=== PATIENT | male | born 1950 | race Caucasian/White ===

== ENCOUNTER → 2019-05-04 11:35 | Outpatient (CLI) | payer MEDICARE, BC, SELFPAY ==
[2019-05-04 08:56] VITALS: BMI 42.7
[2019-05-04 12:11] LABS: Absolute Lymphocyte Count 2.51 X10^3/uL (0.83-4.51); Basophil# 0.07 X10^3/uL; Basophil% 0.9 % (0-1); Eosinophil# 0.33 X10^3/uL; Eosinophils% 4.3 % (0-5); Hematocrit 47.7 % (40-54); Hemoglobin 15.7 g/dL (13.0-16.5); Lymphocyte # 2.51 X10^3/ul (4.0); Lymphocyte % 32.7 % (19-41); Mean Corp Hgb Conc 32.9 g/dL (32-36); Monocyte# 0.69 X10^3/uL; NRBC Flagged by Analyzer 0 % (0-5); Neutrophil # 4.02 X10^3/uL (2.7-7.7); Neutrophil % 52.4 % (47-70); Platelet Count 195 K/mm3 (150-450); RBC Distribution Width CV 13.7 % (11.6-14.6); RBC Distribution Width SD 46.2 fl (35.1-43.9); Red Blood Count 5.24 M/mm3 (4.6-6.2); White Blood Count 7.7 K/mm3 (4.4-11.0)
[2019-05-07 05:06] LABS: Alternaria alternata <0.10 kU/L (Class 0); Bermuda Grass <0.10 kU/L (Class 0); Bluegrass, Kentucky <0.10 kU/L (Class 0); Cat Hair/Dander, Standard <0.10 kU/L (Class 0); D farinae Mite <0.10 kU/L (Class 0); D pteronyssinus <0.10 kU/L (Class 0); Dog Epithelia <0.10 kU/L (Class 0); Elm, American White <0.10 kU/L (Class 0); Oak, White <0.10 kU/L (Class 0); Plantain, English <0.10 kU/L (Class 0); Ragweed, Short/Common <0.10 kU/L (Class 0)
[2019-05-07 13:50] LABS: Mouse Urine <0.10 kU/L (Class 0)
[2019-05-07 20:07] LABS: Aspirgillus flavus Negative (Neg:<1:1); Aspirgillus fumigatus Negative (Neg:<1:1); Aspirgillus niger Negative (Neg:<1:1)
[2019-05-08 09:08] LABS: Immunoglobulin E 13 IU/mL (6-495)
== END ==
PROVIDERS: Family Provider Internal Medicine; PCP Internal Medicine; Referring Provider Nurse Practitioner Acute Care; Visit Provider Nurse Practitioner Acute Care
DX: J45.909 Unspecified asthma, uncomplicated (principal); Z68.41 Body mass index [BMI] 40.0-44.9, adult
CPT/HCPCS: 36415; 82785; 85025; 86003; 86606

== ENCOUNTER → 2019-05-13 10:52 | Outpatient (CLI) | payer MEDICARE, BC, SELFPAY ==
[2019-05-13 10:06] VITALS: BMI 42.7
[2019-05-13 10:54] LABS: Bacteria 0 SEEN /hpf (None Seen); Mucous, Urine 0 SEEN /hpf (<or=2+); Red Blood Cells-Urine 0 SEEN /hpf (0-5); Squamous Epithelial Cells - UA 0 SEEN /hpf (0-5); White Blood Cells 0 SEEN /hpf (0-5)
--- NOTE | 2019-05-13 11:26 | EKG12_ITS ---
Test Reason : ROUTINE Blood Pressure : / mmHG Vent. Rate : 066 BPM Atrial Rate : 066 BPM P-R Int : 164 ms QRS Dur : 112 ms QT Int : 396 ms P-R-T Axes : 057 037 018 degrees QTc Int : 415 ms Normal sinus rhythm Incomplete right bundle branch block Borderline ECG Confirmed by JEFFY DEAN, BARRY ([id number]), school photograph editor TERESA ESTRELLA ([id number]) on 05/17/2019 2:43:43 PM Referred By: Justin Massey Confirmed By:BARRY BARDALES MD
[2019-05-13 12:42] LABS: Absolute Neutrophil Count 5.9 X10^3/uL (2.0-7.7); Basophil# 0.08 X10^3/uL; Basophil% 0.8 % (0-1); Eosinophil# 0.37 X10^3/uL; Eosinophils% 3.8 % (0-5); Hematocrit 49.9 % (40-54); Hemoglobin 15.7 g/dL (13.0-16.5); Lymphocyte % 24.4 % (19-41); Mean Corp Hgb Conc 31.5 g/dL (32-36); Mean Corpuscular Hgb 29.5 pg (27.0-32.0); Mean Corpuscular Volume 93.8 fL (80-94); Mean Platelet Vol. 10.3 fl (6.2-12.0); Monocyte# 0.97 X10^3/uL; Monocyte% 9.8 % (0-10); NRBC Flagged by Analyzer 0 % (0-5); Neutrophil % 59.9 % (47-70); Platelet Count 216 K/mm3 (150-450); RBC Distribution Width CV 14.1 % (11.6-14.6); RBC Distribution Width SD 48.2 fl (35.1-43.9); Red Blood Count 5.32 M/mm3 (4.6-6.2); White Blood Count 9.9 K/mm3 (4.4-11.0)
[2019-05-13 13:16] LABS: Color, Urine Yellow (Yellow); Glucose, Dipstick Normal (Normal); Ketone-Dipstick Negative (Negative); Leukocyte Esterase-Dipstick Negative /ul (Negative); Nitrite-Dipstick Negative (Negative); Occult Blood-Urine Negative /ul (Negative); Protein-Dipstick 15 mg/dl (Negative); Urine Bilirubin Dipstick Negative (Negative); Urine Clarity Clear (Clear); Urine Urobilinogen Normal (Normal)
[2019-05-13 13:42] LABS: ALB/GLOB Ratio 1.1 RATIO (0.9-2.4); AST(SGOT) 26 U/L (15-37); Alanine Aminotransfer ALT/SGPT 48 U/L (16-61); Albumin, Serum 3.9 g/dL (3.2-5.0); Alkaline Phosphatase 88 U/L (45-117); Anion Gap 8 (5-15); BUN 22 mg/dL (7-18); BUN/Creat Ratio 18.3 RATIO (10-20); Calcium,Total 9.6 mg/dL (8.5-10.1); Chloride 102 mmol/L (98-107); Cholesterol 172 mg/dL (200); EST Glomerular Filtration Rate 64 mL/min (>60); Est Glom Filt Rate - Afr Amer 78 mL/min (>60); Globulin 3.6 g/dL (2.2-4.2); Glucose 78 mg/dL (74-106); High Density Lipoprotein 48 mg/dL; Potassium 4.1 mmol/L (3.5-5.1); Protein, Total 7.5 g/dL (6.4-8.2); Sodium Level 139 mmol/L (136-145); Triglycerides 192 mg/dL; Uric Acid 4.7 mg/dL (3.5-7.2); Very Low Density Lipoprotein 38 mg/dL (5-40)
[2019-05-13 15:02] LABS: Hemoglobin A1c 5.9 % (4.2-6.3)
== END ==
PROVIDERS: Family Provider Internal Medicine; PCP Internal Medicine; Referring Provider Internal Medicine; Visit Provider Internal Medicine
DX: I10 Essential (primary) hypertension (principal); K21.9 Gastro-esophageal reflux disease without esophagitis; R73.03 Prediabetes; M10.9 Gout, unspecified
CPT/HCPCS: 36415; 80053; 80061; 81001; 83036; 84550; 85025; 93005

== ENCOUNTER → 2019-05-24 07:08 | Outpatient (CLI) | payer MEDICARE, BC, SELFPAY ==
[2019-05-04 08:56] VITALS: BMI 42.7
[2019-05-13 10:06] VITALS: BMI 42.7
--- NOTE | 2019-05-25 09:51 | PFT ---
INTRODUCTION: The patient is a 68-year-old male that presents for pulmonary function studies secondary to a diagnosis of asthma. Respiratory therapy reports good patient effort. Bronchodilators were used during testing. INTERPRETATION: Forced expiration spirometry demonstrates no evidence of a large airways obstructive ventilatory defect. There was no significant response to aerosolized bronchodilators. Spirograms are of good quality but do not plateau indicating slow emptying of the lungs. Body plethysmography was performed and reveals lung volumes to be within normal limits. Diffusing capacity by single breath CO was also within normal limits at 88% of predicted. IMPRESSION: Normal spirometry, lung volumes and diffusing capacity.
== END ==
PROVIDERS: Family Provider Internal Medicine; PCP Internal Medicine; Referring Provider Nurse Practitioner Acute Care; Visit Provider Nurse Practitioner Acute Care
DX: J45.909 Unspecified asthma, uncomplicated (principal)
CPT/HCPCS: 94060; 94726; 94729

== ENCOUNTER → 2019-05-30 20:04 | Outpatient (CLI) | payer MEDICARE, BC, SELFPAY ==
[2019-05-04 08:56] VITALS: BMI 42.7
== END ==
PROVIDERS: Family Provider Internal Medicine; PCP Internal Medicine; Referring Provider Nurse Practitioner Acute Care; Visit Provider Nurse Practitioner Acute Care
DX: G47.33 Obstructive sleep apnea (adult) (pediatric) (principal)
CPT/HCPCS: 95811

== ENCOUNTER → 2019-06-22 09:18 | Outpatient (CLI) | payer MEDICARE, BC, SELFPAY ==
[2019-06-22 08:45] VITALS: BMI 42.3
[2019-06-22 12:43] LABS: PSA,Total - Annual Screen 0.29 ng/mL (0.00-4.00)
== END ==
PROVIDERS: Family Provider Internal Medicine; PCP Internal Medicine; Visit Provider Internal Medicine
DX: N40.0 Benign prostatic hyperplasia without lower urinary tract symptoms (principal)
CPT/HCPCS: 36415; 84153; G0103

== ENCOUNTER → 2019-07-20 10:19 | Outpatient (CLI) | payer MEDICARE, BC, SELFPAY ==
[2019-07-20 09:29] VITALS: BMI 42.3
[2019-07-20 10:51] LABS: Absolute Lymphocyte Count 2.31 X10^3/uL (0.83-4.51); Absolute Neutrophil Count 4.3 X10^3/uL (2.0-7.7); Basophil# 0.03 X10^3/uL; Basophil% 0.4 % (0-1); Eosinophil# 0.15 X10^3/uL; Hematocrit 48.1 % (40-54); Hemoglobin 15.5 g/dL (13.0-16.5); Lymphocyte # 2.31 X10^3/ul (4.0); Lymphocyte % 30.4 % (19-41); Mean Corp Hgb Conc 32.2 g/dL (32-36); Mean Corpuscular Hgb 29.5 pg (27.0-32.0); Mean Corpuscular Volume 91.4 fL (80-94); Mean Platelet Vol. 10.1 fl (6.2-12.0); Monocyte# 0.81 X10^3/uL; Monocyte% 10.7 % (0-10); NRBC Flagged by Analyzer 0 % (0-5); Neutrophil # 4.26 X10^3/uL (2.7-7.7); Neutrophil % 56.1 % (47-70); Platelet Count 200 K/mm3 (150-450); RBC Distribution Width CV 13.4 % (11.6-14.6); RBC Distribution Width SD 45.1 fl (35.1-43.9); Red Blood Count 5.26 M/mm3 (4.6-6.2); White Blood Count 7.6 K/mm3 (4.4-11.0)
== END ==
PROVIDERS: Family Provider Internal Medicine; PCP Internal Medicine; Referring Provider Nurse Practitioner Acute Care; Visit Provider Nurse Practitioner Acute Care
DX: D72.1 Eosinophilia (principal)
CPT/HCPCS: 36415; 85025

== ENCOUNTER → 2019-08-23 09:45 | Outpatient (CLI) | payer MEDICARE, BC, SELFPAY ==
[2019-07-20 09:29] VITALS: BMI 42.3
[2019-08-23 09:52] VITALS: BP 136/66; PULSE 83; RESP 18; TEMP 36.1; O2SAT 92; BMI 44.1
[2019-08-23] MEDS: Mepolizumab 100 MG VIAL SQ (10:14)
[2019-08-23 12:26] VITALS: BP 126/76; RESP 62
== END ==
PROVIDERS: PCP Internal Medicine; Referring Provider Nurse Practitioner Acute Care; Visit Provider Nurse Practitioner Acute Care
DX: J45.50 Severe persistent asthma, uncomplicated (principal)
CPT/HCPCS: 96372; J2182

== ENCOUNTER → 2019-09-20 | Outpatient (CLI) | payer MEDICARE, BC, SELFPAY ==
[2019-08-23 09:52] VITALS: BMI 44.1
[2019-08-25 07:32] VITALS: BMI 44.6
[2019-09-20 10:04] VITALS: BP 139/63; PULSE 91; RESP 18; TEMP 36.1; O2SAT 93; BMI 43.7
[2019-09-20] MEDS: Mepolizumab 100 MG VIAL SQ (10:09)
[2019-09-20 10:37] VITALS: BP 126/64; PULSE 75; RESP 16; TEMP 36.3; O2SAT 94
== END | disposition home or self-care (01) ==
LOC: MEDOUTP 09:56
PROVIDERS: PCP Internal Medicine; Referring Provider Nurse Practitioner Acute Care; Visit Provider Nurse Practitioner Acute Care
DX: J45.50 Severe persistent asthma, uncomplicated (principal)
CPT/HCPCS: 96372; J2182

== ENCOUNTER → 2019-10-17 15:21 | Outpatient (CLI) | payer MEDICARE, BC, SELFPAY ==
[2019-08-25 07:32] VITALS: BMI 44.6
[2019-10-14 14:37] VITALS: BMI 43.7
[2019-10-17 15:36] VITALS: BP 133/67; PULSE 92; RESP 16; TEMP 36.1; O2SAT 100; BMI 44.4
[2019-10-17] MEDS: Mepolizumab 100 MG VIAL SQ (15:42)
== END ==
PROVIDERS: PCP Internal Medicine; Referring Provider Nurse Practitioner Acute Care; Visit Provider Nurse Practitioner Acute Care
DX: J45.50 Severe persistent asthma, uncomplicated (principal)
CPT/HCPCS: 96372; J2182

== ENCOUNTER → 2019-11-01 09:00 | Outpatient (CLI) | payer MEDICARE, BC, SELFPAY ==
[2019-10-04 13:35] VITALS: BMI 43.7
[2019-10-17 15:36] VITALS: BMI 44.4
--- NOTE | 2019-11-01 09:02 | ECHOCS_ITS ---
Reason For Study: SOB Procedure This was a 2D Doppler, Color Flow transthoracic echocardiogram. The study was technically difficult. Contrast injection was performed. Exam performed in department. Left Ventricle Normal LV size. Left ventricular systolic function is normal. The estimated ejection fraction is 65 %. No evidence for diastolic dysfunction. No regional wall motion abnormalities noted. Right Ventricle Normal RV size. Normal systolic function. Atria Normal left atrium. Normal right atrium. No doppler evidence for ASD. Mitral Valve There is no mitral annular calcification. Mild focal mitral valve calcification of the anterior leaflet. Tricuspid Valve Normal tricuspid valve. Trivial tricuspid valve insufficiency. Unable to estimate RV systolic pressure/pulmonary artery pressure due to technically difficult study. Aortic Valve Trisinus/trileaflet aortic valve. Normal aortic valve. Pulmonic Valve The pulmonic valve is not well visualized. Great Vessels Normal sized aortic root. Pericardium/Pleural No pericardial effusion. Medication 22 gauge I.V. with prn adaptor inserted into right arm. Diluted definity 2ml given slow IV push to enhance endocardial definition. MMode/2D Measurements & Calculations LVIDd: 5.2 cm IVSd: 1.4 cm Ao root diam: 3.8 cm LVIDs: 2.5 cm LVPWd: 0.97 cm FS: 50.7 % LAV(MOD-bp): 46.7 ml LA A4 area: 15.0 cm2 LA dimension(2D): 3.3 cm LAV(MOD-bp) Indexed: 18.6 ml/m2 LAV(MOD-sp2): 55.8 ml LAV(MOD-sp4): 37.3 ml RA A4 area: 14.5 cm2 Doppler Measurements & Calculations MV E max raji: 70.7 cm/sec Lat Peak E' Raji: 8.4 cm/sec Med Peak E' Raji: 8.1 cm/sec MV A max raji: 94.1 cm/sec E/E' lat: 8.4 E/E' med: 8.7 MV E/A: 0.75 Ao V2 max: 143.3 cm/sec LV V1 max: 113.2 cm/sec PA V2 max: 107.7 cm/sec Ao max P.2 mmHg LV V1 max P.1 mmHg Interpretation Summary The study was technically difficult. Contrast injection was performed. Left ventricular systolic function is normal. The estimated ejection fraction is 65 %. Mild focal mitral valve calcification of the anterior leaflet. Trivial tricuspid valve insufficiency. Unable to estimate RV systolic pressure/pulmonary artery pressure due to technically difficult study. No evidence for diastolic dysfunction. Ordering Physician: Justin Massey Referring Physician: Justin Massey Performed By: Rossy Canela RDCS
== END ==
PROVIDERS: PCP Internal Medicine; Referring Provider Internal Medicine; Visit Provider Internal Medicine
DX: R06.02 Shortness of breath (principal); R05 Cough; R60.0 Localized edema
CPT/HCPCS: 93306; Q9957; A4216; C8929

== ENCOUNTER → 2019-11-14 15:23 | Outpatient (CLI) | payer MEDICARE, BC, SELFPAY ==
[2019-10-14 14:37] VITALS: BMI 43.7
[2019-10-17 15:36] VITALS: BMI 44.4
[2019-11-14 15:29] VITALS: BP 161/89; PULSE 86; RESP 16; TEMP 36.7; BMI 43.7
[2019-11-14] MEDS: Mepolizumab 100 MG VIAL SQ (15:49)
[2019-11-14 16:15] VITALS: BP 131/79; PULSE 78
== END ==
PROVIDERS: PCP Internal Medicine; Referring Provider Nurse Practitioner Acute Care; Visit Provider Nurse Practitioner Acute Care
DX: J45.50 Severe persistent asthma, uncomplicated (principal)
CPT/HCPCS: 96372; J2182

== ENCOUNTER → 2019-11-21 | Outpatient (CLI) | payer MEDICARE, BC, SELFPAY ==
[2019-11-14 15:29] VITALS: BMI 43.7
[2019-11-21 15:52] LABS: Anion Gap 5 (5-15); BUN 18 mg/dL (7-18); BUN/Creat Ratio 17.6 RATIO (10-20); Calcium,Total 9.3 mg/dL (8.5-10.1); Chloride 107 mmol/L (98-107); Creatinine, Serum 1.02 mg/dL (0.70-1.30); EST Glomerular Filtration Rate 77 mL/min (>60); Est Glom Filt Rate - Afr Amer 93 mL/min (>60); Glucose 101 mg/dL (74-106); Potassium 3.8 mmol/L (3.5-5.1); Sodium Level 140 mmol/L (136-145)
== END | disposition home or self-care (01) ==
LOC: LABSPEC 14:22
PROVIDERS: PCP Internal Medicine; Referring Provider Internal Medicine; Visit Provider Internal Medicine
DX: I10 Essential (primary) hypertension (principal)
CPT/HCPCS: 80048

== ENCOUNTER → 2019-12-01 15:08 | Outpatient (CLI) | payer MEDICARE, BC, SELFPAY ==
[2019-12-01 09:50] VITALS: BMI 43.7
[2019-12-05 20:07] LABS: ANTINUCLEAR ANTIBODIES DIRECT Positive (Negative); Anti-Centromere B Ab <0.2 AI (0.0-0.9); Anti-Chromatin <0.2 AI (0.0-0.9); Anti-Jo <0.2 AI (0.0-0.9); Anti-Scleroderma-70 AB <0.2 AI (0.0-0.9); Cytoplasmic Ab (C-ANCA) <1:20 titer (Neg:<1:20); RNP Ab <0.2 AI (0.0-0.9); SJOGREN'S Anti-SS-A test < 0.2 AI (0.0-0.9); Smith Ab <0.2 AI (0.0-0.9)
[2019-12-06 01:11] LABS: Anti-dsDNA Ab <1 IU/mL (0-9); Perinuclear Ab (P-ANCA) <1:20 titer (Neg:<1:20)
== END ==
PROVIDERS: PCP Internal Medicine; Referring Provider Nurse Practitioner Acute Care; Visit Provider Nurse Practitioner Acute Care
DX: D72.1 Eosinophilia (principal)
CPT/HCPCS: 36415; 86038; 86225; 86235; 86256

== ENCOUNTER → 2019-12-12 | Outpatient (CLI) | payer MEDICARE, BC, SELFPAY ==
[2019-10-17 15:36] VITALS: BMI 44.4
[2019-12-01 09:50] VITALS: BMI 43.7
[2019-12-12 15:34] VITALS: BP 136/73; PULSE 73; RESP 16; TEMP 36.7; BMI 43.3
[2019-12-12] MEDS: Mepolizumab 100 MG VIAL SQ (15:53)
== END | disposition home or self-care (01) ==
LOC: MEDOUTP 15:26
PROVIDERS: PCP Internal Medicine; Referring Provider Nurse Practitioner Acute Care; Visit Provider Nurse Practitioner Acute Care
DX: J45.50 Severe persistent asthma, uncomplicated (principal)
CPT/HCPCS: 96372; J2182

== ENCOUNTER → 2020-01-05 15:24 | Outpatient (CLI) | payer MEDICARE, BC, SELFPAY ==
[2019-12-01 09:50] VITALS: BMI 43.7
[2019-12-12 15:34] VITALS: BMI 43.3
[2020-01-05 15:39] VITALS: BP 146/73; PULSE 78; RESP 16; TEMP 36.2; BMI 43.0
[2020-01-05] MEDS: Mepolizumab 100 MG VIAL SQ ×3 (16:01→16:02)
== END ==
PROVIDERS: PCP Internal Medicine; Referring Provider Nurse Practitioner Acute Care; Visit Provider Nurse Practitioner Acute Care
DX: J45.50 Severe persistent asthma, uncomplicated (principal)
CPT/HCPCS: 96372; J2182

== ENCOUNTER → 2020-02-03 14:50 | Outpatient (CLI) | payer MEDICARE, BC, SELFPAY ==
[2020-01-05 15:39] VITALS: BMI 43.0
[2020-02-03 15:10] VITALS: BP 134/60; PULSE 80; RESP 16; TEMP 35.9; O2SAT 95; BMI 42.3
[2020-02-03] MEDS: Mepolizumab 100 MG VIAL SQ ×3 (15:39)
== END ==
PROVIDERS: PCP Internal Medicine; Referring Provider Nurse Practitioner Acute Care; Visit Provider Nurse Practitioner Acute Care
DX: J45.50 Severe persistent asthma, uncomplicated (principal); M30.1 Polyarteritis with lung involvement [Churg-Strauss]
CPT/HCPCS: 96372; J2182

== ENCOUNTER → 2020-02-22 16:13 | Outpatient (CLI) | payer MEDICARE, BC, SELFPAY ==
[2020-02-22 15:14] VITALS: BMI 42.2
[2020-02-22 17:14] LABS: Absolute Lymphocyte Count 2.48 X10^3/uL (0.83-4.51); Basophil# 0.04 X10^3/uL; Basophil% 0.4 % (0-1); Eosinophil# 0.06 X10^3/uL; Eosinophils% 0.6 % (0-5); Hematocrit 45.5 % (40-54); Hemoglobin 14.6 g/dL (13.0-16.5); Lymphocyte # 2.48 X10^3/ul (4.0); Lymphocyte % 26.6 % (19-41); Mean Corp Hgb Conc 32.1 g/dL (32-36); Mean Corpuscular Hgb 29.3 pg (27.0-32.0); Mean Corpuscular Volume 91.4 fL (80-94); Mean Platelet Vol. 10.2 fl (6.2-12.0); Monocyte# 0.71 X10^3/uL; Monocyte% 7.6 % (0-10); NRBC Flagged by Analyzer 0 % (0-5); Neutrophil % 64.5 % (47-70); Platelet Count 223 K/mm3 (150-450); RBC Distribution Width CV 14.3 % (11.6-14.6); RBC Distribution Width SD 48.1 fl (35.1-43.9); Red Blood Count 4.98 M/mm3 (4.6-6.2); White Blood Count 9.3 K/mm3 (4.4-11.0)
== END ==
PROVIDERS: PCP Internal Medicine; Referring Provider Internal Medicine; Visit Provider Internal Medicine
DX: I10 Essential (primary) hypertension (principal); K21.9 Gastro-esophageal reflux disease without esophagitis
CPT/HCPCS: 36415; 85025

== ENCOUNTER → 2020-03-07 14:45 | Outpatient (CLI) | payer MEDICARE, BC, SELFPAY ==
[2020-01-05 15:39] VITALS: BMI 43.0
[2020-02-23 12:25] VITALS: BMI 42.0
[2020-03-07 14:52] VITALS: BP 144/66; PULSE 74; RESP 16; TEMP 36.3; O2SAT 94; BMI 41.5
[2020-03-07] MEDS: Mepolizumab 100 MG VIAL SQ ×3 (15:23)
== END ==
PROVIDERS: PCP Internal Medicine; Referring Provider Nurse Practitioner Acute Care; Visit Provider Nurse Practitioner Acute Care
DX: J45.50 Severe persistent asthma, uncomplicated (principal)
CPT/HCPCS: 96372; J2182

== ENCOUNTER → 2020-04-09 14:50 | Outpatient (CLI) | payer MEDICARE, BC, SELFPAY ==
[2020-02-03 15:10] VITALS: BMI 42.3
[2020-03-07 14:52] VITALS: BMI 41.5
[2020-04-09 15:15] VITALS: BP 128/70; PULSE 74; RESP 14; TEMP 36.2; O2SAT 95; BMI 41.5
[2020-04-09] MEDS: Mepolizumab 100 MG VIAL SQ ×3 (15:25)
== END ==
PROVIDERS: PCP Internal Medicine; Referring Provider Nurse Practitioner Acute Care; Visit Provider Nurse Practitioner Acute Care
DX: J45.50 Severe persistent asthma, uncomplicated (principal); M30.1 Polyarteritis with lung involvement [Churg-Strauss]
CPT/HCPCS: 96372; J2182

== ENCOUNTER → 2020-05-07 14:45 | Outpatient (CLI) | payer MEDICARE, BC, SELFPAY ==
[2020-03-07 14:52] VITALS: BMI 41.5
[2020-04-09 15:15] VITALS: BMI 41.5
[2020-05-07 14:57] VITALS: BP 147/75; PULSE 93; RESP 16; TEMP 36.4; O2SAT 93; BMI 41.5
[2020-05-07] MEDS: Mepolizumab 100 MG VIAL SQ ×3 (15:11)
[2020-05-07 15:34] VITALS: BP 143/70; PULSE 87; RESP 16; TEMP 36.8; O2SAT 95
[2020-05-07 15:50] VITALS: BP 143/70; PULSE 87; RESP 16; TEMP 36.8; O2SAT 95
== END ==
PROVIDERS: PCP Internal Medicine; Referring Provider Nurse Practitioner Acute Care; Visit Provider Nurse Practitioner Acute Care
DX: J45.50 Severe persistent asthma, uncomplicated (principal)
CPT/HCPCS: 96372; J2182

== ENCOUNTER → 2020-06-04 14:47 | Outpatient (CLI) | payer MEDICARE, BC, SELFPAY ==
[2020-05-25 13:45] VITALS: BMI 42.2
[2020-06-04 14:59] VITALS: BP 145/77; PULSE 80; RESP 16; TEMP 36.3; O2SAT 92; BMI 39.2
[2020-06-04] MEDS: Mepolizumab 100 MG VIAL SQ ×3 (15:34→15:35)
== END ==
PROVIDERS: PCP Internal Medicine; Referring Provider Nurse Practitioner Acute Care; Visit Provider Nurse Practitioner Acute Care
DX: M30.1 Polyarteritis with lung involvement [Churg-Strauss] (principal)
CPT/HCPCS: 96372; J2182

== ENCOUNTER → 2020-06-28 | Outpatient (CLI) | payer MEDICARE, BC, SELFPAY ==
[2020-06-04 14:59] VITALS: BMI 39.2
== END | disposition home or self-care (01) ==
LOC: LABSPEC 17:03
PROVIDERS: PCP Internal Medicine; Referring Provider Nurse Practitioner Acute Care; Visit Provider Nurse Practitioner Acute Care
DX: R05 Cough (principal)
CPT/HCPCS: 87635; C9803; U0003

== ENCOUNTER → 2020-07-09 14:46 | Outpatient (CLI) | payer MEDICARE, BC, SELFPAY ==
[2020-06-04 14:59] VITALS: BMI 39.2
[2020-07-09 15:02] VITALS: BP 136/67; PULSE 69; RESP 16; TEMP 36.2; O2SAT 97
[2020-07-09] MEDS: Mepolizumab 100 MG VIAL SQ ×3 (15:22)
== END ==
PROVIDERS: PCP Internal Medicine; Referring Provider Nurse Practitioner Acute Care; Visit Provider Nurse Practitioner Acute Care
DX: M30.1 Polyarteritis with lung involvement [Churg-Strauss] (principal)
CPT/HCPCS: 96372; J2182

== ENCOUNTER → 2020-08-06 14:50 | Outpatient (CLI) | payer MEDICARE, BC, SELFPAY ==
[2020-06-04 14:59] VITALS: BMI 39.2
[2020-08-06 15:01] VITALS: BP 145/73; PULSE 77; RESP 16; TEMP 36.6; O2SAT 96; BMI 37.3
[2020-08-06] MEDS: Mepolizumab 100 MG VIAL SQ ×3 (15:14)
== END ==
PROVIDERS: PCP Internal Medicine; Referring Provider Nurse Practitioner Acute Care; Visit Provider Nurse Practitioner Acute Care
DX: J45.50 Severe persistent asthma, uncomplicated (principal); M30.1 Polyarteritis with lung involvement [Churg-Strauss]
CPT/HCPCS: 96372; J2182

== ENCOUNTER 2020-09-03 14:49 | Outpatient (CLI) | payer MEDICARE, BC, SELFPAY ==
[2020-06-04 14:59] VITALS: BMI 39.2
[2020-08-23 13:48] VITALS: BMI 37.3
[2020-09-03 15:00] VITALS: BP 157/90; PULSE 66; TEMP 35.8; O2SAT 98; BMI 37.3
[2020-09-03] MEDS: Mepolizumab 100 MG VIAL SQ ×3 (15:29)
[2020-09-03 15:56] VITALS: BP 132/80; PULSE 94; RESP 16; TEMP 36; O2SAT 94
== END 2020-09-03 16:00 | disposition home or self-care (01) ==
LOC: MEDOUTP 14:49
PROVIDERS: PCP Internal Medicine; Referring Provider Nurse Practitioner Acute Care; Visit Provider Nurse Practitioner Acute Care
DX: M30.1 Polyarteritis with lung involvement [Churg-Strauss] (principal)
CPT/HCPCS: 96372; J2182

== ENCOUNTER → 2020-09-19 14:14 | Outpatient (CLI) | payer MEDICARE, BC, SELFPAY ==
[2020-09-19 13:16] VITALS: BMI 37.7
[2020-09-19 17:01] LABS: Absolute Lymphocyte Count 2.23 X10^3/uL (0.83-4.51); Absolute Neutrophil Count 5.5 X10^3/uL (2.0-7.7); Basophil# 0.02 X10^3/uL; Basophil% 0.2 % (0-1); Eosinophil# 0.04 X10^3/uL; Eosinophils% 0.5 % (0-5); Hematocrit 45.1 % (40-54); Hemoglobin 14.2 g/dL (13.0-16.5); Lymphocyte # 2.23 X10^3/ul (4.0); Mean Corp Hgb Conc 31.5 g/dL (32-36); Mean Corpuscular Hgb 29.4 pg (27.0-32.0); Mean Corpuscular Volume 93.4 fL (80-94); Mean Platelet Vol. 10.6 fl (6.2-12.0); Monocyte# 0.78 X10^3/uL; Monocyte% 9.1 % (0-10); NRBC Flagged by Analyzer 0 % (0-5); Neutrophil # 5.48 X10^3/uL (2.7-7.7); Neutrophil % 63.9 % (47-70); Platelet Count 228 K/mm3 (150-450); RBC Distribution Width CV 14.9 % (11.6-14.6); Red Blood Count 4.83 M/mm3 (4.6-6.2); White Blood Count 8.6 K/mm3 (4.4-11.0)
[2020-09-19 17:09] LABS: ALB/GLOB Ratio 1.1 RATIO (0.9-2.4); AST(SGOT) 19 U/L (15-37); Alanine Aminotransfer ALT/SGPT 34 U/L (16-61); Albumin, Serum 3.8 g/dL (3.2-5.0); Alkaline Phosphatase 87 U/L (45-117); Anion Gap 5 (5-15); BUN 15 mg/dL (7-18); BUN/Creat Ratio 16.4 RATIO (10-20); Calcium,Total 9.6 mg/dL (8.5-10.1); Chloride 105 mmol/L (98-107); Cholesterol 121 mg/dL (200); Creatinine, Serum 0.92 mg/dL (0.70-1.30); EST Glomerular Filtration Rate 87 mL/min (>60); Est Glom Filt Rate - Afr Amer 105 mL/min (>60); Globulin 3.4 g/dL (2.2-4.2); Glucose 91 mg/dL (74-106); High Density Lipoprotein 56 mg/dL; Potassium 3.8 mmol/L (3.5-5.1); Protein, Total 7.2 g/dL (6.4-8.2); Sodium Level 139 mmol/L (136-145); Triglycerides 75 mg/dL; Uric Acid 3.9 mg/dL (3.5-7.2); Very Low Density Lipoprotein 15 mg/dL (5-40)
== END ==
PROVIDERS: PCP Internal Medicine; Referring Provider Internal Medicine; Visit Provider Internal Medicine
DX: R23.8 Other skin changes (principal); I10 Essential (primary) hypertension; E78.2 Mixed hyperlipidemia; M10.9 Gout, unspecified
CPT/HCPCS: 36415; 80053; 80061; 84550; 85025

== ENCOUNTER 2020-10-01 14:59 | Outpatient (CLI) | payer MEDICARE, BC, SELFPAY ==
[2020-08-23 13:48] VITALS: BMI 37.3
[2020-09-19 13:16] VITALS: BMI 37.7
[2020-10-01 15:14] VITALS: BP 130/73; PULSE 71; RESP 16; TEMP 36.6; O2SAT 95; BMI 37.7
[2020-10-01] MEDS: Mepolizumab 100 MG VIAL SQ ×3 (15:39→15:40)
== END 2020-10-01 16:30 | disposition home or self-care (01) ==
LOC: MEDOUTP 14:59
PROVIDERS: PCP Internal Medicine; Referring Provider Nurse Practitioner Acute Care; Visit Provider Nurse Practitioner Acute Care
DX: M30.1 Polyarteritis with lung involvement [Churg-Strauss] (principal)
CPT/HCPCS: 96372; J2182

== ENCOUNTER → 2020-11-05 14:48 | Outpatient (CLI) | payer MEDICARE, BC, SELFPAY ==
[2020-11-05 14:53] VITALS: BP 131/68; PULSE 64; RESP 16; TEMP 36.1; O2SAT 94; BMI 37.3
[2020-11-05] MEDS: Mepolizumab 100 MG VIAL SQ ×3 (15:28)
== END ==
PROVIDERS: PCP Internal Medicine; Referring Provider Nurse Practitioner Acute Care; Visit Provider Nurse Practitioner Acute Care
DX: M30.1 Polyarteritis with lung involvement [Churg-Strauss] (principal)
CPT/HCPCS: 96372; J2182

== ENCOUNTER → 2020-12-04 14:48 | Outpatient (CLI) | payer MEDICARE, BC, SELFPAY ==
[2020-11-05 14:53] VITALS: BMI 37.3
[2020-12-04 14:54] VITALS: BP 132/64; PULSE 86; RESP 16; TEMP 36.4; O2SAT 95; BMI 37.3
[2020-12-04] MEDS: Mepolizumab 100 MG VIAL SQ ×3 (15:14)
== END ==
PROVIDERS: PCP Internal Medicine; Referring Provider Nurse Practitioner Acute Care; Visit Provider Nurse Practitioner Acute Care
DX: M30.1 Polyarteritis with lung involvement [Churg-Strauss] (principal)
CPT/HCPCS: 96372; J2182

== ENCOUNTER 2020-12-24 11:34 | Emergency (ER) | payer MEDICARE, BC, SELFPAY ==
[2020-12-19 13:30] VITALS: BMI 37.3
[2020-12-24 11:35] VITALS: BP 132/81; PULSE 82; RESP 18; TEMP 36.1; O2SAT 95; BMI 37.3
--- NOTE | 2020-12-24 11:59 | EKG12_ITS ---
Test Reason : SOB Blood Pressure : / mmHG Vent. Rate : 067 BPM Atrial Rate : 067 BPM P-R Int : 184 ms QRS Dur : 108 ms QT Int : 408 ms P-R-T Axes : 059 013 022 degrees QTc Int : 431 ms Normal sinus rhythm Normal ECG Confirmed by MIRIAM DEAN, ERMELINDA ([id number]), editor department BERKLEY ROSAS ([id number]) on 12/26/2020 9:21:10 AM Referred By: LA Confirmed By:ERMELINDA PINEDA MD
[2020-12-24 12:11] VITALS: PULSE 88; RESP 18
[2020-12-24] MEDS: Ipratropium/Albuterol Sulfate 3 ML AMPUL.NEB INHALATION (12:11)
[2020-12-24] MEDS: Albuterol 2.5 MG/3 ML VIAL.NEB. INHALATION ×3 (12:20)
[2020-12-24 12:21] VITALS: PULSE 80
[2020-12-24 12:30] LABS: Absolute Lymphocyte Count 2.58 X10^3/uL (0.83-4.51); Basophil# 0.04 X10^3/uL; Basophil% 0.5 % (0-1); Eosinophil# 0.08 X10^3/uL; Eosinophils% 0.9 % (0-5); Hematocrit 41.8 % (40-54); Hemoglobin 13.4 g/dL (13.0-16.5); Lymphocyte # 2.58 X10^3/ul (0.83-4.51); Lymphocyte % 30.2 % (19-41); Mean Corp Hgb Conc 32.1 g/dL (32-36); Mean Corpuscular Hgb 29.4 pg (27.0-32.0); Mean Corpuscular Volume 91.7 fL (80-94); Mean Platelet Vol. 9.5 fl (6.2-12.0); Monocyte# 0.76 X10^3/uL; Monocyte% 8.9 % (0-10); NRBC Flagged by Analyzer 0 % (0-5); Neutrophil # 5.03 X10^3/uL (2.7-7.7); Neutrophil % 58.8 % (47-70); Platelet Count 193 K/mm3 (150-450); RBC Distribution Width CV 14.3 % (11.6-14.6); RBC Distribution Width SD 48.6 fl (35.1-43.9); Red Blood Count 4.56 M/mm3 (4.6-6.2); White Blood Count 8.6 K/mm3 (4.4-11.0)
[2020-12-24 12:44] VITALS: O2SAT 99
[2020-12-24 12:49] LABS: Anion Gap 5 (5-15); BUN 16 mg/dL (7-18); BUN/Creat Ratio 16.1 RATIO (10-20); Calcium,Total 9.1 mg/dL (8.5-10.1); Chloride 105 mmol/L (98-107); Creatinine, Serum 0.99 mg/dL (0.70-1.30); EST Glomerular Filtration Rate 79 mL/min (>60); Est Glom Filt Rate - Afr Amer 96 mL/min (>60); Estimated Creatinine Clearance 72.71 ml/min; Glucose 99 mg/dL (74-106); Potassium 3.7 mmol/L (3.5-5.1); Sodium Level 140 mmol/L (136-145)
[2020-12-24 12:59] LABS: Lactic Acid 1.2 mmol/L (0.4-1.9)
--- NOTE | 2020-12-24 13:05 | RAD_ITS ---
STUDY: X-RAY CHEST REASON FOR EXAM: Male, 70 years old. Number cough, wheezing, history of asthma TECHNIQUE: 1 view COMPARISON: 06/25/2020 FINDINGS: There is possible cavitating lesion behind the heart in the left base for which lateral view is needed for better assessment. Otherwise the lung pedroza and costophrenic angles are clear the visualized bones are intact. There is cervical spine fixation. RAD/Chest 1 View (Portable) IMPRESSION: Possible cavitating lesion left base behind patient was asked to back for lateral view. Electronically Signed: Armando Dumont, at 13:43 EDT Tel , Service support ,
--- NOTE | 2020-12-24 13:11 | EX.ED.DYSGE1 ---
HPI History of Present Illness Chief Complaint: General Illness Detail of Chief Complaint: Shortness of breath, wheezing, pulse ox 84% and generalized weakness Informant: patient and spouse/S.O. Onset/Context/Timing Onset: Days (Onset Thursday) Context: Gradual Onset Timing: Continuous (Weakness and shortness of breath has been continuous) and Intermittent (Intermittent low pulse ox reading) Current Severity: Mild Maximum Severity: Moderate Worsened by: Exertion and cough Relieved by: Nothing Associated Symptoms Associated Symptoms: No fever, URI symptoms or ill contacts Narrative Narrative: Patient is a 70-year-old male with history of lung problems who contacted pulmonary who recommend he come to the emergency department because of his respiratory symptoms with intermittent low pulse ox as low as 84%. He denies history of VTE. He denies leg pain, swelling discoloration. He did not feel well prior to traveling to [place] to see grandchildren on Thursday. He does have a cough which is essentially nonproductive. He feels he cannot get it up and would feel better if he could expel sputum. He denies documented fever. He denies rhinorrhea, congestion or postnasal drainage. He denies sore throat. He denies exposure to Covid. Denies loss of taste or smell. He denies decreased hearing or ringing in his ears. He denies headache. He denies photophobia, neck pain or neck stiffness Patient denies chest pain of any type. Patient denies history of coronary artery disease. He denies GI symptoms. He denies urologic symptoms. Prior similar symptoms: Yes Recent Illness/Hospitalization: No PFSH [facility] Medical History Abnormal bruising Arthritis Asthma Asthma BPH (benign prostatic hyperplasia) Chronic sinusitis DDD (degenerative disc disease) Easy bruising Epithelial inclusion cyst Fatigue GERD (gastroesophageal reflux disease) Gout Hay fever Hemorrhoids Hyperlipidemia Hypertension Hypertension Insomnia Lung disease Mixed hyperlipidemia Morbid obesity Obesity (BMI 30-39.9) CARMELLA (obstructive sleep apnea) Pre-diabetes Recurrent kidney stones Umbilical hernia Home Medications sodium chloride 1 applic TOPICAL DAILY 05/18/16 [History Last Taken Unknown] latanoprost 0.005 % eye drops 1 drp OPHTHALMIC QPM 05/04/19 [History Last Taken Unknown] loratadine 10 mg tablet 10 mg PO DAILY #90 tab 07/22/19 [Rx Last Taken Unknown] fluticasone propionate 50 mcg/actuation nasal spray,suspension 2 spray INTRANASAL DAILY #54.6 ml 12/02/19 [Rx Last Taken Unknown] allopurinol 300 mg tablet 300 mg PO DAILY #90 tab 12/29/19 [Rx Last Taken Unknown] irbesartan 150 mg tablet 150 mg PO DAILY #90 tab 12/29/19 [Rx Last Taken Unknown] azelastine 205.5 mcg (0.15 %) nasal spray 1 spray INTRANASAL BID #30 ml 01/17/20 [Rx Last Taken Unknown] montelukast 10 mg tablet 10 mg PO QPM #90 tab 02/23/20 [Rx Last Taken Unknown] mepolizumab 100 mg/mL subcutaneous auto-injector 300 mg SC Q4W 08/23/20 [History Last Taken Unknown] fluticasone propionate 230 mcg-salmeterol 21 mcg/actuation HFA inhaler 2 puff INHALATION BID #36 g 08/27/20 [Rx Last Taken Unknown] omeprazole 40 mg capsule,delayed release 40 mg PO DAILY #90 cap 09/03/20 [Rx Last Taken Unknown] cholecalciferol (vitamin D3) 25 mcg (1,000 unit) capsule 25 mcg PO DAILY 09/19/20 [History Last Taken Unknown] multivitamin 1 tab PO DAILY 09/19/20 [History Last Taken Unknown] tamsulosin 0.4 mg PO DAILY 11/05/20 [History Last Taken Unknown] rosuvastatin 5 mg tablet 2.5 mg PO QODAY tab 12/19/20 [History Last Taken Unknown] albuterol 90 mcg INHALATION PRN PRN 12/24/20 [History Last Taken Unknown] prednisone 60 mg PO DAILY #15 tablet 12/24/20 [Rx Last Taken Unknown] Allergy/AdvReac Type Severity Reaction Status Date / Time lisinopril AdvReac Intermediate cough Verified 12/24/20 11:35 simvastatin AdvReac Intermediate elevated Verified 12/24/20 11:35 liver enzymes Family History Father Cancer Bone Marrow Surgical History History of orthopedic surgery History of tonsillectomy History of tonsillectomy History of Uvula removal History of uvulectomy Previous back surgery S/P correction of deviated nasal septum Social History (Updated 12/24/20 @ 13:[address] Eduard Diaz MD) household members: spouse housing: house Smoking Status: Never smoker alcohol intake: current alcohol intake frequency: a few times a month Alcohol type: beer and wine substance use type: does not use what type of physical activity do you participate in: none ROS ROS ED Constitutional Constitutional ED: Reports sweats; Denies chills, fever(s) or subjective Eyes Eyes: Denies blurry vision or change in vision ENT ENT ED: Denies ear pain, rhinorrhea or sore throat Cardiovascular Cardiovascular: Reports palpitations; Denies chest pain, orthopnea, paroxysmal nocturnal dyspnea or racing heartbeat Respiratory/Chest Respiratory/Chest: Reports dyspnea and dyspnea on exertion; Denies cough, orthopnea, paroxysmal nocturnal dyspnea or sputum Gastrointestinal Gastrointestinal: Denies abdominal pain, diarrhea, nausea or vomiting Genitourinary Genitourinary ED: Denies dysuria, hematuria or urinary frequency Musculoskeletal Musculoskeletal: Denies arthralgias, back pain, myalgias or neck pain Integumentary Denies abscess or rash Neurologic Neurologic: Reports weakness; Denies headache(s) Endocrine Endocrinology: Denies polydipsia, polyphagia or polyuria Allergic/Immunologic Allergic/Immunologic ED: Denies urticaria EXAM Physical Exam Const Vital Signs: 12/24/20 11:35 12/24/20 12:11 12/24/20 12:21 Temperature 96.9 F L Temperature Source Temporal Pulse Rate 82 88 80 Respiratory Rate 18 18 Respiratory Effort Respiratory Depth Respiratory Pattern Normal Normal Blood Pressure 132/81 H Blood Pressure Mean 98 Pulse Ox 95 Oxygen Delivery Method Room Air 12/24/20 12:44 Temperature Temperature Source Pulse Rate Respiratory Rate Respiratory Effort Short of Breath Accessory Muscle Use Respiratory Depth Shallow Respiratory Pattern Tachypnea Blood Pressure Blood Pressure Mean Pulse Ox Oxygen Delivery Method Room Air Positive well nourished and well developed General Appearance ED: well developed and NAD; Negative for cyanotic or diaphoretic HEENT Reports moist mucous membranes HEENT Narrative: Uvula midline. There is no erythema or exudate. There is no angioedema. Ears are normal. Nares patent with no discharge. There is no asymmetry of the face. Eyes PERRL and EOMs intact bilaterally General Eye ED: Negative for pale conjunctiva or scleral icterus Neck no lymphadenopathy, supple and no JVD Neck Narrative: Trachea is midline. There is no expiratory or inspiratory stridor. General: tenderness Chest Wall inspection of chest normal Resp No normal respiratory effort and No clear to auscultation bilaterally Effort and Inspection: Negative for pain with movement Auscultation: rhonchi throughout and diminished lung sounds GI normal to inspection, nondistended, normoactive bowel sounds and non-tender Palpation: soft Back/Spine no CVA tenderness Cervical Spine: Negative for cervical spine tenderness Thoracic Spine / Upper Back: Negative for thoracic spinal tenderness or paraspinal muscle tenderness Extremity normal to inspection Extremity Narrative: Is there is no asymmetry, swelling, discoloration, leg vein distention, palpable cords or tenderness along the distribution of the deep venous system. Neuro oriented x3, CN's II-XII intact bilaterally and no sensory deficits noted Sensorium / Orientation: alert Motor Exam: strength 5/5 throughout Psych mental status grossly normal Skin no rashes or lesions noted and no wounds MDM MDM MDM Narrative Medical decision making narrative: Chest x-rays obtained to rule out pneumonia. Patient was treated with aerosols. Blood work was obtained assess white count H&H. Electrolyte panel was obtained to assess renal function and electrolytes. Patient was informed of his chest x-ray results and laboratory results. He was informed he should use his spacer with his albuterol inhaler. He was informed that 4 to 6 puffs is equivalent to 1 aerosol treatment and may repeat in 15 minutes if needed. Patient was reassessed. He is no longer wheezing and there are no rhonchi or increased expiratory phase. He states he feels much better. Lab Data Labs: Laboratory Results - last 24 hr 12/24/20 12/24/20 12/24/20 12:24 12:24 12:24 WBC 8.6 RBC 4.56 L Hgb 13.4 Hct 41.8 MCV 91.7 MCH 29.4 MCHC 32.1 RDW Std Deviation 48.6 H RDW Coeff of Yareli 14.3 Plt Count 193 MPV 9.5 Immature Gran % (Auto) 0.700 Neut % (Auto) 58.8 Lymph % (Auto) 30.2 [place] % (Auto) 8.9 Eos % (Auto) 0.9 Baso % (Auto) 0.5 Absolute Neuts (auto) 5.0 Absolute Lymphs (auto) 2.58 Nucleated RBC % 0 Sodium 140 Potassium 3.7 Chloride 105 Carbon Dioxide 30.0 Anion Gap 5 BUN 16 Creatinine 0.99 Estim Creat Clear Calc 72.71 Est GFR (MDRD) Af Amer 96 Est GFR (MDRD) Non-Af 79 BUN/Creatinine Ratio 16.1 Glucose 99 Lactic Acid 1.2 Calcium 9.1 Radiography Chest X-Ray - ED: 1 View, Read by ED Physician, Heart, Chronic Changes and - (Hiatal hernia. There is discoid atelectasis left greater than right. Cardiac silhouette and size are normal.) Diagnostic Testing: Radiology Impression Chest X-Ray 12/24/20 13:05 IMPRESSION: Possible cavitating lesion left base behind patient was asked to back for lateral view. Electronically Signed: Armando Tim, at 13:43 EDT Tel , Service support , Chest X-Ray 12/24/20 13:33 IMPRESSION: Normal x-ray examination of the chest. Electronically Signed: Armando Dumont, at 13:44 EDT Tel , Service support , EKG Initial EKG: Attestation: I personally reviewed and interpreted this EKG as follows: Interpretation: Sinus Rhythm (Normal sinus rhythm with ventricular rate of 67. [place] interval 284 ms. Cures duration 108 ms. QT duration 408 ms. [place] is normal. EKG is normal.) Discharge Plan Triage Chief Complaint: General Illness ED Provider: Eduard Diaz Dx/Rx/DC Orders Clinical Impression: Asthma Instructions: ED Inhaler Use Prescriptions: New prednisone 20 MG tablet 60 mg PO DAILY Qty: 15 RF: 0 No Action latanoprost 0.005 % drops 1 drp OPHTHALMIC QPM RF: 0 montelukast 10 mg tablet 10 mg PO QPM Qty: 90 RF: 3 Nucala 100 mg/mL auto-injector 300 mg SC Q4W RF: 0 multivitamin Tablet 1 tab PO DAILY RF: 0 cholecalciferol (vitamin D3) 25 mcg (1,000 unit) capsule 25 mcg PO DAILY RF: 0 rosuvastatin 5 mg tablet 2.5 mg PO QODAY RF: 0 sodium chloride 1 APPLIC ointment 1 applic TOPICAL DAILY RF: 0 tamsulosin 0.4 mg capsule 0.4 mg PO DAILY RF: 0 albuterol 90 mcg/actuation Aerosol 90 mcg INHALATION PRN PRN (Reason: Wheezing) RF: 0 loratadine 10 mg tablet 10 mg PO DAILY Qty: 90 RF: 3 fluticasone propionate 50 mcg/actuation spray,suspension 2 spray INTRANASAL DAILY Qty: 54.6 RF: 3 allopurinol 300 mg tablet 300 mg PO DAILY Qty: 90 RF: 3 irbesartan 150 mg tablet 150 mg PO DAILY Qty: 90 RF: 3 azelastine 0.15 % (205.5 mcg) spray,non-aerosol 1 spray INTRANASAL BID Qty: 30 RF: 11 Advair HFA 230-21 mcg/actuation HFA aerosol inhaler 2 puff INHALATION BID Qty: 36 RF: 6 omeprazole 40 mg capsule,delayed release(DR/EC) 40 mg PO DAILY Qty: 90 RF: 3 Primary Care Provider: Justin Massey Referrals: Justin Massey MD [Primary Care Provider] - Activity Restrictions/Additional Instructions: 1. You should use your spacer with your albuterol treatment. 2. 4 to 6 puffs of your albuterol metered-dose inhaler with spacer is equivalent to an aerosol treatment. You may repeat in 15 minutes if you are having significant shortness of breath. If you remain short of breath you should seek medical attention. Disposition Disposition: Home, self care
--- NOTE | 2020-12-24 13:33 | RAD_ITS ---
STUDY: X-RAY CHEST REASON FOR EXAM: Male, 70 years old. LATERAL VIEW ONLY PER RADIOLOGIST TECHNIQUE: Lateral view COMPARISON: None. FINDINGS: There is no obvious cavitating lesion in the left base. So what is seen in the frontal view is just summation of shadows. RAD/Chest 1 View IMPRESSION: Normal x-ray examination of the chest. Electronically Signed: Armando Dumont, at 13:44 EDT Tel , Service support ,
[2020-12-24 14:33] VITALS: BP 120/68; PULSE 77; RESP 15; O2SAT 96
== END 2020-12-24 14:33 | disposition home or self-care (01) ==
PROVIDERS: Emergency Provider Emergency Medicine; PCP Internal Medicine
DX: J45.909 Unspecified asthma, uncomplicated (principal); I10 Essential (primary) hypertension; E78.2 Mixed hyperlipidemia; R73.03 Prediabetes; N40.0 Benign prostatic hyperplasia without lower urinary tract symptoms; M19.90 Unspecified osteoarthritis, unspecified site; M10.9 Gout, unspecified; E66.01 Morbid (severe) obesity due to excess calories; G47.33 Obstructive sleep apnea (adult) (pediatric); K21.9 Gastro-esophageal reflux disease without esophagitis; Z79.52 Long term (current) use of systemic steroids; Z79.51 Long term (current) use of inhaled steroids; Z79.899 Other long term (current) drug therapy
CPT/HCPCS: 71045; 80048; 83605; 85025; 93005; 94640; 99284

== ENCOUNTER → 2021-01-03 14:51 | Outpatient (CLI) | payer MEDICARE, BC, SELFPAY ==
[2020-11-05 14:53] VITALS: BMI 37.3
[2020-12-31 15:03] VITALS: BMI 38.6
[2021-01-03 15:32] VITALS: BP 122/58; PULSE 67; RESP 18; TEMP 36.2; O2SAT 94; BMI 37.3
[2021-01-03] MEDS: Mepolizumab 100 MG VIAL SQ ×3 (15:40→15:41)
== END ==
PROVIDERS: PCP Internal Medicine; Referring Provider Nurse Practitioner Acute Care; Visit Provider Nurse Practitioner Acute Care
DX: M30.1 Polyarteritis with lung involvement [Churg-Strauss] (principal)
CPT/HCPCS: 96372; J2182

== ENCOUNTER → 2021-01-18 10:49 | Outpatient (CLI) | payer MEDICARE, BC, SELFPAY ==
[2021-01-17 07:47] VITALS: BMI 38.0
[2021-01-23 14:10] LABS: Almond <0.10 kU/L (Class 0); Brazil Nut <0.10 kU/L (Class 0); Cashew <0.10 kU/L (Class 0); Clam <0.10 kU/L (Class 0); Crab <0.10 kU/L (Class 0); Lobster <0.10 kU/L (Class 0); Milk (Cow) 0.12 kU/L (Class 0/I); Pecan <0.10 kU/L (Class 0); Shrimp <0.10 kU/L (Class 0); Walnut, (Food) <0.10 kU/L (Class 0)
[2021-01-23 15:18] LABS: Peanut <0.10 kU/L (Class 0); Yeast <0.10 kU/L (Class 0)
== END ==
PROVIDERS: PCP Internal Medicine; Referring Provider Otolaryngology Otolaryngology/Facial Plastic Surgery; Visit Provider Otolaryngology Otolaryngology/Facial Plastic Surgery
DX: T78.40XA Allergy, unspecified, initial encounter (principal)
CPT/HCPCS: 36415; 86003

== ENCOUNTER → 2021-01-31 15:16 | Outpatient (CLI) | payer MEDICARE, BC, SELFPAY ==
[2020-12-31 15:03] VITALS: BMI 38.6
[2021-01-29 14:28] VITALS: BMI 39.2
[2021-01-31 15:20] VITALS: BP 120/68; PULSE 87; RESP 16; TEMP 35.8; O2SAT 97; BMI 38.0
[2021-01-31] MEDS: Mepolizumab 100 MG VIAL SQ ×3 (15:51→15:52)
== END ==
PROVIDERS: PCP Internal Medicine; Referring Provider Nurse Practitioner Acute Care; Visit Provider Nurse Practitioner Acute Care
DX: M30.1 Polyarteritis with lung involvement [Churg-Strauss] (principal)
CPT/HCPCS: 96372; J2182

== ENCOUNTER → 2021-02-26 14:50 | Outpatient (CLI) | payer MEDICARE, BC, SELFPAY ==
[2021-01-29 14:28] VITALS: BMI 39.2
[2021-02-26 14:57] VITALS: BP 136/60; PULSE 86; RESP 16; TEMP 36.4; O2SAT 96; BMI 37.3
[2021-02-26] MEDS: Mepolizumab 100 MG VIAL SQ ×3 (15:23)
== END ==
PROVIDERS: PCP Internal Medicine; Referring Provider Nurse Practitioner Acute Care; Visit Provider Nurse Practitioner Acute Care
DX: M30.1 Polyarteritis with lung involvement [Churg-Strauss] (principal)
CPT/HCPCS: 96372; J2182

== ENCOUNTER → 2021-03-29 14:56 | Outpatient (CLI) | payer MEDICARE, BC, SELFPAY ==
[2021-03-29 15:03] VITALS: BP 148/74; PULSE 80; RESP 16; TEMP 36.1; O2SAT 94; BMI 38.7
[2021-03-29] MEDS: Mepolizumab 100 MG VIAL SQ ×3 (15:29)
== END ==
PROVIDERS: PCP Internal Medicine; Referring Provider Nurse Practitioner Acute Care; Visit Provider Nurse Practitioner Acute Care
DX: M30.1 Polyarteritis with lung involvement [Churg-Strauss] (principal)
CPT/HCPCS: 96372; J2182

== ENCOUNTER → 2021-04-29 | Outpatient (CLI) | payer MEDICARE, BC, SELFPAY ==
[2021-04-29 14:28] VITALS: BP 133/63; PULSE 92; RESP 18; TEMP 36; O2SAT 99
[2021-04-29] MEDS: Mepolizumab 100 MG VIAL SQ ×3 (14:56)
== END | disposition home or self-care (01) ==
LOC: MEDOUTP 14:22
PROVIDERS: PCP Internal Medicine; Referring Provider Nurse Practitioner Acute Care; Visit Provider Nurse Practitioner Acute Care
DX: M30.1 Polyarteritis with lung involvement [Churg-Strauss] (principal)
CPT/HCPCS: 96372; J2182

== ENCOUNTER → 2021-05-27 14:52 | Outpatient (CLI) | payer MEDICARE, BC, SELFPAY ==
[2021-05-27 15:04] VITALS: BP 146/77; PULSE 63; RESP 16; TEMP 35.9; O2SAT 96
[2021-05-27] MEDS: Mepolizumab 100 MG VIAL SQ ×3 (15:27→15:28)
== END ==
PROVIDERS: PCP Internal Medicine; Referring Provider Nurse Practitioner Acute Care; Visit Provider Nurse Practitioner Acute Care
DX: M30.1 Polyarteritis with lung involvement [Churg-Strauss] (principal)
CPT/HCPCS: 96372; J2182

== ENCOUNTER → 2021-06-24 14:50 | Outpatient (CLI) | payer MEDICARE, BC, SELFPAY ==
[2021-06-24 14:58] VITALS: BP 154/77; PULSE 71; RESP 16; TEMP 35.7; O2SAT 99
[2021-06-24] MEDS: Mepolizumab 100 MG VIAL SQ ×3 (15:20)
== END ==
PROVIDERS: PCP Internal Medicine; Referring Provider Nurse Practitioner Acute Care; Visit Provider Nurse Practitioner Acute Care
DX: M30.1 Polyarteritis with lung involvement [Churg-Strauss] (principal)
CPT/HCPCS: 96372; J2182

== ENCOUNTER 2021-07-19 12:24 | Outpatient (CLI) | payer MEDICARE, BC, SELFPAY ==
[2021-07-19 12:43] VITALS: BP 131/73; PULSE 79; RESP 18; TEMP 36.6; O2SAT 95; BMI 39.2
[2021-07-19] MEDS: Mepolizumab 100 MG VIAL SQ ×3 (12:59→13:00)
[2021-07-19 13:08] VITALS: BP 131/73; PULSE 79; RESP 18; TEMP 36.6; O2SAT 95
== END 2021-07-19 23:59 | disposition short-term general hospital (02) ==
LOC: MEDOUTP 12:25
PROVIDERS: PCP Internal Medicine; Referring Provider Nurse Practitioner Acute Care; Visit Provider Nurse Practitioner Acute Care
DX: M30.1 Polyarteritis with lung involvement [Churg-Strauss] (principal)
CPT/HCPCS: 96372; J2182

== ENCOUNTER 2021-08-16 13:56 | Outpatient (CLI) | payer MEDICARE, BC, SELFPAY ==
[2021-08-16 14:10] VITALS: BP 124/60; PULSE 79; RESP 16; TEMP 35.5; O2SAT 97
[2021-08-16] MEDS: Mepolizumab 100 MG VIAL SQ ×3 (14:21)
== END 2021-08-16 23:59 | disposition home or self-care (01) ==
LOC: MEDOUTP 13:56
PROVIDERS: PCP Internal Medicine; Referring Provider Nurse Practitioner Acute Care; Visit Provider Nurse Practitioner Acute Care
DX: M30.1 Polyarteritis with lung involvement [Churg-Strauss] (principal)
CPT/HCPCS: 96372; J2182

== ENCOUNTER 2021-09-09 15:29 | Outpatient (CLI) | payer MEDICARE, BC, SELFPAY ==
[2021-09-09 16:39] LABS: Absolute Neutrophil Count 6.3 X10^3/uL (2.0-7.7); Basophil# 0.04 X10^3/uL; Basophil% 0.4 % (0-1); Eosinophil# 0.04 X10^3/uL; Eosinophils% 0.4 % (0-5); Hematocrit 45.2 % (40-54); Hemoglobin 15.3 g/dL (13.0-16.5); Lymphocyte % 22.8 % (19-41); Mean Corp Hgb Conc 33.8 g/dL (32-36); Mean Corpuscular Hgb 31.3 pg (27.0-32.0); Mean Corpuscular Volume 92.4 fL (80-94); Mean Platelet Vol. 10.5 fl (6.2-12.0); Monocyte# 0.72 X10^3/uL; Monocyte% 7.8 % (0-10); NRBC Flagged by Analyzer 0 % (0-5); Neutrophil % 68.3 % (47-70); Platelet Count 224 K/mm3 (150-450); RBC Distribution Width CV 14.4 % (11.6-14.6); RBC Distribution Width SD 49.3 fl (35.1-43.9); Red Blood Count 4.89 M/mm3 (4.6-6.2); White Blood Count 9.2 K/mm3 (4.4-11.0)
[2021-09-09 16:56] LABS: Anion Gap 7 (5-15); BUN 20 mg/dL (7-18); BUN/Creat Ratio 18.9 RATIO (10-20); Calcium,Total 9.5 mg/dL (8.5-10.1); Chloride 106 mmol/L (98-107); Creatinine, Serum 1.06 mg/dL (0.70-1.30); EST Glomerular Filtration Rate 74 mL/min (>60); Est Glom Filt Rate - Afr Amer 89 mL/min (>60); Glucose 99 mg/dL (74-106); PSA,Total - Annual Screen 0.25 ng/mL (0.00-4.00); Potassium 3.9 mmol/L (3.5-5.1); Sodium Level 139 mmol/L (136-145)
== END 2021-09-09 23:59 | disposition home or self-care (01) ==
LOC: BIMLAB 15:30
PROVIDERS: PCP Internal Medicine; Referring Provider Internal Medicine; Visit Provider Internal Medicine
DX: I10 Essential (primary) hypertension (principal); J45.50 Severe persistent asthma, uncomplicated; N40.0 Benign prostatic hyperplasia without lower urinary tract symptoms; Z12.5 Encounter for screening for malignant neoplasm of prostate
CPT/HCPCS: 36415; 80048; 84153; 85025; G0103

== ENCOUNTER 2021-09-13 13:21 | Outpatient (CLI) | payer MEDICARE, BC, SELFPAY ==
[2021-09-13 13:32] VITALS: BP 136/68; PULSE 75; RESP 16; TEMP 36.3; O2SAT 94
[2021-09-13] MEDS: Mepolizumab 100 MG VIAL SQ ×3 (13:50)
== END 2021-09-13 23:59 | disposition home or self-care (01) ==
LOC: MEDOUTP 13:21
PROVIDERS: PCP Internal Medicine; Referring Provider Nurse Practitioner Acute Care; Visit Provider Nurse Practitioner Acute Care
DX: M30.1 Polyarteritis with lung involvement [Churg-Strauss] (principal)
CPT/HCPCS: 96372; J2182

== ENCOUNTER 2021-10-16 14:56 | Outpatient (CLI) | payer MEDICARE, BC, SELFPAY ==
[2021-10-16 15:07] VITALS: BP 160/71; PULSE 84; RESP 16; TEMP 35.8; O2SAT 94; BMI 39.7
[2021-10-16] MEDS: Mepolizumab 100 MG VIAL SQ ×3 (15:25→15:26)
[2021-10-16 16:05] VITALS: BP 132/67; PULSE 75; RESP 16; TEMP 35.9; O2SAT 94
== END 2021-10-16 23:59 | disposition home or self-care (01) ==
LOC: MEDOUTP 14:58
PROVIDERS: PCP Internal Medicine; Referring Provider Nurse Practitioner Acute Care; Visit Provider Nurse Practitioner Acute Care
DX: M30.1 Polyarteritis with lung involvement [Churg-Strauss] (principal)
CPT/HCPCS: 96372; J2182

== ENCOUNTER → 2021-11-15 | Outpatient (CLI) | payer MEDICARE, BC, SELFPAY ==
--- NOTE | 2021-11-15 11:06 | RAD_ITS ---
STUDY: X-RAY CHEST REASON FOR EXAM: Male, 70 years old. Cough, wheezing TECHNIQUE: XR Chest 2 Views COMPARISON: 12/24/2020 FINDINGS: There is no demonstrated pleural abnormality. Cervical spine fusion hardware noted. Normal size heart. Normal mediastinum and richard. Normal visualized pulmonary arteries. There is atherosclerotic calcification of the aortic arch with tortuosity. There are diffuse degenerative changes of the visualized thoracic spine. There is degenerative osteoarthritis of the bilateral shoulders. There is no demonstrated abnormality of the visualized soft tissue structures of the upper abdomen. RAD/Chest PA and Lateral IMPRESSION: There are no acute findings. Electronically Signed: Harjinder Mcneal MD at 17:04 EDT ,
[2021-11-15 13:32] VITALS: BP 144/81; PULSE 79; RESP 16; TEMP 36.8; O2SAT 93; BMI 39.4
[2021-11-15] MEDS: Mepolizumab 100 MG VIAL SQ ×3 (13:51→13:52)
== END | disposition home or self-care (01) ==
LOC: MEDOUTP 13:24
PROVIDERS: PCP Internal Medicine; Referring Provider Nurse Practitioner Acute Care; Visit Provider Nurse Practitioner Acute Care
DX: M30.1 Polyarteritis with lung involvement [Churg-Strauss] (principal)
CPT/HCPCS: 71046; 96372; J2182

== ENCOUNTER → 2021-12-13 | Outpatient (CLI) | payer MEDICARE, BC, SELFPAY ==
[2021-12-13 13:30] VITALS: BP 130/76; PULSE 94; RESP 16; TEMP 36.8; O2SAT 97; BMI 40.1
[2021-12-13] MEDS: Mepolizumab 100 MG VIAL SQ ×3 (13:48)
== END | disposition home or self-care (01) ==
LOC: MEDOUTP 13:13
PROVIDERS: PCP Internal Medicine; Referring Provider Nurse Practitioner Acute Care; Visit Provider Nurse Practitioner Acute Care
DX: M30.1 Polyarteritis with lung involvement [Churg-Strauss] (principal)
CPT/HCPCS: 96372; J2182

== ENCOUNTER → 2022-01-13 | Outpatient (CLI) | payer MEDICARE, BC, SELFPAY ==
[2022-01-13 09:06] VITALS: BP 146/80; PULSE 71; RESP 16; TEMP 36.8; O2SAT 96; BMI 40.1
[2022-01-13] MEDS: Mepolizumab 100 MG VIAL SQ ×3 (09:37→09:38)
== END | disposition home or self-care (01) ==
LOC: MEDOUTP 08:56
PROVIDERS: PCP Internal Medicine; Referring Provider Nurse Practitioner Acute Care; Visit Provider Nurse Practitioner Acute Care
DX: M30.1 Polyarteritis with lung involvement [Churg-Strauss] (principal)
CPT/HCPCS: 96372; J2182

== ENCOUNTER → 2022-01-23 | Outpatient (CLI) | payer MEDICARE, BC, SELFPAY ==
--- NOTE | 2022-01-23 11:20 | US_ITS ---
STUDY: SUPERFICIAL ULTRASOUND - LEFT THIGH. REASON FOR EXAM: Male, 71 years old. Left thigh lump, just above knee lateral aspect TECHNIQUE: A superficial ultrasound was performed with real-time and static parrish-scale imaging. COMPARISON: None. FINDINGS: Targeted sonographic evaluation of the mid and distal portion of left thigh at the palpable site. No sonographic abnormality is seen. US/Ext Non Vasc Limited/Soft Tiss IMPRESSION: No sonographic abnormality is seen. Electronically Signed: Francisco J Szymanski MD at 12:49 EDT ,
== END | disposition home or self-care (01) ==
LOC: US 11:19
PROVIDERS: PCP Internal Medicine; Referring Provider Physician Assistant; Visit Provider Physician Assistant
DX: R22.42 Localized swelling, mass and lump, left lower limb (principal)
CPT/HCPCS: 76882

== ENCOUNTER 2022-01-24 21:57 | Emergency (ER) | payer MEDICARE, BC, SELFPAY ==
[2022-01-24 21:58] VITALS: BP 161/73; PULSE 88; RESP 18; TEMP 36.1; O2SAT 99; BMI 40.1
[2022-01-25 00:24] LABS: Absolute Lymphocyte Count 1.71 X10^3/uL (0.83-4.51); Absolute Neutrophil Count 7.2 X10^3/uL (2.0-7.7); Basophil# 0.03 X10^3/uL; Basophil% 0.3 % (0-1); Eosinophil# 0.05 X10^3/uL; Eosinophils% 0.5 % (0-5); Hematocrit 40.3 % (40-54); Hemoglobin 13.1 g/dL (13.0-16.5); Lymphocyte # 1.71 X10^3/ul (0.83-4.51); Lymphocyte % 17.2 % (19-41); Mean Corp Hgb Conc 32.5 g/dL (32-36); Mean Corpuscular Hgb 29.6 pg (27.0-32.0); Mean Corpuscular Volume 91.2 fL (80-94); Mean Platelet Vol. 9.7 fl (6.2-12.0); Monocyte# 0.92 X10^3/uL; Monocyte% 9.3 % (0-10); NRBC Flagged by Analyzer 0 % (0-5); Neutrophil # 7.15 X10^3/uL (2.7-7.7); Platelet Count 210 K/mm3 (150-450); RBC Distribution Width CV 15.2 % (11.6-14.6); RBC Distribution Width SD 50.6 fl (35.1-43.9); Red Blood Count 4.42 M/mm3 (4.6-6.2); White Blood Count 9.9 K/mm3 (4.4-11.0)
[2022-01-25 00:55] LABS: International Normalized Ratio 1.1; Partial Thromboplast Time 31.8 Seconds (24.1-36.2); Prothrombin Time (Protime)PT. 14.1 SECONDS (11.7-14.9)
[2022-01-25 00:57] LABS: Anion Gap 5 (5-15); BUN 23 mg/dL (7-18); BUN/Creat Ratio 17.6 RATIO (10-20); Calcium,Total 9.3 mg/dL (8.5-10.1); Chloride 108 mmol/L (98-107); Creatinine, Serum 1.31 mg/dL (0.70-1.30); EST Glomerular Filtration Rate 58 mL/min (>60); Est Glom Filt Rate - Afr Amer 70 mL/min (>60); Estimated Creatinine Clearance 54.18 ml/min; Glucose 128 mg/dL (74-106); Magnesium 2.1 mg/dL (1.6-2.6); Sodium Level 141 mmol/L (136-145)
--- NOTE | 2022-01-25 01:17 | CT_ITS ---
EXAM: CT ANGIOGRAPHY CHEST WITHOUT AND WITH INTRAVENOUS CONTRAST CLINICAL INDICATION: Hemoptysis TECHNIQUE: Helically acquired angiography images were obtained of the chest without and with intravenous contrast. This CT exam was performed using one or more of the following dose reduction techniques: automated exposure control, adjustment of the mA and/or kV according to patient size, and/or use of iterative reconstruction technique. This report was created using farmhopping report generation technology. MIP reconstructed images were created and reviewed. RADIATION DOSE: CTDIvol = 12.66 mGy, DLP = 616.63 mGy-cmContrast: IV 100mL [id number] COMPARISON: None. FINDINGS: PULMONARY ARTERIES: Unremarkable. Normal in caliber. No evidence of pulmonary embolism. AORTA: See below. GREAT VESSELS OF AORTIC ARCH: Heavily calcified origin of the left subclavian artery with at least moderate to high-grade stenosis near its origin and prominent calcification and at least moderate stenosis at the origin of the left vertebral artery. No aortic aneurysm or dissection. Atherosclerotic calcification of the aorta. LUNGS AND PLEURAL SPACES: Multifocal patchy opacities in the dependent mid left upper lobe and in the left lower lobe, suspicious for multifocal pneumonia. No central airway obstruction. Minimal dependent atelectasis in the right lung base. Mild multifocal groundglass opacities in the right upper and lower lobe. No mass. No pleural effusion or thickening. HEART: Moderate calcifications left coronary arteries. No intracardiac filling defects. No pericardial effusion. No signs of right heart strain, ratio of right ventricle to left ventricle measures less than 1. MEDIASTINUM: Unremarkable. No mediastinal or hilar adenopathy. Esophagus is unremarkable. No hiatal hernia. THYROID: Unremarkable. No thyroid lesions. BONES/JOINTS: Ligamentous ossification center of the thoracic spine. Partially included postoperative changes lower cervical spine. No suspicious lytic or blastic abnormality. CT/CTA Chest W/WO Contrast IMPRESSION: 1. No evidence of PE or aortic aneurysm or dissection. Some of the distal left lower lobe arteries are not well opacified but there is no convincing filling defect. 2. Moderate coronary artery calcifications. 3. Atherosclerotic changes including at least moderate stenosis of proximal left subclavian artery. 4. Patchy bilateral infiltrates, most pronounced in the left lower lobe. Suspected pneumonia. Electronically Signed: Melissa Mckeon MD at 2:10 EDT ,
--- NOTE | 2022-01-25 02:33 | EDS_ITS ---
HPI History of Present Illness Chief Complaint: Cough Narrative Narrative: Patient is a 71-year-old male with past medical history of asthma. He states he typically uses his nebulizer and inhalers to help control symptoms. He reports he travels for work and was just in an airport as well as airplane and after returning home had congestion and cough with increased shortness of breath and that the cough is intermittent blood in it. He states that this is new for him any concern for possible infection because of this and therefore comes in for evaluation [facility] Medical History (Updated 01/25/22 @ 02:[address] Maged Bermudez, DO) Abnormal bruising Arthritis Asthma Asthma BPH (benign prostatic hyperplasia) Cataract Chronic cough Chronic sinusitis DDD (degenerative disc disease) Easy bruising Epithelial inclusion cyst Fatigue Flu vaccine need GERD (gastroesophageal reflux disease) Gout Hay fever Hemorrhoids Hyperlipidemia Hypertension Hypertension Insomnia Lung disease Mixed hyperlipidemia Morbid obesity Obesity (BMI 30-39.9) CARMELLA (obstructive sleep apnea) Pre-diabetes Recurrent kidney stones Umbilical hernia URI (upper respiratory infection) Home Medications mepolizumab 100 mg/mL subcutaneous auto-injector (Nucala) 300 mg subcut Q4W 08/23/20 [History Last Taken Unknown] cholecalciferol (vitamin D3) 25 mcg (1,000 unit) capsule 25 mcg PO DAILY 09/19/20 [History Last Taken Unknown] multivitamin 1 tab PO DAILY 09/19/20 [History Last Taken Unknown] loratadine 10 mg tablet 10 mg PO DAILY #90 tabs 01/15/21 [Rx Last Taken Unknown] ipratropium bromide 42 mcg (0.06 %) nasal spray 1 spray intranasal BID 01/18/21 [History Last Taken Unknown] tiotropium bromide 1.25 mcg/actuation mist for inhalation (Spiriva Respimat) 2 puff inhalation DAILY #4 grams 01/28/21 [Rx Last Taken Unknown] albuterol sulfate 90 mcg/actuation aerosol inhaler (Ventolin HFA) 2 puff inhalation Q4H PRN shortness of breath or wheezing #18 grams 02/26/21 [Rx Last Taken Unknown] montelukast 10 mg tablet 10 mg PO QPM #90 tabs 02/27/21 [Rx Last Taken Unknown] allopurinol 300 mg tablet 300 mg PO DAILY #90 tabs 10/23/21 [Rx Last Taken Unknown] irbesartan 150 mg tablet 150 mg PO DAILY #90 tabs 10/23/21 [Rx Last Taken Unknown] tamsulosin 0.4 mg capsule 0.4 mg PO DAILY #90 caps 10/23/21 [Rx Last Taken Unknown] trazodone 100 mg tablet 100 mg PO QHS PRN insomnia 90 days #40 tabs 10/24/21 [Rx Last Taken Unknown] lansoprazole 30 mg capsule,delayed release (Prevacid) 30 mg PO DAILY #90 caps 11/05/21 [Rx Last Taken Unknown] benzonatate 100 mg capsule 200 mg PO TID PRN cough #30 caps 11/08/21 [Rx Last Taken Unknown] rosuvastatin 5 mg tablet 2.5 mg PO QODAY #90 tabs 11/22/21 [Rx Last Taken Unknown] latanoprost 0.005 % eye drops 1 drp ophthalmic (eye) QPM 12/09/21 [History Last Taken Unknown] sodium chloride 5 % eye ointment 1 applic topical DAILY 12/09/21 [History Last Taken Unknown] albuterol sulfate 2.5 mg/3 mL (0.083 %) solution for nebulization 2.5 mg (3 mL) inhalation Q4H PRN Sob &/Or Wheezing #180 mL 12/31/21 [Rx Last Taken Unknown] fluticasone propionate 230 mcg-salmeterol 21 mcg/actuation HFA inhaler (Advair HFA) 2 puff inhalation Q12H #36 grams 01/02/22 [Rx Last Taken Unknown] doxycycline hyclate 100 mg capsule 100 mg PO BID 10 days #20 caps 01/25/22 [Rx Last Taken Unknown] promethazine 6.25 mg-codeine 10 mg/5 mL syrup 5 ml PO 4X/DAY PRN PRN cough 7 days #140 mL 01/25/22 [Rx Last Taken Unknown] Allergy/AdvReac Type Severity Reaction Status Date / Time lisinopril AdvReac Intermediate cough Verified 01/24/22 22:01 simvastatin AdvReac Intermediate elevated Verified 01/24/22 22:01 liver enzymes Family History Father Cancer Bone Marrow Surgical History History of cataract extraction History of orthopedic surgery History of tonsillectomy History of tonsillectomy History of Uvula removal History of uvulectomy Previous back surgery S/P correction of deviated nasal septum Social History household members: spouse housing: house Smoking Status: Never smoker alcohol intake: current alcohol intake frequency: a few times a month Alcohol type: beer and wine substance use type: does not use what type of physical activity do you participate in: none ROS ROS ED Constitutional Constitutional ED: Denies chills or fever(s) ENT ENT ED: Denies rhinorrhea or sore throat Cardiovascular Cardiovascular: Denies chest pain Respiratory/Chest Respiratory/Chest: Reports cough, sputum and other Details: Positive hemoptysis ; Denies dyspnea Gastrointestinal Gastrointestinal: Denies abdominal pain, diarrhea, nausea or vomiting Genitourinary Genitourinary ED: Denies dysuria Musculoskeletal Musculoskeletal: Denies myalgias Integumentary Denies rash Neurologic Neurologic: Denies headache(s) Hematologic/Lymphatic Hematologic/Lymphatic: Denies easy bleeding or easy bruising EXAM Physical Exam Const Vital Signs: 01/24/22 21:58 01/25/22 00:13 Temperature 97.0 F L Temperature Source Temporal Pulse Rate 88 Respiratory Rate 18 Respiratory Effort Normal Non-Labored Respiratory Depth Normal Respiratory Pattern Normal Blood Pressure 161/73 H Blood Pressure Mean 102 Pulse Ox 99 Oxygen Delivery Method Room Air Positive well nourished and well developed General Appearance ED: well developed HEENT Reports moist mucous membranes HEENT Narrative: No tongue or lip swelling no oral lesions no airway edema or compromise. There is mild cobblestoning noted in the posterior pharynx consistent with sinus drainage but no dried blood or active bleeding noted. Eyes PERRL and EOMs intact bilaterally Neck supple and no JVD Resp normal respiratory effort Resp Narrative: Breath sounds are diminished throughout with diffuse expiratory wheeze and bilateral rhonchi in the bases but no signs of respiratory distress Cardio regular rate and regular rhythm Rate: other Other Details: Radial pulses are plus 2 out of 4 bilaterally are equal and symmetric GI non-tender and non-distended Auscultation: normoactive bowel sounds Palpation: soft Extremity normal to inspection Neuro oriented x3 and CN's II-XII intact bilaterally Sensorium / Orientation: alert Psych mental status grossly normal Skin no rashes or lesions noted MDM MDM MDM Narrative Medical decision making narrative: Patient presented to the ER in no acute respiratory distress and had no signs of hypoxia. With his recent travel in an airplane as well as being exposed to peo ple in an airport there was concern he developed COVID or secondary infection but also possible PE. Secondary to his blood work and a CTA were ordered. Labs revealed no clinically significant findings but CTA did show changes consistent with multifocal pneumonia. At this time he is afebrile he does not have a white count or neutropenia and he is in no acute distress satting in the mid 90s on ro om air. Therefore do not feel there is need for admission. Patient will be placed on antibiotics secondary to the multifocal pneumonia but is otherwise safe for discharge. Lab Data Attestation: I reviewed the patient's lab results. Labs: Laboratory Results - last 24 hr 01/25/22 01/25/22 01/25/22 00:17 00:17 00:17 WBC 9.9 RBC 4.42 L Hgb 13.1 Hct 40.3 MCV 91.2 MCH 29.6 MCHC 32.5 RDW Std Deviation 50.6 H RDW Coeff of Yareli 15.2 H Plt Count 210 MPV 9.7 Immature Gran % (Auto) 0.700 Neut % (Auto) 72.0 H Lymph % (Auto) 17.2 L Grimes % (Auto) 9.3 Eos % (Auto) 0.5 Baso % (Auto) 0.3 Absolute Neuts (auto) 7.2 Absolute Lymphs (auto) 1.71 Nucleated RBC % 0 PT 14.1 INR 1.1 APTT 31.8 Sodium 141 Potassium 4.0 Chloride 108 H Carbon Dioxide 28.0 Anion Gap 5 BUN 23 H Creatinine 1.31 H Estim Creat Clear Calc 54.18 Est GFR (MDRD) Af Amer 70 Est GFR (MDRD) Non-Af 58 L BUN/Creatinine Ratio 17.6 Glucose 128 H Calcium 9.3 Magnesium 2.1 Radiography Diagnostic Testing: Clinical Impression(s) from Imaging Studies Chest CTA 01/25/22 01:17 IMPRESSION: 1. No evidence of PE or aortic aneurysm or dissection. Some of the distal left lower lobe arteries are not well opacified but there is no convincing filling defect. 2. Moderate coronary artery calcifications. 3. Atherosclerotic changes including at least moderate stenosis of proximal left subclavian artery. 4. Patchy bilateral infiltrates, most pronounced in the left lower lobe. Suspected pneumonia. Electronically Signed: Melissa Mckeon MD at 2:10 EDT , Discharge Plan Triage Chief Complaint: Cough ED Provider: Maged Bermudez Dx/Rx/DC Orders Clinical Impression: Multifocal pneumonia, Asthma Instructions: ED Pneumonia (Adult) Prescriptions: New doxycycline hyclate 100 mg capsule 100 mg PO BID 10 Days Qty: 20 0RF promethazine-codeine 6.25-10 mg/5 mL syrup 5 ml PO 4X/DAY PRN PRN (Reason: cough) 7 Days Qty: 140 0RF No Action latanoprost 0.005 % drops 1 drp OPHTHALMIC QPM Label Comments: only right eye Nucala 100 mg/mL auto-injector 300 mg SC Q4W Rx Instructions: administer as three 100 mg injections at separate sites multivitamin Tablet 1 tab PO DAILY cholecalciferol (vitamin D3) 25 mcg (1,000 unit) capsule 25 mcg PO DAILY ipratropium bromide 42 mcg (0.06 %) spray,non-aerosol 1 spray intranasal BID Rx Instructions: administer into each nostril benzonatate 100 mg capsule 200 mg PO TID PRN (Reason: cough) Qty: 30 0RF sodium chloride 5 % ointment 1 applic TOPICAL DAILY Label Comments: right eye only loratadine 10 mg tablet 10 mg PO DAILY Qty: 90 3RF Spiriva Respimat 1.25 mcg/actuation mist 2 puff inhalation DAILY Qty: 4 6RF albuterol sulfate [Ventolin HFA] 90 mcg/actuation HFA aerosol inhaler 2 puff inhalation Q4H PRN (Reason: shortness of breath or wheezing) Qty: 18 6RF montelukast 10 mg tablet 10 mg PO QPM Qty: 90 3RF allopurinol 300 mg tablet 300 mg PO DAILY Qty: 90 3RF irbesartan 150 mg tablet 150 mg PO DAILY Qty: 90 3RF tamsulosin 0.4 mg capsule 0.4 mg PO DAILY Qty: 90 3RF trazodone 100 mg tablet 100 mg PO QHS PRN (Reason: insomnia) 90 Days Qty: 40 1RF lansoprazole [Prevacid] 30 mg capsule,delayed release(DR/EC) 30 mg PO DAILY Qty: 90 3RF rosuvastatin 5 mg tablet 2.5 mg PO QODAY Qty: 90 1RF albuterol sulfate 2.5 mg /3 mL (0.083 %) solution for nebulization 2.5 mg inhalation Q4H PRN (Reason: Sob &/Or Wheezing) Qty: 180 3RF Rx Instructions: J45.9 Asthma Advair HFA 230-21 mcg/actuation HFA aerosol inhaler 2 puff inhalation Q12H Qty: 36 0RF Primary Care Provider: Justin Massey Referrals: Justin Massey MD [Primary Care Provider] - Activity Restrictions/Additional Instructions: Please take your medication as directed to help resolve your infection and return to the ER should you have any further concerns. It is perfectly fine to continue your albuterol inhaler or nebulizer treatments if necessary as well Disposition Disposition: Home, Self Care Discharge Date/Time: 01/25/22 02:52
[2022-01-25] MEDS: Doxycycline 100 MG CAPSULE PO (02:45)
[2022-01-25 02:46] VITALS: BP 162/71; PULSE 81; RESP 18; O2SAT 96
== END 2022-01-25 02:52 | disposition home or self-care (01) ==
PROVIDERS: Emergency Provider Emergency Medicine; PCP Internal Medicine; Visit Provider Emergency Medicine
DX: J18.9 Pneumonia, unspecified organism (principal); E66.01 Morbid (severe) obesity due to excess calories; J45.909 Unspecified asthma, uncomplicated; Z20.822 Contact with and (suspected) exposure to COVID-19; I10 Essential (primary) hypertension; E78.2 Mixed hyperlipidemia; R06.02 Shortness of breath; N40.0 Benign prostatic hyperplasia without lower urinary tract symptoms; M10.9 Gout, unspecified; K21.9 Gastro-esophageal reflux disease without esophagitis; G47.33 Obstructive sleep apnea (adult) (pediatric); Z79.899 Other long term (current) drug therapy
CPT/HCPCS: 71275; 80048; 83735; 85025; 85610; 85730; 87428; 96360; 96361; 99284; J7040; Q9967; A4216

== ENCOUNTER → 2022-02-10 | Outpatient (CLI) | payer MEDICARE, BC, SELFPAY ==
[2022-02-10 08:45] VITALS: BP 134/70; PULSE 68; TEMP 35.5; O2SAT 96
[2022-02-10] MEDS: Mepolizumab 100 MG VIAL SQ ×3 (09:16→09:17)
== END | disposition home or self-care (01) ==
LOC: MEDOUTP 08:40
PROVIDERS: PCP Internal Medicine; Referring Provider Nurse Practitioner Acute Care; Visit Provider Nurse Practitioner Acute Care
DX: M30.1 Polyarteritis with lung involvement [Churg-Strauss] (principal)
CPT/HCPCS: 96372; J2182

== ENCOUNTER → 2022-02-22 | Outpatient (CLI) | payer MEDICARE, BC, SELFPAY | END | disposition home or self-care (01) | LOC: LAB 09:50 | PROVIDERS: PCP Internal Medicine; Referring Provider Otolaryngology Otolaryngology/Facial Plastic Surgery; Visit Provider Otolaryngology Otolaryngology/Facial Plastic Surgery | DX: J32.8 Other chronic sinusitis (principal) | CPT/HCPCS: 87070; 87205 ==

== ENCOUNTER → 2022-03-12 | Outpatient (CLI) | payer MEDICARE, BC, SELFPAY ==
[2022-03-12 08:58] VITALS: BP 129/71; PULSE 71; RESP 16; TEMP 35.9; O2SAT 94; BMI 40.6
[2022-03-12] MEDS: Mepolizumab 100 MG VIAL SQ ×3 (09:44→09:45)
== END | disposition home or self-care (01) ==
PROVIDERS: PCP Internal Medicine; Referring Provider Nurse Practitioner Acute Care; Visit Provider Nurse Practitioner Acute Care
DX: M30.1 Polyarteritis with lung involvement [Churg-Strauss] (principal); J45.901 Unspecified asthma with (acute) exacerbation
CPT/HCPCS: 87070; 87077; 87205; 96372; J2182

== ENCOUNTER → 2022-04-08 | Outpatient (CLI) | payer MEDICARE, BC, SELFPAY ==
--- NOTE | 2022-04-08 10:58 | MRI_ITS ---
STUDY: MRI LOWER EXTREMITY LEFT THIGH WITH AND WITHOUT CONTRAST REASON FOR EXAM: Male, 71 years old. 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 26ML IV CLARISCAN was administered for the contrast portion of the examination. COMPARISON: None. FINDINGS: Normal subcutis adipose space. In particular, there is no evidence of mass at the site of the skin markers. Normal quadriceps, adductor and hamstring muscles. There is a 2 cm oval circumscribed mass of fat intensity without solid contrast enhancement within the distal left vastus lateralis muscle consistent with an intramuscular lipoma. On the coronal images there is a 6.5 cm oval mass of fat intensity within the adductor musculature consistent with another intramuscular lipoma. Also on the coronal image, there is a 3 cm oval mass of fat intensity within the right vastus laterality muscle consistent with an intramuscular lipoma. Normal femur. 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 Electronically Signed: Odin Romo MD at 17:45 EDT ,
[2022-04-08 11:35] LABS: CREATININE FINGERSTICK < 0.9 mg/dL (0.70-1.30); EGFR FINGERSTICK > 60.0000 mL/min (>60)
== END | disposition home or self-care (01) ==
LOC: MRI 10:58
PROVIDERS: PCP Internal Medicine; Visit Provider Internal Medicine
DX: R22.42 Localized swelling, mass and lump, left lower limb (principal)
CPT/HCPCS: 73720; A9575

== ENCOUNTER → 2022-04-11 | Outpatient (CLI) | payer MEDICARE, BC, SELFPAY ==
[2022-04-11 13:59] VITALS: BP 124/62; PULSE 78; RESP 16; O2SAT 92; BMI 41.5
[2022-04-11] MEDS: Mepolizumab 100 MG VIAL SQ ×3 (14:37)
== END | disposition home or self-care (01) ==
LOC: MEDOUTP 13:52
PROVIDERS: PCP Internal Medicine; Referring Provider Nurse Practitioner Acute Care; Visit Provider Nurse Practitioner Acute Care
DX: M30.1 Polyarteritis with lung involvement [Churg-Strauss] (principal)
CPT/HCPCS: 96372; J2182

== ENCOUNTER → 2022-04-24 | Outpatient (CLI) | payer MEDICARE, BC, SELFPAY | END | disposition home or self-care (01) | LOC: LAB.FUTURE 13:21 → LAB 13:22 | PROVIDERS: PCP Internal Medicine; Referring Provider Internal Medicine Critical Care Medicine; Visit Provider Internal Medicine Critical Care Medicine | DX: J45.901 Unspecified asthma with (acute) exacerbation (principal) | CPT/HCPCS: 87070; 87205 ==

== ENCOUNTER → 2022-05-09 | Outpatient (CLI) | payer MEDICARE, BC, SELFPAY ==
[2022-05-09 13:57] VITALS: BP 151/82; PULSE 83; TEMP 35.7; O2SAT 95
[2022-05-09] MEDS: Mepolizumab 100 MG VIAL SQ ×3 (14:23→14:24)
== END | disposition home or self-care (01) ==
LOC: MEDOUTP 13:52
PROVIDERS: PCP Internal Medicine; Referring Provider Nurse Practitioner Acute Care; Visit Provider Nurse Practitioner Acute Care
DX: M30.1 Polyarteritis with lung involvement [Churg-Strauss] (principal)
CPT/HCPCS: 96372; J2182

== ENCOUNTER 2022-06-02 15:49 | Emergency (ER) | payer MEDICARE, BC, SELFPAY ==
[2022-06-02 15:50] VITALS: BP 174/97; PULSE 86; RESP 18; TEMP 36.3; O2SAT 94; BMI 43.1
[2022-06-02 15:51] VITALS: BP 152/109; PULSE 66; RESP 18; TEMP 36.9; O2SAT 94
--- NOTE | 2022-06-02 16:18 | EDS_ITS ---
HPI <CHANTEL Wilson - Last Filed: 06/02/22 22:12> History of Present Illness Chief Complaint: Shortness of Breath Narrative Narrative: Patient presents today with a cough and chest congestion. He states he has been battling lung infections since October of this year. 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 Theodore and was given levofloxacin and prednisone on 05/27/22 for a lung infection due to coughing up brown sputum with what looked like blood. Patient states his sputum is clear now but he still having chest congestion and is using his rescue inhaler much more often. He denies shortness of breath, chest pain, difficulty breathing, wheezing, and fever. Patient also states although he does get some edema in his feet, he has gained about 10 pounds in the past week and a half and feels much more swollen. Patient states he attributes this to being sedentary, eating very poorly, and consuming a lot of salt over the past week or so. [facility] <CHANTEL Wilson - Last Filed: 06/02/22 22:12> [facility] Medical History (Updated 06/02/22 @ 19:37 by CHANTEL Wilson) Abnormal bruising Arthritis Asthma Asthma Bilateral lower extremity edema BPH (benign prostatic hyperplasia) Cataract Chronic cough Chronic sinusitis DDD (degenerative disc disease) Easy bruising Epithelial inclusion cyst Fatigue Flu vaccine need GERD (gastroesophageal reflux disease) Gout Hay fever Hemorrhoids Hyperlipidemia Hypertension Hypertension Insomnia Lung disease Mixed hyperlipidemia Morbid obesity Obesity (BMI 30-39.9) CARMELLA (obstructive sleep apnea) Pre-diabetes Recurrent kidney stones Shortness of breath Umbilical hernia URI (upper respiratory infection) Home Medications mepolizumab 100 mg/mL subcutaneous auto-injector (Nucala) 300 mg subcut Q4W 08/23/20 [History Last Taken Unknown] cholecalciferol (vitamin D3) 25 mcg (1,000 unit) capsule 25 mcg PO DAILY 09/19/20 [History Last Taken Unknown] multivitamin 1 tab PO DAILY 09/19/20 [History Last Taken Unknown] ipratropium bromide 42 mcg (0.06 %) nasal spray 1 spray intranasal BID 01/18/21 [History Last Taken Unknown] albuterol sulfate 90 mcg/actuation aerosol inhaler (Ventolin HFA) 2 puff inhalation Q4H PRN shortness of breath or wheezing #18 grams 02/26/21 [Rx Last Taken Unknown] allopurinol 300 mg tablet 300 mg PO DAILY #90 tabs 10/23/21 [Rx Last Taken Unknown] irbesartan 150 mg tablet 150 mg PO DAILY #90 tabs 10/23/21 [Rx Last Taken Unknown] tamsulosin 0.4 mg capsule 0.4 mg PO DAILY #90 caps 10/23/21 [Rx Last Taken Unknown] trazodone 100 mg tablet 100 mg PO QHS PRN insomnia 90 days #40 tabs 10/24/21 [Rx Last Taken Unknown] lansoprazole 30 mg capsule,delayed release (Prevacid) 30 mg PO DAILY #90 caps 11/05/21 [Rx Last Taken Unknown] benzonatate 100 mg capsule 200 mg PO TID PRN cough #30 caps 11/08/21 [Rx Last Taken Unknown] rosuvastatin 5 mg tablet 2.5 mg PO QODAY #90 tabs 11/22/21 [Rx Last Taken Unknown] latanoprost 0.005 % eye drops 1 drp ophthalmic (eye) QPM 12/09/21 [History Last Taken Unknown] sodium chloride 5 % eye ointment 1 applic topical DAILY 12/09/21 [History Last Taken Unknown] promethazine 6.25 mg-codeine 10 mg/5 mL syrup 5 ml PO 4X/DAY PRN PRN cough 7 days #140 mL 01/25/22 [Rx Last Taken Unknown] albuterol sulfate 2.5 mg/3 mL (0.083 %) solution for nebulization 2.5 mg (3 mL) inhalation Q4H PRN Sob &/Or Wheezing #180 mL 02/05/22 [Rx Last Taken Unknown] levofloxacin 750 mg tablet 750 mg PO DAILY #7 tabs 03/15/22 [Rx Last Taken Unknown] fluticasone propionate 230 mcg-salmeterol 21 mcg/actuation HFA inhaler (Advair HFA) 2 puff inhalation Q12H #3 ea 03/25/22 [Rx Last Taken Unknown] loratadine 10 mg tablet 10 mg PO DAILY #90 tabs 03/25/22 [Rx Last Taken Unknown] montelukast 10 mg tablet 10 mg PO QPM #90 tabs 03/25/22 [Rx Last Taken Unknown] tiotropium bromide 1.25 mcg/actuation mist for inhalation (Spiriva Respimat) 2 puff inhalation DAILY #3 ea 03/25/22 [Rx Last Taken Unknown] levofloxacin 750 mg tablet 750 mg PO DAILY #7 tabs 05/27/22 [Rx Last Taken Unknown] prednisone 10 mg tablet 10 mg PO DAILY #30 tabs 05/27/22 [Rx Last Taken Unknown] prednisone 10 mg tablet 10 mg PO UD #33 tabs 06/02/22 [Rx Last Taken Unknown] Allergy/AdvReac Type Severity Reaction Status Date / Time lisinopril AdvReac Intermediate cough Verified 06/02/22 17:29 simvastatin AdvReac Intermediate elevated Verified 06/02/22 17:29 liver enzymes Family History Father Cancer Bone Marrow Surgical History History of cataract extraction History of orthopedic surgery History of tonsillectomy History of tonsillectomy History of Uvula removal History of uvulectomy Previous back surgery S/P correction of deviated nasal septum Social History household members: spouse housing: house Smoking Status: Former smoker alcohol intake: current alcohol intake frequency: a few times a month Alcohol type: beer and wine substance use type: does not use what type of physical activity do you participate in: none ROS <CHANTEL Wilson - Last Filed: 06/02/22 22:12> ROS ED Constitutional Constitutional ED: Denies chills, fever(s) or sweats Eyes Eyes: Denies change in vision ENT ENT ED: Denies rhinorrhea or sore throat Cardiovascular Cardiovascular: Denies chest pain Respiratory/Chest Respiratory/Chest: Reports chest congestion, cough, difficulty clearing secretions, shortness of breath with exertion and sputum; Denies dyspnea, shortness of breath at rest or tachypnea Gastrointestinal Gastrointestinal: Denies abdominal pain, nausea or vomiting Musculoskeletal Musculoskeletal: Denies myalgias Integumentary Denies abscess, Abrasions or rash Neurologic Neurologic: Denies headache(s) or weakness EXAM <CHANTEL Wilson - Last Filed: 06/02/22 22:12> Physical Exam Const Vital Signs: 06/02/22 15:50 06/02/22 17:30 06/02/22 15:51 Temperature 97.4 F L 98.4 F Temperature Source Temporal Temporal Pulse Rate 86 66 Respiratory Rate 18 18 Respiratory Effort Normal Non-Labored Respiratory Depth Normal Respiratory Pattern Normal Blood Pressure 174/97 H 152/109 H Blood Pressure Mean 122 123 Pulse Ox 94 94 Oxygen Delivery Method Room Air Room Air Room Air 06/02/22 16:51 06/02/22 17:49 Temperature 98.3 F Temperature Source Temporal Pulse Rate 65 67 Respiratory Rate 16 16 Respiratory Effort Respiratory Depth Respiratory Pattern Blood Pressure 150/102 H 128/112 H Blood Pressure Mean 118 117 Pulse Ox 94 96 Oxygen Delivery Method Room Air Room Air Positive obese Nutritional Appearance: obese HEENT Reports moist mucous membranes atraumatic Eyes PERRL and EOMs intact bilaterally Neck supple Resp normal respiratory effort Auscultation: wheezes Cardio regular rate, regular rhythm and no murmurs GI non-tender, non-distended and no masses Palpation: soft Back/Spine normal to inspection Extremity Extremity Narrative: 1+ pitting edema in lower legs bilaterally. Neuro oriented x3 and no sensory deficits noted Sensorium / Orientation: alert Speech: speech normal Gait (Neuro): normal gait Motor Exam: strength 5/5 throughout Psych mental status grossly normal Thought Process: normal thought process Skin no wounds and skin turgor normal Lesions: no lesions Rashes: no rashes <Dr. Eduard Diaz MD - Last Filed: 06/03/22 00:12> Physical Exam Const Vital Signs: 06/02/22 15:50 06/02/22 17:30 06/02/22 15:51 Temperature 97.4 F L 98.4 F Temperature Source Temporal Temporal Pulse Rate 86 66 Respiratory Rate 18 18 Respiratory Effort Normal Non-Labored Respiratory Depth Normal Respiratory Pattern Normal Blood Pressure 174/97 H 152/109 H Blood Pressure Mean 122 123 Pulse Ox 94 94 Oxygen Delivery Method Room Air Room Air Room Air 06/02/22 16:51 06/02/22 17:49 Temperature 98.3 F Temperature Source Temporal Pulse Rate 65 67 Respiratory Rate 16 16 Respiratory Effort Respiratory Depth Respiratory Pattern Blood Pressure 150/102 H 128/112 H Blood Pressure Mean 118 117 Pulse Ox 94 96 Oxygen Delivery Method Room Air Room Air MDM <CHANTEL Wilson - Last Filed: 06/02/22 22:12> [facility] MDM Narrative Medical decision making narrative: Patient is having no difficulty breathing with some wheezing sounds on exam. He has been given a higher dose of prednisone taper for his respiratory symptoms. Patient states he will be seeing his pump house operator next week. He is going to make an effort to walk around more, eat better, eat less salt, elevate feet when sitting, and wear compression stockings during the day. Patient's vitals signs are in normal limits here in the ED. His O2 sat was between 94-96%. I have given him return instructions. I am comfortable with patient discharging home and patient is comfortable with plan. Lab Data Attestation: I reviewed the patient's lab results. Lab results narrative: Electrolytes within normal limits. Troponin within normal limits. Labs: Laboratory Results - last 24 hr 06/02/22 15:58 Sodium 138 Potassium 4.8 Chloride 106 Carbon Dioxide 25.0 Anion Gap 7 BUN 19 H Creatinine 1.08 Estim Creat Clear Calc 65.72 Est GFR (MDRD) Af Amer 87 Est GFR (MDRD) Non-Af 72 BUN/Creatinine Ratio 17.6 Glucose 108 H Calcium 9.3 Total Bilirubin 0.90 AST 42 H ALT 50 Alkaline Phosphatase 72 Troponin I High Sens 7 Total Protein 6.9 Albumin 3.7 Globulin 3.2 Albumin/Globulin Ratio 1.2 Radiography Diagnostic Testing: Clinical Impression(s) from Imaging Studies Chest X-Ray 06/02/22 16:40 IMPRESSION: Normal x-ray examination of the chest. Electronically Signed: Peter Hall MD at 17:27 EST Reading Location ID and State: [address] [place] [address] , Service support , Normal chest x-ray. I reviewed chest x-ray and agree with radiologist impressions. This has also been reviewed by attending ED physician. EKG Initial EKG: Attestation: I personally reviewed and interpreted this EKG as follows: Interpretation: Sinus Rhythm Comments: Exceed [address] elevation. No signs of cardiac ischemia. This has also been reviewed by attending ED physician. <Dr. Eduard Diaz MD - Last Filed: 06/03/22 00:12> [facility] Narrative Medical decision making narrative: Patient is having no difficulty breathing with some wheezing sounds on exam. He has been given a higher dose of prednisone taper for his respiratory symptoms. Patient states he will be seeing his pump house operator next week. He is going to make an effort to walk around more, eat better, eat less salt, elevate feet when sitting, and wear compression stockings during the day. Patient's vitals signs are in normal limits here in the ED. His O2 sat was between 94-96%. I have given him return instructions. I am comfortable with patient discharging home and patient is comfortable with plan. I have personally performed a face to face assessment of the patient and have reviewed the TOMAS Note. I performed a substantive portion of the visit including all aspects of the following. My mahmood findings include: History is remarkable for chronic bronchitis, asthma who presents to be checked out before he was on vacation. He is complaining of congestion. He was sent from the urgent care because of swelling of his extremities. He reports a 7 to 8 pound weight gain over the past week. He also reports shortness of breath when he supine and swelling in his lower extremities. Patient has pitting edema of his feet. There is mild edema of his legs. There is no asymmetry, discoloration and he denies pain. He does admit that he has not been as active. He denies history of congestive heart failure. Exam is obese gentleman in no apparent distress. HEENT exam is unremarkable. Lungs reveal rhonchi and wheezing throughout. There is no egophony. Heart is regular. There is no murmur, gallop or rub. Abdomen soft nontender. He does have pitting edema the lower extremities. There is no neurovascular mise upper lower extremity exam Medical Decision Making need to evaluate for pneumonia versus CHF. Will obtain EKG to rule out acute ischemic changes. EKG revealed no acute ischemic changes. His work-up was unremarkable. There is no hypoalbuminemia or renal dysfunction. Chest x-ray revealed no evidence of heart failure. There is no evidence of pneumonia. The x-ray was in reviewed interpreted by me as negative. Other additions or changes: None Lab Data Labs: Laboratory Results - last 24 hr 06/02/22 15:58 Sodium 138 Potassium 4.8 Chloride 106 Carbon Dioxide 25.0 Anion Gap 7 BUN 19 H Creatinine 1.08 Estim Creat Clear Calc 65.72 Est GFR (MDRD) Af Amer 87 Est GFR (MDRD) Non-Af 72 BUN/Creatinine Ratio 17.6 Glucose 108 H Calcium 9.3 Total Bilirubin 0.90 AST 42 H ALT 50 Alkaline Phosphatase 72 Troponin I High Sens 7 Total Protein 6.9 Albumin 3.7 Globulin 3.2 Albumin/Globulin Ratio 1.2 Radiography Chest X-Ray - ED: Read by ED Physician (Cardiac silhouette size unremarkable. There are some chronic changes noted. There is an AI CD noted. There is no abnormality osseous structures.) Diagnostic Testing: Clinical Impression(s) from Imaging Studies Chest X-Ray 06/02/22 16:40 IMPRESSION: Normal x-ray examination of the chest. Electronically Signed: Peter Hall MD at 17:27 EST Reading Location ID and State: [address] [place] [address] , Service support , Discharge Plan Triage Chief Complaint: Shortness of Breath ED Midlevel Provider: Paige Moore ED Provider: Eduard Diaz Dx/Rx/DC Orders Clinical Impression: Asthma, Bronchospasm, Dependent lymphedema Instructions: ED Lymphedema Prescriptions: New prednisone 10 mg tablet 10 mg PO UD Qty: 33 0RF Rx Instructions: Take 4 tablets daily for 3 days, then 3 daily for 3 days, then 2 daily for 3 days, then 1 a day for 3 days then 1 QOD for 3 doses. No Action latanoprost 0.005 % drops 1 drp OPHTHALMIC QPM Label Comments: only right eye Nucala 100 mg/mL auto-injector 300 mg SC Q4W Rx Instructions: administer as three 100 mg injections at separate sites multivitamin Tablet 1 tab PO DAILY cholecalciferol (vitamin D3) 25 mcg (1,000 unit) capsule 25 mcg PO DAILY ipratropium bromide 42 mcg (0.06 %) spray,non-aerosol 1 spray intranasal BID Rx Instructions: administer into each nostril benzonatate 100 mg capsule 200 mg PO TID PRN (Reason: cough) Qty: 30 0RF sodium chloride 5 % ointment 1 applic TOPICAL DAILY Label Comments: right eye only promethazine-codeine 6.25-10 mg/5 mL syrup 5 ml PO 4X/DAY PRN PRN (Reason: cough) 7 Days Qty: 140 0RF albuterol sulfate [Ventolin HFA] 90 mcg/actuation HFA aerosol inhaler 2 puff inhalation Q4H PRN (Reason: shortness of breath or wheezing) Qty: 18 6RF allopurinol 300 mg tablet 300 mg PO DAILY Qty: 90 3RF irbesartan 150 mg tablet 150 mg PO DAILY Qty: 90 3RF tamsulosin 0.4 mg capsule 0.4 mg PO DAILY Qty: 90 3RF trazodone 100 mg tablet 100 mg PO QHS PRN (Reason: insomnia) 90 Days Qty: 40 1RF lansoprazole [Prevacid] 30 mg capsule,delayed release(DR/EC) 30 mg PO DAILY Qty: 90 3RF rosuvastatin 5 mg tablet 2.5 mg PO QODAY Qty: 90 1RF albuterol sulfate 2.5 mg /3 mL (0.083 %) solution for nebulization 2.5 mg inhalation Q4H PRN (Reason: Sob &/Or Wheezing) Qty: 180 3RF Rx Instructions: J45.9 Asthma levofloxacin 750 mg tablet 750 mg PO DAILY Qty: 7 0RF loratadine 10 mg tablet 10 mg PO DAILY Qty: 90 3RF montelukast 10 mg tablet 10 mg PO QPM Qty: 90 3RF Spiriva Respimat 1.25 mcg/actuation mist 2 puff inhalation DAILY Qty: 3 3RF Advair HFA 230-21 mcg/actuation HFA aerosol inhaler 2 puff inhalation Q12H Qty: 3 3RF levofloxacin 750 mg tablet 750 mg PO DAILY Qty: 7 0RF prednisone 10 mg tablet 10 mg PO DAILY Qty: 30 0RF Rx Instructions: Take 4 tabs PO daily for 3 days, then 3 tabs daily for 3 days, then 2 tabs daily for 3 days, then 1 tab daily for 3 days Primary Care Provider: Digna Ureña Referrals: Digna Ureña MD [Primary Care Provider] - 1 Week Activity Restrictions/Additional Instructions: Return if symptoms worsen or if you develop shortness of breath or difficulty breathing. Disposition Disposition: Home, Self Care Discharge Date/Time: 06/02/22 20:03
--- NOTE | 2022-06-02 16:40 | RAD_ITS ---
STUDY: X-RAY CHEST REASON FOR EXAM: Male, 71 years old. chest congestion TECHNIQUE: Frontal and lateral views of the chest. COMPARISON: CTA chest January 25, 2022. Chest x-ray November 15, 2021 FINDINGS: Cervical hardware noted. The lungs are clear and expanded. There is no demonstrated pleural abnormality. Normal size heart. Normal mediastinum and richard. Normal visualized pulmonary arteries. Normal visualized aortic arch and descending thoracic aorta. Normal visualized thoracic spine. Normal visualized ribs, clavicles, and shoulders. There is no demonstrated abnormality of the visualized soft tissue structures of the upper abdomen. RAD/Chest PA and Lateral IMPRESSION: Normal x-ray examination of the chest. Electronically Signed: Peter Hall MD at 17:27 RUST ,
[2022-06-02 16:51] VITALS: BP 150/102; PULSE 65; RESP 16; TEMP 36.8; O2SAT 94
[2022-06-02 17:30] VITALS: O2SAT 94
--- NOTE | 2022-06-02 17:46 | EKG12_ITS ---
Test Reason : Blood Pressure : / mmHG Vent. Rate : 063 BPM Atrial Rate : 063 BPM P-R Int : 168 ms QRS Dur : 094 ms QT Int : 400 ms P-R-T Axes : 017 001 008 degrees QTc Int : 409 ms Normal sinus rhythm Normal ECG Confirmed by MIRIAM DEAN, ERMELINDA ([id number]), editor trade journal BERKLEY ROSAS ([id number]) on 06/04/2022 8:05:30 AM Referred By: AL Confirmed By:ERMELINDA PINEDA MD
[2022-06-02 17:49] VITALS: BP 128/112; PULSE 67; RESP 16; O2SAT 96
[2022-06-02 18:20] LABS: ALB/GLOB Ratio 1.2 RATIO (0.9-2.4); AST(SGOT) 42 U/L (15-37); Alanine Aminotransfer ALT/SGPT 50 U/L (16-61); Albumin, Serum 3.7 g/dL (3.2-5.0); Alkaline Phosphatase 72 U/L (45-117); Anion Gap 7 (5-15); BUN 19 mg/dL (7-18); BUN/Creat Ratio 17.6 RATIO (10-20); Calcium,Total 9.3 mg/dL (8.5-10.1); Chloride 106 mmol/L (98-107); Creatinine, Serum 1.08 mg/dL (0.70-1.30); EST Glomerular Filtration Rate 72 mL/min (>60); Est Glom Filt Rate - Afr Amer 87 mL/min (>60); Estimated Creatinine Clearance 65.72 ml/min; Globulin 3.2 g/dL (2.2-4.2); Glucose 108 mg/dL (74-106); Potassium 4.8 mmol/L (3.5-5.1); Protein, Total 6.9 g/dL (6.4-8.2); Sodium Level 138 mmol/L (136-145); Troponin-I HS 7 pg/mL (3.0-78.0)
== END 2022-06-02 20:03 | disposition home or self-care (01) ==
PROVIDERS: Physician Assistant; Emergency Provider Emergency Medicine; PCP Internal Medicine; Visit Provider Emergency Medicine
DX: J45.909 Unspecified asthma, uncomplicated (principal); R60.0 Localized edema; I10 Essential (primary) hypertension; I89.0 Lymphedema, not elsewhere classified; E78.2 Mixed hyperlipidemia; R06.02 Shortness of breath; Z79.52 Long term (current) use of systemic steroids; Z87.891 Personal history of nicotine dependence
CPT/HCPCS: 71046; 80053; 84484; 93005; 99283; A4216

== ENCOUNTER → 2022-06-09 | Outpatient (CLI) | payer MEDICARE, BC, SELFPAY ==
[2022-06-09 13:24] VITALS: BP 133/68; PULSE 88; RESP 18; TEMP 36.3; O2SAT 92; BMI 41.3
[2022-06-09] MEDS: Mepolizumab 100 MG VIAL 300 MG SQ (13:44)
== END | disposition home or self-care (01) ==
LOC: MEDOUTP 13:17
PROVIDERS: PCP Internal Medicine; Referring Provider Nurse Practitioner Acute Care; Visit Provider Nurse Practitioner Acute Care
DX: M30.1 Polyarteritis with lung involvement [Churg-Strauss] (principal)
CPT/HCPCS: 96372; J2182

== ENCOUNTER → 2022-06-12 | Outpatient (CLI) | payer MEDICARE, BC, SELFPAY | END | disposition home or self-care (01) | LOC: PSN 10:47 | PROVIDERS: PCP Internal Medicine; Referring Provider Nurse Practitioner Acute Care; Visit Provider Nurse Practitioner Acute Care | DX: J47.9 Bronchiectasis, uncomplicated (principal); J45.50 Severe persistent asthma, uncomplicated | CPT/HCPCS: 94667; 99251; G0463 ==

== ENCOUNTER → 2022-06-16 | Outpatient (CLI) | payer MEDICARE, BC, SELFPAY ==
--- NOTE | 2022-06-18 13:28 | PFT ---
INTRODUCTION: The patient is a 71-year-old male that presents for pulmonary function studies secondary to a diagnosis of asthma. Respiratory therapy reported good patient effort. Bronchodilators were used during testing. INTERPRETATION: Forced expiration spirometry demonstrates no evidence of a large airways obstructive ventilatory defect. There was no significant response to aerosolized bronchodilators. Spirograms are of good quality and plateau normally. Body plus tomography was performed and reveals lung volumes to be within normal limits. Diffusing capacity by single breath CO is also within normal limits. IMPRESSION: Grossly normal pulmonary function studies.
== END | disposition home or self-care (01) ==
LOC: PSN 12:40
PROVIDERS: PCP Internal Medicine; Visit Provider Nurse Practitioner Acute Care
DX: J45.50 Severe persistent asthma, uncomplicated (principal)
CPT/HCPCS: 94060; 94726; 94729

== ENCOUNTER → 2022-07-11 | Outpatient (CLI) | payer MEDICARE, BC, SELFPAY ==
[2022-07-11 13:56] VITALS: BP 148/73; PULSE 86; RESP 18; TEMP 36.5; O2SAT 95; BMI 41.0
[2022-07-11] MEDS: Mepolizumab 100 MG VIAL SQ ×3 (14:15→14:18)
== END | disposition home or self-care (01) ==
LOC: MEDOUTP 13:50
PROVIDERS: PCP Internal Medicine; Referring Provider Nurse Practitioner Acute Care; Visit Provider Nurse Practitioner Acute Care
DX: M30.1 Polyarteritis with lung involvement [Churg-Strauss] (principal)
CPT/HCPCS: 96372; J2182

== ENCOUNTER → 2022-08-08 | Outpatient (CLI) | payer MEDICARE, BC, SELFPAY ==
[2022-08-08 13:32] LABS: Absolute Lymphocyte Count 1.65 X10^3/uL (0.83-4.51); Absolute Neutrophil Count 5.7 X10^3/uL (2.0-7.7); Basophil# 0.04 X10^3/uL; Basophil% 0.5 % (0-1); Eosinophil# 0.06 X10^3/uL; Eosinophils% 0.7 % (0-5); Hematocrit 43.4 % (40-54); Hemoglobin 14.1 g/dL (13.0-16.5); Lymphocyte # 1.65 X10^3/ul (0.83-4.51); Lymphocyte % 19.8 % (19-41); Mean Corp Hgb Conc 32.5 g/dL (32-36); Mean Corpuscular Volume 92.3 fL (80-94); Mean Platelet Vol. 9.7 fl (6.2-12.0); Monocyte% 9.6 % (0-10); NRBC Flagged by Analyzer 0 % (0-5); Neutrophil # 5.72 X10^3/uL (2.7-7.7); Neutrophil % 68.4 % (47-70); Platelet Count 245 K/mm3 (150-450); RBC Distribution Width CV 15.5 % (11.6-14.6); RBC Distribution Width SD 52.8 fl (35.1-43.9); White Blood Count 8.4 K/mm3 (4.4-11.0)
[2022-08-08 13:54] LABS: Anion Gap 9 (5-15); BUN 16 mg/dL (7-18); BUN/Creat Ratio 17.3 RATIO (10-20); Calcium,Total 9.7 mg/dL (8.5-10.1); Chloride 107 mmol/L (98-107); Creatinine, Serum 0.93 mg/dL (0.70-1.30); EST Glomerular Filtration Rate 86 mL/min (>60); Est Glom Filt Rate - Afr Amer 104 mL/min (>60); Glucose 98 mg/dL (74-106); Potassium 3.9 mmol/L (3.5-5.1); Sodium Level 141 mmol/L (136-145)
[2022-08-08] MEDS: Mepolizumab 100 MG VIAL SQ ×3 (13:56)
[2022-08-08 14:01] VITALS: BP 134/69; PULSE 94; RESP 20; TEMP 36.4; O2SAT 95
== END | disposition home or self-care (01) ==
LOC: MEDOUTP 13:04
PROVIDERS: Internal Medicine Cardiovascular Disease; PCP Internal Medicine; Referring Provider Nurse Practitioner Acute Care; Visit Provider Nurse Practitioner Acute Care
DX: M30.1 Polyarteritis with lung involvement [Churg-Strauss] (principal)
CPT/HCPCS: 36415; 80048; 85025; 96372; J2182

== ENCOUNTER → 2022-08-12 | Outpatient (CLI) | payer MEDICARE, BC, SELFPAY ==
--- NOTE | 2022-08-12 13:48 | CT_ITS ---
EXAM: CT CHEST WITHOUT INTRAVENOUS CONTRAST CLINICAL INDICATION: F/U bilateral LL infiltrates TECHNIQUE: Helically acquired images were obtained of the chest without intravenous contrast. This CT exam was performed using one or more of the following dose reduction techniques: automated exposure control, adjustment of the mA and/or kV according to patient size, and/or use of iterative reconstruction technique. This report was created using Leo report generation technology. RADIATION DOSE: CTDIvol = 19.86 mGy, DLP = 827.91 mGy-cm COMPARISON: CTA chest 01/25/2022. FINDINGS: LUNGS AND PLEURAL SPACES: Minimal curvilinear subsegmental atelectases in left posterior lung base. The lungs are otherwise normal. No mass. No pleural effusion or thickening. No pneumothorax. HEART: Unremarkable. Heart size is normal. Normal cardiac size. Prominent calcified plaques along the LAD branch of the left coronary artery. Normal pericardium. MEDIASTINUM: Unremarkable. No mediastinal or hilar adenopathy. Esophagus is unremarkable. No hiatal hernia. THYROID: Unremarkable. No thyroid lesions. BONES/JOINTS: Unremarkable. No suspicious lytic or blastic abnormality. VASCULATURE: Mild atherosclerotic calcifications along the transverse thoracic aorta and descending thoracic aorta. Thoracic aorta is non-dilated. CT/Chest without Contrast IMPRESSION: 1. No acute findings in the chest. 2. Minimal curvilinear subsegmental atelectases in the left posterior lower lobe. 3. Interval clearing of the interstitial infiltrates in the left lower lobe when compared to 01/25/2022. Electronically Signed: Luis Daniel Treviño MD at 14:24 EST ,
== END | disposition home or self-care (01) ==
LOC: CT 13:42
PROVIDERS: PCP Internal Medicine; Visit Provider Internal Medicine Critical Care Medicine
DX: J45.901 Unspecified asthma with (acute) exacerbation (principal); E66.01 Morbid (severe) obesity due to excess calories; G47.33 Obstructive sleep apnea (adult) (pediatric); D72.10 Eosinophilia, unspecified
CPT/HCPCS: 71250

== ENCOUNTER 2022-08-14 11:27 | Observation (INO) | payer MEDICARE, BC, SELFPAY ==
[2022-08-13 09:29] VITALS: BMI 41.5
[2022-08-14] VITALS (10 sets, daily range): BP systolic 107–128; BP diastolic 64–81; PULSE 58–77; RESP 16–18; TEMP 36.6–36.7; O2SAT 92–97
[2022-08-14 08:31] LABS: Blood Gas Specimen Type VEN; VBG BASE EXCESS 1 mmol/L (-1.0-3.5); VBG Bicarbonate 26 mmol/L (22-26); VBG PO2 39 mmHg (25-40); VBG SO2 74 % (50-70); VBG TCO2 28 mmol/L (23-33); VBG pCO2 42.5 mmHg (41-51)
[2022-08-14 08:31] LABS: Base Excess 1 mmol/L (-2 to +2); Bicarbonate 25.6 mmol/L (22-26); Blood Gas Specimen Type ART; PO2 65 mmHG (75-100); SO2 93 % (95-99); Total Carbon Dioxide 27 mmol/L; pCO2 40.5 mmHg (35-45); pH 7.41 (7.35-7.45)
[2022-08-14 08:36] LABS: Blood Gas Specimen Type VEN; VBG BASE EXCESS 2 mmol/L (-1.0-3.5); VBG Bicarbonate 27 mmol/L (22-26); VBG PO2 38 mmHg (25-40); VBG SO2 73 % (50-70); VBG TCO2 28 mmol/L (23-33); VBG pCO2 42.8 mmHg (41-51); VBG pH 7.41 (7.32-7.42)
--- NOTE | 2022-08-14 11:53 | CL.I_ITS ---
Patient Name: JOAQUIN HENDRICKS Study Date: 08/14/2022 Performing: Edinson Padilla MD Ht: 70 inches 177.8 cm : 1950 Wt: 290.4 lbs 131.54 kg Age: 71 Gender: male BSA: 2.44 PROCEDURE(S) PERFORMED IC12-(51104/C9600)ENEDINA W/WO PTCA, SINGLE CORONARY ARTERY CLINICAL PROFILE AND CO-MORBIDITIES Indications: Suspected CAD Heart Failure: None Stress/Imaging Stress/Image Study Performed: No CAD Presentations: Other: SOB CONCLUSIONS Successful ENEDINA to mLAD RECOMMENDATIONS DESCRIPTION OF PROCEDURE The patient arrived to the procedure lab. The risks and benefits of the procedure as well as a full description of our services here and current unavailability of surgical backup were fully explained to the patient and/or their significant other prior to the catheterization. The Timeout was completed, verifying the correct patient and procedure. The patient's procedural site was prepped and draped in the usual fashion. Local anesthetic was given subcutaneously to right brachial region with Lidocaine 2%. Local anesthetic was given subcutaneously to right radial region with Lidocaine 2% Using a modified Seldinger technique,arterial access was obtained via the right radial artery, a 6Fr sheath was inserted.Venous access was obtained via the right brachiocephalic vein, a 7Fr sheath was inserted. A 7Fr thermal dilution catheter was inserted and right heart pressures were recorded, it was then advanced to PA position for cardiac outputs. O2 saturations were then obtained. The Thermal dilution catheter was then removed. Left Coronary Artery selective angiography was performed in multiple views using a 5 Fr. 4.0 [place] catheter. Right Coronary Artery selective angiography was then performed in multiple views using a 5 Fr. JR 5 catheter. Left Coronary Artery selective angiography was performed in multiple views using a 5 Fr. JL3.5 catheter. Left Ventriculography was performed in VICK projection using a 5 Fr. Pigtail catheter. LV to AO pullback pressures were then recorded.The images were reviewed and options discussed. A decision was then made to proceed with an Intervention, IVUS or other adjunct procedure. XB 3.0 Guide catheter was inserted and engaged into the LCA. BMW Guide wire was advanced to the LAD. SC Euphora 3.0x12 Balloon catheter was inserted. SC Euphora 1.5x12 Balloon catheter was inserted. PTCA balloon inflated at 14 atms for 21 secs. PTCA balloon inflated at 14 atms for 14 secs. PTCA balloon inflated at 14 atms for 9 secs. PTCA balloon inflated at 14 atms for 6 secs. PTCA balloon inflated at 14 atms for 8 secs. Angiogram performed post balloon dilatation. SC Euphora 3.0x12 Balloon catheter was inserted. PTCA balloon inflated at 8 atms for 14 secs. PTCA balloon inflated at 8 atms for 17 secs. PTCA balloon inflated at 8 atms for 7 secs. PTCA balloon inflated at 8 atms for 7 secs. Angiogram performed post balloon dilatation. Resolute Darrell 3.0x18 Drug Eluting stent was inserted. Drug Eluting stent was removed intact, failed to cross lesion BMW Guide wire was advanced to the LAD. 6fr Guideliner Guide catheter was inserted and engaged into the LCA. SC Euphora 3.0x12 Balloon catheter was inserted. SC Euphora 2.5x12 Balloon catheter was inserted. PTCA balloon inflated at 8 atms for 17 secs. Resolute Onynx 3.0x18 Drug Eluting stent was inserted. The arterial sheath was pulled and a TR Band was applied for hemostasis w/ 14ml air. The venous sheath was then pulled and manual compression applied until hemostasis achieved INTERVENTION INFORMATION LESION SITE: LAD (Mid) Lesion Complexity: High/C, chronic total occlusion: No, lesion at bifurcation: No, thrombus present: No, lesion length: 16 mm, culprit lesion: Yes, Previously treated lesion: No Pre Stenosis: 80 % Pre intervention PELON flow: 3 PROCEDURE: Drug Eluting Stent with pre dilatation. Post Stenosis: 0 % Post intervention PELON flow: 3 Lesion Devices: Cordis 6 Fr XB3.0 100cm Guide Catheter Bruner .014 190cm BMW Askov Straight Medtronic SC EUPHORA RX 1.5x12 BALLOON Medtronic SC EUPHORA RX 3.0x12 BALLOON Medtronic Resolute [place] RX ENEDINA 3.0x18 [employer] 6 Yoruba GuideLiner Medtronic SC EUPHORA RX 2.5x12 BALLOON COMPLICATIONS No Complications PROCEDURE MEDICATIONS Versed 1 mg IV Fentanyl 50 mcg IV Oxygen: 2 L/min via nasal cannula Aspirin (325mg) 1 Tabs PO 08/14/2022 08:53:26 Brilinta 180 mg PO @ 08/14/2022 08:53:33 Heparin given IA 08/14/2022 08:34:21 Heparin 8000 unit(s) IV 08/14/2022 10:03:58 Heparin 2000 unit(s) IV 08/14/2022 10:43:44 Verapamil 2.5mg, Ntg 100mcgs, 3000 units of Heparin given IA 08/14/2022 08:34:21 IV Bolus: .9 NaCl 100 ml total 08/14/2022 08:37:22 IV Fluids: .9 NaCl IV started @ 100 ml/hr 08/14/2022 08:50:50 SUMMARY OF HEMODYNAMIC DATA Time AIR REST ECG 07:15:17 RA 15/13 (12) SV 08:27:13 RV 23/4, 7 08:28:14 PA 21/10 (16) PA 08:28:37 PW / (13) PV 08:28:49 PA 21/8 (14) 08:32:27 RV 27/4, 8 08:32:38 RA 14/9 (8) 08:32:57 AO 106/58 (76) SA 08:35:34 AO 66/45 (54) 08:37:44 AO 94/51 (70) 08:43:13 LV 102/7, 16 08:50:25 LV 103/5, 17 08:50:33 LV 100/7, 19 08:51:05 LV 99/8, 19 08:51:14 LVp 97/6, 18 08:51:18 AOp 102/57 (77) 08:51:25 AO 107/62 (82) 08:51:36 AO 117/68 (90) 10:05:56 Type SV CO (l/m) CI (l/m/ HR Time AIR REST Thermal 69.20 6.37 2.61 92 07:15:17 Davion 97.00 8.92 3.65 92 07:15:17 Label % O2 Pres/Loc Time AIR REST AO 93 PV 08:33:53 RA 74 SV 08:33:59 PA 73 PA 08:34:03 Signed By Edinson Padilla MD On 08/14/2022 11:52:23 Edinson Padilla MD
--- NOTE | 2022-08-14 12:38 | CRPHASE1 ---
Patient Communication PHII Cardiac Rehab Discussed with Patient:: Yes Guide to Cardiac Rehab Given to Patient:: Yes Cardiac Rehab Facility Choice List Given to Patient:: Yes Choice Program [facility] CR PHII:: Communication Given to CR Choice Program Other:: Communication Given to CR Shoe Repairman:: Roque Padilla Refer Phase II Cardiac Rehab:: Yes Sessions:: 36 sessions - 3 days/wk, 12 weeks Cardiac Rehabilitation Info Cardiac Rehabilitation Program Information: Cardiac Rehab The cardiac rehab team at [facility] consists of highly skilled exercise physiologists, nurses, respiratory therapists and physicians working together with you. Our purpose is to help you have a full recovery and achieve the goals you set for yourself. Over the years many of our patients have returned to activities they assumed they would never do again! We can help restore your confidence and motivation to make lifestyle changes that can have a significant impact on your health and quality of life! We can help answer questions and concerns you may have about exercise, lifestyle, medications, diet, stress and anxiety which are common following a hospitalization. WE monitor ECG and vital signs during exercise and discuss your progress with you and report to your physician(s). Cardiac Rehab is proven to help reduce readmissions, improve functional capacity and lower recurrence of problems with your heart. Our Cardiac Rehab program is Certified by the [place] [employer] Pulmonary [employer] (AACVPR) and Accredited by the [place] [employer] through our [facility]. You can contact us at . We invite you to call us with your questions or to get started in our program. If you have other questions or concerns be sure to ask your physician/provider during your follow-up visit. WE look forward to seeing you!
--- NOTE | 2022-08-14 12:38 | CRPH1.INSTRU ---
General Education CAD and cardiac anatomy and function:: Patient communicates acknowledgment Explanation of diagnoses and procedures:: Patient communicates acknowledgment Sign/Symptoms of IL:: Patient communicates acknowledgment Antiplatelet therapy: Patient communicates acknowledgment Smoking Patient Nicotine/Smoking Risk Factors Are:: Never smoked Dyslipidemia Patient Dyslipidemia Risk Factors Are:: Total Cholesterol, HDL, LDL Recommendations Include:: Lipid profile provided, Reviewed NCEP/ATP guidelines, Therapeutic Lifestyle Change dietary guidelines Dyslipidemia Response Code:: Patient communicates acknowledgment Overweight/Obesity Patient Overweight/Obesity Risk Factors Are:: Obesity - > or = 30 Recommendations Include:: Weight loss of 5-10%, Reduced calorie diet, Exercise 5-7 times/week Overweight/Obesity:: Patient communicates acknowledgment Hypertension Recommendations Include:: Maintain BP <130/85, DASH dietary guidelines, Decrease/maintain normal body weight, Moderation of ETOH Hypertension:: Patient communicates acknowledgment Diabetes Patient Diabetes Risk Factors Are:: Elevated blood sugars Recommendations Include:: Maintain fasting blood sugars 70-110 md/dL, Maintain HgbA1c of 6% or less, Monitor blood sugar as prescribed, Decrease/maintain body weight Diabetes:: Patient communicates acknowledgment Comments:: pre-diabetic A1c 5.9 Sedentary Patient Sedentary Risk Factors Are:: Lack of regular exercise Recommendations Include:: Aerobic exercise 5-7 times/week for 20-30 minutes continuously, Benefits of regular exercise, Discussed home walking program, Monitored Outpatient Cardiac Rehab Sedentary Response Code:: Patient communicates acknowledgment Stress Recommendations Include:: Identification of stressors, and assessment of coping skills, Stress management techniques Stress Response Code:: Patient communicates acknowledgment
[2022-08-14] MEDS: 0.9% Normal Saline 1,000 ML 60 ML IV (12:44)
[2022-08-14] MEDS: guaiFENesin 1,200 MG Tablet 1200 MG PO ×2 (12:44→21:06)
--- NOTE | 2022-08-14 13:17 | EKG12_ITS ---
Test Reason : post pci Blood Pressure : / mmHG Vent. Rate : 068 BPM Atrial Rate : 068 BPM P-R Int : 186 ms QRS Dur : 090 ms QT Int : 424 ms P-R-T Axes : 015 015 024 degrees QTc Int : 450 ms Normal sinus rhythm Normal ECG When compared with ECG of 02-JUN-2022 17:59, No significant change was found Confirmed by JEFFY DEAN, BARRY ([id number]), news videotape editor BERKLEY ROSAS ([id number]) on 08/18/2022 12:50:13 PM Referred By: Jeffy Confirmed By:BARRY BARDALES MD
[2022-08-14] MEDS: Budesonide Respules 0.5 MG/2 ML AMPUL.NEB. INHALATION (19:11)
[2022-08-14] MEDS: Ipratropium/Albuterol Sulfate 3 ML AMPUL.NEB INHALATION (19:11)
[2022-08-14] MEDS: 0.9% Saline Lock 10 ML Syringe IV (19:52)
--- NOTE | 2022-08-14 20:35 | CPS ---
pt has own bipap honing machine set up operator tool at bedside filled with distilled water
[2022-08-14] MEDS: Loratadine 10 MG Tablet PO (21:05)
[2022-08-14] MEDS: Montelukast 10 MG Tablet PO (21:05)
[2022-08-14] MEDS: Ipratropium Bromide 0.06% NASAL SPRAY 1 SPRAY NASAL (21:05)
[2022-08-14] MEDS: TICAGRELOR 90 MG TABLET PO (21:05)
[2022-08-14] MEDS: Tamsulosin HCl 0.4 MG Capsule PO (21:06)
[2022-08-15 03:00] VITALS: PULSE 61
[2022-08-15 03:43] VITALS: BP 120/76; PULSE 66; RESP 16; TEMP 36.8; O2SAT 95
[2022-08-15 06:46] LABS: Hematocrit 40.7 % (40-54); Hemoglobin 13.3 g/dL (13.0-16.5); Mean Corp Hgb Conc 32.7 g/dL (32-36); Mean Corpuscular Hgb 30.4 pg (27.0-32.0); Mean Corpuscular Volume 92.9 fL (80-94); Platelet Count 217 K/mm3 (150-450); RBC Distribution Width CV 15.7 % (11.6-14.6); RBC Distribution Width SD 53.7 fl (35.1-43.9); Red Blood Count 4.38 M/mm3 (4.6-6.2)
[2022-08-15] MEDS: Budesonide Respules 0.5 MG/2 ML AMPUL.NEB. INHALATION (07:03)
[2022-08-15] MEDS: Ipratropium/Albuterol Sulfate 3 ML AMPUL.NEB INHALATION (07:03)
[2022-08-15 07:05] LABS: ALB/GLOB Ratio 1.1 RATIO (0.9-2.4); AST(SGOT) 18 U/L (15-37); Alanine Aminotransfer ALT/SGPT 31 U/L (16-61); Albumin, Serum 3.3 g/dL (3.2-5.0); Alkaline Phosphatase 70 U/L (45-117); Anion Gap 6 (5-15); BUN 16 mg/dL (7-18); BUN/Creat Ratio 18.5 RATIO (10-20); Calcium,Total 9.1 mg/dL (8.5-10.1); Chloride 106 mmol/L (98-107); Creatinine, Serum 0.87 mg/dL (0.70-1.30); EST Glomerular Filtration Rate 92 mL/min (>60); Est Glom Filt Rate - Afr Amer 112 mL/min (>60); Estimated Creatinine Clearance 81.58 ml/min; Globulin 2.9 g/dL (2.2-4.2); Glucose 100 mg/dL (74-106); Potassium 3.8 mmol/L (3.5-5.1); Protein, Total 6.2 g/dL (6.4-8.2); Sodium Level 138 mmol/L (136-145)
[2022-08-15 07:06] VITALS: PULSE 64; RESP 18; O2SAT 94
--- NOTE | 2022-08-15 07:44 | PCM.PN.CARD ---
Subjective Subjective Patient's seen and evaluated. Appears to be doing much better this morning. No complaints Objective Data Vital Signs: Vital Signs Temp Pulse Resp BP Pulse Ox O2 Del Method 98.3 F 64 18 120/76 94 Room Air 08/15/22 03:43 08/15/22 07:06 08/15/22 07:06 08/15/22 03:43 08/15/22 07:06 08/15/22 07:06 Oxygen Delivery Method Room Air Weight: 290 lb Body Mass Index (BMI) 41.5 Intake & Output: Intake and Output for Last 24 Hours 08/13/22 08/14/22 08/15/22 23:59 23:59 23:59 Intake Total 1216 / 1216 300 / 300 Balance 1216 / 1216 300 / 300 Lab / Micro Data Result Diagrams: 08/15/22 06:29 08/15/22 06:29 Labs: Laboratory Results - last 24 hr 08/15/22 06:29: WBC 10.0, RBC 4.38 L, Hgb 13.3, Hct 40.7, MCV 92.9, MCH 30.4, MCHC 32.7, RDW Std Deviation 53.7 H, RDW Coeff of Yareli 15.7 H, Plt Count 217, MPV 10.0 08/15/22 06:29: Sodium 138, Potassium 3.8, Chloride 106, Carbon Dioxide 26.0, Anion Gap 6, BUN 16, Creatinine 0.87, Estim Creat Clear Calc 81.58, Est GFR (MDRD) Af Amer 112, Est GFR (MDRD) Non-Af 92, BUN/Creatinine Ratio 18.5, Glucose 100, Calcium 9.1, Total Bilirubin 0.90, AST 18, ALT 31, Alkaline Phosphatase 70, Total Protein 6.2 L, Albumin 3.3, Globulin 2.9, Albumin/Globulin Ratio 1.1 ABG Data ABG results: ABG 08/14/22 08/14/22 08/14/22 08:24 08:27 08:30 Specimen Type ART SID SID pH 7.41 Bicarbonate Actual 25.6 Total CO2 27 Base Excess 1 O2 Saturation 93 L ABG pCO2 40.5 ABG pO2 65 L VBG pH 7.40 7.41 VBG pO2 39 38 VBG HCO3 26 27 H VBG Total CO2 28 28 VBG O2 Sat (Calc) 74 H 73 H VBG Base Excess 1 2 POC Mix VBG pCO2 Pt Tmp 42.5 42.8 Cardiology Labs/Tests 08/14/22 08:24: pH 7.41, Bicarbonate Actual 25.6, Base Excess 1, O2 Saturation 93 L, ABG pCO2 40.5, ABG pO2 65 L 08/14/22 08:27: VBG pH 7.40, VBG pO2 39, VBG HCO3 26, VBG O2 Sat (Calc) 74 H, VBG Base Excess 1 08/14/22 08:30: VBG pH 7.41, VBG pO2 38, VBG HCO3 27 H, VBG O2 Sat (Calc) 73 H, VBG Base Excess 2 08/15/22 06:29: WBC 10.0, RBC 4.38 L, Hgb 13.3, Hct 40.7, MCV 92.9, MCH 30.4, MCHC 32.7, Plt Count 217, MPV 10.0 08/15/22 06:29: Sodium 138, Potassium 3.8, Chloride 106, Carbon Dioxide 26.0, Anion Gap 6, BUN 16, Creatinine 0.87, Est GFR (MDRD) Af Amer 112, Est GFR (MDRD) Non-Af 92, BUN/Creatinine Ratio 18.5, Glucose 100, Calcium 9.1, Total Bilirubin 0.90 Rhythm: EKG: ECHO: Stress Test: Cardiac Cath: PCI: CT Surgery: Holter monitor: EPS: PPM: CXR: Chest CT Scan: Physical Exam Const alert, oriented x3 and no apparent distress General Appearance: cooperative HEENT hearing grossly normal bilaterally Head and Scalp: atraumatic Eyes EOMs intact bilaterally Neck General: normal visual inspection Chest inspection of chest normal and palpation of chest normal Resp normal respiratory effort Auscultation: clear to auscultation bilaterally Cardio regular rate, regular rhythm, S1 normal heart sound and S2 normal heart sound Jugular Venous Distention: JVD GI normal to inspection, nondistended, normoactive bowel sounds Extremity normal capillary refill and no pedal edema Peripheral Pulses: Yes pulses 2+ throughout and femoral pulses present Skin no rashes or lesions noted Neuro oriented x3 and CN's II-XII intact bilaterally Psych Appearance: grossly normal and appropriate Assessment & Plan Assessment/Plan (1) History of coronary artery stent placement: PLAN: Patient has a history of coronary artery disease status post recent angioplasty and stenting. He appears to be doing well. He will be enrolled in cardiac rehabilitation and he will restart aspirin, ticagrelor and statin. (2) Essential hypertension: PLAN: His blood pressure is under good control and no major changes will be made. (3) Hyperlipidemia: PLAN: We will continue with aggressive risk factor modification.
--- NOTE | 2022-08-15 07:50 | DCINST_ITS ---
Discharge Instructions Diet Discharge Diet: No restrictions Activity Discharge Activity: Return to Normal Activity Additional Activity Instructions:: You must have someone drive you home. Do not drive until instructed by your doctor. You must have someone stay with you all night after your test. Rest in bed or on the couch until the next morning. Limit the number of times you go up and down stairs the day of your test. Apply pressure to the puncture site if you sneeze or cough. Dressing / Incision Call your doctor if your incision/area has: Increased Pain/ Swelling, Increased Redness, Foul Smelling Discharge and Swelling at the incision site Call your doctor if you observe: Fever of 101 or Higher Additional Dressing/Incision Instructions:: Keep the dressing (bandage) on until the next morning. You may then shower, but do not take a tub bath for 5 days after your test. It is normal to have some tenderness and discomfort at the puncture site. Sometimes bruising also occurs. However, if pain, numbness, or coldness occurs below the puncture site (in your leg, toes, arms or fingers) call your doctor at once. You may have a small, marble sized knot at the puncture site. This is normal. Do not rub it. It will go away in 4-6 weeks. Bleeding can occur from the area where the puncture was done. Blood may spurt or drip from the site. If blood spurts, apply pressure right away to stop bleeding and call 911. Although rare, bleeding into the tissue (hematoma) can also occur. If this happens, a large, firm area goose egg under the skin will appear. If any of these occur, lie down as flat as you can and have someone apply firm pressure to the cath site with a gauze pad or a clean washcloth for 10-15 minutes. Call 911 or go to the Emergency Department. Follow Up Care Please Follow Up With: Zbigniew Arrington MD When: My office will call for appointment. Test Results: Test results from this visit will be discussed in further detail at your follow- up appointment, if applicable. Discharge Plan Admission Admit Date/Time: 08/14/22 11:27 Attending Provider: Zbigniew Arrington Primary Care Provider: Digna Ureña Discharge Orders/Prescriptions Prescriptions: New aspirin 81 mg Tablet,Chewable 81 mg PO BREAKFAST Qty: 90 3RF Brilinta 90 mg Tablet 90 mg PO BID Qty: 180 3RF Continued Nucala 100 mg/mL auto-injector 300 mg SC Q4W Rx Instructions: administer as three 100 mg injections at separate sites multivitamin Tablet 1 tab PO DAILY (DME) PEP device See Rx Instructions .ROUTE .MEDSUPPLY Qty: 1 0RF Rx Instructions: with training allopurinol 300 mg tablet 300 mg PO DAILY Qty: 90 3RF cholecalciferol (vitamin D3) 25 mcg (1,000 unit) capsule 25 mcg PO DAILY Qty: 90 3RF Advair HFA 230-21 mcg/actuation HFA aerosol inhaler 2 puff inhalation Q12H Qty: 3 3RF guaifenesin 1,200 mg tablet extended release 12hr 1,200 mg PO Q12H Qty: 60 6RF irbesartan 150 mg tablet 150 mg PO DAILY Qty: 90 3RF lansoprazole [Prevacid] 30 mg capsule,delayed release(DR/EC) 30 mg PO DAILY Qty: 90 3RF loratadine 10 mg tablet 10 mg PO DAILY Qty: 90 3RF montelukast 10 mg tablet 10 mg PO QPM Qty: 90 3RF rosuvastatin 5 mg tablet 2.5 mg PO QODAY Qty: 90 3RF sodium chloride 5 % ointment 1 applic TOPICAL DAILY Qty: 3.5 6RF tamsulosin 0.4 mg capsule 0.4 mg PO DAILY Qty: 90 3RF Spiriva Respimat 1.25 mcg/actuation mist 2 puff inhalation DAILY Qty: 3 3RF trazodone 100 mg tablet 100 mg PO QHS PRN (Reason: insomnia) 90 Days Qty: 40 1RF ipratropium bromide 42 mcg (0.06 %) spray,non-aerosol 1 spray intranasal BID Qty: 15 6RF Rx Instructions: administer into each nostril albuterol sulfate 2.5 mg /3 mL (0.083 %) solution for nebulization 2.5 mg inhalation Q4H PRN (Reason: Sob &/Or Wheezing) Qty: 180 3RF Rx Instructions: J45.9 Asthma albuterol sulfate [Ventolin HFA] 90 mcg/actuation HFA aerosol inhaler 2 puff inhalation Q4H PRN (Reason: shortness of breath or wheezing) Qty: 18 6RF Referrals / Follow Up: Digna Ureña MD [Primary Care Provider] - Disposition Disposition (needs filled in before D/C Order can be placed): Home, Self Care
[2022-08-15 08:48] VITALS: BP 119/69; PULSE 79; RESP 16; TEMP 36.5; O2SAT 92
[2022-08-15] MEDS: Ipratropium Bromide 0.06% NASAL SPRAY 1 SPRAY NASAL (08:53)
[2022-08-15] MEDS: guaiFENesin 1,200 MG Tablet 1200 MG PO (08:55)
[2022-08-15] MEDS: Allopurinol 300 MG Tablet PO (08:55)
[2022-08-15] MEDS: Pantoprazole Sodium 40 MG Tablet PO (08:56)
[2022-08-15] MEDS: Losartan Potassium 50 MG Tablet 150 MG PO (08:56)
[2022-08-15] MEDS: TICAGRELOR 90 MG TABLET PO (08:56)
[2022-08-15] MEDS: Aspirin 81 MG TAB.CHEW PO (09:02)
--- NOTE | 2022-08-15 10:00 | EKG12_ITS ---
Test Reason : am Blood Pressure : / mmHG Vent. Rate : 060 BPM Atrial Rate : 060 BPM P-R Int : 148 ms QRS Dur : 086 ms QT Int : 414 ms P-R-T Axes : -06 009 012 degrees QTc Int : 414 ms Normal sinus rhythm Normal ECG When compared with ECG of 02-JUN-2022 17:59, No significant change was found Confirmed by JEFFY DEAN, BARRY ([id number]), photograph editor BERKLEY ROSAS ([id number]) on 08/18/2022 12:46:22 PM Referred By: Confirmed By:BARRY BARDALES MD
--- NOTE | 2022-08-15 10:08 | CASEMGMT ---
Patient discharging on Brilinta. NICOLE LEMONS called [facility] to inquire about copay. 90 day supply copay is $709.87 or $236.62 per month. Brilinta savings card provided to patient and updated regarding cost. NICOLE LEMONS informed patient to follow up with Dr. Arrington if he cannot afford medication. Patient voiced understanding. NICOLE LEMONS updated Dr. Arrington. Patient had no further questions or concerns at this time.
--- NOTE | 2022-08-18 17:05 | CL.D_ITS ---
Patient Name: JOAQUIN HENDRICKS Study Date: 08/14/2022 Performing: bZigniew Arrington MD Ht: 70 inches 177.8 cm : 1950 Wt: 290 lbs 131.54 kg Age: 71 Gender: male BSA: 2.44 PROCEDURE(S) PERFORMED DC05-(63858)RHC/LHC/COR/LV IC12-(35340/C9600)ENEDINA W/WO PTCA, SINGLE CORONARY ARTERY CLINICAL PROFILE AND INDICATIONS Indications: Suspected CAD Heart Failure: None Stress/Imaging Stress/Image Study Performed: No CAD Presentations: Other: SOB CONCLUSIONS Moderately severe mid LAD disease with mild calcification RECOMMENDATIONS Staged for FFR And consider PCI if significant DESCRIPTION OF PROCEDURE The patient arrived to the procedure lab. The risks and benefits of the procedure as well as a full description of our services here and current unavailability of surgical backup were fully explained to the patient and/or their significant other prior to the catheterization. The Timeout was completed, verifying the correct patient and procedure. The patient's procedural site was prepped and draped in the usual fashion. Local anesthetic was given subcutaneously to right brachial region with Lidocaine 2%. Local anesthetic was given subcutaneously to right radial region with Lidocaine 2%. Using a modified Seldinger technique, arterial access was obtained via the right radial artery, a 6Fr sheath was inserted. Venous access was obtained via the right brachiocephalic vein, a 7Fr sheath was inserted. A 7Fr thermal dilution catheter was inserted and right heart pressures were recorded, it was then advanced to PA position for cardiac outputs. O2 saturations were then obtained. The Thermal dilution catheter was then removed. Left Coronary Artery selective angiography was performed in multiple views using a 5 Fr. 4.0 [place] catheter. Right Coronary Artery selective angiography was then performed in multiple views using a 5 Fr. JR 5 catheter. Left Coronary Artery selective angiography was performed in multiple views using a 5 Fr. JL3.5 catheter. Left Ventriculography was performed in VICK projection using a 5 Fr. Pigtail catheter. LV to AO pullback pressures were then recorded.The arterial sheath was pulled and a TR Band was applied for hemostasis w/ 14ml air. The venous sheath was then pulled and manual compression applied until hemostasis achieved CORONARY ANGIOGRAPHY DOMINANCE: Right Dominant LEFT HEART ASSESSMENT Normal LV wall motion Normal Left Ventricular systolic function RIGHT HEART ASSESSMENT Thermal CO: 6.37 Thermal CI: 2.61 Davion CO: 8.92 Davion CI: 3.65 PW: 13 PA: /10 16 RV: 23/4 7 RA: 12 PVR: 38 LEFT MAIN: Mild calcification, No significant disease noted LEFT ANTERIOR DESCENDING ARTERY: Moderate calcification and moderately severe disease noted in the midsegment and mild diffuse distal disease CIRCUMFLEX ARTERY: No significant disease noted RIGHT CORONARY ARTERY: Mild luminal irregularities COMPLICATIONS No Complications PROCEDURE MEDICATIONS Versed 1 mg IV Fentanyl 50 mcg IV Oxygen: 2 L/min via nasal cannula Aspirin (325mg) 1 Tabs PO 08/14/2022 08:53:26 Brilinta 180 mg PO @ 08/14/2022 08:53:33 Heparin given IA 08/14/2022 08:34:21 Heparin 8000 unit(s) IV 08/14/2022 10:03:58 Heparin 2000 unit(s) IV 08/14/2022 10:43:44 Verapamil 2.5mg, Ntg 100mcgs, 3000 units of Heparin given IA 08/14/2022 08:34:21 IV Bolus: .9 NaCl 100 ml total 08/14/2022 08:37:22 IV Fluids: .9 NaCl IV started @ 100 ml/hr 08/14/2022 08:50:50 SUMMARY OF HEMODYNAMIC DATA Time AIR REST ECG 07:15:17 RA (12) SV 08:27:13 RV 23/4, 7 08:28:14 PA /10 (16) PA 08:28:37 PW (13) PV 08:28:49 PA 23/02 (14) 08:32:27 RV 27/4, 8 08:32:38 RA 19/03 (8) 08:32:57 AO 106/58 (76) SA 08:35:34 AO 66/45 (54) 08:37:44 AO 94/51 (70) 08:43:13 LV 102/7, 16 08:50:25 LV 103/5, 17 08:50:33 LV 100/7, 19 08:51:05 LV 99/8, 19 08:51:14 LVp 97/6, 18 08:51:18 AOp 102/57 (77) 08:51:25 AO 107/62 (82) 08:51:36 AO 117/68 (90) 10:05:56 Type SV CO (l/m) CI (l/m/ HR Time AIR REST Thermal 69.20 6.37 2.61 92 07:15:17 Dvaion 97.00 8.92 3.65 92 07:15:17 Label % O2 Pres/Loc Time AIR REST AO 93 PV 08:33:53 RA 74 SV 08:33:59 PA 73 PA 08:34:03 Signed By Zbigniew Arrington MD On 08/18/2022 17:05:02 Zbigniew Arrington MD
== END 2022-08-15 13:10 | disposition short-term general hospital (02) ==
LOC: PCU 13:27
PROVIDERS: Specialist; Admitting Provider Internal Medicine Cardiovascular Disease; PCP Internal Medicine; Visit Provider Internal Medicine Cardiovascular Disease
DX: I25.119 Atherosclerotic heart disease of native coronary artery with unspecified angina pectoris (principal); E66.01 Morbid (severe) obesity due to excess calories; R94.39 Abnormal result of other cardiovascular function study; R06.02 Shortness of breath; G47.33 Obstructive sleep apnea (adult) (pediatric); J45.901 Unspecified asthma with (acute) exacerbation; I10 Essential (primary) hypertension; E78.5 Hyperlipidemia, unspecified; Z79.82 Long term (current) use of aspirin; Z79.899 Other long term (current) drug therapy; Z87.891 Personal history of nicotine dependence; D72.10 Eosinophilia, unspecified
CPT/HCPCS: 36415; 80053; 82784; 82803; 85027; 92928; 93005; 93460; 94640; 99152; 99153; 99221; J0153; J7030; A4216; C1725; C1751; C1769; C1874; C1887; C1894; C9600; G0378; Q9967

== ENCOUNTER → 2022-08-15 | Outpatient (CLI) | payer MEDICARE, BC, SELFPAY ==
[2022-08-17 10:07] LABS: Immunoglobulin A 130 mg/dL (61-437); Immunoglobulin G 620 mg/dL (603-1613)
[2022-08-17 15:19] LABS: Immunoglobulin M 56 mg/dL (20-172)
== END | disposition home or self-care (01) ==
PROVIDERS: PCP Internal Medicine; Visit Provider Internal Medicine Critical Care Medicine
DX: Z00.00 Encounter for general adult medical examination without abnormal findings (principal)
CPT/HCPCS: 36415; 82784

== ENCOUNTER → 2022-08-27 | Outpatient (CLI) | payer MEDICARE, BC, SELFPAY ==
--- NOTE | 2022-08-27 13:04 | PCM.CR.HP2 ---
CR - History & Physical - General Arrival date:: 08/27/22 Arrival time:: 13:04 Date of Referral:: 08/14/22 Date of CR Evaluation:: 08/27/22 Referring Physician: Dr. Zbigniew Arrington Primary Diagnosis: PCI with coronary stent - History of Present Cardiac Event Onset Date: Enter Onset Date of cardiac illnesses in Comment field below PTCA or coronary stenting:: Yes - Sleep Disorder Evaluation Hx of Sleep Apnea: Yes History of Hypertension (for STOP score): Yes - on CPAP - Medications Home Medications: Ambulatory Orders Medication Instructions Recorded mepolizumab 100 mg/mL subcutaneous 300 mg subcut Q4W 08/23/20 auto-injector (Nucala) multivitamin 1 tab PO DAILY 09/19/20 PEP device #1 ea 06/12/22 allopurinol 300 mg tablet 300 mg PO DAILY #90 tabs 07/16/22 cholecalciferol (vitamin D3) 25 25 mcg PO DAILY #90 caps 07/16/22 mcg (1,000 unit) capsule fluticasone propionate 230 2 puff inhalation Q12H #3 ea 07/16/22 mcg-salmeterol 21 mcg/actuation HFA inhaler (Advair HFA) guaifenesin 1,200 mg tablet, 1,200 mg PO Q12H #60 tabs 07/16/22 extended release 12 hr irbesartan 150 mg tablet 150 mg PO DAILY #90 tabs 07/16/22 lansoprazole 30 mg capsule,delayed 30 mg PO DAILY #90 caps 07/16/22 release (Prevacid) loratadine 10 mg tablet 10 mg PO DAILY #90 tabs 07/16/22 montelukast 10 mg tablet 10 mg PO QPM #90 tabs 07/16/22 rosuvastatin 5 mg tablet 2.5 mg PO QODAY #90 tabs 07/16/22 sodium chloride 5 % eye ointment 1 applic topical DAILY #3.5 grams 07/16/22 tamsulosin 0.4 mg capsule 0.4 mg PO DAILY #90 caps 07/16/22 tiotropium bromide 1.25 2 puff inhalation DAILY #3 ea 07/16/22 mcg/actuation mist for inhalation (Spiriva Respimat) trazodone 100 mg tablet 100 mg PO QHS PRN insomnia 90 days 07/16/22 #40 tabs albuterol sulfate 2.5 mg/3 mL 2.5 mg (3 mL) inhalation Q4H PRN 07/17/22 (0.083 %) solution for nebulization Sob &/Or Wheezing #180 mL albuterol sulfate 90 mcg/actuation 2 puff inhalation Q4H PRN 07/17/22 aerosol inhaler (Ventolin HFA) shortness of breath or wheezing #18 grams ipratropium bromide 42 mcg (0.06 1 spray intranasal BID #15 mL 07/17/22 %) nasal spray aspirin 81 mg chewable tablet 81 mg PO BREAKFAST #90 tabs 08/15/22 ticagrelor 90 mg tablet (Brilinta) 90 mg PO BID #180 tabs 08/15/22 - Allergies Allergies/Adverse Reactions: Allergies lisinopril Adverse Reaction (Intermediate, Verified 08/25/22 12:17) cough simvastatin Adverse Reaction (Intermediate, Verified 08/25/22 12:17) elevated liver enzymes Advanced Directives - Advanced Directives Power of [employer] Handling [employer] Operator: No Living Will: No Advance Directives Information Provided: No Advance Directives on File: No DNR Order?:: No Past Medical History - Covid-19 Screening 65 years or older:: Yes Has a chronic lung disease or moderate to severe asthma:: Yes Has a serious heart condition:: Yes Severely obese (Body Mass Index of 40 or higher):: Yes - Past Medical Illness Medical History: Past Medical History (Last Reviewed 08/25/22 @ 12:17 by Lila Copeland) Abnormal bruising R23.8 Arthritis M19.90 Asthma J45.909 Asthmatic bronchitis with acute exacerbation J45.901 Atherosclerosis of coronary artery of [place] heart without angina pectoris I25.10 Bilateral lower extremity edema R60.0 BPH (benign prostatic hyperplasia) N40.0 Cataract H26.9 Chronic cough R05 Chronic sinusitis J32.9 Cough R05.9 DDD (degenerative disc disease) Easy bruising R23.8 Epithelial inclusion cyst L72.0 Essential hypertension I10 Fatigue R53.83 Flu vaccine need Z23 GERD (gastroesophageal reflux disease) K21.9 Gout M10.9 Hay fever J30.1 Hemorrhoids K64.9 History of left heart catheterization Z98.890 Hyperlipidemia E78.5 Insomnia G47.00 Lung disease J98.4 Morbid obesity E66.01 Obesity (BMI 30-39.9) E66.9 CARMELLA (obstructive sleep apnea) G47.33 PND (post-nasal drip) R09.82 Pre-diabetes R73.03 Recurrent kidney stones N20.0 Recurrent pneumonia J18.9 Shortness of breath R06.02 Umbilical hernia K42.9 URI (upper respiratory infection) J06.9 - Past Surgical History Surgical History: Past Surgical History (Last Reviewed 08/25/22 @ 12:17 by Lila Copeland) History of cataract extraction Z98.49 History of coronary artery stent placement Onset Date: 08/14/22 Z95.5 PCI-ENEDINA to mLAD w/ 3.0 x 18 mm Resolute Rodeo RX ENEDINA 08/14/22 History of orthopedic surgery Z98.890 L5 disc surgery x2, C4-5 disc replacement History of tonsillectomy Z90.89 History of uvulectomy Z90.89 S/P correction of deviated nasal septum Z98.890 - Family History Summary Family History: Family History (Last Reviewed 08/25/22 @ 12:17 by Lila Copeland) Father Cancer Bone Marrow Social History - Smoking History Hx Tobacco Use: No - Alcohol Use Alcohol Usage: Yes - 1 drink a week - Substance Abuse Hx Substance Use: No - Occupation Occupation (List type of work in comments):: Employed - depends if he has a project. - Hobbies, Recreation, Social Activities Hobbies: None Social Environment - Status Marital Status: - Current Living Arrangements Living Environment:: Spouse - Children How many children do you have?: 2 Do any of your children live nearby?: Yes - Safety Do you feel safe in your surroundings?: Yes - Assistance Do you need any assistance at home?: no Review of Systems - Review of Systems Hints: Right click = Denies (Slash). Left click = Reports ([place]) Review of Present Symptoms: Reports: Shortness of Breath with Exertion, Dizziness/Lightheadedness, Fatigue, Appetite - Normal, Appetite - Special Diet. Denies: Shortness of Breath at Rest, PVD, Operative Discomfort, Angina, Wound Healing, Heart Arrhythmia/Irregularities, Sleep - Normal, Sexual Changes - Pain Pain Location: lower extremity, other - Hip and LLE Pain Level: 5/10 Risk Factor Assessment - Vital Signs Pulse Ox: 91 - Pulse Pulse Rate: 83 Pulse Rhythm: Regular - Hypertension Blood Pressure Sitting - Left Arm: 112/60 - Stress Stress: Work-related - Diabetes Nutrition Referral for Diabetes: No - Obesity Height: 5 ft 10 in Weight:: 130.181 kg Weight in Pounds: 287.0 lbs Body Mass Index (BMI): 41.1 Nutritional Referral for Obesity: Yes - Risk Stratification Risk Guidelines: Lowest Risk: Risk Factor for Smoking, Moderate Risk: Risk Factor for Dyslipidemia, Risk Factor for Diabetes, Risk Factor for Obesity, Risk Factor for Hypertension, Risk Factor for Sedentary Lifestyle, Risk Factor for Depression - Family History Family History: Family History (Last Reviewed 08/25/22 @ 12:17 by Lila Copeland) Father Cancer Motivation - Motivation to Participate On a scale of 1 to 10, how prepared are you to commit to attending program?: 10 What do you see as barriers to successfully being able to complete the program?: none What do you see as the benefits of succesfully completing the program? In other words, what do you hope to get out of participating in the program?: learn what exercises to do Are there issues you are dealing with that will interfere with completing the program?: no Do you have a spouse or signficant other, family or friends who will help support you to complete the program?: yes
[2022-08-27 14:22] VITALS: BP 112/60; PULSE 83; O2SAT 91; BMI 41.1
--- NOTE | 2022-08-27 14:23 | CR.ITP_ITS ---
Diagnosis - General Information Admitting Diagnosis: PCI with stent Personal Learning Style:: Audio/Visual, Demonstration, Group, Individual Preference, Written Gave educational material for:: Treating Heart Disease, Emotions & Heart Disease, Stress Management & Relaxation, Sleep Disorders & Heart Disease, How The Heart Works, What it means to have Heart Disease, How Coronary Artery Disease is Diagnosed, Heart Procedures, What Heart Medications Do, Risk Factors & Modifications, Living an Active Life, Nutrition - Education/Goals Cardiac Rehabilitation Goals: 1. Maintain the individual as the primary focus of care. 2. To improve the patient's quality of life. 3. Identification of cardiac risk factors and provide cardiac risk factor management. 4. Enhance the psychosocial status of the patient. 5. Reconditioning enough to allow the patient to resume customary activities. 6. Control symptoms of cardiac disease Personal Goals: Initial Assessment: Improve energy level, Improve knowledge of cardiac disease, Improve muscle strength and endurance, Improve diet and eating habits (eat healthier), Control risk factors (learn risk factor modification) Scale for measuring improvement of personal goals: Enter appropriate number in Comments. 2 = Unchanged. 3 = Slightly Better. 4 = Moderate Improvement. 5 = Met my Goal - Diagnosis & Disease Process Outcomes/Goals: Pt IDs own risk factors & lifestyle modifications by Session 10, Verbalizes symptoms of angina & response by session 3., Pt independently manages, Other Additional Outcomes/Goals: Plan/Interventions: Assist Pt to ID & engage in lifestyle modification to reduce CVD risk, Instruct on individual risk factors, Review symptoms of angina & josselyn rgency actions, Review secondary diagnosis & identify educational needs., Other see comment 30 day Reassessments:: Not Met 30 day Reassessments:: Not Met 30 day Reassessments:: Not Met 30 day Reassessments:: Not Met Final Reassessments:: Not Met - Safety Referral to Physical Therapy: No Referral to [facility] Case Management: No Fall Risk Assessed:: Yes Assistive Devices:: None Exercise - Initial Assessment - Visit Date of Eval: 08/27/22 - initial eval Mets: Pre-: >3 METS for 30 minutes by discharge, >5 METS for 30 minutes by discharge, >7 METS for 30 minutes by discharge, Unable to meet goal due to: (see comment below) - Physician Prescribed Exercise Modalities: Treadmill, Rower, Airdyne, NuStep, SciFit, Lateral Adjunct Lecturer Frequency: 3x/week for 12 weeks [36 sessions] Intensity: 60-80% of age predicted maximum heart rate reserve Current METSs:: 3 Target Heart Rate:: 98-113 - Outcomes & Goals Goals:: Verbalizes understanding of THR, RPE & goal METS by session 6, Documents in home exercise log/reports 30 min aerobic 5 day/wk by DC, Demonstrates accurate pulse taking by DC, Other additional outcome/goals: see below - Intervention & Plan Exercise Program Goals: Instruct on personal THR & RPE, Instruct on MET level & personal MET goal, Show patient to take own pulse /validate performance until accurate, Instruct on home exercise, Other additional plan/int - Physical Activity Home Exercise Physical Activity - Home Exercise: Safe Exercise, Warm-up, Self-monitoring, Cool-Down, Home Exercise > 30 min Daily, Sitting Time <3 hours/daily - Outcomes & Goals Outcomes/Goals: Demonstrates correct Warm-up/exercise Cool-Down (S3) if = 2.5 METs, Verbalizes symptoms of exercise intolerance by Session 3 (S3), Demonstrate safe equipment use (S3) & follows exercise prescrition (6), Other: See below - Intervention & Plan Plan/Intervention: Instruct warm-up & cool-down if exercising at > 2 METs, Instruct on symptoms of exercise intolerance & actions to take, Instruct & monitor on saf, Assess intial functional capacity & safety risk, Other See below Nutrition - Initial Assessment - Program Goals Nutrition Program Goals: LDL <100 optimal. 100 - 129 Near optimal. 130 - 159 Borderline High. 160 - 189 High. Total Cholesterol <200 desirable. 200 - 239 Borderline High. >/= 240 High. HDL < 40 Low >/=60 High. Triglycerides <150 desirable. <199 optimal. VlDL 5 - 40. HgbA1C <7%. BMI <25 Patient has diagnosis of Hyperlipidemia (ICD E78)?: Yes - Visit Date of Assessment:: 08/27/22 - initial eval - Cholesterol/Lipids (Other Core Measures) Determine presence & major risk factors that modify LDL goal: Hypertension or hypertensive medication, Low HDL cholesterol <40 mg/dL*, Family history of premature CHD in Male < 55 years: female <65 yearsFa, Age men > 45 years; women >/= 55 years Outcomes/Goals: Pt IDs own risk factors & lifestyle modifications by Session 10, Verbalizes symptoms of angina & response by session 3., Pt independently manages, Other Additional Outcomes/Goals: Intervention/Plan: Advocate for lipid panel cholesterol medication if applicable, Instruct on personal lipid levels & lipid goals/NCEP guidelines, Instruct on cholesterol, Other additional plan/int Referral to dietitian:: Yes - medical nutrition therapy - Diabetes (Other Core Measures) Diabetes Type: Not Applicable - Weight Mgt (Other Care) Height: 5 ft 10 in Weight:: 130.181 kg BMI: 41.1 Diagnosis Overweight/Obesity BMI> 30% ICD-10 E66: Yes Diagnosis High BMI/Morbid Obesity BMI> 35% ICD-10 Z68: Yes Outcomes/Goals: Pt sets, maintains & shows weight loss goal & trend during rehab, Other additional outcomes/goals Intervention/Plan: Instruct on ideal BMI & set weight loss goal w/patient, Assist pt to ID & incorporate diet changes for weight loss by S9, Refer to Structured Weight Loss program as appropriate, Encourage goal of using 250- 300dcal per session for weight loss, Other additional plan/interventions - Healthy Eating Habits Will attend diet classes:: Yes Outcomes/Goals:: Consume diet rich in vegs,fruits,whole grain/high fiber,fish,lean meat, Limit sat/trans fats,cholesterol & added salts & sugars, Other additional outcome/goals: - Education Gave educational materials for:: Signs & symptoms of hypoglycemia, Signs & symptoms of hyperglycemia, Relate diabetes to coronary artery disease, Healthy eating Nutrition - 30-Day Assessment Nutrition - 60-Day Assessment Nutrition - 90-Day Assessment Nutrition - Final Assessment Core - Initial Assessment - Visit Date of Eval: 08/27/22 - initial eval - Medication Compliance Preventative Medication(s):: Statin/lipid H/O mental health issues: depression, anxiety, or addiction?: No Doesn?t believe in the benefits of treatment?: No Believes medications are unnecessary or harmful?: No Has a concern about medication side effects?: No Expresses concern over the cost of medications?: No Outcomes/Goals: Verbalizes medications,desired effect & common side effects @ DC, Pt self-reports following medication regimen, Keeps card in wallet w/m edications listed by DC, Other additional outcome/goals: Interventions/plans: Instruct on medication effects & side effects, Review medication list w/patient every two weeks, Instruct importance of taking meds as ordered & assist problem solving, Other additional - Tobacco Use Tobacco Use: Non-smoker Do you use smokeless tobacco?: No Outcomes/Goals: Smoking cessation achieved or maintained by discharge, Identify aids/strategies for achieving smoking cessation by session 6, Other additional outcome/goals Interventions/plan: Instruct on effects of smoking & provide smoking cessation resource, Assist pt to set quit date & provide encouragement, Assist pt to develop strategies to achieve/maintain quit date, Assist pt w/nicotine replacement & medication for cessation success, Other additional plan/interventions - Hypertension Hypertension Diagnosis:: Hypertension ICD-10 I10 [place] [employer] Hypertension Guidelines: [place] [employer] Hypertension Guidelines. Normal BP Less than 120/80. Elevated BP 120/80. Hypertension Stage 1: BP 130-139/80-89. Hypertesnion Stage 2: BP 140 or higher/90 or higher. Hypertension Crisis: BP higher than 180/120 Outcomes/Goals: Able to verbalize/achieve optimal blood pressure <130/80, Incorporates diet changes & exercise for blood pressure control by DC, Other additional outcomes/goals Interventions/plan: Instruct on optimal blood pressure, hypertension & medications, Instruct on effects of sodium, alcohol, stress, exercise &hypertension, Other additional plan/interventions - Tobacco Cessation Referral Smoking Cessation Referral:: No Individual Education/Counseling:: No Education Schedule Given:: Yes Core - 30-Day Assessment Core - 60-Day Assessment Core - 90 Day Assessment Core - Final Assessment Psychosocial - Initial Assess - VIsit Date of Eval: 08/27/22 - initial eval History of previous Mental disease:: No Psychosocial - 30-Day Assess Psychosocial - 60-Day Assess Psychosocial - 90-Day Assess Psychosocial - Final Assessmen Patient Health Questionnaire Initial Assessment 1. Little interest or pleasure in doing things: Not at all 2. Feeling down, depressed, or hopeless: Not at all 3. Trouble falling or staying asleep, or sleeping too much: Nearly every day 4. Feeling tired or having little energy: Several days 5. Poor appetite or overeating: More than half the days 6. Feeling bad about yourself -- or that you are a failure or have let yourself or your family down: Not at all 7. Trouble concentrating on things, such as reading the newspaper or watching television: Not at all 8. Moving or speaking so slowly that other people could have noticed. Or the opposite - being so fidgety or restless that you have been moving around a lot more than usual: Not at all 9. Thoughts that you would be better off , or of hurting yourself in some way: Not at all How difficult have these problems made it for you to do your work, take care of things at home, or get along with other people?: Not difficult at all Total Score: 6 NIRU-Q SV Test - Statements CAD is a disease of the arteries in the heart: False Examples of risk factors for heart disease: True Angina is chest pain or discomfort: True The benefits of resistance training include: True Eating more meat and dairy products: False Anti-platelet medications such as aspirin are important: True The only effective way to manage stress: False An exercise warm-up slowly increases heart rate: True Prepared, processed foods usually have high sodium: True Depression is common after a heart attack: True The statin medications lower cholesterol: True To control blood pressure, lower the amount of sodium: True If someone gets chest discomfort during walking: False Transfats are partially hydrogenated vegetable oils: True Sleep apnea that is not treated increases the risk: True To control cholesterol, one should become a vegetarian: I Don't Know Someone knows if he/she is exercising at the right level: True Diabetes cannot be prevented with exercise & health eating: False Stress is a large risk for heart attack: True A diet that can help lower blood pressure is rich in: True - Total Score Total Correct Responses: 18 Self-Efficacy Initial Assessment We would like to know how confident you are in doing certain activities. Please select your confidence level for:: Select your confidence level for the following using the scale 1-10 where 1 is not at all confident and 10 is totally confident. Your score is the average of all 6 responses. Fatigue: How confident are you that you can keep the fatigue caused by your disease from interfering with the things you want to do? Select Number: 10 Physical Discomfort or Pain: How confident are you that you can keep the physical discomfort or pain of your disease from interfering with the things you want to do? Select Number: 10 Emotional Distress: How confident are you that you can keep the emotional distress caused by your disease from interfering with the things you want to do? Select Number: 10 Other Symptoms or Health Problems: How confident are you that you can keep other symptoms or health problems from interfering with the things you want to do? Select Number: 3 Different Tasks and Activities: How confident are you that you can do the different tasks and activities needed to manage your health condition so as to reduce your need to see a doctor? Select Number: 5 Medication: How confident are you that you can do things other than just taking medication to reduce how much your illness affects your everyday life? Select Number: 10 Total Score:: 8 Nutrition Survey - Nutrition Survey Discharge Have you lost >10 lbs over the past 2 months without trying?: No Are you following a special diet at home for diabetes, low fat, or low salt?: No Are you interested in meeting with a dietitian for help understanding your diet?: No Do you eat less than 3 meals a day?: Yes Do you eat fatty meats (mcmahon, sausage, ribs, etc), fried foods, desserts, large amounts of salad dressings, margarine, butter, or cheese most days?: Yes Do you have food allergies? [Enter types in comment field]: No Do you eat in restaurants more than 3 times a week?: Yes Do you season food with salt, seasoning salt, or garlic salt?: No
[2022-08-27 14:41] VITALS: BMI 41.1
== END | disposition home or self-care (01) ==
LOC: CR 12:56
PROVIDERS: PCP Internal Medicine; Visit Provider Internal Medicine Cardiovascular Disease
DX: Z95.5 Presence of coronary angioplasty implant and graft (principal)

== ENCOUNTER 2022-09-01 15:26 | Outpatient (RCR) | payer MEDICARE, BC, SELFPAY ==
[2022-08-27 14:41] VITALS: BMI 41.1
== END 2022-09-02 23:59 ==
LOC: CR 15:26
PROVIDERS: PCP Internal Medicine; Referring Provider Internal Medicine Cardiovascular Disease; Visit Provider Internal Medicine Cardiovascular Disease
DX: I25.10 Atherosclerotic heart disease of native coronary artery without angina pectoris (principal); Z95.5 Presence of coronary angioplasty implant and graft; I10 Essential (primary) hypertension; E78.5 Hyperlipidemia, unspecified
CPT/HCPCS: 93798

== ENCOUNTER 2022-09-02 09:29 | Outpatient (RCR) | payer MEDICARE, BC, SELFPAY ==
[2022-08-27 14:41] VITALS: BMI 41.1
[2022-09-02 10:16] VITALS: BP 141/74; PULSE 76; TEMP 36.2; BMI 41.1
--- NOTE | 2022-09-02 14:51 | PCM.WC.HP ---
History of Present Illness Date of Service: 09/02/22 Chief Complaint: Skin tear of the right elbow History of Wound: This is a 71-year-old male with multiple pre-existing medical conditions, as listed below. In the last several years, he has noted the development of spontaneous ecchymoses, bruises, and purpura on his upper extremities. For the most part, these occur spontaneously without explanation. These lesions do not occur elsewhere on his body. They frequently unroofed, resulting in superficial ulcerations, which subsequently healed. The patient underwent a coronary angioplasty with stent placement on August 14, 2022, performed at [facility], at which time he sustained a small skin tear on the right elbow. He presents at this time for evaluation and management. Subsequent to his recent coronary artery stent placement, he has been on Brilinta. The patient indicates that the lesions often bleed profusely once they have unroofed. He has been using a commercial product called Wound Seal which is an [id number] product to help control the bleeding. It is a hemostatic agent. He has been evaluated by Dr. Johnson, his primary care physician, and Dr. Arteaga, with no resolution to his problem. He is extremely careful in the use of adhesive tape, and has found a silicone tape which appears to be well-tolerated. [facility] Medical History Abnormal bruising Arthritis Asthma Asthmatic bronchitis with acute exacerbation Atherosclerosis of coronary artery of [place] heart without angina pectoris Bilateral lower extremity edema BPH (benign prostatic hyperplasia) Cataract Cataracts, bilateral Chronic cough Chronic sinusitis Cough DDD (degenerative disc disease) Easy bruising Epithelial inclusion cyst Essential hypertension Fatigue Flu vaccine need GERD (gastroesophageal reflux disease) Gout Hay fever Hemorrhoids Hemorrhoids History of left heart catheterization Hyperlipidemia Insomnia Lung disease Morbid obesity Multiple ecchymoses of both upper arms Obesity (BMI 30-39.9) CARMELLA (obstructive sleep apnea) PND (post-nasal drip) Pre-diabetes Recurrent kidney stones Recurrent pneumonia Shortness of breath Skin tear of right elbow without complication Umbilical hernia URI (upper respiratory infection) Home Medications mepolizumab 100 mg/mL subcutaneous auto-injector (Nucala) 300 mg subcut Q4W 08/23/20 [History Last Taken Unknown] multivitamin 1 tab PO DAILY 09/19/20 [History Last Taken Unknown] PEP device #1 ea 06/12/22 [Rx Last Taken Unknown] allopurinol 300 mg tablet 300 mg PO DAILY #90 tabs 07/16/22 [Rx Last Taken Unknown] cholecalciferol (vitamin D3) 25 mcg (1,000 unit) capsule 25 mcg PO DAILY #90 caps 07/16/22 [Rx Last Taken Unknown] fluticasone propionate 230 mcg-salmeterol 21 mcg/actuation HFA inhaler (Advair HFA) 2 puff inhalation Q12H #3 ea 07/16/22 [Rx Last Taken Unknown] guaifenesin 1,200 mg tablet, extended release 12 hr 1,200 mg PO Q12H #60 tabs 07/16/22 [Rx Last Taken Unknown] irbesartan 150 mg tablet 150 mg PO DAILY #90 tabs 07/16/22 [Rx Last Taken Unknown] lansoprazole 30 mg capsule,delayed release (Prevacid) 30 mg PO DAILY #90 caps 07/16/22 [Rx Last Taken Unknown] loratadine 10 mg tablet 10 mg PO DAILY #90 tabs 07/16/22 [Rx Last Taken Unknown] montelukast 10 mg tablet 10 mg PO QPM #90 tabs 07/16/22 [Rx Last Taken Unknown] rosuvastatin 5 mg tablet 2.5 mg PO QODAY #90 tabs 07/16/22 [Rx Last Taken Unknown] tamsulosin 0.4 mg capsule 0.4 mg PO DAILY #90 caps 07/16/22 [Rx Last Taken Unknown] tiotropium bromide 1.25 mcg/actuation mist for inhalation (Spiriva Respimat) 2 puff inhalation DAILY #3 ea 07/16/22 [Rx Last Taken Unknown] trazodone 100 mg tablet 100 mg PO QHS PRN insomnia 90 days #40 tabs 07/16/22 [Rx Last Taken Unknown] albuterol sulfate 90 mcg/actuation aerosol inhaler (Ventolin HFA) 2 puff inhalation Q4H PRN shortness of breath or wheezing #18 grams 07/17/22 [Rx Last Taken Unknown] ipratropium bromide 42 mcg (0.06 %) nasal spray 1 spray intranasal BID #15 mL 07/17/22 [Rx Last Taken Unknown] aspirin 81 mg chewable tablet 81 mg PO BREAKFAST #90 tabs 08/15/22 [Rx Last Taken Unknown] ticagrelor 90 mg tablet (Brilinta) 90 mg PO BID #180 tabs 08/15/22 [Rx Last Taken Unknown] albuterol sulfate 2.5 mg/3 mL (0.083 %) solution for nebulization 2.5 mg inhalation .COMPLEX Sob &/Or Wheezing 09/01/22 [History Last Taken Unknown] sodium chloride 5 % eye ointment 1 applic topical DAILY PRN Dry Eye(S) 09/01/22 [History Last Taken Unknown] Allergy/AdvReac Type Severity Reaction Status Date / Time lisinopril AdvReac Intermediate cough Verified 09/01/22 10:26 simvastatin AdvReac Intermediate elevated Verified 09/01/22 10:26 liver enzymes Family History Father Cancer Bone Marrow Surgical History History of cataract extraction History of cataract extraction History of coronary artery stent placement (08/14/22) History of coronary artery stent placement History of lumbar discectomy History of orthopedic surgery History of tonsillectomy History of tonsillectomy History of uvulectomy History of uvulectomy S/P correction of deviated nasal septum Social History household members: spouse housing: house Smoking Status: Never smoker alcohol intake: current alcohol intake frequency: a few times a month Alcohol type: beer and wine substance use type: does not use what type of physical activity do you participate in: none Vital Signs Vital Signs Vital Signs: 09/02/22 10:16 Temperature 97.2 F L Temperature Source Temporal Pulse Rate 76 Blood Pressure 141/74 H Blood Pressure Mean 96 Blood Pressure Source Monitor Weight Weight: 287 lb Body Mass Index (BMI) 41.1 Physical Exam Const alert, oriented x3, no apparent distress and well nourished Constitutional Narrative: The patient is obese. General Appearance: cooperative, comfortable, well kempt and well developed Orientation / Consciousness: awake, oriented to person, oriented to place and oriented to time Exam Limitations: no limitations HEENT normocephalic, head/scalp atraumatic and hearing grossly normal bilaterally Head and Scalp: normal to inspection, normocephalic and atraumatic Face and Sinus: normal facial exam Nose: external nose normal External Ear: external ears normal Eyes PERRL and EOMs intact bilaterally General Eye: normal appearance of both eyes Neck full ROM Resp normal respiratory effort, normal air movement, no retractions and no use of accessory muscles Effort and Inspection: able to speak in complete sentences Extremity no calf tenderness General Extremity: Negative for clubbing or cyanosis Skin Wound Narrative: Multiple purpuric and ecchymotic lesions are noted in the patient's upper extremities, of various sizes. A small skin tear/superficial abrasion is noted on the right lateral elbow. Dimensions are documented elsewhere. There is no sign of infection or cellulitis. It appears as though the remainder of the patient's skin surface throughout his body is spared of these lesions. Neuro oriented x3, CN's II-XII intact bilaterally and moves all extremities Sensorium / Orientation: awake, alert, oriented to person, oriented to place and oriented to time Psych Appearance: grossly normal and appropriate Attitude: calm Activity / Motor Behavior: appropriate eye contact Speech: normal speech Mood & Affect: euthymic mood Thought Process: normal thought process Thought Content: normal thought content Attention / Concentration: attention grossly intact Debridement Note Debridement Note No debridement was completed: No debridement was completed today Post-Debridement Measurements and Additional Note: Post-Debridement Measurements/Treatment - Nurse 1 - General Ulcer Assessment Start: 09/02/22 10:05 Freq: Status: Active Protocol: [id number].[email or web address] Activity Type Activity Date Activity User E-sign Co-sign Detail Recorded Client Recorded Date Recorded By Document 09/02/22 10:16 PR [id number] 09/02/22 10:26 PR 09/02/22 10:16 - Today's Visit Information Type of service Initial Visit Arrival Mode Ambulatory Patient Identification Verified (Name & Yes ) Patient Requires Transmission-Based No Precautions Safety Precautions NA Height and Weight Height 5 ft 10 in Weight 287 lb Weight in Pounds 287.0 lbs Body Mass Index (BMI) 41.1 BMI Classification Obese BSA - Ama[place] 2.43 Vital Signs Temperature (97.8 F-99.1 F) 97.2 F L Temperature Source Temporal Pulse Rate (60-100) 76 Pulse Location Monitor Blood Pressure (90/60-120/80) 141/74 H Blood Pressure Mean 96 Source Monitor History Since Last Visit- (Skip if this is Patient's initial visit) Left Footwear Regular Shoe Right Footwear Regular Shoe Pain Scale: 0-10 Numeric Is Patient Pain Free? Yes WC - Nurse 1 - General Ulcer Measurement Start: 09/02/22 10:05 Freq: Status: Active Protocol: Activity Type Activity Date Activity User E-sign Co-sign Detail Recorded Client Recorded Date Recorded By Document 09/02/22 10:16 AK [id number] 09/02/22 10:26 AK 09/02/22 10:16 Wound Center Nurse 1 #1 R lateral elbow -Combined with other wound No -Current Size (cm) - Length 0.1 -Current Size (cm) - Width 1.2 -Current Size (cm) - Depth 0.1 -Total Square Cm 0.12 -Date of Last Picture (Recall this 09/02/22 field) -Photo Taken Yes -Tunneling No -Undermining/Tunneling No -Circular Undermining No -Change in Wound Grade/Stage No -Exudate Amt Small -Exudate Type Serosanguineous -Wound Margin Distinct, Outline Attached -Granulation Amt None Present (0 %) -Granulation Quality N/A -Slough/Fibrin No -Necrosis Amt None Present (0 %) -Structure Exposed N/A -Texture (Kiki-wound Skin Appearance) Assessed, Friable -Moisture (Kiki-wound Skin Appearance) No Abnormality, Assessed -Color (Kiki-wound Skin Appearance) Assessed, Hemosiderin Staining -Temperature (Kiki-wound Skin No Abnormality Appearance) (Pt Warm) -Tenderness on Palpation (Kiki-wound No Skin Appearance) -Ulcer Cleansing Rinsed/ Irrigated with Saline -Foul Odor after Cleansing No WC - Nurse 2 - General Ulcer CM Notes Start: 09/02/22 10:05 Freq: Status: Active Protocol: Activity Type Activity Date Activity User E-sign Co-sign Detail Recorded Client Recorded Date Recorded By Document 09/02/22 10:37 MW [id number] 09/02/22 10:55 MW 09/02/22 10:37 Wound Center Nurse 2 -Time 10:40 -Correct Patient Yes -Correct Side, Site, Position Yes -Correct Procedure Yes -Procedure Performed No -Post Debridement (cm) - Length 0.1 -Post Debridement (cm) - Width 1.2 -Post Debridement (cm) - Depth 0.1 -Total Square (Post) (cm) 0.12 -Tunneling No -Undermining/Tunneling No -Circular Undermining No -Wound/Ulcer Outcome Not Healed Pain Scale: 0-10 Numeric Is Patient Pain Free? Yes - Nurse 3 - General Ulcer D/C NN Start: 09/02/22 10:05 Freq: Status: Active Protocol: Activity Type Activity Date Activity User E-sign Co-sign Detail Recorded Client Recorded Date Recorded By Document 09/02/22 11:06 DL [id number] 09/02/22 11:07 DL 09/02/22 11:06 Wound Care Center Nurse 3 #1 R lateral elbow -Ulcer Cleansing Rinsed/ Irrigated with Saline -Foul Odor after Cleansing No -Primary Dressing Applied C Hydrogel ($), NonAdherent Contact Layer -Primary Dressing Covered/Secured with Dry Gauze & Roll Gauze, Secured with Tape Treatment Response Procedure Tolerated Well Pain Scale: 0-10 Numeric Is Patient Pain Free? Yes WC - Visit Discharge Discharge Condition Stable Ambulatory Status Ambulatory Transportation Private Auto Assessment/Plan Assessment/Plan (1) Abrasion of right forearm, initial encounter: CODE(S): S50.811A - Abrasion of right forearm, initial encounter (2) Skin tear of right elbow without complication: CODE(S): S51.011A - Laceration without foreign body of right elbow, initial encounter QUALIFIERS: Encounter type: initial encounter Qualified Code(s): S51.011A - Laceration without foreign body of right elbow, initial encounter (3) Purpura: CODE(S): D69.2 - Other nonthrombocytopenic purpura (4) Multiple ecchymoses of both upper arms: CODE(S): R58 - Hemorrhage, not elsewhere classified (5) Atherosclerosis of coronary artery of [place] heart without angina pectoris: CODE(S): I25.10 - Atherosclerotic heart disease of [place] coronary artery without angina pectoris (6) History of coronary artery stent placement: CODE(S): Z95.5 - Presence of coronary angioplasty implant and graft (7) CAD (coronary artery disease): CODE(S): I25.10 - Atherosclerotic heart disease of [place] coronary artery without angina pectoris (8) Essential hypertension: CODE(S): I10 - Essential (primary) hypertension (9) Hyperlipidemia: CODE(S): E78.5 - Hyperlipidemia, unspecified (10) Chronic cough: CODE(S): R05 - Cough (11) CARMELLA (obstructive sleep apnea): CODE(S): G47.33 - Obstructive sleep apnea (adult) (pediatric) (12) BMI 40.0-44.9, adult: CODE(S): Z68.41 - Body mass index [BMI] 40.0-44.9, adult (13) Asthma: CODE(S): J45.909 - Unspecified asthma, uncomplicated QUALIFIERS: Asthma severity: severe Asthma persistence: persistent Asthma complication type: uncomplicated Qualified Code(s): J45.50 - Severe persistent asthma, uncomplicated (14) Easy bruising: CODE(S): R23.8 - Other skin changes (15) Pre-diabetes: CODE(S): R73.03 - Prediabetes (16) Umbilical hernia: CODE(S): K42.9 - Umbilical hernia without obstruction or gangrene (17) Morbid obesity: CODE(S): E66.01 - Morbid (severe) obesity due to excess calories (18) GERD (gastroesophageal reflux disease): CODE(S): K21.9 - Gastro-esophageal reflux disease without esophagitis (19) BPH (benign prostatic hyperplasia): CODE(S): N40.0 - Benign prostatic hyperplasia without lower urinary tract symptoms (20) DDD (degenerative disc disease): (21) Recurrent kidney stones: CODE(S): N20.0 - Calculus of kidney (22) Gout: CODE(S): M10.9 - Gout, unspecified (23) Cataracts, bilateral: CODE(S): H26.9 - Unspecified cataract (24) Hemorrhoids: CODE(S): K64.9 - Unspecified hemorrhoids (25) History of cataract extraction: CODE(S): Z98.49 - Cataract extraction status, unspecified eye (26) History of tonsillectomy: CODE(S): Z90.89 - Acquired absence of other organs (27) History of uvulectomy: CODE(S): Z90.89 - Acquired absence of other organs (28) History of lumbar discectomy: CODE(S): Z98.890 - Other specified postprocedural states (29) History of coronary artery stent placement: CODE(S): Z95.5 - Presence of coronary angioplasty implant and graft PLAN: Plan This is a 71-year-old male with multiple pre-existing medical problems, as listed herein. He presents with a small superficial abrasion/skin tear on the right lateral elbow. We are to implement the use of collagen hydrogel topically, which will be applied on a daily basis. Because of the sensitivity and fragility of the patient's skin, Adaptic is to be applied over the hydrogel, and will be held in place with Coban gently wrapped around the patient's right upper extremity. Additionally, the patient suffers from the development of spontaneous purpuric and ecchymotic lesions on his upper extremities. These often rupture, and bleed profusely. His primary care physician and a local hiv/aids care nurse/oncologist have been unable to discern the cause of these upper extremity lesions. It has been suggested that the patient be evaluated by a railroad signal and switch operator. Attempts will be made to facilitate such an appointment in the near future. The patient is to return in 1 week for reevaluation. Total time: 60 minutes
== END 2022-09-02 23:59 | disposition home or self-care (01) ==
LOC: WC 09:29
PROVIDERS: PCP Internal Medicine; Visit Provider Surgery
DX: S51.011A Laceration without foreign body of right elbow, initial encounter (principal); S50.811A Abrasion of right forearm, initial encounter; X58.XXXA Exposure to other specified factors, initial encounter; R23.8 Other skin changes; E66.01 Morbid (severe) obesity due to excess calories; Z68.41 Body mass index [BMI] 40.0-44.9, adult; D69.2 Other nonthrombocytopenic purpura; K42.9 Umbilical hernia without obstruction or gangrene; M10.9 Gout, unspecified; K64.9 Unspecified hemorrhoids; I10 Essential (primary) hypertension; N40.0 Benign prostatic hyperplasia without lower urinary tract symptoms; E78.5 Hyperlipidemia, unspecified; R73.03 Prediabetes; K21.9 Gastro-esophageal reflux disease without esophagitis; J45.50 Severe persistent asthma, uncomplicated; G47.33 Obstructive sleep apnea (adult) (pediatric); H26.9 Unspecified cataract; I25.10 Atherosclerotic heart disease of native coronary artery without angina pectoris; Z79.82 Long term (current) use of aspirin; Z79.01 Long term (current) use of anticoagulants; Z79.02 Long term (current) use of antithrombotics/antiplatelets; Z79.899 Other long term (current) drug therapy; Z95.5 Presence of coronary angioplasty implant and graft
CPT/HCPCS: 99213; G0463

== ENCOUNTER → 2022-09-05 | Outpatient (CLI) | payer MEDICARE, BC, SELFPAY ==
[2022-08-27 14:41] VITALS: BMI 41.1
[2022-09-05 13:32] VITALS: BP 128/69; PULSE 95; RESP 16; O2SAT 94; BMI 40.8
[2022-09-05] MEDS: Mepolizumab 100 MG VIAL SQ ×3 (13:43)
== END | disposition home or self-care (01) ==
LOC: MEDOUTP 13:19
PROVIDERS: PCP Internal Medicine; Referring Provider Nurse Practitioner Acute Care; Visit Provider Nurse Practitioner Acute Care
DX: M30.1 Polyarteritis with lung involvement [Churg-Strauss] (principal)
CPT/HCPCS: 96372; J2182

== ENCOUNTER 2022-09-09 10:25 | Outpatient (RCR) | payer MEDICARE, BC, SELFPAY ==
[2022-08-27 14:41] VITALS: BMI 41.1
[2022-09-03 00:37] VITALS: BP 141/74; PULSE 76; TEMP 36.2; BMI 41.1
[2022-09-09 10:58] VITALS: BP 118/79; PULSE 75; TEMP 35.8; BMI 41.1
--- NOTE | 2022-09-09 13:49 | PCM.WC.HP ---
History of Present Illness Date of Service: 09/09/22 Chief Complaint: Skin tear of the right elbow History of Wound: This is a 71-year-old male with multiple pre-existing medical conditions, as listed below. In the last several years, he has noted the development of spontaneous ecchymoses, bruises, and purpura on his upper extremities. For the most part, these occur spontaneously without explanation. These lesions do not occur elsewhere on his body. They frequently unroof, resulting in superficial ulcerations, which subsequently heal. The patient underwent a coronary angioplasty with stent placement on August 14, 2022, performed at [facility], at which time he sustained a small skin tear on the right elbow. He presented here for evaluation and management. Subsequent to his recent coronary artery stent placement, he has been on Brilinta. However, his purpuric lesions have predated the initiation of this medication by several years. The patient indicates that the lesions often bleed profusely once they have unroofed. He has been using a commercial product called Wound Seal which is an [id number] product to help control the bleeding. It is a hemostatic agent. He has been evaluated by Dr. Johnson, his primary care physician, and Dr. Arteaga, with no resolution to his problem. He is extremely careful in the use of adhesive tape, and has found a silicone tape which appears to be well-tolerated. [facility] Medical History Abnormal bruising Arthritis Asthma Asthmatic bronchitis with acute exacerbation Atherosclerosis of coronary artery of [place] heart without angina pectoris Bilateral lower extremity edema BPH (benign prostatic hyperplasia) Cataract Cataracts, bilateral Chronic cough Chronic sinusitis Cough DDD (degenerative disc disease) Easy bruising Epithelial inclusion cyst Essential hypertension Fatigue Flu vaccine need GERD (gastroesophageal reflux disease) Gout Hay fever Hemorrhoids Hemorrhoids History of left heart catheterization Hyperlipidemia Insomnia Lung disease Morbid obesity Multiple ecchymoses of both upper arms Obesity (BMI 30-39.9) CARMELLA (obstructive sleep apnea) PND (post-nasal drip) Pre-diabetes Recurrent kidney stones Recurrent pneumonia Shortness of breath Skin tear of right elbow without complication Umbilical hernia URI (upper respiratory infection) Home Medications mepolizumab 100 mg/mL subcutaneous auto-injector (Nucala) 300 mg subcut Q4W 02/18/21 [History Last Taken Unknown] multivitamin 1 tab PO DAILY 09/19/20 [History Last Taken Unknown] PEP device #1 ea 06/12/22 [Rx Last Taken Unknown] allopurinol 300 mg tablet 300 mg PO DAILY #90 tabs 07/16/22 [Rx Last Taken Unknown] cholecalciferol (vitamin D3) 25 mcg (1,000 unit) capsule 25 mcg PO DAILY #90 caps 07/16/22 [Rx Last Taken Unknown] fluticasone propionate 230 mcg-salmeterol 21 mcg/actuation HFA inhaler (Advair HFA) 2 puff inhalation Q12H #3 ea 07/16/22 [Rx Last Taken Unknown] guaifenesin 1,200 mg tablet, extended release 12 hr 1,200 mg PO Q12H #60 tabs 07/16/22 [Rx Last Taken Unknown] irbesartan 150 mg tablet 150 mg PO DAILY #90 tabs 07/16/22 [Rx Last Taken Unknown] lansoprazole 30 mg capsule,delayed release (Prevacid) 30 mg PO DAILY #90 caps 07/16/22 [Rx Last Taken Unknown] loratadine 10 mg tablet 10 mg PO DAILY #90 tabs 07/16/22 [Rx Last Taken Unknown] montelukast 10 mg tablet 10 mg PO QPM #90 tabs 07/16/22 [Rx Last Taken Unknown] rosuvastatin 5 mg tablet 2.5 mg PO QODAY #90 tabs 07/16/22 [Rx Last Taken Unknown] tamsulosin 0.4 mg capsule 0.4 mg PO DAILY #90 caps 07/16/22 [Rx Last Taken Unknown] tiotropium bromide 1.25 mcg/actuation mist for inhalation (Spiriva Respimat) 2 puff inhalation DAILY #3 ea 07/16/22 [Rx Last Taken Unknown] trazodone 100 mg tablet 100 mg PO QHS PRN insomnia 90 days #40 tabs 07/16/22 [Rx Last Taken Unknown] albuterol sulfate 90 mcg/actuation aerosol inhaler (Ventolin HFA) 2 puff inhalation Q4H PRN shortness of breath or wheezing #18 grams 07/17/22 [Rx Last Taken Unknown] ipratropium bromide 42 mcg (0.06 %) nasal spray 1 spray intranasal BID #15 mL 07/17/22 [Rx Last Taken Unknown] aspirin 81 mg chewable tablet 81 mg PO BREAKFAST #90 tabs 08/15/22 [Rx Last Taken Unknown] ticagrelor 90 mg tablet (Brilinta) 90 mg PO BID #180 tabs 08/15/22 [Rx Last Taken Unknown] albuterol sulfate 2.5 mg/3 mL (0.083 %) solution for nebulization 2.5 mg inhalation .COMPLEX Sob &/Or Wheezing 09/01/22 [History Last Taken Unknown] sodium chloride 5 % eye ointment 1 applic topical DAILY PRN Dry Eye(S) 09/01/22 [History Last Taken Unknown] clopidogrel 75 mg tablet 75 mg PO .COMPLEX #90 tabs 09/03/22 [Rx Last Taken Unknown] Allergy/AdvReac Type Severity Reaction Status Date / Time lisinopril AdvReac Intermediate cough Verified 09/05/22 13:31 simvastatin AdvReac Intermediate elevated Verified 09/05/22 13:31 liver enzymes Family History Father Cancer Bone Marrow Surgical History History of cataract extraction History of cataract extraction History of coronary artery stent placement (08/14/22) History of coronary artery stent placement History of lumbar discectomy History of orthopedic surgery History of tonsillectomy History of tonsillectomy History of uvulectomy History of uvulectomy S/P correction of deviated nasal septum Social History household members: spouse housing: house Smoking Status: Never smoker alcohol intake: current alcohol intake frequency: a few times a month Alcohol type: beer and wine substance use type: does not use what type of physical activity do you participate in: none Vital Signs Vital Signs Vital Signs: 09/09/22 10:58 Temperature 96.4 F L Temperature Source Temporal Pulse Rate 75 Blood Pressure 118/79 Blood Pressure Mean 92 Blood Pressure Source Monitor Weight Weight: 287 lb Body Mass Index (BMI) 41.1 Physical Exam Const alert, oriented x3, no apparent distress and well nourished Constitutional Narrative: The patient is obese. General Appearance: cooperative, comfortable, well kempt and well developed Orientation / Consciousness: awake, oriented to person, oriented to place and oriented to time Exam Limitations: no limitations HEENT normocephalic, head/scalp atraumatic and hearing grossly normal bilaterally Head and Scalp: normal to inspection, normocephalic and atraumatic Face and Sinus: normal facial exam Nose: external nose normal External Ear: external ears normal Eyes PERRL and EOMs intact bilaterally General Eye: normal appearance of both eyes Neck full ROM Resp normal respiratory effort, normal air movement, no retractions and no use of accessory muscles Effort and Inspection: able to speak in complete sentences Extremity no calf tenderness General Extremity: Negative for clubbing or cyanosis Skin Wound Narrative: Multiple purpuric and ecchymotic lesions are noted in the patient's upper extremities, of various sizes. The small superficial abrasion on the patient's right elbow, for which he was evaluated 1 week ago, is now completely healed and epithelialized. There are currently no open wounds or ulcerations on his upper extremities, although numerous purpuric lesions persist bilaterally on his arms. Neuro oriented x3, CN's II-XII intact bilaterally and moves all extremities Sensorium / Orientation: awake, alert, oriented to person, oriented to place and oriented to time Psych Appearance: grossly normal and appropriate Attitude: calm Activity / Motor Behavior: appropriate eye contact Speech: normal speech Mood & Affect: euthymic mood Thought Process: normal thought process Thought Content: normal thought content Attention / Concentration: attention grossly intact Debridement Note Debridement Note No debridement was completed: No debridement was completed today (There are no open wounds or ulcerations.) Post-Debridement Measurements and Additional Note: Post-Debridement Measurements/Treatment KHARI - Nurse 1 - General Ulcer Assessment Start: 09/09/22 10:58 Freq: Status: Active Protocol: RUBY Activity Type Activity Date Activity User E-sign Co-sign Detail Recorded Client Recorded Date Recorded By Document 09/09/22 10:58 LUIS ALFREDO [id number] 09/09/22 11:00 LUIS ALFREDO 09/09/22 10:58 - Today's Visit Information Type of service Follow-up Visit (Physician/GRINDER HARDBOARD ) Arrival Mode Ambulatory Patient Identification Verified (Name & Yes ) Patient Requires Transmission-Based No Precautions Safety Precautions NA Height and Weight Body Mass Index (BMI) 41.1 BMI Classification Obese Vital Signs Temperature (97.8 F-99.1 F) 96.4 F L Temperature Source Temporal Pulse Rate (60-100) 75 Pulse Location Monitor Blood Pressure (90/60-120/80) 118/79 Blood Pressure Mean 92 Source Monitor History Since Last Visit- (Skip if this is Patient's initial visit) Have you changed medications since your No last visit? Any new allergies or adverse reactions No Had a fall/change in ADL's that may No increase risk of falls Signs or symptoms of abuse and/or No neglect since last visit Have you been in the hospital since your No last visit? Has dressing in place as prescribed No Has compression in place as prescribed N/A Has offloadiing in place as prescribed N/A Experienced any changes in pain level or No management Left Footwear Regular Shoe Right Footwear Regular Shoe Pain Scale: 0-10 Numeric Is Patient Pain Free? Yes KHARI - Nurse 1 - General Ulcer Measurement Start: 09/09/22 10:58 Freq: Status: Active Protocol: Activity Type Activity Date Activity User E-sign Co-sign Detail Recorded Client Recorded Date Recorded By Document 09/09/22 10:58 LUIS ALFREDO [id number] 09/09/22 11:00 LUIS ALFREDO 09/09/22 10:58 Wound Center Nurse 1 #1 R lateral elbow -Combined with other wound No -Current Size (cm) - Length 0.1 -Current Size (cm) - Width 0.1 -Current Size (cm) - Depth 0.1 -Total Square Cm 0.01 -Photo Taken Yes -Tunneling No -Undermining/Tunneling No -Circular Undermining No -Change in Wound Grade/Stage No -Exudate Amt None Present -Wound Margin Distinct, Outline Attached -Granulation Amt None Present (0 %) -Granulation Quality N/A -Slough/Fibrin No -Necrosis Amt None Present (0 %) -Structure Exposed N/A -Texture (Kiki-wound Skin Appearance) No Abnormality, Assessed -Moisture (Kiki-wound Skin Appearance) No Abnormality, Assessed -Color (Kiki-wound Skin Appearance) Assessed, Hemosiderin Staining -Temperature (Kiki-wound Skin No Abnormality Appearance) (Pt Warm) -Tenderness on Palpation (Kiki-wound No Skin Appearance) -Ulcer Cleansing Rinsed/ Irrigated with Saline -Foul Odor after Cleansing No -Wound Comment(s) healed but still alot of bruising on jordana arms KHARI - Nurse 2 - General Ulcer CM Notes Start: 09/09/22 10:58 Freq: Status: Active Protocol: Activity Type Activity Date Activity User E-sign Co-sign Detail Recorded Client Recorded Date Recorded By Document 09/09/22 11:37 PL [id number] 09/09/22 11:38 PL 09/09/22 11:37 Wound Center Nurse 2 -Procedure Performed No -Wound/Ulcer Outcome Healed- Epithelialized Pain Scale: 0-10 Numeric Is Patient Pain Free? Yes WC - Nurse 3 - General Ulcer D/C NN Start: 09/09/22 10:58 Freq: Status: Active Protocol: Activity Type Activity Date Activity User E-sign Co-sign Detail Recorded Client Recorded Date Recorded By Document 09/09/22 11:37 PL [id number] 09/09/22 11:38 PL 09/09/22 11:37 Is Patient Pain Free? Yes WC - Visit Discharge Discharge Condition Stable Ambulatory Status Ambulatory Transportation Private Auto Assessment/Plan Assessment/Plan (1) Abrasion of right forearm, initial encounter: CODE(S): S50.811A - Abrasion of right forearm, initial encounter (2) Skin tear of right elbow without complication: CODE(S): S51.011A - Laceration without foreign body of right elbow, initial encounter QUALIFIERS: Encounter type: initial encounter Qualified Code(s): S51.011A - Laceration without foreign body of right elbow, initial encounter (3) Purpura: CODE(S): D69.2 - Other nonthrombocytopenic purpura (4) Multiple ecchymoses of both upper arms: CODE(S): R58 - Hemorrhage, not elsewhere classified (5) Atherosclerosis of coronary artery of [place] heart without angina pectoris: CODE(S): I25.10 - Atherosclerotic heart disease of [place] coronary artery without angina pectoris (6) History of coronary artery stent placement: CODE(S): Z95.5 - Presence of coronary angioplasty implant and graft (7) CAD (coronary artery disease): CODE(S): I25.10 - Atherosclerotic heart disease of [place] coronary artery without angina pectoris (8) Essential hypertension: CODE(S): I10 - Essential (primary) hypertension (9) Hyperlipidemia: CODE(S): E78.5 - Hyperlipidemia, unspecified (10) Chronic cough: CODE(S): R05 - Cough (11) CARMELLA (obstructive sleep apnea): CODE(S): G47.33 - Obstructive sleep apnea (adult) (pediatric) (12) BMI 40.0-44.9, adult: CODE(S): Z68.41 - Body mass index [BMI] 40.0-44.9, adult (13) Asthma: CODE(S): J45.909 - Unspecified asthma, uncomplicated QUALIFIERS: Asthma severity: severe Asthma persistence: persistent Asthma complication type: uncomplicated Qualified Code(s): J45.50 - Severe persistent asthma, uncomplicated (14) Easy bruising: CODE(S): R23.8 - Other skin changes (15) Pre-diabetes: CODE(S): R73.03 - Prediabetes (16) Umbilical hernia: CODE(S): K42.9 - Umbilical hernia without obstruction or gangrene (17) Morbid obesity: CODE(S): E66.01 - Morbid (severe) obesity due to excess calories (18) GERD (gastroesophageal reflux disease): CODE(S): K21.9 - Gastro-esophageal reflux disease without esophagitis (19) BPH (benign prostatic hyperplasia): CODE(S): N40.0 - Benign prostatic hyperplasia without lower urinary tract symptoms (20) DDD (degenerative disc disease): (21) Recurrent kidney stones: CODE(S): N20.0 - Calculus of kidney (22) Gout: CODE(S): M10.9 - Gout, unspecified (23) Cataracts, bilateral: CODE(S): H26.9 - Unspecified cataract (24) Hemorrhoids: CODE(S): K64.9 - Unspecified hemorrhoids (25) History of cataract extraction: CODE(S): Z98.49 - Cataract extraction status, unspecified eye (26) History of tonsillectomy: CODE(S): Z90.89 - Acquired absence of other organs (27) History of uvulectomy: CODE(S): Z90.89 - Acquired absence of other organs (28) History of lumbar discectomy: CODE(S): Z98.890 - Other specified postprocedural states (29) History of coronary artery stent placement: CODE(S): Z95.5 - Presence of coronary angioplasty implant and graft PLAN: Plan This is a 71-year-old male with multiple pre-existing medical problems, as listed herein. He presented with a small superficial abrasion/skin tear on the right lateral elbow. The abrasion is now completely healed, and there are no other open wounds or ulcerations. Therefore, the patient is to be discharged, and will follow-up henceforth on an as-needed basis. The patient suffers from the development of spontaneous purpuric and ecchymotic lesions on his upper extremities. These often rupture, and bleed profusely. He is currently taking Brilinta, as prescribed by his meat cooler, but his lesions predate the initiation of this medication by several years. The patient's recent platelet count was 217,000. His primary care physician and a local manufacturing industrial engineer/oncologist have been unable to discern the cause of these upper extremity lesions. It has been suggested that the patient be evaluated by a evs tech. The patient is to seek evaluation by a local evs tech in the near future, and it is hoped that a definitive diagnosis and management plan can be implemented in response to these numerous purpuric lesions. Total time: 25 minutes
== END 2022-09-09 10:54 | disposition home or self-care (01) ==
LOC: WC 10:25
PROVIDERS: PCP Internal Medicine; Referring Provider Surgery; Visit Provider Surgery
DX: Z09 Encounter for follow-up examination after completed treatment for conditions other than malignant neoplasm (principal); E66.01 Morbid (severe) obesity due to excess calories; D69.2 Other nonthrombocytopenic purpura; N20.0 Calculus of kidney; Z95.5 Presence of coronary angioplasty implant and graft; R73.03 Prediabetes; H26.9 Unspecified cataract; I25.10 Atherosclerotic heart disease of native coronary artery without angina pectoris; M10.9 Gout, unspecified; J45.50 Severe persistent asthma, uncomplicated; G47.33 Obstructive sleep apnea (adult) (pediatric); K64.9 Unspecified hemorrhoids; E78.5 Hyperlipidemia, unspecified; N40.0 Benign prostatic hyperplasia without lower urinary tract symptoms; I10 Essential (primary) hypertension; K42.9 Umbilical hernia without obstruction or gangrene; K21.9 Gastro-esophageal reflux disease without esophagitis; Z79.82 Long term (current) use of aspirin; Z79.899 Other long term (current) drug therapy
CPT/HCPCS: 99213; G0463

== ENCOUNTER 2022-09-24 15:45 | Outpatient (RCR) | payer MEDICARE, BC, SELFPAY ==
[2022-08-27 14:41] VITALS: BMI 41.1
--- NOTE | 2022-09-24 11:43 | PCM.CR.ITP ---
Diagnosis Exercise - 30-day Assessment - Visit Date of Eval: 09/24/22 Session #:: 8 - Physician Prescribed Exercise Modalities: Treadmill, NuStep, SciFit Frequency: 3x/week for 12 weeks [36 sessions] Intensity: 60-80% of age predicted maximum heart rate reserve Duration: 30 - 45 minutes Current METSs:: 3.5 Target Heart Rate:: 98-113 Current RPE:: 11-13 Maximum Excercise HR:: 128 Resting Blood Pressure: 112/58 Maximum Exercise Blood Pressure: 140/72 EKG Type: NSR to sinus tach with rare multi-focal PVCs. Current Physical Activity or Exercising minutes: 41 - Outcomes & Goals Goals:: Verbalizes understanding of THR, RPE & goal METS by session 6, Documents in home exercise log/reports 30 min aerobic 5 day/wk by DC, Demonstrates accurate pulse taking by DC - Intervention & Plan Exercise Program Goals: Instruct on personal THR & RPE, Instruct on MET level & personal MET goal, Show patient to take own pulse /validate performance until accurate, Instruct on home exercise - 30-day Reassessments 30 day Reassessments:: Progressing - Physical Activity Home Exercise Physical Activity - Home Exercise: Safe Exercise, Warm-up, Self-monitoring, Cool-Down, Home Exercise > 30 min Daily, Sitting Time <3 hours/daily - Outcomes & Goals Outcomes/Goals: Demonstrates correct Warm-up/exercise Cool-Down (S3) if = 2.5 METs, Verbalizes symptoms of exercise intolerance by Session 3 (S3), Demonstrate safe equipment use (S3) & follows exercise prescrition (6) - Intervention & Plan Plan/Intervention: Instruct warm-up & cool-down if exercising at > 2 METs, Instruct on symptoms of exercise intolerance & actions to take, Instruct & monitor on saf, Assess intial functional capacity & safety risk - 30-day Reassessments 30 day Reassessments:: Progressing Nutrition - Initial Assessment Nutrition - 30-Day Assessment - Program Goals Nutrition Program Goals: LDL <100 optimal. 100 - 129 Near optimal. 130 - 159 Borderline High. 160 - 189 High. Total Cholesterol <200 desirable. 200 - 239 Borderline High. >/= 240 High. HDL < 40 Low >/=60 High. Triglycerides <150 desirable. <199 optimal. VlDL 5 - 40. HgbA1C <7%. BMI <25 Patient has diagnosis of Hyperlipidemia (ICD E78)?: Yes - Visit Date of Assessment:: 09/24/22 Session #:: 9 - Cholesterol/Lipids (Other Core Measures) Determine presence & major risk factors that modify LDL goal: Hypertension or hypertensive medication, Age men > 45 years; women >/= 55 years Outcomes/Goals: Pt IDs own risk factors & lifestyle modifications by Session 10, Verbalizes symptoms of angina & response by session 3., Pt independently manages Intervention/Plan: Instruct on personal lipid levels & lipid goals/NCEP guidelines, Instruct on cholesterol Referral to dietitian:: Yes - Medical Nutrition Therapy 30-day Reassessments:: Progressing - Diabetes (Other Core Measures) Diabetes Type: Not Applicable - Weight Mgt (Other Care) Not Applicable: No Height: 5 ft 10 in Weight:: 285 lb - Morbid Obesity BMI: 40.8 Diagnosis Overweight/Obesity BMI> 30% ICD-10 E66: Yes Diagnosis High BMI/Morbid Obesity BMI> 35% ICD-10 Z68: Yes Outcomes/Goals: Pt sets, maintains & shows weight loss goal & trend during rehab Intervention/Plan: Instruct on ideal BMI & set weight loss goal w/patient, Assist pt to ID & incorporate diet changes for weight loss by S9, Refer to Structured Weight Loss program as appropriate, Encourage goal of using 250-300dcal per session for weight loss 30 day Reassessments:: Not Met - No weight loss since starting the CR program - Healthy Eating Habits Will attend diet classes:: Yes Outcomes/Goals:: Consume diet rich in vegs,fruits,whole grain/high fiber,fish,lean meat, Limit sat/trans fats,cholesterol & added salts & sugars Intervention/Plan:: Assess current eating habits 30-day Reassessments:: Not Met - Education Gave educational materials for:: Healthy eating Nutrition - 60-Day Assessment Nutrition - 90-Day Assessment Nutrition - Final Assessment Core - Initial Assessment Core - 30-Day Assessment - Visit Date of Eval: 09/24/22 Session #:: 9 - Medication Compliance Preventative Medication(s):: Aspirin, Clopidogrel/P2Y12 inhibit, Statin/lipid, Beta jay H/O mental health issues: depression, anxiety, or addiction?: No Doesn?t believe in the benefits of treatment?: No Believes medications are unnecessary or harmful?: No Has a concern about medication side effects?: No Expresses concern over the cost of medications?: No Outcomes/Goals: Verbalizes medications,desired effect & common side effects @ DC, Pt self-reports following medication regimen, Keeps card in wallet w/medications listed by DC Interventions/plans: Instruct on medication effects & side effects, Review medication list w/patient every two weeks, Instruct importance of taking meds as ordered & assist problem solving 30-day Reassessments:: Met - Tobacco Use Tobacco Use: Non-smoker - Hypertension Hypertension Diagnosis:: Hypertension ICD-10 I10 Resting Blood Pressure:: 112/58 [employer] Hypertension Guidelines: [place] [employer] Hypertension Guidelines. Normal BP Less than 120/80. Elevated BP 120/80. Hypertension Stage 1: BP 130-139/80-89. Hypertesnion Stage 2: BP 140 or higher/90 or higher. Hypertension Crisis: BP higher than 180/120 Peak Exercise Blood Pressure:: 140/72 Outcomes/Goals: Able to verbalize/achieve optimal blood pressure <130/80 Interventions/plan: Instruct on optimal blood pressure, hypertension & medications, Instruct on effects of sodium, alcohol, stress, exercise &hypertension 30 day Reassessments:: Met - Tobacco Cessation Referral Smoking Cessation Referral:: No Individual Education/Counseling:: No Education Schedule Given:: Yes Core - 60-Day Assessment Core - 90 Day Assessment Core - Final Assessment Psychosocial - Initial Assess Psychosocial - 30-Day Assess - VIsit Date of Eval: 09/24/22 Session #:: 9 Not Applicable: Yes History of previous Mental disease:: No - Psychosocial Test Tool Used:: PHQ-9 Questionnaire phq-9 Severity: Severity. 1-4 Minimal Depression. 5-9 Mild Depression. 10-14 Moderate Depression. 15-19 Moderately Sever Depression. 20-27 Severe Depression. Rule: - Referral to Behavioral Health PS - Interventions: Yes Attend Stress Management Classes, No Referral to Behavioral Health if PHQ-9 score >9:, No Referral to [facility], No Referral to Physician if PHQ-9 if score is 5-9: - Outcomes/Goals: See list Psychosocial Outcomes/Goals:: ID's personal stressors & 2 strategies to manage stress by discharge - Intervention/Plan: See List Interventions/Plan:: Assess stressors,coping strategies & signs of derpression on admission, Instruct/assist pt to develop coping & personal stress Mgt strategies, Instruct patient to recognize signs & symptoms of depression, Instruct patient to recog - 30-day Reassessments: 30 day Reassessments:: Progressing Psychosocial - 60-Day Assess Psychosocial - 90-Day Assess Psychosocial - Final Assessmen Patient Health Questionnaire 30-Day Re-eval Assessment 1. Little interest or pleasure in doing things: Not at all 2. Feeling down, depressed, or hopeless: Not at all 3. Trouble falling or staying asleep, or sleeping too much: Nearly every day 4. Feeling tired or having little energy: Several days 5. Poor appetite or overeating: More than half the days 6. Feeling bad about yourself -- or that you are a failure or have let yourself or your family down: Not at all 7. Trouble concentrating on things, such as reading the newspaper or watching television: Not at all 8. Moving or speaking so slowly that other people could have noticed. Or the opposite - being so fidgety or restless that you have been moving around a lot more than usual: Not at all 9. Thoughts that you would be better off , or of hurting yourself in some way: Not at all How difficult have these problems made it for you to do your work, take care of things at home, or get along with other people?: Somewhat difficult Total Score: 6 Self-Efficacy 30-Day Re-eval Assessment We would like to know how confident you are in doing certain activities. Please select your confidence level for:: Select your confidence level for the following using the scale 1-10 where 1 is not at all confident and 10 is totally confident. Your score is the average of all 6 responses. Fatigue: How confident are you that you can keep the fatigue caused by your disease from interfering with the things you want to do? Select Number: 10 Physical Discomfort or Pain: How confident are you that you can keep the physical discomfort or pain of your disease from interfering with the things you want to do? Select Number: 10 Emotional Distress: How confident are you that you can keep the emotional distress caused by your disease from interfering with the things you want to do? Select Number: 10 Other Symptoms or Health Problems: How confident are you that you can keep other symptoms or health problems from interfering with the things you want to do? Select Number: 5 Different Tasks and Activities: How confident are you that you can do the different tasks and activities needed to manage your health condition so as to reduce your need to see a doctor? Select Number: 7 Medication: How confident are you that you can do things other than just taking medication to reduce how much your illness affects your everyday life? Select Number: 10 Total Score:: 8 Nutrition Survey
[2022-09-24 11:51] VITALS: BP 112/58; BP 140/72; BMI 40.8
== END 2022-10-03 23:59 ==
LOC: CR 15:45
PROVIDERS: PCP Internal Medicine; Referring Provider Internal Medicine Cardiovascular Disease; Visit Provider Internal Medicine Cardiovascular Disease
DX: I25.10 Atherosclerotic heart disease of native coronary artery without angina pectoris (principal); Z95.5 Presence of coronary angioplasty implant and graft; I10 Essential (primary) hypertension; E78.5 Hyperlipidemia, unspecified
CPT/HCPCS: 93798

== ENCOUNTER → 2022-10-06 | Outpatient (CLI) | payer MEDICARE, BC, SELFPAY ==
[2022-08-27 14:41] VITALS: BMI 41.1
[2022-09-24 11:51] VITALS: BMI 40.8
[2022-10-06 14:14] VITALS: BP 138/68; PULSE 94; RESP 20; TEMP 36.3; O2SAT 93
[2022-10-06] MEDS: Mepolizumab 100 MG VIAL SQ ×3 (14:35)
== END | disposition home or self-care (01) ==
LOC: MEDOUTP 13:56
PROVIDERS: PCP Internal Medicine; Referring Provider Nurse Practitioner Acute Care; Visit Provider Nurse Practitioner Acute Care
DX: M30.1 Polyarteritis with lung involvement [Churg-Strauss] (principal)
CPT/HCPCS: 96372; J2182

== ENCOUNTER 2022-10-29 15:45 | Outpatient (RCR) | payer MEDICARE, BC, SELFPAY ==
[2022-10-04 02:08] VITALS: BP 112/58; BP 140/72
== END 2022-11-02 23:59 ==
LOC: CR 15:45
PROVIDERS: PCP Internal Medicine; Referring Provider Internal Medicine Cardiovascular Disease; Visit Provider Internal Medicine Cardiovascular Disease
DX: I25.10 Atherosclerotic heart disease of native coronary artery without angina pectoris (principal); Z95.5 Presence of coronary angioplasty implant and graft; I10 Essential (primary) hypertension; E78.5 Hyperlipidemia, unspecified
CPT/HCPCS: 93798

== ENCOUNTER 2022-10-31 12:18 | Outpatient (CLI) | payer MEDICARE, BC, SELFPAY ==
[2022-10-31 12:27] VITALS: BP 130/59; PULSE 74; RESP 18; O2SAT 93; BMI 40.1
[2022-10-31] MEDS: Mepolizumab 100 MG VIAL SQ ×3 (12:55)
== END 2022-10-31 12:19 | disposition home or self-care (01) ==
LOC: MEDOUTP 12:18
PROVIDERS: PCP Internal Medicine; Referring Provider Nurse Practitioner Acute Care; Visit Provider Nurse Practitioner Acute Care
DX: M30.1 Polyarteritis with lung involvement [Churg-Strauss] (principal)
CPT/HCPCS: 96372; J2182

== ENCOUNTER → 2022-11-12 | Outpatient (CLI) | payer MEDICARE, BC, SELFPAY ==
[2022-11-11 13:19] VITALS: BMI 40.8
--- NOTE | 2022-11-12 10:08 | RAD_ITS ---
STUDY: X-RAY - BILATERAL RIBS REASON FOR EXAM: Male, 71 years old. Right rib pain, thoracic back pain TECHNIQUE: 9 view(s) of the ribs. COMPARISON: None. FINDINGS: Normal visualized ribs without a demonstrated fracture. The visualized lungs are clear and expanded. Normal heart, mediastinum and pulmonary richard. RAD/Ribs Bilat 3V No CXR IMPRESSION: Normal x-ray examination of the bilateral ribs. Electronically Signed: Paolo Ricks MD at 19:18 EDT ,
--- NOTE | 2022-11-12 10:10 | RAD_ITS ---
STUDY: X-RAY - THORACIC SPINE REASON FOR EXAM: Male, 71 years old. thoracic back pain TECHNIQUE: 3 view(s) of the thoracic spine were obtained. COMPARISON: CT scan 08/12/2022. FINDINGS: Normal kyphosis of the thoracic spine. There is no substantial scoliosis. There is multilevel endplate spondylosis of the thoracic vertebrae. There is multilevel disc space narrowing of the thoracic spine. The soft tissue structures are unremarkable. RAD/Thoracic Spine 3 Views IMPRESSION: Degenerative changes. No acute abnormalities. Electronically Signed: Paolo Ricks MD at 17:49 EDT ,
== END | disposition home or self-care (01) ==
LOC: RAD 10:05
PROVIDERS: PCP Internal Medicine; Referring Provider Internal Medicine; Visit Provider Internal Medicine
DX: M54.6 Pain in thoracic spine (principal); R07.81 Pleurodynia
CPT/HCPCS: 71110; 72072

== ENCOUNTER 2022-11-28 10:05 | Outpatient (CLI) | payer MEDICARE, BC, SELFPAY ==
[2022-11-11 13:19] VITALS: BMI 40.8
[2022-11-28 10:47] VITALS: BP 129/68; PULSE 66; RESP 18; TEMP 36.3
[2022-11-28] MEDS: Mepolizumab 100 MG VIAL SQ ×3 (11:05)
== END 2022-11-28 10:06 | disposition home or self-care (01) ==
LOC: MEDOUTP 10:06
PROVIDERS: PCP Internal Medicine; Referring Provider Nurse Practitioner Acute Care; Visit Provider Nurse Practitioner Acute Care
DX: M30.1 Polyarteritis with lung involvement [Churg-Strauss] (principal)
CPT/HCPCS: 96372; J2182

== ENCOUNTER 2022-12-03 15:45 | Outpatient (RCR) | payer MEDICARE, BC, SELFPAY ==
[2022-11-03 00:41] VITALS: BP 112/58; BP 140/72
== END 2022-12-03 23:59 ==
LOC: CR 15:45
PROVIDERS: PCP Internal Medicine; Referring Provider Internal Medicine Cardiovascular Disease; Visit Provider Internal Medicine Cardiovascular Disease
DX: I25.10 Atherosclerotic heart disease of native coronary artery without angina pectoris (principal); Z95.5 Presence of coronary angioplasty implant and graft; I10 Essential (primary) hypertension; E78.5 Hyperlipidemia, unspecified
CPT/HCPCS: 93798

== ENCOUNTER 2022-12-17 15:45 | Outpatient (RCR) | payer MEDICARE, BC, SELFPAY ==
[2022-11-11 13:19] VITALS: BMI 40.8
[2022-12-04 00:34] VITALS: BP 112/58; BP 140/72
--- NOTE | 2022-12-12 12:48 | PCM.CR.ITP ---
Diagnosis Exercise - 90-day Assessment - Visit Date of Eval: 12/12/22 Session #:: 33 - Physician Prescribed Exercise Modalities: Treadmill, NuStep, SciFit Frequency: 3x/week for 12 weeks [36 sessions] Intensity: 60-80% of age predicted maximum heart rate reserve Current METSs:: 4.5 Target Heart Rate:: 113-127 Current RPE:: 12-13 Maximum Excercise HR:: 133 Resting Blood Pressure: 138/62 Maximum Exercise Blood Pressure: 140/64 EKG Type: NSR to ST with occas PVC, rare PAC - Outcomes & Goals Goals:: Verbalizes understanding of THR, RPE & goal METS by session 6, Documents in home exercise log/reports 30 min aerobic 5 day/wk by DC, Demonstrates accurate pulse taking by DC, Other additional outcome/goals: see below - Intervention & Plan Exercise Program Goals: Instruct on personal THR & RPE, Instruct on MET level & personal MET goal, Show patient to take own pulse /validate performance until accurate, Instruct on home exercise, Other additional plan/int - 30-day Reassessments 30 day Reassessments:: Met - Physical Activity Home Exercise Physical Activity - Home Exercise: Safe Exercise, Warm-up, Self-monitoring, Cool-Down, Home Exercise > 30 min Daily, Sitting Time <3 hours/daily - Outcomes & Goals Outcomes/Goals: Demonstrates correct Warm-up/exercise Cool-Down (S3) if = 2.5 METs, Verbalizes symptoms of exercise intolerance by Session 3 (S3), Demonstrate safe equipment use (S3) & follows exercise prescrition (6), Other: See below - Intervention & Plan Plan/Intervention: Instruct warm-up & cool-down if exercising at > 2 METs, Instruct on symptoms of exercise intolerance & actions to take, Instruct & monitor on saf, Assess intial functional capacity & safety risk, Other See below - 30-day Reassessments 30 day Reassessments:: Met Nutrition - Initial Assessment Nutrition - 30-Day Assessment Nutrition - 60-Day Assessment Nutrition - 90-Day Assessment - Program Goals Nutrition Program Goals: LDL <100 optimal. 100 - 129 Near optimal. 130 - 159 Borderline High. 160 - 189 High. Total Cholesterol <200 desirable. 200 - 239 Borderline High. >/= 240 High. HDL < 40 Low >/=60 High. Triglycerides <150 desirable. <199 optimal. VlDL 5 - 40. HgbA1C <7%. BMI <25 Patient has diagnosis of Hyperlipidemia (ICD E78)?: Yes - Visit Date of Assessment:: 12/12/22 Session #:: 33 - Cholesterol/Lipids (Other Core Measures) Determine presence & major risk factors that modify LDL goal: Hypertension or hypertensive medication, Low HDL cholesterol <40 mg/dL*, Family history of premature CHD in Male < 55 years: female <65 yearsFa, Age men > 45 years; women >/= 55 years Outcomes/Goals: Pt IDs own risk factors & lifestyle modifications by Session 10, Verbalizes symptoms of angina & response by session 3., Pt independently manages, Other Additional Outcomes/Goals: Intervention/Plan: Advocate for lipid panel cholesterol medication if applicable, Instruct on personal lipid levels & lipid goals/NCEP guidelines, Instruct on cholesterol, Other additional plan/int Referral to dietitian:: No - pt declined 30-day Reassessments:: Met - Diabetes (Other Core Measures) Diabetes Type: Not Applicable - Weight Mgt (Other Care) Height: 5 ft 10 in Weight:: 129.274 kg BMI: 40.8 Diagnosis Overweight/Obesity BMI> 30% ICD-10 E66: Yes Diagnosis High BMI/Morbid Obesity BMI> 35% ICD-10 Z68: Yes Outcomes/Goals: Pt sets, maintains & shows weight loss goal & trend during rehab, Other additional outcomes/goals Intervention/Plan: Instruct on ideal BMI & set weight loss goal w/patient, Assist pt to ID & incorporate diet changes for weight loss by S9, Refer to Structured Weight Loss program as appropriate, Encourage goal of using 250-300dcal per session for weight loss, Other additional plan/interventions 30 day Reassessments:: Progressing - will attend nutrition class - Healthy Eating Habits Will attend diet classes:: Yes Outcomes/Goals:: Consume diet rich in vegs,fruits,whole grain/high fiber,fish,lean meat, Limit sat/trans fats,cholesterol & added salts & sugars, Other additional outcome/goals: Intervention/Plan:: Assess current eating habits, Other Additional plan/interventions 30-day Reassessments:: Progressing - will attend nutrition class - Education Gave educational materials for:: Signs & symptoms of hypoglycemia, Signs & symptoms of hyperglycemia, Relate diabetes to coronary artery disease, Healthy eating Nutrition - Final Assessment Core - Initial Assessment Core - 30-Day Assessment Core - 60-Day Assessment Core - 90 Day Assessment - Visit Date of Eval: 12/12/22 Session #:: 33 - Medication Compliance Preventative Medication(s):: Aspirin, Clopidogrel/P2Y12 inhibit, Statin/lipid, Beta jay H/O mental health issues: depression, anxiety, or addiction?: No Doesn?t believe in the benefits of treatment?: No Believes medications are unnecessary or harmful?: No Has a concern about medication side effects?: No Expresses concern over the cost of medications?: No Outcomes/Goals: Verbalizes medications,desired effect & common side effects @ DC, Pt self-reports following medication regimen, Keeps card in wallet w/medications listed by DC, Other additional outcome/goals: Interventions/plans: Instruct on medication effects & side effects, Review medication list w/patient every two weeks, Instruct importance of taking meds as ordered & assist problem solving, Other additional 30-day Reassessments:: Met - Tobacco Use Tobacco Use: Non-smoker - Hypertension Hypertension Diagnosis:: Hypertension ICD-10 I10 Resting Blood Pressure:: 138/62 [employer] Hypertension Guidelines: [employer] Hypertension Guidelines. Normal BP Less than 120/80. Elevated BP 120/80. Hypertension Stage 1: BP 130-139/80-89. Hypertesnion Stage 2: BP 140 or higher/90 or higher. Hypertension Crisis: BP higher than 180/120 Peak Exercise Blood Pressure:: 140/64 Outcomes/Goals: Able to verbalize/achieve optimal blood pressure <130/80, Incorporates diet changes & exercise for blood pressure control by DC, Other additional outcomes/goals Interventions/plan: Instruct on optimal blood pressure, hypertension & medications, Instruct on effects of sodium, alcohol, stress, exercise &hypertension, Other additional plan/interventions 30 day Reassessments:: Not Met - Tobacco Cessation Referral Smoking Cessation Referral:: No Individual Education/Counseling:: No Education Schedule Given:: Yes Core - Final Assessment Psychosocial - Initial Assess Psychosocial - 30-Day Assess Psychosocial - 60-Day Assess - VIsit Date of Eval: 12/12/22 Session #:: 33 History of previous Mental disease:: No Psychosocial - 90-Day Assess Psychosocial - Final Assessmen Patient Health Questionnaire 90-Day Re-eval Assessment 1. Little interest or pleasure in doing things: Not at all 2. Feeling down, depressed, or hopeless: Not at all 3. Trouble falling or staying asleep, or sleeping too much: Nearly every day 4. Feeling tired or having little energy: Several days 5. Poor appetite or overeating: More than half the days 6. Feeling bad about yourself -- or that you are a failure or have let yourself or your family down: Not at all 7. Trouble concentrating on things, such as reading the newspaper or watching television: Not at all 8. Moving or speaking so slowly that other people could have noticed. Or the opposite - being so fidgety or restless that you have been moving around a lot more than usual: Not at all 9. Thoughts that you would be better off , or of hurting yourself in some way: Not at all How difficult have these problems made it for you to do your work, take care of things at home, or get along with other people?: Somewhat difficult Total Score: 6 Self-Efficacy 90-Day Re-eval Assessment We would like to know how confident you are in doing certain activities. Please select your confidence level for:: Select your confidence level for the following using the scale 1-10 where 1 is not at all confident and 10 is totally confident. Your score is the average of all 6 responses. Fatigue: How confident are you that you can keep the fatigue caused by your disease from interfering with the things you want to do? Select Number: 10 Physical Discomfort or Pain: How confident are you that you can keep the physical discomfort or pain of your disease from interfering with the things you want to do? Select Number: 10 Emotional Distress: How confident are you that you can keep the emotional distress caused by your disease from interfering with the things you want to do? Select Number: 10 Other Symptoms or Health Problems: How confident are you that you can keep other symptoms or health problems from interfering with the things you want to do? Select Number: 5 Different Tasks and Activities: How confident are you that you can do the different tasks and activities needed to manage your health condition so as to reduce your need to see a doctor? Select Number: 7 Medication: How confident are you that you can do things other than just taking medication to reduce how much your illness affects your everyday life? Select Number: 10 Total Score:: 8 Nutrition Survey
[2022-12-12 12:57] VITALS: BP 138/62; BP 140/64; BMI 40.8
== END 2023-01-02 23:59 ==
LOC: CR 15:45
PROVIDERS: PCP Internal Medicine; Referring Provider Internal Medicine Cardiovascular Disease; Visit Provider Internal Medicine Cardiovascular Disease
DX: I25.10 Atherosclerotic heart disease of native coronary artery without angina pectoris (principal); Z95.5 Presence of coronary angioplasty implant and graft; I10 Essential (primary) hypertension; E78.5 Hyperlipidemia, unspecified
CPT/HCPCS: 93798

== ENCOUNTER 2022-12-26 13:42 | Outpatient (CLI) | payer MEDICARE, BC, SELFPAY ==
[2022-11-11 13:19] VITALS: BMI 40.8
[2022-12-12 12:57] VITALS: BMI 40.8
[2022-12-26 13:53] VITALS: BP 143/67; PULSE 97; RESP 18; TEMP 36.2; O2SAT 94
[2022-12-26] MEDS: tezepelumab-ekko 210 MG/1.91 ML SYRINGE SC (13:57)
[2022-12-26 16:40] LABS: AST(SGOT) 43 U/L (15-37); Alanine Aminotransfer ALT/SGPT 36 U/L (16-61); Albumin, Serum 3.6 g/dL (3.2-5.0); Alkaline Phosphatase 97 U/L (45-117); Bilirubin, Direct 0.21 mg/dL (0.00-0.30); Cholesterol 154 mg/dL (200); Globulin 3.4 g/dL (2.2-4.2); High Density Lipoprotein 64 mg/dL; Triglycerides 67 mg/dL; Very Low Density Lipoprotein 13 mg/dL (5-40)
== END 2022-12-26 13:43 | disposition home or self-care (01) ==
PROVIDERS: Internal Medicine Cardiovascular Disease; PCP Internal Medicine; Referring Provider Nurse Practitioner Acute Care; Visit Provider Nurse Practitioner Acute Care
DX: J45.50 Severe persistent asthma, uncomplicated (principal); E78.5 Hyperlipidemia, unspecified
CPT/HCPCS: 36415; 80061; 80076; 96372; J2356

== ENCOUNTER 2023-01-10 23:32 | Inpatient (IN) | payer MEDICARE, BC, SELFPAY ==
[2022-12-12 12:57] VITALS: BMI 40.8
[2023-01-10 23:32] VITALS: BP 152/73; PULSE 77; RESP 18; TEMP 36.3; O2SAT 91; BMI 41.6
[2023-01-11] VITALS (15 sets, daily range): BP systolic 131–159; BP diastolic 68–78; PULSE 68–102; RESP 16–22; TEMP 36.3–37.2; O2SAT 87–96; BMI 40.8
--- NOTE | 2023-01-11 01:23 | EKG12_ITS ---
Test Reason : COUGH Blood Pressure : / mmHG Vent. Rate : 072 BPM Atrial Rate : 072 BPM P-R Int : 166 ms QRS Dur : 104 ms QT Int : 388 ms P-R-T Axes : 041 001 013 degrees QTc Int : 424 ms Normal sinus rhythm Normal ECG Confirmed by KAYLA DEAN, DREA ([id number]), medical transcription editor BERKLEY ROSAS ([id number]) on 01/12/2023 12:26:35 P M Referred By: Jerman Vigil Confirmed By:DEVORAH GARZA MD
[2023-01-11] MEDS: Albuterol 2.5 MG/3 ML VIAL.NEB. INHALATION ×3 (01:31→01:32)
[2023-01-11] MEDS: Ipratropium/Albuterol Sulfate 3 ML AMPUL.NEB INHALATION ×3 (01:31→22:57)
--- NOTE | 2023-01-11 01:41 | ED.VIS.DYS ---
HPI History of Present Illness Chief Complaint: Cough Narrative Narrative: Patient has a history of chronic bronchitis, he is presenting with 2-day history of increased sputum production cough and some slight dyspnea. No fevers or chills no abdominal pain. He is denying any chest pain or back pain. No pleuritic component. No lower extremity edema. [facility] Medical History Abnormal bruising Arthritis Asthma Asthmatic bronchitis with acute exacerbation Atherosclerosis of coronary artery of hoh heart without angina pectoris Bilateral lower extremity edema BPH (benign prostatic hyperplasia) Cataract Cataracts, bilateral Chronic cough Chronic sinusitis Cough COVID-19 DDD (degenerative disc disease) Easy bruising Epithelial inclusion cyst Essential hypertension Fatigue Flu vaccine need GERD (gastroesophageal reflux disease) Gout Hay fever Hemorrhoids Hemorrhoids History of left heart catheterization Hyperlipidemia Insomnia Lung disease Morbid obesity Multiple ecchymoses of both upper arms Obesity (BMI 30-39.9) CARMELLA (obstructive sleep apnea) PND (post-nasal drip) Pre-diabetes Recurrent kidney stones Recurrent pneumonia Shortness of breath Skin tear of right elbow without complication Umbilical hernia URI (upper respiratory infection) Home Medications multivitamin 1 tab PO DAILY 09/19/20 [History Last Taken Unknown] PEP device #1 ea 06/12/22 [Rx Last Taken Unknown] allopurinol 300 mg tablet 300 mg PO DAILY #90 tabs 07/16/22 [Rx Last Taken Unknown] cholecalciferol (vitamin D3) 25 mcg (1,000 unit) capsule 25 mcg PO DAILY #90 caps 07/16/22 [Rx Last Taken Unknown] fluticasone propionate 230 mcg-salmeterol 21 mcg/actuation HFA inhaler (Advair HFA) 2 puff inhalation Q12H #3 ea 07/16/22 [Rx Last Taken Unknown] guaifenesin 1,200 mg tablet, extended release 12 hr 1,200 mg PO Q12H #60 tabs 07/16/22 [Rx Last Taken Unknown] irbesartan 150 mg tablet 150 mg PO DAILY #90 tabs 07/16/22 [Rx Last Taken Unknown] lansoprazole 30 mg capsule,delayed release (Prevacid) 30 mg PO DAILY #90 caps 07/16/22 [Rx Last Taken Unknown] loratadine 10 mg tablet 10 mg PO DAILY #90 tabs 01/11/23 [Rx Last Taken Unknown] montelukast 10 mg tablet 10 mg PO QPM #90 tabs 07/16/22 [Rx Last Taken Unknown] rosuvastatin 5 mg tablet 2.5 mg (1/2 x 5 mg) PO QODAY #90 tabs 07/16/22 [Rx Last Taken Unknown] tamsulosin 0.4 mg capsule 0.4 mg PO DAILY #90 caps 07/16/22 [Rx Last Taken Unknown] tiotropium bromide 1.25 mcg/actuation mist for inhalation (Spiriva Respimat) 2 puff inhalation DAILY #3 ea 07/16/22 [Rx Last Taken Unknown] trazodone 100 mg tablet 100 mg PO QHS PRN insomnia 90 days #40 tabs 07/16/22 [Rx Last Taken Unknown] albuterol sulfate 90 mcg/actuation aerosol inhaler (Ventolin HFA) 2 puff inhalation Q4H PRN shortness of breath or wheezing #18 grams 07/17/22 [Rx Last Taken Unknown] aspirin 81 mg chewable tablet 81 mg PO BREAKFAST #90 tabs 08/15/22 [Rx Last Taken Unknown] albuterol sulfate 2.5 mg/3 mL (0.083 %) solution for nebulization 2.5 mg (3 mL) inhalation .COMPLEX Sob &/Or Wheezing #180 mL 09/24/22 [Rx Last Taken Unknown] azelastine-fluticasone 137 mcg-50 mcg/spray nasal spray 1 spray intranasal BID #23 grams 10/06/22 [Rx Last Taken Unknown] clopidogrel 75 mg tablet 75 mg PO DAILY #90 tabs 10/10/22 [Rx Last Taken Unknown] ipratropium bromide 42 mcg (0.06 %) nasal spray 1 spray intranasal BID PRN allergies 11/12/22 [History Last Taken Unknown] tezepelumab-ekko 210 mg/1.91 mL (110 mg/mL) subcutaneous pen injector (Tezspire) 210 mg (1.91 mL) subcut Q4W #1.91 mL 11/28/22 [Rx Last Taken Unknown] prednisone 10 mg tablet 10 mg PO QODAY 01/10/23 [History Last Taken Unknown] Allergy/AdvReac Type Severity Reaction Status Date / Time lisinopril AdvReac Intermediate cough Verified 01/10/23 23:34 simvastatin AdvReac Intermediate elevated Verified 01/10/23 23:34 liver enzymes Family History Father Cancer Bone Marrow Surgical History History of cataract extraction History of cataract extraction History of coronary artery stent placement (08/14/22) History of coronary artery stent placement History of lumbar discectomy History of orthopedic surgery History of tonsillectomy History of tonsillectomy History of uvulectomy History of uvulectomy S/P correction of deviated nasal septum Social History household members: spouse housing: house Smoking Status: Never smoker alcohol intake: current alcohol intake frequency: a few times a month Alcohol type: beer and wine substance use type: does not use what type of physical activity do you participate in: none ROS ROS ED ROS Narrative Past medical history: Reviewed Medications: Reviewed Social history: Noncontributory Review of systems: General: No fever Eyes: No visual changes ENT: No upper airway congestion, normal voice Neck: No neck pain Cardiovascular: No chest pain Respiratory: As in HPI Gastrointestinal: No abdominal pain, nausea vomiting or diarrhea Genitourinary: No dysuria Musculoskeletal: Denies myalgias no difficulty with ambulation Skin: No rash EXAM Physical Exam Narrative Exam Narrative: Physical exam General: Patient appears somewhat uncomfortable Head: Normocephalic, Atraumatic Eyes: Conjunctiva not pale ENT: Moist mucous membranes Neck: Supple, Nontender, No lymphadenopathy Cardiovascular: Regular rate, Regular rhythm Respiratory: Speaks in full sentences, he has mostly bronchial breath sounds I do not appreciate significant wheezing. He coughs every time he takes a deep breath. Abdomen: Soft, Nontender, Nondistended Back: Nontender, Normal Inspection. Negative for: CVA tenderness Extremities: Nontender, No edema Skin: Normal color, No rash Const Vital Signs: 01/10/23 23:32 01/10/23 23:56 01/11/23 01:43 Temperature 97.3 F L Temperature Source Temporal Pulse Rate 77 80 Respiratory Rate 18 20 H Respiratory Effort Normal Non-Labored Respiratory Depth Normal Respiratory Pattern Normal Blood Pressure 152/73 H 136/68 H Blood Pressure Mean 99 90 Pulse Ox 91 96 Oxygen Delivery Method Room Air Room Air Room Air Oxygen Flow Rate (L/min) 01/11/23 01:33 01/11/23 02:22 01/11/23 02:23 Temperature 98.9 F Temperature Source Oral Pulse Rate 93 102 H Respiratory Rate 18 16 Respiratory Effort Respiratory Depth Respiratory Pattern Blood Pressure 159/72 H Blood Pressure Mean 101 Pulse Ox 87 89 Oxygen Delivery Method Room Air Nasal Cannula Oxygen Flow Rate (L/min) 3 01/11/23 02:54 Temperature Temperature Source Pulse Rate 101 H Respiratory Rate Respiratory Effort Respiratory Depth Respiratory Pattern Blood Pressure Blood Pressure Mean Pulse Ox 92 Oxygen Delivery Method Nasal Cannula Oxygen Flow Rate (L/min) 3 MDM MDM MDM Narrative Medical decision making narrative: EKG interpretation Normal sinus rhythm with a rate of 72. Normal [place] and QTc intervals. No ischemic changes Interpreted by emergency doctor Chest x-ray interpreted by me does not show any pneumonia. MDM: Per radiologist patient has atelectasis which could be a pneumonia, however I do not see 1 on x-ray regardless the patient's sputum that I saw myself is green and thick therefore antibiotics are ordered. Patient is given nebulizers Solu-Medrol and antibiotics, I reevaluated him he is still hypoxic on room air he is 85%. Nasal cannula was placed and now he is 89 to 90% and feels more comfortable. Because of the oxygen demand patient will be admitted. Sputum cultures were sent. Lab Data Labs: Laboratory Results - last 24 hr 01/11/23 01:36 WBC 13.6 H RBC 4.38 L Hgb 12.7 L Hct 40.2 MCV 91.8 MCH 29.0 MCHC 31.6 L RDW Std Deviation 55.1 H RDW Coeff of Yareli 16.3 H Plt Count 200 MPV 9.5 Immature Gran % (Auto) 0.600 Neut % (Auto) 80.8 H Lymph % (Auto) 9.8 L [place] % (Auto) 8.3 Eos % (Auto) 0.1 Baso % (Auto) 0.4 Absolute Neuts (auto) 11.0 H Absolute Lymphs (auto) 1.33 Nucleated RBC % 0 Sodium 141 Potassium 3.8 Chloride 108 H Carbon Dioxide 28.0 Anion Gap 5 BUN 18 Creatinine 1.05 Estim Creat Clear Calc 66.63 Est GFR (MDRD) Af Amer 90 Est GFR (MDRD) Non-Af 74 BUN/Creatinine Ratio 17.1 Glucose 116 H Calcium 9.2 Total Bilirubin 1.10 H AST 38 H ALT 34 Alkaline Phosphatase 86 Troponin I High Sens 5 B-Natriuretic Peptide 15.8 Total Protein 6.6 Albumin 3.3 Globulin 3.3 Albumin/Globulin Ratio 1.0 Radiography Diagnostic Testing: Clinical Impression(s) from Imaging Studies Chest X-Ray 01/11/23 01:50 IMPRESSION: Mild right basilar airspace disease. Findings may indicate atelectasis or infection. Electronically Signed: Harjinder Garcia MD at 2:25 EDT , Discharge Plan Triage Chief Complaint: Cough ED Provider: Josiah Rushing Dx/Rx/DC Orders Clinical Impression: Eosinophilia, Chronic cough, Acute bronchitis, Hypoxia, Asthma Prescriptions: No Action multivitamin Tablet 1 tab PO DAILY (DME) PEP device See Rx Instructions .ROUTE .MEDSUPPLY Qty: 1 0RF Rx Instructions: with training Tezspire 210 mg/1.91 mL (110 mg/mL) pen injector 210 mg subcut Q4W Qty: 1.91 12RF clopidogrel 75 mg tablet 75 mg PO DAILY Qty: 90 3RF ipratropium bromide 42 mcg (0.06 %) spray,non-aerosol 1 spray intranasal BID PRN (Reason: allergies) Rx Instructions: administer into each nostril aspirin 81 mg Tablet,Chewable 81 mg PO BREAKFAST Qty: 90 3RF prednisone 10 mg tablet 10 mg PO QODAY allopurinol 300 mg tablet 300 mg PO DAILY Qty: 90 3RF cholecalciferol (vitamin D3) 25 mcg (1,000 unit) capsule 25 mcg PO DAILY Qty: 90 3RF Advair HFA 230-21 mcg/actuation HFA aerosol inhaler 2 puff inhalation Q12H Qty: 3 3RF guaifenesin 1,200 mg tablet extended release 12hr 1,200 mg PO Q12H Qty: 60 6RF irbesartan 150 mg tablet 150 mg PO DAILY Qty: 90 3RF lansoprazole [Prevacid] 30 mg capsule,delayed release(DR/EC) 30 mg PO DAILY Qty: 90 3RF loratadine 10 mg tablet 10 mg PO DAILY Qty: 90 3RF montelukast 10 mg tablet 10 mg PO QPM Qty: 90 3RF rosuvastatin 5 mg tablet 2.5 mg PO QODAY Qty: 90 3RF tamsulosin 0.4 mg capsule 0.4 mg PO DAILY Qty: 90 3RF Spiriva Respimat 1.25 mcg/actuation mist 2 puff inhalation DAILY Qty: 3 3RF trazodone 100 mg tablet 100 mg PO QHS PRN (Reason: insomnia) 90 Days Qty: 40 1RF albuterol sulfate [Ventolin HFA] 90 mcg/actuation HFA aerosol inhaler 2 puff inhalation Q4H PRN (Reason: shortness of breath or wheezing) Qty: 18 6RF albuterol sulfate 2.5 mg /3 mL (0.083 %) solution for nebulization 2.5 mg inhalation .COMPLEX Qty: 180 11RF Rx Instructions: 2.5 mg inhaled BID; J45.9 Asthma azelastine-fluticasone 137-50 mcg/spray spray,non-aerosol 1 spray intranasal BID Qty: 23 6RF Rx Instructions: administer into each nostril Primary Care Provider: Digna Ureña Referrals: Digna Ureña MD [Primary Care Provider] - Disposition Disposition: Acute Care Hospital [facility]
[2023-01-11 01:44] LABS: Absolute Lymphocyte Count 1.33 X10^3/uL (0.83-4.51); Basophil# 0.05 X10^3/uL; Basophil% 0.4 % (0-1); Eosinophil# 0.02 X10^3/uL; Eosinophils% 0.1 % (0-5); Hematocrit 40.2 % (40-54); Hemoglobin 12.7 g/dL (13.0-16.5); Lymphocyte # 1.33 X10^3/ul (0.83-4.51); Lymphocyte % 9.8 % (19-41); Mean Corp Hgb Conc 31.6 g/dL (32-36); Mean Corpuscular Volume 91.8 fL (80-94); Mean Platelet Vol. 9.5 fl (6.2-12.0); Monocyte# 1.13 X10^3/uL; Monocyte% 8.3 % (0-10); NRBC Flagged by Analyzer 0 % (0-5); Neutrophil # 10.99 X10^3/uL (2.7-7.7); Neutrophil % 80.8 % (47-70); Platelet Count 200 K/mm3 (150-450); RBC Distribution Width CV 16.3 % (11.6-14.6); RBC Distribution Width SD 55.1 fl (35.1-43.9); Red Blood Count 4.38 M/mm3 (4.6-6.2); White Blood Count 13.6 K/mm3 (4.4-11.0)
[2023-01-11] MEDS: MethylPREDNISolone 125 MG/2 ML Vial IV (01:44)
[2023-01-11] MEDS: Ceftriaxone 1 GM/50 ML BAG IV ×2 (01:46→21:12)
--- NOTE | 2023-01-11 01:50 | RAD_ITS ---
EXAM: XR CHEST, 1 VIEW CLINICAL INDICATION: sob TECHNIQUE: Frontal view of the chest. COMPARISON: PA lateral chest 06/02/2022 FINDINGS: LUNGS AND PLEURAL SPACES: Mild right basilar airspace disease. No pneumothorax. No effusion. HEART: Unremarkable. Cardiac silhouette not enlarged. MEDIASTINUM: Central airways and mediastinal contour are unremarkable. BONES/JOINTS: Unremarkable. SOFT TISSUES: Unremarkable. RAD/Chest 1 View (Portable) IMPRESSION: Mild right basilar airspace disease. Findings may indicate atelectasis or infection. Electronically Signed: Harjinder Garcia MD at 2:25 EDT ,
[2023-01-11 02:37] LABS: BNP,B-Type NATRIURETIC PEPTIDE 15.8 pg/mL (0-100)
[2023-01-11 02:41] LABS: AST(SGOT) 38 U/L (15-37); Alanine Aminotransfer ALT/SGPT 34 U/L (16-61); Albumin, Serum 3.3 g/dL (3.2-5.0); Alkaline Phosphatase 86 U/L (45-117); Anion Gap 5 (5-15); BUN 18 mg/dL (7-18); BUN/Creat Ratio 17.1 RATIO (10-20); Calcium,Total 9.2 mg/dL (8.5-10.1); Chloride 108 mmol/L (98-107); Creatinine, Serum 1.05 mg/dL (0.70-1.30); EST Glomerular Filtration Rate 74 mL/min (>60); Est Glom Filt Rate - Afr Amer 90 mL/min (>60); Estimated Creatinine Clearance 66.63 ml/min; Globulin 3.3 g/dL (2.2-4.2); Glucose 116 mg/dL (74-106); Potassium 3.8 mmol/L (3.5-5.1); Protein, Total 6.6 g/dL (6.4-8.2); Sodium Level 141 mmol/L (136-145); Troponin-I HS 5 pg/mL (3.0-78.0)
--- NOTE | 2023-01-11 08:03 | PCM.HOSP.N ---
Hospitalist Note Mr. Ashley is a 72-year-old white male who presented to the emergency department at [facility] early this morning with cough. He reported he has a history of chronic bronchitis and indicated he was having a 2-day history of increased sputum production and cough with slight dyspnea. He denied fever or chills. No chest pain or back pain and he denied any lower extremity swelling. He has a history of asthma and obstructive sleep apnea as well as morbid obesity. He does have history of asthma exacerbations and it appears his last 1 was treated as an outpatient at the end of November. He follows with Dr. Theodore. He also wears CPAP with 16 cm of water while sleeping. He has no history of tobacco abuse. Vital signs on presentation showed a temperature of 98.9, heart rate 102, blood pressure was 159/72, respiratory rate was 16 and oxygen saturations were 97% on room air. He was uptitrated to 3 L and then required further up titration as he desatted on 3 L to 87 on 3 L and subsequently has not been increased to 6 L. He is currently satting 95% on 6 L nasal cannula and appears stable. His CBC showed a leukocytosis with a left shift having a white count of 13.6 and a neutrophilia at 80.8%. His chemistry panel was unremarkable. Flu and COVID were negative the emergency department. Sputum culture has been sent. He has been placed on ceftriaxone and was given 1 dose of azithromycin the emergency department. I will check strep pneumo and Legionella antigens and reinitiate azithromycin to cover atypical pneumonia until we have further results. Check a viral PCR. We will continue pulmonary toilet, incentive spirometry, add Pep therapy with Acapella, IV steroids and antibiotics as above. Wean oxygen as able. Patient is not oxygen dependent at baseline. Diagnoses: Acute exacerbation of asthma Possible community-acquired pneumonia Obstructive sleep apnea Asthma Morbid obesity History of gout CAD with history of PCI Hypertension Hyperlipidemia GERD Seasonal allergies next BPH Insomnia Insulin resistance
--- NOTE | 2023-01-11 10:24 | PCM.HP.STD ---
HPI - General General Date of Admission: 01/11/23 HPI German HENDRICKS, is a 72 M with a significant history of COPD who is on as needed oxygen that he hardly uses presenting to the emergency department with increased dyspnea. Associated with his symptoms is productive cough. At the emergency department patient was requiring 6 L of nasal cannula oxygen even at that time his oxygen saturation was about 86%. [facility] Medical History Abnormal bruising Arthritis Asthma Asthmatic bronchitis with acute exacerbation Atherosclerosis of coronary artery of [place] heart without angina pectoris Bilateral lower extremity edema BPH (benign prostatic hyperplasia) Cataract Cataracts, bilateral Chronic cough Chronic sinusitis Cough COVID-19 DDD (degenerative disc disease) Easy bruising Epithelial inclusion cyst Essential hypertension Fatigue Flu vaccine need GERD (gastroesophageal reflux disease) Gout Hay fever Hemorrhoids Hemorrhoids History of left heart catheterization Hyperlipidemia Insomnia Lung disease Morbid obesity Multiple ecchymoses of both upper arms Obesity (BMI 30-39.9) CARMELLA (obstructive sleep apnea) PND (post-nasal drip) Pre-diabetes Recurrent kidney stones Recurrent pneumonia Shortness of breath Skin tear of right elbow without complication Umbilical hernia URI (upper respiratory infection) Home Medications multivitamin 1 tab PO DAILY 09/19/20 [History Last Taken Unknown] PEP device #1 ea 06/12/22 [Rx Last Taken Unknown] allopurinol 300 mg tablet 300 mg PO DAILY #90 tabs 07/16/22 [Rx Last Taken Unknown] cholecalciferol (vitamin D3) 25 mcg (1,000 unit) capsule 25 mcg PO DAILY #90 caps 07/16/22 [Rx Last Taken Unknown] fluticasone propionate 230 mcg-salmeterol 21 mcg/actuation HFA inhaler (Advair HFA) 2 puff inhalation Q12H #3 ea 07/16/22 [Rx Last Taken Unknown] guaifenesin 1,200 mg tablet, extended release 12 hr 1,200 mg PO Q12H #60 tabs 07/16/22 [Rx Last Taken Unknown] irbesartan 150 mg tablet 150 mg PO DAILY #90 tabs 07/16/22 [Rx Last Taken Unknown] lansoprazole 30 mg capsule,delayed release (Prevacid) 30 mg PO DAILY #90 caps 07/16/22 [Rx Last Taken Unknown] loratadine 10 mg tablet 10 mg PO DAILY #90 tabs 07/16/22 [Rx Last Taken Unknown] montelukast 10 mg tablet 10 mg PO QPM #90 tabs 07/16/22 [Rx Last Taken Unknown] rosuvastatin 5 mg tablet 2.5 mg (1/2 x 5 mg) PO QODAY #90 tabs 07/16/22 [Rx Last Taken Unknown] tamsulosin 0.4 mg capsule 0.4 mg PO DAILY #90 caps 07/16/22 [Rx Last Taken Unknown] tiotropium bromide 1.25 mcg/actuation mist for inhalation (Spiriva Respimat) 2 puff inhalation DAILY #3 ea 07/16/22 [Rx Last Taken Unknown] trazodone 100 mg tablet 100 mg PO QHS PRN insomnia 90 days #40 tabs 07/16/22 [Rx Last Taken Unknown] albuterol sulfate 90 mcg/actuation aerosol inhaler (Ventolin HFA) 2 puff inhalation Q4H PRN shortness of breath or wheezing #18 grams 07/17/22 [Rx Last Taken Unknown] aspirin 81 mg chewable tablet 81 mg PO BREAKFAST #90 tabs 08/15/22 [Rx Last Taken Unknown] albuterol sulfate 2.5 mg/3 mL (0.083 %) solution for nebulization 2.5 mg (3 mL) inhalation .COMPLEX Sob &/Or Wheezing #180 mL 09/24/22 [Rx Last Taken Unknown] azelastine-fluticasone 137 mcg-50 mcg/spray nasal spray 1 spray intranasal BID #23 grams 10/06/22 [Rx Last Taken Unknown] clopidogrel 75 mg tablet 75 mg PO DAILY #90 tabs 10/10/22 [Rx Last Taken Unknown] ipratropium bromide 42 mcg (0.06 %) nasal spray 1 spray intranasal BID PRN allergies 11/12/22 [History Last Taken Unknown] tezepelumab-ekko 210 mg/1.91 mL (110 mg/mL) subcutaneous pen injector (Tezspire) 210 mg (1.91 mL) subcut Q4W #1.91 mL 11/28/22 [Rx Last Taken Unknown] prednisone 10 mg tablet 10 mg PO QODAY 01/10/23 [History Last Taken Unknown] Allergy/AdvReac Type Severity Reaction Status Date / Time lisinopril AdvReac Intermediate cough Verified 01/10/23 23:34 simvastatin AdvReac Intermediate elevated Verified 01/10/23 23:34 liver enzymes Family History Father Cancer Bone Marrow Surgical History History of cataract extraction History of cataract extraction History of coronary artery stent placement (08/14/22) History of coronary artery stent placement History of lumbar discectomy History of orthopedic surgery History of tonsillectomy History of tonsillectomy History of uvulectomy History of uvulectomy S/P correction of deviated nasal septum Social History household members: spouse housing: house Smoking Status: Never smoker alcohol intake: current alcohol intake frequency: a few times a month Alcohol type: beer and wine substance use type: does not use what type of physical activity do you participate in: none ROS ROS Narrative Pertinent positives and pertinent negatives as noted in HPI. All other systems were reviewed and are negative Vital Signs Vital Signs Vital Signs: 01/10/23 23:32 01/10/23 23:56 01/11/23 01:43 Temperature 97.3 F L Temperature Source Temporal Pulse Rate 77 80 Respiratory Rate 18 20 H Respiratory Effort Normal Non-Labored Respiratory Depth Normal Respiratory Pattern Normal Blood Pressure 152/73 H 136/68 H Blood Pressure Mean 99 90 Blood Pressure Source Blood Pressure Position Blood Pressure Location Pulse Ox 91 96 Oxygen Delivery Method Room Air Room Air Room Air Oxygen Flow Rate (L/min) 01/11/23 01:33 01/11/23 02:22 01/11/23 02:23 Temperature 98.9 F Temperature Source Oral Pulse Rate 93 102 H Respiratory Rate 18 16 Respiratory Effort Respiratory Depth Respiratory Pattern Blood Pressure 159/72 H Blood Pressure Mean 101 Blood Pressure Source Blood Pressure Position Blood Pressure Location Pulse Ox 87 89 Oxygen Delivery Method Room Air Nasal Cannula Oxygen Flow Rate (L/min) 3 01/11/23 02:54 01/11/23 03:10 01/11/23 03:17 Temperature Temperature Source Pulse Rate 101 H Respiratory Rate Respiratory Effort Respiratory Depth Respiratory Pattern Blood Pressure Blood Pressure Mean Blood Pressure Source Blood Pressure Position Blood Pressure Location Pulse Ox 92 87 91 Oxygen Delivery Method Nasal Cannula Nasal Cannula Nasal Cannula Oxygen Flow Rate (L/min) 3 3 4 01/11/23 03:00 01/11/23 05:18 01/11/23 07:29 Temperature 98.9 F 97.9 F 97.8 F Temperature Source Oral Temporal Temporal Pulse Rate 98 87 75 Respiratory Rate 18 22 H 22 H Respiratory Effort Respiratory Depth Respiratory Pattern Blood Pressure 131/70 H 131/69 H 142/78 H Blood Pressure Mean 90 89 99 Blood Pressure Source Monitor Blood Pressure Position Semi-Fowlers Blood Pressure Location Right Arm Pulse Ox 90 91 95 Oxygen Delivery Method Nasal Cannula Nasal Cannula Nasal Cannula Oxygen Flow Rate (L/min) 6 6 6 01/11/23 07:58 Temperature Temperature Source Pulse Rate Respiratory Rate Respiratory Effort Normal Non-Labored Respiratory Depth Normal Respiratory Pattern Normal Blood Pressure Blood Pressure Mean Blood Pressure Source Blood Pressure Position Blood Pressure Location Pulse Ox Oxygen Delivery Method Nasal Cannula Oxygen Flow Rate (L/min) 6 Weight Weight: 129 kg Body Mass Index (BMI) 40.8 Physical Exam Narrative Physical exam: General: Well-nourished, well-developed. Head: Normocephalic, atraumatic, no tenderness Eyes: Vision is grossly intact. EOMI ENT, no trauma, moist mucous membranes, no rhinorrhea Neck: Nontender, No thyromegaly. CVS: Regular rate and rhythm. S1-S2 present. No murmur, gallop or rub. Respiratory : Diminished, chest wall nontender Abdomen: Soft, nontender, nondistended, normal bowel sounds, no masses : Deferred Back: Nontender, no CVA tenderness, no midline spinal tenderness, deformities, step-offs Extremities: Nontender full range of motion, no trauma Skin: Normal color, no trauma, abrasions Neuro: Alert, oriented, cranial nerves II through XII grossly intact. Psychiatry: Normal mood. Normal affect. Not depressed. Not anxious. Results Lab / Micro Data 01/11/23 01:36 01/11/23 01:36 Labs: Laboratory Results - last 24 hr 01/11/23 01:36: WBC 13.6 H, RBC 4.38 L, Hgb 12.7 L, Hct 40.2, MCV 91.8, MCH 29.0, MCHC 31.6 L, RDW Std Deviation 55.1 H, RDW Coeff of Yareli 16.3 H, Plt Count 200, MPV 9.5, Immature Gran % (Auto) 0.600, Neut % (Auto) 80.8 H, Lymph % (Auto) 9.8 L, [place] % (Auto) 8.3, Eos % (Auto) 0.1, Baso % (Auto) 0.4, Absolute Neuts (auto) 11.0 H, Absolute Lymphs (auto) 1.33, Nucleated RBC % 0, Sodium 141, Potassium 3.8, Chloride 108 H, Carbon Dioxide 28.0, Anion Gap 5, BUN 18, Creatinine 1.05, Estim Creat Clear Calc 66.63, Est GFR (MDRD) Af Amer 90, Est GFR (MDRD) Non-Af 74, BUN/Creatinine Ratio 17.1, Glucose 116 H, Calcium 9.2, Total Bilirubin 1.10 H, AST 38 H, ALT 34, Alkaline Phosphatase 86, Troponin I High Sens 5, B-Natriuretic Peptide 15.8, Total Protein 6.6, Albumin 3.3, Globulin 3.3, Albumin/Globulin Ratio 1.0 Micro: Microbiology 01/11/23 01:33 Sputum, Expectorated/Coughed Gram Stain - Preliminary 01/11/23 01:36 Nasal Secretion SARS-CoV-2 & FLU Antigen (Rapid) - Final Radiology Impression Chest X-Ray 01/11/23 01:50 IMPRESSION: Mild right basilar airspace disease. Findings may indicate atelectasis or infection. Electronically Signed: Harjinder Garcia MD at 2:25 EDT Reading Location ID and State: [address] [place] [address] Tel , Service support , Assessment & Plan Assessment/Plan (1) COPD exacerbation: (2) Hypoxia: PLAN: Plan Acute COPD with hypoxia/pneumonia Impression ochest x-ray by radiologist:Mild right basilar airspace disease. Findings may indicate atelectasis or infection. CXR independently was interpreted and I agree with radiology interpretation. Patient with mild leukocytosis and, rule out pneumonia although consent area looks triangular and could be atelectasis. Incentive spirometer ordered. Scheduled DuoNeb Albuterol as needed Solu-Medrol [id number] ordered. Azithromycin and ceftriaxone ordered. Continue oxygen administration; titrate as needed history. Monitor BMP and CBC DVT prophylaxis Subcutaneous Lovenox ordered. Time spent in the patient's overall evaluation,decision-making process, review of diagnostic data, adjustment of management, discussion with other providers, nursing nursing and ancillary staff involved in patient's care documentation, 44 minutes Charges/Coding Visit Charges Inpatient E&M: 50237 Init Hosp L2
[2023-01-11] MEDS: Methylprednisolone Sod Succ 40 MG/ML VIAL IV ×3 (11:25→21:02)
[2023-01-11] MEDS: Multivitamins,Therapeutic Tablet 1 TABLET PO (11:26)
[2023-01-11] MEDS: 0.9% Saline Lock 10 ML Syringe IV ×3 (11:26→21:05)
[2023-01-11] MEDS: Aspirin 81 MG TAB.CHEW PO (11:26)
[2023-01-11] MEDS: Cholecalciferol (VIT D3) 25 MCG TABLET (1,000 UNITS) PO (11:27)
[2023-01-11] MEDS: Azelastine HCl NASAL.SRY 1 SPRAY NASAL ×2 (11:27→20:45)
[2023-01-11] MEDS: Loratadine 10 MG Tablet PO (11:28)
[2023-01-11] MEDS: Losartan Potassium 50 MG Tablet PO (11:28)
[2023-01-11] MEDS: guaiFENesin 1,200 MG Tablet 1200 MG PO ×2 (11:29→20:48)
[2023-01-11] MEDS: Clopidogrel Bisulfate 75 MG Tablet PO (11:29)
[2023-01-11] MEDS: Pantoprazole Sodium 40 MG Tablet PO (11:29)
[2023-01-11] MEDS: Enoxaparin 40 MG/0.4 ML Syringe SC (11:29)
[2023-01-11] MEDS: Allopurinol 300 MG Tablet PO (11:30)
[2023-01-11] MEDS: Tamsulosin HCl 0.4 MG Capsule PO (18:25)
[2023-01-11] MEDS: Montelukast 10 MG Tablet PO (20:56)
--- NOTE | 2023-01-11 23:14 | CPS ---
Pt brought in machine from home/CPAP. Bled in 5L oxygen with his machine. It is ready for pt use at his bedside.
[2023-01-12] VITALS (13 sets, daily range): BP systolic 121–148; BP diastolic 60–84; PULSE 66–95; RESP 16–18; TEMP 35.9–36.6; O2SAT 91–96
[2023-01-12] MEDS: Methylprednisolone Sod Succ 40 MG/ML VIAL IV ×3 (06:06→22:53)
[2023-01-12] MEDS: 0.9% Saline Lock 10 ML Syringe IV ×3 (06:07→23:08)
[2023-01-12 06:31] LABS: Absolute Lymphocyte Count 0.86 X10^3/uL (0.83-4.51); Absolute Neutrophil Count 13.4 X10^3/uL (2.0-7.7); Basophil# 0.01 X10^3/uL; Basophil% 0.1 % (0-1); Hematocrit 39.9 % (40-54); Hemoglobin 12.7 g/dL (13.0-16.5); Lymphocyte # 0.86 X10^3/ul (0.83-4.51); Lymphocyte % 5.7 % (19-41); Mean Corp Hgb Conc 31.8 g/dL (32-36); Mean Corpuscular Hgb 28.7 pg (27.0-32.0); Mean Corpuscular Volume 90.3 fL (80-94); Mean Platelet Vol. 10.4 fl (6.2-12.0); Monocyte# 0.68 X10^3/uL; Monocyte% 4.5 % (0-10); NRBC Flagged by Analyzer 0 % (0-5); Neutrophil # 13.35 X10^3/uL (2.7-7.7); Neutrophil % 88.8 % (47-70); Platelet Count 231 K/mm3 (150-450); RBC Distribution Width CV 15.8 % (11.6-14.6); RBC Distribution Width SD 52.5 fl (35.1-43.9); Red Blood Count 4.42 M/mm3 (4.6-6.2)
[2023-01-12 06:55] LABS: Anion Gap 5 (5-15); BUN 23 mg/dL (7-18); BUN/Creat Ratio 23.7 RATIO (10-20); Calcium,Total 9.5 mg/dL (8.5-10.1); Chloride 106 mmol/L (98-107); Creatinine, Serum 0.97 mg/dL (0.70-1.30); EST Glomerular Filtration Rate 81 mL/min (>60); Est Glom Filt Rate - Afr Amer 98 mL/min (>60); Estimated Creatinine Clearance 72.12 ml/min; Glucose 153 mg/dL (74-106); Potassium 4.2 mmol/L (3.5-5.1); Sodium Level 137 mmol/L (136-145)
[2023-01-12] MEDS: Ipratropium/Albuterol Sulfate 3 ML AMPUL.NEB INHALATION ×5 (07:22→22:50)
--- NOTE | 2023-01-12 08:35 | PN.HOSP_ITS ---
Reason for Visit Reason for Visit: Diagnoses Chronic obstructive pulmonary disease with (acute) exacerbation (01/11/23) Hypoxemia (01/11/23) Subjective Subjective Began getting short of breath right before returning to [place] from [place]. States that his son, who also went on the trip, has recently gotten a sore throat. Objective Data Objective Data Vital Signs: Vital Signs Temp Pulse Resp BP Pulse Ox O2 Del Method O2 Flow Rate 36.6 C 66 18 130/84 H 94 CPAP 5 01/12/23 04:14 01/12/23 07:23 01/12/23 07:23 01/12/23 04:14 01/12/23 07:23 01/12/23 07:23 01/12/23 07:23 Oxygen Flow Rate (L/min) 5 Oxygen Delivery Method CPAP Weight: 129 kg Body Mass Index (BMI) 40.8 Intake & Output: Intake and Output for Last 24 Hours 01/10/23 01/11/23 01/12/23 23:59 23:59 23:59 Intake Total 1115 / 1115 Balance 1115 / 1115 Lab / Micro Data 01/12/23 05:15 01/12/23 05:15 Labs: Laboratory Results - last 24 hr 01/12/23 05:15: WBC 15.0 H, RBC 4.42 L, Hgb 12.7 L, Hct 39.9 L, MCV 90.3, MCH 28.7, MCHC 31.8 L, RDW Std Deviation 52.5 H, RDW Coeff of Yareli 15.8 H, Plt Count 231, MPV 10.4, Immature Gran % (Auto) 0.900, Neut % (Auto) 88.8 H, Lymph % (Auto) 5.7 L, [place] % (Auto) 4.5, Eos % (Auto) 0.0, Baso % (Auto) 0.1, Absolute Neuts (auto) 13.4 H, Absolute Lymphs (auto) 0.86, Nucleated RBC % 0, Sodium 137, Potassium 4.2, Chloride 106, Carbon Dioxide 26.0, Anion Gap 5, BUN 23 H, Creatinine 0.97, Estim Creat Clear Calc 72.12, Est GFR (MDRD) Af Amer 98, Est GFR (MDRD) Non-Af 81, BUN/Creatinine Ratio 23.7 H, Glucose 153 H, Calcium 9.5 Micro: Microbiology 01/11/23 14:14 Mucosa - Nose Respiratory Panel (PCR) - Final 01/11/23 12:32 Urine, Random Legionella Antigen - Final 01/11/23 12:32 Urine, Random Streptococcus pneumoniae Antigen (M - Final 01/11/23 01:33 Sputum, Expectorated/Coughed Gram Stain - Final 01/11/23 01:36 Nasal Secretion SARS-CoV-2 & FLU Antigen (Rapid) - Final Physical Exam Const alert and no apparent distress HEENT head/scalp atraumatic and moist oral mucous membranes Resp normal respiratory effort, no retractions, no use of accessory muscles and clear to auscultation bilaterally Cardio regular rate, regular rhythm, S1 normal heart sound and S2 normal heart sound GI normal to inspection, nondistended, normoactive bowel sounds, soft to palpation, non-tender and non-distended Extremity normal to inspection and full ROM Assessment & Plan Assessment/Plan (1) Asthma exacerbation: PLAN: Incentive spirometer ordered. Scheduled DuoNeb Albuterol as needed Solu-Medrol [id number] ordered. Azithromycin and ceftriaxone ordered. Pt takes prednisone 10mg QODay at home. Anticipate slow taper upon discharge. Continue oxygen administration; titrate as needed history. I reviewed records from the pulmonary office from 11/25: Pt w severe, persistent asthma. Has previously failed Nucala. Now on texepelumab-ekko Respiratory panel negative. COVID 19, influenza negative. Strep and legionella negative. SCx pending. CXR reviewed, no definitive infiltrate. (2) Hypoxia: PLAN: 2/2 to above. oxygen has been able to be weaned. Normally, does not use oxygen. PLAN: Plan Chronic conditions: * CARMELLA * CAD: s/p PCI. continue ASA and clopidogrel * gout: continue allopurinol DVT prophylaxis Subcutaneous Lovenox ordered. Greater than 50 minutes of which greater than 50% of time was counseling patient about his breathing issues, work-up, pending work-up. Charges/Coding Visit Charges Inpatient E&M: 92465 Subs Hosp L3
[2023-01-12] MEDS: Aspirin 81 MG TAB.CHEW PO (08:37)
[2023-01-12] MEDS: Multivitamins,Therapeutic Tablet 1 TABLET PO (08:37)
[2023-01-12] MEDS: Cholecalciferol (VIT D3) 25 MCG TABLET (1,000 UNITS) PO (08:37)
[2023-01-12] MEDS: Azelastine HCl NASAL.SRY 1 SPRAY NASAL ×2 (10:32→22:50)
[2023-01-12] MEDS: Ipratropium Bromide 0.06% NASAL SPRAY 1 SPRAY NASAL (10:33)
[2023-01-12] MEDS: Clopidogrel Bisulfate 75 MG Tablet PO (10:34)
[2023-01-12] MEDS: Loratadine 10 MG Tablet PO (10:35)
[2023-01-12] MEDS: Losartan Potassium 50 MG Tablet PO (10:35)
[2023-01-12] MEDS: Allopurinol 300 MG Tablet PO (10:35)
[2023-01-12] MEDS: Pantoprazole Sodium 40 MG Tablet PO (10:35)
[2023-01-12] MEDS: Enoxaparin 40 MG/0.4 ML Syringe SC (10:35)
[2023-01-12] MEDS: guaiFENesin 1,200 MG Tablet 1200 MG PO ×2 (10:35→22:52)
--- NOTE | 2023-01-12 11:25 | CASEMGMT ---
RN CM Face to Face with patient for initial transition planning/care coordination assessment. RN CM introduced self and role at [facility]. Patient lying in bed, alert and oriented. Patient willing to participate in assessment and is able to answer all questions appropriately. Care providers, pharmacy, and demographics verified. Patient wishes to discharge home, denies need for home health at this time. Patient states he has no further needs or concerns at this time. CM to follow for discharge planning needs that may arise. PCP: Niranjan Specialists: Arben, book shelver; Nury, stamp classifier Preferred [facility]acy: [facility] Insurance: [employer] Prescription Benefit: yes Living Will/HPOA: none LNOK: Luci Living Arrangements: Patient lives with in a single story home with 1 step to enter. Patient is independent at home. Transportation: self, DME/HHC: Patient has grab bars, cpap, nebulizer, pulse ox, and home oxygen PRN through [facility] with portability. Patient aware to have bring portable tank at discharge. No previous HHC or SNF. Disposition Plan: Patient to discharge home with family support and follow-up plans in place. Vero MENESES, RN, CM
--- NOTE | 2023-01-12 14:17 | CHAPLAIN ---
Type of Pastoral Visit _x__ Initial Visit ___ Follow-up Visit ___ On-call Visit ___ General Patient Visit ___ Spiritual Assessment ___ Family Conference ___ Bereavement ___ Rapid Response ___ Code Blue ___ Other (describe below) Pastoral Care Referral From _x__ Patient ___ Family ___ Nurse ___ Physician ___ Publication Specialist ___ Soil Checker ___ Other (describe below) Sacrament/Intervention _x__ Active listening ___ Anointing ___ Orthodoxy ___ Bereavement ___ Communion _x__ Ana exploration ___ _x__ Life review _x__ Prayer ___ Reconciliation ___ Sacrament of Sick _x__ Supportive presence ___ Wedding ___ Other (describe below) Pastoral Comments patient has been in poor health for about a year and still looking for more definitive answers; pt gives some life review and hindu understanding; pt has family and ana for support; spouse is also having health issues; pt goal is to get answers and to see improved for both of them; pt is member of a small [employer] community and welcomes prayer;
[2023-01-12] MEDS: Tamsulosin HCl 0.4 MG Capsule PO (16:34)
[2023-01-12] MEDS: Rosuvastatin Calcium 5 MG Tablet 2.5 MG PO (22:53)
[2023-01-12] MEDS: Montelukast 10 MG Tablet PO (22:54)
[2023-01-12] MEDS: Fluticasone 0.05% 1 SPRAY NASAL.SRY NASAL (22:55)
[2023-01-12] MEDS: Ceftriaxone 1 GM/50 ML BAG IV (23:07)
[2023-01-13] VITALS (10 sets, daily range): BP systolic 103–138; BP diastolic 48–67; PULSE 64–89; RESP 16–20; TEMP 36.1–36.6; O2SAT 89–94
[2023-01-13] MEDS: Methylprednisolone Sod Succ 40 MG/ML VIAL IV ×2 (06:25→21:16)
[2023-01-13] MEDS: 0.9% Saline Lock 10 ML Syringe IV ×3 (06:25→21:16)
[2023-01-13 06:30] LABS: Absolute Lymphocyte Count 0.64 X10^3/uL (0.83-4.51); Absolute Neutrophil Count 10.7 X10^3/uL (2.0-7.7); Basophil# 0.02 X10^3/uL; Basophil% 0.2 % (0-1); Hematocrit 38.5 % (40-54); Hemoglobin 12.7 g/dL (13.0-16.5); Lymphocyte # 0.64 X10^3/ul (0.83-4.51); Lymphocyte % 5.4 % (19-41); Mean Corpuscular Volume 90.8 fL (80-94); Mean Platelet Vol. 10.4 fl (6.2-12.0); Monocyte# 0.48 X10^3/uL; NRBC Flagged by Analyzer 0 % (0-5); Neutrophil # 10.69 X10^3/uL (2.7-7.7); Neutrophil % 89.4 % (47-70); Platelet Count 249 K/mm3 (150-450); RBC Distribution Width SD 52.8 fl (35.1-43.9); Red Blood Count 4.24 M/mm3 (4.6-6.2)
[2023-01-13] MEDS: Ipratropium/Albuterol Sulfate 3 ML AMPUL.NEB INHALATION ×5 (07:19→23:00)
--- NOTE | 2023-01-13 07:28 | PCM.PN.HOSP ---
Reason for Visit Reason for Visit: Diagnoses Chronic obstructive pulmonary disease with (acute) exacerbation (01/11/23) Unspecified asthma with (acute) exacerbation (01/11/23) Hypoxemia (01/11/23) Subjective Subjective Breathing better. Coughing up some phlegm. Objective Data Objective Data Vital Signs: Vital Signs Temp Pulse Resp BP Pulse Ox O2 Del Method O2 Flow Rate 36.4 C L 64 18 103/48 L 94 CPAP 2 01/13/23 03:46 01/13/23 03:46 01/13/23 03:46 01/13/23 03:46 01/13/23 03:46 01/13/23 04:23 01/12/23 22:45 Oxygen Flow Rate (L/min) 2 Oxygen Delivery Method CPAP Weight: 129 kg Body Mass Index (BMI) 40.8 Intake & Output: Intake and Output for Last 24 Hours 01/11/23 01/12/23 01/13/23 23:59 23:59 23:59 Intake Total 1115 / 1115 1984 / 1984 0 / 0 Output Total 925 / 925 650 / 650 Balance 1115 / 1115 1060 / 1060 -650 / -650 Lab / Micro Data 01/13/23 04:53 01/12/23 05:15 Labs: Laboratory Results - last 24 hr 01/13/23 04:53: WBC 12.0 H, RBC 4.24 L, Hgb 12.7 L, Hct 38.5 L, MCV 90.8, MCH 30.0, MCHC 33.0, RDW Std Deviation 52.8 H, RDW Coeff of Yareli 16.0 H, Plt Count 249, MPV 10.4, Immature Gran % (Auto) 1.000 H, Neut % (Auto) 89.4 H, Lymph % (Auto) 5.4 L, [place] % (Auto) 4.0, Eos % (Auto) 0.0, Baso % (Auto) 0.2, Absolute Neuts (auto) 10.7 H, Absolute Lymphs (auto) 0.64 L, Nucleated RBC % 0 Micro: Microbiology 01/11/23 01:33 Sputum, Expectorated/Coughed Gram Stain - Final 01/11/23 01:33 Sputum, Expectorated/Coughed Respiratory Culture - Preliminary 01/11/23 14:14 Mucosa - Nose Respiratory Panel (PCR) - Final 01/11/23 12:32 Urine, Random Legionella Antigen - Final 01/11/23 12:32 Urine, Random Streptococcus pneumoniae Antigen (M - Final 01/11/23 01:36 Nasal Secretion SARS-CoV-2 & FLU Antigen (Rapid) - Final Physical Exam Const alert and no apparent distress HEENT head/scalp atraumatic and moist oral mucous membranes Resp Resp Narrative: coarse breath sounds bilaterally. Cardio regular rate, regular rhythm, S1 normal heart sound and S2 normal heart sound Extremity normal to inspection Assessment & Plan Assessment/Plan (1) Asthma exacerbation: QUALIFIERS: Asthma persistence: persistent Asthma severity: severe Qualified Code(s): J45.51 - Severe persistent asthma with (acute) exacerbation PLAN: Incentive spirometer ordered. Scheduled DuoNeb Albuterol as needed Azithromycin and ceftriaxone ordered. Pt takes prednisone 10mg QODay at home. Anticipate slow taper upon discharge. Continue oxygen administration; titrate as needed history. Cut methypred to BID. If tolerates, hopefully we can discharge on 01/14 with prednisone taper. Would taper to 5mg daily (had been on 10 QOD) I reviewed records from the pulmonary office from 11/25: Pt w severe, persistent asthma. Has previously failed Nucala. Now on texepelumab-ekko Respiratory panel negative. COVID 19, influenza negative. Strep and legionella negative. SCx pending. CXR reviewed, no definitive infiltrate. (2) Hypoxia: PLAN: 2/2 to above. oxygen has been able to be weaned. Normally, does not use oxygen. PLAN: Plan Chronic conditions: CARMELLA: CPAP QHS CAD: s/p PCI. continue ASA and clopidogrel gout: continue allopurinol DVT prophylaxis Subcutaneous Lovenox ordered. Charges/Coding Visit Charges Inpatient E&M: 88964 Subs Hosp L2
[2023-01-13] MEDS: Aspirin 81 MG TAB.CHEW PO (08:43)
[2023-01-13] MEDS: Multivitamins,Therapeutic Tablet 1 TABLET PO (08:43)
[2023-01-13] MEDS: Cholecalciferol (VIT D3) 25 MCG TABLET (1,000 UNITS) PO (08:43)
[2023-01-13] MEDS: Azelastine HCl NASAL.SRY 1 SPRAY NASAL ×2 (09:42→21:16)
[2023-01-13] MEDS: Fluticasone 0.05% 1 SPRAY NASAL.SRY NASAL ×2 (09:44→21:22)
[2023-01-13] MEDS: Clopidogrel Bisulfate 75 MG Tablet PO (09:45)
[2023-01-13] MEDS: Pantoprazole Sodium 40 MG Tablet PO (09:45)
[2023-01-13] MEDS: Allopurinol 300 MG Tablet PO (09:45)
[2023-01-13] MEDS: guaiFENesin 1,200 MG Tablet 1200 MG PO ×2 (09:45→21:17)
[2023-01-13] MEDS: Losartan Potassium 50 MG Tablet PO (09:45)
[2023-01-13] MEDS: Loratadine 10 MG Tablet PO (09:45)
[2023-01-13] MEDS: Enoxaparin 40 MG/0.4 ML Syringe SC (09:46)
[2023-01-13] MEDS: Senna/Docusate Sodium 1 Tablet 2 TABLET PO (17:08)
[2023-01-13] MEDS: Tamsulosin HCl 0.4 MG Capsule PO (17:08)
[2023-01-13] MEDS: Montelukast 10 MG Tablet PO (21:17)
[2023-01-13] MEDS: Ceftriaxone 1 GM/50 ML BAG IV (21:22)
[2023-01-14 03:19] VITALS: BP 138/85; PULSE 68; RESP 16; TEMP 36.6; O2SAT 96
[2023-01-14] MEDS: Senna/Docusate Sodium 1 Tablet 2 TABLET PO (03:29)
[2023-01-14] MEDS: Ipratropium/Albuterol Sulfate 3 ML AMPUL.NEB INHALATION ×2 (07:10→11:01)
[2023-01-14 07:15] VITALS: PULSE 79; RESP 17; O2SAT 92
[2023-01-14 08:12] VITALS: O2SAT 93; O2SAT 94
--- NOTE | 2023-01-14 08:12 | PN.HOSP_ITS ---
Reason for Visit Reason for Visit: Diagnoses Chronic obstructive pulmonary disease with (acute) exacerbation (01/11/23) Severe persistent asthma with (acute) exacerbation (01/11/23) Unspecified asthma with (acute) exacerbation (01/11/23) Hypoxemia (01/11/23) Subjective Subjective Breathing well, but issues overnight. Objective Data Objective Data Vital Signs: Vital Signs Temp Pulse Resp BP Pulse Ox O2 Del Method O2 Flow Rate 36.6 C 68 16 138/85 H 96 CPAP 2 01/14/23 03:19 01/14/23 03:19 01/14/23 03:19 01/14/23 03:19 01/14/23 03:19 01/14/23 03:22 01/14/23 03:22 Oxygen Flow Rate (L/min) 2 Oxygen Delivery Method CPAP Weight: 129 kg Body Mass Index (BMI) 40.8 Intake & Output: Intake and Output for Last 24 Hours 01/12/23 01/13/23 01/14/23 23:59 23:59 23:59 Intake Total 1984 / 1984 1505 / 1505 Output Total 925 / 925 650 / 650 Balance 1060 / 1060 855 / 855 Lab / Micro Data 01/13/23 04:53 01/12/23 05:15 Micro: Microbiology 01/11/23 01:33 Sputum, Expectorated/Coughed Gram Stain - Final 01/11/23 01:33 Sputum, Expectorated/Coughed Respiratory Culture - Final Haemophilus influenzae 01/11/23 14:14 Mucosa - Nose Respiratory Panel (PCR) - Final 01/11/23 12:32 Urine, Random Legionella Antigen - Final 01/11/23 12:32 Urine, Random Streptococcus pneumoniae Antigen (M - Final 01/11/23 01:36 Nasal Secretion SARS-CoV-2 & FLU Antigen (Rapid) - Final Physical Exam Const alert and no apparent distress HEENT head/scalp atraumatic and moist oral mucous membranes Neck no lymphadenopathy Resp normal respiratory effort, no retractions, no use of accessory muscles and clear to auscultation bilaterally Cardio regular rate, regular rhythm, S1 normal heart sound and S2 normal heart sound GI normal to inspection, nondistended, normoactive bowel sounds, soft to palpation, non-tender and non-distended Assessment & Plan Assessment/Plan (1) Asthma exacerbation: QUALIFIERS: Asthma persistence: persistent Asthma severity: severe Qualified Code(s): J45.51 - Severe persistent asthma with (acute) exacerbation PLAN: Incentive spirometer ordered. Scheduled DuoNeb Albuterol as needed Azithromycin and ceftriaxone ordered. Pt takes prednisone 10mg QODay at home. Anticipate slow taper upon discharge. Continue oxygen administration; titrate as needed history. I reviewed records from the pulmonary office from 11/25: Pt w severe, persistent asthma. Has previously failed Nucala. Now on texepelumab-ekko Respiratory panel negative. COVID 19, influenza negative. Strep and legionella negative. SCx pending. CXR reviewed, no definitive infiltrate. Discharge on 01/14 with prednisone taper. Would taper to 5mg daily (had been on 10 QOD) Follow up with pulmonary in next few weeks. (2) Haemophilus influenzae pneumonia: QUALIFIERS: Laterality: unspecified laterality Lung location: unspecified part of lung Qualified Code(s): J14 - Pneumonia due to Hemophilus influenzae PLAN: beta lactamase negative has been on CTX will discharge with levofloxacin for 4 more days to complete 7 days of abx. (3) Hypoxia: PLAN: 2/2 to above. oxygen has been able to be weaned. Normally, does not use oxygen. PLAN: Plan Chronic conditions: * CARMELLA: CPAP QHS * CAD: s/p PCI. continue ASA and clopidogrel * gout: continue allopurinol DVT prophylaxis Subcutaneous Lovenox ordered.
[2023-01-14] MEDS: Azelastine HCl NASAL.SRY 1 SPRAY NASAL (08:42)
[2023-01-14] MEDS: Clopidogrel Bisulfate 75 MG Tablet PO (08:43)
[2023-01-14] MEDS: Enoxaparin 40 MG/0.4 ML Syringe SC (08:43)
[2023-01-14] MEDS: Loratadine 10 MG Tablet PO (08:43)
[2023-01-14] MEDS: Losartan Potassium 50 MG Tablet PO (08:44)
[2023-01-14] MEDS: Cholecalciferol (VIT D3) 25 MCG TABLET (1,000 UNITS) PO (08:44)
[2023-01-14] MEDS: Multivitamins,Therapeutic Tablet 1 TABLET PO (08:45)
[2023-01-14] MEDS: Pantoprazole Sodium 40 MG Tablet PO (08:45)
[2023-01-14] MEDS: Aspirin 81 MG TAB.CHEW PO (08:45)
[2023-01-14] MEDS: guaiFENesin 1,200 MG Tablet 1200 MG PO (08:45)
[2023-01-14] MEDS: Allopurinol 300 MG Tablet PO (08:45)
[2023-01-14] MEDS: Fluticasone 0.05% 1 SPRAY NASAL.SRY NASAL (08:45)
[2023-01-14] MEDS: Methylprednisolone Sod Succ 40 MG/ML VIAL IV (08:46)
[2023-01-14 09:20] VITALS: BP 133/74; PULSE 91; RESP 20; TEMP 36.4; O2SAT 94
--- NOTE | 2023-01-14 11:06 | DCINST_ITS ---
Discharge Instructions Diet Discharge Diet: Low fat / Low cholesterol Dressing / Incision Call your doctor if you observe: Shortness of breath Follow Up Care Test Results: Test results from this visit will be discussed in further detail at your follow- up appointment, if applicable. Discharge Plan Admission Admit Date/Time: 01/11/23 04:56 Primary Reason for Your Visit: Asthma exacerbation. Haemophilous influenza pneumonia. Attending Provider: Pa Wlison Primary Care Provider: Digna Ureña Consulting Providers: Jerman Vigil; Tere Mariee Discharge Orders/Prescriptions Prescriptions: New levofloxacin 750 mg tablet 750 mg PO Q24H Qty: 4 0RF prednisone 10 mg tablet 10 mg PO DAILY Qty: 60 0RF Rx Instructions: 4 tabs daily x 3d, then 3 tabs daily x 3d, then 2 tabs daily x 3, then 1 tab daily x 3d, then 1/2 tab daily Continued multivitamin Tablet 1 tab PO DAILY (DME) PEP device See Rx Instructions .ROUTE .MEDSUPPLY Qty: 1 0RF Rx Instructions: with training Tezspire 210 mg/1.91 mL (110 mg/mL) pen injector 210 mg subcut Q4W Qty: 1.91 12RF clopidogrel 75 mg tablet 75 mg PO DAILY Qty: 90 3RF ipratropium bromide 42 mcg (0.06 %) spray,non-aerosol 1 spray intranasal BID PRN (Reason: allergies) Rx Instructions: administer into each nostril aspirin 81 mg Tablet,Chewable 81 mg PO BREAKFAST Qty: 90 3RF allopurinol 300 mg tablet 300 mg PO DAILY Qty: 90 3RF cholecalciferol (vitamin D3) 25 mcg (1,000 unit) capsule 25 mcg PO DAILY Qty: 90 3RF Advair HFA 230-21 mcg/actuation HFA aerosol inhaler 2 puff inhalation Q12H Qty: 3 3RF guaifenesin 1,200 mg tablet extended release 12hr 1,200 mg PO Q12H Qty: 60 6RF irbesartan 150 mg tablet 150 mg PO DAILY Qty: 90 3RF lansoprazole [Prevacid] 30 mg capsule,delayed release(DR/EC) 30 mg PO DAILY Qty: 90 3RF loratadine 10 mg tablet 10 mg PO DAILY Qty: 90 3RF montelukast 10 mg tablet 10 mg PO QPM Qty: 90 3RF rosuvastatin 5 mg tablet 2.5 mg PO QODAY Qty: 90 3RF tamsulosin 0.4 mg capsule 0.4 mg PO DAILY Qty: 90 3RF Spiriva Respimat 1.25 mcg/actuation mist 2 puff inhalation DAILY Qty: 3 3RF trazodone 100 mg tablet 100 mg PO QHS PRN (Reason: insomnia) 90 Days Qty: 40 1RF albuterol sulfate [Ventolin HFA] 90 mcg/actuation HFA aerosol inhaler 2 puff inhalation Q4H PRN (Reason: shortness of breath or wheezing) Qty: 18 6RF albuterol sulfate 2.5 mg /3 mL (0.083 %) solution for nebulization 2.5 mg inhalation .COMPLEX Qty: 180 11RF Rx Instructions: 2.5 mg inhaled BID; J45.9 Asthma azelastine-fluticasone 137-50 mcg/spray spray,non-aerosol 1 spray intranasal BID Qty: 23 6RF Rx Instructions: administer into each nostril Discontinued prednisone 10 mg tablet 10 mg PO QODAY Referrals / Follow Up: Pulmonary Medicine [facility] [Provider Group] - Within 2 Weeks Digna Ureña MD [Primary Care Provider] - Within 2 Weeks Disposition Disposition (needs filled in before D/C Order can be placed): Home, Self Care
--- NOTE | 2023-01-14 11:13 | DS.PCM_ITS ---
Providers Date of Admission: 01/11/23 Primary Care Physician: Dr. Digna Ureña MD Reason For Visit: COPD EXACERBATION Diagnosis Discharge Diagnosis (1) Asthma exacerbation: Status: Acute Code(s): J45.901 - Unspecified asthma with (acute) exacerbation Qualifiers: Asthma severity: severe Asthma persistence: persistent Qualified Code(s): J45.51 - Severe persistent asthma with (acute) exacerbation Plan: Exacerbated by H. influenza I reviewed records from the pulmonary office from 11/25: Pt w severe, persistent asthma. Has previously failed Nucala. Now on texepelumab-ekko Respiratory panel negative. COVID 19, influenza negative. Strep and legionella negative. SCx pending. CXR reviewed, no definitive infiltrate. Discharge on 01/14 with prednisone taper. Would taper to 5mg daily (had been on 10 QOD) Follow up with pulmonary in next few weeks. (2) Haemophilus influenzae pneumonia: Status: Acute Code(s): J14 - Pneumonia due to Hemophilus influenzae Qualifiers: Laterality: unspecified laterality Lung location: unspecified part of lung Qualified Code(s): J14 - Pneumonia due to Hemophilus influenzae Plan: beta lactamase negative has been on CTX will discharge with levofloxacin for 4 more days to complete 7 days of abx. (3) Hypoxia: Status: Acute Code(s): R09.02 - Hypoxemia Plan: 08/07 to above. oxygen has been able to be weaned. Normally, does not use oxygen. Check home oxygen evaluation. Pt already has oxygen at home, but uses PRN. Pt is very adept at check his pulse ox. Plan Chronic conditions: * CARMELLA: CPAP QHS * CAD: s/p PCI. continue ASA and clopidogrel * gout: continue allopurinol DVT prophylaxis Subcutaneous Lovenox ordered. Medications at Discharge Home Medications multivitamin 1 tab PO DAILY 09/19/20 PEP device #1 ea 06/12/22 allopurinol 300 mg tablet 300 mg PO DAILY #90 tabs 07/16/22 cholecalciferol (vitamin D3) 25 mcg (1,000 unit) capsule 25 mcg PO DAILY #90 caps 07/16/22 fluticasone propionate 230 mcg-salmeterol 21 mcg/actuation HFA inhaler (Advair HFA) 2 puff inhalation Q12H #3 ea 07/16/22 guaifenesin 1,200 mg tablet, extended release 12 hr 1,200 mg PO Q12H #60 tabs 07/16/22 irbesartan 150 mg tablet 150 mg PO DAILY #90 tabs 07/16/22 lansoprazole 30 mg capsule,delayed release (Prevacid) 30 mg PO DAILY #90 caps 07/16/22 loratadine 10 mg tablet 10 mg PO DAILY #90 tabs 07/16/22 montelukast 10 mg tablet 10 mg PO QPM #90 tabs 07/16/22 rosuvastatin 5 mg tablet 2.5 mg (1/2 x 5 mg) PO QODAY #90 tabs 07/16/22 tamsulosin 0.4 mg capsule 0.4 mg PO DAILY #90 caps 07/16/22 tiotropium bromide 1.25 mcg/actuation mist for inhalation (Spiriva Respimat) 2 puff inhalation DAILY #3 ea 07/16/22 trazodone 100 mg tablet 100 mg PO QHS PRN insomnia 90 days #40 tabs 07/16/22 albuterol sulfate 90 mcg/actuation aerosol inhaler (Ventolin HFA) 2 puff inhalation Q4H PRN shortness of breath or wheezing #18 grams 07/17/22 aspirin 81 mg chewable tablet 81 mg PO BREAKFAST #90 tabs 08/15/22 albuterol sulfate 2.5 mg/3 mL (0.083 %) solution for nebulization 2.5 mg (3 mL) inhalation .COMPLEX Sob &/Or Wheezing #180 mL 09/24/22 azelastine-fluticasone 137 mcg-50 mcg/spray nasal spray 1 spray intranasal BID #23 grams 10/06/22 clopidogrel 75 mg tablet 75 mg PO DAILY #90 tabs 10/10/22 ipratropium bromide 42 mcg (0.06 %) nasal spray 1 spray intranasal BID PRN allergies 11/12/22 tezepelumab-ekko 210 mg/1.91 mL (110 mg/mL) subcutaneous pen injector (Tezspire) 210 mg (1.91 mL) subcut Q4W #1.91 mL 11/28/22 levofloxacin 750 mg tablet 750 mg PO Q24H #4 tabs 01/14/23 prednisone 10 mg tablet 10 mg PO DAILY #60 tabs 01/14/23 Hospital Course Operations None Procedures None Summary of Care Provided Minutes Spent on Discharge: 35 Weight / BMI Weight Weight: 129 kg Body Mass Index (BMI) 40.8 ABG / Lab / Microbiology Data 01/13/23 04:53 01/12/23 05:15 Microbiology: Microbiology 01/11/23 01:33 Sputum, Expectorated/Coughed Gram Stain - Final 01/11/23 01:33 Sputum, Expectorated/Coughed Respiratory Culture - Final Haemophilus influenzae 01/11/23 14:14 Mucosa - Nose Respiratory Panel (PCR) - Final 01/11/23 12:32 Urine, Random Legionella Antigen - Final 01/11/23 12:32 Urine, Random Streptococcus pneumoniae Antigen (M - Final 01/11/23 01:36 Nasal Secretion SARS-CoV-2 & FLU Antigen (Rapid) - Final D/C Instructions Discharge Diet: Low fat / Low cholesterol Call your doctor if you observe: Shortness of breath Meaningful Use Info Meaningful Use Diagnoses (Choose all that apply): None applicable Discharge Plan Admission Admit Date/Time: 01/11/23 04:56 Primary Reason for Your Visit: Asthma exacerbation. Haemophilous influenza pneumonia. Attending Provider: Pa Wilson Primary Care Provider: Digna Ureña Consulting Providers: Jerman Vigil; Tere Mariee Discharge Orders/Prescriptions Prescriptions: New levofloxacin 750 mg tablet 750 mg PO Q24H Qty: 4 0RF prednisone 10 mg tablet 10 mg PO DAILY Qty: 60 0RF Rx Instructions: 4 tabs daily x 3d, then 3 tabs daily x 3d, then 2 tabs daily x 3, then 1 tab daily x 3d, then 1/2 tab daily Continued multivitamin Tablet 1 tab PO DAILY (DME) PEP device See Rx Instructions .ROUTE .MEDSUPPLY Qty: 1 0RF Rx Instructions: with training Tezspire 210 mg/1.91 mL (110 mg/mL) pen injector 210 mg subcut Q4W Qty: 1.91 12RF clopidogrel 75 mg tablet 75 mg PO DAILY Qty: 90 3RF ipratropium bromide 42 mcg (0.06 %) spray,non-aerosol 1 spray intranasal BID PRN (Reason: allergies) Rx Instructions: administer into each nostril aspirin 81 mg Tablet,Chewable 81 mg PO BREAKFAST Qty: 90 3RF allopurinol 300 mg tablet 300 mg PO DAILY Qty: 90 3RF cholecalciferol (vitamin D3) 25 mcg (1,000 unit) capsule 25 mcg PO DAILY Qty: 90 3RF Advair HFA 230-21 mcg/actuation HFA aerosol inhaler 2 puff inhalation Q12H Qty: 3 3RF guaifenesin 1,200 mg tablet extended release 12hr 1,200 mg PO Q12H Qty: 60 6RF irbesartan 150 mg tablet 150 mg PO DAILY Qty: 90 3RF lansoprazole [Prevacid] 30 mg capsule,delayed release(DR/EC) 30 mg PO DAILY Qty: 90 3RF loratadine 10 mg tablet 10 mg PO DAILY Qty: 90 3RF montelukast 10 mg tablet 10 mg PO QPM Qty: 90 3RF rosuvastatin 5 mg tablet 2.5 mg PO QODAY Qty: 90 3RF tamsulosin 0.4 mg capsule 0.4 mg PO DAILY Qty: 90 3RF Spiriva Respimat 1.25 mcg/actuation mist 2 puff inhalation DAILY Qty: 3 3RF trazodone 100 mg tablet 100 mg PO QHS PRN (Reason: insomnia) 90 Days Qty: 40 1RF albuterol sulfate [Ventolin HFA] 90 mcg/actuation HFA aerosol inhaler 2 puff inhalation Q4H PRN (Reason: shortness of breath or wheezing) Qty: 18 6RF albuterol sulfate 2.5 mg /3 mL (0.083 %) solution for nebulization 2.5 mg inhalation .COMPLEX Qty: 180 11RF Rx Instructions: 2.5 mg inhaled BID; J45.9 Asthma azelastine-fluticasone 137-50 mcg/spray spray,non-aerosol 1 spray intranasal BID Qty: 23 6RF Rx Instructions: administer into each nostril Discontinued prednisone 10 mg tablet 10 mg PO QODAY Referrals / Follow Up: Pulmonary Medicine [facility] [Provider Group] - Within 2 Weeks Digna Ureña MD [Primary Care Provider] - Within 2 Weeks Disposition Disposition (needs filled in before D/C Order can be placed): Home, Self Care Charges/Coding Visit Charges Inpatient E&M: 55417 Disch Hosp >30min
[2023-01-14 11:28] VITALS: PULSE 79; RESP 18; O2SAT 92
--- NOTE | 2023-01-14 12:22 | PHA.DC_ITS ---
Pharmacy [facility] has performed discharge medication reconciliation and counseling for this patient. 1. LEVOFLOXACIN 750MG PO DAILY X 4 DAYS The patient's discharge medication list was reviewed for discrepancies and discrepancies were resolved. The patient was counseled on the following discharge medications and changes in medications for homegoing were reviewed. The Reason for Use, instructions for use, and potential side effects were reviewed for all new medications. The patient's questions regarding all of their medications were answered. The patient was able to verbally demonstrate an understanding of their discharge medications. Patient counseled by pharmacy technology instructorArsen. Medications at Discharge Home Medications multivitamin 1 tab PO DAILY 09/19/20 PEP device #1 ea 06/12/22 allopurinol 300 mg tablet 300 mg PO DAILY #90 tabs 07/16/22 cholecalciferol (vitamin D3) 25 mcg (1,000 unit) capsule 25 mcg PO DAILY #90 caps 07/16/22 fluticasone propionate 230 mcg-salmeterol 21 mcg/actuation HFA inhaler (Advair HFA) 2 puff inhalation Q12H #3 ea 07/16/22 guaifenesin 1,200 mg tablet, extended release 12 hr 1,200 mg PO Q12H #60 tabs 07/16/22 irbesartan 150 mg tablet 150 mg PO DAILY #90 tabs 07/16/22 lansoprazole 30 mg capsule,delayed release (Prevacid) 30 mg PO DAILY #90 caps 07/16/22 loratadine 10 mg tablet 10 mg PO DAILY #90 tabs 07/16/22 montelukast 10 mg tablet 10 mg PO QPM #90 tabs 07/16/22 rosuvastatin 5 mg tablet 2.5 mg (1/2 x 5 mg) PO QODAY #90 tabs 07/16/22 tamsulosin 0.4 mg capsule 0.4 mg PO DAILY #90 caps 07/16/22 tiotropium bromide 1.25 mcg/actuation mist for inhalation (Spiriva Respimat) 2 puff inhalation DAILY #3 ea 07/16/22 trazodone 100 mg tablet 100 mg PO QHS PRN insomnia 90 days #40 tabs 07/16/22 albuterol sulfate 90 mcg/actuation aerosol inhaler (Ventolin HFA) 2 puff inhalation Q4H PRN shortness of breath or wheezing #18 grams 07/17/22 aspirin 81 mg chewable tablet 81 mg PO BREAKFAST #90 tabs 08/15/22 albuterol sulfate 2.5 mg/3 mL (0.083 %) solution for nebulization 2.5 mg (3 mL) inhalation .COMPLEX Sob &/Or Wheezing #180 mL 09/24/22 azelastine-fluticasone 137 mcg-50 mcg/spray nasal spray 1 spray intranasal BID #23 grams 10/06/22 clopidogrel 75 mg tablet 75 mg PO DAILY #90 tabs 10/10/22 ipratropium bromide 42 mcg (0.06 %) nasal spray 1 spray intranasal BID PRN allergies 11/12/22 tezepelumab-ekko 210 mg/1.91 mL (110 mg/mL) subcutaneous pen injector (Tezspire) 210 mg (1.91 mL) subcut Q4W #1.91 mL 11/28/22 levofloxacin 750 mg tablet 750 mg PO Q24H #4 tabs 01/14/23 prednisone 10 mg tablet 10 mg PO DAILY #60 tabs 01/14/23
--- NOTE | 2023-01-14 12:35 | CASEMGMT ---
NICOLE LEMONS Follow-up: Face to face at bedside. Pt alert, sitting up in the chair with his at bedside. Pt and voiced multiple concerns regarding discharge including: frequency of pulmonary toileting and nebulizer medication amount available at home, O2 need, vest tx order from Dr. Theodore's office, and follow-up appointment with Dr. Theodore. Pt states he has an appointment on this Tuesday 01/16 at 0815 with [facility] mix technician for a second opinion. Pt currently using his own PO monitor and relayed plans to check his PO intermittently throughout the day at home. Discussed concerns with Dr. Wilson. Pulmonary toileting w/nebulizer tx as ordered BID but pt can increase if needed. Pt to follow-up with mix technician for any additional albuterol prescriptions. Call placed to [facility] who states script for vest was sent to [facility] yesterday or the day before. Scheduled appointment with VERÓNICA Liang for 01/28 at 1445, was informed they could not make an earlier appointment based on discharge instructions. Dr. Wilson felt f/u in 2 weeks is appropriate. Call placed to [facility], naseem was received and they are awaiting insurance approval which should be received in 1-2 days. They will contact pt upon receipt to set up delivery. Discussed home O2 need with RN who completed qualification testing. Pt was tachycardic but not hypoxic with ambulation. Discussed with Dr. Wilson and pt to wear home O2 prn as prior to admission. All information relayed to pt and pt's who expressed understanding. Pt's continued to express concern with pt's discharge. Pt without additional concerns. Re-educated pt and pt's on appeal rights if they disagree with their discharge. No additional concerns expressed. Plan: Discharge home with support of and follow-up as noted above. Shahid Hamm RN CM
[2023-01-14 12:47] VITALS: BP 133/74; PULSE 91; RESP 20; TEMP 36.4; O2SAT 94
--- NOTE | 2023-01-14 13:43 | NURSING ---
Patient discharged home per orders. Orders reviewed with patient and his and they both verbalized understanding. They stated they had no questions. IV removed from LAC. Patient tolerated well. DD and sensitive tape applied. Patient left floor ambulating without any assist. accompanied. Stated they didn't want to wait for transport.
== END 2023-01-14 13:30 | disposition home or self-care (01) | DRG 202 ==
LOC: ED 01-11 03:06 → PCU 01-11 06:32
PROVIDERS: Admitting Provider Hospitalist; Emergency Provider Emergency Medicine; PCP Internal Medicine; Referring Provider Hospitalist
DX: J45.51 Severe persistent asthma with (acute) exacerbation (principal); J14 Pneumonia due to Hemophilus influenzae; Z68.41 Body mass index [BMI] 40.0-44.9, adult; E66.01 Morbid (severe) obesity due to excess calories; K21.9 Gastro-esophageal reflux disease without esophagitis; I25.10 Atherosclerotic heart disease of native coronary artery without angina pectoris; I10 Essential (primary) hypertension; G47.33 Obstructive sleep apnea (adult) (pediatric); E78.5 Hyperlipidemia, unspecified; M10.9 Gout, unspecified; G47.00 Insomnia, unspecified; Z79.02 Long term (current) use of antithrombotics/antiplatelets; Z79.82 Long term (current) use of aspirin; R09.02 Hypoxemia; Z86.16 Personal history of COVID-19; Z95.5 Presence of coronary angioplasty implant and graft
CPT/HCPCS: 36415; 71045; 80048; 80053; 83880; 84484; 85025; 87070; 87077; 87205; 87428; 87449; 87633; 93005; 94640; 94667; 94668; 99285; J7030; A4216

== ENCOUNTER 2023-01-23 12:44 | Outpatient (CLI) | payer MEDICARE, BC, SELFPAY ==
[2022-12-12 12:57] VITALS: BMI 40.8
[2023-01-23 12:55] VITALS: BP 138/83; PULSE 89; RESP 18; TEMP 36.4; O2SAT 94; BMI 40.0
[2023-01-23] MEDS: tezepelumab-ekko 210 MG/1.91 ML SYRINGE SC (12:57)
== END 2023-01-23 12:45 | disposition home or self-care (01) ==
LOC: MEDOUTP 12:44
PROVIDERS: Referring Provider Nurse Practitioner Acute Care; Visit Provider Nurse Practitioner Acute Care
DX: J45.50 Severe persistent asthma, uncomplicated (principal)
CPT/HCPCS: 96372; J2356

== ENCOUNTER 2023-02-23 14:14 | Outpatient (CLI) | payer MEDICARE, BC, SELFPAY ==
[2022-12-12 12:57] VITALS: BMI 40.8
[2023-02-23 14:35] VITALS: BP 124/69; PULSE 85; RESP 16; TEMP 36.6; O2SAT 93; BMI 39.6
[2023-02-23] MEDS: tezepelumab-ekko 210 MG/1.91 ML SYRINGE SC (14:54)
== END 2023-02-23 14:15 | disposition home or self-care (01) ==
LOC: MEDOUTP 14:14
PROVIDERS: Referring Provider Nurse Practitioner Acute Care; Visit Provider Nurse Practitioner Acute Care
DX: J45.50 Severe persistent asthma, uncomplicated (principal)
CPT/HCPCS: 96372; J2356

== ENCOUNTER 2023-03-20 13:52 | Outpatient (CLI) | payer MEDICARE, BC, SELFPAY ==
[2022-12-12 12:57] VITALS: BMI 40.8
[2023-03-20 14:01] VITALS: BP 124/79; PULSE 95; RESP 18; TEMP 36.2; O2SAT 95; BMI 40.1
[2023-03-20] MEDS: tezepelumab-ekko 210 MG/1.91 ML SYRINGE SC (14:05)
== END 2023-03-20 13:53 | disposition home or self-care (01) ==
LOC: MEDOUTP 13:52
PROVIDERS: Referring Provider Nurse Practitioner Acute Care; Visit Provider Nurse Practitioner Acute Care
DX: J45.50 Severe persistent asthma, uncomplicated (principal)
CPT/HCPCS: 96372; J2356

== ENCOUNTER 2023-04-17 13:47 | Outpatient (CLI) | payer MEDICARE, BC, SELFPAY ==
[2022-12-12 12:57] VITALS: BMI 40.8
[2023-04-17 13:55] VITALS: BP 154/68; PULSE 85; RESP 16; TEMP 36.4; O2SAT 93; BMI 41.3
[2023-04-17] MEDS: tezepelumab-ekko 210 MG/1.91 ML SYRINGE SC (13:57)
== END 2023-04-17 13:48 | disposition home or self-care (01) ==
LOC: MEDOUTP 13:47
PROVIDERS: PCP Internal Medicine; Referring Provider Nurse Practitioner Acute Care; Visit Provider Nurse Practitioner Acute Care
DX: J45.50 Severe persistent asthma, uncomplicated (principal)
CPT/HCPCS: 96372; J2356

== ENCOUNTER 2023-05-15 13:47 | Outpatient (CLI) | payer MEDICARE, BC, SELFPAY ==
[2022-12-12 12:57] VITALS: BMI 40.8
[2023-05-15 13:58] VITALS: BP 149/82; PULSE 77; RESP 16; TEMP 36.2
[2023-05-15] MEDS: tezepelumab-ekko 210 MG/1.91 ML SYRINGE SC (13:59)
== END 2023-05-15 13:48 | disposition home or self-care (01) ==
LOC: MEDOUTP 13:47
PROVIDERS: PCP Internal Medicine; Referring Provider Nurse Practitioner Acute Care; Visit Provider Nurse Practitioner Acute Care
DX: J45.50 Severe persistent asthma, uncomplicated (principal)
CPT/HCPCS: 96372; J2356

== ENCOUNTER 2023-06-15 14:52 | Outpatient (CLI) | payer MEDICARE, BC, SELFPAY ==
[2022-12-12 12:57] VITALS: BMI 40.8
[2023-06-15 14:58] VITALS: BP 147/73; PULSE 80; RESP 16; TEMP 36.1; O2SAT 99
[2023-06-15] MEDS: tezepelumab-ekko 210 MG/1.91 ML SYRINGE SC (15:17)
== END 2023-06-15 14:53 | disposition home or self-care (01) ==
LOC: MEDOUTP 14:52
PROVIDERS: PCP Internal Medicine; Referring Provider Nurse Practitioner Acute Care; Visit Provider Nurse Practitioner Acute Care
DX: J45.50 Severe persistent asthma, uncomplicated (principal)
CPT/HCPCS: 96372; J2356

== ENCOUNTER 2023-07-13 14:22 | Outpatient (CLI) | payer MEDICARE, BC, SELFPAY ==
[2022-12-12 12:57] VITALS: BMI 40.8
[2023-07-13 14:33] VITALS: BP 122/60; PULSE 82; RESP 16; TEMP 36.3; O2SAT 96
[2023-07-13] MEDS: tezepelumab-ekko 210 MG/1.91 ML SYRINGE SC (14:37)
--- OUTSIDE RECORDS SUMMARY | 2023-07-13 15:49 | XMS RPT_ITS | CCD ---
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 Name Role Phone DESIRAE BRAVO Unavailable Unavailable DESIRAE BRAVO Unavailable Unavailable Art Ureña MD Primary Care Provider SHABANA LAURENT Referring Unavailable ZACH, ART Matias Primary Care Unavailable SHABANA LAURENT Attending Unavailable ZACH, ART Matias Primary Care Unavailable SHABANA LAURENT Referring Unavailable ZACH, ART Matias Primary Care Unavailable OVI, ELENA A Referring Unavailable ZACH, ART Matias Primary Care Unavailable SHABANA LAURENT Referring Unavailable ZACH, ART Polly Primary Care Unavailable ZACH, ART M Primary Care Unavailable SHABANA LAURENT Referring Unavailable ZACH, ART Polly Primary Care Unavailable PENA, ELENA A Attending Unavailable OVI, ELENA A Referring Unavailable ZACH, ART M Primary Care Unavailable ZACH, ART M Primary Care Unavailable ZACH, ART M Primary Care Unavailable BARBARA MARTINS Attending Unavailable ZACH, ART Matias Primary Care Unavailable BARBARA MARTINS Referring Unavailable ZACH, ART Polly Primary Care Unavailable PENA, ELENA A Referring Unavailable SHABANA LAURENT Attending Unavailable SHABANA LAURENT Referring Unavailable Allergies Allergy Classification Reported Allergen(s) Allergy Type Date of Onset Reaction(s) Facility (20 sources) lisinopril; Translations: [LISINOPRIL] Drug Allergy 3 Cough [facility] Repository (20 sources) simvastatin; Translations: [SIMVASTATIN] Drug Allergy 2 Other: See Comments [facility] Repository Medications Completed/Discontinued Medications Medication Drug Class(es) Dates Sig (Normalized) Sig (Original) [id number] 200 actuat albuterol 0.09 mg/actuat metered dose inhaler (20 sources) beta2-Adrenergic Agonist Start: 05-27-2023 End: 05-27-2023 take 2 puff(s) by inhalation every six hours as needed for wheezing albuterol HFA (PROAIR HFA) 90 mcg/actuation inhaler Indications: Severe persistent asthma without complication Inhale 2 Puffs as instructed every 6 hours as needed for wheezing/shortness of breath. 1 Each 5 05/27/2023 Active Problems Active Problems Problem Classification Problem Date Documented Date Episodic/Chronic Abdominal hernia (20 sources) Umbilical hernia; Translations: [Umbilical hernia without obstruction or gangrene] 06-23-2016 Episodic Asthma (20 sources) Asthma; Translations: [Unspecified asthma, uncomplicated] Onset: 11-21-2014 01-16-2023 Chronic Chronic obstructive pulmonary disease and bronchiectasis (4 sources) Bronchiectasis; Translations: [Bronchiectasis, uncomplicated] Onset: 02-23-2023 02-12-2023 Chronic Disorders of lipid metabolism (20 sources) Mixed hyperlipidemia; Translations: [Mixed hyperlipidemia] 06-23-2016 Chronic Esophageal disorders (20 sources) Gastroesophageal reflux disease; Translations: [Gastro-esophageal reflux disease without esophagitis] 06-23-2016 Chronic Essential hypertension (20 sources) Hypertensive disorder; Translations: [Essential (primary) hypertension] Onset: 05-27-2010 05-27-2010 Chronic Gout and other crystal arthropathies (20 sources) Gout; Translations: [Gout, unspecified] Onset: 02-13-2013 02-13-2013 Chronic Hyperplasia of prostate (20 sources) Benign prostatic hypertrophy with outflow obstruction; Translations: [Benign prostatic hyperplasia with lower urinary tract symptoms] Onset: 02-18-2015 02-18-2015 Chronic Immunity disorders (5 sources) Hypogammaglobulinemia; Translations: [Nonfamilial hypogammaglobulinemia] Onset: 04-22-2023 02-13-2023 Chronic Immunizations and screening for infectious disease (1 source) Vaccination needed; Translations: [Encounter for immunization] 05-06-2023 Episodic Other lower respiratory disease (1 source) Fibrosis of lung; Translations: [Pulmonary fibrosis, unspecified] 02-13-2023 Chronic Other lower respiratory disease (2 sources) History of recurrent pneumonia; Translations: [Personal history of pneumonia (recurrent)] 02-12-2023 Episodic Other nutritional; endocrine; and metabolic disorders (20 sources) Morbid obesity; Translations: [Morbid (severe) obesity due to excess calories] 06-23-2016 Chronic Other upper respiratory disease (1 source) Chronic rhinitis; Translations: [Chronic rhinitis] 03-31-2023 Chronic Other upper respiratory infections (20 sources) Chronic sinusitis; Translations: [Chronic sinusitis, unspecified] Onset: 11-21-2014 07-01-2021 Chronic Residual codes; unclassified (20 sources) Obstructive sleep apnea syndrome; Translations: [Obstructive sleep apnea (adult) (pediatric)] 06-23-2016 Chronic Spondylosis; intervertebral disc disorders; other back problems (20 sources) Degeneration of cervical intervertebral disc; Translations: [Other cervical disc degeneration, unspecified cervical region] Onset: 07-08-2013 07-08-2013 Chronic Thyroid disorders (20 sources) Non-toxic uninodular goiter; Translations: [Nontoxic single thyroid nodule] Onset: 05-25-2018 05-25-2018 Chronic Past or Other Problems Problem Classification Problem Date Documented Da te Episodic/Chronic Acquired foot deformities (20 sources) Talipes planus; Translations: [Flat foot [pes planus] (acquired), unspecified foot] Onset: 10-11-2010 10-11-2010 Episodic Calculus of urinary tract (20 sources) Recurrent kidney stone; Translations: [Calculus of kidney] Onset: 02-13-2013 02-13-2013 Episodic Diabetes mellitus without complication (20 sources) Prediabetes; Translations: [Prediabetes] Onset: 09-12-2016 09-12-2016 Episodic Other lower respiratory disease (1 source) Personal history of pneumonia (recurrent); Translations: [H/O recurrent pneumonia] Onset: 02-12-2023 Episodic Other skin disorders (20 sources) Epidermoid cyst; Translations: [Epidermal cyst] Onset: 06-10-2018 06-10-2018 Episodic Pneumonia (except that caused by tuberculosis or sexually transmitted disease) (2 sources) Recurrent pneumonia; Translations: [Pneumonia, unspecified organism] Onset: 02-02-2023 01-16-2023 Episodic Residual codes; unclassified (20 sources) Insomnia; Translations: [Insomnia, unspecified] Onset: 05-31-2012 05-31-2012 Episodic Unclassified (20 sources) Encounter for screening for malignant neoplasm of colon; Translations: [Patient encounter status] Onset: 05-15-2017 05-15-2017 Episodic Results Test Name Value Interpretation Reference Range Facil ity Vital Signs Date Time Vital Sign Value Performing Clinician Sweta alves 05-18-2023 11:01-0500 Body weight 127.01 kg Barbara Rebecca PA-C Work Phone: [facility] 05-18-2023 11:01-0500 Diastolic blood pressure 80 mm[Hg] Barbara Rebecca PA-C Work Phone: [facility] 05-18-2023 11:01-0500 Heart rate 63 /min Barbara Rebecca PA-C Work Phone: [facility] 05-18-2023 11:01-0500 Respiratory rate 16 /min Barbara Rebecca PA-C Work Phone: [facility] 05-18-2023 11:01-0500 SaO2% (BldA) [Mass fraction] 95 % Barbara Rebecca PA-C Work Phone: [facility] 05-18-2023 11:01-0500 Systolic blood pressure 142 mm[Hg] Barbara Rebecca PA-C Work Phone: [facility] 03-31-2023 14:06-0400 Body weight 131.09 kg Elena Pena MD Work Phone: [facility] 03-31-2023 14:06-0400 Diastolic blood pressure 78 mm[Hg] Elena Pena MD Work Phone: [facility] 03-31-2023 14:06-0400 Heart rate 78 /min Elena Pena MD Work Phone: [facility] 03-31-2023 14:06-0400 SaO2% (BldA) [Mass fraction] 96 % Elena Pena MD Work Phone: [facility] 03-31-2023 14:06-0400 Systolic blood pressure 143 mm[Hg] Elena Pena MD Work Phone: [facility] 02-12-2023 09:29-0400 Body weight 128.37 kg Shabana Laurent MD Work Phone: [facility] 02-12-2023 09:29-0400 Diastolic blood pressure 76 mm[Hg] Shabana Laurent MD Work Phone: [facility] 02-12-2023 09:29-0400 Systolic blood pressure 142 mm[Hg] Shabana Laurent MD Work Phone: [facility] 01-16-2023 08:46-0400 Body height 175.9 cm Shabana Laurent MD Work Phone: [facility] 01-16-2023 08:46-0400 Body weight 127.46 kg Shabana Laurent MD Work Phone: [facility] 01-16-2023 08:46-0400 Heart rate 76 /min Shabana Laurent MD Work Phone: [facility] 01-16-2023 08:46-0400 Respiratory rate 14 /min Shabana Laurent MD Work Phone: [facility] 01-16-2023 08:46-0400 SaO2% (BldA) [Mass fraction] 94 % Shabana Laurent MD Work Phone: [facility] 01-16-2023 08:24-0400 Body height 175.9 cm Pulm Wstr Work Phone: [facility] 01-16-2023 08:24-0400 Body weight 127.46 kg Pulm Wstr Work Phone: [facility] 01-16-2023 08:24-0400 Heart rate 76 /min Pulm Wstr Work Phone: [facility] 01-16-2023 08:24-0400 SaO2% (BldA) [Mass fraction] 94 % Pulm Wstr Work Phone: [facility] Encounters Encounter Date Encounter Type Care Provider Facility Start: 06-18-2023 Telephone encounter Elena hay MD Work Phone: Allergy Procedures Date Procedure Procedure Detail Performing Clinician Start: 05-18-2023 Noninvasive ear/puls e oximetry multiple deter Barbara Martins PA-C Work Phone: Start: 01-16-2023 Nitric oxide gas determination Shabana Laurent MD Work Phone: Start: 01-16-2023 Brncdilat rspse spmt ry pre&post-brncdilat admn Shabana Laurent MD Work Phone: Start: 02-13-2018 Lipid 1996 panel - S lesly or Plasma Shabana Laurent MD Work Phone: Start: 06-24-2017 Colonoscopy Pulm Wstr Work Phone: Plan of Treatment Date Care Activity Detail Author Start: 06-24-2027 Colonoscopy COLONOSCOPY [facility] Start: 06-24-2027 COLORECTAL CANCER SCREENING COLORECTAL CANCER SCREENING [facility] Start: 06-24-2027 Screening for malignant neoplasm of colon [facility] Start: 06-04-2023 End: 09-03-2023 PNEUMOCOCCAL IGG ABS, 23 SEROTYPES PNEUMOCOCCAL IGG ABS, 23 SEROTYPES Lab Routine Hypogammaglobulinemia (HCC) Expected: 06/04/2023 (Approximate), Expires: 09/03/2023 [facility] Work Phone: Immunizations Immunization Date Immunization Notes Care Provider Irena gomez 05-06-2023 pneumococcal (PCV20) vaccine, 20 valent (PREVNAR 20) Nurse Work Phone: [facility] 05-06-2023 pneumococcal Conjuga te, unspecified formulation Nurse Work Phone: [facility] Work Phone: 04-22-2022 influenza virus vacc ine, unspecified formulation Shabana Laurent MD Work Phone: [facility] 07-04-2021 pneumococcal polysaccharide vaccine, 23 valent Elena Pena MD Work Phone: [facility] Work Phone: 05-07-2018 influenza, high dose seasonal, preservative-free Pulm Wstr Work Phone: [facility] 04-13-2017 influenza, high dose seasonal, preservative-free Pulm [facility]str Work Phone: [facility] 04-13-2017 pneumococcal conjuga te vaccine, 13 valent Pulm [facility]str Work Phone: [facility] 03-22-2016 influenza, injectabl e, quadrivalent, contains preservative Pulm [facility]str Work Phone: [facility] 05-29-2015 pneumococcal polysaccharide vaccine, 23 valent Pulm [facility]str Work Phone: [facility] 04-14-2015 influenza, injectabl e, quadrivalent, contains preservative Pulm Wstr Work Phone: [facility] Work Phone: 04-14-2015 influenza, seasonal, injectable Pulm [facility]str Work Phone: [facility] 10-20-2014 zoster vaccine, live Pulm Ws tr Work Phone: [facility] 05-13-2014 influenza, seasonal, injectable Pulm Wstr Work Phone: [facility] 04-01-2013 influenza virus vacc ine, unspecified formulation Pulm Wstr Work Phone: [facility] Work Phone: 06-23-2012 influenza virus vacc ine, unspecified formulation Pulm [facility]str Work Phone: [facility] 06-07-2011 influenza virus vacc ine, unspecified formulation Pulm [facility]str Work Phone: [facility] 05-27-2010 influenza virus vacc ine, unspecified formulation Pulm Wstr Work Phone: [facility] 07-27-2009 tetanus toxoid, redu day diphtheria toxoid, and acellular pertussis vaccine, adsorbed Pulm [facility]str Work Phone: [facility] Work Phone: 04-16-2009 influenza virus vacc ine, unspecified formulation Pulm Wstr Work Phone: [facility] Work Phone: Payers Date Payer Category Payer Medicare [id number] 2018 Unknown [employer]CELLO [employer] DICARE SUPPLEMENT [id number] 2018-Present [phone] [address] [place] [address] Indemnity [id number] 2017 Medicare MEDICARE MEDICAR E A AND B [id number] 2017-Present [phone] [address] [address] [place] [address] Medicare [id number] 2017 Medicare [id number] Social History Date Type Detail Facility Start: 01-16-2023 Tobacco smoking stat [facility] Never smoked tobacco [facility] Start: 01-16-2023 Tobacco use and exposure Smoke less tobacco non-user [facility] Start: 01-16-2023 End: 05-18-2023 Alcohol intake Current drinker of alcohol (finding) [facility] Start: 06-10-2018 End: 01-16-2023 Alcohol intake [facility] Start: 06-10-2018 End: 01-16-2023 Tobacco use panel [facility] Adult Depression Screening Assessment 0 [facility] Start: 01-16-2023 Tobacco Comment Parents smoked in childhood home. [facility] Start: 1950 Sex Assigned At Male [facility] Start: 06-21-2021 Gender identity Identifies as male gender (finding) [facility] Start: 06-21-2021 Sexual orientation Heterosexual (fin josephine) [facility] Clinical Notes 02-13-2013 to 06-18-2023 Telephone Encounter - Lila Crespo - 06/18/2023 1:33 PM ESTTelephone Encounter - Elena Pena MD - 06/18/2023 12:06 PM ESTTelephone Encounter - Cadence Bryan LPN - 05/27/2023 4:42 PM EST Note Date & Type Note Facility 06-18-2023 Miscellaneous Notes Spoke with patient scheduled patient with for a virtual visit 07-22-2023 at 8am Please contact patient and let him know that I would like to see him for a follow-up visit (in-office or virtual) to discuss his lab results and review how he has been doing clinically since his last visit. Assist with scheduling. Elena Pena MD documented in this encounter [facility] 05-27-2023 Miscellaneous Notes Faxed signed order by Barbara Martins PA-C to discontinue home oxygen to [facility] [place]. Cadence Bryan LPN documented in this encounter [facility] 05-27-2023 Miscellaneous Notes Addended by: BARBARA MARTINS on: 05/27/2023 03:28 PM Modules accepted: Orders documented in this encounter [facility] 05-18-2023 Note HNO ID: [id number] Author: Shey Bolanos RPFT Service: ? Author Type: Respiratory Therapist Type: Procedures Filed: 05/18/2023 11:24 AM Note Text: RESPIRATORY THERAPY OXIMETRY WITH AMBULATION Oximetry with Ambulation Test for This Encounter O2 Device O2 Adapter NC O2 Flow SpO2% HR Activity Ft Walked (ft) Time (min) Avg Speed (MPH) R/A 95 89 Resting R/A 94 104 Walking, usual pace 570 3 2.16 R/A 94 134 Walking, fastest pace 785 3 2.97 General Information Pulse Oximetry Site Total Time Spent O2 Supply Carrier Walking Assistance/Device R Index Finger 30 -- None NAME: BIPIN Whitley PATIENT NAME: Puneet Ashley DATE: May 18, 2023 TIME: 11:24 AM Comment: [facility] 05-18-2023 Note HNO ID: [id number] Author: Shey Bolanos RPFT Service: ? Author Type: Respiratory Therapist Type: Progress Notes Filed: 05/18/2023 11:23 AM Note Text: PULM FUNCTION SMARTBLOCK: Provider: Barbara Martins PA-C Assisting Tech: Shey Bolanos RPFT Oximetry - Ambulation: 1 [facility] 05-18-2023 Note HNO ID: [id number] Author: Barbara Martins PA-C Service: ? Author Type: Physician Ventilating Expert Type: Progress Notes Filed: 05/18/2023 2:26 PM Note Text: Patient: Puneet Ashley PCP: Art Ureña MD CC: routine follow up HPI: Puneet Ashley 72 year old morbidly obese male, never smoker with PMH significant for severe persistent asthma diagnosed by positive DARIEL, GERD, gout, glaucoma, CARMELLA on CPAP, HTN, HLD, coronary artery disease s/p stent. Was last seen by Dr. Laurent 02/12 following a recent hospital admission for Haemophilus influenza pneumonia. Patient with a history of recurrent pneumonia and patient with a low IgG level. He was referred to Dr. Pena for an immunology evaluation. After further testing, which was normal, patient was instructed to have Prevnar 20 and repeat pneumococcal IgG titers 1 month post vaccination. Current therapy consists of Advair, Spiriva, and Tezspire every 4 weeks. He remains on daily Azithromycin as well as Singulair and Claritin. Today, patient states he is doing well. Tolerating Azithromycin without GI distress or change in hearing. No significant cough or sputum production. Patient does not note wheezing currently. Denies SOB. Is more limited by leg weakness/pain. Follows with [facility] and placed on Atrovent nasal spray. He also has deviated septum. Consistently wears CPAP with all sleep. Is currently not wearing supplemental oxygen. DME: [facility]. PAST MEDICAL HISTORY Diagnosis Date Asthma 11/21/201411/2014: DARIEL +, 20% drop in FEV1 at 25 mg/mL. Bronchiectasis (HCC) Mild Chronic sinusitis 11/21/201411/2014 CT sinus. DDD (degenerative disc disease), cervical DDD (degenerative disc disease), lumbar GERD (gastroesophageal reflux disease) Glaucoma (increased eye pressure) Bilateral Dr. Hdz Gout Hard of hearing hearing aids, Dr. Carlson Hemorrhage of gastrointestinal tract, unspecified Hypertension Mixed hyperlipidemia Hyperlipidemia Nephrolithiasis seen Dr Lanier Obstructive sleep apnea using CPAP Prediabetes Umbilical hernia Allergies: Lisinopril Cough Simvastatin Other: See Comments Comment:elevated liver enzyme,elevated muscle enzyme tezepelumab-ekko (TEZSPIRE) 210 mg/1.91 mL (110 mg/mL) syringe Inject 1.91 mL subcutaneously every 4 weeks. azithromycin (ZITHROMAX) 250 mg tablet Take one daily. Do not take with Levaquin fluticasone-salmeterol HFA (ADVAIR HFA) 230-21 mcg/actuation inhaler Inhale 2 Puffs as instructed twice daily. Cholecalciferol, Vitamin D3, 25 mcg (1,000 unit) cap Take 1,000 Units by mouth once daily. guaiFENesin (MUCINEX) 1,200 mg Ta12 Take by mouth. lansoprazole (PREVACID) 30 mg capsule Take 30 mg by mouth once daily. montelukast (SINGULAIR) 10 mg tablet Take 10 mg by mouth daily at bedtime. tamsulosin (FLOMAX) 0.4 mg Take 0.4 mg by mouth once daily. tiotropium bromide (SPIRIVA RESPIMAT) 1.25 mcg/actuation mist Inhale 2 Puffs as instructed once daily. traZODone (DESYREL) 100 mg tablet Take 100 mg by mouth as needed. At bedtime as needed azelastine-fluticasone 137-50 mcg/spray spry Use in each nostril. ipratropium bromide (ATROVENT) 42 mcg (0.06 %) nasal spray Use 2 Sprays in the nose four times daily. clopidogrel (PLAVIX) 75 mg tablet Take 75 mg by mouth once daily. rosuvastatin (CRESTOR) 5 mg tablet Take 0.5 tablets by mouth every 48 hours. irbesartan (AVAPRO) 150 mg tablet Take 1 tablet by mouth once daily. allopurinol (ZYLOPRIM) 300 mg tablet Take 1 tablet by mouth once daily. For gout. albuterol HFA (PROAIR HFA) 90 mcg/actuation inhaler Inhale 2 Puffs as instructed. loratadine (CLARITIN) 10 mg tablet Take 1 tablet by mouth once daily. aspirin, enteric coated (ECOTRIN LOW STRENGTH) 81 mg EC tablet Take 1 tablet by mouth once daily. CPAP Initiate AutoPAP @ 10/20 cm of water with humidification. Mask (per patient preference) optional chin strap (if indicated) , filters, tubing, humidifier and lifetime supplies. Dx. CARMELLA 327.23 THERAPEUTIC MULTIVITAMIN TAB Take one(1) tablet daily. Social History Tobacco Use Smoking status: Never Smokeless tobacco: Never Tobacco comments: Parents smoked in childhood home. Substance Use Topics Alcohol use: Yes Alcohol/week: 30.0 standard drinks of alcohol Drug use: No Family History Problem Relation Age of Onset Cancer Father bone marrow PAST SURGICAL HISTORY Procedure Laterality Date COLONOSCOPY FLX DX W/COLLJ SPEC WHEN PFRMD 08/14/2006 Colonoscopy COLONOSCOPY FLX DX W/COLLJ SPEC WHEN PFRMD 06/24/2017 Colonoscopy ESOPHAGOGASTRODUODENOSCOPY TRANSORAL DIAGNOSTIC 06/24/2017 EGD EXC/DSTRJ LINGUAL TONSIL ANY METHOD SPX IR URETERAL STENT 05/2015 followed by removal PAST SURGICAL HISTORY OF neck surgery disc PAST SURGICAL HISTORY OF microdiscectomy x 2 lumber L5 and L6 PAST SURGICAL HISTORY OF [address] BARDALES PAST SURGICAL HISTORY OF eye stents for (more content not included)... [facility] 05-18-2023 Procedure note Associated Ord er(s): OXIMETRY WITH AMBULATION RESPIRATORY THERAPY OXIMETRY WITH AMBULATION Oximetry with Ambulation Test for This Encounter O2 Device O2 Adapter NC O2 Flow SpO2% HR Activity Ft Walked (ft) Time (min) Avg Speed (MPH) R/A 95 89 Resting R/A 94 104 Walking, usual pace 570 3 2.16 R/A 94 134 Walking, fastest pace 785 3 2.97 General Information Pulse Oximetry Site Total Time Spent O2 Supply Carrier Walking Assistance/Device R Index Finger 30 -- None NAME: BIPIN Whitley PATIENT NAME: Puneet Ashley DATE: May 18, 2023 TIME: 11:24 AM Comment: documented in this encounter [facility] 05-18-2023 History of Present illness Narrative PULM FUNCTION SMARTBLOCK: Provider: Barbara Martins PA-C Assisting Tech: Shey Bolanos RPFT Oximetry - Ambulation: 1 documented in this encounter [facility] 05-18-2023 History of Present illness Narrative Patient: Puneet Ashley PCP: Art Ureña MD CC: routine follow up HPI: Puneet Ashley 72 year old morbidly obese male, never smoker with PMH significant for severe persistent asthma diagnosed by positive DARILE, GERD, gout, glaucoma, CARMELLA on CPAP, HTN, HLD, coronary artery disease s/p stent. Was last seen by Dr. Laurent 02/12 following a recent hospital admission for Haemophilus influenza pneumonia. Patient with a history of recurrent pneumonia and patient with a low IgG level. He was referred to Dr. Pena for an immunology evaluation. After further testing, which was normal, patient was instructed to have Prevnar 20 and repeat pneumococcal IgG titers 1 month post vaccination. Current therapy consists of Advair, Spiriva, and Tezspire every 4 weeks. He remains on daily Azithromycin as well as Singulair and Claritin. Today, patient states he is doing well. Tolerating Azithromycin without GI distress or change in hearing. No significant cough or sputum production. Patient does not note wheezing currently. Denies SOB. Is more limited by leg weakness/pain. Follows with [facility] and placed on Atrovent nasal spray. He also has deviated septum. Consistently wears CPAP with all sleep. Is currently not wearing supplemental oxygen. DME: [facility]. PAST MEDICAL HISTORY Diagnosis Date Asthma 11/21/201411/2014: DARIEL +, 20% drop in FEV1 at 25 mg/mL. Bronchiectasis (HCC) Mild Chronic sinusitis 11/21/201411/2014 CT sinus. DDD (degenerative disc disease), cervical DDD (degenerative disc disease), lumbar GERD (gastroesophageal reflux disease) Glaucoma (increased eye pressure) Bilateral Dr. Hdz Gout Hard of hearing hearing aids, Dr. Carlson Hemorrhage of gastrointestinal tract, unspecified Hypertension Mixed hyperlipidemia Hyperlipidemia Nephrolithiasis seen Dr Lanier Obstructive sleep apnea using CPAP Prediabetes Umbilical hernia Allergies: Lisinopril Cough Simvastatin Other: See Comments Comment:elevated liver enzyme,elevated muscle enzyme tezepelumab-ekko (TEZSPIRE) 210 mg/1.91 mL (110 mg/mL) syringe Inject 1.91 mL subcutaneously every 4 weeks. azithromycin (ZITHROMAX) 250 mg tablet Take one daily. Do not take with Levaquin fluticasone-salmeterol HFA (ADVAIR HFA) 230-21 mcg/actuation inhaler Inhale 2 Puffs as instructed twice daily. Cholecalciferol, Vitamin D3, 25 mcg (1,000 unit) cap Take 1,000 Units by mouth once daily. guaiFENesin (MUCINEX) 1,200 mg Ta12 Take by mouth. lansoprazole (PREVACID) 30 mg capsule Take 30 mg by mouth once daily. montelukast (SINGULAIR) 10 mg tablet Take 10 mg by mouth daily at bedtime. tamsulosin (FLOMAX) 0.4 mg Take 0.4 mg by mouth once daily. tiotropium bromide (SPIRIVA RESPIMAT) 1.25 mcg/actuation mist Inhale 2 Puffs as instructed once daily. traZODone (DESYREL) 100 mg tablet Take 100 mg by mouth as needed. At bedtime as needed azelastine-fluticasone 137-50 mcg/spray spry Use in each nostril. ipratropium bromide (ATROVENT) 42 mcg (0.06 %) nasal spray Use 2 Sprays in the nose four times daily. clopidogrel (PLAVIX) 75 mg tablet Take 75 mg by mouth once daily. rosuvastatin (CRESTOR) 5 mg tablet Take 0.5 tablets by mouth every 48 hours. irbesartan (AVAPRO) 150 mg tablet Take 1 tablet by mouth once daily. allopurinol (ZYLOPRIM) 300 mg tablet Take 1 tablet by mouth once daily. For gout. albuterol HFA (PROAIR HFA) 90 mcg/actuation inhaler Inhale 2 Puffs as instructed. loratadine (CLARITIN) 10 mg tablet Take 1 tablet by mouth once daily. aspirin, enteric coated (ECOTRIN LOW STRENGTH) 81 mg EC tablet Take 1 tablet by mouth once daily. CPAP Initiate AutoPAP @ 10/20 cm of water with humidification. Mask (per patient preference) optional chin strap (if indicated) , filters, tubing, humidifier and lifetime supplies. Dx. CARMELLA 327.23 THERAPEUTIC MULTIVITAMIN TAB Take one(1) tablet daily. Social History Tobacco Use Smoking status: Never Smokeless tobacco: Never Tobacco comments: Parents smoked in childhood home. Substance Use Topics Alcohol use: Yes Alcohol/week: 30.0 standard drinks of alcohol Drug use: No Family History Problem Relation Age of Onset Cancer Father bone marrow PAST SURGICAL HISTORY Procedure Laterality Date COLONOSCOPY FLX DX W/COLLJ SPEC WHEN PFRMD 08/14/2006 Colonoscopy COLONOSCOPY FLX DX W/COLLJ SPEC WHEN PFRMD 06/24/2017 Colonoscopy ESOPHAGOGASTRODUODENOSCOPY TRANSORAL DIAGNOSTIC 06/24/2017 EGD EXC/DSTRJ LINGUAL TONSIL ANY METHOD SPX IR URETERAL STENT 05/2015 followed by removal PAST SURGICAL HISTORY OF neck surgery disc PAST SURGICAL HISTORY OF microdiscectomy x 2 lumber L5 and L6 PAST SURGICAL HISTORY OF [address] BARDALES PAST SURGICAL HISTORY OF eye stents for glaucoma PAST SURGICAL HISTORY OF UPPP PAST SURGICAL HISTORY OF Deviated septum REMV CATARACT EXTRACAP,INSERT LENS I reviewed the past medical history, family history, social history and surgical history with changes noted above and updated in EMR. IMMUNIZATIONS Prevnar 20 - 05/06/2023 Prevnar - 2016 Pneumovax - 2020 Influenza - planning today at [facility]- - most recent 05/2022 ROS: CONSTITUTIONAL: No fevers, chills, nightsweats, unintended weight loss HEENT: Some post nasal drip on Atrovent per ENT. No blurry vision or change in vision. CARDIOVASCULAR: No chest pain, dyspnea, palpitations PULM: See HPI GI: No dysphagia/odynophagia, problematic reflux INTEGUMENTARY: No new skin changes or rashes PHYSICAL EXAMINATION: BP 142/80 Pulse 63 Resp 16 Wt 127 kg (280 lb) SpO2 95% BMI 41.05 kg/m Gen: No acute distress. Cooperative with examination. HEENT: Normocephalic. Sclera, conjunctiva clear. Oral hygeine and dentition good. No thrush. Resp: No stridor, accessory respiratory muscle use, supra-sternal or intercostal retractions. No wheezes, crackles. CV: Regular rythm. Heart tones normal. Radial pulses normal. MSK: No kyphoscoliosis. Ext: Warm and well perfused. No clubbing, cyanosis, edema. Skin: No rash, ecchymoses. Neuro: Mental status normal. Affect normal. No tremor. DATA: Oximetry, 05/18/2023 Oximetry with Ambulation Test for This Encounter O2 Device O2 Adapter NC O2 Flow SpO2% HR Activity Ft Walked (ft) Time (min) Avg Speed (MPH) R/A 95 89 Resting R/A 94 104 Walking, usual pace 570 3 2.16 R/A 94 134 Walking, fastest pace 785 3 2.97 PFT, 01/2023 Spirometry is normal. Exhaled nitric oxide (Demond), 01/16/2023: 19 (normal < 20). CT chest, 02/02/2023 IMPRESSION: There is mild peribronchial cuffing in the right lower lobe and to a lesser degree right upper lobe which may be on the basis of infectious or inflammatory bronchiolitis. Reactive airway disease would also be a differential consideration. No evidence of bronchiectasis. Nonspecific groundglass/reticulonodular opacities in the lingula and inferior right upper lobe which may be infectious or inflammatory etiology. Comparison: CT chest 10/16/2014 RESULT: Limitations: None. Lines, tubes, and devices: None. Lung parenchyma and airways: Central airways are patent. There is mild peribronchial cuffing in the right lower lobe segmental/subsegmental bronchi and to a lesser degree in the lingula and right upper lobe. Nonspecific groundglass/reticulonodular opacity in the lingula (14:26) and additionally in the inferior right upper lobe (14:161).. Minimal bibasilar subsegmental atelectasis. Pleural space: No pleural effusion. No pleural thickening. Lower neck, lymph nodes, and mediastinum: The imaged thyroid gland is normal. No lymphadenopathy in the supraclavicular, axillary, mediastinal, or hilar regions. Heart, pericardium, and thoracic vessels: The heart is enlarged. Coronary artery and aortic calcifications. No pericardial effusion. The great vessels are normal in caliber. Bones and soft tissues: Partially imaged cervical fusion hardware. Flowing anterior osteophytosis throughout the thoracic spine suggesting diffuse hepatic skeletal hyperostosis. No suspicious osseous lesions. Multiple chronic right rib fractures Upper abdomen: No abnormality in the imaged upper abdomen. Laxity of anterior abdominal wall is redemonstrated. ASSESSMENT/PLAN: 1. Severe persistent asthma without complication - ICD9: 493.90, ICD10: J45.50 (primary diagnosis) Continue current therapy with Advair and Spiriva. Rinse mouth after each use to help prevent oral thrush. Continue Singulair nightly. Albuterol HFA inhaler, 2 inhalations 10-15 minutes prior to activities associated with shortness of breath, and as needed for rescue relief of shortness of breath or wheezing, up to 4 times daily. Based on oximetry today, patient does not require supplemental oxygen. - OXIMETRY WITH AMBULATION - OXIMETRY - NOCTURNAL 2. Bronchiectasis without complication (HCC) - ICD9: 494.0, ICD10: J47.9 Azithromycin daily. Tolerating well. Patient had one positive sputum for MAC, but additional sputum negative. - OXIMETRY - NOCTURNAL 3. Morbid obesity (HCC) - ICD9: 278.01, ICD10: E66.01 Weight loss advised. 4. H/O recurrent pneumonia - ICD9: V12.61, ICD10: Z87.01 Low IgG level. Referred to Dr. Pena for further evaluation. 5. CARMELLA (obstructive sleep apnea) - ICD9: 327.23, ICD10: G47.33 Continue CPAP with all sleep. Will check nocturnal oximetry on CPAP. - OXIMETRY - NOCTURNAL Portions of this documentation were copied and pasted from previous office visit notes in order to provide a cohesive continuity of the history. The note has been reviewed and edited and updated as necessary. Barbara Martins PA-C documented in this encounter [facility] 05-06-2023 Nurse Note [facility] Prevnar [address] Pena's order. Patient aware to complete lab work in 1 month. Message sent to Dr. Pena to place order. documented in this encounter [facility] 04-30-2023 Miscellaneous Notes a Please advise patient. documented in this encounter [facility] 04-22-2023 Miscellaneous Notes Order placed Elena Pena MD documented in this encounter [facility] 03-31-2023 Note HNO ID: [id number] Author: Elena Pena MD Service: ? Author Type: Physician Type: Progress Notes Filed: 04/02/2023 2:13 PM Note Text: This is a consultation requested by Shabana Laurent MD for an allergy and immunology evaluation. My final recommendations will be communicated back to the requesting healthcare provider(s) by way of shared medical record or via [place] mail. Puneet Ashley is a 72 year old male with a history of severe persistent asthma, recurrent pneumonia and mild bronchiectasis who presents for further evaluation of hypogammaglobulinemia On February 12, 2023, IgG was below normal at 565. IgA, IgM and IgE were within normal limits. On August 15, 2022, IgG was 620. In 2020, IgG was 703. Patient received the Pneumovax in 2020. Last documented tetanus diphtheria vaccine was in 2009. He has taken multiple courses of systemic steroids and antibiotics for respiratory illnesses including pneumonia since Nov, 2021. Beginning in Nov, 2021, he was treated with more than 1 course of prednisone and azithromycin for respiratory symptoms. In January,, he presented to the emergency room, was diagnosed with pneumonia and treated with azithromycin and prednisone. In March,, sputum culture was positive for H. Influenzae and he was treated with Levaquin and prednisone. In May,, patient was treated with an additional course of Levaquin and prednisone. In June,, [place] out of state, he was hospitalized for pneumonia and treated with 2 antibiotics and prednisone. In January,, he was hospitalized for pneumonia and treated with Solu-Medrol, azithromycin and ceftriaxone. He took azithromycin daily for about 1 month. 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 Final results of most recent sputum culture are pending but are negative thus far. Per patient, he has taken 8-9 courses of systemic steroids for respiratory symptoms in the past year. Other than systemic steroids, patient denies treatment with other immunosuppressive medications such as Rituxan or methotrexate previously. He has a prior history of sinusitis but denies sinus infections within the past several years. 1 prior dental abscess. Denies cutaneous infections including cellulitis, shingles and abscesses. Denies gastrointestinal infections. There is no family history of immunodeficiency. Asthma symptoms include cough and shortness of breath. Nocturnal awakenings due to respiratory symptoms 1-2 nights per week. Medications include Advair 230-21, Singulair and Spiriva 1.25. He was on Nucala for 2 years without relief. He began treatment with monthly injections of Teszpire in December, with possibly some improvement. He has nasal congestion and postnasal drip. Skin test completed by [facility] in 2020, he had 1+ results to multiple aeroallergens. He takes Mucinex, loratadine, Dymista 1 spray to each nostril twice daily and Atrovent nasal spray 0.06% 1 spray to each nostril at bedtime with improvement in his symptoms. Nasal septoplasty has been completed. Patient reports he was recently diagnosed with a mild cows milk allergy based on laboratory results. The testing was completed to evaluate skin rash. Patient has never experienced a severe immediate reaction to a food such as urticaria, angioedema, respiratory distress, lightheadedness or loss of consciousness. REVIEW OF SYSTEMS: SINUSITIS: The patient does not suffer from frequent sinopulmonary infections. ASTHMA: See [place] ECZEMA: The patient has no history of eczema. URTICARIA:The patient does not have a history of urticaria and/or angioedema. GERD: See [place] INSECT STING: The patient does not have a history of systemic reaction to insect sting. FOOD ALLERGY:See [place]. LATEX: The patient does not have a history of adverse reaction to latex. All other review of systems negative except for those listed above. PAST MEDICAL HISTORY Diagnosis Date Asthma 11/21/201411/2014: DARIEL +, 20% drop in FEV1 at 25 mg/mL. Bronchiectasis (HCC) Mild Chronic sinusitis 11/21/201411/2014 CT sinus. DDD (degenerative disc disease), cervical DDD (degenerative disc disease), lumbar GERD (gastroesophageal reflux disease) Glaucoma (increased eye pressure) Bilateral Dr. Hdz Gout Hard of hearing hearing aids, Dr. Carlson Hemorrhage of gastrointestinal tract, unspecified Hypertension Mixed hyperlipidemia Hyperlipidemia Nephrolithiasis seen Dr Lanier Obstructive sleep apnea using CPAP Prediabetes Umbilical hernia MEDICATIONS: azithromycin (ZITHROMAX) 250 mg tablet Take one daily. Do not take with Levaquin predniSONE (DELTASONE) 10 mg tablet Take 4 daily for three days, then 3 daily for three days, then 2 daily for three days, then one daily for three days. azithromycin (ZITHROMAX) 250 mg tablet Take one tablet daily fluticasone-salmeterol HFA (ADVAIR (more content not included)... [facility] 03-31-2023 Nurse Note Patient is here to establish care. He has low IgG levels and asthma. Multiple episodes of pneumonia, very susceptible to infections. Also complains of asthma. Mariya Perez March 31, 2023 2:06 PM documented in this encounter [facility] 03-31-2023 History of Present illness Narrative This is a consultation requested by Shabana Laurent MD for an allergy and immunology evaluation. My final recommendations will be communicated back to the requesting healthcare provider(s) by way of shared medical record or via [place]. mail. Puneet Ashley is a 72 year old male with a history of severe persistent asthma, recurrent pneumonia and mild bronchiectasis who presents for further evaluation of hypogammaglobulinemia On February 12, 2023, IgG was below normal at 565. IgA, IgM and IgE were within normal limits. On August 15, 2022, IgG was 620. In 2020, IgG was 703. Patient received the Pneumovax in 2020. Last documented tetanus diphtheria vaccine was in 2009. He has taken multiple courses of systemic steroids and antibiotics for respiratory illnesses including pneumonia since Nov, 2021. Beginning in Nov, 2021, he was treated with more than 1 course of prednisone and azithromycin for respiratory symptoms. In January,, he presented to the emergency room, was diagnosed with pneumonia and treated with azithromycin and prednisone. In March,, sputum culture was positive for H. Influenzae and he was treated with Levaquin and prednisone. In May,, patient was treated with an additional course of Levaquin and prednisone. In June,, while out of state, he was hospitalized for pneumonia and treated with 2 antibiotics and prednisone. In January,, he was hospitalized for pneumonia and treated with Solu-Medrol, azithromycin and ceftriaxone. He took azithromycin daily for about 1 month. 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 Final results of most recent sputum culture are pending but are negative thus far. Per patient, he has taken 8-9 courses of systemic steroids for respiratory symptoms in the past year. Other than systemic steroids, patient denies treatment with other immunosuppressive medications such as Rituxan or methotrexate previously. He has a prior history of sinusitis but denies sinus infections within the past several years. 1 prior dental abscess. Denies cutaneous infections including cellulitis, shingles and abscesses. Denies gastrointestinal infections. There is no family history of immunodeficiency. Asthma symptoms include cough and shortness of breath. Nocturnal awakenings due to respiratory symptoms 1-2 nights per week. Medications include Advair 230-21, Singulair and Spiriva 1.25. He was on Nucala for 2 years without relief. He began treatment with monthly injections of Teszpire in December, with possibly some improvement. He has nasal congestion and postnasal drip. Skin test completed by [facility] in 2020, he had 1+ results to multiple aeroallergens. He takes Mucinex, loratadine, Dymista 1 spray to each nostril twice daily and Atrovent nasal spray 0.06% 1 spray to each nostril at bedtime with improvement in his symptoms. Nasal septoplasty has been completed. Patient reports he was recently diagnosed with a mild cows milk allergy based on laboratory results. The testing was completed to evaluate skin rash. Patient has never experienced a severe immediate reaction to a food such as urticaria, angioedema, respiratory distress, lightheadedness or loss of consciousness. REVIEW OF SYSTEMS: SINUSITIS: The patient does not suffer from frequent sinopulmonary infections. ASTHMA: See [place] EC[place]EMA: The patient has no history of eczema. URTICARIA:The patient does not have a history of urticaria and/or angioedema. GERD: See [place] INSECT STING: The patient does not have a history of systemic reaction to insect sting. FOOD ALLERGY:See [place]. LATEX: The patient does not have a history of adverse reaction to latex. All other review of systems negative except for those listed above. PAST MEDICAL HISTORY Diagnosis Date Asthma 11/21/201411/2014: DARIEL +, 20% drop in FEV1 at 25 mg/mL. Bronchiectasis (HCC) Mild Chronic sinusitis 11/21/201411/2014 CT sinus. DDD (degenerative disc disease), cervical DDD (degenerative disc disease), lumbar GERD (gastroesophageal reflux disease) Glaucoma (increased eye pressure) Bilateral Dr. Hdz Gout Hard of hearing hearing aids, Dr. Carlson Hemorrhage of gastrointestinal tract, unspecified Hypertension Mixed hyperlipidemia Hyperlipidemia Nephrolithiasis seen Dr Lanier Obstructive sleep apnea using CPAP Prediabetes Umbilical hernia MEDICATIONS: azithromycin (ZITHROMAX) 250 mg tablet Take one daily. Do not take with Levaquin predniSONE (DELTASONE) 10 mg tablet Take 4 daily for three days, then 3 daily for three days, then 2 daily for three days, then one daily for three days. azithromycin (ZITHROMAX) 250 mg tablet Take one tablet daily fluticasone-salmeterol HFA (ADVAIR HFA) 230-21 mcg/actuation inhaler Inhale 2 Puffs as instructed twice daily. Cholecalciferol, Vitamin D3, 25 mcg (1,000 unit) cap Take 1,000 Units by mouth once daily. guaiFENesin (MUCINEX) 1,200 mg Ta12 Take by mouth. lansoprazole (PREVACID) 30 mg capsule Take 30 mg by mouth once daily. montelukast (SINGULAIR) 10 mg tablet Take 10 mg by mouth daily at bedtime. tamsulosin (FLOMAX) 0.4 mg Take 0.4 mg by mouth once daily. tiotropium bromide (SPIRIVA RESPIMAT) 1.25 mcg/actuation mist Inhale 2 Puffs as instructed once daily. traZODone (DESYREL) 100 mg tablet Take 100 mg by mouth as needed. At bedtime as needed azelastine-fluticasone 137-50 mcg/spray spry Use in each nostril. ipratropium bromide (ATROVENT) 42 mcg (0.06 %) nasal spray Use 2 Sprays in the nose four times daily. clopidogrel (PLAVIX) 75 mg tablet Take 75 mg by mouth once daily. rosuvastatin (CRESTOR) 5 mg tablet Take 0.5 tablets by mouth every 48 hours. omeprazole (PRILOSEC) 20 mg capsule Take 2 capsules by mouth once daily. 1/2 hr before meal. (Patient not taking: Reported on 01/16/2023) irbesartan (AVAPRO) 150 mg tablet Take 1 tablet by mouth once daily. allopurinol (ZYLOPRIM) 300 mg tablet Take 1 tablet by mouth once daily. For gout. latanoprost (XALATAN) 0.005 % ophthalmic solution Use 1 Drop in both eyes daily at bedtime. albuterol HFA (PROAIR HFA) 90 mcg/actuation inhaler Inhale 2 Puffs as instructed. loratadine (CLARITIN) 10 mg tablet Take 1 tablet by mouth once daily. Vardenafil HCl (LEVITRA) 20 mg tablet 1 tab prn as needed (Patient not taking: Reported on 01/16/2023) aspirin, enteric coated (ECOTRIN LOW STRENGTH) 81 mg EC tablet Take 1 tablet by mouth once daily. CPAP Initiate AutoPAP @ 10/20 cm of water with humidification. Mask (per patient preference) optional chin strap (if indicated) , filters, tubing, humidifier and lifetime supplies. Dx. CAREMLLA 327.23 sodium chloride (MICHAEL 128) 5 % ophthalmic ointment Use 1 application in both eyes once daily. (Patient not taking: Reported on 01/16/2023) THERAPEUTIC MULTIVITAMIN TAB Take one(1) tablet daily. ALLERGIES: Allergies As of Date: 03/31/2023 Allergen Noted Reaction LISINOPRIL 03/08/2013 Cough SIMVASTATIN 05/25/2012 Other: See Comments Fully Assessed 02/12/2023 PAST SURGICAL HISTORY Procedure Laterality Date COLONOSCOPY FLX DX W/COLLJ SPEC WHEN PFRMD 08/14/2006 Colonoscopy COLONOSCOPY FLX DX W/COLLJ SPEC WHEN PFRMD 06/24/2017 Colonoscopy ESOPHAGOGASTRODUODENOSCOPY TRANSORAL DIAGNOSTIC 06/24/2017 EGD EXC/DSTRJ LINGUAL TONSIL ANY METHOD SPX IR URETERAL STENT 05/2015 followed by removal PAST SURGICAL HISTORY OF neck surgery disc PAST SURGICAL HISTORY OF microdiscectomy x 2 lumber L5 and L6 PAST SURGICAL HISTORY OF [address] BARDALES PAST SURGICAL HISTORY OF eye stents for glaucoma PAST SURGICAL HISTORY OF UPPP PAST SURGICAL HISTORY OF Deviated septum REMV CATARACT EXTRACAP,INSERT LENS FAMILY HISTORY: Allergic rhinitis:no. Asthma: no. Eczema: no. Cystic fibrosis: no. Immunodeficiency: no. 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 ENVIRONMENTAL HISTORY: Lives in a house Age of home: 6 years Heating: gas Woodburning fireplace in the home: no Air conditioning: Central air Basement: Damp basement, Carpeted, Furnished [place]: [id number] carpeting, Hardwood floor Dust mite controls: Dust mite controls are already in place. Pets in the home: There are no pets in the home Outdoor animals: There are no outdoor animals Tobacco smoke: No exposure in the home. Physical Exam: GENERAL APPEARANCE:Well appearing, alert, in no acute distress, well-hydrated, well nourished. Obese HEENT: NCAT. EYES: conjunctiva and sclera normal. EARS: External ears normal. Canals clear. TM's normal. NOSE/SINUS: Nares normal. Septum midline. Mucosa normal. No drainage or sinus tenderness. THROAT: no erythema NECK:neck supple, no adenopathy HEART:RRR with normal S1 and S2 ,no murmurs, no gallops, no rubs LUNGS: clear to auscultation bilaterally, no wheezes, rales or rhonchi ABDOMEN:soft, nontender, nondistended, without organomegaly or palpable masses EXTREMITIES:Extremities normal, No deformities, No skin discoloration, and No edema SKIN: Skin color, texture, turgor normal. No rashes or lesions. 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 Depending on clinical course and additional test results, prophylactic antibiotics or IgG replacement therapy are treatment options that may be considered. Discussed IVIG and subcutaneous IgG replacement with the patient. Potential risks including anaphylaxis, headache, malaise, kidney failure, infection and thrombosis were discussed with the patient. 2.) Severe persistent asthma: Continue Advair 230-21, Singulair 10 mg and Spiriva 1.25 mg. Continue Tezspire every 4 weeks. Continue albuterol 2 puffs every 4 hours as needed. Continue to follow-up with pulmonary medicine. 3.) Chronic rhinitis: Allergen inhalants panel and allergen Dp will be obtained to evaluate further for possible inhalant allergies. Continue Dymista, Atrovent nasal spray, loratadine and Mucinex. 4.) Rash and nonspecific skin eruption: Reassured patient that his symptoms are not consistent with IgE-mediated food allergies. 5.) Discussed medication dosage, usage, side effects, and goals of treatment in detail. 6.) Patient will be contacted regarding laboratory results and further recommendations regarding follow-up will be obtained at that time.- patient will return sooner should new symptoms or problems arise. Elena Pena MD documented in this encounter [facility] 03-23-2023 Miscellaneous Notes Spoke with patient and gave antihistamine avoidance instructions. Will defer to allergy for specifics. Emma Traylor LPN Pt calling with questions concerning medications for an upcoming appt with [employer]. He needs clarification on which ones he is able to stop prior to appointment. Pt is asking for a return call.Eneida Metz RN documented in this encounter [facility] 02-12-2023 Note HNO ID: [id number] Author: Shabana Laurent MD Service: ? Author Type: Physician Type: Progress Notes Filed: 02/12/2023 11:22 AM Note Text: . Respiratory [place] Note Patient name: Puneet Ashley PCP: Art Ureña MD CC: follow-up asthma and recent PNA HPI: Puneet Ashley 72 year old male morbidly male, never smoker with PMH significant for asthma diagnosed by positive DARIEL, GERD, gout, glaucoma, CARMELLA on CPAP, HTN, HLD, coronary artery disease s/p stent recently seen for follow-up. He had initially seen Dr. Westbrook in 2014 but opted to follow-up with the [facility], returning to our clinic last month for management of his asthma and history of recurrent pneumonia. Recently admitted to [facility] with Haemophilus influenza pneumonia. Current therapy for asthma is maximal with high-dose Advair discus, Spiriva Respimat, albuterol, Tezspire. At office visit recommended starting daily azithromycin, aggressive pulmonary hygiene, consider changing inhaled therapy to high-dose Trelegy Ellipta, quantitative immunoglobulins with subsets after he completed his steroid course, repeat chest CT, sputum for AFB. Chest CT shows bronchiolitis, mild bronchiectasis without mucus plugging, linear atelectasis. He has been using his mucus clearance techniques and currently not producing much sputum. No wheezing or chest pain. Still coughs with activity. AFB sputum culture negative to date. Since starting the daily azithromycin, he has felt the best he has in a year. Already requires hearing aids so must be cautious about potential worsening of his hearing. DATA: EKG WCH: Corrected QT 424 msec Labs: Culture No Acid Fast Bacilli isolated after 7 days Smear Result No acid fast bacilli seen by flurochrome stain Imaging / Diagnostic Studies: DATE OF EXAM: Feb 02 2023 8:47AM [facility] 0541 - CT CHEST IVCON / PROCEDURE REASON: Pneumonia of right lower lobe due to Haemophilus influenzae (HCC) Comparison: CT chest 10/16/2014 RESULT: Limitations: None. Lines, tubes, and devices: None. Lung parenchyma and airways: Central airways are patent. There is mild peribronchial cuffing in the right lower lobe segmental/subsegmental bronchi and to a lesser degree in the lingula and right upper lobe. Nonspecific groundglass/reticulonodular opacity in the lingula (14:26) and additionally in the inferior right upper lobe (14:161).. Minimal bibasilar subsegmental atelectasis. Pleural space: No pleural effusion. No pleural thickening. Lower neck, lymph nodes, and mediastinum: The imaged thyroid gland is normal. No lymphadenopathy in the supraclavicular, axillary, mediastinal, or hilar regions. Heart, pericardium, and thoracic vessels: The heart is enlarged. Coronary artery and aortic calcifications. No pericardial effusion. The great vessels are normal in caliber. Bones and soft tissues: Partially imaged cervical fusion hardware. Flowing anterior osteophytosis throughout the thoracic spine suggesting diffuse hepatic skeletal hyperostosis. No suspicious osseous lesions. Multiple chronic right rib fractures Upper abdomen: No abnormality in the imaged upper abdomen. Laxity of anterior abdominal wall is redemonstrated. IMPRESSION: There is mild peribronchial cuffing in the right lower lobe and to a lesser degree right upper lobe which may be on the basis of infectious or inflammatory bronchiolitis. Reactive airway disease would also be a differential consideration. No evidence of bronchiectasis. Nonspecific groundglass/reticulonodular opacities in the lingula and inferior right upper lobe which may be infectious or inflammatory etiology. I personally reviewed the images and disagree with the above. Patchy areas of bronchiolitis and very mild bronchiectasis in lower lobes PAST MEDICAL HISTORY Diagnosis Date Asthma 11/21/201411/2014: DARIEL +, 20% drop in FEV1 at 25 mg/mL. Bronchiectasis (HCC) Mild Chronic sinusitis 11/21/201411/2014 CT sinus. DDD (degenerative disc disease), cervical DDD (degenerative disc disease), lumbar GERD (gastroesophageal reflux disease) Glaucoma (increased eye pressure) Bilateral Dr. Hdz Gout Hard of hearing hearing aids, Dr. Carlson Hemorrhage of gastrointestinal tract, unspecified Hypertension Mixed hyperlipidemia Hyperlipidemia Nephrolithiasis seen Dr Lanier Obstructive sleep apnea using CPAP Prediabetes Umbilical hernia ALLERGIES Allergen Reactions Lisinopril Cough Simvastatin Other: See Comments elevated liver enzyme,elevated muscle enzyme azithromycin (ZITHROMAX) 250 mg tablet Take one daily. Do not take with Levaquin predniSONE (DELTASONE) 10 mg tablet Take 4 daily for three days, then 3 daily for three days, then 2 daily for three days, then one daily for three days. azithromycin (ZITHROMAX) 250 mg tablet Take one tablet daily fluticas (more content not included)... [facility] 02-12-2023 History of Present illness Narrative Images from the original note were not included. . [facility] [place] Note Patient name: Puneet sAhley PCP: Art Ureña MD CC: follow-up asthma and recent PNA HPI: Puneet Ashley 72 year old male morbidly male, never smoker with PMH significant for asthma diagnosed by positive DARIEL, GERD, gout, glaucoma, CARMELLA on CPAP, HTN, HLD, coronary artery disease s/p stent recently seen for follow-up. He had initially seen Dr. Westbrook in 2015 but opted to follow-up with the [facility], returning to our clinic last month for management of his asthma and history of recurrent pneumonia. Recently admitted to [facility] with Haemophilus influenza pneumonia. Current therapy for asthma is maximal with high-dose Advair discus, Spiriva Respimat, albuterol, Tezspire. At office visit recommended starting daily azithromycin, aggressive pulmonary hygiene, consider changing inhaled therapy to high-dose Trelegy Ellipta, quantitative immunoglobulins with subsets after he completed his steroid course, repeat chest CT, sputum for AFB. Chest CT shows bronchiolitis, mild bronchiectasis without mucus plugging, linear atelectasis. He has been using his mucus clearance techniques and currently not producing much sputum. No wheezing or chest pain. Still coughs with activity. AFB sputum culture negative to date. Since starting the daily azithromycin, he has felt the best he has in a year. Already requires hearing aids so must be cautious about potential worsening of his hearing. DATA: EKG WCH: Corrected QT 424 msec Labs: Culture No Acid Fast Bacilli isolated after 7 days Smear Result No acid fast bacilli seen by flurochrome stain Imaging / Diagnostic Studies: DATE OF EXAM: Feb 02 2023 8:47AM [facility] 0541 - CT CHEST IVCON / PROCEDURE REASON: Pneumonia of right lower lobe due to Haemophilus influenzae (HCC) Comparison: CT chest 10/16/2014 RESULT: Limitations: None. Lines, tubes, and devices: None. Lung parenchyma and airways: Central airways are patent. There is mild peribronchial cuffing in the right lower lobe segmental/subsegmental bronchi and to a lesser degree in the lingula and right upper lobe. Nonspecific groundglass/reticulonodular opacity in the lingula (14:26) and additionally in the inferior right upper lobe (14:161).. Minimal bibasilar subsegmental atelectasis. Pleural space: No pleural effusion. No pleural thickening. Lower neck, lymph nodes, and mediastinum: The imaged thyroid gland is normal. No lymphadenopathy in the supraclavicular, axillary, mediastinal, or hilar regions. Heart, pericardium, and thoracic vessels: The heart is enlarged. Coronary artery and aortic calcifications. No pericardial effusion. The great vessels are normal in caliber. Bones and soft tissues: Partially imaged cervical fusion hardware. Flowing anterior osteophytosis throughout the thoracic spine suggesting diffuse hepatic skeletal hyperostosis. No suspicious osseous lesions. Multiple chronic right rib fractures Upper abdomen: No abnormality in the imaged upper abdomen. Laxity of anterior abdominal wall is redemonstrated. IMPRESSION: There is mild peribronchial cuffing in the right lower lobe and to a lesser degree right upper lobe which may be on the basis of infectious or inflammatory bronchiolitis. Reactive airway disease would also be a differential consideration. No evidence of bronchiectasis. Nonspecific groundglass/reticulonodular opacities in the lingula and inferior right upper lobe which may be infectious or inflammatory etiology. I personally reviewed the images and disagree with the above. Patchy areas of bronchiolitis and very mild bronchiectasis in lower lobes PAST MEDICAL HISTORY Diagnosis Date Asthma 11/21/201411/2014: DARIEL +, 20% drop in FEV1 at 25 mg/mL. Bronchiectasis (HCC) Mild Chronic sinusitis 11/21/201411/2014 CT sinus. DDD (degenerative disc disease), cervical DDD (degenerative disc disease), lumbar GERD (gastroesophageal reflux disease) Glaucoma (increased eye pressure) Bilateral Dr. Hdz Gout Hard of hearing hearing aids, Dr. Carlson Hemorrhage of gastrointestinal tract, unspecified Hypertension Mixed hyperlipidemia Hyperlipidemia Nephrolithiasis seen Dr Lanier Obstructive sleep apnea using CPAP Prediabetes Umbilical hernia ALLERGIES Allergen Reactions Lisinopril Cough Simvastatin Other: See Comments elevated liver enzyme,elevated muscle enzyme azithromycin (ZITHROMAX) 250 mg tablet Take one daily. Do not take with Levaquin predniSONE (DELTASONE) 10 mg tablet Take 4 daily for three days, then 3 daily for three days, then 2 daily for three days, then one daily for three days. azithromycin (ZITHROMAX) 250 mg tablet Take one tablet daily fluticasone-salmeterol HFA (ADVAIR HFA) 230-21 mcg/actuation inhaler Inhale 2 Puffs as instructed twice daily. Cholecalciferol, Vitamin D3, 25 mcg (1,000 unit) cap Take 1,000 Units by mouth once daily. guaiFENesin (MUCINEX) 1,200 mg Ta12 Take by mouth. lansoprazole (PREVACID) 30 mg capsule Take 30 mg by mouth once daily. montelukast (SINGULAIR) 10 mg tablet Take 10 mg by mouth daily at bedtime. tamsulosin (FLOMAX) 0.4 mg Take 0.4 mg by mouth once daily. tiotropium bromide (SPIRIVA RESPIMAT) 1.25 mcg/actuation mist Inhale 2 Puffs as instructed once daily. traZODone (DESYREL) 100 mg tablet Take 100 mg by mouth as needed. At bedtime as needed azelastine-fluticasone 137-50 mcg/spray spry Use in each nostril. ipratropium bromide (ATROVENT) 42 mcg (0.06 %) nasal spray Use 2 Sprays in the nose four times daily. clopidogrel (PLAVIX) 75 mg tablet Take 75 mg by mouth once daily. rosuvastatin (CRESTOR) 5 mg tablet Take 0.5 tablets by mouth every 48 hours. omeprazole (PRILOSEC) 20 mg capsule Take 2 capsules by mouth once daily. 1/2 hr before meal. (Patient not taking: Reported on 01/16/2023) irbesartan (AVAPRO) 150 mg tablet Take 1 tablet by mouth once daily. allopurinol (ZYLOPRIM) 300 mg tablet Take 1 tablet by mouth once daily. For gout. latanoprost (XALATAN) 0.005 % ophthalmic solution Use 1 Drop in both eyes daily at bedtime. albuterol HFA (PROAIR HFA) 90 mcg/actuation inhaler Inhale 2 Puffs as instructed. loratadine (CLARITIN) 10 mg tablet Take 1 tablet by mouth once daily. Vardenafil HCl (LEVITRA) 20 mg tablet 1 tab prn as needed (Patient not taking: Reported on 01/16/2023) aspirin, enteric coated (ECOTRIN LOW STRENGTH) 81 mg EC tablet Take 1 tablet by mouth once daily. CPAP Initiate AutoPAP @ 10/20 cm of water with humidification. Mask (per patient preference) optional chin strap (if indicated) , filters, tubing, humidifier and lifetime supplies. Dx. CARMELLA 327.23 sodium chloride (MICHAEL 128) 5 % ophthalmic ointment Use 1 application in both eyes once daily. (Patient not taking: Reported on 01/16/2023) THERAPEUTIC MULTIVITAMIN TAB Take one(1) tablet daily. Social History Tobacco Use Smoking status: Never Smokeless tobacco: Never Tobacco comments: Parents smoked in childhood home. Substance Use Topics Alcohol use: Yes Alcohol/week: 30.0 standard drinks of alcohol Drug use: No PMH, Social history, family history and surgical history reviewed and updated in EMR REVIEW OF SYSTEMS: CONSTITUTIONAL: No fevers, chills, nightsweats, unintended weight loss HEENT: Some nasal congestion with post nasal drip CARDIOVASCULAR: No chest pain, dyspnea, palpitations PULM: See HPI GI: No dysphagia/odynophagia, problematic reflux INTEGUMENTARY: No new skin changes or rashes PHYSICAL EXAMINATION: BP 142/76 Wt 283 lb (128.4kg), pulse 89, RR 17, SpO2 97% on room air General Appearance: Morbidly obese, NAD. Skin: Skin color, texture, turgor normal, no suspicious rashes or lesions. Head: Normocephalic, no masses, lesions, tenderness or abnormalities. Nasal congestion Eyes: Sclera, conjunctiva normal. Oropharynx: No oral lesions or thrush. Neck: No JVD, no masses, no adenopathy. Lungs: Not labored, normal to percussion, no wheezes or crackles. Heart: Regular rate and rhythm, no murmurs gallops. Extremities: Edema Assessment/Plan: 1. Severe persistent asthma, uncomplicated -He will continue on current therapy -Going on vacation so sent in a script for prednisone to use if needed 2. Mild bronchiectasis -To my review, he has mild bronchiectasis -May hold on mucus clearance -Continue azithromycin daily. Caution for worsening hearing loss -AFB final culture pending 3. Morbid obesity -Class 3 obesity, BMI 41 -Weight loss advised as obesity portends poor control of asthma 4. History of recurrent pneumonia -Quantitative immumoglobulins Shabana Laurent MD [facility] [place] documented in this encounter [facility] 02-02-2023 Note HNO ID: [id number] Author: Cadence Damian RT(R) Service: ? Author Type: Can Piler Type: Progress Notes Filed: 02/02/2023 9:46 AM Note Text: Radiology Service Progress Note PATIENT NAME: Puneet Ashley DATE OF SERVICE: February 02, 2023 TIME: 9:46 AM PATIENT IDENTITY VERIFICATION COMPLETED USING TWO (2) IDENTIFIERS: Name and Date of confirmed by patient verbally. FALL SCREENING: Has the patient had 2 falls in the last year or 1 fall with injury or currently using an Ambulatory Assistive Device (Walker, Cane, Wheelchair, Crutches, etc.)? No PATIENT GENDER DATA: Male PATIENT RELEVANT IMPLANT DATA REVIEWED: Yes RADIOLOGY DEPARTMENT: CT; Exam(s) Completed: Chest PERIPHERAL IV DATA: Not applicable SIGNED BY: Cadence Johnson RT(R) February 02, 2023 9:46 AM [facility] 01-16-2023 Note HNO ID: [id number] Author: Shabana Laurent MD Service: ? Author Type: Physician Type: Progress Notes Filed: 01/16/2023 4:26 PM Note Text: . [facility] [place] Note Patient name: Puneet Ashley PCP: Art Ureña MD Referring Physician: Self CC: asthma/recurrent PNA HPI: Puneet Ashley 72 year old morbidly obese male never smoker with PMH significant for asthma diagnosed by positive DARIEL, GERD, gout, glaucoma, CARMELLA on CPAP, HLD, HTN, CAD s/p stent (Aug 2022) last seen by Dr. Westbrook in 2014. Started on ICS with as needed albuterol. He did not follow up with Dr. Westbrook, opting to follow with [facility]. No prior history of asthma as a child although he did have significant hayfever. 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 noted wheezing. Denied significant OBRIEN/SOB. He was started on Advair and Spiriva in 2019. He had extensive allergy assessment due to chronic sinus disease with postnasal drip and peripheral eosinophilia (3 to 4%). RAST and skin testing negative. Aggressive treatment for rhinitis with antihistamine, nasal spray and saline lavage. He has had previous deviated septum surgery. No history of nasal polyposis. Anticholinergic nasal spray seems to help the most with his postnasal drip. He had been on Nucala injections for approximately 2 years with resolution of his eosinophilia but due to recurrent bronchitis and pneumonia requiring antibiotics and steroids, biologic therapy recently changed from Nucala to Tezspire. Current regimen consists of Tezspire, oral steroid, Advair HFA 231 mg, Spiriva Respimat, Singulair, Dymista nasal, albuterol nebs. Has history of recurrent bronchitis usually 1 bout per year but current problem dates back to October of last year. He had 3 courses of azithromycin and oral steroids between October and January and was eventually admitted to [facility] in January [address] of the chest showed significant left lower lobe infiltrate. He continued to have wheezing, chest congestion, severe coughing and sputum production. Sputum culture obtained in Mar pertinent for Haemophilus influenzae beta-lactam positive. Antibiotic therapy changed to Levaquin which improved his symptoms. He was ill again around gi time and took another course of Levaquin. Hospitalized in [place] over [place] with bilateral pneumonia. Modified barium swallow testing negative for aspiration or reflux. Just recently hospitalized at [facility] last month. Symptoms at that time consisted of severe coughing, unable to lie flat due to coughing, shortness of breath, hypoxemia, sputum described as oyster colored, chest x-ray right lower lobe pneumonia and sputum positive for Haemophilus influenzae now beta-lactamase negative. IgG levels low normal. Currently on Levaquin, 40 mg of prednisone and discharged with oxygen. Past history also notable for COVID infection 09/2022 but did not require hospitalization. DME: [facility] [place] DATA: SERVICE DATE: 01/16/2023 SERVICE TIME: 8:42 AM Oral Exhaled Nitric Oxide measurement: 19.0 (ppb) PFT: Review of pulmonary function tests are normal Labs: No recent eosinophilia IgG 620 mg/dL, 703 mg/dL Imaging / Diagnostic Studies: ECG QTc 424 msec I personally reviewed the images of his chest x-ray from [facility] last admission which shows right lower lobe infiltrate CTA of the chest 01/25/2022: Extensive left lower lobe infiltrate consistent with pneumonia. No bronchiectasis PAST MEDICAL HISTORY Diagnosis Date Asthma 11/21/201411/2014: DARIEL +, 20% drop in FEV1 at 25 mg/mL. Chronic sinusitis 11/21/201411/2014 CT sinus. DDD (degenerative disc disease), cervical DDD (degenerative disc disease), lumbar GERD (gastroesophageal reflux disease) Glaucoma (increased eye pressure) Bilateral Dr. Hdz Gout Hard of hearing hearing aids, Dr. Carlson Hemorrhage of gastrointestinal tract, unspecified Hypertension Mixed hyperlipidemia Hyperlipidemia Nephrolithiasis seen Dr Lanier Obstructive sleep apnea using CPAP Prediabetes Umbilical hernia ALLERGIES Allergen Reactions Lisinopril Cough Simvastatin Other: See Comments elevated liver enzyme,elevated muscle enzyme fluticasone-salmeterol HFA (ADVAIR HFA) 230-21 mcg/actuation inhaler Inhale 2 Puffs as instructed twice daily. Cholecalciferol, Vitamin D3, 25 mcg (1,000 unit) cap Take 1,000 Units by mouth once daily. guaiFENesin (MUCINEX) 1,200 mg Ta12 Take by mouth. lansoprazole (PREVACID) 30 mg capsule Take 30 mg by mouth once daily. montelukast (SINGULAIR) 10 mg tablet Take 10 mg by mouth daily at bedtime. tamsulosin (FLOMAX) 0.4 mg Take 0.4 mg by mouth once daily. tiotropium bromide (SPIRIVA RESPIMAT) 1.25 mcg/actuation mist Inhale 2 Puffs as instructed once daily. (more content not included)... [facility] 01-16-2023 Note HNO ID: [id number] Author: BIPIN Whitley Service: ? Author Type: Respiratory Therapist Type: Procedures Filed: 01/16/2023 8:42 AM Note Text: RESPIRATORY THERAPY ORAL EXHALED NITRIC OXIDE SERVICE DATE: 01/16/2023 SERVICE TIME: 8:42 AM Oral Exhaled Nitric Oxide measurement: 19.0 (ppb) Normal: Adult 5-20 ppb, pediatric (<12 years) 5-15 ppb High Normal / Increased: Adult 20-35 ppb, pediatric (<12 years) 15-25 ppb Moderately raised exhaled Nitric Oxide may indicate underlying inflammation, but note that: Cold and influenza can raise exhaled Nitric Oxide and some patients have higher baseline exhaled Nitric Oxide levels than others. High: Adult >35 ppb, pediatric (<12 years) >25 ppb Indicative of ongoing eosinophilic inflammation. Symptomatic patient likely to respond to steroids. Possible causes (if already on steroids): Poor compliance, recent allergen exposure, steroid dose inadequate, and steroid resistance. Note that not all patients with high exhaled nitric oxide levels display symptoms. Oral Exhaled Nitric Oxide measurement (Previous Encounters) Test Date Oral Exhaled Nitric Oxide (ppb) 01/16/2023 19.0 NAME: BIPIN Whitley PATIENT NAME: Puneet Ashley DATE: January 16, 2023 TIME: 8:42 AM [facility] 01-16-2023 Note HNO ID: [id number] Author: BIPIN Whitley Service: ? Author Type: Respiratory Therapist Type: Progress Notes Filed: 01/16/2023 8:42 AM Note Text: PULM FUNCTION SMARTBLOCK: Provider: Shabana Laurent MD Assisting Tech: Shey Bolanos RPFT Spirometry: 1 Exhaled Nitric Oxide: 1 [facility] 01-16-2023 Nurse Note Intake information documented in the prior visit with BIPIN Whitley today. documented in this encounter [facility] 01-16-2023 History of Present illness Narrative Images from the original note were not included. . [facility] [place] Note Patient name: Puneet Ashley PCP: Art Ureña MD Referring Physician: Self CC: asthma/recurrent PNA HPI: Puneet Ashley 72 year old morbidly obese male never smoker with PMH significant for asthma diagnosed by positive DARIEL, GERD, gout, glaucoma, CARMELLA on CPAP, HLD, HTN, CAD s/p stent (Aug 2022) last seen by Dr. Westbrook in 2014. Started on ICS with as needed albuterol. He did not follow up with Dr. Westbrook, opting to follow with [facility]. No prior history of asthma as a child although he did have significant hayfever. 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 noted wheezing. Denied significant OBRIEN/SOB. He was started on Advair and Spiriva in 2019. He had extensive allergy assessment due to chronic sinus disease with postnasal drip and peripheral eosinophilia (3 to 4%). RAST and skin testing negative. Aggressive treatment for rhinitis with antihistamine, nasal spray and saline lavage. He has had previous deviated septum surgery. No history of nasal polyposis. Anticholinergic nasal spray seems to help the most with his postnasal drip. He had been on Nucala injections for approximately 2 years with resolution of his eosinophilia but due to recurrent bronchitis and pneumonia requiring antibiotics and steroids, biologic therapy recently changed from Nucala to Tezspire. Current regimen consists of Tezspire, oral steroid, Advair HFA 231 mg, Spiriva Respimat, Singulair, Dymista nasal, albuterol nebs. Has history of recurrent bronchitis usually 1 bout per year but current problem dates back to October of last year. He had 3 courses of azithromycin and oral steroids between October and January and was eventually admitted to [facility] in January [address] of the chest showed significant left lower lobe infiltrate. He continued to have wheezing, chest congestion, severe coughing and sputum production. Sputum culture obtained in Mar pertinent for Haemophilus influenzae beta-lactam positive. Antibiotic therapy changed to Levaquin which improved his symptoms. He was ill again around time and took another course of Levaquin. Hospitalized in [facility] with bilateral pneumonia. Modified barium swallow testing negative for aspiration or reflux. Just recently hospitalized at [facility] last month. Symptoms at that time consisted of severe coughing, unable to lie flat due to coughing, shortness of breath, hypoxemia, sputum described as oyster colored, chest x-ray right lower lobe pneumonia and sputum positive for Haemophilus influenzae now beta-lactamase negative. IgG levels low normal. Currently on Levaquin, 40 mg of prednisone and discharged with oxygen. Past history also notable for COVID infection 09/2022 but did not require hospitalization. DME: [facility] [place] DATA: SERVICE DATE: 01/16/2023 SERVICE TIME: 8:42 AM Oral Exhaled Nitric Oxide measurement: 19.0 (ppb) PFT: Review of pulmonary function tests are normal Labs: No recent eosinophilia IgG 620 mg/dL, 703 mg/dL Imaging / Diagnostic Studies: ECG QTc 424 msec I personally reviewed the images of his chest x-ray from [facility] last admission which shows right lower lobe infiltrate CTA of the chest 01/25/2022: Extensive left lower lobe infiltrate consistent with pneumonia. No bronchiectasis PAST MEDICAL HISTORY Diagnosis Date Asthma 11/21/201411/2014: DARIEL +, 20% drop in FEV1 at 25 mg/mL. Chronic sinusitis 11/21/201411/2014 CT sinus. DDD (degenerative disc disease), cervical DDD (degenerative disc disease), lumbar GERD (gastroesophageal reflux disease) Glaucoma (increased eye pressure) Bilateral Dr. Hdz Gout Hard of hearing hearing aids, Dr. Carlson Hemorrhage of gastrointestinal tract, unspecified Hypertension Mixed hyperlipidemia Hyperlipidemia Nephrolithiasis seen Dr Lanier Obstructive sleep apnea using CPAP Prediabetes Umbilical hernia ALLERGIES Allergen Reactions Lisinopril Cough Simvastatin Other: See Comments elevated liver enzyme,elevated muscle enzyme fluticasone-salmeterol HFA (ADVAIR HFA) 230-21 mcg/actuation inhaler Inhale 2 Puffs as instructed twice daily. Cholecalciferol, Vitamin D3, 25 mcg (1,000 unit) cap Take 1,000 Units by mouth once daily. guaiFENesin (MUCINEX) 1,200 mg Ta12 Take by mouth. lansoprazole (PREVACID) 30 mg capsule Take 30 mg by mouth once daily. montelukast (SINGULAIR) 10 mg tablet Take 10 mg by mouth daily at bedtime. tamsulosin (FLOMAX) 0.4 mg Take 0.4 mg by mouth once daily. tiotropium bromide (SPIRIVA RESPIMAT) 1.25 mcg/actuation mist Inhale 2 Puffs as instructed once daily. traZODone (DESYREL) 100 mg tablet Take 100 mg by mouth as needed. At bedtime as needed azelastine-fluticasone 137-50 mcg/spray spry Use in each nostril. ipratropium bromide (ATROVENT) 42 mcg (0.06 %) nasal spray Use 2 Sprays in the nose four times daily. clopidogrel (PLAVIX) 75 mg tablet Take 75 mg by mouth once daily. rosuvastatin (CRESTOR) 5 mg tablet Take 0.5 tablets by mouth every 48 hours. irbesartan (AVAPRO) 150 mg tablet Take 1 tablet by mouth once daily. allopurinol (ZYLOPRIM) 300 mg tablet Take 1 tablet by mouth once daily. For gout. albuterol HFA (PROAIR HFA) 90 mcg/actuation inhaler Inhale 2 Puffs as instructed. loratadine (CLARITIN) 10 mg tablet Take 1 tablet by mouth once daily. aspirin, enteric coated (ECOTRIN LOW STRENGTH) 81 mg EC tablet Take 1 tablet by mouth once daily. THERAPEUTIC MULTIVITAMIN TAB Take one(1) tablet daily. azithromycin (ZITHROMAX) 250 mg tablet Take one daily. Do not take with Levaquin omeprazole (PRILOSEC) 20 mg capsule Take 2 capsules by mouth once daily. 1/2 hr before meal. (Patient not taking: Reported on 01/16/2023) latanoprost (XALATAN) 0.005 % ophthalmic solution Use 1 Drop in both eyes daily at bedtime. zolpidem (AMBIEN) 10 mg tab Take 1 tablet by mouth at bedtime as needed for up to 15 days. (Patient not taking: Reported on 01/16/2023) fluticasone (FLOVENT HFA) 110 mcg/actuation inhaler USE 2 INHALATIONS BY MOUTH DIRECTED 2 TIMES DAILY VIA SPACER THEN RINSE & GARGLE MOUTH WITH WATER (Patient not taking: Reported on 01/16/2023) fluticasone (FLONASE) 50 mcg/actuation nasal spray Use 2 Sprays in each nostril once daily. (Patient not taking: Reported on 01/16/2023) lidocaine viscous (LIDOCAINE VISCOUS) 2 % solution Gargle and spit 10-15mLs every 3-4 hours as need for throat discomfort. ASCORBIC ACID (VITAMIN C ORAL) Take by mouth once daily. (Patient not taking: Reported on 01/16/2023) Vardenafil HCl (LEVITRA) 20 mg tablet 1 tab prn as needed (Patient not taking: Reported on 01/16/2023) CPAP Initiate AutoPAP @ 10/20 cm of water with humidification. Mask (per patient preference) optional chin strap (if indicated) , filters, tubing, humidifier and lifetime supplies. Dx. CARMELAL 327.23 sodium chloride (MICHAEL 128) 5 % ophthalmic ointment Use 1 application in both eyes once daily. (Patient not taking: Reported on 01/16/2023) Social History Tobacco Use Smoking status: Never Smokeless tobacco: Never Tobacco comments: Parents smoked in childhood home. Substance Use Topics Alcohol use: Yes Alcohol/week: 30.0 standard drinks of alcohol Drug use: No [employer] Pets: none FAMILY HISTORY Problem Relation Age of Onset Cancer Father bone marrow PAST SURGICAL HISTORY Procedure Laterality Date COLONOSCOPY FLX DX W/COLLJ SPEC WHEN PFRMD 08/14/2006 Colonoscopy COLONOSCOPY FLX DX W/COLLJ SPEC WHEN PFRMD 06/24/2017 Colonoscopy ESOPHAGOGASTRODUODENOSCOPY TRANSORAL DIAGNOSTIC 06/24/2017 EGD EXC/DSTRJ LINGUAL TONSIL ANY METHOD SPX IR URETERAL STENT 05/2015 followed by removal PAST SURGICAL HISTORY OF neck surgery disc PAST SURGICAL HISTORY OF microdiscectomy x 2 lumber L5 and L6 PAST SURGICAL HISTORY OF [address] BARDALES PAST SURGICAL HISTORY OF eye stents for glaucoma PAST SURGICAL HISTORY OF UPPP PAST SURGICAL HISTORY OF Deviated septum REMV CATARACT EXTRACAP,INSERT LENS PMH, Social history, family history and surgical history reviewed and updated in EMR REVIEW OF SYSTEMS: CONSTITUTIONAL: No fevers, chills, nightsweats, unintended weight loss HEENT: Denies headaches.persistent nasal congestion/sinus symptoms EYES: No diplopia or blurry vision. CARDIOVASCULAR: No chest pain, dyspnea, palpitations, orthopnea, PND. Lower extremity edema PULM: See HPI GI: No dysphagia/odynophagia, problematic reflux. NEURO: No new balance problems, peripheral weakness/paresthesias or numbness of concern. MUSC-SKEL: No joint pain, swelling, or erythema. PSY: No concerns regarding depression, anxiety INTEGUMENTARY: No rashes. Easy bruising PHYSICAL EXAMINATION: Pulse 76 Resp 14 Ht 5' 9.25 (1.76m) Wt 281 lb (127.5kg) SpO2 94% BMI 41.20 kg/(m^2). General Appearance: .Morbidly obese male, NAD Skin: Skin color, texture, turgor normal, no suspicious rashes or lesions.Ecchymoses Head: Normocephalic, no masses, lesions, tenderness or abnormalities. Nasal congestion Eyes: Sclera, conjunctiva normal. Ears: TM normal. Oropharynx: UPPP, no oral lesions/. Neck: No JVD, no masses, no thyromegaly. Lungs: Not labored, normal to percussion diffuse wheezes. Heart: Regular rate and rhythm, no murmurs gallops. Extremities: Edema, no clubbing. Musculoskeletal: No joint deformities or effusions. Neurologic: Alert and oriented, no focal findings. Lymph Nodes: No cervical lymphadenopathy and No supraclavicular lymphadenopathy. Assessment/Plan: 1. Severe persistent asthma, with exacerbation -Currently on maximal therapy -Continue Tezspire, high-dose Advair, Spiriva Respimat, albuterol and complete steroid taper -Consider changing to high-dose Trelegy Ellipta -Started azithromycin 250 mg daily -Continue pulmonary hygiene 2. Recurrent pneumonia -Once patient completes steroid taper will need laboratory testing including IgE quantitative immunoglobulins with subsets -Chest CT to assess for bronchiectasis. If bronchiectasis present would benefit from chest vest/belt -Sputum for AFB -Consider bronchoscopy 3. Morbid obesity -Class III obesity with BMI 41 -Weight loss advised as obesity portends poor control of asthma I spent a total of 70 minutes on the date of the service which included preparing to see the patient, completing clinical documentation, obtaining and/or reviewing separately obtained history, performing a medically appropriate examination, counseling and educating the patient/family/caregiver, ordering medications, tests, or procedures, and independently interpreting results (not separately reported). Activity Duration Pre-charting 1 minute Chart accessed 18 minutes Exam room 1 hour 1 minute Chart accessed 4 minutes Chart accessed 4 minutes Chart accessed 14 minutes Chart accessed 12 minutes Current session 13 minutes Total time: 2 hours 9 minutes Shabana Laurent MD [facility] [place] documented in this encounter [facility] 01-16-2023 Procedure note Associated Ord er(s): NITRIC OXIDE, EXHALED RESPIRATORY THERAPY ORAL EXHALED NITRIC OXIDE SERVICE DATE: 01/16/2023 SERVICE TIME: 8:42 AM Oral Exhaled Nitric Oxide measurement: 19.0 (ppb) Normal: Adult 5-20 ppb, pediatric (<12 years) 5-15 ppb High Normal / Increased: Adult 20-35 ppb, pediatric (<12 years) 15-25 ppb Moderately raised exhaled Nitric Oxide may indicate underlying inflammation, but note that: Cold and influenza can raise exhaled Nitric Oxide and some patients have higher baseline exhaled Nitric Oxide levels than others. High: Adult >35 ppb, pediatric (<12 years) >25 ppb Indicative of ongoing eosinophilic inflammation. Symptomatic patient likely to respond to steroids. Possible causes (if already on steroids): Poor compliance, recent allergen exposure, steroid dose inadequate, and steroid resistance. Note that not all patients with high exhaled nitric oxide levels display symptoms. Oral Exhaled Nitric Oxide measurement (Previous Encounters) Test Date Oral Exhaled Nitric Oxide (ppb) 01/16/2023 19.0 NAME: BIPIN Whitley PATIENT NAME: Puneet Ashley DATE: January 16, 2023 TIME: 8:42 AM documented in this encounter [facility] 01-16-2023 History of Present illness Narrative PULM FUNCTION SMARTBLOCK: Provider: Shabana Laurent MD Assisting Tech: Shey Bolanos RPFT Spirometry: 1 Exhaled Nitric Oxide: 1 documented in this encounter [facility] documented as of this encounter (statuses as of 01/16/2023) [facility] History of Past illness Narrative* Problem Noted Date Diagnosed Date Resolved Date Gout attack 02/13/2013 09/12/2016 Obesity 11/27/2012 06/22/2017 Sleep apnea 10/30/2011 09/12/2016 Overview: Uses CPAP Hyperglycemia 06/16/2011 09/12/2016 Hyperlipemia 05/27/2010 04/13/2017 Blood in stool 09/11/2006 10/30/2011 Anal fissure 08/03/2006 10/30/2011 Nephrolithiasis 06/22/2017 Overview: seen Dr Lanier documented as of this encounter (statuses as of 01/17/2023) [facility] History of Past illness Narrative* Problem Noted Date Diagnosed Date Resolved Date Gout attack 02/13/2013 09/12/2016 Obesity 11/27/2012 06/22/2017 Sleep apnea 10/30/2011 09/12/2016 Overview: Uses CPAP Hyperglycemia 06/16/2011 09/12/2016 Hyperlipemia 05/27/2010 04/13/2017 Blood in stool 09/11/2006 10/30/2011 Anal fissure 08/03/2006 10/30/2011 Nephrolithiasis 06/22/2017 Overview: seen Dr Lanier documented as of this encounter (statuses as of 02/12/2023) [facility] History of Past illness Narrative* Problem Noted Date Diagnosed Date Resolved Date Gout attack 02/13/2013 09/12/2016 Obesity 11/27/2012 06/22/2017 Sleep apnea 10/30/2011 09/12/2016 Overview: Uses CPAP Hyperglycemia 06/16/2011 09/12/2016 Hyperlipemia 05/27/2010 04/13/2017 Blood in stool 09/11/2006 10/30/2011 Anal fissure 08/03/2006 10/30/2011 Nephrolithiasis 06/22/2017 Overview: seen Dr Lanier documented as of this encounter (statuses as of 02/14/2023) [facility] History of Past illness Narrative* Problem Noted Date Diagnosed Date Resolved Date Gout attack 02/13/2013 09/12/2016 Obesity 11/27/2012 06/22/2017 Sleep apnea 10/30/2011 09/12/2016 Overview: Uses CPAP Hyperglycemia 06/16/2011 09/12/2016 Hyperlipemia 05/27/2010 04/13/2017 Blood in stool 09/11/2006 10/30/2011 Anal fissure 08/03/2006 10/30/2011 Nephrolithiasis 06/22/2017 Overview: seen Dr Lanier documented as of this encounter (statuses as of 02/14/2023) [facility] History of Past illness Narrative* Problem Noted Date Diagnosed Date Resolved Date Gout attack 02/13/2013 09/12/2016 Obesity 11/27/2012 06/22/2017 Sleep apnea 10/30/2011 09/12/2016 Overview: Uses CPAP Hyperglycemia 06/16/2011 09/12/2016 Hyperlipemia 05/27/2010 04/13/2017 Blood in stool 09/11/2006 10/30/2011 Anal fissure 08/03/2006 10/30/2011 Nephrolithiasis 06/22/2017 Overview: seen Dr Lanier documented as of this encounter (statuses as of 02/14/2023) [facility] History of Past illness Narrative* Problem Noted Date Diagnosed Date Resolved Date Gout attack 02/13/2013 09/12/2016 Obesity 11/27/2012 06/22/2017 Sleep apnea 10/30/2011 09/12/2016 Overview: Uses CPAP Hyperglycemia 06/16/2011 09/12/2016 Hyperlipemia 05/27/2010 04/13/2017 Blood in stool 09/11/2006 10/30/2011 Anal fissure 08/03/2006 10/30/2011 Nephrolithiasis 06/22/2017 Overview: seen Dr Lanier documented as of this encounter (statuses as of 02/19/2023) [facility] History of Past illness Narrative* Problem Noted Date Diagnosed Date Resolved Date Gout attack 02/13/2013 09/12/2016 Obesity 11/27/2012 06/22/2017 Sleep apnea 10/30/2011 09/12/2016 Overview: Uses CPAP Hyperglycemia 06/16/2011 09/12/2016 Hyperlipemia 05/27/2010 04/13/2017 Blood in stool 09/11/2006 10/30/2011 Anal fissure 08/03/2006 10/30/2011 Nephrolithiasis 06/22/2017 Overview: seen Dr Lanier documented as of this encounter (statuses as of 02/26/2023) [facility] History of Past illness Narrative* Problem Noted Date Diagnosed Date Resolved Date Gout attack 02/13/2013 09/12/2016 Obesity 11/27/2012 06/22/2017 Sleep apnea 10/30/2011 09/12/2016 Overview: Uses CPAP Hyperglycemia 06/16/2011 09/12/2016 Hyperlipemia 05/27/2010 04/13/2017 Blood in stool 09/11/2006 10/30/2011 Anal fissure 08/03/2006 10/30/2011 Nephrolithiasis 06/22/2017 Overview: seen Dr Lanier documented as of this encounter (statuses as of 03/23/2023) [facility] History of Past illness Narrative* Problem Noted Date Diagnosed Date Resolved Date Gout attack 02/13/2013 09/12/2016 Obesity 11/27/2012 06/22/2017 Sleep apnea 10/30/2011 09/12/2016 Overview: Uses CPAP Hyperglycemia 06/16/2011 09/12/2016 Hyperlipemia 05/27/2010 04/13/2017 Blood in stool 09/11/2006 10/30/2011 Anal fissure 08/03/2006 10/30/2011 Nephrolithiasis 06/22/2017 Overview: seen Dr Lanier documented as of this encounter (statuses as of 04/03/2023) [facility] History of Past illness Narrative* Problem Noted Date Diagnosed Date Resolved Date Gout attack 02/13/2013 09/12/2016 Obesity 11/27/2012 06/22/2017 Sleep apnea 10/30/2011 09/12/2016 Overview: Uses CPAP Hyperglycemia 06/16/2011 09/12/2016 Hyperlipemia 05/27/2010 04/13/2017 Blood in stool 09/11/2006 10/30/2011 Anal fissure 08/03/2006 10/30/2011 Nephrolithiasis 06/22/2017 Overview: seen Dr Lanier documented as of this encounter (statuses as of 04/22/2023) [facility] History of Past illness Narrative* Problem Noted Date Diagnosed Date Resolved Date Gout attack 02/13/2013 09/12/2016 Obesity 11/27/2012 06/22/2017 Sleep apnea 10/30/2011 09/12/2016 Overview: Uses CPAP Hyperglycemia 06/16/2011 09/12/2016 Hyperlipemia 05/27/2010 04/13/2017 Blood in stool 09/11/2006 10/30/2011 Anal fissure 08/03/2006 10/30/2011 Nephrolithiasis 06/22/2017 Overview: seen Dr Lanier documented as of this encounter (statuses as of 04/22/2023) [facility] History of Past illness Narrative* Problem Noted Date Diagnosed Date Resolved Date Gout attack 02/13/2013 09/12/2016 Obesity 11/27/2012 06/22/2017 Sleep apnea 10/30/2011 09/12/2016 Overview: Uses CPAP Hyperglycemia 06/16/2011 09/12/2016 Hyperlipemia 05/27/2010 04/13/2017 Blood in stool 09/11/2006 10/30/2011 Anal fissure 08/03/2006 10/30/2011 Nephrolithiasis 06/22/2017 Overview: seen Dr Lanier documented as of this encounter (statuses as of 04/30/2023) [facility] History of Past illness Narrative* Problem Noted Date Diagnosed Date Resolved Date Gout attack 02/13/2013 09/12/2016 Obesity 11/27/2012 06/22/2017 Sleep apnea 10/30/2011 09/12/2016 Overview: Uses CPAP Hyperglycemia 06/16/2011 09/12/2016 Hyperlipemia 05/27/2010 04/13/2017 Blood in stool 09/11/2006 10/30/2011 Anal fissure 08/03/2006 10/30/2011 Nephrolithiasis 06/22/2017 Overview: seen Dr Lanier documented as of this encounter (statuses as of 04/30/2023) [facility] History of Past illness Narrative* Problem Noted Date Diagnosed Date Resolved Date Gout attack 02/13/2013 09/12/2016 Obesity 11/27/2012 06/22/2017 Sleep apnea 10/30/2011 09/12/2016 Overview: Uses CPAP Hyperglycemia 06/16/2011 09/12/2016 Hyperlipemia 05/27/2010 04/13/2017 Blood in stool 09/11/2006 10/30/2011 Anal fissure 08/03/2006 10/30/2011 Nephrolithiasis 06/22/2017 Overview: seen Dr Lanier documented as of this encounter (statuses as of 05/06/2023) [facility] History of Past illness Narrative* Problem Noted Date Diagnosed Date Resolved Date Gout attack 02/13/2013 09/12/2016 Obesity 11/27/2012 06/22/2017 Sleep apnea 10/30/2011 09/12/2016 Overview: Uses CPAP Hyperglycemia 06/16/2011 09/12/2016 Hyperlipemia 05/27/2010 04/13/2017 Blood in stool 09/11/2006 10/30/2011 Anal fissure 08/03/2006 10/30/2011 Nephrolithiasis 06/22/2017 Overview: seen Dr Lanier documented as of this encounter (statuses as of 05/18/2023) [facility] History of Past illness Narrative* Problem Noted Date Diagnosed Date Resolved Date Gout attack 02/13/2013 09/12/2016 Obesity 11/27/2012 06/22/2017 Sleep apnea 10/30/2011 09/12/2016 Overview: Uses CPAP Hyperglycemia 06/16/2011 09/12/2016 Hyperlipemia 05/27/2010 04/13/2017 Blood in stool 09/11/2006 10/30/2011 Anal fissure 08/03/2006 10/30/2011 Nephrolithiasis 06/22/2017 Overview: seen Dr Lanier documented as of this encounter (statuses as of 05/19/2023) [facility] History of Past [facility] Narrative* Problem Noted Date Diagnosed Date Resolved Date Gout attack 02/13/2013 09/12/2016 Obesity 11/27/2012 06/22/2017 Sleep apnea 10/30/2011 09/12/2016 Overview: Uses CPAP Hyperglycemia 06/16/2011 09/12/2016 Hyperlipemia 05/27/2010 04/13/2017 Blood in stool 09/11/2006 10/30/2011 Anal fissure 08/03/2006 10/30/2011 Nephrolithiasis 06/22/2017 Overview: seen Dr Lanier documented as of this encounter (statuses as of 05/19/2023) [facility] History of Past illness Narrative* Problem Noted Date Diagnosed Date Resolved Date Gout attack 02/13/2013 09/12/2016 Obesity 11/27/2012 06/22/2017 Sleep apnea 10/30/2011 09/12/2016 Overview: Uses CPAP Hyperglycemia 06/16/2011 09/12/2016 Hyperlipemia 05/27/2010 04/13/2017 Blood in stool 09/11/2006 10/30/2011 Anal fissure 08/03/2006 10/30/2011 Nephrolithiasis 06/22/2017 Overview: seen Dr Lanier documented as of this encounter (statuses as of 05/27/2023) [facility] History of Past illness Narrative* Problem Noted Date Diagnosed Date Resolved Date Gout attack 02/13/2013 09/12/2016 Obesity 11/27/2012 06/22/2017 Sleep apnea 10/30/2011 09/12/2016 Overview: Uses CPAP Hyperglycemia 06/16/2011 09/12/2016 Hyperlipemia 05/27/2010 04/13/2017 Blood in stool 09/11/2006 10/30/2011 Anal fissure 08/03/2006 10/30/2011 Nephrolithiasis 06/22/2017 Overview: seen Dr Lanier documented as of this encounter (statuses as of 05/27/2023) [facility] History of Past illness Narrative* Problem Noted Date Diagnosed Date Resolved Date Gout attack 02/13/2013 09/12/2016 Obesity 11/27/2012 06/22/2017 Sleep apnea 10/30/2011 09/12/2016 Overview: Uses CPAP Hyperglycemia 06/16/2011 09/12/2016 Hyperlipemia 05/27/2010 04/13/2017 Blood in stool 09/11/2006 10/30/2011 Anal fissure 08/03/2006 10/30/2011 Nephrolithiasis 06/22/2017 Overview: seen Dr Lanier documented as of this encounter (statuses as of 05/27/2023) [facility] History of Past illness Narrative* Problem Noted Date Diagnosed Date Resolved Date Gout attack 02/13/2013 09/12/2016 Obesity 11/27/2012 06/22/2017 Sleep apnea 10/30/2011 09/12/2016 Overview: Uses CPAP Hyperglycemia 06/16/2011 09/12/2016 Hyperlipemia 05/27/2010 04/13/2017 Blood in stool 09/11/2006 10/30/2011 Anal fissure 08/03/2006 10/30/2011 Nephrolithiasis 06/22/2017 Overview: seen Dr Lanier documented as of this encounter (statuses as of 06/19/2023) [facility] note* Diagnosis Asthma, unspecified asthma severity, unspecified whether complicated, unspecified whether persistent documented in this encounter [facility] note* Diagnosis Asthma, unspecified asthma severity, unspecified whether complicated, unspecified whether persistent documented in this encounter [facility] note* Diagnosis Severe persistent asthma with acute exacerbation- Primary Unspecified asthma, with exacerbation Recurrent pneumonia Pneumonia, organism unspecified Morbid obesity (HCC) Morbid obesity documented in this encounter [facility] note* Diagnosis Severe persistent asthma without complication- Primary Bronchiectasis without complication (HCC) Bronchiectasis without acute exacerbation Morbid obesity (HCC) Morbid obesity H/O recurrent pneumonia Personal history of pneumonia (recurrent) [facility] [place] [facility] Diagnosis 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 [facility] [place] [facility]* Diagnosis Hypogammaglobulinemia (HCC)- Primary Hypogammaglobulinaemia, unspecified [facility] [place] [facility] Diagnosis Bronchiectasis without complication (HCC)- Primary Bronchiectasis without acute exacerbation documented in this encounter [facility] note* Diagnosis Hypogammaglobulinemia (HCC)- Primary Hypogammaglobulinaemia, unspecified Severe persistent asthma without complication Chronic rhinitis documented in this encounter [facility] note* Diagnosis Hypogammaglobulinemia (HCC)- Primary Hypogammaglobulinaemia, unspecified [facility] Diagnosis Hypogammaglobulinemia (HCC)- Primary Hypogammaglobulinaemia, unspecified [facility] Diagnosis Need for vaccination- Primary Need for prophylactic vaccination and inoculation against unspecified single disease documented in this encounter [facility] note* Diagnosis Severe persistent asthma without complication documented in this encounter [facility] note* Diagnosis Severe persistent asthma without complication- Primary Bronchiectasis without complication (HCC) Bronchiectasis without acute exacerbation Morbid obesity (HCC) Morbid obesity H/O recurrent pneumonia Personal history of pneumonia (recurrent) CARMELLA (obstructive sleep apnea) Obstructive sleep apnea (adult) (pediatric) documented in this encounter [facility] note* Diagnosis Severe persistent asthma without complication- Primary documented in this encounter [facility] note* Diagnosis Severe persistent asthma without complication- Primary documented in this encounter [facility] for referral (narrative)* Outpatient Procedure (Routine) - Closed Specialty Diagnoses / Procedures Referred By Matthew melendez Referred To [facility] Diagnoses Severe persistent asthma without complication Procedures OXIMETRY WITH AMBULATION NONINVASIVE EAR/PULSE OXIMETRY MULTIPLE DETER Barbara Martins PA-C [address] [place] [address] [facility] [place] [address] [place] [address] Referral ID Status Reason Start Date Expiration Date V isits Requested Visits Authorized [id number] Closed Auto-Generate d Referral 05/18/2023 06/16/2024 1 1 [facility] Summary Purpose Family History No Family History Records FoundNo Family History Records Found Advance Directives No Advanced Directives Records FoundNo Advanced Directives Records Found Reason for Referral Specialty Diagnoses / Procedures Referred By Contreuben t Referred To Contact CT IMAGING Diagnoses Recurrent pneumonia Procedures CT CHEST WO IVCON DIAGNOSTIC COMPUTED TOMOGRAPHY THORAX W/O Shabana Barahona MD [address] [place] [address] Ct Imaging Referral ID Status Reason Start Date Expiration Date Visits Requested Visits Authorized [id number] Authorized Auto-Generat ed Referral 01/16/2023 02/15/2024 1 1 Specialty Diagnoses / Procedures Referred By Contac t Referred To Contact [facility] Diagnoses Asthma, unspecified asthma severity, unspecified whether complicated, unspecified whether persistent Procedures NITRIC OXIDE, EXHALED NITRIC OXIDE GAS DETERMINATION Shabana Laurent MD [address] [place] [address] [address] Referral ID Status Reason Start Date Expiration Date Visits Requested Visits Authorized [id number] Pending Review Auto-Generat ed Referral 01/16/2023 02/15/2024 1 1 Specialty Diagnoses / Procedures Referred By Contac t Referred To Contact [facility] Diagnoses Asthma, unspecified asthma severity, unspecified whether complicated, unspecified whether persistent Procedures SPIROMETRY WITH DILATOR IF OBSTRUCTED BRNCDILAT RSPSE SPMTRY PRE&POST-BRNCDILAT ADMN Shabana Laurent MD [address] [place] [address] [address] Referral ID Status Reason Start Date Expiration Date V isits Requested Visits Authorized [id number] Closed Auto-Generated Referral Patient Cleared - INN Insurance Found 01/16/2023 02/15/2024 1 1 Specialty Diagnoses / Procedures Referred By Qianaac t Referred To Contact Allergy Diagnoses Hypogammaglobulinemia (HCC) Procedures CONSULT TO ALLERGY/IMMUNOLOGY OFFICE/OUTPATIENT [facility] MDM 60-74 MINUTES Sahbana Laurent MD [address] [place] [address] Referral ID Status Reason Start Date Expiration Date Visits Requested Visits Authorized [id number] Authorized PCP Requested Referral 02/13/2023 02/13/2024 1 1 Additional Source Comments (unrecognized sect ion and content) No Status Records FoundNo Status Records Found INFORMATION SOURCE (unrecogn ized section and content) DATE CREATED AUTHOR AUTHOR'S ORGANIZ ATION 06/21/2023 [facility] Source Comments (unrecognize d section and content) In the event this informatio n is protected by the Federal Confidentiality of Alcohol and Drug Abuse Patient Records regulations: The Federal rules restrict any use of the information to criminally investigate or prosecute any alcohol or drug abuse patient.[facility] the event this information is protected by the Federal Confidentiality of Alcohol and Drug Abuse Patient Records regulations: The Federal rules restrict any use of the information to criminally investigate or prosecute any alcohol or drug abuse patient.[facility] HospitalIn the event this information is protected by the Federal Confidentiality of Alcohol and Drug Abuse Patient Records regulations: The Federal rules restrict any use of the information to criminally investigate or prosecute any alcohol or drug abuse patient.[facility] the event this information is protected by the Federal Confidentiality of Alcohol and Drug Abuse Patient Records regulations: The Federal rules restrict any use of the information to criminally investigate or prosecute any alcohol or drug abuse patient.[facility] HospitalIn the event this information is protected by the Federal Confidentiality of Alcohol and Drug Abuse Patient Records regulations: The Federal rules restrict any use of the information to criminally investigate or prosecute any alcohol or drug abuse patient.[facility] HospitalIn the event this information is protected by the Federal Confidentiality of Alcohol and Drug Abuse Patient Records regulations: The Federal rules restrict any use of the information to criminally investigate or prosecute any alcohol or drug abuse patient.[facility] HospitalIn the event this information is protected by the Federal Confidentiality of Alcohol and Drug Abuse Patient Records regulations: The Federal rules restrict any use of the information to criminally investigate or prosecute any alcohol or drug abuse patient.[facility] HospitalIn the event this information is protected by the Federal Confidentiality of Alcohol and Drug Abuse Patient Records regulations: The Federal rules restrict any use of the information to criminally investigate or prosecute any alcohol or drug abuse patient.[facility] HospitalIn the event this information is protected by the Federal Confidentiality of Alcohol and Drug Abuse Patient Records regulations: The Federal rules restrict any use of the information to criminally investigate or prosecute any alcohol or drug abuse patient.[facility] HospitalIn the event this information is protected by the Federal Confidentiality of Alcohol and Drug Abuse Patient Records regulations: The Federal rules restrict any use of the information to criminally investigate or prosecute any alcohol or drug abuse patient.[facility] HospitalIn the event this information is protected by the Federal Confidentiality of Alcohol and Drug Abuse Patient Records regulations: The Federal rules restrict any use of the information to criminally investigate or prosecute any alcohol or drug abuse patient.[facility] HospitalIn the event this information is protected by the Federal Confidentiality of Alcohol and Drug Abuse Patient Records regulations: The Federal rules restrict any use of the information to criminally investigate or prosecute any alcohol or drug abuse patient.[facility] HospitalIn the event this information is protected by the Federal Confidentiality of Alcohol and Drug Abuse Patient Records regulations: The Federal rules restrict any use of the information to criminally investigate or prosecute any alcohol or drug abuse patient.[facility] HospitalIn the event this information is protected by the Federal Confidentiality of Alcohol and Drug Abuse Patient Records regulations: The Federal rules restrict any use of the information to criminally investigate or prosecute any alcohol or drug abuse patient.[facility] HospitalIn the event this information is protected by the Federal Confidentiality of Alcohol and Drug Abuse Patient Records regulations: The Federal rules restrict any use of the information to criminally investigate or prosecute any alcohol or drug abuse patient.[facility] HospitalIn the event this information is protected by the Federal Confidentiality of Alcohol and Drug Abuse Patient Records regulations: The Federal rules restrict any use of the information to criminally investigate or prosecute any alcohol or drug abuse patient.[facility] HospitalIn the event this information is protected by the Federal Confidentiality of Alcohol and Drug Abuse Patient Records regulations: The Federal rules restrict any use of the information to criminally investigate or prosecute any alcohol or drug abuse patient.[facility] HospitalIn the event this information is protected by the Federal Confidentiality of Alcohol and Drug Abuse Patient Records regulations: The Federal rules restrict any use of the information to criminally investigate or prosecute any alcohol or drug abuse patient.[facility] HospitalIn the event this information is protected by the Federal Confidentiality of Alcohol and Drug Abuse Patient Records regulations: The Federal rules restrict any use of the information to criminally investigate or prosecute any alcohol or drug abuse patient.[facility] HospitalIn the event this information is protected by the Federal Confidentiality of Alcohol and Drug Abuse Patient Records regulations: The Federal rules restrict any use of the information to criminally investigate or prosecute any alcohol or drug abuse patient.[facility] HospitalIn the event this information is protected by the Federal Confidentiality of Alcohol and Drug Abuse Patient Records regulations: The Federal rules restrict any use of the information to criminally investigate or prosecute any alcohol or drug abuse patient.[facility] HospitalIn the event this information is protected by the Federal Confidentiality of Alcohol and Drug Abuse Patient Records regulations: The Federal rules restrict any use of the information to criminally investigate or prosecute any alcohol or drug abuse patient.[facility] HospitalIn the event this information is protected by the Federal Confidentiality of Alcohol and Drug Abuse Patient Records regulations: The Federal rules restrict any use of the information to criminally investigate or prosecute any alcohol or drug abuse patient.[facility] HospitalIn the event this information is protected by the Federal Confidentiality of Alcohol and Drug Abuse Patient Records regulations: The Federal rules restrict any use of the information to criminally investigate or prosecute any alcohol or drug abuse patient.[facility] Reason for Visit (unrecogniz ed section and content) Specialty Diagnoses / Procedures Referred By Matthew t Referred To Contact [facility] Diagnoses Asthma, unspecified asthma severity, unspecified whether complicated, unspecified whether persistent Procedures SPIROMETRY WITH DILATOR IF OBSTRUCTED BRNCDILAT RSPSE SPMTRY PRE&POST-BRNCDILAT ADMN Shabana Laurent MD [address] [place] [address] [facility] [place] [address] [place] [id number] Referral ID Status Reason Start Date Expiration Date V isits Requested Visits Authorized [id number] Closed Auto-Generated Referral Patient Cleared - INN Insurance Found 01/16/2023 02/15/2024 1 1 Specialty Diagnoses / Procedures Referred By Matthew melendez Referred To Contact [facility] Diagnoses Asthma, unspecified asthma severity, unspecified whether complicated, unspecified whether persistent Procedures NITRIC OXIDE, EXHALED NITRIC OXIDE GAS DETERMINATION Shabana Laurent MD [address] [place] [address] [place] [address] Referral ID Status Reason Start Date Expiration Date Visits Requested Visits Authorized [id number] Pending Review Auto-Generat ed Referral 01/16/2023 02/15/2024 1 1 Reason Comments New Patient Asthma Reason Comments Established Patient 4 week follow up Reason Comments Medication Problem Reason Comments Consult IgG levels low, asth ma Specialty Diagnoses / Procedures Referred By Contreuben t Referred To Contact Allergy Diagnoses Hypogammaglobulinemia (HCC) Procedures CONSULT TO ALLERGY/IMMUNOLOGY OFFICE/OUTPATIENT NEW HIGH MDM 60-74 MINUTES Shabana Laurent MD [address] [place] [address] Referral ID Status Reason Start Date Expiration Date V isits Requested Visits Authorized [id number] Closed PCP Requested Referral 02/13/2023 02/13/2024 1 1 Reason Comments Injections Specialty Diagnoses / Procedures Referred By Contac t Referred To Contact [facility] Diagnoses Severe persistent asthma without complication Procedures OXIMETRY WITH AMBULATION NONINVASIVE EAR/PULSE OXIMETRY MULTIPLE DETER Barbara Martins, [facility] [address] [place] [address] Respiratory [place] [address] [place] [address] Referral ID Status Reason Start Date Expiration Date V isits Requested Visits Authorized [id number] Closed Auto-Generate d Referral 05/18/2023 06/16/2024 1 1 Reason Comments Established Patient 3 month follow up Reason Comments Results Follow Up Care Teams (unrecognized sec tion and content) 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 Start Date End Date Art Ureña MD [address] [address] PCP - General Internal Medicine 01/16/23 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 Start Date End Date Art Ureña MD [address] [address] PCP - General Internal Medicine 01/16/23 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 Start Date End Date Art Ureña MD [address] [address] PCP - General Internal Medicine 01/16/23 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 Start Date End Date Art Ureña MD [address] [address] PCP - General Internal Medicine 01/16/23 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 Start Date End Date Art Ureña MD [address] [facility] [address] [place] [address] PCP - General Internal Medicine 01/16/23 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 Start Date End Date Art Ureña MD [address] [facility] [address] [place] [address] PCP - General Internal Medicine 01/16/23 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 Start Date End Date Art Ureña MD [address] [address] [place] [address] PCP - General Internal Medicine 01/16/23 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 Start Date End Date Art Ureña MD [address] [address] [place] [address] PCP - General Internal Medicine 01/16/23 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 This clinical summary was aggregated from multiple sources. Caution should be exercised in using it in the provision of clinical care. This summary normalizes information from multiple sources, and as a consequence, information in this document may materially change the coding, format and clinical context of patient data. In addition, data may be omitted in some cases. CLINICAL DECISIONS SHOULD BE BASED ON THE PRIMARY CLINICAL RECORDS. [employer] [facility]. provides no warranty or guarantee of the accuracy or completeness of information in this document.
== END 2023-07-13 14:23 | disposition home or self-care (01) ==
LOC: MEDOUTP 14:24
PROVIDERS: PCP Internal Medicine; Referring Provider Nurse Practitioner Acute Care; Visit Provider Nurse Practitioner Acute Care
DX: J45.50 Severe persistent asthma, uncomplicated (principal)
CPT/HCPCS: 96372; J2356

== ENCOUNTER 2023-08-10 14:26 | Outpatient (CLI) | payer MEDICARE, BC, SELFPAY ==
[2022-12-12 12:57] VITALS: BMI 40.8
[2023-08-10] MEDS: tezepelumab-ekko 210 MG/1.91 ML SYRINGE SC (14:58)
[2023-08-10 15:00] VITALS: BP 140/68; PULSE 80; RESP 18; TEMP 36.3; O2SAT 97; BMI 41.5
== END 2023-08-10 14:27 | disposition home or self-care (01) ==
LOC: MEDOUTP 14:26
PROVIDERS: PCP Internal Medicine; Referring Provider Nurse Practitioner Acute Care; Visit Provider Nurse Practitioner Acute Care
DX: J45.50 Severe persistent asthma, uncomplicated (principal)
CPT/HCPCS: 96372; J2356

== ENCOUNTER 2023-09-09 13:52 | Outpatient (CLI) | payer MEDICARE, BC, SELFPAY ==
[2022-12-12 12:57] VITALS: BMI 40.8
[2023-09-09 13:55] VITALS: BP 125/75; PULSE 73; RESP 16; TEMP 36.1; O2SAT 97
[2023-09-09] MEDS: tezepelumab-ekko 210 MG/1.91 ML SYRINGE SC (13:59)
== END 2023-09-09 13:53 | disposition home or self-care (01) ==
LOC: MEDOUTP 13:52
PROVIDERS: PCP Internal Medicine; Referring Provider Nurse Practitioner Acute Care; Visit Provider Nurse Practitioner Acute Care
DX: J45.50 Severe persistent asthma, uncomplicated (principal)
CPT/HCPCS: 96372; J2356

== ENCOUNTER 2023-10-07 13:38 | Outpatient (CLI) | payer MEDICARE, BC, SELFPAY ==
[2022-12-12 12:57] VITALS: BMI 40.8
[2023-10-07 13:45] VITALS: BP 138/75; PULSE 80; RESP 16; TEMP 36.1; O2SAT 94; BMI 41.5
[2023-10-07] MEDS: tezepelumab-ekko 210 MG/1.91 ML SYRINGE SC (14:09)
== END 2023-10-07 13:39 | disposition home or self-care (01) ==
LOC: MEDOUTP 13:38
PROVIDERS: PCP Internal Medicine; Referring Provider Nurse Practitioner Acute Care; Visit Provider Nurse Practitioner Acute Care
DX: J45.50 Severe persistent asthma, uncomplicated (principal)
CPT/HCPCS: 96372; J2356

== ENCOUNTER → 2023-10-23 | Outpatient (CLI) | payer MEDICARE, BC, SELFPAY ==
[2023-10-21 16:26] VITALS: BMI 40.8
--- NOTE | 2023-10-23 12:37 | VDLE_ITS ---
Reason For Study: LLE SWELLING RIGHT LEFT CFV is compressible, spontaneous, phasic, GSV is normal. competent and demonstrates normal CFV is compressible, spontaneous, phasic, augmentation. competent, and demonstrates normal Procedure augmentation. This is a venous duplex using B-mode, color FV is compressible, spontaneous, phasic, flow and spectral Doppler. competent and demonstrates normal Exam performed in department. augmentation. A preliminary report was called and/or faxed POP V is compressible, spontaneous, phasic, to Dr. Ureña @ 13:10 @ [phone]. competent and demonstrates normal augmentation. T/P Trunk is compressible. PTV is compressible. LT PerV is compressible. NON VASCULAR AREA OF PAIN MEASURING 1.8CM X 0.24CM NOTED ON LEFT LATERAL LEG JUST ABOVE THE KNEE. VL/Venous Duplex US, Unilateral Interpretation Summary Deep veins of the left lower extremity are patent and compressible segmentally. There is no evidence of left lower extremity deep vein thrombosis. Valvular competence appears intac t within the proximal deep venous system on the left . The left great saphenous vein appears patent a nd compressible segmentally. A non-vascular, hypoechoic structure measuring 1.8 cm x 0.24 cm is noted on the distal, left lateral thigh. This may represent a seroma or hematoma. Clinical correlati on is advised. The right common femoral vein is patent and compressible . Ordering Physician: Digna Ureña Referring Physician: Digan Ureña Performed By: Lianne Dale, ELIZABETH, RVT
== END | disposition home or self-care (01) ==
LOC: CVS 12:36
PROVIDERS: PCP Internal Medicine; Referring Provider Internal Medicine; Visit Provider Internal Medicine
DX: R22.42 Localized swelling, mass and lump, left lower limb (principal); M79.89 Other specified soft tissue disorders
CPT/HCPCS: 93971

== ENCOUNTER 2023-11-04 13:51 | Outpatient (CLI) | payer MEDICARE, BC, SELFPAY ==
[2022-12-12 12:57] VITALS: BMI 40.8
[2023-10-21 16:26] VITALS: BMI 40.8
[2023-11-04 14:04] VITALS: BP 132/69; PULSE 71; RESP 16; TEMP 36.4; O2SAT 95; BMI 41.5
[2023-11-04] MEDS: tezepelumab-ekko 210 MG/1.91 ML SYRINGE SC (14:07)
== END 2023-11-04 13:52 | disposition home or self-care (01) ==
LOC: MEDOUTP 13:51
PROVIDERS: PCP Internal Medicine; Referring Provider Nurse Practitioner Acute Care; Visit Provider Nurse Practitioner Acute Care
DX: J45.50 Severe persistent asthma, uncomplicated (principal)
CPT/HCPCS: 96372; J2356

== ENCOUNTER 2023-12-02 13:53 | Outpatient (CLI) | payer MEDICARE, BC, SELFPAY ==
[2023-10-21 16:26] VITALS: BMI 40.8
[2023-12-02 14:01] VITALS: BP 129/68; PULSE 86; RESP 16; TEMP 36.3; O2SAT 95; BMI 41.5
[2023-12-02] MEDS: tezepelumab-ekko 210 MG/1.91 ML SYRINGE SC (14:17)
== END 2023-12-02 23:59 | disposition home or self-care (01) ==
LOC: MEDOUTP 13:53
PROVIDERS: PCP Internal Medicine; Referring Provider Nurse Practitioner Acute Care; Visit Provider Nurse Practitioner Acute Care
DX: J45.50 Severe persistent asthma, uncomplicated (principal)
CPT/HCPCS: 96372; J2356

== ENCOUNTER 2023-12-30 08:41 | Outpatient (CLI) | payer MEDICARE, BC, SELFPAY ==
[2023-10-21 16:26] VITALS: BMI 40.8
[2023-12-30 09:04] VITALS: BP 159/81; PULSE 69; RESP 16; TEMP 36.2; O2SAT 95
[2023-12-30] MEDS: tezepelumab-ekko 210 MG/1.91 ML SYRINGE SC (09:07)
[2023-12-30 10:20] LABS: AST(SGOT) 21 U/L (15-37); Alanine Aminotransfer ALT/SGPT 37 U/L (16-61); Albumin, Serum 3.9 g/dL (3.2-5.0); Alkaline Phosphatase 87 U/L (45-117); Bilirubin, Direct 0.26 mg/dL (0.00-0.30); Cholesterol 119 mg/dL (200); High Density Lipoprotein 52 mg/dL; Protein, Total 6.9 g/dL (6.4-8.2); Triglycerides 76 mg/dL; Very Low Density Lipoprotein 15 mg/dL (5-40)
== END 2023-12-30 23:59 | disposition home or self-care (01) ==
LOC: MEDOUTP 08:41
PROVIDERS: Nurse Practitioner Family; PCP Internal Medicine; Referring Provider Allergy & Immunology; Visit Provider Allergy & Immunology
DX: J45.50 Severe persistent asthma, uncomplicated (principal); E78.2 Mixed hyperlipidemia
CPT/HCPCS: 36415; 80061; 80076; 96372; J2356

== ENCOUNTER 2024-01-27 13:50 | Outpatient (CLI) | payer MEDICARE, BC, SELFPAY ==
[2023-10-21 16:26] VITALS: BMI 40.8
[2024-01-27 14:02] VITALS: BP 157/79; PULSE 85; RESP 16; TEMP 36.6; O2SAT 94; BMI 41.8
[2024-01-27] MEDS: tezepelumab-ekko 210 MG/1.91 ML SYRINGE SC (14:17)
== END 2024-01-27 23:59 | disposition home or self-care (01) ==
LOC: MEDOUTP 13:50
PROVIDERS: PCP Internal Medicine; Referring Provider Allergy & Immunology; Visit Provider Allergy & Immunology
DX: J45.50 Severe persistent asthma, uncomplicated (principal)
CPT/HCPCS: 96372; J2356

== ENCOUNTER 2024-02-08 10:10 | Observation (INO) | payer MEDICARE, BC, SELFPAY ==
[2023-10-21 16:26] VITALS: BMI 40.8
[2024-02-08] VITALS (11 sets, daily range): BP systolic 127–154; BP diastolic 62–87; PULSE 53–81; RESP 16–20; TEMP 36.1–36.8; O2SAT 95–99; BMI 43.0
--- NOTE | 2024-02-08 10:30 | EKG12_ITS ---
Test Reason : BACK/ABD PAIN Blood Pressure : / mmHG Vent. Rate : 054 BPM Atrial Rate : 054 BPM P-R Int : 202 ms QRS Dur : 114 ms QT Int : 440 ms P-R-T Axes : 064 -02 -11 degrees QTc Int : 417 ms Sinus bradycardia Incomplete right bundle branch block Borderline ECG Confirmed by Charlie Hernandez ([id number]), editor book BERKLEY ROSAS ([id number]) on 02/09/2024 2:07:09 PM Referred By: Confirmed By:Charlie Hernandez
--- NOTE | 2024-02-08 10:30 | CT_ITS ---
STUDY: CT ABDOMEN AND PELVIS WITH CONTRAST REASON FOR EXAM: Male, 73 years old. r flank pain, hx of kidney stone. Hypertension. RADIATION DOSAGE (If Supplied By Facility): CTDIvol = ( 19.09 ) mGy, DLP = ( 2565.11 ) mGycm TECHNIQUE: Transaxial images were obtained from the dome of the diaphragm to the symphysis pubis without oral contrast. IV 100mL Isovue-300 was administered. Sagittal and coronal images were reconstructed. Individualized dose optimization techniques were used for this CT. COMPARISON: Comparison is made with prior study May 18, 2016. FINDINGS: Minimal increased linear markings at the lung bases suggestive of scarring. Coronary artery calcification. There is decreased attenuation of the liver consistent with steatosis. Findings suggestive of small gallstones along the dependent portion of the gallbladder lumen. Normal spleen. Normal pancreas. Normal bilateral adrenal glands. Tiny calculi are seen in the mid and lower pole calyces of the right kidney. There is evidence of a 7.4 mm calculus in the proximal portion of the right ureter just distal to the renal pelvis. Nonobstructive calculus in the lower pole calyx of the left kidney measuring 8 mm. Normal visualized stomach. Normal small intestine. Normal colon. The appendix is visualized and appears normal. There is scattered atherosclerotic calcification of the abdominal aorta and its major visceral branches, without a demonstrated aneurysm. Normal inferior vena cava. Normal retroperitoneum. The urinary bladder is empty at the time of the examination. Prosthetic enlargement with indentation of the bladder base. Central prostatic calcification. There is a small umbilical hernia containing fat. 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 There are degenerative changes of the visualized lumbar spine. CT/Abdomen/Pelvis W IV Cont ONLY IMPRESSION: 7.4 mm calculus in the proximal portion of the right ureter causing right hydronephrosis. Bilateral nonobstructive intrarenal calculi. Electronically Signed: Francisco J Szymanski MD at 11:40 EDT ,
[2024-02-08] MEDS: 0.9% Normal Saline (1000mL) 1,000 ML 999 ML IV (10:36)
[2024-02-08 10:41] LABS: Absolute Lymphocyte Count 1.61 X10^3/uL (0.83-4.51); Absolute Neutrophil Count 4.1 X10^3/uL (2.0-7.7); Basophil# 0.03 X10^3/uL; Basophil% 0.5 % (0-1); Eosinophils% 1.5 % (0-5); Hematocrit 43.7 % (40-54); Hemoglobin 13.9 g/dL (13.0-16.5); Lymphocyte # 1.61 X10^3/ul (0.83-4.51); Lymphocyte % 24.6 % (19-41); Mean Corp Hgb Conc 31.8 g/dL (32-36); Mean Corpuscular Hgb 29.7 pg (27.0-32.0); Mean Corpuscular Volume 93.4 fL (80-94); Mean Platelet Vol. 9.9 fl (6.2-12.0); Monocyte# 0.65 X10^3/uL; Monocyte% 9.9 % (0-10); NRBC Flagged by Analyzer 0 % (0-5); Neutrophil # 4.13 X10^3/uL (2.7-7.7); Platelet Count 184 K/mm3 (150-450); RBC Distribution Width CV 14.6 % (11.6-14.6); RBC Distribution Width SD 50.6 fl (35.1-43.9); Red Blood Count 4.68 M/mm3 (4.6-6.2); White Blood Count 6.6 K/mm3 (4.4-11.0)
[2024-02-08 11:02] LABS: ALB/GLOB Ratio 1.2 RATIO (0.9-2.4); AST(SGOT) 20 U/L (15-37); Alanine Aminotransfer ALT/SGPT 33 U/L (16-61); Albumin, Serum 3.6 g/dL (3.2-5.0); Alkaline Phosphatase 87 U/L (45-117); Anion Gap 5 (5-15); BUN 20 mg/dL (7-18); BUN/Creat Ratio 18.9 RATIO (10-20); Calcium,Total 9.2 mg/dL (8.5-10.1); Chloride 108 mmol/L (98-107); Creatinine, Serum 1.06 mg/dL (0.70-1.30); EST Glomerular Filtration Rate 73 mL/min (>60); Est Glom Filt Rate - Afr Amer 88 mL/min (>60); Estimated Creatinine Clearance 87.55 ml/min; Globulin 3.1 g/dL (2.2-4.2); Glucose 120 mg/dL (74-106); Lipase 33 U/L (13-75); Potassium 3.9 mmol/L (3.5-5.1); Protein, Total 6.7 g/dL (6.4-8.2); Sodium Level 144 mmol/L (136-145)
[2024-02-08 11:10] LABS: Bacteria 0 SEEN /hpf (None Seen); Squamous Epithelial Cells - UA 0 SEEN /hpf (0-5)
[2024-02-08 11:15] LABS: Color, Urine Yellow (Yellow); Glucose, Dipstick Normal (Normal); Ketone-Dipstick Negative (Negative); Leukocyte Esterase-Dipstick 25 /ul (Negative); Nitrite-Dipstick Negative (Negative); Occult Blood-Urine 250 /ul (Negative); Protein-Dipstick 30 mg/dl (Negative); Urine Bilirubin Dipstick Negative (Negative); Urine Clarity Clear (Clear); Urine Urobilinogen 1 mg/dl (Normal)
--- NOTE | 2024-02-08 11:16 | EDS_ITS ---
HPI History of Present Illness Chief Complaint: Flank Pain Narrative Narrative: Patient is a 73-year-old male past medical history of asthma, hyperlipidemia, prediabetic, CARMELLA, kidney stones who presented to the emergency department chief complaint of right-sided flank pain. Patient states this morning after he woke up he noted he started to develop a right-sided flank pain. He said that it progressively worsened and he states that he tried to take [id number]-yralagt pain medication however this did not seem to help. He states that the pain doubled him over and notes that he had a history of kidney stones in the past and notes that this feels very similar. He states that his last 1 he did pass on his own did not have any intervention to assist this. Patient denies any falls or trauma to his back [facility] Medical History COVID-19 Multiple ecchymoses of both upper arms Skin tear of right elbow without complication Hemorrhoids Cataracts, bilateral Atherosclerosis of coronary artery of [place] heart without angina pectoris Recurrent pneumonia History of left heart catheterization Essential hypertension Shortness of breath Bilateral lower extremity edema Cataract Asthmatic bronchitis with acute exacerbation URI (upper respiratory infection) Cough Flu vaccine need Chronic cough Hyperlipidemia Asthma Obesity (BMI 30-39.9) Easy bruising Abnormal bruising Hay fever Fatigue Hemorrhoids Lung disease Arthritis Eosinophilia PND (post-nasal drip) Asthma Epithelial inclusion cyst Pre-diabetes Umbilical hernia Morbid obesity GERD (gastroesophageal reflux disease) BPH (benign prostatic hyperplasia) Chronic sinusitis DDD (degenerative disc disease) Recurrent kidney stones Gout Insomnia CARMELLA (obstructive sleep apnea) Home Medications ?Medication ?Instructions ?Recorded ?Last Taken ?Type multivitamin 1 tab PO DAILY 09/19/20 Unknown History PEP device #1 ea 06/12/22 Unknown Rx trazodone 100 mg tablet 100 mg PO QHS PRN insomnia 90 days 07/16/22 Unknown Rx #40 tabs albuterol sulfate 90 mcg/actuation 2 puff inhalation Q4H PRN 07/17/22 Unknown Rx aerosol inhaler (Ventolin HFA) shortness of breath or wheezing #18 grams aspirin 81 mg chewable tablet 81 mg PO BREAKFAST #90 tabs 08/15/22 Unknown Rx albuterol sulfate 2.5 mg/3 mL 2.5 mg (3 mL) inhalation .COMPLEX 03/22/23 Unknown Rx (0.083 %) solution for nebulization Sob &/Or Wheezing #180 mL ipratropium bromide 42 mcg (0.06 1 spray intranasal BID PRN 11/12/22 Unknown History %) nasal spray allergies tezepelumab-ekko 210 mg/1.91 mL 210 mg (1.91 mL) subcut Q4W #1.91 11/28/22 Unknown Rx (110 mg/mL) subcutaneous pen mL injector (Tezspire) loratadine 10 mg tablet 10 mg PO DAILY #90 tabs 02/02/23 Unknown Rx azelastine 205.5 mcg (0.15 %) 1 spray intranasal BID #3 ea 03/16/23 Unknown Rx nasal spray azithromycin 250 mg tablet 250 mg PO DAILY 04/17/23 Unknown History tamsulosin 0.4 mg capsule 0.4 mg PO DAILY #90 caps 07/23/23 Unknown Rx rosuvastatin 5 mg tablet 2.5 mg (1/2 x 5 mg) PO QODAY #90 07/27/23 Unknown Rx tabs fluticasone propionate 230 2 puff inhalation Q12H #3 ea 08/24/23 Unknown Rx mcg-salmeterol 21 mcg/actuation HFA inhaler (Advair HFA) fluticasone propionate 50 2 spray intranasal DAILY #3 ea 09/10/23 Unknown Rx mcg/actuation nasal spray,suspension irbesartan 150 mg tablet 150 mg PO DAILY #90 tabs 09/10/23 Unknown Rx allopurinol 300 mg tablet 300 mg PO DAILY #90 tabs 10/15/23 Unknown Rx lansoprazole 30 mg capsule,delayed 30 mg PO DAILY #90 caps 10/15/23 Unknown Rx release (Prevacid) montelukast 10 mg tablet 10 mg PO QPM #90 tabs 10/15/23 Unknown Rx tiotropium bromide 1.25 2 puff inhalation DAILY #3 ea 10/15/23 Unknown Rx mcg/actuation mist for inhalation (Spiriva Respimat) ibuprofen 600 mg tablet 600 mg PO Q6H PRN fever or pain 02/08/24 Unknown Rx #20 tabs Allergy/AdvReac Type Severity Reaction Status Date / Time lisinopril AdvReac Intermediate cough Verified 01/27/24 14:00 simvastatin AdvReac Intermediate elevated Verified 01/27/24 14:00 liver enzymes Family History Father Cancer Bone Marrow Surgical History History of coronary artery stent placement History of lumbar discectomy History of uvulectomy History of tonsillectomy History of cataract extraction History of coronary artery stent placement (08/14/22) History of cataract extraction History of tonsillectomy History of uvulectomy History of orthopedic surgery S/P correction of deviated nasal septum Social History household members: spouse housing: house Smoking Status: Never smoker alcohol intake: current alcohol intake frequency: a few times a month Alcohol type: beer and wine substance use type: does not use what type of physical activity do you participate in: none ROS ROS ED ROS Narrative Constitutional: Denies fevers, chills, headaches, Suresh, dizziness Eyes: Denies change in vision double vision blurry vision Cardiovascular: Denies chest pain or palpitations Respiratory: Denies coughing wheezing shortness of breath Abdomen: Denies abdominal pain nausea vomit diarrhea : Denies any urinary symptoms Neurological: Denies numbness, weakness, tingling Musculoskeletal: Complains of right-sided back pain as noted above currently ranks this a 3 out of 10 Skin: Denies rashes or lesions EXAM Physical Exam Narrative Exam Narrative: General: Patient lying in bed resting comfortably did not appear to be in acute distress Head: Atraumatic, normocephalic Eyes: PERRL bilaterally, EOMI bilaterally, no conjunctival injection noted Neck: Soft, supple, trachea midline Cardiovascular: Regular rate and rhythm no murmurs gallops rubs noted Respiratory: Clear to auscultation bilaterally no rales rhonchi wheeze noted Abdomen: Soft, nondistended, no tenderness palpation, bowel sounds present x 4 Musculoskeletal: No CVA tenderness noted on exam, no midline tenderness palpation of the thoracolumbar spine Extremities: +5/5 strength noted in the bilateral upper and lower extremities Neurological: Patient follow commands that he is at [facility] year is 2023 Skin: Warm, dry, intact Const Vital Signs: 02/08/24 10:10 02/08/24 12:11 02/08/24 13:25 Temperature 96.9 F L 97.5 F L 97.8 F Temperature Source Temporal Temporal Pulse Rate 53 L 81 65 Respiratory Rate 16 18 18 Blood Pressure 154/84 H 128/62 H 145/73 H Blood Pressure Mean 107 84 97 Pulse Ox 97 99 98 Oxygen Delivery Method Room Air Room Air MDM MDM MDM Narrative Medical decision making narrative: Patient is a 73-year-old male who presents to the emergency department with a chief complaint of concern for kidney stone. Patient will have workup performed here on the differential diagnosis includes but not limited to ACS, urolithiasis, nephrolithiasis, UTI, pyelonephritis. Once workup is obtained reviewed he will be reevaluated. Patient states that he does not need anything for pain medication at this point time Patient's CBC reviewed and was largely unremarkable no leukocytosis noted white blood count normal at 6.6, hemoglobin was normal at 13.9, platelet count normal 184. Patient's sodium normal 144, potassium normal at 3.9, creatinine normal at 1.06. Patient's total bilirubin normal at 0.80 AST and ALT were normal at 20 and 33 respectively. Patient lipase normal at 33. Patient urinalysis showed occult blood with 250, 25 leukocyte Estrace however only 0-5 white blood cells seen with no bacteria noted no indication for antibiotics at this point time. Patient CT abdomen pelvis with IV contrast reviewed and showed 7.4 mm calculus in the proximal portion of the right ureter causing right hydronephrosis. Bilateral nonobstructive intermittent calculi noted. Did discuss case with urologist Dr. Paris who will accept the patient for admission. Patient is agreeable with this plan all question concerns answered. Lab Data Labs: Laboratory Results - last 24 hr 02/08/24 02/08/24 10:34 11:07 WBC 6.6 RBC 4.68 Hgb 13.9 Hct 43.7 MCV 93.4 MCH 29.7 MCHC 31.8 L RDW Std Deviation 50.6 H RDW Coeff of [place]are[place] 14.6 Plt Count 184 MPV 9.9 Immature Gran % (Auto) 0.500 Neut % (Auto) 63.0 Lymph % (Auto) 24.6 [place] % (Auto) 9.9 Eos % (Auto) 1.5 Baso % (Auto) 0.5 Absolute Neuts (auto) 4.1 Absolute Lymphs (auto) 1.61 Nucleated RBC % 0 Sodium 144 Potassium 3.9 Chloride 108 H Carbon Dioxide 31.0 Anion Gap 5 BUN 20 H Creatinine 1.06 Estim Creat Clear Calc 87.55 Est GFR (MDRD) Af Amer 88 Est GFR (MDRD) Non-Af 73 BUN/Creatinine Ratio 18.9 Glucose 120 H Calcium 9.2 Total Bilirubin 0.80 AST 20 ALT 33 Alkaline Phosphatase 87 Total Protein 6.7 Albumin 3.6 Globulin 3.1 Albumin/Globulin Ratio 1.2 Lipase 33 Urine Color Yellow Urine Clarity Clear Urine pH 5.0 Ur Specific [place] 1.020 Urine Protein 30 H Urine Glucose (UA) Normal Urine Ketones Negative Urine Occult Blood 250 H Urine Nitrite Negative Urine Bilirubin Negative Urine Urobilinogen 1 H Ur Leukocyte Esterase 25 H Urine RBC 25-50 SEEN Urine WBC 0-5 SEEN Ur Squamous Epith Cells 0 SEEN Urine Bacteria 0 SEEN Urine Mucus 1+ Radiography Diagnostic Testing: Clinical Impression(s) from Imaging Studies Abdomen/Pelvis CT 02/08/24 10:30 IMPRESSION: 7.4 mm calculus in the proximal portion of the right ureter causing right hydronephrosis. Bilateral nonobstructive intrarenal calculi. Electronically Signed: Francisco J Szymanski MD at 11:40 EDT , Discharge Plan Triage Chief Complaint: Flank Pain ED Provider: Norbert Kowalski Dx/Rx/DC Orders Instructions: Kidney Stone Ureteroscopy Prescriptions: New ibuprofen 600 mg tablet 600 mg PO Q6H PRN (Reason: fever or pain) Qty: 20 0RF Continued multivitamin Tablet 1 tab PO DAILY (DME) PEP device See Rx Instructions .ROUTE .MEDSUPPLY Qty: 1 0RF Rx Instructions: with training Tezspire 210 mg/1.91 mL (110 mg/mL) pen injector 210 mg subcut Q4W Qty: 1.91 12RF ipratropium bromide 42 mcg (0.06 %) spray,non-aerosol 1 spray intranasal BID PRN (Reason: allergies) Rx Instructions: administer into each nostril aspirin 81 mg Tablet,Chewable 81 mg PO BREAKFAST Qty: 90 3RF azithromycin 250 mg tablet 250 mg PO DAILY trazodone 100 mg tablet 100 mg PO QHS PRN (Reason: insomnia) 90 Days Qty: 40 1RF albuterol sulfate [Ventolin HFA] 90 mcg/actuation HFA aerosol inhaler 2 puff inhalation Q4H PRN (Reason: shortness of breath or wheezing) Qty: 18 6RF albuterol sulfate 2.5 mg /3 mL (0.083 %) solution for nebulization 2.5 mg inhalation .COMPLEX Qty: 180 11RF Rx Instructions: 2.5 mg inhaled BID; J45.9 Asthma loratadine 10 mg tablet 10 mg PO DAILY Qty: 90 3RF azelastine 205.5 mcg (0.15 %) spray,non-aerosol 1 spray intranasal BID Qty: 3 3RF Rx Instructions: administer into each nostril tamsulosin 0.4 mg capsule 0.4 mg PO DAILY Qty: 90 3RF rosuvastatin 5 mg tablet 2.5 mg PO QODAY Qty: 90 3RF Advair HFA 230-21 mcg/actuation HFA aerosol inhaler 2 puff inhalation Q12H Qty: 3 3RF fluticasone propionate 50 mcg/actuation spray,suspension 2 spray intranasal DAILY Qty: 3 3RF irbesartan 150 mg tablet 150 mg PO DAILY Qty: 90 3RF allopurinol 300 mg tablet 300 mg PO DAILY Qty: 90 3RF lansoprazole [Prevacid] 30 mg capsule,delayed release(DR/EC) 30 mg PO DAILY Qty: 90 3RF montelukast 10 mg tablet 10 mg PO QPM Qty: 90 3RF Spiriva Respimat 1.25 mcg/actuation mist 2 puff inhalation DAILY Qty: 3 3RF Primary Care Provider: Digna Ureña Referrals: Chris Paris MD [Med Staff - Active Staff] - Digna Ureña MD [Primary Care Provider] - Print Language: Sami
[2024-02-08 11:26] LABS: Mucous, Urine 1+ /hpf (<or=2+); Red Blood Cells-Urine 25-50 SEEN /hpf (0-5); White Blood Cells 0-5 SEEN /hpf (0-5)
--- NOTE | 2024-02-08 13:25 | PCM.HP.STD ---
HPI - General General Date of Admission: 02/08/24 Chief Complaint: Obstructing right ureteral calculi HPI Narrative JOAQUIN HENDRICKS, is a 73 M who presents to the emergency room with severe pain in the right side is an obese male with multiple medical problems including heart disease and prior stents in the past we will admit the patient at this point and put him on the schedule tomorrow for ureteroscopy and laser lithotripsy and stent placement on the right side. [facility] Medical History COVID-19 Multiple ecchymoses of both upper arms Skin tear of right elbow without complication Hemorrhoids Cataracts, bilateral Atherosclerosis of coronary artery of [place] heart without angina pectoris Recurrent pneumonia History of left heart catheterization Essential hypertension Shortness of breath Bilateral lower extremity edema Cataract Asthmatic bronchitis with acute exacerbation URI (upper respiratory infection) Cough Flu vaccine need Chronic cough Hyperlipidemia Asthma Obesity (BMI 30-39.9) Easy bruising Abnormal bruising Hay fever Fatigue Hemorrhoids Lung disease Arthritis Eosinophilia PND (post-nasal drip) Asthma Epithelial inclusion cyst Pre-diabetes Umbilical hernia Morbid obesity GERD (gastroesophageal reflux disease) BPH (benign prostatic hyperplasia) Chronic sinusitis DDD (degenerative disc disease) Recurrent kidney stones Gout Insomnia CARMELLA (obstructive sleep apnea) Home Medications ?Medication ?Instructions ?Recorded ?Last Taken ?Type multivitamin 1 tab PO DAILY 09/19/20 Unknown History PEP device #1 ea 06/12/22 Unknown Rx trazodone 100 mg tablet 100 mg PO QHS PRN insomnia 90 days 07/16/22 Unknown Rx #40 tabs albuterol sulfate 90 mcg/actuation 2 puff inhalation Q4H PRN 07/17/22 Unknown Rx aerosol inhaler (Ventolin HFA) shortness of breath or wheezing #18 grams aspirin 81 mg chewable tablet 81 mg PO BREAKFAST #90 tabs 08/15/22 Unknown Rx albuterol sulfate 2.5 mg/3 mL 2.5 mg (3 mL) inhalation .COMPLEX 09/24/22 Unknown Rx (0.083 %) solution for nebulization Sob &/Or Wheezing #180 mL ipratropium bromide 42 mcg (0.06 1 spray intranasal BID PRN 11/12/22 Unknown History %) nasal spray allergies tezepelumab-ekko 210 mg/1.91 mL 210 mg (1.91 mL) subcut Q4W #1.91 11/28/22 Unknown Rx (110 mg/mL) subcutaneous pen mL injector (Tezspire) loratadine 10 mg tablet 10 mg PO DAILY #90 tabs 02/02/23 Unknown Rx azelastine 205.5 mcg (0.15 %) 1 spray intranasal BID #3 ea 03/16/23 Unknown Rx nasal spray azithromycin 250 mg tablet 250 mg PO DAILY 04/17/23 Unknown History tamsulosin 0.4 mg capsule 0.4 mg PO DAILY #90 caps 07/23/23 Unknown Rx rosuvastatin 5 mg tablet 2.5 mg (1/2 x 5 mg) PO QODAY #90 07/27/23 Unknown Rx tabs fluticasone propionate 230 2 puff inhalation Q12H #3 ea 08/24/23 Unknown Rx mcg-salmeterol 21 mcg/actuation HFA inhaler (Advair HFA) fluticasone propionate 50 2 spray intranasal DAILY #3 ea 09/10/23 Unknown Rx mcg/actuation nasal spray,suspension irbesartan 150 mg tablet 150 mg PO DAILY #90 tabs 09/10/23 Unknown Rx allopurinol 300 mg tablet 300 mg PO DAILY #90 tabs 10/15/23 Unknown Rx lansoprazole 30 mg capsule,delayed 30 mg PO DAILY #90 caps 10/15/23 Unknown Rx release (Prevacid) montelukast 10 mg tablet 10 mg PO QPM #90 tabs 10/15/23 Unknown Rx tiotropium bromide 1.25 2 puff inhalation DAILY #3 ea 10/15/23 Unknown Rx mcg/actuation mist for inhalation (Spiriva Respimat) Allergy/AdvReac Type Severity Reaction Status Date / Time lisinopril AdvReac Intermediate cough Verified 01/27/24 14:00 simvastatin AdvReac Intermediate elevated Verified 01/27/24 14:00 liver enzymes Family History Father Cancer Bone Marrow Surgical History History of coronary artery stent placement History of lumbar discectomy History of uvulectomy History of tonsillectomy History of cataract extraction History of coronary artery stent placement (08/14/22) History of cataract extraction History of tonsillectomy History of uvulectomy History of orthopedic surgery S/P correction of deviated nasal septum Social History household members: spouse housing: house Smoking Status: Never smoker alcohol intake: current alcohol intake frequency: a few times a month Alcohol type: beer and wine substance use type: does not use what type of physical activity do you participate in: none Vital Signs Vital Signs Vital Signs: 02/08/24 10:10 02/08/24 12:11 Temperature 96.9 F L 97.5 F L Temperature Source Temporal Pulse Rate 53 L 81 Respiratory Rate 16 18 Blood Pressure 154/84 H 128/62 H Blood Pressure Mean 107 84 Pulse Ox 97 99 Oxygen Delivery Method Room Air Weight Weight: 136.168 kg Body Mass Index (BMI) 43.0 Physical Exam Const alert and oriented x3 General Appearance: cooperative HEENT normocephalic, head/scalp atraumatic, EAC's normal and TM's normal bilaterally Eyes PERRL and EOMs intact bilaterally Pupil: sluggish Neck no lymphadenopathy, supple and no JVD General: trachea midline Lymph Lymphatic: no lymphadenopathy noted, lymphedema and lymphadenopathy Resp normal respiratory effort, normal air movement and clear to auscultation bilaterally Cardio regular rate, regular rhythm and peripheral pulses 2+ throughout GI soft to palpation, non-tender and non-distended Extremity normal capillary refill and no clubbing, cyanosis or edema General Extremity: no tenderness to palpation of joints or extremities Skin no rashes or lesions noted General Skin Exam: turgor normal Lesions: no lesions Rashes: no rashes Neuro CN's II-XII intact bilaterally Speech: speech normal Motor Exam: strength 5/5 throughout; Negative for general weakness Psych thought process normal, cooperative and affect normal Appearance: appropriate Results Medical Records Data Attestation: I reviewed the patient's medical records Lab / Micro Data 02/08/24 10:34 02/08/24 10:34 Labs: Laboratory Results - last 24 hr 02/08/24 10:34: WBC 6.6, RBC 4.68, Hgb 13.9, Hct 43.7, MCV 93.4, MCH 29.7, MCHC 31.8 L, RDW Std Deviation 50.6 H, RDW Coeff of Yareli 14.6, Plt Count 184, MPV 9.9, Immature Gran % (Auto) 0.500, Neut % (Auto) 63.0, Lymph % (Auto) 24.6, [place] % (Auto) 9.9, Eos % (Auto) 1.5, Baso % (Auto) 0.5, Absolute Neuts (auto) 4.1, Absolute Lymphs (auto) 1.61, Nucleated RBC % 0, Sodium 144, Potassium 3.9, Chloride 108 H, Carbon Dioxide 31.0, Anion Gap 5, BUN 20 H, Creatinine 1.06, Estim Creat Clear Calc 87.55, Est GFR (MDRD) Af Amer 88, Est GFR (MDRD) Non-Af 73, BUN/Creatinine Ratio 18.9, Glucose 120 H, Calcium 9.2, Total Bilirubin 0.80, AST 20, ALT 33, Alkaline Phosphatase 87, Total Protein 6.7, Albumin 3.6, Globulin 3.1, Albumin/Globulin Ratio 1.2, Lipase 33 02/08/24 11:07: Urine Color Yellow, Urine Clarity Clear, Urine pH 5.0, Ur Specific [place] 1.020, Urine Protein 30 H, Urine Glucose (UA) Normal, Urine Ketones Negative, Urine Occult Blood 250 H, Urine Nitrite Negative, Urine Bilirubin Negative, Urine Urobilinogen 1 H, Ur Leukocyte Esterase 25 H, Urine RBC 25-50 SEEN, Urine WBC 0-5 SEEN, Ur Squamous Epith Cells 0 SEEN, Urine Bacteria 0 SEEN, Urine Mucus 1+ Imaging Radiology Impression Abdomen/Pelvis CT 02/08/24 10:30 IMPRESSION: 7.4 mm calculus in the proximal portion of the right ureter causing right hydronephrosis. Bilateral nonobstructive intrarenal calculi. Electronically Signed: Francisco J Szymanski MD at 11:40 EDT , Assessment & Plan Assessment/Plan (1) Ureter, calculus: PLAN: Admit patient for kidney stone n.p.o. at midnight plan for right ureteroscopy laser lithotripsy and stent
[2024-02-08] MEDS: Cefazolin 1 GM/50 ML BAG IV ×2 (14:07→22:57)
[2024-02-08] MEDS: 0.9% Saline Lock 10 ML Syringe IV (19:56)
[2024-02-08] MEDS: Docusate Sodium 100 MG Capsule 200 MG PO (19:56)
[2024-02-08] MEDS: Montelukast 10 MG Tablet PO (19:57)
[2024-02-09] VITALS (12 sets, daily range): BP systolic 129–145; BP diastolic 68–83; PULSE 52–77; RESP 16–18; TEMP 36.2–37.1; O2SAT 94–99; BMI 43.0
[2024-02-09] MEDS: Cefazolin 1 GM/50 ML BAG IV ×2 (05:29→13:56)
--- NOTE | 2024-02-09 05:55 | EKG12_ITS ---
Test Reason : MORNING EKG Blood Pressure : / mmHG Vent. Rate : 050 BPM Atrial Rate : 050 BPM P-R Int : 192 ms QRS Dur : 102 ms QT Int : 448 ms P-R-T Axes : 059 037 024 degrees QTc Int : 408 ms Sinus bradycardia Otherwise normal ECG When compared with ECG of 08-FEB-2024 10:34, MANUAL COMPARISON REQUIRED, DATA IS UNCONFIRMED Confirmed by Charlie Hernandez ([id number]), food editor BERKLEY ROSAS ([id number]) on 02/10/2024 10:27:19 AM Referred By: Confirmed By:Charlie Hernandez
[2024-02-09 06:14] LABS: Hematocrit 41.9 % (40-54); Hemoglobin 13.4 g/dL (13.0-16.5); Mean Corpuscular Hgb 29.8 pg (27.0-32.0); Mean Corpuscular Volume 93.1 fL (80-94); Mean Platelet Vol. 10.1 fl (6.2-12.0); Platelet Count 198 K/mm3 (150-450); RBC Distribution Width CV 14.6 % (11.6-14.6); RBC Distribution Width SD 50.3 fl (35.1-43.9); White Blood Count 7.5 K/mm3 (4.4-11.0)
[2024-02-09 06:49] LABS: Anion Gap 5 (5-15); BUN 17 mg/dL (7-18); BUN/Creat Ratio 18.6 RATIO (10-20); Calcium,Total 8.9 mg/dL (8.5-10.1); Chloride 112 mmol/L (98-107); Creatinine, Serum 0.92 mg/dL (0.70-1.30); EST Glomerular Filtration Rate 86 mL/min (>60); Est Glom Filt Rate - Afr Amer 105 mL/min (>60); Estimated Creatinine Clearance 100.89 ml/min; Glucose 96 mg/dL (74-106); Sodium Level 141 mmol/L (136-145)
[2024-02-09] MEDS: Budesonide Respules 0.5 MG/2 ML AMPUL.NEB. INHALATION (07:10)
[2024-02-09] MEDS: Ipratropium/Albuterol Sulfate 3 ML AMPUL.NEB INHALATION (07:11)
[2024-02-09] MEDS: Azithromycin 250 MG Tablet PO (09:22)
--- NOTE | 2024-02-09 11:34 | PCM.PRE.AN2 ---
ASA Classification* ASA Classification ASA Classification: 3 Assessment & Plan Anesthesia* Anesthesia Assessment Anesthesia Assessment: Discussed sedation and/or anesthesia options, risks, benefits, and alternatives with patient/parents/legal guardian/POA. Questions invited. The patient/parents/legal guardian/POA seems to understand and agrees to proceed with anesthesia plan. Reviewed the physical assessment, medical history, allergy history and patient home medications list prior to surgery/procedure/anesthetic and documented any changes. Performed airway and anesthesia risk assessments. Anesthesia Type Anesthesia Type: MAC (*see written preanesthesia record for full assessment) Anesthesia Focused Assessment* Temperature: 97.7 F Pulse Rate: 59 Blood Pressure: 145/83 Respiratory Rate: 16 Pulse Ox: 94 Airway Assessment Mouth opens: >3 cm Mallampati Score: III Focused Labs Anesthesia Preop lab: CBC WBC 7.5 K/mm3 (4.4-11.0) 02/09/24 05:09 RBC 4.50 M/mm3 (4.6-6.2) L 02/09/24 05:09 Hgb 13.4 g/dL (13.0-16.5) 02/09/24 05:09 Hct 41.9 % (40-54) 02/09/24 05:09 Plt Count 198 K/mm3 (150-450) 02/09/24 05:09 CHEMISTRY Potassium 4.0 mmol/L (3.5-5.1) 02/09/24 05:09 Sodium 141 mmol/L (136-145) 02/09/24 05:09 Magnesium 2.1 mg/dL (1.6-2.6) 01/25/22 00:17 BUN 17 mg/dL (7-18) 02/09/24 05:09 Creatinine 0.92 mg/dL (0.70-1.30) 02/09/24 05:09 Glucose 96 mg/dL (74-106) 02/09/24 05:09 COAG PT 14.1 SECONDS (11.7-14.9) 01/25/22 00:17 Pre-Assessment Diagnosis/Proposed Procedure Planned Operative Procedure(s): cysto stent Anesthesia History Anesthesia History - joiner helper: Anesthesia History - joiner helper Hx Hospitalization No 10/21/23 16:26 Any Problems With Anesthesia Yes: PROLONGED SURGERY W/ 02/09/24 09:15 TROUBLE WAKING AFTER AND VOMITING Cholinesterase deficiency No 02/09/24 09:15 You/Your Family Experience No 02/09/24 09:15 fever (hyperthermia) with Relationship Recent Exposure to Contagious No 02/09/24 09:15 Disease Does patient have nerve No 02/09/24 09:15 stimulator Patient instructed to have device shut off --Does patient have Pacemaker No 02/09/24 11:16 or ICD? When Was Last Pacemaker Check QUESTION #4 FULL TEXT: You/Your Family Experience fever (hyperthermia) with Anesthesia Last Oral Intake Last Oral intake: Last Oral Intake NPO since 00:00 02/09/24 11:16 Meds taken in AM with sips of Yes 02/09/24 11:16 water? Meds patient instructed to zithromax 02/09/24 11:16 take am of surgery PONV PONV - joiner helper: PONV - joiner helper Female HX of Motion Sickness HX of N/V After Surgery Non-Smoker Duration of Surgery greater than 60 minutes Number of Risk Factors PONV Score Height & Weight Height & Weight: Anesthesia: Height & Weight Height 5 ft 10 in 02/09/24 11:16 Weight: 136.2 kg 02/09/24 11:16 Body Mass Index (BMI) 43.0 02/09/24 11:16 Respiratory Assessment Respiratory Assessment - joiner helper: Respiratory Tract Infection Hx - joiner helper Hx Respiratory Tract Infection No 02/09/24 09:15 STOP Sleep Apnea STOP Sleep Apnea - joiner helper: STOP Sleep Apnea - joiner helper Hx Hypertension No 02/08/24 19:31 Hx Sleep Apnea Yes 02/08/24 19:31 CPAP Yes 02/08/24 19:31 BIPAP No 02/08/24 19:31 Do you snore loudly (louder than talking or can be heard Do you often feel tired/ fatigued/ sleepy during daytime? Has anyone observed you stop breathing during sleep? STOP Results Positive 02/08/24 19:31 QUESTION #5 FULL TEXT : Do you snore loudly (louder than talking or can be heard through closed doors)? 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 Specify any problems Hx of Preganancy in last 3 N/A 02/08/24 19:31 Months Nurse Filling Out Transfusion FSTEINER 02/08/24 19:31 & Questions: Date: 02/08/24 02/08/24 19:31 Time: 19:32 02/08/24 19:31 Patient unable to answer at this time (ie. confused, unrespo /Reproduction History /Reproductive History - joiner helper: /Reproductive Hx- joiner helper Hx Now No 02/09/24 09:15 Gestational Age (in weeks): EDC: Hx Hx Para Hx Section SAB Active Medications Active Medications: Current Medications Generic Name Dose Route Start Last Admin Trade Name Freq PRN Reason Stop Dose Admin Al Hydrox/Mg Hydrox/Simethicone 30 ml 02/08/24 13:37 Mag /Aluminum/Simeth Wch Udc 30 Ml Oral.Susp PO Q4H PRN PRN HEARTBURN Albuterol Sulfate 2.5 mg 02/08/24 18:47 Albuterol 2.5 Mg/3 Ml Vial.Neb. INHALATION Q4H PRN shortness of breath or wheezing Albuterol/Ipratropium 3 ml 02/08/24 23:00 02/09/24 07:11 Ipratropium/Albuterol Sulfate 3 Ml Ampul.Neb INHALATION 3 ml Q6HWA.RT DAKSHA Administration Allopurinol 300 mg 02/09/24 10:00 Allopurinol 300 Mg Tablet PO DAILY DAKSHA Aspirin 81 mg 02/09/24 08:00 Aspirin 81 Mg Tab.Chew PO BREAKFAST DAKSHA Atorvastatin Calcium 5 mg 02/10/24 10:00 Atorvastatin Calcium 10 Mg Tablet PO QODAY DAKSHA Azelastine HCl 1 spray 02/09/24 10:00 Azelastine Hcl Nasal.Sry NASAL BID DAKSHA Azithromycin 250 mg 02/09/24 10:00 02/09/24 09:22 Azithromycin 250 Mg Tablet PO 250 mg DAILY DAKSHA Administration Budesonide 0.5 mg 02/08/24 22:00 02/09/24 07:10 Budesonide Respules 0.5 Mg/2 Ml Ampul.Neb. INHALATION 0.5 mg Q12H.RT DAKSHA Administration Docusate Sodium 200 mg 02/08/24 22:00 02/08/24 19:56 Docusate Sodium 100 Mg Capsule PO 200 mg BID DASKHA Administration Fluticasone Propionate 2 spray 02/09/24 10:00 Fluticasone 0.05% 1 [place] Nasal.Sry NASAL DAILY DAKSHA Cefazolin Sodium 1 gm in 50 mls @ 150 mls/hr 02/08/24 14:00 02/09/24 06:00 IV Infused Q8 DAKSHA Infusion Sodium Chloride 250 mls @ 15 mls/hr 02/08/24 19:31 IV .[id number] PRN Additional IVPB Infusion Sodium Chloride 250 mls @ 15 mls/hr 02/08/24 19:31 IV .[id number] PRN Saline Flush Lactated Ringer's 1,000 mls @ 15 mls/hr 02/09/24 11:30 IV .Q48H DAKSHA Ipratropium [place] 1 spray 02/09/24 10:00 Ipratropium [place] 0.06% Nasal [place] NASAL BID PRN allergies Ketorolac Tromethamine 15 mg 02/08/24 13:37 Ketorolac 15 Mg/Ml Vial IV 02/10/24 13:39 Q6H PRN PRN Pain Score 1-10 Loratadine 10 mg 02/09/24 10:00 Loratadine 10 Mg Tablet PO DAILY [facility] Losartan Potassium 50 mg 02/09/24 10:00 Losartan Potassium 50 Mg Tablet PO DAILY [facility] Montelukast Sodium 10 mg 02/08/24 21:00 02/08/24 19:57 Montelukast 10 Mg Tablet PO 10 mg QPM DAKSHA Administration Morphine Sulfate 2 mg 02/08/24 13:37 Morphine 2 Mg/Ml Syringe IV Q2H PRN Pain Score 6-10 Multivitamins 1 tablet 02/09/24 10:00 Multivitamins,Therapeutic Tablet PO DAILY [facility] Ondansetron HCl 4 mg 02/08/24 13:37 Ondansetron 4 Mg/2 Ml Vial IV Q8H PRN NAUSEA/VOMITING Oxycodone HCl 5 - 10 mg 02/08/24 13:37 Oxycodone 5 Mg Tablet PO Q6H PRN PRN Pain Score 4-10 Pantoprazole Sodium 40 mg 02/09/24 10:00 Pantoprazole Sodium 40 Mg Tablet PO DAILY DAKSHA Sodium Chloride 10 - 40 ml 02/08/24 19:31 02/08/24 19:56 0.9% Saline Lock 10 Ml Syringe IV 10 ml UD PRN Administration SALINE FLUSH Tamsulosin HCl 0.4 mg 02/09/24 10:00 Tamsulosin Hcl 0.4 Mg Capsule PO DAILY DAKSHA Trazodone HCl 100 mg 02/08/24 13:34 Trazodone 100 Mg Tablet PO QHS PRN insomnia PFSH Medical History Kidney stones Non-smoker CPAP (continuous positive airway pressure) dependence COVID-19 Multiple ecchymoses of both upper arms Skin tear of right elbow without complication Hemorrhoids Cataracts, bilateral Atherosclerosis of coronary artery of [place] heart without angina pectoris Recurrent pneumonia History of left heart catheterization Essential hypertension Shortness of breath Bilateral lower extremity edema Cataract Asthmatic bronchitis with acute exacerbation URI (upper respiratory infection) Cough Flu vaccine need Chronic cough Hyperlipidemia Asthma Obesity (BMI 30-39.9) Easy bruising Abnormal bruising Hay fever Fatigue Hemorrhoids Lung disease Arthritis Eosinophilia PND (post-nasal drip) Asthma Epithelial inclusion cyst Pre-diabetes Umbilical hernia Morbid obesity GERD (gastroesophageal reflux disease) BPH (benign prostatic hyperplasia) Chronic sinusitis DDD (degenerative disc disease) Recurrent kidney stones Gout Insomnia CARMELLA (obstructive sleep apnea) Home Medications ?Medication ?Instructions ?Recorded ?Last Taken ?Type multivitamin 1 tab PO DAILY 09/19/20 Unknown History PEP device #1 ea 06/12/22 Unknown Rx trazodone 100 mg tablet 100 mg PO QHS PRN insomnia 90 days 07/16/22 Unknown Rx #40 tabs albuterol sulfate 90 mcg/actuation 2 puff inhalation Q4H PRN 07/17/22 Unknown Rx aerosol inhaler (Ventolin HFA) shortness of breath or wheezing #18 grams albuterol sulfate 2.5 mg/3 mL 2.5 mg (3 mL) inhalation .COMPLEX 09/24/22 Unknown Rx (0.083 %) solution for nebulization Sob &/Or Wheezing #180 mL ipratropium bromide 42 mcg (0.06 1 spray intranasal BID PRN 11/12/22 Unknown History %) nasal spray allergies tezepelumab-ekko 210 mg/1.91 mL 210 mg (1.91 mL) subcut Q4W #1.91 11/28/22 Unknown Rx (110 mg/mL) subcutaneous pen mL injector (Tezspire) loratadine 10 mg tablet 10 mg PO DAILY #90 tabs 02/02/23 Unknown Rx azelastine 205.5 mcg (0.15 %) 1 spray intranasal BID #3 ea 03/16/23 Unknown Rx nasal spray azithromycin 250 mg tablet 250 mg PO DAILY 04/17/23 Unknown History tamsulosin 0.4 mg capsule 0.4 mg PO DAILY #90 caps 07/23/23 Unknown Rx rosuvastatin 5 mg tablet 2.5 mg (1/2 x 5 mg) PO QODAY #90 07/27/23 Unknown Rx tabs fluticasone propionate 230 2 puff inhalation Q12H #3 ea 08/24/23 Unknown Rx mcg-salmeterol 21 mcg/actuation HFA inhaler (Advair HFA) fluticasone propionate 50 2 spray intranasal DAILY #3 ea 09/10/23 Unknown Rx mcg/actuation nasal spray,suspension irbesartan 150 mg tablet 150 mg PO DAILY #90 tabs 09/10/23 Unknown Rx allopurinol 300 mg tablet 300 mg PO DAILY #90 tabs 10/15/23 Unknown Rx lansoprazole 30 mg capsule,delayed 30 mg PO DAILY #90 caps 10/15/23 Unknown Rx release (Prevacid) montelukast 10 mg tablet 10 mg PO QPM #90 tabs 10/15/23 Unknown Rx tiotropium bromide 1.25 2 puff inhalation DAILY #3 ea 10/15/23 Unknown Rx mcg/actuation mist for inhalation (Spiriva Respimat) aspirin 81 mg chewable tablet 81 mg PO .every other day 02/08/24 Unknown History ibuprofen 600 mg tablet 600 mg PO Q6H PRN fever or pain 02/08/24 Unknown Rx #20 tabs Allergy/AdvReac Type Severity Reaction Status Date / Time lisinopril AdvReac Intermediate cough Verified 01/27/24 14:00 simvastatin AdvReac Intermediate elevated Verified 01/27/24 14:00 liver enzymes Family History Father Cancer Bone Marrow Surgical History History of coronary artery stent placement History of lumbar discectomy History of uvulectomy History of tonsillectomy History of cataract extraction History of coronary artery stent placement (08/14/22) History of cataract extraction History of tonsillectomy History of uvulectomy History of orthopedic surgery S/P correction of deviated nasal septum Social History household members: spouse housing: house Smoking Status: Never smoker alcohol intake: current alcohol intake frequency: a few times a month Alcohol type: beer and wine substance use type: does not use what type of physical activity do you participate in: none Review of Systems (Anesthesia) ROS Narrative System reviewed and no additional complaints, except as documented.
[2024-02-09] MEDS: Lactated Ringers 1,000 ML 15 ML IV (11:39)
--- NOTE | 2024-02-09 13:00 | PCM.OPRPT ---
Report of Operation Date of Procedure: 02/09/24 Pre-Operative Diagnosis: Obstructing right ureteral calculi Post-Operative Diagnosis: The same Surgery/Procedure Performed:: Cystoscopy right stent placement and retrograde pyelogram Description of Surgical Findings:: Patient was taken back to the operating room after induction of general anesthesia, the patient was placed in dorsolithotomy position. The urethra and genitals were prepped and draped in usual sterile fashion. Using a 21 [place] rigid cystourethroscope the entire length of the urethra was normal then went into the bladder. Identified the trigone the left and right ureteral orifice. I then cannulated the right ureteral orifice and advanced a wire up into the kidney. I then backloaded a 5 [place] open ended catheter over the wire and injected contrast to delineate the anatomy. After the retrograde was performed I then used fluoroscopic images and guidance to advanced a wire up into the kidney and over the 0.038 glidewire I advanced a 6 [place] by 26 cm double pigtail stent. I then pulled the 0.038 Glidewire off and the stent coiled in the kidney bladder good position. The bladder was then drained. We confirmed the position of the stent by fluoroscopy. Patient anesthetic was reversed and was taken back to the PACU in good condition. Surgeon: Chris Paris Type of Anesthesia: General Drains: stent right Admit VTE Documentation VTE Present on Admission: No VTE Mechan Device Prophylaxis: SCD's VTE Pharm Prophylaxis ordered?: No
--- NOTE | 2024-02-09 13:02 | DCINST_ITS ---
Discharge Instructions Diet Discharge Diet: No restrictions Activity Discharge Activity: Return to Normal Activity and May Not Drive (while taking narcotic pain medications.) Follow Up Care Please Follow Up With: Chris Paris MD When: Call [phone] for an appointment Test Results: Test results from this visit will be discussed in further detail at your follow- up appointment, if applicable. Discharge Plan Admission Admit Date/Time: 02/09/24 07:27 Primary Reason for Your Visit: kidney stone Attending Provider: Chris Paris Primary Care Provider: Digna Ureña Instructions Patient Instructions: Having a Ureteral Stent Discharge Orders/Prescriptions Prescriptions: New ibuprofen 600 mg tablet 600 mg PO Q6H PRN (Reason: fever or pain) Qty: 20 0RF Continued multivitamin Tablet 1 tab PO DAILY (DME) PEP device See Rx Instructions .ROUTE .MEDSUPPLY Qty: 1 0RF Rx Instructions: with training Tezspire 210 mg/1.91 mL (110 mg/mL) pen injector 210 mg subcut Q4W Qty: 1.91 12RF Patient Comments: last taken January 26. ipratropium bromide 42 mcg (0.06 %) spray,non-aerosol 1 spray intranasal BID PRN (Reason: allergies) Rx Instructions: administer into each nostril azithromycin 250 mg tablet 250 mg PO DAILY trazodone 100 mg tablet 100 mg PO QHS PRN (Reason: insomnia) 90 Days Qty: 40 1RF albuterol sulfate [Ventolin HFA] 90 mcg/actuation HFA aerosol inhaler 2 puff inhalation Q4H PRN (Reason: shortness of breath or wheezing) Qty: 18 6RF albuterol sulfate 2.5 mg /3 mL (0.083 %) solution for nebulization 2.5 mg inhalation .COMPLEX Qty: 180 11RF Rx Instructions: 2.5 mg inhaled BID; J45.9 Asthma loratadine 10 mg tablet 10 mg PO DAILY Qty: 90 3RF azelastine 205.5 mcg (0.15 %) spray,non-aerosol 1 spray intranasal BID Qty: 3 3RF Rx Instructions: administer into each nostril tamsulosin 0.4 mg capsule 0.4 mg PO DAILY Qty: 90 3RF rosuvastatin 5 mg tablet 2.5 mg PO QODAY Qty: 90 3RF Advair HFA 230-21 mcg/actuation HFA aerosol inhaler 2 puff inhalation Q12H Qty: 3 3RF fluticasone propionate 50 mcg/actuation spray,suspension 2 spray intranasal DAILY Qty: 3 3RF irbesartan 150 mg tablet 150 mg PO DAILY Qty: 90 3RF allopurinol 300 mg tablet 300 mg PO DAILY Qty: 90 3RF lansoprazole [Prevacid] 30 mg capsule,delayed release(DR/EC) 30 mg PO DAILY Qty: 90 3RF montelukast 10 mg tablet 10 mg PO QPM Qty: 90 3RF Spiriva Respimat 1.25 mcg/actuation mist 2 puff inhalation DAILY Qty: 3 3RF No Action aspirin 81 mg Tablet,Chewable 81 mg PO .every other day Patient Comments: every other day Referrals / Follow Up: Chris Paris MD [Med Staff - Active Staff] - Digna Ureña MD [Primary Care Provider] - Disposition Disposition (needs filled in before D/C Order can be placed): Home, Self Care
--- NOTE | 2024-02-09 13:09 | PCM.POST.ANE ---
Anesthesia: Postop Eval I Current Vital Signs Temperature: 98.8 F Pulse Rate: 59 Blood Pressure: 136/82 Respiratory Rate: 18 Pulse Ox: 95 Assessment Airway patent: Yes Spontaneous unlabored respirations: Yes nausea: No Vomiting: No Anesthesia Complication: No Fluid Hydration Crystalloid volume administer (ml): 500 Total IV fluid infused: 500 Progress Note Anesthesia document: Postop Eval 1 completed: Yes
--- NOTE | 2024-02-09 13:55 | POSTOPAN2_ITS ---
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.CSIR Spontaneous unlabored Yes 02/09/24 13:09 UPS DRIVER.CSIR respirations Mental status nausea No 02/09/24 13:09 UPS DRIVER.CSIR Vomiting No 02/09/24 13:09 UPS DRIVER.CSIR Anesthesia Postop Eval I: Fluid Summary Crystalloid volume administer 500 02/09/24 13:09 UPS DRIVER.CSIR (ml) Colloids volume administered ( ml) Blood Product volume administered (ml) Total IV fluid infused 500 02/09/24 13:09 UPS DRIVER.CSIR Anesthesia Postop Eval I: Summary Notes Anesthesia Complication No 02/09/24 13:09 UPS DRIVER.CSIR Anesthesia Complication Comment: Post-operative progress note Anesthesia: Postop Eval II Evaluation Mental status: Awake Pain Level: 0 nausea: No Vomiting: No
--- NOTE | 2024-02-09 13:55 | PCM.POSTANE2 ---
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.CSIR Spontaneous unlabored Yes 02/09/24 13:09 WAVE SOLDER OFFBEARER.CSIR respirations Mental status nausea No 02/09/24 13:09 WAVE SOLDER OFFBEARER.CSIR Vomiting No 02/09/24 13:09 WAVE SOLDER OFFBEARER.CSIR Anesthesia Postop Eval I: Fluid Summary Crystalloid volume administer 500 02/09/24 13:09 WAVE SOLDER OFFBEARER.CSIR (ml) Colloids volume administered ( ml) Blood Product volume administered (ml) Total IV fluid infused 500 02/09/24 13:09 WAVE SOLDER OFFBEARER.CSIR Anesthesia Postop Eval I: Summary Notes Anesthesia Complication No 02/09/24 13:09 WAVE SOLDER OFFBEARER.CSIR Anesthesia Complication Comment: Post-operative progress note Anesthesia: Postop Eval II Evaluation Mental status: Awake Pain Level: 0 nausea: No Vomiting: No
--- NOTE | 2024-02-09 14:18 | CASEMGMT ---
Patient has order for discharge. RN CM in to discuss needs at discharge. Patient denies needs or help at discharge. Patient had no further questions or concerns.
== END 2024-02-09 12:59 | disposition home or self-care (01) ==
LOC: ED 13:44 → PCU 02-09 07:04
PROVIDERS: Admitting Provider Urology; Emergency Provider Emergency Medicine; PCP Internal Medicine; Visit Provider Urology
PROC: (CPT 52332; principal; 2024-02-09 12:20)
DX: N13.2 Hydronephrosis with renal and ureteral calculous obstruction (principal); Z68.41 Body mass index [BMI] 40.0-44.9, adult; I25.10 Atherosclerotic heart disease of native coronary artery without angina pectoris; Z86.16 Personal history of COVID-19; I10 Essential (primary) hypertension; E78.5 Hyperlipidemia, unspecified; E66.9 Obesity, unspecified; J45.909 Unspecified asthma, uncomplicated; G47.33 Obstructive sleep apnea (adult) (pediatric); N40.0 Benign prostatic hyperplasia without lower urinary tract symptoms; Z79.899 Other long term (current) drug therapy; Z79.82 Long term (current) use of aspirin; Z79.51 Long term (current) use of inhaled steroids; R73.03 Prediabetes
CPT/HCPCS: 52332; 00910; 74177; 76000; 80048; 80053; 81001; 83690; 85025; 85027; 93005; 94640; 94668; 96361; 96365; 96366; 99221; 99284; J7030; J7120; Q9967; A4216; C1769; C2617; G0378; J2405

== ENCOUNTER 2024-02-17 08:17 | Day surgery (SDC) | payer MEDICARE, BC, SELFPAY ==
[2023-10-21 16:26] VITALS: BMI 40.8
[2024-02-17] VITALS (9 sets, daily range): BP systolic 135–161; BP diastolic 73–88; PULSE 54–74; RESP 16–18; TEMP 36.2–36.6; O2SAT 93–98; BMI 42.3
[2024-02-17] MEDS: Lactated Ringers 1,000 ML 15 ML IV (08:40)
--- NOTE | 2024-02-17 09:02 | PRE.ANES_ITS ---
ASA Classification* ASA Classification ASA Classification: 3 Assessment & Plan Anesthesia* Anesthesia Assessment Anesthesia Assessment: Discussed sedation and/or anesthesia options, risks, benefits, and alternatives with patient/parents/legal guardian/POA. Questions invited. The patient/parents/legal guardian/POA seems to understand and agrees to proceed with anesthesia plan. Reviewed the physical assessment, medical history, allergy history and patient home medications list prior to surgery/procedure/anesthetic and documented any changes. Performed airway and anesthesia risk assessments. Anesthesia Type Anesthesia Type: General Anesthesia Focused Assessment* Temperature: 97.8 F Pulse Rate: 74 Blood Pressure: 135/75 Respiratory Rate: 18 Pulse Ox: 98 Airway Assessment Mouth opens: >3 cm Mallampati Score: II Focused Labs Anesthesia Preop lab: CBC WBC 7.5 K/mm3 (4.4-11.0) 02/09/24 05:09 RBC 4.50 M/mm3 (4.6-6.2) L 02/09/24 05:09 Hgb 13.4 g/dL (13.0-16.5) 02/09/24 05:09 Hct 41.9 % (40-54) 02/09/24 05:09 Plt Count 198 K/mm3 (150-450) 02/09/24 05:09 CHEMISTRY Potassium 4.0 mmol/L (3.5-5.1) 02/09/24 05:09 Sodium 141 mmol/L (136-145) 02/09/24 05:09 Magnesium 2.1 mg/dL (1.6-2.6) 01/25/22 00:17 BUN 17 mg/dL (7-18) 02/09/24 05:09 Creatinine 0.92 mg/dL (0.70-1.30) 02/09/24 05:09 Glucose 96 mg/dL (74-106) 02/09/24 05:09 COAG PT 14.1 SECONDS (11.7-14.9) 01/25/22 00:17 Pre-Assessment Diagnosis/Proposed Procedure Planned Operative Procedure(s): RIGHT URETEROSCOPY LASER STONE RIGHT URETERAL STENT PLACEMENT Anesthesia History 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 When Was Last Pacemaker Check QUESTION #4 FULL TEXT: You/Your Family Experience fever (hyperthermia) with Anesthesia Last Oral Intake Last Oral intake: Last Oral Intake NPO since 07:30 02/17/24 08:40 Meds taken in AM with sips of Yes 02/17/24 08:40 water? 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 Female No 02/15/24 08:17 HX of Motion Sickness No 02/15/24 08:17 HX of N/V After Surgery No 02/15/24 08:17 Non-Smoker Yes 02/15/24 08:17 Duration of Surgery greater Yes 02/15/24 08:17 than 60 minutes Number of Risk Factors 2 02/15/24 08:17 PONV Score Moderate Risk 02/15/24 08:17 Height & Weight Height & Weight: Anesthesia: Height & Weight Height 5 ft 10 in 02/17/24 08:40 Weight: 134 kg 02/17/24 08:40 Body Mass Index (BMI) 42.3 02/17/24 08:40 Respiratory Assessment Respiratory Assessment - commercial driver's license driver: Respiratory Tract Infection Hx - commercial driver's license driver Hx Respiratory Tract Infection No 02/15/24 08:17 STOP Sleep Apnea STOP Sleep Apnea - commercial driver's license driver: STOP Sleep Apnea - commercial driver's license driver Hx Hypertension Yes: CONTROLLED WITH MED 02/15/24 08:17 Hx Sleep Apnea Yes 02/15/24 08:17 CPAP Yes 02/15/24 08:17 BIPAP No 02/15/24 08:17 Do you snore loudly (louder than talking or can be heard Do you often feel tired/ fatigued/ sleepy during daytime? Has anyone observed you stop breathing during sleep? STOP Results Positive 02/15/24 08:17 QUESTION #5 FULL TEXT : Do you snore loudly (louder than talking or can be heard through closed doors)? 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 Specify any problems Hx of Preganancy in last 3 N/A 02/15/24 08:17 Months Nurse Filling Out Transfusion DSCHRIBER 02/15/24 08:17 & Questions: Date: 02/15/24 02/15/24 08:17 Time: 08:18 02/15/24 08:17 Patient unable to answer at this time (ie. 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: /Reproductive Hx- commercial driver's license driver Hx Now No 02/15/24 08:17 Gestational Age (in weeks): EDC: Hx Hx Para Hx Section SAB No 02/15/24 08:17 Active Medications Active Medications: Current Medications Generic Name Dose Route Start Last Admin Trade Name Freq PRN Reason Stop Dose Admin Cefazolin Sodium 3 gm/ Sodium 115 mls @ 150 mls/hr 02/17/24 12:50 Chloride IV 02/17/24 13:35 PREOP ONE Lactated Ringer's 1,000 mls @ 15 mls/hr 02/17/24 08:30 02/17/24 08:40 IV 15 mls/hr .Q48H DAKSHA Administration PFSH Medical History Wears hearing aid Wears glasses Alcohol use High cholesterol Injury of head and neck Gastric reflux Leg cramps History of edema Cardiology follow-up encounter History of echocardiogram History of stress test Hypertension Non-smoker CPAP (continuous positive airway pressure) dependence COVID-19 Multiple ecchymoses of both upper arms Skin tear of right elbow without complication Hemorrhoids Cataracts, bilateral Atherosclerosis of coronary artery of [place] heart without angina pectoris History of left heart catheterization Essential hypertension Shortness of breath Bilateral lower extremity edema Cataract Asthmatic bronchitis with acute exacerbation URI (upper respiratory infection) Cough Flu vaccine need Chronic cough Hyperlipidemia Asthma Obesity (BMI 30-39.9) Easy bruising Fatigue Hemorrhoids Arthritis Eosinophilia PND (post-nasal drip) Asthma Epithelial inclusion cyst Pre-diabetes Umbilical hernia Morbid obesity GERD (gastroesophageal reflux disease) BPH (benign prostatic hyperplasia) Chronic sinusitis DDD (degenerative disc disease) Recurrent kidney stones Gout Insomnia CARMELLA (obstructive sleep apnea) Home Medications ?Medication ?Instructions ?Recorded ?Last Taken ?Type multivitamin 1 tab PO DAILY 09/19/20 Unknown History PEP device #1 ea 06/12/22 Unknown Rx trazodone 100 mg tablet 100 mg PO QHS PRN insomnia 90 days 07/16/22 Unknown Rx #40 tabs albuterol sulfate 90 mcg/actuation 2 puff inhalation Q4H PRN 07/17/22 02/17/24 07:30 Rx aerosol inhaler (Ventolin HFA) shortness of breath or wheezing #18 grams albuterol sulfate 2.5 mg/3 mL 2.5 mg (3 mL) inhalation .COMPLEX 09/24/22 02/17/24 07:30 Rx (0.083 %) solution for nebulization Sob &/Or Wheezing #180 mL ipratropium bromide 42 mcg (0.06 1 spray intranasal BID PRN 11/12/22 Unknown History %) nasal spray allergies tezepelumab-ekko 210 mg/1.91 mL 210 mg (1.91 mL) subcut Q4W #1.91 11/28/22 Unknown Rx (110 mg/mL) subcutaneous pen mL injector (Tezspire) loratadine 10 mg tablet 10 mg PO DAILY #90 tabs 02/02/23 Unknown Rx azithromycin 250 mg tablet 250 mg PO DAILY 04/17/23 Unknown History rosuvastatin 5 mg tablet 2.5 mg (1/2 x 5 mg) PO QODAY #90 07/27/23 Unknown Rx tabs fluticasone propionate 230 2 puff inhalation Q12H #3 ea 08/24/23 Unknown Rx mcg-salmeterol 21 mcg/actuation HFA inhaler (Advair HFA) fluticasone propionate 50 2 spray intranasal DAILY #3 ea 09/10/23 Unknown Rx mcg/actuation nasal spray,suspension irbesartan 150 mg tablet 150 mg PO DAILY #90 tabs 09/10/23 Unknown Rx allopurinol 300 mg tablet 300 mg PO DAILY #90 tabs 10/15/23 Unknown Rx lansoprazole 30 mg capsule,delayed 30 mg PO DAILY #90 caps 10/15/23 02/17/24 07:30 Rx release (Prevacid) montelukast 10 mg tablet 10 mg PO QPM #90 tabs 10/15/23 Unknown Rx tiotropium bromide 1.25 2 puff inhalation DAILY #3 ea 10/15/23 Unknown Rx mcg/actuation mist for inhalation (Spiriva Respimat) aspirin 81 mg chewable tablet 81 mg PO .every other day 02/08/24 02/11/24 History ibuprofen 600 mg tablet 600 mg PO Q6H PRN fever or pain 02/08/24 Unknown Rx #20 tabs tamsulosin 0.4 mg capsule 0.4 mg PO QHS 02/15/24 Unknown History Allergy/AdvReac Type Severity Reaction Status Date / Time lisinopril AdvReac Intermediate cough Verified 02/17/24 08:43 simvastatin AdvReac Intermediate elevated Verified 02/17/24 08:43 liver enzymes Family History Father Cancer Bone Marrow Surgical History Hx of cervical discectomy Hx of cystoscopy History of coronary artery stent placement History of lumbar discectomy History of uvulectomy History of tonsillectomy History of cataract extraction History of coronary artery stent placement (08/14/22) History of cataract extraction History of tonsillectomy History of uvulectomy History of orthopedic surgery S/P correction of deviated nasal septum Social History household members: spouse housing: house Smoking Status: Never smoker alcohol intake: current alcohol intake frequency: a few times a month Alcohol type: beer and wine substance use type: does not use what type of physical activity do you participate in: none Review of Systems (Anesthesia) ROS Narrative System reviewed and no additional complaints, except as documented.
--- NOTE | 2024-02-17 09:20 | HP.PCM_ITS ---
HPI - General General Date of Service: 02/17/24 Chief Complaint: Right ureteral calculi HPI Narrative JOAQUIN HENDRICKS, is a 73 M who presents to laser the stone in the proximal right ureter he underwent a cystoscopy and stent placement for obstruction severe pain prior to this were negative proceed with laser lithotripsy of the stone and stent removal. FOR[facility]LY [facility], [facility] Medical History Wears hearing aid Wears glasses Alcohol use High cholesterol Injury of head and neck Gastric reflux Leg cramps History of edema Cardiology follow-up encounter History of echocardiogram History of stress test Hypertension Non-smoker CPAP (continuous positive airway pressure) dependence COVID-19 Multiple ecchymoses of both upper arms Skin tear of right elbow without complication Hemorrhoids Cataracts, bilateral Atherosclerosis of coronary artery of [place] heart without angina pectoris History of left heart catheterization Essential hypertension Shortness of breath Bilateral lower extremity edema Cataract Asthmatic bronchitis with acute exacerbation URI (upper respiratory infection) Cough Flu vaccine need Chronic cough Hyperlipidemia Asthma Obesity (BMI 30-39.9) Easy bruising Fatigue Hemorrhoids Arthritis Eosinophilia PND (post-nasal drip) Asthma Epithelial inclusion cyst Pre-diabetes Umbilical hernia Morbid obesity GERD (gastroesophageal reflux disease) BPH (benign prostatic hyperplasia) Chronic sinusitis DDD (degenerative disc disease) Recurrent kidney stones Gout Insomnia CARMELLA (obstructive sleep apnea) Home Medications ?Medication ?Instructions ?Recorded ?Last Taken ?Type multivitamin 1 tab PO DAILY 09/19/20 Unknown History PEP device #1 ea 06/12/22 Unknown Rx trazodone 100 mg tablet 100 mg PO QHS PRN insomnia 90 days 07/16/22 Unknown Rx #40 tabs albuterol sulfate 90 mcg/actuation 2 puff inhalation Q4H PRN 07/17/22 02/17/24 07:30 Rx aerosol inhaler (Ventolin HFA) shortness of breath or wheezing #18 grams albuterol sulfate 2.5 mg/3 mL 2.5 mg (3 mL) inhalation .COMPLEX 09/24/22 02/17/24 07:30 Rx (0.083 %) solution for nebulization Sob &/Or Wheezing #180 mL ipratropium bromide 42 mcg (0.06 1 spray intranasal BID PRN 11/12/22 Unknown History %) nasal spray allergies tezepelumab-ekko 210 mg/1.91 mL 210 mg (1.91 mL) subcut Q4W #1.91 11/28/22 Unknown Rx (110 mg/mL) subcutaneous pen mL injector (Tezspire) loratadine 10 mg tablet 10 mg PO DAILY #90 tabs 02/02/23 Unknown Rx azithromycin 250 mg tablet 250 mg PO DAILY 04/17/23 Unknown History rosuvastatin 5 mg tablet 2.5 mg (1/2 x 5 mg) PO QODAY #90 07/27/23 Unknown Rx tabs fluticasone propionate 230 2 puff inhalation Q12H #3 ea 08/24/23 Unknown Rx mcg-salmeterol 21 mcg/actuation HFA inhaler (Advair HFA) fluticasone propionate 50 2 spray intranasal DAILY #3 ea 09/10/23 Unknown Rx mcg/actuation nasal spray,suspension irbesartan 150 mg tablet 150 mg PO DAILY #90 tabs 09/10/23 Unknown Rx allopurinol 300 mg tablet 300 mg PO DAILY #90 tabs 10/15/23 Unknown Rx lansoprazole 30 mg capsule,delayed 30 mg PO DAILY #90 caps 10/15/23 02/17/24 07:30 Rx release (Prevacid) montelukast 10 mg tablet 10 mg PO QPM #90 tabs 10/15/23 Unknown Rx tiotropium bromide 1.25 2 puff inhalation DAILY #3 ea 10/15/23 Unknown Rx mcg/actuation mist for inhalation (Spiriva Respimat) aspirin 81 mg chewable tablet 81 mg PO .every other day 02/08/24 02/11/24 History ibuprofen 600 mg tablet 600 mg PO Q6H PRN fever or pain 02/08/24 Unknown Rx #20 tabs tamsulosin 0.4 mg capsule 0.4 mg PO QHS 02/15/24 Unknown History Allergy/AdvReac Type Severity Reaction Status Date / Time lisinopril AdvReac Intermediate cough Verified 02/17/24 08:43 simvastatin AdvReac Intermediate elevated Verified 02/17/24 08:43 liver enzymes Family History Father Cancer Bone Marrow Surgical History Hx of cervical discectomy Hx of cystoscopy History of coronary artery stent placement History of lumbar discectomy History of uvulectomy History of tonsillectomy History of cataract extraction History of coronary artery stent placement (08/14/22) History of cataract extraction History of tonsillectomy History of uvulectomy History of orthopedic surgery S/P correction of deviated nasal septum Social History household members: spouse housing: house Smoking Status: Never smoker alcohol intake: current alcohol intake frequency: a few times a month Alcohol type: beer and wine substance use type: does not use what type of physical activity do you participate in: none Vital Signs Vital Signs Vital Signs: 02/17/24 08:40 02/17/24 08:40 02/17/24 09:02 Temperature 97.8 F 97.8 F Temperature Source Temporal Pulse Rate 74 74 Respiratory Rate 18 18 Respiratory Pattern Normal Blood Pressure 135/75 H 135/75 H Blood Pressure Mean 95 Blood Pressure Source Monitor Blood Pressure Position Sitting Blood Pressure Location Left Arm Pulse Ox 98 98 Oxygen Delivery Method Room Air Weight Weight: 134 kg Body Mass Index (BMI) 42.3
--- NOTE | 2024-02-17 09:23 | DCINST_ITS ---
Discharge Instructions Diet Discharge Diet: No restrictions Activity Discharge Activity: Return to Normal Activity and May Not Drive (while taking narcotic pain medications.) Dressing / Incision Call your doctor if you observe: Fever of 101 or Higher Follow Up Care Please Follow Up With: Chris Paris MD When: Call [phone] for an appointment Test Results: Test results from this visit will be discussed in further detail at your follow- up appointment, if applicable. Discharge Plan Admission Primary Reason for Your Visit: Laser of right kidney stone Attending Provider: Chris Paris Primary Care Provider: Digna Ureña Instructions Patient Instructions: Kidney Stone Ureteroscopy Print Language: Qatari Discharge Orders/Prescriptions Prescriptions: Continued multivitamin Tablet 1 tab PO DAILY (DME) PEP device See Rx Instructions .ROUTE .MEDSUPPLY Qty: 1 0RF Rx Instructions: with training Tezspire 210 mg/1.91 mL (110 mg/mL) pen injector 210 mg subcut Q4W Qty: 1.91 12RF Patient Comments: last taken January 26. ipratropium bromide 42 mcg (0.06 %) spray,non-aerosol 1 spray intranasal BID PRN (Reason: allergies) Rx Instructions: administer into each nostril azithromycin 250 mg tablet 250 mg PO DAILY ibuprofen 600 mg tablet 600 mg PO Q6H PRN (Reason: fever or pain) Qty: 20 0RF aspirin 81 mg Tablet,Chewable 81 mg PO .every other day Patient Comments: every other day tamsulosin 0.4 mg capsule 0.4 mg PO QHS trazodone 100 mg tablet 100 mg PO QHS PRN (Reason: insomnia) 90 Days Qty: 40 1RF albuterol sulfate [Ventolin HFA] 90 mcg/actuation HFA aerosol inhaler 2 puff inhalation Q4H PRN (Reason: shortness of breath or wheezing) Qty: 18 6RF albuterol sulfate 2.5 mg /3 mL (0.083 %) solution for nebulization 2.5 mg inhalation .COMPLEX Qty: 180 11RF Rx Instructions: 2.5 mg inhaled BID; J45.9 Asthma loratadine 10 mg tablet 10 mg PO DAILY Qty: 90 3RF rosuvastatin 5 mg tablet 2.5 mg PO QODAY Qty: 90 3RF Advair HFA 230-21 mcg/actuation HFA aerosol inhaler 2 puff inhalation Q12H Qty: 3 3RF fluticasone propionate 50 mcg/actuation spray,suspension 2 spray intranasal DAILY Qty: 3 3RF irbesartan 150 mg tablet 150 mg PO DAILY Qty: 90 3RF allopurinol 300 mg tablet 300 mg PO DAILY Qty: 90 3RF lansoprazole [Prevacid] 30 mg capsule,delayed release(DR/EC) 30 mg PO DAILY Qty: 90 3RF montelukast 10 mg tablet 10 mg PO QPM Qty: 90 3RF Spiriva Respimat 1.25 mcg/actuation mist 2 puff inhalation DAILY Qty: 3 3RF Referrals / Follow Up: Chris Paris MD [Med Staff - Active Staff] - Digna Ureña MD [Primary Care Provider] - Disposition Disposition (needs filled in before D/C Order can be placed): Home, Self Care
--- NOTE | 2024-02-17 09:24 | PCM.OPRPT ---
Report of Operation Date of Procedure: 02/17/24 Pre-Operative Diagnosis: Right ureteral calculi Post-Operative Diagnosis: The same Surgery/Procedure Performed:: Cystoscopy right ureteroscopy laser lithotripsy of stone and stent removal Description of Surgical Findings:: This is a patient who presents to the hospital for treatment for an obstructing ureter calculi. I discussed with the patient how the surgery would be performed and we reviewed the risks and benefits of the surgery. The risk and benefits include the risk of failure to remove the stone completely and that the patient may need multiple procedures. We discussed the risk of an infection, the risk of bleeding. We discussed the very rare risk of serious complicated injury to the ureter. The patient understands that if the stone is not able to be removed safely that we may abort the procedure and place a stent. After full discussion and all questions address with the patient the consent form was signed the side was marked appropriately and the patient was taken back to the operating room for the procedure. The patient was taken back to the operating room. After induction of anesthesia by the anesthesiology team the patient was placed in dorsolithotomy position. The genitals were prepped and draped in usual sterile fashion. I went into the bladder with a 21 Wolof rigid cystourethroscope through the urethra. Upon entering the bladder I inspected the trigone the left and right ureteral orifice and the bladder itself. I removed the current stent on the right side. I then cannulated the Right ureteral orifice and advanced a 0.038 Glidewire up into the kidney. Then over the Glidewire I advanced a 5 Fr Ureteral catheter and performed a retrograde pyelogram with about 10cc of contrast, to delineate the anatomy and identify the stone location. I went in with the flexible 7.5fr ureteroscope over the wire and up the ureter without any difficulty and located the stone. Then with the 7.5Fr utereroscope in place and I pulled out the guidewire and then through the ureteroscope I engage the stone with laser lithotripsy using a 270miron laser fiber with Thulium laser until the stone was lasered into tiny little pieces that should pass on their own. he had 2 stones one was in the lower pole pelvis very difficult to reach but I did laser the stone completely and then he had another large fragment upper pole of the right kidney and this was lasered completely into dust. I then backed out of the ureter, no stent was placed, I then drained the patient's bladder and the cystoscope was removed and the patient was taken back to the recovery room in good position. The patient was given discharge instructions to call the office for follow up appointment. Surgeon: Chris Paris Type of Anesthesia: General Drains: none Estimated Blood Loss (mL): 0 Complications none Admit VTE Documentation VTE Present on Admission: No VTE Mechan Device Prophylaxis: SCD's VTE Pharm Prophylaxis ordered?: No
[2024-02-17] MEDS: Cefazolin 3 GM in 0.9% Normal Saline (100mL Bag) 100 ML IV (09:55)
[2024-02-17] MEDS: Ketorolac 15 MG/ML Vial IV (11:03)
--- NOTE | 2024-02-17 11:09 | PCM.POST.ANE ---
Anesthesia: Postop Eval I Current Vital Signs Temperature: 97.1 F Pulse Rate: 66 Blood Pressure: 161/88 Respiratory Rate: 16 Pulse Ox: 97 Oxygen Delivery Method: Room Air Assessment Airway patent: Yes Spontaneous unlabored respirations: Yes Mental status: Awake, Calm and Confused nausea: No Vomiting: No Anesthesia Complication: No Fluid Hydration Crystalloid volume administer (ml): 200 Total IV fluid infused: 200 Progress Note Anesthesia document: Postop Eval 1 completed: Yes
--- NOTE | 2024-02-17 16:38 | POSTOPAN2_ITS ---
Anesthesia Postop Eval I Sum Postop Eval Completion status Anesthesia document: Postop Eval 1 completed: Yes Anesthesia Postop Eval I Summary Anesthesia Postop Eval I Summary: Anesthesia Postop Eval I: Assessment Summary Airway patent Yes 02/17/24 11:10 [email or web address] Spontaneous unlabored Yes 02/17/24 11:10 [email or web address] respirations Mental status Awake,Calm, 02/17/24 11:10 [email or web address] Confused nausea No 02/17/24 11:10 [email or web address] Vomiting No 02/17/24 11:10 [email or web address] Anesthesia Postop Eval I: Fluid Summary Crystalloid volume administer 200 02/17/24 11:10 [email or web address] [email or web address] (ml) Colloids volume administered ( ml) Blood Product volume administered (ml) Total IV fluid infused 200 02/17/24 11:10 [email or web address] Anesthesia Postop Eval I: Summary Notes Anesthesia Complication No 02/17/24 11:10 [email or web address] Anesthesia Complication Comment: Post-operative progress note Anesthesia: Postop Eval II Evaluation Mental status: Awake and Calm Pain Level: 1 nausea: No Vomiting: No Complications Anesthesia Complication: No
--- NOTE | 2024-02-17 16:38 | PCM.POSTANE2 ---
Anesthesia Postop Eval I Sum Postop Eval Completion status Anesthesia document: Postop Eval 1 completed: Yes Anesthesia Postop Eval I Summary Anesthesia Postop Eval I Summary: Anesthesia Postop Eval I: Assessment Summary Airway patent Yes 02/17/24 11:10 [email or web address] Spontaneous unlabored Yes 02/17/24 11:10 [email or web address] respirations Mental status Awake,Calm, 02/17/24 11:10 [email or web address] Confused nausea No 02/17/24 11:10 [email or web address] [email or web address] Vomiting No 02/17/24 11:10 [email or web address] Anesthesia Postop Eval I: Fluid Summary Crystalloid volume administer 200 02/17/24 11:10 [email or web address] (ml) Colloids volume administered ( ml) Blood Product volume administered (ml) Total IV fluid infused 200 02/17/24 11:10 [email or web address] [email or web address] Anesthesia Postop Eval I: Summary Notes Anesthesia Complication No 02/17/24 11:10 [email or web address] Anesthesia Complication Comment: Post-operative progress note Anesthesia: Postop Eval II Evaluation Mental status: Awake and Calm Pain Level: 1 nausea: No Vomiting: No Complications Anesthesia Complication: No
== END 2024-02-17 11:53 | disposition home or self-care (01) ==
LOC: SDC 08:18 → AC 08:19
PROVIDERS: PCP Internal Medicine; Referring Provider Urology; Visit Provider Urology
PROC: 0TJ98ZZ Inspection of Ureter, Via Natural or Artificial Opening Endoscopic (ICD-10-PCS; CPT 52352; principal; 2024-02-17 10:15)
DX: N20.1 Calculus of ureter (principal); I10 Essential (primary) hypertension; I25.10 Atherosclerotic heart disease of native coronary artery without angina pectoris; K21.9 Gastro-esophageal reflux disease without esophagitis; M10.9 Gout, unspecified; G47.00 Insomnia, unspecified; E78.00 Pure hypercholesterolemia, unspecified; R73.03 Prediabetes; H26.9 Unspecified cataract; K42.9 Umbilical hernia without obstruction or gangrene; K64.9 Unspecified hemorrhoids; J45.909 Unspecified asthma, uncomplicated; G47.33 Obstructive sleep apnea (adult) (pediatric); Z79.82 Long term (current) use of aspirin; Z79.51 Long term (current) use of inhaled steroids; Z95.5 Presence of coronary angioplasty implant and graft
CPT/HCPCS: 52353; 00918; J7120; C1769; J2405

== ENCOUNTER 2024-02-26 12:53 | Outpatient (CLI) | payer MEDICARE, BC, SELFPAY ==
[2023-10-21 16:26] VITALS: BMI 40.8
[2024-02-26 13:03] VITALS: BP 137/69; PULSE 79; RESP 16; TEMP 35.9; O2SAT 94
[2024-02-26] MEDS: tezepelumab-ekko 210 MG/1.91 ML SYRINGE SC (13:15)
== END 2024-02-26 23:59 | disposition home or self-care (01) ==
LOC: MEDOUTP 12:53
PROVIDERS: PCP Internal Medicine
DX: J45.50 Severe persistent asthma, uncomplicated (principal)
CPT/HCPCS: 96372; J2356

== ENCOUNTER → 2024-03-17 | Outpatient (CLI) | payer MEDICARE, BC, SELFPAY ==
[2023-10-21 16:26] VITALS: BMI 40.8
[2024-03-17 12:49] LABS: PSA,Total - Annual Screen 0.27 ng/mL (0.00-4.00)
== END | disposition home or self-care (01) ==
LOC: LAB 10:52
PROVIDERS: PCP Internal Medicine; Referring Provider Urology; Visit Provider Urology
DX: Z12.5 Encounter for screening for malignant neoplasm of prostate (principal)
CPT/HCPCS: 36415; 84153; G0103

== ENCOUNTER 2024-03-25 12:14 | Outpatient (CLI) | payer MEDICARE, BC, SELFPAY ==
[2023-10-21 16:26] VITALS: BMI 40.8
[2024-03-25 12:26] VITALS: BP 136/70; PULSE 87; RESP 16; TEMP 36.2; O2SAT 93; BMI 42.5
[2024-03-25] MEDS: tezepelumab-ekko 210 MG/1.91 ML SYRINGE SC (12:44)
== END 2024-03-25 23:59 | disposition home or self-care (01) ==
LOC: MEDOUTP 12:14
PROVIDERS: PCP Internal Medicine; Referring Provider Allergy & Immunology; Visit Provider Allergy & Immunology
DX: J45.50 Severe persistent asthma, uncomplicated (principal)
CPT/HCPCS: 96372; J2356

== ENCOUNTER 2024-04-09 16:21 | Emergency (ER) | payer MEDICARE, BC, SELFPAY ==
[2023-10-21 16:26] VITALS: BMI 40.8
[2024-04-09 16:22] VITALS: BP 130/74; PULSE 99; RESP 20; TEMP 36.4; O2SAT 94
--- NOTE | 2024-04-09 16:36 | RAD_ITS ---
STUDY: X-RAY CHEST REASON FOR EXAM: Male, 73 years old. PRODUCTIVE COUGH TECHNIQUE: PA and lateral views of the chest. COMPARISON: January 11, 2023 FINDINGS: Stable cervical spine hardware. No visualized consolidation or pulmonary edema. Mild hyperinflation and cystic emphysematous changes of the lungs. The lungs are clear and expanded. There is no demonstrated pleural abnormality. Normal size heart. Normal mediastinum and richard. Normal visualized pulmonary arteries. There is atherosclerotic tortuosity of the aortic arch and descending thoracic aorta. There are diffuse degenerative changes of the visualized thoracic spine. Normal visualized ribs, clavicles, and shoulders. There is no demonstrated abnormality of the visualized soft tissue structures of the upper abdomen. RAD/Chest PA and Lateral IMPRESSION: COPD Electronically Signed: Rob Bruner MD at 17:22 EDT ,
[2024-04-09 16:37] VITALS: BMI 43.6
[2024-04-09 16:38] VITALS: TEMP 36.6
[2024-04-09] MEDS: predniSONE 20 MG Tablet 60 MG PO (16:52)
--- NOTE | 2024-04-09 16:57 | ED.VIS.DYS ---
HPI History of Present Illness Chief Complaint: Cough Detail of Chief Complaint: Upper respiratory symptoms started a week ago. Productive cough that start Informant: patient Onset/Context/Timing Onset: Today (Productive cough) and Weeks (Respiratory symptoms) Context: sudden Timing: Continuous and Waxes and wanes Quality: Positive for Dyspnea on exertion and Wheezing; Negative for Orthopnea or PND Current Severity: Mild Maximum Severity: Moderate Worsened by: Nothing Relieved by: Nothing Associated Symptoms cough, post nasal drip, sore throat and clear sputum; Negative for rhinorrhea, ear pain, fever, subjective, chills, sweats, white sputum or yellow sputum Chest Pain: Positive for None Narrative Narrative: Patient is a 73-year-old male. He has had multiple episodes of pneumonia. Since 2021 he has been on a low-dose of azithromycin daily. Has not had pneumonia since. Patient denies fever or chills. He denies headache, visual, ocular auditory symptoms. He does endorse postnasal drainage. He does have a cough that is productive and started today. He does endorse wheezing, dyspnea with activity. Denies chest comfort any type. He denies leg pain, swelling discoloration. He denies history of PE or DVT. He denies abdominal pain, nausea, vomiting or diarrhea. PE Risk Factors: Negative for Cancer, OCP + Smoking + > 35, Prior DVT or PE, Recent immobilization, Recent surgery or Recent travel Prior similar symptoms: Yes (Asthma pneumonia) Recent Illness/Hospitalization: No PFSH PFS Medical History Kidney stone on left side Wears hearing aid Wears glasses Alcohol use High cholesterol Injury of head and neck Gastric reflux Leg cramps History of edema Cardiology follow-up encounter History of echocardiogram History of stress test Hypertension Non-smoker CPAP (continuous positive airway pressure) dependence COVID-19 Multiple ecchymoses of both upper arms Skin tear of right elbow without complication Hemorrhoids Cataracts, bilateral Atherosclerosis of coronary artery of [place] heart without angina pectoris History of left heart catheterization Essential hypertension Shortness of breath Bilateral lower extremity edema Cataract Asthmatic bronchitis with acute exacerbation URI (upper respiratory infection) Cough Flu vaccine need Chronic cough Hyperlipidemia Asthma Obesity (BMI 30-39.9) Easy bruising Fatigue Hemorrhoids Arthritis Eosinophilia PND (post-nasal drip) Asthma Epithelial inclusion cyst Pre-diabetes Umbilical hernia Morbid obesity GERD (gastroesophageal reflux disease) BPH (benign prostatic hyperplasia) Chronic sinusitis DDD (degenerative disc disease) Recurrent kidney stones Gout Insomnia CARMELLA (obstructive sleep apnea) Home Medications ?Medication ?Instructions ?Recorded ?Last Taken ?Type multivitamin 1 tab PO DAILY 09/19/20 Unknown History PEP device #1 ea 06/12/22 Unknown Rx trazodone 100 mg tablet 100 mg PO QHS PRN insomnia 90 days 07/16/22 Unknown Rx #40 tabs albuterol sulfate 90 mcg/actuation 2 puff inhalation Q4H PRN 07/17/22 02/17/24 07:30 Rx aerosol inhaler (Ventolin HFA) shortness of breath or wheezing #18 grams albuterol sulfate 2.5 mg/3 mL 2.5 mg (3 mL) inhalation .COMPLEX 09/24/22 02/17/24 07:30 Rx (0.083 %) solution for nebulization Sob &/Or Wheezing #180 mL ipratropium bromide 42 mcg (0.06 1 spray intranasal BID PRN 11/12/22 Unknown History %) nasal spray allergies tezepelumab-ekko 210 mg/1.91 mL 210 mg (1.91 mL) subcut Q4W #1.91 11/28/22 Unknown Rx (110 mg/mL) subcutaneous pen mL injector (Tezspire) loratadine 10 mg tablet 10 mg PO DAILY #90 tabs 02/02/23 Unknown Rx rosuvastatin 5 mg tablet 2.5 mg (1/2 x 5 mg) PO QODAY #90 07/27/23 Unknown Rx tabs fluticasone propionate 230 2 puff inhalation Q12H #3 ea 08/24/23 Unknown Rx mcg-salmeterol 21 mcg/actuation HFA inhaler (Advair HFA) fluticasone propionate 50 2 spray intranasal DAILY #3 ea 09/10/23 Unknown Rx mcg/actuation nasal spray,suspension irbesartan 150 mg tablet 150 mg PO DAILY #90 tabs 09/10/23 Unknown Rx allopurinol 300 mg tablet 300 mg PO DAILY #90 tabs 10/15/23 Unknown Rx lansoprazole 30 mg capsule,delayed 30 mg PO DAILY #90 caps 10/15/23 02/17/24 07:30 Rx release (Prevacid) montelukast 10 mg tablet 10 mg PO QPM #90 tabs 10/15/23 Unknown Rx aspirin 81 mg chewable tablet 81 mg PO .every other day 02/08/24 02/11/24 History ibuprofen 600 mg tablet 600 mg PO Q6H PRN fever or pain 02/08/24 Unknown Rx #20 tabs tamsulosin 0.4 mg capsule 0.4 mg PO QHS 02/15/24 Unknown History azithromycin 250 mg tablet 250 mg PO DAILY 02/25/24 Unknown History albuterol sulfate 90 mcg/actuation 2 puff inhalation Q4H PRN PRN 04/09/24 Unknown Rx aerosol inhaler (Ventolin HFA) Wheezing ##1 prednisone 20 mg tablet 60 mg (3 x 20 mg) PO DAILY #15 04/09/24 Unknown Rx TABLETS Allergy/AdvReac Type Severity Reaction Status Date / Time lisinopril AdvReac Intermediate cough Verified 04/09/24 16:22 simvastatin AdvReac Intermediate elevated Verified 04/09/24 16:22 liver enzymes Family History Father Cancer Bone Marrow Surgical History Status post laser lithotripsy of ureteral calculus Hx of cervical discectomy Hx of cystoscopy History of coronary artery stent placement History of lumbar discectomy History of uvulectomy History of tonsillectomy History of cataract extraction History of coronary artery stent placement (08/14/22) History of cataract extraction History of tonsillectomy History of uvulectomy History of orthopedic surgery S/P correction of deviated nasal septum Social History household members: spouse housing: house Smoking Status: Former smoker alcohol intake: current alcohol intake frequency: a few times a month Alcohol type: beer and wine substance use type: does not use what type of physical activity do you participate in: none EXAM Physical Exam Const Vital Signs: 04/09/24 16:22 04/09/24 16:25 04/09/24 16:38 Temperature 97.6 F L 97.8 F Temperature Source Temporal Oral Pulse Rate 99 Respiratory Rate 20 H Respiratory Effort Short of Breath Respiratory Depth Normal Respiratory Pattern Tachypnea Blood Pressure 130/74 H Blood Pressure Mean 92 Pulse Ox 94 Oxygen Delivery Method Room Air Room Air 04/09/24 17:08 Temperature Temperature Source Pulse Rate 91 Respiratory Rate 20 H Respiratory Effort Respiratory Depth Respiratory Pattern Normal Blood Pressure Blood Pressure Mean Pulse Ox Oxygen Delivery Method Positive well nourished and well developed Constitutional Narrative: Patient is in no respiratory distress. General Appearance ED: well developed and NAD; Negative for pallor HEENT Reports moist mucous membranes HEENT Narrative: Head is atraumatic and normocephalic. Ears normal. Nares patent. Posterior pharynx is normal. Eyes PERRL and EOMs intact bilaterally General Eye ED: Negative for pale conjunctiva or scleral icterus Neck Neck Narrative: Trachea is midline. There is no dysphonia or stridor. Resp normal respiratory effort and No clear to auscultation bilaterally Resp Narrative: Expiratory phase is increased. There is decreased air movement. Auscultation: wheezes expiratory wheezes, scattered wheezes and throughout Cardio regular rate, regular rhythm, S1 normal heart sound, S2 normal heart sound and no murmurs GI non-tender, non-distended and no masses Palpation: soft Extremity normal to inspection General Extremety ED: Negative for edema or tenderness General Extremity: Negative for edema Neuro oriented x3 and CN's II-XII intact bilaterally Sensorium / Orientation: alert Psych mental status grossly normal Skin no wounds and skin turgor normal General Skin Exam: Negative for jaundice or pallor Lesions: no lesions Rashes: no rashes MDM MDM MDM Narrative Medical decision making narrative: Differential diagnosis would include pneumonia, exacerbation of asthma, upper respiratory infection exacerbating asthma. Patient has failed albuterol and prednisone and chest x-ray was obtained. History & Record Review Additional record(s) reviewed:: Prior ED visit (Seen February 08, 2024 for renal/ureteral calculus. He was seen in May 2022 for exacerbation of asthma. He was seen December 2020 for asthma.) and Prior labs Radiography Chest X-Ray - ED: 2 View, Read by ED Physician, Unchanged, Normal, Heart, Lungs, Mediastinum, Bony Structures and No Acute Disease Treatment and Re-Evaluation :: Patient was reassessed at 1717. Patient is breathing much easily. He has increased air movement. Plan is discharge with prescription for albuterol metered-dose inhaler with spacer and prednisone. Discharge Plan Triage Chief Complaint: Cough ED Provider: Eduard Diaz Dx/Rx/DC Orders Clinical Impression: Acute exacerbation of asthma with allergic rhinitis, GERD (gastroesophageal reflux disease), BMI 40.0-44.9, adult, Bilateral lower extremity edema, Essential hypertension, CAD (coronary artery disease), Upper respiratory infection with cough and congestion Instructions: ED Asthma, Acute (Adult) Prescriptions: New prednisone 20 mg tablet 60 mg PO DAILY Qty: 15 0RF albuterol sulfate [Ventolin HFA] 90 mcg/actuation HFA aerosol inhaler 2 puff inhalation Q4H PRN PRN (Reason: Wheezing) Qty: 1 0RF No Action multivitamin Tablet 1 tab PO DAILY (DME) PEP device See Rx Instructions .ROUTE .MEDSUPPLY Qty: 1 0RF Rx Instructions: with training Tezspire 210 mg/1.91 mL (110 mg/mL) pen injector 210 mg subcut Q4W Qty: 1.91 12RF Patient Comments: last taken January 26. ipratropium bromide 42 mcg (0.06 %) spray,non-aerosol 1 spray intranasal BID PRN (Reason: allergies) Rx Instructions: administer into each nostril azithromycin 250 mg tablet 250 mg PO DAILY Rx Instructions: will change to 3xWeek on April 05 ibuprofen 600 mg tablet 600 mg PO Q6H PRN (Reason: fever or pain) Qty: 20 0RF aspirin 81 mg Tablet,Chewable 81 mg PO .every other day Patient Comments: every other day tamsulosin 0.4 mg capsule 0.4 mg PO QHS trazodone 100 mg tablet 100 mg PO QHS PRN (Reason: insomnia) 90 Days Qty: 40 1RF albuterol sulfate [Ventolin HFA] 90 mcg/actuation HFA aerosol inhaler 2 puff inhalation Q4H PRN (Reason: shortness of breath or wheezing) Qty: 18 6RF albuterol sulfate 2.5 mg /3 mL (0.083 %) solution for nebulization 2.5 mg inhalation .COMPLEX Qty: 180 11RF Rx Instructions: 2.5 mg inhaled BID; J45.9 Asthma loratadine 10 mg tablet 10 mg PO DAILY Qty: 90 3RF rosuvastatin 5 mg tablet 2.5 mg PO QODAY Qty: 90 3RF Advair HFA 230-21 mcg/actuation HFA aerosol inhaler 2 puff inhalation Q12H Qty: 3 3RF fluticasone propionate 50 mcg/actuation spray,suspension 2 spray intranasal DAILY Qty: 3 3RF irbesartan 150 mg tablet 150 mg PO DAILY Qty: 90 3RF allopurinol 300 mg tablet 300 mg PO DAILY Qty: 90 3RF lansoprazole [Prevacid] 30 mg capsule,delayed release(DR/EC) 30 mg PO DAILY Qty: 90 3RF montelukast 10 mg tablet 10 mg PO QPM Qty: 90 3RF Primary Care Provider: Digna Ureña Referrals: Digna Ureña MD [Primary Care Provider] - 3-5 Days if not improving Activity Restrictions/Additional Instructions: 1. 2 puffs of inhaler every 2-4 hours while awake for the next 3 days then every 4-6 hours as needed for wheezing. 2. Take prednisone as directed until gone Print Language: Latvian Disposition Disposition: Home, Self Care
[2024-04-09] MEDS: Albuterol 2.5 MG/3 ML VIAL.NEB. INHALATION ×3 (17:01→17:02)
[2024-04-09 17:08] VITALS: PULSE 91; RESP 20
[2024-04-09 17:29] VITALS: BP 153/71; PULSE 92; RESP 14; TEMP 37.1; O2SAT 97
== END 2024-04-09 17:33 | disposition home or self-care (01) ==
PROVIDERS: Emergency Provider Emergency Medicine; PCP Internal Medicine; Visit Provider Emergency Medicine
DX: J45.901 Unspecified asthma with (acute) exacerbation (principal); J06.9 Acute upper respiratory infection, unspecified; I25.10 Atherosclerotic heart disease of native coronary artery without angina pectoris; I10 Essential (primary) hypertension; E78.00 Pure hypercholesterolemia, unspecified; J30.9 Allergic rhinitis, unspecified; R60.0 Localized edema; K21.9 Gastro-esophageal reflux disease without esophagitis; Z79.2 Long term (current) use of antibiotics; Z79.51 Long term (current) use of inhaled steroids; Z87.01 Personal history of pneumonia (recurrent); Z79.82 Long term (current) use of aspirin; Z87.891 Personal history of nicotine dependence
CPT/HCPCS: 71046; 94640; 99283

== ENCOUNTER 2024-04-22 09:51 | Outpatient (CLI) | payer MEDICARE, BC, SELFPAY ==
[2023-10-21 16:26] VITALS: BMI 40.8
[2024-04-22 10:00] VITALS: BP 126/73; PULSE 89; RESP 18; TEMP 36
[2024-04-22] MEDS: tezepelumab-ekko 210 MG/1.91 ML SYRINGE SC (10:06)
== END 2024-04-22 23:59 | disposition home or self-care (01) ==
PROVIDERS: PCP Internal Medicine; Referring Provider Allergy & Immunology; Visit Provider Allergy & Immunology
DX: J45.50 Severe persistent asthma, uncomplicated (principal)
CPT/HCPCS: 96372; J2356

== ENCOUNTER 2024-05-20 09:55 | Outpatient (CLI) | payer MEDICARE, BC, SELFPAY ==
[2023-10-21 16:26] VITALS: BMI 40.8
[2024-05-20 10:18] VITALS: BP 155/67; PULSE 88; RESP 16; TEMP 36.3; O2SAT 94
[2024-05-20] MEDS: tezepelumab-ekko 210 MG/1.91 ML SYRINGE SC (10:29)
== END 2024-05-20 23:59 | disposition home or self-care (01) ==
LOC: MEDOUTP 09:55
PROVIDERS: PCP Internal Medicine; Referring Provider Allergy & Immunology; Visit Provider Allergy & Immunology
DX: J45.50 Severe persistent asthma, uncomplicated (principal)
CPT/HCPCS: 96372; J2356

== ENCOUNTER → 2024-05-31 | Outpatient (CLI) | payer MEDICARE, BC, SELFPAY ==
[2023-10-21 16:26] VITALS: BMI 40.8
[2024-05-31] MEDS: SODIUM CHLORIDE INHALATION (09:31)
== END | disposition home or self-care (01) ==
LOC: PSN 09:22
PROVIDERS: PCP Internal Medicine
DX: J47.9 Bronchiectasis, uncomplicated (principal)
CPT/HCPCS: 94640

== ENCOUNTER 2024-06-17 09:37 | Outpatient (CLI) | payer MEDICARE, BC, SELFPAY ==
[2023-10-21 16:26] VITALS: BMI 40.8
[2024-06-17 09:40] VITALS: BP 130/60; PULSE 77; RESP 16; TEMP 36.6; O2SAT 97
[2024-06-17] MEDS: tezepelumab-ekko 210 MG/1.91 ML SYRINGE SC (09:53)
== END 2024-06-17 23:59 | disposition home or self-care (01) ==
LOC: MEDOUTP 09:37
PROVIDERS: PCP Internal Medicine; Referring Provider Allergy & Immunology; Visit Provider Allergy & Immunology
DX: J45.50 Severe persistent asthma, uncomplicated (principal)
CPT/HCPCS: 96372; J2356

== ENCOUNTER 2024-07-15 09:23 | Outpatient (CLI) | payer MEDICARE, BC, SELFPAY ==
[2023-10-21 16:26] VITALS: BMI 40.8
[2024-07-15] MEDS: tezepelumab-ekko 210 MG/1.91 ML SYRINGE SC (09:53)
[2024-07-15 09:57] VITALS: BP 117/64; PULSE 67; RESP 14; TEMP 36.1; O2SAT 94; BMI 43.0
== END 2024-07-15 23:59 | disposition home or self-care (01) ==
LOC: MEDOUTP 09:26
PROVIDERS: PCP Internal Medicine; Referring Provider Allergy & Immunology; Visit Provider Allergy & Immunology
DX: J45.50 Severe persistent asthma, uncomplicated (principal)
CPT/HCPCS: 96372; J2356

== ENCOUNTER 2024-08-12 10:04 | Outpatient (CLI) | payer MEDICARE, BC, SELFPAY ==
[2023-10-21 16:26] VITALS: BMI 40.8
[2024-08-12 10:26] VITALS: BP 148/78; PULSE 85; RESP 16; TEMP 36.2; O2SAT 95; BMI 43.0
[2024-08-12] MEDS: tezepelumab-ekko 210 MG/1.91 ML SYRINGE SC (10:30)
== END 2024-08-12 23:59 | disposition home or self-care (01) ==
LOC: MEDOUTP 10:05
PROVIDERS: PCP Internal Medicine; Referring Provider Allergy & Immunology; Visit Provider Allergy & Immunology
DX: J45.50 Severe persistent asthma, uncomplicated (principal)
CPT/HCPCS: 96372; J2356

== ENCOUNTER 2024-09-09 10:08 | Outpatient (CLI) | payer MEDICARE, BC, SELFPAY ==
[2023-10-21 16:26] VITALS: BMI 40.8
[2024-09-09 10:48] VITALS: BP 142/61; PULSE 78; RESP 16; TEMP 36.1; O2SAT 97; BMI 42.3
[2024-09-09] MEDS: tezepelumab-ekko 210 MG/1.91 ML SYRINGE SC (11:03)
== END 2024-09-09 23:59 | disposition home or self-care (01) ==
LOC: MEDOUTP 10:08
PROVIDERS: PCP Internal Medicine; Referring Provider Allergy & Immunology; Visit Provider Allergy & Immunology
DX: J45.50 Severe persistent asthma, uncomplicated (principal)
CPT/HCPCS: 96372; J2356

== ENCOUNTER 2024-10-07 10:04 | Outpatient (CLI) | payer MEDICARE, BC, SELFPAY ==
[2023-10-21 16:26] VITALS: BMI 40.8
[2024-10-07 10:09] VITALS: BP 148/69; PULSE 95; RESP 18; TEMP 35.8; O2SAT 95; BMI 42.6
[2024-10-07] MEDS: tezepelumab-ekko 210 MG/1.91 ML SYRINGE SC (10:11)
== END 2024-10-07 23:59 | disposition home or self-care (01) ==
LOC: MEDOUTP 10:04
PROVIDERS: PCP Internal Medicine; Referring Provider Allergy & Immunology; Visit Provider Allergy & Immunology
DX: J45.50 Severe persistent asthma, uncomplicated (principal)
CPT/HCPCS: 96372; J2356

== ENCOUNTER 2024-11-04 10:00 | Outpatient (CLI) | payer MEDICARE, BC, SELFPAY ==
[2023-10-21 16:26] VITALS: BMI 40.8
[2024-11-04 10:09] VITALS: BP 157/73; PULSE 84; RESP 16; TEMP 35.7; O2SAT 93; BMI 43.0
[2024-11-04] MEDS: tezepelumab-ekko 210 MG/1.91 ML SYRINGE SC (10:10)
== END 2024-11-04 23:59 | disposition home or self-care (01) ==
LOC: MEDOUTP 10:00
PROVIDERS: PCP Internal Medicine; Referring Provider Allergy & Immunology; Visit Provider Allergy & Immunology
DX: J45.50 Severe persistent asthma, uncomplicated (principal)
CPT/HCPCS: 96372; J2356

== ENCOUNTER 2024-12-02 10:34 | Outpatient (CLI) | payer MEDICARE, BC, SELFPAY ==
[2023-10-21 16:26] VITALS: BMI 40.8
[2024-12-02 11:14] VITALS: BP 134/66; PULSE 88; RESP 16; TEMP 36.3; O2SAT 93
[2024-12-02] MEDS: tezepelumab-ekko 210 MG/1.91 ML SYRINGE SC (11:18)
== END 2024-12-02 23:59 | disposition home or self-care (01) ==
LOC: MEDOUTP 10:34
PROVIDERS: PCP Student in an Organized Health Care Education/Training Program; Referring Provider Allergy & Immunology; Visit Provider Allergy & Immunology
DX: J45.50 Severe persistent asthma, uncomplicated (principal)
CPT/HCPCS: 96372; J2356

== ENCOUNTER → 2024-12-16 | Outpatient (CLI) | payer MEDICARE, BC, SELFPAY ==
[2023-10-21 16:26] VITALS: BMI 40.8
--- NOTE | 2024-12-16 07:39 | ECHOD_ITS ---
Reason For Study Reason For Study: SOB Procedure This was a 2D Doppler, Color Flow transthoracic echocardiogram. The study was technically difficult. Contrast injection was performed. Exam performed in department. Left Ventricle Normal LV size. The left ventricular ejection fraction is 60 %. Stage 1 diastolic dysfunction. No regional wall motion abnormalities noted. Right Ventricle Normal RV size. Normal systolic function. Atria The left and right atria are normal. Mitral Valve Normal mitral valve. Tricuspid Valve The tricuspid valve is not well visualized. Aortic Valve Trisinus/trileaflet aortic valve. Pulmonic Valve Normal pulmonic valve. Great Vessels Normal aortic root. The pulmonary artery is normal size. Inferior vena cava collapse with respiration. Pericardium/Pleural No pericardial effusion. Medication 22 gauge I.V. with prn adaptor inserted into right arm. Diluted definity 1ml given slow IV push to enhance endocardial definition. MMode/2D Measurements & Calculations LVIDd: 5.0 cm IVSd: 1.1 cm LVOT diam: 2.0 cm LVIDs: 3.8 cm LVPWd: 1.3 cm FS: 23.1 % LVOT area: 3.2 cm2 Ao root diam: 4.1 cm LAV(MOD-bp): 35.6 ml LVAd ap4: 39.7 cm2 LAV(MOD-bp) Indexed: 14.4 ml/m2 LVLd ap4: 9.3 cm LAV(MOD-sp2): 42.2 ml EDV(MOD-sp4): 138.8 ml LAV(MOD-sp4): 33.3 ml EDV(sp4-el): 143.8 ml LVAs ap4: 22.6 cm2 LVLs ap4: 7.8 cm ESV(MOD-sp4): 52.9 ml ESV(sp4-el): 55.3 ml EF(MOD-sp4): 61.9 % EF(sp4-el): 61.5 % SV(MOD-sp4): 85.9 ml SV(sp4-el): 88.5 ml LA A4 area: 14.0 cm2 SI(MOD-sp4): 34.8 ml/m2 LA dimension(2D): 2.8 cm RA A4 area: 11.2 cm2 Time Measurements MV dec time: 0.25 sec Doppler Measurements & Calculations MV E max raji: 68.9 cm/sec Lat Peak E' Raji: 11.6 cm/sec Med Peak E' Raji: 12.0 cm/sec MV A max raji: 92.5 cm/sec E/E' lat: 5.9 E/E' med: 5.7 MV E/A: 0.74 MV V2 max: 98.2 cm/sec MV dec slope: 280.4 cm/sec2 Ao V2 max: 117.7 cm/sec MV max P.9 mmHg Ao max P.6 mmHg MV V2 mean: 57.8 cm/sec Ao V2 mean: 87.2 cm/sec MV mean P.5 mmHg Ao mean P.4 mmHg MV V2 VTI: 37.5 cm Ao V2 VTI: 31.1 cm MVA(VTI): 2.1 cm2 AV (velocity ratio): 0.79 BARB(I,D): 2.5 cm2 BARB(V,D): 2.4 cm2 LV V1 max: 89.1 cm/sec SV(LVOT): 78.6 ml PA V2 max: 76.7 cm/sec LV V1 max P.2 mmHg LV V1 mean P.9 mmHg LV V1 mean: 63.6 cm/sec LV V1 VTI: 24.7 cm ECHO/Echo Complete Interpretation Summary The left ventricular ejection fraction is 60 %. Normal LV size. No regional wall motion abnormalities noted. Stage 1 diastolic dysfunction. Contrast injection was performed. Ordering Physician: Zbigniew Arrington Referring Physician: Zbigniew Arrington Performed By: Felicia Jones RCS
== END | disposition home or self-care (01) ==
LOC: CVS 07:39
PROVIDERS: PCP Student in an Organized Health Care Education/Training Program; Referring Provider Internal Medicine Cardiovascular Disease; Visit Provider Internal Medicine Cardiovascular Disease
DX: R06.02 Shortness of breath (principal)
CPT/HCPCS: 93306; Q9957; A4216

== ENCOUNTER 2024-12-30 10:22 | Outpatient (CLI) | payer MEDICARE, BC, SELFPAY ==
[2023-10-21 16:26] VITALS: BMI 40.8
[2024-12-30 10:38] VITALS: BP 141/64; PULSE 77; RESP 16; TEMP 36.3; O2SAT 95; BMI 43.0
[2024-12-30] MEDS: tezepelumab-ekko 210 MG/1.91 ML SYRINGE SC (10:46)
== END 2024-12-30 23:59 | disposition home or self-care (01) ==
LOC: MEDOUTP 10:22
PROVIDERS: PCP Student in an Organized Health Care Education/Training Program; Referring Provider Allergy & Immunology; Visit Provider Allergy & Immunology
DX: J45.50 Severe persistent asthma, uncomplicated (principal)
CPT/HCPCS: 96372; J2356

== ENCOUNTER 2025-01-27 09:53 | Outpatient (CLI) | payer MEDICARE, BC, SELFPAY ==
[2023-10-21 16:26] VITALS: BMI 40.8
[2025-01-27 10:42] VITALS: BP 121/72; PULSE 70; RESP 16; TEMP 36.1; O2SAT 94; BMI 43.4
== END 2025-01-27 23:59 | disposition home or self-care (01) ==
LOC: MEDOUTP 09:53
PROVIDERS: PCP Student in an Organized Health Care Education/Training Program; Referring Provider Allergy & Immunology; Visit Provider Allergy & Immunology
DX: J45.50 Severe persistent asthma, uncomplicated (principal)
CPT/HCPCS: 96372; J2356

== ENCOUNTER → 2025-02-08 | Outpatient (CLI) | payer MEDICARE, BC, SELFPAY ==
[2023-10-21 16:26] VITALS: BMI 40.8
[2025-02-08 10:39] LABS: AST(SGOT) 24 U/L (<=37); Alanine Aminotransfer ALT/SGPT 30 U/L (<=46); Albumin, Serum 4.2 g/dL (3.4-4.8); Alkaline Phosphatase 92 U/L (40-129); Bilirubin, Direct 0.28 mg/dL (0.00-0.30); Cholesterol 130 mg/dL (<=200); Globulin 2.4 g/dL (2.2-4.2); Low Density Lipoprotein Calc. 64 mg/dL; Triglycerides 71 mg/dL; Very Low Density Lipoprotein 14 mg/dL (5-40); cholesterol:hdl ratio screen 2.50
== END | disposition home or self-care (01) ==
LOC: LAB 09:37
PROVIDERS: PCP Student in an Organized Health Care Education/Training Program; Referring Provider Nurse Practitioner Family; Visit Provider Nurse Practitioner Family
DX: E78.00 Pure hypercholesterolemia, unspecified (principal)
CPT/HCPCS: 36415; 80061; 80076

== ENCOUNTER 2025-02-24 09:55 | Outpatient (CLI) | payer MEDICARE, BC, SELFPAY ==
[2023-10-21 16:26] VITALS: BMI 40.8
[2025-02-24 10:13] VITALS: BP 144/74; PULSE 77; RESP 16; TEMP 35.9; O2SAT 95; BMI 43.0
== END 2025-02-24 23:59 | disposition home or self-care (01) ==
LOC: MEDOUTP 09:55
PROVIDERS: PCP Student in an Organized Health Care Education/Training Program; Referring Provider Allergy & Immunology; Visit Provider Allergy & Immunology
DX: J45.50 Severe persistent asthma, uncomplicated (principal)
CPT/HCPCS: 96372; J2356

== ENCOUNTER 2025-03-24 10:12 | Outpatient (CLI) | payer MEDICARE, BC, SELFPAY ==
[2023-10-21 16:26] VITALS: BMI 40.8
[2025-03-24 10:35] VITALS: BP 149/75; PULSE 71; RESP 16; TEMP 35.8; O2SAT 94; BMI 43.0
== END 2025-03-24 23:59 | disposition home or self-care (01) ==
LOC: MEDOUTP 10:12
PROVIDERS: PCP Student in an Organized Health Care Education/Training Program; Referring Provider Allergy & Immunology; Visit Provider Allergy & Immunology
DX: J45.50 Severe persistent asthma, uncomplicated (principal)
CPT/HCPCS: 96372; J2356

== ENCOUNTER → 2025-04-03 | Outpatient (CLI) | payer MEDICARE, BC, SELFPAY ==
[2023-10-21 16:26] VITALS: BMI 40.8
--- OUTSIDE RECORDS SUMMARY | 2025-04-02 09:24 | XMS RPT_ITS ---
Author Name Auto Generated Organization OHIP Care Team Providers Care Fire Engine Operator Name Role Phone ART UREÑA Primary Care Unavailable FLOYD, WALE Sharon Primary Care Unavailable DIOR ELENA A Attending Unavailable SPENCER VILLATORO Attending Unavailable FLOYD, WALE L Primary Care Unavailable ART UREÑA Primary Care Unavailable ART UREÑA Primary Care Unavailable DIOR, ELENA A Referring Unavailable ART URÑEA Primary Care Unavailable SHABANA RAMOS Attending Unavailable FLOYD, WALE Herrera Primary Care Unavailable BRENDA CHAPARRO Attending Unavailable FLOYD, WALE L Primary Care Unavailable DIOR, ELENA A Referring Unavailable DB FOWLER Attending Unavailable FLOYD, WALE L Primary Care Unavailable FLOYD, WALE L Primary Care Unavailable HARI ADEN Referring Unavailable AURELIA HODGE Attending Unavailable FLOYD, WALE L Primary Care Unavailable CHRISTINA, AURELIA L Referring Unavailable FLOYD, WALE L Primary Care Unavailable MARGUY, AURELIA L Referring Unavailable ART UREÑA Primary Care Unavailable TAYLOR PIERCE Attending Unavailable ART UREÑA Primary Care Unavailable ART UREÑA Primary Care Unavailable DIOR, ELENA A Attending Unavailable ART UREÑA Primary Care Unavailable TIARRA, FANG Attending Unavailable FLOYD, WALE L Primary Care Unavailable TIARRA, FANG Referring Unavailable FLOYD, WALE L Primary Care Unavailable TIARRA, FANG Referring Unavailable HARI ADEN P Attending Unavailable ART UERÑA Primary Care Unavailable [facility] Referring Unav ailable BRENDA CHAPARRO Attending Unavailable ART UREÑA Primary Care Unavailable SHABANA RAMOS Referring Unavailable ART UREÑA Primary Care Unavailable BRENDA CHAPARRO Referring Unavailable ART UREÑA Primary Care Unavailable BRENDA CHAPARRO Referring Unavailable WALE FLOYD Primary Care Unavailable CELENA POLANCO Attending Unavailable WALE FLOYD Primary Care Unavailable CELENA POLANCO Referring Unavailable WALE FLOYD Primary Care Unavailable CELENA POLANCO Referring Unavailable TRICIA NUÑEZ Attending Unavailable WALE FLOYD Primary Care Unavailable ART UREÑA Primary Care Unavailable ELENA DIOR Referring Unavailable PROBLEMS DATE TYPE CONDITION / CODE ATTENDING STATUS [facility] 04/02/2025 Active Hordeolum art preparator um of right upper eyelid / H00.011(ICD-10) SHAUNA SPENCER Active [facility] 03/20/2025 Active Established Rita ent / UNK(Unknown) ELENA DIOR Active [facility] 02/12/2025 Active Superficial inci sional surgical site infection / T81.41XA(ICD-10) DB FOWLER Active [facility] 02/12/2025 Active Cutaneous absces s of face / L02.01(ICD-10) DB FOWLER Active [facility] 02/03/2025 Active Hypogammaglobuli nemia (HCC) / D80.1(ICD-10) NA Active [facility] 06/23/2016 Active Gastroesophageal reflux disease, unspecified whether esophagitis present / K21.9(ICD-10) BRENDA CHAPARRO Active [facility] 01/27/2025 Active Asthma, moderate persistent, well-controlled (HCC) / J45.40(ICD-10) BRENDA CHAPARRO Active [facility] 01/27/2025 Active History of envir onmental allergies / Z91.09(ICD-10) BRENDA CHAPARRO Active [facility] 12/23/2024 Active Blood blister / T14.8XXA(ICD-10) CELENA POLANCO Active [facility] 12/23/2024 Active Blister of scrot um without infection, initial encounter / S30.823A(ICD-10) CELENA POLANCO Active [facility] 12/23/2024 Active Scrotal swelling / N50.89(ICD-10) CELENA POLANCO Active [facility] 10/03/2024 Active Degeneration of intervertebral disc of lumbar region, unspecified whether pain present / M51.369(ICD-10) NA Active [facility] 09/30/2024 Active Mass of left thi gh / R22.42(ICD-10) ALEYDA HODGERobin Herrera [facility] 09/30/2024 Active Lipoma of left t high / D17.24(ICD-10) CHRISTINAPAXTONAURELIA L [facility] 09/30/2024 Active Intramuscular li lori / D17.9(ICD-10) GEOVANNIPAXTON TOVARTRUNG Herrera [facility] 08/26/2024 Active Encounter to est ablish care / Z76.89(ICD-10) NA [facility] 08/26/2024 Active Body mass index (BMI) 40.0-44.9, adult (HCC) / Z68.41(ICD-10) NA [facility] 08/26/2024 Active Screening for di abetes mellitus / Z13.1(ICD-10) NA [facility] 08/26/2024 Active Screening for th yroid disorder / Z13.29(ICD-10) NA [facility] [place] 08/26/2024 Active Essential (prima ry) hypertension / I10(ICD-10) [facility] [place] 08/26/2024 Active Encounter for vi tamin deficiency screening / Z13.21(ICD-10) NA [facility] 08/26/2024 Active Vitamin D defici ency, unspecified / E55.9(ICD-10) [facility] [place] 06/23/2016 Active Mixed hyperlipid emia / E78.2(ICD-10) NA [facility] 08/10/2024 Active Pure hypercholes terolemia / E78.00(ICD-10) NA [facility] 08/05/2024 Active CARMELLA on CPAP / G47.33(ICD-10) AMADA PIERCE [facility] 07/01/2021 Active Severe persisten t asthma without complication / J45.50(ICD-10) NA [facility] 05/17/2024 Active Bronchiectasis w ithout complication (HCC) / J47.9(ICD-10) NA Active [facility] 04/22/2024 Active Bronchitis / J40(ICD-10) NA Acti ve [facility] 04/13/2024 Active Cough, unspecifi ed type / R05.9(ICD-10) NA Active [facility] 07/01/2021 Active Severe persisten t asthma with acute exacerbation / J45.51(ICD-10) BRENDA CHAPARRO Active [facility] PROCEDURES No Procedure Records Found RESULTS CNPN Observed: 04/03/2025 12:00 AM Status: COMPLETED Source: [facility] Telephone ([employer]) JOAQUIN HENDRICKS ([id number]) 1950 Date Time Provider Department 04/03/25 SPENCER VILLATORO [facility] During your visit today, we recorded the following information about you: Roberto Christine RN 04/03/2025 9:54 AM Signed Patient calls to report that he was seen in Urgent Care yesterday and was to have erythromycin eye ointment sent to [facility]'s pharmacy but wasn't. Reviewed OV notes: { 1. Hordeolum externum of right upper eyelid (H00.011) - Acute hordeolum of the right upper eyelid; likely exacerbated by seasonal allergies and eye rubbing. - Start erythromycin ophthalmic ointment. Pended. Please notify patient once order has been sent. NICOLE Andino Dominique, JASMEET.COLLAR STAY FUSER TENDER 04/03/2025 10:08 AM Signed Please call and let patient know ointment was sent in. Roberto Christine RN 04/03/2025 10:10 AM Signed Call placed to patient and notified. Roberto Christine RN Allergies As of Date: 04/03/2025 Noted Allergy Reaction LISINOPRIL 03/08/2013 3 - Cough SIMVASTATIN 05/25/2012 14 - Other: See Comments Comments: elevated liver enzyme,elevated muscle enzyme Date Reviewed: 04/02/2025 Reviewed by: Janis Feliciano LPN - Fully Assessed Reason for Visit: Medication Problem [65] Primary Visit Diagnosis:Hordeolum externum, unspecified laterality [H00.019] Order(s):erythromycin (ROMYCIN) 5 mg/gram (0.5 %) ophthalmic ointmentUse 1 application in the right eye four times daily.Disp: 3.5 gRfl: 0 Prescriptions as of 04/03/2025 - erythromycin (ROMYCIN) 5 mg/gram (0.5 %) ophthalmic ointment Use 1 application in the right eye four times daily. - fluticasone (FLONASE ALLERGY RELIEF) 50 mcg/actuation nasal spray Use 1 spray in each nostril once daily. - tezepelumab-ekko (TEZSPIRE) 210 mg/1.91 mL (110 mg/mL) syringe Inject 1.91 mL subcutaneously every 4 weeks. - montelukast (SINGULAIR) 10 mg tablet Take 1 tablet by mouth daily at bedtime. - lansoprazole (PREVACID) 30 mg capsule Take 1 capsule by mouth once daily. - rosuvastatin (CRESTOR) 5 mg tablet TAKE 0.5 TAB BY MOUTH EVERY 48 HOURS - allopurinol (ZYLOPRIM) 300 mg tablet Take 1 tablet by mouth once daily. For gout. - aspirin, enteric coated (ECOTRIN LOW STRENGTH) 81 mg EC tablet Take 1 tablet by mouth once daily. Takes every other day noted on 08/26/24 Gabby Copeland MA - CPAP/BIPAP/OTHER CPAP 16 [facility] - azelastine HCl (ASTEPRO ALLERGY NASAL) Use 1 [place] in the nose as needed. - guaiFENesin (MUCINEX) 600 mg 12 hr tablet Take 1,200 mg by mouth two times a day as needed for cold/allergy symptoms. Per pt - albuterol HFA (PROAIR HFA) 90 mcg/actuation inhaler Inhale 2 Puffs as instructed every 6 hours as needed for wheezing/shortness of breath. - calcium carbonate (CALCIUM 500 ORAL) Take by mouth. - vit A/vit C/vit E/zinc/copper (PRESERVISION AREDS ORAL) Take by mouth. - B.coagul,subtilis/inulin/vit C (CULTURELLE PROBIOTIC-PREBIOTIC ORAL) Take by mouth. - mv-mn/C/glutamin/lysin/wgau991 (AIRBORNE, ASCORBATE SODIUM, ORAL) Take by mouth. - fluticasone-salmeterol HFA (ADVAIR HFA) 230-21 mcg/actuation inhaler Inhale 2 Puffs as instructed twice daily. - tamsulosin (FLOMAX) 0.4 mg Take 0.8 mg by mouth once daily. - tiotropium bromide (SPIRIVA RESPIMAT) 1.25 mcg/actuation mist Inhale 2 Puffs as instructed once daily. - ipratropium bromide (ATROVENT) 42 mcg (0.06 %) nasal spray Use 2 Sprays in the nose as needed. - irbesartan (AVAPRO) 150 mg tablet Take 1 tablet by mouth once daily. - loratadine (CLARITIN) 10 mg tablet Take 1 tablet by mouth once daily. - THERAPEUTIC MULTIVITAMIN TAB Take one(1) tablet daily. Problem List As Of Date 04/03/2025 Noted Resolved Anal fissure [K60.2] 08/03/2006 10/30/2011 Blood in stool [K92.1] 09/11/2006 10/30/2011 Hyperlipemia [E78.5] 05/27/2010 04/13/2017 Hypertension [I10] 05/27/2010 Pes planus [M21.40] 10/11/2010 Hyperglycemia [R73.9] 06/16/2011 09/12/2016 Sleep apnea [G47.30] 10/30/2011 09/12/2016 Insomnia [G47.00] 05/31/2012 Obesity [E66.9] 11/27/2012 06/22/2017 Gout attack [M10.9] 02/13/2013 09/12/2016 Gout [M10.9] 02/13/2013 Recurrent kidney stones [N20.0] 02/13/2013 DDD (degenerative disc disease), cervical [M50.*07/08/2013 Asthma [J45.909] 11/21/2014 Chronic sinusitis [J32.9] 11/21/2014 Chronic ethmoidal sinusitis [J32.2] 02/18/2015 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 Encounter Status:Closed by ROBERTO CHRISTINE on 04/03/25 PROGRESS Observed: 04/02/2025 10:02 AM Status: COMPLETED Source: [facility] ID: [id number] Author: SPENCER VILLATORO APRN.[facility] Service: ? Author Type: Nurse Practitioner Type: Progress Notes Filed: 04/02/2025 10:15 Note Text: [facility] Hendricks is a 74 year old male. Patient presents with: Eye Problem: R eye top lid redness, swelling, tender to touch, x 3 days Eye Problem The patient is a 74-year-old male with a history of asthma, presenting with bilateral eye pain and swelling. Bilateral Eye Pain and Swelling: - Onset last night. - Describes a "bump" on both eyes, with soreness upon palpation. - Denies foreign body sensation. - No visual changes; describes vision as "crappy" bilaterally. - Suspects a stye due to the presence of a bump and soreness. - Frequent eye rubbing noted recently. Asthma: - History of asthma. - Reports seasonal allergies, particularly in March, April, September, and October. - Experiences pruritus in the eyes during these months. Review of Systems Eyes: (+) right eyelid bump, (+) right eyelid tenderness, (+) ocular pruritus, (-) visual changes, (-) foreign body sensation PAST MEDICAL HISTORY Diagnosis Date Asthma (HCC) 11/21/201411/2014: DARIEL +, 20% drop in FEV1 at 25 mg/mL. CAD (coronary artery disease) Chronic sinusitis 11/21/201411/2014 CT sinus. DDD (degenerative disc disease), lumbar GERD (gastroesophageal reflux disease) Glaucoma (increased eye pressure) Bilateral Dr. Hdz Gout Hard of hearing hearing aids, Dr. Carlson Hemorrhage of gastrointestinal tract, unspecified Hypertension Mixed hyperlipidemia Hyperlipidemia Nephrolithiasis seen Dr Lanier Obstructive sleep apnea using CPAP Prediabetes Umbilical hernia PAST SURGICAL HISTORY Procedure Laterality Date COLONOSCOPY [...] OF Deviated septum REMV CATARACT EXTRACAP,INSERT LENS ALLERGIES Lisinopril and Simvastatin MEDICATIONS fluticasone (FLONASE ALLERGY RELIEF) 50 mcg/actuation nasal spray Use 1 spray in each nostril once daily. tezepelumab-ekko (TEZSPIRE) 210 mg/1.91 mL (110 mg/mL) syringe Inject 1.91 mL subcutaneously every 4 weeks. montelukast (SINGULAIR) 10 mg tablet Take 1 tablet by mouth daily at bedtime. lansoprazole (PREVACID) 30 mg capsule Take 1 capsule by mouth once daily. rosuvastatin (CRESTOR) 5 mg tablet TAKE 0.5 TAB BY MOUTH EVERY 48 HOURS allopurinol (ZYLOPRIM) 300 mg tablet Take 1 tablet by mouth once daily. For gout. aspirin, enteric coated (ECOTRIN LOW STRENGTH) 81 mg EC tablet Take 1 tablet by mouth once daily. Takes every other day noted on 08/26/24 Gabby Copeland MA CPAP/BIPAP/OTHER CPAP 16 [facility] azelastine HCl (ASTEPRO ALLERGY NASAL) Use 1 [place] in the nose as needed. guaiFENesin (MUCINEX) 600 mg 12 hr tablet Take 1,200 mg by mouth two times a day as needed for cold/allergy symptoms. Per pt albuterol HFA (PROAIR HFA) 90 mcg/actuation inhaler Inhale 2 Puffs as instructed every 6 hours as needed for wheezing/shortness of breath. calcium carbonate (CALCIUM 500 ORAL) Take by mouth. vit A/vit C/vit E/zinc/copper (PRESERVISION AREDS ORAL) Take by mouth. B.coagul,subtilis/inulin/vit C (CULTURELLE PROBIOTIC-PREBIOTIC ORAL) Take by mouth. mv-mn/C/glutamin/lysin/emmr451 (AIR[place]ORNE, ASCORBATE SODIUM, ORAL) Take by mouth. fluticasone-salmeterol HFA (ADVAIR HFA) 230-21 mcg/actuation inhaler Inhale 2 Puffs as instructed twice daily. tamsulosin (FLOMAX) 0.4 mg Take 0.8 mg by mouth once daily. tiotropium bromide (SPIRIVA RESPIMAT) 1.25 mcg/actuation mist Inhale 2 Puffs as instructed once daily. ipratropium bromide (ATROVENT) 42 mcg (0.06 %) nasal spray Use 2 Sprays in the nose as needed. irbesartan (AVAPRO) 150 mg tablet Take 1 tablet by mouth once daily. loratadine (CLARITIN) 10 mg tablet Take 1 tablet by mouth once daily. THERAPEUTIC MULTIVITAMIN TAB Take one(1) tablet daily. FAMILY HISTORY Problem Relation Age of Onset Cancer Father bone marrow SOCIAL HISTORY[1] Objective BP 157/79 Pulse 67 Temp 36.8 ?C (98.2 ?F) Resp 20 Wt (!) 137 kg (302 lb 0.5 oz) SpO2 95% BMI 43.34 kg/m? Physical Exam Constitutional: Appearance: Normal appearance. He is normal weight. Eyes: General: Vision grossly intact. Right eye: Hordeolum present. No foreign body or discharge. Left eye: No foreign body, discharge or hordeolum. Extraocular Movements: Right eye: Normal extraocular motion and no nystagmus. Left eye: Normal extraocular motion and no nystagmus. Conjunctiva/sclera: Right eye: Right conjunctiva is not injected. No chemosis, exudate or hemorrhage. Left eye: Left conjunctiva is not injected. No chemosis, exudate or hemorrhage. Cardiovascular: Pulses: Normal pulses. Heart sounds: Normal heart sounds. Pulmonary: Effort: Pulmonary effort is normal. Breath sounds: Normal breath sounds. Neurological: Mental Status: He is alert. { 1. Hordeolum externum of right upper eyelid (H00.011) - Acute hordeolum of the right upper eyelid; likely exacerbated by seasonal allergies and eye rubbing. - Start erythromycin ophthalmic ointment. - Apply warm compresses to the affected area. - Educated on typical course (often resolves within a week, may appear worse before improving), non-contagious nature, and signs warranting ophthalmology referral (persistent or enlarging lesion). -ER if changes in vision, swelling of the eye, or sudden increase in pain. and Recording using [employer] software for draft documentation of the visit was discussed with the patient/authorized compliance representative dealer; all questions welcomed and answered. Patient/authorized compliance representative dealer agreed to proceed Differential Diagnoses - Stye is more likely for the following reason(s): suggested by HANDP - perorbital celluliits/corneal abrasion/conjunctivitis/iritis is less likely for the following reason(s): HANDP not suggestive Disposition The patient was discharged. [1] Social History Tobacco Use Smoking status: Never Smokeless tobacco: Never Tobacco comments: Parents smoked in childhood home. Vaping Use Vaping status: Never Used Substance Use Topics Alcohol use: Yes Drug use: No CNOV Observed: 04/02/2025 9:30 AM Status: COMPLETED Source: [facility] Office Visit ([facility]) JOAQUIN HENDRICKS ([id number]) 1950 M Date Time Provider Department 04/02/25 9:30 AM SPENCER VILLATORO During your visit today, we recorded the following information about you: Temperature Pulse Respiration Blood pressure 98.2 degrees 67/minute 20/minute 157/79 Weight 137 kg Spencer Villatoro APRN.COLL[employer] STAY FUSER TENDER 04/02/2025 10:15 AM Signed [facility] Subjective Joaquin Hendricks is a 74 year old male. Patient presents with: Eye Problem: R eye top lid redness, swelling, tender to touch, x 3 days Eye Problem The patient is a 74-year-old male with a history of asthma, presenting with bilateral eye pain and swelling. Bilateral Eye Pain and Swelling: - Onset last night. - Describes a "bump" on both eyes, with soreness upon palpation. - Denies foreign body sensation. - No visual changes; describes vision as "crappy" bilaterally. - Suspects a stye due to the presence of a bump and soreness. - Frequent eye rubbing noted recently. Asthma: - History of asthma. - Reports seasonal allergies, particularly in March, April, September, and October. - Experiences pruritus in the eyes during these months. Review of Systems Eyes: (+) right eyelid bump, (+) right eyelid tenderness, (+) ocular pruritus, (-) visual changes, (-) foreign body sensation PAST MEDICAL HISTORY Diagnosis Date Asthma (HCC) 11/21/201411/2014: DARIEL +, 20% drop in FEV1 at 25 mg/mL. CAD (coronary artery disease) Chronic sinusitis 11/21/201411/2014 CT sinus. DDD (degenerative disc disease), lumbar GERD (gastroesophageal reflux disease) Glaucoma (increased eye pressure) Bilateral Dr. Hdz Gout Hard of hearing hearing aids, Dr. Carlson Hemorrhage of gastrointestinal tract, unspecified Hypertension Mixed hyperlipidemia Hyperlipidemia Nephrolithiasis seen Dr Lanier Obstructive sleep apnea using CPAP Prediabetes Umbilical hernia PAST SURGICAL HISTORY Procedure Laterality Date COLONOSCOPY [...] OF Deviated septum REMV CATARACT EXTRACAP,INSERT LENS ALLERGIES Lisinopril and Simvastatin MEDICATIONS fluticasone (FLONASE ALLERGY RELIEF) 50 mcg/actuation nasal spray Use 1 spray in each nostril once daily. tezepelumab-ekko (TEZSPIRE) 210 mg/1.91 mL (110 mg/mL) syringe Inject 1.91 mL subcutaneously every 4 weeks. montelukast (SINGULAIR) 10 mg tablet Take 1 tablet by mouth daily at bedtime. lansoprazole (PREVACID) 30 mg capsule Take 1 capsule by mouth once daily. rosuvastatin (CRESTOR) 5 mg tablet TAKE 0.5 TAB BY MOUTH EVERY 48 HOURS allopurinol (ZYLOPRIM) 300 mg tablet Take 1 tablet by mouth once daily. For gout. aspirin, enteric coated (ECOTRIN LOW STRENGTH) 81 mg EC tablet Take 1 tablet by mouth once daily. Takes every other day noted on 08/26/24 Gabby Copeland MA CPAP/BIPAP/OTHER CPAP 16 D[facility] azelastine HCl (ASTEPRO ALLERGY NASAL) Use 1 [place] in the nose as needed. guaiFENesin (MUCINEX) 600 mg 12 hr tablet Take 1,200 mg by mouth two times a day as needed for cold/allergy symptoms. Per pt albuterol HFA (PROAIR HFA) 90 mcg/actuation inhaler Inhale 2 Puffs as instructed every 6 hours as needed for wheezing/shortness of breath. calcium carbonate (CALCIUM 500 ORAL) Take by mouth. vit A/vit C/vit E/zinc/copper (PRESERVISION AREDS ORAL) Take by mouth. B.coagul,subtilis/inulin/vit C (CULTURELLE PROBIOTIC-PREBIOTIC ORAL) Take by mouth. mv-mn/C/glutamin/lysin/isjd190 (A[place]OR[place], ASCORBATE SODIUM, ORAL) Take by mouth. fluticasone-salmeterol HFA (ADVAIR HFA) 230-21 mcg/actuation inhaler Inhale 2 Puffs as instructed twice daily. tamsulosin (FLOMAX) 0.4 mg Take 0.8 mg by mouth once daily. tiotropium bromide (SPIRIVA RESPIMAT) 1.25 mcg/actuation mist Inhale 2 Puffs as instructed once daily. ipratropium bromide (ATROVENT) 42 mcg (0.06 %) nasal spray Use 2 Sprays in the nose as needed. irbesartan (AVAPRO) 150 mg tablet Take 1 tablet by mouth once daily. loratadine (CLARITIN) 10 mg tablet Take 1 tablet by mouth once daily. THERAPEUTIC MULTIVITAMIN TAB Take one(1) tablet daily. FAMILY HISTORY Problem Relation Age of Onset Cancer Father bone marrow SOCIAL HISTORY[1] Objective BP 157/79 Pulse 67 Temp 36.8 ?C (98.2 ?F) Resp 20 Wt (!) 137 kg (302 lb 0.5 oz) SpO2 95% BMI 43.34 kg/m? Physical Exam Constitutional: Appearance: Normal appearance. He is normal weight. Eyes: General: Vision grossly intact. Right eye: Hordeolum present. No foreign body or discharge. Left eye: No foreign body, discharge or hordeolum. Extraocular Movements: Right eye: Normal extraocular motion and no nystagmus. Left eye: Normal extraocular motion and no nystagmus. Conjunctiva/sclera: Right eye: Right conjunctiva is not injected. No chemosis, exudate or hemorrhage. Left eye: Left conjunctiva is not injected. No chemosis, exudate or hemorrhage. Cardiovascular: Pulses: Normal pulses. Heart sounds: Normal heart sounds. Pulmonary: Effort: Pulmonary effort is normal. Breath sounds: Normal breath sounds. Neurological: Mental Status: He is alert. { 1. Hordeolum externum of right upper eyelid (H00.011) - Acute hordeolum of the right upper eyelid; likely exacerbated by seasonal allergies and eye rubbing. - Start erythromycin ophthalmic ointment. - Apply warm compresses to the affected area. - Educated on typical course (often resolves within a week, may appear worse before improving), non-contagious nature, and signs warranting ophthalmology referral (persistent or enlarging lesion). -ER if changes in vision, swelling of the eye, or sudden increase in pain. and Recording using [employer] software for draft documentation of the visit was discussed with the patient/authorized compliance representative dealer; all questions welcomed and answered. Patient/authorized compliance representative dealer agreed to proceed Differential Diagnoses - Stye is more likely for the following reason(s): suggested by HANDP - perorbital celluliits/corneal abrasion/conjunctivitis/iritis is less likely for the following reason(s): HANDP not suggestive Disposition The patient was discharged. [1] Social History Tobacco Use Smoking status: Never Smokeless tobacco: Never Tobacco comments: Parents smoked in childhood home. Vaping Use Vaping status: Never Used Substance Use Topics Alcohol use: Yes Drug use: No Allergies As of Date: 04/02/2025 Noted Allergy Reaction LISINOPRIL 03/08/2013 3 - Cough SIMVASTATIN 05/25/2012 14 - Other: See Comments Comments: elevated liver enzyme,elevated muscle enzyme Date Reviewed: 04/02/2025 Reviewed by: Janis Feliciano LPN - Fully Assessed Reason for Visit: Eye Problem [43] Cmt: R eye top lid redness, swelling, tender to touch, x 3 days Visit Diagnosis:Hordeolum externum of right upper eyelid [H00.011] Prescriptions as of 04/02/2025 - fluticasone (FLONASE ALLERGY RELIEF) 50 mcg/actuation nasal spray Use 1 spray in each nostril once daily. - tezepelumab-ekko (TEZSPIRE) 210 mg/1.91 mL (110 mg/mL) syringe Inject 1.91 mL subcutaneously every 4 weeks. - montelukast (SINGULAIR) 10 mg tablet Take 1 tablet by mouth daily at bedtime. - lansoprazole (PREVACID) 30 mg capsule Take 1 capsule by mouth once daily. - rosuvastatin (CRESTOR) 5 mg tablet TAKE 0.5 TAB BY MOUTH EVERY 48 HOURS - allopurinol (ZYLOPRIM) 300 mg tablet Take 1 tablet by mouth once daily. For gout. - aspirin, enteric coated (ECOTRIN LOW STRENGTH) 81 mg EC tablet Take 1 tablet by mouth once daily. Takes every other day noted on 08/26/24 Gabby Holiday, MA - CPAP/BIPAP/OTHER CPAP 16 DME [facility] - azelastine HCl (ASTEPRO ALLERGY NASAL) Use 1 [place] in the nose as needed. - guaiFENesin (MUCINEX) 600 mg 12 hr tablet Take 1,200 mg by mouth two times a day as needed for cold/allergy symptoms. Per pt - albuterol HFA (PROAIR HFA) 90 mcg/actuation inhaler Inhale 2 Puffs as instructed every 6 hours as needed for wheezing/shortness of breath. - calcium carbonate (CALCIUM 500 ORAL) Take by mouth. - vit A/vit C/vit E/zinc/copper (PRESERVISION AREDS ORAL) Take by mouth. - B.coagul,subtilis/inulin/vit C (CULTURELLE PROBIOTIC-PREBIOTIC ORAL) Take by mouth. - mv-mn/C/glutamin/lysin/olgr332 (AIRBORNE, ASCORBATE SODIUM, ORAL) Take by mouth. - fluticasone-salmeterol HFA (ADVAIR HFA) 230-21 mcg/actuation inhaler Inhale 2 Puffs as instructed twice daily. - tamsulosin (FLOMAX) 0.4 mg Take 0.8 mg by mouth once daily. - tiotropium bromide (SPIRIVA RESPIMAT) 1.25 mcg/actuation mist Inhale 2 Puffs as instructed once daily. - ipratropium bromide (ATROVENT) 42 mcg (0.06 %) nasal spray Use 2 Sprays in the nose as needed. - irbesartan (AVAPRO) 150 mg tablet Take 1 tablet by mouth once daily. - loratadine (CLARITIN) 10 mg tablet Take 1 tablet by mouth once daily. - THERAPEUTIC MULTIVITAMIN TAB Take one(1) tablet daily. Problem List As Of Date 04/02/2025 Noted Resolved Anal fissure [K60.2] 08/03/2006 10/30/2011 Blood in stool [K92.1] 09/11/2006 10/30/2011 Hyperlipemia [E78.5] 05/27/2010 04/13/2017 Hypertension [I10] 05/27/2010 Pes planus [M21.40] 10/11/2010 Hyperglycemia [R73.9] 06/16/2011 09/12/2016 Sleep apnea [G47.30] 10/30/2011 09/12/2016 Insomnia [G47.00] 05/31/2012 Obesity [E66.9] 11/27/2012 06/22/2017 Gout attack [M10.9] 02/13/2013 09/12/2016 Gout [M10.9] 02/13/2013 Recurrent kidney stones [N20.0] 02/13/2013 DDD (degenerative disc disease), cervical [M50.*07/08/2013 Asthma [J45.909] 11/21/2014 Chronic sinusitis [J32.9] 11/21/2014 Chronic ethmoidal sinusitis [J32.2] 02/18/2015 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 GERD (gastroesophageal reflux disease) [K21.9] Nephrolithiasis [N20.0] 06/22/2017 Mixed hyperlipidemia [E78.2] Obstructive sleep apnea [G47.33] Morbid obesity (HCC) [E66.01] Umbilical hernia [K42.9] Prediabetes [R73.03] 09/12/2016 Colon cancer screening [Z12.11] 05/15/2017 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] 05/25/2018 Epithelial inclusion cyst [L72.0] 06/10/2018 Encounter Status:Closed by SPENCER VILLATORO on 04/02/25 PROGRESS Observed: 03/20/2025 8:00 AM Status: COMPLETED Source: [facility] HNO ID: [id number] Author: ELENA DIOR MD Service: ? 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 IgA and IgM remain within normal limits. Recommend repeat IgG, IgA and IgM in 6 months with a follow-up visit shortly afterwards. (From 03/31/23: Patient received Prevnar 20 on May 06, 2023 and had a fair immune response to this vaccine. 1 month post vaccination, he had antibody titers greater than 1 mcg/mL to 10 pneumococcal serotypes compared to 5 pneumococcal serotypes prevaccination. Four-fold increase in titers to 4 of the serotypes and >2x increase to 1 serotype.) -Severe persistent asthma with significant clinical improvement since beginning treatment with Tezspire Co-managed with pulmonary medicine Continue Tezspire, Advair 230-21, Spiriva 1.25 and Singulair 10 mg Continue Albuterol 2 puffs every 4 hours as needed. Spirometry and FeNO completed on July 29, 2024 were normal. -Bronchiectasis: Continue management as recommended by pulmonary -Nonallergic rhinitis: Continue regular use of fluticasone nasal spray 1 to 2 sprays to each nostril once daily. Continue as needed use of azelastine nasal spray and ipratropium nasal spray 0.06%. Continue OTC antihistamine such as loratadine as needed -Discussed medication dosage, usage, side effects, and goals of treatment in detail. -Follow-up in 6 months with repeat IgG, IgA and IgM.- patient will return sooner should new symptoms or problems arise. (At that time, may decrease frequency of laboratory evaluation and follow-up visits to once per year.) Elena Dior MD Allergy and Clinical Immunology VIRTUAL VISIT PROGRESS NOTE This is a virtual visit. It required patient-provider interaction for the medical decision making as documented below. I have communicated my name and active licensure. The patient's identity and physical location were verified at the time of this visit. Either the patient or their legal compliance representative dealer has been informed of the risks and benefits of -- and alternatives to -- treatment through a remote evaluation and consents to proceed with the evaluation remotely. Joaquin Hendricks (Jim) is a 74 year old male with a history of nonallergic rhinitis, severe persistent asthma, hypogammaglobulinemia and bronchiectasis who presents for a follow-up visit. His last visit was 08/17/24. Since his last visit, he was treated with a 5-day course of cephalexin for a superficial incisional site infection on the face following skin cancer removal. No other infections since his last visit. Asthma symptoms have been well controlled since last visit. Denies cough, wheezing, chest tightness and shortness of breath. Denies nocturnal awakenings due to respiratory symptoms. Denies use of CELENA Denies treatment with systemic corticosteroids for respiratory symptoms since his last visit Continues Tezspire with significant improvement in his symptoms. Last significant asthma exacerbation occurred in April, shortly after patient discontinued use of Spiriva. He subsequently resumed use of Spiriva with improvement in his symptoms. (From August 17, 2024 In April, he experienced a 1 week history of productive cough. 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 Patient was treated with doxycycline with significant improvement in his symptoms. Dr. Ramos recommended a repeat sputum culture, however, patient has been unable to provide this as cough has resolved. No other infections requiring treatment with antibiotics since his last visit. Otherwise, asthma symptoms have been well controlled since last visit. Denies cough, wheezing, chest tightness and shortness of breath. Denies nocturnal awakenings due to respiratory symptoms. Denies use of CELENA Denies treatment with systemic corticosteroids, ER visits or hospitalizations for respiratory symptoms since his last visit He has noted significant improvement in his symptoms since beginning treatment with Tezspire. He is tolerating this medication without adverse reaction. He continues to follow-up with Dr. Ramos in pulmonary medicine. Per patient, daily use of azithromycin was discontinued at his last visit with Dr. Ramos on July 30. Overall nasal symptoms have been well-controlled (From 08/06/23: He has been taking azithromycin 250 mg once daily as prescribed by pulmonary medicine with significant improvement in his symptoms. He feels that he is back to his baseline before experiencing recurrent illnesses over the past 1.5 to 2 years. Denies treatment with additional antibiotics since his last visit. Denies treatment with corticosteroids since his last visit. He continues Advair 230, Singulair, Spiriva 1.25, Tezspire, Dymista, Atrovent nasal spray, loratadine and Mucinex with overall good control of his asthma symptoms and nasal symptoms. (From initial visit on 03/31/23 This is a consultation requested by Shabana Ramos MD for an allergy and immunology evaluation. My final recommendations will be communicated back to the requesting healthcare provider(s) by way of shared medical record or via [place] mail. Joaquin Hendricks (Jim) is a 72 year old male with [...] and postnasal drip. Skin test completed by [facility] in 2020, he had 1+ results [...] or loss of consciousness. REVIEW OF SYSTEMS: Negative for fevers, chills, night sweats and unintentional weight loss. All other review of systems negative except for those listed above. PAST MEDICAL HISTORY Diagnosis Date Asthma (HCC) 11/21/201411/2014: DARIEL +, 20% drop in FEV1 at 25 mg/mL. CAD (coronary artery disease) Chronic sinusitis 11/21/201411/2014 CT sinus. DDD (degenerative disc disease), lumbar GERD (gastroesophageal reflux disease) Glaucoma (increased eye pressure) Bilateral Dr. Hdz Gout Hard of hearing hearing aids, Dr. Carlson Hemorrhage of gastrointestinal tract, unspecified Hypertension Mixed hyperlipidemia Hyperlipidemia Nephrolithiasis seen Dr Lanier Obstructive sleep apnea using CPAP Prediabetes Umbilical hernia MEDICATIONS: fluticasone (FLONASE ALLERGY RELIEF) 50 mcg/actuation nasal spray Use 1 spray in each nostril once daily. tezepelumab-ekko (TEZSPIRE) 210 mg/1.91 mL (110 mg/mL) syringe Inject 1.91 mL subcutaneously every 4 weeks. montelukast (SINGULAIR) 10 mg tablet Take 1 tablet by mouth daily at bedtime. lansoprazole (PREVACID) 30 mg capsule Take 1 capsule by mouth once daily. rosuvastatin (CRESTOR) 5 mg tablet TAKE 0.5 TAB BY MOUTH EVERY 48 HOURS allopurinol (ZYLOPRIM) 300 mg tablet Take 1 tablet by mouth once daily. For gout. aspirin, enteric coated (ECOTRIN LOW STRENGTH) 81 mg EC tablet Take 1 tablet by mouth once daily. Takes every other day noted on 08/26/24 Gabby Copeland MA CPAP/BIPAP/OTHER CPAP 16 [facility] azelastine HCl (ASTEPRO ALLERGY NASAL) Use 1 [place] in the nose as needed. guaiFENesin (MUCINEX) 600 mg 12 hr tablet Take 1,200 mg by mouth two times a day as needed for cold/allergy symptoms. Per pt albuterol HFA (PROAIR HFA) 90 mcg/actuation inhaler Inhale 2 Puffs as instructed every 6 hours as needed for wheezing/shortness of breath. calcium carbonate (CALCIUM 500 ORAL) Take by mouth. vit A/vit C/vit E/zinc/copper (PRESERVISION AREDS ORAL) Take by mouth. B.coagul,subtilis/inulin/vit C (CULTURELLE PROBIOTIC-PREBIOTIC ORAL) Take by mouth. mv-mn/C/glutamin/lysin/lotv027 (AIRBORNE, ASCORBATE SODIUM, ORAL) Take by mouth. fluticasone-salmeterol HFA (ADVAIR HFA) 230-21 mcg/actuation inhaler Inhale 2 Puffs as instructed twice daily. tamsulosin (FLOMAX) 0.4 mg Take 0.8 mg by mouth once daily. tiotropium bromide (SPIRIVA RESPIMAT) 1.25 mcg/actuation mist Inhale 2 Puffs as instructed once daily. ipratropium bromide (ATROVENT) 42 mcg (0.06 %) nasal spray Use 2 Sprays in the nose as needed. irbesartan (AVAPRO) 150 mg tablet Take 1 tablet by mouth once daily. loratadine (CLARITIN) 10 mg tablet Take 1 tablet by mouth once daily. THERAPEUTIC MULTIVITAMIN TAB Take one(1) tablet daily. ALLERGIES: Allergies As of Date: 03/20/2025 Allergen Noted Reaction LISINOPRIL 03/08/2013 Cough SIMVASTATIN 05/25/2012 Other: See Comments Fully Assessed 02/12/2025 PAST SURGICAL HISTORY Procedure Laterality Date COLONOSCOPY [...] no. 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 ENVIRONMENTAL HISTORY: Lives in a house Age of home: 6 years Heating: gas Woodburning fireplace in the home: no Air conditioning: Central air Basement: Damp basement, Carpeted, Furnished [place]: [id number] carpeting, Hardwood floor Dust mite controls: Dust mite controls are already in place. Pets in the home: There are no pets in the home Outdoor animals: There are no outdoor animals Tobacco smoke: No exposure in the home. VIDEO EXAM: (if completed, performed via video enabled technology) GENERAL: alert and appropriate, in no distress, well-hydrated, well nourished, and happy, smiling, interactive SKIN: no rash noted HEAD: normocephalic, no abnormality or lesion noted EYES: no injection and visual acuity is grossly normal EARS: external ears normal NOSE: external nose normal without rhinorrhea NECK: full ROM, no cervical LNs noted RESPIRATORY: breathing non-labored NEUROLOGIC: no obvious deficit PROGRESS Observed: 02/12/2025 12:26 PM Status: COMPLETED Source: [facility] HNO ID: [id number] Author: DB FOWLER PA-C Service: ? 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 Hilton underwent a skin cancer excision on the left cheek on 01/19, with sutures removed on 01/26. Since the procedure, he has noticed progressive swelling, erythema, and lumpiness at the surgical site. Initially, the area was slightly swollen, but the swelling has increased daily. Erythema, which was not present on Thursday, has developed and intensified. Hilton also observes what appears to be blood accumulation in the area. He contacted the dermatology office on Thursday and has a follow-up appointment scheduled for tomorrow. However, due to the rapid progression of symptoms, he sought evaluation today. He denies pain at the site. Hilton uses a CPAP machine with a chin strap, which he believes may be contributing to the irritation and swelling. He has not been placing any padding between the chin strap and the surgical site. CURRENT MEDICATIONS[1] PAST MEDICAL HISTORY[2] PAST SURGICAL HISTORY Procedure Laterality Date COLONOSCOPY [...] HISTORY OF [address] JEFFY PAST SURGICAL HISTORY OF eye stents for glaucoma PAST SURGICAL HISTORY OF UPPP PAST SURGICAL HISTORY OF Deviated septum REMV CATARACT EXTRACAP,INSERT LENS SOCIAL HISTORY[3] Physical Exam: BP 140/84 Pulse 88 Temp 36.9 ?C (98.5 ?F) Resp 20 Wt (!) 138.3 kg (304 lb 14.3 oz) SpO2 95% BMI 43.75 kg/m? General appearance: Well appearing, alert, in no acute distress, well-hydrated, well nourished. Skin: 2 inch surgical scar on left cheek with erythema and induration. Bottom portion discolored with black. Eyes: Anicteric sclera. Pupils are equally round and reactive to light. Extraocular movements are intact. Assessment/Plan: 1. Superficial incisional surgical site infection (T81.41XA) Cutaneous abscess of face (L02.01) Post-surgical site on the left cheek following skin cancer excision on January 19, with sutures removed on January 26. Increasing erythema and induration noted, with no associated tenderness. Possible irritation from CPAP chin strap contributing to swelling. - Initiated Keflex 500 mg orally four times daily for 5 days. - Advised to apply a gauze pad between the CPAP chin strap and the surgical site to minimize irritation. - Continue cleansing the area with warm soap and water, followed by gentle drying. - Follow-up with dermatology appointment scheduled for tomorrow. Recording using [employer] software for draft documentation of the visit was discussed with the patient/authorized compliance representative dealer; all questions welcomed and answered. Patient/authorized compliance representative dealer agreed to proceed. Db Fowler, MPAS, PA-C MDM [1] Current Outpatient Medications Medication Sig fluticasone (FLONASE ALLERGY RELIEF) 50 mcg/actuation nasal spray Use 1 spray in each nostril once daily. tezepelumab-ekko (TEZSPIRE) 210 mg/1.91 mL (110 mg/mL) syringe Inject 1.91 mL subcutaneously every 4 weeks. montelukast (SINGULAIR) 10 mg tablet Take 1 tablet by mouth daily at bedtime. lansoprazole (PREVACID) 30 mg capsule Take 1 capsule by mouth once daily. rosuvastatin (CRESTOR) 5 mg tablet TAKE 0.5 TAB BY MOUTH EVERY 48 HOURS allopurinol (ZYLOPRIM) 300 mg tablet Take 1 tablet by mouth once daily. For gout. aspirin, enteric coated (ECOTRIN LOW STRENGTH) 81 mg EC tablet Take 1 tablet by mouth once daily. Takes every other day noted on 08/26/24 Gabby Copeland MA CPAP/BIPAP/OTHER CPAP 16 [facility] azelastine HCl (ASTEPRO ALLERGY NASAL) Use 1 [place] in the nose as needed. guaiFENesin (MUCINEX) 600 mg 12 hr tablet Take 1,200 mg by mouth two times a day as needed for cold/allergy symptoms. Per pt albuterol HFA (PROAIR HFA) 90 mcg/actuation inhaler Inhale 2 Puffs as instructed every 6 hours as needed for wheezing/shortness of breath. calcium carbonate (CALCIUM 500 ORAL) Take by mouth. vit A/vit C/vit E/zinc/copper (PRESERVISION AREDS ORAL) Take by mouth. B.coagul,subtilis/inulin/vit C (CULTURELLE PROBIOTIC-PREBIOTIC ORAL) Take by mouth. mv-mn/C/glutamin/lysin/qpbc010 (AIRBORNE, ASCORBATE SODIUM, ORAL) Take by mouth. fluticasone-salmeterol HFA (ADVAIR HFA) 230-21 mcg/actuation inhaler Inhale 2 Puffs as instructed twice daily. tamsulosin (FLOMAX) 0.4 mg Take 0.8 mg by mouth once daily. tiotropium bromide (SPIRIVA RESPIMAT) 1.25 mcg/actuation mist Inhale 2 Puffs as instructed once daily. ipratropium bromide (ATROVENT) 42 mcg (0.06 %) nasal spray Use 2 Sprays in the nose as needed. irbesartan (AVAPRO) 150 mg tablet Take 1 tablet by mouth once daily. loratadine (CLARITIN) 10 mg tablet Take 1 tablet by mouth once daily. THERAPEUTIC MULTIVITAMIN TAB Take one(1) tablet daily. No current facility-administered medications for this visit. [2] Past Medical History: 11/21/2014: Asthma (HCC) Comment: 11/2014: DARIEL +, 20% drop in FEV1 at 25 mg/mL. No date: CAD (coronary artery disease) 11/21/2014: Chronic sinusitis Comment: 11/2014 CT sinus. No date: DDD (degenerative disc disease), lumbar No date: GERD (gastroesophageal reflux disease) No date: Glaucoma (increased eye pressure) Comment: Bilateral Dr. Hdz No date: Gout No date: Hard of hearing Comment: hearing aids, Dr. Carlson No date: Hemorrhage of gastrointestinal tract, unspecified No date: Hypertension No date: Mixed hyperlipidemia Comment: Hyperlipidemia No date: Nephrolithiasis Comment: seen Dr Lanier No date: Obstructive sleep apnea Comment: using CPAP No date: Prediabetes No date: Umbilical hernia [3] Social History Tobacco Use Smoking status: Never Smokeless tobacco: Never Tobacco comments: Parents smoked in childhood home. Vaping Use Vaping status: Never Used Substance Use Topics Alcohol use: Yes Drug use: No CNOV Observed: 02/12/2025 12:15 PM Status: COMPLETED Source: [facility] Office Visit ([facility]) JOAQUIN HENDRICKS ([id number]) 1950 M Date Time Provider Department 02/12/25 12:15 PM DB FOWLER During your visit today, we recorded the following information about you: Temperature Pulse Respiration Blood pressure 98.5 degrees 88/minute 20/minute 140/84 Weight 138.3 kg Db Fowler PA-C 02/12/2025 12:32 PM Signed [facility] NOTE Wale Floyd, DO [address] [facility] [id number] Hilton Hendricks is a 74-year-old male presenting with swelling and erythema on the left cheek following a skin cancer excision. Hilton underwent a skin cancer excision on the left cheek on 01/19, with sutures removed on 01/26. Since the procedure, he has noticed progressive swelling, erythema, and lumpiness at the surgical site. Initially, the area was slightly swollen, but the swelling has increased daily. Erythema, which was not present on Thursday, has developed and intensified. Hilton also observes what appears to be blood accumulation in the area. He contacted the dermatology office on Thursday and has a follow-up appointment scheduled for tomorrow. However, due to the rapid progression of symptoms, he sought evaluation today. He denies pain at the site. Hilton uses a CPAP machine with a chin strap, which he believes may be contributing to the irritation and swelling. He has not been placing any padding between the chin strap and the surgical site. CURRENT MEDICATIONS[1] PAST MEDICAL HISTORY[2] PAST SURGICAL HISTORY Procedure Laterality Date COLONOSCOPY [...] OF Deviated septum REMV CATARACT EXTRACAP,INSERT LENS SOCIAL HISTORY[3] Physical Exam: BP 140/84 Pulse 88 Temp 36.9 ?C (98.5 ?F) Resp 20 Wt (!) 138.3 kg (304 lb 14.3 oz) SpO2 95% BMI 43.75 kg/m? General appearance: Well appearing, alert, in no acute distress, well-hydrated, well nourished. Skin: 2 inch surgical scar on left cheek with erythema and induration. Bottom portion discolored with black. Eyes: Anicteric sclera. Pupils are equally round and reactive to light. Extraocular movements are intact. Assessment/Plan: 1. Superficial incisional surgical site infection (T81.41XA) Cutaneous abscess of face (L02.01) Post-surgical site on the left cheek following skin cancer excision on January 19, with sutures removed on January 26. Increasing erythema and induration noted, with no associated tenderness. Possible irritation from CPAP chin strap contributing to swelling. - Initiated Keflex 500 mg orally four times daily for 5 days. - Advised to apply a gauze pad between the CPAP chin strap and the surgical site to minimize irritation. - Continue cleansing the area with warm soap and water, followed by gentle drying. - Follow-up with dermatology appointment scheduled for tomorrow. Recording using [employer] software for draft documentation of the visit was discussed with the patient/authorized compliance representative dealer; all questions welcomed and answered. Patient/authorized compliance representative dealer agreed to proceed. DERECK Chu, PALeslieC MDM [1] Current Outpatient Medications Medication Sig fluticasone (FLONASE ALLERGY RELIEF) 50 mcg/actuation nasal spray Use 1 spray in each nostril once daily. tezepelumab-ekko (TEZSPIRE) 210 mg/1.91 mL (110 mg/mL) syringe Inject 1.91 mL subcutaneously every 4 weeks. montelukast (SINGULAIR) 10 mg tablet Take 1 tablet by mouth daily at bedtime. lansoprazole (PREVACID) 30 mg capsule Take 1 capsule by mouth once daily. rosuvastatin (CRESTOR) 5 mg tablet TAKE 0.5 TAB BY MOUTH EVERY 48 HOURS allopurinol (ZYLOPRIM) 300 mg tablet Take 1 tablet by mouth once daily. For gout. aspirin, enteric coated (ECOTRIN LOW STRENGTH) 81 mg EC tablet Take 1 tablet by mouth once daily. Takes every other day noted on 08/26/24 Gabby Copeland MA CPAP/BIPAP/OTHER CPAP 16 D[facility] azelastine HCl (ASTEPRO ALLERGY NASAL) Use 1 [place] in the nose as needed. guaiFENesin (MUCINEX) 600 mg 12 hr tablet Take 1,200 mg by mouth two times a day as needed for cold/allergy symptoms. Per pt albuterol HFA (PROAIR HFA) 90 mcg/actuation inhaler Inhale 2 Puffs as instructed every 6 hours as needed for wheezing/shortness of breath. calcium carbonate (CALCIUM 500 ORAL) Take by mouth. vit A/vit C/vit E/zinc/copper (PRESERVISION AREDS ORAL) Take by mouth. B.coagul,subtilis/inulin/vit C (CULTURELLE PROBIOTIC-PREBIOTIC ORAL) Take by mouth. mv-mn/C/glutamin/lysin/whut472 (AIRBORNE, ASCORBATE SODIUM, ORAL) Take by mouth. fluticasone-salmeterol HFA (ADVAIR HFA) 230-21 mcg/actuation inhaler Inhale 2 Puffs as instructed twice daily. tamsulosin (FLOMAX) 0.4 mg Take 0.8 mg by mouth once daily. tiotropium bromide (SPIRIVA RESPIMAT) 1.25 mcg/actuation mist Inhale 2 Puffs as instructed once daily. ipratropium bromide (ATROVENT) 42 mcg (0.06 %) nasal spray Use 2 Sprays in the nose as needed. irbesartan (AVAPRO) 150 mg tablet Take 1 tablet by mouth once daily. loratadine (CLARITIN) 10 mg tablet Take 1 tablet by mouth once daily. THERAPEUTIC MULTIVITAMIN TAB Take one(1) tablet daily. No current facility-administered medications for this visit. [2] Past Medical History: 11/21/2014: Asthma (HCC) Comment: 11/2014: DARIEL +, 20% drop in FEV1 at 25 mg/mL. No date: CAD (coronary artery disease) 11/21/2014: Chronic sinusitis Comment: 11/2014 CT sinus. No date: DDD (degenerative disc disease), lumbar No date: GERD (gastroesophageal reflux disease) No date: Glaucoma (increased eye pressure) Comment: Bilateral Dr. Hdz No date: Gout No date: Hard of hearing Comment: hearing aids, Dr. Carlson No date: Hemorrhage of gastrointestinal tract, unspecified No date: Hypertension No date: Mixed hyperlipidemia Comment: Hyperlipidemia No date: Nephrolithiasis Comment: seen Dr Lanier No date: Obstructive sleep apnea Comment: using CPAP No date: Prediabetes No date: Umbilical hernia [3] Social History Tobacco Use Smoking status: Never Smokeless tobacco: Never Tobacco comments: Parents smoked in childhood home. Vaping Use Vaping status: Never Used Substance Use Topics Alcohol use: Yes Drug use: No Db Fowler PA-C 02/12/2025 12:30 PM Signed We discussed the swelling and redness on your left cheek following your recent skin cancer removal: - I prescribed Keflex (antibiotic) 500 mg to take four times a day for 5 days. This has been sent to your pharmacy. Please pick it up and start taking it as soon as possible. - Continue to wash the area with warm soap and water, pat it dry, and keep it clean. - Place a gauze pad between the area and your CPAP chin strap to reduce irritation and prevent rubbing. - Follow up with your dermatology provider as planned tomorrow for further evaluation. Please monitor the area closely. If the swelling, redness, or any other symptoms worsen, contact our office or seek medical attention. Allergies As of Date: 02/12/2025 Noted Allergy Reaction LISINOPRIL 03/08/2013 3 - Cough SIMVASTATIN 05/25/2012 14 - Other: See Comments Comments: elevated liver enzyme,elevated muscle enzyme Date Reviewed: 02/12/2025 Reviewed by: Angie Evans MA - Fully Assessed Reason for Visit: Infection [853291] Cmt: Swelling on left side of face, possible infection from surgical site. Primary Visit Diagnosis:Superficial incisional surgical site infection [T81.41XA] Other Visit Diagnosis:Cutaneous abscess of face [L02.01] Order(s):cephALEXin (KEFLEX) 500 mg capsuleTake 1 capsule by mouth four times daily for 5 days.Disp: 20 capsuleRfl: 0 Prescriptions as of 02/12/2025 - cephALEXin (KEFLEX) 500 mg capsule Take 1 capsule by mouth four times daily for 5 days. - fluticasone (FLONASE ALLERGY RELIEF) 50 mcg/actuation nasal spray Use 1 spray in each nostril once daily. - tezepelumab-ekko (TEZSPIRE) 210 mg/1.91 mL (110 mg/mL) syringe Inject 1.91 mL subcutaneously every 4 weeks. - montelukast (SINGULAIR) 10 mg tablet Take 1 tablet by mouth daily at bedtime. - lansoprazole (PREVACID) 30 mg capsule Take 1 capsule by mouth once daily. - rosuvastatin (CRESTOR) 5 mg tablet TAKE 0.5 TAB BY MOUTH EVERY 48 HOURS - allopurinol (ZYLOPRIM) 300 mg tablet Take 1 tablet by mouth once daily. For gout. - aspirin, enteric coated (ECOTRIN LOW STRENGTH) 81 mg EC tablet Take 1 tablet by mouth once daily. Takes every other day noted on 08/26/24 Gabby Copeland MA - CPAP/BIPAP/OTHER CPAP 16 DME [facility] - azelastine HCl (ASTEPRO ALLERGY NASAL) Use 1 [place] in the nose as needed. - guaiFENesin (MUCINEX) 600 mg 12 hr tablet Take 1,200 mg by mouth two times a day as needed for cold/allergy symptoms. Per pt - albuterol HFA (PROAIR HFA) 90 mcg/actuation inhaler Inhale 2 Puffs as instructed every 6 hours as needed for wheezing/shortness of breath. - calcium carbonate (CALCIUM 500 ORAL) Take by mouth. - vit A/vit C/vit E/zinc/copper (PRESERVISION AREDS ORAL) Take by mouth. - B.coagul,subtilis/inulin/vit C (CULTURELLE PROBIOTIC-PREBIOTIC ORAL) Take by mouth. - mv-mn/C/glutamin/lysin/nkeh125 (AIRBORNE, ASCORBATE SODIUM, ORAL) Take by mouth. - fluticasone-salmeterol HFA (ADVAIR HFA) 230-21 mcg/actuation inhaler Inhale 2 Puffs as instructed twice daily. - tamsulosin (FLOMAX) 0.4 mg Take 0.8 mg by mouth once daily. - tiotropium bromide (SPIRIVA RESPIMAT) 1.25 mcg/actuation mist Inhale 2 Puffs as instructed once daily. - ipratropium bromide (ATROVENT) 42 mcg (0.06 %) nasal spray Use 2 Sprays in the nose as needed. - irbesartan (AVAPRO) 150 mg tablet Take 1 tablet by mouth once daily. - loratadine (CLARITIN) 10 mg tablet Take 1 tablet by mouth once daily. - THERAPEUTIC MULTIVITAMIN TAB Take one(1) tablet daily. Problem List As Of Date 02/12/2025 Noted Resolved Anal fissure [K60.2] 08/03/2006 10/30/2011 Blood in stool [K92.1] 09/11/2006 10/30/2011 Hyperlipemia [E78.5] 05/27/2010 04/13/2017 Hypertension [I10] 05/27/2010 Pes planus [M21.40] 10/11/2010 Hyperglycemia [R73.9] 06/16/2011 09/12/2016 Sleep apnea [G47.30] 10/30/2011 09/12/2016 Insomnia [G47.00] 05/31/2012 Obesity [E66.9] 11/27/2012 06/22/2017 Gout attack [M10.9] 02/13/2013 09/12/2016 Gout [M10.9] 02/13/2013 Recurrent kidney stones [N20.0] 02/13/2013 DDD (degenerative disc disease), cervical [M50.*07/08/2013 Asthma [J45.909] 11/21/2014 Chronic sinusitis [J32.9] 11/21/2014 Chronic ethmoidal sinusitis [J32.2] 02/18/2015 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 This has been sent to your pharmacy. Please pick it up and start taking it as soon as possible. - Continue to wash the area with warm soap and water, pat it dry, and keep it clean. - Place a gauze pad between the area and your CPAP chin strap to reduce irritation and prevent rubbing. - Follow up with your dermatology provider as planned tomorrow for further evaluation. Please monitor the area closely. If the swelling, redness, or any other symptoms worsen, contact our office or seek medical attention. Prescriptions ordered this encounter Disp Refills Start End CEPHALEXIN 500 MG CAPSULE 20 c* 0 02/12/2025 02/17/2025 Route: PO Sig: Take 1 capsule by mouth four times daily for 5 days. Encounter Status:Closed by DB FOWLER on 02/12/25 IGA SERPL-MCNC Collected: 10:24 AM Status: F Source: [facility] Order Comment: Specimen Type : BLOOD SPECIMEN Ordering Facility: [facility] Address: [address] [place] [address] TYPE CODE TESTS RESULT OUT OF RANGE REFERENCE UNITS LAB 2458-8(LOINC) IgA SerPl-mCnc 122 70-400 mg/dL Performed By: #### 2458-8, 2 472-9, 2465-3 #### [facility] CLIA [id number] IGG SERPL-MCNC Collected: 10:24 AM Status: F Source: [facility] Order Comment: Specimen Type : BLOOD SPECIMEN Ordering Facility: [facility] Address: [address] [place] [address] TYPE CODE TESTS RESULT OUT OF RANGE REFERENCE UNITS LAB 2465-3(LOINC) IgG SerPl-mCnc 603 Low 700-1600 mg/dL Performed By: #### 2458-8, 2 472-9, 2465-3 #### [facility] CLIA [id number] [address] [place] [address] IGM SERPL-MCNC Collected: 10:24 AM Status: F Source: [facility] Order Comment: Specimen Type : BLOOD SPECIMEN Ordering Facility: [facility] Address: [address] [place] [address] TYPE CODE TESTS RESULT OUT OF RANGE REFERENCE UNITS LAB 2472-9(LOINC) IgM SerPl-mCnc 53 40-230 mg/dL Performed By: #### 2458-8, 2 472-9, 2465-3 #### [facility] CLIA [id number] [address] [place] [address] PROGRESS Observed: 01/27/2025 9:00 AM Status: COMPLETED Source: [facility] HNO ID: [id number] Author: BRENDA CHAPARRO APRN.COLLAR STAY FUSER TENDER Service: ? Author Type: Nurse Practitioner Type: Progress Notes Filed: 01/27/2025 11:41 Note Text: Pulmonary Medicine Patients name: Joaquin Hendricks "Hilton" PCP: Wale Floyd DO Recording using [employer] software for draft documentation of the visit was discussed with the patient/authorized compliance representative dealer; all questions welcomed and answered. Patient/authorized compliance representative dealer agreed to proceed CC: Asthma follow-up HPI: Joaquin Hendricks is a 74 year old male never smoker with PMH significant for morbid obesity, asthma diagnosed by positive methacholine challenge testing, CARMELLA on CPAP, HTN, HLD, CAD s/p stent, low IgG without immunodeficiency, bronchial wall thickening without evidence of bronchiectasis on CT. MOIRA 07/2024 with recent asthma exacerbation. Stopped daily azithromycin d/t abnormal sputum cultures with Aspergillus and NTM. Current therapy consists of Advair, Spiriva, Tezspire, albuterol PRN. He presents today for follow-up. He reports overalls stable symptoms since his last visit. Has not had any additional exacerbations in asthma, nor has he required use of Albuterol or his nebulizer. He has started to note a slight increase in dry cough which he attributes to either the approaching end of his Tespire injection cycle or increased outdoor activities. He also has known GERD and states he has burping more in the past few days which could be contributing. Otherwise denies wheezing, chest tightness or significant shortness of breath. He does have chronic sinus congestion and drainage, previously seen by ENT. Uses a combination of nasal sprays. He does report b/l LE edema but has been seen previously by cardiology without concern. PAST MEDICAL HISTORY Diagnosis Date Asthma ([facility]) 11/21/201411/2014: DARIEL +, 20% drop in FEV1 at 25 mg/mL. CAD (coronary artery disease) Chronic sinusitis 11/21/201411/2014 CT sinus. DDD (degenerative disc disease), lumbar GERD (gastroesophageal reflux disease) Glaucoma (increased eye pressure) Bilateral Dr. Hdz Gout Hard of hearing hearing aids, Dr. Carlson Hemorrhage of gastrointestinal tract, unspecified Hypertension Mixed hyperlipidemia Hyperlipidemia Nephrolithiasis seen Dr Lanier Obstructive sleep apnea using CPAP Prediabetes Umbilical hernia Allergies: Lisinopril Cough Simvastatin Other: See Comments Comment:elevated liver enzyme,elevated muscle enzyme Medication List Accurate as of January 25, 2025 8:49 PM. If you have any questions, ask your nurse or doctor. CONTINUE taking these medications ADVAIR HFA 230-21 mcg/actuation inhaler Generic drug: fluticasone-salmeterol HFA AIRBORNE (ASCORBATE SODIUM) PO albuterol HFA 90 mcg/actuation inhaler Commonly known as: PROAIR HFA Inhale 2 Puffs as instructed every 6 hours as needed for wheezing/shortness of breath. allopurinol 300 mg tablet Commonly known as: ZYLOPRIM Take 1 tablet by mouth once daily. For gout. aspirin, enteric coated 81 mg EC tablet Commonly known as: ECOTRIN LOW STRENGTH Take 1 tablet by mouth once daily. Takes every other day noted on 08/26/24 Gabby Copeland JOANN ASTEPRO ALLERGY NASAL CALCIUM 500 PO CPAP/BIPAP/OTHER CPAP 16 DME [facility] CULTURELLE PROBIOTIC-PREBIOTIC PO FLONASE ALLERGY RELIEF 50 mcg/actuation nasal spray Generic drug: fluticasone ipratropium bromide 42 mcg (0.06 %) nasal spray Commonly known as: ATROVENT irbesartan 150 mg tablet Commonly known as: AVAPRO Take 1 tablet by mouth once daily. lansoprazole 30 mg capsule Commonly known as: PREVACID Take 1 capsule by mouth once daily. loratadine 10 mg tablet Commonly known as: CLARITIN Take 1 tablet by mouth once daily. montelukast 10 mg tablet Commonly known as: SINGULAIR Take 1 tablet by mouth daily at bedtime. MUCINEX 600 mg 12 hr tablet Generic drug: guaiFENesin PRESERVISION AREDS PO rosuvastatin 5 mg tablet Commonly known as: CRESTOR TAKE 0.5 TAB BY MOUTH EVERY 48 HOURS SPIRIVA RESPIMAT 1.25 mcg/actuation inhaler Generic drug: tiotropium bromide tamsulosin 0.4 mg Commonly known as: FLOMAX TEZSPIRE 210 mg/1.91 mL (110 mg/mL) syringe Generic drug: tezepelumab-ekko Inject 1.91 mL subcutaneously every 4 weeks. therapeutic multivitamin tablet Commonly known as: THERA VITAMIN Take one(1) tablet daily. DATA: I personally reviewed and analyzed all labs, radiographs and available pulmonary function testing PFT: 07/2024 PRE-BRONCH POST-BRONCH Pre LLN Pred ULN %Pred Post %Pred %Chg SPIROMETRY FVC (L) 4.48 2.87 3.87 4.88 115 4.51 116 0 FEV1 (L) 3.49 2.12 2.91 3.65 120 3.52 121 1 FEV1/FVC 0.78 0.63 0.77 0.87 101 0.78 102 0 PEF L/s (L/sec) 11.35 5.65 7.91 10.18 143 10.62 134 -6 FEF50 (L/sec) 5.02 1.71 3.83 5.95 131 4.25 111 -15 FIF50 (L/sec) 4.49 4.77 6 FEF50/FIF50 1.12 90-100 0.89 -20 FIVC (L) 4.40 4.50 2 NKZ03-25 (L/sec) 3.25 0.96 2.28 4.17 142 3.28 143 0 Time (sec) 13.18 10.64 -19 FET PEF (sec) 0.11 0.09 -14 JUANJOSE (L) 0.18 0.22 22 Vol Extrap % (%) 4 5 22 Spirometry is normal. Negative bronchodilator response. CXR: Last XR Chest - Impression Only XR CHEST 2V FRONTAL/LAT Exam End: 04/13/2024 4:43 PM (Final result) Impression: IMPRESSION: No acute radiographic abnormality. ... Review of Systems Constitutional: Negative for activity change, appetite change, fever and unexpected weight change. HENT: Positive for postnasal drip. Negative for congestion, mouth sores and sinus pain. Respiratory: Positive for cough. Negative for chest tightness, shortness of breath and wheezing. Cardiovascular: Negative for chest pain, palpitations and leg swelling. Allergic/Immunologic: Positive for environmental allergies. Neurological: Negative for weakness and light-headedness. BP (P) 138/78 Pulse (P) 80 Resp (P) 16 Wt (!) 137 kg (302 lb) SpO2 (P) 96% BMI 43.33 kg/m? Physical Exam Vitals reviewed. Constitutional: General: He is not in acute distress. Appearance: Normal appearance. He is not ill-appearing. HENT: Head: Normocephalic. Mouth/Throat: Mouth: Mucous membranes are moist. Pharynx: No posterior oropharyngeal erythema. Cardiovascular: Rate and Rhythm: Normal rate and regular rhythm. Heart sounds: Normal heart sounds. Pulmonary: Effort: Pulmonary effort is normal. No respiratory distress. Breath sounds: No wheezing or rhonchi. Musculoskeletal: Right lower leg: Edema present. Left lower leg: Edema present. Comments: 1-2+ LE edema, chronic Skin: General: Skin is warm and dry. Capillary Refill: Capillary refill takes less than 2 seconds. Neurological: General: No focal deficit present. Mental Status: He is alert. 1. Asthma, moderate persistent, well-controlled (HCC) (J45.40) - currently with well controlled symptoms. Will monitor current symptoms of dry cough and notify us if symptoms worsen or persist. - Continue current therapy with Advair, Spiriva and Albuterol as needed. Previously attempted stepping back therapy with stopping Spiriva but had asthma exacerbation. - Continue Tespire with allergy, due for injection today. 2. History of environmental allergies (Z91.09) - alternating OTC antihistamines. - continue nasal sprays. 3. Gastroesophageal reflux disease, unspecified whether esophagitis present (K21.9) - Continue Lansoprazole as prescribed. - Monitor for any recurrent symptoms and report if they persist. F/u 6 months Portions of this documentation were copied and pasted from previous office visit notes in order to provide a cohesive continuity of the history. The note has been reviewed and edited and updated as necessary. Brenda Chaparro APRN.CNP I spent a total of 29 minutes on the date of the service which included preparing to see the patient, [id number] patient care, completing clinical documentation, performing a medically appropriate examination, and counseling and educating the patient/family/caregiver. CNOV Observed: 01/27/2025 9:00 AM Status: COMPLETED Source: [facility] Office Visit (PULMWS) JOAQUIN HENDRICKS ([id number]) 1950 M Date Time Provider Department 01/27/25 9:00 AM BRENDA CHAPARRO PULMWS During your visit today, we recorded the following information about you: Weight 137 kg Brenda Chaparro APRN.COLLAR STAY FUSER TENDER 01/27/2025 11:41 AM Signed Pulmonary Medicine Patients name: Joaquin Hendricks "Hilton" PCP: Wale Floyd DO Recording using ambient [employer] software for draft documentation of the visit was discussed with the patient/authorized compliance representative dealer; all questions welcomed and answered. Patient/authorized compliance representative dealer agreed to proceed CC: Asthma follow-up HPI: Joaquin Hendricks is a 74 year old male never smoker with PMH significant for morbid obesity, asthma diagnosed by positive methacholine challenge testing, CARMELLA on CPAP, HTN, HLD, CAD s/p stent, low IgG without immunodeficiency, bronchial wall thickening without evidence of bronchiectasis on CT. MOIRA 07/2024 with recent asthma exacerbation. Stopped daily azithromycin d/t abnormal sputum cultures with Aspergillus and NTM. Current therapy consists of Advair, Spiriva, Tezspire, albuterol PRN. He presents today for follow-up. He reports overalls stable symptoms since his last visit. Has not had any additional exacerbations in asthma, nor has he required use of Albuterol or his nebulizer. He has started to note a slight increase in dry cough which he attributes to either the approaching end of his Tespire injection cycle or increased outdoor activities. He also has known GERD and states he has burping more in the past few days which could be contributing. Otherwise denies wheezing, chest tightness or significant shortness of breath. He does have chronic sinus congestion and drainage, previously seen by ENT. Uses a combination of nasal sprays. He does report b/l LE edema but has been seen previously by cardiology without concern. PAST MEDICAL HISTORY Diagnosis Date Asthma ([facility]) 11/21/201411/2014: DARIEL +, 20% drop in FEV1 at 25 mg/mL. CAD (coronary artery disease) Chronic sinusitis 11/21/201411/2014 CT sinus. DDD (degenerative disc disease), lumbar GERD (gastroesophageal reflux disease) Glaucoma (increased eye pressure) Bilateral Dr. Hdz Gout Hard of hearing hearing aids, Dr. Carlson Hemorrhage of gastrointestinal tract, unspecified Hypertension Mixed hyperlipidemia Hyperlipidemia Nephrolithiasis seen Dr Lanier Obstructive sleep apnea using CPAP Prediabetes Umbilical hernia Allergies: Lisinopril Cough Simvastatin Other: See Comments Comment:elevated liver enzyme,elevated muscle enzyme Medication List Accurate as of January 25, 2025 8:49 PM. If you have any questions, ask your nurse or doctor. CONTINUE taking these medications ADVAIR HFA 230-21 mcg/actuation inhaler Generic drug: fluticasone-salmeterol HFA AIRBORNE (ASCORBATE SODIUM) PO albuterol HFA 90 mcg/actuation inhaler Commonly known as: PROAIR HFA Inhale 2 Puffs as instructed every 6 hours as needed for wheezing/shortness of breath. allopurinol 300 mg tablet Commonly known as: ZYLOPRIM Take 1 tablet by mouth once daily. For gout. aspirin, enteric coated 81 mg EC tablet Commonly known as: ECOTRIN LOW STRENGTH Take 1 tablet by mouth once daily. Takes every other day noted on 08/26/24 Gabby Copeland MA ASTEPRO ALLERGY NASAL CALCIUM 500 PO CPAP/BIPAP/OTHER CPAP 16 DME [facility] CULTURELLE PROBIOTIC-PREBIOTIC PO FLONASE ALLERGY RELIEF 50 mcg/actuation nasal spray Generic drug: fluticasone ipratropium bromide 42 mcg (0.06 %) nasal spray Commonly known as: ATROVENT irbesartan 150 mg tablet Commonly known as: AVAPRO Take 1 tablet by mouth once daily. lansoprazole 30 mg capsule Commonly known as: PREVACID Take 1 capsule by mouth once daily. loratadine 10 mg tablet Commonly known as: CLARITIN Take 1 tablet by mouth once daily. montelukast 10 mg tablet Commonly known as: SINGULAIR Take 1 tablet by mouth daily at bedtime. MUCINEX 600 mg 12 hr tablet Generic drug: guaiFENesin PRESERVISION AREDS PO rosuvastatin 5 mg tablet Commonly known as: CRESTOR TAKE 0.5 TAB BY MOUTH EVERY 48 HOURS SPIRIVA RESPIMAT 1.25 mcg/actuation inhaler Generic drug: tiotropium bromide tamsulosin 0.4 mg Commonly known as: FLOMAX TEZSPIRE 210 mg/1.91 mL (110 mg/mL) syringe Generic drug: tezepelumab-ekko Inject 1.91 mL subcutaneously every 4 weeks. therapeutic multivitamin tablet Commonly known as: THERA VITAMIN Take one(1) tablet daily. DATA: I personally reviewed and analyzed all labs, radiographs and available pulmonary function testing PFT: 07/2024 PRE-BRONCH POST-BRONCH Pre LLN Pred ULN %Pred Post %Pred %Chg SPIROMETRY FVC (L) 4.48 2.87 3.87 4.88 115 4.51 116 0 FEV1 (L) 3.49 2.12 2.91 3.65 120 3.52 121 1 FEV1/FVC 0.78 0.63 0.77 0.87 101 0.78 102 0 PEF L/s (L/sec) 11.35 5.65 7.91 10.18 143 10.62 134 -6 FEF50 (L/sec) 5.02 1.71 3.83 5.95 131 4.25 111 -15 FIF50 (L/sec) 4.49 4.77 6 FEF50/FIF50 1.12 90-100 0.89 -20 FIVC (L) 4.40 4.50 2 LDJ37-42 (L/sec) 3.25 0.96 2.28 4.17 142 3.28 143 0 Time (sec) 13.18 10.64 -19 FET PEF (sec) 0.11 0.09 -14 JUANJOSE (L) 0.18 0.22 22 Vol Extrap % (%) 4 5 22 Spirometry is normal. Negative bronchodilator response. CXR: Last XR Chest - Impression Only XR CHEST 2V FRONTAL/LAT Exam End: 04/13/2024 4:43 PM (Final result) Impression: IMPRESSION: No acute radiographic abnormality. ... Review of Systems Constitutional: Negative for activity change, appetite change, fever and unexpected weight change. HENT: Positive for postnasal drip. Negative for congestion, mouth sores and sinus pain. Respiratory: Positive for cough. Negative for chest tightness, shortness of breath and wheezing. Cardiovascular: Negative for chest pain, palpitations and leg swelling. Allergic/Immunologic: Positive for environmental allergies. Neurological: Negative for weakness and light-headedness. BP (P) 138/78 Pulse (P) 80 Resp (P) 16 Wt (!) 137 kg (302 lb) SpO2 (P) 96% BMI 43.33 kg/m? Physical Exam Vitals reviewed. Constitutional: General: He is not in acute distress. Appearance: Normal appearance. He is not ill-appearing. HENT: Head: Normocephalic. Mouth/Throat: Mouth: Mucous membranes are moist. Pharynx: No posterior oropharyngeal erythema. Cardiovascular: Rate and Rhythm: Normal rate and regular rhythm. Heart sounds: Normal heart sounds. Pulmonary: Effort: Pulmonary effort is normal. No respiratory distress. Breath sounds: No wheezing or rhonchi. Musculoskeletal: Right lower leg: Edema present. Left lower leg: Edema present. Comments: 1-2+ LE edema, chronic Skin: General: Skin is warm and dry. Capillary Refill: Capillary refill takes less than 2 seconds. Neurological: General: No focal deficit present. Mental Status: He is alert. 1. Asthma, moderate persistent, well-controlled ([facility]) (J45.40) - currently with well controlled symptoms. Will monitor current symptoms of dry cough and notify us if symptoms worsen or persist. - Continue current therapy with Advair, Spiriva and Albuterol as needed. Previously attempted stepping back therapy with stopping Spiriva but had asthma exacerbation. - Continue Tespire with allergy, due for injection today. 2. History of environmental allergies (Z91.09) - alternating OTC antihistamines. - continue nasal sprays. 3. Gastroesophageal reflux disease, unspecified whether esophagitis present (K21.9) - Continue Lansoprazole as prescribed. - Monitor for any recurrent symptoms and report if they persist. F/u 6 months Portions of this documentation were copied and pasted from previous office visit notes in order to provide a cohesive continuity of the history. The note has been reviewed and edited and updated as necessary. Brenda Chaparro APRN.WAYNE I spent a total of 29 minutes on the date of the service which included preparing to see the patient, [id number] patient care, completing clinical documentation, performing a medically appropriate examination, and counseling and educating the patient/family/caregiver. Brenda Chaparro APRN.CNP 01/27/2025 9:37 AM Signed We discussed your asthma and current symptoms: - You received your Tespire injection today as scheduled. - If you experience coughing or other asthma symptoms with Advair and Spiriva. - Continue your daily inhalations and nasal sprays as prescribed. - We will not make any changes to your current asthma medications. We discussed your recent symptoms of coughing and burping: - These symptoms may have been related to acid reflux. Continue taking lansoprazole as prescribed. - If these symptoms return or worsen, please let us know. Please continue your current care plan and reach out if you have any concerns or changes in your symptoms. Allergies As of Date: 01/27/2025 Noted Allergy Reaction LISINOPRIL 03/08/2013 3 - Cough SIMVASTATIN 05/25/2012 14 - Other: See Comments Comments: elevated liver enzyme,elevated muscle enzyme Date Reviewed: 01/27/2025 Reviewed by: Brenda Chaparro APRN.COLLAR STAY FUSER TENDER - Fully Assessed Reason for Visit: Established Patient [175] Cmt: 6 month follow up asthma Primary Visit Diagnosis:Asthma, moderate persistent, well-controlled (HCC) [J45.40] Other Visit Diagnoses:History of environmental allergies [Z91.09] Gastroesophageal reflux disease, unspecified whether esophagitis present [K21.9] Prescriptions as of 01/27/2025 - tezepelumab-ekko (TEZSPIRE) 210 mg/1.91 mL (110 mg/mL) syringe Inject 1.91 mL subcutaneously every 4 weeks. - montelukast (SINGULAIR) 10 mg tablet Take 1 tablet by mouth daily at bedtime. - lansoprazole (PREVACID) 30 mg capsule Take 1 capsule by mouth once daily. - rosuvastatin (CRESTOR) 5 mg tablet TAKE 0.5 TAB BY MOUTH EVERY 48 HOURS - allopurinol (ZYLOPRIM) 300 mg tablet Take 1 tablet by mouth once daily. For gout. - aspirin, enteric coated (ECOTRIN LOW STRENGTH) 81 mg EC tablet Take 1 tablet by mouth once daily. Takes every other day noted on 08/26/24 Gbaby Copeland MA - fluticasone (FLONASE ALLERGY RELIEF) 50 mcg/actuation nasal spray Use 1 [place] in each nostril once daily. - CPAP/BIPAP/OTHER CPAP 16 DME [facility] - azelastine HCl (ASTEPRO ALLERGY NASAL) Use 1 [place] in the nose as needed. - guaiFENesin (MUCINEX) 600 mg 12 hr tablet Take 1,200 mg by mouth two times a day as needed for cold/allergy symptoms. Per pt - albuterol HFA (PROAIR HFA) 90 mcg/actuation inhaler Inhale 2 Puffs as instructed every 6 hours as needed for wheezing/shortness of breath. - calcium carbonate (CALCIUM 500 ORAL) Take by mouth. - vit A/vit C/vit E/zinc/copper (PRESERVISION AREDS ORAL) Take by mouth. - B.coagul,subtilis/inulin/vit C (CULTURELLE PROBIOTIC-PREBIOTIC ORAL) Take by mouth. - mv-mn/C/glutamin/lysin/ibuf111 (AIR[place]ORNE, ASCORBATE SODIUM, ORAL) Take by mouth. - fluticasone-salmeterol HFA (ADVAIR HFA) 230-21 mcg/actuation inhaler Inhale 2 Puffs as instructed twice daily. - tamsulosin (FLOMAX) 0.4 mg Take 0.8 mg by mouth once daily. - tiotropium bromide (SPIRIVA RESPIMAT) 1.25 mcg/actuation mist Inhale 2 Puffs as instructed once daily. - ipratropium bromide (ATROVENT) 42 mcg (0.06 %) nasal spray Use 2 Sprays in the nose as needed. - irbesartan (AVAPRO) 150 mg tablet Take 1 tablet by mouth once daily. - loratadine (CLARITIN) 10 mg tablet Take 1 tablet by mouth once daily. - THERAPEUTIC MULTIVITAMIN TAB Take one(1) tablet daily. Problem List As Of Date 01/27/2025 Noted Resolved Anal fissure [K60.2] 08/03/2006 10/30/2011 Blood in stool [K92.1] 09/11/2006 10/30/2011 Hyperlipemia [E78.5] 05/27/2010 04/13/2017 Hypertension [I10] 05/27/2010 Pes planus [M21.40] 10/11/2010 Hyperglycemia [R73.9] 06/16/2011 09/12/2016 Sleep apnea [G47.30] 10/30/2011 09/12/2016 Insomnia [G47.00] 05/31/2012 Obesity [E66.9] 11/27/2012 06/22/2017 Gout attack [M10.9] 02/13/2013 09/12/2016 Gout [M10.9] 02/13/2013 Recurrent kidney stones [N20.0] 02/13/2013 DDD (degenerative disc disease), cervical [M50.*07/08/2013 Asthma [J45.909] 11/21/2014 Chronic sinusitis [J32.9] 11/21/2014 Chronic ethmoidal sinusitis [J32.2] 02/18/2015 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 - If you experience coughing or other asthma symptoms with Advair and Spiriva. - Continue your daily inhalations and nasal sprays as prescribed. - We will not make any changes to your current asthma medications. We discussed your recent symptoms of coughing and burping: - These symptoms may have been related to acid reflux. Continue taking lansoprazole as prescribed. - If these symptoms return or worsen, please let us know. Please continue your current care plan and reach out if you have any concerns or changes in your symptoms. Level of Service: OFFICE/OUTPATIENT ESTABLISHED LOW [facility] 20 MIN [98311] Additional E/M codes: VISIT CPLX INHERENT EANDM ASSOC WITH MED * Disposition: Return in about 6 months (around 07/30/2025). Follow-up and Disposition History for Encounter Date Provider Department Center 01/27/2025 [id number]-WGRHEBRENDA CHAPARRO [facility] Encounter Status:Closed by BRENDA CHAPARRO on 01/27/25 US SCROTUM AND CONTENTS Observed: 2024 9:08 AM Status: F Source: [facility] * * *Final Report* * * DATE OF EXAM: Dec 28 2024 9:08AM [facility] 1063 - US SCROTUM AND CONTENTS / PROCEDURE REASON: multiple diagnoses * * * * Physician Interpretation * * * * EXAMINATION: SCROTAL ULTRASOUND WITH DOPPLER IMAGING CLINICAL HISTORY: Scrotal swelling TECHNIQUE: Sonography of the scrotal contents with color flow and spectral Doppler imaging of the testicular vasculature was performed. Images were obtained and stored in a permanent archive. M: US_2 COMPARISON: None RESULT: RIGHT SCROTUM: Right testis: 4.0 x 2.5 x 3.8 cm. Homogeneous with no calcifications or mass. Normal intratesticular arterial and venous flow with normal spectral waveforms. Epididymis: Unremarkable Vascular flow on Color Doppler is symmetric to the contralateral side. Hydrocele: physiologic fluid present Varicocele: absent LEFT SCROTUM: Left testis: 4.7 x 2.9 x 3.6 cm. Homogeneous with no calcifications or mass. Normal intratesticular arterial and venous flow with normal spectral waveforms. Epididymis: Unremarkable Vascular flow on Color Doppler is symmetric to the contralateral side. Hydrocele: physiologic fluid present Varicocele: absent IMPRESSION: Unremarkable sonographic appearance of the scrotal contents. Normal arterial and venous flow within both testes. Track Repair Worker: PENNY Transcribe Date/Time: Dec 30 2024 4:56P Dictated by : SHAILESH PAT MD This examination was interpreted and the report reviewed and electronically signed by: SHAILESH PAT MD on Dec 30 2024 4:57PM EST [id number] US DOPPLER COMPLETE Observed: 12/28/2024 9:08 AM Status: F Source: [facility] * * *Final Report* * * DATE OF EXAM: Dec 28 2024 9:08AM [facility] 1033 - US DOPPLER COMPLETE / PROCEDURE REASON: multiple diagnoses * * * * Physician Interpretation * * * * EXAMINATION: SCROTAL ULTRASOUND WITH DOPPLER IMAGING CLINICAL HISTORY: Scrotal swelling TECHNIQUE: Sonography of the scrotal contents with color flow and spectral Doppler imaging of the testicular vasculature was performed. Images were obtained and stored in a permanent archive. M: USC_2 COMPARISON: None RESULT: RIGHT SCROTUM: Right testis: 4.0 x 2.5 x 3.8 cm. Homogeneous with no calcifications or mass. Normal intratesticular arterial and venous flow with normal spectral waveforms. Epididymis: Unremarkable Vascular flow on Color Doppler is symmetric to the contralateral side. Hydrocele: physiologic fluid present Varicocele: absent LEFT SCROTUM: Left testis: 4.7 x 2.9 x 3.6 cm. Homogeneous with no calcifications or mass. Normal intratesticular arterial and venous flow with normal spectral waveforms. Epididymis: Unremarkable Vascular flow on Color Doppler is symmetric to the contralateral side. Hydrocele: physiologic fluid present Varicocele: absent IMPRESSION: Unremarkable sonographic appearance of the scrotal contents. Normal arterial and venous flow within both testes. Track Repair Worker: [facility] Transcribe Date/Time: Dec 30 2024 4:56P Dictated by : SHAILESH PAT MD This examination was interpreted and the report reviewed and electronically signed by: SHAILESH PAT MD on Dec 30 2024 4:57PM EST [id number] PROGRESS Observed: 12/28/2024 8:30 AM Status: COMPLETED Source: [facility] HNO ID: [id number] Author: LILA SUAZO RDMS Service: ? Author Type: Environmental Solutions Engineer Type: Progress Notes Filed: 12/29/2024 11:54 Note Text: Radiology Service Progress Note PATIENT NAME: Joaquin Hendricks DATE OF SERVICE: December 29, 2024 TIME: 11:53 AM PATIENT IDENTITY VERIFICATION COMPLETED USING TWO (2) IDENTIFIERS: Name and Date of confirmed by patient verbally. FALL SCREENING: Has the patient had 2 falls in the last year or 1 fall with injury or currently using an Ambulatory Assistive Device (Walker, Cane, Wheelchair, Crutches, etc.)? No PATIENT GENDER DATA: Assigned male at PATIENT RELEVANT IMPLANT DATA REVIEWED: Not Applicable PATIENT PRESENTS WITH AN IMPLANTABLE OR ATTACHED VENDOR MANAGER: No RADIOLOGY DEPARTMENT: Ultrasound PERIPHERAL IV DATA: Not applicable SIGNED BY: Lila Suazo RDMS RVEdgar December 29, 2024 11:53 AM CRP SERPL-MCNC Collected: 12/23/2024 3:43 PM Status: F Source: [facility] Order Comment: Specimen Type : BLOOD SPECIMEN Ordering Facility: [facility] Address: [address] [place] [address] TYPE CODE TESTS RESULT OUT OF RANGE REFERENCE UNITS LAB 1987-(LOINC) CRP SerPl-mCnc <0.3 <0.9 mg/dL Performed By: #### 1987-11 ## ## [facility] CLIA [id number] [address] [place] [address] [place] CBC W AUTO DIFF BLD Collected: 12/23/2024 3:[address] atus: F Source: [facility] Order Comment: Specimen Type : BLOOD SPECIMEN Ordering Facility: [facility] Address: [address] [place] [address] TYPE CODE TESTS RESULT OUT OF RANGE REFERENCE UNITS LAB 6690-2(LOINC) WBC # Bld Auto 8.72 3.70-11.00 k/uL LAB 789-8(LOINC) RBC # Bld Auto 4.75 4.20-6.00 m/ uL LAB 718-7(LOINC) Hgb Bld-mCnc 14.4 13.0-17.0 g/dL LAB 4544-3(LOINC) Hct VFr Bld Auto 43.8 39.0-51.0 % LAB 787-2(LOINC) MCV RBC Auto 92.2 80.0-100.0 fL LAB 785-6([facility]) MCH RBC Qn Auto 30.3 26.0-34.0 p g LAB 786-4([facility]) MCHC RBC Auto-mCnc 32.9 30.5-36.0 g/dL LAB 76674-2([facility]) RDW RBC-Rto 14.7 11.5-15.0 % LAB 777-3([facility]) Platelet # Bld Auto 205 150-400 k/uL LAB 90428-9([facility]) PMV Bld Auto 10.4 9.0-12.7 fL LAB 770-8([facility]) Neutrophils/leuk NFr Bld Auto 69.5 % LAB 751-8([facility]) Neutrophils # Bld Auto 6.06 1.45-7.50 k/uL LAB 736-9([facility]) Lymphocytes/leuk NFr Bld Auto 19.3 % LAB 731-0([facility]) Lymphocytes # Bld Auto 1.68 1.00-4.00 k/uL LAB 5905-5([facility]) Monocytes/leuk NFr Bld Auto 9.3 % LAB 742-7([facility]) Monocytes # Bld Auto 0.81 <0.87 k/uL LAB 713-8([facility]) Eosinophil/leuk NFr Bld Auto 1.0 % LAB 711-2([facility]) Eosinophil # Bld Auto 0.09 <0.46 k/uL LAB 706-2([facility]) Basophils/leuk NFr Bld Auto 0.6 % LAB 704-7([facility]) Basophils # Bld Auto 0.05 <0.11 k/uL LAB 19253-1([facility]) Imm Granulocytes/drew k NFr Bld Auto 0.3 % LAB 80183-9([facility]) Imm Granulocytes # Bld Auto 0.03 <0.10 k/uL LAB 78676-3([facility]) nRBC/100 WBC Bld-Rto 0.0 /100 WBC LAB 771-6([facility]) nRBC # Bld Auto <0.01 <0.01 k/u L LAB 47383-4([facility]) Differential method Bld Auto Performed By: #### 30287-5 # ### [facility] CLIA [id number] [address] [place] [address] [place] SER QL [place] Collected: 3:43 PM Status: F Source: [facility] Order Comment: Specimen Type : BLOOD SPECIMEN Ordering Facility: [facility] Address: [address] [place] [address] TYPE CODE TESTS RESULT OUT OF RANGE REFERENCE UNITS LAB ANAQL [place] SCR QUAL Negative Negative Result Comment: The [employer] antinuclear antibody screen test performed using the following antigens: dsDNA, Chromatin, Ribosomal P, SS-A 60, SS-A 52, SS-B, Sm, SmRNP, CONVEYOR MECHANIC A, CONVEYOR MECHANIC 68, Scl-70, Kellie-1, and Centromere B. Methodology: Multiplex flow immunoassay. Performed By: #### 43228-1 # ### [facility] CLIA [id number] [address] [place] [address] [place] PROGRESS Observed: 12/23/2024 3:06 PM Status: COMPLETED Source: [facility] HNO ID: [id number] Author: CELENA POLANCO APRN.COLLAR STAY FUSER TENDER Service: ? Author Type: Nurse Practitioner Type: Progress Notes Filed: 12/23/2024 15:50 Note Text: This is a 74 year old male who presents today with: Follow up from urgent care, blood blister Notes from express care visit: HPI Groin Bleeding: - Noticed bleeding in the groin area during the last two showers. - First episode involved significant bleeding, with blood running down the leg. - Second episode had less blood but still noticeable. - No associated pain, fever, or chills. - Suspected initial cause to be a ruptured hemorrhoid, but later identified the source as a spot in the groin area. - Noted thin skin, which may contribute to tearing and bleeding. Physical Exam : Blood blisters on scrotum, no open areas or sores, no active bleeding observed. {1. Blood blister (T14.8XXA) - Exam reveals multiple blood blisters on the scrotum; no open areas, active bleeding, or drainage observed. - Advised that the blisters may be rupturing, causing the bleeding episodes. - Referred to primary care physician, Dr. Floyd, for further evaluation and management. and Recording using The Medical Memory software for draft documentation of the visit was discussed with the patient/authorized compliance representative dealer; all questions welcomed and answered. Patient/authorized compliance representative dealer agreed to proceed HISTORY OF PRESENT ILLNESS: - see above, no change - has been careful and using only hand to wash instead of loufa he usually uses -He denies any urinary symptoms beyond some likely prostate related ones that he is seeing someone about -no fevers, chills -no pain, but some burning when washing in shower to the scrotum -denies any type of injury occurring Only on ASA 81mg, no other blood thinners New to patient medical record per patient is melanoma which was found on left side of his face and he has to have a MOHs procedure. PAST MEDICAL HISTORY: PAST MEDICAL HISTORY Diagnosis Date Asthma (HCC) 11/21/201411/2014: DARIEL +, 20% drop in FEV1 at 25 mg/mL. CAD (coronary artery disease) Chronic sinusitis 11/21/201411/2014 CT sinus. DDD (degenerative disc disease), lumbar GERD (gastroesophageal reflux disease) Glaucoma (increased eye pressure) Bilateral Dr. Hdz Gout Hard of hearing hearing aids, Dr. Carlson Hemorrhage of gastrointestinal tract, unspecified Hypertension Mixed hyperlipidemia Hyperlipidemia Nephrolithiasis seen Dr Lanier Obstructive sleep apnea using CPAP Prediabetes Umbilical hernia PAST SURGICAL HISTORY Procedure Laterality Date COLONOSCOPY [...] OF Deviated septum REMV CATARACT EXTRACAP,INSERT LENS ALLERGIES Lisinopril and Simvastatin MEDICATIONS Current Outpatient Medications Medication Sig tezepelumab-ekko (TEZSPIRE) 210 mg/1.91 mL (110 mg/mL) syringe Inject 1.91 mL subcutaneously every 4 weeks. montelukast (SINGULAIR) 10 mg tablet Take 1 tablet by mouth daily at bedtime. lansoprazole (PREVACID) 30 mg capsule Take 1 capsule by mouth once daily. rosuvastatin (CRESTOR) 5 mg tablet TAKE 0.5 TAB BY MOUTH EVERY 48 HOURS allopurinol (ZYLOPRIM) 300 mg tablet Take 1 tablet by mouth once daily. For gout. aspirin, enteric coated (ECOTRIN LOW STRENGTH) 81 mg EC tablet Take 1 tablet by mouth once daily. Takes every other day noted on 08/26/24 Gabby Copeland MA fluticasone (FLONASE ALLERGY RELIEF) 50 mcg/actuation nasal spray Use 1 [place] in each nostril once daily. CPAP/BIPAP/OTHER CPAP 16 DME [facility] azelastine HCl (ASTEPRO ALLERGY NASAL) Use 1 [place] in the nose as needed. guaiFENesin (MUCINEX) 600 mg 12 hr tablet Take 1,200 mg by mouth two times a day as needed for cold/allergy symptoms. Per pt albuterol HFA (PROAIR HFA) 90 mcg/actuation inhaler Inhale 2 Puffs as instructed every 6 hours as needed for wheezing/shortness of breath. calcium carbonate (CALCIUM 500 ORAL) Take by mouth. vit A/vit C/vit E/zinc/copper (PRESERVISION AREDS ORAL) Take by mouth. B.coagul,subtilis/inulin/vit C (CULTURELLE PROBIOTIC-PREBIOTIC ORAL) Take by mouth. mv-mn/C/glutamin/lysin/egom456 (AIRBORNE, ASCORBATE SODIUM, ORAL) Take by mouth. fluticasone-salmeterol HFA (ADVAIR HFA) 230-21 mcg/actuation inhaler Inhale 2 Puffs as instructed twice daily. tamsulosin (FLOMAX) 0.4 mg Take 0.8 mg by mouth once daily. tiotropium bromide (SPIRIVA RESPIMAT) 1.25 mcg/actuation mist Inhale 2 Puffs as instructed once daily. ipratropium bromide (ATROVENT) 42 mcg (0.06 %) nasal spray Use 2 Sprays in the nose as needed. irbesartan (AVAPRO) 150 mg tablet Take 1 tablet by mouth once daily. loratadine (CLARITIN) 10 mg tablet Take 1 tablet by mouth once daily. THERAPEUTIC MULTIVITAMIN TAB Take one(1) tablet daily. No current facility-administered medications for this visit. FAMILY HISTORY Problem Relation Age of Onset Cancer Father bone marrow Social History Tobacco Use Smoking status: Never Smokeless tobacco: Never Tobacco comments: Parents smoked in childhood home. Vaping Use Vaping status: Never Used Substance Use Topics Alcohol use: Yes Drug use: No REVIEW OF SYSTEMS See HPI EXAM: BP 124/70 (BP Site: Left Arm, BP Position: Sitting, BP Cuff Size: Large Adult) Pulse 72 Resp 14 Wt (!) 137.3 kg (302 lb 12.8 oz) SpO2 97% BMI 43.45 kg/m? PHYSICAL EXAM: General Appearance: Well appearing, alert, in no acute distress, well-hydrated, well nourished..morbidly obese. Pleasant, cooperative Skin: Skin color, texture, turgor normal, bilateral arms covered with tubigrips for protection of sensitive skin. He said his skin is very thin and fragile Genitalia:Normal except for 3-4 very small dark spots that appear like blood blisters. Flush with the skin. Unsure patient's normal anatomy, but possibly swollen in scrotum. ASSESSMENT/PLAN: 1. Blood blister - ICD9: 919.2, ICD10: T14.8XXA (primary diagnosis) - US SCROTUM AND CONTENTS - COMPLETE BLOOD COUNT AND DIFFERENTIAL - [place] BLOOD - C-REACTIVE PROTEIN -can use AANDD ointment otc to create barrier for the skin and protect it 2. Blister of scrotum without infection, initial encounter - ICD9: 911.2, ICD10: S30.823A - US SCROTUM AND CONTENTS - COMPLETE BLOOD COUNT AND DIFFERENTIAL - [place] BLOOD - C-REACTIVE PROTEIN 3. Scrotal swelling - ICD9: 608.86, ICD10: N50.89 - US SCROTUM AND CONTENTS - COMPLETE BLOOD COUNT AND DIFFERENTIAL - [place] BLOOD - C-REACTIVE PROTEIN Discussed treatment plan and patient voices understanding. Patient's questions answered appropriately. Medications and potential side effects were discussed and patient voices understanding. Return to the office as scheduled or as needed for worsening/no improvement. Should get scheduled with Dr Floyd for visit if he needs one in near future Celena Polanco APRN.COLLAR STAY FUSER TENDER Medical Decision Making: Problems: Low: Acute, uncomplicated illness or injury Data: Unique test(s) ordered: 3+ Medical Decision Making Level: 3 - Low Recording using The Medical Memory software for draft documentation of the visit was discussed with the patient/authorized compliance representative dealer; all questions welcomed and answered. Patient/authorized compliance representative dealer agreed to proceed CNOV Observed: 12/23/2024 3:00 PM Status: COMPLETED Source: [facility] JOAQUIN HENDRICKS ([id number]) 1950 M Date Time Provider Department 12/23/24 3:00 PM CELENA POLANCOWS During your visit today, we recorded the following information about you: Pulse Respiration Blood pressure Weight 72/minute 14/minute 124/70 137.3 kg Celena Polanco APRN.COLLAR STAY FUSER TENDER 12/23/2024 3:50 PM Signed This is a 74 year old male who presents today with: Follow up from urgent care, blood blister Notes from express care visit: HPI Groin Bleeding: - Noticed bleeding in the groin area during the last two showers. - First episode involved significant bleeding, with blood running down the leg. - Second episode had less blood but still noticeable. - No associated pain, fever, or chills. - Suspected initial cause to be a ruptured hemorrhoid, but later identified the source as a spot in the groin area. - Noted thin skin, which may contribute to tearing and bleeding. Physical Exam : Blood blisters on scrotum, no open areas or sores, no active bleeding observed. {1. Blood blister (T14.8XXA) - Exam reveals multiple blood blisters on the scrotum; no open areas, active bleeding, or drainage observed. - Advised that the blisters may be rupturing, causing the bleeding episodes. - Referred to primary care physician, Dr. Floyd, for further evaluation and management. and Recording using ambient [employer]ump software for draft documentation of the visit was discussed with the patient/authorized compliance representative dealer; all questions welcomed and answered. Patient/authorized compliance representative dealer agreed to proceed HISTORY OF PRESENT ILLNESS: - see above, no change - has been careful and using only hand to wash instead of loufa he usually uses -He denies any urinary symptoms beyond some likely prostate related ones that he is seeing someone about -no fevers, chills -no pain, but some burning when washing in shower to the scrotum -denies any type of injury occurring Only on ASA 81mg, no other blood thinners New to patient medical record per patient is melanoma which was found on left side of his face and he has to have a MOHs procedure. PAST MEDICAL HISTORY: PAST MEDICAL HISTORY Diagnosis Date Asthma (HCC) 11/21/201411/2014: DARIEL +, 20% drop in FEV1 at 25 mg/mL. CAD (coronary artery disease) Chronic sinusitis 11/21/201411/2014 CT sinus. DDD (degenerative disc disease), lumbar GERD (gastroesophageal reflux disease) Glaucoma (increased eye pressure) Bilateral Dr. Hdz Gout Hard of hearing hearing aids, Dr. Carlson Hemorrhage of gastrointestinal tract, unspecified Hypertension Mixed hyperlipidemia Hyperlipidemia Nephrolithiasis seen Dr Lanier Obstructive sleep apnea using CPAP Prediabetes Umbilical hernia PAST SURGICAL HISTORY Procedure Laterality Date COLONOSCOPY [...] OF Deviated septum REMV CATARACT EXTRACAP,INSERT LENS ALLERGIES Lisinopril and Simvastatin MEDICATIONS Current Outpatient Medications Medication Sig tezepelumab-ekko (TEZSPIRE) 210 mg/1.91 mL (110 mg/mL) syringe Inject 1.91 mL subcutaneously every 4 weeks. montelukast (SINGULAIR) 10 mg tablet Take 1 tablet by mouth daily at bedtime. lansoprazole (PREVACID) 30 mg capsule Take 1 capsule by mouth once daily. rosuvastatin (CRESTOR) 5 mg tablet TAKE 0.5 TAB BY MOUTH EVERY 48 HOURS allopurinol (ZYLOPRIM) 300 mg tablet Take 1 tablet by mouth once daily. For gout. aspirin, enteric coated (ECOTRIN LOW STRENGTH) 81 mg EC tablet Take 1 tablet by mouth once daily. Takes every other day noted on 08/26/24 Gabby Copeland MA fluticasone (FLONASE ALLERGY RELIEF) 50 mcg/actuation nasal spray Use 1 [place] in each nostril once daily. CPAP/BIPAP/OTHER CPAP 16 DME [facility] azelastine HCl (ASTEPRO ALLERGY NASAL) Use 1 [place] in the nose as needed. guaiFENesin (MUCINEX) 600 mg 12 hr tablet Take 1,200 mg by mouth two times a day as needed for cold/allergy symptoms. Per pt albuterol HFA (PROAIR HFA) 90 mcg/actuation inhaler Inhale 2 Puffs as instructed every 6 hours as needed for wheezing/shortness of breath. calcium carbonate (CALCIUM 500 ORAL) Take by mouth. vit A/vit C/vit E/zinc/copper (PRESERVISION AREDS ORAL) Take by mouth. B.coagul,subtilis/inulin/vit C (CULTURELLE PROBIOTIC-PREBIOTIC ORAL) Take by mouth. mv-mn/C/glutamin/lysin/sguc269 (AIRBORNE, ASCORBATE SODIUM, ORAL) Take by mouth. fluticasone-salmeterol HFA (ADVAIR HFA) 230-21 mcg/actuation inhaler Inhale 2 Puffs as instructed twice daily. tamsulosin (FLOMAX) 0.4 mg Take 0.8 mg by mouth once daily. tiotropium bromide (SPIRIVA RESPIMAT) 1.25 mcg/actuation mist Inhale 2 Puffs as instructed once daily. ipratropium bromide (ATROVENT) 42 mcg (0.06 %) nasal spray Use 2 Sprays in the nose as needed. irbesartan (AVAPRO) 150 mg tablet Take 1 tablet by mouth once daily. loratadine (CLARITIN) 10 mg tablet Take 1 tablet by mouth once daily. THERAPEUTIC MULTIVITAMIN TAB Take one(1) tablet daily. No current facility-administered medications for this visit. FAMILY HISTORY Problem Relation Age of Onset Cancer Father bone marrow Social History Tobacco Use Smoking status: Never Smokeless tobacco: Never Tobacco comments: Parents smoked in childhood home. Vaping Use Vaping status: Never Used Substance Use Topics Alcohol use: Yes Drug use: No REVIEW OF SYSTEMS See HPI EXAM: BP 124/70 (BP Site: Left Arm, BP Position: Sitting, BP Cuff Size: Large Adult) Pulse 72 Resp 14 Wt (!) 137.3 kg (302 lb 12.8 oz) SpO2 97% BMI 43.45 kg/m? PHYSICAL EXAM: General Appearance: Well appearing, alert, in no acute distress, well-hydrated, well nourished..morbidly obese. Pleasant, cooperative Skin: Skin color, texture, turgor normal, bilateral arms covered with tubigrips for protection of sensitive skin. He said his skin is very thin and fragile Genitalia:Normal except for 3-4 very small dark spots that appear like blood blisters. Flush with the skin. Unsure patient's normal anatomy, but possibly swollen in scrotum. ASSESSMENT/PLAN: 1. Blood blister - ICD9: 919.2, ICD10: T14.8XXA (primary diagnosis) - US SCROTUM AND CONTENTS - COMPLETE BLOOD COUNT AND DIFFERENTIAL - INDIA BLOOD - C-REACTIVE PROTEIN -can use AANDD ointment otc to create barrier for the skin and protect it 2. Blister of scrotum without infection, initial encounter - ICD9: 911.2, ICD10: S30.823A - US SCROTUM AND CONTENTS - COMPLETE BLOOD COUNT AND DIFFERENTIAL - INDIA BLOOD - C-REACTIVE PROTEIN 3. Scrotal swelling - ICD9: 608.86, ICD10: N50.89 - US SCROTUM AND CONTENTS - COMPLETE BLOOD COUNT AND DIFFERENTIAL - INDIA BLOOD - C-REACTIVE PROTEIN Discussed treatment plan and patient voices understanding. Patient's questions answered appropriately. Medications and potential side effects were discussed and patient voices understanding. Return to the office as scheduled or as needed for worsening/no improvement. Should get scheduled with Dr Floyd for visit if he needs one in near future Celena Polanco APRN.[employer] FUSER TENDER Medical Decision Making: Problems: Low: Acute, uncomplicated illness or injury Data: Unique test(s) ordered: 3+ Medical Decision Making Level: 3 - Low Recording using The Medical Memory software for draft documentation of the visit was discussed with the patient/authorized compliance representative dealer; all questions welcomed and answered. Patient/authorized compliance representative dealer agreed to proceed Allergies As of Date: 12/23/2024 Noted Allergy Reaction LISINOPRIL 03/08/2013 3 - Cough SIMVASTATIN 05/25/2012 14 - Other: See Comments Comments: elevated liver enzyme,elevated muscle enzyme Date Reviewed: 12/23/2024 Reviewed by: Deborah Montgomery LPN - Fully Assessed Primary Visit Diagnosis:Blood blister [T14.8XXA] Other Visit Diagnoses:Blister of scrotum without infection, initial encounter [S30.223A] Scrotal swelling [N50.89] Order(s): SCROTUM AND CONTENTS [8707332] Order #: [id number] FUTURE COMPLETE BLOOD COUNT AND DIFFERENTIAL [SQCBCDIF] Order #: [id number] FUTURE INDIA BLOOD [SQANAS] Order #: [id number] FUTURE C-REACTIVE PROTEIN [SQCRP] Order #: [id number] FUTURE Prescriptions as of 12/23/2024 - tezepelumab-ekko (TEZSPIRE) 210 mg/1.91 mL (110 mg/mL) syringe Inject 1.91 mL subcutaneously every 4 weeks. - montelukast (SINGULAIR) 10 mg tablet Take 1 tablet by mouth daily at bedtime. - lansoprazole (PREVACID) 30 mg capsule Take 1 capsule by mouth once daily. - rosuvastatin (CRESTOR) 5 mg tablet TAKE 0.5 TAB BY MOUTH EVERY 48 HOURS - allopurinol (ZYLOPRIM) 300 mg tablet Take 1 tablet by mouth once daily. For gout. - aspirin, enteric coated (ECOTRIN LOW STRENGTH) 81 mg EC tablet Take 1 tablet by mouth once daily. Takes every other day noted on 08/26/24 Gabby Copeland MA - fluticasone (FLONASE ALLERGY RELIEF) 50 mcg/actuation nasal spray Use 1 [place] in each nostril once daily. - CPAP/BIPAP/OTHER CPAP 16 DME [facility] - azelastine HCl (ASTEPRO ALLERGY NASAL) Use 1 [place] in the nose as needed. - guaiFENesin (MUCINEX) 600 mg 12 hr tablet Take 1,200 mg by mouth two times a day as needed for cold/allergy symptoms. Per pt - albuterol HFA (PROAIR HFA) 90 mcg/actuation inhaler Inhale 2 Puffs as instructed every 6 hours as needed for wheezing/shortness of breath. - calcium carbonate (CALCIUM 500 ORAL) Take by mouth. - vit A/vit C/vit E/zinc/copper (PRESERVISION AREDS ORAL) Take by mouth. - B.coagul,subtilis/inulin/vit C (CULTURELLE PROBIOTIC-PREBIOTIC ORAL) Take by mouth. - mv-mn/C/glutamin/lysin/ilfr625 (AIR[place]ORNE, ASCORBATE SODIUM, ORAL) Take by mouth. - fluticasone-salmeterol HFA (ADVAIR HFA) 230-21 mcg/actuation inhaler Inhale 2 Puffs as instructed twice daily. - tamsulosin (FLOMAX) 0.4 mg Take 0.8 mg by mouth once daily. - tiotropium bromide (SPIRIVA RESPIMAT) 1.25 mcg/actuation mist Inhale 2 Puffs as instructed once daily. - ipratropium bromide (ATROVENT) 42 mcg (0.06 %) nasal spray Use 2 Sprays in the nose as needed. - irbesartan (AVAPRO) 150 mg tablet Take 1 tablet by mouth once daily. - loratadine (CLARITIN) 10 mg tablet Take 1 tablet by mouth once daily. - THERAPEUTIC MULTIVITAMIN TAB Take one(1) tablet daily. Problem List As Of Date 12/23/2024 Noted Resolved Anal fissure [K60.2] 08/03/2006 10/30/2011 Blood in stool [K92.1] 09/11/2006 10/30/2011 Hyperlipemia [E78.5] 05/27/2010 04/13/2017 Hypertension [I10] 05/27/2010 Pes planus [M21.40] 10/11/2010 Hyperglycemia [R73.9] 06/16/2011 09/12/2016 Sleep apnea [G47.30] 10/30/2011 09/12/2016 Insomnia [G47.00] 05/31/2012 Obesity [E66.9] 11/27/2012 06/22/2017 Gout attack [M10.9] 02/13/2013 09/12/2016 Gout [M10.9] 02/13/2013 Recurrent kidney stones [N20.0] 02/13/2013 DDD (degenerative disc disease), cervical [M50.*07/08/2013 Asthma [J45.909] 11/21/2014 Chronic sinusitis [J32.9] 11/21/2014 Chronic ethmoidal sinusitis [J32.2] 02/18/2015 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 GERD (gastroesophageal reflux disease) [K21.9] Nephrolithiasis [N20.0] 06/22/2017 Mixed hyperlipidemia [E78.2] Obstructive sleep apnea [G47.33] Morbid obesity (HCC) [E66.01] Umbilical hernia [K42.9] Prediabetes [R73.03] 09/12/2016 Colon cancer screening [Z12.11] 05/15/2017 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] 05/25/2018 Epithelial inclusion cyst [L72.0] 06/10/2018 Level of Service: OFFICE/OUTPATIENT ESTABLISHED LOW [facility] 20 MIN [56912] Additional E/M codes: VISIT CPLX INHERENT EANDM ASSOC WITH MED * Encounter Status:Closed by CELENA POLANCO on 12/23/24 CNPJoanna Observed: 12/20/2024 12:00 AM Status: COMPLETED Source: [facility] Telephone (ALLMED) JOAQUIN HENDRICKS ([id number]) 1950 M Date Time Provider Department 12/20/24 ELENA DIOR ALLMED During your visit today, we recorded the following information about you: Constanza Upton RN 12/20/2024 8:15 AM Signed PA COMPLETED VIA [employer] MAYES: [id number] [facility]: [id number] DATES: 09-21-24 TO 12-20-25 Patient receives injections at [facility] due to medicare insurance- New script on desk for signature- will fax back once completed. Constanza Upton RN 12/20/2024 9:37 AM Signed Script faxed. Allergies As of Date: 12/20/2024 Noted Allergy Reaction LISINOPRIL 03/08/2013 3 - Cough SIMVASTATIN 05/25/2012 14 - Other: See Comments Comments: elevated liver enzyme,elevated muscle enzyme Date Reviewed: 12/18/2024 Reviewed by: Janis Feliciano LPN - Fully Assessed Reason for Visit: PA FOR TEZSPIRE [id number] [Other] Prescriptions as of 12/20/2024 - tezepelumab-ekko (TEZSPIRE) 210 mg/1.91 mL (110 mg/mL) syringe Inject 1.91 mL subcutaneously every 4 weeks. - montelukast (SINGULAIR) 10 mg tablet Take 1 tablet by mouth daily at bedtime. - lansoprazole (PREVACID) 30 mg capsule Take 1 capsule by mouth once daily. - rosuvastatin (CRESTOR) 5 mg tablet TAKE 0.5 TAB BY MOUTH EVERY 48 HOURS - allopurinol (ZYLOPRIM) 300 mg tablet Take 1 tablet by mouth once daily. For gout. - aspirin, enteric coated (ECOTRIN LOW STRENGTH) 81 mg EC tablet Take 1 tablet by mouth once daily. Takes every other day noted on 08/26/24 Gabby Copeland MA - fluticasone (FLONASE ALLERGY RELIEF) 50 mcg/actuation nasal spray Use 1 [place] in each nostril once daily. - CPAP/BIPAP/OTHER CPAP 16 DME [facility] - azelastine HCl (ASTEPRO ALLERGY NASAL) Use 1 [place] in the nose as needed. - guaiFENesin (MUCINEX) 600 mg 12 hr tablet Take 1,200 mg by mouth two times a day as needed for cold/allergy symptoms. Per pt - albuterol HFA (PROAIR HFA) 90 mcg/actuation inhaler Inhale 2 Puffs as instructed every 6 hours as needed for wheezing/shortness of breath. - calcium carbonate (CALCIUM 500 ORAL) Take by mouth. - vit A/vit C/vit E/zinc/copper (PRESERVISION AREDS ORAL) Take by mouth. - B.coagul,subtilis/inulin/vit C (CULTURELLE PROBIOTIC-PREBIOTIC ORAL) Take by mouth. - mv-mn/C/glutamin/lysin/sawu919 (AIR[place]ORNE, ASCORBATE SODIUM, ORAL) Take by mouth. - fluticasone-salmeterol HFA (ADVAIR HFA) 230-21 mcg/actuation inhaler Inhale 2 Puffs as instructed twice daily. - tamsulosin (FLOMAX) 0.4 mg Take 0.8 mg by mouth once daily. - tiotropium bromide (SPIRIVA RESPIMAT) 1.25 mcg/actuation mist Inhale 2 Puffs as instructed once daily. - ipratropium bromide (ATROVENT) 42 mcg (0.06 %) nasal spray Use 2 Sprays in the nose as needed. - irbesartan (AVAPRO) 150 mg tablet Take 1 tablet by mouth once daily. - loratadine (CLARITIN) 10 mg tablet Take 1 tablet by mouth once daily. - THERAPEUTIC MULTIVITAMIN TAB Take one(1) tablet daily. Problem List As Of Date 12/20/2024 Noted Resolved Anal fissure [K60.2] 08/03/2006 10/30/2011 Blood in stool [K92.1] 09/11/2006 10/30/2011 Hyperlipemia [E78.5] 05/27/2010 04/13/2017 Hypertension [I10] 05/27/2010 Pes planus [M21.40] 10/11/2010 Hyperglycemia [R73.9] 06/16/2011 09/12/2016 Sleep apnea [G47.30] 10/30/2011 09/12/2016 Insomnia [G47.00] 05/31/2012 Obesity [E66.9] 11/27/2012 06/22/2017 Gout attack [M10.9] 02/13/2013 09/12/2016 Gout [M10.9] 02/13/2013 Recurrent kidney stones [N20.0] 02/13/2013 DDD (degenerative disc disease), cervical [M50.*07/08/2013 Asthma [J45.909] 11/21/2014 Chronic sinusitis [J32.9] 11/21/2014 Chronic ethmoidal sinusitis [J32.2] 02/18/2015 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 GERD (gastroesophageal reflux disease) [K21.9] Nephrolithiasis [N20.0] 06/22/2017 Mixed hyperlipidemia [E78.2] Obstructive sleep apnea [G47.33] Morbid obesity (HCC) [E66.01] Umbilical hernia [K42.9] Prediabetes [R73.03] 09/12/2016 Colon cancer screening [Z12.11] 05/15/2017 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] 05/25/2018 Epithelial inclusion cyst [L72.0] 06/10/2018 Encounter Status:Closed by CONSTANZA UPTON on 12/20/24 PROGRESS Observed: 12/18/2024 12:47 PM Status: COMPLETED Source: [facility] HNO ID: [id number] Author: TRICIA NUÑEZ APRN.[employer] FUSER TENDER Service: ? Author Type: Nurse Practitioner Type: Progress Notes Filed: 12/18/2024 13:33 Note Text: [facility] Subjective Joaquin Hendricks is a 74 year old male. Patient presents with: Derm Problem: Has happened 2 x previous unsure of where its bleeding from, states from under testicles HPI Groin Bleeding: - Noticed bleeding in the groin area during the last two showers. - First episode involved significant bleeding, with blood running down the leg. - Second episode had less blood but still noticeable. - No associated pain, fever, or chills. - Suspected initial cause to be a ruptured hemorrhoid, but later identified the source as a spot in the groin area. - Noted thin skin, which may contribute to tearing and bleeding. Review of Systems Constitutional: (-) fever, (-) chills Genitourinary: (+) scrotal bleeding, (-) groin pain Objective BP 162/82 Pulse 81 Temp 36.8 ?C (98.3 ?F) Resp 22 Wt (!) 138 kg (304 lb 3.8 oz) SpO2 96% BMI 43.65 kg/m? Physical Exam : Blood blisters on scrotum, no open areas or sores, no active bleeding observed. {1. Blood blister (T14.8XXA) - Exam reveals multiple blood blisters on the scrotum; no open areas, active bleeding, or drainage observed. - Advised that the blisters may be rupturing, causing the bleeding episodes. - Referred to primary care physician, Dr. Floyd, for further evaluation and management. and Recording using The Medical Memory software for draft documentation of the visit was discussed with the patient/authorized compliance representative dealer; all questions welcomed and answered. Patient/authorized compliance representative dealer agreed to proceed MDM Procedures CNOV Observed: 12/18/2024 12:30 PM Status: COMPLETED Source: [facility] Office Visit (WSTR) JOAQUIN HENDRICKS ([id number]) 1950 M Date Time Provider Department 12/18/24 12:30 PM TRICIA NUÑEZ [facility] During your visit today, we recorded the following information about you: Temperature Pulse Respiration Blood pressure 98.3 degrees 81/minute 22/minute 162/82 Weight 138 kg Tricia Nuñez APRN.[facility] 12/18/2024 1:33 PM Signed [facility] Subjective Joaquin Hendricks is a 74 year old male. Patient presents with: Derm Problem: Has happened 2 x previous unsure of where its bleeding from, states from under testicles HPI Groin Bleeding: - Noticed bleeding in the groin area during the last two showers. - First episode involved significant bleeding, with blood running down the leg. - Second episode had less blood but still noticeable. - No associated pain, fever, or chills. - Suspected initial cause to be a ruptured hemorrhoid, but later identified the source as a spot in the groin area. - Noted thin skin, which may contribute to tearing and bleeding. Review of Systems Constitutional: (-) fever, (-) chills Genitourinary: (+) scrotal bleeding, (-) groin pain Objective BP 162/82 Pulse 81 Temp 36.8 ?C (98.3 ?F) Resp 22 Wt (!) 138 kg (304 lb 3.8 oz) SpO2 96% BMI 43.65 kg/m? Physical Exam : Blood blisters on scrotum, no open areas or sores, no active bleeding observed. {1. Blood blister (T14.8XXA) - Exam reveals multiple blood blisters on the scrotum; no open areas, active bleeding, or drainage observed. - Advised that the blisters may be rupturing, causing the bleeding episodes. - Referred to primary care physician, Dr. Floyd, for further evaluation and management. and Recording using The Medical Memory software for draft documentation of the visit was discussed with the patient/authorized compliance representative dealer; all questions welcomed and answered. Patient/authorized compliance representative dealer agreed to proceed MDM Procedures Allergies As of Date: 12/18/2024 Noted Allergy Reaction LISINOPRIL 03/08/2013 3 - Cough SIMVASTATIN 05/25/2012 14 - Other: See Comments Comments: elevated liver enzyme,elevated muscle enzyme Date Reviewed: 12/18/2024 Reviewed by: Janis Feliciano LPN - Fully Assessed Reason for Visit: Derm Problem [33] Cmt: Has happened 2 x previous unsure of where its bleeding from, states from under testicles Primary Visit Diagnosis:Blood blister [T14.8XXA] Prescriptions as of 12/18/2024 - montelukast (SINGULAIR) 10 mg tablet Take 1 tablet by mouth daily at bedtime. - lansoprazole (PREVACID) 30 mg capsule Take 1 capsule by mouth once daily. - rosuvastatin (CRESTOR) 5 mg tablet TAKE 0.5 TAB BY MOUTH EVERY 48 HOURS - allopurinol (ZYLOPRIM) 300 mg tablet Take 1 tablet by mouth once daily. For gout. - aspirin, enteric coated (ECOTRIN LOW STRENGTH) 81 mg EC tablet Take 1 tablet by mouth once daily. Takes every other day noted on 08/26/24 Gabby Copeland MA - fluticasone (FLONASE ALLERGY RELIEF) 50 mcg/actuation nasal spray Use 1 [place] in each nostril once daily. - CPAP/BIPAP/OTHER CPAP 16 DME [facility] - azelastine HCl (ASTEPRO ALLERGY NASAL) Use 1 [place] in the nose as needed. - guaiFENesin (MUCINEX) 600 mg 12 hr tablet Take 1,200 mg by mouth two times a day as needed for cold/allergy symptoms. Per pt - albuterol HFA (PROAIR HFA) 90 mcg/actuation inhaler Inhale 2 Puffs as instructed every 6 hours as needed for wheezing/shortness of breath. - calcium carbonate (CALCIUM 500 ORAL) Take by mouth. - vit A/vit C/vit E/zinc/copper (PRESERVISION AREDS ORAL) Take by mouth. - B.coagul,subtilis/inulin/vit C (CULTURELLE PROBIOTIC-PREBIOTIC ORAL) Take by mouth. - mv-mn/C/glutamin/lysin/rhig719 ([place], ASCORBATE SODIUM, ORAL) Take by mouth. - tezepelumab-ekko (TEZSPIRE) 210 mg/1.91 mL (110 mg/mL) syringe Inject 1.91 mL subcutaneously every 4 weeks. - fluticasone-salmeterol HFA (ADVAIR HFA) 230-21 mcg/actuation inhaler Inhale 2 Puffs as instructed twice daily. - tamsulosin (FLOMAX) 0.4 mg Take 0.8 mg by mouth once daily. - tiotropium bromide (SPIRIVA RESPIMAT) 1.25 mcg/actuation mist Inhale 2 Puffs as instructed once daily. - ipratropium bromide (ATROVENT) 42 mcg (0.06 %) nasal spray Use 2 Sprays in the nose as needed. - irbesartan (AVAPRO) 150 mg tablet Take 1 tablet by mouth once daily. - loratadine (CLARITIN) 10 mg tablet Take 1 tablet by mouth once daily. - THERAPEUTIC MULTIVITAMIN TAB Take one(1) tablet daily. Problem List As Of Date 12/18/2024 Noted Resolved Anal fissure [K60.2] 08/03/2006 10/30/2011 Blood in stool [K92.1] 09/11/2006 10/30/2011 Hyperlipemia [E78.5] 05/27/2010 04/13/2017 Hypertension [I10] 05/27/2010 Pes planus [M21.40] 10/11/2010 Hyperglycemia [R73.9] 06/16/2011 09/12/2016 Sleep apnea [G47.30] 10/30/2011 09/12/2016 Insomnia [G47.00] 05/31/2012 Obesity [E66.9] 11/27/2012 06/22/2017 Gout attack [M10.9] 02/13/2013 09/12/2016 Gout [M10.9] 02/13/2013 Recurrent kidney stones [N20.0] 02/13/2013 DDD (degenerative disc disease), cervical [M50.*07/08/2013 Asthma [J45.909] 11/21/2014 Chronic sinusitis [J32.9] 11/21/2014 Chronic ethmoidal sinusitis [J32.2] 02/18/2015 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 GERD (gastroesophageal reflux disease) [K21.9] Nephrolithiasis [N20.0] 06/22/2017 Mixed hyperlipidemia [E78.2] Obstructive sleep apnea [G47.33] Morbid obesity (HCC) [E66.01] Umbilical hernia [K42.9] Prediabetes [R73.03] 09/12/2016 Colon cancer screening [Z12.11] 05/15/2017 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] 05/25/2018 Epithelial inclusion cyst [L72.0] 06/10/2018 Encounter Status:Closed by TRICIA NUÑEZ on 12/18/24 KADEN Observed: 10/10/2024 12:00 AM Status: COMPLETED Source: [facility] Telephone ([facility]) JOAQUIN HENDRICKS ([id number]) 1950 M Date Time Provider Department 10/10/24 AURELIA HODGE During your visit today, we recorded the following information about you: Laurence Miles 10/10/2024 1:41 PM Signed pt returned your call. [phone] Aurelia Hodge PA-C 10/12/2024 2:20 PM Signed I placed call to [facility] to discuss the MRI regarding soft tissue masses in the left thigh- showing one intramuscular lipoma in the left lateral thigh, medial prox thigh and also one in the right lateral thigh The area that he is having pain and a palpable mass in the left lateral distal thigh, is not clearly seen on MRI, but there is an excess of sub cu tissue in the left lateral thigh, appears to be a subcutaneous un-encapsulated lipoma We discussed the option of surgery, and cannot guarantee that his pain will improve with surgery, but it can be done, and is a low risk surgery. We also discussed that the left prox medial intramuscular lipoma will need monitored, to assess for any changes in size, and another MRI in 6 months would be recommended ( left prox thigh) He will discuss with spouse and will let us know how he would like to proceed. He would need a follow up with Dr. Gonzalez Allergies As of Date: 10/10/2024 Noted Allergy Reaction LISINOPRIL 03/08/2013 3 - Cough SIMVASTATIN 05/25/2012 14 - Other: See Comments Comments: elevated liver enzyme,elevated muscle enzyme Date Reviewed: 09/30/2024 Reviewed by: Aurelia Hodge PA-C - Fully Assessed Reason for Visit: Results [95] Prescriptions as of 10/12/2024 - ALPRAZolam (XANAX) 0.25 mg tablet Take 1 tablet by mouth 30 minutes prior to MRI, may repeat in 15-20 minutes if necessary. - rosuvastatin (CRESTOR) 5 mg tablet TAKE 0.5 TAB BY MOUTH EVERY 48 HOURS - allopurinol (ZYLOPRIM) 300 mg tablet Take 1 tablet by mouth once daily. For gout. - aspirin, enteric coated (ECOTRIN LOW STRENGTH) 81 mg EC tablet Take 1 tablet by mouth once daily. Takes every other day noted on 08/26/24 Gabby Copeland MA - fluticasone (FLONASE ALLERGY RELIEF) 50 mcg/actuation nasal spray Use 1 [place] in each nostril once daily. - CPAP/BIPAP/OTHER CPAP 16 DME [facility] - azelastine HCl (ASTEPRO ALLERGY NASAL) Use 1 [place] in the nose as needed. - guaiFENesin (MUCINEX) 600 mg 12 hr tablet Take 1,200 mg by mouth two times a day as needed for cold/allergy symptoms. Per pt - albuterol HFA (PROAIR HFA) 90 mcg/actuation inhaler Inhale 2 Puffs as instructed every 6 hours as needed for wheezing/shortness of breath. - calcium carbonate (CALCIUM 500 ORAL) Take by mouth. - vit A/vit C/vit E/zinc/copper (PRESERVISION AREDS ORAL) Take by mouth. - B.coagul,subtilis/inulin/vit C (CULTURELLE PROBIOTIC-PREBIOTIC ORAL) Take by mouth. - mv-mn/C/glutamin/lysin/hgvs412 (A[place], ASCORBATE SODIUM, ORAL) Take by mouth. - tezepelumab-ekko (TEZSPIRE) 210 mg/1.91 mL (110 mg/mL) syringe Inject 1.91 mL subcutaneously every 4 weeks. - fluticasone-salmeterol HFA (ADVAIR HFA) 230-21 mcg/actuation inhaler Inhale 2 Puffs as instructed twice daily. - lansoprazole (PREVACID) 30 mg capsule Take 30 mg by mouth once daily. - montelukast (SINGULAIR) 10 mg tablet Take 10 mg by mouth daily at bedtime. - tamsulosin (FLOMAX) 0.4 mg Take 0.8 mg by mouth once daily. - tiotropium bromide (SPIRIVA RESPIMAT) 1.25 mcg/actuation mist Inhale 2 Puffs as instructed once daily. - ipratropium bromide (ATROVENT) 42 mcg (0.06 %) nasal spray Use 2 Sprays in the nose as needed. - irbesartan (AVAPRO) 150 mg tablet Take 1 tablet by mouth once daily. - loratadine (CLARITIN) 10 mg tablet Take 1 tablet by mouth once daily. - THERAPEUTIC MULTIVITAMIN TAB Take one(1) tablet daily. Problem List As Of Date 10/10/2024 Noted Resolved Anal fissure [K60.2] 08/03/2006 10/30/2011 Blood in stool [K92.1] 09/11/2006 10/30/2011 Hyperlipemia [E78.5] 05/27/2010 04/13/2017 Hypertension [I10] 05/27/2010 Pes planus [M21.40] 10/11/2010 Hyperglycemia [R73.9] 06/16/2011 09/12/2016 Sleep apnea [G47.30] 10/30/2011 09/12/2016 Insomnia [G47.00] 05/31/2012 Obesity [E66.9] 11/27/2012 06/22/2017 Gout attack [M10.9] 02/13/2013 09/12/2016 Gout [M10.9] 02/13/2013 Recurrent kidney stones [N20.0] 02/13/2013 DDD (degenerative disc disease), cervical [M50.*07/08/2013 Asthma [J45.909] 11/21/2014 Chronic sinusitis [J32.9] 11/21/2014 Chronic ethmoidal sinusitis [J32.2] 02/18/2015 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 Author Type: Physician Type: Progress Notes Filed: 10/05/2024 12:40 Note Text: HISTORY AND PHYSICAL Joaquin Hendricks 1950 REFERRING PHYSICIAN: Fang Mayen APRN* CHIEF COMPLAINT: Consult HPI: The patient is a 73 year old male with a complaint of Umbilical hernia as well as a lipoma on his left thigh. Patient has had this hernia for some time was seen by a surgeon in [place] was told that he needed to lose weight prior to any surgeries.. The patient is being seen by me today at the request of Dr. 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 PAST MEDICAL HISTORY Diagnosis Date Asthma 11/21/201411/2014: DARIEL +, 20% drop in FEV1 at 25 mg/mL. CAD (coronary artery disease) Chronic sinusitis 11/21/201411/2014 CT sinus. DDD (degenerative disc disease), lumbar GERD (gastroesophageal reflux disease) Glaucoma (increased eye pressure) Bilateral Dr. Hdz Gout Hard of hearing hearing aids, Dr. Carlson Hemorrhage of gastrointestinal tract, unspecified Hypertension Mixed hyperlipidemia Hyperlipidemia Nephrolithiasis seen Dr Lanier Obstructive sleep apnea using CPAP Prediabetes Umbilical hernia PAST SURGICAL HISTORY Procedure Laterality Date COLONOSCOPY [...] OF Deviated septum REMV CATARACT EXTRACAP,INSERT LENS Current Outpatient Medications Medication Sig ALPRAZolam (XANAX) 0.25 mg tablet Take 1 tablet by mouth 30 minutes prior to MRI, may repeat in 15-20 minutes if necessary. rosuvastatin (CRESTOR) 5 mg tablet TAKE 0.5 TAB BY MOUTH EVERY 48 HOURS allopurinol (ZYLOPRIM) 300 mg tablet Take 1 tablet by mouth once daily. For gout. aspirin, enteric coated (ECOTRIN LOW STRENGTH) 81 mg EC tablet Take 1 tablet by mouth once daily. Takes every other day noted on 08/26/24 Gabby Copeland MA fluticasone (FLONASE ALLERGY RELIEF) 50 mcg/actuation nasal spray Use 1 [place] in each nostril once daily. CPAP/BIPAP/OTHER CPAP 16 DME [facility] azelastine HCl (ASTEPRO ALLERGY NASAL) Use 1 [place] in the nose as needed. guaiFENesin (MUCINEX) 600 mg 12 hr tablet Take 1,200 mg by mouth two times a day as needed for cold/allergy symptoms. Per pt albuterol HFA (PROAIR HFA) 90 mcg/actuation inhaler Inhale 2 Puffs as instructed every 6 hours as needed for wheezing/shortness of breath. calcium carbonate (CALCIUM 500 ORAL) Take by mouth. vit A/vit C/vit E/zinc/copper (PRESERVISION AREDS ORAL) Take by mouth. B.coagul,subtilis/inulin/vit C (CULTURELLE PROBIOTIC-PREBIOTIC ORAL) Take by mouth. mv-mn/C/glutamin/lysin/kmwl620 (A[place]NE, ASCORBATE SODIUM, ORAL) Take by mouth. tezepelumab-ekko (TEZSPIRE) 210 mg/1.91 mL (110 mg/mL) syringe Inject 1.91 mL subcutaneously every 4 weeks. fluticasone-salmeterol HFA (ADVAIR HFA) 230-21 mcg/actuation inhaler Inhale 2 Puffs as instructed twice daily. lansoprazole (PREVACID) 30 mg capsule Take 30 mg by mouth once daily. montelukast (SINGULAIR) 10 mg tablet Take 10 mg by mouth daily at bedtime. tamsulosin (FLOMAX) 0.4 mg Take 0.8 mg by mouth once daily. tiotropium bromide (SPIRIVA RESPIMAT) 1.25 mcg/actuation mist Inhale 2 Puffs as instructed once daily. ipratropium bromide (ATROVENT) 42 mcg (0.06 %) nasal spray Use 2 Sprays in the nose as needed. irbesartan (AVAPRO) 150 mg tablet Take 1 tablet by mouth once daily. loratadine (CLARITIN) 10 mg tablet Take 1 tablet by mouth once daily. THERAPEUTIC MULTIVITAMIN TAB Take one(1) tablet daily. No current facility-administered medications for this visit. ALLERGIES: Lisinopril and Simvastatin PERSONAL HISTORY: Social History Tobacco Use Smoking status: Never Smokeless tobacco: Never Tobacco comments: Parents smoked in childhood home. Vaping Use Vaping status: Never Used Substance Use Topics Alcohol use: Yes Drug use: No FAMILY HISTORY: FAMILY HISTORY Problem Relation Age of Onset Cancer Father bone marrow REVIEW OF SYMPTOMS: The review of systems data was entered by the nurse and reviewed by me There are no exam notes on file for this visit. PHYSICAL EXAMINATION: General: The patient is 73 year old male, well nourished, well hydrated in no acute distress. The patient is oriented to time, place, and person. VITALS: Blood pressure 156/76, pulse 80, temperature 36.5 ?C (97.7 ?F), temperature source Temporal, weight 135.8 kg (299 lb 6.4 oz). HEENT: Normal cephalic, ataumatic, pupils are equally round, sclera are anicteric, mucous membranes are moist, oropharynx is clear. Neck has no masses, asymmetry or lymphadenopathy. Thyroid is unremarkable. Respiratory: Clear to auscultation and percussion. Normal respiratory excursion and pattern. Cardiac: Examination is regular rate and rhythm. Abdominal exam: Soft, nontender, with no palpable masses. No hepatosplenomegaly. No palpable hernias. Rectal exam: exam deferred Extremities: no clubbing, cyanosis or edema. No adenopathy. Other: Patient is morbidly obese with a moderately reducible umbilical hernia. LABORATORY VALUES: As Noted RADIOLOGIC STUDIES: As Noted Assessment IMPRESSION: Lipoma of left thigh Intramuscular lipoma (primary encounter diagnosis) Umbilical hernia without obstruction and without gangrene PLAN: I am going to refer him [facility] a robotic umbilical hernia repair. Orthopedics will be consulted for intramuscular lipoma Diagnoses: (D17.9) Intramuscular lipoma (primary encounter diagnosis) (D17.24) Lipoma of left thigh (K42.9) Umbilical hernia without obstruction and without gangrene My findings have been communicated to Dr. Mayen via shared medical record. This note will be forwarded to Dr. Wale Floyd DO. Return to Clinic: The patient is instructed to follow-up with me as needed. Hari Aden III, MD MRI UPPER LEG WO/W IVCON LT Observed: 10:20 AM Status: F Source: [facility] * * *Final Report* * * DATE OF EXAM: Oct 05 2024 10:20AM [facility] [id number] - MRI UPPER LEG WO/W IVCON LT / PROCEDURE REASON: multiple diagnoses * * * * Physician Interpretation * * * * EXAMINATION: MRI UPPER LEG WO/W IVCON LT HISTORY: Lipoma of left thigh Intramuscular lipoma LIPOMAS IN THE LEFT THIGH TECHNIQUE: Routine MRI of the left femur without contrast 10 Elucirem IV COMPARISON: MRI 04/08/2022 and radiographs 10/03/2024 RESULT: Encapsulated 7 x 5 x 4 cm fat signal lesion within the left pectineus muscle without thick septations or nodular enhancement not significantly changed in size since 2021. Additional small fat signal lesion measuring 2 cm in the left vastus lateralis without suspicious enhancement is also unchanged. Partially imaged at signal lesions within the contralateral right vastus intermedius and vastus lateralis muscles. The largest lesion is within the vastus intermedius and measures 4.7 x 2.7 x 1.7 cm. Severe fatty atrophy of the medial left gastrocnemius muscle. Muscle bulk is otherwise maintained. Partially imaged pelvic structures are unremarkable. Bilateral anterosuperior labral tears with right acetabular paralabral cysts. Large [id number]-[id number] images of the tendons and joints are otherwise within normal limits. Localizer images: No significant additional findings. IMPRESSION: Stable lipomatous masses of the left pectineus and vastus lateralis muscles measuring up to 7 cm. No suspicious features. Incidental intramuscular lipomatous masses of the right thigh measuring up to 4.7 cm also without suspicious features. Other incidental findings as above. Track Repair Worker: PENNY Transcribe Date/Time: Oct 05 2024 12:01P Dictated by : HAILEY BENNETT MD This examination was interpreted and the report reviewed and electronically signed by: ANJU RAY MD on Oct 05 2024 4:06PM EST [id number] PROGRESS Observed: 10/05/2024 9:00 AM Status: COMPLETED Source: [facility] HNO ID: [id number] Author: LAWRENCE MA RT(Nedra) Service: ? Author Type: Technologist Type: Progress Notes Filed: 10/05/2024 10:25 Note Text: Radiology Service Progress Note DATE OF SERVICE: October 05, 2024 TIME: 9:07 AM PATIENT IDENTITY VERIFICATION COMPLETED USING TWO (2) STANDARD IDENTIFIERS: Name and Date of confirmed by patient verbally. FALL SCREENING: Has the patient had 2 falls in the last year or 1 fall with injury or currently using an Ambulatory Assistive Device (Walker, Cane, Wheelchair, Crutches, etc.)? No PATIENT GENDER DATA: Assigned male at PATIENT RELEVANT IMPLANT DATA REVIEWED: Yes PATIENT PRESENTS WITH AN IMPLANTABLE OR ATTACHED VENDOR MANAGER: No ALLERGIES: Reviewed and unchanged CONTRAST ALLERGY: NO. EXAM: MRI - CONTRAST TYPE: GROUP II PERIPHERAL IV DATA: Ambulatory: A peripheral IV was started in the Left antecubital site with a Angio cath: 22 gauge. RADIOLOGY DEPARTMENT: MR; Exam(s) Completed: Lower MSK: Femur, left SIGNATURE: RT Amber(R) PATIENT NAME: Joaquin Hendricks DATE: October 05, 2024 TIME: 9:07 AM XR LUMBAR 3V AP/LAT/L5-S1 Observed: 09/05 10:26 AM Status: F Source: [facility] * * *Final Report* * * DATE OF EXAM: Oct 03 2024 10:26AM [facility] [id number] - XR LUMBAR 3V AP/LAT/L5-S1 / PROCEDURE REASON: Degeneration of intervertebral disc of lumbar region, unspecified whether pain p * * * * Physician Interpretation * * * * EXAM: LUMBAR SPINE, 3 VIEWS CLINICAL: 73-year-old male with degeneration of intervertebral disc of the lumbar spine TECHNIQUE: AP, lateral coned down lateral COMPARISON: None RESULTS: Counting reference: Anatomic Variant: None. L4-5 is considered the level of the iliac crest and assume there are 5 lumbar-type vertebrae. Mild levoscoliosis centered at L2. Vertebral bodies and pedicles are intact. Moderate disc space narrowing at L2/L3. Mild narrowing of L4/L5 and marked narrowing at L5/S1 with osteophytes throughout the lumbar spine. Prominent lumbar lordosis. Facet narrowing at L3/L4 through L5/S1. Abdominal aortic calcifications are present. Degenerative changes in visualized thoracic spine. IMPRESSION: DEGENERATIVE DISC AND FACET DISEASE WITH PROMINENT LORDOSIS. Track Repair Worker: PENNY Transcribe Date/Time: Oct 07 2024 7:21P Dictated by : ASHVIN SQUIRES MD This examination was interpreted and the report reviewed and electronically signed by: ASHVIN SQUIRES MD on Oct 07 2024 7:22PM EST [id number] XR FEMUR 2V AP/LAT LT Observed: 10/04/19 10:25 AM Status: F Source: [facility] * * *Final Report* * * DATE OF EXAM: Oct 03 2024 10:25AM [facility] [id number] - XR FEMUR 2V AP/LAT LT / PROCEDURE REASON: * * * * Physician Interpretation * * * * HISTORY: 73-YEAR-OLD MALE WITH . PT STATES HISTORY OF LEFT LEG PAIN FROM LIPOMA NEAR KNEE TECHNIQUE: XR FEMUR 2V AP/LAT LT Laterality: LEFT Number of different views (projections): 2 COMPARISON: None RESULT: Left femur: Superior joint space narrowing with collar osteophytes. Enthesophytes at the greater trochanter. No periosteal reaction. No focal lesion in the degenerative changes of knee joint. Femur. No fracture. Arterial calcifications are present. IMPRESSION: DEGENERATIVE CHANGES OF THE LEFT HIP AND KNEE JOINT. NO ACUTE BONY ABNORMALITY. Track Repair Worker: [employer] Transcribe Date/Time: Oct 07 2024 7:18P Dictated by : ASHVIN SQUIRES MD This examination was interpreted and the report reviewed and electronically signed by: ASHVIN SQUIRES MD on Oct 07 2024 7:19PM EST [id number] Observed: 10/03/2024 10:00 AM Status: COMPLETED Source: [facility] HNO ID: [id number] Author: SVEN SUN RT(R) Service: ? Author Type: Technologist Type: Progress Notes Filed: 10/03/2024 15:37 Note Text: Radiology Service Progress Note PATIENT NAME: Joaquin Hendricks DATE OF SERVICE: October 03, 2024 TIME: 3:37 PM PATIENT IDENTITY VERIFICATION COMPLETED USING TWO (2) IDENTIFIERS: Name and Date of confirmed by patient verbally. FALL SCREENING: Has the patient had 2 falls in the last year or 1 fall with injury or currently using an Ambulatory Assistive Device (Walker, Cane, Wheelchair, Crutches, etc.)? No PATIENT GENDER DATA: Assigned male at PATIENT RELEVANT IMPLANT DATA REVIEWED: Not Applicable PATIENT PRESENTS WITH AN IMPLANTABLE OR ATTACHED VENDOR MANAGER: No RADIOLOGY DEPARTMENT: General X-ray: Exam(s) Completed: Spine X-Ray(s): Lumbar AP / LAT / L5-S1 Lower Extremity X-Ray(s): Femur, Left PERIPHERAL IV DATA: Not applicable SIGNED BY: RT Eddie(R) October 03, 2024 3:37 PM CNPN Observed: 10/03/2024 12:00 AM Status: COMPLETED Source: [facility] Telephone ([email or web address]) JOAQUIN HENDRICKS ([id number]) 1950 M Date Time Provider Department 10/03/24 WALE FLOYD navigayaWS During your visit today, we recorded the following information about you: Polly Bourne, RN 10/03/2024 11:10 AM Signed Pt reports he is scheduled for an MRI this week on Thu. Asking if provider could send an Rx to help take the edge off for him to complete the MRI. Philly Gee. Please advise pt. [phone] Fang Mayen APRN.CNP 10/04/2024 7:26 AM Signed The following approved medication requests have been transmitted electronically. Requested Prescriptions Signed Prescriptions Disp Refills ALPRAZolam (XANAX) 0.25 mg tablet 2 tablet 0 Sig: Take 1 tablet by mouth 30 minutes prior to MRI, may repeat in 15-20 minutes if necessary. Authorizing Provider: FANG MAYEN APRN.[employer] FUSER TENDER PDMP website checked and validated. All prescriptions have been APPROPRIATELY filled. No suspicious activity was identified. 10/04/2024 by Fang Mayen CNP. Monserrat Ferreira LPN 10/04/2024 10:58 AM Signed Phoned patient aware rx sent to pharmacy per Nedra Mayen NP and for him not to be driving himself after taking the medication. Patient said his will be driving him. Allergies As of Date: 10/03/2024 Noted Allergy Reaction LISINOPRIL 03/08/2013 3 - Cough SIMVASTATIN 05/25/2012 14 - Other: See Comments Comments: elevated liver enzyme,elevated muscle enzyme Date Reviewed: 09/30/2024 Reviewed by: Aurelia Hodge PA-C - Fully Assessed Reason for Visit: Medication request for MRI appt [Other] Primary Visit Diagnosis:Situational anxiety [F41.8] Order(s):ALPRAZolam (XANAX) 0.25 mg tabletTake 1 tablet by mouth 30 minutes prior to MRI, may repeat in 15-20 minutes if necessary.Disp: 2 tabletRfl: 0 Prescriptions as of 10/04/2024 - ALPRAZolam (XANAX) 0.25 mg tablet Take 1 tablet by mouth 30 minutes prior to MRI, may repeat in 15-20 minutes if necessary. - rosuvastatin (CRESTOR) 5 mg tablet TAKE 0.5 TAB BY MOUTH EVERY 48 HOURS - allopurinol (ZYLOPRIM) 300 mg tablet Take 1 tablet by mouth once daily. For gout. - aspirin, enteric coated (ECOTRIN LOW STRENGTH) 81 mg EC tablet Take 1 tablet by mouth once daily. Takes every other day noted on 08/26/24 Gabby Copeland MA - fluticasone (FLONASE ALLERGY RELIEF) 50 mcg/actuation nasal spray Use 1 [place] in each nostril once daily. - CPAP/BIPAP/OTHER CPAP 16 DME [facility] - azelastine HCl (ASTEPRO ALLERGY NASAL) Use 1 [place] in the nose as needed. - guaiFENesin (MUCINEX) 600 mg 12 hr tablet Take 1,200 mg by mouth two times a day as needed for cold/allergy symptoms. Per pt - albuterol HFA (PROAIR HFA) 90 mcg/actuation inhaler Inhale 2 Puffs as instructed every 6 hours as needed for wheezing/shortness of breath. - calcium carbonate (CALCIUM 500 ORAL) Take by mouth. - vit A/vit C/vit E/zinc/copper (PRESERVISION AREDS ORAL) Take by mouth. - B.coagul,subtilis/inulin/vit C (CULTURELLE PROBIOTIC-PREBIOTIC ORAL) Take by mouth. - mv-mn/C/glutamin/lysin/expn613 (AIR[place]ORNE, ASCORBATE SODIUM, ORAL) Take by mouth. - tezepelumab-ekko (TEZSPIRE) 210 mg/1.91 mL (110 mg/mL) syringe Inject 1.91 mL subcutaneously every 4 weeks. - fluticasone-salmeterol HFA (ADVAIR HFA) 230-21 mcg/actuation inhaler Inhale 2 Puffs as instructed twice daily. - lansoprazole (PREVACID) 30 mg capsule Take 30 mg by mouth once daily. - montelukast (SINGULAIR) 10 mg tablet Take 10 mg by mouth daily at bedtime. - tamsulosin (FLOMAX) 0.4 mg Take 0.8 mg by mouth once daily. - tiotropium bromide (SPIRIVA RESPIMAT) 1.25 mcg/actuation mist Inhale 2 Puffs as instructed once daily. - ipratropium bromide (ATROVENT) 42 mcg (0.06 %) nasal spray Use 2 Sprays in the nose as needed. - irbesartan (AVAPRO) 150 mg tablet Take 1 tablet by mouth once daily. - loratadine (CLARITIN) 10 mg tablet Take 1 tablet by mouth once daily. - THERAPEUTIC MULTIVITAMIN TAB Take one(1) tablet daily. Problem List As Of Date 10/03/2024 Noted Resolved Anal fissure [K60.2] 08/03/2006 10/30/2011 Blood in stool [K92.1] 09/11/2006 10/30/2011 Hyperlipemia [E78.5] 05/27/2010 04/13/2017 Hypertension [I10] 05/27/2010 Pes planus [M21.40] 10/11/2010 Hyperglycemia [R73.9] 06/16/2011 09/12/2016 Sleep apnea [G47.30] 10/30/2011 09/12/2016 Insomnia [G47.00] 05/31/2012 Obesity [E66.9] 11/27/2012 06/22/2017 Gout attack [M10.9] 02/13/2013 09/12/2016 Gout [M10.9] 02/13/2013 Recurrent kidney stones [N20.0] 02/13/2013 DDD (degenerative disc disease), cervical [M50.*07/08/2013 Asthma [J45.909] 11/21/2014 Chronic sinusitis [J32.9] 11/21/2014 Chronic ethmoidal sinusitis [J32.2] 02/18/2015 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 Encounter Status:Closed by MONSERRAT FERREIRA on 10/04/24 PROGRESS Observed: 09/30/2024 5:23 PM Status: COMPLETED [id number] Author: AURELIA HODGE PA-C Service: ? Author Type: Physician Field Hockey And Lacrosse Coach Type: Progress Notes Filed: 09/30/2024 17:27 Note Text: Orthopaedic Oncology New Patient Evaluation Chief Complaint: Patient presents with: Left Thigh - New Referring Physician: Hari Aden History of Present Illness: Hilton is a 73-year-old male with a history of HTN, HLD, sleep apnea, GERD, and pre-diabetes, presenting with concerns about intramuscular lipomas in the left thigh. 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 He was advised by his previous physician to monitor the lipomas without intervention. However, he has experienced increasing discomfort, including a constant tingling sensation and burning pain after prolonged standing or walking. Hilton notes that the symptoms are most bothersome at night, affecting his sleep. He has attempted to alleviate the discomfort with Voltaren cream and Tylenol PM, with limited success. He denies any significant changes in the size of the lipomas but is concerned about potential nerve compression. Hilton has a history of lower back surgeries, including two L5 procedures, and experiences morning back soreness. He denies any radicular pain similar to previous episodes. He also has a history of multiple pneumonia episodes and a stent placement for a blocked artery. He is currently taking an 81 mg Anton aspirin every other day. He doesn't note significant change in size of the left lateral thigh mass Review of Systems: Constitutional: (+) sleep disturbance Musculoskeletal: (+) left thigh mass, (+) left thigh pain/burning with prolonged standing Neurological: (+) left thigh tingling/burning, (-) foot numbness Skin: (+) left thigh itching sensation PAST MEDICAL HISTORY Diagnosis Date Asthma 11/21/201411/2014: DARIEL +, 20% drop in FEV1 at 25 mg/mL. CAD (coronary artery disease) Chronic sinusitis 11/21/201411/2014 CT sinus. DDD (degenerative disc disease), lumbar GERD (gastroesophageal reflux disease) Glaucoma (increased eye pressure) Bilateral Dr. Hdz Gout Hard of hearing hearing aids, Dr. Carlson Hemorrhage of gastrointestinal tract, unspecified Hypertension Mixed hyperlipidemia Hyperlipidemia Nephrolithiasis seen Dr Lanier Obstructive sleep apnea using CPAP Prediabetes Umbilical hernia PAST SURGICAL HISTORY Procedure Laterality Date COLONOSCOPY [...] OF Deviated septum REMV CATARACT EXTRACAP,INSERT LENS ALLERGIES Allergen Reactions Lisinopril Cough Simvastatin Other: See Comments elevated liver enzyme,elevated muscle enzyme Current Outpatient Medications on File Prior to Visit Medication Sig rosuvastatin (CRESTOR) 5 mg tablet TAKE 0.5 TAB BY MOUTH EVERY 48 HOURS allopurinol (ZYLOPRIM) 300 mg tablet Take 1 tablet by mouth once daily. For gout. aspirin, enteric coated (ECOTRIN LOW STRENGTH) 81 mg EC tablet Take 1 tablet by mouth once daily. Takes every other day noted on 08/26/24 Gabby Copeland MA fluticasone (FLONASE ALLERGY RELIEF) 50 mcg/actuation nasal spray Use 1 [place] in each nostril once daily. CPAP/BIPAP/OTHER CPAP 16 DME [facility] azelastine HCl (ASTEPRO ALLERGY NASAL) Use 1 [place] in the nose as needed. guaiFENesin (MUCINEX) 600 mg 12 hr tablet Take 1,200 mg by mouth two times a day as needed for cold/allergy symptoms. Per pt albuterol HFA (PROAIR HFA) 90 mcg/actuation inhaler Inhale 2 Puffs as instructed every 6 hours as needed for wheezing/shortness of breath. calcium carbonate (CALCIUM 500 ORAL) Take by mouth. vit A/vit C/vit E/zinc/copper (PRESERVISION AREDS ORAL) Take by mouth. B.coagul,subtilis/inulin/vit C (CULTURELLE PROBIOTIC-PREBIOTIC ORAL) Take by mouth. mv-mn/C/glutamin/lysin/ohjr598 (AIRBORNE, ASCORBATE SODIUM, ORAL) Take by mouth. tezepelumab-ekko (TEZSPIRE) 210 mg/1.91 mL (110 mg/mL) syringe Inject 1.91 mL subcutaneously every 4 weeks. fluticasone-salmeterol HFA (ADVAIR HFA) 230-21 mcg/actuation inhaler Inhale 2 Puffs as instructed twice daily. lansoprazole (PREVACID) 30 mg capsule Take 30 mg by mouth once daily. montelukast (SINGULAIR) 10 mg tablet Take 10 mg by mouth daily at bedtime. tamsulosin (FLOMAX) 0.4 mg Take 0.8 mg by mouth once daily. tiotropium bromide (SPIRIVA RESPIMAT) 1.25 mcg/actuation mist Inhale 2 Puffs as instructed once daily. ipratropium bromide (ATROVENT) 42 mcg (0.06 %) nasal spray Use 2 Sprays in the nose as needed. irbesartan (AVAPRO) 150 mg tablet Take 1 tablet by mouth once daily. loratadine (CLARITIN) 10 mg tablet Take 1 tablet by mouth once daily. THERAPEUTIC MULTIVITAMIN TAB Take one(1) tablet daily. No current facility-administered medications on file prior to visit. FAMILY HISTORY Problem Relation Age of Onset Cancer Father bone marrow Social History Tobacco Use Smoking status: Never Smokeless tobacco: Never Tobacco comments: Parents smoked in childhood home. Vaping Use Vaping status: Never Used Substance Use Topics Alcohol use: Yes Drug use: No Physical Examination: Ht 5' 10" (1.78m) Wt 299 lb 13.2 oz (136.0kg) BMI 43.02 kg/(m2). General: alert, oriented, no acute distress HEENT: normocephalic, extraocular movements intact, mucous membranes moist/intact Pulmonary: normal respiratory effort and chest wall excursion - Musculoskeletal: - Left Thigh: - Visible mass on the lateral aspect. - ROM: Full range of motion in all directions. - Right Thigh: - No visible masses. 5x5 cm mass lateral distal thigh. Soft , non TTP. 1.5 pink discoloration of the skin in the area of mass Normal gait No pain with ROM hip and knee Results Reviewed: Labs: - A1C: 5.7 Imaging: - (04/08/2022) MRI of lower extremities: - 2 cm mass without solid enhancement in the distal left vastus lateralis - 6 .5 cm oval mass in the left adductor muscle - 3 cm mass in the right leg Image from OSH- will request images Impression/Plan: 1. 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 The lipomas have been present for approximately 2 years, with increasing discomfort and tingling sensations, particularly at night. No significant change in size reported by the patient, but physical examination suggests possible enlargement. - Ordered updated MRI to assess current size and characteristics of the lipomas. - Discussed potential for surgical removal if lipomas are causing significant discomfort. - Advised patient that topical treatments like Voltaren cream provide temporary relief but are not a definitive solution. - Patient to continue current management with Tylenol PM for nighttime discomfort until further evaluation. 2. Degeneration of intervertebral disc of lumbar region, unspecified whether pain present (M51.369) History of multiple lumbar surgeries, including two procedures on L5. No recent imaging studies available. - Ordered X-ray of the lumbar spine to assess for any degenerative changes that may be contributing to symptoms. These recommendations are being sent back to Hari Aden via Smart C[employer] Senior Client Advisor or "Chart CC" for [facility] Providers. Aurelia Hodge PA-C CNOV Observed: 09/30/2024 1:30 PM Status: COMPLETED Source: [facility] Office Visit (ORTHCF) JOAQUIN HENDRICKS ([id number]) 1950 M Date Time Provider Department 09/30/24 1:30 PM AURELIA HODGE ORTHCF During your visit today, we recorded the following information about you: Weight Height 136 kg 1.778 m Aurelia Hodge PA-C 09/30/2024 2:19 PM Signed We discussed the masses in your legs: - You have two intramuscular lipomas (benign fatty masses) in your left leg and one in your right leg, as noted in your previous MRI report. These masses may be contributing to the tingling, burning, and discomfort you are experiencing, particularly in your left leg. - To better understand the current size and characteristics of these masses, I will order an updated MRI of your legs. This will help us determine if the masses have grown or changed and guide further treatment options. - I will also order an X-ray of your left leg to rule out other potential causes of your symptoms, such as arthritis. - If needed, we can discuss surgical removal of the masses. This would involve removing the masses from the muscle, which may help alleviate your symptoms. However, surgery does require some healing time, and we cannot guarantee complete resolution of your symptoms. - Unfortunately, there is no effective way to "numb" the area or the nerves causing your discomfort. Topical treatments like Voltaren cream may provide temporary relief, but they are not a long-term solution. We discussed your back pain and history of surgeries: - You mentioned a history of two surgeries on your L5 vertebra and ongoing soreness in your lower back. I recommend an updated X-ray of your back to assess for any changes or issues that may be contributing to your symptoms. Next steps: - Please schedule the MRI and X-rays as soon as possible. Once we have the imaging results, we will review them together and discuss the best course of action. - In the meantime, you may continue using jkxu-ton-zkyanfa treatments like Voltaren cream or Tylenol PM for temporary relief, as you have been doing. If your symptoms worsen or you have any new concerns, please contact our office. Aurelia Hodge PA-C 09/30/2024 5:27 PM Signed Orthopaedic Oncology New Patient Evaluation Chief Complaint: Patient presents with: Left Thigh - New Referring Physician: Hari Aden History of Present Illness: Hilton is a 73-year-old male with a history of HTN, HLD, sleep apnea, GERD, and pre-diabetes, presenting with concerns about intramuscular lipomas in the left thigh. 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 He was advised by his previous physician to monitor the lipomas without intervention. However, he has experienced increasing discomfort, including a constant tingling sensation and burning pain after prolonged standing or walking. Hilton notes that the symptoms are most bothersome at night, affecting his sleep. He has attempted to alleviate the discomfort with Voltaren cream and Tylenol PM, with limited success. He denies any significant changes in the size of the lipomas but is concerned about potential nerve compression. Hilton has a history of lower back surgeries, including two L5 procedures, and experiences morning back soreness. He denies any radicular pain similar to previous episodes. He also has a history of multiple pneumonia episodes and a stent placement for a blocked artery. He is currently taking an 81 mg Anton aspirin every other day. He doesn't note significant change in size of the left lateral thigh mass Review of Systems: Constitutional: (+) sleep disturbance Musculoskeletal: (+) left thigh mass, (+) left thigh pain/burning with prolonged standing Neurological: (+) left thigh tingling/burning, (-) foot numbness Skin: (+) left thigh itching sensation PAST MEDICAL HISTORY Diagnosis Date Asthma 11/21/201411/2014: DARIEL +, 20% drop in FEV1 at 25 mg/mL. CAD (coronary artery disease) Chronic sinusitis 11/21/201411/2014 CT sinus. DDD (degenerative disc disease), lumbar GERD (gastroesophageal reflux disease) Glaucoma (increased eye pressure) Bilateral Dr. Hdz Gout Hard of hearing hearing aids, Dr. Carlson Hemorrhage of gastrointestinal tract, unspecified Hypertension Mixed hyperlipidemia Hyperlipidemia Nephrolithiasis seen Dr Lanier Obstructive sleep apnea using CPAP Prediabetes Umbilical hernia PAST SURGICAL HISTORY Procedure Laterality Date COLONOSCOPY [...] L5 and L6 PAST SURGICAL HISTORY OF [address] BARDALES PAST SURGICAL HISTORY OF eye stents for glaucoma PAST SURGICAL HISTORY OF UPPP PAST SURGICAL HISTORY OF Deviated septum REMV CATARACT EXTRACAP,INSERT LENS ALLERGIES Allergen Reactions Lisinopril Cough Simvastatin Other: See Comments elevated liver enzyme,elevated muscle enzyme Current Outpatient Medications on File Prior to Visit Medication Sig rosuvastatin (CRESTOR) 5 mg tablet TAKE 0.5 TAB BY MOUTH EVERY 48 HOURS allopurinol (ZYLOPRIM) 300 mg tablet Take 1 tablet by mouth once daily. For gout. aspirin, enteric coated (ECOTRIN LOW STRENGTH) 81 mg EC tablet Take 1 tablet by mouth once daily. Takes every other day noted on 08/26/24 Gabby Copeland MA fluticasone (FLONASE ALLERGY RELIEF) 50 mcg/actuation nasal spray Use 1 [place] in each nostril once daily. CPAP/BIPAP/OTHER CPAP 16 DME [facility] azelastine HCl (ASTEPRO ALLERGY NASAL) Use 1 [place] in the nose as needed. guaiFENesin (MUCINEX) 600 mg 12 hr tablet Take 1,200 mg by mouth two times a day as needed for cold/allergy symptoms. Per pt albuterol HFA (PROAIR HFA) 90 mcg/actuation inhaler Inhale 2 Puffs as instructed every 6 hours as needed for wheezing/shortness of breath. calcium carbonate (CALCIUM 500 ORAL) Take by mouth. vit A/vit C/vit E/zinc/copper (PRESERVISION AREDS ORAL) Take by mouth. B.coagul,subtilis/inulin/vit C (CULTURELLE PROBIOTIC-PREBIOTIC ORAL) Take by mouth. mv-mn/C/glutamin/lysin/rwow055 (A[place]NE, ASCORBATE SODIUM, ORAL) Take by mouth. tezepelumab-ekko (TEZSPIRE) 210 mg/1.91 mL (110 mg/mL) syringe Inject 1.91 mL subcutaneously every 4 weeks. fluticasone-salmeterol HFA (ADVAIR HFA) 230-21 mcg/actuation inhaler Inhale 2 Puffs as instructed twice daily. lansoprazole (PREVACID) 30 mg capsule Take 30 mg by mouth once daily. montelukast (SINGULAIR) 10 mg tablet Take 10 mg by mouth daily at bedtime. tamsulosin (FLOMAX) 0.4 mg Take 0.8 mg by mouth once daily. tiotropium bromide (SPIRIVA RESPIMAT) 1.25 mcg/actuation mist Inhale 2 Puffs as instructed once daily. ipratropium bromide (ATROVENT) 42 mcg (0.06 %) nasal spray Use 2 Sprays in the nose as needed. irbesartan (AVAPRO) 150 mg tablet Take 1 tablet by mouth once daily. loratadine (CLARITIN) 10 mg tablet Take 1 tablet by mouth once daily. THERAPEUTIC MULTIVITAMIN TAB Take one(1) tablet daily. No current facility-administered medications on file prior to visit. FAMILY HISTORY Problem Relation Age of Onset Cancer Father bone marrow Social History Tobacco Use Smoking status: Never Smokeless tobacco: Never Tobacco comments: Parents smoked in childhood home. Vaping Use Vaping status: Never Used Substance Use Topics Alcohol use: Yes Drug use: No Physical Examination: Ht 5' 10" (1.78m) Wt 299 lb 13.2 oz (136.0kg) BMI 43.02 kg/(m2). General: alert, oriented, no acute distress HEENT: normocephalic, extraocular movements intact, mucous membranes moist/intact Pulmonary: normal respiratory effort and chest wall excursion - Musculoskeletal: - Left Thigh: - Visible mass on the lateral aspect. - ROM: Full range of motion in all directions. - Right Thigh: - No visible masses. 5x5 cm mass lateral distal thigh. Soft , non TTP. 1.5 pink discoloration of the skin in the area of mass Normal gait No pain with ROM hip and knee Results Reviewed: Labs: - A1C: 5.7 Imaging: - (04/08/2022) MRI of lower extremities: - 2 cm mass without solid enhancement in the distal left vastus lateralis - 6 .5 cm oval mass in the left adductor muscle - 3 cm mass in the right leg Image from OSH- will request images Impression/Plan: 1. 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 The lipomas have been present for approximately 2 years, with increasing discomfort and tingling sensations, particularly at night. No significant change in size reported by the patient, but physical examination suggests possible enlargement. - Ordered updated MRI to assess current size and characteristics of the lipomas. - Discussed potential for surgical removal if lipomas are causing significant discomfort. - Advised patient that topical treatments like Voltaren cream provide temporary relief but are not a definitive solution. - Patient to continue current management with Tylenol PM for nighttime discomfort until further evaluation. 2. Degeneration of intervertebral disc of lumbar region, unspecified whether pain present (M51.369) History of multiple lumbar surgeries, including two procedures on L5. No recent imaging studies available. - Ordered X-ray of the lumbar spine to assess for any degenerative changes that may be contributing to symptoms. These recommendations are being sent back to Hari Aden via [employer] Senior Client Advisor or "Chart CC" for [facility] Providers. Aurelia Hodge PA-C Referring Provider: HARI ADEN [[id number]] Allergies As of Date: 09/30/2024 Noted Allergy Reaction LISINOPRIL 03/08/2013 3 - Cough SIMVASTATIN 05/25/2012 14 - Other: See Comments Comments: elevated liver enzyme,elevated muscle enzyme Date Reviewed: 09/30/2024 Reviewed by: Aurelia Hodge PA-C - Fully Assessed Reason for Visit: New [[id number]] Primary Visit Diagnosis:Lipoma of left thigh [D17.24] Other Visit Diagnoses:Intramuscular lipoma [D17.9] Degeneration of intervertebral disc of lumbar region, unspecified whether pain present [M51.369] Order(s):XR FEMUR GENERAL 2V AP/LAT LEFT [1343763] Order #: [id number] FUTURE CONSULT TO ORTHOPAEDICS [9026] Order #: [id number]: 1 MRI UPPER LEG WO/W IVCON LEFT [[id number]] Order #: [id number] FUTURE iv contrast (will be provided with radiology test)MRI Upper Leg LT Inject, intravenously, once for 1dose. No IV access, insert saline lock prior to the beginning of sedation, infusion, injection of imaging exam. Discontinue saline lock post exam. If Pt. has a central line or IVAD, may access for administration according to line specific nursing protocol. Once exam is complete flush line and de-access according to line specific nursing protocol in the MR contrast administration guidelines link.Disp: 1 EachRfl: 0 XR LUMBAR GENERAL 3V AP/LAT/L5-S1 [[id number]] Order #: [id number] FUTURE Prescriptions as of 09/30/2024 - iv contrast (will be provided with radiology test) MRI Upper Leg LT Inject, intravenously, once for 1dose. No IV access, insert saline lock prior to the beginning of sedation, infusion, injection of imaging exam. Discontinue saline lock post exam. If Pt. has a central line or IVAD, may access for administration according to line specific nursing protocol. Once exam is complete flush line and de-access according to line specific nursing protocol in the MR contrast administration guidelines link. - rosuvastatin (CRESTOR) 5 mg tablet TAKE 0.5 TAB BY MOUTH EVERY 48 HOURS - allopurinol (ZYLOPRIM) 300 mg tablet Take 1 tablet by mouth once daily. For gout. - aspirin, enteric coated (ECOTRIN LOW STRENGTH) 81 mg EC tablet Take 1 tablet by mouth once daily. Takes every other day noted on 08/26/24 Gabby Copeland MA - fluticasone (FLONASE ALLERGY RELIEF) 50 mcg/actuation nasal spray Use 1 [place] in each nostril once daily. - CPAP/BIPAP/OTHER CPAP 16 DME [facility] - azelastine HCl (ASTEPRO ALLERGY NASAL) Use 1 [place] in the nose as needed. - guaiFENesin (MUCINEX) 600 mg 12 hr tablet Take 1,200 mg by mouth two times a day as needed for cold/allergy symptoms. Per pt - albuterol HFA (PROAIR HFA) 90 mcg/actuation inhaler Inhale 2 Puffs as instructed every 6 hours as needed for wheezing/shortness of breath. - calcium carbonate (CALCIUM 500 ORAL) Take by mouth. - vit A/vit C/vit E/zinc/copper (PRESERVISION AREDS ORAL) Take by mouth. - B.coagul,subtilis/inulin/vit C (CULTURELLE PROBIOTIC-PREBIOTIC ORAL) Take by mouth. - mv-mn/C/glutamin/lysin/mqfd488 (A[place]ORNE, ASCORBATE SODIUM, ORAL) Take by mouth. - tezepelumab-ekko (TEZSPIRE) 210 mg/1.91 mL (110 mg/mL) syringe Inject 1.91 mL subcutaneously every 4 weeks. - fluticasone-salmeterol HFA (ADVAIR HFA) 230-21 mcg/actuation inhaler Inhale 2 Puffs as instructed twice daily. - lansoprazole (PREVACID) 30 mg capsule Take 30 mg by mouth once daily. - montelukast (SINGULAIR) 10 mg tablet Take 10 mg by mouth daily at bedtime. - tamsulosin (FLOMAX) 0.4 mg Take 0.8 mg by mouth once daily. - tiotropium bromide (SPIRIVA RESPIMAT) 1.25 mcg/actuation mist Inhale 2 Puffs as instructed once daily. - ipratropium bromide (ATROVENT) 42 mcg (0.06 %) nasal spray Use 2 Sprays in the nose as needed. - irbesartan (AVAPRO) 150 mg tablet Take 1 tablet by mouth once daily. - loratadine (CLARITIN) 10 mg tablet Take 1 tablet by mouth once daily. - THERAPEUTIC MULTIVITAMIN TAB Take one(1) tablet daily. Problem List As Of Date 09/30/2024 Noted Resolved Anal fissure [K60.2] 08/03/2006 10/30/2011 Blood in stool [K92.1] 09/11/2006 10/30/2011 Hyperlipemia [E78.5] 05/27/2010 04/13/2017 Hypertension [I10] 05/27/2010 Pes planus [M21.40] 10/11/2010 Hyperglycemia [R73.9] 06/16/2011 09/12/2016 Sleep apnea [G47.30] 10/30/2011 09/12/2016 Insomnia [G47.00] 05/31/2012 Obesity [E66.9] 11/27/2012 06/22/2017 Gout attack [M10.9] 02/13/2013 09/12/2016 Gout [M10.9] 02/13/2013 Recurrent kidney stones [N20.0] 02/13/2013 DDD (degenerative disc disease), cervical [M50.*07/08/2013 Asthma [J45.909] 11/21/2014 Chronic sinusitis [J32.9] 11/21/2014 Chronic ethmoidal sinusitis [J32.2] 02/18/2015 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 These masses may be contributing to the tingling, burning, and discomfort you are experiencing, particularly in your left leg. - To better understand the current size and characteristics of these masses, I will order an updated MRI of your legs. This will help us determine if the masses have grown or changed and guide further treatment options. - I will also order an X-ray of your left leg to rule out other potential causes of your symptoms, such as arthritis. - If needed, we can discuss surgical removal of the masses. This would involve removing the masses from the muscle, which may help alleviate your symptoms. However, surgery does require some healing time, and we cannot guarantee complete resolution of your symptoms. - Unfortunately, there is no effective way to "numb" the area or the nerves causing your discomfort. Topical treatments like Voltaren cream may provide temporary relief, but they are not a long-term solution. We discussed your back pain and history of surgeries: - You mentioned a history of two surgeries on your L5 vertebra and ongoing soreness in your lower back. I recommend an updated X-ray of your back to assess for any changes or issues that may be contributing to your symptoms. Next steps: - Please schedule the MRI and X-rays as soon as possible. Once we have the imaging results, we will review them together and discuss the best course of action. - In the meantime, you may continue using aaom-ial-bvlpdsm treatments like Voltaren cream or Tylenol PM for temporary relief, as you have been doing. If your symptoms worsen or you have any new concerns, please contact our office. Prescriptions ordered this encounter Disp Refills Start End IV CONTRAST (RADIOLOGY PROCEDURE) - * 1 Ea* 0 09/30/2024 10/01/2024 Class: In Office Sig: MRI Upper Leg LT Inject, intravenously, once for 1dose. No IV access, insert saline lock prior to the beginning of sedation, infusion, injection of imaging exam. Discontinue saline lock post exam. If Pt. has a central line or IVAD, may access for administration according to line specific nursing protocol. Once exam is complete flush line and de-access according to line specific nursing protocol in the MR contrast administration guidelines link. Letter Text Encounter Status:Closed by AURELIA HODGE on 09/30/24 ANUSHAOV Observed: 09/19/2024 4:00 PM Status: COMPLETED Source: [facility] Office Visit (GENSWS) JOAQUIN HENDRICKS ([id number]) 1950 M Date Time Provider Department 09/19/24 4:00 PM HARI ADEN During your visit today, we recorded the following information about you: Temperature Pulse Blood pressure Weight 97.7 degrees 80/minute 156/76 135.8 kg Hari Aedn MD 10/05/2024 12:40 PM Signed HISTORY AND PHYSICAL Joaquin Hendricks 1950 REFERRING PHYSICIAN: Fang Mayen APRN* CHIEF COMPLAINT: Consult HPI: The patient is a 73 year old male with a complaint of Umbilical hernia as well as a lipoma on his left thigh. Patient has had this hernia for some time was seen by a surgeon in [place] was told that he needed to lose weight prior to any surgeries.. The patient is being seen by me today at the request of Dr. 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 PAST MEDICAL HISTORY Diagnosis Date Asthma 11/21/201411/2014: DARIEL +, 20% drop in FEV1 at 25 mg/mL. CAD (coronary artery disease) Chronic sinusitis 11/21/201411/2014 CT sinus. DDD (degenerative disc disease), lumbar GERD (gastroesophageal reflux disease) Glaucoma (increased eye pressure) Bilateral Dr. Andreina Elder Hard of hearing hearing aids, Dr. Carlson Hemorrhage of gastrointestinal tract, unspecified Hypertension Mixed hyperlipidemia Hyperlipidemia Nephrolithiasis seen Dr Lanier Obstructive sleep apnea using CPAP Prediabetes Umbilical hernia PAST SURGICAL HISTORY Procedure Laterality Date COLONOSCOPY [...] OF Deviated septum REMV CATARACT EXTRACAP,INSERT LENS Current Outpatient Medications Medication Sig ALPRAZolam (XANAX) 0.25 mg tablet Take 1 tablet by mouth 30 minutes prior to MRI, may repeat in 15-20 minutes if necessary. rosuvastatin (CRESTOR) 5 mg tablet TAKE 0.5 TAB BY MOUTH EVERY 48 HOURS allopurinol (ZYLOPRIM) 300 mg tablet Take 1 tablet by mouth once daily. For gout. aspirin, enteric coated (ECOTRIN LOW STRENGTH) 81 mg EC tablet Take 1 tablet by mouth once daily. Takes every other day noted on 08/26/24 Gabby Copeland MA fluticasone (FLONASE ALLERGY RELIEF) 50 mcg/actuation nasal spray Use 1 [place] in each nostril once daily. CPAP/BIPAP/OTHER CPAP 16 DME [facility] azelastine HCl (ASTEPRO ALLERGY NASAL) Use 1 [place] in the nose as needed. guaiFENesin (MUCINEX) 600 mg 12 hr tablet Take 1,200 mg by mouth two times a day as needed for cold/allergy symptoms. Per pt albuterol HFA (PROAIR HFA) 90 mcg/actuation inhaler Inhale 2 Puffs as instructed every 6 hours as needed for wheezing/shortness of breath. calcium carbonate (CALCIUM 500 ORAL) Take by mouth. vit A/vit C/vit E/zinc/copper (PRESERVISION AREDS ORAL) Take by mouth. B.coagul,subtilis/inulin/vit C (CULTURELLE PROBIOTIC-PREBIOTIC ORAL) Take by mouth. mv-mn/C/glutamin/lysin/zsof980 ([place], ASCORBATE SODIUM, ORAL) Take by mouth. tezepelumab-ekko (TEZSPIRE) 210 mg/1.91 mL (110 mg/mL) syringe Inject 1.91 mL subcutaneously every 4 weeks. fluticasone-salmeterol HFA (ADVAIR HFA) 230-21 mcg/actuation inhaler Inhale 2 Puffs as instructed twice daily. lansoprazole (PREVACID) 30 mg capsule Take 30 mg by mouth once daily. montelukast (SINGULAIR) 10 mg tablet Take 10 mg by mouth daily at bedtime. tamsulosin (FLOMAX) 0.4 mg Take 0.8 mg by mouth once daily. tiotropium bromide (SPIRIVA RESPIMAT) 1.25 mcg/actuation mist Inhale 2 Puffs as instructed once daily. ipratropium bromide (ATROVENT) 42 mcg (0.06 %) nasal spray Use 2 Sprays in the nose as needed. irbesartan (AVAPRO) 150 mg tablet Take 1 tablet by mouth once daily. loratadine (CLARITIN) 10 mg tablet Take 1 tablet by mouth once daily. THERAPEUTIC MULTIVITAMIN TAB Take one(1) tablet daily. No current facility-administered medications for this visit. ALLERGIES: Lisinopril and Simvastatin PERSONAL HISTORY: Social History Tobacco Use Smoking status: Never Smokeless tobacco: Never Tobacco comments: Parents smoked in childhood home. Vaping Use Vaping status: Never Used Substance Use Topics Alcohol use: Yes Drug use: No FAMILY HISTORY: FAMILY HISTORY Problem Relation Age of Onset Cancer Father bone marrow REVIEW OF SYMPTOMS: The review of systems data was entered by the nurse and reviewed by me There are no exam notes on file for this visit. PHYSICAL EXAMINATION: General: The patient is 73 year old male, well nourished, well hydrated in no acute distress. The patient is oriented to time, place, and person. VITALS: Blood pressure 156/76, pulse 80, temperature 36.5 ?C (97.7 ?F), temperature source Temporal, weight 135.8 kg (299 lb 6.4 oz). HEENT: Normal cephalic, ataumatic, pupils are equally round, sclera are anicteric, mucous membranes are moist, oropharynx is clear. Neck has no masses, asymmetry or lymphadenopathy. Thyroid is unremarkable. Respiratory: Clear to auscultation and percussion. Normal respiratory excursion and pattern. Cardiac: Examination is regular rate and rhythm. Abdominal exam: Soft, nontender, with no palpable masses. No hepatosplenomegaly. No palpable hernias. Rectal exam: exam deferred Extremities: no clubbing, cyanosis or edema. No adenopathy. Other: Patient is morbidly obese with a moderately reducible umbilical hernia. LABORATORY VALUES: As Noted RADIOLOGIC STUDIES: As Noted Assessment IMPRESSION: Lipoma of left thigh Intramuscular lipoma (primary encounter diagnosis) Umbilical hernia without obstruction and without gangrene PLAN: I am going to refer him [place] [facility] for a robotic umbilical hernia repair. Orthopedics will be consulted for intramuscular lipoma Diagnoses: (D17.9) Intramuscular lipoma (primary encounter diagnosis) (D17.24) Lipoma of left thigh (K42.9) Umbilical hernia without obstruction and without gangrene My findings have been communicated to Dr. Mayen via shared medical record. This note will be forwarded to Dr. Wale Floyd DO. Return to Clinic: The patient is instructed to follow-up with me as needed. Hari Aden III, MD Referring Provider: FANG MAYEN [[id number]] Allergies As of Date: 09/19/2024 Noted Allergy Reaction LISINOPRIL 03/08/2013 3 - Cough SIMVASTATIN 05/25/2012 14 - Other: See Comments Comments: elevated liver enzyme,elevated muscle enzyme Date Reviewed: 09/19/2024 Reviewed by: Felicia Jorgensen RN - Fully Assessed Reason for Visit: Consult [[id number]] Primary Visit Diagnosis:Intramuscular lipoma [D17.9] Other Visit Diagnoses:Lipoma of left thigh [D17.24] Umbilical hernia without obstruction and without gangrene [K42.9] Order(s):CONSULT TO GENERAL SURGERY [9011] Order #: [id number]: 1 CONSULT TO ORTHOPAEDICS [9026] Order #: [id number]: 1 FUTURE CONSULT TO GENERAL SURGERY [9011] Order #: [id number]: 1 FUTURE Prescriptions as of 10/05/2024 - ALPRAZolam (XANAX) 0.25 mg tablet Take 1 tablet by mouth 30 minutes prior to MRI, may repeat in 15-20 minutes if necessary. - rosuvastatin (CRESTOR) 5 mg tablet TAKE 0.5 TAB BY MOUTH EVERY 48 HOURS - allopurinol (ZYLOPRIM) 300 mg tablet Take 1 tablet by mouth once daily. For gout. - aspirin, enteric coated (ECOTRIN LOW STRENGTH) 81 mg EC tablet Take 1 tablet by mouth once daily. Takes every other day noted on 08/26/24 Gabby Copeland MA - fluticasone (FLONASE ALLERGY RELIEF) 50 mcg/actuation nasal spray Use 1 [place] in each nostril once daily. - CPAP/BIPAP/OTHER CPAP 16 DME [facility] - azelastine HCl (ASTEPRO ALLERGY NASAL) Use 1 [place] in the nose as needed. - guaiFENesin (MUCINEX) 600 mg 12 hr tablet Take 1,200 mg by mouth two times a day as needed for cold/allergy symptoms. Per pt - albuterol HFA (PROAIR HFA) 90 mcg/actuation inhaler Inhale 2 Puffs as instructed every 6 hours as needed for wheezing/shortness of breath. - calcium carbonate (CALCIUM 500 ORAL) Take by mouth. - vit A/vit C/vit E/zinc/copper (PRESERVISION AREDS ORAL) Take by mouth. - B.coagul,subtilis/inulin/vit C (CULTURELLE PROBIOTIC-PREBIOTIC ORAL) Take by mouth. - mv-mn/C/glutamin/lysin/avlx836 ([place], ASCORBATE SODIUM, ORAL) Take by mouth. - tezepelumab-ekko (TEZSPIRE) 210 mg/1.91 mL (110 mg/mL) syringe Inject 1.91 mL subcutaneously every 4 weeks. - fluticasone-salmeterol HFA (ADVAIR HFA) 230-21 mcg/actuation inhaler Inhale 2 Puffs as instructed twice daily. - lansoprazole (PREVACID) 30 mg capsule Take 30 mg by mouth once daily. - montelukast (SINGULAIR) 10 mg tablet Take 10 mg by mouth daily at bedtime. - tamsulosin (FLOMAX) 0.4 mg Take 0.8 mg by mouth once daily. - tiotropium bromide (SPIRIVA RESPIMAT) 1.25 mcg/actuation mist Inhale 2 Puffs as instructed once daily. - ipratropium bromide (ATROVENT) 42 mcg (0.06 %) nasal spray Use 2 Sprays in the nose as needed. - irbesartan (AVAPRO) 150 mg tablet Take 1 tablet by mouth once daily. - loratadine (CLARITIN) 10 mg tablet Take 1 tablet by mouth once daily. - THERAPEUTIC MULTIVITAMIN TAB Take one(1) tablet daily. Problem List As Of Date 09/19/2024 Noted Resolved Anal fissure [K60.2] 08/03/2006 10/30/2011 Blood in stool [K92.1] 09/11/2006 10/30/2011 Hyperlipemia [E78.5] 05/27/2010 04/13/2017 Hypertension [I10] 05/27/2010 Pes planus [M21.40] 10/11/2010 Hyperglycemia [R73.9] 06/16/2011 09/12/2016 Sleep apnea [G47.30] 10/30/2011 09/12/2016 Insomnia [G47.00] 05/31/2012 Obesity [E66.9] 11/27/2012 06/22/2017 Gout attack [M10.9] 02/13/2013 09/12/2016 Gout [M10.9] 02/13/2013 Recurrent kidney stones [N20.0] 02/13/2013 DDD (degenerative disc disease), cervical [M50.*07/08/2013 Asthma [J45.909] 11/21/2014 Chronic sinusitis [J32.9] 11/21/2014 Chronic ethmoidal sinusitis [J32.2] 02/18/2015 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 GERD (gastroesophageal reflux disease) [K21.9] Nephrolithiasis [N20.0] 06/22/2017 Mixed hyperlipidemia [E78.2] Obstructive sleep apnea [G47.33] Morbid obesity (HCC) [E66.01] Umbilical hernia [K42.9] Prediabetes [R73.03] 09/12/2016 Colon cancer screening [Z12.11] 05/15/2017 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] 05/25/2018 Epithelial inclusion cyst [L72.0] 06/10/2018 Encounter Status:Closed by HARI ADEN on 10/05/24 CBC PNL BLD AUTO Collected: 5 12:24 PM Status: F Source: [facility] Order Comment: Specimen Type : BLOOD SPECIMEN Ordering Facility: [facility] Address: [address] [place] [address] TYPE CODE TESTS RESULT OUT OF RANGE REFERENCE UNITS LAB 6690-2([facility]) WBC # Bld Auto 7.61 3.70-11.00 k/uL LAB 789-8(LOINC) RBC # Bld Auto 5.11 4.20-6.00 m/uL LAB 718-7(LOINC) Hgb Bld-mCnc 15.1 13.0-17.0 g/dL LAB 4544-3([facility]) Hct VFr Bld Auto 47.4 39.0-51.0 % LAB 787-2(LOINC) MCV RBC Auto 92.8 80.0-100.0 fL LAB 785-6([facility]) MCH RBC Qn Auto 29.5 26.0-34.0 pg LAB 786-4([facility]) MCHC RBC Auto-mCnc 31.9 30.5-36.0 g/dL LAB 63833-4([facility]) RDW RBC-Rto 14.1 11.5-15.0 % LAB 777-3(INC) Platelet # Bld Auto 213 150-400 k/uL LAB 05001-1([facility]) PMV Bld Auto 10.6 9.0-12.7 fL LAB 771-6([facility]) nRBC # Bld Auto <0.01 <0.01 k/uL Performed By: #### 46121-2 # ### [facility] CLIA [id number] [address] [place] [address] [place] DEPRECATED HGB A1C BLD Collected: 08/26 12:24 PM Status: F Source: [facility] Order Comment: Specimen Type : BLOOD SPECIMEN Ordering Facility: [facility] Address: [address] [place] [address] TYPE CODE TESTS RESULT OUT OF RANGE REFERENCE UNITS LAB 4548-4([facility]) HbA1c MFr Bld 5.4 4.3-5.6 % Result Comment: [place] [employer] guidelines indicate that patients with HgbA1c in the range 5.7-6.4% are at increased risk for development of diabetes, and intervention by lifestyle modification may be beneficial. HgbA1c greater or equal to 6.5% is considered diagnostic of diabetes. LAB 29329-1([facility]) Est. average glucose Bld gHb Est-mCnc 108 mg/dL Result Comment: eAG: (Estima antonio average glucose) is a calculated value from HgbA1c and is compliance representative dealer of the average blood glucose level in the last 2-3 month period. Performed By: #### 43290-4 # ### [facility] CLIA [id number] [address] [place] [id number] [place] [address] [place] COMP METAB 2000 PNL SERPL Collected: 12:24 PM Status: F Source: [facility] Order Comment: Specimen Type : BLOOD SPECIMEN Ordering Facility: [facility] Address: [address] [place] [address] TYPE CODE TESTS RESULT OUT OF RANGE REFERENCE UNITS LAB 2885-2(INC) Prot SerPl-mCnc 7.2 6.3-8.0 g/dL LAB 1751-7(LOINC) Albumin SerPl-mCnc 4.7 3.9-4.9 g/dL LAB 37009-9(INC) Calcium SerPl-mCnc 10.3 High 8.5-10.2 mg/dL LAB 1975-2(LOINC) Bilirub SerPl-mCnc 0.7 0.2-1.3 mg/dL LAB 6768-6(INC) ALP SerPl-cCnc 93 38-113 U/L LAB 1920-8(LOINC) AST SerPl-cCnc 30 14-40 U/L LAB 1742-6(LOINC) ALT SerPl-cCnc 30 10-54 U/L LAB 2345-7(INC) Glucose SerPl-mCnc 103 High 74-99 mg/dL Result Comment: The [place] [employer] Association (ADA) provides guidance for cutoff values for fasting glucose and random glucose. The ADA defines fasting as no caloric intake for at least 8 hours. Fasting plasma glucose results between 100 to 125 mg/dL indicate increased risk for diabetes (prediabetes). Fasting plasma glucose results greater than or equal to 126 mg/dL meet the criteria for diagnosis of diabetes. In the absence of unequivocal hyperglycemia, results should be confirmed by repeat testing. In a patient with classic symptoms of hyperglycemia or hyperglycemic crisis, random plasma glucose results greater than or equal to 200 mg/dL meet the criteria for diagnosis of diabetes. Reference: Standards of Medical Care in Diabetes 2016, [place] [employer] Association. Diabetes Care. 2016.39(Suppl 1). LAB 3094-0(LOINC) BUN SerPl-mCnc 17 9-24 mg/ dL LAB 2160-0(LOINC) Creat SerPl-mCnc 0.99 0.73-1.22 mg/dL LAB 2951-2(LOINC) Sodium SerPl-sCnc 140 136-144 mmol/L LAB 2823-3(LOINC) Potassium SerPl-sCnc 4.4 3.7-5.1 mmol/L LAB 2075-0(LOINC) Chloride SerPl-sCnc 103 98-107 mmol/L LAB 2027-9(LOINC) CO2 SerPl-sCnc 24 22-30 mmo l/L LAB 52589-3(LOINC) Anion Gap SerPl-sCnc 13 8-15 mmol/L LAB 01796-1(LOINC) Creatinine + eGFR Pnl SerPlBld 81 >=60 mL/min/1 .73m??? Result Comment: Estimated Gl omerular Filtration Rate (eGFR) is calculated using the 2020 CKD-EPI creatinine equation. This equation utilizes serum creatinine, sex, and age as parameters. The creatinine assay has traceable calibration to isotope dilution-mass spectrometry. Refer to KDIGO guidelines for clinical interpretation. In patients with unstable renal function, e.g. those with acute kidney injury, the eGFR may not accurately reflect actual GFR. Performed By: #### 2132-9, 3 016-3, 68935-4 #### [facility] CLIA [id number] [address] [place] [address] [place] VIT B12 SERPL-MCNC Collected: 5 12:24 PM Status: F Source: [facility] Order Comment: Specimen Type : BLOOD SPECIMEN Ordering Facility: [facility] Address: [address] [place] [address] TYPE CODE TESTS RESULT OUT OF RANGE REFERENCE UNITS LAB 2132-9(LOINC) Vit B12 SerPl-mCnc 013 292-9089 pg/mL Performed By: #### 2132-9, 3 016-3, 13796-9 #### [facility] CLIA [id number] [address] [place] [address] OF [facility] TSH SERPL-ACNC Collected: 12:24 PM Status: F Source: [facility] Order Comment: Specimen Type : BLOOD SPECIMEN Ordering Facility: [facility] Address: [address] [place] [address] TYPE CODE TESTS RESULT OUT OF RANGE REFERENCE UNITS LAB 3016-3(LOINC) TSH SerPl-aCnc 2.870 0.270-4.200 mIU/L Performed By: #### 2132-9, 3 016-3, 79380-1 #### [facility] CLIA [id number] [address] [place] [address] 25(OH)D3 SERPL-MCNC Collected: 08/26/19 12:24 PM Status: F Source: [facility] Order Comment: Specimen Type : BLOOD SPECIMEN Ordering Facility: [facility] Address: [address] [place] [address] TYPE CODE TESTS RESULT OUT OF RANGE REFERENCE UNITS LAB 1988-3(LOINC) 25(OH)D3 SerPl-mCnc 37.3 31.0-80.0 ng/mL Result Comment: Classificati on of 25 OH Vitamin D status: Deficiency/Insufficiency: < or = 30 ng/ml. Sufficiency/Optimal Levels: 31-80 ng/mL Toxicity: > 100 ng/mL. Test performed by chemiluminescent immunoassay. Performed By: #### 1989-3 ## ## [facility] CLIA [id number] [address] [place] [address] [place] PROGRESS Observed: 08/26/2024 11:05 AM Status: COMPLETED Source: [facility] HNO ID: [id number] Author: FANG MAYEN APRN.COLLAR STAY FUSER TENDER Service: ? Author Type: Nurse Practitioner Type: Progress Notes Filed: 08/26/2024 14:35 Note Text: Chief Complaint Patient presents with: Establish Care HPI Joaquin Hendricks is a 73 year old male who presents here today for Above Complaints.. Dr. Ramos and Dr. Dior manages asthma. States this is well-managed GERD - managed well with prevacid Glaucoma - Sees eye doctor regularly at [facility] with Dr. Salazar. Gout- well under control, does not have flare-ups often, less than once a year. States he watches what he eats and this helps. Takes allopurinol 300mg daily History of kidney stones - sees Dr. Paris, last kidney stone was last fall. Hypertension - well managed. Does not monitor BP readings at home. Denies headaches, reports swelling in his legs occasionally. Sleep apnea - wears CPAP and is benefiting from this Chronic sinusitis - was getting sinus infections possibly d/t CPAP. Is cleaning regularly and hasn't had a sinus infection in a while. Sees Dr. Carlson regularly for hearing and hearing-aid tests Hyperlipidemia - diet is "not great". States he consumes a lot of calories. Exercise - not currently exercising Umbilical hernia - states has had for one year. Was seen by general surgeon Dr. Mac asn was told nothing can be fixed surgically until he is able to loose 20 or more lb. Hx of back surgery 20 years ago for degenerative disc disease. Lipoma - reports he has 3 lipomas in his left thigh was identified by MRI. States it hurts to stand, walk, and keeps him up at night. Was told by previous PCP that it couldn't be removed surgically because it is in the muscle. Past medical history, appointments, medications, allergies reviewed. Previous Medical History PAST MEDICAL HISTORY Diagnosis Date Asthma 11/21/201411/2014: DARIEL +, 20% drop in FEV1 at 25 mg/mL. CAD (coronary artery disease) Chronic sinusitis 11/21/201411/2014 CT sinus. DDD (degenerative disc disease), lumbar GERD (gastroesophageal reflux disease) Glaucoma (increased eye pressure) Bilateral Dr. Hdz Gout Hard of hearing hearing aids, Dr. Carlson Hemorrhage of gastrointestinal tract, unspecified Hypertension Mixed hyperlipidemia Hyperlipidemia Nephrolithiasis seen Dr Lanier Obstructive sleep apnea using CPAP Prediabetes Umbilical hernia Previous Surgical History PAST SURGICAL HISTORY Procedure Laterality Date COLONOSCOPY [...] OF Deviated septum REMV CATARACT EXTRACAP,INSERT LENS Family History FAMILY HISTORY Problem Relation Age of Onset Cancer Father bone marrow Patient Allergies ALLERGIES Allergen Reactions Lisinopril Cough Simvastatin Other: See Comments elevated liver enzyme,elevated muscle enzyme Current Medications Current Outpatient Medications on File Prior to Visit Medication Sig fluticasone (FLONASE ALLERGY RELIEF) 50 mcg/actuation nasal spray Use 1 [place] in each nostril once daily. CPAP/BIPAP/OTHER CPAP 16 DME [employer] azelastine HCl (ASTEPRO ALLERGY NASAL) Use 1 [place] in the nose as needed. guaiFENesin (MUCINEX) 600 mg 12 hr tablet Take 1,200 mg by mouth two times a day as needed for cold/allergy symptoms. Per pt albuterol HFA (PROAIR HFA) 90 mcg/actuation inhaler Inhale 2 Puffs as instructed every 6 hours as needed for wheezing/shortness of breath. calcium carbonate (CALCIUM 500 ORAL) Take by mouth. vit A/vit C/vit E/zinc/copper (PRESERVISION AREDS ORAL) Take by mouth. B.coagul,subtilis/inulin/vit C (CULTURELLE PROBIOTIC-PREBIOTIC ORAL) Take by mouth. mv-mn/C/glutamin/lysin/coaf344 (AIRBORNE, ASCORBATE SODIUM, ORAL) Take by mouth. tezepelumab-ekko (TEZSPIRE) 210 mg/1.91 mL (110 mg/mL) syringe Inject 1.91 mL subcutaneously every 4 weeks. fluticasone-salmeterol HFA (ADVAIR HFA) 230-21 mcg/actuation inhaler Inhale 2 Puffs as instructed twice daily. lansoprazole (PREVACID) 30 mg capsule Take 30 mg by mouth once daily. montelukast (SINGULAIR) 10 mg tablet Take 10 mg by mouth daily at bedtime. tamsulosin (FLOMAX) 0.4 mg Take 0.8 mg by mouth once daily. tiotropium bromide (SPIRIVA RESPIMAT) 1.25 mcg/actuation mist Inhale 2 Puffs as instructed once daily. ipratropium bromide (ATROVENT) 42 mcg (0.06 %) nasal spray Use 2 Sprays in the nose as needed. rosuvastatin (CRESTOR) 5 mg tablet Take 0.5 tablets by mouth every 48 hours. irbesartan (AVAPRO) 150 mg tablet Take 1 tablet by mouth once daily. allopurinol (ZYLOPRIM) 300 mg tablet Take 1 tablet by mouth once daily. For gout. loratadine (CLARITIN) 10 mg tablet Take 1 tablet by mouth once daily. aspirin, enteric coated (ECOTRIN LOW STRENGTH) 81 mg EC tablet Take 1 tablet by mouth once daily. (Patient taking differently: Take 81 mg by mouth once daily. Takes every other day noted on 08/26/24 Gabby Copeland MA) THERAPEUTIC MULTIVITAMIN TAB Take one(1) tablet daily. No current facility-administered medications on file prior to visit. Social History Social History Tobacco Use Smoking status: Never Smokeless tobacco: Never Tobacco comments: Parents smoked in childhood home. Vaping Use Vaping status: Never Used Substance Use Topics Alcohol use: Yes Drug use: No Review of Symptoms REVIEW OF SYSTEMS See HPI, otherwise negative EXAM: BP 126/78 (BP Site: Left Arm, BP Position: Sitting, BP Cuff Size: Large Adult) Pulse 63 Resp 16 Wt 136 kg (299 lb 12.8 oz) SpO2 99% BMI 43.95 kg/m? General Appearance: Well appearing, alert, in no acute distress, well-hydrated, well nourished.. Ears: External ears normal, canals clear. Neck: Supple, no adenopathy; thyroid symmetric, normal size, no bruits. Lungs: Lungs clear to auscultation. No wheezing, rhonchi, rales.. Heart: RRR without murmur, gallop, or rubs. No ectopy. Abdomen: Normal abdominal exam, Abdomen soft, non-tender. Bowel sounds normal. No masses, organomegaly, Positive findings: umbilical hernia, obese. Extremities: Edema: Bilateral pitting edema +1. Peripheral Pulses: Normal. Psychiatric: pleasant, cooperative Health Maintenance List Depression Screening Never done Anxiety Screening Never done BP Controlled (<130/80) Never done Diabetes Screening due on 10/16/2021 Advance Directive Discussion Never done Covid-19 Vaccine() due on 10/28/2024 Annual PCP Team Chronic Disease Visit due on 08/26/2025 Colorectal Cancer Screening due on 06/24/2027 Lipid Screening due on 08/10/2029 DTaP,Tdap,Td Vaccine(3 - Td or Tdap) due on 08/18/2033 Spirometry Completed Influenza Vaccine Completed RSV Vaccine Completed Hepatitis C Screening Completed Shingrix Vaccine Completed Pneumococcal Vaccine: 50+ Completed Data reviewed Previous notes, office notes ASSESSMENT/PLAN: 1. Encounter to establish care - ICD9: V65.8, ICD10: Z76.89 (primary diagnosis) - COMPLETE BLOOD COUNT - COMPREHENSIVE METABOLIC PANEL - THYROID STIMULATING HORMONE - HEMOGLOBIN A1C - VITAMIN D 25 HYDROXY - VITAMIN B12 2. Screening for depression - ICD9: V79.0, ICD10: Z13.31 - DEPRESSION SCREENING 3. Encounter for screening examination for other mental health and behavioral disorders - ICD9: V79.8, ICD10: Z13.39 - ANXIETY SCREENING 4. Lipoma of left thigh - ICD9: 214.8, ICD10: D17.24 - CONSULT TO GENERAL SURGERY 5. Mixed hyperlipidemia - ICD9: 272.2, ICD10: E78.2 - Counseled on healthy diet and regular exercise 6. Screening for diabetes mellitus - ICD9: V77.1, ICD10: Z13.1 - COMPREHENSIVE METABOLIC PANEL - HEMOGLOBIN A1C 7. Screening for thyroid disorder - ICD9: V77.0, ICD10: Z13.29 - THYROID STIMULATING HORMONE 8. Encounter for vitamin deficiency screening - ICD9: V77.99, ICD10: Z13.21 - VITAMIN D 25 HYDROXY - VITAMIN B12 9. Body mass index (BMI) 40.0-44.9, adult (HCC) - ICD9: V85.41, ICD10: Z68.41 - COMPLETE BLOOD COUNT 10. Essential (primary) hypertension - ICD9: 401.9, ICD10: I10 - Recommend regular aerobic exercise - THYROID STIMULATING HORMONE 11. Vitamin D deficiency, unspecified - ICD9: 268.9, ICD10: E55.9 - VITAMIN D 25 HYDROXY Charla Wayne Attending Note I have personally performed a face to face assessment of the patient and have reviewed the TOMAS note and I agree. Other additions or changes: As edited Signature: Fang Mayen Date: 08/26/2024 Time: 2:34 PM CNOV Observed: 08/26/2024 10:40 AM Status: COMPLETED Source: [facility] Office Visit ([facility]AMPWS) JOAQUIN HENDRICKS ([id number]) 1950 M Date Time Provider Department 08/26/24 10:40 AM [facility] During your visit today, we recorded the following information about you: Pulse Respiration Blood pressure Weight 63/minute 16/minute 126/78 136 kg Fang Mayen APRN.COLLAR STAY FUSER TENDER 08/26/2024 2:35 PM Signed Chief Complaint Patient presents with: Establish Care HPI Joaquin Hendricks is a 73 year old male who presents here today for Above Complaints.. Dr. Ramos and Dr. Dior manages asthma. States this is well-managed GERD - managed well with prevacid Glaucoma - Sees eye doctor regularly at [facility] with Dr. Salazar. Gout- well under control, does not have flare-ups often, less than once a year. States he watches what he eats and this helps. Takes allopurinol 300mg daily History of kidney stones - sees Dr. Paris, last kidney stone was last fall. Hypertension - well managed. Does not monitor BP readings at home. Denies headaches, reports swelling in his legs occasionally. Sleep apnea - wears CPAP and is benefiting from this Chronic sinusitis - was getting sinus infections possibly d/t CPAP. Is cleaning regularly and hasn't had a sinus infection in a while. Sees Dr. Carlson regularly for hearing and hearing-aid tests Hyperlipidemia - diet is "not great". States he consumes a lot of calories. Exercise - not currently exercising Umbilical hernia - states has had for one year. Was seen by general surgeon Dr. Mac asn was told nothing can be fixed surgically until he is able to loose 20 or more lb. Hx of back surgery 20 years ago for degenerative disc disease. Lipoma - reports he has 3 lipomas in his left thigh was identified by MRI. States it hurts to stand, walk, and keeps him up at night. Was told by previous PCP that it couldn't be removed surgically because it is in the muscle. Past medical history, appointments, medications, allergies reviewed. Previous Medical History PAST MEDICAL HISTORY Diagnosis Date Asthma 11/21/201411/2014: DARIEL +, 20% drop in FEV1 at 25 mg/mL. CAD (coronary artery disease) Chronic sinusitis 11/21/201411/2014 CT sinus. DDD (degenerative disc disease), lumbar GERD (gastroesophageal reflux disease) Glaucoma (increased eye pressure) Bilateral Dr. Hdz Gout Hard of hearing hearing aids, Dr. Carlson Hemorrhage of gastrointestinal tract, unspecified Hypertension Mixed hyperlipidemia Hyperlipidemia Nephrolithiasis seen Dr Lanier Obstructive sleep apnea using CPAP Prediabetes Umbilical hernia Previous Surgical History PAST SURGICAL HISTORY Procedure Laterality Date COLONOSCOPY [...] OF Deviated septum REMV CATARACT EXTRACAP,INSERT LENS Family History FAMILY HISTORY Problem Relation Age of Onset Cancer Father bone marrow Patient Allergies ALLERGIES Allergen Reactions Lisinopril Cough Simvastatin Other: See Comments elevated liver enzyme,elevated muscle enzyme Current Medications Current Outpatient Medications on File Prior to Visit Medication Sig fluticasone (FLONASE ALLERGY RELIEF) 50 mcg/actuation nasal spray Use 1 [place] in each nostril once daily. CPAP/BIPAP/OTHER CPAP 16 DME [employer] azelastine HCl (ASTEPRO ALLERGY NASAL) Use 1 [place] in the nose as needed. guaiFENesin (MUCINEX) 600 mg 12 hr tablet Take 1,200 mg by mouth two times a day as needed for cold/allergy symptoms. Per pt albuterol HFA (PROAIR HFA) 90 mcg/actuation inhaler Inhale 2 Puffs as instructed every 6 hours as needed for wheezing/shortness of breath. calcium carbonate (CALCIUM 500 ORAL) Take by mouth. vit A/vit C/vit E/zinc/copper (PRESERVISION AREDS ORAL) Take by mouth. B.coagul,subtilis/inulin/vit C (CULTURELLE PROBIOTIC-PREBIOTIC ORAL) Take by mouth. mv-mn/C/glutamin/lysin/xduc031 ([place], ASCORBATE SODIUM, ORAL) Take by mouth. tezepelumab-ekko (TEZSPIRE) 210 mg/1.91 mL (110 mg/mL) syringe Inject 1.91 mL subcutaneously every 4 weeks. fluticasone-salmeterol HFA (ADVAIR HFA) 230-21 mcg/actuation inhaler Inhale 2 Puffs as instructed twice daily. lansoprazole (PREVACID) 30 mg capsule Take 30 mg by mouth once daily. montelukast (SINGULAIR) 10 mg tablet Take 10 mg by mouth daily at bedtime. tamsulosin (FLOMAX) 0.4 mg Take 0.8 mg by mouth once daily. tiotropium bromide (SPIRIVA RESPIMAT) 1.25 mcg/actuation mist Inhale 2 Puffs as instructed once daily. ipratropium bromide (ATROVENT) 42 mcg (0.06 %) nasal spray Use 2 Sprays in the nose as needed. rosuvastatin (CRESTOR) 5 mg tablet Take 0.5 tablets by mouth every 48 hours. irbesartan (AVAPRO) 150 mg tablet Take 1 tablet by mouth once daily. allopurinol (ZYLOPRIM) 300 mg tablet Take 1 tablet by mouth once daily. For gout. loratadine (CLARITIN) 10 mg tablet Take 1 tablet by mouth once daily. aspirin, enteric coated (ECOTRIN LOW STRENGTH) 81 mg EC tablet Take 1 tablet by mouth once daily. (Patient taking differently: Take 81 mg by mouth once daily. Takes every other day noted on 08/26/24 Gabby Copeland MA) THERAPEUTIC MULTIVITAMIN TAB Take one(1) tablet daily. No current facility-administered medications on file prior to visit. Social History Social History Tobacco Use Smoking status: Never Smokeless tobacco: Never Tobacco comments: Parents smoked in childhood home. Vaping Use Vaping status: Never Used Substance Use Topics Alcohol use: Yes Drug use: No Review of Symptoms REVIEW OF SYSTEMS See HPI, otherwise negative EXAM: BP 126/78 (BP Site: Left Arm, BP Position: Sitting, BP Cuff Size: Large Adult) Pulse 63 Resp 16 Wt 136 kg (299 lb 12.8 oz) SpO2 99% BMI 43.95 kg/m? General Appearance: Well appearing, alert, in no acute distress, well-hydrated, well nourished.. Ears: External ears normal, canals clear. Neck: Supple, no adenopathy; thyroid symmetric, normal size, no bruits. Lungs: Lungs clear to auscultation. No wheezing, rhonchi, rales.. Heart: RRR without murmur, gallop, or rubs. No ectopy. Abdomen: Normal abdominal exam, Abdomen soft, non-tender. Bowel sounds normal. No masses, organomegaly, Positive findings: umbilical hernia, obese. Extremities: Edema: Bilateral pitting edema +1. Peripheral Pulses: Normal. Psychiatric: pleasant, cooperative Health Maintenance List Depression Screening Never done Anxiety Screening Never done BP Controlled (<130/80) Never done Diabetes Screening due on 10/16/2021 Advance Directive Discussion Never done Covid-19 Vaccine() due on 10/28/2024 Annual PCP Team Chronic Disease Visit due on 08/26/2025 Colorectal Cancer Screening due on 06/24/2027 Lipid Screening due on 08/10/2029 DTaP,Tdap,Td Vaccine(3 - Td or Tdap) due on 08/18/2033 Spirometry Completed Influenza Vaccine Completed RSV Vaccine Completed Hepatitis C Screening Completed Shingrix Vaccine Completed Pneumococcal Vaccine: 50+ Completed Data reviewed Previous notes, office notes ASSESSMENT/PLAN: 1. Encounter to establish care - ICD9: V65.8, ICD10: Z76.89 (primary diagnosis) - COMPLETE BLOOD COUNT - COMPREHENSIVE METABOLIC PANEL - THYROID STIMULATING HORMONE - HEMOGLOBIN A1C - VITAMIN D 25 HYDROXY - VITAMIN B12 2. Screening for depression - ICD9: V79.0, ICD10: Z13.31 - DEPRESSION SCREENING 3. Encounter for screening examination for other mental health and behavioral disorders - ICD9: V79.8, ICD10: Z13.39 - ANXIETY SCREENING 4. Lipoma of left thigh - ICD9: 214.8, ICD10: D17.24 - CONSULT TO GENERAL SURGERY 5. Mixed hyperlipidemia - ICD9: 272.2, ICD10: E78.2 - Counseled on healthy diet and regular exercise 6. Screening for diabetes mellitus - ICD9: V77.1, ICD10: Z13.1 - COMPREHENSIVE METABOLIC PANEL - HEMOGLOBIN A1C 7. Screening for thyroid disorder - ICD9: V77.0, ICD10: Z13.29 - THYROID STIMULATING HORMONE 8. Encounter for vitamin deficiency screening - ICD9: V77.99, ICD10: Z13.21 - VITAMIN D 25 HYDROXY - VITAMIN B12 9. Body mass index (BMI) 40.0-44.9, adult (HCC) - ICD9: V85.41, ICD10: Z68.41 - COMPLETE BLOOD COUNT 10. Essential (primary) hypertension - ICD9: 401.9, ICD10: I10 - Recommend regular aerobic exercise - THYROID STIMULATING HORMONE 11. Vitamin D deficiency, unspecified - ICD9: 268.9, ICD10: E55.9 - VITAMIN D 25 HYDROXY Charla Wayne Attending Note I have personally performed a face to face assessment of the patient and have reviewed the TOMAS note and I agree. Other additions or changes: As edited Signature: Fang Mayen Date: 08/26/2024 Time: 2:34 PM Allergies As of Date: 08/26/2024 Noted Allergy Reaction LISINOPRIL 03/08/2013 3 - Cough SIMVASTATIN 05/25/2012 14 - Other: See Comments Comments: elevated liver enzyme,elevated muscle enzyme Date Reviewed: 08/26/2024 Reviewed by: Fang Mayen APRN.COLLAR STAY FUSER TENDER - Fully Assessed Reason for Visit: Establish Care [42] Primary Visit Diagnosis:Encounter to establish care [Z76.89] Other Visit Diagnoses:Screening for depression [Z13.31] Encounter for screening examination for other mental health and behavioral disorders [Z13.39] Lipoma of left thigh [D17.24] Mixed hyperlipidemia [E78.2] Screening for diabetes mellitus [Z13.1] Screening for thyroid disorder [Z13.29] Encounter for vitamin deficiency screening [Z13.21] Body mass index (BMI) 40.0-44.9, adult (HCC) [Z68.41] Essential (primary) hypertension [I10] Vitamin D deficiency, unspecified [E55.9] Order(s):DEPRESSION SCREENING [] Order #: [id number]: 1 ANXIETY SCREENING [] Order #: [id number]: 1 aspirin, enteric coated (ECOTRIN LOW STRENGTH) 81 mg EC tabletTake 1 tablet by mouth once daily. Takes every other day noted on 08/26/24 Kathleen Dolan: Rfl: CONSULT TO GENERAL SURGERY [9010] Order #: [id number]: 1 FUTURE COMPLETE BLOOD COUNT [SQCBC] Order #: [id number] FUTURE COMPREHENSIVE METABOLIC PANEL [SQCMP] Order #: [id number] FUTURE THYROID STIMULATING HORMONE [SQTSH] Order #: [id number] FUTURE HEMOGLOBIN A1C [IKCNC9E] Order #: [id number] FUTURE VITAMIN D 25 HYDROXY [SQVITD] Order #: [id number] FUTURE VITAMIN B12 [SQB12] Order #: [id number] FUTURE Prescriptions as of 08/26/2024 - aspirin, enteric coated (ECOTRIN LOW STRENGTH) 81 mg EC tablet Take 1 tablet by mouth once daily. Takes every other day noted on 08/26/24 Gabby Copeland MA - fluticasone (FLONASE ALLERGY RELIEF) 50 mcg/actuation nasal spray Use 1 [place] in each nostril once daily. - CPAP/BIPAP/OTHER CPAP 16 DME [facility] - azelastine HCl (ASTEPRO ALLERGY NASAL) Use 1 [place] in the nose as needed. - guaiFENesin (MUCINEX) 600 mg 12 hr tablet Take 1,200 mg by mouth two times a day as needed for cold/allergy symptoms. Per pt - albuterol HFA (PROAIR HFA) 90 mcg/actuation inhaler Inhale 2 Puffs as instructed every 6 hours as needed for wheezing/shortness of breath. - calcium carbonate (CALCIUM 500 ORAL) Take by mouth. - vit A/vit C/vit E/zinc/copper (PRESERVISION AREDS ORAL) Take by mouth. - B.coagul,subtilis/inulin/vit C (CULTURELLE PROBIOTIC-PREBIOTIC ORAL) Take by mouth. - mv-mn/C/glutamin/lysin/lsdx790 (AIRBORNE, ASCORBATE SODIUM, ORAL) Take by mouth. - tezepelumab-ekko (TEZSPIRE) 210 mg/1.91 mL (110 mg/mL) syringe Inject 1.91 mL subcutaneously every 4 weeks. - fluticasone-salmeterol HFA (ADVAIR HFA) 230-21 mcg/actuation inhaler Inhale 2 Puffs as instructed twice daily. - lansoprazole (PREVACID) 30 mg capsule Take 30 mg by mouth once daily. - montelukast (SINGULAIR) 10 mg tablet Take 10 mg by mouth daily at bedtime. - tamsulosin (FLOMAX) 0.4 mg Take 0.8 mg by mouth once daily. - tiotropium bromide (SPIRIVA RESPIMAT) 1.25 mcg/actuation mist Inhale 2 Puffs as instructed once daily. - ipratropium bromide (ATROVENT) 42 mcg (0.06 %) nasal spray Use 2 Sprays in the nose as needed. - rosuvastatin (CRESTOR) 5 mg tablet Take 0.5 tablets by mouth every 48 hours. - irbesartan (AVAPRO) 150 mg tablet Take 1 tablet by mouth once daily. - allopurinol (ZYLOPRIM) 300 mg tablet Take 1 tablet by mouth once daily. For gout. - loratadine (CLARITIN) 10 mg tablet Take 1 tablet by mouth once daily. - THERAPEUTIC MULTIVITAMIN TAB Take one(1) tablet daily. Problem List As Of Date 08/26/2024 Noted Resolved Anal fissure [K60.2] 08/03/2006 10/30/2011 Blood in stool [K92.1] 09/11/2006 10/30/2011 Hyperlipemia [E78.5] 05/27/2010 04/13/2017 Hypertension [I10] 05/27/2010 Pes planus [M21.40] 10/11/2010 Hyperglycemia [R73.9] 06/16/2011 09/12/2016 Sleep apnea [G47.30] 10/30/2011 09/12/2016 Insomnia [G47.00] 05/31/2012 Obesity [E66.9] 11/27/2012 06/22/2017 Gout attack [M10.9] 02/13/2013 09/12/2016 Gout [M10.9] 02/13/2013 Recurrent kidney stones [N20.0] 02/13/2013 DDD (degenerative disc disease), cervical [M50.*07/08/2013 Asthma [J45.909] 11/21/2014 Chronic sinusitis [J32.9] 11/21/2014 Chronic ethmoidal sinusitis [J32.2] 02/18/2015 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 GERD (gastroesophageal reflux disease) [K21.9] Nephrolithiasis [N20.0] 06/22/2017 Mixed hyperlipidemia [E78.2] Obstructive sleep apnea [G47.33] Morbid obesity (HCC) [E66.01] Umbilical hernia [K42.9] Prediabetes [R73.03] 09/12/2016 Colon cancer screening [Z12.11] 05/15/2017 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] 05/25/2018 Epithelial inclusion cyst [L72.0] 06/10/2018 Prescriptions ordered this encounter Disp Refills Start End ASPIRIN 81 MG TABLET,DELAYED RELEASE 08/26/2024 Class: Med Update Route: ORAL Sig: Take 1 tablet by mouth once daily. Takes every other day noted on 08/26/24 Gabby SarahTrenton, MA Medications Discontinued During This Encounter Prescriptions - aspirin, enteric coated (ECOTRIN LOW STRENGTH) 81 mg EC tablet (Discontinued) Take 81 mg by mouth once daily. Takes every other day noted on 08/26/24 [facility] SarahT[place], [place] Encounter Status:Closed by FANG MAYEN on 08/26/24 [facility]CO Observed: 08/26/2024 12:00 AM Status: COMPLETED Source: [facility] Letter Text PROGRESS Observed: 08/17/2024 8:00 AM Status: COMPLETED Source: [facility] HNO ID: [id number] Author: ELENA DIOR MD Service: ? 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 IgA and IgM remain within normal limits. Recommend repeat IgG, IgA and IgM in 6 months with a follow-up visit shortly afterwards. (From 03/31/23: Patient received Prevnar 20 on May 06, 2023 and had a fair immune response to this vaccine. 1 month post vaccination, he had antibody titers greater than 1 mcg/mL to 10 pneumococcal serotypes compared to 5 pneumococcal serotypes prevaccination. Four-fold increase in titers to 4 of the serotypes and >2x increase to 1 serotype.) -Severe persistent asthma with significant clinical improvement since beginning treatment with Tezspire Co-managed with pulmonary medicine Continue Tezspire, Advair 230-21, Spiriva 1.25 and Singulair 10 mg Continue Albuterol 2 puffs every 4 hours as needed. Spirometry and FeNO completed on July 29, 2024 were normal. -Bronchiectasis: Continue management as recommended by pulmonary -Nonallergic rhinitis: Continue regular use of fluticasone nasal spray 1 to 2 sprays to each nostril once daily. Continue as needed use of azelastine nasal spray and ipratropium nasal spray 0.06%. Continue OTC antihistamine such as loratadine as needed -Discussed medication dosage, usage, side effects, and goals of treatment in detail. -Follow-up in 6 months with repeat IgG, IgA and IgM.- patient will return sooner should new symptoms or problems arise. Elena Dior MD Allergy and Clinical Immunology VIRTUAL VISIT PROGRESS NOTE This is a virtual visit. It required patient-provider interaction for the medical decision making as documented below. I have communicated my name and active licensure. The patient's identity and physical location were verified at the time of this visit. Either the patient or their legal compliance representative dealer has been informed of the risks and benefits of -- and alternatives to -- treatment through a remote evaluation and consents to proceed with the evaluation remotely. Joaquin Hendricks (Jim) is a 73 year old male with a history of nonallergic rhinitis, severe persistent asthma, hypogammaglobulinemia and bronchiectasis who presents for a follow-up visit. His last visit was 03/16/2024. In April, he experienced a 1 week history of productive cough. 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 Patient was treated with doxycycline with significant improvement in his symptoms. Dr. Ramos recommended a repeat sputum culture, however, patient has been unable to provide this as cough has resolved. No other infections requiring treatment with antibiotics since his last visit. Otherwise, asthma symptoms have been well controlled since last visit. Denies cough, wheezing, chest tightness and shortness of breath. Denies nocturnal awakenings due to respiratory symptoms. Denies use of CELENA Denies treatment with systemic corticosteroids, ER visits or hospitalizations for respiratory symptoms since his last visit He has noted significant improvement in his symptoms since beginning treatment with Tezspire. He is tolerating this medication without adverse reaction. He continues to follow-up with Dr. Ramos in pulmonary medicine. Per patient, daily use of azithromycin was discontinued at his last visit with Dr. Ramos on July 30. Overall nasal symptoms have been well-controlled (From 08/06/23: He has been taking azithromycin 250 mg once daily as prescribed by pulmonary medicine with significant improvement in his symptoms. He feels that he is back to his baseline before experiencing recurrent illnesses over the past 1.5 to 2 years. Denies treatment with additional antibiotics since his last visit. Denies treatment with corticosteroids since his last visit. He continues Advair 230, Singulair, Spiriva 1.25, Tezspire, Dymista, Atrovent nasal spray, loratadine and Mucinex with overall good control of his asthma symptoms and nasal symptoms. (From initial visit on 03/31/23 This is a consultation requested by Shabana Ramos MD for an allergy and immunology evaluation. My final recommendations will be communicated back to the requesting healthcare provider(s) by way of shared medical record or via [place] mail. Joaquin Hendricks (Jim) is a 72 year old male with [...] and postnasal drip. Skin test completed by [facility] in 2020, he had 1+ results [...] or loss of consciousness. REVIEW OF SYSTEMS: Negative for fevers, chills, night sweats and unintentional weight loss. All other review of systems negative except for those listed above. PAST MEDICAL HISTORY Diagnosis Date Asthma 11/21/201411/2014: DARIEL +, 20% drop in FEV1 at 25 mg/mL. CAD (coronary artery disease) Chronic sinusitis 11/21/201411/2014 CT sinus. DDD (degenerative disc disease), lumbar GERD (gastroesophageal reflux disease) Glaucoma (increased eye pressure) Bilateral Dr. Hdz Gout Hard of hearing hearing aids, Dr. Carlson Hemorrhage of gastrointestinal tract, unspecified Hypertension Mixed hyperlipidemia Hyperlipidemia Nephrolithiasis seen Dr Lanier Obstructive sleep apnea using CPAP Prediabetes Umbilical hernia MEDICATIONS: CPAP/BIPAP/OTHER CPAP 16 DME [facility] azelastine HCl (ASTEPRO ALLERGY NASAL) Use in the nose. guaiFENesin (MUCINEX) 600 mg 12 hr tablet Take 1,200 mg by mouth two times a day as needed for cold/allergy symptoms. Per pt albuterol HFA (PROAIR HFA) 90 mcg/actuation inhaler Inhale 2 Puffs as instructed every 6 hours as needed for wheezing/shortness of breath. calcium carbonate (CALCIUM 500 ORAL) Take by mouth. vit A/vit C/vit E/zinc/copper (PRESERVISION AREDS ORAL) Take by mouth. B.coagul,subtilis/inulin/vit C (CULTURELLE PROBIOTIC-PREBIOTIC ORAL) Take by mouth. mv-mn/C/glutamin/lysin/xdzh358 (A[place]ORNE, ASCORBATE SODIUM, ORAL) Take by mouth. tezepelumab-ekko (TEZSPIRE) 210 mg/1.91 mL (110 mg/mL) syringe Inject 1.91 mL subcutaneously every 4 weeks. fluticasone-salmeterol HFA (ADVAIR HFA) 230-21 mcg/actuation inhaler Inhale 2 Puffs as instructed twice daily. lansoprazole (PREVACID) 30 mg capsule Take 30 mg by mouth once daily. montelukast (SINGULAIR) 10 mg tablet Take 10 mg by mouth daily at bedtime. tamsulosin (FLOMAX) 0.4 mg Take 0.8 mg by mouth once daily. tiotropium bromide (SPIRIVA RESPIMAT) 1.25 mcg/actuation mist Inhale 2 Puffs as instructed once daily. ipratropium bromide (ATROVENT) 42 mcg (0.06 %) nasal spray Use 2 Sprays in the nose as needed. rosuvastatin (CRESTOR) 5 mg tablet Take 0.5 tablets by mouth every 48 hours. irbesartan (AVAPRO) 150 mg tablet Take 1 tablet by mouth once daily. allopurinol (ZYLOPRIM) 300 mg tablet Take 1 tablet by mouth once daily. For gout. loratadine (CLARITIN) 10 mg tablet Take 1 tablet by mouth once daily. aspirin, enteric coated (ECOTRIN LOW STRENGTH) 81 mg EC tablet Take 1 tablet by mouth once daily. (Patient taking differently: Take 81 mg by mouth every other day in the morning.) THERAPEUTIC MULTIVITAMIN TAB Take one(1) tablet daily. ALLERGIES: Allergies As of Date: 08/17/2024 Allergen Noted Reaction LISINOPRIL 03/08/2013 Cough SIMVASTATIN 05/25/2012 Other: See Comments Fully Assessed 08/05/2024 PAST SURGICAL HISTORY Procedure Laterality Date COLONOSCOPY [...] no. 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 ENVIRONMENTAL HISTORY: Lives in a house Age of home: 6 years Heating: gas Woodburning fireplace in the home: no Air conditioning: Central air Basement: Damp basement, Carpeted, Furnished [place]: [id number] carpeting, Hardwood floor Dust mite controls: Dust mite controls are already in place. Pets in the home: There are no pets in the home Outdoor animals: There are no outdoor animals Tobacco smoke: No exposure in the home. VIDEO EXAM: (if completed, performed via video enabled technology) GENERAL: alert and appropriate, in no distress, well-hydrated, well nourished, and happy, smiling, interactive SKIN: no rash noted HEAD: normocephalic, no abnormality or lesion noted EYES: no injection and visual acuity is grossly normal EARS: external ears normal NOSE: external nose normal without rhinorrhea NECK: full ROM, no cervical LNs noted RESPIRATORY: breathing non-labored NEUROLOGIC: no obvious deficit PROGRESS Observed: 08/17/2024 7:59 AM Status: COMPLETED Source: [facility] HNO ID: [id number] Author: CONSTANZA UPTON, RN Service: ? Author Type: Registered Nurse Type: Progress Notes Filed: 08/17/2024 21:30 Note Text: Patient having virtual visit for follow up. Reports "coughing spell" back in April needing antibiotic but no steroids needed. Asthma well controlled. Tezspire well controlled. Last needing Albuterol in April. Only using Claritin as needed, same with nasal sprays but does use Flonase daily. HEP FUNC 1999 PNL SERPL Collected: 11/2024 10:17 AM Status: F Source: [facility] Order Comment: Specimen Type : BLOOD SPECIMEN Ordering Facility: [facility] Address: [address] [place] [address] TYPE CODE TESTS RESULT OUT OF RANGE REFERENCE UNITS LAB 1751-7(LOINC) Albumin SerPl-mCnc 4.2 3.9-4.9 g/dL LAB 1975-2(LOINC) Bilirub SerPl-mCnc 0.8 0.2-1.3 mg/dL LAB 20899-6(LOINC) Bilirub Conj SerPl-mCnc 0.3 High <0.3 mg/dL LAB 6768-6(LOINC) ALP SerPl-cCnc 93 38-113 U/L LAB 1920-8(LOINC) AST SerPl-cCnc 19 14-40 U/L LAB 1742-6(LOINC) ALT SerPl-cCnc 25 10-54 U/L LAB 2885-2(LOINC) Prot SerPl-mCnc 6.5 6.3-8.0 g/dL Performed By: #### 01024-6, 95578-5 #### [facility] CLIA [id number] [address] [place] [id number] [place] LIPID 1995 PNL SERPL Collected: 02/05/2 025 10:17 AM Status: F Source: [facility] Order Comment: Specimen Type : BLOOD SPECIMEN Ordering Facility: [facility] Address: [facility] [address], [place] [address] TYPE CODE TESTS RESULT OUT OF RANGE REFERENCE UNITS LAB 2093-3(LOINC) Cholest SerPl-mCnc 123 <200 mg/dL Result Comment: <200 mg/dL, Desirable 200-239 mg/dL, Borderline high >239 mg/dL, High LAB 2571-8(LOINC) Trigl SerPl-mCnc 83 <150 mg/dL Result Comment: <150 mg/dL, Normal 150-199 mg/dL, Borderline high 200-499 mg/dL, High >499 mg/dL, Very high LAB 2085-9(LOINC) HDLc SerPl-mCnc 46 >39 mg/dL Result Comment: 40-59 mg/dL, Acceptable >59 mg/dL, High: Negative risk factor for coronary heart disease <40 mg/dL, Low: Positive risk factor for coronary heart disease LAB 70615-0(LOINC) NonHDLc SerPl-mCnc 77 <130 mg/dL Result Comment: <130 mg/dL, Optimal 130-159 mg/dL, Near optimal/above optimal 160-189 mg/dL, Borderline high 190-219 mg/dL, High >219 mg/dL, Very high Secondary prevention optimal non HDL Cholesterol levels are recommended to be <100 mg/dL LAB FT FASTING TIME 12 hrs LAB 62029-9(LOINC) VLDLc SerPl Calc-mCnc 17 <30 mg/dL LAB 9830-1(LOINC) Cholest/HDLc SerPl 2.67 <5.10 LAB 2089-1(LOINC) LDLc SerPl-mCnc 60 <100 mg/dL Result Comment: <100 mg/dL, Optimal 100-129 mg/dL, Near optimal/above optimal 130-159 mg/dL, Borderline high 160-189 mg/dL, High >189 mg/dL, Very high Secondary prevention optimal LDL Cholesterol levels are recommended to be < 70 mg/dL LAB 06837-9(LOINC) LDLc/HDLc SerPl 1.30 <2.54 Result Comment: Reference: 1. National Cholesterol Education Program ATP III Guideline At-A-Glance Quick Desk Reference: National Heart, Lung, and Blood [place]. National Institutes of Health. 2001: NIH Publication No. 01-3305. 2. An International Atherosclerosis Society position paper: global recommendations for the management of dyslipidemia: executive summary, Atherosclerosis. 2014: 232(2):410-413. Performed By: #### 32754-9, 64617-9 #### [facility] CLIA [id number] [address] [place] [address] [place] IGA SERPL-MCNC Collected: 08/10/2024 9:59 AM Status: F Source: [facility] Order Comment: Specimen Type : BLOOD SPECIMEN Ordering Facility: [facility] Address: [address] [place] [address] TYPE CODE TESTS RESULT OUT OF RANGE REFERENCE UNITS LAB 2458-8(LOINC) IgA SerPl-mCnc 104 70-400 mg/dL Performed By: #### 2465-3, 2 458-8, 2472-9 #### [facility] CLIA [id number] [address] [place] [address] [place] IGG SERPL-MCNC Collected: 08/10/2024 9:59 AM Status: F Source: [facility] Order Comment: Specimen Type : BLOOD SPECIMEN Ordering Facility: [facility] Address: [address] [place] [address] TYPE CODE TESTS RESULT OUT OF RANGE REFERENCE UNITS LAB 2465-3(LOINC) IgG SerPl-mCnc 558 Low 700-1600 mg/dL Performed By: #### 2465-3, 2 458-8, 2472-9 #### [facility] CLIA [id number] [address] [place] [address] [place] IGM SERPL-MCNC Collected: 08/10/2024 9:59 AM Status: F Source: [facility] Order Comment: Specimen Type : BLOOD SPECIMEN Ordering Facility: [facility] Address: [address] [place] [address] TYPE CODE TESTS RESULT OUT OF RANGE REFERENCE UNITS LAB 2472-9(LOINC) IgM SerPl-mCnc 54 40-230 mg/dL Performed By: #### 2465-3, 2 458-8, 2472-9 #### [facility] CLIA [id number] [address] [place] [address] [place] CNOV Observed: 08/05/2024 3:00 PM Status: COMPLETED Source: [facility] Office Visit (SLEWST) JOAQUIN HENDRICKS ([id number]) 1950 M Date Time Provider Department 08/05/24 3:00 PM TAYLOR PIERCE During your visit today, we recorded the following information about you: Pulse Blood pressure Weight 90/minute 134/80 135.8 kg Taylor Pierce APRN.COLLAR STAY FUSER TENDER 08/05/2024 3:55 PM Signed [facility] New Patient Evaluation PATIENT NAME: Joaquin Hendricks DATE OF SERVICE: August 04, 2024 CONSULTING PROVIDER: No referring provider defined for this encounter. REASON FOR VISIT: CARMELLA HPI: Joaquin Hendricks is a 73 year old male. Sleep-related history: CARMELLA, needs to establish with a new sleep provider. Used to be followed at [facility] for asthma and CARMELLA but now sees Pulm Dr Ramos here at . CAROLINA Dupont On CPAP for years, no issues with his machine Has chronic post nasal drainage, not sure if CPAP makes it worse, has multiple meds for this Uses SoClean since he used to get frequent sinus infections before it SLEEP-WAKE SCHEDULE Bedtime: 1130 PM. He does not have a hard time falling asleep. Wake time: 7 AM, with an alarm. Can sleep until he gets 8 hrs After falling asleep: he wakes up 2 time(s) per night, because of physical discomfort. On weekends, he maintains the same sleep schedule. Average total sleep time (in a 24 hour period): 8 hours. SLEEP-RELATED DETAILS Preferred sleep position: side and back Breathing disturbances and other behaviors during sleep: snoring. Bruxism: Yes has bite guard from dentist GERD or aspiration: No Waking up with heart pounding or racing: No Anxiety or rumination: some rumination about work He does not report having an urge to move the legs in the evening (when resting) that is accompanied or caused by uncomfortable and/or unpleasant sensations in the legs. He has not been told that he has leg kicking during sleep. He denies any history of parasomnias. Daytime sleepiness is not a problem. He does not report sleep paralysis or sleep-related hallucinations or cataplexy WAKE-RELATED DETAILS He works but is not a shift worker. 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 He denies falling asleep or dozing off when driving. He does not take naps intentionally but might nap in his chair He does not drink caffeinated beverages. There has not been a recent change in weight. Patient Questionnaires Sleep Scores 07/29/2024 Sleep Questions Reason for visit: Sleep apnea Difficulty falling or staying asleep or poor sleep quality On average, hours of sleep in 24 hours: 8 Average hours of CPAP per night: 8 Percent of nights CPAP used at least 4 hours: 100 Accidents or near accidents due to drowsy drivin Multiple values from one day are sorted in reverse-chronological order 07/29/2024 [place] Sleepiness Scale Score 10 (No clinically significant daytime sleepiness) 07/29/2024 PROMIS CAT Sleep Disturbance PROMIS Sleep Disturbance T-Score 54 (within normal limits) PROMIS Sleep Disturbance Percentile 34 07/29/2024 PHQ-9 Score 4 07/22/2024 PROMIS Global Health - (T-Scores - the mean of general population = 50. Five points is a clinically meaningful difference.) Physical T-Score 47.7 Mental T-Score 48.3 PAST TREATMENTS: CPAP 16 cmH2O Nasal pillows (better than nasal mask--fewer leaks, not drying eyes) Benefits: no daytime sleepiness PRIOR SLEEP STUDIES: A split night polysomnogram performed on 06/16/14 revealed an AHI of 90, supine index of -- REM index of --, PLM arousal index of 3.5, and the oxygen saturation was below 90% for 7.6 % of the study. During the PAP titration portion of the study, none of the PAP settings normalizes the AHI PAST MEDICAL HISTORY Diagnosis Date Asthma 11/21/201411/2014: DARIEL +, 20% drop in FEV1 at 25 mg/mL. CAD (coronary artery disease) Chronic sinusitis 11/21/201411/2014 CT sinus. DDD (degenerative disc disease), lumbar GERD (gastroesophageal reflux disease) Glaucoma (increased eye pressure) Bilateral Dr. Hdz Gout Hard of hearing hearing aids, Dr. Carlson Hemorrhage of gastrointestinal tract, unspecified Hypertension Mixed hyperlipidemia Hyperlipidemia Nephrolithiasis seen Dr Lanier Obstructive sleep apnea using CPAP Prediabetes Umbilical hernia PAST SURGICAL HISTORY Procedure Laterality Date COLONOSCOPY [...] L5 and L6 PAST SURGICAL HISTORY OF [address] BARDALES PAST SURGICAL HISTORY OF eye stents for glaucoma PAST SURGICAL HISTORY OF UPPP PAST SURGICAL HISTORY OF Deviated septum REMV CATARACT EXTRACAP,INSERT LENS ACTIVE PROBLEM LIST Hypertension Pes Planus Insomnia Gout Recurrent Kidney Stones Ddd (Degenerative Disc Disease), Cervical Asthma Chronic Sinusitis Chronic Ethmoidal Sinusitis Bph With Obstruction/Lower Urinary Tract Symptoms Gerd (Gastroesophageal Reflux Disease) Mixed Hyperlipidemia Obstructive Sleep Apnea Morbid Obesity (Hcc) Umbilical Hernia Prediabetes Colon Cancer Screening Nontoxic Single Thyroid Nodule Epithelial Inclusion Cyst Allergies As of Date: 08/05/2024 Allergen Noted Reaction LISINOPRIL 03/08/2013 Cough SIMVASTATIN 05/25/2012 Other: See Comments Fully Assessed 08/05/2024 CURRENT MEDICATIONS: azelastine HCl (ASTEPRO ALLERGY NASAL) Use in the nose. guaiFENesin (MUCINEX) 600 mg 12 hr tablet Take 1,200 mg by mouth two times a day as needed for cold/allergy symptoms. Per pt albuterol HFA (PROAIR HFA) 90 mcg/actuation inhaler Inhale 2 Puffs as instructed every 6 hours as needed for wheezing/shortness of breath. calcium carbonate (CALCIUM 500 ORAL) Take by mouth. vit A/vit C/vit E/zinc/copper (PRESERVISION AREDS ORAL) Take by mouth. B.coagul,subtilis/inulin/vit C (CULTURELLE PROBIOTIC-PREBIOTIC ORAL) Take by mouth. mv-mn/C/glutamin/lysin/hdgf170 (AIRBORNE, ASCORBATE SODIUM, ORAL) Take by mouth. tezepelumab-ekko (TEZSPIRE) 210 mg/1.91 mL (110 mg/mL) syringe Inject 1.91 mL subcutaneously every 4 weeks. fluticasone-salmeterol HFA (ADVAIR HFA) 230-21 mcg/actuation inhaler Inhale 2 Puffs as instructed twice daily. lansoprazole (PREVACID) 30 mg capsule Take 30 mg by mouth once daily. montelukast (SINGULAIR) 10 mg tablet Take 10 mg by mouth daily at bedtime. tamsulosin (FLOMAX) 0.4 mg Take 0.8 mg by mouth once daily. tiotropium bromide (SPIRIVA RESPIMAT) 1.25 mcg/actuation mist Inhale 2 Puffs as instructed once daily. ipratropium bromide (ATROVENT) 42 mcg (0.06 %) nasal spray Use 2 Sprays in the nose as needed. rosuvastatin (CRESTOR) 5 mg tablet Take 0.5 tablets by mouth every 48 hours. irbesartan (AVAPRO) 150 mg tablet Take 1 tablet by mouth once daily. allopurinol (ZYLOPRIM) 300 mg tablet Take 1 tablet by mouth once daily. For gout. loratadine (CLARITIN) 10 mg tablet Take 1 tablet by mouth once daily. aspirin, enteric coated (ECOTRIN LOW STRENGTH) 81 mg EC tablet Take 1 tablet by mouth once daily. (Patient taking differently: Take 81 mg by mouth every other day in the morning.) THERAPEUTIC MULTIVITAMIN TAB Take one(1) tablet daily. CPAP/BIPAP/OTHER CPAP 16 [facility] Review of Systems Constitutional: Negative for fatigue and recent unintentional weight change. HENT: Positive for congestion (chronic PND, stopped astelin for the winter, on fluticasone nasal spray, on singulair). Cardiovascular: Negative for palpitations. Gastrointestinal: Negative for heartburn. Genitourinary: Negative for nocturia. Neurological: Negative for headaches and memory loss. Also uses saline spray bid and oral non-sedating antihistamine SOCIAL HISTORY: Social History Tobacco Use Smoking status: Never Smokeless tobacco: Never Tobacco comments: Parents smoked in childhood home. Vaping Use Vaping status: Never Used Substance Use Topics Alcohol use: Yes Drug use: No FAMILY HISTORY: FAMILY HISTORY Problem Relation Age of Onset Cancer Father bone marrow There is no family history of sleep disorders. PHYSICAL EXAMINATION: Vital Signs: BP 134/80 (BP Site: Right Arm, BP Position: Sitting) Pulse 90 Wt 135.8 kg (299 lb 6.4 oz) SpO2 94% BMI 43.89 kg/m? PHYSICAL EXAM: General appearance: pleasant, NAD Mental status: alert and oriented, able to provide own history Constitutional: obese Skin: No visible rashes on exposed skin Neuro: No focal deficits observed, no tremors IMPRESSION/PLAN: G47.33 CARMELLA on CPAP (primary encounter diagnosis) Joaquin Hendricks is a 73 year old male with severe CARMELLA (AHI 90), CPAP use, insomnia when he travels, HTN, HLD, asthma, chronic sinusitis, GERD, BPH, gout, obesity, prediabetes, CAD with stent --Patient is compliant with PAP therapy and reports subjective benefits from treatment --We reviewed PAP compliance report; AHI is normalized - He knows SoClean isn't recommended - Continue CPAP at 16 cmH2O. [facility] - Remember to clean your mask and equipment regularly, as directed. - You should be eligible for new supplies approximately every 3-6 months, depending on your insurance coverage. Contact your Durable Medical Equipment (DME) company for new supplies as needed. - Follow up in 12 months with me or Dr Carvalho (his Luci has seen Dr Carvalho) Taylor Pierce APRN.[employer] ST[employer] FUSER TENDER Allergies As of Date: 08/05/2024 Noted Allergy Reaction LISINOPRIL 03/08/2013 3 - Cough SIMVASTATIN 05/25/2012 14 - Other: See Comments Comments: elevated liver enzyme,elevated muscle enzyme Date Reviewed: 08/05/2024 Reviewed by: Taylor Pierce APRN.[employer] ST[employer] FUSER TENDER - Fully Assessed Reason for Visit: New Patient [[id number]] Cmt: CARMELLA on Pap Primary Visit Diagnosis:CARMELLA on CPAP [G47.33] Order(s):PAP THERAPY ORDER [[id number]] Order #: [id number]: 1 CPAP/BIPAP/OTHERCPAP 16 [facility]p: 1 EachRfl: 0 Prescriptions as of 08/05/2024 - CPAP/BIPAP/OTHER CPAP 16 [facility] - azelastine HCl (ASTEPRO ALLERGY NASAL) Use in the nose. - guaiFENesin (MUCINEX) 600 mg 12 hr tablet Take 1,200 mg by mouth two times a day as needed for cold/allergy symptoms. Per pt - albuterol HFA (PROAIR HFA) 90 mcg/actuation inhaler Inhale 2 Puffs as instructed every 6 hours as needed for wheezing/shortness of breath. - calcium carbonate (CALCIUM 500 ORAL) Take by mouth. - vit A/vit C/vit E/zinc/copper (PRESERVISION AREDS ORAL) Take by mouth. - B.coagul,subtilis/inulin/vit C (CULTURELLE PROBIOTIC-PREBIOTIC ORAL) Take by mouth. - mv-mn/C/glutamin/lysin/lqxf331 (AIRBORNE, ASCORBATE SODIUM, ORAL) Take by mouth. - tezepelumab-ekko (TEZSPIRE) 210 mg/1.91 mL (110 mg/mL) syringe Inject 1.91 mL subcutaneously every 4 weeks. - fluticasone-salmeterol HFA (ADVAIR HFA) 230-21 mcg/actuation inhaler Inhale 2 Puffs as instructed twice daily. - lansoprazole (PREVACID) 30 mg capsule Take 30 mg by mouth once daily. - montelukast (SINGULAIR) 10 mg tablet Take 10 mg by mouth daily at bedtime. - tamsulosin (FLOMAX) 0.4 mg Take 0.8 mg by mouth once daily. - tiotropium bromide (SPIRIVA RESPIMAT) 1.25 mcg/actuation mist Inhale 2 Puffs as instructed once daily. - ipratropium bromide (ATROVENT) 42 mcg (0.06 %) nasal spray Use 2 Sprays in the nose as needed. - rosuvastatin (CRESTOR) 5 mg tablet Take 0.5 tablets by mouth every 48 hours. - irbesartan (AVAPRO) 150 mg tablet Take 1 tablet by mouth once daily. - allopurinol (ZYLOPRIM) 300 mg tablet Take 1 tablet by mouth once daily. For gout. - loratadine (CLARITIN) 10 mg tablet Take 1 tablet by mouth once daily. - aspirin, enteric coated (ECOTRIN LOW STRENGTH) 81 mg EC tablet Take 1 tablet by mouth once daily. - THERAPEUTIC MULTIVITAMIN TAB Take one(1) tablet daily. Problem List As Of Date 08/05/2024 Noted Resolved Anal fissure [K60.2] 08/03/2006 10/30/2011 Blood in stool [K92.1] 09/11/2006 10/30/2011 Hyperlipemia [E78.5] 05/27/2010 04/13/2017 Hypertension [I10] 05/27/2010 Pes planus [M21.40] 10/11/2010 Hyperglycemia [R73.9] 06/16/2011 09/12/2016 Sleep apnea [G47.30] 10/30/2011 09/12/2016 Insomnia [G47.00] 05/31/2012 Obesity [E66.9] 11/27/2012 06/22/2017 Gout attack [M10.9] 02/13/2013 09/12/2016 Gout [M10.9] 02/13/2013 Recurrent kidney stones [N20.0] 02/13/2013 DDD (degenerative disc disease), cervical [M50.*07/08/2013 Asthma [J45.909] 11/21/2014 Chronic sinusitis [J32.9] 11/21/2014 Chronic ethmoidal sinusitis [J32.2] 02/18/2015 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 GERD (gastroesophageal reflux disease) [K21.9] Nephrolithiasis [N20.0] 06/22/2017 Mixed hyperlipidemia [E78.2] Obstructive sleep apnea [G47.33] Morbid obesity (HCC) [E66.01] Umbilical hernia [K42.9] Prediabetes [R73.03] 09/12/2016 Colon cancer screening [Z12.11] 05/15/2017 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] 05/25/2018 Epithelial inclusion cyst [L72.0] 06/10/2018 Prescriptions ordered this encounter Disp Refills Start End CPAP/BIPAP/OTHER 1 Ea* 0 08/05/2024 12/21/2051 Class: In Office Sig: CPAP 16 [facility] Medications Discontinued During This Encounter Prescriptions - azithromycin (ZITHROMAX) 250 mg tablet (Discontinued) Reported on 08/05/2024 - CPAP (Discontinued) Initiate AutoPAP @ 10/20 cm of water with humidification. Mask (per patient preference) optional chin strap (if indicated) , filters, tubing, humidifier and lifetime supplies. Dx. CARMELLA 327.23 Encounter Status:Closed by TAYLOR PIERCE on 08/05/24 PROGRESS Observed: 08/05/2024 3:00 PM Status: COMPLETED Source: [facility] HNO ID: [id number] Author: TAYLOR PIERCE APRN.COLL[employer] STAY FUSER TENDER Service: ? Author Type: Nurse Practitioner Type: Progress Notes Filed: 08/05/2024 15:55 Note Text: [facility] New Patient Evaluation PATIENT NAME: Joaquin Hendricks DATE OF SERVICE: August 04, 2024 CONSULTING PROVIDER: No referring provider defined for this encounter. REASON FOR VISIT: CARMELLA HPI: Joaquin Hendricks is a 73 year old male. Sleep-related history: CARMELLA, needs to establish with a new sleep provider. Used to be followed at [facility] for asthma and CARMELLA but now sees Pulm Dr Ramos here at . D[facility] On CPAP for years, no issues with his machine Has chronic post nasal drainage, not sure if CPAP makes it worse, has multiple meds for this Uses SoClean since he used to get frequent sinus infections before it SLEEP-WAKE SCHEDULE Bedtime: 1130 PM. He does not have a hard time falling asleep. Wake time: 7 AM, with an alarm. Can sleep until he gets 8 hrs After falling asleep: he wakes up 2 time(s) per night, because of physical discomfort. On weekends, he maintains the same sleep schedule. Average total sleep time (in a 24 hour period): 8 hours. SLEEP-RELATED DETAILS Preferred sleep position: side and back Breathing disturbances and other behaviors during sleep: snoring. Bruxism: Yes has bite guard from dentist GERD or aspiration: No Waking up with heart pounding or racing: No Anxiety or rumination: some rumination about work He does not report having an urge to move the legs in the evening (when resting) that is accompanied or caused by uncomfortable and/or unpleasant sensations in the legs. He has not been told that he has leg kicking during sleep. He denies any history of parasomnias. Daytime sleepiness is not a problem. He does not report sleep paralysis or sleep-related hallucinations or cataplexy WAKE-RELATED DETAILS He works but is not a shift worker. 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 He denies falling asleep or dozing off when driving. He does not take naps intentionally but might nap in his chair He does not drink caffeinated beverages. There has not been a recent change in weight. Patient Questionnaires Sleep Scores 07/29/2024 Sleep Questions Reason for visit: Sleep apnea Difficulty falling or staying asleep or poor sleep quality On average, hours of sleep in 24 hours: 8 Average hours of CPAP per night: 8 Percent of nights CPAP used at least 4 hours: 100 Accidents or near accidents due to drowsy drivin Multiple values from one day are sorted in reverse-chronological order 07/29/2024 [place] Sleepiness Scale Score 10 (No clinically significant daytime sleepiness) 07/29/2024 PROMIS CAT Sleep Disturbance PROMIS Sleep Disturbance T-Score 54 (within normal limits) PROMIS Sleep Disturbance Percentile 34 07/29/2024 PHQ-9 Score 4 07/22/2024 PROMIS Global Health - (T-Scores - the mean of general population = 50. Five points is a clinically meaningful difference.) Physical T-Score 47.7 Mental T-Score 48.3 PAST TREATMENTS: CPAP 16 cmH2O Nasal pillows (better than nasal mask--fewer leaks, not drying eyes) Benefits: no daytime sleepiness PRIOR SLEEP STUDIES: A split night polysomnogram performed on 06/16/14 revealed an AHI of 90, supine index of -- REM index of --, PLM arousal index of 3.5, and the oxygen saturation was below 90% for 7.6 % of the study. During the PAP titration portion of the study, none of the PAP settings normalizes the AHI PAST MEDICAL HISTORY Diagnosis Date Asthma 11/21/201411/2014: DARIEL +, 20% drop in FEV1 at 25 mg/mL. CAD (coronary artery disease) Chronic sinusitis 11/21/201411/2014 CT sinus. DDD (degenerative disc disease), lumbar GERD (gastroesophageal reflux disease) Glaucoma (increased eye pressure) Bilateral Dr. Hdz Gout Hard of hearing hearing aids, Dr. Carlson Hemorrhage of gastrointestinal tract, unspecified Hypertension Mixed hyperlipidemia Hyperlipidemia Nephrolithiasis seen Dr Lanier Obstructive sleep apnea using CPAP Prediabetes Umbilical hernia PAST SURGICAL HISTORY Procedure Laterality Date COLONOSCOPY [...] OF Deviated septum REMV CATARACT EXTRACAP,INSERT LENS ACTIVE PROBLEM LIST Hypertension Pes Planus Insomnia Gout Recurrent Kidney Stones Ddd (Degenerative Disc Disease), Cervical Asthma Chronic Sinusitis Chronic Ethmoidal Sinusitis Bph With Obstruction/Lower Urinary Tract Symptoms Gerd (Gastroesophageal Reflux Disease) Mixed Hyperlipidemia Obstructive Sleep Apnea Morbid Obesity (Hcc) Umbilical Hernia Prediabetes Colon Cancer Screening Nontoxic Single Thyroid Nodule Epithelial Inclusion Cyst Allergies As of Date: 08/05/2024 Allergen Noted Reaction LISINOPRIL 03/08/2013 Cough SIMVASTATIN 05/25/2012 Other: See Comments Fully Assessed 08/05/2024 CURRENT MEDICATIONS: azelastine HCl (ASTEPRO ALLERGY NASAL) Use in the nose. guaiFENesin (MUCINEX) 600 mg 12 hr tablet Take 1,200 mg by mouth two times a day as needed for cold/allergy symptoms. Per pt albuterol HFA (PROAIR HFA) 90 mcg/actuation inhaler Inhale 2 Puffs as instructed every 6 hours as needed for wheezing/shortness of breath. calcium carbonate (CALCIUM 500 ORAL) Take by mouth. vit A/vit C/vit E/zinc/copper (PRESERVISION AREDS ORAL) Take by mouth. B.coagul,subtilis/inulin/vit C (CULTURELLE PROBIOTIC-PREBIOTIC ORAL) Take by mouth. mv-mn/C/glutamin/lysin/oyja317 (AIRBORNE, ASCORBATE SODIUM, ORAL) Take by mouth. tezepelumab-ekko (TEZSPIRE) 210 mg/1.91 mL (110 mg/mL) syringe Inject 1.91 mL subcutaneously every 4 weeks. fluticasone-salmeterol HFA (ADVAIR HFA) 230-21 mcg/actuation inhaler Inhale 2 Puffs as instructed twice daily. lansoprazole (PREVACID) 30 mg capsule Take 30 mg by mouth once daily. montelukast (SINGULAIR) 10 mg tablet Take 10 mg by mouth daily at bedtime. tamsulosin (FLOMAX) 0.4 mg Take 0.8 mg by mouth once daily. tiotropium bromide (SPIRIVA RESPIMAT) 1.25 mcg/actuation mist Inhale 2 Puffs as instructed once daily. ipratropium bromide (ATROVENT) 42 mcg (0.06 %) nasal spray Use 2 Sprays in the nose as needed. rosuvastatin (CRESTOR) 5 mg tablet Take 0.5 tablets by mouth every 48 hours. irbesartan (AVAPRO) 150 mg tablet Take 1 tablet by mouth once daily. allopurinol (ZYLOPRIM) 300 mg tablet Take 1 tablet by mouth once daily. For gout. loratadine (CLARITIN) 10 mg tablet Take 1 tablet by mouth once daily. aspirin, enteric coated (ECOTRIN LOW STRENGTH) 81 mg EC tablet Take 1 tablet by mouth once daily. (Patient taking differently: Take 81 mg by mouth every other day in the morning.) THERAPEUTIC MULTIVITAMIN TAB Take one(1) tablet daily. CPAP/BIPAP/OTHER CPAP 16 [facility] Review of Systems Constitutional: Negative for fatigue and recent unintentional weight change. HENT: Positive for congestion (chronic PND, stopped astelin for the winter, on fluticasone nasal spray, on singulair). Cardiovascular: Negative for palpitations. Gastrointestinal: Negative for heartburn. Genitourinary: Negative for nocturia. Neurological: Negative for headaches and memory loss. Also uses saline spray bid and oral non-sedating antihistamine SOCIAL HISTORY: Social History Tobacco Use Smoking status: Never Smokeless tobacco: Never Tobacco comments: Parents smoked in childhood home. Vaping Use Vaping status: Never Used Substance Use Topics Alcohol use: Yes Drug use: No FAMILY HISTORY: FAMILY HISTORY Problem Relation Age of Onset Cancer Father bone marrow There is no family history of sleep disorders. PHYSICAL EXAMINATION: Vital Signs: BP 134/80 (BP Site: Right Arm, BP Position: Sitting) Pulse 90 Wt 135.8 kg (299 lb 6.4 oz) SpO2 94% BMI 43.89 kg/m? PHYSICAL EXAM: General appearance: pleasant, NAD Mental status: alert and oriented, able to provide own history Constitutional: obese Skin: No visible rashes on exposed skin Neuro: No focal deficits observed, no tremors IMPRESSION/PLAN: G47.33 CARMELLA on CPAP (primary encounter diagnosis) Joaquin Hendricks is a 73 year old male with severe CARMELLA (AHI 90), CPAP use, insomnia when he travels, HTN, HLD, asthma, chronic sinusitis, GERD, BPH, gout, obesity, prediabetes, CAD with stent --Patient is compliant with PAP therapy and reports subjective benefits from treatment --We reviewed PAP compliance report; AHI is normalized - He knows SoClean isn't recommended - Continue CPAP at 16 cmH2O. [facility] - Remember to clean your mask and equipment regularly, as directed. - You should be eligible for new supplies approximately every 3-6 months, depending on your insurance coverage. Contact your Durable Medical Equipment (DME) company for new supplies as needed. - Follow up in 12 months with me or Dr Carvalho (his Luci has seen Dr Carvalho) Taylor Pierce APRN.WAYNE TAVARESOV Observed: 07/29/2024 10:30 AM Status: COMPLETED Source: [facility] Office Visit (PULMWS) JOAQUIN HENDRICKS ([id number]) 1950 M Date Time Provider Department 07/29/24 10:30 AM SHABANA RAMOS PULMWS During your visit today, we recorded the following information about you: Pulse Respiration Blood pressure Weight 87/minute 13/minute 132/82 137.4 kg Height 1.759 m Shabana Ramos MD 07/29/2024 1:09 PM Signed . 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 Current therapy consists of Advair, Tezspire, albuterol and daily azithromycin. Previously on Spiriva which was restarted after recent exacerbation of his asthma. Sputum pertinent for NTM and rare aspergillus. Unable to expectorate another sputum sample even with sputum induction at [facility]. Presents today for follow up. Recent asthma exacerbation responded to antibiotics and steroids. Today he states he feels well. He denies any current cough, sputum production, shortness of breath or wheezing. Pulmonary function tests are normal and exhaled nitric oxide level is normal as well. ASTHMA CONTROL TEST Date: 07/29/2024 In the last 4 weeks, how much of the time did your asthma keep you from getting as much done at work or home that you wanted to do? None of the time (5) In the last 4 weeks, how often have you had shortness of breath? Not at all (5) In the last 4 weeks, how often did your asthma symptoms (wheezing, coughing, shortness of breath, chest tightness or pain) wake you up at night or earlier than usual? Not at all (5) In the last 4 weeks, how often have you used your rescue inhaler or nebulizer medication (such as Albuterol, Proventil, Ventolin, Maxair, Xoponex, or Primatene Mist)? Not at all (5) In the last 4 weeks, how would you rate your asthma control? Completely controlled (5) Total: more than 20 DATA: SERVICE DATE: 07/29/2024 SERVICE TIME: 9:56 AM Oral Exhaled Nitric Oxide measurement: 23.0 (ppb) PFT: Sputum 04/2024: Culture Mycobacterium intracellulare / Mycobacterium chimaera group Abnormal By MALDI TOF Mass Spectrometry. Culture Rare Aspergillus fumigatus Abnormal By MALDI TOF Mass Spectrometry. Moderate normal respiratory fortino Abnormal Imaging / Diagnostic Studies: CXR 04/2024: Chest x-ray pertinent for atelectasis PAST MEDICAL HISTORY Diagnosis Date Asthma 11/21/201411/2014: DARIEL +, 20% drop in FEV1 at 25 mg/mL. CAD (coronary artery disease) Chronic sinusitis 11/21/201411/2014 CT sinus. DDD (degenerative disc disease), lumbar GERD (gastroesophageal reflux disease) Glaucoma (increased eye pressure) Bilateral Dr. Hdz Gout Hard of hearing hearing aids, Dr. Carlson Hemorrhage of gastrointestinal tract, unspecified Hypertension Mixed hyperlipidemia Hyperlipidemia Nephrolithiasis seen Dr Lanier Obstructive sleep apnea using CPAP Prediabetes Umbilical hernia ALLERGIES Allergen Reactions Lisinopril Cough Simvastatin Other: See Comments elevated liver enzyme,elevated muscle enzyme azelastine HCl (ASTEPRO ALLERGY NASAL) Use in the nose. azithromycin (ZITHROMAX) 250 mg tablet Take one daily. tezepelumab-ekko (TEZSPIRE) 210 mg/1.91 mL (110 mg/mL) syringe Inject 1.91 mL subcutaneously every 4 weeks. fluticasone-salmeterol HFA (ADVAIR HFA) 230-21 mcg/actuation inhaler Inhale 2 Puffs as instructed twice daily. lansoprazole (PREVACID) 30 mg capsule Take 30 mg by mouth once daily. montelukast (SINGULAIR) 10 mg tablet Take 10 mg by mouth daily at bedtime. tiotropium bromide (SPIRIVA RESPIMAT) 1.25 mcg/actuation mist Inhale 2 Puffs as instructed once daily. loratadine (CLARITIN) 10 mg tablet Take 1 tablet by mouth once daily. guaiFENesin (MUCINEX) 600 mg 12 hr tablet Take 1,200 mg by mouth two times a day as needed for cold/allergy symptoms. Per pt (Patient not taking: Reported on 07/29/2024) albuterol HFA (PROAIR HFA) 90 mcg/actuation inhaler Inhale 2 Puffs as instructed every 6 hours as needed for wheezing/shortness of breath. calcium carbonate (CALCIUM 500 ORAL) Take by mouth. vit A/vit C/vit E/zinc/copper (PRESERVISION AREDS ORAL) Take by mouth. B.coagul,subtilis/inulin/vit C (CULTURELLE PROBIOTIC-PREBIOTIC ORAL) Take by mouth. mv-mn/C/glutamin/lysin/ykuw233 (AIRBORNE, ASCORBATE SODIUM, ORAL) Take by mouth. tamsulosin (FLOMAX) 0.4 mg Take 0.8 mg by mouth once daily. ipratropium bromide (ATROVENT) 42 mcg (0.06 %) nasal spray Use 2 Sprays in the nose as needed. (Patient not taking: Reported on 07/29/2024) rosuvastatin (CRESTOR) 5 mg tablet Take 0.5 tablets by mouth every 48 hours. irbesartan (AVAPRO) 150 mg tablet Take 1 tablet by mouth once daily. allopurinol (ZYLOPRIM) 300 mg tablet Take 1 tablet by mouth once daily. For gout. aspirin, enteric coated (ECOTRIN LOW STRENGTH) 81 mg EC tablet Take 1 tablet by mouth once daily. (Patient taking differently: Take 81 mg by mouth every other day in the morning.) CPAP Initiate AutoPAP @ 10/20 cm of water with humidification. Mask (per patient preference) optional chin strap (if indicated) , filters, tubing, humidifier and lifetime supplies. Dx. CARMELLA 327.23 THERAPEUTIC MULTIVITAMIN TAB Take one(1) tablet daily. Social History Tobacco Use Smoking status: Never Smokeless tobacco: Never Tobacco comments: Parents smoked in childhood home. Vaping Use Vaping status: Never Used Substance Use Topics Alcohol use: Yes Drug use: No FAMILY HISTORY Problem Relation Age of Onset [...] history and surgical history reviewed and updated REVIEW OF SYSTEMS: CONSTITUTIONAL: No fevers, chills, nightsweats, unintended weight loss HEENT: Denies current nasal congestion/sinus symptoms, allergy problems. EYES: No itchy eyes CARDIOVASCULAR: No chest pain, dyspnea, palpitations. Edema. PULM: See HPI GI: No dysphagia/odynophagia, problematic reflux. INTEGUMENTARY: No new skin changes PHYSICAL EXAMINATION: BP 132/82 Pulse 87 Resp 13 Ht 5' 9.25" (1.76m) Wt 303 lb (137.4kg) SpO2 98% BMI 44.42 kg/(m2). General Appearance: Obese male, NAD. Skin: Skin color, texture, turgor normal, no suspicious rashes or lesions. Head: Normocephalic, no masses, lesions, tenderness or abnormalities. Hearing aids Oropharynx: No oral lesions or thrush. Neck: No masses or adenopathy. Lungs: Not labored, normal to percussion, no wheezes or crackles. Heart: Regular rate and rhythm, no murmurs or gallops. Extremities: Pitting edema, no clubbing. Assessment/Plan: 1. Severe persistent asthma, uncomplicated -Asthma currently controlled. He will continue with high-dose Advair, Tezspire, albuterol as needed and Spiriva -Discontinue azithromycin 2. Abnormal sputum -Aspergillus and NTM may be contaminant -Stopped azithromycin -If productive cough returns, patient does have a sputum cup at home to submit sample. If he has symptoms and unable to produce sputum would repeat CTA chest and possibly perform bronchoscopy 3. Morbid obesity -BMI 44 -Weight loss advised as obesity portends poor control of asthma Shabana Ramos MD Respiratory [facility] Shabana Ramos MD 07/29/2024 10:53 AM Signed Stop azithromycin Allergies As of Date: 07/29/2024 Noted Allergy Reaction LISINOPRIL 03/08/2013 3 - Cough SIMVASTATIN 05/25/2012 14 - Other: See Comments Comments: elevated liver enzyme,elevated muscle enzyme Date Reviewed: 07/29/2024 Reviewed by: Shabana Ramos MD - Fully Assessed Reason for Visit: Established Patient [175] Cmt: 5 month follow up Asthma [11] Primary Visit Diagnosis:Severe asthma without complication, unspecified whether persistent [J45.909] Other Visit Diagnoses:Abnormal sputum [R09.3] Morbid obesity (HCC) [E66.01] Prescriptions as of 07/29/2024 - azelastine HCl (ASTEPRO ALLERGY NASAL) Use in the nose. - guaiFENesin (MUCINEX) 600 mg 12 hr tablet Take 1,200 mg by mouth two times a day as needed for cold/allergy symptoms. Per pt - albuterol HFA (PROAIR HFA) 90 mcg/actuation inhaler Inhale 2 Puffs as instructed every 6 hours as needed for wheezing/shortness of breath. - calcium carbonate (CALCIUM 500 ORAL) Take by mouth. - vit A/vit C/vit E/zinc/copper (PRESERVISION AREDS ORAL) Take by mouth. - B.coagul,subtilis/inulin/vit C (CULTURELLE PROBIOTIC-PREBIOTIC ORAL) Take by mouth. - mv-mn/C/glutamin/lysin/fefe859 (AIRBORNE, ASCORBATE SODIUM, ORAL) Take by mouth. - azithromycin (ZITHROMAX) 250 mg tablet Take one daily. - tezepelumab-ekko (TEZSPIRE) 210 mg/1.91 mL (110 mg/mL) syringe Inject 1.91 mL subcutaneously every 4 weeks. - fluticasone-salmeterol HFA (ADVAIR HFA) 230-21 mcg/actuation inhaler Inhale 2 Puffs as instructed twice daily. - lansoprazole (PREVACID) 30 mg capsule Take 30 mg by mouth once daily. - montelukast (SINGULAIR) 10 mg tablet Take 10 mg by mouth daily at bedtime. - tamsulosin (FLOMAX) 0.4 mg Take 0.8 mg by mouth once daily. - tiotropium bromide (SPIRIVA RESPIMAT) 1.25 mcg/actuation mist Inhale 2 Puffs as instructed once daily. - ipratropium bromide (ATROVENT) 42 mcg (0.06 %) nasal spray Use 2 Sprays in the nose as needed. - rosuvastatin (CRESTOR) 5 mg tablet Take 0.5 tablets by mouth every 48 hours. - irbesartan (AVAPRO) 150 mg tablet Take 1 tablet by mouth once daily. - allopurinol (ZYLOPRIM) 300 mg tablet Take 1 tablet by mouth once daily. For gout. - loratadine (CLARITIN) 10 mg tablet Take 1 tablet by mouth once daily. - aspirin, enteric coated (ECOTRIN LOW STRENGTH) 81 mg EC tablet Take 1 tablet by mouth once daily. - CPAP Initiate AutoPAP @ 10/20 cm of water with humidification. Mask (per patient preference) optional chin strap (if indicated) , filters, tubing, humidifier and lifetime supplies. Dx. CARMELLA 327.23 - THERAPEUTIC MULTIVITAMIN TAB Take one(1) tablet daily. Problem List As Of Date 07/29/2024 Noted Resolved Anal fissure [K60.2] 08/03/2006 10/30/2011 Blood in stool [K92.1] 09/11/2006 10/30/2011 Hyperlipemia [E78.5] 05/27/2010 04/13/2017 Hypertension [I10] 05/27/2010 Pes planus [M21.40] 10/11/2010 Hyperglycemia [R73.9] 06/16/2011 09/12/2016 Sleep apnea [G47.30] 10/30/2011 09/12/2016 Insomnia [G47.00] 05/31/2012 Obesity [E66.9] 11/27/2012 06/22/2017 Gout attack [M10.9] 02/13/2013 09/12/2016 Gout [M10.9] 02/13/2013 Recurrent kidney stones [N20.0] 02/13/2013 DDD (degenerative disc disease), cervical [M50.*07/08/2013 Asthma [J45.909] 11/21/2014 Chronic sinusitis [J32.9] 11/21/2014 Chronic ethmoidal sinusitis [J32.2] 02/18/2015 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 Uses astepro spray - doxycycline (VIBRA-TABS) 100 mg tablet (Discontinued) Take 1 tablet by mouth two times a day. Disposition: Return in about 6 months (around 01/26/2025). Follow-up and Disposition History for Encounter Date Provider Department Center 07/29/2024 [id number]-CLURBSHABANA RAMOS Gerard Gonzalez Encounter Status:Closed by SHABANA RAMOS on 07/29/24 PROGRESS Observed: 07/29/2024 10:30 AM Status: COMPLETED Source: [facility] HNO ID: [id number] Author: SHABANA RAMOS MD Service: ? Author Type: Physician Type: Progress Notes Filed: 07/29/2024 13:09 Note Text: . 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 Current therapy consists of Advair, Tezspire, albuterol and daily azithromycin. Previously on Spiriva which was restarted after recent exacerbation of his asthma. Sputum pertinent for NTM and rare aspergillus. Unable to expectorate another sputum sample even with sputum induction at [facility]. Presents today for follow up. Recent asthma exacerbation responded to antibiotics and steroids. Today he states he feels well. He denies any current cough, sputum production, shortness of breath or wheezing. Pulmonary function tests are normal and exhaled nitric oxide level is normal as well. ASTHMA CONTROL TEST Date: 07/29/2024 In the last 4 weeks, how much of the time did your asthma keep you from getting as much done at work or home that you wanted to do? None of the time (5) In the last 4 weeks, how often have you had shortness of breath? Not at all (5) In the last 4 weeks, how often did your asthma symptoms (wheezing, coughing, shortness of breath, chest tightness or pain) wake you up at night or earlier than usual? Not at all (5) In the last 4 weeks, how often have you used your rescue inhaler or nebulizer medication (such as Albuterol, Proventil, Ventolin, Maxair, Xoponex, or Primatene Mist)? Not at all (5) In the last 4 weeks, how would you rate your asthma control? Completely controlled (5) Total: more than 20 DATA: SERVICE DATE: 07/29/2024 SERVICE TIME: 9:56 AM Oral Exhaled Nitric Oxide measurement: 23.0 (ppb) PFT: Sputum 04/2024: Culture Mycobacterium intracellulare / Mycobacterium chimaera group Abnormal By MALDI TOF Mass Spectrometry. Culture Rare Aspergillus fumigatus Abnormal By MALDI TOF Mass Spectrometry. Moderate normal respiratory fortino Abnormal Imaging / Diagnostic Studies: CXR 04/2024: Chest x-ray pertinent for atelectasis PAST MEDICAL HISTORY Diagnosis Date Asthma 11/21/201411/2014: DARIEL +, 20% drop in FEV1 at 25 mg/mL. CAD (coronary artery disease) Chronic sinusitis 11/21/201411/2014 CT sinus. DDD (degenerative disc disease), lumbar GERD (gastroesophageal reflux disease) Glaucoma (increased eye pressure) Bilateral Dr. Hdz Gout Hard of hearing hearing aids, Dr. Carlson Hemorrhage of gastrointestinal tract, unspecified Hypertension Mixed hyperlipidemia Hyperlipidemia Nephrolithiasis seen Dr Lnaier Obstructive sleep apnea using CPAP Prediabetes Umbilical hernia ALLERGIES Allergen Reactions Lisinopril Cough Simvastatin Other: See Comments elevated liver enzyme,elevated muscle enzyme azelastine HCl (ASTEPRO ALLERGY NASAL) Use in the nose. azithromycin (ZITHROMAX) 250 mg tablet Take one daily. tezepelumab-ekko (TEZSPIRE) 210 mg/1.91 mL (110 mg/mL) syringe Inject 1.91 mL subcutaneously every 4 weeks. fluticasone-salmeterol HFA (ADVAIR HFA) 230-21 mcg/actuation inhaler Inhale 2 Puffs as instructed twice daily. lansoprazole (PREVACID) 30 mg capsule Take 30 mg by mouth once daily. montelukast (SINGULAIR) 10 mg tablet Take 10 mg by mouth daily at bedtime. tiotropium bromide (SPIRIVA RESPIMAT) 1.25 mcg/actuation mist Inhale 2 Puffs as instructed once daily. loratadine (CLARITIN) 10 mg tablet Take 1 tablet by mouth once daily. guaiFENesin (MUCINEX) 600 mg 12 hr tablet Take 1,200 mg by mouth two times a day as needed for cold/allergy symptoms. Per pt (Patient not taking: Reported on 07/29/2024) albuterol HFA (PROAIR HFA) 90 mcg/actuation inhaler Inhale 2 Puffs as instructed every 6 hours as needed for wheezing/shortness of breath. calcium carbonate (CALCIUM 500 ORAL) Take by mouth. vit A/vit C/vit E/zinc/copper (PRESERVISION AREDS ORAL) Take by mouth. B.coagul,subtilis/inulin/vit C (CULTURELLE PROBIOTIC-PREBIOTIC ORAL) Take by mouth. mv-mn/C/glutamin/lysin/[id number] (AIRBORNE, ASCORBATE SODIUM, ORAL) Take by mouth. tamsulosin (FLOMAX) 0.4 mg Take 0.8 mg by mouth once daily. ipratropium bromide (ATROVENT) 42 mcg (0.06 %) nasal spray Use 2 Sprays in the nose as needed. (Patient not taking: Reported on 07/29/2024) rosuvastatin (CRESTOR) 5 mg tablet Take 0.5 tablets by mouth every 48 hours. irbesartan (AVAPRO) 150 mg tablet Take 1 tablet by mouth once daily. allopurinol (ZYLOPRIM) 300 mg tablet Take 1 tablet by mouth once daily. For gout. aspirin, enteric coated (ECOTRIN LOW STRENGTH) 81 mg EC tablet Take 1 tablet by mouth once daily. (Patient taking differently: Take 81 mg by mouth every other day in the morning.) CPAP Initiate AutoPAP @ 10/20 cm of water with humidification. Mask (per patient preference) optional chin strap (if indicated) , filters, tubing, humidifier and lifetime supplies. Dx. CARMELLA 327.23 THERAPEUTIC MULTIVITAMIN TAB Take one(1) tablet daily. Social History Tobacco Use Smoking status: Never Smokeless tobacco: Never Tobacco comments: Parents smoked in childhood home. Vaping Use Vaping status: Never Used Substance Use Topics Alcohol use: Yes Drug use: No FAMILY HISTORY Problem Relation Age of Onset [...] history and surgical history reviewed and updated REVIEW OF SYSTEMS: CONSTITUTIONAL: No fevers, chills, nightsweats, unintended weight loss HEENT: Denies current nasal congestion/sinus symptoms, allergy problems. EYES: No itchy eyes CARDIOVASCULAR: No chest pain, dyspnea, palpitations. Edema. PULM: See HPI GI: No dysphagia/odynophagia, problematic reflux. INTEGUMENTARY: No new skin changes PHYSICAL EXAMINATION: BP 132/82 Pulse 87 Resp 13 Ht 5' 9.25" (1.76m) Wt 303 lb (137.4kg) SpO2 98% BMI 44.42 kg/(m2). General Appearance: Obese male, NAD. Skin: Skin color, texture, turgor normal, no suspicious rashes or lesions. Head: Normocephalic, no masses, lesions, tenderness or abnormalities. Hearing aids Oropharynx: No oral lesions or thrush. Neck: No masses or adenopathy. Lungs: Not labored, normal to percussion, no wheezes or crackles. Heart: Regular rate and rhythm, no murmurs or gallops. Extremities: Pitting edema, no clubbing. Assessment/Plan: 1. Severe persistent asthma, uncomplicated -Asthma currently controlled. He will continue with high-dose Advair, Tezspire, albuterol as needed and Spiriva -Discontinue azithromycin 2. Abnormal sputum -Aspergillus and NTM may be contaminant -Stopped azithromycin -If productive cough returns, patient does have a sputum cup at home to submit sample. If he has symptoms and unable to produce sputum would repeat CTA chest and possibly perform bronchoscopy 3. Morbid obesity -BMI 44 -Weight loss advised as obesity portends poor control of asthma Shabana Ramos MD Respiratory [facility] PROCEDURE Observed: 07/29/2024 9:56 AM Status: COMPLETED Source: [facility] HNO ID: [id number] Author: REECE BOLANOS RPFT Service: ? Author Type: Respiratory Therapist Type: Procedures Filed: 07/29/2024 09:57 Note Text: RESPIRATORY THERAPY ORAL EXHALED NITRIC OXIDE SERVICE DATE: 07/29/2024 SERVICE TIME: 9:56 AM Oral Exhaled Nitric Oxide measurement: 23.0 (ppb) Normal: Adult <25 ppb, pediatric (<12 years) <20 ppb High Normal / Increased: Adult 25-50 ppb, pediatric (<12 years) 20-35 ppb Moderately raised exhaled Nitric Oxide may indicate underlying inflammation, but note that: Cold and influenza can raise exhaled Nitric Oxide and some patients have higher baseline exhaled Nitric Oxide levels than others. High: Adult >50 ppb, pediatric (<12 years) >35 ppb Indicative of ongoing eosinophilic inflammation. Symptomatic patient likely to respond to steroids. Possible causes (if already on steroids): Poor compliance, recent allergen exposure, steroid dose inadequate, and steroid resistance. Note that not all patients with high exhaled nitric oxide levels display symptoms. Oral Exhaled Nitric Oxide measurement (Previous Encounters) Test Date Oral Exhaled Nitric Oxide (ppb) 07/29/2024 23.0 01/16/2023 19.0 NAME: BIPIN Whitley PATIENT NAME: Joaquin Hendricks DATE: July 29, 2024 TIME: 9:56 AM PROGRESS Observed: 07/29/2024 9:40 AM Status: COMPLETED Source: [facility] HNO ID: [id number] Author: REECE BOLANOS RPFT Service: ? Author Type: Respiratory Therapist Type: Progress Notes Filed: 07/29/2024 09:57 Note Text: PULM FUNCTION: Provider: Elena Dior MD Assisting Tech: Reece Bolanos RPFT Spirometry w/BD: 1 Exhaled Nitric Oxide: 1 PROGRESS Observed: 05/23/2024 9:06 AM Status: COMPLETED Source: [facility] HNO ID: [id number] Author: SHABANA RAMOS MD Service: ? Author Type: Physician Type: Progress Notes Filed: 05/23/2024 09:13 Note Text: [facility] Induction of sputum for AFB culture 6% saline 4 mL nebulized x 1 With PEP device teaching Albuterol 2.5 mg/3 mL nebulized if needed for bronchospasm Shabana Ramos MD [id number] BACTERIA SPEC RESP CULT Observed: 2023 1:00 AM Status: F Source: [facility] ORGANISM ID: 1 Rare Aspergillus fumigatus By MALDI TOF Mass Spectrometry. ORGANISM ID: 2 Moderate normal respiratory fortino GRAM STAIN: Rare Mixed oral fortino No Polymorphonuclear Leukocytes Performed By: #### [id number], [id number] #### [facility] CLIA [id number] [address] [place] [address] [facility] MICROORGANISM SPEC CULT Observed: 2023 1:00 AM Status: F Source: [facility] ORGANISM ID: 1 Mycobacterium intracellulare / Mycobacterium chimaera group By MALDI TOF Mass Spectrometry. Susceptibility is not routinely performed, please contact Microbiology within 4 weeks if susceptibility testing is clinically indicated. AFB STAIN: No acid fast bacilli seen by flurochrome stain Performed By: #### [id number], [id number] #### [facility] CLIA [id number] [address] [place] [address] PROGRESS Observed: 04/15/2024 3:06 PM Status: COMPLETED Source: [facility] HNO ID: [id number] Author: BRENDA CHAPARRO APRN.WAYNE Service: ? Author Type: Nurse Practitioner Type: Progress Notes Filed: 04/15/2024 15:12 Note Text: Called and discussed chest xray and lab results. Patient continues to have cough symptoms that are keeping him up at night. Will treat with course of Doxycycline. Instructed to hold Azithromycin, calcium, preservision and Airborne while taking Doxycycline. Can resume once complete. Brenda Chaparro APRN.COLLAR STAY FUSER TENDER PROGRESS Observed: 04/13/2024 4:50 PM Status: COMPLETED Source: [facility] HNO ID: [id number] Author: SVEN SUN RT(Nedra) Service: ? Author Type: Technologist Type: Progress Notes Filed: 04/13/2024 16:52 Note Text: Radiology Service Progress Note PATIENT NAME: Joaquin Hendricks DATE OF SERVICE: April 13, 2024 TIME: 4:52 PM PATIENT IDENTITY VERIFICATION COMPLETED USING TWO (2) IDENTIFIERS: Name and Date of confirmed by patient verbally. FALL SCREENING: Has the patient had 2 falls in the last year or 1 fall with injury or currently using an Ambulatory Assistive Device (Walker, Cane, Wheelchair, Crutches, etc.)? No PATIENT GENDER DATA: Male PATIENT RELEVANT IMPLANT DATA REVIEWED: Not Applicable PATIENT PRESENTS WITH AN IMPLANTABLE OR ATTACHED VENDOR MANAGER: No RADIOLOGY DEPARTMENT: General X-ray: Exam(s) Completed: Chest X-Ray PERIPHERAL IV DATA: Not applicable SIGNED BY: RT Eddie(R) April 13, 2024 4:52 PM XR CHEST 2V FRONTAL/LAT Observed: 2023 4:43 PM Status: F Source: [facility] * * *Final Report* * * DATE OF EXAM: Apr 13 2024 4:43PM [id number] [id number] - XR CHEST 2V FRONTAL/LAT / PROCEDURE REASON: Cough, unspecified type * * * * Physician Interpretation * * * * EXAMINATION: CHEST RADIOGRAPH (2 VIEW FRONTAL and LATERAL) CLINICAL HISTORY: Cough, unspecified type MQ: [id number] EXAM DATE/TIME: 04/13/2024 4:43 PM COMPARISON: Chest x-ray on 07/18/2016 RESULT: Lines, tubes, and devices: None. Lungs and pleura: No consolidation. No lung mass. No pleural effusion. No pneumothorax. Cardiomediastinal silhouette: Stable cardiac silhouette, with tortuosity of the thoracic aorta. Bones and soft tissues: The spine shows degenerative changes. Status post cervical spinal fusion. IMPRESSION: No acute radiographic abnormality. Track Repair Worker: PSCTina Transcribe Date/Time: Apr 13 2024 4:59P Dictated by : DONALD HARTLEY MD This examination was interpreted and the report reviewed and electronically signed by: DONALD HARTLEY MD on Apr 13 2024 5:00PM EST [id number] CBC W AUTO DIFF BLD Collected: 04/13/2024 4:[address] atus: F Source: [facility] Order Comment: Specimen Type : BLOOD SPECIMEN Ordering Facility: [facility] Address: [address] [place] [address] TYPE CODE TESTS RESULT OUT OF RANGE REFERENCE UNITS LAB 6690-2(LOINC) WBC # Bld Auto 9.13 3.70-11.00 k/uL LAB 789-8(LOINC) RBC # Bld Auto 4.94 4.20-6.00 m/ uL LAB 718-7(LOINC) Hgb Bld-mCnc 14.9 13.0-17.0 g/dL LAB 4544-3(LOINC) Hct VFr Bld Auto 45.0 39.0-51.0 % LAB 787-2(LOINC) MCV RBC Auto 91.1 80.0-100.0 fL LAB 785-6(LOINC) MCH RBC Qn Auto 30.2 26.0-34.0 p g LAB 786-4([facility]) MCHC RBC Auto-mCnc 33.1 30.5-36.0 g/dL LAB 44298-6([facility]) RDW RBC-Rto 14.4 11.5-15.0 % LAB 777-3([facility]) Platelet # Bld Auto 227 150-400 k/uL LAB 89361-4([facility]) PMV Bld Auto 10.2 9.0-12.7 fL LAB 770-8([facility]) Neutrophils/leuk NFr Bld Auto 87.7 % LAB 751-8([facility]) Neutrophils # Bld Auto 8.01 High 1.45-7.50 k/uL LAB 736-9([facility]) Lymphocytes/leuk NFr Bld Auto 9.2 % LAB 731-0([facility]) Lymphocytes # Bld Auto 0.84 Low 1.00-4.00 k/uL LAB 5905-5([facility]) Monocytes/leuk NFr Bld Auto 2.2 % LAB 742-7([facility]) Monocytes # Bld Auto 0.20 <0.87 k/uL LAB 713-8([facility]) Eosinophil/leuk NFr Bld Auto 0.0 % LAB 711-2([facility]) Eosinophil # Bld Auto <0.03 <0.46 k/uL LAB 706-2([facility]) Basophils/leuk NFr Bld Auto 0.1 % LAB 704-7([facility]) Basophils # Bld Auto <0.03 <0.11 k/uL LAB 50150-3([facility]) Imm Granulocytes/drew k NFr Bld Auto 0.8 % LAB 01823-7([facility]) Imm Granulocytes # Bld Auto 0.07 <0.10 k/uL LAB 30187-2([facility]) nRBC/100 WBC Bld-Rto 0.0 /100 WBC LAB 771-6([facility]) nRBC # Bld Auto <0.01 <0.01 k/u L LAB 43689-4([facility]) Differential method Bld Auto Performed By: #### [id number] # ### [facility] CLIA [id number] [facility] [address] [address] [place] PROGRESS Observed: 04/13/2024 3:30 PM Status: COMPLETED Source: [facility] HNO ID: [id number] Author: BRENDA CHAPARRO APRN.WAYNE Service: ? Author Type: Nurse Practitioner Type: Progress Notes Filed: 04/13/2024 16:44 Note Text: Pulmonary Medicine Patients name: Joaquin Hendricks PCP: Art Ureña MD CC: asthma/ED follow-up HPI: Joaquin Hendricks is a 73 year old male never smoker with PMH significant for morbid obesity, asthma (positive DARIEL), CARMELLA on CPAP, HTN, HLD, CAD s/p stent, 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 Current therapy consists of Advair, Tezspire (receiving at [facility] infusion center due to insurance reasons), daily azithromycin and albuterol as needed. He was seen by Dr. Ramos on 02/25/24 and was stepped down on therapy d/t stability in symptoms. Spiriva was stopped at that time with a plan to taper down on Azithromycin if he was doing well. He developed a sore throat 04/03 and was seen at [facility] a few days later with negative for flu/strep testing. The sore throat eventually stopped. 04/09, he started wheezing and went into a coughing attack that was so severe he couldn't complete a breathing treatment and presented to the ED. He was treated with multiple albuterol treatments and given Prednisone burst which he will be done with tomorrow. Spiriva was also restarted. Reportedly, chest xray was negative. Since being home, he has continued to have a cough and PND which he reports he normally has. Reports sinus congestion. He has restarted bronchopulmonary hygiene. Initally not producing any sputum but today, for the first time, he was able to produce sputum that was thick and clear/yellowish. No hemoptysis. No wheezing. Dyspnea not overly bothersome with exertion. No fevers, chills, or night sweats. Albuterol is currently twice a day along with Mucinex. PAST MEDICAL HISTORY Diagnosis Date Asthma 11/21/201411/2014: [...] See Comments Comment:elevated liver enzyme,elevated muscle enzyme Medication List Accurate as of April 13, 2024 11:24 AM. If you have any questions, ask your nurse or doctor. CHANGE how you take these medications aspirin, enteric coated 81 mg EC tablet Commonly known as: ECOTRIN LOW STRENGTH Take 1 tablet by mouth once daily. What changed: when to take this CONTINUE taking these medications ADVAIR HFA 230-21 mcg/actuation inhaler Generic drug: fluticasone-salmeterol HFA AIRBORNE (ASCORBATE SODIUM) ORAL albuterol HFA 90 mcg/actuation inhaler Commonly known as: PROAIR HFA Inhale 2 Puffs as instructed every 6 hours as needed for wheezing/shortness of breath. allopurinol 300 mg tablet Commonly known as: ZYLOPRIM Take 1 tablet by mouth once daily. For gout. azelastine-fluticasone 137-50 mcg/spray nasal spray Commonly known as: DYMISTA azithromycin 250 mg tablet Commonly known as: ZITHROMAX Take one daily. CALCIUM 500 ORAL CPAP Initiate AutoPAP @ 10/20 cm of water with humidification. Mask (per patient preference) optional chin strap (if indicated) , filters, tubing, humidifier and lifetime supplies. Dx. CARMELLA 327.23 CULTURELLE PROBIOTIC-PREBIOTIC ORAL ipratropium bromide 42 mcg (0.06 %) nasal spray Commonly known as: ATROVENT irbesartan 150 mg tablet Commonly known as: AVAPRO Take 1 tablet by mouth once daily. lansoprazole 30 mg capsule Commonly known as: PREVACID loratadine 10 mg tablet Commonly known as: CLARITIN Take 1 tablet by mouth once daily. PRESERVISION AREDS ORAL rosuvastatin 5 mg tablet Commonly known as: CRESTOR Take 0.5 tablets by mouth every 48 hours. SINGULAIR 10 mg tablet Generic drug: montelukast SPIRIVA RESPIMAT 1.25 mcg/actuation inhaler Generic drug: tiotropium bromide tamsulosin 0.4 mg Commonly known as: FLOMAX TEZSPIRE 210 mg/1.91 mL (110 mg/mL) syringe Generic drug: tezepelumab-ekko Inject 1.91 mL subcutaneously every 4 weeks. therapeutic multivitamin tablet Commonly known as: THERA VITAMIN Take one(1) tablet daily. DATA: I personally reviewed and analyzed all labs, radiographs and available pulmonary function testing PFT: 01/16/2023 IMPRESSION: Spirometry is normal. IMMUNIZATIONS Prevnar - 05/2023 Pneumovax 23 - xx Influenza - xx COVID-19 - xx RSV- xx Review of Systems Constitutional: Negative for activity change, appetite change, fatigue and unexpected weight change. HENT: Positive for congestion and postnasal drip. Negative for mouth sores. Respiratory: Positive for cough and shortness of breath. Negative for chest tightness and wheezing. Cardiovascular: Negative for chest pain and palpitations. Allergic/Immunologic: Positive for environmental allergies. Neurological: Negative for weakness, light-headedness and headaches. BP 132/82 (BP Site: Right Arm) Pulse 80 Resp 18 Wt 135.6 kg (299 lb) SpO2 95% BMI 43.84 kg/m? Physical Exam Vitals reviewed. Constitutional: General: He is not in acute distress. Appearance: Normal appearance. He is obese. HENT: Head: Normocephalic. Nose: No rhinorrhea. Mouth/Throat: Mouth: Mucous membranes are moist. Pharynx: No oropharyngeal exudate. Cardiovascular: Rate and Rhythm: Normal rate and regular rhythm. Heart sounds: Normal heart sounds. Pulmonary: Effort: Pulmonary effort is normal. No respiratory distress. Breath sounds: Rhonchi (LLL) present. No wheezing. Musculoskeletal: Right lower leg: Edema present. Left lower leg: Edema present. Comments: Mild edema. Baseline Lymphadenopathy: Cervical: No cervical adenopathy. Skin: General: Skin is warm and dry. Capillary Refill: Capillary refill takes less than 2 seconds. Neurological: General: No focal deficit present. Mental Status: He is alert. ASSESSMENT/PLAN: 1. Severe persistent asthma with acute exacerbation - ICD9: 493.92, ICD10: J45.51 (primary diagnosis) - Severe persistent asthma acute exacerbation seen in the ED 04/10 - Continue Advair, Spiriva (restarted in ED), Tezspire and Azithromycin - Continue Albuterol PRN - Continue Prednisone burst - Prednisone taper to have on hand, will notify the office if he feels like he needs to use. 2. Cough, unspecified type - ICD9: 786.2, ICD10: R05.9 - chest xray and labs to assess for infection - XR CHEST 2V FRONTAL/LAT - COMPLETE BLOOD COUNT AND DIFFERENTIAL - currently on chronic Azithromycin. Will consider holding and treating with antibiotic course depending on results of testing. - continue pulmonary hygiene and Mucinex. F/u scheduled in July with Dr. Ramos Portions of this documentation were copied and pasted from previous office visit notes in order to provide a cohesive continuity of the history. The note has been reviewed and edited and updated as necessary. Brenda Chaparro APRN.CNP I spent a total of 49 minutes on the date of the service which included preparing to see the patient, [id number] patient care, completing clinical documentation, performing a medically appropriate examination, counseling and educating the patient/family/caregiver, and ordering medications, tests, or procedures. CNOV Observed: 04/13/2024 3:30 PM Status: COMPLETED Source: [facility] Office Visit (PULMWS) JOAQUIN HENDRICKS ([id number]) 1950 M Date Time Provider Department 04/13/24 3:30 PM BRENDA CHAPARRO PULMWS During your visit today, we recorded the following information about you: Pulse Respiration Blood pressure Weight 80/minute 18/minute 132/82 135.6 kg Brenda Chaparro APRN.CNP 04/13/2024 4:44 PM Signed Pulmonary Medicine Patients name: Joaquin Hendricks PCP: Art Ureña MD CC: asthma/ED follow-up HPI: Joaquin Hendricks is a 73 year old male never smoker with PMH significant for morbid obesity, asthma (positive DARIEL), CARMELLA on CPAP, HTN, HLD, CAD s/p stent, 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 Current therapy consists of Advair, Tezspire (receiving at [facility] infusion center due to insurance reasons), daily azithromycin and albuterol as needed. He was seen by Dr. Ramos on 02/25/24 and was stepped down on therapy d/t stability in symptoms. Spiriva was stopped at that time with a plan to taper down on Azithromycin if he was doing well. He developed a sore throat 04/03 and was seen at [facility] a few days later with negative for flu/strep testing. The sore throat eventually stopped. 04/09, he started wheezing and went into a coughing attack that was so severe he couldn't complete a breathing treatment and presented to the ED. He was treated with multiple albuterol treatments and given Prednisone burst which he will be done with tomorrow. Spiriva was also restarted. Reportedly, chest xray was negative. Since being home, he has continued to have a cough and PND which he reports he normally has. Reports sinus congestion. He has restarted bronchopulmonary hygiene. Initally not producing any sputum but today, for the first time, he was able to produce sputum that was thick and clear/yellowish. No hemoptysis. No wheezing. Dyspnea not overly bothersome with exertion. No fevers, chills, or night sweats. Albuterol is currently twice a day along with Mucinex. PAST MEDICAL HISTORY Diagnosis Date Asthma 11/21/201411/2014: [...] See Comments Comment:elevated liver enzyme,elevated muscle enzyme Medication List Accurate as of April 13, 2024 11:24 AM. If you have any questions, ask your nurse or doctor. CHANGE how you take these medications aspirin, enteric coated 81 mg EC tablet Commonly known as: ECOTRIN LOW STRENGTH Take 1 tablet by mouth once daily. What changed: when to take this CONTINUE taking these medications ADVAIR HFA 230-21 mcg/actuation inhaler Generic drug: fluticasone-salmeterol HFA AIRBORNE (ASCORBATE SODIUM) ORAL albuterol HFA 90 mcg/actuation inhaler Commonly known as: PROAIR HFA Inhale 2 Puffs as instructed every 6 hours as needed for wheezing/shortness of breath. allopurinol 300 mg tablet Commonly known as: ZYLOPRIM Take 1 tablet by mouth once daily. For gout. azelastine-fluticasone 137-50 mcg/spray nasal spray Commonly known as: DYMISTA azithromycin 250 mg tablet Commonly known as: ZITHROMAX Take one daily. CALCIUM 500 ORAL CPAP Initiate AutoPAP @ 10/20 cm of water with humidification. Mask (per patient preference) optional chin strap (if indicated) , filters, tubing, humidifier and lifetime supplies. Dx. CARMELLA 327.23 CULTURELLE PROBIOTIC-PREBIOTIC ORAL ipratropium bromide 42 mcg (0.06 %) nasal spray Commonly known as: ATROVENT irbesartan 150 mg tablet Commonly known as: AVAPRO Take 1 tablet by mouth once daily. lansoprazole 30 mg capsule Commonly known as: PREVACID loratadine 10 mg tablet Commonly known as: CLARITIN Take 1 tablet by mouth once daily. PRESERVISION AREDS ORAL rosuvastatin 5 mg tablet Commonly known as: CRESTOR Take 0.5 tablets by mouth every 48 hours. SINGULAIR 10 mg tablet Generic drug: montelukast SPIRIVA RESPIMAT 1.25 mcg/actuation inhaler Generic drug: tiotropium bromide tamsulosin 0.4 mg Commonly known as: FLOMAX TEZSPIRE 210 mg/1.91 mL (110 mg/mL) syringe Generic drug: tezepelumab-ekko Inject 1.91 mL subcutaneously every 4 weeks. therapeutic multivitamin tablet Commonly known as: THERA VITAMIN Take one(1) tablet daily. DATA: I personally reviewed and analyzed all labs, radiographs and available pulmonary function testing PFT: 01/16/2023 IMPRESSION: Spirometry is normal. IMMUNIZATIONS Prevnar - 05/2023 Pneumovax 23 - xx Influenza - xx COVID-19 - xx RSV- xx Review of Systems Constitutional: Negative for activity change, appetite change, fatigue and unexpected weight change. HENT: Positive for congestion and postnasal drip. Negative for mouth sores. Respiratory: Positive for cough and shortness of breath. Negative for chest tightness and wheezing. Cardiovascular: Negative for chest pain and palpitations. Allergic/Immunologic: Positive for environmental allergies. Neurological: Negative for weakness, light-headedness and headaches. BP 132/82 (BP Site: Right Arm) Pulse 80 Resp 18 Wt 135.6 kg (299 lb) SpO2 95% BMI 43.84 kg/m? Physical Exam Vitals reviewed. Constitutional: General: He is not in acute distress. Appearance: Normal appearance. He is obese. HENT: Head: Normocephalic. Nose: No rhinorrhea. Mouth/Throat: Mouth: Mucous membranes are moist. Pharynx: No oropharyngeal exudate. Cardiovascular: Rate and Rhythm: Normal rate and regular rhythm. Heart sounds: Normal heart sounds. Pulmonary: Effort: Pulmonary effort is normal. No respiratory distress. Breath sounds: Rhonchi (LLL) present. No wheezing. Musculoskeletal: Right lower leg: Edema present. Left lower leg: Edema present. Comments: Mild edema. Baseline Lymphadenopathy: Cervical: No cervical adenopathy. Skin: General: Skin is warm and dry. Capillary Refill: Capillary refill takes less than 2 seconds. Neurological: General: No focal deficit present. Mental Status: He is alert. ASSESSMENT/PLAN: 1. Severe persistent asthma with acute exacerbation - ICD9: 493.92, ICD10: J45.51 (primary diagnosis) - Severe persistent asthma acute exacerbation seen in the ED 04/10 - Continue Advair, Spiriva (restarted in ED), Tezspire and Azithromycin - Continue Albuterol PRN - Continue Prednisone burst - Prednisone taper to have on hand, will notify the office if he feels like he needs to use. 2. Cough, unspecified type - ICD9: 786.2, ICD10: R05.9 - chest xray and labs to assess for infection - XR CHEST 2V FRONTAL/LAT - COMPLETE BLOOD COUNT AND DIFFERENTIAL - currently on chronic Azithromycin. Will consider holding and treating with antibiotic course depending on results of testing. - continue pulmonary hygiene and Mucinex. F/u scheduled in July with Dr. Ramos Portions of this documentation were copied and pasted from previous office visit notes in order to provide a cohesive continuity of the history. The note has been reviewed and edited and updated as necessary. Brenda Chaparro APRN.CNP I spent a total of 49 minutes on the date of the service which included preparing to see the patient, [id number] patient care, completing clinical documentation, performing a medically appropriate examination, counseling and educating the patient/family/caregiver, and ordering medications, tests, or procedures. Brenda Chaparro APRN.CNP 04/13/2024 4:14 PM Signed Chest xray and labs today. Continue Prednisone given to you in the ED. Pending results of xray and labs, will consider additional antibiotics. Continue pulmonary hygiene as you've been doing along with Mucinex. Prednisone taper if you develop symptoms again. Referring Provider: [facility] [[id number]] Allergies As of Date: 04/13/2024 Noted Allergy Reaction LISINOPRIL 03/08/2013 3 - Cough SIMVASTATIN 05/25/2012 14 - Other: See Comments Comments: elevated liver enzyme,elevated muscle enzyme Date Reviewed: 04/13/2024 Reviewed by: Brenda Chaparro APRN.[employer]ER - Fully Assessed Reason for Visit: Hospital F/U [57] Primary Visit Diagnosis:Severe persistent asthma with acute exacerbation [J45.51] Other Visit Diagnosis:Cough, unspecified type [R05.9] Order(s):albuterol HFA (PROAIR HFA) 90 mcg/actuation inhalerInhale 2 Puffs as instructed every 6 hours as needed for wheezing/shortness of breath.Disp: 3 EachRfl: 3 XR CHEST 2V FRONTAL/LAT [[id number]] Order #: [id number] FUTURE COMPLETE BLOOD COUNT AND DIFFERENTIAL [SQCBCDIF] Order #: [id number] FUTURE predniSONE (DELTASONE) 20 mg tabletTake 2 tablets by mouth once daily for 3 days, THEN 1.5 tablets once daily for 3 days, THEN 1 tablet once daily for 3 days, THEN 0.5 tablets once daily for 3 days.Disp: 15 tabletRfl: 0 Prescriptions as of 04/13/2024 - guaiFENesin (MUCINEX) 600 mg 12 hr tablet Take 1,200 mg by mouth two times a day as needed for cold/allergy symptoms. Per pt - albuterol HFA (PROAIR HFA) 90 mcg/actuation inhaler Inhale 2 Puffs as instructed every 6 hours as needed for wheezing/shortness of breath. - predniSONE (DELTASONE) 20 mg tablet Take 2 tablets by mouth once daily for 3 days, THEN 1.5 tablets once daily for 3 days, THEN 1 tablet once daily for 3 days, THEN 0.5 tablets once daily for 3 days. - calcium carbonate (CALCIUM 500 ORAL) Take by mouth. - vit A/vit C/vit E/zinc/copper (PRESERVISION AREDS ORAL) Take by mouth. - B.coagul,subtilis/inulin/vit C (CULTURELLE PROBIOTIC-PREBIOTIC ORAL) Take by mouth. - mv-mn/C/glutamin/lysin/plnf463 (AIRBORNE, ASCORBATE SODIUM, ORAL) Take by mouth. - azithromycin (ZITHROMAX) 250 mg tablet Take one daily. - tezepelumab-ekko (TEZSPIRE) 210 mg/1.91 mL (110 mg/mL) syringe Inject 1.91 mL subcutaneously every 4 weeks. - fluticasone-salmeterol HFA (ADVAIR HFA) 230-21 mcg/actuation inhaler Inhale 2 Puffs as instructed twice daily. - lansoprazole (PREVACID) 30 mg capsule Take 30 mg by mouth once daily. - montelukast (SINGULAIR) 10 mg tablet Take 10 mg by mouth daily at bedtime. - tamsulosin (FLOMAX) 0.4 mg Take 0.8 mg by mouth once daily. - tiotropium bromide (SPIRIVA RESPIMAT) 1.25 mcg/actuation mist Inhale 2 Puffs as instructed once daily. - azelastine-fluticasone 137-50 mcg/spray spry Use in each nostril once daily. Uses astepro spray - ipratropium bromide (ATROVENT) 42 mcg (0.06 %) nasal spray Use 2 Sprays in the nose as needed. - rosuvastatin (CRESTOR) 5 mg tablet Take 0.5 tablets by mouth every 48 hours. - irbesartan (AVAPRO) 150 mg tablet Take 1 tablet by mouth once daily. - allopurinol (ZYLOPRIM) 300 mg tablet Take 1 tablet by mouth once daily. For gout. - loratadine (CLARITIN) 10 mg tablet Take 1 tablet by mouth once daily. - aspirin, enteric coated (ECOTRIN LOW STRENGTH) 81 mg EC tablet Take 1 tablet by mouth once daily. - CPAP Initiate AutoPAP @ 10/20 cm of water with humidification. Mask (per patient preference) optional chin strap (if indicated) , filters, tubing, humidifier and lifetime supplies. Dx. CARMELLA 327.23 - THERAPEUTIC MULTIVITAMIN TAB Take one(1) tablet daily. Problem List As Of Date 04/13/2024 Noted Resolved Anal fissure [K60.2] 08/03/2006 10/30/2011 Blood in stool [K92.1] 09/11/2006 10/30/2011 Hyperlipemia [E78.5] 05/27/2010 04/13/2017 Hypertension [I10] 05/27/2010 Pes planus [M21.40] 10/11/2010 Hyperglycemia [R73.9] 06/16/2011 09/12/2016 Sleep apnea [G47.30] 10/30/2011 09/12/2016 Insomnia [G47.00] 05/31/2012 Obesity [E66.9] 11/27/2012 06/22/2017 Gout attack [M10.9] 02/13/2013 09/12/2016 Gout [M10.9] 02/13/2013 Recurrent kidney stones [N20.0] 02/13/2013 DDD (degenerative disc disease), cervical [M50.*07/08/2013 Asthma [J45.909] 11/21/2014 Chronic sinusitis [J32.9] 11/21/2014 Chronic ethmoidal sinusitis [J32.2] 02/18/2015 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 Continue Prednisone given to you in the ED. Pending results of xray and labs, will consider additional antibiotics. Continue pulmonary hygiene as you've been doing along with Mucinex. Prednisone taper if you develop symptoms again. Prescriptions ordered this encounter Disp Refills Start End ALBUTEROL SULFATE HFA 90 MCG/ACTUATI* 3 Ea* 3 04/13/2024 Cmt: Generic or brand: dispense inhaler preferred by patient/insurance unless CHRISTINA flag is selected. Route: INHALATION Sig: Inhale 2 Puffs as instructed every 6 hours as needed for wheezing/shortness of breath. PREDNISONE 20 MG TABLET 15 t* 0 04/13/2024 04/25/2024 Route: ORAL Sig: Take 2 tablets by mouth once daily for 3 days, THEN 1.5 tablets once daily for 3 days, THEN 1 tablet once daily for 3 days, THEN 0.5 tablets once daily for 3 days. Medications Discontinued During This Encounter Prescriptions - albuterol HFA (PROAIR HFA) 90 mcg/actuation inhaler (Discontinued) Reported on 03/16/2024 Level of Service: OFFICE/OUTPATIENT ESTABLISHED [facility] 40 MIN [78414] Additional E/M codes: VISIT CPLX INHERENT EANDM ASSOC WITH MED * Encounter Status:Closed by KRYSTA, BRENDA Matias on 04/13/24 KADEN Observed: 04/11/2024 12:00 AM Status: COMPLETED Source: [facility] Telephone ([employer]) JOAQUIN HENDRICKS ([id number]) 1950 M Date Time Provider Department 04/11/24 ELENA DIOR FightersERNESTO During your visit today, we recorded the following information about you: Barbara Mtz 04/11/2024 12:07 PM Signed Pt scheduled lab visit before 08/17/24 visit. Labs have 09/13/24 date on them and unable to link to appointment. Lab orders need due date adjusted or new orders placed. Please let pt know if appointments are too soon and it is the appointment needing adjusted. Constanza Upton RN 04/11/2024 12:18 PM Signed Please advise. MOIRA 03/16/24 next FU 08/17/24 Elena Dior MD 04/11/2024 1:05 PM Signed New orders placed for approx date of 08/10/24, MD Won Cunha Candice, RN 04/12/2024 9:58 AM Signed LVM for patient Allergies As of Date: 04/11/2024 Noted Allergy Reaction LISINOPRIL 03/08/2013 3 - Cough SIMVASTATIN 05/25/2012 14 - Other: See Comments Comments: elevated liver enzyme,elevated muscle enzyme Date Reviewed: 04/03/2024 Reviewed by: Angie Evans MA - Fully Assessed Reason for Visit: Orders [681] Primary Visit Diagnosis:Hypogammaglobulinemia (HCC) [D80.1] Order(s):IMMUNOGLOBULIN G [SQIGG] Order #: [id number] FUTURE IMMUNOGLOBULIN A [SQIGA] Order #: [id number] FUTURE IMMUNOGLOBULIN M [SQIGM] Order #: [id number] FUTURE Prescriptions as of 04/12/2024 - calcium carbonate (CALCIUM 500 ORAL) Take by mouth. - vit A/vit C/vit E/zinc/copper (PRESERVISION AREDS ORAL) Take by mouth. - B.coagul,subtilis/inulin/vit C (CULTURELLE PROBIOTIC-PREBIOTIC ORAL) Take by mouth. - mv-mn/C/glutamin/lysin/zayi354 (AIRBORNE, ASCORBATE SODIUM, ORAL) Take by mouth. - azithromycin (ZITHROMAX) 250 mg tablet Take one daily. - albuterol HFA (PROAIR HFA) 90 mcg/actuation inhaler Inhale 2 Puffs as instructed every 6 hours as needed for wheezing/shortness of breath. - tezepelumab-ekko (TEZSPIRE) 210 mg/1.91 mL (110 mg/mL) syringe Inject 1.91 mL subcutaneously every 4 weeks. - fluticasone-salmeterol HFA (ADVAIR HFA) 230-21 mcg/actuation inhaler Inhale 2 Puffs as instructed twice daily. - lansoprazole (PREVACID) 30 mg capsule Take 30 mg by mouth once daily. - montelukast (SINGULAIR) 10 mg tablet Take 10 mg by mouth daily at bedtime. - tamsulosin (FLOMAX) 0.4 mg Take 0.4 mg by mouth once daily. - tiotropium bromide (SPIRIVA RESPIMAT) 1.25 mcg/actuation mist Inhale 2 Puffs as instructed once daily. - azelastine-fluticasone 137-50 mcg/spray spry Use in each nostril once daily. Uses astepro spray - ipratropium bromide (ATROVENT) 42 mcg (0.06 %) nasal spray Use 2 Sprays in the nose as needed. - rosuvastatin (CRESTOR) 5 mg tablet Take 0.5 tablets by mouth every 48 hours. - irbesartan (AVAPRO) 150 mg tablet Take 1 tablet by mouth once daily. - allopurinol (ZYLOPRIM) 300 mg tablet Take 1 tablet by mouth once daily. For gout. - loratadine (CLARITIN) 10 mg tablet Take 1 tablet by mouth once daily. - aspirin, enteric coated (ECOTRIN LOW STRENGTH) 81 mg EC tablet Take 1 tablet by mouth once daily. - CPAP Initiate AutoPAP @ 10/20 cm of water with humidification. Mask (per patient preference) optional chin strap (if indicated) , filters, tubing, humidifier and lifetime supplies. Dx. CARMELLA 327.23 - THERAPEUTIC MULTIVITAMIN TAB Take one(1) tablet daily. Problem List As Of Date 04/11/2024 Noted Resolved Anal fissure [K60.2] 08/03/2006 10/30/2011 Blood in stool [K92.1] 09/11/2006 10/30/2011 Hyperlipemia [E78.5] 05/27/2010 04/13/2017 Hypertension [I10] 05/27/2010 Pes planus [M21.40] 10/11/2010 Hyperglycemia [R73.9] 06/16/2011 09/12/2016 Sleep apnea [G47.30] 10/30/2011 09/12/2016 Insomnia [G47.00] 05/31/2012 Obesity [E66.9] 11/27/2012 06/22/2017 Gout attack [M10.9] 02/13/2013 09/12/2016 Gout [M10.9] 02/13/2013 Recurrent kidney stones [N20.0] 02/13/2013 DDD (degenerative disc disease), cervical [M50.*07/08/2013 Asthma [J45.909] 11/21/2014 Chronic sinusitis [J32.9] 11/21/2014 Chronic ethmoidal sinusitis [J32.2] 02/18/2015 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 GERD (gastroesophageal reflux disease) [K21.9] Nephrolithiasis [N20.0] 06/22/2017 Mixed hyperlipidemia [E78.2] Obstructive sleep apnea [G47.33] Morbid obesity (HCC) [E66.01] Umbilical hernia [K42.9] Prediabetes [R73.03] 09/12/2016 Colon cancer screening [Z12.11] 05/15/2017 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] 05/25/2018 Epithelial inclusion cyst [L72.0] 06/10/2018 Encounter Status:Closed by CONSTANZA UPTON on 04/12/24 ALLERGIES DATE TYPE / CODE NAME / CODE REACTION SEVERITY SOURCE 03/08/2013 DRUG INGREDI/[id number]( SNOMED CT) LISINOPRIL COUGH [facility] 05/25/2012 DRUG INGREDI/[id number]( SNOMED CT) SIMVASTATIN OTHER: SEE C [facility] ENCOUNTERS ADMIT/DISCHARGE ACCOUNT NUMBER ADMITTING ENCOUNTER CLASS LOC ATION SOURCE 04/02/2025/ 5 [id number] [facility] 03/20/2025/ 5 [id number] [facility]MDAL [facility] 02/12/2025/ 5 [id number] [facility]HIRAM [facility] 02/03/2025/ 5 [id number] Amb[facility]DEVIN [facility] 01/27/2025/ 5 [id number] [facility]:WOPU [facility] 12/28/2024 [id number] [facility]ALVINA [facility] 12/23/2024/ 5 [id number] Amb[facility]:WOLB [facility] 12/23/2024/ 5 [id number] Amb[facility]:WOFM [facility] 12/18/2024/ 5 [id number] Amb[facility]:WOUC [facility] 10/05/2024/ 5 [id number] Amb[facility]:WOMR [facility] 10/03/2024/ 5 [id number] Amb[facility]:WOR2 [facility] 09/30/2024/ 5 [id number] [facility]:CFOR [facility] 09/19/2024/ 5 [id number] Amb[facility]:WOGS [facility] 08/26/2024/ 5 [id number] [facility]:WOLB [facility] 08/26/2024/ 5 [id number] [facility]:WOFM [facility] 08/17/2024/ 5 [id number] [facility]:MDAL [facility] 08/10/2024/ 5 [id number] [facility]WOLB [facility] 08/05/2024/ 5 [id number] [facility]:SLWS [facility] 07/29/2024/ 5 [id number] [facility]:WOPU [facility] 07/29/2024/ 5 [id number] Ambulatory [facility]:PLFHCW [facility] 07/29/2024/ 5 [id number] Amb[facility]:PLFHCW [facility] 05/17/2024/ 4 [id number] Amb[facility]:WOLB [facility] 04/22/2024 [id number] [facility]:WOLB [facility] 04/22/2024/ 4 [id number] [facility]:WOLB [facility] 04/13/2024/ 4 [id number] [facility]:WOR2 [facility] 04/13/2024/ 4 [id number] [facility]:WOL2 [facility] 04/13/2024/ 4 [id number] [facility]:WOPU [facility] PAYERS ENCOUNTER GUARANTOR PAYER SUBSCRIBER SOURCE 04/02/2025 Primary Insuranc e:MEDICARE A AND BPolicy Number: [id number] Date:5285-77-73Tdly Name:West JOAQUIN Macias ELADIODOB: [id number] [place] [address] [facility] 04/02/2025 Secondary Insura nce:ANTHEM MEDICARE SUPPLEMENTPolicy Number: [id number] Date:3672-06-81Pess Name:Adonay JOAQUIN Gilberto ELADIODOB: [id number] [place] [address] [facility] 03/20/2025 Primary Insuranc e:MEDICARE A AND BPolicy Number: [id number] Date:6365-33-95Objd Name:West JOAQUIN Macias SMARTDOB: [id number] [place] [address] [facility] 03/20/2025 Secondary Insura nce:ANTHEM MEDICARE SUPPLEMENTPolicy Number: [id number] Date:2502-70-24Ftgp Name:Adonay MENDEZB: [id number] [place] [address] [facility] 02/12/2025 Primary Insuranc e:MEDICARE A AND BPolicy Number: [id number] Date:1311-30-60Kkie Name:West Macias SMARTDOB: [id number] [facility] [address] [facility] 02/12/2025 Secondary Insura nce:ANTHEM MEDICARE SUPPLEMENTPolicy Number: [id number] Date:0327-02-24Wyhq Name:Adonay Macias SMARTDOB: [id number] [place] [address] [facility] 02/03/2025 Primary Insuranc e:MEDICARE A AND BPolicy Number: [id number] Date:6888-84-99Zugu Name:West Macias SMARTDOB: 5063-30-65GSS778 [place] [address] [facility] 02/03/2025 Secondary Insura nce:ANTHEM MEDICARE SUPPLEMENTPolicy Number: [id number] Date:4312-19-32Iokf Name:Adonay Macias SMARTDOB: 5621-14-63FYO135 [place] [address] [facility] 01/27/2025 Primary Insuranc e:MEDICARE A AND BPolicy Number: [id number] Date:7858-88-88Uezj Name:West Macias SMARTDOB: [id number] [place] [address] [facility] 01/27/2025 Secondary Insura nce:ANTHEM MEDICARE SUPPLEMENTPolicy Number: [id number] Date:7865-43-91Jeyr Name:Adonay Macias SMARTDOB: 8246-78-67UIP515 [place] [address] [facility] 12/28/2024 Primary Insuranc e:MEDICARE A AND BPolicy Number: [id number] Date:6082-51-32Aatq Name:West Macias SMARTDOB: [id number] [place] [address] [facility] 12/28/2024 Secondary Insura nce:ANTHEM MEDICARE SUPPLEMENTPolicy Number: [id number] Date:4376-34-22Qikg Name:Adonay Macias SMARTDOB: 4419-00-28IQP071 [place] [address] [facility] 12/23/2024 Primary Insuranc e:MEDICARE A AND BPolicy Number: [id number] Date:1551-43-76Pekn Name:West Macias SMARTDOB: [id number] [facility] [place] [address] [facility] 12/23/2024 Secondary Insura nce:ANTHEM MEDICARE SUPPLEMENTPolicy Number: [id number] Date:8795-95-36Akgk Name:Adonay Macias SMARTDOB: 8497-91-48HFY239 [place] [address] [facility] 12/23/2024 Primary Insuranc e:MEDICARE A AND BPolicy Number: [id number] Date:9761-49-83Rrnz Name:West Macias SMARTDOB: [id number] [place] [address] [facility] 12/23/2024 Secondary Insura nce:ANTHEM MEDICARE SUPPLEMENTPolicy Number: [id number] Date:8948-42-78Aemf Name:Adonay Macias SMARTDOB: [id number] [place] [address] [facility] 12/18/2024 Primary Insuranc e:MEDICARE A AND BPolicy Number: [id number] Date:8940-43-34Abpv Name:West Macias SMARTDOB: [id number] [facility] [place] [address] [facility] 12/18/2024 Secondary Insura nce:ANTHEM MEDICARE SUPPLEMENTPolicy Number: [id number] Date:1357-21-48Dqye Name:Adonay Macias SMARTDOB: 9646-18-01CZZ473 [place] [address] [facility] 10/05/2024 Primary Insuranc e:MEDICARE A AND BPolicy Number: [id number] Date:2187-52-53Lvql Name:West Macias SMARTDOB: 5725-91-00AIK834 [place] [address] [facility] 10/05/2024 Secondary Insura nce:ANTHEM MEDICARE SUPPLEMENTPolicy Number: [id number] Date:6253-55-68Bahi Name:Adonay Macias SMARTDOB: 9663-36-92QTP729 [place] [address] [facility] 10/03/2024 Primary Insuranc e:MEDICARE A AND BPolicy Number: [id number] Date:2237-97-50Xyhp Name:West Macias SMARTDOB: [id number] [place] [address] [facility] 10/03/2024 Secondary Insura nce:ANTHEM MEDICARE SUPPLEMENTPolicy Number: [id number] Date:7664-08-83Qzgw Name:Adonay Macias SMARTDOB: 9311-69-34VUE383 [place] [address] [facility] 09/30/2024 Primary Insuranc e:MEDICARE A AND BPolicy Number: [id number] Date:0687-34-18Pksj Name:West Macias SMARTDOB: 5354-64-83XAL976 [place] [address] [facility] 09/30/2024 Secondary Insura nce:ANTHEM MEDICARE SUPPLEMENTPolicy Number: [id number] Date:9758-33-19Hmbb Name:Adonay Macias SMARTDOB: [id number] [place] [address] [facility] 09/19/2024 Primary Insuranc e:MEDICARE A AND BPolicy Number: [id number] Date:9812-95-33Nvqy Name:West Macias SMARTDOB: 5269-31-57DBR655 [place] [address] [facility] 09/19/2024 Secondary Insura nce:ANTHEM MEDICARE SUPPLEMENTPolicy Number: [id number] Date:1513-49-29Qqbh Name:Adonay Macias SMARTDOB: [id number] [facility] [place] [address] [facility] 08/26/2024 Primary Insuranc e:MEDICARE A AND BPolicy Number: [id number] Date:1300-95-23Hnuw Name:West Macias SMARTDOB: 0854-75-22OAR770 [place] [address] [facility] 08/26/2024 Secondary Insura nce:ANTHEM MEDICARE SUPPLEMENTPolicy Number: [id number] Date:5429-02-16Gxpc Name:Adonay Macias SMARTDOB: 8174-17-47UGG419 [place] [address] [facility] 08/26/2024 Primary Insuranc e:MEDICARE A AND BPolicy Number: [id number] Date:5231-43-89Hijs Name:West Macias SMARTDOB: 4580-99-59JLU686 [place] [address] [facility] 08/26/2024 Secondary Insura nce:ANTHEM MEDICARE SUPPLEMENTPolicy Number: [id number] Date:3076-72-15Goba Name:Adonay Macias SMARTDOB: 0455-77-04BWY035 [place] [address] [facility] 08/17/2024 Primary Insuranc e:MEDICARE A AND BPolicy Number: [id number] Date:8298-33-73Pclt Name:West Macias SMARTDOB: 3125-92-24EZH805 [place] [address] [facility] 08/17/2024 Secondary Insura nce:ANTHEM MEDICARE SUPPLEMENTPolicy Number: [id number] Date:0019-05-85Jskk Name:Adonay Macias SMARTDOB: 6314-94-78MHV336 [place] [address] [facility] 08/10/2024 Primary Insuranc e:MEDICARE A AND BPolicy Number: [id number] Date:0773-13-14Zapk Name:West Macias SMARTDOB: 3325-04-55WKX174 [place] [address] [facility] 08/10/2024 Secondary Insura nce:ANTHEM MEDICARE SUPPLEMENTPolicy Number: [id number] Date:7194-12-70Cucb Name:Adonay Macias SMARTDOB: [id number] [facility] [place] [address] [facility] 08/05/2024 Primary Insuranc e:MEDICARE A AND BPolicy Number: [id number] Date:0846-84-55Glrs Name:West Macias SMARTDOB: 6485-78-30PMR475 [place] [address] [facility] 08/05/2024 Secondary Insura nce:ANTHEM MEDICARE SUPPLEMENTPolicy Number: [id number] Date:6366-41-88Wnnu Name:Adonay Macias SMARTDOB: 9151-05-01GHC125 [place] [address] [facility] 07/29/2024 Primary Insuranc e:MEDICARE A AND BPolicy Number: [id number] Date:6361-98-29Hgwj Name:West Macias SMARTDOB: 7770-33-50ZPB095 [place] [address] [facility] 07/29/2024 Secondary Insura nce:ANTHEM MEDICARE SUPPLEMENTPolicy Number: [id number] Date:8961-29-48Qsqy Name:Adonay Macias SMARTDOB: 8439-83-83ARW100 [place] [address] [facility] 07/29/2024 Primary Insuranc e:MEDICARE A AND BPolicy Number: [id number] Date:1950-78-76Bekq Name:West Macias SMARTDOB: 5815-82-78PIF424 [place] [address] [facility] 07/29/2024 Secondary Insura nce:ANTHEM MEDICARE SUPPLEMENTPolicy Number: [id number] Date:0099-07-00Ajvf Name:Adonay Macias SMARTDOB: 1172-69-84PXN013 [facility] [place] [address] [facility] 07/29/2024 Primary Insuranc e:MEDICARE A AND BPolicy Number: [id number] Date:3516-17-51Isaw Name:West Macias SMARTDOB: [id number] [facility] [place] [address] [facility] 07/29/2024 Secondary Insura nce:ANTHEM MEDICARE SUPPLEMENTPolicy Number: [id number] Date:6884-05-47Xfeh Name:Adonay Macias SMARTDOB: [id number] [facility] [address] [facility] 05/17/2024 Primary Insuranc e:MEDICARE A AND BPolicy Number: [id number] Date:8556-62-49Epdy Name:West Macias SMARTDOB: 0670-67-97ING168 [facility] [place] [address] [facility] 05/17/2024 Secondary Insura nce:ANTHEM MEDICARE SUPPLEMENTPolicy Number: [id number] Date:9303-18-84Snei Name:Adonay Macias SMARTDOB: 9030-63-83USW229 [facility] [place] [address] [facility] 04/22/2024 Primary Insuranc e:MEDICARE A AND BPolicy Number: [id number] Date:3792-85-17Jfoa Name:West Macias SMARTDOB: [id number] [facility] [place] [address] [facility] 04/22/2024 Secondary Insura nce:ANTHEM MEDICARE SUPPLEMENTPolicy Number: [id number] Date:4673-57-24Uozc Name:Adonay Macias SMARTDOB: 3640-68-77KHF132 [facility] [place] [address] [facility] 04/22/2024 Primary Insuranc e:MEDICARE A AND BPolicy Number: [id number] Date:1308-92-01Lbhw Name:West Macias SMARTDOB: 1696-35-66JDI649 [place] [address] [facility] 04/22/2024 Secondary Insura nce:ANTHEM MEDICARE SUPPLEMENTPolicy Number: [id number] Date:7855-28-48Xhlt Name:Adonay Macias SMARTDOB: [id number] [facility] [place] [address] [facility] 04/13/2024 Primary Insuranc e:MEDICARE A AND BPolicy Number: [id number] Date:1957-44-81Sqdy Name:West Macias SMARTDOB: 8922-75-05VYC144 [place] [address] [facility] 04/13/2024 Secondary Insura nce:ANTHEM MEDICARE SUPPLEMENTPolicy Number: [id number] Date:4680-58-46Tpyw Name:Adonay Macias SMARTDOB: 2637-89-09KVN652 [place] [address] [facility] 04/13/2024 Primary Insuranc e:MEDICARE A AND BPolicy Number: [id number] Date:5869-78-87Lznw Name:West Macias SMARTDOB: 7074-99-75OJD184 [place] [address] [facility] 04/13/2024 Secondary Insura nce:ANTHEM MEDICARE SUPPLEMENTPolicy Number: [id number] Date:9652-56-22Igjq Name:Adonay Macias SMARTDOB: 3969-08-80VCK249 [place] [address] [facility] 04/13/2024 Primary Insuranc e:MEDICARE A AND BPolicy Number: [id number] Date:7404-96-43Fhyv Name:West Macias SMARTDOB: 9903-86-27ANW537 [place] [address] [facility] 04/13/2024 Secondary Insura nce:MARCELLO MEDICARE SUPPLEMENTPolicy Number: [id number] Date:7499-63-88Rqel Name:Adonay CHINO: 1966-29-76SFC526 [place] [address] [facility]
[2025-04-03 12:28] LABS: PSA,Total - Annual Screen 0.26 ng/mL (0.02-4.00)
== END | disposition home or self-care (01) ==
LOC: LAB 09:54
PROVIDERS: PCP Student in an Organized Health Care Education/Training Program; Referring Provider Urology; Visit Provider Urology
DX: Z12.5 Encounter for screening for malignant neoplasm of prostate (principal)
CPT/HCPCS: 36415; 84153; G0103

== ENCOUNTER 2025-04-21 10:00 | Outpatient (CLI) | payer MEDICARE, BC, SELFPAY ==
[2023-10-21 16:26] VITALS: BMI 40.8
[2025-04-21 10:19] VITALS: BP 148/69; PULSE 77; RESP 16; TEMP 35.7; O2SAT 97; BMI 43.0
== END 2025-04-21 23:59 | disposition home or self-care (01) ==
LOC: MEDOUTP 10:00
PROVIDERS: PCP Student in an Organized Health Care Education/Training Program; Referring Provider Allergy & Immunology; Visit Provider Allergy & Immunology
DX: J45.50 Severe persistent asthma, uncomplicated (principal)
CPT/HCPCS: 96372; J2356

== ENCOUNTER 2025-05-19 09:48 | Outpatient (CLI) | payer MEDICARE, BC, SELFPAY ==
[2023-10-21 16:26] VITALS: BMI 40.8
[2025-05-19 10:15] VITALS: BP 148/59; PULSE 88; RESP 16; TEMP 36.1; O2SAT 97
== END 2025-05-19 23:59 | disposition home or self-care (01) ==
LOC: MEDOUTP 09:48
PROVIDERS: PCP Student in an Organized Health Care Education/Training Program; Referring Provider Allergy & Immunology; Visit Provider Allergy & Immunology
DX: J45.50 Severe persistent asthma, uncomplicated (principal)
CPT/HCPCS: 96372; J2356

== ENCOUNTER 2025-06-16 10:18 | Outpatient (CLI) | payer MEDICARE, BC, SELFPAY ==
[2023-10-21 16:26] VITALS: BMI 40.8
[2025-06-16 10:25] VITALS: BP 156/79; PULSE 67; RESP 16; TEMP 35.5; O2SAT 100; BMI 43.6
== END 2025-06-16 23:59 | disposition home or self-care (01) ==
LOC: MEDOUTP 10:18
PROVIDERS: PCP Student in an Organized Health Care Education/Training Program; Referring Provider Allergy & Immunology; Visit Provider Allergy & Immunology
DX: J45.50 Severe persistent asthma, uncomplicated (principal)
CPT/HCPCS: 96372; J2356

== ENCOUNTER 2025-06-29 19:05 | Emergency (ER) | payer MEDICARE, BC, SELFPAY ==
[2023-10-21 16:26] VITALS: BMI 40.8
[2025-06-29 19:07] VITALS: BP 136/64; PULSE 82; RESP 18; TEMP 36.8; O2SAT 97; BMI 43.9
[2025-06-29 19:25] VITALS: BP 136/64; PULSE 82; RESP 18; TEMP 36.8; O2SAT 97
--- OUTSIDE RECORDS SUMMARY | 2025-06-29 19:56 | XMS RPT_ITS | CCD ---
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 Justin Massey Primary Care Provider [phone] Dr. Justin Massey Referring Provider [phone] CHANTEL Fong Attending Provider CHANTEL Murcia Attending Provider Lissy Jackson SENIOR TEST ENGINEER, SENIOR TEST ENGINEERDave Liang Attending Provider Dr. Justin Massey Attending Provider [phone] CHANTEL Gerardo Attending Provider Dr. Justin Massey Primary Care Provider [phone] Dr. Justin Massey Referring Provider [phone] CHANTEL Fong Attending Provider Dr. Justin Massey Primary Care Provider [phone] Dr. Justin Massey Referring Provider [phone] Dr. Justin Massey Attending Provider [phone] CHANTEL Murcia Attending Provider Unavailab Dr. Justin Bustillos Primary Care Provider [phone] Dr. Justin Massey Referring Provider [phone] Dr. Fabio Theodore Attending Provider Dr. Art Ureña Primary Care Provider Dr. Justin Massey Primary Care Provider [phone] Dr. Justin Massey Attending Provider [phone] Dr. Justin Massey Referring Provider [phone] Dr. Fabio Theodore Referring Provider Dr. Justin Massey Primary Care Provider [phone] Dr. Justin Massey Referring Provider [phone] Dr. Art Ureña Attending Provider [phone] Dr. Art Ureña Referring Provider [phone] Dr. Fabio Theodore Attending Provider Dr. Fabio Theodore Referring Provider Dr. Art Ureña Primary Care Provider Dr. Art Ureña Attending Provider [phone] Dr. Art Ureña Referring Provider [phone] Sara GOLDEN, PA Ed Matias Attending Provider Dr. Kulwant Scott Attending Provider Art SENIOR TEST ENGINEER, SENIOR TEST ENGINEER-C Azul Attending Provider [phone] Art SENIOR TEST ENGINEER, SENIOR TEST ENGINEER-C Azul Other Provider Dr. Carlo Ramos Attending Provider Dr. Art Ureña Primary Care Provider Dr. Fabio Theodore Attending Provider Dr. Art Ureña Attending Provider Art SENIOR TEST ENGINEER, SENIOR TEST ENGINEER-C Azul Referring Provider Dr. Art Ureña Primary Care Provider Dr. Art Ureña Referring Provider [phone] Dr. Fabio Theodore Attending Provider Ladan Galarza Attending Provider Unavailable Dr. Zbigniew Arrington Attending Provider Dr. Zbigniew Arrington Admit Provider Dr. Zbginiew Arrington Other Provider Dr. Art Ureña Primary Care Provider Dr. Art Ureña Referring Provider [phone] Dr. Art Ureña Attending Provider [phone] Dr. Zbigniew Arrington Referring Provider CHANTEL Fong Attending Provider Dr. Art Ureña Primary Care Provider Dr. Kulwant Scott Attending Provider Dr. Art Ureña Referring Provider [phone] Art SENIOR TEST ENGINEER, SENIOR TEST ENGINEER-C Azul Attending Provider [phone] Art SENIOR TEST ENGINEER, SENIOR TEST ENGINEER-C Azul Referring Provider [phone] Art SENIOR TEST ENGINEER, SENIOR TEST ENGINEER-C Azul Other Provider Dr. Carlo Ramos Attending Provider Dr. Art Ureña Attending Provider [phone] Dr. Fabio Theodore Attending Provider Ladan Galarza Attending Provider Unavailable Dr. Zbigniew Arrington Attending Provider [phone] Zbigniew Arrington Referring Provider [phone] Zbigniew Arrington Admit Provider Dr. Zbigniew Arrington Other Provider CHANTEL Fong Attending Provider CHANTEL Davies Attending Provider Dr. Art Ureña Primary Care Provider Dr. Art Ureña Referring Provider [phone] Kyung SENIOR TEST ENGINEER, SENIOR TEST ENGINEER-C James Washington Attending Provider Dr. Art Ureña Primary Care Provider Dr. Art Ureña Primary Care Provider Dr. Art Ureña Referring Provider [phone] Dr. Fabio Theodore Attending Provider Dr. Art Ureña Attending Provider Dr. Art Ureña Primary Care Provider Ladan Galarza Attending Provider Unavailable Art SENIOR TEST ENGINEER, SENIOR TEST ENGINEER-C Azul Attending Provider Dr. Art Ureña Primary Care Provider Dr. Art Ureña Attending Provider Dr. Art Ureña Referring Provider Dr. Zbigniew Arrington Attending Provider Dr. Art Ureña Primary Care Provider Dr. Art Ureña Attending Provider Dr. Josiah Rushing Emergency Provider Dr. Jerman Vigil Admit Provider Dr. Jerman Vigil Referring Provider Dr. Jerman Vigil Other Provider Dr. Tere Mariee Attending Provider Dr. Tere Mariee Other Provider Dr. Pa Wilson Attending Provider Dr. Pa Wilson Other Provider Art Ureña MD Primary Care Provider Dr. Art Ureña Primary Care Provider Dr. Art Ureña Referring Provider Dr. Fabio Theodore Attending Provider Dr. Art Ureña Attending Provider Dr. Art Ureña Referring Provider Dr. Fabio Theodore Attending Provider Dr. Art Ureña Attending Provider Dr. Art Ureña Primary Care Provider Dr. Pierce Huff Attending Provider Dr. Art Ureña Attending Provider Dr. Art Ureña Referring Provider Roof SENIOR TEST ENGINEER, SENIOR TEST ENGINEER-C James Washington Attending Provider Dr. Art Ureña Primary Care Provider Dr. Art Ureña Referring Provider Dr. Art Ureña Primary Care Provider Dr. Art Ureña Referring Provider Roof SENIOR TEST ENGINEER, SENIOR TEST ENGINEER-C James Washington Attending Provider Dr. Art Ureña Primary Care Provider Dr. Art Ureña Attending Provider Art Ureña MD Primary Care Provider Wale Floyd DO Primary Care Provider Maldonado LABEL TACKER.CAKE ICER, [place] Taylor Unavailable Tiarra LABEL TACKER.CAKE ICER, Fang Unavailable Dr. Art Ureña MD Primary Care Provider Elena Dior MD Attending Provider Elena Dior MD Referring Provider Dr. Shabana Ramos MD Attending Provider Dr. Shabana Ramos MD Referring Provider Joel LABEL TACKER.CAKE ICER, [place] Taylor Unavailable Dr. Art Ureña MD Primary Care Provider Elena Dior MD Attending Provider Elena Dior MD Referring Provider Dr. Art Ureña MD Referring Provider Dr. Zbigniew Arrington MD Attending Provider Dr. Wale Floyd DO Primary Care Provider Sherri LABEL TACKER.CAKE ICER, Celena Shakeel Unavailable Niranjan DEAN, Dr. Sawyer Primary Care Provider [phone] Jean DEAN, Elena Attending Provider Jean DEAN, Elena Referring Provider Dr. Zbigniew Arrington MD Referring Provider [phone] Alex SENIOR TEST ENGINEER-CAna Attending Provider [phone] Niranjan DEAN, Dr. Sawyer Primary Care Provider [phone] Jean DEAN, Elena Attending Provider Elena Dior MD Referring Provider Roof SENIOR TEST ENGINEER-C, James Washington Attending Provider Roof SENIOR TEST ENGINEER-C, James Washington Referring Provider ART UREÑA Primary Care Unavailable DIOR, ELENA A Attending Unavailable FLOYD, WALE L Primary Care Unavailable SPENCER VILLATORO Attending Unavailable FLOYD, WALE L Primary Care Unavailable ART UREÑA Primary Care Unavailable DIOR, ELENA A Referring Unavailable ART UREÑA Primary Care Unavailable SHABANA RAMOS Attending Unavailable ART UREÑA Primary Care Unavailable FLOYD, WALE L Primary Care Unavailable BRENDA CHAPARRO Attending Unavailable DIOR, ELENA A Referring Unavailable FLOYD, WALE L Primary Care Unavailable DB FOWLER Attending Unavailable FLOYD, WALE L Primary Care Unavailable MARETH, AURELIA L Attending Unavailable FLOYD, WALE L Primary Care Unavailable HARI ADEN Referring Unavailable MARETH, AURELIA L Referring Unavailable FLOYD, WALE L Primary Care Unavailable MARETH, AURELIA L Referring Unavailable FLOYD, WALE L Primary Care Unavailable TAYLOR PIERCE Attending Unavailable ART UREÑA Primary Care Unavailable ART UREÑA Primary Care Unavailable DIOR, ELENA A Attending Unavailable ART UREÑA M Primary Care Unavailable TIARRA, FANG Attending Unavailable ART UREÑA M Primary Care Unavailable TIARRA, FANG Referring Unavailable FLOYD, WALE L Primary Care Unavailable TIARRA, FANG Referring Unavailable FLOYD, WALE L Primary Care Unavailable KEIKO HARI P Attending Unavailable [facility] Referring Unav ailable NIRANJAN, ART M Primary Care Unavailable BRENDA CHAPARRO Attending Unavailable VERONICA RAMOSZAMONSERRAT PETERS Referring Unavailable NIRANJAN, ART M Primary Care Unavailable CLICK, BRENDA M Referring Unavailable NIRANJAN, ART M Primary Care Unavailable NIRANJAN, ART M Primary Care Unavailable CLICK, BRENDA M Referring Unavailable FLOYDWALE L Primary Care Unavailable SHERRI, CELENA SHAKEEL Attending Unavailable FLOYD WALE L Primary Care Unavailable SHERRI, CELENA SHAKEEL Referring Unavailable FLOYD, WALE L Primary Care Unavailable SHERRI, CELENA SHAKEEL Referring Unavailable TRICIA NUÑEZ Attending Unavailable FLOYD, WALE L Primary Care Unavailable DIOR, ELENA A Referring Unavailable ART UREÑA Primary Care Unavailable Dr. Wale Floyd DO Primary Care Physician Dr. Zbigniew Arrington MD Attending Physician [phone]([facility])[phone] Alex SANCHES-CAna Attending Physician 1([facility])[phone] Elena Dior MD Attending Physician 1([facility])[phone] Elena Dior MD Referring Provider 1([facility])[phone] Roof SENIOR TEST ENGINEER-C, James Washington Attending Physician Wellington DEAN, Dr. Chris Gonzalez Attending Physician Dr. Chris Paris MD Referring Provider Dr. Wale Floyd DO Primary Care Physician Elena Dior MD Attending Physician 1([facility])[phone] Elena Dior MD Referring Provider 1([facility])[phone] Roof SENIOR TEST ENGINEER-C, James Washington Attending Physician [phone] Roof SENIOR TEST ENGINEER-C, James Washington Referring Provider 1([facility])[phone] Wellington DEAN, Dr. Chris Gonzalez Attending Physician Dr. Chris Paris MD Referring Provider Wale Floyd Primary Care Unavailable Elena Dior Referring Unavailable Elena Dior Attending Unavailable Elena Dior Referring Unavailable Floyd, Wale Primary Care Unavailable DiorElena Attending Unavailable Floyd, Wale Primary Care Unavailable Zbigniew Arrington Attending Unavailable Diro, Elena Attending Unavailable Dior, Elena Referring Unavailable Floyd, Wale Primary Care Unavailable Floyd, Wale Primary Care Unavailable Nury, Floris Referring Unavailable Nury, Zbigniew Attending Unavailable Wellington, Lul Referring Unavailable Wellington, Lul Attending Unavailable Floyd, Wale Primary Care Unavailable Niranjan, Art Primary Care Unavailable Shabana Ramos Referring Unavailable BrownVeronicaShabana Attending Unavailable Niranjan, Art Primary Care Unavailable Dior, Elena Attending Unavailable Dior, Elena Referring Unavailable Floyd, Wale Primary Care Unavailable Ana Johnson NP Attending Unavailable Niranjan, Art Referring Unavailable Floyd, Wale Primary Care Unavailable Nury, Zbigniew Attending Unavailable Niranjan, Art Primary Care Unavailable Dior, Elena Attending Unavailable Dior, Elena Referring Unavailable Niranjan, Art Primary Care Unavailable Dior, Elena Attending Unavailable Dior, Elena Referring Unavailable Niranjan, Art Primary Care Unavailable Dior, Elena Attending Unavailable Dior, Elena Referring Unavailable Dior, Elena Attending Unavailable Dior, Elena Referring Unavailable Floyd, Wale Primary Care Unavailable Floyd, Wale Primary Care Unavailable Dior, Elena Attending Unavailable Dior, Elena Referring Unavailable Dior, Elena Attending Unavailable Dior, Elena Referring Unavailable Niranjan, Art Primary Care Unavailable Floyd, Wale Primary Care Unavailable Dior, Elena Attending Unavailable Dior, Elena Referring Unavailable Floyd, Wale Primary Care Unavailable Roof SENIOR TEST ENGINEER, James H Referring Unavailable Roof SENIOR TEST ENGINEER, James H Attending Unavailable Niranjan, Art Primary Care Unavailable Dior, Elena Attending Unavailable Dior, Elena Referring Unavailable Dior, Elena Attending Unavailable Dior, Elean Referring Unavailable Niranjan, Art Primary Care Unavailable Floyd, Wale Primary Care Unavailable Dior, Elena Attending Unavailable Dior, Elena Referring Unavailable Allergies Allergy Classification Reported Allergen(s) Allergy Type Date of Onset Reaction(s) Facility (20 sources) lisinopril; Translations: [LISINOPRIL] Drug Allergy 3 Cough [facility] Repository (20 sources) simvastatin; Translations: [SIMVASTATIN] Drug Allergy 2 Other: See Comments [facility] Repository Medications Current Medications Medication Drug Class(es) Dates Sig (Normalized) Sig (Original) [id number] actuat albuterol 0.09 mg/actuat metered dose inhaler (20 sources) beta2-Adrenergic Agonist Start: 05-27-2023 End: 04-13-2024 take 2 puff(s) by inhalation every six hours as needed for wheezing albuterol HFA (PROAIR HFA) 90 mcg/actuation inhaler Inhale 2 Puffs as instructed every 6 hours as needed for wheezing/shortnes s of breath. 3 Each 3 04/13/2024 Active Start: 09-24-2022 take 2.5 mg by inhal ation twice daily Albuterol Sulfate Active 2.5 MG INHALATION .COMPLEX 180 September 24, 2022 12:40pm 2.5 mg inhaled BID; J45.9 Asthma Start: 09-24-2022 take 2.5 mg by inhal ation twice daily Albuterol Sulfate Active 2.5 MG INHALATION .COMPLEX 180 September 24, 2022 1:40pm 2.5 mg inhaled BID; J45.9 Asthma Start: 09-01-2022 End: 09-24-2022 take 2.5 mg by inhalation twice daily Albuterol Sulfate 2.5 mg /3 mL (0.083 %) solution for nebulization Active 2.5 mg INHALATION .COMPLEX 180 September 24, 2022 12:40pm Asthma Unspecified asthma, uncomplicated Sob &/Or Wheezing 2.5 mg inhaled BID; J45.9 Asthma Complies with drug therapy Start: 02-26-2021 End: 07-17-2022 Albuterol Sulfate (Ventolin Hfa) 90 mcg/actuation HFA aerosol inhaler Discontinued 2 NMA INHALATION Q4H as needed for shortness of breath or wheezing 18 July 16, 2022 4:57pm July 17, 2022 5:11pm Start: 02-26-2021 End: 07-17-2022 take 1 puff(s) by inhalation every four hours Albuterol Sulfate (Ventolin Hfa) 90 mcg/actuation HFA aerosol inhaler Discontinued 2 PUFF INHALATION Q4H July 16, 2022 5:57pm July 17, 2022 6:11pm Start: 01-17-2021 End: 01-17-2021 albuterol sulfate Discontinu ed 2.5 MG continuous nebulization ONCE January 171 8:19am January 17, 2021 9:28am Start: 01-17-2021 End: 09-01-2022 take 2.5 mg by inhalation every four hours as needed for wheezing Albuterol Sulfate 2.5 mg /3 mL (0.083 %) solution for nebulization Discontinued 2.5 mg INHALATION Q4H as needed for Sob &/Or Wheezing 180 3 July 17, 2022 5:11pm September 01, 2022 10:29am Asthma Unspecified asthma, uncomplicated J45.9 Asthma Start: 12-24-2020 End: 02-26-2021 Albuterol Discontinued 90 MC G INHALATION NEEDED December 24, 2020 12:51pm February 26, 2021 11:56am Start: 12-24-2020 End: 02-26-2021 Albuterol Discontinued 90 MC G INHALATION NEEDED December 23, 2020 11:00pm February 26, 2021 10:56am Start: 12-24-2020 End: 02-26-2021 Albuterol Discontinued 90 MC G INHALATION NEEDED December 24, 2020 12:00am February 26, 2021 11:56am Start: 02-23-2020 End: 06-25-2020 Albuterol Sulfate 90 mcg/act uation HFA aerosol inhaler Discontinued 2 NMA INHALATION Q4H as needed for shortness of breath or wheezing 3 1 February 23, 2020 1:02pm June 25, 2020 1:01pm Start: 02-23-2020 End: 06-25-2020 take 1 puff(s) by inhalation every four hours Albuterol Sulfate Discontinued 2 PUFF INHALATION Q4H 3 February 23, 2020 2:02pm June 25, 2020 2:01pm Start: 05-18-2016 End: 02-23-2020 Albuterol Sulfate 1 INHALER inhaler Discontinued 2 NMA INHALATION EVERY 6 HOURS NEEDED as needed for Asthma May 18, 2016 12:00am February 23, 2020 1:03pm Start: 05-18-2016 End: 02-23-2020 take 1 puff(s) by inhalation every six hours as needed Albuterol Sulfate Discontinued 2 PUFF INHALATION EVERY 6 HOURS NEEDED May 18, 2016 1:00am February 23, 2020 2:03pm End: 2023 albuterol HFA (PROAIR HFA) 9 0 mcg/actuation inhaler Inhale 2 Puffs as instructed. 0 05/27/2023 Discontinued Comment on above: Inhale 2 Puffs as in structed. Inhale 2 Puffs as in structed every 6 hours as needed for wheezing/shortness of breath. Albuterol Sulfate 2.5 mg /3 mL (0.083 %) solution for nebulization (5 sources) Start: 09-25-19 take 2.5 mg by inhalation twice daily Albuterol Sulfate 2.5 mg /3 mL (0.083 %) solution for nebulization Active 2.5 mg INHALATION .COMPLEX 180 September 24, 2022 1:40pm Asthma Unspecified asthma, uncomplicated Sob &/Or Wheezing 2.5 mg inhaled BID; J45.9 Asthma Start: 09-24-2022 take 2.5 mg by inhal ation twice daily Albuterol Sulfate 2.5 mg /3 mL (0.083 %) solution for nebulization Active 2.5 mg INHALATION .COMPLEX 180 September 24, 2022 1:40pm 2.5 mg inhaled BID; J45.9 Asthma Start: 09-24-2022 take 2.5 mg by inhal ation twice daily Albuterol Sulfate 2.5 mg /3 mL (0.083 %) solution for nebulization Active 2.5 mg INHALATION .COMPLEX 180 September 24, 2022 12:40pm 2.5 mg inhaled BID; J45.9 Asthma ALPRAZolam 0.25 mg oral tablet (4 sources) Benzodiazepine Start: 10-04-2024 End: 11-01-2024 ALPRAZolam (XANAX) 0.25 mg tablet Indications: Situational anxiety Take 1 tablet by mouth 30 minutes prior to MRI, may repeat in 15-20 minutes if necessary. 2 tablet 10/04/2024 11/01/2024 Active aspirin 81 mg chewable tablet (20 sources) Platelet Aggregation Inhibitor, Nonsteroidal Anti-inflammatory Drug Start: 08-15-2022 End: 02-08-2024 take 1 tablet by mouth every other day Aspirin 81 mg Tablet,Chewable Active 81 mg PO .every other day February 07, 2024 11:00pm Complies with drug therapy Start: 02-22-2020 End: 06-25-2020 take 1 tablet by mouth every other day Aspirin 81 mg tablet,chewable Discontinued 81 mg PO .QOD February 22, 2020 2:15pm June 25, 2020 1:02pm Start: 06-23-2016 End: 08-26-2024 Aspirin (Adult Low Dose Aspi rin) 81 mg tablet,delayed release (DR/EC) Discontinued 81 mg PO DAILY August 08, 2022 12:00am August 08, 2022 3:58pm Start: 05-18-2016 End: 02-22-2020 take 1 tablet by mouth once daily Aspirin 81 MG tablet,chewable Discontinued 81 mg PO DAILY May 18, 2016 12:00am February 22, 2020 2:19pm Comment on above: Take 1 tablet by giles once daily. B.coagul,subtilis/in ulin/vit C (CULTURELLE PROBIOTIC-PREBIOTIC ORAL) (20 sources) B.coagul,subtili s/i nulin/vit C (CULTURELLE PROBIOTIC-PREBIOTIC ORAL) Take by mouth. Active Calcium Carbonate (20 sources) calcium carbonat e (CALCIUM 500 ORAL) Take by mouth. Active cephalexin 500 mg oral capsule (1 source) Cephalosporin Antibacterial Start: End: take 1 capsule by mouth four times daily cephALEXin (KEFLEX) 500 mg capsule Indications: Superficial incisional surgical site infection Take 1 capsule by mouth four times daily for 5 days. 20 capsule 02/12/2025 02/17/2025 Active CPAP/BIPAP/OTHER (20 sources) Start: End: CPAP/BIPAP/OTHER Indications: CARMELLA on CPAP CPAP 16 DME [facility] 1 Each 08/05/2024 12/21/2051 Active doxycycline hyclate 100 mg oral tablet (20 sources) Tetracycline-class Drug Start: take 1 tablet by mouth twice daily Doxycycline Hyclate 100 mg tablet Active 100 mg PO TWICE A DAY February 23, 2025 11:00pm Complies with drug therapy Start: 04-15-2024 End: 07-29-2024 take 1 tablet by mouth twice daily doxycycline (VIBRA-TABS) 100 mg tablet Take 1 tablet by mouth two times a day. 14 tablet 04/15/2024 07/29/2024 Discontinued Start: 01-25-2022 End: 03-19-2022 take 1 capsule by mouth twice daily Doxycycline Hyclate 100 mg capsule Discontinued 100 mg PO TWICE A DAY 20 10 0 January 24, 2022 11:00pm March 19, 2022 12:08pm Start: 05-23-2020 End: 06-06-2020 take 1 tablet by mouth twice daily Doxycycline Hyclate 100 mg tablet Discontinued 100 mg PO TWICE A DAY 28 14 0 May 23, 2020 12:00am June 05, 2020 12:00am June 06, 2020 12:02am fluticasone propionate 0.05 mg/actuat metered dose nasal spray (20 sources) Corticosteroid Start: 02-03-2025 End: 02-03-2025 take 1 spray(s) nasal route once daily fluticasone (FLONASE ALLERGY RELIEF) 50 mcg/actuation nasal spray Use 1 spray in each nostril once daily. 3 each 2 02/03/2025 Active Start: 03-16-2023 End: 09-10-2023 Fluticasone Propionate 50 mcg/actuation spray,suspension Active 2 NMA INTRANASAL DAILY 3 September 10, 2023 1:07pm Complies with drug therapy Start: 03-16-2023 End: 09-10-2023 Fluticasone Propionate Activ e 2 SPRAY INTRANASAL DAILY September 10, 2023 2:07pm Start: 07-19-2019 End: 01-18-2021 Fluticasone Propionate 50 mcg/actuation spray,suspension Discontinued 2 NMA INTRANASAL DAILY 54.6 3 January 17, 2021 2:59pm January 18, 2021 10:17am Start: 07-19-2019 End: 01-18-2021 Fluticasone Propionate Disco ntinued 2 SPRAY INTRANASAL DAILY 54.6 January 17, 2021 3:59pm January 18, 2021 11:17am Start: 11-14-2018 End: 01-16-2023 fluticasone (FLOVENT HFA) 11 0 mcg/actuation inhaler USE 2 INHALATIONS BY MOUTH DIRECTED 2 TIMES DAILY VIA SPACER THEN RINSE & GARGLE MOUTH WITH WATER 3 Inhaler 1 11/14/2018 01/16/2023 Discontinued Start: 08-16-2018 End: 01-16-2023 take 2 spray(s) nasal route once daily fluticasone (FLONASE) 50 mcg/actuation nasal spray Use 2 Sprays in each nostril once daily. 3 Bottle 1 08/16/2018 01/16/2023 Discontinued Start: 05-18-2016 End: 05-30-2019 Fluticasone Propionate 1 INH ALER inhaler Discontinued 2 NMA INHALATION TWICE A DAY May 18, 2016 12:00am May 30, 2019 1:21pm Start: 05-18-2016 End: 05-30-2019 Fluticasone Propionate 1 SPR AY spray,suspension Discontinued 2 NMA NASAL DAILY May 18, 2016 12:00am May 30, 2019 12:43pm Start: 05-18-2016 End: 05-30-2019 take 1 puff(s) by inhalation twice daily Fluticasone Propionate Discontinued 2 PUFF INHALATION TWICE A DAY May 18, 2016 1:00am May 30, 2019 2:21pm Start: 05-18-2016 End: 05-30-2019 Fluticasone Propionate Disco ntinued 2 SPRAY NASAL DAILY May 18, 2016 1:00am May 30, 2019 1:43pm Comment on above: Use 2 Sprays in each nostril once daily. USE 2 INHALATIONS BY MOUTH DIRECTED 2 TIMES DAILY VIA SPACER THEN RINSE & GARGLE MOUTH WITH WATER Fluticasone Propion-Salmeterol (20 sources) Corticosteroid, beta2-Adrenergic Agonist Start: 08-23-2024 Fluticasone Propion-Salmeterol (Advair Hfa) 230-21 mcg/actuation HFA aerosol inhaler Active 2 NMA INHALATION Q12H 3 August 23, 2024 1:05pm Complies with drug therapy Start: 08-23-2024 Start: 08-23-2024 Fluticasone Pr opion-Salmeterol (Advair Hfa) 230-21 mcg/actuation HFA aerosol inhaler Active 2 NMA INHALATION Q12H 3 August 23, 2024 2:05pm Start: 08-23-2024 Fluticasone Pr opion-Salmeterol (Advair Hfa) 230-21 mcg/actuation HFA aerosol inhaler Active 2 NMA INHALATION Q12H 3 August 23, 2024 2:05pm Start: 08-23-2024 Fluticasone Pr opion-Salmeterol (Advair Hfa) 230-21 mcg/actuation HFA aerosol inhaler Active 2 NMA INHALATION Q12H 3 August 23, 2024 1:05pm Start: 08-24-2023 End: 08-23-2024 Fluticasone Propion-Salmeter ol (Advair Hfa) 230-21 mcg/actuation HFA aerosol inhaler Discontinued 2 NMA INHALATION Q12H 3 3 August 24, 2023 10:34am August 23, 2024 1:05pm Start: 08-24-2023 End: 08-23-2024 Fluticasone Propion-Salmeter ol (Advair Hfa) 230-21 mcg/actuation HFA aerosol inhaler Discontinued 2 NMA INHALATION Q12H 3 August 24, 2023 11:34am August 23, 2024 2:05pm Start: 08-24-2023 End: 08-23-2024 Fluticasone Propion-Salmeter ol (Advair Hfa) 230-21 mcg/actuation HFA aerosol inhaler Discontinued 2 NMA INHALATION Q12H 3 August 24, 2023 11:34am August 23, 2024 2:05pm Start: 08-24-2023 End: 08-23-2024 Fluticasone Propion-Salmeter ol (Advair Hfa) 230-21 mcg/actuation HFA aerosol inhaler Discontinued 2 NMA INHALATION Q12H 3 August 24, 2023 10:34am August 23, 2024 1:05pm Start: 08-24-2023 take 1 puff(s) by in halation every twelve hours Fluticasone Propion-Salmeterol (Advair Hfa) 230-21 mcg/actuation HFA aerosol inhaler Active 2 PUFF INHALATION Q12H 3 August 24, 2023 11:34am Start: 08-24-2023 take 1 puff(s) by in halation every twelve hours Fluticasone Propion-Salmeterol (Advair Hfa) 230-21 mcg/actuation HFA aerosol inhaler Active 2 PUFF INHALATION Q12H 3 August 24, 2023 10:34am Start: 07-16-2022 End: 08-24-2023 Fluticasone Propion-Salmeter ol (Advair Hfa) 230-21 mcg/actuation HFA aerosol inhaler Discontinued 2 NMA INHALATION Q12H 3 3 July 16, 2022 4:57pm August 24, 2023 10:34am Start: 07-16-2022 End: 08-24-2023 Fluticasone Propion-Salmeter ol (Advair Hfa) 230-21 mcg/actuation HFA aerosol inhaler Discontinued 2 NMA INHALATION Q12H 3 July 16, 2022 5:57pm August 24, 2023 11:34am Start: 07-16-2022 End: 08-24-2023 Fluticasone Propion-Salmeter ol (Advair Hfa) 230-21 mcg/actuation HFA aerosol inhaler Discontinued 2 NMA INHALATION Q12H 3 July 16, 2022 5:57pm August 24, 2023 11:34am Start: 07-16-2022 End: 08-24-2023 Fluticasone Propion-Salmeter ol (Advair Hfa) 230-21 mcg/actuation HFA aerosol inhaler Discontinued 2 NMA INHALATION Q12H 3 July 16, 2022 4:57pm August 24, 2023 10:34am Start: 07-16-2022 End: 08-24-2023 take 1 puff(s) by inhalation every twelve hours Fluticasone Propion-Salmeterol (Advair Hfa) 230-21 mcg/actuation HFA aerosol inhaler Discontinued 2 PUFF INHALATION Q12H 3 July 16, 2022 5:57pm August 24, 2023 11:34am Start: 07-16-2022 End: 08-24-2023 take 1 puff(s) by inhalation every twelve hours Fluticasone Propion-Salmeterol (Advair Hfa) 230-21 mcg/actuation HFA aerosol inhaler Discontinued 2 PUFF INHALATION Q12H 3 July 16, 2022 4:57pm August 24, 2023 10:34am Start: 07-16-2022 take 1 puff(s) by in halation every twelve hours Fluticasone Propion-Salmeterol (Advair Hfa) 230-21 mcg/actuation HFA aerosol inhaler Active 2 PUFF INHALATION Q12H 3 July 16, 2022 5:57pm Start: 07-16-2022 take 1 puff(s) by in halation every twelve hours Fluticasone Propion-Salmeterol (Advair Hfa) 230-21 mcg/actuation HFA aerosol inhaler Active 2 PUFF INHALATION Q12H 3 July 16, 2022 4:57pm Start: 03-25-2022 End: 07-16-2022 Fluticasone Propion-Salmeter ol (Advair Hfa) 230-21 mcg/actuation HFA aerosol inhaler Discontinued 2 NMA INHALATION Q12H 3 3 March 25, 2022 2:30pm July 16, 2022 4:58pm Start: 03-25-2022 End: 07-16-2022 Fluticasone Propion-Salmeter ol (Advair Hfa) 230-21 mcg/actuation HFA aerosol inhaler Discontinued 2 NMA INHALATION Q12H 3 3 March 25, 2022 3:30pm July 16, 2022 5:58pm Start: 03-25-2022 End: 07-16-2022 Fluticasone Propion-Salmeter ol (Advair Hfa) 230-21 mcg/actuation HFA aerosol inhaler Discontinued 2 NMA INHALATION Q12H 3 March 25, 2022 3:30pm July 16, 2022 5:58pm Start: 03-25-2022 End: 07-16-2022 Fluticasone Propion-Salmeter ol (Advair Hfa) 230-21 mcg/actuation HFA aerosol inhaler Discontinued 2 NMA INHALATION Q12H 3 March 25, 2022 2:30pm July 16, 2022 4:58pm Start: 03-25-2022 End: 07-16-2022 take 1 puff(s) by inhalation every twelve hours Fluticasone Propion-Salmeterol (Advair Hfa) 230-21 mcg/actuation HFA aerosol inhaler Discontinued 2 PUFF INHALATION Q12H 3 March 25, 2022 3:30pm July 16, 2022 5:58pm Start: 03-25-2022 End: 07-16-2022 take 1 puff(s) by inhalation every twelve hours Fluticasone Propion-Salmeterol (Advair Hfa) 230-21 mcg/actuation HFA aerosol inhaler Discontinued 2 PUFF INHALATION Q12H 3 March 25, 2022 2:30pm July 16, 2022 4:58pm Start: 03-25-2022 take 1 puff(s) by in halation every twelve hours Fluticasone Propion-Salmeterol (Advair Hfa) 230-21 mcg/actuation HFA aerosol inhaler Active 2 PUFF INHALATION Q12H 3 March 25, 2022 2:30pm Start: 03-25-2022 take 1 puff(s) by in halation every twelve hours Fluticasone Propion-Salmeterol (Advair Hfa) 230-21 mcg/actuation HFA aerosol inhaler Active 2 PUFF INHALATION Q12H 3 March 25, 2022 3:30pm Start: 01-02-2022 End: 03-25-2022 Fluticasone Propion-Salmeter ol (Advair Hfa) 230-21 mcg/actuation HFA aerosol inhaler Discontinued 2 NMA INHALATION Q12H 36 0 January 02, 2022 12:23pm March 25, 2022 2:31pm Start: 01-02-2022 End: 03-25-2022 Fluticasone Propion-Salmeter ol (Advair Hfa) 230-21 mcg/actuation HFA aerosol inhaler Discontinued 2 NMA INHALATION Q12H 36 0 January 02, 2022 1:23pm March 25, 2022 3:31pm Start: 01-02-2022 End: 03-25-2022 Fluticasone Propion-Salmeter ol (Advair Hfa) 230-21 mcg/actuation HFA aerosol inhaler Discontinued 2 NMA INHALATION Q12H 36 January 02, 2022 1:23pm March 25, 2022 3:31pm Start: 01-02-2022 End: 03-25-2022 Fluticasone Propion-Salmeter ol (Advair Hfa) 230-21 mcg/actuation HFA aerosol inhaler Discontinued 2 NMA INHALATION Q12H 36 January 02, 2022 12:23pm March 25, 2022 2:31pm Start: 01-02-2022 End: 03-25-2022 take 1 puff(s) by inhalation every twelve hours Fluticasone Propion-Salmeterol (Advair Hfa) 230-21 mcg/actuation HFA aerosol inhaler Discontinued 2 PUFF INHALATION Q12H 36 January 02, 2022 12:23pm March 25, 2022 2:31pm Start: 01-02-2022 End: 03-25-2022 take 1 puff(s) by inhalation every twelve hours Fluticasone Propion-Salmeterol (Advair Hfa) 230-21 mcg/actuation HFA aerosol inhaler Discontinued 2 PUFF INHALATION Q12H 36 January 02, 2022 1:23pm March 25, 2022 3:31pm Start: 01-02-2022 take 1 puff(s) by in halation every twelve hours Fluticasone Propion-Salmeterol (Advair Hfa) 230-21 mcg/actuation HFA aerosol inhaler Active 2 PUFF INHALATION Q12H 36 January 02, 2022 1:23pm Start: 12-31-2021 End: 01-02-2022 Fluticasone Propion-Salmeter ol (Advair Hfa) 230-21 mcg/actuation HFA aerosol inhaler Discontinued 2 NMA INHALATION Q12H 12 0 December 31, 2021 4:18pm January 02, 2022 12:24pm Start: 12-31-2021 End: 01-02-2022 Fluticasone Propion-Salmeter ol (Advair Hfa) 230-21 mcg/actuation HFA aerosol inhaler Discontinued 2 NMA INHALATION Q12H 12 0 December 31, 2021 5:18pm January 02, 2022 1:24pm Start: 12-31-2021 End: 01-02-2022 Fluticasone Propion-Salmeter ol (Advair Hfa) 230-21 mcg/actuation HFA aerosol inhaler Discontinued 2 NMA INHALATION Q12H December 31, 2021 5:18pm January 02, 2022 1:24pm Start: 12-31-2021 End: 01-02-2022 Fluticasone Propion-Salmeter ol (Advair Hfa) 230-21 mcg/actuation HFA aerosol inhaler Discontinued 2 NMA INHALATION Q12H December 31, 2021 4:18pm January 02, 2022 12:24pm Start: 12-31-2021 End: 01-02-2022 take 1 puff(s) by inhalation every twelve hours Fluticasone Propion-Salmeterol (Advair Hfa) 230-21 mcg/actuation HFA aerosol inhaler Discontinued 2 PUFF INHALATION Q12H December 31, 2021 4:18pm January 02, 2022 12:24pm Start: 12-31-2021 End: 01-02-2022 take 1 puff(s) by inhalation every twelve hours Fluticasone Propion-Salmeterol (Advair Hfa) 230-21 mcg/actuation HFA aerosol inhaler Discontinued 2 PUFF INHALATION Q12H December 31, 2021 5:18pm January 02, 2022 1:24pm Start: 09-09-2021 take 1 puff(s) by in halation every twelve hours Fluticasone Propion-Salmeterol (Advair Hfa) 230-21 mcg/actuation HFA aerosol inhaler Active 2 PUFF INHALATION Q12H September 09, 2021 4:11pm Start: 09-09-2021 End: 12-31-2021 Fluticasone Propion-Salmeter ol (Advair Hfa) 230-21 mcg/actuation HFA aerosol inhaler Discontinued 2 NMA INHALATION Q12H 12 September 09, 2021 12:00am December 31, 2021 4:18pm Start: 09-09-2021 End: 12-31-2021 Fluticasone Propion-Salmeter ol (Advair Hfa) 230-21 mcg/actuation HFA aerosol inhaler Discontinued 2 NMA INHALATION Q12H 12 September 09, 2021 1:00am December 31, 2021 5:18pm Start: 09-09-2021 End: 12-31-2021 Fluticasone Propion-Salmeter ol (Advair Hfa) 230-21 mcg/actuation HFA aerosol inhaler Discontinued 2 NMA INHALATION Q12H September 09, 2021 1:00am December 31, 2021 5:18pm Start: 09-09-2021 End: 12-31-2021 Fluticasone Propion-Salmeter ol (Advair Hfa) 230-21 mcg/actuation HFA aerosol inhaler Discontinued 2 NMA INHALATION Q12H September 09, 2021 12:00am December 31, 2021 4:18pm Start: 09-09-2021 End: 12-31-2021 take 1 puff(s) by inhalation every twelve hours Fluticasone Propion-Salmeterol (Advair Hfa) 230-21 mcg/actuation HFA aerosol inhaler Discontinued 2 PUFF INHALATION Q12H September 09, 2021 12:00am December 31, 2021 4:18pm Start: 09-09-2021 End: 12-31-2021 take 1 puff(s) by inhalation every twelve hours Fluticasone Propion-Salmeterol (Advair Hfa) 230-21 mcg/actuation HFA aerosol inhaler Discontinued 2 PUFF INHALATION Q12H September 09, 2021 1:00am December 31, 2021 5:18pm Start: 08-26-2020 End: 08-27-2020 Fluticasone Propion-Salmeter ol (Advair Hfa) 230-21 mcg/actuation HFA aerosol inhaler Discontinued 2 NMA INHALATION TWICE A DAY 12 August 26, 2020 10:01am August 27, 2020 5:20pm Start: 08-26-2020 End: 08-27-2020 Fluticasone Propion-Salmeter ol (Advair Hfa) 230-21 mcg/actuation HFA aerosol inhaler Discontinued 2 NMA INHALATION TWICE A DAY 12 August 26, 2020 11:01am August 27, 2020 6:20pm Start: 08-26-2020 End: 08-27-2020 Fluticasone Propion-Salmeter ol (Advair Hfa) 230-21 mcg/actuation HFA aerosol inhaler Discontinued 2 NMA INHALATION TWICE A DAY August 26, 2020 11:01am August 27, 2020 6:20pm Start: 08-26-2020 End: 08-27-2020 Fluticasone Propion-Salmeter ol (Advair Hfa) 230-21 mcg/actuation HFA aerosol inhaler Discontinued 2 NMA INHALATION TWICE A DAY August 26, 2020 10:01am August 27, 2020 5:20pm Start: 08-26-2020 End: 08-27-2020 take 1 puff(s) by inhalation twice daily Fluticasone Propion-Salmeterol (Advair Hfa) 230-21 mcg/actuation HFA aerosol inhaler Discontinued 2 PUFF INHALATION TWICE A DAY August 26, 2020 10:01am August 27, 2020 5:20pm Start: 08-26-2020 End: 08-27-2020 take 1 puff(s) by inhalation twice daily Fluticasone Propion-Salmeterol (Advair Hfa) 230-21 mcg/actuation HFA aerosol inhaler Discontinued 2 PUFF INHALATION TWICE A DAY August 26, 2020 11:01am August 27, 2020 6:20pm Start: 08-24-2020 End: 08-26-2020 Fluticasone Propion-Salmeter ol (Advair Hfa) 230-21 mcg/actuation HFA aerosol inhaler Discontinued 2 NMA INHALATION TWICE A DAY 12 August 24, 2020 4:23pm August 26, 2020 10:02am Start: 08-24-2020 End: 08-26-2020 Fluticasone Propion-Salmeter ol (Advair Hfa) 230-21 mcg/actuation HFA aerosol inhaler Discontinued 2 NMA INHALATION TWICE A DAY 12 August 24, 2020 5:23pm August 26, 2020 11:02am Start: 08-24-2020 End: 08-26-2020 Fluticasone Propion-Salmeter ol (Advair Hfa) 230-21 mcg/actuation HFA aerosol inhaler Discontinued 2 NMA INHALATION TWICE A DAY 12 August 24, 2020 5:23pm August 26, 2020 11:02am Start: 08-24-2020 End: 08-26-2020 Fluticasone Propion-Salmeter ol (Advair Hfa) 230-21 mcg/actuation HFA aerosol inhaler Discontinued 2 NMA INHALATION TWICE A DAY August 24, 2020 4:23pm August 26, 2020 10:02am Start: 08-24-2020 End: 08-26-2020 take 1 puff(s) by inhalation twice daily Fluticasone Propion-Salmeterol (Advair Hfa) 230-21 mcg/actuation HFA aerosol inhaler Discontinued 2 PUFF INHALATION TWICE A DAY 12 August 24, 2020 4:23pm August 26, 2020 10:02am Start: 08-24-2020 End: 08-26-2020 take 1 puff(s) by inhalation twice daily Fluticasone Propion-Salmeterol (Advair Hfa) 230-21 mcg/actuation HFA aerosol inhaler Discontinued 2 PUFF INHALATION TWICE A DAY 12 August 24, 2020 5:23pm August 26, 2020 11:02am Start: 08-24-2020 End: 08-24-2020 Fluticasone Propion-Salmeter ol (Advair Hfa) 230-21 mcg/actuation HFA aerosol inhaler Discontinued 2 NMA INHALATION TWICE A DAY 12 August 24, 2020 4:22pm August 24, 2020 4:23pm Start: 08-24-2020 End: 08-24-2020 Fluticasone Propion-Salmeter ol (Advair Hfa) 230-21 mcg/actuation HFA aerosol inhaler Discontinued 2 NMA INHALATION TWICE A DAY 12 6 August 24, 2020 5:22pm August 24, 2020 5:23pm Start: 08-24-2020 End: 08-24-2020 Fluticasone Propion-Salmeter ol (Advair Hfa) 230-21 mcg/actuation HFA aerosol inhaler Discontinued 2 NMA INHALATION TWICE A DAY 12 August 24, 2020 5:22pm August 24, 2020 5:23pm Start: 08-24-2020 End: 08-24-2020 Fluticasone Propion-Salmeter ol (Advair Hfa) 230-21 mcg/actuation HFA aerosol inhaler Discontinued 2 NMA INHALATION TWICE A DAY August 24, 2020 4:22pm August 24, 2020 4:23pm Start: 08-24-2020 End: 08-24-2020 take 1 puff(s) by inhalation twice daily Fluticasone Propion-Salmeterol (Advair Hfa) 230-21 mcg/actuation HFA aerosol inhaler Discontinued 2 PUFF INHALATION TWICE A DAY 12 August 24, 2020 4:22pm August 24, 2020 4:23pm Start: 08-24-2020 End: 08-24-2020 take 1 puff(s) by inhalation twice daily Fluticasone Propion-Salmeterol (Advair Hfa) 230-21 mcg/actuation HFA aerosol inhaler Discontinued 2 PUFF INHALATION TWICE A DAY 12 August 24, 2020 5:22pm August 24, 2020 5:23pm Start: 07-15-2019 End: 08-24-2020 Fluticasone Propion-Salmeter ol (Advair Hfa) 230-21 mcg/actuation HFA aerosol inhaler Discontinued 2 NMA INHALATION TWICE A DAY 12 July 15, 2019 4:08pm August 24, 2020 4:22pm Start: 07-15-2019 End: 08-24-2020 Fluticasone Propion-Salmeter ol (Advair Hfa) 230-21 mcg/actuation HFA aerosol inhaler Discontinued 2 NMA INHALATION TWICE A DAY 12 July 15, 2019 5:08pm August 24, 2020 5:22pm Start: 07-15-2019 End: 08-24-2020 Fluticasone Propion-Salmeter ol (Advair Hfa) 230-21 mcg/actuation HFA aerosol inhaler Discontinued 2 NMA INHALATION TWICE A DAY July 15, 2019 5:08pm August 24, 2020 5:22pm Start: 07-15-2019 End: 08-24-2020 Fluticasone Propion-Salmeter ol (Advair Hfa) 230-21 mcg/actuation HFA aerosol inhaler Discontinued 2 NMA INHALATION TWICE A DAY July 15, 2019 4:08pm August 24, 2020 4:22pm Start: 07-15-2019 End: 08-24-2020 take 1 puff(s) by inhalation twice daily Fluticasone Propion-Salmeterol (Advair Hfa) 230-21 mcg/actuation HFA aerosol inhaler Discontinued 2 PUFF INHALATION TWICE A DAY July 15, 2019 4:08pm August 24, 2020 4:22pm Start: 07-15-2019 End: 08-24-2020 take 1 puff(s) by inhalation twice daily Fluticasone Propion-Salmeterol (Advair Hfa) 230-21 mcg/actuation HFA aerosol inhaler Discontinued 2 PUFF INHALATION TWICE A DAY July 15, 2019 5:08pm August 24, 2020 5:22pm Start: 07-15-2019 End: 07-15-2019 Fluticasone Propion-Salmeter ol (Advair Hfa) 230-21 mcg/actuation HFA aerosol inhaler Discontinued 2 NMA INHALATION TWICE A DAY 12 July 15, 2019 3:34pm July 15, 2019 4:08pm Start: 07-15-2019 End: 07-15-2019 Fluticasone Propion-Salmeter ol (Advair Hfa) 230-21 mcg/actuation HFA aerosol inhaler Discontinued 2 NMA INHALATION TWICE A DAY 12 July 15, 2019 4:34pm July 15, 2019 5:08pm Start: 07-15-2019 End: 07-15-2019 Fluticasone Propion-Salmeter ol (Advair Hfa) 230-21 mcg/actuation HFA aerosol inhaler Discontinued 2 NMA INHALATION TWICE A DAY July 15, 2019 4:34pm July 15, 2019 5:08pm Start: 07-15-2019 End: 07-15-2019 Fluticasone Propion-Salmeter ol (Advair Hfa) 230-21 mcg/actuation HFA aerosol inhaler Discontinued 2 NMA INHALATION TWICE A DAY July 15, 2019 3:34pm July 15, 2019 4:08pm Start: 07-15-2019 End: 07-15-2019 take 1 puff(s) by inhalation twice daily Fluticasone Propion-Salmeterol (Advair Hfa) 230-21 mcg/actuation HFA aerosol inhaler Discontinued 2 PUFF INHALATION TWICE A DAY July 15, 2019 3:34pm July 15, 2019 4:08pm Start: 07-15-2019 End: 07-15-2019 take 1 puff(s) by inhalation twice daily Fluticasone Propion-Salmeterol (Advair Hfa) 230-21 mcg/actuation HFA aerosol inhaler Discontinued 2 PUFF INHALATION TWICE A DAY July 15, 2019 4:34pm July 15, 2019 5:08pm Start: 06-08-2019 End: 07-15-2019 Fluticasone Propion-Salmeter ol (Advair Hfa) 230-21 mcg/actuation HFA aerosol inhaler Discontinued 2 NMA INHALATION TWICE A DAY 06 10June 08, 2019 1:21pm July 15, 2019 3:34pm Start: 06-08-2019 End: 07-15-2019 Fluticasone Propion-Salmeter ol (Advair Hfa) 230-21 mcg/actuation HFA aerosol inhaler Discontinued 2 NMA INHALATION TWICE A DAY 06 10June 08, 2019 2:21pm July 15, 2019 4:34pm Start: 06-08-2019 End: 07-15-2019 Fluticasone Propion-Salmeter ol (Advair Hfa) 230-21 mcg/actuation HFA aerosol inhaler Discontinued 2 NMA INHALATION TWICE A DAY June 08, 2019 2:21pm July 15, 2019 4:34pm Start: 06-08-2019 End: 07-15-2019 Fluticasone Propion-Salmeter ol (Advair Hfa) 230-21 mcg/actuation HFA aerosol inhaler Discontinued 2 NMA INHALATION TWICE A DAY June 08, 2019 1:21pm July 15, 2019 3:34pm Start: 06-08-2019 End: 07-15-2019 take 1 puff(s) by inhalation twice daily Fluticasone Propion-Salmeterol (Advair Hfa) 230-21 mcg/actuation HFA aerosol inhaler Discontinued 2 PUFF INHALATION TWICE A DAY June 08, 2019 1:21pm July 15, 2019 3:34pm Start: 06-08-2019 End: 07-15-2019 take 1 puff(s) by inhalation twice daily Fluticasone Propion-Salmeterol (Advair Hfa) 230-21 mcg/actuation HFA aerosol inhaler Discontinued 2 PUFF INHALATION TWICE A DAY June 08, 2019 2:21pm July 15, 2019 4:34pm Start: 06-08-2019 End: 06-08-2019 Fluticasone Propion-Salmeter ol (Advair Hfa) 230-21 mcg/actuation HFA aerosol inhaler Discontinued 2 NMA INHALATION TWICE A DAY 06 10June 08, 2019 1:02pm June 08, 2019 1:21pm Start: 06-08-2019 End: 06-08-2019 Fluticasone Propion-Salmeter ol (Advair Hfa) 230-21 mcg/actuation HFA aerosol inhaler Discontinued 2 NMA INHALATION TWICE A DAY 06 10June 08, 2019 2:02pm June 08, 2019 2:21pm Start: 06-08-2019 End: 06-08-2019 Fluticasone Propion-Salmeter ol (Advair Hfa) 230-21 mcg/actuation HFA aerosol inhaler Discontinued 2 NMA INHALATION TWICE A DAY June 08, 2019 2:02pm June 08, 2019 2:21pm Start: 06-08-2019 End: 06-08-2019 Fluticasone Propion-Salmeter ol (Advair Hfa) 230-21 mcg/actuation HFA aerosol inhaler Discontinued 2 NMA INHALATION TWICE A DAY June 08, 2019 1:02pm June 08, 2019 1:21pm Start: 06-08-2019 End: 06-08-2019 take 1 puff(s) by inhalation twice daily Fluticasone Propion-Salmeterol (Advair Hfa) 230-21 mcg/actuation HFA aerosol inhaler Discontinued 2 PUFF INHALATION TWICE A DAY June 08, 2019 1:02pm June 08, 2019 1:21pm Start: 06-08-2019 End: 06-08-2019 take 1 puff(s) by inhalation twice daily Fluticasone Propion-Salmeterol (Advair Hfa) 230-21 mcg/actuation HFA aerosol inhaler Discontinued 2 PUFF INHALATION TWICE A DAY June 08, 2019 2:02pm June 08, 2019 2:21pm Start: 05-30-2019 End: 06-08-2019 take 1 puff(s) by inhalation twice daily Fluticasone Propion-Salmeterol (Advair Hfa) 230-21 mcg/actuation HFA aerosol inhaler Discontinued 2 PUFF INHALATION TWICE A DAY May 30, 2019 2:21pm June 08, 2019 2:02pm Start: 05-30-2019 End: 06-08-2019 Fluticasone Propion-Salmeter ol (Advair Hfa) 230-21 mcg/actuation HFA aerosol inhaler Discontinued 2 NMA INHALATION TWICE A DAY 06 10May 30, 2019 12:00am June 08, 2019 1:02pm Start: 05-30-2019 End: 06-08-2019 Fluticasone Propion-Salmeter ol (Advair Hfa) 230-21 mcg/actuation HFA aerosol inhaler Discontinued 2 NMA INHALATION TWICE A DAY 06 10May 30, 2019 1:00am June 08, 2019 2:02pm Start: 05-30-2019 End: 06-08-2019 Fluticasone Propion-Salmeter ol (Advair Hfa) 230-21 mcg/actuation HFA aerosol inhaler Discontinued 2 NMA INHALATION TWICE A DAY May 30, 2019 1:00am June 08, 2019 2:02pm Start: 05-30-2019 End: 06-08-2019 Fluticasone Propion-Salmeter ol (Advair Hfa) 230-21 mcg/actuation HFA aerosol inhaler Discontinued 2 NMA INHALATION TWICE A DAY May 30, 2019 12:00am June 08, 2019 1:02pm Start: 05-30-2019 End: 06-08-2019 take 1 puff(s) by inhalation twice daily Fluticasone Propion-Salmeterol (Advair Hfa) 230-21 mcg/actuation HFA aerosol inhaler Discontinued 2 PUFF INHALATION TWICE A DAY May 30, 2019 12:00am June 08, 2019 1:02pm Start: 05-30-2019 End: 06-08-2019 take 1 puff(s) by inhalation twice daily Fluticasone Propion-Salmeterol (Advair Hfa) 230-21 mcg/actuation HFA aerosol inhaler Discontinued 2 PUFF INHALATION TWICE A DAY May 30, 2019 1:00am June 08, 2019 2:02pm take 2 puff(s) by in halation twice daily fluticasone-salmeterol HFA (ADVAIR HFA) 230-21 mcg/actuation inhaler Inhale 2 Puffs as instructed twice daily. Active Comment on above: Inhale 2 Puffs as in structed twice daily. ibuprofen 600 mg oral tablet (8 sources) Nonsteroidal Anti-inflammatory Drug Start: 02-08-20 take 1 tablet by mouth every six hours as needed for pain Ibuprofen 600 mg tablet Active 600 mg PO EVERY 6 HOURS as needed for fever or pain February 07, 2024 11:00pm Complies with drug therapy iv contrast (will be provided with radiology test) (1 source) Start: 10-01-19 End: 10-02-19 iv contrast (will be provided with radiology [...] in the MR contrast administration guidelines link. 1 Each 09/30/2024 10/01/2024 Active Multivitamin preparation (20 sources) Start: 09-20-19 take 1 tablet by mouth once daily Multivitamin Active 1 TABLET PO DAILY September 19, 2020 1:20pm Start: 09-19-2020 take 1 tablet by giles th once daily Multivitamin Active 1 TABLET PO DAILY September 18, 2020 11:00pm Start: 09-19-2020 take 1 tablet by giles th once daily Multivitamin Active 1 TABLET PO DAILY September 19, 2020 12:00am Multivitamin tablet (8 sources) Start: 09-19-2020 Multivitamin t ablet Active 1 {tbl} PO DAILY September 18, 2020 11:00pm Complies with drug therapy Start: 09-19-2020 Start: 09-19-2020 Multivitamin t ablet Active 1 {tbl} PO DAILY September 19, 2020 12:00am Start: 09-19-2020 Multivitamin t ablet Active 1 {tbl} PO DAILY September 18, 2020 11:00pm mv-mn/C/glutamin/lysin/herb1 24 (AIR[place]ORNE, ASCORBATE SODIUM, ORAL) (20 sources) mv-mn/C/glutamin /lysin/dbos459 (AIR[place]ORNE, ASCORBATE SODIUM, ORAL) Take by mouth. Active PEP device (20 sources) Start: 022 PEP device Active 0 .ROUTE . MEDSUPPLY 1 0 June 12, 2022 12:00am Chronic cough Cough Bronchiectasis, uncomplicated with training Start: 06-12-2022 PEP device Act george 0 .ROUTE .MEDSUPPLY 1 0 June 12, 2022 1:00am Chronic cough Cough Bronchiectasis, uncomplicated with training Start: 06-12-2022 PEP device Act george 0 .ROUTE .MEDSUPPLY June 12, 2022 1:00am with training Start: 06-12-2022 PEP device Act george 0 .ROUTE .MEDSUPPLY June 12, 2022 12:00am with training predniSONE 20 mg oral tablet (20 sources) Start: 04-13-2024 End: 04-25-2024 take 2 tablets by mouth once daily, then take 1.5 tablets by mouth once daily, then take 1 tablet by mouth once daily, then take 0.5 tablet by mouth once daily predniSONE (DELTASONE) 20 mg tablet Take 2 tablets by mouth once daily for 3 days, THEN 1.5 tablets once daily for 3 days, THEN 1 tablet once daily for 3 days, THEN 0.5 tablets once daily for 3 days. 15 tablet 04/13/2024 04/25/2024 Active Start: 04-09-2024 End: 08-12-2024 take 3 tablets by mouth once daily Prednisone 20 mg tablet Discontinued 60 mg PO DAILY 15 0 April 08, 2024 11:00pm August 12, 2024 10:23am Start: 01-14-2023 End: 03-31-2023 take 4 tablets by mouth once daily, then take 3 tablets by mouth once daily, then take 2 tablets by mouth once daily, then take 1 tablet by mouth once daily, then take 0.5 tablet by mouth once daily Prednisone 10 mg tablet Discontinued 10 mg PO DAILY 60 0 January 13, 2023 11:00pm March 20, 2023 1:00pm 4 tabs daily x 3d, then 3 tabs daily x 3d, then 2 tabs daily x 3, then 1 tab daily x 3d, then 1/2 tab daily Start: 01-10-2023 End: 01-14-2023 take 1 tablet by mouth every other day Prednisone 10 mg tablet Discontinued 10 mg PO EVERY OTHER DAY January 09, 2023 11:00pm January 14, 2023 10:07am Start: 12-05-2022 End: 01-10-2023 take 1 tablet by mouth once daily Prednisone 10 mg tablet Discontinued 10 mg PO daily 30 0 January 05, 2023 7:43am January 10, 2023 10:56pm Shortness of breath Shortness of breath Start: 11-28-2022 End: 12-05-2022 Prednisone 10 mg tablet Discontinued 10 mg PO daily 30 0 November 27, 2022 11:00pm December 05, 2022 8:27am Shortness of breath Shortness of breath take 4 tabs for three days, then 3 tabs for three days, then 2 tabs for three days, then 1 tab for 3 days Start: 05-27-2022 End: 07-10-2022 take 4 tablets by mouth once daily, then take 3 tablets by mouth once daily, then take 2 tablets by mouth once daily, then take 1 tablet by mouth once daily, then take 1 tablet by mouth every other day Prednisone 10 mg tablet Discontinued 10 mg PO DIRECTED 33 June 02, 2022 12:00am July 10, 2022 10:56am Take 4 tablets daily for 3 days, then 3 daily for 3 days, then 2 daily for 3 days, then 1 a day for 3 days then 1 QOD for 3 doses. Start: 11-15-2021 End: 12-09-2021 Prednisone Discontinued 0 PO per package directions November 15, 2021 9:05am December 09, 2021 1:46pm PO PER PKG DIR Start: 11-15-2021 Prednisone Act george 0 PO per package directions November 15, 2021 9:05am PO PER PKG DIR Start: 11-15-2021 End: 12-09-2021 Prednisone 10 mg tablets,dos e pack Discontinued 0 PO per package directions 48 November 14, 2021 11:00pm December 09, 2021 12:46pm PO PER PKG DIR Start: 11-15-2021 End: 12-09-2021 Prednisone Discontinued 0 PO per package directions November 14, 2021 11:00pm December 09, 2021 12:46pm PO PER PKG DIR Start: 11-15-2021 End: 12-09-2021 Prednisone Discontinued 0 PO per package directions November 15, 2021 12:00am December 09, 2021 1:46pm PO PER PKG DIR Start: 12-24-2020 End: 01-29-2021 take 3 tablets by mouth once daily at mealtime Prednisone 20 mg tablet Discontinued 60 mg PO daily 15 0 January 14, 2021 11:00pm January 29, 2021 1:25pm administer with food or milk Start: 12-24-2020 End: 01-29-2021 take 60 mg by mouth once daily at mealtime Prednisone Discontinued 60 MG PO daily January 15, 2021 12:00am January 29, 2021 2:25pm administer with food or milk Start: 11-05-2020 End: 12-19-2020 Prednisone 10 mg tablet Discontinued 10 mg PO daily 30 0 November 04, 2020 11:00pm December 19, 2020 12:28pm take 4 tabs for three days, then 3 tabs for three days, then 2 tabs for three days, then 1 tab for 3 days Start: 06-28-2020 End: 08-23-2020 Prednisone 10 mg tablet Discontinued 10 mg PO daily 30 June 28, 2020 12:00am August 23, 2020 1:39pm take 4 tabs for three days, then 3 tabs for three days, then 2 tabs for three days, then 1 tab for 3 days Start: 07-20-2019 End: 08-25-2019 take 3 tablets by mouth once daily at mealtime Prednisone 20 mg tablet Discontinued 60 mg PO daily 15 July 20, 2019 12:00am August 25, 2019 10:47am administer with food or milk Start: 07-20-2019 End: 08-25-2019 take 60 mg by mouth once daily at mealtime Prednisone Discontinued 60 MG PO daily July 20, 2019 1:00am August 25, 2019 11:47am administer with food or milk Start: 05-04-2019 End: 05-06-2019 take 3 tablets by mouth once daily at mealtime Prednisone 20 mg tablet Discontinued 60 mg PO daily 15 May 03, 2019 11:00pm May 06, 2019 2:40pm administer with food or milk Start: 05-04-2019 End: 05-06-2019 take 60 mg by mouth once daily at mealtime Prednisone Discontinued 60 MG PO daily May 04, 2019 12:00am May 06, 2019 3:40pm administer with food or milk Comment on above: Take 4 daily for thr ee days, then 3 daily for three days, then 2 daily for three days, then one daily for three days. rosuvastatin calcium 5 mg oral tablet (20 sources) HMG-CoA Reductase Inhibitor Start: 09-20-2024 End: 03-21-2025 rosuvastatin (CRESTOR) 5 mg tablet TAKE 0.5 TAB BY MOUTH EVERY 48 HOURS 90 tablet 09/22/2024 Active Start: 12-19-2020 End: 07-27-2023 take 2.5 mg by mouth every other day Rosuvastatin 5 mg tablet Discontinued 2.5 mg PO EVERY OTHER DAY 90 January 28, 2023 3:44pm July 27, 2023 4:37pm Start: 12-19-2020 End: 07-27-2023 take 2.5 mg by mouth every other day Rosuvastatin Discontinued 2.5 MG PO EVERY OTHER DAY 90 January 28, 2023 4:44pm July 27, 2023 5:37pm Start: 09-15-2019 End: 12-19-2020 take 1 tablet by mouth every other day Rosuvastatin 5 mg tablet Discontinued 5 mg PO EVERY OTHER DAY 90 September 15, 2019 1:00pm May 23, 2020 3:49pm Start: 03-01-2019 End: 09-17-2024 rosuvastatin (CRESTOR) 5 mg tablet Take 0.5 tablets by mouth every 48 hours. 25 tablet 1 03/01/2019 09/17/2024 Discontinued Start: 05-18-2016 End: 09-15-2019 Rosuvastatin 5 MG tablet Discontinued 0.5 {tbl} PO EVERY OTHER DAY May 18, 2016 12:00am September 15, 2019 12:45pm Start: 05-18-2016 End: 09-15-2019 take 0.5 tablet by mouth every other day Rosuvastatin Discontinued 0.5 TABLET PO EVERY OTHER DAY May 18, 2016 1:00am September 15, 2019 1:45pm Comment on above: Take 0.5 tablets by mouth every 48 hours. tamsulosin hydrochloride 0.4 mg oral capsule (20 sources) alpha-Adrenergic Zach Start: take 2 capsules by mouth at bedtime Tamsulosin 0.4 mg capsule Active 0.8 mg PO AT BEDTIME 180 August 23, 2024 12:57pm Complies with drug therapy Start: 11-05-2020 End: 08-23-2024 take 1 capsule by mouth once daily Tamsulosin 0.4 mg capsule Discontinued 0.4 mg PO DAILY 90 July 23, 2023 10:49am February 15, 2024 7:15am Start: 06-22-2019 End: 06-25-2020 take 1 capsule by mouth once daily Tamsulosin 0.4 mg capsule Discontinued 0.4 mg PO DAILY 30 September 15, 2019 1:01pm February 22, 2020 2:59pm Start: 05-18-2016 End: 05-13-2019 take 1 capsule by mouth once daily Tamsulosin 0.4 MG capsule Discontinued 0.4 mg PO DAILY May 18, 2016 12:00am May 13, 2019 10:01am take 0.8 mg by mouth once daily tamsulosin (FLOMAX) 0.4 mg Take 0.8 mg by mouth once daily. Active Comment on above: Take 0.4 mg by mouth once daily. Tezepelumab-Ekko (20 sources) Start: 11-28-2022 Tezepelumab-Ek ko (Tezspire) 210 mg/1.91 mL (110 mg/mL) pen injector Active 210 mg SC every 4 weeks 1.November 27, 2022 11:00pm Complies with drug therapy Start: 11-28-2022 Start: 11-28-2022 Tezepelumab-Ek ko (Tezspire) 210 mg/1.91 mL (110 mg/mL) pen injector Active 210 mg SC every 4 weeks 1.November 28, 2022 12:00am Start: 11-28-2022 Tezepelumab-Ek ko (Tezspire) 210 mg/1.91 mL (110 mg/mL) pen injector Active 210 mg SC every 4 weeks 1.November 28, 2022 12:00am Start: 11-28-2022 Tezepelumab-Ek ko (Tezspire) 210 mg/1.91 mL (110 mg/mL) pen injector Active 210 mg SC every 4 weeks November 27, 2022 11:00pm Start: 11-28-2022 Tezepelumab-Ek ko (Tezspire) 210 mg/1.91 mL (110 mg/mL) pen injector Active 210 MG SC every 4 weeks November 27, 2022 11:00pm Start: 11-28-2022 Tezepelumab-Ek ko (Tezspire) 210 mg/1.91 mL (110 mg/mL) pen injector Active 210 MG SC every 4 weeks 1.91 November 28, 2022 12:00am tezepelumab-ekko (TEZSPIRE) 210 mg/1.91 mL (110 mg/mL) syringe (20 sources) Start: 12-19-2024 tezepelumab-ek ko (TEZSPIRE) 210 mg/1.91 mL (110 mg/mL) syringe Inject 1.91 mL subcutaneously every 4 weeks. 1.91 mL 11 12/19/2024 Active Start: 04-02-2023 End: 12-19-2024 tezepelumab-ekko (TEZSPIRE) 210 mg/1.91 mL (110 mg/mL) syringe Inject 1.91 mL subcutaneously every 4 weeks. 04/02/2023 12/19/2024 Discontinued Start: 04-02-2023 tezepelumab-ek ko (TEZSPIRE) 210 mg/1.91 mL (110 mg/mL) syringe Inject 1.91 mL subcutaneously every 4 weeks. 04/02/2023 Active Start: 04-02-2023 tezepelumab-ek ko (TEZSPIRE) 210 mg/1.91 mL (110 mg/mL) syringe Inject 1.91 mL subcutaneously every 4 weeks. 0 04/02/2023 Active Comment on above: Inject 1.91 mL subcu taneously every 4 weeks. THERAPEUTIC MULTIVITAMIN TAB (20 sources) Start: 010 THERAPEUTIC MULTIVITAMIN TAB Take one(1) tablet daily. 1 0 07/27/2009 Active Comment on above: Take one(1) tablet d aily. 60 actuat tiotropium 0.30830 mg/actuat inhalation spray (20 sources) Anticholinergic Start: 024 End: 025 take 1.25 ug by inhalation once daily Tiotropium Rush (Spiriva Respimat) 1.25 mcg/actuation mist Active 2 NMA INHALATION DAILY 12 August 23, 2024 1:00pm Complies with drug therapy Start: 01-17-2021 End: 02-25-2024 take 1.25 ug by inhalation once daily Tiotropium Rush (Spiriva Respimat) 1.25 mcg/actuation mist Discontinued 2 NMA INHALATION DAILY 3 3 October 15, 2023 1:04pm February 25, 2024 12:21pm Start: 01-17-2021 End: 10-15-2023 take 1 puff(s) by inhalation once daily Tiotropium Rush (Spiriva Respimat) 1.25 mcg/actuation mist Discontinued 2 PUFF INHALATION DAILY 3 October 15, 2023 1:18pm October 15, 2023 2:04pm Start: 06-21-2019 End: 08-25-2019 take 1.25 ug by inhalation once daily Tiotropium Rush (Spiriva Respimat) 1.25 mcg/actuation mist Discontinued 2 NMA INHALATION DAILY 4 June 21, 2019 12:00am August 25, 2019 10:47am Start: 06-21-2019 End: 08-25-2019 take 1 puff(s) by inhalation once daily Tiotropium Rush (Spiriva Respimat) 1.25 mcg/actuation mist Discontinued 2 PUFF INHALATION DAILY 4 June 21, 2019 1:00am August 25, 2019 11:47am Comment on above: Inhale 2 Puffs as in structed once daily. traZODone hydrochloride 100 mg oral tablet (20 sources) Serotonin Reuptake Inhibitor Start: 2 End: 4 take 1 tablet by mouth at bedtime as needed Trazodone 100 mg tablet Active 100 mg PO AT BEDTIME as needed for insomnia 40 90 1 July 16, 2022 4:58pm Complies with drug therapy Start: 06-21-2021 End: 10-24-2021 take 1 tablet by mouth at bedtime as needed Trazodone 50 mg tablet Discontinued 50 mg PO AT BEDTIME as needed for insomnia 30 1 October 23, 2021 8:16am October 24, 2021 2:37pm Comment on above: Take 100 mg by mouth as needed. At bedtime as needed vit A/vit C/vit E/zinc/copper (PRESERVISION AREDS ORAL) (20 sources) vit A/vit C/vit E/zinc/copper (PRESERVISION AREDS ORAL) Take by mouth. Active Completed/Discontinued Medications Medication Drug Class(es) Dates Sig (Normalized) Sig (Original) acetaminophen 325 mg / oxyCODONE hydrochloride 5 mg oral tablet (20 sources) Opioid Agonist Start: 05-18-2016 End: 05-04-2019 Oxycodone-Acetamino phen 1 TABLET tablet Discontinued 1 - 2 {tbl} PO EVERY 4 HOURS NEEDED as needed for Pain May 18, 2016 12:00am May 04, 2019 9:51am Start: 05-18-2016 End: 05-04-2019 take 1 tablet by mouth every four hours as needed Oxycodone-Acetaminophen Discontinued 1 - 2 TABLET PO EVERY 4 HOURS NEEDED May 18, 2016 1:00am May 04, 2019 10:51am Albuterol 90 mcg/actuation Aerosol (8 sources) Start: 12-24-2020 End: 02-26-2021 Albuterol 90 mcg/actuation Aerosol Discontinued 90 ug INHALATION NEEDED as needed for Wheezing December 24, 2020 12:00am February 26, 2021 11:56am Start: 12-24-2020 End: 02-26-2021 Albuterol 90 mcg/actuation A erosol Discontinued 90 ug INHALATION NEEDED as needed for Wheezing December 23, 2020 11:00pm February 26, 2021 10:56am allopurinol 300 mg oral tablet (20 sources) Xanthine Oxidase Inhibitor Start: 05-18-2016 End: 09-17-2024 take 1 tablet by mouth once daily Allopurinol 300 mg tablet Discontinued 300 mg PO DAILY 90 July 16, 2022 4:57pm October 15, 2023 12:17pm Comment on above: Take 1 tablet by giles th once daily. For gout. Ascorbic Acid (3 sources) Vitamin C End: 01-16-2023 ASCORBIC ACID (VITAMIN C ORAL) Take by mouth once daily. 0 01/16/2023 Discontinued ASCORBIC ACID (V ITAMIN C ORAL) Take by mouth once daily. 0 Active Comment on above: Take by mouth once d aily. azelastine hydrochloride 0.206 mg/actuat metered dose nasal spray (20 sources) Histamine-1 Receptor Antagonist Start: 03-16-2023 End: 02-15-2024 Azelastine 205.5 mcg (0.15 %) spray,non-aerosol Discontinued 1 NMA INTRANASAL TWICE A DAY 3 March 15, 2023 11:00pm February 15, 2024 7:15am Chronic obstructive pulmonary disease, unspecified administer into each nostril Start: 03-16-2023 take 1 spray(s) nasa l route twice daily Azelastine Active 1 SPRAY INTRANASAL TWICE A DAY March 16, 2023 12:00am administer into each nostril Start: 12-06-2019 End: 01-18-2021 Azelastine 0.15 % (205.5 mcg ) spray,non-aerosol Discontinued 1 NMA INTRANASAL TWICE A DAY 04 06January 17, 2020 6:40am January 18, 2021 10:16am administer into each nostril Start: 06-07-2019 End: 12-06-2019 Azelastine 0.15 % (205.5 mcg ) spray,non-aerosol Discontinued 1 NMA INTRANASAL TWICE A DAY 02 10June 07, 2019 12:00am December 06, 2019 7:33am administer into each nostril Start: 06-07-2019 End: 01-18-2021 take 1 spray(s) nasal route twice daily Azelastine Discontinued 1 SPRAY INTRANASAL TWICE A DAY January 17, 2020 7:40am January 18, 2021 11:16am administer into each nostril Start: 05-30-2019 End: 06-07-2019 Azelastine 137 mcg (0.1 %) aerosol,spray Discontinued 1 NMA INTRANASAL TWICE A DAY 02 01May 30, 2019 1:24pm June 07, 2019 3:47pm Start: 05-30-2019 End: 06-07-2019 Azelastine Discontinued 1 SP RAY INTRANASAL TWICE A DAY May 30, 2019 2:24pm June 07, 2019 4:47pm Start: 05-04-2019 End: 05-06-2019 Azelastine 0.15 % (205.5 mcg ) spray,non-aerosol Discontinued 1 NMA INTRANASAL TWICE A DAY 04 06May 03, 2019 11:00pm May 06, 2019 2:40pm Chronic obstructive pulmonary disease, unspecified administer into each nostril Start: 05-04-2019 End: 05-06-2019 take 1 spray(s) nasal route twice daily Azelastine Discontinued 1 SPRAY INTRANASAL TWICE A DAY May 04, 2019 12:00am May 06, 2019 3:40pm administer into each nostril azelastine HCl ( ASTEPRO ALLERGY NASAL) Use 1 Dixon in the nose as needed. Active azelastine HCl ( ASTEPRO ALLERGY NASAL) Use in the nose. Active azelastine hydrochloride 0.137 mg/actuat / fluticasone propionate 0.05 mg/actuat metered dose nasal spray (20 sources) Corticosteroid, Histamine-1 Receptor Antagonist Start: 10-06-2022 End: 03-16-2023 Azelastine-Fluticasone 137-50 mcg/spray spray,non-aerosol Discontinued 1 NMA INTRANASAL TWICE A DAY 26 12February 26, 2023 10:44am March 16, 2023 4:36pm administer into each nostril Start: 10-06-2022 End: 03-16-2023 take 1 spray(s) nasal route twice daily Azelastine-Fluticasone Discontinued 1 SPRAY INTRANASAL TWICE A DAY February 26, 2023 11:44am March 16, 2023 5:36pm administer into each nostril End: 07-29-2024 take 1 spray(s) nasal route once daily azelastine-fluticasone 137-50 mcg/spray spry Use in each nostril once daily. Uses astepro spray 07/29/2024 Discontinued azelastine-fluti casone 137-50 mcg/spray spry Use in each nostril. Active Comment on above: Use in each nostril. azithromycin 250 mg oral tablet (20 sources) Macrolide Antimicrobial Start: 04-17-20 End: 11-11-19 take 1 tablet by mouth once daily Azithromycin 250 mg tablet Discontinued 250 mg PO DAILY February 25, 2024 12:21pm November 10, 2024 1:55pm will change to 3xWeek on April 05 Start: 01-16-2023 End: 03-31-2023 azithromycin (ZITHROMAX) 250 mg tablet Take one daily. Do not take with Levaquin 30 tablet 0 02/12/2023 Active Start: 11-08-2021 End: 11-15-2021 take 2-5 tablets by mouth once daily Azithromycin 250 mg tablet Discontinued 0 PO .COMPLEX 6 0 November 07, 2021 11:00pm November 15, 2021 7:31am take 500 mg today (day 1), then 250 mg for 4 days (days 2-5) PO Start: 07-02-2021 End: 07-16-2021 take 2-5 tablets by mouth once daily Azithromycin 250 mg tablet Discontinued 0 PO .COMPLEX 6 0 July 02, 2021 12:00am July 16, 2021 8:25am take 500 mg today (day 1), then 250 mg for 4 days (days 2-5) PO Start: 05-17-2021 End: 06-21-2021 Azithromycin (Zithromax Z-Pa k) 250 mg tablet Discontinued 0 PO .COMPLEX 6 0 May 18, 2021 12:00am June 21, 2021 2:17pm For 250 mg dose pack: take 500 mg today (day 1), then 250 mg for 4 days (days 2-5) PO Start: 01-15-2021 End: 01-29-2021 take 2-5 tablets by mouth once daily Azithromycin 250 mg tablet Discontinued 0 PO .COMPLEX 6 0 January 14, 2021 11:00pm January 29, 2021 1:26pm take 500 mg today (day 1), then 250 mg for 4 days (days 2-5) PO Start: 06-25-2020 End: 08-23-2020 take 2-5 tablets by mouth once daily Azithromycin 250 mg tablet Discontinued 0 PO .COMPLEX 6 0 June 25, 2020 12:00am August 23, 2020 1:38pm take 500 mg today (day 1), then 250 mg for 4 days (days 2-5) PO Comment on above: Take one daily. Do n ot take with Levaquin Take one tablet brando y Take one daily. benzonatate 100 mg oral capsule (20 sources) Non-narcotic Antitussive Start: End: 3 take 2 capsules by mouth three times daily as needed for cough Benzonatate 100 mg capsule Discontinued 200 mg PO THREE TIMES A DAY as needed for cough 30 0 November 07, 2021 11:00pm August 08, 2022 11:32am Start: 11-08-2021 End: 08-08-2022 take 200 mg by mouth three times daily Benzonatate Discontinued 200 MG PO THREE TIMES A DAY November 08, 2021 12:00am August 08, 2022 12:32pm bimatoprost 0.3 mg/ml topical solution (20 sources) Prostaglandin Analog Start: 05-18-2016 End: 05-04-2019 take 1 drop(s) into the eye(s) at bedtime Bimatoprost 1 DROP bottle Discontinued 1 NMA EACH EYE AT BEDTIME May 18, 2016 12:00am May 04, 2019 9:49am Start: 05-18-2016 End: 05-04-2019 Bimatoprost Discontinued 1 D RP EACH EYE AT BEDTIME May 18, 2016 1:00am May 04, 2019 10:49am calcium ascorbate 500 mg oral tablet (20 sources) Start: 05-06-2019 End: 06-25-2020 take 1 tablet by mouth once daily Ascorbate Calcium (Vitamin C) 500 mg tablet Discontinued 500 mg PO DAILY May 05, 2019 11:00pm June 25, 2020 1:02pm cefdinir 300 mg oral capsule (20 sources) Cephalosporin Antibacterial Start: 02-26-2022 End: 03-19-2022 take 1 capsule by mouth twice daily Cefdinir 300 mg capsule Discontinued 300 mg PO TWICE A DAY February 25, 2022 11:00pm March 19, 2022 12:08pm cholecalciferol 0.025 mg oral capsule (20 sources) Vitamin D Start: 09-19-2020 End: 04-06-2023 take 1 capsule by mouth once daily Cholecalciferol (Vitamin D3) 25 mcg (1,000 unit) capsule Discontinued 25 ug PO DAILY July 16, 2022 4:57pm April 06, 2023 9:47am End: 03-18-2024 take 1 capsule by mouth once daily Cholecalciferol, Vitamin D3, 25 mcg (1,000 unit) cap Take 1,000 Units by mouth once daily. 03/18/2024 Discontinued Comment on above: Take 1,000 Units by mouth once daily. ciprofloxacin 250 mg oral tablet (20 sources) Quinolone Antimicrobial Start: 05-23-20 16 End: 05-04-20 19 take 1 tablet by mouth twice daily Ciprofloxacin Hcl 250 MG tablet Discontinued 250 mg PO TWICE A DAY 14 0 May 23, 2016 12:00am May 04, 2019 9:51am clopidogrel 75 mg oral tablet (20 sources) [id number] Platelet Inhibitor Start: 09-04-19 End: 02-25-20 take 1 tablet by mouth once daily Clopidogrel 75 mg tablet Discontinued 75 mg PO DAILY 30 0 July 02, 2023 10:22am October 22, 2023 8:26am Comment on above: Take 75 mg by mouth once daily. codeine phosphate 2 mg/ml / promethazine hydrochloride 1.25 mg/ml oral solution (20 sources) Opioid Agonist, Phenothiazine Start: 01-26-20 End: 07-10-19 take 1 mL by mouth four times daily as needed for cough Promethazine-Codeine 6.25-10 mg/5 mL syrup Discontinued 5 mL PO 4 TIMES DAILY NEEDED as needed for cough 140 7 0 January 25, 2022 1:35am July 10, 2022 10:57am Multifocal pneumonia Pneumonia, unspecified organism Start: 01-25-2022 End: 07-10-2022 take 1 mL by mouth four times daily as needed Promethazine-Codeine Discontinued 5 ML PO 4 TIMES DAILY NEEDED 140 7 January 25, 2022 2:35am July 10, 2022 11:57am Start: 11-15-2021 End: 01-17-2022 take 1 mL by mouth every six hours as needed for cough Promethazine-Codeine 6.25-10 mg/5 mL syrup Discontinued 5 mL PO EVERY 6 HOURS as needed for cough 473 0 November 15, 2021 11:52am January 17, 2022 9:25am Asthma Cough Unspecified asthma, uncomplicated Cough, unspecified Start: 11-15-2021 End: 01-17-2022 take 1 mL by mouth every six hours Promethazine-Codeine Discontinued 5 ML PO EVERY 6 HOURS 473 November 15, 2021 12:52pm January 17, 2022 10:25am CPAP (20 sources) Start: 07-19-2014 End: 08-05-2024 CPAP Initiate AutoPAP @ 10/2 0 cm of water with humidification. Mask (per patient preference) optional chin strap (if indicated) , filters, tubing, humidifier and lifetime supplies. Dx. CARMELLA 327.23 1 Units 0 07/19/2014 08/05/2024 Discontinued Start: 07-19-2014 CPAP Initiate AutoPAP @ 10/20 cm of water with humidification. Mask (per patient preference) optional chin strap (if indicated) , filters, tubing, humidifier and lifetime supplies. Dx. CARMELLA 327.23 1 Units 0 07/19/2014 Active Comment on above: Initiate AutoPAP @ 1 0/20 cm of water with humidification. Mask (per patient preference) optional chin strap (if indicated) , filters, tubing, humidifier and lifetime supplies. Dx. CARMELLA 327.23 dexamethasone 6 mg oral tablet (20 sources) Corticosteroid Start: 09-26-19 End: 10-11-19 take 1 tablet by mouth once daily Dexamethasone 6 mg tablet Discontinued 6 mg PO DAILY 5 0 September 24, 2022 11:00pm October 10, 2022 12:32pm Fluad Quad (65yr up)(PF) 60 mcg (15 mcg x 4)/0.5mL IM syringe (flu vac (3 sources) Start: 03-21-20 End: 03-21-20 Fluad Quad (65yr up)(PF) 60 mcg (15 mcg x 4)/0.5mL IM syringe (flu vac Discontinued 60 MCG IM ONCE 0.5 March 21, 2021 2:01pm March 21, 2021 3:29pm 12 hr guaiFENesin 1200 mg extended release oral tablet (20 sources) Start: 06-12-20 End: 10-22-19 take 1 tablet by mouth every twelve hours Guaifenesin 1,200 mg tablet extended release 12hr Discontinued 1200 mg PO Q12H 60 July 16, 2022 4:57pm October 22, 2023 8:26am Chronic cough Cough guaiFENesin (MUC INEX) 600 mg 12 hr tablet Take 1,200 mg by mouth two times a day as needed for cold/allergy symptoms. Per pt Active Comment on above: Take by mouth. ipratropium bromide 0.042 mg/actuat metered dose nasal spray (20 sources) Anticholinergic Start: 07-17-2022 End: 11-12-2022 take 1 spray(s) nasal route twice daily Ipratropium Rush Active 1 SPRAY INTRANASAL TWICE A DAY November 12, 2022 9:29am administer into each nostril Start: 07-16-2022 End: 07-17-2022 take 1 spray(s) nasal route twice daily Ipratropium Rush Discontinued 1 SPRAY INTRANASAL TWICE A DAY July 16, 2022 5:57pm July 17, 2022 6:11pm administer into each nostril Start: 07-16-2022 End: 07-17-2022 take 1 spray(s) nasal route twice daily Ipratropium Rush Discontinued 1 SPRAY INTRANASAL TWICE A DAY July 16, 2022 4:57pm July 17, 2022 5:11pm administer into each nostril Start: 01-18-2021 End: 11-12-2022 Ipratropium Rush 42 mcg ( 0.06 %) spray,non-aerosol Discontinued 1 NMA INTRANASAL TWICE A DAY 18 12July 17, 2022 5:11pm November 12, 2022 8:30am administer into each nostril Start: 01-18-2021 End: 07-16-2022 take 1 spray(s) nasal route twice daily Ipratropium Rush Discontinued 1 SPRAY INTRANASAL TWICE A DAY January 18, 2021 12:00am July 16, 2022 5:58pm administer into each nostril ipratropium brom sylvester (ATROVENT) 42 mcg (0.06 %) nasal spray Use 2 Sprays in the nose as needed. Active ipratropium brom sylvester (ATROVENT) 42 mcg (0.06 %) nasal spray Use 2 Sprays in the nose four times daily. Active Comment on above: Use 2 Sprays in the nose four times daily. Ipratropium Rush 42 mcg (0.06 %) spray,non-aerosol (5 sources) Start: 07-16-2022 End: 07-17-2022 Ipratropium Rush 42 mcg (0.06 %) spray,non-aerosol Discontinued 1 NMA INTRANASAL TWICE A DAY 18 12July 16, 2022 5:57pm July 17, 2022 6:11pm administer into each nostril Start: 07-16-2022 End: 07-17-2022 Ipratropium Rush 42 mcg ( 0.06 %) spray,non-aerosol Discontinued 1 NMA INTRANASAL TWICE A DAY July 16, 2022 5:57pm July 17, 2022 6:11pm administer into each nostril Start: 07-16-2022 End: 07-17-2022 Ipratropium Rush 42 mcg ( 0.06 %) spray,non-aerosol Discontinued 1 NMA INTRANASAL TWICE A DAY July 16, 2022 4:57pm July 17, 2022 5:11pm administer into each nostril irbesartan 150 mg oral tablet (20 sources) Angiotensin 2 Receptor Zach Start: 05-18-2016 End: 08-23-2024 take 1 tablet by mouth once daily Irbesartan 150 mg tablet Discontinued 150 mg PO DAILY 90 3 September 10, 2023 2:58pm August 23, 2024 1:04pm Comment on above: Take 1 tablet by giles th once daily. Lactobacillus Combination No.9 (Adult 50 Plus Probiotic) 4 billion cell capsule (20 sources) Start: 07-20-2019 End: 06-25-2020 take 4 capsules by mouth once daily Lactobacillus Combination No.9 (Adult 50 Plus Probiotic) 4 billion cell capsule Discontinued 4000 MMU CELLS PO DAILY July 20, 2019 10:38am June 25, 2020 2:02pm administer with a meal Start: 07-20-2019 End: 06-25-2020 take 4 capsules by mouth once daily Lactobacillus Combination No.9 (Adult 50 Plus Probiotic) 4 billion cell capsule Discontinued 4000 NMA PO DAILY July 20, 2019 1:00am June 25, 2020 2:02pm administer with a meal Start: 07-20-2019 End: 06-25-2020 take 4 capsules by mouth once daily Lactobacillus Combination No.9 (Adult 50 Plus Probiotic) 4 billion cell capsule Discontinued 4000 NMA PO DAILY July 20, 2019 12:00am June 25, 2020 1:02pm administer with a meal Start: 07-20-2019 End: 06-25-2020 take 4 capsules by mouth once daily Lactobacillus Combination No.9 (Adult 50 Plus Probiotic) 4 billion cell capsule Discontinued 4000 MMU CELLS PO DAILY July 20, 2019 12:00am June 25, 2020 1:02pm administer with a meal Start: 07-20-2019 End: 06-25-2020 take 4 capsules by mouth once daily Lactobacillus Combination No.9 (Adult 50 Plus Probiotic) 4 billion cell capsule Discontinued 4000 MMU CELLS PO DAILY July 20, 2019 1:00am June 25, 2020 2:02pm administer with a meal lansoprazole 30 mg delayed release oral capsule (20 sources) Proton Pump Inhibitor Start: 01-23-2021 End: 10-31-2024 take 1 capsule by mouth once daily Lansoprazole (Prevacid) 30 mg capsule,delayed release(DR/EC) Discontinued 30 mg PO DAILY 90 3 October 15, 2023 12:17pm October 15, 2023 1:04pm Comment on above: Take 30 mg by mouth once daily. latanoprost 0.05 mg/ml ophthalmic solution (20 sources) Prostaglandin Analog Start: 12-09-2021 End: 07-10-2022 Latanoprost 0.005 % drops Discontinued 1 NMA OPHTHALMIC EVERY EVENING December 09, 2021 12:46pm July 10, 2022 10:55am Start: 05-04-2019 End: 12-09-2021 Latanoprost 0.005 % drops Discontinued 1 NMA OPHTHALMIC EVERY EVENING May 03, 2019 11:00pm December 09, 2021 12:48pm Start: 03-01-2019 End: 03-31-2023 Latanoprost Discontinued 1 D RP OPHTHALMIC EVERY EVENING December 09, 2021 1:46pm July 10, 2022 11:55am Start: 03-01-2019 take 1 drop(s) into the eye(s) once daily at bedtime latanoprost (XALATAN) 0.005 % ophthalmic solution Use 1 Drop in both eyes daily at bedtime. 3 Bottle 1 03/01/2019 Active Comment on above: Use 1 Drop in both e yes daily at bedtime. levoFLOXacin 750 mg oral tablet (20 sources) Quinolone Antimicrobial Start: 01-15-20 End: 01-22-20 take 1 tablet by mouth every twenty-four hours Levofloxacin 750 mg tablet Discontinued 750 mg PO Q24H 4 0 January 13, 2023 11:00pm January 21, 2023 9:08am Start: 03-15-2022 take 750 mg by mouth once brando y Levofloxacin Active 750 MG PO DAILY March 15, 2022 12:00am Start: 11-05-2020 End: 11-10-2020 take 1 tablet by mouth every twenty-four hours Levofloxacin 500 mg tablet Discontinued 500 mg PO Q24H 5 5 0 November 04, 2020 11:00pm November 08, 2020 11:00pm November 09, 2020 11:01pm lidocaine hydrochloride 20 mg/ml mucous membrane topical solution (3 sources) Antiarrhythmic, Amide Local Anesthetic Start: 05-07-2018 End: 01-16-2023 lidocaine viscous (LIDOCAINE VISCOUS) 2 % solution Indications: Sore throat Gargle and spit 10-15mLs every 3-4 hours as need for throat discomfort. 120 mL 0 05/07/2018 01/16/2023 Discontinued Comment on above: Gargle and spit 10-1 5mLs every 3-4 hours as need for throat discomfort. loratadine 10 mg oral tablet (20 sources) Start: 06-23-2016 End: 02-02-2023 take 1 tablet by mouth once daily Loratadine 10 mg tablet Discontinued 10 mg PO DAILY 90 3 July 16, 2022 4:57pm February 02, 2023 12:16pm Start: 05-18-2016 End: 07-22-2019 take 1 tablet by mouth once daily Loratadine 10 mg tablet,disintegrating Discontinued 10 mg PO DAILY 90 3 July 20, 2019 9:47am July 22, 2019 9:41am Comment on above: Take 1 tablet by giles th once daily. 1 ml mepolizumab 100 mg/ml auto-injector (20 sources) Interleukin-5 Antagonist Start: 08-23-2020 End: 12-26-2022 Mepolizumab (Nucala) 100 mg/mL auto-injector Discontinued 300 mg SC every 4 weeks August 23, 2020 12:00am December 26, 2022 12:10pm administer as three 100 mg injections at separate sites Start: 12-07-2019 End: 06-25-2020 Mepolizumab (Nucala) 100 mg recon soln Discontinued 300 mg SC every 4 weeks 1 December 07, 2019 10:35am June 25, 2020 1:02pm Start: 07-22-2019 End: 02-22-2020 Mepolizumab (Nucala) 100 mg/ mL auto-injector Discontinued 100 mg SC every 4 weeks 1 July 22, 2019 12:00am February 22, 2020 2:17pm Start: 07-20-2019 End: 07-22-2019 Mepolizumab (Nucala) 100 mg/ mL auto-injector Discontinued 300 mg SC every 4 weeks 1 July 20, 2019 12:00am July 22, 2019 2:32pm administer as three 100 mg injections at separate sites methylPREDNISolone 4 mg oral tablet (20 sources) Corticosteroid Start: 11-08-2021 End: 11-13-2021 take 1 tablet by mouth once Methylprednisolone (Medrol (Nitin)) 4 mg tablets,dose pack Discontinued 4 mg PO per package directions 21 5 0 November 07, 2021 11:00pm November 11, 2021 11:00pm November 12, 2021 11:04pm Start: 07-02-2021 End: 07-07-2021 take 1 tablet by mouth once Methylprednisolone (Medrol (Nitin)) 4 mg tablets,dose pack Discontinued 4 mg PO per package directions 21 5 0 July 02, 2021 12:00am July 06, 2021 12:00am July 07, 2021 12:01am montelukast 10 mg oral tablet (20 sources) Leukotriene Receptor Antagonist Start: 05-30-2019 End: 10-31-2024 take 1 tablet by mouth once daily in the evening Montelukast 10 mg tablet Discontinued 10 mg PO EVERY EVENING 90 3 October 15, 2023 12:17pm October 15, 2023 1:04pm Comment on above: Take 10 mg by mouth daily at bedtime. multivitamin capsule (20 sources) Start: 05-06-2019 End: 06-25-2020 take 1 capsule by mouth once daily multivitamin capsule Discontinued 1 CAP PO DAILY May 06, 2019 3:41pm June 25, 2020 2:02pm Start: 05-06-2019 End: 06-25-2020 take 1 capsule by mouth once daily multivitamin capsule Discontinued 1 CAP PO DAILY May 05, 2019 11:00pm June 25, 2020 1:02pm Start: 05-06-2019 End: 06-25-2020 take 1 capsule by mouth once daily multivitamin capsule Discontinued 1 CAP PO DAILY May 06, 2019 12:00am June 25, 2020 2:02pm Multivitamin capsule (8 sources) Start: 05-06-2019 End: 06-25-2020 Multivitamin capsule Discont inued 1 NMA PO DAILY May 06, 2019 12:00am June 25, 2020 2:02pm Start: 05-06-2019 End: 06-25-2020 Multivitamin capsule Discont inued 1 NMA PO DAILY May 05, 2019 11:00pm June 25, 2020 1:02pm omeprazole 40 mg delayed release oral capsule (20 sources) Proton Pump Inhibitor Start: 09-03-2020 End: 01-23-2021 take 1 capsule by mouth once daily Omeprazole 40 mg capsule,delayed release(DR/EC) Discontinued 40 mg PO DAILY 90 3 September 03, 2020 3:10pm January 23, 2021 6:22pm Start: 08-24-2020 End: 09-03-2020 take 1 capsule by mouth once daily Omeprazole 20 mg capsule,delayed release(DR/EC) Discontinued 20 mg PO DAILY 90 1 August 24, 2020 4:23pm September 03, 2020 3:10pm Start: 06-22-2019 End: 06-25-2020 take 1 capsule by mouth once daily Omeprazole 40 mg capsule,delayed release(DR/EC) Discontinued 40 mg PO DAILY 90 3 June 22, 2019 12:00am June 25, 2020 1:02pm Start: 03-01-2019 End: 03-31-2023 take 2 capsules by mouth once daily before mealtime omeprazole (PRILOSEC) 20 mg capsule Take 2 capsules by mouth once daily. 1/2 hr before meal. 180 capsule 1 03/01/2019 03/31/2023 Discontinued Start: 05-18-2016 End: 05-13-2019 take 1 capsule by mouth twice daily Omeprazole 20 MG capsule Discontinued 20 mg PO TWICE A DAY May 18, 2016 12:00am May 13, 2019 10:45am Comment on above: Take 2 capsules by m outh once daily. 1/2 hr before meal. pantoprazole 40 mg delayed release oral tablet (20 sources) Proton Pump Inhibitor Start: 9 End: 9 take 1 tablet by mouth twice daily Pantoprazole 40 mg tablet,delayed release (DR/EC) Discontinued 40 mg PO TWICE A DAY 60 1 May 13, 2019 12:00am June 22, 2019 9:04am sodium chloride 0.404197 meq/mg ophthalmic ointment (20 sources) Start: 3 End: 3 Sodium Chloride 5 % ointment Discontinued 1 NMA TOPICAL DAILY 3.5 6 July 16, 2022 4:58pm September 01, 2022 10:29am Start: 05-18-2016 End: 12-09-2021 Sodium Chloride 1 APPLIC oin tment Discontinued 1 NMA TOPICAL DAILY May 18, 2016 12:00am December 09, 2021 12:48pm Start: 09-17-2012 End: 09-01-2022 Sodium Chloride 5 % ointment Discontinued 1 NMA TOPICAL DAILY December 09, 2021 12:47pm July 16, 2022 4:58pm Start: 09-17-2012 End: 03-31-2023 sodium chloride (MICHAEL 128) 5 % ophthalmic ointment Use 1 application in both eyes once daily. 0 09/17/2012 03/31/2023 Discontinued Comment on above: Use 1 application in both eyes once daily. ticagrelor 90 mg oral tablet (20 sources) Start: 08-15-19 End: 10-11-19 take 1 tablet by mouth twice daily Ticagrelor (Brilinta) 90 mg Tablet Discontinued 90 mg PO TWICE A DAY 180 3 August 15, 2022 12:00am October 10, 2022 12:33pm vardenafil 20 mg oral tablet (20 sources) Phosphodiesterase 5 Inhibitor Start: 06-23-20 End: 03-31-20 take 1 tablet by mouth once daily as needed for sleep Vardenafil (Levitra) 20 mg tablet Discontinued 20 mg PO DAILY as needed for Sleep May 05, 2019 11:00pm June 25, 2020 1:02pm Comment on above: 1 tab prn as needed zolpidem tartrate 10 mg oral tablet (20 sources) gamma-Aminobutyric Acid-ergic Agonist Start: 05-18-20 End: 01-17-20 take 1 tablet by mouth at bedtime Zolpidem 10 MG tablet Discontinued 10 mg PO AT BEDTIME May 18, 2016 12:00am June 25, 2020 1:02pm Comment on above: Take 1 tablet by giles th at bedtime as needed for up to 15 days. Problems Active Problems Problem Classification Problem Date Documented Date Episodic/Chronic Abdominal hernia (20 sources) Umbilical hernia; Translations: [Umbilical hernia without obstruction or gangrene] 05-13-2019 Episodic Acute bronchitis (20 sources) Acute bronchitis; Translations: [Acute bronchitis, unspecified] Episodic Allergic reactions (2 sources) H/O: non-drug allergy; Translations: [Other allergy status, other than to drugs and biological substances] Onset: 5 01-27-2025 Episodic Anxiety disorders (1 source) Anxiety; Translations: [Other specified anxiety disorders] 10-04-2024 Chronic Asthma (20 sources) Asthma; Translations: [Unspecified asthma, uncomplicated] Onset: 5 Chronic Calculus of urinary tract (20 sources) Recurrent kidney stone; Translations: [Calculus of kidney] Onset: 3 Resolved: 7 05-13-2019 Episodic Cataract (20 sources) Cataract; Translations: [Unspecified cataract] Chronic Chronic obstructive pulmonary disease and bronchiectasis (13 sources) Acute exacerbation of chronic obstructive airways disease; Translations: [Chronic obstructive pulmonary disease with (acute) exacerbation] Onset: 4 01-11-2023 Chronic Coagulation and hemorrhagic disorders (20 sources) Purpuric rash; Translations: [Other nonthrombocytopenic purpura] Episodic Complications of surgical procedures or medical care (2 sources) Superficial incisional surgical site infection; Translations: [Infection following a procedure, superficial incisional surgical site, initial encounter] Onset: 5 02-12-2025 Episodic Coronary atherosclerosis and other heart disease (20 sources) Coronary arteriosclerosis; Translations: [Atherosclerotic heart disease of [place] coronary artery without angina pectoris] 08-14-2022 Chronic Diabetes mellitus without complication (20 sources) Prediabetes; Translations: [Prediabetes] Onset: 1 Resolved: 7 05-13-2019 Episodic Diseases of white blood cells (20 sources) Eosinophil count raised; 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 Comment on above: Total eosinophil cou nt 376 Disorders of lipid metabolism (20 sources) Mixed hyperlipidemia; Translations: [Mixed hyperlipidemia] Onset: 0 Resolved: 7 Chronic Esophageal disorders (20 sources) Gastroesophageal reflux disease; Translations: [Gastro-esophageal reflux disease without esophagitis] Onset: 6 05-13-2019 Chronic Essential hypertension (20 sources) Hypertensive disorder; Translations: [Essential (primary) hypertension] Onset: 0 Chronic Gout and other crystal arthropathies (20 sources) Gout; Translations: [Gout, unspecified] Onset: 3 Resolved: 7 05-13-2019 Chronic Hemorrhoids (20 sources) Hemorrhoids; Translations: [Unspecified hemorrhoids] 09-02-2022 Episodic Hyperplasia of prostate (20 sources) Benign prostatic hyperplasia; Translations: [Benign prostatic hyperplasia without lower urinary tract symptoms] Onset: 5 Chronic Immunity disorders (10 sources) Hypogammaglobulinemia; Translations: [Nonfamilial hypogammaglobulinemia] Onset: 5 02-13-2023 Chronic Immunizations and screening for infectious disease (20 sources) Needs influenza immunization; Translations: [Encounter for immunization] Episodic Inflammation; infection of eye (except that caused by tuberculosis or sexually transmitteddisease) (1 source) Hordeolum externum right upper eyelid; Translations: [Hordeolum externum of right upper eyelid] Onset: Episodic Noninfectious gastroenteritis (20 sources) Gastroenteritis; Translations: [Noninfective gastroenteritis and colitis, unspecified] Episodic Nutritional deficiencies (2 sources) Vitamin D deficiency; Translations: [Vitamin D deficiency, unspecified] Onset: 5 08-26-2024 Chronic Open wounds of extremities (20 sources) Tear of skin; Translations: [Laceration without foreign body of right elbow, initial encounter] 09-02-2022 Episodic Other and unspecified benign neoplasm (8 sources) Lipoma of thigh; Translations: [Benign lipomatous neoplasm of skin and subcutaneous tissue of left leg] 08-26-2024 Episodic Other circulatory disease (20 sources) Ecchymosis; Translations: [Hemorrhage, not elsewhere classified] 09-02-2022 Episodic Other circulatory disease (16 sources) Hemorrhage, not elsewhere classified; Translations: [Other specified disorders of circulatory system] 09-02-2022 Episodic Other connective tissue disease (10 sources) Swelling of left lower limb; Translations: [Other specified soft tissue disorders] 10-22-2023 Episodic Other connective tissue disease (2 sources) Other specified soft tissue disorders; Translations: [Swelling of limb] 10-22-2023 Episodic Other diseases of veins and lymphatics (20 sources) Dependent lymphedema; Translations: [Lymphedema, not elsewhere classified] 06-10-2022 Chronic Other eye disorders (16 sources) Cataract extraction status, unspecified eye; Translations: [Cataract extraction status] 09-02-2022 Episodic Other inflammatory condition of skin (10 sources) Pruritus of skin; Translations: [Other pruritus] 10-22-2023 Episodic Other inflammatory condition of skin (2 sources) Other pruritus; Translations: [Other specified pruritic conditions] 10-22-2023 Episodic Other injuries and conditions due to external causes (4 sources) Blood blister; Translations: [Other injury of unspecified body region, initial encounter] 12-18-2024 Episodic Other lower respiratory disease (1 source) Fibrosis of lung; Translations: [Pulmonary fibrosis, unspecified] 02-13-2023 Chronic Other lower respiratory disease (20 sources) Cough; Translations: [Cough] Episodic Other lower respiratory disease (20 sources) Chronic cough; Translations: [Chronic cough] 01-29-2021 Episodic Other lower respiratory disease (20 sources) Dyspnea; Translations: [Shortness of breath] 06-02-2022 Episodic Other lower respiratory disease (20 sources) Rib pain; Translations: [Pleurodynia] 11-12-2022 Episodic Other lower respiratory disease (6 sources) Pleurodynia; Translations: [Chest pain, unspecified] 11-12-2022 Episodic Other lower respiratory disease (20 sources) Hypoxia; Translations: [Hypoxemia] 11-28-2022 Episodic Other lower respiratory disease (8 sources) Hypoxemia; Translations: [Hypoxemia] 11-28-2022 Episodic Other lower respiratory disease (3 sources) History of recurrent pneumonia; Translations: [Personal history of pneumonia (recurrent)] 02-12-2023 Episodic Other lower respiratory disease (1 source) Abnormal sputum; Translations: [Abnormal sputum] 07-29-2024 Episodic Other male genital disorders (3 sources) Swelling of scrotum ; Translations: [Other specified disorders of the male genital organs] 12-23-2024 Episodic Other nutritional; endocrine; and metabolic disorders (20 sources) Morbid obesity; Translations: [Morbid (severe) obesity due to excess calories] 05-13-2019 Chronic Other nutritional; endocrine; and metabolic disorders (20 sources) Body mass index 40+ - severely obese; Translations: [Body mass index (BMI) 40.0-44.9, adult] 05-05-2019 Chronic Other nutritional; endocrine; and metabolic disorders (20 sources) Body mass index 30+ - obesity; Translations: [Obesity, unspecified] 12-19-2020 Chronic Other nutritional; endocrine; and metabolic disorders (20 sources) Body mass index (BMI) 40.0-44.9, adult; Translations: [Body Mass Index 40.0-44.9, adult] Onset: Chronic Other nutritional; endocrine; and metabolic disorders (20 sources) Morbid (severe) obesity due to excess calories; Translations: [Morbid obesity] Chronic Other skin disorders (20 sources) Epidermoid cyst; Translations: [Epidermal cyst] Onset: 8 05-13-2019 Episodic Other skin disorders (3 sources) Easy bruising; Translations: [Other skin changes] Episodic Other skin disorders (20 sources) Mass of lower limb; Translations: [Localized swelling, mass and lump, left lower limb] 03-19-2022 Episodic Other upper respiratory disease (1 source) Chronic rhinitis; Translations: [Chronic rhinitis] 03-31-2023 Chronic Other upper respiratory disease (3 sources) Non-allergic rhinitis; Translations: [Chronic rhinitis] 08-06-2023 Chronic Other upper respiratory disease (20 sources) Bronchospasm; Translations: [Acute bronchospasm] 06-10-2022 Episodic Other upper respiratory infections (20 sources) Chronic sinusitis; Translations: [Chronic sinusitis, unspecified] Onset: 5 05-13-2019 Chronic Other upper respiratory infections (20 sources) Posterior rhinorrhea; Translations: [Postnasal drip] 05-31-2019 Episodic Pneumonia (except that caused by tuberculosis or sexually transmitted disease) (20 sources) Pneumonia; Translations: [Pneumonia, unspecified organism] 02-02-2022 Episodic Residual codes; unclassified (20 sources) Obstructive sleep apnea syndrome; Translations: [Obstructive sleep apnea (adult) (pediatric)] 05-13-2019 Chronic Comment on above: CPAP 16 cm of water with residual AHI of 0.8 Residual codes; unclassified (20 sources) Obstructive sleep apnea (adult) (pediatric); Translations: [Obstructive sleep apnea (adult)(pediatric)] Onset: Chronic Residual codes; unclassified (20 sources) Insomnia; Translations: [Insomnia, unspecified] Onset: 2 06-21-2021 Episodic Residual codes; unclassified (20 sources) History of orthopedic surgery; Translations: [Other specified postprocedural states] 08-25-2019 Episodic Comment on above: L5 disc surgery x2, C4-5 disc replacement Residual codes; unclassified (13 sources) Insomnia, unspecified; Translations: [Insomnia, unspecified] Episodic Residual codes; unclassified (20 sources) Bilateral lower limb edema; Translations: [Localized edema] 06-02-2022 Episodic Residual codes; unclassified (20 sources) Localized edema; Translations: [Edema] Episodic Residual codes; unclassified (20 sources) History of surgical procedure on mouth; Translations: [Acquired absence of other organs] 09-02-2022 Episodic Residual codes; unclassified (20 sources) History of lumbar discectomy; Translations: [Other specified postprocedural states] 09-02-2022 Episodic Comment on above: X2 Residual codes; unclassified (16 sources) Other specified postprocedural states; Translations: [Personal history of surgery to other organs] 09-02-2022 Episodic Residual codes; unclassified (20 sources) Acquired absence of other organs; Translations: [Other postprocedural status] 09-02-2022 Episodic Residual codes; unclassified (1 source) Other specified personal risk factors, not elsewhere classified; Translations: [Other specified personal history presenting hazards to health] 04-03-2024 Episodic Screening and history of mental health and substance abuse codes (2 sources) Patient encounter status; Translations: [Encounter for screening for depression] 08-26-2024 Episodic Skin and subcutaneous tissue infections (2 sources) Abscess of face; Translations: [Cutaneous abscess of face] Onset: 5 02-12-2025 Episodic Spondylosis; intervertebral disc disorders; other back problems (20 sources) Degeneration of intervertebral disc; Translations: [Degeneration of intervertebral disc] Onset: 4 05-13-2019 Chronic Spondylosis; intervertebral disc disorders; other back problems (20 sources) Thoracic back pain; Translations: [Pain in thoracic spine] 11-12-2022 Episodic Superficial injury; contusion (7 sources) Blister of scrotum without infection; Translations: [Blister (nonthermal) of scrotum and testes, initial encounter] Onset: 5 12-23-2024 Episodic Thyroid disorders (20 sources) Non-toxic uninodular goiter; Translations: [Nontoxic single thyroid nodule] Onset: 8 05-25-2018 Chronic Unclassified (20 sources) Encounter for screening for malignant neoplasm of colon; Translations: [Patient encounter status] Onset: 7 05-15-2017 Episodic Unclassified (20 sources) Abrasion of right forearm, initial encounter 08-25-2022 Unclassified (1 source) Established Patient Onset: 5 Unclassified (1 source) Degeneration of intervertebral disc of lumbar region, unspecified whether pain present; Translations: [Degeneration of intervertebral disc of lumbar region, unspecified whether pain present] Onset: 5 Unclassified (1 source) Cough, unspecified type; Translations: [Cough, unspecified type] Onset: 4 Viral infection (20 sources) Disease caused by 2019-nCoV; Translations: [COVID-19] 09-25-2022 Episodic Past or Other Problems Problem Classification Problem Date Documented Da te Episodic/Chronic Acquired foot deformities (20 sources) Talipes planus; Translations: [Flat foot [pes planus] (acquired), unspecified foot] Onset: 10-11-2010 10-11-2010 Episodic Administrative/social admission (6 sources) Persons encountering health services in other specified circumstances; Translations: [Other reasons for seeking consultation] Onset: 08-26-2024 Episodic Anal and rectal conditions (20 sources) Anal fissure; Translations: [Anal fissure, unspecified] Onset: 08-03-2006 Resolved: 10-30-2011 10-30-2011 Episodic Chronic obstructive pulmonary disease and bronchiectasis (2 sources) Bronchitis; Translations: [Bronchitis, not specified as acute or chronic] Onset: 04-22-2024 04-22-2024 Episodic Coronary atherosclerosis and other heart disease (20 sources) Presence of coronary angioplasty implant and graft; Translations: [Percutaneous transluminal coronary angioplasty status] Onset: 08-14-2022 08-15-2022 Episodic Gastrointestinal hemorrhage (20 sources) Hematochezia; Translations: [Melena] Onset: 09-11-2006 Resolved: 10-30-2011 10-30-2011 Episodic Other and unspecified benign neoplasm (4 sources) Benign lipomatous neoplasm, unspecified; Translations: [Lipoma of other specified sites] Onset: 09-30-2024 09-30-2024 Episodic Other and unspecified benign neoplasm (1 source) Benign lipomatous neoplasm of skin and subcutaneous tissue of left leg; Translations: [Lipoma of left thigh] Onset: 09-30-2024 Episodic Other injuries and conditions due to external causes (1 source) Other injury of unspecified body region, initial encounter; Translations: [Blood blister] Onset: 12-23-2024 Episodic Other lower respiratory disease (20 sources) Shortness of breath; Translations: [Shortness of breath] Onset: 12-22-2024 Episodic Other male genital disorders (1 source) Other specified disorders of the male genital organs; Translations: [Scrotal swelling] Onset: 12-23-2024 Episodic Other nutritional; endocrine; and metabolic disorders (20 sources) Obesity; Translations: [Obesity, unspecified] Onset: 11-27-2012 Resolved: 06-22-2017 06-22-2017 Chronic Other skin disorders (10 sources) Localized swelling, mass and lump, left lower limb; Translations: [Localized superficial swelling, mass, or lump] Onset: 09-30-2024 Episodic Residual codes; unclassified (20 sources) Sleep apnea; Translations: [Sleep apnea, unspecified] Onset: 10-30-2011 Resolved: 09-12-2016 07-01-2021 Chronic Unclassified (20 sources) History of Uvula removal 05-30-2019 Unclassified (3 sources) Intramuscular lipoma 09-30-2024 Results Test Name Value Interpretation Reference Range Facility [facility] 04-03-2025 [facility] Telephone ([facility]) JOAQUIN HENDRICKS ([id number]) 1950 M Date Time Provider Department 04/03/25 SPENCER VILLATORO [facility] During your visit today, we recorded the following information about you: Caridad Roland RN 04/03/2025 9:54 AM Signed Patient calls to report that he was seen in Urgent Care yesterday and was to have erythromycin eye ointment sent to [facility]'s pharmacy but wasn't. Reviewed OV notes: { 1. Hordeolum externum of right upper eyelid (H00.011) - Acute hordeolum of the right upper eyelid; likely exacerbated by seasonal allergies and eye rubbing. - Start erythromycin ophthalmic ointment. Pended. Please notify patient once order has been sent. NICOLE Andino Dominique, LABEL TACKER.CAKE ICER 04/03/2025 10:08 AM Signed Please call and let patient know ointment was sent in. Caridad Roland RN 04/03/2025 10:10 AM Signed Call placed to patient and notified. Caridad Roland RN Allergies As of Date: 04/03/2025 Noted [...] azelastine HCl (ASTEPRO ALLERGY NASAL) Use 1 Dixon in the nose as needed. - guaiFENesin [...] (PRESERVISION AREDS ORAL) Take by mouth. - B.coagul,subtilis/inulin/vi t C (CULTURELLE PROBIOTIC-PREBIOTIC ORAL) Take by mouth. - mv-mn/C/glutamin/lysin/herb 124 (AIRBORNE, ASCORBATE SODIUM, ORAL) Take by mouth. [...] ordered this encounter Disp Refills Start End ERYTHROMYC (more content not included)... Normal [facility] PSA,Total - Annual Screenon 04-03-2025 PSA,TOT SCREEN 0.26 ng/mL Normal 0.02-4.00 [facility] Comment on above: Result Comment: This test was performed using the [employer] tPSA method. Measured values of a patient??sample can vary depending on the testing procedure used. PSA values determined on patient samples by different testing procedures cannot be used interchangeably. If there is a change in PSA assays while monitoring therapy, sequential testing should be performed to confirm baseline values. Performed By: #### L [id number] #### [facility] [address] [place], [address] CNOVon 04-02-2025 CNOV Office Visit ([facility]) JOAQUIN HENDRICKS ([id number]) 1950 M Date Time Provider Department 04/02/25 9:30 AM SPENCER VILLATORO During your visit today, we recorded the following information about you: Temperature Pulse Respiration Blood pressure 98.2 degrees 67/minute 20/minute 157/79 Weight 137 kg Spencer Villatoro APRN.[facility] 04/02/2025 10:15 AM Signed [facility] [...] - Onset last night. - Describes a bump on both eyes, with soreness upon palpation. - Denies foreign body sensation. - No visual changes; describes vision as crappy bilaterally. - Suspects a stye due to [...] HISTORY OF [address] ARRINGTON PAST SURGICAL HISTORY OF eye stents for [...] azelastine HCl (ASTEPRO ALLERGY NASAL) Use 1 Dixon in the nose as needed. guaiFENesin (MUCINEX) [...] E/zinc/copper (PRESERVISION AREDS ORAL) Take by mouth. B.coagul,subtilis/inulin/vi t C (CULTURELLE PROBIOTIC-PREBIOTIC ORAL) Take by mouth. mv-mn/C/glutamin/lysin/herb 124 (AIRBORNE, ASCORBATE SODIUM, ORAL) Take by mouth. [...] 95% BMI 43.34 kg/m? Physical Exam Constitutional: Maria L (more content not included)... Normal [facility] CNOVon 02-12-2025 CNOV Office Visit (WOUCA) JOAQUIN HENDRICKS ([id number]) 1950 M Date Time Provider Department 02/12/25 12:15 PM DB FOWLER During your visit today, we recorded the following information about you: Temperature Pulse Respiration Blood pressure 98.5 degrees 88/minute 20/minute 140/84 Weight 138.3 kg Db Fowler PA-C 02/12/2025 12:32 PM Signed [facility] NOTE Wale Floyd, DO [address] [facility] [id number] Hilton Hendricks is a 74-year-old male presenting [...] HISTORY OF [address] ARRINGTON PAST SURGICAL HISTORY OF eye stents for [...] dermatology appointment scheduled for tomorrow. 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 Patient/authorized utility sales representative agreed to proceed. DERECK Chu, PADave MDM [1] Current Outpatient Medications Medication Sig [...] azelastine HCl (ASTEPRO ALLERGY NASAL) Use 1 Dixon in the nose as needed. guaiFENesin (MUCINEX) [...] E/zinc/copper (PRESERVISION AREDS ORAL) Take by mouth. B.coa (more content not included)... Normal [facility] Bilirubin directOrdered By: James Tracey on 02-08-2025 Bilirubin.direct [Mass/Vol] 0.28 mg/dL 0.00-0.30 [facility] Bilirubin, totalOrdered By: James Tracey on 02-08-2025 Bilirubin [Mass/Vol] 0.63 mg/dL 0.00-1.30 [facility] Calculated very low density lipoprotein (VLDL) cholesterol measurementOrdered By: James Tracey on 02-08-2025 Calculated very low density lipoprotein (VLDL) cholesterol measurement 14 mg/dL 5-40 [facility] LDL calc ser/plasOrdered By: James Tracey on 02-08-2025 Cholesterol in LDL [Mass/Vol] 64 mg/dL [facility] Comment on above: Zidohhiivk=335-842 m g/dL & Higher Tgtv=809 mg/dL or greaterFriedwald Equation for LDL-C Laboratory - Chemistry and C hemistry - challengeOrdered By: James Tracey on 02-08-2025 AST [Catalytic activity/Vol] 24 U/L <38 [facility] Lipid Profileon 02-08-2025 CHOL:HDL 2.50 Normal [facility] Comment on above: Performed By: #### L 500.3400, L500.4100 #### [facility] [address] [place], [place], [phone]) Cholesterol [Mass/Vol] 130 mg/dL Normal <=200 [facility] Comment on above: Result Comment: Chol esterol level, Desirable <200 mg/dL Borderline high cholesterol 200-239 mg/dL High cholesterol >=240 mg/dL Recommendations of the NCEP Adult Treatment Panel for the following risk-cutoff thresholds for the [place] population. Performed By: #### L 500.3400, L500.4100 #### [facility] [address] [place], [address] Cholesterol in HDL [Mass/Vol] 52 mg/dL Normal [facility] Comment on above: Result Comment: Ary onal Cholesterol Education Program (NCEP) guidelines: <40 mg/dL: Low HDL-cholesterol (major risk factor for CHD) >= 60 mg/dL: High HDL-cholesterol (negative risk factor for CHD) HDL-cholesterol is affected by a number of factors, e.g. smoking, exercise, hormones, sex and age. Performed By: #### L 500.3400, L500.4100 #### [facility] [address] [place], [address] Cholesterol in LDL [Mass/Vol] 64 mg/dL Normal [facility] Comment on above: Result Comment: Bord ccgvoa=084-851 mg/dL Higher Htbk=334 mg/dL or greater Friedwald Equation for LDL-C Performed By: #### L 500.3400, L500.4100 #### [facility] [address] [place], [address] Cholesterol in VLDL [Mass/Vol] 14 mg/dL Normal 5-40 [facility] Comment on above: Performed By: #### L 500.3400, L500.4100 #### [facility] [address] [place], [address] Triglyceride [Mass/Vol] 71 mg/dL Normal [facility] Comment on above: Result Comment: The drugs N-Acetylcysteine and Metamizole may falsely depress this assay. Normal range: <150 mg/dL Borderline High: 150-199 mg/dL High: 200-499 mg/dL Very High: >500 mg/dL Performed By: #### L 500.3400, L500.4100 #### [facility] [address] [place], [address] Liver Profileon 02-08-2025 Albumin [Mass/Vol] 4.2 g/dL Normal 3.4-4.8 [facility] Comment on above: Performed By: #### L 500.3400, L500.4100 #### [facility] [address] [place], [address] ALK PHOS 92 U/L Normal 40-129 [facility] Comment on above: Performed By: #### L 500.3400, L500.4100 #### [facility] [address] [place], [address] ALT [Catalytic activity/Vol] 30 U/L Normal <=46 [facility] Comment on above: Performed By: #### L 500.3400, L500.4100 #### [facility] [address] [place], [address] AST [Catalytic activity/Vol] 24 U/L Normal <=37 [facility] Comment on above: Performed By: #### L 500.3400, L500.4100 #### [facility] [address] [place], [address] Bilirubin [Mass/Vol] 0.63 mg/dL Normal 0.00-1.30 [facility] Comment on above: Performed By: #### L 500.3400, L500.4100 #### [facility] [address] [place], [address] Bilirubin.direct [Mass/Vol] 0.28 mg/dL Normal 0.00-0.30 [facility] Comment on above: Performed By: #### L 500.3400, L500.4100 #### [facility] [address] [place], [address] Globulin (S) [Mass/Vol] 2.4 g/dL Normal 2.2-4.2 [facility] Comment on above: Performed By: #### L 500.3400, L500.4100 #### [facility] [address] [place], [address] T PROT 6.6 g/dL Normal 5.9-8.4 [facility] Comment on above: Performed By: #### L 500.3400, L500.4100 #### [facility] [address] [place], [address] Screening total cholesterol/ high density lipoprotein (HDL) cholesterol ratioOrdered By: James Tracey on 02-08-2025 Cholesterol.total/Cho lesterol in HDL [Mass ratio] 2.50 {ratio} [facility] Serum globulin measurementOr dered By: James Tracey on 02-08-2025 Globulin (S) [Mass/Vol] 2.4 g/dL 2.2-4.2 [facility] Serum or plasma alanine thomas otransferase (ALT) measurementOrdered By: James Tracey on 02-08-2025 ALT [Catalytic activity/Vol] 30 U/L <47 [facility] Serum or plasma albumin anu urement (mass/volume)Ordered By: James Tracey on 02-08-2025 Albumin [Mass/Vol] 4.2 g/dL 3.4-4.8 [facility] Serum or plasma alkaline aby sphatase measurementOrdered By: James Tracey on 02-08-2025 ALP [Catalytic activity/Vol] 92 U/L 40-129 [facility] Serum or plasma cholesterol in HDL measurement (mass/volume)Ordered By: James Tracey on 02-08-2025 Cholesterol in HDL [Mass/Vol] 52 mg/dL >40 [facility] Comment on above: National Cholesterol Education Program (NCEP) guidelines:<40 mg/dL: Low HDL-cholesterol (major risk factor for CHD)>= 60 mg/dL: High HDL-cholesterol (negative risk factor for CHD)HDL-cholesterol is affected by a number of factors, e.g. smoking, exercise, hormones, sex and age. Serum or plasma cholesterol measurement (mass/volume)Ordered By: James Tracey on 02-08-2025 Cholesterol [Mass/Vol] 130 mg/dL <201 [facility] Comment on above: Cholesterol level, D esirable <200 mg/dLBorderline high cholesterol 200-239 mg/dLHigh cholesterol >=240 mg/dLRecommendations of the NCEP Adult Treatment Panel for the following risk-cutoff thresholds for the [place] population. Total proteinOrdered By: Sixto Tracey on 02-08-2025 Protein [Mass/Vol] 6.6 g/dL 5.9-8.4 [facility] Triglycerides measurementOrd ered By: James Tracey on 02-08-2025 Triglyceride [Mass/Vol] 71 mg/dL <199 [facility] Comment on above: The drugs N-Acetylcy steine and Metamizole may falsely depress this assay. Normal range: <150 mg/dLBorderline High: 150-199 mg/dLHigh: 200-499 mg/dLVery High: >500 mg/dL IgA SerPl-mCncon 02-03-2025 IgA [Mass/Vol] 122 mg/dL Normal 70-400 [facility] Comment on above: Order Comment: Speci men Type: BLOOD SPECIMENOrdering Facility: [facility] Address: [address] [place] [address] Performed By: #### 2 458-8, 2472-9, 2465-3 ####[facility] LABCLIA [id number] [place] [address] [place] IgG SerPl-mCncon 02-03-2025 IgG [Mass/Vol] 603 mg/dL Low 700-1600 [facility] Comment on above: Order Comment: Speci men Type: BLOOD SPECIMENOrdering Facility: [facility] Address: [address] [place] [address] Performed By: #### 2 458-8, 2472-9, 2465-3 ####[facility] LABIA [id number] [place] [address] [place] IgM SerPl-mCncon 02-03-2025 IgM [Mass/Vol] 53 mg/dL Normal 40-230 [facility] Comment on above: Order Comment: Speci men Type: BLOOD SPECIMENOrdering Facility: [facility] Address: [address] [place] [address] Performed By: #### 2 458-8, 2472-9, 2465-3 ####[facility] LABIA [id number] [address] [place] CNOVon 01-27-2025 CNOV Office Visit (PULMWS ) JOAQUIN HENDRICKS ([id number]) 1950 Polly Date Time Provider Department 01/27/25 9:00 AM CLICK, BRENDA M PULMWS During your visit today, we recorded the following information about you: Weight 137 kg Brenda Chaparro APRN.CAKE ICER 01/27/2025 11:41 AM Signed Pulmonary Medicine Patients name: Joaquin Canela PCP: Wale Floyd DO Recording using ambient Tenrox software for draft documentation of the visit was discussed with the patient/authorized utility sales representative; all questions welcomed and answered. Patient/authorized utility sales representative agreed to proceed CC: Asthma follow-up HPI: [...] concern. PAST MEDICAL HISTORY Diagnosis Date Asthma ([facility]) 11/21/201411/2014: DARIEL +, 20% drop in FEV1 [...] 101 0.78 102 0 PEF L/s (L/sec) 11.3 (more content not included)... Normal [facility] US DOPPLER COMPLETEon 2024 US DOPPLER COMPLETE * * *Final Report* * * DATE OF EXAM: Dec 28 2024 9:08AM [facility] 1033 - US DOPPLER COMPLETE / PROCEDURE [...] arterial and venous flow within both testes. Whipped Topping Finisher: PSCB Transcribe Date/Time: Dec 30 2024 4:56P Dictated by : SHAILESH PAT MD This examination was interpreted and the report reviewed and electronically signed by: SHAILESH PAT MD on Dec 30 2024 4:57PM EST [id number] Normal [facility] US SCROTUM AND CONTENTSon US SCROTUM AND CONTENTS * * *Final Report* * * DATE OF EXAM: Dec 28 2024 9:08AM U 1063 - US SCROTUM AND CONTENTS / [...] arterial and venous flow within both testes. Whipped Topping Finisher: [facility] Transcribe Date/Time: Dec 30 2024 4:56P Dictated by : SHAILESH PAT MD This examination was interpreted and the report reviewed and electronically signed by: SHAILESH PAT MD on Dec 30 2024 4:57PM EST [id number] Normal [facility] CBC W Auto Differential pane l (Bld)on 12-23-2024 Basophils (Bld) [#/Vol] 0.05 10*3/uL Normal <0.11 [facility] Comment on above: Order Comment: Speci men Type: BLOOD SPECIMENOrdering Facility: [facility] Address: [address] [place] [address] Performed By: #### 5 7021-8 ####[facility] LABCLIA [id number] [place] [address] [place] Basophils/100 WBC (Bld) 0.6 % Normal [facility] Comment on above: Order Comment: Speci men Type: BLOOD SPECIMENOrdering Facility: [facility] Address: [address] [place] [address] Performed By: #### 5 7021-8 ####[facility] LABCLIA [id number] [place] [address] [place] Differential cell count method Nom (Bld) Auto Normal [facility] Comment on above: Order Comment: Speci men Type: BLOOD SPECIMENOrdering Facility: [facility] Address: [address] [place] [address] Performed By: #### 5 7021-8 ####[facility] LABCLIA [id number] [place] [address] [place] Eosinophils (Bld) [#/Vol] 0.09 10*3/uL Normal <0.46 [facility] Comment on above: Order Comment: Speci men Type: BLOOD SPECIMENOrdering Facility: [facility] Address: [address] [place] [address] Performed By: #### 5 7021-8 ####[facility] LABCLIA [id number] [place] [address] [place] Eosinophils/100 WBC (Bld) 1.0 % Normal [facility] Comment on above: Order Comment: Speci men Type: BLOOD SPECIMENOrdering Facility: [facility] Address: [address] [place] [address] Performed By: #### 5 7021-8 ####[facility] LABCLIA [id number] [place] [address] [place] Erythrocyte distribution width (RBC) [Ratio] 14.7 % Normal 11.5-15.0 [facility] Comment on above: Order Comment: Speci men Type: BLOOD SPECIMENOrdering Facility: [facility] Address: [address] [place] [address] Performed By: #### 5 7021-8 ####[facility] LABCLIA [id number] [place] [id number] [place] Hematocrit (Bld) [Volume fraction] 43.8 % Normal 39.0-51.0 [facility] Comment on above: Order Comment: Speci men Type: BLOOD SPECIMENOrdering Facility: [facility] Address: [address] [place] [address] Performed By: #### 5 7021-8 ####[facility] LABCLIA [id number] [place] [address] [place] Hemoglobin (Bld) [Mass/Vol] 14.4 g/dL Normal 13.0-17.0 [facility] Comment on above: Order Comment: Speci men Type: BLOOD SPECIMENOrdering Facility: [facility] Address: [address] [place] [address] Performed By: #### 5 7021-8 ####[facility] LABCLIA [id number] [place] [address] [place] Immature granulocytes (Bld) [#/Vol] 0.03 10*3/uL Normal <0.10 [facility] Comment on above: Order Comment: Speci men Type: BLOOD SPECIMENOrdering Facility: [facility] Address: [address] [place] [address] Performed By: #### 5 7021-8 ####[facility] LABIA [id number] [place] [address] [place] Immature granulocytes/100 WBC (Bld) 0.3 % Normal [facility] Comment on above: Order Comment: Speci men Type: BLOOD SPECIMENOrdering Facility: [facility] Address: [address] [place] [address] Performed By: #### 5 7021-8 ####[facility] LABCLIA [id number] [place] [address] [place] Lymphocytes (Bld) [#/Vol] 1.68 10*3/uL Normal 1.00-4.00 [facility] Comment on above: Order Comment: Speci men Type: BLOOD SPECIMENOrdering Facility: [facility] Address: [address] [place] [address] Performed By: #### 5 7021-8 ####[facility] LABCLIA [id number] [place] [address] [place] Lymphocytes/100 WBC (Bld) 19.3 % Normal [facility] Comment on above: Order Comment: Speci men Type: BLOOD SPECIMENOrdering Facility: [facility] Address: [address] [place] [address] Performed By: #### 5 7021-8 ####[facility] LABIA [id number] [place] [address] [place] MCH (RBC) [Entitic mass] 30.3 pg Normal 26.0-34.0 [facility] Comment on above: Order Comment: Speci men Type: BLOOD SPECIMENOrdering Facility: [facility] Address: [address] [place] [address] Performed By: #### 5 7021-8 ####[facility] LABIA [id number] [place] [address] [place] MCHC (RBC) [Mass/Vol] 32.9 g/dL Normal 30.5-36.0 [facility] Comment on above: Order Comment: Speci men Type: BLOOD SPECIMENOrdering Facility: [facility] Address: [address] [place] [address] Performed By: #### 5 7021-8 ####[facility] LABIA [id number] [place] [address] [place] MCV (RBC) [Entitic vol] 92.2 fL Normal 80.0-100.0 [facility] Comment on above: Order Comment: Speci men Type: BLOOD SPECIMENOrdering Facility: [facility] Address: [address] [place] [address] Performed By: #### 5 7021-8 ####[facility] LABIA [id number] [place] [address] [place] Monocytes (Bld) [#/Vol] 0.81 10*3/uL Normal <0.87 [facility] Comment on above: Order Comment: Speci men Type: BLOOD SPECIMENOrdering Facility: [facility] Address: [address] [place] [address] Performed By: #### 5 7021-8 ####[facility] LABCLIA [id number] [facility] [place] [address] [place] Monocytes/100 WBC (Bld) 9.3 % Normal [facility] Comment on above: Order Comment: Speci men Type: BLOOD SPECIMENOrdering Facility: [facility] Address: [address] [place] [address] Performed By: #### 5 7021-8 ####[facility] LABCLIA [id number] [facility] [address], [place] [address] [place] Neutrophils (Bld) [#/Vol] 6.06 10*3/uL Normal 1.45-7.50 [facility] Comment on above: Order Comment: Speci men Type: BLOOD SPECIMENOrdering Facility: [facility] Address: [address] [place] [address] Performed By: #### 5 7021-8 ####[facility] LABCLIA [id number] [place] [address] [place] Neutrophils/100 WBC (Bld) 69.5 % Normal [facility] Comment on above: Order Comment: Speci men Type: BLOOD SPECIMENOrdering Facility: [facility] Address: [address] [place] [address] Performed By: #### 5 7021-8 ####[facility] LABCLIA [id number] [place] [address] [place] Nucleated RBC (Bld) [#/Vol] 10*3/uL Normal <0.01 [facility] Comment on above: Order Comment: Speci men Type: BLOOD SPECIMENOrdering Facility: [facility] Address: [address] [place] [address] Performed By: #### 5 7021-8 ####[facility] LABCLIA [id number] [address] [place] [address] [place] Nucleated RBC/100 WBC (Bld) [Ratio] 0.0 /100 WBC Normal [facility] Comment on above: Order Comment: Speci men Type: BLOOD SPECIMENOrdering Facility: [facility] Address: [address] [place] [address] Performed By: #### 5 7021-8 ####[facility] LABCLIA [id number] [address] [place] [address] [place] Platelet mean volume (Bld) [Entitic vol] 10.4 fL Normal 9.0-12.7 [facility] Comment on above: Order Comment: Speci men Type: BLOOD SPECIMENOrdering Facility: [facility] Address: [address] [place] [address] Performed By: #### 5 7021-8 ####[facility] LABIA [id number] [address], [place] [address] [place] Platelets (Bld) [#/Vol] 205 10*3/uL Normal 150-400 [facility] Comment on above: Order Comment: Speci men Type: BLOOD SPECIMENOrdering Facility: [facility] Address: [address] [place] [address] Performed By: #### 5 7021-8 ####[facility] LABCLIA [id number] [address] [place] [address] [place] RBC (Bld) [#/Vol] 4.75 10*6/uL Normal 4.20-6.00 [facility] Comment on above: Order Comment: Speci men Type: BLOOD SPECIMENOrdering Facility: [facility] Address: [address] [place] [address] Performed By: #### 5 7021-8 ####[facility] LABCLIA [id number] [address] [place] [address] [place] WBC (Bld) [#/Vol] 8.72 10*3/uL Normal 3.70-11.00 [facility] Comment on above: Order Comment: Speci men Type: BLOOD SPECIMENOrdering Facility: [facility] Address: [address] [place] [address] Performed By: #### 5 7021-8 ####[facility] LABCLIA [id number] [place] [address] [place] CNOVon 12-23-2024 CNOV Office Visit (FAMPWS ) JOAQUIN HENDRICKS ([id number]) 1950 M Date Time Provider Department 12/23/24 3:00 PM [facility] During your visit today, we recorded the following information about you: Pulse Respiration Blood pressure Weight 72/minute 14/minute 124/70 137.3 kg Celena Polanco APRN.CAKE ICER 12/23/2024 3:50 PM Signed This is a [...] further evaluation and management. and Recording using Katango software for draft documentation of the visit was discussed with the patient/authorized utility sales representative; all questions welcomed and answered. Patient/authorized utility sales representative agreed to proceed HISTORY OF PRESENT ILLNESS: [...] HISTORY OF [address] ARRINGTON PAST SURGICAL HISTORY OF eye stents for [...] RELIEF) 50 mcg/actuation nasal spray Use 1 Dixon in each nostril once daily. CPAP/BIPAP/OTHER CPAP [employer] azelastine HCl (ASTEPRO ALLERGY NASAL) Use 1 Dixon in the nose as needed. guaiFENesin (MUCINEX) [...] E/zinc/copper (PRESERVISION AREDS ORAL) Take by mouth. B.coagul,subtilis/inulin/vi t C (CULTURELLE PROBIOTIC-PREBIOTIC ORAL) Take by mouth. mv-mn/C/glutamin/lysin/herb 124 (AIRBOR (more content not included)... Normal [facility] CRP SerPl-mCncon 12-23-2024 CRP [Mass/Vol] mg/L Normal <0.9 [facility] Comment on above: Order Comment: Speci men Type: BLOOD SPECIMENOrdering Facility: [facility] Address: [address] [place] [address] Performed By: #### 1 988-5 ####[facility] LABCLIA [id number] [place] [address] [place] Nuclear Ab IA Ql (S)on 12-23 [place] SCR QUAL Negative Normal Negative [facility] Comment on above: Order Comment: Speci men Type: BLOOD SPECIMENOrdering Facility: [facility] Address: [address] [place] [address] Result Comment: The qualitative antinuclear antibody screen test performed using the following antigens: dsDNA, Chromatin, Ribosomal P, SS-A 60, SS-A 52, SS-B, Sm, SmRNP, CHIEF YEOMAN A, CHIEF YEOMAN 68, Scl-70, Kellie-1, and Centromere B. Methodology: Multiplex flow immunoassay. Performed By: #### 4 7383-5 ####[facility] LABCLIA [id number] [address] CNPNon 12-20-2024 CNPN Telephone (ALLMED) JOAQUIN HENDRICKS ([id number]) 1950 M Date Time Provider Department 12/20/24 ELENA DIOR During your visit today, we recorded the following information about you: Constanza Upton RN 12/20/2024 8:15 AM Signed PA COMPLETED VIA [employer] MAYES: [id number] SPECIALTY PH[facility]: [facility] RX CASE: [id number] DATES: 09-21-24 TO 12-20-25 Patient receives injections at [facility] due to medicare insurance- New script on [...] Assessed Reason for Visit: PA FOR [employer] [phone] [Other] Prescriptions as of 12/20/2024 - tezepelumab-ekko [...] RELIEF) 50 mcg/actuation nasal spray Use 1 Dixon in each nostril once daily. - CPAP/BIPAP/OTHER CPAP [employer] - azelastine HCl (ASTEPRO ALLERGY NASAL) Use 1 Dixon in the nose as needed. - guaiFENesin [...] (PRESERVISION AREDS ORAL) Take by mouth. - B.coagul,subtilis/inulin/vi t C (CULTURELLE PROBIOTIC-PREBIOTIC ORAL) Take by mouth. - mv-mn/C/glutamin/lysin/herb 124 (A[place], ASCORBATE SODIUM, ORAL) Take by mouth. [...] Encounter Status:Closed by CONSTANZA UPTON on 12/20/24 [facility] CNOVnghia 12-18-2024 CNOV Office Visit (UCWSTR ) JOAQUIN HENDRICKS ([id number]) 1950 M Date Time Provider Department 12/18/24 12:30 PM TRICIA NUÑEZ [facility] During your visit today, we recorded the following information about you: Temperature Pulse Respiration Blood pressure 98.3 degrees 81/minute 22/minute 162/82 Weight 138 kg Tricia Nuñez APRN.CAKE ICER 12/18/2024 1:33 PM Signed [facility] [...] evaluation and management. and Recording using ambient AI software for draft documentation of the visit was discussed with the patient/authorized utility sales representative; all questions welcomed and answered. Patient/authorized utility sales representative agreed to proceed MDM Procedures Allergies As [...] RELIEF) 50 mcg/actuation nasal spray Use 1 Dixon in each nostril once daily. - CPAP/BIPAP/OTHER CPAP 16 DME [facility] - azelastine HCl (ASTEPRO ALLERGY NASAL) Use 1 Dixon in the nose as needed. - guaiFENesin [...] (PRESERVISION AREDS ORAL) Take by mouth. - B.coagul,subtilis/inulin/vi t C (CULTURELLE PROBIOTIC-PREBIOTIC ORAL) Take by mouth. - mv-mn/C/glutamin/lysin/herb 124 (AIRBORNE, ASCORBATE SODIUM, ORAL) Take by mouth. [...] Insomnia [G47.00] 05/31/2012 Obesity [E66.9] 11/27/2012 06/22/2017 (more content not included)... Normal [facility] Echocardiogram study reportO rdered By: Zbigniew Arrington on 12-18-2024 Study report [facility] Cardiovascular Services [address] [place] [address] Echo Complete 12/16/24 0811 MR#: [id number] Acct: [id number] Name: JOAQUIN HENDRICKS Rep #:[id number] : 1950 74 From: Zbigniew Sanchez Attending Dr: Dr. Zbigniew Arrington MD S tatus: REG CLI Ordering Dr: Zbigniew Arrington MD Date: Location: [facility] Sex: M C Admitted: Reason For Study Reason For Study: SOB Procedure This was a 2D Doppler, Color Flow transthoracic echocardiogram. The study was technically difficult. Contrast injection was performed. Exam performed in department. Left Ventricle Normal LV size. The left ventricular ejection fraction is 60 %. Stage 1 diastolic dysfunction. No regional wall motion abnormalities noted. Right Ventricle Normal RV size. Normal systolic function. Atria The left and right atria are normal. Mitral Valve Normal mitral valve. Tricuspid Valve The tricuspid valve is not well visualized. Aortic Valve Trisinus/trileaflet aortic valve. Pulmonic Valve Normal pulmonic valve. Great Vessels Normal aortic root. The pulmonary artery is normal size. Inferior vena cava collapse with respiration. Pericardium/Pleural No pericardial effusion. Medication 22 gauge I.V. with prn adaptor inserted into right arm. Diluted definity 1ml given slow IV push to enhance endocardial definition. MMode/2D Measurements & Calculations LVIDd: 5.0 cm IVSd: 1.1 cm LVOT diam: 2.0 cm LVIDs: 3.8 cm LVPWd: 1.3 cm FS: 23.1 % LVOT area: 3.2 cm2 Ao root diam: 4.1 cm LAV(MOD-bp): 35.6 ml LVAd ap4: 39.7 cm2 LAV(MOD-bp) Indexed: 14.4 ml/m2 LVLd ap4: 9.3 cm LAV(MOD-sp2): 42.2 ml EDV(MOD-sp4): 138.8 ml LAV(MOD-sp4): 33.3 ml EDV(sp4-el): 143.8 ml LVAs ap4: 22.6 cm2 LVLs ap4: 7.8 cm ESV(MOD-sp4): 52.9 ml ESV(sp4-el): 55.3 ml EF(MOD-sp4): 61.9 % EF(sp4-el): 61.5 % SV(MOD-sp4): 85.9 ml SV(sp4-el): 88.5 ml LA A4 area: 14.0 cm2 SI(MOD-sp4): 34.8 ml/m2 LA dimension(2D): 2.8 cm RA A4 area: 11.2 cm2 Time Measurements MV dec time: 0.25 sec Doppler Measurements & Calculations MV E max karen: 68.9 cm/sec Lat Peak E' Karen: 11.6 cm/sec Med Peak E' Karen: 12.0 cm/sec MV A max karen: 92.5 cm/sec E/E' lat: 5.9 E/E' med: 5.7 MV E/A: 0.74 MV V2 max: 98.2 cm/sec MV dec slope: 280.4 cm/sec2 Ao V2 max: 117.7 cm/sec MV max P.9 mmHg Ao max P.6 mmHg MV V2 mean: 57.8 cm/sec Ao V2 mean: 87.2 cm/sec MV mean P.5 mmHg Ao mean P.4 mmHg MV V2 VTI: 37.5 cm Ao V2 VTI: 31.1 cm MVA(VTI): 2.1 cm2 AV (velocity ratio): 0.79 BARB(I,D): 2.5 cm2 BARB(V,D): 2.4 cm2 LV V1 max: 89.1 cm/sec SV(LVOT): 78.6 ml PA V2 max: 76.7 cm/sec LV V1 max P.2 mmHg LV V1 mean P.9 mmHg LV V1 mean: 63.6 cm/sec LV V1 VTI: 24.7 cm ECHO/Echo Complete Interpretation Summary The left ventricular ejection fraction is 60 %. Normal LV size. No regional wall motion abnormalities noted. Stage 1 diastolic dysfunction. Contrast injection was performed. Ordering Physician: Zbigniew Arrington Referring Physician: Zbigniew Arrington Performed By: Felicia Jones RCS 12/18/241924 Date _ Zbigniew Arrington MD CC: Dr. Zbigniew Arrington MD; DO Yamel Rendon Date Dictated: 12/16/24810 Date Transcribed: 12/18/241924 Whipped Topping Finisher: Signed [facility] Work Phone: Echo Completeon 12-16-2024 Echo Complete [facility] Cardiovascular Services [address] [place] [address] Echo Complete 12/16/24810 MR#: [id number] Acct: [id number] Name: JOAQUIN HENDRICKS Rep #: [id number] : 1950 74 From: Zbigniew Arrington MD Attending Dr: Dr. Zbigniew Arrington MD Status: REG C Ordering Dr: Zbigniew Arrington MD Date: 12/16/24 Location: [facility] Sex: M C Admitted: Reason For Study Reason For Study: SOB Procedure This was a 2D Doppler, Color Flow transthoracic echocardiogram. The study was technically difficult. Contrast injection was performed. Exam performed in department. Left Ventricle Normal LV size. The left ventricular ejection fraction is 60 %. Stage 1 diastolic dysfunction. No regional wall motion abnormalities noted. Right Ventricle Normal RV size. Normal systolic function. Atria The left and right atria are normal. Mitral Valve Normal mitral valve. Tricuspid Valve The tricuspid valve is not well visualized. Aortic Valve Trisinus/trileaflet aortic valve. Pulmonic Valve Normal pulmonic valve. Great Vessels Normal aortic root. The pulmonary artery is normal size. Inferior vena cava collapse with respiration. Pericardium/Pleural No pericardial effusion. Medication 22 gauge I.V. with prn adaptor inserted into right arm. Diluted definity 1ml given slow IV push to enhance endocardial definition. MMode/2D Measurements Calculations LVIDd: 5.0 cm IVSd: 1.1 cm LVOT diam: 2.0 cm LVIDs: 3.8 cm LVPWd: 1.3 cm FS: 23.1 % LVOT area: 3.2 cm2 Ao root diam: 4.1 cm LAV(MOD-bp): 35.6 ml LVAd ap4: 39.7 cm2 LAV(MOD-bp) Indexed: 14.4 ml/m2 LVLd ap4: 9.3 cm LAV(MOD-sp2): 42.2 ml EDV(MOD-sp4): 138.8 ml LAV(MOD-sp4): 33.3 ml EDV(sp4-el): 143.8 ml LVAs ap4: 22.6 cm2 LVLs ap4: 7.8 cm ESV(MOD-sp4): 52.9 ml ESV(sp4-el): 55.3 ml EF(MOD-sp4): 61.9 % EF(sp4-el): 61.5 % SV(MOD-sp4): 85.9 ml SV(sp4-el): 88.5 ml LA A4 area: 14.0 cm2 SI(MOD-sp4): 34.8 ml/m2 LA dimension(2D): 2.8 cm RA A4 area: 11.2 cm2 Time Measurements MV dec time: 0.25 sec Doppler Measurements Calculations MV E max karen: 68.9 cm/sec Lat Peak E' Karen: 11.6 cm/sec Med Peak E' Karen: 12.0 cm/sec MV A max karen: 92.5 cm/sec E/E' lat: 5.9 E/E' med: 5.7 MV E/A: 0.74 MV V2 max: 98.2 cm/sec MV dec slope: 280.4 cm/sec2 Ao V2 max: 117.7 cm/sec MV max P.9 mmHg Ao max P.6 mmHg MV V2 mean: 57.8 cm/sec Ao V2 mean: 87.2 cm/sec MV mean P.5 mmHg Ao mean P.4 mmHg MV V2 VTI: 37.5 cm Ao V2 VTI: 31.1 cm MVA(VTI): 2.1 cm2 AV (velocity ratio): 0.79 BARB(I,D): 2.5 cm2 BARB(V,D): 2.4 cm2 LV V1 max: 89.1 cm/sec SV(LVOT): 78.6 ml PA V2 max: 76.7 cm/sec LV V1 max P.2 mmHg LV V1 mean P.9 mmHg LV V1 mean: 63.6 cm/sec LV V1 VTI: 24.7 cm ECHO/Echo Complete Interpretation Summary The left ventricular ejection fraction is 60 %. Normal LV size. No regional wall motion abnormalities noted. Stage 1 diastolic dysfunction. Contrast injection was performed. Ordering Physician: Zbigniew Arrington Referring Physician: Zbigniew Arrington Performed By: Felicia Jones RCS 12/18/241924 Date Zbigniew Arrington MD CC: Dr. Zbigniew Arrington MD; Dr. Wale Floyd DO Date Dictated: 12/16/24810 Date Transcribed: 12/18/241924 Whipped Topping Finisher: Signed Normal [facility] Cardiology Visit Reporton Cardiology Visit Report [facility] [address] [place] [address]. [address] [place] [address] OFFICE VISIT Date of Service: 11/10/24 MR#: [id number] Acct: [id number] Name: JOAQUIN HENDRICKS Rep #: [id number] : 1950 Provider: Dr. Zbigniew Arrington MD Age/Sex: 73/M Location: [facility] Status: Signed HPI HPI History of Present Illness Details: Pleasant 73-year-old man with a history of coronary artery disease who returns for follow-up visit. He had previously been evaluated for recurrent shortness of breath. He is here for a follow-up office visit. He says that he was diagnosed with adult onset asthma and has had numerous episodes of shortness of breath as well as pneumonia. He has been seen the materials specialist and has been diagnosed with COPD, obstructive sleep apnea and asthmatic bronchitis. He has also had multiple recurrent pneumonias. He had presented in May 2022 with pneumonia and again and then also in June. He was evaluated in the emergency room and a natruretic peptide level was done which was noted to be 21. His other blood work was noted to be normal. A CT scan of his chest demonstrated no evidence of pulmonary emboli but there was possible pneumonia as well as calcification of his coronary anatomy. He had had a previous echo performed in 2019 which demonstrated an ejection fraction of 65% with inability to measure the right ventricular systolic pressures. More recent echocardiogram performed in [place] demonstrated an ejection fraction of 50 to 60% right ventricular systolic pressure of 18 mild left atrial enlargement and no evidence of pulmonary hypertension. He continues to have shortness of breath with activity as well as difficulty breathing. He has been sent here for further evaluation and management and to exclude cardiac disease. His blood flow screening performed in June 2022 demonstrated mild to moderate disease noted in the carotid artery, ankle-brachial indices were noted to be normal. 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 His lipid profile was decent with a total cholesterol of 121, HDL of 56 and LDL of 50. He underwent a right and left heart catheterization on 08/14/2022 that showed moderately severe mid LAD disease with mild calcification. He underwent drug- eluting stent to mid LAD. He has since been taken off the clopidogrel. He denies chest, arm, jaw, or neck discomfort. He denies palpitations. He states intermittent, bilateral lower extremity edema that he attributes to diet. He denies claudication. He continues with shortness of breath with activity. He denies shortness of breath at rest, orthopnea, or PND. He continues with productive cough. He denies significant, sudden weight gain. He denies lightheadedness, dizziness, near-syncope, or syncope. He denies blood in urine, blood in stool, or epistaxis. He denies fever with chills. He denies myalgia. He denies fatigue. His exercise level has remained stable. 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 Accompanied by: Self Is patient in pain?: No Allergies lisinopril Adverse Reaction (Intermediate, Verified 11/10/24 14:55) cough simvastatin Adverse Reaction (Intermediate, Verified 11/10/24 14:55) elevated liver enzymes Medications ???Medication ???Instructions ???Recorded ???Confirmed ???Type multivitamin 1 tab PO DAILY 09/19/20 11/10/24 H istory PEP device #1 ea 06/12/22 11/10/24 Rx trazodone 100 mg tablet 100 mg PO QHS PRN insomnia 90 days 07/16/22 11/10/24 Rx #40 tabs albuterol sulfate 90 mcg/actuation 2 puff inhalation Q4H PRN 11/10/24 Rx aerosol inhaler (Ventolin HFA) shortness of breath or wheezing #18 grams albuterol sulfate 2.5 mg/3 mL 2.5 mg (3 mL) inhalation .COMPLEX 09/24/22 11/10/24 Rx (0.083 %) solution for nebulization Sob /Or Wheezing #180 mL ipratropium bromide 42 mcg (0.06 1 spray intranasal BID PRN 3 11/10/24 History %) nasal spray allergies tezepelumab-ekko 210 mg/1.91 mL 210 mg (1.91 mL) subcut Q4W #1.91 11/28/22 11/10/24 Rx (110 mg/mL) subcutaneous pen mL injector (Tezspire) loratadine 10 mg tablet 10 mg PO DAILY #90 tabs 02/02/23 0 11/10/24 Rx rosuvastatin 5 mg tablet 2.5 mg (1/2 x 5 mg) PO QODAY #90 0 07/27/23 11/10/24 Rx tabs fluticasone propionate 50 2 spray intranasal DAILY #3 ea 01/2611/10/24 Rx mcg/actuation nasal spray,suspension allopurinol 300 mg tablet 300 mg PO DAILY #90 tabs 10/15/23 11/10/24 Rx lansoprazole 30 mg capsule,delayed 30 (more content not included)... [facility] 10-10-2024 [facility] JOAQUIN HENDRICKS ([id number]) 1950 M Date Time Provider Department 10/10/24 AURELIA HODGE During your visit today, we recorded the following information about you: Laurence Miles 10/10/2024 1:41 PM Signed pt returned your call. [phone] Aurelia Hodge PA-C 10/12/2024 2:20 PM Signed [...] RELIEF) 50 mcg/actuation nasal spray Use 1 Dixon in each nostril once daily. - CPAP/BIPAP/OTHER CPAP 16 DME [facility] - azelastine HCl (ASTEPRO ALLERGY NASAL) Use 1 Dixon in the nose as needed. - guaiFENesin [...] (PRESERVISION AREDS ORAL) Take by mouth. - B.coagul,subtilis/inulin/vi t C (CULTURELLE PROBIOTIC-PREBIOTIC ORAL) Take by mouth. - mv-mn/C/glutamin/lysin/herb 124 (AIRBORNE, ASCORBATE SODIUM, ORAL) Take by mouth. [...] nodule [E04.1] 05/25/2018 Epithelial inclusion cyst [L72.0] 1 (more content not included)... Normal [facility] MR Thigh - left WO and W con trast Ines 10-05-2024 IMPRESSION: Stable lipomatous masses of the left pectineus and vastus lateralis muscles measuring up to 7 cm. No suspicious features. Incidental intramuscular lipomatous masses of the right thigh measuring up to 4.7 cm also without suspicious features. Other incidental findings as above. Whipped Topping Finisher: PENNY Transcribe Date/Time: Oct 05 2024 12:01P Dictated by : HAILEY BENNETT MD This examination was interpreted and the report reviewed and electronically signed by: ANJU RAY MD on Oct 05 2024 4:06PM [facility] DIVISION OF RADIOLOGY * * *Final Report* * * DATE OF EXAM: Oct 05 2024 10:20AM [facility] 0261 - MRI UPPER LEG WO/W IVCON [...] tears with right acetabular paralabral cysts. Large sozhv-db-weax images of the tendons and joints are otherwise within normal limits. Localizer images: No significant additional findings. DIVISION OF RADIOLOGY Provider, [facility] - 10/05/2024 * * *Final Report* * * DATE OF EXAM: Oct 05 2024 10:20AM [facility] 0261 - MRI UPPER LEG WO/W IVCON [...] tears with right acetabular paralabral cysts. Large eclzf-ar-sfnl images of the tendons and joints are otherwise within normal limits. Localizer images: No significant additional findings. IMPRESSION IMPRESSION: Stable lipomatous masses of the left pectineus and vastus lateralis muscles measuring up to 7 cm. No suspicious features. Incidental intramuscular lipomatous masses of the right thigh measuring up to 4.7 cm also without suspicious features. Other incidental findings as above. Whipped Topping Finisher: PSCB Transcribe Date/Time: Oct 05 2024 12:01P Dictated by : HAILEY BENNETT MD This examination was interpreted and the report reviewed and electronically signed by: ANJU RAY MD on Oct 05 2024 4:06PM EST [facility] Radiology Study observation (narrative) [facility] MR Thigh - left WO and W con trast IVOrdered By: Ccf Provider on 10-05-2024 [facility] MRI UPPER LEG WO/W IVCON LTo n 10-05-2024 MRI UPPER LEG WO/W IVCON LT * * *Final Report* * * DATE OF EXAM: Oct 05 2024 10:20AM [facility] 0261 - MRI UPPER LEG WO/W IVCON [...] tears with right acetabular paralabral cysts. Large bkgyh-rb-puyb images of the tendons and joints are otherwise within normal limits. Localizer images: No significant additional findings. IMPRESSION: Stable lipomatous masses of the left pectineus and vastus lateralis muscles measuring up to 7 cm. No suspicious features. Incidental intramuscular lipomatous masses of the right thigh measuring up to 4.7 cm also without suspicious features. Other incidental findings as above. Whipped Topping Finisher: PENNY Transcribe Date/Time: Oct 05 2024 12:01P Dictated by : HAILEY BENNETT MD This examination was interpreted and the report reviewed and electronically signed by: ANJU RAY MD on Oct 05 2024 4:06PM EST [id number] Normal [facility] [place] [facility] Telephone ([facility]) JOAQUIN HENDRICKS ([id number]) 1950 M Date Time Provider Department 10/03/24 [facility] During your visit today, we recorded the following information about you: Polly Bourne RN 10/03/2024 11:10 AM Signed Pt reports he is scheduled for an MRI this week on Thu. Asking if provider could send an Rx to help take the edge off for him to complete the MRI. Philly Gee. Please advise pt. [phone] Fang Mayen APRN.CNP 10/04/2024 7:26 AM Signed The following approved medication requests have been transmitted electronically. Requested Prescriptions Signed Prescriptions Disp Refills ALPRAZolam (XANAX) 0.25 mg tablet 2 tablet 0 Sig: Take 1 tablet by mouth 30 minutes prior to MRI, may repeat in 15-20 minutes if necessary. Authorizing Provider: FANG MAYEN APRN.CAKE ICER PDMP website checked and validated. All prescriptions have been APPROPRIATELY filled. No suspicious activity was identified. 10/04/2024 by Fang Mayen CNP. Monserrat Ferreira LPN 10/04/2024 10:58 AM Signed Phoned patient aware rx sent to pharmacy per Nedra Mayen SENIOR TEST ENGINEER and for him not to be driving [...] noted on 08/26/24 Gabby Holiday, MA - fluticasone (FLONASE ALLERGY RELIEF) 50 mcg/actuation nasal spray Use 1 Dixon in each nostril once daily. - CPAP/BIPAP/OTHER CPAP 16 DME [facility] - azelastine HCl (ASTEPRO ALLERGY NASAL) Use 1 Dixon in the nose as needed. - guaiFENesin [...] (PRESERVISION AREDS ORAL) Take by mouth. - B.coagul,subtilis/inulin/vi t C (CULTURELLE PROBIOTIC-PREBIOTIC ORAL) Take by mouth. - mv-mn/C/glutamin/lysin/herb 124 (AIRBORNE, ASCORBATE SODIUM, ORAL) Take by mouth. [...] [K21.9] Nephrolithiasis [N20.0] 06/22/2017 Mixed hyperlipidemia [E78.2] Obstructi (more content not included)... Normal [facility] XR FEMUR 2V AP/LAT LTon 03-3 XR FEMUR 2V AP/LAT LT * * *Final Report* * * DATE [...] AND KNEE JOINT. NO ACUTE BONY ABNORMALITY. 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 Whipped Topping Finisher: [facility] Transcribe Date/Time: Oct 07 2024 7:21P Dictated by : ASHVIN SQUIRES MD This examination was interpreted and the report reviewed and electronically signed by: ASHVIN SQUIRES MD on Oct 07 2024 7:22PM EST [id number] Normal [facility] CNOVon 09-30-2024 CNOV Office Visit (ORTHCF ) JOAQUIN HENDRICKS ([id number]) 1950 M Date Time Provider Department 09/30/24 1:30 PM AURELIA HODGE [facility] During your visit today, we recorded the [...] Unfortunately, there is no effective way to numb the area or the nerves causing your [...] In the meantime, you may continue using zuoj-yyn-uwwfcgu treatments like Voltaren cream or Tylenol PM [...] neck surgery disc PAST SURGICAL HISTORY OF (more content not included)... Normal [facility] CNOVon 09-19-2024 CNOV Office Visit (GENSWS ) JOAQUIN HENDRICKS ([id number]) 1950 M Date Time Provider Department 09/19/24 4:00 PM HARI ADEN During your visit today, we recorded the following information about you: Temperature Pulse Blood pressure Weight 97.7 degrees 80/minute 156/76 135.8 kg Hari Aden MD 10/05/2024 12:40 PM Signed HISTORY AND PHYSICAL Joaquin Hendricks 1950 REFERRING PHYSICIAN: Fang Mayen APRN* CHIEF COMPLAINT: Consult HPI: The patient is a 73 year old male with a complaint of Umbilical hernia as well as a lipoma on his left thigh. Patient has had this hernia for some time was seen by a surgeon in [place] was told that he needed to lose [...] HISTORY OF [address] ARRINGTON PAST SURGICAL HISTORY OF eye stents for [...] RELIEF) 50 mcg/actuation nasal spray Use 1 Dixon in each nostril once daily. CPAP/BIPAP/OTHER CPAP 16 DME [employer] azelastine HCl (ASTEPRO ALLERGY NASAL) Use 1 Dixon in the nose as needed. guaiFENesin (MUCINEX) [...] E/zinc/copper (PRESERVISION AREDS ORAL) Take by mouth. B.coagul,subtilis/inulin/vi t C (CULTURELLE PROBIOTIC-PREBIOTIC ORAL) Take by mouth. mv-mn/C/glutamin/lysin/herb 124 (AIRBORNE, ASCORBATE SODIUM, ORAL) Take by mouth. [...] REVIEW OF SYMPTOMS: The review of systems (more content not included)... Normal [facility] 25([facility]D3 [facility] 25-hydroxyvitamin D3 [Mass/Vol] 37.3 ng/mL Normal 31.0-80.0 [facility] Comment on above: Order Comment: Speci men Type: BLOOD SPECIMENOrdering Facility: [facility] Address: [address] [place] [address] Result Comment: Clas sification of 25 [place] Vitamin D status: Deficiency/Insufficiency: < or = 30 ng/ml. Sufficiency/Optimal Levels: 31-80 ng/mL Toxicity: > 100 ng/mL. Test performed by chemiluminescent immunoassay. Performed By: #### 1 989-3 ####[facility] LABCLIA [id number] [place] [address] [place] CBC panel Auto (Bld)on 08-26 Erythrocyte distribution width (RBC) [Ratio] 14.1 % Normal 11.5-15.0 [facility] Comment on above: Order Comment: Speci men Type: BLOOD SPECIMENOrdering Facility: [facility] Address: [address] [place] [address] Performed By: #### 5 8410-2 ####[facility] LABIA [id number] [place] [address] [place] Hematocrit (Bld) [Volume fraction] 47.4 % Normal 39.0-51.0 [facility] Comment on above: Order Comment: Speci men Type: BLOOD SPECIMENOrdering Facility: [facility] Address: [address] [place] [address] Performed By: #### 5 8410-2 ####[facility] LABIA [id number] [place] [address] [place] Hemoglobin (Bld) [Mass/Vol] 15.1 g/dL Normal 13.0-17.0 [facility] Comment on above: Order Comment: Speci men Type: BLOOD SPECIMENOrdering Facility: [facility] Address: [address] [place] [address] Performed By: #### 5 8410-2 ####[facility] LABIA [id number] [place] [address] [place] MCH (RBC) [Entitic mass] 29.5 pg Normal 26.0-34.0 [facility] Comment on above: Order Comment: Speci men Type: BLOOD SPECIMENOrdering Facility: [facility] Address: [address] [place] [address] Performed By: #### 5 8410-2 ####[facility] LABIA [id number] [place] [address] [place] MCHC (RBC) [Mass/Vol] 31.9 g/dL Normal 30.5-36.0 [facility] Comment on above: Order Comment: Speci men Type: BLOOD SPECIMENOrdering Facility: [facility] Address: [address] [place] [address] Performed By: #### 5 8410-2 ####[facility] LABIA [id number] [place] [address] [place] MCV (RBC) [Entitic vol] 92.8 fL Normal 80.0-100.0 [facility] Comment on above: Order Comment: Speci men Type: BLOOD SPECIMENOrdering Facility: [facility] Address: [address] [place], [place] [address] Performed By: #### 5 8410-2 ####[facility] LABIA [id number] [place] [address] [place] Nucleated RBC (Bld) [#/Vol] 10*3/uL Normal <0.01 [facility] Comment on above: Order Comment: Speci men Type: BLOOD SPECIMENOrdering Facility: [facility] Address: [address] [place] [address] Performed By: #### 5 8410-2 ####[facility] LABIA [id number] [place] [address] [place] Platelet mean volume (Bld) [Entitic vol] 10.6 fL Normal 9.0-12.7 [facility] Comment on above: Order Comment: Speci men Type: BLOOD SPECIMENOrdering Facility: [facility] Address: [address] [place] [address] Performed By: #### 5 8410-2 ####[facility] LABCLIA [id number] [place] [address] [place] Platelets (Bld) [#/Vol] 213 10*3/uL Normal 150-400 [facility] Comment on above: Order Comment: Speci men Type: BLOOD SPECIMENOrdering Facility: [facility] Address: [address] [place] [address] Performed By: #### 5 8410-2 ####[facility] LABCLIA [id number] [place] [address] [place] RBC (Bld) [#/Vol] 5.11 10*6/uL Normal 4.20-6.00 [facility] Comment on above: Order Comment: Speci men Type: BLOOD SPECIMENOrdering Facility: [facility] Address: [address] [place] [address] Performed By: #### 5 8410-2 ####[facility] LABCLIA [id number] [place] [address] [place] WBC (Bld) [#/Vol] 7.61 10*3/uL Normal 3.70-11.00 [facility] Comment on above: Order Comment: Speci men Type: BLOOD SPECIMENOrdering Facility: [facility] Address: [address] [place] [address] Performed By: #### 5 8410-2 ####[facility] LABCLIA [id number] [place] [address] [place] CNCOon 08-26-2024 CNCO Letter Text Normal [facility] CNOVon 08-26-2024 CNOV Office Visit (FAMPWS ) JOAQUIN HENDRICKS ([id number]) 1950 M Date Time Provider Department 08/26/24 10:40 AM FANG MAYEN FAMPWS During your visit today, we recorded the following information about you: Pulse Respiration Blood pressure Weight 63/minute 16/minute 126/78 136 kg Fang Mayen APRN.CAKE ICER 08/26/2024 2:35 PM Signed Chief Complaint Patient presents with: Establish Care HPI Joaquin Gilberto Hendricks is a 73 year old male who presents here today for Above Complaints.. Dr. Ramos and Dr. Dior manages asthma. States this is well-managed GERD - managed well with prevacid Glaucoma - Sees eye doctor regularly at [facility] with Dr. Salazar. Gout- well under control, [...] and hearing-aid tests Hyperlipidemia - diet is not great. States he consumes a lot of calories. [...] HISTORY OF [address] [place] PAST SURGICAL HISTORY OF eye stents for [...] RELIEF) 50 mcg/actuation nasal spray Use 1 Dixon in each nostril once daily. CPAP/BIPAP/OTHER CPAP 16 DME [employer] azelastine HCl (ASTEPRO ALLERGY NASAL) Use 1 Dixon in the nose as needed. guaiFENesin (MUCINEX) [...] E/zinc/copper (PRESERVISION AREDS ORAL) Take by mouth. B.coagul,subtilis/inulin/vi t C (CULTURELLE PROBIOTIC-PREBIOTIC ORAL) Take by mouth. mv-mn/C/glutamin/lysin/herb 124 (AIRBORNE, ASCORBATE SODIUM, ORAL) Take by mouth. [...] Take 0.8 mg by mouth once daily. kaykay (more content not included)... Normal [facility] metabolic 2000 panelon 08-26-2024 Albumin [Mass/Vol] 4.7 g/dL Normal 3.9-4.9 [facility] Comment on above: Order Comment: Speci men Type: BLOOD SPECIMENOrdering Facility: [facility] Address: [address] [place] [address] Performed By: #### 2 132-9, 3016-3, 68417-2 ####[facility] LABCLIA [id number] [place] [address] [place] ALP [Catalytic activity/Vol] 93 U/L Normal 38-113 [facility] Comment on above: Order Comment: Speci men Type: BLOOD SPECIMENOrdering Facility: [facility] Address: [address] [place] [address] Performed By: #### 2 132-9, 3016-3, 91083-4 ####[facility] LABCLIA [id number] [place] [address] [place] ALT [Catalytic activity/Vol] 30 U/L Normal 10-54 [facility] Comment on above: Order Comment: Speci men Type: BLOOD SPECIMENOrdering Facility: [facility] Address: [address] [place] [address] Performed By: #### 2 132-9, 3016-3, 37087-7 ####[facility] LABCLIA [id number] [place] [address] [place] Anion gap [Moles/Vol] 13 mmol/L Normal 8-15 [facility] Comment on above: Order Comment: Speci men Type: BLOOD SPECIMENOrdering Facility: [facility] Address: [address] [place] [address] Performed By: #### 2 132-9, 3016-3, 99305-3 ####[facility] LABCLIA [id number] [place] [address] [place] AST [Catalytic activity/Vol] 30 U/L Normal 14-40 [facility] Comment on above: Order Comment: Speci men Type: BLOOD SPECIMENOrdering Facility: [facility] Address: [address] [place] [address] Performed By: #### 2 132-9, 3015-3, ####[facility] LABCLIA [id number] [address] [address] [place] Bilirubin [Mass/Vol] 0.7 mg/dL Normal 0.2-1.3 [facility] Comment on above: Order Comment: Speci men Type: BLOOD SPECIMENOrdering Facility: [facility] Address: [address] [place], [place] [address] Performed By: #### 2 132-9, 3, ####[facility] LABCLIA [id number] [place] [address] [place] Calcium [Mass/Vol] 10.3 mg/dL High 8.5-10.2 [facility] Comment on above: Order Comment: Speci men Type: BLOOD SPECIMENOrdering Facility: [facility] Address: [address] [place] [address] Performed By: #### 2 132-9, 3, ####[facility] LABCLIA [id number] [address] [address] [place] Chloride [Moles/Vol] 103 mmol/L Normal 98-107 [facility] Comment on above: Order Comment: Speci men Type: BLOOD SPECIMENOrdering Facility: [facility] Address: [address] [place] [address] Performed By: #### 2 132-9, 3, ####[facility] LABCLIA [id number] [address] [address] [place] CO2 [Moles/Vol] 24 mmol/L Normal 22-30 [facility] Comment on above: Order Comment: Speci men Type: BLOOD SPECIMENOrdering Facility: [facility] Address: [address] [place] [id number] Performed By: #### 2 132-9, 3016-3, 08345-0 ####[facility] LABIA [id number] [place] [address] [place] Creatinine [Mass/Vol] 0.99 mg/dL Normal 0.73-1.22 [facility] Comment on above: Order Comment: Speci men Type: BLOOD SPECIMENOrdering Facility: [facility] Address: [address] [place] [address] Performed By: #### 2 132-9, 3016-3, 44629-0 ####[facility] [id number] [place] [address] [place] Creatinine and Glomerular filtration rate.predicted panel (S/P/Bld) 81 mL/min/1.73m??? Normal >=60 [facility] Comment on above: Order Comment: Ifeanyii men Type: BLOOD SPECIMENOrdering Facility: [facility] Address: [address] [place] [address] Result Comment: Shira mated Glomerular Filtration Rate (eGFR) is calculated using the 2020 CKD-EPI creatinine equation. This equation utilizes serum creatinine, sex, and age as parameters. The creatinine assay has traceable calibration to isotope dilution-mass spectrometry. Refer to KDIGO guidelines for clinical interpretation. In patients with unstable renal function, e.g. those with acute kidney injury, the eGFR may not accurately reflect actual GFR. Performed By: #### 2 132-9, 6-3, 79347-2 ####[facility] LABIA [id number] [place] [address] [place] Glucose [Mass/Vol] 103 mg/dL High 74-99 [facility] Comment on above: Order Comment: Mart men Type: BLOOD SPECIMENOrdering Facility: [facility] Address: [address] [place] [address] Result Comment: The [place] Diabetes Association (ADA) provides guidance for cutoff [...] Standards of Medical Care in Diabetes 2016, [place] Diabetes Association. Diabetes Care. 2016.39(Suppl 1). Performed By: #### 2 132-9, 3016-3, 72740-4 ####[facility] LABIA [id number] [place] [address] [place] Potassium [Moles/Vol] 4.4 mmol/L Normal 3.7-5.1 [facility] Comment on above: Order Comment: Speci men Type: BLOOD SPECIMENOrdering Facility: [facility] Address: [address] [place] [address] Performed By: #### 2 132-9, 6-3, ####[facility] LABIA [id number] [place] [address] [place] Protein [Mass/Vol] 7.2 g/dL Normal 6.3-8.0 [facility] Comment on above: Order Comment: Speci men Type: BLOOD SPECIMENOrdering Facility: [facility] Address: [address] [place] [address] Performed By: #### 2 132-9, 3016-3, 06324-9 ####[facility] LABIA [id number] [place] [address] [place] Sodium [Moles/Vol] 140 mmol/L Normal 136-144 [facility] Comment on above: Order Comment: Speci men Type: BLOOD SPECIMENOrdering Facility: [facility] Address: [address] [place] [address] Performed By: #### 2 132-9, 3016-3, 98884-5 ####[facility] LABCLIA [id number] [place] [address] [place] Urea nitrogen [Mass/Vol] 17 mg/dL Normal 9-24 [facility] Comment on above: Order Comment: Speci men Type: BLOOD SPECIMENOrdering Facility: [facility] Address: [address] [place] [address] Performed By: #### 2 132-9, 3016-3, 35512-8 ####[facility] LABCLIA [id number] [place] [address] [place] HbA1c (Bld)on 08-26-2024 Average glucose Estimated from glycated hemoglobin (Bld) [Mass/Vol] 108 mg/dL Normal [facility] Comment on above: Order Comment: Speci men Type: BLOOD SPECIMENOrdering Facility: [facility] Address: [address] [place] [address] Result Comment: eAG: (Estimated average glucose) is a calculated value from HgbA1c and is utility sales representative of the average blood glucose level in the last 2-3 month period. Performed By: #### 5 5454-3 ####[facility] LABCLIA [id number] [place] [address] [place] HbA1c (Bld) [Mass fraction] 5.4 % Normal 4.3-5.6 [facility] Comment on above: Order Comment: Speci men Type: BLOOD SPECIMENOrdering Facility: [facility] Address: [address] [place] [address] Result Comment: [place] Diabetes Association guidelines indicate that patients with HgbA1c in the range 5.7-6.4% are at increased risk for development of diabetes, and intervention by lifestyle modification may be beneficial. HgbA1c greater or equal to 6.5% is considered diagnostic of diabetes. Performed By: #### 5 5454-3 ####[facility] LABCLIA [id number] [place] [address] [place] TSH SerPl-aCncon 08-26-2024 TSH Qn 2.870 m[IU]/L Normal 0.270-4.200 [facility] Comment on above: Order Comment: Speci men Type: BLOOD SPECIMENOrdering Facility: [facility] Address: [address] [place] [address] Performed By: #### 2 132-9, 3016-3, 72948-0 ####[facility] LABCLIA [id number] [place] [address] [place] Vit B12 SerPl-mCncon 025 Cobalamin (Vitamin B12) [Mass/Vol] 409 pg/mL Normal 232-1245 [facility] Comment on above: Order Comment: Speci men Type: BLOOD SPECIMENOrdering Facility: [facility] Address: [address] [place] [address] Performed By: #### 2 132-9, 3016-3, 71503-6 ####[facility] LABCLIA [id number] [place] [address] [place] Hepatic function 2000 panelo n 08-10-2024 Albumin [Mass/Vol] 4.2 g/dL Normal 3.9-4.9 [facility] Comment on above: Order Comment: Speci men Type: BLOOD SPECIMENOrdering Facility: [facility] Address: [address] [place] [address] [place] [place] [address] Performed By: #### 2 4325-3, 64474-6 ####[facility] LABCLIA [id number] [place] [address] [place] ALP [Catalytic activity/Vol] 93 U/L Normal 38-113 [facility] Comment on above: Order Comment: Speci men Type: BLOOD SPECIMENOrdering Facility: [facility] Address: [address] [place] [address] Performed By: #### 2 4325-3, 05373-9 ####[facility] LABCLIA [id number] [place] [address] [place] ALT [Catalytic activity/Vol] 25 U/L Normal 10-54 [facility] Comment on above: Order Comment: Speci men Type: BLOOD SPECIMENOrdering Facility: [facility] Address: [facility] [place] [address] Performed By: #### 2 4325-3, 91768-5 ####[facility] LABCLIA [id number] [place] [address] [place] AST [Catalytic activity/Vol] 19 U/L Normal 14-40 [facility] Comment on above: Order Comment: Speci men Type: BLOOD SPECIMENOrdering Facility: [facility] Address: [address] [place], [place] [address] [place] [id number] Performed By: #### 2 4325-3, 10349-1 ####[facility] LABCLIA [id number] [place] [address] [place] Bilirubin [Mass/Vol] 0.8 mg/dL Normal 0.2-1.3 [facility] Comment on above: Order Comment: Speci men Type: BLOOD SPECIMENOrdering Facility: [facility] Address: [address] [place], [place] [address], [place] [phone] Performed By: #### 2 4325-3, 24822-7 ####[facility] LABCLIA [id number] [place] [address] [place] Bilirubin.conjugated [Mass/Vol] 0.3 mg/dL High <0.3 [facility] Comment on above: Order Comment: Speci men Type: BLOOD SPECIMENOrdering Facility: [facility] Address: [address] [place], [place] [address], [place] [address] Performed By: #### 2 4325-3, 00474-4 ####[facility] LABCLIA [id number] [place] [address] [place] Protein [Mass/Vol] 6.5 g/dL Normal 6.3-8.0 [facility] Comment on above: Order Comment: Speci men Type: BLOOD SPECIMENOrdering Facility: [facility] Address: [address] [place] [address] Performed By: #### 2 4325-3, 71972-0 ####[facility] LABCLIA [id number] [address] [address] [place] IgA SerPl-mCncon 08-10-2024 IgA [Mass/Vol] 104 mg/dL Normal 70-400 [facility] Comment on above: Order Comment: Speci men Type: BLOOD SPECIMENOrdering Facility: [facility] Address: [address] [place] [address] Performed By: #### 2 465-3, 2388-8, 9489 ####[facility] LABCLIA [id number] [place] [address] [place] IgG SerPl-mCncon 08-10-2024 IgG [Mass/Vol] 558 mg/dL Low 700-1600 [facility] Comment on above: Order Comment: Speci men Type: BLOOD SPECIMENOrdering Facility: [facility] Address: [address] [place] [address] Performed By: #### 2 465-3, 7434-8, 9019 ####[facility] LABIA [id number] [place] [address] [place] IgM SerPl-mCncon 08-10-2024 IgM [Mass/Vol] 54 mg/dL Normal 40-230 [facility] Comment on above: Order Comment: Speci men Type: BLOOD SPECIMENOrdering Facility: [facility] Address: [address] [place] [address] Performed By: #### 2 465-3, 7510-8, 1089 ####[facility] LABCLIA [id number] [address] [address] [place] Lipid 1996 panelon Cholesterol [Mass/Vol] 123 mg/dL Normal <200 [facility] Comment on above: Order Comment: Speci men Type: BLOOD SPECIMENOrdering Facility: [facility] Address: [address] [place] [place] [place] [address] Result Comment: <200 mg/dL, Desirable 200-239 mg/dL, Borderline high >239 mg/dL, High Performed By: #### 2 4325-3, 49244-0 ####[facility] LABCLIA [id number] [address] [address] [place] Cholesterol in HDL [Mass/Vol] 46 mg/dL Normal >39 [facility] Comment on above: Order Comment: Speci men Type: BLOOD SPECIMENOrdering Facility: [facility] Address: [address] [place] [address] Result Comment: 40-5 9 mg/dL, Acceptable >59 mg/dL, High: Negative risk factor for coronary heart disease <40 mg/dL, Low: Positive risk factor for coronary heart disease Performed By: #### 2 4325-3, 04345-6 ####[facility] LABCLIA [id number] [address] [address] [place] Cholesterol in LDL [Mass/Vol] 60 mg/dL Normal <100 [facility] Comment on above: Order Comment: Ifeanyii men Type: BLOOD SPECIMENOrdering Facility: [facility] Address: [address] [place] [address] Result Comment: <100 mg/dL, Optimal 100-129 mg/dL, Near optimal/above optimal 130-159 mg/dL, Borderline high 160-189 mg/dL, High >189 mg/dL, Very high Secondary prevention optimal LDL Cholesterol levels are recommended to be < 70 mg/dL Performed By: #### 2 4325-3, 36046-8 ####[facility] LABCLIA [id number] [address] [address] [place] Cholesterol in LDL/Cholesterol in HDL [Mass ratio] 1.30 {ratio} Normal <2.54 [facility] Comment on above: Order Comment: Speci men Type: BLOOD SPECIMENOrdering Facility: [facility] Address: [address] [place] [address] Result Comment: Bea ellison: 1. National Cholesterol Education Program ATP III Guideline At-A-Glance Quick Desk Reference: National Heart, Lung, and Blood [place]. National Institutes of Health. 2001: NIH Publication No. 01-3305. 2. An International Atherosclerosis Society position paper: global recommendations for the management of dyslipidemia: executive summary, Atherosclerosis. 2014: 232(2):410-413. Performed By: #### 2 4325-3, 19527-3 ####[facility] LABCLIA [id number] [place] [address] [place] Cholesterol in VLDL [Mass/Vol] 17 mg/dL Normal <30 [facility] Comment on above: Order Comment: Speci men Type: BLOOD SPECIMENOrdering Facility: [facility] Address: [address] [place], [place] [address] [place] [address] Performed By: #### 2 4325-3, 48248-0 ####[facility] LABIA [id number] [place] [address] [place] Cholesterol non HDL [Mass/Vol] 77 mg/dL Normal <130 [facility] Comment on above: Order Comment: Speci men Type: BLOOD SPECIMENOrdering Facility: [facility] Address: [address] [place] [address] [address] [place] [address] Result Comment: <130 mg/dL, Optimal 130-159 mg/dL, Near optimal/above optimal 160-189 mg/dL, Borderline high 190-219 mg/dL, High >219 mg/dL, Very high Secondary prevention optimal non HDL Cholesterol levels are recommended to be <100 mg/dL Performed By: #### 2 4325-3, 72506-7 ####[facility] LABIA [id number] [place] [address] [place] Cholesterol.total/Cho lesterol in HDL [Mass ratio] 2.67 {ratio} Normal <5.10 [facility] Comment on above: Order Comment: Speci men Type: BLOOD SPECIMENOrdering Facility: [facility] Address: [address], [place] [address] Performed By: #### 2 4325-3, 00679-4 ####[facility] LABCLIA [id number] [place] [address] [place] FASTING TIME 12 hrs Normal [facility] Comment on above: Order Comment: Speci men Type: BLOOD SPECIMENOrdering Facility: [facility] Address: [address], [place] [address] Performed By: #### 2 4325-3, 71758-3 ####[facility] LABCLIA [id number] [place] [address] [place] Triglyceride [Mass/Vol] 83 mg/dL Normal <150 [facility] Comment on above: Order Comment: Speci men Type: BLOOD SPECIMENOrdering Facility: [facility] Address: [address], [place] [address] Result Comment: <150 mg/dL, Normal 150-199 mg/dL, Borderline high 200-499 mg/dL, High >499 mg/dL, Very high Performed By: #### 2 4325-3, 73480-9 ####[facility] LABCLIA [id number] [place] [address] [place] CNOVon 08-05-2024 CNOV Office Visit (MAURI ) JOAQUIN HENDRICKS ([id number]) 1950 M Date Time Provider Department 08/05/24 3:00 PM TAYLOR PIERCE During your visit today, we recorded the following information about you: Pulse Blood pressure Weight 90/minute 134/80 135.8 kg Taylor Pierce APRN.CAKE ICER 08/05/2024 3:55 PM Signed [facility] New Patient Evaluation PATIENT NAME: Joaquin Hendricks DATE OF SERVICE: August 04, 2024 CONSULTING PROVIDER: No referring provider defined for this encounter. REASON FOR VISIT: CARMELLA HPI: Joaquin Hendricks is a 73 year old male. Sleep-related history: CARMELLA, needs to establish with a new sleep provider. Used to be followed at [facility] for asthma and CARMELLA but now sees Pulm Dr Ramos here at . DME [facility] On CPAP for years, no issues with [...] 11 am to 4 pm. 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 [...] day are sorted in reverse-chronological order 07/29/2024 [place] Sleepiness Scale Score 10 (No clinically significant [...] HISTORY OF [address] [place] PAST SURGICAL HISTORY OF eye sten (more content not included)... Normal [facility] CNOVon 07-29-2024 CNOV Office Visit (PULMWS ) JOAQUIN HEDNRICKS ([id number]) 1950 M Date Time Provider Department 07/29/24 10:30 AM SHABANA RAMOS PULMWS During your visit today, we recorded the following information about you: Pulse Respiration Blood pressure Weight 87/minute 13/minute 132/82 137.4 kg Height 1.759 m Shabana Ramos MD 07/29/2024 1:09 PM Signed . Respiratory [place] Note Patient name: Joaquin Hendricks PCP: Art [...] sputum sample even with sputum induction at [facility]. Presents today for follow up. Recent [...] E/zinc/copper (PRESERVISION AREDS ORAL) Take by mouth. B.coagul,subtilis/inulin/vi t C (CULTURELLE PROBIOTIC-PREBIOTIC ORAL) Take by mouth. mv-mn/C/glutamin/lysin/herb 124 (AIRBORNE, ASCORBATE SODIUM, ORAL) Take by mouth. tamsulosin (FLOMAX) 0.4 mg Take 0.8 mg by mouth once daily. ipratropium bromide (ATROVENT) 42 mcg (0.06 %) nasal spray Use 2 Sprays in the nose as needed. (Patient not taking: Reported on 07/29/2024) rosuvastatin (CRESTOR) 5 mg tablet Take 0.5 table (more content not included)... Normal [facility] NITRIC OXIDE, EXHALEDon 07-07 Reece Bolanos RPF T 07/29/2024 9:57 AM RESPIRATORY THERAPY ORAL EXHALED NITRIC OXIDE SERVICE [...] DATE: July 29, 2024 TIME: 9:56 AM [facility] SPIROMETRY - BASELINE AND PO ST DILATORon 07-29-2024 FEF25% POST (L/S) 8.44 L[facility] FEF25% PRE (L/S) 7.37 L[facility] OCI96-69% LLN (L/S) 0.96 L/S [place] [facility] [id number]% POST (L/S) 3.28 L/S [facility] BIU11-73% PRE (L/S) 3.25 L/S [facility] land [facility] JRZ75-89% PREDICTED (L/S) 2.28 L/S [facility] FEF75% LLN (L/S) 0.22 [facility] FEF75% POST (L/S) 0.94 L[facility] FEF75% PRE (L/S0 0.86 L[facility] FEF75% PREDICTED (L/S) 0.60 L/S [facility] FEF75% ULN (L/S) 1.59 [facility] FET POST (S) 10.64 S [facility] FET PRE (S) 13.18 S [facility] FEV1 LLN (L) 2.12 L [facility] FEV1 PRE (L) 3.49 L [facility] FEV1 PREDICTED (L) 2.91 L [facility] FEV1 ULN (L) 3.65 L [facility] FEV1/FVC LLN (%) 63 % [facility] FEV1/FVC POST (%) 78 % [facility] FEV1/FVC PRE (%) 78 % [facility] FEV1/FVC PREDICTED (%) 77 % [facility] FEV1_POST (L) 3.52 L [facility] FVC LLN (L) 2.87 L [facility] FVC POST (L) 4.51 L [facility] FVC PRE (L) 4.48 L [facility] FVC PREDICTED (L) 3.87 L [facility] FVC ULN (L) 4.88 L [facility] PEF LLN (L/S) 5.65 L/S [facility] PEF POST (L/S) 10.62 L/S [facility] PEF PRE (L/S) 11.35 L/S [facility] PEF ULN (L/S) 10.18 L/S [facility] [address] [facility], [place] [address] Test Date: 2024-07-29 Pat Name: JOAQUIN HENDRICKS Department: Room: 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 No contraindications or sensitivities were noted. Meds taken: Advair, Spiriva 1.5 /hours before testing. Current ATS/ERS acceptability and repeatability standards for spirometry met. Start of test and EOFE criteria met. 2 puffs Albuterol (180 mcg) delivered by MDI via holding chamber. HR pre = 87/min, HR post = 87/min. IMPRESSION: Spirometry is normal. Negative bronchodilator response. Electronically Signed On 07-29-2024 13:24:43 EST by Shabana Ramos MD ID: [id number] Name: JOAQUIN HENDRICKS Race: White Ht: 69.25 in Wt: 303.00 lbs Age: 73 Gender: Male : 1950 Dx: Severe persistent asthma, uncomplicated Smoking Hx: Non-smoker Doctor: ELENA DIOR Test Date: 07/29/2024 Site: [facility] Tech: Reece Bolanos PRE-BRONCH POST-BRONCH Pre LLN Pred ULN %Pred [...] 0.89 -20 FIVC (L) 4.40 4.50 2 ZHJ55-26 (L/sec) 3.25 0.96 2.28 4.17 142 3.28 143 0 Time (sec) 13.18 10.64 -19 FET PEF (sec) 0.11 0.09 -14 JUANJOSE (L) 0.18 0.22 22 Vol Extrap % (%) 4 5 22 Comments: Medications and Allergies were reviewed for possible drug interactions per policy. No contraindications or sensitivities were noted. Meds taken: Advair, Spiriva 1.5 /hours before testing. Current ATS/ERS acceptability and repeatability standards for spirometry met. Start of test and EOFE criteria met. 2 puffs Albuterol (180 mcg) delivered by MDI via holding chamber. HR pre = 87/min, HR post = 87/min. PULMONARY FUNCTION LAB [facility] Bacteria Spec Resp Culton Bacteria identified Respiratory culture Nom (Unsp spec) ORGANISM ID: 1 Rare Aspergillus fumigatus By MALDI TOF Mass Spectrometry. ORGANISM ID: 2 Moderate normal respiratory fortino GRAM STAIN: Rare Mixed oral fortino No Polymorphonuclear Leukocytes Abnormal [facility] Comment on above: Performed By: #### 3 2355-0, 39547-3 ####[facility] LABCLIA [id number] [address] [facility] Microorganism Spec Culton Microorganism identified Cx Nom (Unsp spec) ORGANISM ID: 1 Mycobacterium intracellulare / Mycobacterium chimaera group By MALDI TOF Mass Spectrometry. Susceptibility is not routinely performed, please contact Microbiology within 4 weeks if susceptibility testing is clinically indicated. AFB STAIN: No acid fast bacilli seen by flurochrome stain Abnormal [facility] Comment on above: Performed By: #### 3 2355-0, 49552-7 ####[facility] LABCLIA [id number] [place] [id number] [place] CBC W Auto Differential pane l (Bld)on 04-13-2024 Basophils (Bld) [#/Vol] [facility] Basophils/100 WBC (Bld) 0.1 % [facility] Differential cell count method Nom (Bld) Auto [facility] Eosinophils (Bld) [#/Vol] [facility] Eosinophils/100 WBC (Bld) 0.0 % [facility] Erythrocyte distribution width (RBC) [Ratio] 14.4 % 11.5 - 15.0 % [facility] Hematocrit (Bld) [Volume fraction] 45.0 % 39.0 - 51.0 % [facility] Hemoglobin (Bld) [Mass/Vol] 14.9 g/dL 13.0 - 17.0 g/dL [facility] Immature granulocytes (Bld) [#/Vol] 0.07 10*3/uL [facility] Immature granulocytes/100 WBC (Bld) 0.8 % [facility] Interpretation and review of laboratory results Abnormal [facility] Lymphocytes (Bld) [#/Vol] 0.84 10*3/uL Low [facility] Lymphocytes/100 WBC (Bld) 9.2 % [facility] MCH (RBC) [Entitic mass] 30.2 pg 26.0 - 34.0 pg [facility] MCHC (RBC) [Mass/Vol] 33.1 g/dL 30.5 - 36.0 g/dL [facility] MCV (RBC) [Entitic vol] 91.1 fL 80.0 - 100.0 fL [facility] Monocytes (Bld) [#/Vol] 0.20 10*3/uL [facility] Monocytes/100 WBC (Bld) 2.2 % [facility] Neutrophils (Bld) [#/Vol] 8.01 10*3/uL High [facility] Neutrophils/100 WBC (Bld) 87.7 % [facility] Nucleated RBC (Bld) [#/Vol] [facility] Nucleated RBC/100 WBC (Bld) [Ratio] 0.0 % /100 WBC [facility] Platelet mean volume (Bld) [Entitic vol] 10.2 fL 9.0 - 12.7 fL [facility] Platelets (Bld) [#/Vol] 227 10*3/uL [facility] RBC (Bld) [#/Vol] 4.94 10*6/uL 4.20 - 6.0 0 m/uL [facility] WBC (Bld) [#/Vol] 9.13 10*3/uL [facility] Basophils (Bld) [#/Vol] 10*3/uL Normal <0.11 [facility] Comment on above: Order Comment: Speci men Type: BLOOD SPECIMENOrdering Facility: [facility] Address: [address] [place] [address] Performed By: #### 5 7021-8 ####[facility] LABCLIA [id number] [place] [address] [place] Basophils/100 WBC (Bld) 0.1 % Normal [facility] Comment on above: Order Comment: Speci men Type: BLOOD SPECIMENOrdering Facility: [facility] Address: [address] [place] [address] Performed By: #### 5 7021-8 ####[facility] LABCLIA [id number] [place] [address] [place] Differential cell count method Nom (Bld) Auto Normal [facility] Comment on above: Order Comment: Speci men Type: BLOOD SPECIMENOrdering Facility: [facility] Address: [address] [place] [address] Performed By: #### 5 7021-8 ####[facility] LABCLIA [id number] [place] [address] [place] Eosinophils (Bld) [#/Vol] 10*3/uL Normal <0.46 [facility] Comment on above: Order Comment: Speci men Type: BLOOD SPECIMENOrdering Facility: [facility] Address: [address] [place] [address] Performed By: #### 5 7021-8 ####[facility] LABCLIA [id number] [place] [address] [place] Eosinophils/100 WBC (Bld) 0.0 % Normal [facility] Comment on above: Order Comment: Speci men Type: BLOOD SPECIMENOrdering Facility: [facility] Address: [address] [place] [address] Performed By: #### 5 7021-8 ####[facility] LABIA [id number] [place] [address] [place] Erythrocyte distribution width (RBC) [Ratio] 14.4 % Normal 11.5-15.0 [facility] Comment on above: Order Comment: Speci men Type: BLOOD SPECIMENOrdering Facility: [facility] Address: [address] [place] [address] Performed By: #### 5 7021-8 ####[facility] LABIA [id number] [place] [address] [place] Hematocrit (Bld) [Volume fraction] 45.0 % Normal 39.0-51.0 [facility] Comment on above: Order Comment: Speci men Type: BLOOD SPECIMENOrdering Facility: [facility] Address: [address] [place] [address] Performed By: #### 5 7021-8 ####[facility] LABIA [id number] [place] [address] [place] Hemoglobin (Bld) [Mass/Vol] 14.9 g/dL Normal 13.0-17.0 [facility] Comment on above: Order Comment: Speci men Type: BLOOD SPECIMENOrdering Facility: [facility] Address: [address] [place] [address] Performed By: #### 5 7021-8 ####[facility] LABIA [id number] [place] [address] [place] Immature granulocytes (Bld) [#/Vol] 0.07 10*3/uL Normal <0.10 [facility] Comment on above: Order Comment: Speci men Type: BLOOD SPECIMENOrdering Facility: [facility] Address: [address] [place] [address] Performed By: #### 5 7021-8 ####[facility] LABCLIA [id number] [place] [address] [place] Immature granulocytes/100 WBC (Bld) 0.8 % Normal [facility] Comment on above: Order Comment: Speci men Type: BLOOD SPECIMENOrdering Facility: [facility] Address: [address] [place] [address] Performed By: #### 5 7021-8 ####[facility] LABCLIA [id number] [place] [address] [place] Lymphocytes (Bld) [#/Vol] 0.84 10*3/uL Low 1.00-4.00 [facility] Comment on above: Order Comment: Speci men Type: BLOOD SPECIMENOrdering Facility: [facility] Address: [address] [place] [address] Performed By: #### 5 7021-8 ####[facility] LABIA [id number] [place] [address] [place] Lymphocytes/100 WBC (Bld) 9.2 % Normal [facility] Comment on above: Order Comment: Speci men Type: BLOOD SPECIMENOrdering Facility: [facility] Address: [address] [place] [address] Performed By: #### 5 7021-8 ####[facility] LABIA [id number] [place] [address] [place] MCH (RBC) [Entitic mass] 30.2 pg Normal 26.0-34.0 [facility] Comment on above: Order Comment: Speci men Type: BLOOD SPECIMENOrdering Facility: [facility] Address: [address] [place] [address] Performed By: #### 5 7021-8 ####[facility] LABCLIA [id number] [place] [address] [place] MCHC (RBC) [Mass/Vol] 33.1 g/dL Normal 30.5-36.0 [facility] Comment on above: Order Comment: Speci men Type: BLOOD SPECIMENOrdering Facility: [facility] Address: [address] [place] [address] Performed By: #### 5 7021-8 ####[facility] LABCLIA [id number] [place] [address] [place] MCV (RBC) [Entitic vol] 91.1 fL Normal 80.0-100.0 [facility] Comment on above: Order Comment: Speci men Type: BLOOD SPECIMENOrdering Facility: [facility] Address: [address] [place] [address] Performed By: #### 5 7021-8 ####[facility] LABIA [id number] [place] [address] [place] Monocytes (Bld) [#/Vol] 0.20 10*3/uL Normal <0.87 [facility] Comment on above: Order Comment: Speci men Type: BLOOD SPECIMENOrdering Facility: [facility] Address: [address] [place] [address] Performed By: #### 5 7021-8 ####[facility] LABIA [id number] [place] [address] [place] Monocytes/100 WBC (Bld) 2.2 % Normal [facility] Comment on above: Order Comment: Speci men Type: BLOOD SPECIMENOrdering Facility: [facility] Address: [address] [place] [address] Performed By: #### 5 7021-8 ####[facility] LABIA [id number] [place] [address] [place] Neutrophils (Bld) [#/Vol] 8.01 10*3/uL High 1.45-7.50 [facility] Comment on above: Order Comment: Speci men Type: BLOOD SPECIMENOrdering Facility: [facility] Address: [address] [place] [address] Performed By: #### 5 7021-8 ####[facility] LABCLIA [id number] [place] [address] [place] Neutrophils/100 WBC (Bld) 87.7 % Normal [facility] Comment on above: Order Comment: Speci men Type: BLOOD SPECIMENOrdering Facility: [facility] Address: [address] [place] [address] Performed By: #### 5 7021-8 ####[facility] LABCLIA [id number] [place] [address] [place] Nucleated RBC (Bld) [#/Vol] 10*3/uL Normal <0.01 [facility] Comment on above: Order Comment: Speci men Type: BLOOD SPECIMENOrdering Facility: [facility] Address: [address] [place] [address] Performed By: #### 5 7021-8 ####[facility] LABIA [id number] [place] [address] [place] Nucleated RBC/100 WBC (Bld) [Ratio] 0.0 /100 WBC Normal [facility] Comment on above: Order Comment: Speci men Type: BLOOD SPECIMENOrdering Facility: [facility] Address: [address] [place] [address] Performed By: #### 5 7021-8 ####[facility] LABIA [id number] [place] [address] [place] Platelet mean volume (Bld) [Entitic vol] 10.2 fL Normal 9.0-12.7 [facility] Comment on above: Order Comment: Speci men Type: BLOOD SPECIMENOrdering Facility: [facility] Address: [address] [place] [address] Performed By: #### 5 7021-8 ####[facility] LABCLIA [id number] [place] [address] [place] Platelets (Bld) [#/Vol] 227 10*3/uL Normal 150-400 [facility] Comment on above: Order Comment: Speci men Type: BLOOD SPECIMENOrdering Facility: [facility] Address: [address] [place] [address] Performed By: #### 5 7021-8 ####[facility] LABIA [id number] [place] [address] [place] RBC (Bld) [#/Vol] 4.94 10*6/uL Normal 4.20-6.00 [facility] Comment on above: Order Comment: Speci men Type: BLOOD SPECIMENOrdering Facility: [facility] Address: [address] [place] [address] Performed By: #### 5 7021-8 ####[facility] LABIA [id number] [place] [address] [place] WBC (Bld) [#/Vol] 9.13 10*3/uL Normal 3.70-11.00 [facility] Comment on above: Order Comment: Speci men Type: BLOOD SPECIMENOrdering Facility: [facility] Address: [address] [place] [address] Performed By: #### 5 7021-8 ####[facility] LABIA [id number] [place] [address] [place] CNOVon 04-13-2024 CNOV Office Visit (PULMWS ) JOAQUIN HENDRICKS ([id number]) 1950 Polly Date Time Provider Department 04/13/24 3:30 PM BRENDA CHAPARRO PULMWS During your visit today, we recorded the following information about you: Pulse Respiration Blood pressure Weight 80/minute 18/minute 132/82 135.6 kg Brenda Chaparro APRN.WAYNE 04/13/2024 4:44 PM Signed Pulmonary Medicine Patients [...] therapy consists of Advair, Tezspire (receiving at [facility] infusion center due to insurance reasons), daily azithromycin and albuterol as needed. He was seen by Dr. Ramos on 02/25/24 and was stepped down on therapy d/t stability in symptoms. Spiriva was stopped at that time with a plan to taper down on Azithromycin if he was doing well. He developed a sore throat 04/03 and was seen at [facility] a few days later with negative for [...] labs, radiographs and available pulmonary function testing PF (more content not included)... Normal [facility] XR CHEST 2V FRONTAL/LATon XR CHEST 2V FRONTAL/LAT * * *Final Report* * * DATE [...] spinal fusion. IMPRESSION: No acute radiographic abnormality. Whipped Topping Finisher: PENNY Transcribe Date/Time: Apr 13 2024 4:59P Dictated by : DONALD HARTLEY MD This examination was interpreted and the report reviewed and electronically signed by: DONALD HARTLEY MD on Apr 13 2024 5:00PM EST [id number] Normal [facility] XR Chest PA and Lateralon IMPRESSION: No acute radiographic abnormality. Whipped Topping Finisher: [employer] Transcribe Date/Time: Apr 13 2024 4:59P Dictated by : DONALD HARTLEY MD This examination was interpreted and the report reviewed and electronically signed by: DONALD HARTLEY MD on Apr 13 2024 5:00PM EST DIVISION OF RADIOLOGY * * *Final Report* * * DATE OF EXAM: Apr 13 2024 4:43PM [id number] - XR CHEST 2V FRONTAL/LAT / PROCEDURE REASON: Cough, unspecified type * * * * Physician Interpretation * * * * EXAMINATION: CHEST RADIOGRAPH (2 VIEW FRONTAL & LATERAL) CLINICAL HISTORY: Cough, unspecified type MQ: XC2_6 EXAM DATE/TIME: 04/13/2024 4:43 PM COMPARISON: Chest x-ray on 07/18/2016 RESULT: Lines, tubes, and devices: None. Lungs and pleura: No consolidation. No lung mass. No pleural effusion. No pneumothorax. Cardiomediastinal silhouette: Stable cardiac silhouette, with tortuosity of the thoracic aorta. Bones and soft tissues: The spine shows degenerative changes. Status post cervical spinal fusion. DIVISION OF RADIOLOGY Provider, [facility] - 04/13/2024 * * *Final Report* * * DATE OF EXAM: Apr 13 2024 4:43PM [id number] - XR CHEST 2V FRONTAL/LAT / PROCEDURE REASON: Cough, unspecified type * * * * Physician Interpretation * * * * EXAMINATION: CHEST RADIOGRAPH (2 VIEW FRONTAL & LATERAL) CLINICAL HISTORY: Cough, unspecified type MQ: XC2_6 EXAM DATE/TIME: 04/13/2024 4:43 PM COMPARISON: Chest x-ray on 07/18/2016 RESULT: Lines, tubes, and devices: None. Lungs and pleura: No consolidation. No lung mass. No pleural effusion. No pneumothorax. Cardiomediastinal silhouette: Stable cardiac silhouette, with tortuosity of the thoracic aorta. Bones and soft tissues: The spine shows degenerative changes. Status post cervical spinal fusion. IMPRESSION IMPRESSION: No acute radiographic abnormality. Whipped Topping Finisher: [employer] Transcribe Date/Time: Apr 13 2024 4:59P Dictated by : DONALD HARTLEY MD This examination was interpreted and the report reviewed and electronically signed by: DONALD HARTLEY MD on Apr 13 2024 5:00PM EST [facility] Radiology Study observation (narrative) [facility] XR Chest PA and LateralOrder ed By: [facility] Provider on 04-13-2024 [facility] Damon 04-11-2024 CNPN Telephone (itravel) JOAQUIN HENDRICKS ([id number]) 1950 M Date Time Provider Department 04/11/24 ELENA DIOR During your visit today, we recorded the following information about you: Barbara Mzt 04/11/2024 12:07 PM Signed Pt scheduled lab [...] Reason for Visit: Orders [681] Primary Visit Diagnosis:Hypogammaglobulin emia (HCC) [D80.1] Order(s):IMMUNOGLOBULIN G [SQIGG] Order #: [id number] FUTURE IMMUNOGLOBULIN A [SQIGA] Order #: [id number] FUTURE IMMUNOGLOBULIN M [SQIGM] Order #: [id number] FUTURE Prescriptions as of 04/12/2024 - calcium carbonate (CALCIUM 500 ORAL) Take by mouth. - vit A/vit C/vit E/zinc/copper (PRESERVISION AREDS ORAL) Take by mouth. - B.coagul,subtilis/inulin/vi t C (CULTURELLE PROBIOTIC-PREBIOTIC ORAL) Take by mouth. - mv-mn/C/glutamin/lysin/herb 124 ([place], ASCORBATE SODIUM, ORAL) Take by mouth. [...] Encounter Status:Closed by CONSTANZA UPTON on 04/12/24 Normal [facility] STREP A MOLECULAR (POC)on Procedural Control Valid [facility] Strep A (POCT) Negative Negative [facility] No Panel Informationon 05-18 [facility] Laboratory - Hematology and Cell countson 05-07-2023 HbA1c (Bld) [Mass fraction] 5.4 % 4.2-6.3 [facility] Immunodeficiency panel FC (B ld)on 04-02-2023 CD3 cells (Bld) [#/Vol] 1201 cells/uL 958 - 2,388 cells/uL [facility] CD3 cells/100 cells (Bld) 71 % 60 - 89 % [facility] CD3+CD4+ (T4 helper) cells (Bld) [#/Vol] 1011 cells/uL 533 - 1,674 cells/uL [facility] CD3+CD4+ (T4 helper) cells/100 cells (Bld) 60 % 34 - 61 % [facility] CD3+CD4+ (T4 helper) cells/CD3+CD8+ (T8 suppressor cells) cells (Bld) [# ratio] 5.36 % High 1.10 - 3.25 [facility] CD3+CD8+ (T8 suppressor cells) cells (Bld) [#/Vol] 189 cells/uL 175 - 958 cells/uL [facility] CD3+CD8+ (T8 suppressor cells) cells/100 cells (Bld) 11 % 10 - 41 % [facility] CD3-CD16+CD56+ (Natural killer) cells (Bld) [#/Vol] 400 cells/uL 102 - 565 cells/uL [facility] CD3-CD16+CD56+ (Natural killer) cells/100 cells (Bld) 24 % 5 - 25 % [facility] CD3-CD19+ cells (Bld) [#/Vol] 81 cells/uL 75 - 660 cells/uL [facility] CD3-CD19+ cells/100 cells (Bld) 5 % 5 - 22 % [facility] CBC W Auto Differential pane l (Bld)on 04-01-2023 Basophils (Bld) [#/Vol] 0.03 10*3/uL <0.11 k/uL [facility] Basophils/100 WBC (Bld) 0.5 % [facility] Differential cell count method Nom (Bld) Auto [facility] Eosinophils (Bld) [#/Vol] 0.06 10*3/uL <0.46 k/uL [facility] Eosinophils/100 WBC (Bld) 1.0 % [facility] Erythrocyte distribution width (RBC) [Ratio] 14.7 % 11.5 - 15.0 % [facility] Hematocrit (Bld) [Volume fraction] 44.4 % 39.0 - 51.0 % [facility] Hemoglobin (Bld) [Mass/Vol] 14.2 g/dL 13.0 - 17.0 g/dL [facility] Immature granulocytes (Bld) [#/Vol] 0.03 10*3/uL <0.10 k/uL [facility] [facility] [place] Immature granulocytes/100 WBC (Bld) 0.5 % [facility] Lymphocytes (Bld) [#/Vol] 1.60 10*3/uL 1.00 - 4.00 k/uL [facility] Lymphocytes/100 WBC (Bld) 27.7 % [facility] MCH (RBC) [Entitic mass] 30.1 pg 26.0 - 34.0 pg [facility] MCHC (RBC) [Mass/Vol] 32.0 g/dL 30.5 - 36.0 g/dL [facility] MCV (RBC) [Entitic vol] 94.3 fL 80.0 - 100.0 fL [facility] Monocytes (Bld) [#/Vol] 0.55 10*3/uL <0.87 k/uL [facility] Monocytes/100 WBC (Bld) 9.5 % [facility] Neutrophils (Bld) [#/Vol] 3.51 10*3/uL 1.45 - 7.50 k/uL [facility] Neutrophils/100 WBC (Bld) 60.8 % [facility] Nucleated RBC (Bld) [#/Vol] <0.01 k/uL [facility] Nucleated RBC/100 WBC (Bld) [Ratio] 0.0 /100 WBC [facility] Platelet mean volume (Bld) [Entitic vol] 10.1 fL 9.0 - 12.7 fL [facility] Platelets (Bld) [#/Vol] 211 10*3/uL 150 - 400 k/uL [facility] RBC (Bld) [#/Vol] 4.71 10*6/uL 4.20 - 6.0 0 m/uL [facility] WBC (Bld) [#/Vol] 5.78 10*3/uL 3.70 - 11.00 k/uL [facility] IGA BLDon 02-12-2023 IgA [Mass/Vol] 125 mg/dL 70 - 400 mg/dL [facility] IGGon 02-12-2023 IgG [Mass/Vol] 565 mg/dL Low 700 - 1,600 mg/dL [facility] IGMon 02-12-2023 IgM [Mass/Vol] 58 mg/dL 40 - 230 mg/dL [facility] No Panel Informationon 01-16 [facility] SPIROMETRY WITH DILATOR IF O BSTRUCTEDon 01-16-2023 HEH24-70% PRE (L/S) 2.23 L/S [facility] FEV1 PRE (L) 3.08 L [facility] FEV1/FVC PRE (%) 73 % [facility] FVC PRE (L) 4.21 L [facility] PEF PRE (L/S) 8.88 L/S [facility] Absolute lymphocyte countOrd ered By: Pa Wilson on 01-13-2023 Lymphocytes Auto (Unsp spec) [#/Vol] 0.64 10*3/uL 0.83-4.51 [facility] Basophil percentageOrdered B y: Pa Wilson on 01-13-2023 Basophils/100 WBC (Bld) 0.2 % 0-1 [facility] Eosinophils/100 WBC (Bld) 0.0 % 0-5 [facility] Neutrophils (Bld) [#/Vol] 10.7 10*3/uL 2.0-7.7 [facility] Neutrophils/100 WBC (Bld) 89.4 % 47-70 [facility] WBC (Bld) [#/Vol] 12.0 10*3/uL 4.4-11.0 [facility] Blood erythrocytes count (nu mber/volume)Ordered By: Pa Wilson on 01-13-2023 RBC (Bld) [#/Vol] 4.24 10*6/uL 4.6-6.2 [facility] Blood hemoglobin measurement (mass/volume)Ordered By: Pa Wilson on 01-13-2023 Hemoglobin (Bld) [Mass/Vol] 12.7 g/dL 13.0-16.5 [facility] Blood lymphocytes/100 leukoc ytesOrdered By: Pa Wilson on 01-13-2023 Lymphocytes/100 WBC (Bld) 5.4 % 19-41 [facility] Blood monocytes/100 leukocyt esOrdered By: Pa Wilson on 01-13-2023 Monocytes/100 WBC (Bld) 4.0 % 0-10 [facility] Blood platelet mean volumeOr dered By: Pa Wilson on 01-13-2023 Platelet mean volume (Bld) [Entitic vol] 10.4 fL 6.2-12.0 [facility] Determination of erythrocyte mean corpuscular volume (MCV)Ordered By: Pa Wilson on 01-13-2023 MCV (RBC) [Entitic vol] 90.8 fL 80-94 [facility] Hematocrit Auto (Bld) [Volum e fraction]Ordered By: Pa Wilson on 01-13-2023 Hematocrit (Bld) [Volume fraction] 38.5 % 40-54 [facility] Laboratory - Hematology and Cell countsOrdered By: Pa Wilson on 01-13-2023 Erythrocyte distribution width (RBC) [Entitic vol] 52.8 fL 35.1-43.9 [facility] Erythrocyte distribution width (RBC) [Ratio] 16.0 % 11.6-14.6 [facility] Immature granulocytes/100 WBC (Bld) 1.000 % 0.0-0.9 [facility] Comment on above: IG% - Immature Granu locytes (promyelocytes, myelocytes and metamyelocytes) > 1% indicates that a LEFT SHIFT is Present. MCH (RBC) [Entitic mass] 30.0 pg 27.0-32.0 [facility] Nucleated RBC/100 WBC (Bld) [Ratio] 0 % 0-5 [facility] MCHC Auto (RBC) [Mass/Vol]Or dered By: Pa Wilson on 01-13-2023 MCHC (RBC) [Mass/Vol] 33.0 g/dL 32-36 [facility] Platelets bldOrdered By: Debbie Wilson on 01-13-2023 Platelets (Bld) [#/Vol] 249 10*3/uL 150-450 [facility] Basophil percentageOrdered B y: Jerman Vigil on 01-12-2023 Chloride [Moles/Vol] 106 mmol/L 98-107 [facility] Glucose [Mass/Vol] 153 mg/dL 74-106 [facility] Comment on above: Fasting Glucose resu lt greater than or equal to 126 mg/dL suggests DIABETES MELLITUS per A.D.A. criteria. Potassium [Moles/Vol] 4.2 mmol/L 3.5-5.1 [facility] Sodium [Moles/Vol] 137 mmol/L 136-145 [facility] - Chemistry and C hemistry - challengeOrdered By: Jerman Vigil on 01-12-2023 CO2 [Moles/Vol] 26.0 mmol/L 21.0-32.0 [facility] Urea nitrogen/Creatinine [Mass ratio] 23.7 mg/mg 10-20 [facility] No Panel InformationOrdered By: Jerman Vigil on 01-12-2023 Estimated Creatinine Clearance Calc 72.12 ml/min [facility] Estimated GFR (MDRD) Amer 98 mL/min >60 [facility] Comment on above: GFR Calc Estimated GFR (MDRD) Non-Af Amer 81 mL/min >60 [facility] Comment on above: Non- GFR Calc Serum or plasma calcium anu urement (mass/volume)Ordered By: Jerman Vigil on 01-12-2023 Calcium [Mass/Vol] 9.5 mg/dL 8.5-10.1 [facility] Serum or plasma creatinine m easurement (mass/volume)Ordered By: Jerman Vigil on 01-12-2023 Creatinine [Mass/Vol] 0.97 mg/dL 0.70-1.30 [facility] Comment on above: The validity of the calculated GFR & GFRAA in patients over 70 years has not been determined. Clinical correlation is essential. Serum or plasma urea nitroge n measurement (mass/volume)Ordered By: Jerman Vigil on 01-12-2023 Urea nitrogen [Mass/Vol] 23 mg/dL 7-18 [facility] Thin prep Papanicolaou smear with manual screeningOrdered By: Jerman Vigil on 01-12-2023 Thin prep Papanicolaou smear with manual screening 5 5-15 [facility] Absolute lymphocyte countOrd ered By: Josiah Rushing on 01-11-2023 Lymphocytes Auto (Unsp spec) [#/Vol] 1.33 10*3/uL 0.83-4.51 [facility] Bacteria identified Respirat ory culture Nom (Unsp spec)Ordered By: Josiah Rushing on 01-11-2023 Respiratory Culture Haemophilus influenzae [facility] Basophil percentageOrdered B y: Josiah Rushing on 01-11-2023 Basophils/100 WBC (Bld) 0.4 % 0-1 [facility] Bilirubin [Mass/Vol] 1.10 mg/dL 0.20-1.00 [facility] Comment on above: For patients on eltr ombopag therapy, use of Dimension [place] TBIL is not recommended. Chloride [Moles/Vol] 108 mmol/L 98-107 [facility] Eosinophils/100 WBC (Bld) 0.1 % 0-5 [facility] Glucose [Mass/Vol] 116 mg/dL 74-106 [facility] Comment on above: Fasting Glucose resu lt from 100 to 125 mg/dL suggests IMPAIRED HOMEOSTASIS per A.D.A. criteria. Neutrophils (Bld) [#/Vol] 11.0 10*3/uL 2.0-7.7 [facility] Neutrophils/100 WBC (Bld) 80.8 % 47-70 [facility] Potassium [Moles/Vol] 3.8 mmol/L 3.5-5.1 [facility] Protein [Mass/Vol] 6.6 g/dL 6.4-8.2 [facility] Sodium [Moles/Vol] 141 mmol/L 136-145 [facility] WBC (Bld) [#/Vol] 13.6 10*3/uL 4.4-11.0 [facility] Blood erythrocytes count (nu mber/volume)Ordered By: Josiah Rushing on 01-11-2023 RBC (Bld) [#/Vol] 4.38 10*6/uL 4.6-6.2 [facility] Blood hemoglobin measurement (mass/volume)Ordered By: Josiah Rushing on 01-11-2023 Hemoglobin (Bld) [Mass/Vol] 12.7 g/dL 13.0-16.5 [facility] Blood lymphocytes/100 leukoc ytesOrdered By: Josiah Rushing on 01-11-2023 Lymphocytes/100 WBC (Bld) 9.8 % 19-41 [facility] Blood monocytes/100 leukocyt esOrdered By: Josiah Rushing on 01-11-2023 Monocytes/100 WBC (Bld) 8.3 % 0-10 [facility] Blood platelet mean volumeOr dered By: Josiah Rushing on 01-11-2023 Platelet mean volume (Bld) [Entitic vol] 9.5 fL 6.2-12.0 [facility] Determination of erythrocyte mean corpuscular volume (MCV)Ordered By: Josiah Rushing on 01-11-2023 MCV (RBC) [Entitic vol] 91.8 fL 80-94 [facility] Gram stain for investigation of transfusion reactionOrdered By: Josiah Rushing on 01-11-2023 Microscopic observation Gram stain Nom (Unsp spec) [facility] Hematocrit Auto (Bld) [Volum e fraction]Ordered By: Josiah Rushing on 01-11-2023 Hematocrit (Bld) [Volume fraction] 40.2 % 40-54 [facility] Influenza virus A and B and SARS-CoV-2 (COVID-19) Ag panel - Upper respiratory specimOrdered By: Josiah Rushing on 01-11-2023 SARS-CoV-2 (COVID-19) RNA RITO+probe Ql (Resp) [facility] - Chemistry and C hemistry - challengeOrdered By: Josiah Rushing on 01-11-2023 ALP [Catalytic activity/Vol] 86 U/L 45-117 [facility] ALT [Catalytic activity/Vol] 34 U/L 16-61 [facility] CO2 [Moles/Vol] 28.0 mmol/L 21.0-32.0 [facility] Globulin (S) [Mass/Vol] 3.3 g/dL 2.2-4.2 [facility] Natriuretic peptide B (Bld) [Mass/Vol] 15.8 pg/mL 0-100 [facility] Urea nitrogen/Creatinine [Mass ratio] 17.1 mg/mg 10-20 [facility] - Hematology and Cell countsOrdered By: Josiah Rushing on 01-11-2023 Erythrocyte distribution width (RBC) [Entitic vol] 55.1 fL 35.1-43.9 [facility] Erythrocyte distribution width (RBC) [Ratio] 16.3 % 11.6-14.6 [facility] Immature granulocytes/100 WBC (Bld) 0.600 % 0.0-0.9 [facility] Comment on above: IG% - Immature Granu locytes (promyelocytes, myelocytes and metamyelocytes) > 1% indicates that a LEFT SHIFT is Present. MCH (RBC) [Entitic mass] 29.0 pg 27.0-32.0 [facility] Nucleated RBC/100 WBC (Bld) [Ratio] 0 % 0-5 [facility] MCHC Auto (RBC) [Mass/Vol]Or dered By: Josiah Rushing on 01-11-2023 MCHC (RBC) [Mass/Vol] 31.6 g/dL 32-36 [facility] No Panel InformationOrdered By: Jerman Vigil on 01-11-2023 Streptococcus pneumoniae Antigen (M [facility] No Panel InformationOrdered By: Josiah Rushing on 01-11-2023 Estimated Creatinine Clearance Calc 66.63 ml/min [facility] Estimated GFR (MDRD) Amer 90 mL/min >60 [facility] Comment on above: GFR Calc Estimated GFR (MDRD) Non-Af Amer 74 mL/min >60 [facility] Comment on above: Non- GFR Calc Troponin I High Sensitivity 5 pg/mL 3.0-78.0 [facility] Comment on above: Please Note: New Ginny t Units and Gender Specific Reference Ranges. For more information see Policy Stat Procedure [place] High Sensitivity Troponin (TNIH) and attachments. Platelets bldOrdered By: Judi Rushing on 01-11-2023 Platelets (Bld) [#/Vol] 200 10*3/uL 150-450 [facility] Respiratory pathogens detect ion panel by molecular detection methodOrdered By: Tere Mariee on 01-11-2023 Respiratory pathogens DNA and RNA panel RITO+probe (Resp) [facility] Serum or plasma albumin anu urement (mass/volume)Ordered By: Josiah Rushing on 01-11-2023 Albumin [Mass/Vol] 3.3 g/dL 3.2-5.0 [facility] Serum or plasma albumin/glob ulin mass ratioOrdered By: Josiah Rushing on 01-11-2023 Albumin/Globulin [Mass ratio] 1.0 {ratio} 0.9-2.4 [facility] Serum or plasma calcium anu urement (mass/volume)Ordered By: Josiah Rushing on 01-11-2023 Calcium [Mass/Vol] 9.2 mg/dL 8.5-10.1 [facility] Serum or plasma creatinine m easurement (mass/volume)Ordered By: Josiah Rushing on 01-11-2023 Creatinine [Mass/Vol] 1.05 mg/dL 0.70-1.30 [facility] Comment on above: The validity of the calculated GFR & GFRAA in patients over 70 years has not been determined. Clinical correlation is essential. Serum or plasma urea nitroge n measurement (mass/volume)Ordered By: Josiah Rushing on 01-11-2023 Urea nitrogen [Mass/Vol] 18 mg/dL 7-18 [facility] Thin prep Papanicolaou smear with manual screeningOrdered By: Josiah Rushing on 01-11-2023 Thin prep Papanicolaou smear with manual screening 38 U/L 15-37 [facility] Thin prep Papanicolaou smear with manual screening 5 5-15 [facility] Urine Legionella pneumophila antigen detectionOrdered By: Jerman Vigil on 01-11-2023 L. pneumophila Ag Ql (U) [facility] Basophil percentageOrdered B y: Dr. Arrington on 12-26-2022 Bilirubin [Mass/Vol] 0.80 mg/dL 0.20-1.00 [facility] Comment on above: For patients on eltr ombopag therapy, use of Dimension [place] TBIL is not recommended. Cholesterol [Mass/Vol] 154 mg/dL <200 [facility] Comment on above: <200 mg/dL Desirable 200-240 mg/dL Borderline >240 mg/dL High Risk Protein [Mass/Vol] 7.0 g/dL 6.4-8.2 [facility] Triglyceride [Mass/Vol] 67 mg/dL <199 [facility] Comment on above: The drugs N-Acetylcy steine and Metamizole may falsely depress this assay.Serum Triglycerides Reference Interval Normal <150 mg/dL Borderline high 150 - 199 mg/dL High 200 - 499 mg/dL Very High > or = 500 mg/dL Direct bilirubinOrdered By: Dr. Arrnigton on 12-26-2022 Bilirubin.direct [Mass/Vol] 0.21 mg/dL 0.00-0.30 [facility] - Chemistry and C hemistry - challengeOrdered By: Dr. Arrington on 12-26-2022 ALP [Catalytic activity/Vol] 97 U/L 45-117 [facility] ALT [Catalytic activity/Vol] 36 U/L 16-61 [facility] Globulin (S) [Mass/Vol] 3.4 g/dL 2.2-4.2 [facility] Serum or plasma albumin anu urement (mass/volume)Ordered By: Dr. Arrington on 12-26-2022 Albumin [Mass/Vol] 3.6 g/dL 3.2-5.0 [facility] Serum or plasma cholesterol in HDL measurement (mass/volume)Ordered By: Dr. Arrington on 12-26-2022 Cholesterol in HDL [Mass/Vol] 64 mg/dL >40 [facility] Comment on above: The drugs N-Acetylcy steine and Metamizole may falsely depress this assay. Reference Range HDL <40 mg/dL Low HDL Cholesterol HDL >or= 60 mg/dL High HDL Cholesterol Serum or plasma cholesterol in VLDL measurement (mass/volume)Ordered By: Dr. Arrington on 12-26-2022 Cholesterol in VLDL [Mass/Vol] 13 mg/dL 5-40 [facility] Serum or plasma low density lipoprotein (LDL) cholesterol measurement (mass/volume)Ordered By: Dr. Arrington on 12-26-2022 Cholesterol in LDL [Mass/Vol] 77 mg/dL 0-130 [facility] Thin prep Papanicolaou smear with manual screeningOrdered By: Dr. Arrington on 12-26-2022 Thin prep Papanicolaou smear with manual screening 43 U/L 15-37 [facility] No Panel Informationon 09-25 Influenza Types A,B Rapid (Clinic) Negative [facility] POC SARS CoV-2 Antigen Positive [facility] Basophil percentageOrdered B y: Dr. Padilla on 08-15-2022 Bilirubin [Mass/Vol] 0.90 mg/dL 0.20-1.00 [facility] Comment on above: For patients on eltr ombopag therapy, use of Dimension [place] TBIL is not recommended. Chloride [Moles/Vol] 106 mmol/L 98-107 [facility] Glucose [Mass/Vol] 100 mg/dL 74-106 [facility] Comment on above: Fasting Glucose resu lt from 100 to 125 mg/dL suggests IMPAIRED HOMEOSTASIS per A.D.A. criteria. Potassium [Moles/Vol] 3.8 mmol/L 3.5-5.1 [facility] Protein [Mass/Vol] 6.2 g/dL 6.4-8.2 [facility] Sodium [Moles/Vol] 138 mmol/L 136-145 [facility] WBC (Bld) [#/Vol] 10.0 10*3/uL 4.4-11.0 [facility] Blood erythrocytes count (nu mber/volume)Ordered By: Dr. Padilla on 08-15-2022 RBC (Bld) [#/Vol] 4.38 10*6/uL 4.6-6.2 [facility] Blood hemoglobin measurement (mass/volume)Ordered By: Dr. Padilla on 08-15-2022 Hemoglobin (Bld) [Mass/Vol] 13.3 g/dL 13.0-16.5 [facility] Blood platelet mean volumeOr dered By: Dr. Padilla on 08-15-2022 Platelet mean volume (Bld) [Entitic vol] 10.0 fL 6.2-12.0 [facility] Determination of erythrocyte mean corpuscular volume (MCV)Ordered By: Dr. Padilla on 08-15-2022 MCV (RBC) [Entitic vol] 92.9 fL 80-94 [facility] Hematocrit Auto (Bld) [Volum e fraction]Ordered By: Dr. Padilla on 08-15-2022 Hematocrit (Bld) [Volume fraction] 40.7 % 40-54 [facility] - Chemistry and C hemistry - challengeOrdered By: Dr. Padilla on 08-15-2022 ALP [Catalytic activity/Vol] 70 U/L 45-117 [facility] ALT [Catalytic activity/Vol] 31 U/L 16-61 [facility] CO2 [Moles/Vol] 26.0 mmol/L 21.0-32.0 [facility] Globulin (S) [Mass/Vol] 2.9 g/dL 2.2-4.2 [facility] Urea nitrogen/Creatinine [Mass ratio] 18.5 mg/mg 10-20 [facility] - Hematology and Cell countsOrdered By: Dr. Padilla on 08-15-2022 Erythrocyte distribution width (RBC) [Entitic vol] 53.7 fL 35.1-43.9 [facility] Erythrocyte distribution width (RBC) [Ratio] 15.7 % 11.6-14.6 [facility] MCH (RBC) [Entitic mass] 30.4 pg 27.0-32.0 [facility] MCHC Auto (RBC) [Mass/Vol]Or dered By: Dr. Padilla on 08-15-2022 MCHC (RBC) [Mass/Vol] 32.7 g/dL 32-36 [facility] No Panel InformationOrdered By: Dr. Padilla on 08-15-2022 Estimated Creatinine Clearance Calc 81.58 ml/min [facility] Estimated GFR (MDRD) Amer 112 mL/min >60 [facility] Comment on above: GFR Calc Estimated GFR (MDRD) Non-Af Amer 92 mL/min >60 [facility] Comment on above: Non- GFR Calc Platelets bldOrdered By: Dr. Padilla on 08-15-2022 Platelets (Bld) [#/Vol] 217 10*3/uL 150-450 [facility] Serum or plasma IgA measurem ent (mass/volume)Ordered By: Dr. Theodore on 08-15-2022 IgA [Mass/Vol] 130 mg/dL 61-437 [facility] Serum or plasma IgG measurem ent (mass/volume)Ordered By: Dr. Theodore on 08-15-2022 IgG [Mass/Vol] 620 mg/dL 603-1613 [facility] Serum or plasma IgM measurem ent (mass/volume)Ordered By: Dr. Theodore on 08-15-2022 IgM [Mass/Vol] 56 mg/dL 20-172 [facility] Comment on above: Performed at: [place] [id number] Director: Ovidio Castillo PhD, Phone: [phone] Serum or plasma albumin anu urement (mass/volume)Ordered By: Dr. Padilla on 08-15-2022 Albumin [Mass/Vol] 3.3 g/dL 3.2-5.0 [facility] Serum or plasma albumin/glob ulin mass ratioOrdered By: Dr. Padilla on 08-15-2022 Albumin/Globulin [Mass ratio] 1.1 {ratio} 0.9-2.4 [facility] Serum or plasma calcium anu urement (mass/volume)Ordered By: Dr. Padilla on 08-15-2022 Calcium [Mass/Vol] 9.1 mg/dL 8.5-10.1 [facility] Serum or plasma creatinine m easurement (mass/volume)Ordered By: Dr. Padilla on 08-15-2022 Creatinine [Mass/Vol] 0.87 mg/dL 0.70-1.30 [facility] Comment on above: The validity of the calculated GFR & GFRAA in patients over 70 years has not been determined. Clinical correlation is essential. Serum or plasma urea nitroge n measurement (mass/volume)Ordered By: Dr. Padilla on 08-15-2022 Urea nitrogen [Mass/Vol] 16 mg/dL 7-18 [facility] Thin prep Papanicolaou smear with manual screeningOrdered By: Dr. Padilla on 08-15-2022 Thin prep Papanicolaou smear with manual screening 18 U/L 15-37 [facility] Thin prep Papanicolaou smear with manual screening 6 5-15 [facility] Base excessOrdered By: Dr. Hollie murphy on 08-14-2022 Base excess Calc (BldV) [Moles/Vol] 1 mmol/L -2-2 [facility] Basophil percentageOrdered B y: Dr. Arrington on 08-14-2022 Basophil percentage 25.6 mmol/L 22- [facility] Basophils/100 WBC (Bld) 93 % 95-99 [facility] CO2 (BldA) [Partial pressure ]Ordered By: Dr. Arrington on 08-14-2022 CO2 (Bld) [Partial pressure] 40.5 mm[Hg] 35-45 [facility] HCO3 (BldA) [Moles/Vol]Order ed By: Dr. Arrington on 08-14-2022 HCO3 (Bld) [Moles/Vol] 27 mmol/L 22- [facility] - Chemistry and C hemistry - challengeOrdered By: Dr. Arrington on 08-14-2022 CO2 [Moles/Vol] 28 mmol/L 23-33 [facility] No Panel InformationOrdered By: Dr. Arrington on 08-14-2022 Bed Mix Venous Bld PCO2 at Pat Temp 42.8 mmHg 41-51 [facility] Blood Gas Specimen Type SID [facility] Venous Blood Base Excess 2 mmol/L -1.0-3.5 [facility] Blood Gas Total CO2 27 mmol/L [facility] Oxygen (BldA) [Partial press ure]Ordered By: Dr. Arrington on 08-14-2022 Oxygen (Bld) [Partial pressure] 65 mmHG 75-100 [facility] PO2 venousOrdered By: on 08-14-2022 Oxygen (BldV) [Partial pressure] 38 mm[Hg] 25-40 [facility] Vital signsOrdered By: Dr. Hollie murphy on 08-14-2022 Oxygen saturation in Blood 73 % 50-70 [facility] pH measurementOrdered By: Dr Ata Arrington on 08-14-2022 pH (Unsp spec) 7.41 [pH] 7.32-7.42 [facility] pH (Unsp spec) 7.41 [pH] 7.35-7.45 [facility] Absolute lymphocyte countOrd ered By: Dr. Arrington on 08-08-2022 Lymphocytes Auto (Unsp spec) [#/Vol] 1.65 10*3/uL 0.83-4.51 [facility] Basophil percentageOrdered B y: Dr. Arrington on 08-08-2022 Basophils/100 WBC (Bld) 0.5 % 0-1 [facility] Chloride [Moles/Vol] 107 mmol/L 98-107 [facility] Eosinophils/100 WBC (Bld) 0.7 % 0-5 [facility] Glucose [Mass/Vol] 98 mg/dL 74-106 [facility] Neutrophils (Bld) [#/Vol] 5.7 10*3/uL 2.0-7.7 [facility] Neutrophils/100 WBC (Bld) 68.4 % 47-70 [facility] Potassium [Moles/Vol] 3.9 mmol/L 3.5-5.1 [facility] Sodium [Moles/Vol] 141 mmol/L 136-145 [facility] WBC (Bld) [#/Vol] 8.4 10*3/uL 4.4-11.0 [facility] Blood erythrocytes count (nu mber/volume)Ordered By: Dr. Arrington on 08-08-2022 RBC (Bld) [#/Vol] 4.70 10*6/uL 4.6-6.2 [facility] Blood hemoglobin measurement (mass/volume)Ordered By: Dr. Arrington on 08-08-2022 Hemoglobin (Bld) [Mass/Vol] 14.1 g/dL 13.0-16.5 [facility] Blood lymphocytes/100 leukoc ytesOrdered By: Dr. Arrington on 08-08-2022 Lymphocytes/100 WBC (Bld) 19.8 % 19-41 [facility] Blood monocytes/100 leukocyt esOrdered By: Dr. Arrington on 08-08-2022 Monocytes/100 WBC (Bld) 9.6 % 0-10 [facility] Blood platelet mean volumeOr dered By: Dr. Arrington on 08-08-2022 Platelet mean volume (Bld) [Entitic vol] 9.7 fL 6.2-12.0 [facility] Determination of erythrocyte mean corpuscular volume (MCV)Ordered By: Dr. Arrington on 08-08-2022 MCV (RBC) [Entitic vol] 92.3 fL 80-94 [facility] Hematocrit Auto (Bld) [Volum e fraction]Ordered By: Dr. Arrington on 08-08-2022 Hematocrit (Bld) [Volume fraction] 43.4 % 40-54 [facility] - Chemistry and C hemistry - challengeOrdered By: Dr. Arrington on 08-08-2022 CO2 [Moles/Vol] 25.0 mmol/L 21.0-32.0 [facility] Urea nitrogen/Creatinine [Mass ratio] 17.3 mg/mg 10-20 [facility] - Hematology and Cell countsOrdered By: Dr. Arrington on 08-08-2022 Erythrocyte distribution width (RBC) [Entitic vol] 52.8 fL 35.1-43.9 [facility] Erythrocyte distribution width (RBC) [Ratio] 15.5 % 11.6-14.6 [facility] Immature granulocytes/100 WBC (Bld) 1.000 % 0.0-0.9 [facility] Comment on above: IG% - Immature Granu locytes (promyelocytes, myelocytes and metamyelocytes) > 1% indicates that a LEFT SHIFT is Present. MCH (RBC) [Entitic mass] 30.0 pg 27.0-32.0 [facility] Nucleated RBC/100 WBC (Bld) [Ratio] 0 % 0-5 [facility] MCHC Auto (RBC) [Mass/Vol]Or dered By: Dr. Arrington on 08-08-2022 MCHC (RBC) [Mass/Vol] 32.5 g/dL 32-36 [facility] No Panel InformationOrdered By: Dr. Arrington on 08-08-2022 Estimated GFR (MDRD) Amer 104 mL/min >60 [facility] Comment on above: GFR Calc Estimated GFR (MDRD) Non-Af Amer 86 mL/min >60 [facility] Comment on above: Non- GFR Calc Platelets bldOrdered By: Dr. Arrington on 08-08-2022 Platelets (Bld) [#/Vol] 245 10*3/uL 150-450 [facility] Serum or plasma calcium anu urement (mass/volume)Ordered By: Dr. Arrington on 08-08-2022 Calcium [Mass/Vol] 9.7 mg/dL 8.5-10.1 [facility] Serum or plasma creatinine m easurement (mass/volume)Ordered By: Dr. Arrington on 08-08-2022 Creatinine [Mass/Vol] 0.93 mg/dL 0.70-1.30 [facility] Comment on above: The validity of the calculated GFR & GFRAA in patients over 70 years has not been determined. Clinical correlation is essential. Serum or plasma urea nitroge n measurement (mass/volume)Ordered By: Dr. Arrington on 08-08-2022 Urea nitrogen [Mass/Vol] 16 mg/dL 7-18 [facility] Thin prep Papanicolaou smear with manual screeningOrdered By: Dr. Arrington on 08-08-2022 Thin prep Papanicolaou smear with manual screening 9 5-15 [facility] Basophil percentageOrdered B y: Paige Moore on 06-02-2022 Bilirubin [Mass/Vol] 0.90 mg/dL 0.20-1.00 [facility] Comment on above: For patients on eltr ombopag therapy, use of Dimension [place] TBIL is not recommended. Chloride [Moles/Vol] 106 mmol/L 98-107 [facility] Glucose [Mass/Vol] 108 mg/dL 74-106 [facility] Comment on above: Fasting Glucose resu lt from 100 to 125 mg/dL suggests IMPAIRED HOMEOSTASIS per A.D.A. criteria. Potassium [Moles/Vol] 4.8 mmol/L 3.5-5.1 [facility] Comment on above: Moderate Hemolysis, Result may be falsely increased. Protein [Mass/Vol] 6.9 g/dL 6.4-8.2 [facility] Sodium [Moles/Vol] 138 mmol/L 136-145 [facility] Laboratory - Chemistry and C hemistry - challengeOrdered By: Paige Moore on 06-02-2022 ALP [Catalytic activity/Vol] 72 U/L 45-117 [facility] ALT [Catalytic activity/Vol] 50 U/L 16-61 [facility] CO2 [Moles/Vol] 25.0 mmol/L 21.0-32.0 [facility] Globulin (S) [Mass/Vol] 3.2 g/dL 2.2-4.2 [facility] Urea nitrogen/Creatinine [Mass ratio] 17.6 mg/mg 10-20 [facility] No Panel InformationOrdered By: Paige Moore on 06-02-2022 Estimated Creatinine Clearance Calc 65.72 ml/min [facility] Estimated GFR (MDRD) Amer 87 mL/min >60 [facility] Comment on above: GFR Calc Estimated GFR (MDRD) Non-Af Amer 72 mL/min >60 [facility] Comment on above: Non- GFR Calc Troponin I High Sensitivity 7 pg/mL 3.0-78.0 [facility] Comment on above: Please Note: New Ginny t Units and Gender Specific Reference Ranges. For more information see Policy Stat Procedure [place] High Sensitivity Troponin (TNIH) and attachments. Serum or plasma albumin anu urement (mass/volume)Ordered By: Paige Moore on 06-02-2022 Albumin [Mass/Vol] 3.7 g/dL 3.2-5.0 [facility] Serum or plasma albumin/glob ulin mass ratioOrdered By: Paige Moore on 06-02-2022 Albumin/Globulin [Mass ratio] 1.2 {ratio} 0.9-2.4 [facility] Serum or plasma calcium anu urement (mass/volume)Ordered By: Paige Moore on 06-02-2022 Calcium [Mass/Vol] 9.3 mg/dL 8.5-10.1 [facility] Serum or plasma creatinine m easurement (mass/volume)Ordered By: Paige Moore on 06-02-2022 Creatinine [Mass/Vol] 1.08 mg/dL 0.70-1.30 [facility] Comment on above: The validity of the calculated GFR & GFRAA in patients over 70 years has not been determined. Clinical correlation is essential. Serum or plasma urea nitroge n measurement (mass/volume)Ordered By: Paige Moore on 06-02-2022 Urea nitrogen [Mass/Vol] 19 mg/dL 7-18 [facility] Thin prep Papanicolaou smear with manual screeningOrdered By: Paigearmond Moore on 06-02-2022 Thin prep Papanicolaou smear with manual screening 42 U/L 15-37 [facility] Comment on above: Moderate Hemolysis, Result may be falsely increased. Thin prep Papanicolaou smear with manual screening 7 5-15 [facility] Microbial respiratory cultur eOrdered By: Dr. Theodore on 04-27-2022 Bacteria identified Respiratory culture Nom (Unsp spec) [facility] Gram stain for investigation of transfusion reactionOrdered By: Dr. Theodore on 04-24-2022 Microscopic observation Gram stain Nom (Unsp spec) [facility] Basophil percentageOrdered B y: Dr. Ureña on 04-08-2022 Basophil percentage < 0.9 mg/dL 0.70-1.30 [facility] No Panel InformationOrdered By: Dr. Ureña on 04-08-2022 Bedside Estimated GFR (eGFR) > 60.0000 mL/min >60 [facility] Absolute lymphocyte counton 01-25-2022 Lymphocytes Auto (Unsp spec) [#/Vol] 1.71 10*3/uL 0.83-4.51 [facility] Work Phone: Basophil percentageon 2021 Basophils/100 WBC (Bld) 0.3 % 0-1 [facility] Work Phone: Chloride [Moles/Vol] 108 mmol/L 98-107 [facility] Work Phone: Eosinophils/100 WBC (Bld) 0.5 % 0-5 [facility] Work Phone: Glucose [Mass/Vol] 128 mg/dL 74-106 [facility] Work Phone: Comment on above: Fasting Glucose resu lt greater than or equal to 126 mg/dL suggests DIABETES MELLITUS per A.D.A. criteria. Neutrophils (Bld) [#/Vol] 7.2 10*3/uL 2.0-7.7 [facility] Work Phone: [phone] Neutrophils/100 WBC (Bld) 72.0 % 47-70 [facility] Work Phone: Potassium [Moles/Vol] 4.0 mmol/L 3.5-5.1 [facility] Work Phone: Sodium [Moles/Vol] 141 mmol/L 136-145 [facility] Work Phone: [phone] WBC (Bld) [#/Vol] 9.9 10*3/uL 4.4-11.0 [facility] Work Phone: Blood erythrocytes count (nu mber/volume)on 01-25-2022 RBC (Bld) [#/Vol] 4.42 10*6/uL 4.6-6.2 [facility] Work Phone: Blood hemoglobin measurement (mass/volume)on 01-25-2022 Hemoglobin (Bld) [Mass/Vol] 13.1 g/dL 13.0-16.5 [facility] Work Phone: Blood lymphocytes/100 leukoc yteson 01-25-2022 Lymphocytes/100 WBC (Bld) 17.2 % 19-41 [facility] Work Phone: Blood monocytes/100 leukocyt eson 01-25-2022 Monocytes/100 WBC (Bld) 9.3 % 0-10 [facility] Work Phone: Blood platelet mean volumeon 01-25-2022 Platelet mean volume (Bld) [Entitic vol] 9.7 fL 6.2-12.0 [facility] Work Phone: Determination of erythrocyte mean corpuscular volume (MCV)on 01-25-2022 MCV (RBC) [Entitic vol] 91.2 fL 80-94 [facility] Work Phone: Hematocrit Auto (Bld) [Volum e fraction]on 01-25-2022 Hematocrit (Bld) [Volume fraction] 40.3 % 40-54 [facility] Work Phone: INR in Blood by Coagulation assayon 01-25-2022 INR Coag (Bld) [Relative time] 1.1 {INR} [facility] Work Phone: Laboratory - Chemistry and C hemistry - challengeon 01-25-2022 CO2 [Moles/Vol] 28.0 mmol/L 21.0-32.0 [facility] Work Phone: Magnesium [Mass/Vol] 2.1 mg/dL 1.6-2.6 [facility] Work Phone: Urea nitrogen/Creatinine [Mass ratio] 17.6 mg/mg 10-20 [facility] Work Phone: Laboratory - Coagulationon 0 01-25-2022 aPTT Coag (Bld) [Time] 31.8 s 24.1-36.2 [facility] Work Phone: PT Coag (PPP) [Time] 14.1 s 11.7-14.9 [facility] Work Phone: Laboratory - Hematology and Cell countson 01-25-2022 Erythrocyte distribution width (RBC) [Entitic vol] 50.6 fL 35.1-43.9 [facility] Work Phone: Erythrocyte distribution width (RBC) [Ratio] 15.2 % 11.6-14.6 [facility] Work Phone: Immature granulocytes/100 WBC (Bld) 0.700 % 0.0-0.9 [facility] Work Phone: Comment on above: IG% - Immature Granu locytes (promyelocytes, myelocytes and metamyelocytes) > 1% indicates that a LEFT SHIFT is Present. MCH (RBC) [Entitic mass] 29.6 pg 27.0-32.0 [facility] Work Phone: Nucleated RBC/100 WBC (Bld) [Ratio] 0 % 0-5 [facility] Work Phone: MCHC Auto (RBC) [Mass/Vol]on 01-25-2022 MCHC (RBC) [Mass/Vol] 32.5 g/dL 32-36 [facility] Work Phone: No Panel Informationon 01-25 Estimated Creatinine Clearance Calc 54.18 ml/min [facility] Work Phone: Estimated GFR (MDRD) Amer 70 mL/min >60 [facility] Work Phone: Comment on above: GFR Calc Estimated GFR (MDRD) Non-Af Amer 58 mL/min >60 [facility] Work Phone: Comment on above: Non- GFR Calc Platelets bldon 01-25-2022 Platelets (Bld) [#/Vol] 210 10*3/uL 150-450 [facility] Work Phone: Serum or plasma calcium anu urement (mass/volume)on 01-25-2022 Calcium [Mass/Vol] 9.3 mg/dL 8.5-10.1 [facility] Work Phone: Serum or plasma creatinine m easurement (mass/volume)on 01-25-2022 Creatinine [Mass/Vol] 1.31 mg/dL 0.70-1.30 [facility] Work Phone: Comment on above: The validity of the calculated GFR & GFRAA in patients over 70 years has not been determined. Clinical correlation is essential. Serum or plasma urea nitroge n measurement (mass/volume)on 01-25-2022 Urea nitrogen [Mass/Vol] 23 mg/dL 7-18 [facility] Work Phone: Thin prep Papanicolaou smear with manual screeningon 01-25-2022 Thin prep Papanicolaou smear with manual screening 5 5-15 [facility] Work Phone: Laboratory - Microbiology an d Antimicrobial susceptibilityon 11-08-2021 SARS-CoV-2 (COVID-19) RNA RITO+probe Ql (Unsp spec) Not detected [facility] Work Phone: No Panel Informationon 11-08 Influenza Types A,B Rapid (Clinic) Not detected [facility] Work Phone: Absolute lymphocyte counton 09-09-2021 Lymphocytes Auto (Unsp spec) [#/Vol] 2.10 10*3/uL 0.83-4.51 [facility] Work Phone: Basophil percentageon 2021 Basophils/100 WBC (Bld) 0.4 % 0-1 [facility] Work Phone: Chloride [Moles/Vol] 106 mmol/L 98-107 [facility] Work Phone: Eosinophils/100 WBC (Bld) 0.4 % 0-5 [facility] Work Phone: Glucose [Mass/Vol] 99 mg/dL 74-106 [facility] Work Phone: Neutrophils (Bld) [#/Vol] 6.3 10*3/uL 2.0-7.7 [facility] Work Phone: Neutrophils/100 WBC (Bld) 68.3 % 47-70 [facility] Work Phone: Potassium [Moles/Vol] 3.9 mmol/L 3.5-5.1 [facility] Work Phone: Sodium [Moles/Vol] 139 mmol/L 136-145 [facility] Work Phone: WBC (Bld) [#/Vol] 9.2 10*3/uL 4.4-11.0 [facility] Work Phone: Blood erythrocytes count (nu mber/volume)on 09-09-2021 RBC (Bld) [#/Vol] 4.89 10*6/uL 4.6-6.2 [facility] Work Phone: Blood hemoglobin measurement (mass/volume)on 09-09-2021 Hemoglobin (Bld) [Mass/Vol] 15.3 g/dL 13.0-16.5 [facility] Work Phone: Blood lymphocytes/100 leukoc yteson 09-09-2021 Lymphocytes/100 WBC (Bld) 22.8 % 19-41 [facility] Work Phone: [phone] Blood monocytes/100 leukocyt eson 09-09-2021 Monocytes/100 WBC (Bld) 7.8 % 0-10 [facility] Work Phone: Blood platelet mean volumeon 09-09-2021 Platelet mean volume (Bld) [Entitic vol] 10.5 fL 6.2-12.0 [facility] Work Phone: Determination of erythrocyte mean corpuscular volume (MCV)on 09-09-2021 MCV (RBC) [Entitic vol] 92.4 fL 80-94 [facility] Work Phone: Hematocrit Auto (Bld) [Volum e fraction]on 09-09-2021 Hematocrit (Bld) [Volume fraction] 45.2 % 40-54 [facility] Work Phone: Laboratory - Chemistry and C hemistry - challengeon 09-09-2021 CO2 [Moles/Vol] 26.0 mmol/L 21.0-32.0 [facility] Work Phone: Urea nitrogen/Creatinine [Mass ratio] 18.9 mg/mg 10-20 [facility] Work Phone: Laboratory - Hematology and Cell countson 09-09-2021 Erythrocyte distribution width (RBC) [Entitic vol] 49.3 fL 35.1-43.9 [facility] Work Phone: Erythrocyte distribution width (RBC) [Ratio] 14.4 % 11.6-14.6 [facility] Work Phone: Immature granulocytes/100 WBC (Bld) 0.300 % 0.0-0.9 [facility] Work Phone: Comment on above: IG% - Immature Granu locytes (promyelocytes, myelocytes and metamyelocytes) > 1% indicates that a LEFT SHIFT is Present. MCH (RBC) [Entitic mass] 31.3 pg 27.0-32.0 [facility] Work Phone: Nucleated RBC/100 WBC (Bld) [Ratio] 0 % 0-5 [facility] Work Phone: MCHC Auto (RBC) [Mass/Vol]on 09-09-2021 MCHC (RBC) [Mass/Vol] 33.8 g/dL 32-36 [facility] Work Phone: No Panel Informationon 09-09 Estimated GFR (MDRD) Amer 89 mL/min >60 [facility] Work Phone: Comment on above: GFR Calc Estimated GFR (MDRD) Non-Af Amer 74 mL/min >60 [facility] Work Phone: Comment on above: Non- GFR Calc Prostate Specific Antigen Screen 0.25 ng/mL 0.00-4.00 [facility] Work Phone: Comment on above: This test was perfor med using the TPSA assay method for the[facility] chemistry system. Values obtained with differentassay methods cannot be used interchangably.When changing PSA assays in the course of monitoring apatient, additional sequential testing should be carriedout to confirm baseline values. Platelets bldon 09-09-2021 Platelets (Bld) [#/Vol] 224 10*3/uL 150-450 [facility] Work Phone: Serum or plasma calcium anu urement (mass/volume)on 09-09-2021 Calcium [Mass/Vol] 9.5 mg/dL 8.5-10.1 [facility] Work Phone: Serum or plasma creatinine m easurement (mass/volume)on 09-09-2021 Creatinine [Mass/Vol] 1.06 mg/dL 0.70-1.30 [facility] Work Phone: Comment on above: The validity of the calculated GFR & GFRAA in patients over 70 years has not been determined. Clinical correlation is essential. Serum or plasma urea nitroge n measurement (mass/volume)on 09-09-2021 Urea nitrogen [Mass/Vol] 20 mg/dL 7-18 [facility] Work Phone: Thin prep Papanicolaou smear with manual screeningon 09-09-2021 Thin prep Papanicolaou smear with manual screening 7 5-15 [facility] Work Phone: No Panel Informationon 07-02 POC SARS CoV-2 Antigen Negative [facility] Work Phone: ANES Titus 06-24-2017 ANES POST HNO ID: [id number] thor: Rena Alegriaervice: AnesthesiologyAuthor Type: AnesthesiologistType: Anesthesia PostOpFiled: 06/24/2017 2:28 PMNote Text:POST ANESTHESIA EVALUATION NOTESERVICE DATE: 06/24/2017SERVICE TIME: 2:27 PMDOB: 1950Vitals: 06/24/1711Temp: 36.6 ?C (97.9 ?F) 36.3 ?C (97.3 ?F) 06/24/1712BP: 91/55 100/59 120/56 118/60 06/24/1712Pulse: (!) 54 (!) 55 (!) 58 61 06/24/171220/[id number]: 16 16 18 20 156 06/24/1712SpO2: 95% 95% 97% 96%Validated Vital Signs: YesPOST ANES STATUS: No apparent anesthetic complications. The patient isappropriately hydrated with stable respiratory and cardiovascular status.Patient has safe and adequate airway control. The patient has appropriatepain relief and no significant post operative nausea or vomiting. Thepatient has achieved baseline mental status.Further assessment by Anesthesia Service: NoneOther Remarks:SIGNATURE: Rena Newton MD PATIENT NAME: Joaquin Olson SmartDATE: June 24, 2017 : 2:27 PM PAGER/CONTACT #: [phone] [facility] ANES PREOPon 06-24-2017 ANES PREOP HNO ID: [id number] thor: Rena Alegriaervice: AnesthesiologyAuthor Type: AnesthesiologistType: Anesthesia PreOpFiled: 06/24/2017 10:23 AMNote Text: ANESTHESIOLOGY DAY OF SURGERY NOTESERVICE DATE: 06/24/2017SERVICE TIME: 10:22 AMDOB: 2Procedure(s) (LRB):COLONOSCOPY (N/A)EGD (N/A)Surgeon(s):Desirae RosarioanEstimated body mass index is 44.19 kg/(m2) as calculated from thefollowing: Height as of this encounter: 177.8 cm (5' 10). Weight as of this encounter: 139.7 kg (308 lb).Most recent hematocrit and potassium results:Hematocrit 48.3 04/25/2017Potassium 4.3 04/25/2017ANES DOS/PREOP NOTE:Vitals: 6BP: 144/77Pulse: 64Resp: 20Temp: 36.6 ?C (97.9 ?F)TempSrc: Temporal ArterySpO2: 97%Weight: (!) 139.7 kg (308 lb)Height: 177.8 cm (5' 10)ACTIVE PROBLEM LISTHypertensionPes PlanusInsomniaGoutRecurrent Kidney StonesDdd (Degenerative Disc Disease), CervicalAsthmaChronic SinusitisChronic Ethmoidal SinusitisBph With Obstruction/Lower Urinary Tract SymptomsGerd (Gastroesophageal Reflux Disease)Mixed HyperlipidemiaObstructive Sleep ApneaMorbid Obesity (Hcc)Umbilical HerniaPrediabetesColon Cancer ScreeningPAST MEDICAL HISTORYDiagnosis Date- Asthma 11/21/201411/2014: DARIEL +, 20% drop in FEV1 at 25 mg/mL.- Chronic sinusitis 11/21/201411/2014 CT sinus.- DDD (degenerative disc disease), cervical- DDD (degenerative disc disease), lumbar- GERD (gastroesophageal reflux disease)- Gout- Hemorrhage of gastrointestinal tract, unspecified- Hypertension- Mixed hyperlipidemia Hyperlipidemia- Nephrolithiasis seen Dr Lanier- Obstructive sleep apnea using CPAP- Prediabetes- Umbilical herniaPAST SURGICAL HISTORYProcedure Laterality Date- COLONOSCOP W/ OR W/O BRSH SPEC 08/14/2006 Colonoscopy- EXCISION OF LINGUAL TONSIL- IR URETERAL STENT 05/2015 followed by removal- PAST SURGICAL HISTORY OF neck surgery disc- PAST SURGICAL HISTORY OF microdiscectomy x 2 lumber L5 and L6- PAST SURGICAL HISTORY OF [address] SEGAL HISTORYProblem Relation Age of Onset- Cancer Father bone marrowSocial History:Social HistorySubstance Use Topics- Smoking status: Never Smoker- Smokeless tobacco: Never Used Comment: Parents smoked in childhood home.- Alcohol use 18.0 oz/weekNo current facility-administered medications on file prior to encounter.Current Outpatient Prescriptions on File Prior to Encounter:irbesartan (AVAPRO) 150 mg tablet Take 1 tablet by mouth once daily.allopurinol (ZYLOPRIM) 300 mg tablet Take 1 tablet by mouth once daily.For gout.rosuvastatin (CRESTOR) 5 mg tablet Take 0.5 tablets by mouth every 48hours.omeprazole (PRILOSEC) 20 mg capsule Take 2 capsules by mouth once daily.1/2 hr before meal.latanoprost (XALATAN) 0.005 % ophthalmic solutionloratadine (CLARITIN) 10 mg tablet Take 1 tablet by mouth once daily.fluticasone (FLONASE) 50 mcg/actuation nasal spray Use 2 Sprays in eachnostril once daily.CPAP Initiate AutoPAP @ 10/20 cm of water with humidification. Mask (perpatient preference) optional chin strap (if indicated) , filters, tubing,humidifier and lifetime supplies. Dx. CARMELLA 327.23sodium chloride (MICHAEL 128) 5 % ophthalmic ointment Use 1 application inboth eyes once daily.Vardenafil HCl (LEVITRA) 20 mg tablet 1 tab prn as neededaspirin, enteric coated (ECOTRIN LOW STRENGTH) 81 mg EC tablet Take 1tablet by mouth once daily.fluticasone (FLOVENT HFA) 110 mcg/actuation inhaler USE 2 INHALATIONS BYMOUTH DIRECTED 2 TIMES DAILY VIA SPACER THEN RINSE AND GARGLE MOUTH WITHWATERzolpidem (AMBIEN) 10 mg tab Take 1 tablet by mouth at bedtime as needed.THERAPEUTIC MULTIVITAMIN TAB Take one(1) tablet daily.Current Facility-Administered Medications:NaCl 0.9% iv infusion 30 mL/hr INTRAVENOUS CONTINUOUS Desirae RosarioanAllergies:ALLERGIESA llergen Reactions- Lisinopril Cough- Simvastatin Other: See Comments elevated liver enzyme,elevated muscle enzymeDOS EXAM: Adequate NPO Status: YesAnesthetic Risks, Benefits, Alternatives, Personnel and Consent Discussed:YesPatient agrees to proceed: YesPrevious Anesthesia: No history of adverse eventAirway Assessment: MP 2; Neck ROM: Full ROM without neurologic symptoms;Airway Evaluation: No significant abnormalitiesSymptoms of Sleep Apnea: CARMELLA on CPAPDentition: Teeth intactAdditional Physical Exam:Lungs: Patient health status unchanged since recent history and physical.See history and physical for exam findings.Cardiac: Patient health status unchanged since recent history andphysical. See history and physical for exam findings.Additional Pertinent Findings: N/ABlood Products: Not anticipated for this procedureAnesthetic Plan: MAC with general as back upAnesthetic Monitoring: Standard ASA MonitorsPain Management Plan: Parenteral or OralASA Class: 3Other Medical Problems: NoneChronic Beta Zach medication administered within 24 hours: N/AI have interviewed and examined the patient. I have reviewed the medicalrecord and/or the pre-anesthesia evaluation, pertinent labs, and testresults.Significant changes in the patient's condition since the History andPhysical, not otherwise documented in primary service progress notes: NoThis contains updated information obtained within 48 hours ofSurgery/Procedure.SIGNATU RE: Rena Newton MD PATIENT NAME: Joaquin Olson SmartDATE: June 24, 2017 : 10:22 AM CSN: [id number] Normal [facility] HISTORY PHYSICALon 7 HISTORY PHYSICAL HNO ID: [id number] thor: Desirae Mckenzieervice: General SurgeryAuthor Type: PhysicianType: HANDPFiled: 06/24/2017 9:53 AMNote Text:HISTORY AND PHYSICAL?Joaquin Olson Gabi1950?REFERRING PHYSICIAN: Xiang Martins *?CHIEF COMPLAINT: Consult (colonoscopy)?HPI: The patient is a 66 year old male referred for endoscopy. Patient'slast colonoscopy was in 2006 and he is due for 10-year follow-upcolonoscopy. At time of his last colonoscopy with Dr. Kumar he wasnoted to have a very tortuous colon and required a barium enema ascolonoscopy could not be completed under moderate sedation. He denies anychange in bowel habits, weight changes, blood in stools, black tarrystools or abdominal pain. He denies a family history of colon issues.The patient does note that he has been taking a PPI daily for intermittentcough that to be secondary to acid reflux. He continues to note thesesymptoms, worse in colder months. He denies having an EGD in the past.He does not use tobacco.?The patient is being seen by me today at the request of Dr. Martins for myopinion and advice regarding endoscopy. Past medical history issignificant for morbid obesity, sleep apnea for which he uses a CPAP,hypertension, hyperlipidemia, and gout. He does use an inhaler regularfor wheezing and occasional shortness of breath. He denies chest pain orrecent hospitalizations. He follows with Dr. Martins regularly for hischronic medical conditions.?? PAST?MEDICAL?HISTORYPAST MEDICAL HISTORYDiagnosis Date- Asthma 11/21/2014? 11/2014: DARIEL +, 20% drop in FEV1 at 25 mg/mL.- Chronic sinusitis 11/21/2014? 11/2014 CT sinus.- DDD (degenerative disc disease), cervical ?- DDD (degenerative disc disease), lumbar ?- GERD (gastroesophageal reflux disease) ?- Gout ?- Hemorrhage of gastrointestinal tract, unspecified ?- Hypertension ?- Mixed hyperlipidemia ?? Hyperlipidemia- Nephrolithiasis ?? seen Dr Lanier- Obstructive sleep apnea ?? using CPAP- Prediabetes ?- Umbilical hernia ??? PAST?SURGICAL?HISTORYPAST SURGICAL HISTORYProcedure Laterality Date- COLONOSCOP W/ OR W/O [facility] SPEC ? 08/14/2006? Colonoscopy- EXCISION OF LINGUAL TONSIL ? ?- IR URETERAL STENT ? 05/2015? followed by removal- PAST SURGICAL HISTORY OF ? ?? neck surgery disc- PAST SURGICAL HISTORY OF ? ?? microdiscectomy x 2 lumber L5 and L6- PAST SURGICAL HISTORY OF ? 2001? HEART CATH PER DR ARRINGTON? CURRENT?MEDICATIONS ?Current Outpatient Prescriptions:irbesartan (AVAPRO) 150 mg tablet Take 1 tablet by mouth once daily.allopurinol (ZYLOPRIM) 300 mg tablet Take 1 tablet by mouth once daily.For gout.rosuvastatin (CRESTOR) 5 mg tablet Take 0.5 tablets by mouth every 48hours.omeprazole (PRILOSEC) 20 mg capsule Take 2 capsules by mouth once daily.1/2 hr before meal.latanoprost (XALATAN) 0.005 % ophthalmic solution ?loratadine (CLARITIN) 10 mg tablet Take 1 tablet by mouth once daily.fluticasone (FLONASE) 50 mcg/actuation nasal spray Use 2 Sprays in eachnostril once daily.Vardenafil HCl (LEVITRA) 20 mg tablet 1 tab prn as neededaspirin, enteric coated (ECOTRIN LOW STRENGTH) 81 mg EC tablet Take 1tablet by mouth once daily.fluticasone (FLOVENT HFA) 110 mcg/actuation inhaler USE 2 INHALATIONS BYMOUTH DIRECTED 2 TIMES DAILY VIA SPACER THEN RINSE AND GARGLE MOUTH WITHWATERalbuterol HFA (PROVENTIL HFA, VENTOLIN HFA) 90 mcg/actuation inhalerInhale 2 Puffs as instructed four times daily as needed. FOR WHEEZING ANDSHORTNESS OF BREATH.CPAP Initiate AutoPAP @ 10/20 cm of water with humidification. Mask (perpatient preference) optional chin strap (if indicated) , filters, tubing,humidifier and lifetime supplies. Dx. 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 Prior in [employer].?Social History Main Topics Smoking status: Never Smoker? Smokeless status: Never Used Comment: Parents smoked in childhood home. Alcohol use: Yes 18.0 oz/week Drug use: No Sexual activity: Yes Partners with: Female Comment: vasectomy?FAMILY HISTORY: FAMILY?HISTORYFAMILY HISTORYProblem Relation Age of Onset- Cancer Father ?? ? bone marrow?REVIEW OF SYSTEMSGENERAL: No weight loss, malaise or feversHEENT: No changes in hearing or vision, no nose bleeds or other nasalproblems, +history of glaucomaNECK: Negative for lumps, goiter, pain and significant neck swellingRESPIRATORY: See HPICARDIOVASCULAR: Negative for chest pain, leg swelling, hypertension, CHFor palpitationsGI: See HPIGU: Positive for history of kidney stonesMUSCULOSKELETAL: goutSKIN: Negative for lesions, rash, and itchingPSYCH: Negative for sleep disturbance, mood disorder and recentpsychosocial stressorsHEMATOLOGY/LYMPHOL OGY: Negative for prolonged bleeding, bruising easily orswollen nodesENDOCRINE: Negative for cold or heat intolerance, polyuria, polydipsia andgoiter?PHYSICAL EXAMINATION:?General: The patient is 66 year old male, well nourished, well hydratedin no acute distress. The patient is oriented to time, place, and person.?VITALS: Blood pressure 130/76, pulse 66, height 177.8 cm (5' 10), weight(!) 138.1 kg (304 lb 6.4 oz). Body mass index is 43.68 kg/(m2).?HEENT: Normal cephalic, ataumatic, pupils are equally round, sclera areanicteric, mucous membranes are moist, oropharynx is clear. Neck has nomasses, asymmetry or lymphadenopathy.Respiratory : Clear to auscultation and percussion. Normal respiratoryexcursion and pattern.?Cardiac: Examination is regular rate and rhythm.?Abdominal exam: +Overweight abdomen. Soft, nontender, with no palpablemasses. No hepatosplenomegaly. No palpable hernias.?Rectal exam: exam deferred?Extremities: no clubbing, cyanosis or edema. No adenopathy.?Other:?LABORATO RY VALUES: As Noted?RADIOLOGIC STUDIES: As Noted?AssessmentIMPRESSION: encounter for screening colonoscopy, GERD and cough-would planEGD in addition to colonoscopy?PLAN: We will plan for upper and lower endoscopy, would plan for this juliette performed with MAC due to history of tortuous colon. We discussed therisks and benefits of the planned endoscopy. I have informed the patientthat complications can occur including failure to complete the endoscopyand perforation. The patient had the opportunity to ask questionsconcerning the planned endoscopy. My staff has also explained theprocedure to the patient in understandable terms and has given the patientprinted material concerning the procedure. The patient freely consents tosurgery.?I plan to use golytely bowel preparation for endoscopy?I plan for monitored anesthetic care. Patient noted he is frequentlytraveling and flying out of state for work and because of his workschedule it is difficult to get time away for appointments back in town.He wishes to avoid coming for additional appointment for PAT if possible.Will forward chart to [facility] for review to see if phone appt or same-day PATpossible.?Diagnoses: (Z12.11) Encounter for screening colonoscopy (primaryencounter diagnosis)(K21.9) Gastroesophageal reflux disease, esophagitis presence notspecified?My findings have been communicated to Dr. Martins via shared medicalrecord. This note will be forwarded to Dr. Xiang Martins MD.???Return to Clinic: The patient is instructed to follow-up with me 1 weekpost operatively.?I spent 20 minutes in the visit, with more than 50% of the wokhgqold-zl-fkcw time of the visit in counseling / coordination of care.?? Normal [facility] NURSING PROGon 06-24-2017 NURSING PROG HNO ID: [id number] thor: Laurie (Rn) [place] Gamingervice: NursingAuthor Type: Registered NurseType: Nursing Progress NoteFiled: 06/24/2017 1:46 PMNote Text:[id number] Received from pacu No c/o pain light diet to [id number] Iv removed Pt up Dressing No c/o pain Discharge instructionsreviewed with [id number] Discharge by wheelchair [facility] NURSING PROG HNO ID: [id number] thor: Lila BondsRn) [place] Macdonaldervice: NursingAuthor Type: Registered NurseType: Nursing Progress NoteFiled: 06/24/2017 12:00 PMNote Text: Nursing Progress NotePatient Name: Joaquin Olson SmartMRN: [id number] Location: [place] Endo/[facility] Endo pt arrived paty PACU 3, sleeping, VS as charted.This note was completed by: Lila Macdonald RN [facility] PT EDon 06-24-2017 PT ED HNO ID: [id number] thor: [place] Michael Rnervice: NursingAuthor Type: Registered NurseType: Patient EducationFiled: 06/24/2017 10:33 AMNote Text:PRE OP LEARNING ASSESSMENTPROCEDURE/SURGERY : preopREADINESS TO LEARNCOGNITIVE ABILITY: Alert and orientedMOTIVATION TO LEARN: InterestedFAMILY SUPPORT: High - Very involved in pt carePATIENT LEARNS BEST BY: Verbal InstructionFACTORS AFFECTING LEARNING: NonePHYSICAL LIMITATIONS AFFECTING LEARNING: NoneElectronically Signed By: Laurie Gaming RN In Department: [facility] ENDOSCOPY [facility] SURGICAL PATHOLOGYon 017 SURGICAL PATHOLOGY [facility]: [id number] Physician: DESIRAE KUMAR MD FINAL DIAGNOSIS1. Esophagus, distal, biopsy (A) - Esophageal squamous and inflamed gastriccardia-type mucosa, consistent with reflux esophagitis. - Negative for intestinal metaplasia.2. Stomach, prepyloric polyp, biopsy (B) - Gastric hyperplastic polyp.- Negative for dysplasia.3. Stomach, antrum, biopsy (C) - Gastric antral mucosa with no diagnosticalteration. - No evidence of H. pylori organisms on routine stain. KL/srjulio 06/25/2017 Braden Escamilla M.D.(Electronic Signature) SPEC IMEN SUBMITTEDA: DISTAL ESOPHAGUS, BIOPSY B: PRE-PYLORIC POLYP C: ANTRAL, BIOPSY CLINICAL DATAGERD, SCREENINGGROSS DESCRIPTIONA. Received in formalin is one piece of flores, soft tissue measuring 0.3 x0.2 x 0.2 cm. Totally submitted in one cassette.B. Received in formalin are four pieces of flores, soft tissue aggregating to1.4 x 0.3 x 0.3 cm. Totally submitted in one cassette.C. Received in formalin is one piece of flores, soft tissue measuring 0.3 x0.2 x 0.2 cm. Totally submitted in one cassette.Gross examination performed at [facility], [address] [place] [address] 06/24/2017 9:22:42 PMPatient ID #: [id number] of Report: 06/25/2017Date of Procedure: 06/24/2017Date of Receipt: 06/24/2017Submitted by: DESIRAE KUMAR MDLocation: MEENDDiagnostic interpretation performed at [place] [address]. [facility] Comment on above: Performed By: #### P ATHS ####[facility] [address] [id number] NURSING PROGon 06-23-2017 NURSING PROG HNO ID: [id number] thor: Kelly (Rn) [place] Nelsonervice: (none)Author Type: Registered NurseType: Nursing Progress NoteFiled: 06/23/2017 11:59 AMNote Text:PACC Nurse Progress NoteHistory AND Physical:[facility] Visit Date: 06/22/17Labs Within Last 6 Months:CBC: Date 04/25/17BMP/CMP: Date 04/25/17HBA1C: Date 04/25/17-(5.9)Imaging Within Last 12 Months:Chest X-rayDate of test: 07/18/16Cardiac Testing:EKG in last 12 Months: Yes: Date: 06/22/17, Comment: (SB- 58 BPM)Risk Assessment:N/AAnesthesia Review:N/ANarrative:Per HPI: Pre-DM; CARMELLA-uses CPAP/BMI-44.19Pre-op Considerations:DOS- possible glucose POCChart Check:Sona Fiore 2016 11:56 AM [facility] HOSPon 05-15-2017 HOSP Patient:Joaquin Hendricks SMRN: Height:5' 10(1.778 m)Weight:308 lb (139.708 kg)Outpatient Medications as of 06/24/17:ASCORBIC ACID (VITAMIN C ORAL)albuterol HFA (PROAIR HFA) 90 mcg/actuation inhalerirbesartan (AVAPRO) 150 mg tabletallopurinol (ZYLOPRIM) 300 mg tabletrosuvastatin (CRESTOR) 5 mg tabletomeprazole (PRILOSEC) 20 mg capsulelatanoprost (XALATAN) 0.005 % ophthalmic solutionloratadine (CLARITIN) 10 mg tabletfluticasone (FLONASE) 50 mcg/actuation nasal sprayVardenafil HCl (LEVITRA) 20 mg tabletaspirin, enteric coated (ECOTRIN LOW STRENGTH) 81 mg EC tabletfluticasone (FLOVENT HFA) 110 mcg/actuation inhalerCPAPzolpidem (AMBIEN) 10 mg tabsodium chloride (MICHAEL 128) 5 % ophthalmic ointmentTHERAPEUTIC MULTIVITAMIN TABAdmission/Clinic Administered Medications as of 06/24/17:NaCl 0.9% iv infusionProblem List:Hypertension [I10]Pes planus [M21.40]Insomnia [G47.00]Gout [M10.9]Recurrent kidney stones [N20.0]DDD (degenerative disc disease), cervical [M50.30]Asthma [J45.909]Chronic sinusitis [J32.9]Chronic ethmoidal sinusitis [J32.2]BPH with obstruction/lower urinary tract symptoms [N40.1, N13.8]GERD (gastroesophageal reflux disease) [K21.9]Mixed hyperlipidemia [E78.2]Obstructive sleep apnea [G47.33]Morbid obesity (HCC) [E66.01]Umbilical hernia [K42.9]Prediabetes [R73.03]Colon cancer screening [Z12.11]Allergies:Lisinopri lSimvastatinDate Verified: 06/24/17Lab ValuesNo results within the last 30 days for the following basenames: K,HCTProgress Notes ([facility]):Mara Rubin Ma 06/22/2017 10:07 AM SignedPatient phones requesting refills as follows:Pending Prescriptions Disp Refills PEG 3350 240 GRAM-ELECTROLYTES 22.72 GRAM-6.72 G-5.84 G POWDR FOR SOLN 1 Bottle0 Sig: Take 4,000 mL by mouth one time only for 1 dose. Patient has been identified by name and date of : YesRX INSTRUCTIONS:Patient aware RX will be sent to pharmacy.([facility]) No need to notify patient.Mara Rubin Ma [facility] Bronchoalveolar lavage cultu re with Gram stain Respiratory Culture Haemophilus influenzae [facility] Work Phone: Gram stain for investigation of transfusion reaction Microscopic observation Gram stain Nom (Unsp spec) [facility] Work Phone: Microbial respiratory cultur e Bacteria identified Respiratory culture Nom (Unsp spec) [facility] Work Phone: No Panel Information Nasopharyngeal Culture Positive [facility] Work Phone: SARS-CoV-2 & FLU Antigen (Rapid) [facility] Work Phone: Vital Signs Date Time Vital Sign Value Performing Clinician Facility 04-21-2025 10:190400 Body height 177.[address] Wale Floyd DO Work Phone: [facility] 04-21-2025 10:19-0400 Body mass index (BMI) [Ratio] 43 kg/m2 Dr. Wale Floyd DO Work Phone: 5(806)718-134391 [place] [address] 04-21-2025 10:19-0400 Body temperature 96.3 [degF] Dr. Wale Floyd DO Work Phone: 2(304)829-916140 [place] [address] 04-21-2025 10:19-0400 Body weight 136.[address] Wale Floyd DO Work Phone: 6(200)042-918991 [place] [address] 04-21-2025 10:19-0400 Diastolic blood pressure 69 mm[Hg] Dr. Wale Floyd DO Work Phone: 6(090)464-796640 [place] [address] 04-21-2025 10:19-0400 Heart rate 77 /min Dr. Wale Floyd DO Work Phone: 7(860)050-562040 [place] [address] 04-21-2025 10:19-0400 Respiratory rate 16 /min Dr. Wale Floyd DO Work Phone: 2(125)660-823240 [place] [address] 04-21-2025 10:19-0400 SaO2% (BldA) [Mass fraction] 97 % Dr. Wale Floyd DO Work Phone: 6(553)195-733991 [place] [address] 04-21-2025 10:19-0400 Systolic blood pressure 148 mm[Hg] Dr. Wale Floyd DO Work Phone: 4(427)928-586291 [place] [address] 03-24-2025 10:35-0400 Body height 177.[address] Wale Floyd DO Work Phone: 0(794)228-620140 [place] [address] 03-24-2025 10:35-0400 Body mass index (BMI) [Ratio] 43 kg/m2 Dr. Wale Floyd DO Work Phone: 8(820)293-311891 [place] [address] 03-24-2025 10:35-0400 Body temperature 96.5 [degF] Dr. Wale Floyd DO Work Phone: 8(249)891-632440 [place] [address] 03-24-2025 10:35-0400 Body weight 136.[address] Wale Floyd DO Work Phone: 7(819)780-517840 [place] [address] 03-24-2025 10:35-0400 Diastolic blood pressure 75 mm[Hg] Dr. Wale Floyd DO Work Phone: [facility] 03-24-2025 10:35-0400 Heart rate 71 /min Dr. Wale Floyd DO Work Phone: [facility] 03-24-2025 10:35-0400 Respiratory rate 16 /min Dr. Wale Floyd DO Work Phone: [facility] 03-24-2025 10:35-0400 SaO2% (BldA) [Mass fraction] 94 % Dr. aWle Floyd DO Work Phone: [facility] 03-24-2025 10:35-0400 Systolic blood pressure 149 mm[Hg] Dr. Wale Floyd DO Work Phone: [facility] 02-24-2025 10:13-0400 Body height 177.[address] Art Ureña MD Work Phone: [facility] 02-24-2025 10:13-0400 Body mass index (BMI) [Ratio] 43 kg/m2 Dr. Art Ureña MD Work Phone: [facility] 02-24-2025 10:13-0400 Body temperature 96.6 [degF] Dr. Art Ureña MD Work Phone: [facility] 02-24-2025 10:13-0400 Body weight 136.[address] Art Ureña MD Work Phone: [facility] 02-24-2025 10:13-0400 Diastolic blood pressure 74 mm[Hg] Dr. Art Ureña MD Work Phone: [facility] 02-24-2025 10:13-0400 Heart rate 77 /min Dr. Art Ureña MD Work Phone: [facility] 02-24-2025 10:13-0400 Respiratory rate 16 /min Dr. Art Ureña MD Work Phone: [facility] 02-24-2025 10:13-0400 SaO2% (BldA) [Mass fraction] 95 % Dr. Art Ureña MD Work Phone: [facility] 02-24-2025 10:13-0400 Systolic blood pressure 144 mm[Hg] Dr. Art Urñea MD Work Phone: [facility] 02-12-2025 12:21-0400 Body mass index (BMI) [Ratio] 43.75 kg/m2 Db Fowler PA-C Work Phone: [facility] 02-12-2025 12:21-0400 Body temperature 98.49 [degF] Db Fowler PA-C Work Phone: [facility] 02-12-2025 12:21-0400 Body weight 138.3 kg Db Fowler PA-C Work Phone: [facility] 02-12-2025 12:21-0400 Diastolic blood pressure 84 mm[Hg] Db Fowler PA-C Work Phone: [facility] 02-12-2025 12:21-0400 Heart rate 88 /min Db Fowler PA-C Work Phone: [facility] 02-12-2025 12:21-0400 Respiratory rate 20 /min Db Fowler PA-C Work Phone: [facility] 02-12-2025 12:21-0400 SaO2% (BldA) [Mass fraction] 95 % Db Fowler PA-C Work Phone: [facility] 02-12-2025 12:21-0400 Systolic blood pressure 140 mm[Hg] Db Fowler PA-C Work Phone: [facility] 01-27-2025 10:42-0400 Body height 177.[address] Art Ureña MD Work Phone: [facility] 01-27-2025 10:42-0400 Body mass index (BMI) [Ratio] 43.4 kg/m2 Dr. Art Ureña MD Work Phone: [facility] 01-27-2025 10:42-0400 Body temperature 96.9 [degF] Dr. Art Ureña MD Work Phone: [facility] 01-27-2025 10:42-0400 Body weight 137.[address] Art Ureña MD Work Phone: [facility] 01-27-2025 10:42-0400 Diastolic blood pressure 72 mm[Hg] Dr. Art Ureña MD Work Phone: [facility] 01-27-2025 10:42-0400 Heart rate 70 /min Dr. Art Ureña MD Work Phone: [facility] 01-27-2025 10:42-0400 Respiratory rate 16 /min Dr. Art Ureña MD Work Phone: [facility] 01-27-2025 10:42-0400 SaO2% (BldA) [Mass fraction] 94 % Dr. Art Ureña MD Work Phone: [facility] 01-27-2025 10:42-0400 Systolic blood pressure 121 mm[Hg] Dr. Art Ureña MD Work Phone: [facility] 01-27-2025 08:56-0400 Body mass index (BMI) [Ratio] 43.33 kg/m2 Brenda Click LABEL TACKER.[employer]KE IC[employer] Work Phone: [facility] 01-27-2025 08:56-0400 Body weight 136.99 kg Brenda Click LABEL TACKER.[employer] Work Phone: [facility] 12-30-2024 10:38-0400 Body mass index (BMI) [Ratio] 43 kg/m2 Dr. Art Ureña MD Work Phone: [facility] 12-30-2024 10:38-0400 Body temperature 97.3 [degF] Dr. Art Ureña MD Work Phone: [facility] 12-30-2024 10:38-0400 Body weight 136.[address] Art Ureña MD Work Phone: [facility] 12-30-2024 10:38-0400 Diastolic blood pressure 64 mm[Hg] Dr. Art Ureña MD Work Phone: [facility] 12-30-2024 10:38-0400 Heart rate 77 /min Dr. Art Ureña MD Work Phone: [facility] 12-30-2024 10:38-0400 Respiratory rate 16 /min Dr. Art Ureña MD Work Phone: [facility] 12-30-2024 10:38-0400 SaO2% (BldA) [Mass fraction] 95 % Dr. Art Ureña MD Work Phone: [facility] 12-30-2024 10:38-0400 Systolic blood pressure 141 mm[Hg] Dr. Art Ureña MD Work Phone: [facility] 12-23-2024 15:04-0400 Body mass index (BMI) [Ratio] 43.45 kg/m2 Celena Sherri LABEL TACKER.[employer] Work Phone: [facility] 12-23-2024 15:04-0400 Body weight 137.35 kg Celena Sherri LABEL TACKER.[employer] Work Phone: [facility] 12-23-2024 15:04-0400 Diastolic blood pressure 70 mm[Hg] Celena Sherri LABEL TACKER.[employer] Work Phone: [facility] 12-23-2024 15:04-0400 Heart rate 72 /min Celena Sherri LABEL TACKER.[employer] Work Phone: [facility] 12-23-2024 15:04-0400 Respiratory rate 14 /min Celena Sherri LABEL TACKER.[employer] Work Phone: [facility] 12-23-2024 15:04-0400 SaO2% (BldA) [Mass fraction] 97 % Celena Sherri LABEL TACKER.[employer] Work Phone: [facility] 12-23-2024 15:04-0400 Systolic blood pressure 124 mm[Hg] Celenaerica Dailyhollie ALAMO.[employer]KE ICER Work Phone: [facility] 12-18-2024 12:47-0400 Body mass index (BMI) [Ratio] 43.65 kg/m2 Tricia Nuñez APRN.[employer] Work Phone: [facility] 12-18-2024 12:47-0400 Body temperature 98.29 [degF] Tricia Nuñez APRN.[employer] IC[employer] Work Phone: [facility] 12-18-2024 12:47-0400 Body weight 138 kg Tricia Nuñez APRN.[employer] IC[employer] Work Phone: [facility] 12-18-2024 12:47-0400 Diastolic blood pressure 82 mm[Hg] Tricia Nuñez APRN.[employer]KE IC[employer] Work Phone: [facility] 12-18-2024 12:47-0400 Heart rate 81 /min Tricia Nuñez APRN.[employer] IC[employer] Work Phone: [facility] 12-18-2024 12:47-0400 Respiratory rate 22 /min Tricia Nuñez APRN.[employer] Work Phone: [facility] 12-18-2024 12:47-0400 SaO2% (BldA) [Mass fraction] 96 % Tricia Nuñez APRN.[employer] IC[employer] Work Phone: [facility] 12-18-2024 12:47-0400 Systolic blood pressure 162 mm[Hg] Tricia Nuñez APRN.[employer]KE ICER Work Phone: [facility] 12-02-2024 11:14-0400 Body height 177.[address] Art Ureña MD Work Phone: [facility] 12-02-2024 11:14-0400 Body temperature 97.4 [degF] Dr. Art Ureña MD Work Phone: [facility] 12-02-2024 11:14-0400 Diastolic blood pressure 66 mm[Hg] Dr. Art Ureña MD Work Phone: [facility] 12-02-2024 11:14-0400 Heart rate 88 /min Dr. Art Ureña MD Work Phone: [facility] 12-02-2024 11:14-0400 Respiratory rate 16 /min Dr. Art Ureña MD Work Phone: [facility] 12-02-2024 11:14-0400 SaO2% (BldA) [Mass fraction] 93 % Dr. Art Ureña MD Work Phone: [facility] 12-02-2024 11:14-0400 Systolic blood pressure 134 mm[Hg] Dr. Art Ureña MD Work Phone: [facility] 11-10-2024 14:52-0400 Body mass index (BMI) [Ratio] 43.2 kg/m2 Dr. Art Ureña MD Work Phone: [facility] 11-10-2024 14:52-0400 Body weight 136.[address] Art Ureña MD Work Phone: [facility] 11-10-2024 14:52-0400 Diastolic blood pressure 73 mm[Hg] Dr. Art Ureña MD Work Phone: [facility] 11-10-2024 14:52-0400 Heart rate 75 /min Dr. Art Ureña MD Work Phone: [facility] 11-10-2024 14:52-0400 Respiratory rate 16 /min Dr. Art Ureña MD Work Phone: [facility] 11-10-2024 14:52-0400 Systolic blood pressure 123 mm[Hg] Dr. Art Ureña MD Work Phone: [facility] 11-04-2024 10:09-0400 Body mass index (BMI) [Ratio] 43 kg/m2 Dr. Art Ureña MD Work Phone: [facility] 11-04-2024 10:09-0400 Body temperature 96.3 [degF] Dr. Art Ureña MD Work Phone: [facility] 11-04-2024 10:09-0400 Body weight 136.[address] Art Ureña MD Work Phone: [facility] 11-04-2024 10:09-0400 Diastolic blood pressure 73 mm[Hg] Dr. Art Ureña MD Work Phone: [facility] 11-04-2024 10:09-0400 Heart rate 84 /min Dr. Art Ureña MD Work Phone: [facility] 11-04-2024 10:09-0400 Respiratory rate 16 /min Dr. Art Ureña MD Work Phone: [facility] 11-04-2024 10:09-0400 SaO2% (BldA) [Mass fraction] 93 % Dr. Art Ureña MD Work Phone: [facility] 11-04-2024 10:09-0400 Systolic blood pressure 157 mm[Hg] Dr. Art Ureña MD Work Phone: [facility] 10-07-2024 10:09-0400 Body mass index (BMI) [Ratio] 42.6 kg/m2 Dr. Art Ureña MD Work Phone: [facility] 10-07-2024 10:09-0400 Body temperature 96.5 [degF] Dr. Art Ureña MD Work Phone: [facility] 10-07-2024 10:09-0400 Body weight 134.[address] Art Ureña MD Work Phone: [facility] 10-07-2024 10:09-0400 Diastolic blood pressure 69 mm[Hg] Dr. Art Ureña MD Work Phone: [facility] 10-07-2024 10:09-0400 Heart rate 95 /min Dr. Art Ureña MD Work Phone: [facility] 10-07-2024 10:09-0400 Respiratory rate 18 /min Dr. Art Ureña MD Work Phone: [facility] 10-07-2024 10:09-0400 SaO2% (BldA) [Mass fraction] 95 % Dr. Art Ureña MD Work Phone: [facility] 10-07-2024 10:09-0400 Systolic blood pressure 148 mm[Hg] Dr. Art Ureña MD Work Phone: [facility] 09-30-2024 13:41-0400 Body height 177.8 cm Aurelia Mareth PA-C Work Phone: [facility] 09-30-2024 13:41-0400 Body mass index (BMI) [Ratio] 43.02 kg/m2 Aurelia Mareth PA-C Work Phone: [facility] 09-30-2024 13:41-0400 Body weight 136 kg Aurelia Mareth PA-C Work Phone: [facility] 09-19-2024 16:04-0400 Body mass index (BMI) [Ratio] 43.89 kg/m2 Hari Aden MD Work Phone: [facility] 09-19-2024 16:04-0400 Body temperature 97.7 [degF] Hari Aden MD Work Phone: [facility] 09-19-2024 16:04-0400 Body weight 135.81 kg Hari Aden MD Work Phone: [facility] 09-19-2024 16:04-0400 Diastolic blood pressure 76 mm[Hg] Hari Aden MD Work Phone: [facility] 09-19-2024 16:04-0400 Heart rate 80 /min Hari Aden MD Work Phone: [facility] 09-19-2024 16:04-0400 Systolic blood pressure 156 mm[Hg] Hari Aden MD Work Phone: [facility] 09-09-2024 10:48-0500 Body height 177.[address] Art Ureña MD Work Phone: [facility] 09-09-2024 10:48-0500 Body mass index (BMI) [Ratio] 42.3 kg/m2 Dr. Art Ureña MD Work Phone: [facility] 09-09-2024 10:48-0500 Body temperature 96.9 [degF] Dr. Art Ureña MD Work Phone: [facility] 09-09-2024 10:48-0500 Body weight 133.[address] Art Ureña MD Work Phone: [facility] 09-09-2024 10:48-0500 Diastolic blood pressure 61 mm[Hg] Dr. Art Ureña MD Work Phone: [facility] 09-09-2024 10:48-0500 Heart rate 78 /min Dr. Art Ureña MD Work Phone: [facility] 09-09-2024 10:48-0500 Respiratory rate 16 /min Dr. Art Ureña MD Work Phone: [facility] 09-09-2024 10:48-0500 SaO2% (BldA) [Mass fraction] 97 % Dr. Art Ureña MD Work Phone: [facility] 09-09-2024 10:48-0500 Systolic blood pressure 142 mm[Hg] Dr. Art Ureña MD Work Phone: [facility] 08-26-2024 10:54-0500 Body mass index (BMI) [Ratio] 43.95 kg/m2 Fang Mayen APRN.[employer]KE IC[employer] Work Phone: [facility] 08-26-2024 10:54-0500 Body weight 135.99 kg Fang Mayen APRN.[employer] Work Phone: [facility] 08-26-2024 10:54-0500 Diastolic blood pressure 78 mm[Hg] Fang Tiarra LABEL TACKER.[employer] Work Phone: [facility] 08-26-2024 10:54-0500 Heart rate 63 /min Fang Tiarra LABEL TACKER.[employer] Work Phone: [facility] 08-26-2024 10:54-0500 Respiratory rate 16 /min Fang Tiarra LABEL TACKER.[employer] Work Phone: [facility] 08-26-2024 10:54-0500 SaO2% (BldA) [Mass fraction] 99 % Fang Tiarra LABEL TACKER.[employer] Work Phone: [facility] 08-26-2024 10:54-0500 Systolic blood pressure 126 mm[Hg] Fang Tiarra LABEL TACKER.[employer] Work Phone: [facility] 08-12-2024 10:26-0500 Body mass index (BMI) [Ratio] 43 kg/m2 Dr. Art Ureña MD Work Phone: [facility] 08-12-2024 10:26-0500 Body temperature 97.2 [degF] Dr. Art Ureña MD Work Phone: [facility] 08-12-2024 10:26-0500 Body weight 136.[address] Art Ureña MD Work Phone: [facility] 08-12-2024 10:26-0500 Diastolic blood pressure 78 mm[Hg] Dr. Art Ureña MD Work Phone: [facility] 08-12-2024 10:26-0500 Heart rate 85 /min Dr. Art Ureña MD Work Phone: [facility] 08-12-2024 10:26-0500 Respiratory rate 16 /min Dr. Art Ureña MD Work Phone: [facility] 08-12-2024 10:26-0500 SaO2% (BldA) [Mass fraction] 95 % Dr. Art Ureña MD Work Phone: [facility] 08-12-2024 10:26-0500 Systolic blood pressure 148 mm[Hg] Dr. Art Ureña MD Work Phone: [facility] 08-05-2024 14:53-0500 Body mass index (BMI) [Ratio] 43.89 kg/m2 Taylor Stan LABEL TACKER.[employer] Work Phone: [facility] 08-05-2024 14:53-0500 Body weight 135.81 kg Taylor Stan LABEL TACKER.[employer] Work Phone: [facility] 08-05-2024 14:53-0500 Diastolic blood pressure 80 mm[Hg] Taylor Stan LABEL TACKER.[employer] Work Phone: [facility] 08-05-2024 14:53-0500 Heart rate 90 /min Taylor Stan LABEL TACKER.[employer] Work Phone: [facility] 08-05-2024 14:53-0500 SaO2% (BldA) [Mass fraction] 94 % Taylor Stan LABEL TACKER.[employer] Work Phone: [facility] 08-05-2024 14:53-0500 Systolic blood pressure 134 mm[Hg] Taylor Stan LABEL TACKER.[employer] Work Phone: [facility] 07-29-2024 10:00-0500 Diastolic blood pressure 82 mm[Hg] Shabana Ramos MD Work Phone: [facility] 07-29-2024 10:00-0500 Systolic blood pressure 132 mm[Hg] Shabana Ramos MD Work Phone: [facility] 07-29-2024 09:42-0500 Body height 175.9 cm Pulm Wstr Work Phone: [facility] 07-29-2024 09:42-0500 Body mass index (BMI) [Ratio] 44.42 kg/m2 Pulm Wstr Work Phone: [facility] 07-29-2024 09:42-0500 Body weight 137.44 kg Pulm Wstr Work Phone: [facility] 07-29-2024 09:42-0500 Heart rate 87 /min Pulm Wstr Work Phone: [facility] 07-29-2024 09:42-0500 Respiratory rate 13 /min Pulm Wstr Work Phone: [facility] 07-29-2024 09:42-0500 SaO2% (BldA) [Mass fraction] 98 % Pulm Wstr Work Phone: [facility] 07-15-2024 09:57-0500 Body mass index (BMI) [Ratio] 43 kg/m2 Dr. Art Ureña MD Work Phone: [facility] 07-15-2024 09:57-0500 Body temperature 96.9 [degF] Dr. Art Ureña MD Work Phone: [facility] 07-15-2024 09:57-0500 Body weight 136.[address] Art Ureña MD Work Phone: [facility] 07-15-2024 09:57-0500 Diastolic blood pressure 64 mm[Hg] Dr. Art Ureña MD Work Phone: [facility] 07-15-2024 09:57-0500 Heart rate 67 /min Dr. Art Ureña MD Work Phone: [facility] 07-15-2024 09:57-0500 Respiratory rate 14 /min Dr. Art Ureña MD Work Phone: [facility] 07-15-2024 09:57-0500 SaO2% (BldA) [Mass fraction] 94 % Dr. Art Ureña MD Work Phone: [facility] 07-15-2024 09:57-0500 Systolic blood pressure 117 mm[Hg] Dr. Art Ureña MD Work Phone: [facility] 06-17-2024 09:40-0500 Body temperature 97.8 [degF] Dr. Art Ureña MD Work Phone: [facility] 06-17-2024 09:40-0500 Diastolic blood pressure 60 mm[Hg] Dr. Art Ureña MD Work Phone: [facility] 06-17-2024 09:40-0500 Heart rate 77 /min Dr. Art Ureña MD Work Phone: [facility] 06-17-2024 09:40-0500 Respiratory rate 16 /min Dr. Art Ureña MD Work Phone: [facility] 06-17-2024 09:40-0500 SaO2% (BldA) [Mass fraction] 97 % Dr. Art Ureña MD Work Phone: [facility] 06-17-2024 09:40-0500 Systolic blood pressure 130 mm[Hg] Dr. Art Ureña MD Work Phone: [facility] 05-20-2024 10:18-0500 Body temperature 97.4 [degF] Dr. Art Ureña MD Work Phone: [facility] 05-20-2024 10:18-0500 Diastolic blood pressure 67 mm[Hg] Dr. Art Ureña MD Work Phone: [facility] 05-20-2024 10:18-0500 Heart rate 88 /min Dr. Art Ureña MD Work Phone: [facility] 05-20-2024 10:18-0500 Respiratory rate 16 /min Dr. Art Ureña MD Work Phone: [facility] 05-20-2024 10:18-0500 SaO2% (BldA) [Mass fraction] 94 % Dr. Art Ureña MD Work Phone: [facility] 05-20-2024 10:18-0500 Systolic blood pressure 155 mm[Hg] Dr. Art Ureña MD Work Phone: [facility] 04-13-2024 15:33-0400 Body mass index (BMI) [Ratio] 43.84 kg/m2 Brenda Click LABEL TACKER.[employer] Work Phone: [facility] 04-13-2024 15:33-0400 Body weight 135.63 kg Brenda Click LABEL TACKER.[employer] Work Phone: [facility] 04-13-2024 15:33-0400 Diastolic blood pressure 82 mm[Hg] Brenda Click LABEL TACKER.[employer] Work Phone: [facility] 04-13-2024 15:33-0400 Heart rate 80 /min Brenda Click LABEL TACKER.[employer] Work Phone: [facility] 04-13-2024 15:33-0400 Respiratory rate 18 /min Brenda Click LABEL TACKER.[employer] Work Phone: [facility] 04-13-2024 15:33-0400 SaO2% (BldA) [Mass fraction] 95 % Brenda Click LABEL TACKER.[employer] Work Phone: [facility] Comment on above: RA 04-13-2024 15:33-0400 Systolic blood pressure 132 mm[Hg] Brenda Click LABEL TACKER.[employer] Work Phone: [facility] 04-03-2024 13:36-0400 Body mass index (BMI) [Ratio] 44.6 kg/m2 Tricia Nuñez APRN.[employer] Work Phone: [facility] 04-03-2024 13:36-0400 Body temperature 98.8 [degF] Tricia Nuñez LABEL TACKER.[employer] Work Phone: [facility] 04-03-2024 13:36-0400 Body weight 138 kg Tricia Nuñez LABEL TACKER.[employer] Work Phone: [facility] 04-03-2024 13:36-0400 Diastolic blood pressure 60 mm[Hg] Tricia Nuñez LABEL TACKER.[employer] Work Phone: [facility] 04-03-2024 13:36-0400 Heart rate 120 /min Tricia Nuñez LABEL TACKER.[employer] Work Phone: [facility] 04-03-2024 13:36-0400 Respiratory rate 18 /min Tricia Nuñez APRN.[employer] Work Phone: [facility] 04-03-2024 13:36-0400 SaO2% (BldA) [Mass fraction] 96 % Tricia Nuñez APRN.[employer] Work Phone: [facility] 04-03-2024 13:36-0400 Systolic blood pressure 120 mm[Hg] Tricia Nuñez APRN.[employer] Work Phone: [facility] 02-25-2024 10:08-0400 Body mass index (BMI) [Ratio] 44.13 kg/m2 Shabana Ramos MD Work Phone: [facility] 02-25-2024 10:08-0400 Body weight 136.53 kg Shabana Ramos MD Work Phone: [facility] 02-25-2024 10:08-0400 Diastolic blood pressure 78 mm[Hg] Shabana Ramos MD Work Phone: [facility] 02-25-2024 10:08-0400 Heart rate 96 /min Shabana Ramos MD Work Phone: [facility] 02-25-2024 10:08-0400 Respiratory rate 18 /min Shabana Ramos MD Work Phone: [facility] 02-25-2024 10:08-0400 SaO2% (BldA) [Mass fraction] 95 % Shabana Ramos MD Work Phone: [facility] 02-25-2024 10:08-0400 Systolic blood pressure 136 mm[Hg] Shabana Ramos MD Work Phone: [facility] 11-04-2023 14:04-0400 Body height 177.[address] Art Ureña Work Phone: [facility] 11-04-2023 14:04-0400 Body mass index (BMI) [Ratio] 41.5 kg/m2 Dr. Art Ureña Work Phone: [facility] 11-04-2023 14:04-0400 Body temperature 97.5 [degF] Dr. Art Ureña Work Phone: [facility] 11-04-2023 14:04-0400 Body weight 131.[address] Art rUeña Work Phone: [facility] 11-04-2023 14:04-0400 Diastolic blood pressure 69 mm[Hg] Dr. Art Ureña Work Phone: [facility] 11-04-2023 14:04-0400 Heart rate 71 /min Dr. Art Ureña Work Phone: [facility] 11-04-2023 14:04-0400 Respiratory rate 16 /min Dr. Art Ureña Work Phone: [facility] 11-04-2023 14:04-0400 SaO2% (BldA) [Mass fraction] 95 % Dr. Art Ureña Work Phone: [facility] 11-04-2023 14:04-0400 Systolic blood pressure 132 mm[Hg] Dr. Art Ureña Work Phone: [facility] 10-21-2023 16:26-0400 Body height 177.[address] Art Ureña Work Phone: [facility] 10-21-2023 16:26-0400 Body mass index (BMI) [Ratio] 42 kg/m2 Dr. Art Ureña Work Phone: [facility] 10-21-2023 16:26-0400 Body temperature 98.6 [degF] Dr. Art Ureña Work Phone: [facility] 10-21-2023 16:26-0400 Body weight 132.[address] Art Ureña Work Phone: [facility] 10-21-2023 16:26-0400 Diastolic blood pressure 73 mm[Hg] Dr. Art Ureña Work Phone: [facility] 10-21-2023 16:26-0400 Heart rate 65 /min Dr. Art Ureña Work Phone: [facility] 10-21-2023 16:26-0400 Respiratory rate 16 /min Dr. Art Ureña Work Phone: [facility] 10-21-2023 16:26-0400 SaO2% (BldA) [Mass fraction] 92 % Dr. Art Ureña Work Phone: [facility] 10-21-2023 16:26-0400 Systolic blood pressure 148 mm[Hg] Dr. Art Ureña Work Phone: [facility] 10-07-2023 13:45-0400 Body height 177.[address] Art Ureña Work Phone: [facility] 10-07-2023 13:45-0400 Body mass index (BMI) [Ratio] 41.5 kg/m2 Dr. Art Ureña Work Phone: [facility] 10-07-2023 13:45-0400 Body temperature 96.9 [degF] Dr. Art Ureña Work Phone: [facility] 10-07-2023 13:45-0400 Body weight 131.[address] Art Ureña Work Phone: [facility] 10-07-2023 13:45-0400 Diastolic blood pressure 75 mm[Hg] Dr. Art Ureña Work Phone: [facility] 10-07-2023 13:45-0400 Heart rate 80 /min Dr. Art Ureña Work Phone: [facility] 10-07-2023 13:45-0400 Respiratory rate 16 /min Dr. Art Ureña Work Phone: [facility] 10-07-2023 13:45-0400 SaO2% (BldA) [Mass fraction] 94 % Dr. Art Ureña Work Phone: [facility] 10-07-2023 13:45-0400 Systolic blood pressure 138 mm[Hg] Dr. Art Ureña Work Phone: [facility] 09-09-2023 13:55-0500 Body height 177.[address] Art Ureña Work Phone: [facility] 09-09-2023 13:55-0500 Body temperature 97 [degF] Dr. Art Ureña Work Phone: [facility] 09-09-2023 13:55-0500 Diastolic blood pressure 75 mm[Hg] Dr. Art Ureañ Work Phone: [facility] 09-09-2023 13:55-0500 Heart rate 73 /min Dr. Art Ureña Work Phone: [facility] 09-09-2023 13:55-0500 Respiratory rate 16 /min Dr. Art Ureña Work Phone: [facility] 09-09-2023 13:55-0500 SaO2% (BldA) [Mass fraction] 97 % Dr. Art Ureña Work Phone: [facility] 09-09-2023 13:55-0500 Systolic blood pressure 125 mm[Hg] Dr. Art Ureña Work Phone: [facility] 08-19-2023 11:16-0500 Body weight 129.73 kg Barbara Martins PA-C Work Phone: [facility] 08-19-2023 11:16-0500 Diastolic blood pressure 74 mm[Hg] Barbara Martins PA-C Work Phone: [facility] 08-19-2023 11:16-0500 Systolic blood pressure 128 mm[Hg] Barbara Martins PA-C Work Phone: [facility] 08-10-2023 15:00-0500 Body height 177.[address] Art Ureña Work Phone: [facility] 08-10-2023 15:00-0500 Body mass index (BMI) [Ratio] 41.5 kg/m2 Dr. Art Ureña Work Phone: [facility] 08-10-2023 15:00-0500 Body temperature 97.3 [degF] Dr. Art Ureña Work Phone: [facility] 08-10-2023 15:00-0500 Body weight 131.[address] Art Ureña Work Phone: [facility] 08-10-2023 15:00-0500 Diastolic blood pressure 68 mm[Hg] Dr. Art Ureña Work Phone: [facility] 08-10-2023 15:00-0500 Heart rate 80 /min Dr. Art Ureña Work Phone: [facility] 08-10-2023 15:00-0500 Respiratory rate 18 /min Dr. Art Ureña Work Phone: [facility] 08-10-2023 15:00-0500 SaO2% (BldA) [Mass fraction] 97 % Dr. Art Ureña Work Phone: [facility] 08-10-2023 15:00-0500 Systolic blood pressure 140 mm[Hg] Dr. Art Ureña Work Phone: [facility] 08-06-2023 14:20-0500 Body weight 129.5 kg Elena Dior MD Work Phone: [facility] 08-06-2023 14:20-0500 Diastolic blood pressure 80 mm[Hg] Elena Dior MD Work Phone: [facility] 08-06-2023 14:20-0500 Heart rate 79 /min Elena Dior MD Work Phone: [facility] 08-06-2023 14:20-0500 SaO2% (BldA) [Mass fraction] 94 % Elena Dior MD Work Phone: [facility] 08-06-2023 14:20-0500 Systolic blood pressure 137 mm[Hg] Elena Dior MD Work Phone: [facility] 07-13-2023 14:33-0500 Body height 177.[address] Art Ureña Work Phone: [facility] 07-13-2023 14:33-0500 Body temperature 97.4 [degF] Dr. Art Ureña Work Phone: [facility] 07-13-2023 14:33-0500 Diastolic blood pressure 60 mm[Hg] Dr. Art Ureña Work Phone: [facility] 07-13-2023 14:33-0500 Heart rate 82 /min Dr. Art Ureña Work Phone: [facility] 07-13-2023 14:33-0500 Respiratory rate 16 /min Dr. Art Ureña Work Phone: [facility] 07-13-2023 14:33-0500 SaO2% (BldA) [Mass fraction] 96 % Dr. Art Ureña Work Phone: [facility] 07-13-2023 14:33-0500 Systolic blood pressure 122 mm[Hg] Dr. Art Ureña Work Phone: [facility] 07-02-2023 10:10-0500 Body mass index (BMI) [Ratio] 41.1 kg/m2 Dr. Art Ureña Work Phone: [facility] 07-02-2023 10:10-0500 Body weight 130.[address] Art Ureña Work Phone: [facility] 07-02-2023 10:10-0500 Diastolic blood pressure 66 mm[Hg] Dr. Art Ureña Work Phone: [facility] 07-02-2023 10:10-0500 Heart rate 62 /min Dr. Art Ureña Work Phone: [facility] 07-02-2023 10:10-0500 Respiratory rate 16 /min Dr. Art Ureña Work Phone: [facility] 07-02-2023 10:10-0500 Systolic blood pressure 126 mm[Hg] Dr. Art Ureña Work Phone: [facility] 06-15-2023 14:58-0500 Body height 177.[address] Art Ureña Work Phone: [facility] 06-15-2023 14:58-0500 Body temperature 96.9 [degF] Dr. Art Ureña Work Phone: [facility] 06-15-2023 14:58-0500 Diastolic blood pressure 73 mm[Hg] Dr. Art Ureña Work Phone: [facility] 06-15-2023 14:58-0500 Heart rate 80 /min Dr. Art Ureña Work Phone: [facility] 06-15-2023 14:58-0500 Respiratory rate 16 /min Dr. Art Ureña Work Phone: [facility] 06-15-2023 14:58-0500 SaO2% (BldA) [Mass fraction] 99 % Dr. Art Ureña Work Phone: [facility] 06-15-2023 14:58-0500 Systolic blood pressure 147 mm[Hg] Dr. Art Ureña Work Phone: [facility] 05-18-2023 11:01-0500 Body weight 127.01 kg Barbara GOLDEN-C Work Phone: [facility] 05-18-2023 11:01-0500 Diastolic blood pressure 80 mm[Hg] Barbara Martins PA-C Work Phone: [facility] 05-18-2023 11:01-0500 Heart rate 63 /min Barbara Martins PA-C Work Phone: [facility] 05-18-2023 11:01-0500 Respiratory rate 16 /min Barbara Martins PA-C Work Phone: [facility] 05-18-2023 11:01-0500 SaO2% (BldA) [Mass fraction] 95 % Barbara Martins PA-C Work Phone: [facility] 05-18-2023 11:01-0500 Systolic blood pressure 142 mm[Hg] Barbara Martins PA-C Work Phone: [facility] 05-15-2023 13:58-0500 Body height 177.[address] Art Ureña Work Phone: [facility] 05-15-2023 13:58-0500 Body temperature 97.1 [degF] Dr. Art Ureña Work Phone: [facility] 05-15-2023 13:58-0500 Diastolic blood pressure 82 mm[Hg] Dr. Art Ureña Work Phone: [facility] 05-15-2023 13:58-0500 Heart rate 77 /min Dr. Art Ureña Work Phone: [facility] 05-15-2023 13:58-0500 Respiratory rate 16 /min Dr. Art Ureña Work Phone: [facility] 05-15-2023 13:58-0500 Systolic blood pressure 149 mm[Hg] Dr. Art Ureña Work Phone: [facility] 05-07-2023 13:56-0400 Body mass index (BMI) [Ratio] 40.1 kg/m2 Dr. Art Ureña Work Phone: [facility] 05-07-2023 13:56-0400 Body temperature 98 [degF] Dr. Art Ureña Work Phone: [facility] 05-07-2023 13:56-0400 Body weight [address] Art Ureña Work Phone: [facility] 05-07-2023 13:56-0400 Diastolic blood pressure 78 mm[Hg] Dr. Art Ureña Work Phone: [facility] 05-07-2023 13:56-0400 Heart rate 110 /min Dr. Art Ureña Work Phone: [facility] 05-07-2023 13:56-0400 Respiratory rate 18 /min Dr. Art Ureña Work Phone: [facility] 05-07-2023 13:56-0400 SaO2% (BldA) [Mass fraction] 96 % Dr. Art Ureña Work Phone: [facility] 05-07-2023 13:56-0400 Systolic blood pressure 118 mm[Hg] Dr. Art Ureña Work Phone: [facility] 04-17-2023 13:55-0400 Body height 177.[address] Art Ureña Work Phone: [facility] 04-17-2023 13:55-0400 Body mass index (BMI) [Ratio] 41.3 kg/m2 Dr. Art Ureña Work Phone: [facility] 04-17-2023 13:55-0400 Body temperature 97.5 [degF] Dr. Art Ureña Work Phone: [facility] 04-17-2023 13:55-0400 Body weight 130.[address] Art Ureña Work Phone: [facility] 04-17-2023 13:55-0400 Diastolic blood pressure 68 mm[Hg] Dr. Art Ureña Work Phone: [facility] 04-17-2023 13:55-0400 Heart rate 85 /min Dr. Art Ureña Work Phone: [facility] 04-17-2023 13:55-0400 Respiratory rate 16 /min Dr. Art Ureña Work Phone: [facility] 04-17-2023 13:55-0400 SaO2% (BldA) [Mass fraction] 93 % Dr. Art Ureña Work Phone: [facility] 04-17-2023 13:55-0400 Systolic blood pressure 154 mm[Hg] Dr. Art Ureña Work Phone: [facility] 04-06-2023 10:45-0400 Body mass index (BMI) [Ratio] 41.5 kg/m2 Dr. Art Ureña Work Phone: [facility] 04-06-2023 10:45-0400 Body temperature 98.1 [degF] Dr. Art Ureña Work Phone: [facility] 04-06-2023 10:45-0400 Body weight 131.[address] Art Ureña Work Phone: [facility] 04-06-2023 10:45-0400 Diastolic blood pressure 76 mm[Hg] Dr. Art Ureña Work Phone: [facility] 04-06-2023 10:45-0400 Heart rate 63 /min Dr. Art Ureña Work Phone: [facility] 04-06-2023 10:45-0400 Respiratory rate 16 /min Dr. Art Ureña Work Phone: [facility] 04-06-2023 10:45-0400 SaO2% (BldA) [Mass fraction] 95 % Dr. Art Ureña Work Phone: [facility] 04-06-2023 10:45-0400 Systolic blood pressure 131 mm[Hg] Dr. Art Ureña Work Phone: [facility] 03-31-2023 14:06-0400 Body weight 131.09 kg Elena Dior MD Work Phone: [facility] 03-31-2023 14:06-0400 Diastolic blood pressure 78 mm[Hg] Elena Dior MD Work Phone: [facility] 03-31-2023 14:06-0400 Heart rate 78 /min Elena Dior MD Work Phone: [facility] 03-31-2023 14:06-0400 SaO2% (BldA) [Mass fraction] 96 % Elena Dior MD Work Phone: [facility] 03-31-2023 14:06-0400 Systolic blood pressure 143 mm[Hg] Elena Dior MD Work Phone: [facility] 03-20-2023 14:01-0400 Body mass index (BMI) [Ratio] 40.1 kg/m2 Dr. Art Ureña Work Phone: [facility] 03-20-2023 14:01-0400 Body temperature 97.2 [degF] Dr. Art Ureña Work Phone: [facility] 03-20-2023 14:01-0400 Body weight [address] Art Ureña Work Phone: [facility] 03-20-2023 14:01-0400 Diastolic blood pressure 79 mm[Hg] Dr. Art Ureña Work Phone: [facility] 03-20-2023 14:01-0400 Heart rate 95 /min Dr. Art Ureña Work Phone: [facility] 03-20-2023 14:01-0400 Respiratory rate 18 /min Dr. Art Ureña Work Phone: [facility] 03-20-2023 14:01-0400 SaO2% (BldA) [Mass fraction] 95 % Dr. Art Ureña Work Phone: [facility] 03-20-2023 14:01-0400 Systolic blood pressure 124 mm[Hg] Dr. Art Ureña Work Phone: [facility] 02-23-2023 14:35-0400 Body mass index (BMI) [Ratio] 39.6 kg/m2 Dr. Art Ureña Work Phone: [facility] 02-23-2023 14:35-0400 Body temperature 98 [degF] Dr. Art Ureña Work Phone: [facility] 02-23-2023 14:35-0400 Body weight 125.[address] Art Ureña Work Phone: [facility] 02-23-2023 14:35-0400 Diastolic blood pressure 69 mm[Hg] Dr. Art Ureña Work Phone: [facility] 02-23-2023 14:35-0400 Heart rate 85 /min Dr. Art Ureña Work Phone: [facility] 02-23-2023 14:35-0400 Respiratory rate 16 /min Dr. Art Ureña Work Phone: [facility] 02-23-2023 14:35-0400 SaO2% (BldA) [Mass fraction] 93 % Dr. Art Ureña Work Phone: [facility] 02-23-2023 14:35-0400 Systolic blood pressure 124 mm[Hg] Dr. Art Ureña Work Phone: [facility] 02-12-2023 09:29-0400 Body weight 128.37 kg Shabana Ramos MD Work Phone: [facility] 02-12-2023 09:29-0400 Diastolic blood pressure 76 mm[Hg] Shabana Ramos MD Work Phone: [facility] 02-12-2023 09:29-0400 Systolic blood pressure 142 mm[Hg] Shabana Ramos MD Work Phone: [facility] 01-23-2023 12:55-0400 Body mass index (BMI) [Ratio] 40 kg/m2 Dr. Art Ureña Work Phone: [facility] 01-23-2023 12:55-0400 Body temperature 97.5 [degF] Dr. Art Ureña Work Phone: [facility] 01-23-2023 12:55-0400 Body weight 126.[address] Art Ureña Work Phone: [facility] 01-23-2023 12:55-0400 Diastolic blood pressure 83 mm[Hg] Dr. Art Ureña Work Phone: [facility] 01-23-2023 12:55-0400 Heart rate 89 /min Dr. Art Ureña Work Phone: [facility] 01-23-2023 12:55-0400 Respiratory rate 18 /min Dr. Art Ureña Work Phone: [facility] 01-23-2023 12:55-0400 SaO2% (BldA) [Mass fraction] 94 % Dr. Art Ureña Work Phone: [facility] 01-23-2023 12:55-0400 Systolic blood pressure 138 mm[Hg] Dr. rAt Ureña Work Phone: [facility] 01-22-2023 08:22-0400 Body mass index (BMI) [Ratio] 39.9 kg/m2 Dr. Art Ureña Work Phone: [facility] 01-22-2023 08:22-0400 Body temperature 98.1 [degF] Dr. Art Ureña Work Phone: [facility] 01-22-2023 08:22-0400 Body weight 126.[address] Art Ureña Work Phone: [facility] 01-22-2023 08:22-0400 Diastolic blood pressure 79 mm[Hg] Dr. Art Ureña Work Phone: [facility] 01-22-2023 08:22-0400 Heart rate 71 /min Dr. Art Ureña Work Phone: [facility] 01-22-2023 08:22-0400 Respiratory rate 18 /min Dr. Art Urñea Work Phone: [facility] 01-22-2023 08:22-0400 SaO2% (BldA) [Mass fraction] 92 % Dr. Art Ureña Work Phone: [facility] 01-22-2023 08:22-0400 Systolic blood pressure 118 mm[Hg] Dr. Art Ureña Work Phone: [facility] 01-21-2023 10:05-0400 Body mass index (BMI) [Ratio] 40.1 kg/m2 Dr. Art Ureña Work Phone: [facility] 01-21-2023 10:05-0400 Body temperature 97.6 [degF] Dr. Art Ureña Work Phone: [facility] 01-21-2023 10:05-0400 Body weight [address] Art Ureña Work Phone: [facility] 01-21-2023 10:05-0400 Diastolic blood pressure 70 mm[Hg] Dr. Art Ureña Work Phone: [facility] 01-21-2023 10:05-0400 Heart rate 88 /min Dr. Art Ureña Work Phone: [facility] 01-21-2023 10:05-0400 Respiratory rate 18 /min Dr. Art Ureña Work Phone: [facility] 01-21-2023 10:05-0400 SaO2% (BldA) [Mass fraction] 97 % Dr. Art Ureña Work Phone: [facility] 01-21-2023 10:05-0400 Systolic blood pressure 117 mm[Hg] Dr. Art Ureña Work Phone: [facility] 01-16-2023 08:46-0400 Body height 175.9 cm Shabana Ramos MD Work Phone: [place] [id number] 08:46-0400 Body weight 127.46 kg Shabana Ramos MD Work Phone: [facility] 01-16-2023 08:46-0400 Heart rate 76 /min Shabana Ramos MD Work Phone: [facility] 01-16-2023 08:46-0400 Respiratory rate 14 /min Shabana Ramos MD Work Phone: [facility] 01-16-2023 08:46-0400 SaO2% (BldA) [Mass fraction] 94 % Shabana Ramos MD Work Phone: [facility] 01-16-2023 08:24-0400 Body height 175.9 cm Pulm Wstr Work Phone: [facility] 01-16-2023 08:24-0400 Body weight 127.46 kg Pulm Wstr Work Phone: [facility] 01-16-2023 08:24-0400 Heart rate 76 /min Pulm Wstr Work Phone: [facility] 01-16-2023 08:24-0400 SaO2% (BldA) [Mass fraction] 94 % Pulm Wstr Work Phone: [facility] 01-14-2023 12:47-0400 Body temperature 97.5 [degF] Dr. Art Ureña Work Phone: [facility] 01-14-2023 12:47-0400 Diastolic blood pressure 74 mm[Hg] Dr. Art Ureña Work Phone: [facility] 01-14-2023 12:47-0400 Heart rate 91 /min Dr. Art Ureña Work Phone: [facility] 01-14-2023 12:47-0400 Respiratory rate 20 /min Dr. Art Ureña Work Phone: [facility] 01-14-2023 12:47-0400 SaO2% (BldA) [Mass fraction] 94 % Dr. Art Ureña Work Phone: [facility] 01-14-2023 12:47-0400 Systolic blood pressure 133 mm[Hg] Dr. Art Ureña Work Phone: [facility] 01-14-2023 11:28-0400 Inhaled oxygen flow rate 2 L/min Dr. Art Ureña Work Phone: [facility] 01-12-2023 17:00-0400 Body height 177.[address] Art Ureña Work Phone: [facility] 01-12-2023 17:00-0400 Body weight [address] Art Ureña Work Phone: [facility] 01-11-2023 07:21-0400 Body mass index (BMI) [Ratio] 40.8 kg/m2 Dr. Art Ureña Work Phone: [facility] 01-11-2023 05:18-0400 Body temperature 97.9 [degF] Dr. Art Ureña Work Phone: [facility] 01-11-2023 05:18-0400 Diastolic blood pressure 69 mm[Hg] Dr. Art Ureña Work Phone: [facility] 01-11-2023 05:18-0400 Heart rate 87 /min Dr. Art Ureña Work Phone: [facility] 01-11-2023 05:18-0400 Inhaled oxygen flow rate 6 L/min Dr. Art Ureña Work Phone: [facility] 01-11-2023 05:18-0400 Respiratory rate 22 /min Dr. Art Ureña Work Phone: [facility] 01-11-2023 05:18-0400 SaO2% (BldA) [Mass fraction] 91 % Dr. Art Ureña Work Phone: [facility] 01-11-2023 05:18-0400 Systolic blood pressure 131 mm[Hg] Dr. Art Ureña Work Phone: [facility] 01-10-2023 23:32-0400 Body height 177.[address] Art Ureña Work Phone: [facility] 01-10-2023 23:32-0400 Body mass index (BMI) [Ratio] 41.6 kg/m2 Dr. Art Ureña Work Phone: [facility] 01-10-2023 23:32-0400 Body weight 131.[address] Art Ureña Work Phone: [facility] 12-26-2022 13:53-0400 Body height 177.[address] Art Ureña Work Phone: [facility] 12-26-2022 13:53-0400 Body temperature 97.1 [degF] Dr. Art Ureña Work Phone: [facility] 12-26-2022 13:53-0400 Diastolic blood pressure 67 mm[Hg] Dr. Art Ureña Work Phone: [facility] 12-26-2022 13:53-0400 Heart rate 97 /min Dr. Art Ureña Work Phone: [facility] 12-26-2022 13:53-0400 Respiratory rate 18 /min Dr. Art Ureña Work Phone: [facility] 12-26-2022 13:53-0400 SaO2% (BldA) [Mass fraction] 94 % Dr. Art Ureña Work Phone: [facility] 12-26-2022 13:53-0400 Systolic blood pressure 143 mm[Hg] Dr. Art Ureña Work Phone: [facility] 12-26-2022 13:05-0400 Body mass index (BMI) [Ratio] 40.1 kg/m2 Dr. Art Ureña Work Phone: [facility] 12-26-2022 13:05-0400 Body weight [address] Art Ureña Work Phone: [facility] 12-26-2022 13:05-0400 Diastolic blood pressure 59 mm[Hg] Dr. Art Ureña Work Phone: [facility] 12-26-2022 13:05-0400 Heart rate 88 /min Dr. Art Ureña Work Phone: [facility] 12-26-2022 13:05-0400 Respiratory rate 18 /min Dr. Art Ureña Work Phone: [facility] 12-26-2022 13:05-0400 Systolic blood pressure 120 mm[Hg] Dr. Art Ureña Work Phone: [facility] 12-12-2022 12:57-0400 Body weight 129.[address] Art Ureña Work Phone: [facility] 11-28-2022 10:47-0400 Body height 177.[address] Art Ureña Work Phone: [facility] 11-28-2022 10:47-0400 Body temperature 97.4 [degF] Dr. Art Ureña Work Phone: [facility] 11-28-2022 10:47-0400 Diastolic blood pressure 68 mm[Hg] Dr. Art Ureña Work Phone: [facility] 11-28-2022 10:47-0400 Heart rate 66 /min Dr. Art Ureña Work Phone: [facility] 11-28-2022 10:47-0400 Respiratory rate 18 /min Dr. Art Ureña Work Phone: [facility] 11-28-2022 10:47-0400 Systolic blood pressure 129 mm[Hg] Dr. Art Ureña Work Phone: [facility] 11-28-2022 10:06-0400 Inhaled oxygen flow rate 2 L/min Dr. Art Ureña Work Phone: [facility] 11-28-2022 10:06-0400 SaO2% (BldA) [Mass fraction] 93 % Dr. Art Ureña Work Phone: [facility] 11-28-2022 08:40-0400 Body mass index (BMI) [Ratio] 39.7 kg/m2 Dr. Art Ureña Work Phone: [facility] 11-28-2022 08:40-0400 Body temperature 97.6 [degF] Dr. Art Ureña Work Phone: [facility] 11-28-2022 08:40-0400 Body weight 125.[address] Art Ureña Work Phone: [facility] 11-28-2022 08:40-0400 Diastolic blood pressure 71 mm[Hg] Dr. Art Ureña Work Phone: [facility] 11-28-2022 08:40-0400 Heart rate 67 /min Dr. Art Ureña Work Phone: [facility] 11-28-2022 08:40-0400 Respiratory rate 16 /min Dr. Art Ureña Work Phone: [facility] 11-28-2022 08:40-0400 Systolic blood pressure 124 mm[Hg] Dr. Art Ureña Work Phone: [facility] 11-12-2022 09:25-0400 Body height 177.[address] Art Ureña Work Phone: [facility] 11-12-2022 09:25-0400 Body mass index (BMI) [Ratio] 40.3 kg/m2 Dr. Art Ureña Work Phone: [facility] 11-12-2022 09:25-0400 Body temperature 97.8 [degF] Dr. Art Ureña Work Phone: [facility] 11-12-2022 09:25-0400 Body weight 127.[address] Art Ureña Work Phone: [facility] 11-12-2022 09:25-0400 Diastolic blood pressure 73 mm[Hg] Dr. Art Ureña Work Phone: [facility] 11-12-2022 09:25-0400 Heart rate 66 /min Dr. Art Ureña Work Phone: [facility] 11-12-2022 09:25-0400 Respiratory rate 18 /min Dr. Art Ureña Work Phone: [facility] 11-12-2022 09:25-0400 SaO2% (BldA) [Mass fraction] 91 % Dr. Art Ureña Work Phone: [facility] 11-12-2022 09:25-0400 Systolic blood pressure 129 mm[Hg] Dr. Art Ureña Work Phone: [facility] 11-03-2022 00:41-0400 Body weight 129.[address] Art Ureña Work Phone: [facility] 10-31-2022 12:27-0400 Body height 177.[address] Art Ureña Work Phone: [facility] 10-31-2022 12:27-0400 Body mass index (BMI) [Ratio] 40.1 kg/m2 Dr. Art Ureña Work Phone: [facility] 10-31-2022 12:27-0400 Body weight [address] Art Ureña Work Phone: [facility] 10-31-2022 12:27-0400 Diastolic blood pressure 59 mm[Hg] Dr. Art Ureña Work Phone: [facility] 10-31-2022 12:27-0400 Heart rate 74 /min Dr. Art Ureña Work Phone: [facility] 10-31-2022 12:27-0400 Respiratory rate 18 /min Dr. Art Ureña Work Phone: [facility] 10-31-2022 12:27-0400 SaO2% (BldA) [Mass fraction] 93 % Dr. Art Ureña Work Phone: [facility] 10-31-2022 12:27-0400 Systolic blood pressure 130 mm[Hg] Dr. Art Ureña Work Phone: [facility] 10-10-2022 13:30-0400 Body height 177.[address] Art Ureña Work Phone: [facility] 10-10-2022 13:30-0400 Body mass index (BMI) [Ratio] 40.8 kg/m2 Dr. Art Ureña Work Phone: [facility] 10-10-2022 13:30-0400 Body weight 129.[address] Art Ureña Work Phone: [facility] 10-10-2022 13:30-0400 Diastolic blood pressure 70 mm[Hg] Dr. Art Ureña Work Phone: [facility] 10-10-2022 13:30-0400 Heart rate 83 /min Dr. Art Ureña Work Phone: [facility] 10-10-2022 13:30-0400 Respiratory rate 18 /min Dr. Art Ureña Work Phone: [facility] 10-10-2022 13:30-0400 SaO2% (BldA) [Mass fraction] 94 % Dr. Art Ureña Work Phone: [facility] 10-10-2022 13:30-0400 Systolic blood pressure 115 mm[Hg] Dr. Art Ureña Work Phone: [facility] 10-06-2022 14:14-0400 Body temperature 97.4 [degF] Dr. Art Ureña Work Phone: [facility] 10-06-2022 14:14-0400 Diastolic blood pressure 68 mm[Hg] Dr. Art Ureña Work Phone: [facility] 10-06-2022 14:14-0400 Heart rate 94 /min Dr. Art Ureña Work Phone: [facility] 10-06-2022 14:14-0400 Respiratory rate 20 /min Dr. Art Ureña Work Phone: [facility] 10-06-2022 14:14-0400 SaO2% (BldA) [Mass fraction] 93 % Dr. Art Ureña Work Phone: [facility] 10-06-2022 14:14-0400 Systolic blood pressure 138 mm[Hg] Dr. Art Ureña Work Phone: [facility] 10-04-2022 02:08-0400 Body weight 129.[address] Art Ureña Work Phone: [facility] 09-25-2022 13:21-0400 Body temperature 100.4 [degF] Dr. Art Ureña Work Phone: [facility] 09-25-2022 13:21-0400 Diastolic blood pressure 56 mm[Hg] Dr. Art Ureña Work Phone: [facility] 09-25-2022 13:21-0400 Heart rate 94 /min Dr. Art Ureña Work Phone: [facility] 09-25-2022 13:21-0400 Respiratory rate 20 /min Dr. Art Ureña Work Phone: [facility] 09-25-2022 13:21-0400 SaO2% (BldA) [Mass fraction] 91 % Dr. Art Ureña Work Phone: [facility] 09-25-2022 13:21-0400 Systolic blood pressure 140 mm[Hg] Dr. Art Ureña Work Phone: [facility] 09-24-2022 11:51-0400 Body height 177.[address] Art Ureña Work Phone: [facility] 09-24-2022 11:51-0400 Body weight 129.[address] Art Ureña Work Phone: [facility] 09-09-2022 10:58-0500 Body mass index (BMI) [Ratio] 41.1 kg/m2 Dr. Art Ureña Work Phone: [facility] 09-09-2022 10:58-0500 Body temperature 96.4 [degF] Dr. Art Ureña Work Phone: [facility] 09-09-2022 10:58-0500 Diastolic blood pressure 79 mm[Hg] Dr. Art Ureña Work Phone: [facility] 09-09-2022 10:58-0500 Heart rate 75 /min Dr. Art Ureña Work Phone: [facility] 09-09-2022 10:58-0500 Systolic blood pressure 118 mm[Hg] Dr. Art Ureña Work Phone: [facility] 09-05-2022 13:32-0500 Body height 177.[address] Art Ureña Work Phone: [facility] 09-05-2022 13:32-0500 Body mass index (BMI) [Ratio] 40.8 kg/m2 Dr. Art Ureña Work Phone: [facility] 09-05-2022 13:32-0500 Body weight 129.[address] Art Ureña Work Phone: [facility] 09-05-2022 13:32-0500 Diastolic blood pressure 69 mm[Hg] Dr. Art Ureña Work Phone: [facility] 09-05-2022 13:32-0500 Heart rate 95 /min Dr. Art Ureña Work Phone: [facility] 09-05-2022 13:32-0500 Respiratory rate 16 /min Dr. Art Ureña Work Phone: [facility] 09-05-2022 13:32-0500 SaO2% (BldA) [Mass fraction] 94 % Dr. Art Ureña Work Phone: [facility] 09-05-2022 13:32-0500 Systolic blood pressure 128 mm[Hg] Dr. Art Ureña Work Phone: [facility] 09-03-2022 00:37-0500 Body mass index (BMI) [Ratio] 41.1 kg/m2 Dr. Art Ureña Work Phone: [facility] 09-03-2022 00:37-0500 Body temperature 97.2 [degF] Dr. Art Ureña Work Phone: [facility] 09-03-2022 00:37-0500 Body weight 130.[address] Art Ureña Work Phone: [facility] 09-03-2022 00:37-0500 Diastolic blood pressure 74 mm[Hg] Dr. Art Ureña Work Phone: [facility] 09-03-2022 00:37-0500 Heart rate 76 /min Dr. Art Ureña Work Phone: [facility] 09-03-2022 00:37-0500 Systolic blood pressure 141 mm[Hg] Dr. Art Ureña Work Phone: [facility] 09-02-2022 10:16-0500 Body height 177.[address] Art Ureña Work Phone: [facility] 09-02-2022 10:16-0500 Body mass index (BMI) [Ratio] 41.1 kg/m2 Dr. Art Ureña Work Phone: [facility] 09-02-2022 10:16-0500 Body temperature 97.2 [degF] Dr. Art Ureña Work Phone: [facility] 09-02-2022 10:16-0500 Body weight 130.[address] Art Ureña Work Phone: [facility] 09-02-2022 10:16-0500 Diastolic blood pressure 74 mm[Hg] Dr. Art Ureña Work Phone: [facility] 09-02-2022 10:16-0500 Heart rate 76 /min Dr. Art Ureña Work Phone: [facility] 09-02-2022 10:16-0500 Systolic blood pressure 141 mm[Hg] Dr. Art Ureña Work Phone: [facility] 09-01-2022 10:24-0500 Body temperature 97.1 [degF] Dr. Art Ureañ Work Phone: [facility] 09-01-2022 10:24-0500 Body weight 130.[address] Art Ureña Work Phone: [facility] 09-01-2022 10:24-0500 Diastolic blood pressure 71 mm[Hg] Dr. Art Ureña Work Phone: [facility] 09-01-2022 10:24-0500 Heart rate 101 /min Dr. Art Ureña Work Phone: [facility] 09-01-2022 10:24-0500 Respiratory rate 18 /min Dr. Art Ureña Work Phone: [facility] 09-01-2022 10:24-0500 SaO2% (BldA) [Mass fraction] 96 % Dr. Art Ureña Work Phone: [facility] 09-01-2022 10:24-0500 Systolic blood pressure 135 mm[Hg] Dr. Art Ureña Work Phone: [facility] 08-27-2022 14:41-0500 Body height 177.[address] Art Ureña Work Phone: [facility] 08-27-2022 14:41-0500 Body weight 130.[address] Art Ureña Work Phone: [facility] 08-27-2022 14:22-0500 Body mass index (BMI) [Ratio] 41.1 kg/m2 Dr. Art Ureña Work Phone: [facility] 08-27-2022 14:22-0500 Heart rate 83 /min Dr. Art Ureña Work Phone: [facility] 08-27-2022 14:22-0500 SaO2% (BldA) [Mass fraction] 91 % Dr. Art Ureña Work Phone: [facility] 08-25-2022 12:23-0500 Body temperature 98.2 [degF] Dr. Art Ureña Work Phone: [facility] 08-25-2022 12:23-0500 Diastolic blood pressure 86 mm[Hg] Dr. Art Ureña Work Phone: [facility] 08-25-2022 12:23-0500 Heart rate 80 /min Dr. Art Ureña Work Phone: [facility] 08-25-2022 12:23-0500 Respiratory rate 20 /min Dr. Art Ureña Work Phone: [facility] 08-25-2022 12:23-0500 SaO2% (BldA) [Mass fraction] 94 % Dr. Art Ureña Work Phone: [facility] 08-25-2022 12:23-0500 Systolic blood pressure 138 mm[Hg] Dr. Art Ureña Work Phone: [facility] 08-21-2022 10:46-0500 Body height 177.[address] Art Ureña Work Phone: [facility] 08-21-2022 10:43-0500 Body mass index (BMI) [Ratio] 40.1 kg/m2 Dr. Art Ureña Work Phone: [facility] 08-21-2022 10:43-0500 Body temperature 97.5 [degF] Dr. Art Ureña Work Phone: [facility] 08-21-2022 10:43-0500 Body weight [address] Art Ureña Work Phone: [facility] 08-21-2022 10:43-0500 Diastolic blood pressure 72 mm[Hg] Dr. Art Ureña Work Phone: [facility] 08-21-2022 10:43-0500 Heart rate 73 /min Dr. Art Ureña Work Phone: [facility] 08-21-2022 10:43-0500 Respiratory rate 18 /min Dr. Art Ureña Work Phone: [facility] 08-21-2022 10:43-0500 SaO2% (BldA) [Mass fraction] 95 % Dr. Art Ureña Work Phone: [facility] 08-21-2022 10:43-0500 Systolic blood pressure 120 mm[Hg] Dr. Art Ureña Work Phone: [facility] 08-15-2022 08:48-0500 Body temperature 97.7 [degF] Dr. Art Ureña Work Phone: [facility] 08-15-2022 08:48-0500 Diastolic blood pressure 69 mm[Hg] Dr. Art Ureña Work Phone: [facility] 08-15-2022 08:48-0500 Heart rate 79 /min Dr. Art Ureña Work Phone: [facility] 08-15-2022 08:48-0500 Respiratory rate 16 /min Dr. Art Ureña Work Phone: [facility] 08-15-2022 08:48-0500 SaO2% (BldA) [Mass fraction] 92 % Dr. Art Ureña Work Phone: [facility] 08-15-2022 08:48-0500 Systolic blood pressure 119 mm[Hg] Dr. Art Ureña Work Phone: [facility] 08-14-2022 13:10-0500 Diastolic blood pressure 74 mm[Hg] Dr. Art Ureña Work Phone: [facility] 08-14-2022 13:10-0500 Heart rate 67 /min Dr. Art Ureña Work Phone: [facility] 08-14-2022 13:10-0500 Respiratory rate 17 /min Dr. Art Ureña Work Phone: [facility] 08-14-2022 13:10-0500 SaO2% (BldA) [Mass fraction] 95 % Dr. Art Ureña Work Phone: [facility] 08-14-2022 13:10-0500 Systolic blood pressure 118 mm[Hg] Dr. Art Ureña Work Phone: [facility] 08-14-2022 11:40-0500 Body temperature 97.8 [degF] Dr. Art Ureña Work Phone: [facility] 08-14-2022 07:12-0500 Body height 177.[address] Art Ureña Work Phone: [facility] 08-14-2022 07:12-0500 Body weight 131.[address] Art Ureña Work Phone: [facility] 08-13-2022 09:29-0500 Body mass index (BMI) [Ratio] 41.5 kg/m2 Dr. Art Ureña Work Phone: [facility] 08-08-2022 14:01-0500 Body temperature 97.6 [degF] Dr. Art Ureña Work Phone: [facility] 08-08-2022 14:01-0500 Diastolic blood pressure 69 mm[Hg] Dr. Art Ureña Work Phone: [facility] 08-08-2022 14:01-0500 Heart rate 94 /min Dr. Art Ureña Work Phone: [facility] 08-08-2022 14:01-0500 Respiratory rate 20 /min Dr. Art Ureña Work Phone: [facility] 08-08-2022 14:01-0500 SaO2% (BldA) [Mass fraction] 95 % Dr. Art Ureña Work Phone: [facility] 08-08-2022 14:01-0500 Systolic blood pressure 134 mm[Hg] Dr. Art Ureña Work Phone: [facility] 08-08-2022 09:20-0500 Body mass index (BMI) [Ratio] 41.5 kg/m2 Dr. Art Ureña Work Phone: [facility] 08-08-2022 09:20-0500 Body weight 131.[address] Art Ureña Work Phone: [facility] 08-08-2022 09:20-0500 Diastolic blood pressure 67 mm[Hg] Dr. Art Ureña Work Phone: [facility] 08-08-2022 09:20-0500 Heart rate 81 /min Dr. Art Ureña Work Phone: [facility] 08-08-2022 09:20-0500 Respiratory rate 18 /min Dr. Art Ureña Work Phone: [facility] 08-08-2022 09:20-0500 Systolic blood pressure 120 mm[Hg] Dr. Art Ureña Work Phone: [facility] 07-11-2022 13:56-0500 Body height 177.[address] rAt Ureña Work Phone: [facility] 07-11-2022 13:56-0500 Body mass index (BMI) [Ratio] 41 kg/m2 Dr. Art Ureña Work Phone: [facility] 07-11-2022 13:56-0500 Body temperature 97.7 [degF] Dr. Art Ureña Work Phone: [facility] 07-11-2022 13:56-0500 Body weight 129.[address] Art Ureña Work Phone: [facility] 07-11-2022 13:56-0500 Diastolic blood pressure 73 mm[Hg] Dr. Art Ureña Work Phone: [facility] 07-11-2022 13:56-0500 Heart rate 86 /min Dr. Art Ureña Work Phone: [facility] 07-11-2022 13:56-0500 Respiratory rate 18 /min Dr. Art Ureña Work Phone: [facility] 07-11-2022 13:56-0500 SaO2% (BldA) [Mass fraction] 95 % Dr. Art Ureña Work Phone: [facility] 07-11-2022 13:56-0500 Systolic blood pressure 148 mm[Hg] Dr. Art Ureña Work Phone: [facility] 07-11-2022 11:02-0500 Body mass index (BMI) [Ratio] 41 kg/m2 Dr. Art Ureña Work Phone: [facility] 07-11-2022 11:02-0500 Body temperature 98.2 [degF] Dr. Art Ureña Work Phone: [facility] 07-11-2022 11:02-0500 Body weight 129.[address] Art Ureña Work Phone: [facility] 07-11-2022 11:02-0500 Diastolic blood pressure 72 mm[Hg] Dr. Art Ureña Work Phone: [facility] 07-11-2022 11:02-0500 Heart rate 74 /min Dr. Art Ureña Work Phone: [facility] 07-11-2022 11:02-0500 Respiratory rate 18 /min Dr. Art Ureña Work Phone: [facility] 07-11-2022 11:02-0500 SaO2% (BldA) [Mass fraction] 96 % Dr. Art Ureña Work Phone: [facility] 07-11-2022 11:02-0500 Systolic blood pressure 125 mm[Hg] Dr. Art Ureña Work Phone: [facility] 07-10-2022 10:52-0500 Body temperature 98.1 [degF] Dr. Art Ureña Work Phone: [facility] 07-10-2022 10:52-0500 Body weight 129.[address] Art Ureña Work Phone: [facility] 07-10-2022 10:52-0500 Diastolic blood pressure 80 mm[Hg] Dr. Art Ureña Work Phone: [facility] 07-10-2022 10:52-0500 Heart rate 96 /min Dr. Art Ureña Work Phone: [facility] 07-10-2022 10:52-0500 Respiratory rate 18 /min Dr. Art Ureña Work Phone: [facility] 07-10-2022 10:52-0500 SaO2% (BldA) [Mass fraction] 93 % Dr. Art Ureña Work Phone: [facility] 07-10-2022 10:52-0500 Systolic blood pressure 133 mm[Hg] Dr. Art Ureña Work Phone: [facility] 06-12-2022 09:44-0500 Body height 177.[address] Fabio Theodore Work Phone: [facility] Work Phone: 06-12-2022 09:44-0500 Body mass index (BMI) [Ratio] 41.1 kg/m2 Dr. Fabio Theodore Work Phone: [facility] 06-12-2022 09:44-0500 Body temperature 97.3 [degF] Dr. Fabio Theodore Work Phone: [facility] 06-12-2022 09:44-0500 Body weight 129.[address] Fabio Theodore Work Phone: [facility] 06-12-2022 09:44-0500 Diastolic blood pressure 73 mm[Hg] Dr. Fabio Theodore Work Phone: [facility] 06-12-2022 09:44-0500 Heart rate 84 /min Dr. Fabio Theodore Work Phone: [facility] 06-12-2022 09:44-0500 Respiratory rate 18 /min Dr. Fabio Theodore Work Phone: [facility] 06-12-2022 09:44-0500 SaO2% (BldA) [Mass fraction] 92 % Dr. Fabio Theodore Work Phone: [facility] 06-12-2022 09:44-0500 Systolic blood pressure 120 mm[Hg] Dr. Fabio Theodore Work Phone: [facility] 06-09-2022 13:24-0500 Body mass index (BMI) [Ratio] 41.3 kg/m2 Dr. Fabio Theodore Work Phone: [facility] 06-09-2022 13:24-0500 Body temperature 97.3 [degF] Dr. Fabio Theodore Work Phone: [facility] 06-09-2022 13:24-0500 Body weight 130.[address] Fabio Theodore Work Phone: [facility] 06-09-2022 13:24-0500 Diastolic blood pressure 68 mm[Hg] Dr. Fabio Theodore Work Phone: [facility] 06-09-2022 13:24-0500 Heart rate 88 /min Dr. Fabio Theodore Work Phone: [facility] 06-09-2022 13:24-0500 Respiratory rate 18 /min Dr. Fabio Theodore Work Phone: [facility] 06-09-2022 13:24-0500 SaO2% (BldA) [Mass fraction] 92 % Dr. Fabio Theodore Work Phone: [facility] 06-09-2022 13:24-0500 Systolic blood pressure 133 mm[Hg] Dr. Fabio Theodore Work Phone: [facility] 06-02-2022 17:49-0500 Diastolic blood pressure 112 mm[Hg] Dr. Fabio Theodore Work Phone: [facility] 06-02-2022 17:49-0500 Heart rate 67 /min Dr. Fabio Theodore Work Phone: [facility] 06-02-2022 17:49-0500 Respiratory rate 16 /min Dr. Fabio Theodore Work Phone: [facility] 06-02-2022 17:49-0500 SaO2% (BldA) [Mass fraction] 96 % Dr. Fabio Theodore Work Phone: [facility] 06-02-2022 17:49-0500 Systolic blood pressure 128 mm[Hg] Dr. Fabio Theodore Work Phone: [facility] 06-02-2022 16:51-0500 Body temperature 98.3 [degF] Dr. Fabio Theodore Work Phone: [facility] 06-02-2022 15:50-0500 Body mass index (BMI) [Ratio] 43.1 kg/m2 Dr. Fabio Theodore Work Phone: [facility] 06-02-2022 15:50-0500 Body weight 136.[address] Fabio Theodore Work Phone: [facility] 06-02-2022 15:22-0500 Body temperature 98.7 [degF] Dr. Fabio Theodore Work Phone: [facility] 06-02-2022 15:22-0500 Diastolic blood pressure 84 mm[Hg] Dr. Fabio Theodore Work Phone: [facility] 06-02-2022 15:22-0500 Heart rate 83 /min Dr. Fabio Theodore Work Phone: [facility] 06-02-2022 15:22-0500 Respiratory rate 14 /min Dr. Fabio Theodore Work Phone: [facility] 06-02-2022 15:22-0500 SaO2% (BldA) [Mass fraction] 96 % Dr. Fabio Theodore Work Phone: [facility] 06-02-2022 15:22-0500 Systolic blood pressure 168 mm[Hg] Dr. Fabio Theodore Work Phone: [facility] 05-09-2022 13:57-0400 Body temperature 96.2 [degF] Dr. Fabio Theodore Work Phone: [facility] 05-09-2022 13:57-0400 Diastolic blood pressure 82 mm[Hg] Dr. Fabio Theodore Work Phone: [facility] 05-09-2022 13:57-0400 Heart rate 83 /min Dr. Fabio Theodore Work Phone: [facility] 05-09-2022 13:57-0400 SaO2% (BldA) [Mass fraction] 95 % Dr. Fabio Theodore Work Phone: [facility] 05-09-2022 13:57-0400 Systolic blood pressure 151 mm[Hg] Dr. Fabio Theodore Work Phone: [facility] 04-11-2022 13:59-0400 Body height 177.[address] Justin Massey Work Phone: [facility] Work Phone: 04-11-2022 13:59-0400 Body mass index (BMI) [Ratio] 41.5 kg/m2 Dr. Justin Massey Work Phone: [facility] 04-11-2022 13:59-0400 Body weight 131.[address] Justin Massey Work Phone: [facility] 04-11-2022 13:59-0400 Diastolic blood pressure 62 mm[Hg] Dr. Justin Massey Work Phone: [facility] 04-11-2022 13:59-0400 Heart rate 78 /min Dr. Justin Massey Work Phone: [facility] 04-11-2022 13:59-0400 Respiratory rate 16 /min Dr. Justin Massey Work Phone: [facility] 04-11-2022 13:59-0400 SaO2% (BldA) [Mass fraction] 92 % Dr. Justin Massey Work Phone: [facility] 04-11-2022 13:59-0400 Systolic blood pressure 124 mm[Hg] Dr. Justin Massey Work Phone: [facility] 03-31-2022 10:51-0400 Body mass index (BMI) [Ratio] 53.2 kg/m2 Dr. Justin Massey Work Phone: [facility] 03-31-2022 10:51-0400 Body temperature 98.6 [degF] Dr. Justin Massey Work Phone: [facility] 03-31-2022 10:51-0400 Body weight 132.[address] Justin Massey Work Phone: [facility] 03-31-2022 10:51-0400 Diastolic blood pressure 78 mm[Hg] Dr. Justin Massey Work Phone: [facility] 03-31-2022 10:51-0400 Heart rate 68 /min Dr. Justin Massey Work Phone: [facility] 03-31-2022 10:51-0400 Respiratory rate 18 /min Dr. Justin Massey Work Phone: [facility] 03-31-2022 10:51-0400 SaO2% (BldA) [Mass fraction] 96 % Dr. Justin Massey Work Phone: [facility] 03-31-2022 10:51-0400 Systolic blood pressure 137 mm[Hg] Dr. uJstin Massey Work Phone: [facility] 03-19-2022 13:03-0400 Body temperature 98 [degF] Dr. Justin Massey Work Phone: [facility] Work Phone: 03-19-2022 13:03-0400 Body weight 130.[address] Justin Massey Work Phone: [facility] Work Phone: 03-19-2022 13:03-0400 Diastolic blood pressure 79 mm[Hg] Dr. Justin Massey Work Phone: [facility] Work Phone: 03-19-2022 13:03-0400 Heart rate 83 /min Dr. Justin Massey Work Phone: [facility] Work Phone: 03-19-2022 13:03-0400 Respiratory rate 16 /min Dr. Justin Massey Work Phone: [facility] Work Phone: 03-19-2022 13:03-0400 SaO2% (BldA) [Mass fraction] 94 % Dr. Justin Massey Work Phone: [facility] Work Phone: 03-19-2022 13:03-0400 Systolic blood pressure 127 mm[Hg] Dr. Justin Massey Work Phone: [facility] Work Phone: 03-12-2022 08:58-0400 Body height 177.[address] Justin Massey Work Phone: [facility] Work Phone: 03-12-2022 08:58-0400 Body mass index (BMI) [Ratio] 40.6 kg/m2 Dr. Justin Massey Work Phone: [facility] Work Phone: 03-12-2022 08:58-0400 Body temperature 96.7 [degF] Dr. Justin Massey Work Phone: [facility] Work Phone: 03-12-2022 08:58-0400 Body weight 128.[address] Justin Massey Work Phone: [facility] Work Phone: 03-12-2022 08:58-0400 Diastolic blood pressure 71 mm[Hg] Dr. Justin Massey Work Phone: [facility] Work Phone: 03-12-2022 08:58-0400 Heart rate 71 /min Dr. Justin Massey Work Phone: [facility] Work Phone: 03-12-2022 08:58-0400 Respiratory rate 16 /min Dr. Justin Massey Work Phone: [facility] Work Phone: 03-12-2022 08:58-0400 SaO2% (BldA) [Mass fraction] 94 % Dr. Justin Massey Work Phone: [facility] Work Phone: 03-12-2022 08:58-0400 Systolic blood pressure 129 mm[Hg] Dr. Justin Massey Work Phone: [facility] Work Phone: 02-26-2022 08:21-0400 Body height 177.[address] Justin Massey Work Phone: [facility] Work Phone: 02-26-2022 08:21-0400 Body mass index (BMI) [Ratio] 41.5 kg/m2 Dr. Justin Massey Work Phone: [facility] Work Phone: 02-26-2022 08:21-0400 Body temperature 97.4 [degF] Dr. Justin Massey Work Phone: [facility] Work Phone: 02-26-2022 08:21-0400 Body weight 131.[address] Justin Massey Work Phone: [facility] Work Phone: 02-26-2022 08:21-0400 Diastolic blood pressure 78 mm[Hg] Dr. Justin Massey Work Phone: [facility] Work Phone: 02-26-2022 08:21-0400 Heart rate 64 /min Dr. Justin Massey Work Phone: [facility] Work Phone: 02-26-2022 08:21-0400 Respiratory rate 16 /min Dr. Justin Massey Work Phone: [facility] Work Phone: 02-26-2022 08:21-0400 SaO2% (BldA) [Mass fraction] 94 % Dr. Justin Massey Work Phone: [facility] Work Phone: 02-26-2022 08:21-0400 Systolic blood pressure 129 mm[Hg] Dr. Justin Massey Work Phone: [facility] Work Phone: 02-10-2022 08:45-0400 Body temperature 96 [degF] Dr. Justin Massey Work Phone: [facility] Work Phone: 02-10-2022 08:45-0400 Diastolic blood pressure 70 mm[Hg] Dr. Justin Massey Work Phone: [facility] Work Phone: 02-10-2022 08:45-0400 Heart rate 68 /min Dr. Justin Massey Work Phone: [facility] Work Phone: 02-10-2022 08:45-0400 SaO2% (BldA) [Mass fraction] 96 % Dr. Justin Massey Work Phone: [facility] Work Phone: 02-10-2022 08:45-0400 Systolic blood pressure 134 mm[Hg] Dr. Justin Massey Work Phone: [facility] Work Phone: 01-25-2022 02:46-0400 Diastolic blood pressure 71 mm[Hg] Dr. Justin Massey Work Phone: [facility] Work Phone: 01-25-2022 02:46-0400 Heart rate 81 /min Dr. Justin Massey Work Phone: [facility] Work Phone: 01-25-2022 02:46-0400 Respiratory rate 18 /min Dr. Justin Massey Work Phone: [facility] Work Phone: 01-25-2022 02:46-0400 SaO2% (BldA) [Mass fraction] 96 % Dr. Justin Massey Work Phone: [facility] Work Phone: 01-25-2022 02:46-0400 Systolic blood pressure 162 mm[Hg] Dr. Justin Massey Work Phone: [facility] Work Phone: 01-24-2022 21:58-0400 Body height 177.[address] Justin Massey Work Phone: [facility] Work Phone: 01-24-2022 21:58-0400 Body mass index (BMI) [Ratio] 40.1 kg/m2 Dr. Justin Massey Work Phone: [facility] Work Phone: 01-24-2022 21:58-0400 Body temperature 97 [degF] Dr. Justin Massey Work Phone: [facility] Work Phone: 01-24-2022 21:58-0400 Body weight [address] Justin Massey Work Phone: [facility] Work Phone: 01-17-2022 10:15-0400 Body height 177.[address] Justin Massey Work Phone: [facility] Work Phone: 01-17-2022 10:15-0400 Body mass index (BMI) [Ratio] 41.8 kg/m2 Dr. Justin Massey Work Phone: [facility] Work Phone: 01-17-2022 10:15-0400 Body temperature 97.2 [degF] Dr. Justin Massey Work Phone: [facility] Work Phone: 01-17-2022 10:15-0400 Body weight 132.[address] Justin Massey Work Phone: [facility] Work Phone: 01-17-2022 10:15-0400 Diastolic blood pressure 76 mm[Hg] Dr. Justin Massey Work Phone: [facility] Work Phone: 01-17-2022 10:15-0400 Heart rate 64 /min Dr. Justin Massey Work Phone: [facility] Work Phone: 01-17-2022 10:15-0400 Respiratory rate 18 /min Dr. Justin Massey Work Phone: [facility] Work Phone: 01-17-2022 10:15-0400 SaO2% (BldA) [Mass fraction] 96 % Dr. Justin Massey Work Phone: [facility] Work Phone: 01-17-2022 10:15-0400 Systolic blood pressure 142 mm[Hg] Dr. Justin Massey Work Phone: [facility] Work Phone: 01-13-2022 09:06-0400 Body mass index (BMI) [Ratio] 40.1 kg/m2 Dr. Justin Massey Work Phone: [facility] Work Phone: 01-13-2022 09:06-0400 Body temperature 98.2 [degF] Dr. Justin Massey Work Phone: [facility] Work Phone: 01-13-2022 09:06-0400 Body weight [address] Justin Massey Work Phone: [facility] Work Phone: 01-13-2022 09:06-0400 Diastolic blood pressure 80 mm[Hg] Dr. Justin Massey Work Phone: [facility] Work Phone: 01-13-2022 09:06-0400 Heart rate 71 /min Dr. Justin Massey Work Phone: [facility] Work Phone: 01-13-2022 09:06-0400 Respiratory rate 16 /min Dr. Justin Massey Work Phone: [facility] Work Phone: 01-13-2022 09:06-0400 SaO2% (BldA) [Mass fraction] 96 % Dr. Justin Massey Work Phone: [facility] Work Phone: 01-13-2022 09:06-0400 Systolic blood pressure 146 mm[Hg] Dr. Justin Massey Work Phone: [facility] Work Phone: 12-13-2021 13:30-0400 Body height 177.[address] Justin Massey Work Phone: [facility] Work Phone: 12-13-2021 13:30-0400 Body mass index (BMI) [Ratio] 40.1 kg/m2 Dr. Justin Massey Work Phone: [facility] Work Phone: 12-13-2021 13:30-0400 Body temperature 98.2 [degF] Dr. Justin Massey Work Phone: [facility] Work Phone: 12-13-2021 13:30-0400 Body weight [address] Justin Massey Work Phone: [facility] Work Phone: 12-13-2021 13:30-0400 Diastolic blood pressure 76 mm[Hg] Dr. Justin Massey Work Phone: [facility] Work Phone: 12-13-2021 13:30-0400 Heart rate 94 /min Dr. Justin Massey Work Phone: [facility] Work Phone: 12-13-2021 13:30-0400 Respiratory rate 16 /min Dr. Justin Massey Work Phone: [facility] Work Phone: 12-13-2021 13:30-0400 SaO2% (BldA) [Mass fraction] 97 % Dr. Justin Massey Work Phone: [facility] Work Phone: 12-13-2021 13:30-0400 Systolic blood pressure 130 mm[Hg] Dr. Justin Massey Work Phone: [facility] Work Phone: 12-09-2021 13:53-0400 Body mass index (BMI) [Ratio] 40.5 kg/m2 Dr. Justin Massey Work Phone: [facility] Work Phone: 12-09-2021 13:53-0400 Body temperature 97.8 [degF] Dr. Justin Massey Work Phone: [facility] Work Phone: 12-09-2021 13:53-0400 Body weight 128.[address] Justin Massey Work Phone: [facility] Work Phone: 12-09-2021 13:53-0400 Diastolic blood pressure 68 mm[Hg] Dr. Justin Massey Work Phone: [facility] Work Phone: 12-09-2021 13:53-0400 Heart rate 73 /min Dr. Justin Massey Work Phone: [facility] Work Phone: 12-09-2021 13:53-0400 Respiratory rate 18 /min Dr. Justin Massey Work Phone: [facility] Work Phone: 12-09-2021 13:53-0400 SaO2% (BldA) [Mass fraction] 96 % Dr. Justin Massey Work Phone: [facility] Work Phone: 12-09-2021 13:53-0400 Systolic blood pressure 124 mm[Hg] Dr. Justin Massey Work Phone: [facility] Work Phone: 12-09-2021 13:53-0400 Body mass index (BMI) [Ratio] 40.5 kg/m2 Dr. Justin Massey Work Phone: [facility] Work Phone: 12-09-2021 13:53-0400 Body temperature 97.8 [degF] Dr. Justin Massey Work Phone: [facility] Work Phone: 12-09-2021 13:53-0400 Body weight 128.[address] Justin Massey Work Phone: [facility] Work Phone: 12-09-2021 13:53-0400 Diastolic blood pressure 68 mm[Hg] Dr. Justin Massey Work Phone: [facility] Work Phone: 12-09-2021 13:53-0400 Heart rate 73 /min Dr. Justin Massey Work Phone: [facility] Work Phone: 12-09-2021 13:53-0400 Respiratory rate 18 /min Dr. Justin Massey Work Phone: [facility] Work Phone: 12-09-2021 13:53-0400 SaO2% (BldA) [Mass fraction] 96 % Dr. Justin Massey Work Phone: [facility] Work Phone: 12-09-2021 13:53-0400 Systolic blood pressure 124 mm[Hg] Dr. Justin Massey Work Phone: [facility] Work Phone: 11-15-2021 13:32-0400 Body height 177.[address] Justin Massey Work Phone: [facility] Work Phone: 11-15-2021 13:32-0400 Body mass index (BMI) [Ratio] 39.4 kg/m2 Dr. Justin Massey Work Phone: [facility] Work Phone: 11-15-2021 13:32-0400 Body temperature 98.3 [degF] Dr. Jutsin Massey Work Phone: [facility] Work Phone: 11-15-2021 13:32-0400 Body weight 124.[address] Justin Massey Work Phone: [facility] Work Phone: 11-15-2021 13:32-0400 Diastolic blood pressure 81 mm[Hg] Dr. Justin Massey Work Phone: [facility] Work Phone: 11-15-2021 13:32-0400 Heart rate 79 /min Dr. Justin Massey Work Phone: [facility] Work Phone: 11-15-2021 13:32-0400 Respiratory rate 16 /min Dr. Justin Massey Work Phone: [facility] Work Phone: 11-15-2021 13:32-0400 SaO2% (BldA) [Mass fraction] 93 % Dr. Justin Massey Work Phone: [facility] Work Phone: 11-15-2021 13:32-0400 Systolic blood pressure 144 mm[Hg] Dr. Justin Massey Work Phone: [facility] Work Phone: 11-15-2021 08:24-0400 Body mass index (BMI) [Ratio] 39.4 kg/m2 Dr. Justin Massey Work Phone: [facility] Work Phone: 11-15-2021 08:24-0400 Body temperature 97.7 [degF] Dr. Justin Massey Work Phone: [facility] Work Phone: 11-15-2021 08:24-0400 Body weight 124.[address] Justin Massey Work Phone: [facility] Work Phone: 11-15-2021 08:24-0400 Diastolic blood pressure 74 mm[Hg] Dr. Justin Massey Work Phone: [facility] Work Phone: 11-15-2021 08:24-0400 Heart rate 83 /min Dr. Justin Massey Work Phone: [facility] Work Phone: 11-15-2021 08:24-0400 Respiratory rate 18 /min Dr. Justin Massey Work Phone: [facility] Work Phone: 11-15-2021 08:24-0400 SaO2% (BldA) [Mass fraction] 95 % Dr. Justin Massey Work Phone: [facility] Work Phone: 11-15-2021 08:24-0400 Systolic blood pressure 130 mm[Hg] Dr. Justin Massey Work Phone: [facility] Work Phone: 11-15-2021 08:24-0400 Body mass index (BMI) [Ratio] 39.4 kg/m2 Dr. Justin Massey Work Phone: [facility] Work Phone: 11-15-2021 08:24-0400 Body temperature 97.7 [degF] Dr. Justin Massey Work Phone: [facility] Work Phone: 11-15-2021 08:24-0400 Body weight 124.[address] Justin Massey Work Phone: [facility] Work Phone: 11-15-2021 08:24-0400 Diastolic blood pressure 74 mm[Hg] Dr. Justin Massey Work Phone: [facility] Work Phone: 11-15-2021 08:24-0400 Heart rate 83 /min Dr. Justin Massey Work Phone: [facility] Work Phone: 11-15-2021 08:24-0400 Respiratory rate 18 /min Dr. Justin Massey Work Phone: [facility] Work Phone: 11-15-2021 08:24-0400 SaO2% (BldA) [Mass fraction] 95 % Dr. Justin Massey Work Phone: [facility] Work Phone: 11-15-2021 08:24-0400 Systolic blood pressure 130 mm[Hg] Dr. Justin Massey Work Phone: [facility] Work Phone: 11-08-2021 10:50-0400 Body temperature 98.8 [degF] Dr. Justin Massey Work Phone: [facility] Work Phone: 11-08-2021 10:50-0400 Diastolic blood pressure 76 mm[Hg] Dr. Justin Massey Work Phone: [facility] Work Phone: 11-08-2021 10:50-0400 Heart rate 99 /min Dr. Justin Massey Work Phone: [facility] Work Phone: 11-08-2021 10:50-0400 Respiratory rate 15 /min Dr. Justin Massey Work Phone: [facility] Work Phone: 11-08-2021 10:50-0400 SaO2% (BldA) [Mass fraction] 94 % Dr. Justin Massey Work Phone: [facility] Work Phone: 11-08-2021 10:50-0400 Systolic blood pressure 150 mm[Hg] Dr. Justin Massey Work Phone: [facility] Work Phone: 10-20-2021 10:38-0400 Body temperature 97.8 [degF] Dr. Justin Massey Work Phone: [facility] Work Phone: 10-20-2021 10:38-0400 Diastolic blood pressure 78 mm[Hg] Dr. Justin Massey Work Phone: [facility] Work Phone: 10-20-2021 10:38-0400 Heart rate 91 /min Dr. Justin Massey Work Phone: [facility] Work Phone: 10-20-2021 10:38-0400 Respiratory rate 16 /min Dr. Justin Massey Work Phone: [facility] Work Phone: 10-20-2021 10:38-0400 SaO2% (BldA) [Mass fraction] 95 % Dr. Justin Massey Work Phone: [facility] Work Phone: 10-20-2021 10:38-0400 Systolic blood pressure 138 mm[Hg] Dr. Justin Massey Work Phone: [facility] Work Phone: 10-20-2021 10:38-0400 Body temperature 97.8 [degF] Dr. Justin Massey Work Phone: [facility] Work Phone: 10-20-2021 10:38-0400 Diastolic blood pressure 78 mm[Hg] Dr. Justin Massey Work Phone: [facility] Work Phone: 10-20-2021 10:38-0400 Heart rate 91 /min Dr. Justin Massey Work Phone: [facility] Work Phone: 10-20-2021 10:38-0400 Respiratory rate 16 /min Dr. Justin Massey Work Phone: [facility] Work Phone: 10-20-2021 10:38-0400 SaO2% (BldA) [Mass fraction] 95 % Dr. Justin Massey Work Phone: [facility] Work Phone: 10-20-2021 10:38-0400 Systolic blood pressure 138 mm[Hg] Dr. Justin Massey Work Phone: [facility] Work Phone: 10-16-2021 16:05-0400 Body temperature 96.7 [degF] Dr. Justin Massey Work Phone: [facility] Work Phone: 10-16-2021 16:05-0400 Diastolic blood pressure 67 mm[Hg] Dr. Justin Massey Work Phone: [facility] Work Phone: 10-16-2021 16:05-0400 Heart rate 75 /min Dr. Justin Massey Work Phone: [facility] Work Phone: 10-16-2021 16:05-0400 Respiratory rate 16 /min Dr. Justin Massey Work Phone: [facility] Work Phone: 10-16-2021 16:05-0400 SaO2% (BldA) [Mass fraction] 94 % Dr. Justin Massey Work Phone: [facility] Work Phone: 10-16-2021 16:05-0400 Systolic blood pressure 132 mm[Hg] Dr. Justin Massey Work Phone: [facility] Work Phone: 10-16-2021 15:07-0400 Body height 177.[address] Justin Massey Work Phone: [facility] Work Phone: 10-16-2021 15:07-0400 Body mass index (BMI) [Ratio] 39.7 kg/m2 Dr. Justin Massey Work Phone: [facility] Work Phone: 10-16-2021 15:07-0400 Body weight 125.[address] Justin Massey Work Phone: [facility] Work Phone: 09-13-2021 12:32-0500 Body temperature 97.3 [degF] Dr. Justin Massey Work Phone: [facility] Work Phone: 09-13-2021 12:32-0500 Diastolic blood pressure 68 mm[Hg] Dr. Justin Massey Work Phone: [facility] Work Phone: 09-13-2021 12:32-0500 Heart rate 75 /min Dr. Justin Massey Work Phone: [facility] Work Phone: 09-13-2021 12:32-0500 Respiratory rate 16 /min Dr. Justin Massey Work Phone: [facility] Work Phone: 09-13-2021 12:32-0500 SaO2% (BldA) [Mass fraction] 94 % Dr. Justin Massey Work Phone: [facility] Work Phone: 09-13-2021 12:32-0500 Systolic blood pressure 136 mm[Hg] Dr. Justin Massey Work Phone: [facility] Work Phone: 09-09-2021 13:37-0500 Body mass index (BMI) [Ratio] 40.1 kg/m2 Dr. Justin Massey Work Phone: [facility] Work Phone: 09-09-2021 13:37-0500 Body temperature 97.6 [degF] Dr. Justin Massey Work Phone: [facility] Work Phone: 09-09-2021 13:37-0500 Body weight [address] Justin Massey Work Phone: [facility] Work Phone: 09-09-2021 13:37-0500 Diastolic blood pressure 72 mm[Hg] Dr. Justin Massey Work Phone: [facility] Work Phone: 09-09-2021 13:37-0500 Heart rate 74 /min Dr. Justin Massey Work Phone: [facility] Work Phone: 09-09-2021 13:37-0500 Respiratory rate 16 /min Dr. Justin Massey Work Phone: [facility] Work Phone: 09-09-2021 13:37-0500 SaO2% (BldA) [Mass fraction] 98 % Dr. Justin Massey Work Phone: [facility] Work Phone: 09-09-2021 13:37-0500 Systolic blood pressure 138 mm[Hg] Dr. Justin Massey Work Phone: [facility] Work Phone: 08-16-2021 13:10-0500 Body temperature 95.9 [degF] Dr. Justin Massey Work Phone: [facility] Work Phone: 08-16-2021 13:10-0500 Diastolic blood pressure 60 mm[Hg] Dr. Justin Massey Work Phone: [facility] Work Phone: 08-16-2021 13:10-0500 Heart rate 79 /min Dr. Justin Massey Work Phone: [facility] Work Phone: 08-16-2021 13:10-0500 Respiratory rate 16 /min Dr. Justin Massey Work Phone: [facility] Work Phone: 08-16-2021 13:10-0500 SaO2% (BldA) [Mass fraction] 97 % Dr. Justin Massey Work Phone: [facility] Work Phone: 08-16-2021 13:10-0500 Systolic blood pressure 124 mm[Hg] Dr. Justin Massey Work Phone: [facility] Work Phone: 07-19-2021 12:08-0500 Body temperature 97.8 [degF] Dr. Justin Massey Work Phone: [facility] Work Phone: 07-19-2021 12:08-0500 Diastolic blood pressure 73 mm[Hg] Dr. Justin Massey Work Phone: [facility] Work Phone: 07-19-2021 12:08-0500 Heart rate 79 /min Dr. Justin Massey Work Phone: [facility] Work Phone: 07-19-2021 12:08-0500 Respiratory rate 18 /min Dr. Justin Massey Work Phone: [facility] Work Phone: 07-19-2021 12:08-0500 SaO2% (BldA) [Mass fraction] 95 % Dr. Justin Massey Work Phone: [facility] Work Phone: 07-19-2021 12:08-0500 Systolic blood pressure 131 mm[Hg] Dr. Justin Massey Work Phone: [facility] Work Phone: 07-19-2021 11:43-0500 Body mass index (BMI) [Ratio] 39.2 kg/m2 Dr. Justin Massey Work Phone: [facility] Work Phone: 07-19-2021 11:43-0500 Body weight 123.[address] Justin Massey Work Phone: [facility] Work Phone: 07-16-2021 07:00-0500 Body temperature 97.5 [degF] Dr. Justin Massey Work Phone: [facility] Work Phone: 07-16-2021 07:00-0500 Body weight 125.[address] Justin Massey Work Phone: [facility] Work Phone: 07-16-2021 07:00-0500 Diastolic blood pressure 77 mm[Hg] Dr. Justin Massey Work Phone: [facility] Work Phone: 07-16-2021 07:00-0500 Heart rate 79 /min Dr. Justin Massey Work Phone: [facility] Work Phone: 07-16-2021 07:00-0500 Respiratory rate 18 /min Dr. Justin Massey Work Phone: [facility] Work Phone: 07-16-2021 07:00-0500 SaO2% (BldA) [Mass fraction] 96 % Dr. Justin Massey Work Phone: [facility] Work Phone: 07-16-2021 07:00-0500 Systolic blood pressure 130 mm[Hg] Dr. Justin Massey Work Phone: [facility] Work Phone: 07-02-2021 15:44-0500 Body temperature 98 [degF] Dr. Justin Massey Work Phone: [facility] Work Phone: 07-02-2021 15:44-0500 Diastolic blood pressure 66 mm[Hg] Dr. Justin Massey Work Phone: [facility] Work Phone: 07-02-2021 15:44-0500 Heart rate 76 /min Dr. Justin Massey Work Phone: [facility] Work Phone: 07-02-2021 15:44-0500 Respiratory rate 20 /min Dr. Justin Massey Work Phone: [facility] Work Phone: 07-02-2021 15:44-0500 SaO2% (BldA) [Mass fraction] 98 % Dr. Justin Massey Work Phone: [facility] Work Phone: 07-02-2021 15:44-0500 Systolic blood pressure 140 mm[Hg] Dr. Justin Massey Work Phone: [facility] Work Phone: 02-15-2021 09:44-0400 Body mass index (BMI) [Ratio] 38 kg/m2 Dr. Justin Massey Work Phone: [facility] Work Phone: Encounters Encounter Date Encounter Type Care Provider Facility Start: 05-19-2025 ambulatory Elena Dior Facility:[facility] Start: 04-21-2025 End: 04-21-[address] Elena Dior MD -Medical Out Work Phone: Start: 04-21-2025 End: 04-21-[address] Wale Floyd DO Work Phone: -[facility] Out Start: 04-03-2025 End: 04-03-[address] Wale Floyd DO Work Phone: -Laboratory Start: 04-03-2025 End: 04-03-[address] Chris Paris MD -Laboratory Work Phone: Start: 04-02-2025 End: 04-03-2025 ambulatory SPENCER VILLATORO Facility:[facility] Start: 03-24-2025 End: 03-24-[address] Elena Dior MD -Medical Out Work Phone: Start: 03-24-2025 End: 03-24-[address] Wale Floyd DO Work Phone: -Medical Out Start: 03-20-2025 End: 03-20-2025 Telemedicine consultation with patient Elena Dior MD Work Phone: Allergy Start: 03-20-2025 End: 03-20-2025 ambulatory Elena Dior MD Work Phone: Allergy Comment on above: Hypogammaglobulinemi a (HCC) (Primary Dx); Nonallergic rhinitis; Severe persistent asthma without complication (HCC); Bronchiectasis without complication (HCC) Start: 02-24-2025 End: 02-24-[address] Elena Dior MD -Medical Out Work Phone: Start: 02-24-2025 End: 02-24-[address] Art Ureña MD Work Phone: -Medical Out Start: 02-12-2025 End: 02-12-2025 Patient encounter procedure Db Fowler PA-C Work Phone: [facility] Comment on above: Superficial incision al surgical site infection (Primary Dx); Cutaneous abscess of face Start: 02-12-2025 End: 02-12-2025 ambulatory DB FOWLER Facility:[facility] Start: 02-08-2025 End: 02-08-[address] Art Ureña MD Work Phone: -Laboratory Start: 02-08-2025 End: 02-08-2025 Patient encounter procedure James H Roof SENIOR TEST ENGINEER-C -Laboratory Work Phone: Start: 02-08-2025 End: 02-08-2025 ambulatory Wale Floyd Facility:[facility] Start: 02-03-2025 End: 02-03-2025 Get Medical Advice Shabana Ramos MD Work Phone: Pulmonary Medicine Comment on above: Prescription refill Start: 01-27-2025 End: 01-27-[address] Elena Dior MD -Medical Out Work Phone: Start: 01-27-2025 End: 01-27-2025 ambulatory Wale Floyd Facility:[facility] Start: 01-27-2025 End: 01-27-2025 Office outpatient visit 15 minutes Brenda Chaparro APRN.CAKE ICER Work Phone: Pulmonary Medicine Comment on above: Asthma, moderate per sistent, well-controlled (HCC) (Primary Dx); History of environmental allergies; Gastroesophageal reflux disease, unspecified whether esophagitis present Start: 01-27-2025 End: 01-27-2025 ambulatory WALE L FLOYD Facility:[facility] Start: 12-30-2024 End: 12-30-[address] Elena Dior MD -Medical Out Work Phone: Start: 12-30-2024 End: 12-30-2024 ambulatory Wale Floyd Facility:[facility] Start: 12-28-2024 ambulatory WALE L FLOYD Facil ity:[facility] Start: 12-28-2024 End: 12-28-2024 Subsequent hospital visit by physician [facility] Work Phone: Radiology Comment on above: Blood blister [T14.8 XXA] Start: 12-26-2024 End: 02-25-2025 Follow-up encounter Celena Polanco APRN.CAKE ICER Work Phone: [facility] Start: 12-23-2024 End: 12-23-2024 Office outpatient visit 15 minutes Celena Polanco APRN.CAKE ICER Work Phone: [facility] Comment on above: Blood blister (Prima ry Dx); Blister of scrotum without infection, initial encounter; Scrotal swelling Start: 12-23-2024 End: 12-23-2024 ambulatory WALE Herrera SCARLETT Facility:[facility] Start: 12-20-2024 End: 12-20-2024 Telephone encounter Elena Dior MD Work Phone: Allergy Comment on above: PA FOR TEZSPIRE 2024 Start: 12-19-2024 Non-patient / Non-visit Ana olson NP-C -[facility] Work Phone: Start: 12-19-2024 End: 12-19-2024 Refill Elena Dior MD Work Phone: Allergy Comment on above: Refill Request Start: 12-18-2024 End: 12-18-2024 ambulatory TRICIA NUÑEZ Facility:[facility] Start: 12-18-2024 End: 12-18-2024 Patient encounter procedure Tricia Nuñez LABEL TACKER.CAKE ICER Work Phone: [facility] Comment on above: Blood blister (Prima ry Dx) Start: 12-16-2024 Non-patient / Non-visit Dr. Onael DEAN -[facility] Start: 12-16-2024 End: 12-16-[address] Art Ureña MD Work Phone: [facility] Work Phone: Start: 12-16-2024 End: 12-16-[address] Zbigniew Arrington MD -Cardiovascu lar Services Work Phone: Start: 12-16-2024 End: 12-16-2024 ambulatory Wale Floyd Facility:[facility] Start: 12-02-2024 End: 12-02-[address] Elena Dior MD -Medical Out Work Phone: Start: 12-02-2024 End: 12-02-[address] Art Ureña MD Work Phone: [facility] Work Phone: Start: 11-10-2024 End: 11-10-[address] Zbigniew Arrington MD -[facility] Work Phone: Start: 11-10-2024 End: 11-10-2024 ambulatory Art Ureña [facility] Start: 11-04-2024 End: 11-04-[address] Elena Dior MD -Medical Out Work Phone: Start: 11-04-2024 End: 11-04-2024 ambulatory Elena Dior Facility:[facility] Start: 10-31-2024 End: 10-31-2024 Refill Wale Floyd DO Work Phone: [facility] Comment on above: Refill Request Start: 10-10-2024 End: 10-12-2024 Telephone encounter Aurelia Hodge PA-C Work Phone: Orthopedics Comment on above: Results Start: 10-07-2024 End: 10-07-[address] Elena Dior MD -Medical Out Work Phone: Start: 10-07-2024 End: 10-07-2024 ambulatory Elena Dior Facility:[facility] Start: 10-05-2024 End: 10-05-2024 ambulatory AURELIA Sharon HODGE Facility:[facility] Start: 10-05-2024 End: 10-05-2024 Subsequent hospital visit by physician [facility] (I-Stat/1.5t) Work Phone: Radiology Comment on above: Lipoma of left thigh [D17.24] Start: 10-03-2024 End: 10-04-2024 Telephone encounter Wale Floyd DO Work Phone: [facility] Comment on above: Medication request f or MRI appt Start: 10-03-2024 End: 10-03-2024 ambulatory AURELIA Sharon HODGE Facility:[facility] Start: 10-03-2024 End: 10-03-2024 Subsequent hospital visit by physician [facility] Work Phone: Radiology Comment on above: Degeneration of inte rvertebral disc of lumbar region, unspecified whether pain present [M51.369] Start: 09-30-2024 End: 09-30-2024 ambulatory AURELIA HODGE Facility:[facility] Start: 09-30-2024 End: 09-30-2024 Patient encounter procedure Aurelia Hodge PA-C Work Phone: Orthopaedics Comment on above: Lipoma of left thigh (Primary Dx); Intramuscular lipoma; Degeneration of intervertebral disc of lumbar region, unspecified whether pain present Start: 09-22-2024 End: 09-22-2024 Refill Xiang Martins MD Work Phone: [facility] Comment on above: Med Change Request Start: 09-19-2024 End: 09-19-2024 ambulatory [facility] Facility:[facility] Start: 09-19-2024 End: 09-19-2024 Patient encounter procedure Hari Aden MD Work Phone: General Surgery Comment on above: Intramuscular lipoma (Primary Dx); Lipoma of left thigh; Umbilical hernia without obstruction and without gangrene Start: 09-17-2024 End: 09-20-2024 Refill Xiang Martins MD Work Phone: [facility] Comment on above: Refill Request Start: 09-09-2024 End: 09-09-[address] Elena Dior MD -Medical Out Work Phone: Start: 09-09-2024 End: 09-09-[address] Art Ureña MD Work Phone: [facility] Work Phone: Start: 09-08-2024 End: 11-08-2024 Follow-up encounter Jamaica Maldonado APRN.CNP Work Phone: [facility] Start: 08-26-2024 End: 08-26-2024 ambulatory [facility] Facility:[facility] Start: 08-26-2024 End: 08-26-2024 ambulatory FANG MAYEN Facility:[facility] Start: 08-26-2024 End: 08-26-2024 Patient encounter procedure Fang Mayen APRN.CAKE ICER Work Phone: [facility] Comment on above: Encounter to [facility] (Primary Dx); Screening for depression; Encounter for screening examination for other mental health and behavioral disorders; Lipoma of left thigh; Mixed hyperlipidemia; Screening for diabetes mellitus; Screening for thyroid disorder; Encounter for vitamin deficiency screening; Body mass index (BMI) 40.0-44.9, adult (HCC); Essential (primary) hypertension; Vitamin D deficiency, unspecified Start: 08-17-2024 End: 08-17-2024 ambulatory Elena Dior MD Work Phone: Allergy Comment on above: Hypogammaglobulinemi a (HCC) (Primary Dx); Severe persistent asthma without complication; Bronchiectasis without complication (HCC); Nonallergic rhinitis Start: 08-17-2024 End: 08-17-2024 Telemedicine consultation with patient Elena Dior MD Work Phone: Allergy Start: 08-12-2024 End: 08-12-[address] Elena Dior MD -Medical Out Work Phone: Start: 08-12-2024 End: 08-12-2024 ambulatory Art Ureña Facility:[facility] Start: 08-10-2024 End: 08-10-2024 ambulatory ART UREÑA Facility:[facility] Start: 08-05-2024 End: 08-05-2024 Patient encounter procedure Taylor Pierce APRN.CAKE ICER Work Phone: Neurology Comment on above: CARMELLA on CPAP (Primary Dx) Start: 08-05-2024 End: 08-05-2024 ambulatory TAYLOR PIERCE Facility:[facility] Start: 07-29-2024 End: 07-29-2024 ambulatory Pulm [facility] Work Phone: PULM LAB [facility] Comment on above: Spirometry Start: 07-29-2024 End: 07-29-2024 Patient encounter procedure [facility] Work Phone: PUL[facility] LAB [facility] Comment on above: Severe asthma withou t complication, unspecified whether persistent (Primary Dx); Abnormal sputum; Morbid obesity (HCC) Start: 07-15-2024 End: 07-15-[address] Elena Dior MD -Medical Out Work Phone: Start: 07-15-2024 End: 07-15-2024 ambulatory [facility] Facility:[facility] Start: 06-17-2024 End: 06-17-[address] Elena Dior MD -Medical Out Work Phone: Start: 06-17-2024 End: 06-17-2024 [facility] Facility:[facility] Start: 05-31-2024 End: 05-31-[address] Shabana Ramos MD -Pulmonary Services/Neurology Work Phone: Start: 05-31-2024 End: 05-31-2024 [facility] Facility:[facility] Start: 05-23-2024 End: 05-23-2024 Orders Only Shabana Ramos MD Work Phone: Pulmonary Medicine Start: 05-20-2024 End: 05-20-[address] Elena Dior MD -Medical Out Work Phone: Start: 05-20-2024 End: 05-20-2024 [facility] Facility:[facility] Start: 05-17-2024 End: 05-17-2024 ambulatory [facility] Facility:[facility] Start: 05-16-2024 End: 05-16-2024 Orders Only Shabana Ramos MD Work Phone: Pulmonary Medicine Comment on above: Bronchiectasis witho ut complication (HCC) (Primary Dx) Start: 04-26-2024 End: 04-27-2024 ambulatory Brenda Chaparro APRN.CAKE ICER Work Phone: Pulmonary Medicine Comment on above: culture results Start: 04-26-2024 End: 04-27-2024 E-mail encounter from caregiver Brenda M Juan ARAUZ Work Phone: Pulmonary Medicine Start: 04-22-2024 End: 04-22-2024 ambulatory SHABANA RAMOS Facility:[facility] Start: 04-21-2024 End: 04-22-2024 ambulatory Brenda Chaparro APRN.CAKE ICER Work Phone: Pulmonary Medicine Comment on above: Cough Start: 04-15-2024 End: 04-15-2024 Orders Only Brenda Chaparro APRN.CAKE ICER Work Phone: Pulmonary Medicine Start: 04-13-2024 End: 04-13-2024 Subsequent hospital visit by physician [facility] Gerard Bethea Work Phone: Radiology Comment on above: Cough, unspecified t ype [R05.9] Start: 04-13-2024 End: 04-13-2024 ambulatory BRENDA CHAPARRO Facility:[facility] Start: 04-13-2024 End: 04-13-2024 Office outpatient visit 40 minutes Brenda Chaparro APRN.CAKE ICER Work Phone: Pulmonary Medicine Comment on above: Severe persistent as thma with acute exacerbation (Primary Dx); Cough, unspecified type Start: 04-11-2024 End: 04-12-2024 Telephone encounter Elena Dior MD Work Phone: Allergy Comment on above: Orders Start: 04-10-2024 End: 04-11-2024 ambulatory Shabana Ramos MD Work Phone: Pulmonary Medicine Comment on above: Recent ER visit Start: 04-03-2024 End: 04-03-2024 Patient encounter procedure Tricia Nuñez APRN.CAKE ICER Work Phone: [facility] Comment on above: Sore throat (Primary Dx); At increased risk of exposure to COVID-19 virus; Other coronavirus as the cause of diseases classified elsewhere Start: 03-16-2024 End: 03-16-2024 ambulatory Elena Dior MD Work Phone: Allergy Comment on above: Hypogammaglobulinemi a (HCC) (Primary Dx); Severe persistent asthma without complication; Bronchiectasis without complication (HCC) Start: 03-16-2024 End: 03-16-2024 Telemedicine consultation with patient Elena Dior MD Work Phone: Allergy Start: 02-25-2024 End: 02-25-2024 Patient encounter procedure Shabana Ramos MD Work Phone: Pulmonary Medicine Comment on above: Severe persistent as thma without complication (Primary Dx); Low immunoglobulin level; Morbid obesity (HCC) Start: 12-23-2023 ambulatory Barbara Oscar PA-C Work Phone: Pulmonary Medicine Comment on above: Tezspire injection Start: 12-23-2023 Telephone encounter Elena hay MD Work Phone: Allergy Comment on above: new order for tezspi re Start: 11-04-2023 End: 11-04-[address] Art Ureña Work Phone: [facility] Work Phone: Start: 11-04-2023 End: 11-04-[address] Art Ureña Work Phone: [facility]-Medical Out Work Phone: Start: 10-23-2023 End: 10-23-[address] Art Ureña Work Phone: [facility] Work Phone: Start: 10-23-2023 End: 10-23-[address] Art Ureña Work Phone: [facility]-Cardiovascu lar Services Work Phone: Start: 10-22-2023 End: 10-22-[address] Art Ureña Work Phone: [facility] Work Phone: Start: 10-07-2023 End: 10-07-[address] Art Ureña Work Phone: [facility] Work Phone: Start: 10-07-2023 End: 10-07-[address] Art Ureña Work Phone: [facility] Out Work Phone: Start: 09-10-2023 Refill Barbara Ocsar PA-C Work Phone: Pulmonary Medicine Comment on above: Refill Request Start: 09-09-2023 End: 09-09-[address] Art Ureña Work Phone: [facility] Work Phone: Start: 09-09-2023 End: 09-09-[address] Art Ureña Work Phone: [facility] Out Work Phone: Start: 08-19-2023 End: 08-19-2023 Office outpatient visit 25 minutes Barbara GOLDEN-C Work Phone: Pulmonary Medicine Comment on above: Severe persistent as thma without complication (Primary Dx); Morbid obesity (HCC); Bronchiectasis without complication (HCC); H/O recurrent pneumonia; CARMELLA (obstructive sleep apnea) Start: 08-10-2023 End: 08-10-[address] Art Ureña Work Phone: [facility] Work Phone: Start: 08-10-2023 End: 08-10-[address] Art Ureña Work Phone: [facility] Out Work Phone: Start: 08-06-2023 End: 08-06-2023 Patient encounter procedure Elena Dior MD Work Phone: Allergy Comment on above: Hypogammaglobulinemi a (HCC) (Primary Dx); Severe persistent asthma without complication; Bronchiectasis without complication (HCC); Nonallergic rhinitis Start: 07-13-2023 End: 07-13-[address] Art Ureña Work Phone: [facility] Work Phone: Start: 07-13-2023 End: 07-13-[address] [facility] Start: 07-02-2023 End: 07-02-[address] Art Ureña Work Phone: [facility] Work Phone: Start: 06-18-2023 Telephone encounter Elena hay MD Work Phone: Allergy Comment on above: Results; Follow Up Start: 06-15-2023 End: 06-15-[address] Art Ureña Work Phone: [facility] Work Phone: Start: 06-15-2023 End: 06-15-[address] 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 Start: 05-18-2023 End: 05-18-2023 Patient encounter procedure [facility] Work Phone: [facility] Start: 05-18-2023 End: 05-18-2023 Office outpatient visit 25 minutes Barbara Martins PA-C Work Phone: Pulmonary Medicine Comment on above: Severe persistent as thma without complication (Primary Dx); Bronchiectasis without complication (HCC); Morbid obesity (HCC); H/O recurrent pneumonia; CARMELLA (obstructive sleep apnea) Start: 05-15-2023 End: 05-15-[address] Art Ureña Work Phone: [facility] Work Phone: Start: 05-15-2023 End: 05-15-[address] Art Ureña Work Phone: [facility]-Medical Out Work Phone: Start: 05-07-2023 End: 05-07-[address] Art Ureña Work Phone: [facility] Work Phone: Start: 05-06-2023 End: 05-06-2023 Nursing evaluation of patient and report Nurse Hiren Jules Work Phone: Allergy Comment on above: Need for vaccination (Primary Dx) Start: 04-29-2023 Orders Only Elena Dior MD Work Phone: Allergy Comment on above: Hypogammaglobulinemi a (HCC) (Primary Dx) Lab results Start: 04-21-2023 ambulatory Shabana Ramos MD Work Phone: Pulmonary Medicine Comment on above: Pulmonary toileting Prevnar 20 vaccine Start: 04-17-2023 End: 04-17-[address] Art Ureña Work Phone: [facility] Work Phone: Start: 04-17-2023 End: 04-17-[address] [facility] Start: 04-06-2023 End: 04-06-[address] Art Ureña Work Phone: [facility] Work Phone: Start: 03-31-2023 End: 03-31-2023 Patient encounter procedure Elena Dior MD Work Phone: Allergy Comment on above: Hypogammaglobulinemi a (HCC) (Primary Dx); Severe persistent asthma without complication; Chronic rhinitis Start: 03-23-2023 Telephone encounter Shabana Ramos MD Work Phone: Pulmonary Medicine Comment on above: Medication Problem Start: 03-20-2023 End: 03-20-[address] Art [facility]re[facility] Start: 02-26-2023 ambulatory Shabana Ramos MD Work Phone: Pulmonary Medicine Comment on above: Culture result Start: 02-26-2023 E-mail encounter fro m caregiver Shabana Ramos MD Work Phone: [facility] Start: 02-23-2023 End: 02-23-[address] Art [facility]re[facility] Start: 02-19-2023 Orders Only Shabana Ramos MD Work Phone: Pulmonary Medicine Comment on above: Bronchiectasis witho ut complication (HCC) (Primary Dx) Start: 02-13-2023 Orders Only Shabana Ramos MD Work Phone: Pulmonary Medicine Comment on above: Pulmonary fibrosis ( HCC) (Primary Dx) Hypogammaglobulinemi a (HCC) (Primary Dx) Start: 02-12-2023 End: 02-12-2023 Patient encounter procedure Shabana Ramos MD Work Phone: Pulmonary Medicine Comment on above: Severe persistent as thma without complication (Primary Dx); Bronchiectasis without complication (HCC); Morbid obesity (HCC); H/O recurrent pneumonia Start: 01-23-2023 End: 01-23-[address] Art Ureña Work Phone: [facility]-Medical Out Work Phone: Start: 01-22-2023 End: 01-22-[address] Art Ureña Work Phone: [facility] Work Phone: Start: 01-21-2023 End: 01-21-[address] Art Ureña Work Phone: [facility]-Pulmonary Medicine [facility] Work Phone: Start: 01-16-2023 End: 01-16-2023 ambulatory [facility] Work Phone: [facility] Comment on above: Spirometry Start: 01-16-2023 End: 01-16-2023 Patient encounter procedure [facility] Work Phone: [facility] Comment on above: Severe persistent as thma with acute exacerbation (Primary Dx); Recurrent pneumonia; Morbid obesity (HCC) Start: 01-14-2023 Non-patient / Non-visit Dr. Elma Ureña Work Phone: [facility] Work Phone: Start: 01-13-2023 Non-patient / Non-visit Dr. Elma Ureña Work Phone: [facility] Work Phone: Start: 01-12-2023 Non-patient / Non-visit Dr. Elma Ureña Work Phone: [facility] Work Phone: Start: 01-11-2023 Non-patient / Non-visit Dr. Elma Ureña Work Phone: [facility] Work Phone: Start: 01-11-2023 End: 01-14-2023 Evaluation and management of inpatient Dr. Art Ureña Work Phone: [facility]-Progressive Care Unit Work Phone: Start: 12-26-2022 End: 12-26-[address] Art Ureña Work Phone: [facility] Work Phone: Start: 12-26-2022 End: 12-26-[address] Art Ureña Work Phone: [facility]-Medical Out Start: 12-17-2022 End: 01-02-[address] Art Ureña Work Phone: [facility] Work Phone: Start: 12-17-2022 End: 01-02-[address] Art Ureña Work Phone: [facility]-Cardiac Rehab Work Phone: Start: 12-17-[address] Art Ureña Work Phone: [facility]-Cardiac Rehab Start: 12-03-2022 End: 12-03-[address] Art Ureña Work Phone: [facility] Work Phone: Start: 12-03-2022 End: 12-03-[address] Art Ureña Work Phone: [facility]-Cardiac Rehab Start: 11-28-2022 End: 11-28-[address] Art Ureña Work Phone: [facility]-Medical Out Start: 11-28-2022 End: 11-28-[address] Art Ureña Work Phone: [facility]-Pulmonary Medicine [facility] Start: 11-17-[address] Art Ureña Work Phone: [facility]Cardiac Rehab Start: 11-12-2022 End: 11-12-[address] Art Ureña Work Phone: [facility] Work Phone: Start: 11-12-2022 End: 11-12-[address] Art Ureña Work Phone: [facility] Start: 10-31-2022 End: 10-31-[address] Art Ureña Work Phone: [facility] Work Phone: Start: 10-31-2022 End: 10-31-[address] Art Ureña Work Phone: [facility]-Medical Out Start: 10-29-2022 End: 11-02-[address] Art Ureña Work Phone: [facility]-Cardiac [facility]hab Start: 10-29-[address] Art Ureña Work Phone: [facility] Start: 10-13-[address] Art Ureña Work Phone: [facility] Start: 10-10-2022 End: 10-10-[address] Art Ureña Work Phone: [facility] Start: 10-06-2022 End: 10-06-[address] Art Ureña Work Phone: [facility] Work Phone: Start: 10-06-2022 End: 10-06-2022 Patient encounter procedure Dr. Art Ureña Work Phone: [facility] Start: 09-25-2022 End: 09-25-[address] Art Ureña Work Phone: [facility] Start: 09-24-2022 End: 10-03-[address] Art Ureña Work Phone: [facility] Work Phone: Start: 09-24-2022 End: 10-03-[address] Art Ureña Work Phone: [facility] Start: 09-09-2022 End: 09-09-[address] Art Ureña Work Phone: [facility] Work Phone: Start: 09-09-2022 End: 09-09-[address] Art Ureña Work Phone: [facility] Start: 09-08-[address] Art Ureña Work Phone: [facility] Start: 09-05-[address] Art Ureña Work Phone: [facility] Start: 09-05-2022 End: 09-05-[address] Art Ureña Work Phone: [facility] Work Phone: Start: 09-05-2022 End: 09-05-[address] Art Ureña Work Phone: [facility] Start: 09-02-2022 End: 09-02-[address] Art Ureña Work Phone: [facility] Work Phone: Start: 09-02-2022 End: 09-02-[address] Art Ureña Work Phone: [facility] Start: 09-01-2022 End: 09-02-[address] Art Ureña Work Phone: [facility] Start: 09-01-[address] Art Ureña Work Phone: [facility] Start: 09-01-2022 End: 09-01-[address] Art Ureña Work Phone: [facility] Start: 08-27-2022 End: 08-27-[address] Art Ureña Work Phone: [facility] Work Phone: Start: 08-27-2022 End: 08-27-[address] Art Ureña Work Phone: [facility] Start: 08-25-2022 End: 08-25-[address] Art Ureña Work Phone: [facility] Start: 08-21-2022 End: 08-21-[address] Art Ureña Work Phone: [facility] Start: 08-15-2022 End: 08-15-[address] Art Ureña Work Phone: [facility] Work Phone: Start: 08-15-2022 End: 08-15-[address] Art Ureña Work Phone: [facility] Start: 08-15-2022 Non-patient / Non-visit Dr. Elma Ureña Work Phone: [facility] Start: 08-14-2022 End: 08-15-2022 Evaluation and management of inpatient Dr. Art Ureña Work Phone: [facility] Start: 08-14-2022 End: 08-15-[address] Art Ureña Work Phone: [facility] Work Phone: Start: 08-14-2022 Non-patient / Non-visit Dr. Elma Ureña Work Phone: [facility] Start: 08-12-2022 End: 08-12-[address] Art Ureña Work Phone: [facility] Start: 08-08-2022 End: 08-08-[address] Art Ureña Work Phone: [facility] Work Phone: Start: 08-08-2022 End: 08-08-[address] Art Ureña Work Phone: [facility] Start: 08-08-2022 End: 08-08-[address] Art Ureña Work Phone: [facility] Start: 08-05-2022 Non-patient / Non-visit Dr. Elma Ureña Work Phone: [facility] Start: 07-11-2022 End: 07-11-[address] Art Ureña Work Phone: [facility] Work Phone: Start: 07-11-2022 End: 07-11-[address] Art Ureña Work Phone: [facility] Start: 07-11-2022 End: 07-11-[address] [facility] Start: 07-10-2022 End: 07-10-[address] Art Ureña Work Phone: [facility] Start: 06-18-2022 Non-patient / Non-visit Dr. Denise Theodore Work Phone: [facility] Start: 06-16-2022 End: 06-16-[address] Fabio Theodore Work Phone: [facility] Work Phone: Start: 06-16-2022 End: 06-16-[address] Fabio Theodore Work Phone: [facility] Start: 06-12-2022 End: 06-12-[address] Fabio Theodore Work Phone: [facility] Work Phone: Start: 06-12-2022 End: 06-12-[address] Fabio Theodore [facility] Start: 06-12-2022 End: 06-12-[address] Fabio Theodore [facility] Start: 06-11-2022 Non-patient / Non-visit Dr. Denise Theodore Work Phone: [facility] Start: 06-11-[address] Fabio Theodore Work Phone: [facility] Start: 06-09-2022 End: 06-09-[address] Fabio Theodore Work Phone: [facility] Work Phone: Start: 06-09-2022 End: 06-09-[address] Fabio Theodore Work Phone: [facility] Start: 06-02-2022 End: 06-02-2022 Emergency department patient visit Dr. Fabio Theodore Work Phone: [facility] Start: 06-02-2022 End: 06-02-[address] Fabio Theodore Work Phone: [facility] Start: 05-09-2022 End: 05-09-[address] Fabio Theodore Work Phone: [facility] Start: 04-24-2022 End: 04-24-[address] Fabio Theodore Work Phone: [facility] Start: 04-22-2022 End: 04-22-[address] Fabio Theodore Work Phone: [facility] Start: 04-11-2022 End: 04-11-[address] Justin Massey Work Phone: [facility] Work Phone: Start: 04-11-2022 End: 04-11-[address] Justin Massey Work Phone: [facility] Start: 04-08-2022 End: 04-08-[address] Justin Massey Work Phone: [facility] Start: 03-31-2022 End: 03-31-[address] Justin Massey Work Phone: [facility] Start: 03-19-2022 End: 03-19-[address] Justin Massey Work Phone: [facility] Start: 03-12-2022 End: 03-12-[address] Justin Massey Work Phone: [facility] Work Phone: Start: 03-12-2022 End: 03-12-[address] [facility] Start: 02-26-2022 End: 02-26-[address] Justin Massey [facility] Start: 02-22-2022 End: 02-22-[address] Justin Massey Work Phone: [facility] Work Phone: Start: 02-22-2022 End: 02-22-[address] Justin Massey Work Phone: [facility] Start: 02-10-2022 End: 02-10-[address] [facility] Start: 01-24-2022 End: 01-25-2022 Emergency department patient visit Dr. Justin Massey Work Phone: [facility] Start: 01-23-2022 End: 01-23-[address] Justin Massey Work Phone: [facility] Start: 01-17-2022 End: 01-17-[address] Justin Massey Work Phone: [facility] Start: 01-13-2022 End: 01-13-[address] [facility] Start: 12-13-2021 End: 12-13-[address] [facility] Start: 12-09-2021 End: 12-09-[address] Justin Russell Phone: [facility] Start: 11-15-2021 End: 11-15-[address] Justin Russell [facility] Start: 11-15-2021 End: 11-15-[address] Justin Massey Work Phone: [facility] Start: 11-08-2021 End: 11-08-[address] Justin Massey Work Phone: [facility] Start: 10-20-2021 End: 10-20-[address] Justin Russell Phone: [facility] Start: 10-16-2021 End: 10-16-[address] Justin [facility] Start: 09-13-2021 End: 09-13-[address] Justin Russell [facility] Start: 09-09-2021 End: 09-09-[address] Justin Massey Work Phone: [facility] Start: 09-09-2021 End: 09-09-[address] Justin Massey Work Phone: [facility] Start: 08-16-2021 End: 08-16-[address] [facility] Start: 07-19-2021 End: 07-19-[address] Justin Massey Work Phone: [facility] Start: 07-16-2021 End: 07-16-[address] Justin Massey Work Phone: [facility] Start: 07-04-2021 End: 07-04-[address] Justin Massey Work Phone: [facility] Start: 07-02-2021 End: 07-02-[address] Justin Massey Work Phone: [facility] Start: 06-24-2017 End: 06-24-2017 Ambulatory [facility] Procedures Date Procedure Procedure Detail Performing Clinician Start: 04-03-2025 Prostate specific an tigen measurement Dr. Wale Floyd DO Work Phone: Comment on above: This test was perfor med using the [employer] tPSA method. Measured values of a patient sample can vary depending on the testing procedure used. PSA values determined on patient samples by different testing procedures cannot be used interchangeably. If there is a change in PSA assays while monitoring therapy, sequential testing should be performed to confirm baseline values. Start: 10-05-2024 Mri lower extrem oth /thn jt w/o & w/contr matr Aurelia Hodge PA-C Work Phone: Start: 08-26-2024 Adult depression screening assessment Fang Mayen APRN.[employer] Work Phone: Start: 08-10-2024 Lipid 1996 panel - S lesly or Plasma Elena Dior MD Work Phone: Start: 07-29-2024 Nitric oxide gas determination Elena Dior MD Work Phone: Start: 07-29-2024 Brncdilat rspse spmt ry pre&post-brncdilat admn Elena Dior MD Work Phone: Start: 04-13-2024 Radiologic exam ches t 2 views Brenda Chaparro LABEL TACKER.[employer] Work Phone: Start: 04-03-2024 STREP A MOLECULAR (POC) Daniela Franco LABEL TACKER.[employer] Work Phone: Start: 05-18-2023 Noninvasive ear/puls e oximetry penelope radha Matias Rebecca PA-C Work Phone: Start: 01-16-2023 Nitric oxide gas determination Shabana Ramos MD Work Phone: Start: 01-16-2023 Brncdilat rspse spmt ry pre&post-brncdilat admn Shabana Ramos MD Work Phone: Start: 01-11-2023 Investigation of transfusion reaction Dr. Art Ureña Work Phone: Start: 01-11-2023 Legionella pneumophi la antigen assay Dr. Art Ureña Work Phone: Start: 01-11-[address] Art Ureña Work Phone: Start: 01-11-[address] l culture Dr. Art Ureña Work Phone: Start: 01-11-2023 SARS-CoV-2 & FLU Ant igen (Rapid) Dr. Art Ureña Work Phone: Start: 01-11-2023 Streptococcus pneumo niae Antigen (M Dr. Art Ureña Work Phone: Start: 01-11-2023 Plain chest X-ray Dr. Sharon Ureña Work Phone: Start: 11-12-2022 Radiography of thora cic spine Dr. Art Ureña Work Phone: Start: 11-12-2022 X-ray of bilateral r ibs, three views without chest x-ray Dr. Art Ureña Work Phone: Start: 08-14-2022 History of placement of stent for coronary artery disease History of coronary artery stent placement Dr. Zbigniew Arrington MD Comment on above: PCI-ENEDINA to mLAD w/ 3 .0 x 18 mm Resolute Darrell RX ENEDINA 08/14/22 Start: 08-12-2022 CT of chest without contrast Dr. Art Ureña Work Phone: Start: 06-02-2022 Plain chest X-ray Dr. Tina Theodore Work Phone: Start: 04-08-2022 MRI of lower limb wi th contrast Dr. Justin Massey Work Phone: Start: 01-25-2022 CT angiography of ch est with contrast Dr. Justin Massey Work Phone: Start: 01-23-[address] Justin Massey Work Phone: Start: 11-15-2021 Plain chest X-ray Dr. Armond Massey Work Phone: Start: 02-13-2018 Lipid 1996 panel - S lesly or Plasma Shabana Ramos MD Work Phone: Start: 06-24-2017 Colonoscopy Pulm Wstr Work Phone: Bacteria identificat ion test Dr. Art Ureña Work Phone: H/O: surgery S/P correction o f deviated nasal septum Dr. Justin Massey Work Phone: History of cataract extraction History of cataract extraction Dr. Justin Massey Work Phone: History of cataract extraction History of cataract extraction Dr. Art Ureña Work Phone: History of placement of stent for coronary artery disease History of coronary artery stent placement Dr. Art Ureña Work Phone: Comment on above: X1 2022 History of tonsillectomy History of tonsillectomy Dr. Justin Massey Work Phone: History of tonsillectomy History of tonsillectomy Dr. Art Ureña Work Phone: Investigation of transfusion reaction Dr. Justin Massey Work Phone: Investigation of transfusion reaction Dr. Art Ureña Work Phone: Microscopic observat ion [Identifier] in Unspecified specimen by Gram stain Dr. Art Ureña Work Phone: Nasopharyngeal Culture Dr. Armond Massey Work Phone: Respiratory microbia l culture Dr. Justin Massey Work Phone: Respiratory microbia l culture Dr. Art Ureña Work Phone: SARS-CoV-2 & FLU Ant igen (Rapid) Dr. Justin Massey Work Phone: Plan of Treatment Date Care Activity Detail Author Start: 08-18-2033 Urine microalbumin profile DTaP,Tdap,Td Vaccine (3 - Td or Tdap) [facility] Start: 08-10-2029 Lipid panel Lipid Screening [facility] Start: 08-26-2027 Diabetes Screening Diabetes Screening [facility] Start: 06-24-2027 Colonoscopy COLONOSCOPY [facility] Start: 06-24-2027 COLORECTAL CANCER SCREENING COLORECTAL CANCER SCREENING [facility] Start: 06-24-2027 Screening for malignant neoplasm of colon [facility] Start: 12-23-2025 Annual PCP Team Chronic Disease Visit Annual PCP Team Chronic Disease Visit [facility] Start: 09-17-2025 End: 12-17-2025 IgA [Mass/volume] in Serum or Plasma IMMUNOGLOBULIN A Lab Routine Hypogammaglobulinemia (HCC) Expected: 09/17/2025 (Approximate), Expires: 12/17/2025 [facility] Comment on above: Expected: 09/17/2025 (Approximate), Expi res: 12/17/2025 Start: 09-17-2025 End: 12-17-2025 IgG [Mass/volume] in Serum or Plasma IMMUNOGLOBULIN G Lab Routine Hypogammaglobulinemia (HCC) Expected: 09/17/2025 (Approximate), Expires: 12/17/2025 [facility] Work Phone: Comment on above: Expected: 09/17/2025 (Approximate), Expi res: 12/17/2025 Start: 09-17-2025 End: 12-17-2025 IgM [Mass/volume] in Serum or Plasma IMMUNOGLOBULIN M Lab Routine Hypogammaglobulinemia (HCC) Expected: 09/17/2025 (Approximate), Expires: 12/17/2025 [facility] Comment on above: Expected: 09/17/2025 (Approximate), Expi res: 12/17/2025 Start: 08-26-2025 Annual PCP Team Chronic Disease Visit Annual PCP Team Chronic Disease Visit [facility] Start: 08-26-2025 Anxiety Screening Anxiety Screening [facility] Start: 08-26-2025 BP Controlled (<130/80) BP Controlled (<130/80) [facility] Start: 08-26-2025 Depression Screening Depression Screening [facility] Start: 08-04-2025 End: 08-04-2025 Patient encounter procedure Neurology Comment on above: CARMELLA on pap, DME: MOIRA Dupont 08/05/24 RT Start: 07-28-2025 End: 07-28-2025 Patient encounter procedure Pulmonary Medicine Comment on above: 6 month f/u Start: 07-03-2025 End: 07-03-2025 Patient encounter procedure 07/03/2025 10:00 AM EST Office Visit [facility] [address] [place], [place] [id number] Wale Floyd DO [address] [place] [address] follow [facility] Comment on above: follow Start: 04-03-2025 BP Controlled (<130/80) BP Controlled (<130/80) [facility] Start: 04-03-2025 Patient encounter procedure Registered Clinical -Laboratory Work Phone: Start: 03-20-2025 End: 03-20-2025 ambulatory 03/20/2025 8:00 AM EDT [facility] [address] [address] Elena Dior MD [address], [place] [id number] Lab f/u-Low IgG, bronchiectasis, recurrent infections Allergy Comment on above: Lab f/u-Low IgG, bronchiectasis, recurre nt infections Start: 03-06-2025 Influenza vaccination Influenza Vaccine (#1) [facility] Start: 02-03-2025 End: 05-05-2025 IgA [Mass/volume] in Serum or Plasma IMMUNOGLOBULIN A Lab Routine Hypogammaglobulinemia (HCC) Expected: 02/03/2025 (Approximate), Expires: 05/05/2025 [facility] Comment on above: Expected: 02/03/2025 (Approximate), Expi res: 05/05/2025 Start: 02-03-2025 End: 05-05-2025 IgG [Mass/volume] in Serum or Plasma IMMUNOGLOBULIN G Lab Routine Hypogammaglobulinemia (HCC) Expected: 02/03/2025 (Approximate), Expires: 05/05/2025 [facility] Work Phone: Comment on above: Expected: 02/03/2025 (Approximate), Expi res: 05/05/2025 Start: 02-03-2025 End: 05-05-2025 IgM [Mass/volume] in Serum or Plasma IMMUNOGLOBULIN M Lab Routine Hypogammaglobulinemia (HCC) Expected: 02/03/2025 (Approximate), Expires: 05/05/2025 [facility] Comment on above: Expected: 02/03/2025 (Approximate), Expi res: 05/05/2025 Start: 02-03-2025 End: 02-03-2025 ambulatory 02/03/2025 10:30 AM EDT Results Only [facility] [address] [facility] [place] [address] [facility] Start: 01-27-2025 End: 01-27-2025 Patient encounter procedure Pulmonary Medicine Comment on above: 6m f/up Start: 12-28-2024 End: 12-28-2024 Patient encounter procedure 12/28/2024 8:30 AM EDT Appointment Radiology [address] [place] [address] Blood blister [T14.8XXA]; Scrotal swelling [N50.89]; Blister of scrotum without infection, initial encounter [S30.823A] Radiology Comment on above: Blood blister [T14.8XXA]; Scrotal swelli ng [N50.89]; Blister of scrotum without infection, initial encounter [S30.823A] Start: 12-23-2024 End: 12-23-2024 Patient encounter procedure 12/23/2024 3:00 PM EDT Office Visit [facility] [address] [place], [place] [id number] Celena Polanco APRN.[employer] [address] [place] [address] follow up form [facility] Comment on above: follow up form [facility] Start: 12-23-2024 End: 03-24-2025 C reactive protein [Mass/volume] in Serum or Plasma [facility] Comment on above: Expected: 12/23/2024, Expires: Start: 12-23-2024 End: 03-24-2025 CBC W Auto Differential panel - Blood [facility] Comment on above: Expected: 12/23/2024, Expires: Start: 12-23-2024 End: 03-24-2025 Nuclear Ab [Presence] in Serum by Immunoassay [facility] Comment on above: Expected: 12/23/2024, Expires: Start: 12-23-2024 End: 01-22-2026 US.doppler Scrotum and testicle US SCROTUM AND CONTENTS Radiology Routine Blood blister Scrotal swelling Blister of scrotum without infection, initial encounter Expected: 12/23/2024, Expires: 01/22/2026 [facility] Work Phone: Comment on above: Expected: 12/23/2024, Expires: Start: 11-07-2024 End: 11-07-2024 Patient encounter procedure 11/07/2024 11:00 AM EDT Office Visit General Surgery [address] [id number] Jose Gilbert MD [address] [place] [address] Umbilical hernia without obstruction and without gangrene [K42.9] General Surgery Comment on above: Umbilical hernia without obstruction and without gangrene [K42.9] Start: 10-28-2024 Covid-19 Vaccine () Covid-19 Vaccine () [facility] Start: 10-05-2024 End: 10-05-2024 Patient encounter procedure 10/05/2024 9:00 AM EDT Appointment Radiology [address] [place] [address] Lipoma of left thigh [D17.24] Radiology Comment on above: Lipoma of left thigh [D17.24] Start: 10-05-2024 Subsequent hospital visit by physician 10/05/2024 9:00 AM EDT Hospital Encounter Radiology [address] [place] [address] Lipoma of left thigh [D17.24] Radiology Comment on above: Lipoma of left thigh [D17.24] Start: 10-03-2024 End: 10-03-2024 Patient encounter procedure 10/03/2024 10:00 AM EDT Appointment Radiology [address] [place] [address] Degeneration of intervertebral disc of lumbar region, unspecified whether pain p... Radiology Comment on above: Degeneration of intervertebral disc of l umbar region, unspecified whether pain p... 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] Orthopaedics Comment on above: Lipoma of left thigh [D17.24]; Intramusc ular lipoma [D17.9] Start: 09-19-2024 End: 09-19-2024 Patient encounter procedure 09/19/2024 4:00 PM EDT Office Visit General Surgery [address] [place] [address] Hari Aden MD [address] [place] [address] : Lipoma of left thigh [D17.24] General Surgery Comment on above: : Lipoma of left thigh [D17.24] Start: 09-13-2024 End: 12-13-2024 IgA [Mass/volume] in Serum or Plasma IMMUNOGLOBULIN A Lab Routine Hypogammaglobulinemia (HCC) Expected: 09/13/2024 (Approximate), Expires: 12/13/2024 [facility] Comment on above: Expected: 09/13/2024 (Approximate), Expi res: 12/13/2024 Start: 09-13-2024 End: 12-13-2024 IgG [Mass/volume] in Serum or Plasma IMMUNOGLOBULIN G Lab Routine Hypogammaglobulinemia (HCC) Expected: 09/13/2024 (Approximate), Expires: 12/13/2024 [facility] Comment on above: Expected: 09/13/2024 (Approximate), Expi res: 12/13/2024 Start: 09-13-2024 End: 12-13-2024 IgM [Mass/volume] in Serum or Plasma IMMUNOGLOBULIN M Lab Routine Hypogammaglobulinemia (HCC) Expected: 09/13/2024 (Approximate), Expires: 12/13/2024 [facility] Comment on above: Expected: 09/13/2024 (Approximate), Expi res: 12/13/2024 Start: 08-26-2024 End: 11-25-2024 25-hydroxyvitamin D3 [Mass/volume] in Serum or Plasma [facility] Comment on above: Expected: 08/26/2024, Expires: Start: 08-26-2024 End: 11-25-2024 CBC panel - Blood by Automated count [facility] Work Phone: Comment on above: Expected: 08/26/2024, Expires: Start: 08-26-2024 End: 11-25-2024 Cobalamin (Vitamin B12) [Mass/volume] in Serum or Plasma [facility] Comment on above: Expected: 08/26/2024, Expires: Start: 08-26-2024 End: 11-25-2024 Comprehensive metabolic 2000 panel - Serum or Plasma [facility] Comment on above: Expected: 08/26/2024, Expires: Start: 08-26-2024 End: 11-25-2024 Hemoglobin A1c in Blood [facility] [facility] Comment on above: Expected: 08/26/2024, Expires: Start: 08-26-2024 End: 11-25-2024 Thyrotropin [Units/volume] in Serum or Plasma [facility] Comment on above: Expected: 08/26/2024, Expires: Start: 08-19-2024 BP Controlled (<130/80) BP Controlled (<130/80) [facility] Start: 08-17-2024 End: 08-17-2024 ambulatory 08/17/2024 8:00 AM EST [facility] [address] [id number] Elena Dior MD [address] [place] [address] virtual 6 month f/u lab results Allergy Comment on above: virtual 6 month f/u lab results Start: 08-10-2024 End: 11-09-2024 IgA [Mass/volume] in Serum or Plasma IMMUNOGLOBULIN A Lab Routine Hypogammaglobulinemia (HCC) Expected: 08/10/2024 (Approximate), Expires: 11/09/2024 [facility] Comment on above: Expected: 08/10/2024 (Approximate), Expi res: 11/09/2024 Start: 08-10-2024 End: 11-09-2024 IgG [Mass/volume] in Serum or Plasma IMMUNOGLOBULIN G Lab Routine Hypogammaglobulinemia (HCC) Expected: 08/10/2024 (Approximate), Expires: 11/09/2024 [facility] Work Phone: Comment on above: Expected: 08/10/2024 (Approximate), Expi res: 11/09/2024 Start: 08-10-2024 End: 11-09-2024 IgM [Mass/volume] in Serum or Plasma IMMUNOGLOBULIN M Lab Routine Hypogammaglobulinemia (HCC) Expected: 08/10/2024 (Approximate), Expires: 11/09/2024 [facility] Comment on above: Expected: 08/10/2024 (Approximate), Expi res: 11/09/2024 Start: 08-10-2024 End: 08-10-2024 ambulatory [facility] Comment on above: lab Start: 08-05-2024 End: 08-05-2024 Patient encounter procedure 08/05/2024 3:00 PM EST Office Visit Neurology [address] [place], [place] [id number] Taylor Pierce, LABEL TACKER.CAKE ICER [address] [place] [address] issues with cpap, DME is [facility] Comment on above: issues with cpap, DME is [facility] Start: 07-29-2024 End: 07-29-2024 Patient encounter procedure 07/29/2024 10:30 AM EST Office Visit Pulmonary Medicine [address] [place], [place] [id number] Shabana Ramos MD [address] [facility] [place] [address] 5 months f/u Pulmonary Medicine Comment on above: 5 months f/u Start: 07-29-2024 End: 07-29-2024 ambulatory PULM LAB [facility] Comment on above: Severe persistent asthma without complic ation [J45.50] Start: 07-06-2024 Advance Directive Discussion Advance Directive Discussion [facility] Start: 05-16-2024 End: 08-15-2024 Microorganism identified in Unspecified specimen by Culture AFB CULT + STAIN Microbiology Routine Bronchiectasis without complication (HCC) Expected: 05/16/2024, Expires: 08/15/2024 [facility] Work Phone: Comment on above: Expected: 05/16/2024, Expires: 5 Start: 04-22-2024 End: 07-22-2024 Bacteria identified in Unspecified specimen by Respiratory culture RESPIRATORY CULTURE AND STAIN Microbiology Routine Bronchitis Expected: 04/22/2024, Expires: 07/22/2024 [facility] Work Phone: Comment on above: Expected: 04/22/2024, Expires: 5 Start: 04-22-2024 End: 07-22-2024 Microorganism identified in Unspecified specimen by Culture AFB CULT + STAIN Microbiology Routine Bronchitis Expected: 04/22/2024, Expires: 07/22/2024 [facility] Comment on above: Expected: 04/22/2024, Expires: Start: 04-13-2024 End: 04-13-2024 Patient encounter procedure 04/13/2024 3:30 PM EDT Office Visit Pulmonary Medicine [address] [place] [address] Brenda Chaparro APRN.CAKE ICER [address] [facility] [address] [place] [address] ER follow up Pulmonary Medicine Comment on above: ER follow up Start: 03-16-2024 End: 03-16-2024 ambulatory 03/16/2024 8:00 AM EDT [facility] [address] [address] Elena Dior MD [address] [place] [address] virtual 6 month f/u lab results Allergy Comment on above: virtual 6 month f/u lab results Start: 03-06-2024 Covid-19 Vaccine () Covid-19 Vaccine () [facility] Start: 03-06-2024 Covid-19 Vaccine (7 - 2024-25 season) Covid-19 Vaccine ( season) [facility] Start: 03-06-2024 Influenza vaccination Influenza Vaccine (#1) [facility] Start: 02-25-2024 End: 02-25-2024 Patient encounter procedure 02/25/2024 10:30 AM EDT Office Visit Pulmonary Medicine [address] [place], [place] [phone] Shabana Ramos MD [address] [facility] [address] [place], [place] [phone] 6 month follow up Pulmonary Medicine Comment on above: 6 month follow up Start: 02-17-2024 End: 02-17-2024 ambulatory 02/17/2024 12:45 PM EDT [facility] [address] [address] Elena Dior MD [address] [place] [address] virtual 6 month f/u lab results Allergy Comment on above: virtual 6 month f/u lab results Start: 02-04-2024 End: 05-05-2024 IgA [Mass/volume] in Serum or Plasma IGA BLD Lab Routine Hypogammaglobulinemia (HCC) Expected: 02/04/2024 (Approximate), Expires: 05/05/2024 [facility] Work Phone: Comment on above: Expected: 02/04/2024 (Approximate), Expi res: 05/05/2024 Start: 02-04-2024 End: 05-05-2024 IgG [Mass/volume] in Serum or Plasma IGG Lab Routine Hypogammaglobulinemia (HCC) Expected: 02/04/2024 (Approximate), Expires: 05/05/2024 [facility] Work Phone: Comment on above: Expected: 02/04/2024 (Approximate), Expi res: 05/05/2024 Start: 02-04-2024 End: 05-05-2024 IgM [Mass/volume] in Serum or Plasma IGM Lab Routine Hypogammaglobulinemia (HCC) Expected: 02/04/2024 (Approximate), Expires: 05/05/2024 [facility] Work Phone: Comment on above: Expected: 02/04/2024 (Approximate), Expi res: 05/05/2024 Start: 02-04-2024 End: 02-04-2024 ambulatory 02/04/2024 1:00 PM EDT Results Only [place] [facility] Draw Station [address] [facility] [place] [address] [place] [facility] Start: 09-16-2023 Covid-19 Vaccine () Covid-19 Vaccine () [facility] Start: 07-06-2023 Advance Directive Discussion Advance Directive Discussion [facility] Start: 07-06-2023 Behavioral Health Screening Behavioral Health Screening [facility] Start: 07-06-2023 Depression Assessment Depression Assessment [facility] Start: 06-04-2023 End: 09-03-2023 PNEUMOCOCCAL IGG ABS, 23 SEROTYPES PNEUMOCOCCAL IGG ABS, 23 SEROTYPES Lab Routine Hypogammaglobulinemia (HCC) Expected: 06/04/2023 (Approximate), Expires: 09/03/2023 [facility] Work Phone: Comment on above: Expected: 06/04/2023 (Approximate), Expi res: 09/03/2023 Start: 03-31-2023 End: 05-31-2023 [facility] [employer] ALGN [employer]HAL[employer] Lab Routine Severe persistent asthma without complication Expected: 03/31/2023, Expires: 05/31/2023 [facility] Work Phone: Comment on above: Expected: 03/31/2023, Expires: Start: 03-31-2023 End: 05-31-2023 Clostridium tetani IgG Ab [Units/volume] in Serum by Immunoassay TETANUS ANTIBODY IGG Lab Routine Hypogammaglobulinemia (HCC) Expected: 03/31/2023, Expires: 05/31/2023 [facility] Work Phone: Comment on above: Expected: 03/31/2023, Expires: 3 Start: 03-31-2023 End: 05-31-2023 DIPHTHERIA IGG ABS DIPHTHERIA IGG ABS Lab Routine Hypogammaglobulinemia (HCC) Expected: 03/31/2023, Expires: 05/31/2023 [facility] Work Phone: Comment on above: Expected: 03/31/2023, Expires: 3 Start: 03-31-2023 End: 05-31-2023 house dust mite IgE Ab [Units/volume] in Serum ALGN DERM PTERONYSSINUS IGE Lab Routine Severe persistent asthma without complication Expected: 03/31/2023, Expires: 05/31/2023 [facility] Work Phone: Comment on above: Expected: 03/31/2023, Expires: 3 Start: 03-31-2023 End: 05-31-2023 PNEUMOCOCCAL IGG ABS, 23 SEROTYPES PNEUMOCOCCAL IGG ABS, 23 SEROTYPES Lab Routine Hypogammaglobulinemia (HCC) Expected: 03/31/2023, Expires: 05/31/2023 [facility] Work Phone: Comment on above: Expected: 03/31/2023, Expires: Start: 03-06-2023 Covid-19 Vaccine (24 season) Covid-19 Vaccine ( season) [facility] Start: 03-06-2023 Influenza vaccination [facility] Start: 02-19-2023 End: 04-21-2023 Microorganism identified in Unspecified specimen by Culture AFB CULT + STAIN Microbiology Routine Bronchiectasis without complication (HCC) Expected: 02/19/2023, Expires: 04/21/2023 [facility] Work Phone: Comment on above: Expected: 02/19/2023, Expires: 3 Start: 02-13-2023 Lipid 1996 panel - Serum or Plasma Lipid Screening [facility] Start: 02-13-2023 Lipid panel Lipid Screening [facility] Start: 02-13-2023 LIPID SCREEN LIPID SCREEN [facility] Start: 02-12-2023 End: 04-14-2023 IgE [Units/volume] in Serum or Plasma [facility] Work Phone: Comment on above: Expected: 02/12/2023, Expires: 3 Start: 01-16-2023 End: 03-18-2023 Microorganism identified in Unspecified specimen by Culture AFB CULT + STAIN Microbiology Routine Severe persistent asthma with acute exacerbation Expected: 01/16/2023, Expires: 03/18/2023 [facility] Work Phone: Comment on above: Expected: 01/16/2023, Expires: 3 Start: 01-14-2023 Patient discharge [facility] Start: 01-12-2023 Inhalation therapy procedure [facility] Start: 01-11-2023 Investigation of transfusion reaction Gram Stain [facility] Start: 01-11-2023 Respiratory Culture Respiratory Culture [facility] Start: 01-11-2023 Following clinical pathway protocol [facility] Start: 01-11-2023 Assessment of risk of venous thromboembolism [facility] Start: 01-11-2023 Care planning and problem solving actions [facility] Start: 01-11-2023 Insertion of catheter into peripheral vein [facility] Start: 01-11-2023 Oxygen therapy [facility] Start: 01-11-2023 Physiotherapy of chest [facility] Start: 01-11-2023 Providing care according to standard [facility] Start: 01-11-2023 Provision of activity privileges [facility] Start: 01-11-2023 [facility] Start: 01-11-2023 Verification routine [facility] Start: 01-11-2023 Admission procedure [facility] Start: 09-24-2022 Patient referral to dietitian [facility] Start: 09-19-2022 COVID-19 VACCINE (6 - Pfizer series) COVID-19 VACCINE (6 - Pfizer series) [facility] Start: 08-27-2022 Patient referral to dietitian [facility] Start: 08-25-2022 Patient referral [facility] Work Phone: Start: 08-17-2022 Electrocardiographic procedure [facility] Start: 08-16-2022 Electrocardiographic procedure [facility] Start: 08-15-2022 Electrocardiographic procedure [facility] Start: 08-15-2022 Patient discharge [facility] Start: 08-15-2022 Complete blood count [facility] Start: 08-15-2022 [facility] Start: 08-14-2022 Patient referral [facility] Work Phone: Start: 08-14-2022 Following clinical pathway protocol [facility] Start: 08-14-2022 Cardiac monitoring [facility] Start: 08-14-2022 Cardiac rehabilitation - phase 1 [facility] Start: 08-14-2022 Cardiac rehabilitation - phase 2 [facility] Start: 08-14-2022 Notification of physician [facility] Start: 08-14-2022 Oxygen therapy [facility] Start: 08-14-2022 Patient discharge [facility] Start: 08-14-2022 Patient education [facility] Start: 08-14-2022 Provision of activity privileges [facility] Start: 08-14-2022 Pulse taking [facility] Start: 08-14-2022 Systemic arterial pressure monitoring [facility] Start: 08-14-2022 Taking patient vital signs [facility] Start: 08-14-2022 Vascular disease risk assessment [facility] Start: 08-14-2022 Vital signs measurements [facility] Start: 08-14-2022 Wound care [facility] Start: 08-14-2022 End: 08-14-2022 [facility] Start: 08-14-2022 Admission procedure [facility] Start: 08-14-2022 Assessment of risk of venous thromboembolism [facility] Start: 08-14-2022 Insertion of catheter into peripheral vein [facility] Start: 08-14-2022 Measuring intake and output [facility] Start: 08-14-2022 Providing care according to standard [facility] Start: 08-14-2022 Verification routine [facility] Start: 08-14-2022 Inhalation therapy procedure [facility] Start: 07-06-2022 ADVANCE DIRECTIVE DISCUSSION ADVANCE DIRECTIVE DISCUSSION [facility] Start: 07-06-2022 DEPRESSION ASSESSMENT DEPRESSION ASSESSMENT [facility] Start: 10-16-2021 DIABETES SCREEN DIABETES SCREEN [facility] Start: 10-16-2021 Diabetes Screening Diabetes Screening [facility] Start: 05-29-2020 Pneumococcal Vaccine: 65+ (3 - PPSV23 or PCV20) Pneumococcal Vaccine: 65+ (3 - PPSV23 or PCV20) [facility] Start: 05-29-2020 PNEUMOCOCCAL: 65+ (3 - PPSV23 or PCV20) PNEUMOCOCCAL: 65+ (3 - PPSV23 or PCV20) [facility] Start: 10-17-2019 ANNUAL PCP TEAM CHRONIC DISEASE VISIT ANNUAL PCP TEAM CHRONIC DISEASE VISIT [facility] Start: 07-27-2019 Urine microalbumin profile [facility] Start: 05-06-2017 Medicare Annual Wellness Visit Medicare Annual Wellness Visit [facility] Start: 06-05-2015 FECAL OCCULT BLOOD FECAL OCCULT BLOOD [facility] Start: 06-05-2015 Screening for malignant neoplasm of colon Fecal Occult Blood [facility] Start: 12-15-2014 SHINGRIX VACCINE (2 of 3) SHINGRIX VACCINE (2 of 3) [facility] Start: 2011 RSV Vaccine (1 - 1-dose 60+ series) RSV Vaccine (1 - 1-dose 60+ series) [facility] Start: 11-21-1996 COLOGUARD (FIT-DNA) COLOGUARD (FIT-DNA) [facility] Start: 11-21-[address] COLONOGRAPHY [facility] Start: 11-21-1996 Screening for malignant neoplasm of colon [facility] Start: 11-21-1996 SIGMOIDOSCOPY SIGMOIDOSCOPY [facility] Start: 11-21-1969 Annual PCP Team Chronic Disease Visit Annual PCP Team Chronic Disease Visit [facility] Start: 11-21-1969 Anxiety Screening Anxiety Screening [facility] Start: 11-21-1969 BP CONTROLLED (<130/80) BP CONTROLLED (<130/80) [facility] Start: 11-21-1969 Depression Screening Depression Screening [facility] Alanine aminotransfe rase [Enzymatic activity/volume] in Serum or Plasma [facility] Albumin [Mass/volume ] in Serum or Plasma [facility] Alkaline phosphatase [Enzymatic activity/volume] in Serum or Plasma [facility] Anion gap measurement [facility] Aspartate aminotrans ferase [Enzymatic activity/volume] in Serum or Plasma [facility] Bacteria identified in Sputum by Culture [facility] Work Phone: Bacteria identified in Sputum by Culture [facility] Bacteria identified in Sputum by Respiratory culture [facility] Bilirubin, total measurement [facility] BUN/Creatinine ratio [facility] Calcium [Mass/volume ] in Serum or Plasma [facility] Carbon dioxide, tota l [Moles/volume] in Serum or Plasma [facility] Chloride [Moles/volu me] in Serum or Plasma [facility] Clostridium tetani I gG Ab [Units/volume] in Serum by Immunoassay TETANUS ANTIBODY IGG Lab Routine Hypogammaglobulinemia ([facility]) 04/01/2023 10:54 AM EDT [facility] Work Phone: COVID & INFLUENZA A/ B & RSV PCR, ROUTINE COVID & INFLUENZA A/B & RSV PCR, ROUTINE Microbiology Routine At increased risk of exposure to COVID-19 virus Other coronavirus as the cause of diseases classified elsewhere Ordered: 04/03/2024 [facility] Work Phone: Comment on above: Ordered: 04/03/2024 Creatinine [Moles/vo lume] in Serum or Plasma [facility] CT Chest WO contrast [facility] End: 02-15-2024 Ct thorax w/o contrast material CT CHEST WO IVCON Radiology Routine Recurrent pneumonia 1 Occurrences starting 01/16/2023 until 02/15/2024 [facility] Work Phone: Comment on above: 1 Occurrences starting 01/16/2023 until 02/15/2024 DIPHTHERIA IGG ABS DIPHTHERIA IG G ABS Lab Routine Hypogammaglobulinemia ([facility]) 04/01/2023 10:54 AM EDT [facility] Work Phone: Glucose [Mass/volume ] in Serum or Plasma [facility] Hematocrit [Volume Fraction] of Blood [facility] Hemoglobin [Mass/vol ume] in Blood [facility] IgA [Mass/volume] in Serum or Plasma [facility] IgG [Mass/volume] in Serum or Plasma [facility] IgM [Mass/volume] in Serum or Plasma [facility] Leukocytes [#/volume ] in Blood [facility] Lipid 1995 panel - S lesly or Plasma [facility] Lipid 1995 panel - S lesly or Plasma [facility] Mean corpuscular hemoglobin concentration determination [facility] Mean corpuscular hemoglobin determination [facility] Measurement of renal function [facility] Measurement of respi ratory function [facility] Work Phone: End: 10-30-2025 MR Thigh - left WO and W contrast IV MRI UPPER LEG WO/W IVCON LEFT Radiology Routine Lipoma of left thigh Intramuscular lipoma 1 Occurrences starting 09/30/2024 until 10/30/2025 [facility] Comment on above: 1 Occurrences starting 09/30/2024 until 10/30/2025 End: 04-15-2025 NITRIC OXIDE, EXHALED NITRIC OXIDE, EXHALED PFT Routine Severe persistent asthma without complication 1 Occurrences starting 03/16/2024 until 04/15/2025 [facility] Comment on above: 1 Occurrences starting 03/16/2024 until 04/15/2025 OXIMETRY - NOCTURNAL OXIMETRY - NOCTURNAL Procedures Routine Severe persistent asthma without complication Bronchiectasis without complication (HCC) CARMELLA (obstructive sleep apnea) Ordered: 05/18/2023 [facility] Work Phone: Comment on above: Ordered: 05/18/2023 Patient Education [facility] Work Phone: Patient referral [facility] Work Phone: Platelets [#/volume] in Blood [facility] PNEUMOCOCCAL IGG ABS , 23 SEROTYPES PNEUMOCOCCAL IGG ABS, 23 SEROTYPES Lab Routine Hypogammaglobulinemia ([facility]) 04/01/2023 10:54 AM EDT [facility] Work Phone: PNEUMOCOCCAL IGG ABS , 23 SEROTYPES PNEUMOCOCCAL IGG ABS, 23 SEROTYPES Lab Routine Hypogammaglobulinemia ([facility]) 04/22/2023 1:53 PM EDT [facility] Work Phone: Potassium [Moles/vol ume] in Serum or Plasma [facility] Red blood cell count [facility] Red cell distributio n width determination [facility] Sodium [Moles/volume ] in Serum or Plasma [facility] End: 04-15-2025 SPIROMETRY - BASELINE AND POST DILATOR SPIROMETRY - BASELINE AND POST DILATOR PFT Routine Severe persistent asthma without complication 1 Occurrences starting 03/16/2024 until 04/15/2025 [facility] Work Phone: Comment on above: 1 Occurrences starting 03/16/2024 until 04/15/2025 SPIROMETRY WITH DILA TOR IF OBSTRUCTED SPIROMETRY WITH DILATOR IF OBSTRUCTED PFT Routine Asthma, unspecified asthma severity, unspecified whether complicated, unspecified whether persistent 01/16/2023 8:31 AM EDT [facility] Work Phone: Total protein measurement [facility] Urea nitrogen [Mass/volume] in Serum or Plasma [facility] Heart [facility] US.doppler Scrotum a nd testicle US SCROTUM AND CONTENTS Radiology Routine Blood blister Scrotal swelling Blister of scrotum without infection, initial encounter 12/28/2024 9:08 AM EDT [facility] End: 12-28-2024 US.doppler Unspecified body region [facility] Work Phone: Comment on above: ONCE for 1 Occurrences starting 12/29/19 until 12/28/2024 End: 10-29-2025 XR Femur - left AP and Lateral XR FEMUR GENERAL 2V AP/LAT LEFT Radiology Routine 1 Occurrences starting 09/29/2024 until 10/29/2025 [facility] Work Phone: Comment on above: 1 Occurrences starting 09/29/2024 until 10/29/2025 XR Femur - left AP a nd Lateral XR FEMUR GENERAL 2V AP/LAT LEFT Radiology Routine 10/03/2024 10:25 AM EDT [facility] End: 10-30-2025 XR Lumbar spine 3 Views XR LUMBAR GENERAL 3V AP/LAT/L5-S1 Radiology Routine Degeneration of intervertebral disc of lumbar region, unspecified whether pain present 1 Occurrences starting 09/30/2024 until 10/30/2025 [facility] Comment on above: 1 Occurrences starting 09/30/2024 until 10/30/2025 XR Lumbar spine 3 Views XR LUMBA R GENERAL 3V AP/LAT/L5-S1 Radiology Routine Degeneration of intervertebral disc of lumbar region, unspecified whether pain present 10/03/2024 10:26 AM EDT [facility] Work Phone: [facility] Immun[facility] Immunization Date Immunization Notes Care Provider Irena gomez 04-29-2024 influenza virus vacc ine, unspecified formulation Brenda Chaparro APRN.CNP Work Phone: [facility] 06-01-2023 respiratory syncytia l virus (RSV) vaccine, adjuvanted (AREXVY) Barbara Martins PA-C Work Phone: [facility] Work Phone: 05-18-2023 influenza virus vacc ine, unspecified formulation Barbara Martins PA-C Work Phone: [facility] Work Phone: 05-06-2023 pneumococcal (PCV20) vaccine, 20 valent (PREVNAR 20) Nurse Work Phone: [facility] 05-06-2023 pneumococcal Conjuga te, unspecified formulation Nurse Work Phone: [facility] Work Phone: 04-22-2022 influenza, injectabl e, quadrivalent, preservative free Dr. Art Ureña Work Phone: [facility] 04-22-2022 influenza, seasonal, injectable Dr. Fabio Theodore Work Phone: [facility] 04-22-2022 influenza virus vacc ine, unspecified formulation Shabana Ramos MD Work Phone: [facility] 11-23-2021 Covid (Pfizer) Dr. Justin Massey Work Phone: [facility] 07-04-2021 pneumococcal polysaccharide vaccine, [address] Justin Massey Work Phone: [facility] 07-04-2021 pneumococcal vaccine , unspecified formulation Dr. Justin Massey Work Phone: [facility] Work Phone: 04-23-2020 influenza, injectabl e, quadrivalent, preservative free Dr. Art Ureña Work Phone: [facility] 04-23-2020 influenza, seasonal, injectable Dr. Justin Massey Work Phone: [facility] 04-23-2020 Fluad Quad [id number](65yr up)(PF) 60 mcg (15 mcg x 4)/0.5mL IM syringe (flu vac Dr. Justin Massey Work Phone: [facility] Work Phone: 05-07-2018 influenza, high dose seasonal, preservative-free Pulm [facility]str Work Phone: [facility] [place] 04-21-2017 pneumococcal conjuga te vaccine, [address] Justin Massey Work Phone: [facility] 04-13-2017 influenza, high dose seasonal, preservative-free Pulm Wstr Work Phone: [facility] 04-13-2017 pneumococcal conjuga te vaccine, 13 valent Pulm Wstr Work Phone: [facility] 03-22-2016 influenza, injectabl e, quadrivalent, contains preservative Pulm Wstr Work Phone: [facility] 05-29-2015 pneumococcal polysaccharide vaccine, 23 valent Pulm Wstr Work Phone: [facility] 04-14-2015 influenza, injectabl e, quadrivalent, contains preservative Pulm Wstr Work Phone: [facility] Work Phone: 04-14-2015 influenza, seasonal, injectable Pulm Wstr Work Phone: [facility] 10-20-2014 zoster vaccine, live Pulm Ws tr Work Phone: [facility] 05-13-2014 influenza, seasonal, injectable Pulm Wstr Work Phone: [facility] 04-01-2013 influenza virus vacc ine, unspecified formulation Pulm Wstr Work Phone: [facility] Work Phone: 06-23-2012 influenza virus vacc ine, unspecified formulation Pulm Wstr Work Phone: [facility] 06-07-2011 influenza virus vacc ine, unspecified formulation Pulm Wstr Work Phone: [facility] 05-27-2010 influenza virus vacc ine, unspecified formulation Pulm Wstr Work Phone: [facility] 07-27-2009 tetanus toxoid, redu day diphtheria toxoid, and acellular pertussis vaccine, adsorbed Pulm Wstr Work Phone: [facility] Work Phone: 04-16-2009 influenza virus vacc ine, unspecified formulation Pulm Wstr Work Phone: [facility] Work Phone: Payers Date Payer Category Payer Self-pay [id number] 2018 [facility] [place] IN DICARE SUPPLEMENT Member Subscriber Plan / Payer (Effective 2018-Present) Name: Joaquin Hendricks Relation to Subscriber: Self Name: Joaquin Hendricks Payer ID: [id number] (NAIC) Group ID: [id number] Type: Indemnity Address: [address] [place] [id number] 2018 Unknown ANTHEM ANTHELVIS ME DICARE SUPPLEMENT [id number] 2018-Present [phone] [address] [place] [address] Indemnity [id number] 2018 Unknown [id number] 2017 Medicare [id number] 2017 Medicare [id number] Unknown [id number]. 2.462 Unknown [id number] 2.16.840.1.729914.3.579. 2.462 Unknown [id number] 2.16.840.1.208814.3.579. 2.462 Unknown [id number] 2.16.840.1.628406.3.579. 2.462 Unknown [id number] 2.16.840.1.354387.3.579. 2.462 Unknown [id number] 2.16.840.1.365472.3.579. 2.462 Unknown [id number] 2.16.840.1.189400.3.579. 2.462 Unknown [id number] 2.16.840.1.813514.3.579. 2.462 Unknown [id number] 2.16.840.1.323161.3.579. 2.462 Unknown [id number] 2.16.840.1.288246.3.579. 2.462 Unknown [id number] 2.16.840.1.930027.3.579. 2.462 Unknown [id number] 2.16.840.1.461505.3.579. 2.462 Unknown [id number] 2.16.840.1.934717.3.579. 2.462 Unknown [id number] 2.16.840.1.483977.3.579. 2.462 Unknown [id number] 2.16.840.1.387509.3.579. 2.462 Unknown [id number] 2.16.840.1.528313.3.579. 2.462 Unknown [id number] 2.16.840.1.317647.3.579. 2.462 Unknown [id number] 2.16.840.1.668193.3.579. 2.462 Unknown [id number] 2.16.840.1.277344.3.579. 2.462 Unknown [id number] 2.16.840.1.911570.3.579. 2.462 Unknown [id number] 2.16.840.1.006362.3.579. 2.462 Social History Date Type Detail Facility Start: 10-20-2021 End: 10-21-2023 Tobacco smoking status CTIS Unknown if ever smoked [facility] Start: 1950 Sex Assigned At Male [facility] Start: 01-16-2023 Tobacco smoking status CTIS Never smoked tobacco [facility] Start: 01-16-2023 Tobacco use and exposure Smokeless tobacco non-user [facility] Start: 01-16-2023 End: 01-27-2025 Alcohol intake Current drinker of alcohol (finding) [facility] Start: 01-16-2023 End: 08-24-2024 Alcohol intake [facility] Start: 01-16-2023 End: 08-24-2024 Tobacco use panel [facility] Start: 06-06-2012 Adult Depression Screening Assessment 0 [facility] Start: 01-16-2023 Tobacco Comment Parents smoked in childhood home. [facility] Start: 06-21-2021 Gender identity Identifies as male gender (finding) [facility] Start: 06-21-2021 Sexual orientation Heterosexual (finding) [facility] Has the [employer], [employer], or [employer] threatened to shut off services in your home in past 12Mo No [facility] Do you belong to any clubs or organizations such as hindu groups, unions, fraternal or athletic groups, or school groups? Yes [facility] Are you now , , , , never or living with a partner? [facility] How often to you hav e a drink containing alcohol? 2-4 times a month [facility] How many standard dr inks containing alcohol do you have on a typical day? 1 or 2 [facility] How often do you hav e 6 or more drinks on 1 occasion? Never [facility] How hard is it for y ou to pay for the very basics like food, housing, medical care, and heating Not very hard [facility] Do you feel stress - tense, restless, nervous, or anxious, or unable to sleep at night because your mind is troubled all the time - these days [OSQ] Only a little [facility] (I/We) worried lauryn (my/our) food would run out before (I/we) got money to buy more. Never true [facility] Start: 04-09-2024 End: 04-09-2024 Tobacco smoking status NHIS Ex-smoker (finding) [facility] Start: 09-10-2024 Sex Male (finding) [facility] Medical Equipment Procedure Code Equipment Code Equipment Origin al Text Equipment Identifier Dates Cystoscopic insertion of stent ([id number]) Polymeric ureteral stent [id number] FDA Start: 02-09-2024 Drug-eluting coronary artery stent, non-bioabsorbable- polymer-coated ()[id number]( [id number] FDA Start: 08-14-2022 Goals Date Patient Goal Desired Activity /State Functional Status Date Assessment Result Facility 01-14-2023 Functional status Ambulates [facility] Work Phone: 08-15-2022 Functional status Ambulates;Chair [facility] Work Phone: 08-14-2022 Functional status Activity Abili ty Standby Assist [facility] Work Phone: 10-20-2014 Are you deaf, or do you have serious difficulty hearing No 10/20/2014 11:07 AM Magui May LPN No [facility] 10-20-2014 Are you blind, or do you have serious difficulty seeing, even when wearing glasses No 10/20/2014 11:07 AM Magui May LPN No [facility] 10-20-2014 Do you have serious difficulty walking or climbing stairs No 10/20/2014 11:07 AM Magui May LPN No [facility] 10-20-2014 Do you have difficul ty dressing or bathing No 10/20/2014 11:07 AM Magui May LPN No [facility] 10-20-2014 Because of a physica l, mental, or emotional condition, do you have difficulty doing errands alone such as visiting a physician's office or shopping No 10/20/2014 11:07 AM Magui May LPN No [facility] Mental Status Date Assessment Result Facility 04-21-2025 Cognitive function Voice/Name [facility] Work Phone: 03-24-2025 Cognitive function Awake [facility] Work Phone: 02-24-2025 Cognitive function Awake;Alert;A ppropriate;Fol lows Commands [facility] Work Phone: 01-27-2025 Cognitive function Level Of Cons ciousness Awake;Alert;Appropriate;Fol lows Commands [facility] Work Phone: 12-30-2024 Cognitive function Awake;Alert;A ppropriate;Fol lows Commands [facility] Work Phone: 12-02-2024 Cognitive function Awake;Alert;A ppropriate;Fol lows Commands [facility] Work Phone: 11-04-2024 Cognitive function Voice/Name [facility] Work Phone: 10-07-2024 Cognitive function Voice/Name [facility] Work Phone: 09-09-2024 Cognitive function Awake;Alert;A ppropriate;Fol lows Commands [facility] Work Phone: 07-15-2024 Cognitive function Voice/Name [facility] Work Phone: 06-17-2024 Cognitive function Awake;Alert;A ppropriate;Fol lows Commands [facility] Work Phone: 05-20-2024 [facility]: 11-04-2023 Cognitive function Voice/Name [facility] Work Phone: 10-07-2023 Cognitive function Voice/Name [facility] Work Phone: 09-09-2023 Cognitive function Awake;Alert;A ppropriate;Fol lows Commands [facility] Work Phone: 08-10-2023 Cognitive function Voice/Name [facility] Work Phone: 07-13-2023 Cognitive function Level Of Cons ciousness Awake;Alert;Appropriate;Fol lows Commands [facility] Work Phone: 06-15-2023 Cognitive function Awake;Alert;Appropriat e [facility] Work Phone: 05-15-2023 Cognitive function Awake;Alert;A ppropriate;Fol lows Commands [facility] Work Phone: 04-17-2023 Cognitive function Voice/Name [facility] Work Phone: 03-20-2023 Cognitive function Voice/Name [facility] Work Phone: 02-23-2023 Cognitive function Voice/Name [facility] Work Phone: 01-23-2023 Cognitive function Voice/Name [place] [facility] Work Phone: 01-14-2023 Cognitive function Voice/Name [facility] Work Phone: 12-26-2022 Cognitive function Voice/Name [facility] Work Phone: 11-28-2022 Cognitive function Voice/Name [place] [facility] Work Phone: 10-31-2022 Cognitive function Voice/Name [place] [facility] Work Phone: 10-06-2022 Cognitive function Voice/Name [facility] Work Phone: 09-05-2022 Cognitive function Voice/Name [facility] Work Phone: 08-15-2022 Cognitive function Voice/Name [facility] Work Phone: 08-14-2022 Cognitive function Voice/Name [facility] Work Phone: 08-08-2022 Cognitive function Voice/Name [facility] Work Phone: 06-09-2022 Cognitive function Voice/Name [facility] Work Phone: 05-09-2022 Cognitive function Level Of Cons ciousness Awake;Alert;Appropriate;Fol lows Commands [facility] Work Phone: 04-11-2022 Cognitive function Awake;Alert;A ppropriate;Fol lows Commands [facility] Work Phone: 03-12-2022 Cognitive function Voice/Name [facility] Work Phone: 02-10-2022 Cognitive function Level Of Cons ciousness Awake;Alert;Appropriate;Fol lows Commands [facility] Work Phone: 11-15-2021 Cognitive function Voice/Name [facility] Work Phone: 10-16-2021 Cognitive function Awake;Alert;A ppropriate;Fol lows Commands [facility] Work Phone: 09-13-2021 Cognitive function Awake;Alert;A ppropriate;Fol lows Commands [facility] Work Phone: 08-16-2021 Cognitive function Awake;Alert;A ppropriate;Fol lows Commands [facility] Work Phone: 07-19-2021 Cognitive function Voice/Name [facility] Work Phone: 10-20-2014 Because of a physica l, mental, or emotional condition, do you have serious difficulty concentrating, remembering, or making decisions No 10/20/2014 11:07 AM EDT Magui Celis LPN No [facility] Clinical Notes 02-13-2013 to 04-02-2025 Elena Dior MD - 03/20/2025 8:00 AM EDTPatient InstructionsDb Fowler PA-C - 02/12/2025 12:26 PM EDTTelephone Encounter - Mara Rubin MA - 02/03/2025 10:12 AM EDTPatient Instructions Note Date & Type Note Facility 04-02-2025 Note HNO ID: [id number] Author: SPENCER VILLATORO APRN.CAKE ICER Service: ? Author Type: Nurse Practitioner Type: [...] - Onset last night. - Describes a bump on both eyes, with soreness upon palpation. - Denies foreign body sensation. - No visual changes; describes vision as crappy bilaterally. - Suspects a stye due to [...] HISTORY OF [address] ARRINGTON PAST SURGICAL HISTORY OF eye stents for [...] azelastine HCl (ASTEPRO ALLERGY NASAL) Use 1 Dixon in the nose as needed. guaiFENesin (MUCINEX) [...] C (CULTURELLE PROBIOTIC-PREBIOTIC ORAL) Take by mouth. mv-mn/C/glutamin/lysin/jeqi713 (AIRBORNE, ASCORBATE SODIUM, ORAL) Take by mouth. [...] Right eye: Normal extraocular motion and no nystagmu (more content not included)... 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 Either the patient or their legal utility sales representative has been informed of the risks and benefits of -- and alternatives to -- treatment through a remote evaluation and consents to proceed with the evaluation remotely. Joaquin Hendricks is a 74 year old male with [...] record or via U.S. mail. Joaquin Hendricks is a 72 year old male with [...] and postnasal drip. Skin test completed by [facility] in 2020, he had 1+ results [...] azelastine HCl (ASTEPRO ALLERGY NASAL) Use 1 Dixon in the nose as needed. guaiFENesin (MUCINEX) [...] C (CULTURELLE PROBIOTIC-PREBIOTIC ORAL) Take by mouth. mv-mn/C/glutamin/lysin/sasq803 (AIRBORNE, ASCORBATE SODIUM, ORAL) Take by mouth. [...] HISTORY OF [address] ARRINGTON PAST SURGICAL HISTORY OF eye stents for [...] air Basement: Damp basement, Carpeted, Furnished Shweta: Ibuh-bo-gyrv carpeting, Hardwood floor Dust mite controls: Dust [...] RESPIRATORY: breathing non-labored NEUROLOGIC: no obvious deficit documented in this encounter [facility] 03-20-2025 Note HNO ID: [id number] Author: ELENA DIOR MD Service: ? Author [...] visit. Either the patient or their legal utility sales representative has been informed of the risks and benefits of -- and alternatives to -- treatment through a remote evaluation and consents to proceed with the evaluation remotely. Joaquin Hendricks is a 74 year old male with [...] feels that he is back to his baselin (more content not included)... [facility] 02-12-2025 Instructions Db Fowler PA-C - 02/12/2025 12:30 PM EDT We discussed the swelling and redness on [...] contact our office or seek medical attention. documented in this encounter [facility] 02-12-2025 Note HNO ID: [id number] Author: DB FOWLER PA-C Service: ? Author Type: Physician Motorized Squad Lieutenant Type: Progress Notes Filed: 02/12/2025 12:32 Note Text: [facility] CLINIC NOTE Wale Floyd, [address] [facility] [address] Hilton Hendricks is a 74-year-old male presenting [...] HISTORY OF [address] ARRINGTON PAST SURGICAL HISTORY OF eye stents for [...] dermatology appointment scheduled for tomorrow. 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 Patient/authorized utility sales representative agreed to proceed. DERECK Chu, PA-C MDM [1] Current Outpatient Medications Medication [...] day noted on 08/26/24 Gabby Holiday, MA CPAP/BIPAP/OTHER CPAP 16 [facility] azelastine HCl (ASTEPRO ALLERGY NASAL) Use 1 Dixon in the nose as needed. guaiFENesin (MUCINEX) [...] C (CULTURELLE PROBIOTIC-PREBIOTIC ORAL) Take by mouth. mv-mn/C/glutamin/lysin/czet516 (AIRBORNE, ASCORBATE SODIUM, ORAL) Take by mouth. fluticasone-salmeterol HFA (ADVAIR HFA) 230-21 mcg/actuation inhaler Inhale 2 Puffs as instructed twice daily. francois (more content not included)... [facility] 02-12-2025 History of Present illness Narrative Images from the original note were not included. [facility] NOTE Wale [place], [place] [address] [facility] [address] Hiltno Hendricks is a 74-year-old male presenting with [...] HISTORY OF [address] ARRINGTON PAST SURGICAL HISTORY OF eye stents for glaucoma PAST SURGICAL HISTORY OF UPPP PAST SURGICAL HISTORY OF Deviated septum REMV CATARACT EXTRACAP,INSERT LENS SOCIAL HISTORY[3] Physical Exam: BP 140/84 Pulse 88 Temp 36.9 C (98.5 F) Resp 20 Wt (!) 138.3 kg (304 lb 14.3 oz) SpO2 95% BMI 43.75 kg/m General appearance: Well appearing, alert, in no [...] dermatology appointment scheduled for tomorrow. 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 Patient/authorized utility sales representative agreed to proceed. DERECK Chu, PA-C MDM [1] Current Outpatient Medications Medication [...] azelastine HCl (ASTEPRO ALLERGY NASAL) Use 1 Dixon in the nose as needed. guaiFENesin (MUCINEX) [...] C (CULTURELLE PROBIOTIC-PREBIOTIC ORAL) Take by mouth. mv-mn/C/glutamin/lysin/udva540 (AIRBORNE, ASCORBATE SODIUM, ORAL) Take by mouth. [...] Topics Alcohol use: Yes Drug use: No documented in this encounter [facility] 02-03-2025 Telephone encounter Note Patient phones requesting refills as follows: Requested Prescriptions Pending Prescriptions Disp Refills fluticasone (FLONASE ALLERGY RELIEF) 50 mcg/actuation nasal spray 3 each 1 Sig: Use 1 spray in each nostril once daily. Please review and advise. Mara Rubin MA [facility] 02-03-2025 Miscellaneous Notes Patient phones requesting refills as follows: Requested Prescriptions Pending Prescriptions Disp Refills fluticasone (FLONASE ALLERGY RELIEF) 50 mcg/actuation nasal spray 3 each 1 Sig: Use 1 spray in each nostril once daily. Please review and advise. Mara Rubin MA documented in this encounter [facility] 01-27-2025 Instructions Brenda Chaparro APRN.CNP - 01/27/2025 9:37 AM EDT We discussed your asthma and current symptoms: [...] any concerns or changes in your symptoms. documented in this encounter [facility] 01-27-2025 History of Present illness Narrative Images from the original note were not included. Pulmonary Medicine Patients name: Joaquin Canela PCP: Wale Floyd DO Recording using Katango software for draft documentation of the visit was discussed with the patient/authorized utility sales representative; all questions welcomed and answered. Patient/authorized utility sales representative agreed to proceed CC: Asthma follow-up HPI: [...] concern. PAST MEDICAL HISTORY Diagnosis Date Asthma (HCC) [...] 0.89 -20 FIVC (L) 4.40 4.50 2 [id number] (L/sec) 3.25 0.96 2.28 4.17 142 3.28 [...] (302 lb) SpO2 (P) 96% BMI 43.33 kg/m Physical Exam Vitals reviewed. Constitutional: General: He [...] is alert. 1. Asthma, moderate persistent, well-controlled ([facility]) (J45.40) - currently with well controlled symptoms. [...] which included preparing to see the patient, ocds-se-vinx patient care, completing clinical documentation, performing a medically appropriate examination, and counseling and educating the patient/family/caregiver. documented in this encounter [facility] 01-27-2025 Note HNO ID: [id number] Author: BRENDA CHAPARRO APRN.CNP Service: ? Author Type: Nurse Practitioner Type: Progress Notes Filed: 01/27/2025 11:41 Note Text: Pulmonary Medicine Patients name: Joaquin Canela PCP: Wale Floyd DO Recording using Katango software for draft documentation of the visit was discussed with the patient/authorized utility sales representative; all questions welcomed and answered. Patient/authorized utility sales representative agreed to proceed CC: Asthma follow-up HPI: [...] concern. PAST MEDICAL HISTORY Diagnosis Date Asthma ([facility]) 11/21/201411/2014: DARIEL +, 20% drop in FEV1 [...] 0.89 -20 FIVC (L) 4.40 4.50 2 [id number] (L/sec) 3.25 0.96 2.2 (more content not included)... [facility] 12-28-2024 Note HNO ID: [id number] Author: LILA SUAZO RDMS Service: ? Author Type: Pot Liner Type: Progress Notes Filed: 12/29/2024 11:54 Note [...] PATIENT PRESENTS WITH AN IMPLANTABLE OR ATTACHED CORE MACHINE TENDER: No RADIOLOGY DEPARTMENT: Ultrasound PERIPHERAL IV DATA: Not applicable SIGNED BY: Lila Suazo RDMS RVT December 29, 2024 11:53 AM [facility] 12-23-2024 Note HNO ID: [id number] Author: CELENA POLANCO APRN.CAKE ICER Service: ? Author Type: Nurse Practitioner Type: [...] further evaluation and management. and Recording using Katango software for draft documentation of the visit was discussed with the patient/authorized utility sales representative; all questions welcomed and answered. Patient/authorized utility sales representative agreed to proceed HISTORY OF PRESENT ILLNESS: [...] HISTORY OF [address] ARRINGTON PAST SURGICAL HISTORY OF eye stents for [...] RELIEF) 50 mcg/actuation nasal spray Use 1 Dixon in each nostril once daily. CPAP/BIPAP/OTHER CPAP 16 D[facility] azelastine HCl (ASTEPRO ALLERGY NASAL) Use 1 Dixon in the nose as needed. guaiFENesin (MUCINEX) [...] C (CULTURELLE PROBIOTIC-PREBIOTIC ORAL) Take by mouth. mv-mn/C/glutamin/lysin/cfbt046 (AIRBORNE, ASCORBATE SODIUM, ORAL) Take by mouth. fluticasone-salmeterol HFA (ADVAIR HFA) 230-21 mcg/actuation inhaler Inhale 2 Puffs as instructed twice daily. tamsulosin (FLOMAX) 0.4 mg Take 0.8 mg by mouth once daily. tiotropium bromide (SPIRIVA RESPIMAT) 1.25 mcg/ (more content not included)... [facility] 12-23-2024 History of Present illness Narrative This is a 74 year old male [...] evaluation and management. and Recording using ambient [employer] software for draft documentation of the visit was discussed with the patient/authorized utility sales representative; all questions welcomed and answered. Patient/authorized utility sales representative agreed to proceed HISTORY OF PRESENT ILLNESS: [...] HISTORY OF [address] ARRINGTON PAST SURGICAL HISTORY OF eye stents for [...] RELIEF) 50 mcg/actuation nasal spray Use 1 Dixon in each nostril once daily. CPAP/BIPAP/OTHER CPAP 16 [facility] [facility] azelastine HCl (ASTEPRO ALLERGY NASAL) Use 1 Dixon in the nose as needed. guaiFENesin (MUCINEX) [...] C (CULTURELLE PROBIOTIC-PREBIOTIC ORAL) Take by mouth. mv-mn/C/glutamin/lysin/rxia600 (AIRBORNE, ASCORBATE SODIUM, ORAL) Take by mouth. [...] lb 12.8 oz) SpO2 97% BMI 43.45 kg/m PHYSICAL EXAM: General Appearance: Well appearing, alert, [...] [place] BLOOD - C-REACTIVE PROTEIN -can use A&D ointment otc to create barrier for the [...] needs one in near future Celena Polanco APRN.WAYNE Medical Decision Making: Problems: Low: Acute, uncomplicated illness or injury Data: Unique test(s) ordered: 3+ Medical Decision Making Level: 3 - Low Recording using Katango software for draft documentation of the visit was discussed with the patient/authorized utility sales representative; all questions welcomed and answered. Patient/authorized utility sales representative agreed to proceed documented in this encounter [facility] 12-20-2024 Telephone encounter Note Script faxed. [facility] 12-20-2024 Miscellaneous Notes Script faxed. PA COMPLETED VIA [employer] MAYES: [id number] [facility] CASE: [id number] DATES: 09-21-24 TO 12-20-25 Patient receives injections at [facility] due to medicare insurance- New script on desk for signature- will fax back once completed. documented in this encounter [facility] 12-20-2024 Telephone encounter Note PA COMPLETED [employer]IA [employer] MAYES: [id number] [facility] CASE: [id number] DATES: 09-21-24 TO 12-20-25 Patient receives injections at [facility] due to medicare insurance- New script on desk for signature- will fax back once completed. [facility] 12-19-2024 Telephone encounter Note Prescription Refill Information The patient has been identified by name and date of : Yes Caregiver verified no other encounters exist for this prescription request: Yes Caregiver confirmed with patient/requestor that no other refills are due, in the near future, with this provider at this time: Yes The last office visit in the department: 08/17/24 Does the patient have a future office visit with this provider/department: No Requested Prescriptions No prescriptions requested or ordered in this encounter Miriam Sánchez LPN December 19, 2024 10:46 AM [facility] 12-19-2024 Miscellaneous Notes Prescription Refill Information The patient has been identified by name and date of : Yes Caregiver verified no other encounters exist for this prescription request: Yes Caregiver confirmed with patient/requestor that no other refills are due, in the near future, with this provider at this time: Yes The last office visit in the department: 08/17/24 Does the patient have a future office visit with this provider/department: No Requested Prescriptions No prescriptions requested or ordered in this encounter Miriam Sánchez LPN December 19, 2024 10:46 AM documented in this encounter [facility] 12-18-2024 Note HNO ID: [id number] Author: TRICIA NUÑEZ APRN.CAKE ICER Service: ? Author Type: Nurse Practitioner Type: Progress Notes Filed: 12/18/2024 13:33 Note Text: [facility] Subjective Joaquin Olson Smart is a 74 year old male. Patient [...] evaluation and management. and Recording using ambient AI software for draft documentation of the visit was discussed with the patient/authorized utility sales representative; all questions welcomed and answered. Patient/authorized utility sales representative agreed to proceed MDM Procedures [facility] 12-18-2024 History of Present illness Narrative [facility] Subjective Joaquin Olson Smart is a 74 year old male. Patient [...] Objective BP 162/82 Pulse 81 Temp 36.8 C (98.3 F) Resp 22 Wt (!) 138 kg (304 lb 3.8 oz) SpO2 96% BMI 43.65 kg/m Physical Exam : Blood blisters on scrotum, [...] evaluation and management. and Recording using ambient AI software for draft documentation of the visit was discussed with the patient/authorized utility sales representative; all questions welcomed and answered. Patient/authorized utility sales representative agreed to proceed MDM Procedures documented in this encounter [facility] 11-10-2024 Evaluation note Diagnosis Onset Date Resolution Essential hypertension chronic November 10, 2024 2:52pm History of coronary artery stent placement August 14, 2022 chronic November 10, 2024 2:52pm Hyperlipidemia chronic November 10 2:52pm [facility] Work Phone: 1(811) 223-369404-28-2025 Telephone encounter Note* Telephone Encounter - Laurence Schroeder LPN - 10/31/2024 1:03 PM EDT Images from the original note were not included. [facility]ricks[facility] My Chart Rx Pool I need refills for Montelukast 10mg 1/day but the list says too early for refill even though last refill was in June 2024. Latrell is true for Lansoprazole 30mg 1/day. Can you please send them to [facility]. Please let me know if this is an issue. [facility] Work Phone: 1(298) 688-277404-28-2025 Miscellaneous Notes* Telephone Encounter - Laurence Schroeder LPN - 10/31/2024 1:03 PM EDT Images from the original note were not included. [facility] Hendricks My Chart Rx Pool I need refills for Montelukast 10mg 1/day but the list says too early for refill even though last refill was in June 2024. Latrell is true for Lansoprazole 30mg 1/day. Can you please send them to [facility]. Please let me know if this is an issue. 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 He would need a follow up with Dr. 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 He would need a follow up with Dr. Gonzalez * Telephone Encounter - Laurence Miles - 10/10/2024 1:40 PM EDT pt returned your call. [phone] documented in this [facility] Telephone encounter Note * Telephone Encounter - JdLaurence - 10/10/2024 1:40 PM EDT pt returned your call. [phone] [facility]04-02-2025 NoteHNO ID: [id number] Author: HARI ADEN MD Service: ? Author [...] time was seen by a surgeon in [place] was told that he needed to lose [...] HISTORY OF [address] ARRINGTON PAST SURGICAL HISTORY OF eye stents for [...] RELIEF) 50 mcg/actuation nasal spray Use 1 Dixon in each nostril once daily. CPAP/BIPAP/OTHER CPAP 16 DME [employer] azelastine HCl (ASTEPRO ALLERGY NASAL) Use 1 Dixon in the nose as needed. guaiFENesin (MUCINEX) [...] C (CULTURELLE PROBIOTIC-PREBIOTIC ORAL) Take by mouth. mv-mn/C/glutamin/lysin/gmiw596 (AIRBORNE, ASCORBATE SODIUM, ORAL) Take by mouth. [...] is oriented to time, place, and person. VIT (more content not included)...[facility]04-02-2025 History of Present illness Narrative* Hari Aden MD - 10/05/2024 12:35 PM EDT HISTORY AND PHYSICAL Joaquin Olson [facility] 1950 REFERRING PHYSICIAN: Fang Mayen APRN* CHIEF [...] HISTORY OF [address] ARRINGTON PAST SURGICAL HISTORY OF eye stents for [...] RELIEF) 50 mcg/actuation nasal spray Use 1 Dixon in each nostril once daily. CPAP/BIPAP/OTHER CPAP 16 DME [employer] azelastine HCl (ASTEPRO ALLERGY NASAL) Use 1 Dixon in the nose as needed. guaiFENesin (MUCINEX) [...] C (CULTURELLE PROBIOTIC-PREBIOTIC ORAL) Take by mouth. mv-mn/C/glutamin/lysin/gfcd612 (AIRBORNE, ASCORBATE SODIUM, ORAL) Take by mouth. [...] Blood pressure 156/76, pulse 80, temperature 36.5 C (97.7 F), temperature source Temporal, weight 135.8 kg (299 lb 6.4 oz). HEENT: Normal cephalic, ataumatic, pupils are equally round, sclera are anicteric, mucous membranesare moist, oropharynx is clear. Neck has no [...] I am going to refer [place] a robotic umbilical hernia repair. Orthopedics [...] me as needed. Hari Aden III, MD documented in this encounter[facility] History of Present illness Narrative* Sanam Ma, RT(R) - 10/05/2024 9:00 AM EDT Radiology Service Progress Note DATE OF SERVICE: [...] PATIENT PRESENTS WITH AN IMPLANTABLE OR ATTACHED CORE MACHINE TENDER: No ALLERGIES: Reviewed and unchanged CONTRAST ALLERGY: NO. EXAM: MRI - CONTRAST TYPE: GROUP II PERIPHERAL IV DATA: Ambulatory: A peripheral IV was started in the Left antecubital site with a Angio cath: 22 gauge. RADIOLOGY DEPARTMENT: MR; Exam(s) Completed: Lower MSK: Femur, left SIGNATURE: RT Amber(Nedra) PATIENT NAME: Joaquin Hendricks DATE: October 05, 2024 TIME: 9:07 AM documented in this encounter[facility]2025 NoteHNO ID: [id number] Author: SANAM MA RT (R) Service: ? Author Type: Technologist Type: Progress [...] PATIENT PRESENTS WITH AN IMPLANTABLE OR ATTACHED CORE MACHINE TENDER: No ALLERGIES: Reviewed and unchanged CONTRAST ALLERGY: NO. EXAM: MRI - CONTRAST TYPE: GROUP II PERIPHERAL IV DATA: Ambulatory: A peripheral IV was started in the Left antecubital site with a Angio cath: 22 gauge. RADIOLOGY DEPARTMENT: MR; Exam(s) Completed: Lower MSK: Femur, left SIGNATURE: RT Amber(R) PATIENT NAME: Joaquin Hendricks DATE: October 05, 2024 TIME: 9:07 [facility]04-01-2025 Telephone encounter Note* Telephone Encounter - Monserrat Ferreira LPN - 10/04/2024 10:57 AM EDT Phoned patient aware rx sent to pharmacy per Nedra Mayen NP and for him not to be driving himself after taking the medication. Patient said his will be driving him. [facility]04-01-2025 Miscellaneous Notes* Telephone Encounter - Monserrat Ferreira LPN - 10/04/2024 10:57 AM EDT Phoned patient aware rx sent to pharmacy per Nedra Mayen NP and for him not to be driving himself after taking the medication. Patient said his will be driving him. * Telephone Encounter - Fang Mayen APRN.CNP - 10/04/2024 7:26 AM EDT The following approved medication requests have been transmitted electronically. Requested Prescriptions Signed Prescriptions Disp Refills ALPRAZolam (XANAX) 0.25 mg tablet 2 tablet 0 Sig: Take 1 tablet by mouth 30 minutes prior to MRI, may repeat in 15-20 minutes if necessary. Authorizing Provider: FANG MAYEN APRN.CNP PDMP website checked and validated. All prescriptions have been APPROPRIATELY filled. No suspiciousactivity was identified. 10/04/2024 by Fang Mayen CNP. * Telephone Encounter - Polly Bourne RN - 10/03/2024 11:08 AM EDT Pt reports he is scheduled for an MRI this week on Thu. Asking if provider could send an Rx to [facility] for him to complete the MRI. Philly Gee. Please advise pt. [phone] documented in this encounter[facility] Telephone encounter Note * Telephone Encounter - Fang Mayen APRN.CNP - 10/04/2024 7:26 AM EDT The following approved medication requests have been transmitted electronically. Requested Prescriptions Signed Prescriptions Disp Refills ALPRAZolam (XANAX) 0.25 mg tablet 2 tablet 0 Sig: Take 1 tablet by mouth 30 minutes prior to MRI, may repeat in 15-20 minutes if necessary. Authorizing Provider: FANG MAYEN APRN.CNP PDMP website checked and validated. All prescriptions have been APPROPRIATELY filled. No suspiciousactivity was identified. 10/04/2024 by Fang Mayen CNP. [facility]03-31-2025 Telephone encounter Note* Telephone Encounter - Polly Bourne RN - 10/03/2024 11:08 AM EDT Pt reports he is scheduled for an MRI this week on Thu. Asking if provider could send an Rx to [facility] for him to complete the MRI. Philly Gee. Please advise pt. [phone] [facility]03-31-2025 History of Present illness Narrative* Edyta Dallas, RT(R) - 10/03/2024 10:00 AM EDT Radiology Service Progress Note PATIENT NAME: Joaquin Hendricks DATE OF SERVICE: October 03, 2024 TIME: 3:37 PM PATIENT IDENTITY VERIFICATION COMPLETED USING TWO (2) IDENTIFIERS: Name and Date of confirmedby patient verbally. FALL SCREENING: Has the patient had 2 falls in the last year or 1 fall with injury or currently using an Ambulatory Assistive Device (Walker, Cane, Wheelchair, Crutches, etc.)? No PATIENT GENDER DATA: Assigned male at PATIENT RELEVANT IMPLANT DATA REVIEWED: Not Applicable PATIENT PRESENTS WITH AN IMPLANTABLE OR ATTACHED CORE MACHINE TENDER: No RADIOLOGY DEPARTMENT: General X-ray: Exam(s) Completed: Spine X-Ray(s): Lumbar AP / LAT / L5-S1 Lower Extremity X-Ray(s): Femur, Left PERIPHERAL IV DATA: Not applicable SIGNED BY: RT Eddie(R) October 03, 2024 3:37 PM documented in this encounterSelect [facility]-2025 NoteHNO ID: [id number] Author: EDYTA DALLAS RT(R) Service: ? Author Type: Technologist Type: [...] PATIENT PRESENTS WITH AN IMPLANTABLE OR ATTACHED CORE MACHINE TENDER: No RADIOLOGY DEPARTMENT: General X-ray: Exam(s) Completed: Spine X-Ray(s): Lumbar AP / LAT / L5-S1 Lower Extremity X-Ray(s): Femur, Left PERIPHERAL IV DATA: Not applicable SIGNED BY: RT Eddie(R) October 03, 2024 3:37 [facility]03-28-2025 NoteHNO ID: [id number] Author: AURELIA HODGE PA-C Service: ? Author Type: Physician Motorized Squad Lieutenant Type: Progress Notes Filed: 09/30/2024 17:27 Note [...] HISTORY OF [address] ARRINGTON PAST SURGICAL HISTORY OF eye stents for [...] RELIEF) 50 mcg/actuation nasal spray Use 1 Dixon in each nostril once daily. CPAP/BIPAP/OTHER CPAP 16 DME [employer] azelastine HCl (ASTEPRO ALLERGY NASAL) Use 1 Dixon in the nose as needed. guaiFENesin (MUCINEX) [...] C (CULTURELLE PROBIOTIC-PREBIOTIC ORAL) Take by mouth. mv-mn/C/glutamin/lysin/jhgq504 (AIRBORNE, ASCORBATE SODIUM, ORAL) Take by mouth. [...] 1.25 mcg/actuation mist Inhale 2 Puffs as instructe (more content not included)...[facility]03-28-2025 History of Present illness Narrative* Aurelia Hodge PA-C - 09/30/2024 5:23 PM EDT Orthopaedic Oncology New Patient Evaluation Chief Complaint: Patient presents with: Left Thigh - New Referring Physician: Hari Aden History of Present Illness: Hliton is a 73-year-old male with a history [...] experienced increasing discomfort, including a constant tingling sensationand burning pain after prolonged standing or walking. [...] HISTORY OF [address] ARRINGTON PAST SURGICAL HISTORY OF eye stents for [...] RELIEF) 50 mcg/actuation nasal spray Use 1 Dixon in each nostril once daily. CPAP/BIPAP/OTHER CPAP 16 DME [employer] azelastine HCl (ASTEPRO ALLERGY NASAL) Use 1 Dixon in the nose as needed. guaiFENesin (MUCINEX) [...] C (CULTURELLE PROBIOTIC-PREBIOTIC ORAL) Take by mouth. mv-mn/C/glutamin/lysin/jlth575 (AIRBORNE, ASCORBATE SODIUM, ORAL) Take by mouth. [...] Drug use: No Physical Examination: Ht 5' 10 (1.78m) Wt 299 lb 13.2 oz (136.0kg) BMI 43.02 kg/(m^2). General: alert, oriented, no acute distress HEENT: [...] discoloration of the skin in the area ofmass Normal gait No pain with ROM hip [...] mass in the distal left vastus lateralis, a6.5 cm oval mass in the adductor muscle, and a 3 cm mass in the right leg. The lipomas have been present for approximately 2 years, with increasing discomfort and tingling sensations, particularly atnight. No significant change in size reported by [...] for any degenerative changes that may be contributingto symptoms. These recommendations are being sent back to Hari Aden via [employer] [employer] or Chart CC for [facility] Providers. Aurelia Hodge PA-C documented in this encounterSelect [facility]03-28-2025 Instructions* Patient Instructions* Aurelia Hodge PA-C - 09/30/2024 2:19 PM EDT We discussed the masses in your legs: - You have two intramuscular lipomas (benign fatty masses) in your left leg and one in your right leg, as noted in your previous MRI report. These masses may be contributing to the tingling, burning,and discomfort you are experiencing, particularly in your [...] Unfortunately, there is no effective way to numb the area or the nerves causing your [...] Once we have the imaging results, we willreview them together and discuss the best course of action. - In the meantime, you may continue using wqao-pbz-hsjswdy treatments like Voltaren cream or Tylenol PM for temporary relief, as you have been doing. If your symptoms worsen or you have any new concerns, please contact our office. documented in this encounter[facility]-2025 Telephone encounter Note * Telephone Encounter - Deborah Montgomery LPN - 09/22/2024 2:14 PM EDT Prescription Refill Information The patient has been identified by name and date of : Yes Caregiver verified no other encounters exist for this prescription request: Yes Caregiver confirmed with patient/requestor that no other refills are due, in the near future, with this provider at this time: Yes The last office visit in the department: 08/26/24 Does the patient have a future office visit with this provider/department: No Requested Prescriptions Pending Prescriptions Disp Refills rosuvastatin (CRESTOR) 5 mg tablet [Pharmacy Med Name: ROSUVASTATIN CALCIUM 5MG TABS] Sig: TAKE 0.5 TAB BY MOUTH EVERY 48 HOURS Deborah Montgomery LPN September 22, 2024 2:15 PM [facility]03-20-2025 Miscellaneous Notes* Telephone Encounter - Deborah Montgomery LPN - 09/22/2024 2:14 PM EDT Prescription Refill Information The patient has been identified by name and date of : Yes Caregiver verified no other encounters exist for this prescription request: Yes Caregiver confirmed with patient/requestor that no other refills are due, in the near future, with this provider at this time: Yes The last office visit in the department: 08/26/24 Does the patient have a future office visit with this provider/department: No Requested Prescriptions Pending Prescriptions Disp Refills rosuvastatin (CRESTOR) 5 mg tablet [Pharmacy Med Name: ROSUVASTATIN CALCIUM 5MG TABS] Sig: TAKE 0.5 TAB BY MOUTH EVERY 48 HOURS Deborah Montgomery LPN September 22, 2024 2:15 PM documented in this encounterSelect [facility]03-17-2025 Telephone encounter Note * Telephone Encounter - Tere Valencia MA - 09/19/2024 11:01 AM EDT These medications have not been refilled since 2019. Asked pt how he has been taking these medications? Tere Valencia MA [facility]03-17-2025 Miscellaneous Notes* Telephone Encounter - Tere Valencia MA - 09/19/2024 11:01 AM EDT These medications have not been refilled since 2019. Asked pt how he has been taking these medications? Tere Valencia MA documented in this encounterSelect [facility]-2025 NoteHNO ID: [id number] Author: FANG MAYEN APRN.CAKE ICER Service: ? Author Type: Nurse Practitioner Type: Progress Notes Filed: 08/26/2024 14:35 Note Text: Chief Complaint Patient presents with: Establish Care HPI Joaquin Hendricks is a 73 year old male who presents here today for Above Complaints.. Dr. Ramos and Dr. Dior manages asthma. States this is well-managed GERD - managed well with prevacid Glaucoma - Sees eye doctor regularly at [facility] with Dr. Salazar. Gout- well under control, [...] and hearing-aid tests Hyperlipidemia - diet is not great. States he consumes a lot of calories. [...] HISTORY OF [address] ARRINGTON PAST SURGICAL HISTORY OF eye stents for [...] RELIEF) 50 mcg/actuation nasal spray Use 1 Dixon in each nostril once daily. CPAP/BIPAP/OTHER CPAP 16 DME [employer] azelastine HCl (ASTEPRO ALLERGY NASAL) Use 1 Dixon in the nose as needed. guaiFENesin (MUCINEX) [...] C (CULTURELLE PROBIOTIC-PREBIOTIC ORAL) Take by mouth. mv-mn/C/glutamin/lysin/czts112 (AIRBORNE, ASCORBATE SODIUM, ORAL) Take by mouth. [...] mg tablet Take 0.5 tablets by mouth (more content not included)...[facility]02-21-2025 History of Present illness Narrative* Fang Mayen APRN.CAKE ICER - 08/26/2024 11:05 AM EST Chief Complaint Patient presents with: Establish Care HPI Joaquin Hendricks is a 73 year old male who presents here today for Above Complaints.. Dr. Ramos and Dr. Dior manages asthma. States this is well-managed GERD - managed well with prevacid Glaucoma - Sees eye doctor regularly at [facility] with Dr. Salazar. Gout- well under control, [...] and hearing-aid tests Hyperlipidemia - diet is not great. States he consumes a lot of calories. [...] HISTORY OF [address] ARRINGTON PAST SURGICAL HISTORY OF eye stents for [...] RELIEF) 50 mcg/actuation nasal spray Use 1 Dixon in each nostril once daily. CPAP/BIPAP/OTHER CPAP 16 DME [employer] azelastine HCl (ASTEPRO ALLERGY NASAL) Use 1 Dixon in the nose as needed. guaiFENesin (MUCINEX) [...] C (CULTURELLE PROBIOTIC-PREBIOTIC ORAL) Take by mouth. mv-mn/C/glutamin/lysin/gcyw792 (AIRBORNE, ASCORBATE SODIUM, ORAL) Take by mouth. [...] every other day noted on 08/26/24 Gabby SmithPilger, MA) THERAPEUTIC MULTIVITAMIN TAB Take one(1) tablet [...] lb 12.8 oz) SpO2 99% BMI 43.95 kg/m General Appearance: Well appearing, alert, in no [...] 10/16/2021 Advance Directive Discussion Never done Covid-19 Vaccine( season) due on 10/28/2024 Annual PCP Team Chronic [...] of the patient and have reviewed the MARIA L noteand I agree. Other additions or changes: As edited Signature: Fang Mayen Date: 08/26/2024 Time: 2:34 PM documented in this encounterSelect [facility] History of Present illness Narrative* Elena Dior MD - 08/17/2024 8:00 AM EST ASSESSMENT/PLAN: -Hypogammaglobulinemia Suspect secondary to treatment with [...] licensure. The patient's identity and physical location wereverified at the time of this visit. Either the patient or their legal utility sales representative has been informed of the risks and benefits of -- and alternatives to -- treatment through a remote evaluation andconsents to proceed with the evaluation remotely. Joaquin Hendricks is a 73 year old male with a history of nonallergic rhinitis, severe persistentasthma, hypogammaglobulinemia and bronchiectasis who presents for a follow-up visit. His last visitwas 03/16/2024. In April, he experienced a 1 week history of productive cough. 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 Patient was treated with doxycycline with significant improvement in his symptoms. Dr. Ramos recommended a repeat sputum culture, however, patient has been unable to provide this as cough hasresolved. No other infections requiring treatment with antibiotics [...] symptoms since beginning treatment with [facility]. He istolerating this medication without adverse reaction. He continues to follow-up with Dr. Ramos in pulmonary medicine. Per patient, daily use of azithromycin was discontinued at his last visit with Dr. Ramos on . Overall nasal symptoms have been well-controlled (From [...] to the requesting healthcare provider(s) [facility] or via U.[place]. mail. Joaquin Hendricks is a 72 year old male with [...] for pneumonia and treated with Solu-Medrol, azithromycin andceftriaxone. He took azithromycin daily for about 1 [...] cutaneous infections including cellulitis, shingles and abscesses. Deniesgastrointestinal infections. There is no family history of [...] and postnasal drip. Skin test completed by [facility] in 2020, he had 1+ results [...] C (CULTURELLE PROBIOTIC-PREBIOTIC ORAL) Take by mouth. mv-mn/C/glutamin/lysin/znty222 (AIRBORNE, ASCORBATE SODIUM, ORAL) Take by mouth. [...] HISTORY OF [address] ARRINGTON PAST SURGICAL HISTORY OF eye stents for glaucoma PAST SURGICAL HISTORY OF UPPP PAST SURGICAL HISTORY OF Deviated septum REMV CATARACT EXTRACAP,INSERT LENS FAMILY HISTORY: Allergic rhinitis:no. Asthma: no. Eczema: no. Cystic fibrosis: no. Immunodeficiency: no. 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 ENVIRONMENTAL HISTORY: Lives in a house Age of home: 6 years Heating: gas Woodburning fireplace in the home: no Air conditioning: Central air Basement: Damp basement, Carpeted, Furnished [place]: [id number] carpeting, Hardwood floor Dust mite controls: Dust [...] RESPIRATORY: breathing non-labored NEUROLOGIC: no obvious deficit * Constanza Upton RN - 08/17/2024 7:59 AM EST Patient having virtual visit for follow up. Reports coughing spell back in April needing antibiotic but no steroids needed. Asthma well controlled. Tezspire well controlled. Last needing Albuterol in April. Only using Claritin as needed, same with nasal sprays but does use Flonase daily. documented in this encounter[facility]25 NoteHNO ID: [id number] Author: ELENA DIOR MD Service: ? Author [...] visit. Either the patient or their legal utility sales representative has been informed of the risks and benefits of -- and alternatives to -- treatment through a remote evaluation and consents to proceed with the evaluation remotely. Joaquin Hendricks is a 73 year old [...] record or via U.S. mail. Joaquin Hendricks is a 72 year old male with a history of severe persistent asthma, recurrent pneumonia and mild bronchiectasis who presents for further evaluation of hypogammaglobulinemia On February 12, 2023, IgG was below normal at 565. IgA, IgM and IgE were within normal limits. On August 15, 2022, IgG was 620. In 2020, IgG was 703. Patient received the P (more content not included)...[facility] 08-17-2024 NoteHNO ID: [id number] Author: CONSTANZA UPTON, RN Service: ? Author Type: Registered Nurse Type: Progress Notes Filed: 08/17/2024 21:30 Note Text: Patient having virtual visit for follow up. Reports coughing spell back in April needing antibiotic but no steroids needed. Asthma well controlled. Tezspire well controlled. Last needing Albuterol in April. Only using Claritin as needed, same with nasal sprays but does use Flonase daily.[facility]01[facility] History of Present illness Narrative* Taylor Pierce APRN.CAKE ICER - 08/05/2024 3:00 PM EST Images from the original note were not included. [facility] New Patient Evaluation PATIENT NAME: Joaquin Hendricks DATE OF SERVICE: August 04, 2024 CONSULTING PROVIDER: No referring provider defined for this encounter. REASON FOR VISIT: CARMELLA HPI: Joaquin Hendricks is a 73 year old male. Sleep-related history: CARMELLA, needs to establish with a new sleep provider. Used to be followed at [facility] pul for asthma and CARMELLA but now sees Pulm Dr Ramos here at . DME [employer] CPAP for years, no issues with [...] 11 am to 4 pm. 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 [...] day are sorted in reverse-chronological order 07/29/2024 [place] Sleepiness Scale Score 10 (No clinically significant daytime sleepiness) 07/29/2024 PROMIS CAT Sleep Disturbance PROMIS Sleep Disturbance T-Score 54 (within normal limits) PROMIS Sleep Disturbance Percentile 34 07/29/2024 PHQ-9 Score 4 07/22/2024 PROMIS Global Health - (T-Scores - the mean of general population = 50. Five points is a clinicallymeaningful difference.) Physical T-Score 47.7 Mental T-Score 48.3 [...] HISTORY OF [address] ARRINGTON PAST SURGICAL HISTORY OF eye stents for [...] C (CULTURELLE PROBIOTIC-PREBIOTIC ORAL) Take by mouth. mv-mn/C/glutamin/lysin/ytmm964 (AIRBORNE, ASCORBATE SODIUM, ORAL) Take by mouth. [...] lb 6.4 oz) SpO2 94% BMI 43.89 kg/m PHYSICAL EXAM: General appearance: pleasant, NAD Mental [...] Luci has seen Dr Carvalho) Taylor Pierce APRN.CNP documented in this encounterSelect [facility]-31-2025 NoteHNO ID: [id number] Author: TAYLOR PIERCE APRN.CNP Service: ? Author Type: Nurse Practitioner Type: Progress Notes Filed: 08/05/2024 15:55 Note Text: [facility] New Patient Evaluation PATIENT NAME: Joaquin Hendricks DATE OF SERVICE: August 04, 2024 CONSULTING PROVIDER: No referring provider defined for this encounter. REASON FOR VISIT: CARMELLA HPI: Joaquin Hendricks is a 73 year old male. Sleep-related history: CARMELLA, needs to establish with a new sleep provider. Used to be followed at [facility] for asthma and CARMELLA but now sees [...] 11 am to 4 pm. 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 [...] day are sorted in reverse-chronological order 07/29/2024 [place] Sleepiness Scale Score 10 (No clinically significant [...] HISTORY OF [address] ARRINGTON PAST SURGICAL HISTORY OF eye stents for glaucoma PAST SURGICAL HISTORY OF UPPP PAST SURGICAL HISTORY OF Deviated septum REMV CATARACT EXTRACAP,INSERT LENS ACTIVE PROBLEM LIST Hypertension Pes Planus Insomnia Gout Recurrent Kidney Stones Ddd (Degenerativ (more content not included)...[facility] 07-29-[facility] Instructions* Patient Instructions* Shabana Ramos MD - 07/29/2024 10:53 AM EST Stop azithromycin documented in this encounterSelect [facility]01-24-2025 History of Present illness Narrative* Shabana Ramos MD - 07/29/2024 10:30 AM EST Images from the original note were not included. . Respiratory [place] Note Patient name: Joaquin Hendricks PCP: Art [...] sputum sample even with sputum induction at [facility]. Presents today for follow up. Recent [...] C (CULTURELLE PROBIOTIC-PREBIOTIC ORAL) Take by mouth. mv-mn/C/glutamin/lysin/hfyk364 (AIRBORNE, ASCORBATE SODIUM, ORAL) Take by mouth. [...] HISTORY OF [address] ARRINGTON PAST SURGICAL HISTORY OF eye stents for [...] 132/82 Pulse 87 Resp 13 Ht 5' 9.25 (1.76m) Wt 303 lb (137.4kg) SpO2 98% BMI 44.42 kg/(m^2). General Appearance: Obese male, NAD. Skin: Skin [...] continue with high-dose Advair, Tezspire, albuterol as neededand Spiriva -Discontinue azithromycin 2. Abnormal sputum -Aspergillus [...] control of asthma Shabana Ramos MD [facility] [place] documented in this encounterSelect [facility]01-24-2025 NoteHNO ID: [id number] Author: SHABANA RAMOS MD Service: ? Author Type: Physician Type: Progress Notes Filed: 07/29/2024 13:09 Note Text: . Respiratory [place] Note Patient name: Joaquin Hendricks PCP: Art [...] sputum sample even with sputum induction at [facility]. Presents today for follow up. Recent [...] C (CULTURELLE PROBIOTIC-PREBIOTIC ORAL) Take by mouth. mv-mn/C/glutamin/lysin/ulmu346 (AIRBORNE, ASCORBATE SODIUM, ORAL) Take by mouth. [...] 1 tablet by mouth once daily. (Patient taki (more content not included)...[facility]01-24-2025 NoteHNO ID: [id number] Author: REECE BOLANOS RPFT Service: ? Author [...] Hendricks DATE: July 29, 2024 TIME: 9:56 [facility]01-24-2025 Procedure note* Reece Bolanos RPFT - 07/29/2024 9:56 AM ESTAssociated Order(s): NITRIC OXIDE, EXHALED RESPIRATORY THERAPY ORAL EXHALED [...] DATE: July 29, 2024 TIME: 9:56 AM [facility]01-24-2025 Procedure note* Reece Bolanos RPFT - 07/29/2024 9:56 AM ESTAssociated Order(s): NITRIC OXIDE, EXHALED RESPIRATORY THERAPY ORAL EXHALED [...] DATE: July 29, 2024 TIME: 9:56 AM documented in this encounterSelect [facility]01-24-2025 NoteHNO ID: [id number] Author: REECE BOLANOS RPFT Service: ? Author Type: Respiratory Therapist Type: Progress Notes Filed: 07/29/2024 09:57 Note Text: PULM FUNCTION: Provider: Elena Dior MD Assisting Tech: Reece Bolanos RPFT Spirometry w/BD: 1 [facility]haled N[facility]ric [facility] History of Present illness Narrative* Reece Bolanos RPFT - 07/29/2024 9:40 AM EST PULM FUNCTION: Provider: Elena Dior MD Assisting Tech: Reece Bolanos RPFT Spirometry w/BD: 1 Exhaled Nitric Oxide: 1 documented in this encounterSelect Medical [facility]11-18-2024 NoteHNO ID: [id number] Author: SHABANA RAMOS MD Service: ? Author Type: Physician Type: Progress Notes Filed: 05/23/2024 09:13 Note Text: [facility] Induction of sputum for AFB culture 6% saline 4 mL nebulized x 1 With PEP device teaching Albuterol 2.5 mg/3 mL nebulized if needed for bronchospasm Shabana Ramos MD [id number] Regional Medical Center11-18-2024 History of Present illness Narrative* Shabana Ramos MD - 05/23/2024 9:06 AM EST [facility] Induction of sputum for AFB culture 6% saline 4 mL nebulized x 1 With PEP device teaching Albuterol 2.5 mg/3 mL nebulized if needed for bronchospasm Shabana Ramos MD [id number] documented in this encounterSelect Medical [facility]10-11-2024 NoteHNO ID: [id number] Author: BRENDA CHAPARRO APRN.CNP Service: ? Author Type: Nurse Practitioner Type: Progress Notes Filed: 04/15/2024 15:12 Note Text: Called and discussed chest xray and lab results. Patient continues to have cough symptoms that are keeping him up at night. Will treat with course of Doxycycline. Instructed to hold Azithromycin, calcium, preservision and Airborne while taking Doxycycline. Can resume once complete. Brenda Chaparro APRN.CNPFirelands Regional Medical Center10-11-2024 History of Present illness Narrative* Brenda Chaparro APRN.CNP - 04/15/2024 3:06 PM EDT Called and discussed chest xray and lab results. Patient continues to have cough symptoms that are keeping him up at night. Will treat with course of Doxycycline. Instructed to hold Azithromycin, calcium, preservision and Airborne while taking Doxycycline. Can resume once complete. Brenda Chaparro APRN.CNP documented in this encounterSelect Medical [facility]10-09-2024 History of Present illness Narrative* Edyta Dallas, RT(R) - 04/13/2024 4:50 PM EDT Radiology Service Progress Note PATIENT NAME: Joaquin Hendricks DATE OF SERVICE: April 13, 2024 TIME: 4:52 PM PATIENT IDENTITY VERIFICATION COMPLETED USING TWO (2) IDENTIFIERS: Name and Date of confirmedby patient verbally. FALL SCREENING: Has the patient had 2 falls in the last year or 1 fall with injury or currently using an Ambulatory Assistive Device (Walker, Cane, Wheelchair, Crutches, etc.)? No PATIENT GENDER DATA: Male PATIENT RELEVANT IMPLANT DATA REVIEWED: Not Applicable PATIENT PRESENTS WITH AN IMPLANTABLE OR ATTACHED CORE MACHINE TENDER: No RADIOLOGY DEPARTMENT: General X-ray: Exam(s) Completed: Chest X-Ray PERIPHERAL IV DATA: Not applicable SIGNED BY: RT Eddie(R) April 13, 2024 4:52 PM documented in this encounterSelect Medical [facility]10-09-2024 NoteHNO ID: [id number] Author: EDYTA DALLAS RT(Nedra) Service: ? Author Type: Technologist Type: [...] PATIENT PRESENTS WITH AN IMPLANTABLE OR ATTACHED CORE MACHINE TENDER: No RADIOLOGY DEPARTMENT: General X-ray: Exam(s) Completed: Chest X-Ray PERIPHERAL IV DATA: Not applicable SIGNED BY: RT Eddie(R) April 13, 2024 4:52 [facility]10-09-2024 Instructions* Patient Instructions* Brenda Chaparro APRN.CNP - 04/13/2024 4:14 PM EDT Chest xray and labs today. Continue Prednisone given to you in the ED. Pending results of xray and labs, will consider additional antibiotics. Continue pulmonary hygiene as you've been doing along with Mucinex. Prednisone taper if you develop symptoms again. documented in this encounterSelect Medical [facility]10-09-2024 History of Present illness Narrative* Brenda Chaparro APRN.CNP - 04/13/2024 3:30 PM EDT Images from the original note were not included. Pulmonary Medicine Patients name: Joaquin Hendricks PCP: Art Ureña MD CC: asthma/ED follow-up HPI: Joaquin Hendricks is a 73 year old male never smoker with PMH significant for morbid obesity, asthma (positive DARIEL), CARMELLA on CPAP, HTN, HLD, CAD s/p stent, low IgG without immunodeficiency, bronchialwall thickening without evidence of bronchiectasis on last chest CT. Current therapy consists of Advair, Tezspire (receiving at [facility] infusion center due to insurance reasons), daily azithromycin and albuterol as needed. He was seen by Dr. Ramos on 02/25/24 and was stepped down on therapy d/t stability in symptoms. Spiriva was stopped at that time with a plan to taper down on Azithromycin if he was doing well. He developed a sore throat 04/03 and was seen at [facility] a few days later with negative for [...] and clear/yellowish. No hemoptysis. No wheezing. Dyspnea notoverly bothersome with exertion. No fevers, chills, or night sweats. Albuterol is currently twice aday along with Mucinex. PAST MEDICAL HISTORY Diagnosis [...] kg (299 lb) SpO2 95% BMI 43.84 kg/m Physical Exam Vitals reviewed. Constitutional: General: He [...] which included preparing to see the patient, [id number] patient care, completing clinical documentation, performing a medically appropriate examination, counseling and educating the patient/family/caregiver, and ordering medications, tests,or procedures. documented in this encounterSelect Medical [facility]10-09-2024 NoteHNO ID: [id number] Author: BRENDA CHAPARRO APRN.CNP Service: ? Author Type: Nurse Practitioner Type: [...] therapy consists of Advair, Tezspire (receiving at [facility] infusion center due to insurance reasons), daily azithromycin and albuterol as needed. He was seen by Dr. Ramos on 02/25/24 and was stepped down on therapy d/t stability in symptoms. Spiriva was stopped at that time with a plan to taper down on Azithromycin if he was doing well. He developed a sore throat 04/03 and was seen at [facility] a few days later with negative for [...] change, appetite change, fatigue and unexpected weight (more content not included)...[facility] 04-12-2024 Telephone encounter Note* Telephone Encounter - Constanza Upton RN - 04/12/2024 9:58 AM EDT LVM for patient [facility]10-08-2024 Miscellaneous Notes* Telephone Encounter - Constanza Upton RN - 04/12/2024 9:58 AM EDT LVM for patient * Telephone Encounter - Elena Dior MD - 04/11/2024 1:04 PM EDT New orders placed for approx date of 08/10/24, Elena Dior MD * Telephone Encounter - Constanza Upton RN - 04/11/2024 12:16 PM EDT Please advise. MOIRA 03/16/24 next FU 08/17/24 * Telephone Encounter - Barbara Mtz - 04/11/2024 10:08 AM EDT Pt scheduled lab visit before 08/17/24 visit. Labs have 09/13/24 date on them and unable to link to appointment. Lab orders need due date adjusted or new orders placed. Please let pt know if appointments are too soon and it is the appointment needing adjusted. documented in this encounterSelect [facility]10-07-2024 Telephone encounter Note * Telephone Encounter - Elena Dior MD - 04/11/2024 1:04 PM EDT New orders placed for approx date of 08/10/24, Elena Dior MD [facility]10-07-2024 Telephone encounter Note* Telephone Encounter - Constanza Upton RN - 04/11/2024 12:16 PM EDT Please advise. MOIRA 03/16/24 next FU 08/17/24 [facility]-2024 Telephone encounter Note* Telephone Encounter - Barbara Mtz - 04/11/2024 10:08 AM EDT Pt scheduled lab visit before 08/17/24 visit. Labs have 09/13/24 date on them and unable to link to appointment. Lab orders need due date adjusted or new orders placed. Please let pt know if appointments are too soon and it is the appointment needing adjusted. [facility] Work Phone: [phone] 878-443410-07-2024 Telephone encounter Note* Telephone Encounter - Mara Rubin MA - 04/11/2024 9:45 AM EDT Pt returned call. Is not able to come in tomorrow. Scheduled Thursday with SENIOR TEST ENGINEER. Mara Rubin MA [facility]10-07-2024 Miscellaneous Notes* Telephone Encounter - Mara Rubin MA - 04/11/2024 9:45 AM EDT Pt returned call. Is not able to come in tomorrow. Scheduled Thursday with SENIOR TEST ENGINEER. Mara Rubin MA * Telephone Encounter - Emma Traylor LPN - 04/11/2024 8:24 AM EDT Left message for patient to call. Can schedule with Brenda tomorrow. Emma Traylor LPN documented in this encounterSelect Medical [facility]10-07-2024 Telephone encounter Note * Telephone Encounter - Emma Traylor LPN - 04/11/2024 8:24 AM EDT Left message for patient to call. Can schedule with Brenda tomorrow. Emma Traylor LPN [facility]09-29-2024 History of Present illness Narrative* Tricia Nuñez, LABEL TACKER.CAKE ICER - 04/03/2024 1:38 PM EDT CC: Patient presents with: Sore Throat: X 2 days HPI: Joaquin Hendricks is a 73 year old male who presents to the office with complaint of sore throat for a few days. Symptoms are improving Associated symptoms includes sore throat and post nasal drip. Denies body aches, fever, nausea, vomiting , and diarrhea. Treatments tried include nothing so far. with no relief of symptoms. Sick contacts: unknown. History of asthma, frequent episodes of bronchitis, chronic bronchitis, bronchiectasis or COPD: No Smoker: No Seasonal/environmental allergies: No The ROS is otherwise negative. The patient's pmh, medications, allergies, and past visits are reviewed. PHYSICAL EXAM: BP 120/60 Pulse 120 Temp 37.1 C (98.8 F) Resp 18 Wt (!) 138 kg (304 lb 3.8 oz) SpO2 96% BMI 44.60 kg/m General appearance: alert, cooperative, pleasant, in no acute distress Head: Normocephalic Eyes: EOM's intact, conjunctiva pink and moist, no icterus, sclera white, non-injected Ears: Right ear: External ear/canal- Normal, TM - clear with good landmarks. Left ear: External ear/canal- Normal, TM - clear with good landmarks Oropharynx:mild erythema, without exudates present Heart: Negative. RRR without obvious murmur, gallop, or rubs. No ectopy. Lungs: clear to auscultation, without rales or wheeze, good air exchange PAST MEDICAL HISTORY Diagnosis Date Asthma 11/21/201411/2014: [...] HISTORY OF [address] ARRINGTON PAST SURGICAL HISTORY OF eye stents for glaucoma PAST SURGICAL HISTORY OF UPPP PAST SURGICAL HISTORY OF Deviated septum REMV CATARACT EXTRACAP,INSERT LENS ALLERGIES Lisinopril and Simvastatin MEDICATIONS calcium carbonate (CALCIUM 500 ORAL) Take by mouth. vit A/vit C/vit E/zinc/copper (PRESERVISION AREDS ORAL) Take by mouth. B.coagul,subtilis/inulin/vit C (CULTURELLE PROBIOTIC-PREBIOTIC ORAL) Take by mouth. mv-mn/C/glutamin/lysin/ktpo256 (AIRBORNE, ASCORBATE SODIUM, ORAL) Take by mouth. azithromycin (ZITHROMAX) 250 mg tablet Take one [...] Take 0.4 mg by mouth once daily. azelastine-fluticasone 137-50 mcg/spray spry Use in each nostril once daily. Uses astepro spray ipratropium bromide (ATROVENT) 42 mcg (0.06 %) [...] THERAPEUTIC MULTIVITAMIN TAB Take one(1) tablet daily. albuterol HFA (PROAIR HFA) 90 mcg/actuation inhaler Inhale 2 Puffs as instructed every 6 hours as needed for wheezing/shortness of breath. (Patient not taking: Reported on 03/16/2024) tiotropium bromide (SPIRIVA RESPIMAT) 1.25 mcg/actuation mist Inhale 2 Puffs as instructed once daily. (Patient not taking: Reported on 03/16/2024) aspirin, enteric coated (ECOTRIN LOW STRENGTH) 81 mg EC tablet Take 1 tablet by mouth once daily. (Patient taking differently: Take 81 mg by mouth every other day in the morning.) FAMILY HISTORY Problem Relation Age of Onset Cancer Father bone marrow Social History Tobacco Use Smoking status: Never Smokeless tobacco: Never Tobacco comments: Parents smoked in childhood home. Substance Use Topics Alcohol use: Yes Drug use: No ASSESSMENT/PLAN: 1. Sore throat - ICD9: 462, ICD10: J02.9 (primary diagnosis) - STREP A MOLECULAR (POC)-ne\g 2. At increased risk of exposure to COVID-19 virus - ICD9: V15.89, ICD10: Z91.89 - COVID & INFLUENZA A/B & RSV PCR, ROUTINE 3. Other coronavirus as the cause of diseases classified elsewhere - ICD9: 079.89, ICD10: B97.29 - COVID & INFLUENZA A/B & RSV PCR, ROUTINE Requested a covid test . Potential red flag symptoms discussed with the patient. Reviewed appropriate action plan to take if red flag symptoms occur. Patient agreeable to treatment plan. Tricia Nuñez APRN.WAYNE documented in this encounterSelect Medical [facility]09-11-2024 Nurse Note* Simona Schafer RN - 03/16/2024 8:00 AM EDT F/u visit . Breathing is good with no issues. Using the asstepro nasal spray with the fluticasone nasal spray. Pt not using albuterol and nebulizer. Has not have to use it in over a year. [facility]09-11-2024 History of Present illness Narrative* Elena Dior MD - 03/16/2024 8:00 AM EDT ASSESSMENT/PLAN: 1.) Hypogammaglobulinemia Suspect secondary to treatment with systemic corticosteroids IgG level remains below normal but stable at 572. IgA and IgM remain within normal limits. Clinically, patient has been doing well without significant infections since his last visit. Recommend repeat IgG, IgA and IgM in [...] serotypes and >2x increase to 1 serotype.) 2.) Severe persistent asthma with significant clinical improvement since beginning treatment with Tezspire Co-managed with pulmonary medicine Continue Tezspire, Advair 230-21, and Singulair 10 mg Continue Albuterol 2 puffs every 4 hours as needed. Spirometry and FeNO will be obtained 3.) Bronchiectasis: Continue management as recommended by pulmonary 4.) Nonallergic rhinitis: Continue regular use of fluticasone nasal spray and azelastine nasal spray. Continue ipratropium nasal spray 0.06% 1-2 sprays each nostril 3 times a day as needed for rhinorrhea Continue OTC antihistamine such as loratadine as needed 4.) Discussed medication dosage, usage, side effects, and goals of treatment in detail. 5.) Follow-up in 6 months with repeat IgG, IgA and IgM.- patient will return sooner should new symptoms or problems arise. Elena Dior MD Allergy and Clinical Immunology VIRTUAL VISIT PROGRESS NOTE This is a virtual visit. It required patient-provider interaction for the medical decision making as documented below. I have communicated my name and active licensure. The patient's identity and physical location wereverified at the time of this visit. Either the patient or their legal utility sales representative has been informed of the risks and benefits of -- and alternatives to -- treatment through a remote evaluation andconsents to proceed with the evaluation remotely. Joaquin Hendricks is a 73 year old male with a history of nonallergic rhinitis, severe persistentasthma, hypogammaglobulinemia and bronchiectasis who presents for a follow-up visit. His last visitwas August 06, 2023. He has been doing well without significant infections since his last visit. Last significant pulmonary infection was in January,. Asthma symptoms have been well controlled since last visit. Denies cough, wheezing, chest tightness and shortness of breath. Denies nocturnal awakenings due to respiratory symptoms. Denies use of CELENA Denies treatment with systemic corticosteroids, ER visits or hospitalizations for respiratory symptoms He attributes his improvement in his respiratory symptoms to treatment with Tezspire. He continues to follow-up with Dr. Ramos in pulmonary medicine. They are stepping down his asthma therapy. Spiriva was recently discontinued. Per patient, daily use of azithromycin will be discontinued in about 1 month. Overall nasal symptoms have been well-controlled (From [...] to the requesting healthcare provider(s) by way ofshared medical record or via U.S. mail. Joaquin Hendricks is a 72 year old male with [...] for pneumonia and treated with Solu-Medrol, azithromycin andceftriaxone. He took azithromycin daily for about 1 [...] cutaneous infections including cellulitis, shingles and abscesses. Deniesgastrointestinal infections. There is no family history of [...] and postnasal drip. Skin test completed by [facility] in 2020, he had 1+ results [...] for those listed above. PAST MEDICAL HISTORY 11/21/2014: Asthma Comment: 11/2014: DARIEL +, 20% drop in FEV1 at 25 mg/mL. 11/21/2014: Chronic sinusitis Comment: 11/2014 CT sinus. No date: DDD (degenerative disc disease), cervical No date: DDD (degenerative disc disease), lumbar [...] No date: Prediabetes No date: Umbilical hernia MEDICATIONS: calcium carbonate (CALCIUM 500 ORAL) Take by mouth. vit A/vit C/vit E/zinc/copper (PRESERVISION AREDS ORAL) Take by mouth. B.coagul,subtilis/inulin/vit C (CULTURELLE PROBIOTIC-PREBIOTIC ORAL) Take by mouth. mv-mn/C/glutamin/lysin/myea347 (AIRBORNE, ASCORBATE SODIUM, ORAL) Take by mouth. azithromycin (ZITHROMAX) 250 mg tablet Take one daily. albuterol HFA (PROAIR HFA) 90 mcg/actuation inhaler Inhale 2 Puffs as instructed every 6 hours as needed for wheezing/shortness of breath. tezepelumab-ekko (TEZSPIRE) 210 mg/1.91 mL (110 mg/mL) syringe Inject 1.91 mL subcutaneously every 4 weeks. fluticasone-salmeterol HFA (ADVAIR HFA) 230-21 mcg/actuation inhaler Inhale 2 Puffs as instructed twice daily. Cholecalciferol, Vitamin D3, 25 mcg (1,000 unit) cap Take 1,000 Units by mouth once daily. lansoprazole (PREVACID) 30 mg capsule Take 30 mg by mouth once daily. montelukast (SINGULAIR) 10 mg tablet Take 10 mg by mouth daily at bedtime. tamsulosin (FLOMAX) 0.4 mg Take 0.4 mg by mouth once daily. tiotropium bromide (SPIRIVA RESPIMAT) 1.25 mcg/actuation mist Inhale 2 Puffs as instructed once daily. azelastine-fluticasone 137-50 mcg/spray spry Use in each nostril. ipratropium bromide (ATROVENT) 42 mcg (0.06 %) nasal spray Use 2 Sprays in the nose four times daily. rosuvastatin (CRESTOR) 5 mg tablet Take [...] tablet daily. ALLERGIES: Allergies As of Date: 03/16/2024 Allergen Noted Reaction LISINOPRIL 03/08/2013 Cough SIMVASTATIN 05/25/2012 Other: See Comments Fully Assessed 02/25/2024 PAST SURGICAL HISTORY 08/14/2006: COLONOSCOPY FLX DX W/COLLJ SPEC WHEN PFRMD Comment: Colonoscopy 06/24/2017: COLONOSCOPY FLX DX W/COLLJ SPEC WHEN PFRMD Comment: Colonoscopy 06/24/2017: ESOPHAGOGASTRODUODENOSCOPY TRANSORAL DIAGNOSTIC Comment: EGD No date: EXC/DSTRJ LINGUAL TONSIL ANY METHOD SPX 05/2015: IR URETERAL STENT Comment: followed by removal No date: PAST SURGICAL HISTORY OF Comment: neck surgery disc No date: PAST SURGICAL HISTORY OF Comment: microdiscectomy x 2 lumber L5 and L6 2001: PAST SURGICAL HISTORY OF Comment: HEART CATH PER DR ARRINGTON No date: PAST SURGICAL HISTORY OF Comment: eye stents for glaucoma No date: PAST SURGICAL HISTORY OF Comment: UPPP No date: PAST SURGICAL HISTORY OF Comment: Deviated septum No date: REMV CATARACT EXTRACAP,INSERT LENS FAMILY HISTORY: Allergic [...] air Basement: Damp basement, Carpeted, Furnished Shweta: Gyfy-bu-ldhh carpeting, Hardwood floor Dust mite controls: Dust [...] RESPIRATORY: breathing non-labored NEUROLOGIC: no obvious deficit documented [facility] Nurse Note* Simona Schafer RN - 03/16/2024 8:00 AM EDT F/u visit . Breathing is good with no issues. Using the asstepro nasal spray with the fluticasone nasal spray. Pt not using albuterol and nebulizer. Has not have to use it in over a year. documented in this encounterSelect [facility]08-22-2024 Instructions* Patient Instructions* Shabana Ramos MD - 02/25/2024 10:44 AM EDT Stop Spiriva If no worsening of asthma change azithromycin to three times a week, Mon, Wed, Fri documented in this encounterSelect [facility]-22-2024 History of Present illness Narrative* Shabana Ramos MD - 02/25/2024 10:30 AM EDT Images from the original note were not included. . [facility] [place] Note Patient name: Joaquin Hendricks PCP: Art Ureña MD CC: Follow-up asthma HPI: Joaquin Hendricks 73 year old male never smoker with PMH significant for morbid obesity, asthma (positive DARIEL), CARMELLA on CPAP, HTN, HLD, CAD s/p stent, low IgG without immunodeficiency, bronchial wallthickening without evidence of bronchiectasis on last chest CT. Current therapy consists of Advair,Spiriva, Tezspire (receiving at [facility] infusion center due to insurance reasons), daily azithromycin and albuterol as needed. Since he was started on aggressive therapy, well-controlled. He has not had any recent upper resp infections requiring antibiotics. No flares of his asthma requiring steroids. Denies significant dyspnea, sputum production, wheezing. No nocturnal awakenings. No need for his albuterol inhaler, in fact, has not needed rescue inhaler for over a year. DATA: ASTHMA CONTROL TEST Date: 02/25/2024 In the last 4 weeks, how much [...] Completely controlled (5) Total: more than 20 Labs: Component Ref Range & Units 2 wk ago 1 yr ago IgG 700 - 1,600 mg/dL 572 Low 565 Low PAST MEDICAL HISTORY 11/21/2014: Asthma Comment: 11/2014: DARIEL +, 20% drop in FEV1 at 25 mg/mL. 11/21/2014: Chronic sinusitis Comment: 11/2014 CT sinus. No date: DDD (degenerative disc disease), cervical No date: DDD (degenerative disc disease), lumbar [...] No date: Prediabetes No date: Umbilical hernia ALLERGIES Allergen Reactions Lisinopril Cough Simvastatin Other: See Comments elevated liver enzyme,elevated muscle enzyme calcium carbonate (CALCIUM 500 ORAL) Take by mouth. vit A/vit C/vit E/zinc/copper (PRESERVISION AREDS ORAL) Take by mouth. B.coagul,subtilis/inulin/vit C (CULTURELLE PROBIOTIC-PREBIOTIC ORAL) Take by mouth. mv-mn/C/glutamin/lysin/shmj082 (AIRBORNE, ASCORBATE SODIUM, ORAL) Take by mouth. azithromycin (ZITHROMAX) 250 mg tablet Take one daily. albuterol HFA (PROAIR HFA) 90 mcg/actuation inhaler Inhale 2 Puffs as instructed every 6 hours as needed for wheezing/shortness of breath. tezepelumab-ekko (TEZSPIRE) 210 mg/1.91 mL (110 mg/mL) [...] Inhale 2 Puffs as instructed once daily. azelastine-fluticasone 137-50 mcg/spray spry Use in each nostril. ipratropium bromide (ATROVENT) 42 mcg (0.06 %) nasal spray Use 2 Sprays in the nose four times daily. rosuvastatin (CRESTOR) 5 mg tablet Take [...] THERAPEUTIC MULTIVITAMIN TAB Take one(1) tablet daily. Cholecalciferol, Vitamin D3, 25 mcg (1,000 unit) cap Take 1,000 Units by mouth once daily. CPAP Initiate AutoPAP @ 10/20 cm of water with humidification. Mask (per patient preference) optional chin strap (if indicated) , filters, tubing, humidifier and lifetime supplies. Dx. CARMELLA 327.23 Social History Tobacco Use Smoking status: Never Smokeless tobacco: Never Tobacco comments: Parents smoked in childhood home. Substance Use Topics Alcohol use: Yes Drug use: No FAMILY HISTORY Problem Relation Age of Onset Cancer Father bone marrow PMH, Social history, family history and surgical history reviewed and updated in EMR REVIEW OF SYSTEMS: CONSTITUTIONAL: No fevers, chills, nightsweats, unintended weight loss HEENT: Denies nasal congestion/sinus symptoms, allergy problems. CARDIOVASCULAR: No chest pain, dyspnea, palpitations, orthopnea. Chronic edema. PULM: See HPI GI: No dysphagia/odynophagia, problematic reflux, constipation, diarrhea, changes in stool habits, hematochezia, melena. : Recent kidney stone INTEGUMENTARY: No new skin changes, rashes PHYSICAL EXAMINATION: BP 136/78 Pulse 96 Resp 18 Wt 301 lb (136.5kg) SpO2 95% General Appearance: Morbidly obese male, NAD. Skin: Skin color, texture, turgor normal, no suspicious rashes or lesions. Head: Normocephalic, no masses, lesions, tenderness or abnormalities. HEENT: No hearing loss Oropharynx: No oral lesions or thrush. Neck: No masses or adenopathy. Lungs: Not labored, normal to percussion, no wheezes or crackles. Heart: Regular rate and rhythm, no murmurs or gallops. Extremities: Mild pitting edema, no clubbing. Assessment/Plan: 1. Severe persistent asthma, uncomplicated -Symptoms currently well-controlled with maximal therapy -De-escalate regimen: Start with discontinuing Spiriva. If he does well off of Spiriva then he willdecrease his azithromycin dose to 3 times a week rather than daily. Patient instructed to contact the office if he has difficulty with his breathing after changing therapy. Otherwise he will follow-up in 6 months -He will continue on Advair, Tezspire 2. Low immunoglobulin level -Persistently low IgG level without evidence of immune therapy. Previously evaluated by immunology -No bronchitis or pneumonia since starting daily azithromycin therapy 3. Morbid obesity -BMI 44 -Weight loss advised as obesity portends poor control of asthma Shabana Ramos MD [facility] [place] documented in this encounterSelect [facility]06-[facility]24 Telephone encounter Note * Telephone Encounter - Faye Bassett LPN - 12/23/2023 3:01 PM EDT Received Outpatient infusion Prescription and pre Authorization signed from Dr. Dior. Faxed over [facility] [phone]. Call placed to patient, updated patient states verbal understanding [facility]-19-[facility]24 Miscellaneous Notes* Telephone Encounter - Faye Bassett LPN - 12/23/2023 3:01 PM EDT Received Outpatient infusion Prescription and pre Authorization signed from Dr. Dior. Faxed over [facility] [phone]. Call placed to patient, updated patient states verbal understanding * Telephone Encounter - Elena Dior MD - 12/23/2023 2:58 PM EDT Rx signed for Tezspmilagros Dior MD * Telephone Encounter - Constanza Upton RN - 12/23/2023 2:16 PM EDT Patient receives Tezspire injections at [facility] due to insurance reasons. Script isexpired. New order sheet completed and on desk for signature. Will fax back to [facility] at [phone] Patient will be notified - h is due for his next injection on 12-30-23 [place] 08/06/23 documented in this encounterSelect [facility]06-19-2024 Telephone encounter Note * Telephone Encounter - Elena Dior MD - 12/23/2023 2:58 PM EDT Rx signed for Tezspmilagros Dior MD [facility]-19-[facility]24 Telephone encounter Note* Telephone Encounter - Constanza Upton RN - 12/23/2023 2:16 PM EDT Patient receives Tezspire injections at [facility] due to insurance reasons. Script isexpired. New order sheet completed and on desk for signature. Will fax back to [facility] at [phone] Patient will be notified - h is due for his next injection on 12-30-23 [place] 08/06/23 [facility] History of Present illness Narrative* Barbara Martins PA-C - 08/19/2023 11:30 AM EST Images from the original note were not included. Patient: Joaquin Hendricks PCP: Art Ureña MD CC: follow up HPI: Joaquin Hendricks 72 year old morbidly obese male, never smoker with PMH significant for severe persistent asthma diagnosed by positive DARIEL, nonallergic rhinitis, hypogammaglobulinemia, bronchiectasis, GERD, gout, glaucoma, CARMELLA on CPAP, HTN, HLD, and coronary artery disease s/p stent. Previously hospitalized for Haemophilus influenza pneumonia. Patient with a history of recurrent pneumonia and patient with a low IgG level. He is being seen by Dr. Dior who had patient receive Prevnar 20 in May 2023. Patient with a fair immune response to the vaccine. Currently therapy consists of Advair,Spiriva, Tezspire, Singulair, daily Azithromycin, and Albuterol. Today, patient states he occasional coughs at night. Using Atrovent nasal spray as needed in the winter secondary to dryness. Using Flonase and Astelin nasal sprays nightly. Follows with [facility], Dr. Fox. Denies significant wheezing or SOB. No chest pain or palpitations. Stable lower extremity edema. Follows with [facility]. Consistently wearing CPAP at night. PAST MEDICAL HISTORY Diagnosis Date Asthma 11/21/201411/2014: [...] See Comments Comment:elevated liver enzyme,elevated muscle enzyme azithromycin (ZITHROMAX) 250 mg tablet Take one daily. albuterol HFA (PROAIR HFA) 90 mcg/actuation inhaler Inhale 2 Puffs as instructed every 6 hours as needed for wheezing/shortness of breath. tezepelumab-ekko (TEZSPIRE) 210 mg/1.91 mL (110 mg/mL) syringe Inject 1.91 mL subcutaneously every 4 weeks. fluticasone-salmeterol HFA (ADVAIR HFA) 230-21 mcg/actuation inhaler Inhale 2 Puffs as instructed twice daily. Cholecalciferol, Vitamin D3, 25 mcg (1,000 unit) cap Take 1,000 Units by mouth once daily. lansoprazole (PREVACID) 30 mg capsule Take [...] home. Substance Use Topics Alcohol use: Yes Drug use: No Family History Problem Relation [...] HISTORY OF [address] ARRINGTON PAST SURGICAL HISTORY OF eye stents for glaucoma PAST SURGICAL HISTORY OF UPPP PAST SURGICAL HISTORY OF Deviated septum REMV CATARACT EXTRACAP,INSERT LENS I reviewed the past medical history, family history, social history and surgical history with changes noted above and updated in EMR. IMMUNIZATIONS Prevnar - 05/2023 Pneumovax - 2020 Influenza - 2022 COVID-19 - most recent 05/2023 RSV - 2022 ROS: CONSTITUTIONAL: No fevers, chills, nightsweats, unintended weight loss HEENT: No current allergy symptoms or significant PND. No blurry vision or change in vision. Wears hearing aids, no change in hearing with Azithromycin. CARDIOVASCULAR: No chest pain, dyspnea, palpitations PULM: See HPI GI: No dysphagia/odynophagia, problematic reflux, N/V/D INTEGUMENTARY: No new skin changes or rashes PHYSICAL EXAMINATION: BP 128/74 Pulse (P) 66 Resp (P) 14 Wt 129.7 kg (286 lb) SpO2 (P) 99% BMI 41.93 kg/m Gen: No acute distress. Cooperative with examination. Morbidly obese. HEENT: Normocephalic. Sclera, conjunctiva clear. Oral hygeine and dentition good. No thrush. Resp: No stridor, accessory respiratory muscle use, supra-sternal or intercostal retractions. No wheezes, crackles. CV: Regular rythm. Heart tones normal. Radial pulses normal. MSK: No kyphoscoliosis. Ext: Warm and well perfused. No clubbing, cyanosis. 1+ pitting edema. Skin: No rash, ecchymoses. Neuro: Mental status normal. Affect normal. No tremor. DATA: Oximetry, 05/18/2023 O2 Device O2 Adapter NC O2 Flow [...] - ICD9: 493.90, ICD10: J45.50 (primary diagnosis) Symptomatically doing well. Continue Advair and Spiriva. Rinse mouth after each use to help prevent oral thrush. Albuterol HFA inhaler, 2 inhalations 10-15 minutes prior to activities associated with shortness ofbreath, and as needed for rescue relief of shortness of breath or wheezing, up to 4 times daily. Continue Singulair nightly. Tezspire every 4 weeks. 2. Morbid obesity (HCC) - ICD9: 278.01, ICD10: E66.01 Weight loss advised. 3. Bronchiectasis without complication (HCC) - ICD9: 494.0, ICD10: J47.9 Azithromycin daily. Tolerating well. Patient had one positive sputum for MAC, but additional sputum negative. 4. H/O recurrent pneumonia - ICD9: V12.61, ICD10: Z87.01 Hypogammaglobulinemia most likely secondary to systemic corticosteroids per Dr. Dior's office notes. He had a fair immune response to Prevnar 20. Will repeat IgG, IgA and IgM in 6 months (February 2024) 5. CARMELLA (obstructive sleep apnea) - ICD9: 327.23, ICD10: G47.33 Consistently compliant with CPAP Portions of this documentation were copied and pasted from previous office visit notes in order to provide a cohesive continuity of the history. The note has been reviewed and edited and updated as necessary. Barbara Martins PA-C documented in this encounterSelect [facility]-01-2024 Instructions* Patient Instructions* Elena Dior MD - 08/06/2023 2:52 PM EST Please go to the lab in 6 months to have antibody levels checked. documented in this encounterSelect [facility]-2024 History of Present illness Narrative* Elena Dior MD - 08/06/2023 2:30 PM EST Joaquin Hendricks is a 72 year old male with a history of nonallergic rhinitis, severe persistentasthma, hypogammaglobulinemia and bronchiectasis who presents for a follow-up visit. His last visitwas March 31, 2023. He has been taking azithromycin 250 mg [...] to the requesting healthcare provider(s) [facility] or via U.S. mail. Joaquin Hendricks is a 72 year old male with [...] for pneumonia and treated with Solu-Medrol, azithromycin andceftriaxone. He took azithromycin daily for about 1 [...] cutaneous infections including cellulitis, shingles and abscesses. Deniesgastrointestinal infections. There is no family history of [...] and postnasal drip. Skin test completed by [facility] in 2020, he had 1+ results [...] (ZITHROMAX) 250 mg tablet Take one daily. albuterol HFA (PROAIR HFA) 90 mcg/actuation inhaler Inhale 2 Puffs as instructed every 6 hours as needed for wheezing/shortness of breath. tezepelumab-ekko (TEZSPIRE) 210 mg/1.91 mL (110 mg/mL) syringe Inject 1.91 mL subcutaneously every 4 weeks. fluticasone-salmeterol HFA (ADVAIR HFA) 230-21 mcg/actuation inhaler Inhale 2 Puffs as instructed twice daily. Cholecalciferol, Vitamin D3, 25 mcg (1,000 unit) cap Take 1,000 Units by mouth once daily. lansoprazole (PREVACID) 30 mg capsule Take [...] tablet daily. ALLERGIES: Allergies As of Date: 08/06/2023 Allergen Noted Reaction LISINOPRIL 03/08/2013 Cough SIMVASTATIN 05/25/2012 Other: See Comments Fully Assessed 05/18/2023 PAST SURGICAL HISTORY Procedure Laterality Date COLONOSCOPY [...] HISTORY OF [address] ARRINGTON PAST SURGICAL HISTORY OF eye stents for glaucoma PAST SURGICAL HISTORY OF UPPP PAST SURGICAL HISTORY OF Deviated septum REMV CATARACT EXTRACAP,INSERT LENS FAMILY HISTORY: Allergic rhinitis:no. Asthma: no. Eczema: no. Cystic fibrosis: no. Immunodeficiency: no. 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 ENVIRONMENTAL HISTORY: Lives in a house Age of home: 6 years Heating: gas Woodburning fireplace in the home: no Air conditioning: Central air Basement: Damp basement, Carpeted, Furnished [place]: Tzsi-dt-tzyu carpeting, Hardwood floor Dust mite controls: Dust [...] auscultation bilaterally, no wheezes, rales or rhonchi EXTREMITIES:Extremities normal, No deformities, No skin discoloration, and No edema SKIN: Skin color, texture, turgor normal. No rashes or lesions. ASSESSMENT/PLAN: 1.) Hypogammaglobulinemia, suspect secondary to treatment with systemic corticosteroids Patient received Prevnar 20 on May 06, 2023 and had a fair immune response to this vaccine. 1 month post vaccination, he had antibody titers greater than 1 mcg/mL to 10 pneumococcal serotypes compared to 5 pneumococcal serotypes prevaccination. Four-fold increase in titers to 4 of the serotypesand >2x increase to 1 serotype. Clinically, he has been doing well without significant infections since his last visit, suspect hisimprovement is due to daily azithromycin. Recommend repeat IgG, IgA and IgM in 6 months with a follow-up visit shortly afterwards. 2.) Severe persistent asthma Bronchiectasis Continue management as prescribed by pulmonary medicine: -Advair 230-21, Singulair 10 mg and Spiriva 1.25 mg. -Tezspire every 4 weeks. -Albuterol 2 puffs every 4 hours as needed. -azithromycin 250 mg once daily Continue to follow-up with pulmonary medicine. 3.) Nonallergic rhinitis: Continue Dymista, Atrovent nasal spray, loratadine and Mucinex. 4.) Discussed medication dosage, usage, side effects, and goals of treatment in detail. 5.) Follow-up in 6 months with repeat IgG, IgA and IgM.- patient will return sooner should new symptoms or problems arise. Elena Dior MD documented in this encounterSelect [facility]-01-2024 Nurse Note* Faye Bassett LPN - 08/06/2023 2:21 PM EST EST. Patient here for follow up appt - labs done in June Denies any concerns; Feeling the same from last visit documented in this encounterSelect [facility]12-14-2023 Miscellaneous Notes* Telephone Encounter - Lila Crespo - 06/18/2023 1:33 PM EST Spoke with patient scheduled patient with for a virtual visit 07-22-2023 at 8am * Telephone Encounter - Elena Dior MD - 06/18/2023 12:06 PM EST Please contact patient and let him know that I would like to see him for a follow-up visit (in-office or virtual) to discuss his lab results and review how he has been doing clinically since his lastvisit. Assist with scheduling. Elena Dior MD documented in this encounterSelect [facility]2023 Miscellaneous Notes* Telephone Encounter - Cadence Bryan LPN - 05/27/2023 4:42 PM EST Faxed signed order by Barbara Martins PA-C to discontinue home oxygen to [facility]. Cadence Bryan LPN documented in this encounterSelect [facility]2023 Miscellaneous Notes* Addendum Note - Barbara Martins PA-C - 05/27/2023 3:28 PM ESTAddended by: BARBARA MARTINS on: 05/27/2023 03:28 PM Modules accepted: Orders documented in this encounterSelect Medical [facility]11-13-2023 Procedure note* Reece Bolanos RPFT - 05/18/2023 11:24 AM ESTAssociated Order(s): OXIMETRY WITH AMBULATION RESPIRATORY THERAPY OXIMETRY WITH [...] -- None NAME: BIPIN Whitley PATIENT NAME: Joaquin Hendricks DATE: May 18, 2023 TIME: 11:24 AM Comment: documented in this encounterSelect Medical Special[facility]11-13-2023 History of Present illness Narrative* Reece Bolanos RPFT - 05/18/2023 11:22 AM EST PULM FUNCTION SMARTBLOCK: Provider: Barbara Martins PA-C Assisting Tech: Reece Bolanos RPFT Oximetry - Ambulation: 1 documented in this encounterSelect [facility]11-13-2023 History of Present illness Narrative* Barbara Martins PA-C - 05/18/2023 10:59 AM EST Patient: Joaquin Hendricks PCP: Art Ureña MD CC: routine follow up HPI: Joaquin Hendricks 72 year old morbidly obese male, never smoker with PMH significant for severe persistent asthma diagnosed by positive DARIEL, GERD, gout, glaucoma, CARMELLA on CPAP, HTN, HLD, coronary artery disease s/p stent. Was last seen by Dr. Ramos 02/12 following a recent hospital admission for Haemophilus influenza pneumonia. Patient with a history of recurrent pneumonia and patient with a low IgG level. He was referred to Dr. Dior for an immunology evaluation. After further testing, [...] HISTORY OF [address] ARRINGTON PAST SURGICAL HISTORY OF eye stents for glaucoma PAST SURGICAL HISTORY OF UPPP PAST SURGICAL HISTORY OF Deviated septum REMV CATARACT EXTRACAP,INSERT LENS I reviewed the past medical history, family history, social history and surgical history with changes noted above and updated in EMR. IMMUNIZATIONS Prevnar 20 - 05/06/2023 Prevnar 13 - 2016 Pneumovax - 2020 Influenza - planning today at [facility]-19 - most recent 05/2022 ROS: CONSTITUTIONAL: No [...] minutes prior to activities associated with shortness ofbreath, and as needed for rescue relief of [...] Z87.01 Low IgG level. Referred to Dr. Dior for further evaluation. 5. CARMELLA (obstructive sleep [...] necessary. Barbara Martins PA-C documented in this [facility] Nurse Note* Dinah Odonnell RN - 05/06/2023 1:02 PM EDT [facility] Prevnar [address] Dior's order. Patient aware to complete lab work in 1 month. Message sent to Dr. Dior to place order. documented in this [facility]10-26-2023 Miscellaneous Notes* Telephone Encounter - Elena Dior MD - 04/30/2023 8:09 AM EDT a * Telephone Encounter - Constanza Upton RN - 04/30/2023 7:11 AM EDT Please advise patient. documented in this [facility]10-18-2023 Miscellaneous Notes* Telephone Encounter - Elena Dior MD - 04/22/2023 10:20 AM EDT Order placed Elena Dior MD documented in this [facility]09-26-2023 Nurse Note* Mariya Perez - 03/31/2023 2:04 PM EDT Patient is here to establish care. He has low IgG levels and asthma. Multiple episodes of pneumonia, very susceptible to infections. Also complains of asthma. Mariya Perez March 31, 2023 2:06 PM documented in this [facility]09-26-2023 History of Present illness Narrative* Elena Dior MD - 03/31/2023 1:50 PM EDT This is a consultation requested by Shabana Ramos MD for an allergy and immunology evaluation. My final recommendations will be communicated back to the requesting healthcare provider(s) by [facility] or via U.[place]. mail. Joaquin Hendricks is a 72 year old male with [...] for pneumonia and treated with Solu-Medrol, azithromycin andceftriaxone. He took azithromycin daily for about 1 [...] cutaneous infections including cellulitis, shingles and abscesses. Deniesgastrointestinal infections. There is no family history of [...] and postnasal drip. Skin test completed by [facility] in 2020, he had 1+ results [...] suffer from frequent sinopulmonary infections. ASTHMA: See TRIBAL ECZEMA: The patient has no history of eczema. URTICARIA:The patient does not have a history of urticaria and/or angioedema. GERD: See TRIBAL INSECT STING: The patient does not have a history of systemic reaction to insect sting. FOOD ALLERGY:See TRIBAL. LATEX: The patient does not have a [...] HISTORY OF [address] ARRINGTON PAST SURGICAL HISTORY OF eye stents for [...] air Basement: Damp basement, Carpeted, Furnished [place]: Ncyi-nw-[id number] carpeting, Hardwood floor Dust mite controls: Dust [...] risks including anaphylaxis, headache, malaise, kidney failure, infe ction and thrombosis were discussed with the patient. 2.) Severe persistent asthma: Continue Advair 230-21, Singulair 10 mg and Spiriva 1.25 mg. Continue Tezspire every 4 weeks. Continue albuterol 2 puffs every 4 hours as needed. Continue to follow-up with pulmonary medicine. 3.) Chronic rhinitis: Allergen inhalants panel and allergen Dp will be obtained to evaluate further for possible inhalantallergies. Continue Dymista, Atrovent nasal spray, loratadine and Mucinex. 4.) Rash and nonspecific skin eruption: Reassured patient that his symptoms are not consistent withIgE-mediated food allergies. 5.) Discussed medication dosage, usage, side effects, and goals of treatment in detail. 6.) Patient will be contacted regarding laboratory results and further recommendations regarding follow-up will be obtained at that time.- patient will return sooner should new symptoms or problems arise. Elena Dior MD documented in this encounterSelect [facility]-18-2023 Miscellaneous Notes* Telephone Encounter - Constanza Upton RN - 03/23/2023 1:34 PM EDT Spoke with patient and gave antihistamine avoidance instructions. * Telephone Encounter - Emma Traylor LPN - 03/23/2023 1:11 PM EDT Will defer to allergy for specifics. 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 He needs clarification on which ones he is able to stop prior to appointment. Pt is asking for a return call.Eneida Metz RN documented in this encounterSelect [facility]08-10-2023 History of Present illness Narrative* Shabana Ramos MD - 02/12/2023 9:30 AM EDT Images from the original note were not included. . Respiratory [place] Note Patient name: Joaquin Hendricks PCP: Art Ureña MD CC: follow-up asthma and recent PNA HPI: Joaquin Hendricks 72 year old male morbidly male, never smoker with PMH significant for asthma diagnosed by positive DARIEL, GERD, gout, glaucoma, CARMELLA on CPAP, HTN, HLD, coronary artery disease s/p stent recently seen for follow-up. He had initially seen Dr. Westbrook in 2015 but opted to follow-up with the [facility], returning to our clinic last month for management of his asthma and history of recurrent pneumonia. Recently admitted to [facility] with Haemophilus influenza pneumonia. Current therapy [...] mucus plugging, linear atelectasis. He has been usinghis mucus clearance techniques and currently not producing [...] DATE OF EXAM: Feb 02 2023 8:47[facility]CON / PROCEDURE REASON: Pneumonia of right lower lobe due to Haemophilus influenzae (HCC) Comparison: CT chest 10/16/2014 RESULT: Limitations: None. Lines, tubes, and devices: None. Lung parenchyma and airways: Central airways are patent. There is mild peribronchial cuffing in theright lower lobe segmental/subsegmental bronchi and to a lesser degree in the lingula and right upper lobe. Nonspecific groundglass/reticulonodular opacity in the lingula (14:26) and additionally in the inferior right upper lobe (14:161).. Minimal bibasilar subsegmental atelectasis. Pleural space: No pleural effusion. No pleural thickening. Lower neck, lymph nodes, and mediastinum: The imaged thyroid gland is normal. No lymphadenopathy inthe supraclavicular, axillary, mediastinal, or hilar regions. Heart, pericardium, and thoracic vessels: The heart is enlarged. Coronary artery and aortic calcifications. No pericardial effusion. The great vessels are normal incaliber. Bones and soft tissues: Partially imaged cervical [...] History of recurrent pneumonia -Quantitative immumoglobulins Shabana Ramos MD [facility] [place] documented in this encounterSelect [facility]07-14-2023 Nurse Note* Emma Traylor LPN - 01/16/2023 8:46 AM EDT Intake information documented in the prior visit with BIPIN Whitley today. documented in this encounterSelect [facility]07-14-2023 History of Present illness Narrative* Shabana Ramos MD - 01/16/2023 8:45 AM EDT Images from the original note were not included. . Respiratory [place] Note Patient name: Joaquin Hendricks PCP: Art Ureña MD Referring Physician: Self CC: asthma/recurrent PNA HPI: Joaquin Hendricks 72 year old morbidly obese male never smoker with PMH significant for asthma diagnosed by positive DARIEL, GERD, gout, glaucoma, CARMELLA on CPAP, HLD, HTN, CAD s/p stent (Aug 2022) last seen by Dr. Westbrook in 2014. Started on ICS with as needed albuterol. He did not follow up with Dr. Westbrook, opting to follow with [facility]. No prior history of asthma as a child although he did have significant hayfever. 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 noted wheezing. Denied significant OBRIEN/SOB. He was started on Advair and Spiriva in 2018. He had extensive allergy assessment due to chronicsinus disease with postnasal drip and peripheral eosinophilia [...] bout per year but current problem dates backto October of last year. He had 3 courses of azithromycin and oral steroids between October and January and was eventually admitted to [facility] in January [address] of the chestshowed significant left lower lobe infiltrate. He continued to have wheezing, chest congestion, severe coughing and sputum production. Sputum culture obtained in Mar pertinent for Haemophilus influenzae beta-lactam positive. Antibiotic therapy changed to Levaquin which improved his symptoms. He was ill again around time and took another course of Levaquin. Hospitalized in [place] with bilateral pneumonia. Modified barium swallow testing negative for aspiration or reflux. Just recently hospitalized at [facility] last month. Symptoms at that time co nsisted of severe coughing, unable to lie flat due to coughing, shortness of breath, hypoxemia, sputum described as oyster colored, chest x-ray right lower lobe pneumonia and sputum positive for Haemophilus influenzae now beta-lactamase negative. IgG levels low normal. Currently on Levaquin, 40 mg of prednisone and discharged with oxygen. Past history also notable for COVID infection 09/2022 but did not require hospitalization. DME: [facility] DATA: SERVICE DATE: 01/16/2023 SERVICE TIME: 8:42 AM Oral Exhaled Nitric Oxide measurement: 19.0 (ppb) PFT: Review of pulmonary function tests are normal Labs: No recent eosinophilia IgG 620 mg/dL, 703 mg/dL Imaging / Diagnostic Studies: ECG QTc 424 msec I personally reviewed the images of his chest x-ray from [facility] last admission which shows right lower [...] as needed for up to 15 days. (Patientnot taking: Reported on 01/16/2023) fluticasone (FLOVENT HFA) [...] and spit 10-15mLs every 3-4 hours as needfor throat discomfort. ASCORBIC ACID (VITAMIN C ORAL) [...] HISTORY OF [address] ARRINGTON PAST SURGICAL HISTORY OF eye stents for [...] Total time: 2 hours 9 minutes Shabana Ramos MD Res[facility] [place] documented in this encounterSelect [facility]07-14-2023 Procedure note* Reece Bolanos RPFT - 01/16/2023 8:42 AM EDTAssociated Order(s): NITRIC OXIDE, EXHALED RESPIRATORY THERAPY ORAL EXHALED [...] BIPIN Whitley PATIENT NAME: Joaquin Hendricks DATE: January 16, 2023 TIME: 8:42 AM documented in this encounterSelect Medical [facility]07-14-2023 History of Present illness Narrative* Reece Bolanos RPFT - 01/16/2023 8:23 AM EDT PULM FUNCTION SMARTBLOCK: Provider: Shabana Ramos MD Assisting Tech: Reece Bolanos RPFT Spirometry: 1 Exhaled Nitric Oxide: 1 documented in this encounterSelect [facility]07-12-2023 Discharge summary Author Pa Wilson [facility] January 14, 2023 11:15am Note Date/Time January 14, 2023 11:1 5am [facility] Medical Records Department [address] [place] [address] Discharge Summary 01/14/231112 MR#: [id number] Acct: [id number] Name: JOAQUIN HENDRICKS Rep #:[id number] : 1950 72 From: Pa Wilson DO PCP: Dr. Art Ureña MD Status:ADM IN Location: [place] [id number] Providers Date of Admission: 01/11/23 Primary Care Physician: Dr. Art Ureña MD Reason For Visit: COPD EXACERBATION Diagnosis Discharge Diagnosis (1) Asthma exacerbation: Status: Acute Code(s): J45.901 - Unspecified asthma with (acute) exacerbation Qualifiers: Asthma severity: severe Asthma persistence: persistent Qualified Code(s): J45.51 - Severe persistent asthma with (acute) exacerbation Plan: Exacerbated by H. influenza I reviewed records from the pulmonary office from 11/25: Pt w severe, persistent asthma. Has previously failed Nucala. Now on texepelumab-ekko Respiratory panel negative. COVID 19, influenza negative. Strep and legionella negative. SCx pending. CXR reviewed, no definitive infiltrate. Discharge on 01/14 with prednisone taper. Would taper to 5mg daily (had been on 10 QOD) Follow up with pulmonary in next few weeks. (2) Haemophilus influenzae pneumonia: Status: Acute Code(s): J14 - Pneumonia due to Hemophilus influenzae Qualifiers: Laterality: unspecified laterality Lung location: unspecified part of lung Qualified Code(s): J14 - Pneumonia due to Hemophilus influenzae Plan: beta lactamase negative has been on CTX will discharge with levofloxacin for 4 more days to complete 7 days of abx. (3) Hypoxia: Status: Acute Code(s): R09.02 - Hypoxemia Plan: 2/2 to above. oxygen has been able to be weaned. Normally, does not use oxygen. Check home oxygen evaluation. Pt already has oxygen at home, but uses PRN. Pt isvery adept at check his pulse ox. Plan Chronic conditions: * CARMELLA: CPAP QHS * CAD: s/p PCI. continue ASA and clopidogrel * gout: continue allopurinol DVT prophylaxis Subcutaneous Lovenox ordered. Medications at Discharge Home Medications multivitamin 1 tab PO DAILY 09/19/20 PEP device #1 ea 06/12/22 allopurinol 300 mg tablet 300 mg PO DAILY #90 tabs 07/16/22 cholecalciferol (vitamin D3) 25 mcg (1,000 unit) capsule 25 mcg PO DAILY #90 caps 07/16/22 fluticasone propionate 230 mcg-salmeterol 21 mcg/actuation HFA inhaler (Advair HFA) 2 puff inhalation Q12H #3 ea 07/16/22 guaifenesin 1,200 mg tablet, extended release 12 hr 1,200 mg PO Q12H #60 tabs 07/16/22 irbesartan 150 mg tablet 150 mg PO DAILY #90 tabs 07/16/22 lansoprazole 30 mg capsule,delayed release (Prevacid) 30 mg PO DAILY #90 caps 07/16/22 loratadine 10 mg tablet 10 mg PO DAILY #90 tabs 07/16/22 montelukast 10 mg tablet 10 mg PO QPM #90 tabs 07/16/22 rosuvastatin 5 mg tablet 2.5 mg (1/2 x 5 mg) PO QODAY #90 tabs 07/16/22 tamsulosin 0.4 mg capsule 0.4 mg PO DAILY #90 caps 07/16/22 tiotropium bromide 1.25 mcg/actuation mist for inhalation (Spiriva Respimat) 2 puff inhalation DAILY #3 ea 07/16/22 trazodone 100 mg tablet 100 mg PO QHS PRN insomnia 90 days #40 tabs 07/16/22 albuterol sulfate 90 mcg/actuation aerosol inhaler (Ventolin HFA) 2 puff inhalation Q4H PRN shortness of breath or wheezing #18 grams 07/17/22 aspirin 81 mg chewable tablet 81 mg PO BREAKFAST #90 tabs 08/15/22 albuterol sulfate 2.5 mg/3 mL (0.083 %) solution for nebulization 2.5 mg (3 mL) inhalation .COMPLEX Sob &/Or Wheezing #180 mL 09/24/22 azelastine-fluticasone 137 mcg-50 mcg/spray nasal spray 1 spray intranasal BID #23 grams 10/06/22 clopidogrel 75 mg tablet 75 mg PO DAILY #90 tabs 10/10/22 ipratropium bromide 42 mcg (0.06 %) nasal spray 1 spray intranasal BID PRN allergies 11/12/22 tezepelumab-ekko 210 mg/1.91 mL (110 mg/mL) subcutaneous pen injector (Tezspire)210 mg (1.91 mL) subcut Q4W #1.91 mL 11/28/22 levofloxacin 750 mg tablet 750 mg PO Q24H #4 tabs 01/14/23 prednisone 10 mg tablet 10 mg PO DAILY #60 tabs 01/14/23 Hospital Course Operations None Procedures None Summary of Care Provided Minutes Spent on Discharge: 35 Weight / BMI Weight Weight: 129 kg Body Mass Index (BMI) 40.8 ABG / Lab / Microbiology Data 01/13/23 04:53 01/12/23 05:15 Microbiology: Microbiology 01/11/23 01:33 Sputum, Expectorated/Coughed Gram Stain - Final 01/11/23 01:33 Sputum, Expectorated/Coughed Respiratory Culture - Final Haemophilus influenzae 01/11/23 14:14 Mucosa - Nose Respiratory Panel (PCR) - Final 01/11/23 12:32 Urine, Random Legionella Antigen - Final 01/11/23 12:32 Urine, Random Streptococcus pneumoniae Antigen (M - Final 01/11/23 01:36 Nasal Secretion SARS-CoV-2 & FLU Antigen (Rapid) - Final D/C Instructions Discharge Diet: Low fat / Low cholesterol Call your doctor if you observe: Shortness of breath Meaningful Use Info Meaningful Use Diagnoses (Choose all that apply): None applicable Discharge Plan Admission Admit Date/Time: 01/11/23 04:56 Primary Reason for Your Visit: Asthma exacerbation. Haemophilous influenza pneumonia. Attending Provider: Pa Wilson Primary Care Provider: Art Ureña Consulting Providers: Jerman Vigil; Tere Mariee Discharge Orders/Prescriptions Prescriptions: New levofloxacin 750 mg tablet 750 mg PO Q24H Qty: 4 0RF prednisone 10 mg tablet 10 mg PO DAILY Qty: 60 0RF Rx Instructions: 4 tabs daily x 3d, then 3 tabs daily x 3d, then 2 tabs daily x 3, then 1 tab daily x 3d, then 1/2 tab daily Continued multivitamin Tablet 1 tab PO DAILY (DME) PEP device See Rx Instructions .ROUTE .MEDSUPPLY Qty: 1 0RF Rx Instructions: with training Tezspire 210 mg/1.91 mL (110 mg/mL) pen injector 210 mg subcut Q4W Qty: 1.91 12RF clopidogrel 75 mg tablet 75 mg PO DAILY Qty: 90 3RF ipratropium bromide 42 mcg (0.06 %) spray,non-aerosol 1 spray intranasal BID PRN (Reason: allergies) Rx Instructions: administer into each nostril aspirin 81 mg Tablet,Chewable 81 mg PO BREAKFAST Qty: 90 3RF allopurinol 300 mg tablet 300 mg PO DAILY Qty: 90 3RF cholecalciferol (vitamin D3) 25 mcg (1,000 unit) capsule 25 mcg PO DAILY Qty: 90 3RF Advair HFA 230-21 mcg/actuation HFA aerosol inhaler 2 puff inhalation Q12H Qty: 3 3RF guaifenesin 1,200 mg tablet extended release 12hr 1,200 mg PO Q12H Qty: 60 6RF irbesartan 150 mg tablet 150 mg PO DAILY Qty: 90 3RF lansoprazole [Prevacid] 30 mg capsule,delayed release(DR/EC) 30 mg PO DAILY Qty: 90 3RF loratadine 10 mg tablet 10 mg PO DAILY Qty: 90 3RF montelukast 10 mg tablet 10 mg PO QPM Qty: 90 3RF rosuvastatin 5 mg tablet 2.5 mg PO QODAY Qty: 90 3RF tamsulosin 0.4 mg capsule 0.4 mg PO DAILY Qty: 90 3RF Spiriva Respimat 1.25 mcg/actuation mist 2 puff inhalation DAILY Qty: 3 3RF trazodone 100 mg tablet 100 mg PO QHS PRN (Reason: insomnia) 90 Days Qty: 40 1RF albuterol sulfate [Ventolin HFA] 90 mcg/actuation HFA aerosol inhaler 2 puff inhalation Q4H PRN (Reason: shortness of breath or wheezing) Qty: 18 6RF albuterol sulfate 2.5 mg /3 mL (0.083 %) solution for nebulization 2.5 mg inhalation .COMPLEX Qty: 180 11RF Rx Instructions: 2.5 mg inhaled BID; J45.9 Asthma azelastine-fluticasone 137-50 mcg/spray spray,non-aerosol 1 spray intranasal BID Qty: 23 6RF Rx Instructions: administer into each nostril Discontinued prednisone 10 mg tablet 10 mg PO QODAY Referrals / Follow Up: [facility] [Provider Group] - Within 2 Weeks Art Ureña MD [Primary Care Provider] - Within 2 Weeks Disposition Disposition (needs filled in before D/C Order can be placed): Home, Self Care Charges/Coding Visit Charges Inpatient E&M: 88325 Disch Hosp >30min 01/14/23 1115 <Electronically signed by Pa Wilson DO> Cosigner Signature (if applicable): CC: Dr. Pa Wilson DO; Dr. Art Ureña MD~ Signed [facility] Work Phone: 1(208) 581-358307-12-2023 Discharge summary Author Pa Wilson [facility] January 14, 2023 11:13am Note Date/Time January 14, 2023 11:0 7am [facility] Medical Records Department [address] [place] [address] Instructions for Home/Discharge Instructions 01/14/23 1106 MR#: [id number] Acct: [id number] Name: JOAQUIN HENDRICKS Rep #:[id number] : 1950 72 From: Pa Wilson DO PCP: Dr. Art Ureña MD Status:ADM IN Discharge Instructions Diet Discharge Diet: Low fat / Low cholesterol Dressing / Incision Call your doctor if you observe: Shortness of breath Follow Up Care Test Results: Test results from this visit will be discussed in further detail at your follow- up appointment, if applicable. Discharge Plan Admission Admit Date/Time: 01/11/23 04:56 Primary Reason for Your Visit: Asthma exacerbation. Haemophilous influenza pneumonia. Attending Provider: Pa Wilson Primary Care Provider: Art Ureña Consulting Providers: Jerman Vigil; Tere Mariee Discharge Orders/Prescriptions Prescriptions: New levofloxacin 750 mg tablet 750 mg PO Q24H Qty: 4 0RF prednisone 10 mg tablet 10 mg PO DAILY Qty: 60 0RF Rx Instructions: 4 tabs daily x 3d, then 3 tabs daily x 3d, then 2 tabs daily x 3, then 1 tab daily x 3d, then 1/2 tab daily Continued multivitamin Tablet 1 tab PO DAILY (DME) PEP device See Rx Instructions .ROUTE .MEDSUPPLY Qty: 1 0RF Rx Instructions: with training Tezspire 210 mg/1.91 mL (110 mg/mL) pen injector 210 mg subcut Q4W Qty: 1.91 12RF clopidogrel 75 mg tablet 75 mg PO DAILY Qty: 90 3RF ipratropium bromide 42 mcg (0.06 %) spray,non-aerosol 1 spray intranasal BID PRN (Reason: allergies) Rx Instructions: administer into each nostril aspirin 81 mg Tablet,Chewable 81 mg PO BREAKFAST Qty: 90 3RF allopurinol 300 mg tablet 300 mg PO DAILY Qty: 90 3RF cholecalciferol (vitamin D3) 25 mcg (1,000 unit) capsule 25 mcg PO DAILY Qty: 90 3RF Advair HFA 230-21 mcg/actuation HFA aerosol inhaler 2 puff inhalation Q12H Qty: 3 3RF guaifenesin 1,200 mg tablet extended release 12hr 1,200 mg PO Q12H Qty: 60 6RF irbesartan 150 mg tablet 150 mg PO DAILY Qty: 90 3RF lansoprazole [Prevacid] 30 mg capsule,delayed release(DR/EC) 30 mg PO DAILY Qty: 90 3RF loratadine 10 mg tablet 10 mg PO DAILY Qty: 90 3RF montelukast 10 mg tablet 10 mg PO QPM Qty: 90 3RF rosuvastatin 5 mg tablet 2.5 mg PO QODAY Qty: 90 3RF tamsulosin 0.4 mg capsule 0.4 mg PO DAILY Qty: 90 3RF Spiriva Respimat 1.25 mcg/actuation mist 2 puff inhalation DAILY Qty: 3 3RF trazodone 100 mg tablet 100 mg PO QHS PRN (Reason: insomnia) 90 Days Qty: 40 1RF albuterol sulfate [Ventolin HFA] 90 mcg/actuation HFA aerosol inhaler 2 puff inhalation Q4H PRN (Reason: shortness of breath or wheezing) Qty: 18 6RF albuterol sulfate 2.5 mg /3 mL (0.083 %) solution for nebulization 2.5 mg inhalation .COMPLEX Qty: 180 11RF Rx Instructions: 2.5 mg inhaled BID; J45.9 Asthma azelastine-fluticasone 137-50 mcg/spray spray,non-aerosol 1 spray intranasal BID Qty: 23 6RF Rx Instructions: administer into each nostril Discontinued prednisone 10 mg tablet 10 mg PO QODAY Referrals / Follow Up: [facility]monary [facility] [Provider Group] - Within 2 Weeks Art Ureña MD [Primary Care Provider] - Within 2 Weeks Disposition Disposition (needs filled in before D/C Order can be placed): Home, Self Care 01/14/23 1113<Electronically signed by Pa Wilson DO>Pa Wilson DO CC: Dr. Jerman Vigil MD; Dr. Tere Mariee DO; Dr. Art Ureña MD ~ Signed [facility] Work Phone: [phone]) 717-740407-12-2023 Progress note Author Pa Wilson [facility] January 14, 2023 11:06am Note Date/Time January 14, 2023 8:13 am [facility] Medical Records Department [address] [place] [address] Progress Note - Hospitalist 01/14/23811 MR#: [id number] Acct: [id number] Name: JOAQUIN HENDRICKS Rep #:[id number] : 1950 72 From: Pa Wilson DO PCP: Dr. Art Ureña MD Status:ADM IN Location: [place] [address] Reason for Visit Reason for Visit: Diagnoses Chronic obstructive pulmonary disease with (acute) exacerbation (01/11/23) Severe persistent asthma with (acute) exacerbation (01/11/23) Unspecified asthma with (acute) exacerbation (01/11/23) Hypoxemia (01/11/23) Subjective Subjective Breathing well, but issues overnight. Objective Data Objective Data Vital Signs: Vital Signs Temp Pulse Resp BP Pulse Ox O2 Del Method O2 Flow Rate 36.6 C 68 16 138/85 H 96 CPAP 2 01/14/23 03:19 01/14/23 03:19 01/14/23 03:19 01/14/23 03:19 01/14/23 03:19 01/14/23 03:22 01/14/23 03:22 Oxygen Flow Rate (L/min) 2 Oxygen Delivery Method CPAP Weight: 129 kg Body Mass Index (BMI) 40.8 Intake & Output: Intake and Output for Last 24 Hours 01/12/23 01/13/23 01/14/23 23:59 23:59 23:59 Intake Total 1984 1505 / 1505 Output Total 925 / 925 650 / 650 Balance 1060 / 1060 855 / 855 Lab / Micro Data 01/13/23 04:53 01/12/23 05:15 Micro: Microbiology 01/11/23 01:33 Sputum, Expectorated/Coughed Gram Stain - Final 01/11/23 01:33 Sputum, Expectorated/Coughed Respiratory Culture - Final Haemophilus influenzae 01/11/23 14:14 Mucosa - Nose Respiratory Panel (PCR) - Final 01/11/23 12:32 Urine, Random Legionella Antigen - Final 01/11/23 12:32 Urine, Random Streptococcus pneumoniae Antigen (M - Final 01/11/23 01:36 Nasal Secretion SARS-CoV-2 & FLU Antigen (Rapid) - Final Physical Exam Const alert and no apparent distress HEENT head/scalp atraumatic and moist oral mucous membranes Neck no lymphadenopathy Resp normal respiratory effort, no retractions, no use of accessory muscles and clearto auscultation bilaterally Cardio regular rate, regular rhythm, S1 normal heart sound and S2 normal heart sound GI normal to inspection, nondistended, normoactive bowel sounds, soft to palpation,non-tender and non-distended Assessment & Plan Assessment/Plan (1) Asthma exacerbation: QUALIFIERS: Asthma persistence: persistent Asthma severity: severe Qualified Code(s): J45.51 - Severe persistent asthma with (acute) exacerbation PLAN: Incentive spirometer ordered. Scheduled DuoNeb Albuterol as needed Azithromycin and ceftriaxone ordered. Pt takes prednisone 10mg QODay at home. Anticipate slow taper upon discharge. Continue oxygen administration; titrate as needed history. I reviewed records from the pulmonary office from 11/25: Pt w severe, persistent asthma. Has previously failed Nucala. Now on texepelumab-ekko Respiratory panel negative. COVID 19, influenza negative. Strep and legionella negative. SCx pending. CXR reviewed, no definitive infiltrate. Discharge on 01/14 with prednisone taper. Would taper to 5mg daily (had been on 10 QOD) Follow up with pulmonary in next few weeks. (2) Haemophilus influenzae pneumonia: QUALIFIERS: Laterality: unspecified laterality Lung location: unspecified part of lung Qualified Code(s): J14 - Pneumonia due to Hemophilus influenzae PLAN: beta lactamase negative has been on CTX will discharge with levofloxacin for 4 more days to complete 7 days of abx. (3) Hypoxia: PLAN: 2/2 to above. oxygen has been able to be weaned. Normally, does not use oxygen. PLAN: Plan Chronic conditions: * CARMELLA: CPAP QHS * CAD: s/p PCI. continue ASA and clopidogrel * gout: continue allopurinol DVT prophylaxis Subcutaneous Lovenox ordered. 01/14/23 1106 <Electronically signed by Pa Wilson DO> Cosigner Signature (if applicable): CC: ~ Signed [facility] Work Phone: [phone]) 443-615407-11-2023 Progress note Author Pa Wilson [facility] January 13, 2023 9:24am Note Date/Time January 13, 2023 7:29 am [facility] Medical Records Department [address] [place] [address] Progress Note - Hospitalist 01/13/2328 MR#: [id number] Acct: [id number] Name: JOAQUIN HENDRICKS Rep #:[id number] : 1950 72 From: Pa Wilson DO PCP: Dr. Art Ureña MD Status:ADM IN Location: [place] [address] Reason for Visit Reason for Visit: Diagnoses Chronic obstructive pulmonary disease with (acute) exacerbation (01/11/23) Unspecified asthma with (acute) exacerbation (01/11/23) Hypoxemia (01/11/23) Subjective Subjective Breathing better. Coughing up some phlegm. Objective Data Objective Data Vital Signs: Vital Signs Temp Pulse Resp BP Pulse Ox O2 Del Method O2 Flow Rate 36.4 C L 64 18 103/48 L 94 CPAP 2 01/13/23 03:46 01/13/23 03:46 01/13/23 03:46 01/13/23 03:46 01/13/23 03:46 01/13/23 04:23 01/12/23 22:45 Oxygen Flow Rate (L/min) 2 Oxygen Delivery Method CPAP Weight: 129 kg Body Mass Index (BMI) 40.8 Intake & Output: Intake and Output for Last 24 Hours 01/11/23 01/12/23 01/13/23 23:59 23:59 23:59 Intake Total 1115 / 1115 1984 0 / 0 Output Total 925 / 925 650 / 650 Balance 1115 / 1115 1060 / 1060 -650 / -650 Lab / Micro Data 01/13/23 04:53 01/12/23 05:15 Labs: Laboratory Results - last 24 hr 01/13/23 04:53: WBC 12.0 H, RBC 4.24 L, Hgb 12.7 L, Hct 38.5 L, MCV 90.8, MCH 30.0, MCHC 33.0, RDW Std Deviation 52.8 H, RDW Coeff of Yareli 16.0 H, Plt Count 249, MPV 10.4, Immature Gran % (Auto) 1.000 H, Neut % (Auto) 89.4 H, Lymph % (Auto) 5.4 L, [place] % (Auto) 4.0, Eos % (Auto) 0.0, Baso % (Auto) 0.2, Absolute Neuts (auto) 10.7 H, Absolute Lymphs (auto) 0.64 L, Nucleated RBC % 0 Micro: Microbiology 01/11/23 01:33 Sputum, Expectorated/Coughed Gram Stain - Final 01/11/23 01:33 Sputum, Expectorated/Coughed Respiratory Culture - Preliminary 01/11/23 14:14 Mucosa - Nose Respiratory Panel (PCR) - Final 01/11/23 12:32 Urine, Random Legionella Antigen - Final 01/11/23 12:32 Urine, Random Streptococcus pneumoniae Antigen (M - Final 01/11/23 01:36 Nasal Secretion SARS-CoV-2 & FLU Antigen (Rapid) - Final Physical Exam Const alert and no apparent distress HEENT head/scalp atraumatic and moist oral mucous membranes Resp Resp Narrative: coarse breath sounds bilaterally. Cardio regular rate, regular rhythm, S1 normal heart sound and S2 normal heart sound Extremity normal to inspection Assessment & Plan Assessment/Plan (1) Asthma exacerbation: QUALIFIERS: Asthma persistence: persistent Asthma severity: severe Qualified Code(s): J45.51 - Severe persistent asthma with (acute) exacerbation PLAN: Incentive spirometer ordered. Scheduled DuoNeb Albuterol as needed Azithromycin and ceftriaxone ordered. Pt takes prednisone 10mg QODay at home. Anticipate slow taper upon discharge. Continue oxygen administration; titrate as needed history. Cut methypred to BID. If tolerates, hopefully we can discharge on 01/14 with prednisone taper. Would taper to 5mg daily (had been on 10 QOD) I reviewed records from the pulmonary office from 11/25: Pt w severe, persistent asthma. Has previously failed Nucala. Now on texepelumab-ekko Respiratory panel negative. COVID 19, influenza negative. Strep and legionella negative. SCx pending. CXR reviewed, no definitive infiltrate. (2) Hypoxia: PLAN: 2/2 to above. oxygen has been able to be weaned. Normally, does not use oxygen. PLAN: Plan Chronic conditions: * CARMELLA: CPAP QHS * CAD: s/p PCI. continue ASA and clopidogrel * gout: continue allopurinol DVT prophylaxis Subcutaneous Lovenox ordered. Charges/Coding Visit Charges Inpatient E&M: 47968 Subs Hosp L2 01/13/23923 <Electronically signed by Pa Wilson DO> Cosigner Signature (if applicable): CC: ~ Signed [facility] Work Phone: [phone]) 523-499707-10-2023 Progress note Author Pa Wilson [facility] January 12, 2023 3:36pm Note Date/Time January 12, 2023 8:36 am [facility] Medical Records Department [address] [place] [id number] Progress Note - Hospitalist 01/12/23 0835 MR#: [id number] Acct: [id number] Name: JOAQUIN HENDRICKS Rep #:[id number] : 1950 72 From: Pa Wilson DO PCP: Dr. Art Ureña MD Status:ADM IN Location: [place] [address] Reason for Visit Reason for Visit: Diagnoses Chronic obstructive pulmonary disease with (acute) exacerbation (01/11/23) Hypoxemia (01/11/23) Subjective Subjective Began getting short of breath right before returning to [place] from [place]. States that his son, who also went on the trip, has recently gotten a sore throat. Objective Data Objective Data Vital Signs: Vital Signs Temp Pulse Resp BP Pulse Ox O2 Del Method O2 Flow Rate 36.6 C 66 18 130/84 H 94 CPAP 5 01/12/23 04:14 01/12/23 07:23 01/12/23 07:23 01/12/23 04:14 01/12/23 07:23 01/12/23 07:23 01/12/23 07:23 Oxygen Flow Rate (L/min) 5 Oxygen Delivery Method CPAP Weight: 129 kg Body Mass Index (BMI) 40.8 Intake & Output: Intake and Output for Last 24 Hours 01/10/23 01/11/23 01/12/23 23:59 23:59 23:59 Intake Total 1115 / 1115 Balance 1115 / 1115 Lab / Micro Data 01/12/23 05:15 01/12/23 05:15 Labs: Laboratory Results - last 24 hr 01/12/23 05:15: WBC 15.0 H, RBC 4.42 L, Hgb 12.7 L, Hct 39.9 L, MCV 90.3, MCH 28.7, MCHC 31.8 L, RDW Std Deviation 52.5 H, RDW Coeff of Yareli 15.8 H, Plt Count 231, MPV 10.4, Immature Gran % (Auto) 0.900, Neut % (Auto) 88.8 H, Lymph % (Auto) 5.7 L, [place] % (Auto) 4.5, Eos % (Auto) 0.0, Baso % (Auto) 0.1, Absolute Neuts (auto) 13.4 H, Absolute Lymphs (auto) 0.86, Nucleated RBC % 0, Sodium 137,Potassium 4.2, Chloride 106, Carbon Dioxide 26.0, Anion Gap 5, BUN 23 H, Creatinine 0.97, Estim Creat Clear Calc 72.12, Est GFR (MDRD) Af Amer 98, Est GFR (MDRD) Non-Af 81, BUN/Creatinine Ratio 23.7 H, Glucose 153 H, Calcium 9.5 Micro: Microbiology 01/11/23 14:14 Mucosa - Nose Respiratory Panel (PCR) - Final 01/11/23 12:32 Urine, Random Legionella Antigen - Final 01/11/23 12:32 Urine, Random Streptococcus pneumoniae Antigen (M - Final 01/11/23 01:33 Sputum, Expectorated/Coughed Gram Stain - Final 01/11/23 01:36 Nasal Secretion SARS-CoV-2 & FLU Antigen (Rapid) - Final Physical Exam Const alert and no apparent distress HEENT head/scalp atraumatic and moist oral mucous membranes Resp normal respiratory effort, no retractions, no use of accessory muscles and clearto auscultation bilaterally Cardio regular rate, regular rhythm, S1 normal heart sound and S2 normal heart sound GI normal to inspection, nondistended, normoactive bowel sounds, soft to palpation,non-tender and non-distended Extremity normal to inspection and full ROM Assessment & Plan Assessment/Plan (1) Asthma exacerbation: PLAN: Incentive spirometer ordered. Scheduled DuoNeb Albuterol as needed Solu-Medrol [id number] ordered. Azithromycin and ceftriaxone ordered. Pt takes prednisone 10mg QODay at home. Anticipate slow taper upon discharge. Continue oxygen administration; titrate as needed history. I reviewed records from the pulmonary office from 11/25: Pt w severe, persistent asthma. Has previously failed Nucala. Now on texepelumab-ekko Respiratory panel negative. COVID 19, influenza negative. Strep and legionella negative. SCx pending. CXR reviewed, no definitive infiltrate. (2) Hypoxia: PLAN: 08/07 to above. oxygen has been able to be weaned. Normally, does not use oxygen. PLAN: Plan Chronic conditions: * CARMELLA * CAD: s/p PCI. continue ASA and clopidogrel * gout: continue allopurinol DVT prophylaxis Subcutaneous Lovenox ordered. Greater than 50 minutes of which greater than 50% of time was counseling patientabout his breathing issues, work-up, pending work-up. Charges/Coding Visit Charges Inpatient E&M: 59993 [facility] Hosp 01/12/23 1536 <Electronically signed by Pa Wilson DO> Cosigner Signature (if applicable): CC: ~ Signed [facility] Work Phone: [phone]) 243-252707-09-2023 History and physical note Author Jerman Vigil [facility] January 11, 2023 10:41am Note Date/Time January 11, 2023 10:32 am [facility] Medical Records Department [address] [place] [id number] H&P Exam - Hospitalist 01/11/23 1024 MR#: [id number] Acct: [id number] Name: JOAQUIN HENDRICKS Rep #:[id number] : 1950 72 From: Jerman Vigil MD PCP: Dr. Art Ureña MD Status:ADM [facility] - General General Date of Admission: 01/11/23 HPI Narrative JOAQUIN HENDRICKS, is a 72 M with a significant history of COPD who is on as needed oxygen that he hardly uses presenting to the emergency department with increaseddyspnea. Associated with his symptoms is productive cough. At the emergency department patient was requiring 6 L of nasal cannula oxygen even at that time his oxygen saturation was about 86%. [facility] Medical History Abnormal bruising Arthritis Asthma Asthmatic bronchitis with acute exacerbation Atherosclerosis of coronary artery of ak chin heart without angina pectoris Bilateral lower extremity edema BPH (benign prostatic hyperplasia) Cataract Cataracts, bilateral Chronic cough Chronic sinusitis Cough COVID-19 DDD (degenerative disc disease) Easy bruising Epithelial inclusion cyst Essential hypertension Fatigue Flu vaccine need GERD (gastroesophageal reflux disease) Gout Hay fever Hemorrhoids Hemorrhoids History of left heart catheterization Hyperlipidemia Insomnia Lung disease Morbid obesity Multiple ecchymoses of both upper arms Obesity (BMI 30-39.9) CARMELLA (obstructive sleep apnea) PND (post-nasal drip) Pre-diabetes Recurrent kidney stones Recurrent pneumonia Shortness of breath Skin tear of right elbow without complication Umbilical hernia URI (upper respiratory infection) Home Medications multivitamin 1 tab PO DAILY 09/19/20 [History Last Taken Unknown] PEP device #1 ea 06/12/22 [Rx Last Taken Unknown] allopurinol 300 mg tablet 300 mg PO DAILY #90 tabs 07/16/22 [Rx Last Taken Unknown] cholecalciferol (vitamin D3) 25 mcg (1,000 unit) capsule 25 mcg PO DAILY #90 caps 07/16/22 [Rx Last Taken Unknown] fluticasone propionate 230 mcg-salmeterol 21 mcg/actuation HFA inhaler (Advair HFA) 2 puff inhalation Q12H #3 ea 07/16/22 [Rx Last Taken Unknown] guaifenesin 1,200 mg tablet, extended release 12 hr 1,200 mg PO Q12H #60 tabs 07/16/22 [Rx Last Taken Unknown] irbesartan 150 mg tablet 150 mg PO DAILY #90 tabs 07/16/22 [Rx Last Taken Unknown] lansoprazole 30 mg capsule,delayed release (Prevacid) 30 mg PO DAILY #90 caps 07/16/22 [Rx Last Taken Unknown] loratadine 10 mg tablet 10 mg PO DAILY #90 tabs 07/16/22 [Rx Last Taken Unknown] montelukast 10 mg tablet 10 mg PO QPM #90 tabs 07/16/22 [Rx Last Taken Unknown] rosuvastatin 5 mg tablet 2.5 mg (1/2 x 5 mg) PO QODAY #90 tabs 07/16/22 [Rx Last Taken Unknown] tamsulosin 0.4 mg capsule 0.4 mg PO DAILY #90 caps 07/16/22 [Rx Last Taken Unknown] tiotropium bromide 1.25 mcg/actuation mist for inhalation (Spiriva Respimat) 2 puff inhalation DAILY #3 ea 07/16/22 [Rx Last Taken Unknown] trazodone 100 mg tablet 100 mg PO QHS PRN insomnia 90 days #40 tabs 07/16/22 [Rx Last Taken Unknown] albuterol sulfate 90 mcg/actuation aerosol inhaler (Ventolin HFA) 2 puff inhalation Q4H PRN shortness of breath or wheezing #18 grams 07/17/22 [Rx Last Taken Unknown] aspirin 81 mg chewable tablet 81 mg PO BREAKFAST #90 tabs 08/15/22 [Rx Last Taken Unknown] albuterol sulfate 2.5 mg/3 mL (0.083 %) solution for nebulization 2.5 mg (3 mL) inhalation .COMPLEX Sob &/Or Wheezing #180 mL 09/24/22 [Rx Last Taken Unknown] azelastine-fluticasone 137 mcg-50 mcg/spray nasal spray 1 spray intranasal BID #23 grams 10/06/22 [Rx Last Taken Unknown] clopidogrel 75 mg tablet 75 mg PO DAILY #90 tabs 10/10/22 [Rx Last Taken Unknown] ipratropium bromide 42 mcg (0.06 %) nasal spray 1 spray intranasal BID PRN allergies 11/12/22 [History Last Taken Unknown] tezepelumab-ekko 210 mg/1.91 mL (110 mg/mL) subcutaneous pen injector (Tezspire)210 mg (1.91 mL) subcut Q4W #1.91 mL 11/28/22 [Rx Last Taken Unknown] prednisone 10 mg tablet 10 mg PO QODAY 01/10/23 [History Last Taken Unknown] Allergy/AdvReac Type Severity Reaction Status Date / Time lisinopril AdvReac Intermediate cough Verified 01/10/23 23:34 simvastatin AdvReac Intermediate elevated Verified 01/10/23 23:34 liver enzymes Family History Father Cancer Bone Marrow Surgical History History of cataract extraction History of cataract extraction History of coronary artery stent placement (08/14/22) History of coronary artery stent placement History of lumbar discectomy History of orthopedic surgery History of tonsillectomy History of tonsillectomy History of uvulectomy History of uvulectomy S/P correction of deviated nasal septum Social History household members: spouse housing: house Smoking Status: Never smoker alcohol intake: current alcohol intake frequency: a few times a month Alcohol type: beer and wine substance use type: does not use what type of physical activity do you participate in: none ROS ROS Narrative Pertinent positives and pertinent negatives as noted in HPI. All other systems were reviewed and are negative Vital Signs Vital Signs Vital Signs: 01/10/23 23:32 01/10/23 23:56 01/11/23 01:43 Temperature 97.3 F L Temperature Source Temporal Pulse Rate 77 80 Respiratory Rate 18 20 H Respiratory Effort Normal Non-Labored Respiratory Depth Normal Respiratory Pattern Normal Blood Pressure 152/73 H 136/68 H Blood Pressure Mean 99 90 Blood Pressure Source Blood Pressure Position Blood Pressure Location Pulse Ox 91 96 Oxygen Delivery Method Room Air Room Air Room Air Oxygen Flow Rate (L/min) 01/11/23 01:33 01/11/23 02:22 01/11/23 02:23 Temperature 98.9 F Temperature Source Oral Pulse Rate 93 102 H Respiratory Rate 18 16 Respiratory Effort Respiratory Depth Respiratory Pattern Blood Pressure 159/72 H Blood Pressure Mean 101 Blood Pressure Source Blood Pressure Position Blood Pressure Location Pulse Ox 87 89 Oxygen Delivery Method Room Air Nasal Cannula Oxygen Flow Rate (L/min) 3 01/11/23 02:54 01/11/23 03:10 01/11/23 03:17 Temperature Temperature Source Pulse Rate 101 H Respiratory Rate Respiratory Effort Respiratory Depth Respiratory Pattern Blood Pressure Blood Pressure Mean Blood Pressure Source Blood Pressure Position Blood Pressure Location Pulse Ox 92 87 91 Oxygen Delivery Method Nasal Cannula Nasal Cannula Nasal Cannula Oxygen Flow Rate (L/min) 3 3 4 01/11/23 03:00 01/11/23 05:18 01/11/23 07:29 Temperature 98.9 F 97.9 F 97.8 F Temperature Source Oral Temporal Temporal Pulse Rate 98 87 75 Respiratory Rate 18 22 H 22 H Respiratory Effort Respiratory Depth Respiratory Pattern Blood Pressure 131/70 H 131/69 H 142/78 H Blood Pressure Mean 90 89 99 Blood Pressure Source Monitor Blood Pressure Position Semi-Fowlers Blood Pressure Location Right Arm Pulse Ox 90 91 95 Oxygen Delivery Method Nasal Cannula Nasal Cannula Nasal Cannula Oxygen Flow Rate (L/min) 6 6 6 01/11/23 07:58 Temperature Temperature Source Pulse Rate Respiratory Rate Respiratory Effort Normal Non-Labored Respiratory Depth Normal Respiratory Pattern Normal Blood Pressure Blood Pressure Mean Blood Pressure Source Blood Pressure Position Blood Pressure Location Pulse Ox Oxygen Delivery Method Nasal Cannula Oxygen Flow Rate (L/min) 6 Weight Weight: 129 kg Body Mass Index (BMI) 40.8 Physical Exam Narrative Physical exam: General: Well-nourished, well-developed. Head: Normocephalic, atraumatic, no tenderness Eyes: Vision is grossly intact. EOMI ENT, no trauma, moist mucous membranes, no rhinorrhea Neck: Nontender, No thyromegaly. CVS: Regular rate and rhythm. S1-S2 present. No murmur, gallop or rub. Respiratory : Diminished, chest wall nontender Abdomen: Soft, nontender, nondistended, normal bowel sounds, no masses : Deferred Back: Nontender, no CVA tenderness, no midline spinal tenderness, deformities, step-offs Extremities: Nontender full range of motion, no trauma Skin: Normal color, no trauma, abrasions Neuro: Alert, oriented, cranial nerves II through XII grossly intact. Psychiatry: Normal mood. Normal affect. Not depressed. Not anxious. Results Lab / Micro Data 01/11/23 01:36 01/11/23 01:36 Labs: Laboratory Results - last 24 hr 01/11/23 01:36: WBC 13.6 H, RBC 4.38 L, Hgb 12.7 L, Hct 40.2, MCV 91.8, MCH 29.0, MCHC 31.6 L, RDW Std Deviation 55.1 H, RDW Coeff of Yareli 16.3 H, Plt Count 200, MPV 9.5, Immature Gran % (Auto) 0.600, Neut % (Auto) 80.8 H, Lymph % (Auto)9.8 L, [place] % (Auto) 8.3, Eos % (Auto) 0.1, Baso % (Auto) 0.4, Absolute Neuts (auto) 11.0 H, Absolute Lymphs (auto) 1.33, Nucleated RBC % 0, Sodium 141, Potassium 3.8, Chloride 108 H, Carbon Dioxide 28.0, Anion Gap 5, BUN 18, Creatinine 1.05, Estim Creat Clear Calc 66.63, Est GFR (MDRD) Af Amer 90, Est GFR (MDRD) Non-Af 74, BUN/Creatinine Ratio 17.1, Glucose 116 H, Calcium 9.2, Total Bilirubin 1.10 H, AST 38 H, ALT 34, Alkaline Phosphatase 86, Troponin I High Sens 5, B-Natriuretic Peptide 15.8, Total Protein 6.6, Albumin 3.3, Globulin 3.3, Albumin/Globulin Ratio 1.0 Micro: Microbiology 01/11/23 01:33 Sputum, Expectorated/Coughed Gram Stain - Preliminary 01/11/23 01:36 Nasal Secretion SARS-CoV-2 & FLU Antigen (Rapid) - Final Radiology Impression Chest X-Ray 01/11/23 01:50 IMPRESSION: Mild right basilar airspace disease. Findings may indicate atelectasis or infection. Electronically Signed: Harjinder Garcia MD at 2:25 EDT , Assessment & Plan Assessment/Plan (1) COPD exacerbation: (2) Hypoxia: PLAN: Plan Acute COPD with hypoxia/pneumonia Impression ochest x-ray by radiologist:Mild right basilar airspace disease. Findings may indicate atelectasis or infection. CXR independently was interpreted and I agree with radiology interpretation. Patient with mild leukocytosis and, rule out pneumonia although consent area looks triangular and could be atelectasis. Incentive spirometer ordered. Scheduled DuoNeb Albuterol as needed Solu-Medrol [id number] ordered. Azithromycin and ceftriaxone ordered. Continue oxygen administration; titrate as needed history. Monitor BMP and CBC DVT prophylaxis Subcutaneous Lovenox ordered. Time spent in the patient's overall evaluation,decision-making process, review of diagnostic data, adjustment of management, discussion with other providers, nursing nursing and ancillary staff involved in patient's care documentation, 44minutes Charges/Coding Visit Charges Inpatient E&M: 22369 Init Hosp L2 01/11/23 1041 <Electronically signed by Jerman iVgil MD> Cosigner Signature (if applicable): CC: Dr. Jerman Vigil MD; Dr. Art Ureña MD~ Signed [facility] Work Phone: [phone]) 167-549007-09-2023 Progress note Author Tere Mariee [facility] January 11, 2023 8:13am Note Date/Time January 11, 2023 8:13a m [facility] Medical Records Department [address] [place] [address] Progress Note - Hospitalist 01/11/23 0803 MR#: [id number] Acct: [id number] Name: JOAQUIN HENDRICKS Rep #:[id number] : 1950 72 From: Tere Mariee DO PCP: Dr. Art Ureña MD Status:ADM IN Location: [place] [address] Hospitalist Note Mr. Hendricks is a 72-year-old white male who presented to the emergency department at [facility] early this morning with cough. He reported he hasa history of chronic bronchitis and indicated he was having a 2-day history of increased sputum production and cough with slight dyspnea. He denied fever or chills. No chest pain or back pain and he denied any lower extremity swelling. He has a history of asthma and obstructive sleep apnea as well as morbid obesity. He does have history of asthma exacerbations and it appears his last 1was treated as an outpatient at the end of November. He follows with Dr. Theodore. Luiz wears CPAP with 16 cm of water while sleeping. He has no history of tobacco abuse. Vital signs on presentation showed a temperature of 98.9, heart rate 102, blood pressure was 159/72, respiratory rate was 16 and oxygen saturations were 97% on room air. He was uptitrated to 3 L and then required further up titration as he desatted on 3 L to 87 on 3 L and subsequently has notbeen increased to 6 L. He is currently satting 95% on 6 L nasal cannula and appears stable. His CBC showed a leukocytosis with a left shift having a white count of 13.6 and a neutrophilia at 80.8%. His chemistry panel was unremarkable. Flu and COVID were negative the emergency department. Sputum culture has been sent. He has been placed on ceftriaxone and was given 1 dose of azithromycin the emergency department. I will check strep pneumo and Legionella antigens and reinitiate azithromycin to cover atypical pneumonia until we have further results. Check a viral PCR. We will continue pulmonary toilet, incentive spirometry, add Pep therapy with Acapella, IV steroids and antibiotics as above. Wean oxygen as able. Patient is not oxygen dependent at baseline. Diagnoses: Acute exacerbation of asthma Possible community-acquired pneumonia Obstructive sleep apnea Asthma Morbid obesity History of gout CAD with history of PCI Hypertension Hyperlipidemia GERD Seasonal allergies next BPH Insomnia Insulin resistance 01/11/23 0813 <Electronically signed by Tere Mariee DO> Cosigner Signature (if applicable): CC: ~ Signed [facility] Work Phone: [phone]) 162-927007-09-2023 Discharge summary Author Josiah Rushing [facility] January 11, 2023 3:06am Note Date/Time January 11, 2023 1:43a m [facility] Medical Records Department [address] [place] [address] Emergency Department Summary 01/11/23 MR#: [id number] Acct: [id number] Name: JOAQUIN HENDRICKS Rep #:[id number] : 1950 72 From: Josiah Rushing MD PCP: Dr. Art Ureña MD Status:REG ER Location: ED HPI History of Present Illness Chief Complaint: Cough Narrative Narrative: Patient has a history of chronic bronchitis, he is presenting with 2-day historyof increased sputum production cough and some slight dyspnea. No fevers or chills no abdominal pain. He is denying any chest pain or back pain. No pleuritic component. No lower extremity edema. [facility] Medical History Abnormal bruising Arthritis Asthma Asthmatic bronchitis with acute exacerbation Atherosclerosis of coronary artery of ak chin heart without angina pectoris Bilateral lower extremity edema BPH (benign prostatic hyperplasia) Cataract Cataracts, bilateral Chronic cough Chronic sinusitis Cough COVID-19 DDD (degenerative disc disease) Easy bruising Epithelial inclusion cyst Essential hypertension Fatigue Flu vaccine need GERD (gastroesophageal reflux disease) Gout Hay fever Hemorrhoids Hemorrhoids History of left heart catheterization Hyperlipidemia Insomnia Lung disease Morbid obesity Multiple ecchymoses of both upper arms Obesity (BMI 30-39.9) CARMELLA (obstructive sleep apnea) PND (post-nasal drip) Pre-diabetes Recurrent kidney stones Recurrent pneumonia Shortness of breath Skin tear of right elbow without complication Umbilical hernia URI (upper respiratory infection) Home Medications multivitamin 1 tab PO DAILY 09/19/20 [History Last Taken Unknown] PEP device #1 ea 06/12/22 [Rx Last Taken Unknown] allopurinol 300 mg tablet 300 mg PO DAILY #90 tabs 07/16/22 [Rx Last Taken Unknown] cholecalciferol (vitamin D3) 25 mcg (1,000 unit) capsule 25 mcg PO DAILY #90 caps 07/16/22 [Rx Last Taken Unknown] fluticasone propionate 230 mcg-salmeterol 21 mcg/actuation HFA inhaler (Advair HFA) 2 puff inhalation Q12H #3 ea 07/16/22 [Rx Last Taken Unknown] guaifenesin 1,200 mg tablet, extended release 12 hr 1,200 mg PO Q12H #60 tabs 07/16/22 [Rx Last Taken Unknown] irbesartan 150 mg tablet 150 mg PO DAILY #90 tabs 07/16/22 [Rx Last Taken Unknown] lansoprazole 30 mg capsule,delayed release (Prevacid) 30 mg PO DAILY #90 caps 07/16/22 [Rx Last Taken Unknown] loratadine 10 mg tablet 10 mg PO DAILY #90 tabs 07/16/22 [Rx Last Taken Unknown] montelukast 10 mg tablet 10 mg PO QPM #90 tabs 07/16/22 [Rx Last Taken Unknown] rosuvastatin 5 mg tablet 2.5 mg (1/2 x 5 mg) PO QODAY #90 tabs 07/16/22 [Rx Last Taken Unknown] tamsulosin 0.4 mg capsule 0.4 mg PO DAILY #90 caps 07/16/22 [Rx Last Taken Unknown] tiotropium bromide 1.25 mcg/actuation mist for inhalation (Spiriva Respimat) 2 puff inhalation DAILY #3 ea 07/16/22 [Rx Last Taken Unknown] trazodone 100 mg tablet 100 mg PO QHS PRN insomnia 90 days #40 tabs 07/16/22 [Rx Last Taken Unknown] albuterol sulfate 90 mcg/actuation aerosol inhaler (Ventolin HFA) 2 puff inhalation Q4H PRN shortness of breath or wheezing #18 grams 07/17/22 [Rx Last Taken Unknown] aspirin 81 mg chewable tablet 81 mg PO BREAKFAST #90 tabs 08/15/22 [Rx Last Taken Unknown] albuterol sulfate 2.5 mg/3 mL (0.083 %) solution for nebulization 2.5 mg (3 mL) inhalation .COMPLEX Sob &/Or Wheezing #180 mL 09/24/22 [Rx Last Taken Unknown] azelastine-fluticasone 137 mcg-50 mcg/spray nasal spray 1 spray intranasal BID #23 grams 10/06/22 [Rx Last Taken Unknown] clopidogrel 75 mg tablet 75 mg PO DAILY #90 tabs 10/10/22 [Rx Last Taken Unknown] ipratropium bromide 42 mcg (0.06 %) nasal spray 1 spray intranasal BID PRN allergies 11/12/22 [History Last Taken Unknown] tezepelumab-ekko 210 mg/1.91 mL (110 mg/mL) subcutaneous pen injector (Tezspire)210 mg (1.91 mL) subcut Q4W #1.91 mL 11/28/22 [Rx Last Taken Unknown] prednisone 10 mg tablet 10 mg PO QODAY 01/10/23 [History Last Taken Unknown] Allergy/AdvReac Type Severity Reaction Status Date / Time lisinopril AdvReac Intermediate cough Verified 01/10/23 23:34 simvastatin AdvReac Intermediate elevated Verified 01/10/23 23:34 liver enzymes Family History Father Cancer Bone Marrow Surgical History History of cataract extraction History of cataract extraction History of coronary artery stent placement (08/14/22) History of coronary artery stent placement History of lumbar discectomy History of orthopedic surgery History of tonsillectomy History of tonsillectomy History of uvulectomy History of uvulectomy S/P correction of deviated nasal septum Social History household members: spouse housing: house Smoking Status: Never smoker alcohol intake: current alcohol intake frequency: a few times a month Alcohol type: beer and wine substance use type: does not use what type of physical activity do you participate in: none ROS ROS ED ROS Narrative Past medical history: Reviewed Medications: Reviewed Social history: Noncontributory Review of systems: General: No fever Eyes: No visual changes ENT: No upper airway congestion, normal voice Neck: No neck pain Cardiovascular: No chest pain Respiratory: As in HPI Gastrointestinal: No abdominal pain, nausea vomiting or diarrhea Genitourinary: No dysuria Musculoskeletal: Denies myalgias no difficulty with ambulation Skin: No rash EXAM Physical Exam Narrative Exam Narrative: Physical exam General: Patient appears somewhat uncomfortable Head: Normocephalic, Atraumatic Eyes: Conjunctiva not pale ENT: Moist mucous membranes Neck: Supple, Nontender, No lymphadenopathy Cardiovascular: Regular rate, Regular rhythm Respiratory: Speaks in full sentences, he has mostly bronchial breath sounds I do not appreciate significant wheezing. He coughs every time he takes a deep breath. Abdomen: Soft, Nontender, Nondistended Back: Nontender, Normal Inspection. Negative for: CVA tenderness Extremities: Nontender, No edema Skin: Normal color, No rash Const Vital Signs: 01/10/23 23:32 01/10/23 23:56 01/11/23 01:43 Temperature 97.3 F L Temperature Source Temporal Pulse Rate 77 80 Respiratory Rate 18 20 H Respiratory Effort Normal Non-Labored Respiratory Depth Normal Respiratory Pattern Normal Blood Pressure 152/73 H 136/68 H Blood Pressure Mean 99 90 Pulse Ox 91 96 Oxygen Delivery Method Room Air Room Air Room Air Oxygen Flow Rate (L/min) 01/11/23 01:33 01/11/23 02:22 01/11/23 02:23 Temperature 98.9 F Temperature Source Oral Pulse Rate 93 102 H Respiratory Rate 18 16 Respiratory Effort Respiratory Depth Respiratory Pattern Blood Pressure 159/72 H Blood Pressure Mean 101 Pulse Ox 87 89 Oxygen Delivery Method Room Air Nasal Cannula Oxygen Flow Rate (L/min) 3 01/11/23 02:54 Temperature Temperature Source Pulse Rate 101 H Respiratory Rate Respiratory Effort Respiratory Depth Respiratory Pattern Blood Pressure Blood Pressure Mean Pulse Ox 92 Oxygen Delivery Method Nasal Cannula Oxygen Flow Rate (L/min) 3 MDM MDM MDM Narrative Medical decision making narrative: EKG interpretation Normal sinus rhythm with a rate of 72. Normal VA and QTc intervals. No ischemic changes Interpreted by emergency doctor Chest x-ray interpreted by me does not show any pneumonia. MDM: Per radiologist patient has atelectasis which could be a pneumonia, however I donot see 1 on x-ray regardless the patient's sputum that I saw myself is green and thick therefore antibiotics are ordered. Patient is given nebulizers Solu-Medrol and antibiotics, I reevaluated him he is still hypoxic on room air he is 85%. Nasal cannula was placed and now he is 89 to 90% and feels more comfortable. Because of the oxygen demand patient will be admitted. Sputum cultures were sent. Lab Data Labs: Laboratory Results - last 24 hr 01/11/23 01:36 WBC 13.6 H RBC 4.38 L Hgb 12.7 L Hct 40.2 MCV 91.8 MCH 29.0 MCHC 31.6 L RDW Std Deviation 55.1 H RDW Coeff of Yareli 16.3 H Plt Count 200 MPV 9.5 Immature Gran % (Auto) 0.600 Neut % (Auto) 80.8 H Lymph % (Auto) 9.8 L [place] % (Auto) 8.3 Eos % (Auto) 0.1 Baso % (Auto) 0.4 Absolute Neuts (auto) 11.0 H Absolute Lymphs (auto) 1.33 Nucleated RBC % 0 Sodium 141 Potassium 3.8 Chloride 108 H Carbon Dioxide 28.0 Anion Gap 5 BUN 18 Creatinine 1.05 Estim Creat Clear Calc 66.63 Est GFR (MDRD) Af Amer 90 Est GFR (MDRD) Non-Af 74 BUN/Creatinine Ratio 17.1 Glucose 116 H Calcium 9.2 Total Bilirubin 1.10 H AST 38 H ALT 34 Alkaline Phosphatase 86 Troponin I High Sens 5 B-Natriuretic Peptide 15.8 Total Protein 6.6 Albumin 3.3 Globulin 3.3 Albumin/Globulin Ratio 1.0 Radiography Diagnostic Testing: Clinical Impression(s) from Imaging Studies Chest X-Ray 01/11/23 01:50 IMPRESSION: Mild right basilar airspace disease. Findings may indicate atelectasis or infection. Electronically Signed: Harjinder Garcia MD at 2:25 EDT , Discharge Plan Triage Chief Complaint: Cough ED Provider: Josiah Rushing Dx/Rx/DC Orders Clinical Impression: Eosinophilia, Chronic cough, Acute bronchitis, Hypoxia, Asthma Prescriptions: No Action multivitamin Tablet 1 tab PO DAILY (DME) PEP device See Rx Instructions .ROUTE .MEDSUPPLY Qty: 1 0RF Rx Instructions: with training Tezspire 210 mg/1.91 mL (110 mg/mL) pen injector 210 mg subcut Q4W Qty: 1.91 12RF clopidogrel 75 mg tablet 75 mg PO DAILY Qty: 90 3RF ipratropium bromide 42 mcg (0.06 %) spray,non-aerosol 1 spray intranasal BID PRN (Reason: allergies) Rx Instructions: administer into each nostril aspirin 81 mg Tablet,Chewable 81 mg PO BREAKFAST Qty: 90 3RF prednisone 10 mg tablet 10 mg PO QODAY allopurinol 300 mg tablet 300 mg PO DAILY Qty: 90 3RF cholecalciferol (vitamin D3) 25 mcg (1,000 unit) capsule 25 mcg PO DAILY Qty: 90 3RF Advair HFA 230-21 mcg/actuation HFA aerosol inhaler 2 puff inhalation Q12H Qty: 3 3RF guaifenesin 1,200 mg tablet extended release 12hr 1,200 mg PO Q12H Qty: 60 6RF irbesartan 150 mg tablet 150 mg PO DAILY Qty: 90 3RF lansoprazole [Prevacid] 30 mg capsule,delayed release(DR/EC) 30 mg PO DAILY Qty: 90 3RF loratadine 10 mg tablet 10 mg PO DAILY Qty: 90 3RF montelukast 10 mg tablet 10 mg PO QPM Qty: 90 3RF rosuvastatin 5 mg tablet 2.5 mg PO QODAY Qty: 90 3RF tamsulosin 0.4 mg capsule 0.4 mg PO DAILY Qty: 90 3RF Spiriva Respimat 1.25 mcg/actuation mist 2 puff inhalation DAILY Qty: 3 3RF trazodone 100 mg tablet 100 mg PO QHS PRN (Reason: insomnia) 90 Days Qty: 40 1RF albuterol sulfate [Ventolin HFA] 90 mcg/actuation HFA aerosol inhaler 2 puff inhalation Q4H PRN (Reason: shortness of breath or wheezing) Qty: 18 6RF albuterol sulfate 2.5 mg /3 mL (0.083 %) solution for nebulization 2.5 mg inhalation .COMPLEX Qty: 180 11RF Rx Instructions: 2.5 mg inhaled BID; J45.9 Asthma azelastine-fluticasone 137-50 mcg/spray spray,non-aerosol 1 spray intranasal BID Qty: 23 6RF Rx Instructions: administer into each nostril Primary Care Provider: Art Ureña Referrals: Art Ureña MD [Primary Care Provider] - Disposition Disposition: Acute Care Hospital [facility] What to do if you have Problems For any increased pain, shortness of breath, bleeding, nausea or vomiting, chestpain, or any unexpected problems, contact your Primary Care Provider. Call [facility] ([phone]) or report to the closest Emergency Room. Call 911 if necessary. 01/11/23 0306 <Electronically signed by Josiah Rushing MD> Cosigner Signature (if applicable): CC: Dr. Art Ureña MD ~ Signed [facility] Work Phone: [phone] Discharge summary Author Josiah Odellyana [facility] January 11, 2023 3:06am Note Date/Time January 11, 2023 1:43a m [facility] Medical Records Department [address] [place] [address] Emergency Department Summary 01/11/23 MR#: [id number] Acct: [id number] Name: JOAQUIN HENDRICKS Rep #:[id number] : 1950 72 From: Josiah Rushing MD PCP: Dr. Art Ureña MD Status:REG ER Location: ED HPI History of Present Illness Chief Complaint: Cough Narrative Narrative: Patient has a history of chronic bronchitis, he is presenting with 2-day historyof increased sputum production cough and some slight dyspnea. No fevers or chills no abdominal pain. He is denying any chest pain or back pain. No pleuritic component. No lower extremity edema. [facility] Medical History Abnormal bruising Arthritis Asthma Asthmatic bronchitis with acute exacerbation Atherosclerosis of coronary artery of ak chin heart without angina pectoris Bilateral lower extremity edema BPH (benign prostatic hyperplasia) Cataract Cataracts, bilateral Chronic cough Chronic sinusitis Cough COVID-19 DDD (degenerative disc disease) Easy bruising Epithelial inclusion cyst Essential hypertension Fatigue Flu vaccine need GERD (gastroesophageal reflux disease) Gout Hay fever Hemorrhoids Hemorrhoids History of left heart catheterization Hyperlipidemia Insomnia Lung disease Morbid obesity Multiple ecchymoses of both upper arms Obesity (BMI 30-39.9) CARMELLA (obstructive sleep apnea) PND (post-nasal drip) Pre-diabetes Recurrent kidney stones Recurrent pneumonia Shortness of breath Skin tear of right elbow without complication Umbilical hernia URI (upper respiratory infection) Home Medications multivitamin 1 tab PO DAILY 09/19/20 [History Last Taken Unknown] PEP device #1 ea 06/12/22 [Rx Last Taken Unknown] allopurinol 300 mg tablet 300 mg PO DAILY #90 tabs 07/16/22 [Rx Last Taken Unknown] cholecalciferol (vitamin D3) 25 mcg (1,000 unit) capsule 25 mcg PO DAILY #90 caps 07/16/22 [Rx Last Taken Unknown] fluticasone propionate 230 mcg-salmeterol 21 mcg/actuation HFA inhaler (Advair HFA) 2 puff inhalation Q12H #3 ea 07/16/22 [Rx Last Taken Unknown] guaifenesin 1,200 mg tablet, extended release 12 hr 1,200 mg PO Q12H #60 tabs 07/16/22 [Rx Last Taken Unknown] irbesartan 150 mg tablet 150 mg PO DAILY #90 tabs 07/16/22 [Rx Last Taken Unknown] lansoprazole 30 mg capsule,delayed release (Prevacid) 30 mg PO DAILY #90 caps 07/16/22 [Rx Last Taken Unknown] loratadine 10 mg tablet 10 mg PO DAILY #90 tabs 07/16/22 [Rx Last Taken Unknown] montelukast 10 mg tablet 10 mg PO QPM #90 tabs 07/16/22 [Rx Last Taken Unknown] rosuvastatin 5 mg tablet 2.5 mg (1/2 x 5 mg) PO QODAY #90 tabs 07/16/22 [Rx Last Taken Unknown] tamsulosin 0.4 mg capsule 0.4 mg PO DAILY #90 caps 07/16/22 [Rx Last Taken Unknown] tiotropium bromide 1.25 mcg/actuation mist for inhalation (Spiriva Respimat) 2 puff inhalation DAILY #3 ea 07/16/22 [Rx Last Taken Unknown] trazodone 100 mg tablet 100 mg PO QHS PRN insomnia 90 days #40 tabs 07/16/22 [Rx Last Taken Unknown] albuterol sulfate 90 mcg/actuation aerosol inhaler (Ventolin HFA) 2 puff inhalation Q4H PRN shortness of breath or wheezing #18 grams 07/17/22 [Rx Last Taken Unknown] aspirin 81 mg chewable tablet 81 mg PO BREAKFAST #90 tabs 08/15/22 [Rx Last Taken Unknown] albuterol sulfate 2.5 mg/3 mL (0.083 %) solution for nebulization 2.5 mg (3 mL) inhalation .COMPLEX Sob &/Or Wheezing #180 mL 09/24/22 [Rx Last Taken Unknown] azelastine-fluticasone 137 mcg-50 mcg/spray nasal spray 1 spray intranasal BID #23 grams 10/06/22 [Rx Last Taken Unknown] clopidogrel 75 mg tablet 75 mg PO DAILY #90 tabs 10/10/22 [Rx Last Taken Unknown] ipratropium bromide 42 mcg (0.06 %) nasal spray 1 spray intranasal BID PRN allergies 11/12/22 [History Last Taken Unknown] tezepelumab-ekko 210 mg/1.91 mL (110 mg/mL) subcutaneous pen injector (Tezspire)210 mg (1.91 mL) subcut Q4W #1.91 mL 11/28/22 [Rx Last Taken Unknown] prednisone 10 mg tablet 10 mg PO QODAY 01/10/23 [History Last Taken Unknown] Allergy/AdvReac Type Severity Reaction Status Date / Time lisinopril AdvReac Intermediate cough Verified 01/10/23 23:34 simvastatin AdvReac Intermediate elevated Verified 01/10/23 23:34 liver enzymes Family History Father Cancer Bone Marrow Surgical History History of cataract extraction History of cataract extraction History of coronary artery stent placement (08/14/22) History of coronary artery stent placement History of lumbar discectomy History of orthopedic surgery History of tonsillectomy History of tonsillectomy History of uvulectomy History of uvulectomy S/P correction of deviated nasal septum Social History household members: spouse housing: house Smoking Status: Never smoker alcohol intake: current alcohol intake frequency: a few times a month Alcohol type: beer and wine substance use type: does not use what type of physical activity do you participate in: none ROS ROS ED ROS Narrative Past medical history: Reviewed Medications: Reviewed Social history: Noncontributory Review of systems: General: No fever Eyes: No visual changes ENT: No upper airway congestion, normal voice Neck: No neck pain Cardiovascular: No chest pain Respiratory: As in HPI Gastrointestinal: No abdominal pain, nausea vomiting or diarrhea Genitourinary: No dysuria Musculoskeletal: Denies myalgias no difficulty with ambulation Skin: No rash EXAM Physical Exam Narrative Exam Narrative: Physical exam General: Patient appears somewhat uncomfortable Head: Normocephalic, Atraumatic Eyes: Conjunctiva not pale ENT: Moist mucous membranes Neck: Supple, Nontender, No lymphadenopathy Cardiovascular: Regular rate, Regular rhythm Respiratory: Speaks in full sentences, he has mostly bronchial breath sounds I do not appreciate significant wheezing. He coughs every time he takes a deep breath. Abdomen: Soft, Nontender, Nondistended Back: Nontender, Normal Inspection. Negative for: CVA tenderness Extremities: Nontender, No edema Skin: Normal color, No rash Const Vital Signs: 01/10/23 23:32 01/10/23 23:56 01/11/23 01:43 Temperature 97.3 F L Temperature Source Temporal Pulse Rate 77 80 Respiratory Rate 18 20 H Respiratory Effort Normal Non-Labored Respiratory Depth Normal Respiratory Pattern Normal Blood Pressure 152/73 H 136/68 H Blood Pressure Mean 99 90 Pulse Ox 91 96 Oxygen Delivery Method Room Air Room Air Room Air Oxygen Flow Rate (L/min) 01/11/23 01:33 01/11/23 02:22 01/11/23 02:23 Temperature 98.9 F Temperature Source Oral Pulse Rate 93 102 H Respiratory Rate 18 16 Respiratory Effort Respiratory Depth Respiratory Pattern Blood Pressure 159/72 H Blood Pressure Mean 101 Pulse Ox 87 89 Oxygen Delivery Method Room Air Nasal Cannula Oxygen Flow Rate (L/min) 3 01/11/23 02:54 Temperature Temperature Source Pulse Rate 101 H Respiratory Rate Respiratory Effort Respiratory Depth Respiratory Pattern Blood Pressure Blood Pressure Mean Pulse Ox 92 Oxygen Delivery Method Nasal Cannula Oxygen Flow Rate (L/min) 3 MDM MDM MDM Narrative Medical decision making narrative: EKG interpretation Normal sinus rhythm with a rate of 72. Normal VA and QTc intervals. No ischemic changes Interpreted by emergency doctor Chest x-ray interpreted by me does not show any pneumonia. MDM: Per radiologist patient has atelectasis which could be a pneumonia, however I donot see 1 on x-ray regardless the patient's sputum that I saw myself is green and thick therefore antibiotics are ordered. Patient is given nebulizers Solu-Medrol and antibiotics, I reevaluated him he is still hypoxic on room air he is 85%. Nasal cannula was placed and now he is 89 to 90% and feels more comfortable. Because of the oxygen demand patient will be admitted. Sputum cultures were sent. Lab Data Labs: Laboratory Results - last 24 hr 01/11/23 01:36 WBC 13.6 H RBC 4.38 L Hgb 12.7 L Hct 40.2 MCV 91.8 MCH 29.0 MCHC 31.6 L RDW Std Deviation 55.1 H RDW Coeff of Yareli 16.3 H Plt Count 200 MPV 9.5 Immature Gran % (Auto) 0.600 Neut % (Auto) 80.8 H Lymph % (Auto) 9.8 L [place] % (Auto) 8.3 Eos % (Auto) 0.1 Baso % (Auto) 0.4 Absolute Neuts (auto) 11.0 H Absolute Lymphs (auto) 1.33 Nucleated RBC % 0 Sodium 141 Potassium 3.8 Chloride 108 H Carbon Dioxide 28.0 Anion Gap 5 BUN 18 Creatinine 1.05 Estim Creat Clear Calc 66.63 Est GFR (MDRD) Af Amer 90 Est GFR (MDRD) Non-Af 74 BUN/Creatinine Ratio 17.1 Glucose 116 H Calcium 9.2 Total Bilirubin 1.10 H AST 38 H ALT 34 Alkaline Phosphatase 86 Troponin I High Sens 5 B-Natriuretic Peptide 15.8 Total Protein 6.6 Albumin 3.3 Globulin 3.3 Albumin/Globulin Ratio 1.0 Radiography Diagnostic Testing: Clinical Impression(s) from Imaging Studies Chest X-Ray 01/11/23 01:50 IMPRESSION: Mild right basilar airspace disease. Findings may indicate atelectasis or infection. Electronically Signed: Harjinder Garcia MD at 2:25 EDT , Discharge Plan Triage Chief Complaint: Cough ED Provider: Josiah Rushing Dx/Rx/DC Orders Clinical Impression: Eosinophilia, Chronic cough, Acute bronchitis, Hypoxia, Asthma Prescriptions: No Action multivitamin Tablet 1 tab PO DAILY (DME) PEP device See Rx Instructions .ROUTE .MEDSUPPLY Qty: 1 0RF Rx Instructions: with training Tezspire 210 mg/1.91 mL (110 mg/mL) pen injector 210 mg subcut Q4W Qty: 1.91 12RF clopidogrel 75 mg tablet 75 mg PO DAILY Qty: 90 3RF ipratropium bromide 42 mcg (0.06 %) spray,non-aerosol 1 spray intranasal BID PRN (Reason: allergies) Rx Instructions: administer into each nostril aspirin 81 mg Tablet,Chewable 81 mg PO BREAKFAST Qty: 90 3RF prednisone 10 mg tablet 10 mg PO QODAY allopurinol 300 mg tablet 300 mg PO DAILY Qty: 90 3RF cholecalciferol (vitamin D3) 25 mcg (1,000 unit) capsule 25 mcg PO DAILY Qty: 90 3RF Advair HFA 230-21 mcg/actuation HFA aerosol inhaler 2 puff inhalation Q12H Qty: 3 3RF guaifenesin 1,200 mg tablet extended release 12hr 1,200 mg PO Q12H Qty: 60 6RF irbesartan 150 mg tablet 150 mg PO DAILY Qty: 90 3RF lansoprazole [Prevacid] 30 mg capsule,delayed release(DR/EC) 30 mg PO DAILY Qty: 90 3RF loratadine 10 mg tablet 10 mg PO DAILY Qty: 90 3RF montelukast 10 mg tablet 10 mg PO QPM Qty: 90 3RF rosuvastatin 5 mg tablet 2.5 mg PO QODAY Qty: 90 3RF tamsulosin 0.4 mg capsule 0.4 mg PO DAILY Qty: 90 3RF Spiriva Respimat 1.25 mcg/actuation mist 2 puff inhalation DAILY Qty: 3 3RF trazodone 100 mg tablet 100 mg PO QHS PRN (Reason: insomnia) 90 Days Qty: 40 1RF albuterol sulfate [Ventolin HFA] 90 mcg/actuation HFA aerosol inhaler 2 puff inhalation Q4H PRN (Reason: shortness of breath or wheezing) Qty: 18 6RF albuterol sulfate 2.5 mg /3 mL (0.083 %) solution for nebulization 2.5 mg inhalation .COMPLEX Qty: 180 11RF Rx Instructions: 2.5 mg inhaled BID; J45.9 Asthma azelastine-fluticasone 137-50 mcg/spray spray,non-aerosol 1 spray intranasal BID Qty: 23 6RF Rx Instructions: administer into each nostril Primary Care Provider: Art Ureña Referrals: Art Ureña MD [Primary Care Provider] - Disposition Disposition: Acute Care Hospital [facility] What to do if you have Problems For any increased pain, shortness of breath, bleeding, nausea or vomiting, chestpain, or any unexpected problems, contact your Primary Care Provider. Call [facility] ([phone]) or report to the closest Emergency Room. Call 911 if necessary. 01/11/23 0306 <Electronically signed by Josiah Rushing MD> Cosigner Signature (if applicable): CC: Dr. Art Ureña MD ~ Signed [facility] Work Phone: [phone] 843-230602-28-2023 History and physical note Author Dr. Gruber [facility] September 02, 2022 3:12pm Note Date/Time September 02, 2022 3:00pm [facility] [address] [place] [id number] H&P Exam - Wound Care 09/02/22 1451 MR#: [id number] Acct: [id number] Name: JOAQUIN HENDRICKS Rep #:[id number] : 1950 71 From: Aron Sanchez PCP: Dr. Art Ureña MD Status:REG RCR Location: History of Present Illness Date of Service: 09/02/22 Chief Complaint: Skin tear of the right elbow History of Wound: This is a 71-year-old male with multiple pre-existing medical conditions, as listed below. In the last several years, he has noted the development of spontaneous ecchymoses, bruises, and purpura on his upper extremities. For the most part, these occur spontaneously without explanation. These lesions do not occur elsewhere on his body. They frequently unroofed, resulting in superficial ulcerations, which subsequently healed. The patient underwent a coronary angioplasty with stent placement on August 14, 2022, performed at [facility], at which time he sustained a small skintear on the right elbow. He presents at this time for evaluation and management. Subsequent to his recent coronary artery stent placement, he has been on Brilinta. The patient indicates that the lesions often bleed profusely once they have unroofed. He has been using a commercial product called Wound Seal which is an [id number] product to help control the bleeding. It is a hemostatic agent. He has been evaluated by Dr. Johnson, his primary care physician, and Dr. Arteaga, with no resolution to his problem. He is extremely careful in the use of adhesive tape, and has found a silicone tape which appearsto be well-tolerated. [facility] Medical History Abnormal bruising Arthritis Asthma Asthmatic bronchitis with acute exacerbation Atherosclerosis of coronary artery of [place] chin heart without angina pectoris Bilateral lower extremity edema BPH (benign prostatic hyperplasia) Cataract Cataracts, bilateral Chronic cough Chronic sinusitis Cough DDD (degenerative disc disease) Easy bruising Epithelial inclusion cyst Essential hypertension Fatigue Flu vaccine need GERD (gastroesophageal reflux disease) Gout Hay fever Hemorrhoids Hemorrhoids History of left heart catheterization Hyperlipidemia Insomnia Lung disease Morbid obesity Multiple ecchymoses of both upper arms Obesity (BMI 30-39.9) CARMELLA (obstructive sleep apnea) PND (post-nasal drip) Pre-diabetes Recurrent kidney stones Recurrent pneumonia Shortness of breath Skin tear of right elbow without complication Umbilical hernia URI (upper respiratory infection) Home Medications mepolizumab 100 mg/mL subcutaneous auto-injector (Nucala) 300 mg subcut Q4W 08/23/20 [History Last Taken Unknown] multivitamin 1 tab PO DAILY 09/19/20 [History Last Taken Unknown] PEP device #1 ea 06/12/22 [Rx Last Taken Unknown] allopurinol 300 mg tablet 300 mg PO DAILY #90 tabs 07/16/22 [Rx Last Taken Unknown] cholecalciferol (vitamin D3) 25 mcg (1,000 unit) capsule 25 mcg PO DAILY #90 caps 07/16/22 [Rx Last Taken Unknown] fluticasone propionate 230 mcg-salmeterol 21 mcg/actuation HFA inhaler (Advair HFA) 2 puff inhalation Q12H #3 ea 07/16/22 [Rx Last Taken Unknown] guaifenesin 1,200 mg tablet, extended release 12 hr 1,200 mg PO Q12H #60 tabs 07/16/22 [Rx Last Taken Unknown] irbesartan 150 mg tablet 150 mg PO DAILY #90 tabs 07/16/22 [Rx Last Taken Unknown] lansoprazole 30 mg capsule,delayed release (Prevacid) 30 mg PO DAILY #90 caps 07/16/22 [Rx Last Taken Unknown] loratadine 10 mg tablet 10 mg PO DAILY #90 tabs 07/16/22 [Rx Last Taken Unknown] montelukast 10 mg tablet 10 mg PO QPM #90 tabs 07/16/22 [Rx Last Taken Unknown] rosuvastatin 5 mg tablet 2.5 mg PO QODAY #90 tabs 07/16/22 [Rx Last Taken Unknown] tamsulosin 0.4 mg capsule 0.4 mg PO DAILY #90 caps 07/16/22 [Rx Last Taken Unknown] tiotropium bromide 1.25 mcg/actuation mist for inhalation (Spiriva Respimat) 2 puff inhalation DAILY #3 ea 07/16/22 [Rx Last Taken Unknown] trazodone 100 mg tablet 100 mg PO QHS PRN insomnia 90 days #40 tabs 07/16/22 [Rx Last Taken Unknown] albuterol sulfate 90 mcg/actuation aerosol inhaler (Ventolin HFA) 2 puff inhalation Q4H PRN shortness of breath or wheezing #18 grams 07/17/22 [Rx Last Taken Unknown] ipratropium bromide 42 mcg (0.06 %) nasal spray 1 spray intranasal BID #15 mL 07/17/22 [Rx Last Taken Unknown] aspirin 81 mg chewable tablet 81 mg PO BREAKFAST #90 tabs 08/15/22 [Rx Last Taken Unknown] ticagrelor 90 mg tablet (Brilinta) 90 mg PO BID #180 tabs 08/15/22 [Rx Last Taken Unknown] albuterol sulfate 2.5 mg/3 mL (0.083 %) solution for nebulization 2.5 mg inhalation .COMPLEX Sob &/Or Wheezing 09/01/22 [History Last Taken Unknown] sodium chloride 5 % eye ointment 1 applic topical DAILY PRN Dry Eye(S) 09/01/22 [History Last Taken Unknown] Allergy/AdvReac Type Severity Reaction Status Date / Time lisinopril AdvReac Intermediate cough Verified 09/01/22 10:26 simvastatin AdvReac Intermediate elevated Verified 09/01/22 10:26 liver enzymes Family History Father Cancer Bone Marrow Surgical History History of cataract extraction History of cataract extraction History of coronary artery stent placement (08/14/22) History of coronary artery stent placement History of lumbar discectomy History of orthopedic surgery History of tonsillectomy History of tonsillectomy History of uvulectomy History of uvulectomy S/P correction of deviated nasal septum Social History household members: spouse housing: house Smoking Status: Never smoker alcohol intake: current alcohol intake frequency: a few times a month Alcohol type: beer and wine substance use type: does not use what type of physical activity do you participate in: none Vital Signs Vital Signs Vital Signs: 09/02/22 10:16 Temperature 97.2 F L Temperature Source Temporal Pulse Rate 76 Blood Pressure 141/74 H Blood Pressure Mean 96 Blood Pressure Source Monitor Weight Weight: 287 lb Body Mass Index (BMI) 41.1 Physical Exam Const alert, oriented x3, no apparent distress and well nourished Constitutional Narrative: The patient is obese. General Appearance: cooperative, comfortable, well kempt and well developed Orientation / Consciousness: awake, oriented to person, oriented to place and oriented to time Exam Limitations: no limitations HEENT normocephalic, head/scalp atraumatic and hearing grossly normal bilaterally Head and Scalp: normal to inspection, normocephalic and atraumatic Face and Sinus: normal facial exam Nose: external nose normal External Ear: external ears normal Eyes PERRL and EOMs intact bilaterally General Eye: normal appearance of both eyes Neck full ROM Resp normal respiratory effort, normal air movement, no retractions and no use of accessory muscles Effort and Inspection: able to speak in complete sentences Extremity no calf tenderness General Extremity: Negative for clubbing or cyanosis Skin Wound Narrative: Multiple purpuric and ecchymotic lesions are noted in the patient's upper extremities, of various sizes. A small skin tear/superficial abrasion is noted on the right lateral elbow. Dimensions are documented elsewhere. There is no sign of infection or cellulitis. It appears as though the remainder of the patient's skin surface throughout his body is spared of these lesions. Neuro oriented x3, CN's II-XII intact bilaterally and moves all extremities Sensorium / Orientation: awake, alert, oriented to person, oriented to place andoriented to time Psych Appearance: grossly normal and appropriate Attitude: calm Activity / Motor Behavior: appropriate eye contact Speech: normal speech Mood & Affect: euthymic mood Thought Process: normal thought process Thought Content: normal thought content Attention / Concentration: attention grossly intact Debridement Note Debridement Note No debridement was completed: No debridement was completed today Post-Debridement Measurements and Additional Note: Post-Debridement Measurements/Treatment - Nurse 1 - General Ulcer Assessment Start: 09/02/22 10:05 Freq: Status: Active Protocol: WC.LOWBLUET Activity Type Activity Date Activity User E-sign Co-sign Detail Recorded Client Recorded Date Recorded By Document 09/02/22 10:16 AL [id number] 09/02/22 10:26 AL 09/02/22 10:16 - Today's Visit Information Type of service Initial Visit Arrival Mode Ambulatory Patient Identification Verified (Name & Yes ) Patient Requires Transmission-Based No Precautions Safety Precautions NA Height and Weight Height 5 ft 10 in Weight 287 lb Weight in Pounds 287.0 lbs Body Mass Index (BMI) 41.1 BMI Classification Obese BSA - Amauri 2.43 Vital Signs Temperature (97.8 F-99.1 F) 97.2 F L Temperature Source Temporal Pulse Rate (60-100) 76 Pulse Location Monitor Blood Pressure (90/60-120/80) 141/74 H Blood Pressure Mean 96 Source Monitor History Since Last Visit- (Skip if this is Patient's initial visit) Left Footwear Regular Shoe Right Footwear Regular Shoe Pain Scale: 0-10 Numeric Is Patient Pain Free? Yes - Nurse 1 - General Ulcer Measurement Start: 09/02/22 10:05 Freq: Status: Active Protocol: Activity Type Activity Date Activity User E-sign Co-sign Detail Recorded Client Recorded Date Recorded By Document 09/02/22 10:16 AK [id number] 09/02/22 10:26 AK 09/02/22 10:16 Wound Center Nurse 1 #1 R lateral elbow -Combined with other wound No -Current Size (cm) - Length 0.1 -Current Size (cm) - Width 1.2 -Current Size (cm) - Depth 0.1 -Total Square Cm 0.12 -Date of Last Picture (Recall this 09/02/22 field) -Photo Taken Yes -Tunneling No -Undermining/Tunneling No -Circular Undermining No -Change in Wound Grade/Stage No -Exudate Amt Small -Exudate Type Serosanguineous -Wound Margin Distinct, Outline Attached -Granulation Amt None Present (0 %) -Granulation Quality N/A -Slough/Fibrin No -Necrosis Amt None Present (0 %) -Structure Exposed N/A -Texture (Kiki-wound Skin Appearance) Assessed, Friable -Moisture (Kiki-wound Skin Appearance) No Abnormality, Assessed -Color (Kiki-wound Skin Appearance) Assessed, Hemosiderin Staining -Temperature (Kiki-wound Skin No Abnormality Appearance) (Pt Warm) -Tenderness on Palpation (Kiki-wound No Skin Appearance) -Ulcer Cleansing Rinsed/ Irrigated with Saline -Foul Odor after Cleansing No WC - Nurse 2 - General Ulcer CM Notes Start: 09/02/22 10:05 Freq: Status: Active Protocol: Activity Type Activity Date Activity User E-sign Co-sign Detail Recorded Client Recorded Date Recorded By Document 09/02/22 10:37 MW [id number] 09/02/22 10:55 MW 09/02/22 10:37 Wound Center Nurse 2 -Time 10:40 -Correct Patient Yes -Correct Side, Site, Position Yes -Correct Procedure Yes -Procedure Performed No -Post Debridement (cm) - Length 0.1 -Post Debridement (cm) - Width 1.2 -Post Debridement (cm) - Depth 0.1 -Total Square (Post) (cm) 0.12 -Tunneling No -Undermining/Tunneling No -Circular Undermining No -Wound/Ulcer Outcome Not Healed Pain Scale: 0-10 Numeric Is Patient Pain Free? Yes WC - Nurse 3 - General Ulcer D/C NN Start: 09/02/22 10:05 Freq: Status: Active Protocol: Activity Type Activity Date Activity User E-sign Co-sign Detail Recorded Client Recorded Date Recorded By Document 09/02/22 11:06 DL [id number] 09/02/22 11:07 DL 09/02/22 11:06 Wound Care Center Nurse 3 #1 R lateral elbow -Ulcer Cleansing Rinsed/ Irrigated with Saline -Foul Odor after Cleansing No -Primary Dressing Applied C Hydrogel ($), NonAdherent Contact Layer -Primary Dressing Covered/Secured with Dry Gauze & Roll Gauze, Secured with Tape Treatment Response Procedure Tolerated Well Pain Scale: 0-10 Numeric Is Patient Pain Free? Yes WC - Visit Discharge Discharge Condition Stable Ambulatory Status Ambulatory Transportation Private Auto Assessment/Plan Assessment/Plan (1) Abrasion of right forearm, initial encounter: CODE(S): S50.811A - Abrasion of right forearm, initial encounter (2) Skin tear of right elbow without complication: CODE(S): S51.011A - Laceration without foreign body of right elbow, initial encounter QUALIFIERS: Encounter type: initial encounter Qualified Code(s): S51.011A - Laceration without foreign body of right elbow, initial encounter (3) Purpura: CODE(S): D69.2 - Other nonthrombocytopenic purpura (4) Multiple ecchymoses of both upper arms: CODE(S): R58 - Hemorrhage, not elsewhere classified (5) Atherosclerosis of coronary artery of ak chin heart without angina pectoris: CODE(S): I25.10 - Atherosclerotic heart disease of ak chin coronary artery without angina pectoris (6) History of coronary artery stent placement: CODE(S): Z95.5 - Presence of coronary angioplasty implant and graft (7) CAD (coronary artery disease): CODE(S): I25.10 - Atherosclerotic heart disease of [place] coronary artery without angina pectoris (8) Essential hypertension: CODE(S): I10 - Essential (primary) hypertension (9) Hyperlipidemia: CODE(S): E78.5 - Hyperlipidemia, unspecified (10) Chronic cough: CODE(S): R05 - Cough (11) CARMELLA (obstructive sleep apnea): CODE(S): G47.33 - Obstructive sleep apnea (adult) (pediatric) (12) BMI 40.0-44.9, adult: CODE(S): Z68.41 - Body mass index [BMI] 40.0-44.9, adult (13) Asthma: CODE(S): J45.909 - Unspecified asthma, uncomplicated QUALIFIERS: Asthma severity: severe Asthma persistence: persistent Asthma complication type: uncomplicated Qualified Code(s): J45.50 - Severe persistent asthma, uncomplicated (14) Easy bruising: CODE(S): R23.8 - Other skin changes (15) Pre-diabetes: CODE(S): R73.03 - Prediabetes (16) Umbilical hernia: CODE(S): K42.9 - Umbilical hernia without obstruction or gangrene (17) Morbid obesity: CODE(S): E66.01 - Morbid (severe) obesity due to excess calories (18) GERD (gastroesophageal reflux disease): CODE(S): K21.9 - Gastro-esophageal reflux disease without esophagitis (19) BPH (benign prostatic hyperplasia): CODE(S): N40.0 - Benign prostatic hyperplasia without lower urinary tract symptoms (20) DDD (degenerative disc disease): (21) Recurrent kidney stones: CODE(S): N20.0 - Calculus of kidney (22) Gout: CODE(S): M10.9 - Gout, unspecified (23) Cataracts, bilateral: CODE(S): H26.9 - Unspecified cataract (24) Hemorrhoids: CODE(S): K64.9 - Unspecified hemorrhoids (25) History of cataract extraction: CODE(S): Z98.49 - Cataract extraction status, unspecified eye (26) History of tonsillectomy: CODE(S): Z90.89 - Acquired absence of other organs (27) History of uvulectomy: CODE(S): Z90.89 - Acquired absence of other organs (28) History of lumbar discectomy: CODE(S): Z98.890 - Other specified postprocedural states (29) History of coronary artery stent placement: CODE(S): Z95.5 - Presence of coronary angioplasty implant and graft PLAN: Plan This is a 71-year-old male with multiple pre-existing medical problems, as listed herein. He presents with a small superficial abrasion/skin tear on the right lateral elbow. We are to implement the use of collagen hydrogel topically, which will be applied on a daily basis. Because of the sensitivity and fragility of the patient's skin, Adaptic is to be applied over the hydrogel, and will be held in place with Coban gently wrapped around the patient's right upper extremity. Additionally, the patient suffers from the development of spontaneous purpuric and ecchymotic lesions on his upper extremities. These often rupture, and bleed profusely. His primary care physician and a local waiter/waitress tavern/oncologist have been unable to discern the cause of these upper extremity lesions. It has been suggested that the patient be evaluated by a substitute teacher. Attempts will be made to facilitate such an appointment in the near future. The patient is to return in 1 week for reevaluation. Total time: 60 minutes 09/02/22 1512 <Electronically signed by Aron Gruber MD> Cosigner Signature (if applicable): CC: ~ Signed [facility] Work Phone: [phone] 610-179202-10-[address] Arrington [facility] August 15, 2022 7:54am Note Date/Time August 15, 2022 7:54am [facility] Medical Records Department [address] [place] [id number] Instructions for Home/Discharge Instructions 08/15/22 0750 MR#: [id number] Acct: [id number] Name: JOAQUIN HENDRICKS Rep #:[id number] : 1950 71 From: Zbigniew Arrington MD PCP: Dr. Art Ureña MD Status:ADM FILOMENA Discharge Instructions Diet Discharge Diet: No restrictions Activity Discharge Activity: Return to Normal Activity Additional Activity Instructions:: You must have someone drive you home. Do not drive until instructed by your doctor. You must have someone stay with you all night after your test. Rest in bed or onthe couch until the next morning. Limit the number of times you go up and down stairs the day of your test. Apply pressure to the puncture site if you sneeze or cough. Dressing / Incision Call your doctor if your incision/area has: Increased Pain/ Swelling, Increased Redness, Foul Smelling Discharge and Swelling at the incision site Call your doctor if you observe: Fever of 101 or Higher Additional Dressing/Incision Instructions:: Keep the dressing (bandage) on untilthe next morning. You may then shower, but do not take a tub bath for 5 days after your test. It is normal to have some tenderness and discomfort at the puncture site. Sometimes bruising also occurs. However, if pain, numbness, or coldness occurs below the puncture site (in your leg, toes, arms or fingers) call your doctor atonce. You may have a small, marble sized knot at the puncture site. This is normal. Donot rub it. It will go away in 4-6 weeks. Bleeding can occur from the area where the puncture was done. Blood may spurt ordrip from the site. If blood spurts, apply pressure right away to stop bleeding and call 911. Although rare, bleeding into the tissue (hematoma) can also occur.If this happens, a large, firm area goose egg under the skin will appear. If any of these occur, lie down as flat as you can and have someone apply firm pressure to the cath site with a gauze pad or a clean washcloth for 10-15 minutes. Call 911 or go to the Emergency Department. Follow Up Care Please Follow Up With: Zbigniew Arrington MD When: My office will call for appointment. Test Results: Test results from this visit will be discussed in further detail at your follow- up appointment, if applicable. Discharge Plan Admission Admit Date/Time: 08/14/22 11:27 Attending Provider: Zbigniew Arrington Primary Care Provider: Art Ureña Discharge Orders/Prescriptions Prescriptions: New aspirin 81 mg Tablet,Chewable 81 mg PO BREAKFAST Qty: 90 3RF Brilinta 90 mg Tablet 90 mg PO BID Qty: 180 3RF Continued Nucala 100 mg/mL auto-injector 300 mg SC Q4W Rx Instructions: administer as three 100 mg injections at separate sites multivitamin Tablet 1 tab PO DAILY (DME) PEP device See Rx Instructions .ROUTE .MEDSUPPLY Qty: 1 0RF Rx Instructions: with training allopurinol 300 mg tablet 300 mg PO DAILY Qty: 90 3RF cholecalciferol (vitamin D3) 25 mcg (1,000 unit) capsule 25 mcg PO DAILY Qty: 90 3RF Advair HFA 230-21 mcg/actuation HFA aerosol inhaler 2 puff inhalation Q12H Qty: 3 3RF guaifenesin 1,200 mg tablet extended release 12hr 1,200 mg PO Q12H Qty: 60 6RF irbesartan 150 mg tablet 150 mg PO DAILY Qty: 90 3RF lansoprazole [Prevacid] 30 mg capsule,delayed release(DR/EC) 30 mg PO DAILY Qty: 90 3RF loratadine 10 mg tablet 10 mg PO DAILY Qty: 90 3RF montelukast 10 mg tablet 10 mg PO QPM Qty: 90 3RF rosuvastatin 5 mg tablet 2.5 mg PO QODAY Qty: 90 3RF sodium chloride 5 % ointment 1 applic TOPICAL DAILY Qty: 3.5 6RF tamsulosin 0.4 mg capsule 0.4 mg PO DAILY Qty: 90 3RF Spiriva Respimat 1.25 mcg/actuation mist 2 puff inhalation DAILY Qty: 3 3RF trazodone 100 mg tablet 100 mg PO QHS PRN (Reason: insomnia) 90 Days Qty: 40 1RF ipratropium bromide 42 mcg (0.06 %) spray,non-aerosol 1 spray intranasal BID Qty: 15 6RF Rx Instructions: administer into each nostril albuterol sulfate 2.5 mg /3 mL (0.083 %) solution for nebulization 2.5 mg inhalation Q4H PRN (Reason: Sob &/Or Wheezing) Qty: 180 3RF Rx Instructions: J45.9 Asthma albuterol sulfate [Ventolin HFA] 90 mcg/actuation HFA aerosol inhaler 2 puff inhalation Q4H PRN (Reason: shortness of breath or wheezing) Qty: 18 6RF Referrals / Follow Up: Art Ureña MD [Primary Care Provider] - Disposition Disposition (needs filled in before D/C Order can be placed): Home, Self Care 08/15/22 0754<Electronically signed by Zbigniew Arrington MD>Zbigniew Arrington MD CC: Dr. Art Ureña MD ~ Signed [facility] Work Phone: 1(678) 329-591502-10-[address] Arrnigton [facility] August 15, 2022 7:47am Note Date/Time August 15, 2022 7:47am [facility] Medical Records Department [address] [place] [address] Progress Note - Cardiology 08/15/2244 MR#: [id number] Acct: [id number] Name: JOAQUIN HENDRICKS Rep #:[id number] : 1950 71 From: Zbigniew Arrington MD PCP: Dr. Art Ureña MD Status:ADM FILOMENA Location: [place] [address] Subjective Subjective Patient's seen and evaluated. Appears to be doing much better this morning. Nocomplaints Objective Data Vital Signs: Vital Signs Temp Pulse Resp BP Pulse Ox O2 Del Method 98.3 F 64 18 120/76 94 Room Air 08/15/22 03:43 08/15/22 07:06 08/15/22 07:06 08/15/22 03:43 08/15/22 07:06 08/15/22 07:06 Oxygen Delivery Method Room Air Weight: 290 lb Body Mass Index (BMI) 41.5 Intake & Output: Intake and Output for Last 24 Hours 08/13/22 08/14/22 08/15/22 23:59 23:59 23:59 Intake Total 1216 / 1216 300 / 300 Balance 1216 / 1216 300 / 300 Lab / Micro Data Result Diagrams: 08/15/22 06:29 08/15/22 06:29 Labs: Laboratory Results - last 24 hr 08/15/22 06:29: WBC 10.0, RBC 4.38 L, Hgb 13.3, Hct 40.7, MCV 92.9, MCH 30.4, MCHC 32.7, RDW Std Deviation 53.7 H, RDW Coeff of Yareli 15.7 H, Plt Count 217, MPV10.0 08/15/22 06:29: Sodium 138, Potassium 3.8, Chloride 106, Carbon Dioxide 26.0, Anion Gap 6, BUN 16, Creatinine 0.87, Estim Creat Clear Calc 81.58, Est GFR (MDRD) Af Amer 112, Est GFR (MDRD) Non-Af 92, BUN/Creatinine Ratio 18.5, [id number], Calcium 9.1, Total Bilirubin 0.90, AST 18, ALT 31, Alkaline Phosphatase 70,Total Protein 6.2 L, Albumin 3.3, Globulin 2.9, Albumin/Globulin Ratio 1.1 ABG Data ABG results: ABG 08/14/22 08/14/22 08/14/22 08:24 08:27 08:30 Specimen Type ART SID SID pH 7.41 Bicarbonate Actual 25.6 Total CO2 27 Base Excess 1 O2 Saturation 93 L ABG pCO2 40.5 ABG pO2 65 L VBG pH 7.40 7.41 VBG pO2 39 38 VBG HCO3 26 27 H VBG Total CO2 28 28 VBG O2 Sat (Calc) 74 H 73 H VBG Base Excess 1 2 POC Mix VBG pCO2 Pt Tmp 42.5 42.8 Cardiology Labs/Tests 08/14/22 08:24: pH 7.41, Bicarbonate Actual 25.6, Base Excess 1, O2 Saturation 93 L, ABG pCO2 40.5, ABG pO2 65 L 08/14/22 08:27: VBG pH 7.40, VBG pO2 39, VBG HCO3 26, VBG O2 Sat (Calc) 74 H, VBG Base Excess 1 08/14/22 08:30: VBG pH 7.41, VBG pO2 38, VBG HCO3 27 H, VBG O2 Sat (Calc) 73 H, VBG Base Excess 2 08/15/22 06:29: WBC 10.0, RBC 4.38 L, Hgb 13.3, Hct 40.7, MCV 92.9, MCH 30.4, MCHC 32.7, Plt Count 217, MPV 10.0 08/15/22 06:29: Sodium 138, Potassium 3.8, Chloride 106, Carbon Dioxide 26.0, Anion Gap 6, BUN 16, Creatinine 0.87, Est GFR (MDRD) Af Amer 112, Est GFR (MDRD)Non-Af 92, BUN/Creatinine Ratio 18.5, Glucose 100, Calcium 9.1, Total Bilirubin 0.90 Rhythm: EKG: ECHO: Stress Test: Cardiac Cath: PCI: CT Surgery: Holter monitor: EPS: PPM: CXR: Chest CT Scan: Physical Exam Const alert, oriented x3 and no apparent distress General Appearance: cooperative HEENT hearing grossly normal bilaterally Head and Scalp: atraumatic Eyes EOMs intact bilaterally Neck General: normal visual inspection Chest inspection of chest normal and palpation of chest normal Resp normal respiratory effort Auscultation: clear to auscultation bilaterally Cardio regular rate, regular rhythm, S1 normal heart sound and S2 normal heart sound Jugular Venous Distention: JVD GI normal to inspection, nondistended, normoactive bowel sounds Extremity normal capillary refill and no pedal edema Peripheral Pulses: Yes pulses 2+ throughout and femoral pulses present Skin no rashes or lesions noted Neuro oriented x3 and CN's II-XII intact bilaterally Psych Appearance: grossly normal and appropriate Assessment & Plan Assessment/Plan (1) History of coronary artery stent placement: PLAN: Patient has a history of coronary artery disease status post recent angioplasty and stenting. He appears to be doing well. He will be enrolled in cardiac rehabilitation and he will restart aspirin, ticagrelor and statin. (2) Essential hypertension: PLAN: His blood pressure is under good control and no major changes will be made. (3) Hyperlipidemia: PLAN: We will continue with aggressive risk factor modification. 08/15/22 0747 <Electronically signed by Zbigniew Arrington MD> Cosigner Signature (if applicable): CC: ~ Signed [facility] Work Phone: [phone]) 196-472502-09-2023 Evaluation note* Diagnosis Onset Date Resolution Status Essential hypertension chron ic Shortness of breath chronic History of coronary artery stent placement August acute Essential hypertension chron ic Hyperlipidemia chronic Eosinophilia acute Asthma chronic Morbid obesity chronic CARMELLA (obstructive sleep apnea) chronic Abrasion of right forearm, initial encounter acute Abrasion of right forearm, initial encounter acute Atherosclerosis of coronary artery of [place] heart without angina pectoris acute History of coronary artery stent placement August acute Asthmatic bronchitis with acute exacerbation chronic BMI 40.0-44.9, adult chronic BPH (benign prostatic hyperplasia) chronic Essential hypertension chron ic GERD (gastroesophageal reflux disease) chronic Hyperlipidemia chronic Abrasion of right forearm, initial encounter acute Atherosclerosis of coronary artery of [place] heart without angina pectoris acute CAD (coronary artery disease) acute Cataracts, bilateral acute Gout acute Hemorrhoids acute History of cataract extraction acute History of coronary artery stent placement acute History of lumbar discectomy acute History of tonsillectomy acu te History of uvulectomy acute Multiple ecchymoses of both upper arms acute Recurrent kidney stones acut e Skin tear of right elbow without complication acute Umbilical hernia acute Asthma chronic BMI 40.0-44.9, adult chronic BPH (benign prostatic hyperplasia) chronic Chronic cough chronic DDD (degenerative disc disease) chronic Easy bruising chronic Essential hypertension chron ic GERD (gastroesophageal reflux disease) chronic Hyperlipidemia chronic Morbid obesity chronic CARMELLA (obstructive sleep apnea) chronic Pre-diabetes chronic Purpura chronic Abrasion of right forearm, initial encounter acute Atherosclerosis of coronary artery of [place] chin heart without angina pectoris acute CAD (coronary artery disease) acute Cataracts, bilateral acute Gout acute Hemorrhoids acute History of cataract extraction acute History of coronary artery stent placement acute History of lumbar discectomy acute History of tonsillectomy acu te History of uvulectomy acute Multiple ecchymoses of both upper arms acute Recurrent kidney stones acut e Skin tear of right elbow without complication acute Umbilical hernia acute Asthma chronic BMI 40.0-44.9, adult chronic BPH (benign prostatic hyperplasia) chronic Chronic cough chronic DDD (degenerative disc disease) chronic Easy bruising chronic Essential hypertension chron ic GERD (gastroesophageal reflux disease) chronic Hyperlipidemia chronic Morbid obesity chronic CARMELLA (obstructive sleep apnea) chronic Pre-diabetes chronic Purpura chronic COVID-19 acute History of coronary artery stent placement August acute Essential hypertension chron ic Hyperlipidemia chronic Shortness of breath chronic Rib pain on right side acute Thoracic back pain acute [facility] Work Phone: 1(233) 423-941502-09-2023 Evaluation note* Diagnosis Onset Date Resolution Status Essential hypertension chron ic Shortness of breath chronic History of coronary artery stent placement August acute Essential hypertension chron ic Hyperlipidemia chronic Eosinophilia acute Asthma chronic Morbid obesity chronic CARMELLA (obstructive sleep apnea) chronic Abrasion of right forearm, initial encounter acute Abrasion of right forearm, initial encounter acute Atherosclerosis of coronary artery of [place] without angina pectoris acute History of coronary artery stent placement August acute Asthmatic bronchitis with acute exacerbation chronic BMI 40.0-44.9, adult chronic BPH (benign prostatic hyperplasia) chronic Essential hypertension chron ic GERD (gastroesophageal reflux disease) chronic Hyperlipidemia chronic Abrasion of right forearm, initial encounter acute Atherosclerosis of coronary artery of [place] without angina pectoris acute CAD (coronary artery disease) acute Cataracts, bilateral acute Gout acute Hemorrhoids acute History of cataract extraction acute History of coronary artery stent placement acute History of lumbar discectomy acute History of tonsillectomy acu te History of uvulectomy acute Multiple ecchymoses of both upper arms acute Recurrent kidney stones acut e Skin tear of right elbow without complication acute Umbilical hernia acute Asthma chronic BMI 40.0-44.9, adult chronic BPH (benign prostatic hyperplasia) chronic Chronic cough chronic DDD (degenerative disc disease) chronic Easy bruising chronic Essential hypertension chron ic GERD (gastroesophageal reflux disease) chronic Hyperlipidemia chronic Morbid obesity chronic CARMELLA (obstructive sleep apnea) chronic Pre-diabetes chronic Purpura chronic Abrasion of right forearm, initial encounter acute Atherosclerosis of coronary artery of [place] without angina pectoris acute CAD (coronary artery disease) acute Cataracts, bilateral acute Gout acute Hemorrhoids acute History of cataract extraction acute History of coronary artery stent placement acute History of lumbar discectomy acute History of tonsillectomy acu te History of uvulectomy acute Multiple ecchymoses of both upper arms acute Recurrent kidney stones acut e Skin tear of right elbow without complication acute Umbilical hernia acute Asthma chronic BMI 40.0-44.9, adult chronic BPH (benign prostatic hyperplasia) chronic Chronic cough chronic DDD (degenerative disc disease) chronic Easy bruising chronic Essential hypertension chron ic GERD (gastroesophageal reflux disease) chronic Hyperlipidemia chronic Morbid obesity chronic CARMELLA (obstructive sleep apnea) chronic Pre-diabetes chronic Purpura chronic COVID-19 acute History of coronary artery stent placement August acute Essential hypertension chron ic Hyperlipidemia chronic Shortness of breath chronic Rib pain on right side acute Thoracic back pain acute Hypoxia acute Asthma chronic BMI 40.0-44.9, adult chronic CARMELLA (obstructive sleep apnea) chronic [facility] Work Phone: 1(224) 397-287602-09-2023 Evaluation note* Diagnosis Onset Date Resolution Status Abrasion of right forearm, initial encounter acute Atherosclerosis of coronary artery of [place] without angina pectoris acute History of coronary artery stent placement August acute Asthmatic bronchitis with acute exacerbation chronic BMI 40.0-44.9, adult chronic BPH (benign prostatic hyperplasia) chronic Essential hypertension chron ic GERD (gastroesophageal reflux disease) chronic Hyperlipidemia chronic Abrasion of right forearm, initial encounter acute Atherosclerosis of coronary artery of [place] without angina pectoris acute CAD (coronary artery disease) acute Cataracts, bilateral acute Gout acute Hemorrhoids acute History of cataract extraction acute History of coronary artery stent placement acute History of lumbar discectomy acute History of tonsillectomy acu te History of uvulectomy acute Multiple ecchymoses of both upper arms acute Recurrent kidney stones acut e Skin tear of right elbow without complication acute Umbilical hernia acute Asthma chronic BMI 40.0-44.9, adult chronic BPH (benign prostatic hyperplasia) chronic Chronic cough chronic DDD (degenerative disc disease) chronic Easy bruising chronic Essential hypertension chron ic GERD (gastroesophageal reflux disease) chronic Hyperlipidemia chronic Morbid obesity chronic CARMELLA (obstructive sleep apnea) chronic Pre-diabetes chronic Purpura chronic Abrasion of right forearm, initial encounter acute Atherosclerosis of coronary artery of [place] without angina pectoris acute CAD (coronary artery disease) acute Cataracts, bilateral acute Gout acute Hemorrhoids acute History of cataract extraction acute History of coronary artery stent placement acute History of lumbar discectomy acute History of tonsillectomy acu te History of uvulectomy acute Multiple ecchymoses of both upper arms acute Recurrent kidney stones acut e Skin tear of right elbow without complication acute Umbilical hernia acute Asthma chronic BMI 40.0-44.9, adult chronic BPH (benign prostatic hyperplasia) chronic Chronic cough chronic DDD (degenerative disc disease) chronic Easy bruising chronic Essential hypertension chron ic GERD (gastroesophageal reflux disease) chronic Hyperlipidemia chronic Morbid obesity chronic CARMELLA (obstructive sleep apnea) chronic Pre-diabetes chronic Purpura chronic COVID-19 acute History of coronary artery stent placement August acute Essential hypertension chron ic Hyperlipidemia chronic Shortness of breath chronic Rib pain on right side acute Thoracic back pain acute Hypoxia acute Asthma chronic BMI 40.0-44.9, adult chronic CARMELLA (obstructive sleep apnea) chronic History of coronary artery stent placement August acute Essential hypertension chron ic Hyperlipidemia chronic Shortness of breath chronic [facility] Work Phone: [phone]) [phone] Evaluation note* Diagnosis Onset Date Resolution Status COVID-19 acute History of coronary artery stent placement August acute Essential hypertension chron ic Hyperlipidemia chronic Shortness of breath chronic Rib pain on right side acute Thoracic back pain acute Hypoxia acute Asthma chronic BMI 40.0-44.9, adult chronic CARMELLA (obstructive sleep apnea) chronic History of coronary artery stent placement August acute Essential hypertension chron ic Hyperlipidemia chronic Shortness of breath chronic Acute bronchitis acute Eosinophilia acute Hypoxia acute Asthma chronic Chronic cough chronic [facility] Work Phone: [phone]) [phone] Evaluation note* Diagnosis Onset Date Resolution Status COVID-19 acute History of coronary artery stent placement August acute Essential hypertension chron ic Hyperlipidemia chronic Shortness of breath chronic Rib pain on right side acute Thoracic back pain acute Hypoxia acute Asthma chronic BMI 40.0-44.9, adult chronic CARMELLA (obstructive sleep apnea) chronic History of coronary artery stent placement August acute Essential hypertension chron ic Hyperlipidemia chronic Shortness of breath chronic Acute bronchitis acute Asthma exacerbation acute Eosinophilia acute Haemophilus influenzae pneumonia acute Hypoxia acute Asthma chronic Chronic cough chronic COPD exacerbation [facility] Work Phone: [phone]) [phone] Evaluation note* Diagnosis Onset Date Resolution Status History of coronary artery stent placement August acute Essential hypertension chron ic Hyperlipidemia chronic Shortness of breath chronic Acute bronchitis acute Hypoxia acute Asthma exacerbation resolved Haemophilus influenzae pneumonia resolved BMI 40.0-44.9, adult chronic CARMELLA (obstructive sleep apnea) chronic Asthma exacerbation resolved Haemophilus influenzae pneumonia resolved Asthma exacerbation resolved Haemophilus influenzae pneumonia resolved Easy bruising chronic Essential hypertension chron ic Hyperlipidemia [facility] Work Phone: [phone]) [phone] Evaluation note* Diagnosis Onset Date Resolution Status Easy bruising chronic Essential hypertension chron ic Hyperlipidemia chronic Essential hypertension chron ic History of coronary artery stent placement August chronic Hyperlipidemia chronic Shortness of breath [facility] Work Phone: [phone]) 589-231102-09-2023 Evaluation note* Diagnosis Onset Date Resolution Status Essential hypertension chron ic History of coronary artery stent placement August chronic Hyperlipidemia chronic Shortness of breath [facility] Work Phone: 1(522) 358-664308-11-2013 History of Past illness Narrative* Problem Noted Date Diagnosed Date Resolved Date Gout attack 02/13/2013 09/12/2016 Obesity 11/27/2012 06/22/2017 Sleep apnea 10/30/2011 09/12/2016 Overview: Uses CPAP Hyperglycemia 06/16/2011 09/12/2016 Hyperlipemia 05/27/2010 04/13/2017 Blood in stool 09/11/2006 10/30/2011 Anal fissure 08/03/2006 10/30/2011 Nephrolithiasis 06/22/2017 Overview: seen Dr Lanier documented as of this encounter (statuses as of 01/16/2023) [facility]08-11-2013 History of Past illness Narrative* Problem Noted Date Diagnosed Date Resolved Date Gout attack 02/13/2013 09/12/2016 Obesity 11/27/2012 06/22/2017 Sleep apnea 10/30/2011 09/12/2016 Overview: Uses CPAP Hyperglycemia 06/16/2011 09/12/2016 Hyperlipemia 05/27/2010 04/13/2017 Blood in stool 09/11/2006 10/30/2011 Anal fissure 08/03/2006 10/30/2011 Nephrolithiasis 06/22/2017 Overview: seen Dr Lanier documented as of this encounter (statuses as of 01/17/2023) [facility]-11-2013 History of Past illness Narrative* Problem Noted Date Diagnosed Date Resolved Date Gout attack 02/13/2013 09/12/2016 Obesity 11/27/2012 06/22/2017 Sleep apnea 10/30/2011 09/12/2016 Overview: Uses CPAP Hyperglycemia 06/16/2011 09/12/2016 Hyperlipemia 05/27/2010 04/13/2017 Blood in stool 09/11/2006 10/30/2011 Anal fissure 08/03/2006 10/30/2011 Nephrolithiasis 06/22/2017 Overview: seen Dr Lanier documented as of this encounter (statuses as of 02/12/2023) [facility]-11-2013 History of Past illness Narrative* Problem Noted Date Diagnosed Date Resolved Date Gout attack 02/13/2013 09/12/2016 Obesity 11/27/2012 06/22/2017 Sleep apnea 10/30/2011 09/12/2016 Overview: Uses CPAP Hyperglycemia 06/16/2011 09/12/2016 Hyperlipemia 05/27/2010 04/13/2017 Blood in stool 09/11/2006 10/30/2011 Anal fissure 08/03/2006 10/30/2011 Nephrolithiasis 06/22/2017 Overview: seen Dr Lanier documented as of this encounter (statuses as of 02/14/2023) [facility]-11-2013 History of Past illness Narrative* Problem Noted Date Diagnosed Date Resolved Date Gout attack 02/13/2013 09/12/2016 Obesity 11/27/2012 06/22/2017 Sleep apnea 10/30/2011 09/12/2016 Overview: Uses CPAP Hyperglycemia 06/16/2011 09/12/2016 Hyperlipemia 05/27/2010 04/13/2017 Blood in stool 09/11/2006 10/30/2011 Anal fissure 08/03/2006 10/30/2011 Nephrolithiasis 06/22/2017 Overview: seen Dr Lanier documented as of this encounter (statuses as of 02/14/2023) [facility]08-11-2013 History of Past illness Narrative* Problem Noted Date Diagnosed Date Resolved Date Gout attack 02/13/2013 09/12/2016 Obesity 11/27/2012 06/22/2017 Sleep apnea 10/30/2011 09/12/2016 Overview: Uses CPAP Hyperglycemia 06/16/2011 09/12/2016 Hyperlipemia 05/27/2010 04/13/2017 Blood in stool 09/11/2006 10/30/2011 Anal fissure 08/03/2006 10/30/2011 Nephrolithiasis 06/22/2017 Overview: seen Dr Lanier documented as of this encounter (statuses as of 02/14/2023) [facility]-11-2013 History of Past illness Narrative* Problem Noted Date Diagnosed Date Resolved Date Gout attack 02/13/2013 09/12/2016 Obesity 11/27/2012 06/22/2017 Sleep apnea 10/30/2011 09/12/2016 Overview: Uses CPAP Hyperglycemia 06/16/2011 09/12/2016 Hyperlipemia 05/27/2010 04/13/2017 Blood in stool 09/11/2006 10/30/2011 Anal fissure 08/03/2006 10/30/2011 Nephrolithiasis 06/22/2017 Overview: seen Dr Lanier documented as of this encounter (statuses as of 02/19/2023) [facility]-2013 History of Past illness Narrative* Problem Noted Date Diagnosed Date Resolved Date Gout attack 02/13/2013 09/12/2016 Obesity 11/27/2012 06/22/2017 Sleep apnea 10/30/2011 09/12/2016 Overview: Uses CPAP Hyperglycemia 06/16/2011 09/12/2016 Hyperlipemia 05/27/2010 04/13/2017 Blood in stool 09/11/2006 10/30/2011 Anal fissure 08/03/2006 10/30/2011 Nephrolithiasis 06/22/2017 Overview: seen Dr Lanier documented as of this encounter (statuses as of 02/26/2023) [facility]-2013 History of Past illness Narrative* Problem Noted Date Diagnosed Date Resolved Date Gout attack 02/13/2013 09/12/2016 Obesity 11/27/2012 06/22/2017 Sleep apnea 10/30/2011 09/12/2016 Overview: Uses CPAP Hyperglycemia 06/16/2011 09/12/2016 Hyperlipemia 05/27/2010 04/13/2017 Blood in stool 09/11/2006 10/30/2011 Anal fissure 08/03/2006 10/30/2011 Nephrolithiasis 06/22/2017 Overview: seen Dr Lanier documented as of this encounter (statuses as of 03/23/2023) [facility]-11-2013 History of Past illness Narrative* Problem Noted Date Diagnosed Date Resolved Date Gout attack 02/13/2013 09/12/2016 Obesity 11/27/2012 06/22/2017 Sleep apnea 10/30/2011 09/12/2016 Overview: Uses CPAP Hyperglycemia 06/16/2011 09/12/2016 Hyperlipemia 05/27/2010 04/13/2017 Blood in stool 09/11/2006 10/30/2011 Anal fissure 08/03/2006 10/30/2011 Nephrolithiasis 06/22/2017 Overview: seen Dr Lanier documented as of this encounter (statuses as of 04/03/2023) [facility]-11-2013 History of Past illness Narrative* Problem Noted Date Diagnosed Date Resolved Date Gout attack 02/13/2013 09/12/2016 Obesity 11/27/2012 06/22/2017 Sleep apnea 10/30/2011 09/12/2016 Overview: Uses CPAP Hyperglycemia 06/16/2011 09/12/2016 Hyperlipemia 05/27/2010 04/13/2017 Blood in stool 09/11/2006 10/30/2011 Anal fissure 08/03/2006 10/30/2011 Nephrolithiasis 06/22/2017 Overview: seen Dr Lanier documented as of this encounter (statuses as of 04/22/2023) [facility]-11-2013 History of Past illness Narrative* Problem Noted Date Diagnosed Date Resolved Date Gout attack 02/13/2013 09/12/2016 Obesity 11/27/2012 06/22/2017 Sleep apnea 10/30/2011 09/12/2016 Overview: Uses CPAP Hyperglycemia 06/16/2011 09/12/2016 Hyperlipemia 05/27/2010 04/13/2017 Blood in stool 09/11/2006 10/30/2011 Anal fissure 08/03/2006 10/30/2011 Nephrolithiasis 06/22/2017 Overview: seen Dr Lanier documented as of this encounter (statuses as of 04/22/2023) [facility]-2013 History of Past illness Narrative* Problem Noted Date Diagnosed Date Resolved Date Gout attack 02/13/2013 09/12/2016 Obesity 11/27/2012 06/22/2017 Sleep apnea 10/30/2011 09/12/2016 Overview: Uses CPAP Hyperglycemia 06/16/2011 09/12/2016 Hyperlipemia 05/27/2010 04/13/2017 Blood in stool 09/11/2006 10/30/2011 Anal fissure 08/03/2006 10/30/2011 Nephrolithiasis 06/22/2017 Overview: seen Dr Lanier documented as of this encounter (statuses as of 04/30/2023) [facility]-2013 History of Past illness Narrative* Problem Noted Date Diagnosed Date Resolved Date Gout attack 02/13/2013 09/12/2016 Obesity 11/27/2012 06/22/2017 Sleep apnea 10/30/2011 09/12/2016 Overview: Uses CPAP Hyperglycemia 06/16/2011 09/12/2016 Hyperlipemia 05/27/2010 04/13/2017 Blood in stool 09/11/2006 10/30/2011 Anal fissure 08/03/2006 10/30/2011 Nephrolithiasis 06/22/2017 Overview: seen Dr Lanier documented as of this encounter (statuses as of 04/30/2023) [facility]2013 History of Past illness Narrative* Problem Noted Date Diagnosed Date Resolved Date Gout attack 02/13/2013 09/12/2016 Obesity 11/27/2012 06/22/2017 Sleep apnea 10/30/2011 09/12/2016 Overview: Uses CPAP Hyperglycemia 06/16/2011 09/12/2016 Hyperlipemia 05/27/2010 04/13/2017 Blood in stool 09/11/2006 10/30/2011 Anal fissure 08/03/2006 10/30/2011 Nephrolithiasis 06/22/2017 Overview: seen Dr Lanier documented as of this encounter (statuses as of 05/06/2023) [facility] History of Past illness Narrative* Problem Noted Date Diagnosed Date Resolved Date Gout attack 02/13/2013 09/12/2016 Obesity 11/27/2012 06/22/2017 Sleep apnea 10/30/2011 09/12/2016 Overview: Uses CPAP Hyperglycemia 06/16/2011 09/12/2016 Hyperlipemia 05/27/2010 04/13/2017 Blood in stool 09/11/2006 10/30/2011 Anal fissure 08/03/2006 10/30/2011 Nephrolithiasis 06/22/2017 Overview: seen Dr Lanier documented as of this encounter (statuses as of 05/18/2023) [facility] History of Past illness Narrative* Problem Noted Date Diagnosed Date Resolved Date Gout attack 02/13/2013 09/12/2016 Obesity 11/27/2012 06/22/2017 Sleep apnea 10/30/2011 09/12/2016 Overview: Uses CPAP Hyperglycemia 06/16/2011 09/12/2016 Hyperlipemia 05/27/2010 04/13/2017 Blood in stool 09/11/2006 10/30/2011 Anal fissure 08/03/2006 10/30/2011 Nephrolithiasis 06/22/2017 Overview: seen Dr Lanier documented as of this encounter (statuses as of 05/19/2023) [facility]2013 History of Past illness Narrative* Problem Noted Date Diagnosed Date Resolved Date Gout attack 02/13/2013 09/12/2016 Obesity 11/27/2012 06/22/2017 Sleep apnea 10/30/2011 09/12/2016 Overview: Uses CPAP Hyperglycemia 06/16/2011 09/12/2016 Hyperlipemia 05/27/2010 04/13/2017 Blood in stool 09/11/2006 10/30/2011 Anal fissure 08/03/2006 10/30/2011 Nephrolithiasis 06/22/2017 Overview: seen Dr Lanier documented as of this encounter (statuses as of 05/19/2023) [facility]-2013 History of Past illness Narrative* Problem Noted Date Diagnosed Date Resolved Date Gout attack 02/13/2013 09/12/2016 Obesity 11/27/2012 06/22/2017 Sleep apnea 10/30/2011 09/12/2016 Overview: Uses CPAP Hyperglycemia 06/16/2011 09/12/2016 Hyperlipemia 05/27/2010 04/13/2017 Blood in stool 09/11/2006 10/30/2011 Anal fissure 08/03/2006 10/30/2011 Nephrolithiasis 06/22/2017 Overview: seen Dr Lanier documented as of this encounter (statuses as of 05/27/2023) [facility]-2013 History of Past illness Narrative* Problem Noted Date Diagnosed Date Resolved Date Gout attack 02/13/2013 09/12/2016 Obesity 11/27/2012 06/22/2017 Sleep apnea 10/30/2011 09/12/2016 Overview: Uses CPAP Hyperglycemia 06/16/2011 09/12/2016 Hyperlipemia 05/27/2010 04/13/2017 Blood in stool 09/11/2006 10/30/2011 Anal fissure 08/03/2006 10/30/2011 Nephrolithiasis 06/22/2017 Overview: seen Dr Lanier documented as of this encounter (statuses as of 05/27/2023) [facility] History of Past illness Narrative* Problem Noted Date Diagnosed Date Resolved Date Gout attack 02/13/2013 09/12/2016 Obesity 11/27/2012 06/22/2017 Sleep apnea 10/30/2011 09/12/2016 Overview: Uses CPAP Hyperglycemia 06/16/2011 09/12/2016 Hyperlipemia 05/27/2010 04/13/2017 Blood in stool 09/11/2006 10/30/2011 Anal fissure 08/03/2006 10/30/2011 Nephrolithiasis 06/22/2017 Overview: seen Dr Lanier documented as of this encounter (statuses as of 05/27/2023) [facility] History of Past illness Narrative* Problem Noted Date Diagnosed Date Resolved Date Gout attack 02/13/2013 09/12/2016 Obesity 11/27/2012 06/22/2017 Sleep apnea 10/30/2011 09/12/2016 Overview: Uses CPAP Hyperglycemia 06/16/2011 09/12/2016 Hyperlipemia 05/27/2010 04/13/2017 Blood in stool 09/11/2006 10/30/2011 Anal fissure 08/03/2006 10/30/2011 Nephrolithiasis 06/22/2017 Overview: seen Dr Lanier documented as of this encounter (statuses as of 06/19/2023) [facility] History of Past illness Narrative* Problem Noted Date Diagnosed Date Resolved Date Gout attack 02/13/2013 09/12/2016 Obesity 11/27/2012 06/22/2017 Sleep apnea 10/30/2011 09/12/2016 Overview: Uses CPAP Hyperglycemia 06/16/2011 09/12/2016 Hyperlipemia 05/27/2010 04/13/2017 Blood in stool 09/11/2006 10/30/2011 Anal fissure 08/03/2006 10/30/2011 Nephrolithiasis 06/22/2017 Overview: seen Dr Lanier documented as of this encounter (statuses as of 08/08/2023) [facility] History of Past illness Narrative* Problem Noted Date Diagnosed Date Resolved Date Gout attack 02/13/2013 09/12/2016 Obesity 11/27/2012 06/22/2017 Sleep apnea 10/30/2011 09/12/2016 Overview: Uses CPAP Hyperglycemia 06/16/2011 09/12/2016 Hyperlipemia 05/27/2010 04/13/2017 Blood in stool 09/11/2006 10/30/2011 Anal fissure 08/03/2006 10/30/2011 Nephrolithiasis 06/22/2017 Overview: seen Dr Lanier documented as of this encounter (statuses as of 08/19/2023) [facility] History of Past illness Narrative* Problem Noted Date Diagnosed Date Resolved Date Gout attack 02/13/2013 09/12/2016 Obesity 11/27/2012 06/22/2017 Sleep apnea 10/30/2011 09/12/2016 Overview: Uses CPAP Hyperglycemia 06/16/2011 09/12/2016 Hyperlipemia 05/27/2010 04/13/2017 Blood in stool 09/11/2006 10/30/2011 Anal fissure 08/03/2006 10/30/2011 Nephrolithiasis 06/22/2017 Overview: seen Dr Lanier documented as of this encounter (statuses as of 09/10/2023) [facility] note Author Janis Pat [facility] January 14, 2023 12:23pm Note Date/Time January 14, 2023 12:2 3pm [facility] Medical Records Department [address] [place] [address] Counseling Note - Pharmacy 01/14/23 1222 MR#: [id number] Acct: [id number] Name: JOAQUIN HENDRICKS Rep #:[id number] : 1950 72 From: Janis Pat PCP: Dr. Art Ureña MD Status:ADM IN Y Location: [place] [address] Pharmacy [facility] has performed discharge medication reconciliation and counseling for this patient. 1. LEVOFLOXACIN 750MG PO DAILY X 4 DAYS The patient's discharge medication list was reviewed for discrepancies and discrepancies were resolved. The patient was counseled on the following discharge medications and changes in medications for homegoing were reviewed. The Reason for Use, instructions for use, and potential side effects were reviewed for all new medications. The patient's questions regarding all of their medications were answered. The patient was able to verbally demonstrate an understanding of their dischargemedications. Patient counseled by deliverer pharmacyArsen. Medications at Discharge Home Medications multivitamin 1 tab PO DAILY 09/19/20 PEP device #1 ea 06/12/22 allopurinol 300 mg tablet 300 mg PO DAILY #90 tabs 07/16/22 cholecalciferol (vitamin D3) 25 mcg (1,000 unit) capsule 25 mcg PO DAILY #90 caps 07/16/22 fluticasone propionate 230 mcg-salmeterol 21 mcg/actuation HFA inhaler (Advair HFA) 2 puff inhalation Q12H #3 ea 07/16/22 guaifenesin 1,200 mg tablet, extended release 12 hr 1,200 mg PO Q12H #60 tabs 07/16/22 irbesartan 150 mg tablet 150 mg PO DAILY #90 tabs 07/16/22 lansoprazole 30 mg capsule,delayed release (Prevacid) 30 mg PO DAILY #90 caps 07/16/22 loratadine 10 mg tablet 10 mg PO DAILY #90 tabs 07/16/22 montelukast 10 mg tablet 10 mg PO QPM #90 tabs 07/16/22 rosuvastatin 5 mg tablet 2.5 mg (1/2 x 5 mg) PO QODAY #90 tabs 07/16/22 tamsulosin 0.4 mg capsule 0.4 mg PO DAILY #90 caps 07/16/22 tiotropium bromide 1.25 mcg/actuation mist for inhalation (Spiriva Respimat) 2 puff inhalation DAILY #3 ea 07/16/22 trazodone 100 mg tablet 100 mg PO QHS PRN insomnia 90 days #40 tabs 07/16/22 albuterol sulfate 90 mcg/actuation aerosol inhaler (Ventolin HFA) 2 puff inhalation Q4H PRN shortness of breath or wheezing #18 grams 07/17/22 aspirin 81 mg chewable tablet 81 mg PO BREAKFAST #90 tabs 08/15/22 albuterol sulfate 2.5 mg/3 mL (0.083 %) solution for nebulization 2.5 mg (3 mL) inhalation .COMPLEX Sob &/Or Wheezing #180 mL 09/24/22 azelastine-fluticasone 137 mcg-50 mcg/spray nasal spray 1 spray intranasal BID #23 grams 10/06/22 clopidogrel 75 mg tablet 75 mg PO DAILY #90 tabs 10/10/22 ipratropium bromide 42 mcg (0.06 %) nasal spray 1 spray intranasal BID PRN allergies 11/12/22 tezepelumab-ekko 210 mg/1.91 mL (110 mg/mL) subcutaneous pen injector (Tezspire)210 mg (1.91 mL) subcut Q4W #1.91 mL 11/28/22 levofloxacin 750 mg tablet 750 mg PO Q24H #4 tabs 01/14/23 prednisone 10 mg tablet 10 mg PO DAILY #60 tabs 01/14/23 01/14/23 1223 <Electronically signed by Janis Pat> Date _ Janis Pat Cosigner Signature (if applicable): Date CC: ~ Signed [facility] Work Phone: Evaluation note* Diagnosis Onset Date Resolution Status Acute bronchitis acute CARMELLA (obstructive sleep apnea) chronic Asthma chronic BPH (benign prostatic hyperplasia) chronic Hypertension chronic Insomnia chronic Purpura chronic Gastroenteritis acute [facility] Work Phone: evaluation note* Diagnosis Onset Date Resolution Status Asthma chronic BPH (benign prostatic hyperplasia) chronic Hypertension chronic Insomnia chronic Purpura chronic Gastroenteritis acute Asthmatic bronchitis with acute exacerbation acute Contact with or suspected ex posure to other viral communicable disease acute Cough acute Asthma chronic [facility] Work Phone: evaluation note* Diagnosis Onset Date Resolution Status Asthma chronic BPH (benign prostatic hyperplasia) chronic Hypertension chronic Insomnia chronic Purpura chronic Gastroenteritis acute Asthmatic bronchitis with acute exacerbation acute Contact with or suspected ex posure to other viral communicable disease acute Cough acute Asthma chronic Cataract acute Asthma chronic Hypertension chronic Insomnia chronic [facility] Work Phone: evaluation note* Diagnosis Onset Date Resolution Status Gastroenteritis acute Asthmatic bronchitis with acute exacerbation acute Contact with or suspected ex posure to other viral communicable disease acute Cough acute Asthma chronic Cataract acute Asthma chronic Hypertension chronic Insomnia chronic [facility] Work Phone: evaluation note* Diagnosis Onset Date Resolution Status Gastroenteritis acute Asthmatic bronchitis with acute exacerbation acute Contact with or suspected ex posure to other viral communicable disease acute Cough acute Asthma chronic Cataract acute Asthma chronic Hypertension chronic Insomnia chronic Lump of left thigh noneactiv e [facility] Work Phone: evaluation note* Diagnosis Onset Date Resolution Status Asthmatic bronchitis with acute exacerbation acute Contact with or suspected ex posure to other viral communicable disease acute Cough acute Asthma chronic Cataract acute Asthma chronic Hypertension chronic Insomnia chronic Lump of left thigh noneactiv e Asthmatic bronchitis with acute exacerbation acute BMI 40.0-44.9, adult chronic CARMELLA (obstructive sleep apnea) chronic [facility] Work Phone: Evaluation note* Diagnosis Onset Date Resolution Status Cataract acute Asthma chronic Hypertension chronic Insomnia chronic Lump of left thigh noneactiv e Asthmatic bronchitis with acute exacerbation acute BMI 40.0-44.9, adult chronic CARMELLA (obstructive sleep apnea) chronic [facility] Work Phone: Evaluation note* Diagnosis Onset Date Resolution Status Lump of left thigh noneactiv e Asthmatic bronchitis with acute exacerbation acute BMI 40.0-44.9, adult chronic CARMELLA (obstructive sleep apnea) chronic Mass of left thigh acute Asthma chronic Hypertension chronic Insomnia chronic Mixed hyperlipidemia chronic Morbid obesity chronic CARMELLA (obstructive sleep apnea) chronic Encounter to establish care noneactive Asthma chronic BMI 40.0-44.9, adult chronic Morbid obesity chronic CARMELLA (obstructive sleep apnea) chronic [facility] Work Phone: Evaluation note* Diagnosis Onset Date Resolution Status Asthmatic bronchitis with acute exacerbation acute BMI 40.0-44.9, adult chronic CARMELLA (obstructive sleep apnea) chronic Mass of left thigh acute Asthma chronic Hypertension chronic Insomnia chronic Mixed hyperlipidemia chronic Morbid obesity chronic CARMELLA (obstructive sleep apnea) chronic Encounter to establish care noneactive Asthma chronic BMI 40.0-44.9, adult chronic Morbid obesity chronic CARMELLA (obstructive sleep apnea) chronic Bilateral lower extremity edema acute Shortness of breath acute Cough acute [facility] Work Phone: Evaluation note* Diagnosis Onset Date Resolution Status Asthma chronic BMI 40.0-44.9, adult chronic Morbid obesity chronic CARMELLA (obstructive sleep apnea) chronic Bilateral lower extremity edema acute Shortness of breath acute Cough acute Asthmatic bronchitis with acute exacerbation acute Bilateral lower extremity edema acute Shortness of breath acute BMI 40.0-44.9, adult chronic Hypertension chronic Mixed hyperlipidemia chronic Morbid obesity chronic CARMELLA (obstructive sleep apnea) chronic Asthmatic bronchitis with acute exacerbation acute Eosinophilia acute Morbid obesity chronic CARMELLA (obstructive sleep apnea) chronic [facility] Work Phone: Evaluation note* Diagnosis Onset Date Resolution Status Bilateral lower extremity edema acute Shortness of breath acute Bilateral lower extremity edema acute Shortness of breath acute BMI 40.0-44.9, adult chronic Morbid obesity chronic CARMELLA (obstructive sleep apnea) chronic Eosinophilia acute Morbid obesity chronic CARMELLA (obstructive sleep apnea) chronic Shortness of breath acute Essential hypertension chron ic [facility] Work Phone: Evaluation note* Diagnosis Onset Date Resolution Status Bilateral lower extremity edema acute Shortness of breath acute Bilateral lower extremity edema acute Shortness of breath acute BMI 40.0-44.9, adult chronic Morbid obesity chronic CARMELLA (obstructive sleep apnea) chronic Eosinophilia acute Morbid obesity chronic CARMELLA (obstructive sleep apnea) chronic Shortness of breath acute Essential hypertension chron ic History of coronary artery stent placement August acute Essential hypertension chron ic Hyperlipidemia chronic [facility] Work Phone: Evaluation note* Diagnosis Onset Date Resolution Status Bilateral lower extremity edema acute Shortness of breath acute Bilateral lower extremity edema acute Shortness of breath acute Asthmatic bronchitis with acute exacerbation chronic BMI 40.0-44.9, adult chronic Morbid obesity chronic CARMELLA (obstructive sleep apnea) chronic Eosinophilia acute Asthmatic bronchitis with acute exacerbation chronic Morbid obesity chronic CARMELLA (obstructive sleep apnea) chronic Shortness of breath acute Essential hypertension chron ic History of coronary artery stent placement August acute Essential hypertension chron ic Hyperlipidemia chronic Eosinophilia acute Asthma chronic Morbid obesity chronic CARMELLA (obstructive sleep apnea) chronic Abrasion of right forearm, initial encounter acute [facility] Work Phone: Evaluation note* Diagnosis Onset Date Resolution Status Bilateral lower extremity edema acute Shortness of breath acute Bilateral lower extremity edema acute Shortness of breath acute Asthmatic bronchitis with acute exacerbation chronic BMI 40.0-44.9, adult chronic Morbid obesity chronic CARMELLA (obstructive sleep apnea) chronic Eosinophilia acute Asthmatic bronchitis with acute exacerbation chronic Morbid obesity chronic CARMELLA (obstructive sleep apnea) chronic Shortness of breath acute Essential hypertension chron ic History of coronary artery stent placement August acute Essential hypertension chron ic Hyperlipidemia chronic Eosinophilia acute Asthma chronic Morbid obesity chronic CARMELLA (obstructive sleep apnea) chronic Abrasion of right forearm, initial encounter acute Abrasion of right forearm, initial encounter acute Atherosclerosis of coronary artery of [place] heart without angina pectoris acute History of coronary artery stent placement August acute Asthmatic bronchitis with acute exacerbation chronic BMI 40.0-44.9, adult chronic BPH (benign prostatic hyperplasia) chronic Essential hypertension chron ic GERD (gastroesophageal reflux disease) chronic Hyperlipidemia chronic Abrasion of right forearm, initial encounter acute Atherosclerosis of coronary artery of [place] heart without angina pectoris acute CAD (coronary artery disease) acute Cataracts, bilateral acute Gout acute Hemorrhoids acute History of cataract extraction acute History of coronary artery stent placement acute History of lumbar discectomy acute History of tonsillectomy acu te History of uvulectomy acute Multiple ecchymoses of both upper arms acute Recurrent kidney stones acut e Skin tear of right elbow without complication acute Umbilical hernia acute Asthma chronic BMI 40.0-44.9, adult chronic BPH (benign prostatic hyperplasia) chronic Chronic cough chronic DDD (degenerative disc disease) chronic Easy bruising chronic Essential hypertension chron ic GERD (gastroesophageal reflux disease) chronic Hyperlipidemia chronic Morbid obesity chronic CARMELLA (obstructive sleep apnea) chronic Pre-diabetes chronic Purpura chronic [facility] Work Phone: Evaluation note* Diagnosis Onset Date Resolution Status Bilateral lower extremity edema acute Shortness of breath acute Asthmatic bronchitis with acute exacerbation chronic BMI 40.0-44.9, adult chronic Morbid obesity chronic CARMELLA (obstructive sleep apnea) chronic Eosinophilia acute Asthmatic bronchitis with acute exacerbation chronic Morbid obesity chronic CARMELLA (obstructive sleep apnea) chronic Shortness of breath acute Essential hypertension chron ic History of coronary artery stent placement August acute Essential hypertension chron ic Hyperlipidemia chronic Eosinophilia acute Asthma chronic Morbid obesity chronic CARMELLA (obstructive sleep apnea) chronic Abrasion of right forearm, initial encounter acute Abrasion of right forearm, initial encounter acute Atherosclerosis of coronary artery of [place] heart without angina pectoris acute History of coronary artery stent placement August acute Asthmatic bronchitis with acute exacerbation chronic BMI 40.0-44.9, adult chronic BPH (benign prostatic hyperplasia) chronic Essential hypertension chron ic GERD (gastroesophageal reflux disease) chronic Hyperlipidemia chronic Abrasion of right forearm, initial encounter acute Atherosclerosis of coronary artery of [place] without angina pectoris acute CAD (coronary artery disease) acute Cataracts, bilateral acute Gout acute Hemorrhoids acute History of cataract extraction acute History of coronary artery stent placement acute History of lumbar discectomy acute History of tonsillectomy acu te History of uvulectomy acute Multiple ecchymoses of both upper arms acute Recurrent kidney stones acut e Skin tear of right elbow without complication acute Umbilical hernia acute Asthma chronic BMI 40.0-44.9, adult chronic BPH (benign prostatic hyperplasia) chronic Chronic cough chronic DDD (degenerative disc disease) chronic Easy bruising chronic Essential hypertension chron ic GERD (gastroesophageal reflux disease) chronic Hyperlipidemia chronic Morbid obesity chronic CARMELLA (obstructive sleep apnea) chronic Pre-diabetes chronic Purpura chronic Abrasion of right forearm, initial encounter acute Atherosclerosis of coronary artery of [place] without angina pectoris acute CAD (coronary artery disease) acute Cataracts, bilateral acute Gout acute Hemorrhoids acute History of cataract extraction acute History of coronary artery stent placement acute History of lumbar discectomy acute History of tonsillectomy acu te History of uvulectomy acute Multiple ecchymoses of both upper arms acute Recurrent kidney stones acut e Skin tear of right elbow without complication acute Umbilical hernia acute Asthma chronic BMI 40.0-44.9, adult chronic BPH (benign prostatic hyperplasia) chronic Chronic cough chronic DDD (degenerative disc disease) chronic Easy bruising chronic Essential hypertension chron ic GERD (gastroesophageal reflux disease) chronic Hyperlipidemia chronic Morbid obesity chronic CARMELLA (obstructive sleep apnea) chronic Pre-diabetes chronic Purpura chronic COVID-19 acute [facility] Work Phone: Evaluation note* Diagnosis Onset Date Resolution Status Bilateral lower extremity edema acute Asthmatic bronchitis with acute exacerbation chronic BMI 40.0-44.9, adult chronic Morbid obesity chronic CARMELLA (obstructive sleep apnea) chronic Shortness of breath chronic Eosinophilia acute Asthmatic bronchitis with acute exacerbation chronic Morbid obesity chronic CARMELLA (obstructive sleep apnea) chronic Essential hypertension chron ic Shortness of breath chronic History of coronary artery stent placement August acute Essential hypertension chron ic Hyperlipidemia chronic Eosinophilia acute Asthma chronic Morbid obesity chronic CARMELLA (obstructive sleep apnea) chronic Abrasion of right forearm, initial encounter acute Abrasion of right forearm, initial encounter acute Atherosclerosis of coronary artery of [place] without angina pectoris acute History of coronary artery stent placement August acute Asthmatic bronchitis with acute exacerbation chronic BMI 40.0-44.9, adult chronic BPH (benign prostatic hyperplasia) chronic Essential hypertension chron ic GERD (gastroesophageal reflux disease) chronic Hyperlipidemia chronic Abrasion of right forearm, initial encounter acute Atherosclerosis of coronary artery of [place] heart without angina pectoris acute CAD (coronary artery disease) acute Cataracts, bilateral acute Gout acute Hemorrhoids acute History of cataract extraction acute History of coronary artery stent placement acute History of lumbar discectomy acute History of tonsillectomy acu te History of uvulectomy acute Multiple ecchymoses of both upper arms acute Recurrent kidney stones acut e Skin tear of right elbow without complication acute Umbilical hernia acute Asthma chronic BMI 40.0-44.9, adult chronic BPH (benign prostatic hyperplasia) chronic Chronic cough chronic DDD (degenerative disc disease) chronic Easy bruising chronic Essential hypertension chron ic GERD (gastroesophageal reflux disease) chronic Hyperlipidemia chronic Morbid obesity chronic CARMELLA (obstructive sleep apnea) chronic Pre-diabetes chronic Purpura chronic Abrasion of right forearm, initial encounter acute Atherosclerosis of coronary artery of [place] without angina pectoris acute CAD (coronary artery disease) acute Cataracts, bilateral acute Gout acute Hemorrhoids acute History of cataract extraction acute History of coronary artery stent placement acute History of lumbar discectomy acute History of tonsillectomy acu te History of uvulectomy acute Multiple ecchymoses of both upper arms acute Recurrent kidney stones acut e Skin tear of right elbow without complication acute Umbilical hernia acute Asthma chronic BMI 40.0-44.9, adult chronic BPH (benign prostatic hyperplasia) chronic Chronic cough chronic DDD (degenerative disc disease) chronic Easy bruising chronic Essential hypertension chron ic GERD (gastroesophageal reflux disease) chronic Hyperlipidemia chronic Morbid obesity chronic CARMELLA (obstructive sleep apnea) chronic Pre-diabetes chronic Purpura chronic COVID-19 acute History of coronary artery stent placement August acute Essential hypertension chron ic Hyperlipidemia chronic Shortness of breath chronic [facility] Work Phone: Evaluation note* Diagnosis Onset Date Resolution Status Abrasion of right forearm, initial encounter acute Atherosclerosis of coronary artery of [place] without angina pectoris acute CAD (coronary artery disease) acute Cataracts, bilateral acute Gout acute Hemorrhoids acute History of cataract extraction acute History of coronary artery stent placement acute History of lumbar discectomy acute History of tonsillectomy acu te History of uvulectomy acute Multiple ecchymoses of both upper arms acute Recurrent kidney stones acut e Skin tear of right elbow without complication acute Umbilical hernia acute Asthma chronic BMI 40.0-44.9, adult chronic BPH (benign prostatic hyperplasia) chronic Chronic cough chronic DDD (degenerative disc disease) chronic Easy bruising chronic Essential hypertension chron ic GERD (gastroesophageal reflux disease) chronic Hyperlipidemia chronic Morbid obesity chronic CARMELLA (obstructive sleep apnea) chronic Pre-diabetes chronic Purpura chronic COVID-19 acute History of coronary artery stent placement August acute Essential hypertension chron ic Hyperlipidemia chronic Shortness of breath chronic Rib pain on right side acute Thoracic back pain acute Hypoxia acute Asthma chronic BMI 40.0-44.9, adult chronic CARMELLA (obstructive sleep apnea) chronic History of coronary artery stent placement August acute Essential hypertension chron ic Hyperlipidemia chronic Shortness of breath chronic [facility] Work Phone: Evaluation note* Diagnosis Asthma, unspecified asthma severity, unspecified whether complicated, unspecified whether persistent documented in this encounter [facility]* Diagnosis Asthma, unspecified asthma severity, unspecified whether complicated, unspecified whether persistent documented in this encounter [facility] note* Diagnosis Severe persistent asthma with acute exacerbation- Primary Unspecified asthma, with exacerbation Recurrent pneumonia Pneumonia, organism unspecified Morbid obesity (HCC) Morbid obesity documented in this encounter [facility]* Diagnosis Severe persistent asthma without complication- Primary Bronchiectasis without complication (HCC) Bronchiectasis without acute exacerbation Morbid obesity (HCC) Morbid obesity H/O recurrent pneumonia Personal history of pneumonia (recurrent) documented in this encounter [facility]* Diagnosis 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 documented in this encounter [facility] note* Diagnosis Hypogammaglobulinemia (HCC)- Primary Hypogammaglobulinaemia, unspecified documented in this encounter [facility] note* Diagnosis Bronchiectasis without complication (HCC)- Primary Bronchiectasis without acute exacerbation documented in this encounter [facility] note* Diagnosis Hypogammaglobulinemia (HCC)- Primary Hypogammaglobulinaemia, unspecified Severe persistent asthma without complication Chronic rhinitis documented in this encounter [facility] note* Diagnosis Hypogammaglobulinemia (HCC)- Primary Hypogammaglobulinaemia, unspecified documented in this encounter [facility] note* Diagnosis Hypogammaglobulinemia (HCC)- Primary Hypogammaglobulinaemia, unspecified documented in this encounter [facility] note* Diagnosis Need for vaccination- Primary Need for prophylactic vaccination and inoculation against unspecified single disease documented in this encounter [facility] note* Diagnosis Onset Date Resolution Status BMI 40.0-44.9, adult chronic CARMELLA (obstructive sleep apnea) chronic Asthma exacerbation resolved Haemophilus influenzae pneumonia resolved Asthma exacerbation resolved Haemophilus influenzae pneumonia resolved Easy bruising chronic Essential hypertension chron ic Hyperlipidemia [facility] Work Phone: Evaluation note* Diagnosis Severe persistent asthma without complication documented in this encounter [facility]* Diagnosis Severe persistent asthma without complication- Primary Bronchiectasis without complication (HCC) Bronchiectasis without acute exacerbation Morbid obesity (HCC) Morbid obesity H/O recurrent pneumonia Personal history of pneumonia (recurrent) CARMELLA (obstructive sleep apnea) Obstructive sleep apnea (adult) (pediatric) [facility]* Diagnosis Severe persistent asthma without complication- Primary documented in this encounter [facility]* Diagnosis Severe persistent asthma without complication- Primary documented in this encounter [facility]* Diagnosis Onset Date Resolution Status Easy bruising chronic Essential hypertension chron ic Hyperlipidemia [facility] Work Phone: Evaluation note* Diagnosis Hypogammaglobulinemia (HCC)- Primary Hypogammaglobulinaemia, unspecified Severe persistent asthma without complication Bronchiectasis without complication (HCC) Bronchiectasis without acute exacerbation Nonallergic rhinitis Chronic rhinitis documented in this encounter [facility]* Diagnosis Severe persistent asthma without complication- Primary Morbid obesity (HCC) Morbid obesity Bronchiectasis without complication (HCC) Bronchiectasis without acute exacerbation H/O recurrent pneumonia Personal history of pneumonia (recurrent) CARMELLA (obstructive sleep apnea) Obstructive sleep apnea (adult) (pediatric) documented in this encounter [facility] note* Diagnosis Onset Date Resolution Status Other specified pruritic conditions acute Swelling of left lower extremity acute [facility] Work Phone: Evaluation note* Diagnosis Severe persistent asthma without complication- Primary Low immunoglobulin level Morbid obesity (HCC) Morbid obesity documented in this encounter [facility]* Diagnosis Hypogammaglobulinemia (HCC)- Primary Hypogammaglobulinaemia, unspecified Severe persistent asthma without complication Bronchiectasis without complication (HCC) Bronchiectasis without acute exacerbation documented in this encounter [facility] note* Diagnosis Sore throat- Primary Acute pharyngitis At increased risk of exposure to COVID-19 virus Other coronavirus as the cause of diseases classified elsewhere documented in this encounter [facility] note* Diagnosis Hypogammaglobulinemia (HCC)- Primary Hypogammaglobulinaemia, unspecified documented in this encounter [facility] note* Diagnosis Severe persistent asthma with acute exacerbation- Primary Unspecified asthma, with exacerbation Cough, unspecified type Cough, unspecified type documented in this encounter [facility]* Diagnosis Cough, unspecified type documented in this encounter [facility] center note* Diagnosis Bronchitis- Primary Bronchitis, not specified as acute or chronic documented in this encounter [facility] note* Diagnosis Bronchiectasis without complication (HCC)- Primary Bronchiectasis without acute exacerbation documented in this encounter [facility]* Diagnosis Severe persistent asthma without complication documented in this encounter [facility]* Diagnosis Severe persistent asthma without complication documented in this encounter [facility]* Diagnosis Severe asthma without complication, unspecified whether persistent- Primary Abnormal sputum Morbid obesity (HCC) Morbid obesity documented in this encounter [facility] note* Diagnosis CARMELLA on CPAP- Primary Obstructive sleep apnea (adult) (pediatric) documented in this [facility]* Diagnosis Hypogammaglobulinemia (HCC)- Primary Hypogammaglobulinaemia, unspecified Severe persistent asthma without complication Bronchiectasis without complication (HCC) Bronchiectasis without acute exacerbation Nonallergic rhinitis Chronic rhinitis documented in this [facility]* Diagnosis Encounter to establish care- Primary Other reasons for seeking consultation Screening for depression Encounter for screening examination for other mental health and behavioral disorders Lipoma of left thigh Mixed hyperlipidemia Screening for diabetes mellitus Screening for thyroid disorder Encounter for vitamin deficiency screening Screening for other and unspecified endocrine, nutritional, metabolic, and immunity disorders Body mass index (BMI) 40.0-44.9, adult (HCC) Essential (primary) hypertension Unspecified essential hypertension Vitamin D deficiency, unspecified documented in this encounter [facility] noteNo assessment information availableWMiami Valley [facility] Work Phone: Evaluation note* Diagnosis Lipoma of left thigh- Primary Intramuscular lipoma Lipoma of other specified sites Degeneration of intervertebral disc of lumbar region, unspecified whether pain present documented [facility] this encounter [facility]* Diagnosis Degeneration of intervertebral disc of lumbar region, unspecified whether pain present documented in this encounter [facility]* Diagnosis Situational anxiety- Primary Other anxiety states documented in this encounter [facility]* Diagnosis Intramuscular lipoma- Primary Lipoma of other specified sites Lipoma of left thigh Umbilical hernia without obstruction and without gangrene documented in this encounter [facility]* Diagnosis Lipoma of left thigh Intramuscular lipoma Lipoma of other specified sites documented in this encounter [facility]* Diagnosis Blood blister- Primary Vascular disorder of skin documented in this [facility]* Diagnosis Blood blister- Primary Vascular disorder of skin Blister of scrotum without infection, initial encounter Scrotal swelling Edema of male genital organs documented in this encounter [facility]* Diagnosis Blood blister Vascular disorder of skin Scrotal swelling Edema of male genital organs Blister of scrotum without infection, initial encounter documented in this encounter [facility]* Diagnosis Asthma, moderate persistent, well-controlled (HCC)- Primary Unspecified asthma History of environmental allergies Other allergy, other than to medicinal agents Gastroesophageal reflux disease, unspecified whether esophagitis present [facility]* Diagnosis Superficial incisional surgical site infection- Primary Cutaneous abscess of face Cellulitis and abscess of face documented in this [facility]* Diagnosis Hypogammaglobulinemia (HCC)- Primary Hypogammaglobulinaemia, unspecified Nonallergic rhinitis Chronic rhinitis Severe persistent asthma without complication (HCC) Bronchiectasis without complication (HCC) Bronchiectasis without acute exacerbation documented in this encounter [facility] Discharge instructionsAmbulatory Orders* Phase II, Outpatient Cardiac Rehab Location: None [facility] Work Phone: Hospital Discharge instructionsAmbulatory Orders* Wound Care Location: None [facility] Work Phone: Reason for referral (narrative)* Outpatient Procedure (Routine) - Closed Specialty Diagnoses / Procedures Referred By Contac t Referred To [facility] RESPIRATORY [facility]ACY Diagnoses Severe persistent asthma without complication Procedures OXIMETRY WITH AMBULATION NONINVASIVE EAR/PULSE OXIMETRY MULTIPLE DETER Barbara Martins PA-C [address] [place] [address] [place] [id number] Referral ID Status Reason Start Date Expiration Date V isits Requested Visits Authorized [id number] Closed Auto-Generate d Referral 05/18/2023 06/16/2024 1 1 [facility] for referral (narrative)* Outpatient Procedure (Routine) - Authorized Specialty Diagnoses / Procedures Referred By Contac t Referred To [facility] RESPIRATORY TRACY Diagnoses Severe persistent asthma without complication Procedures NITRIC OXIDE, EXHALED NITRIC OXIDE GAS DETERMINATION Elena Dior MD [address] [place] [address] Respiratory [place] [phone] Referral ID Status Reason Start Date Expiration Date Visits Requested Visits Authorized [id number] Authorized Auto-Generat ed Referral 03/16/2024 04/15/2025 1 1 * Outpatient Procedure (Routine) - Authorized Specialty Diagnoses / Procedures Referred By Contac t Referred To [facility] Diagnoses Severe persistent asthma without complication Procedures SPIROMETRY - BASELINE AND POST DILATOR BRNCDILAT RSPSE SPMTRY PRE&POST-BRNCDILAT ADMElena Sanchez MD [address] [place] [address] Respiratory [place] [address] [place] [address] Referral ID Status Reason Start Date Expiration Date Visits Requested Visits Authorized [id number] Authorized Auto-Generat ed Referral 03/16/2024 04/15/2025 1 1 [facility] for referral (narrative)No reason for referral information availableWMiami Valley Hospital Work Phone: Reason for visit Narrative* Diagnostic Procedure Only (Routine) - Closed Specialty Diagnoses / Procedures Referred By Contac t Referred To Contact XR IMAGING Diagnoses Degeneration of intervertebral disc of lumbar region, unspecified whether pain present Procedures XR LUMBAR GENERAL 3V AP/LAT/L5-S1 RADEX SPINE LUMBOSACRAL 2/3 VIEWS Aurelia Hodge PA-C [address] [place] [address] Phone: tel: fax: X[facility] [place] [address] Referral ID Status Reason Start Date Expiration Date V isits Requested Visits Authorized [id number] Closed Auto-Generate d Referral 09/30/2024 10/30/2025 1 1 [facility] for visit Narrative* MRI/CT (Routine) - Closed Specialty Diagnoses / Procedures Referred By Contac t Referred To Contact MR IMAGING Diagnoses Lipoma of left thigh Intramuscular lipoma Procedures MRI UPPER LEG WO/W IVCON LEFT MRI LOWER EXTREM OTH/THN JT W/O & W/CONTR MATR Aurelia Hodge PA-C [address] [place] [address] Phone: tel: fax: MR [facility] [place] [address] Referral ID Status Reason Start Date Expiration Date V isits Requested Visits Authorized [id number] Closed Auto-Generate d Referral 09/30/2024 10/30/2025 1 1 [facility] Narrative* Diagnostic Procedure Only (Routine) - Closed Specialty Diagnoses / Procedures Referred By Matthew t Referred To Contact US IMAGING Diagnoses Blood blister Scrotal swelling Blister of scrotum without infection, initial encounter Procedures US SCROTUM AND CONTENTS US SCROTUM & CONTENTS Celena Polanco, LABEL TACKER.[employer] [address] [place] [address] Phone: tel: fax: [place] [address] Referral ID Status Reason Start Date Expiration Date V isits Requested Visits Authorized [id number] Closed Auto-Generate d Referral 12/23/2024 01/22/2026 1 1 [facility] Summary Purpose Family History No Family History Records Found Relationship Condition Age at Onset Recorded Date/T elizabeth father Malignant neoplasm Unknown Advance Directives No Advanced Directives Records Found Advance Directive Response Recorded Date/ Time Advance Directives No June 1:09pm Living Will No December 24, 2020 12:44pm Power of Ui Programmer Yes December 24 12:44pm Advance Directive Response Recorded Date/ Time Advance Directives No November 14 2:50pm Living Will No November 14, 2021 2 :50pm Power of Ui Programmer Yes November 14, 2021 2:50pm Advance Directive Response Recorded Date/ Time Name of Medical Power of Ui Programmer RECALLED January 25, 2022 12:12am Advance Directives No November 14 2:50pm Living Will No January 25, 2022 12:12am Power of Ui Programmer Yes January 25 12:12am Advance Directive Response Recorded Date/ Time Advance Directives No November 14 1:50pm Living Will No June 02 5:27pm Power of Ui Programmer No June 02, 2022 5:27pm Advance Directive Response Recorded Date/ Time Advance Directives No August 14, 2022 7:12am Living Will No August 14 7:12am Power of Ui Programmer No August 14, 2022 7:12am Advance Directive Response Recorded Date/ Time Advance Directives on File No 2022 2:22pm Advance Directives No August 14, 2022 7:12am Living Will No August 27 023 2:22pm Power of Ui Programmer No August 27, 2022 2:22pm Advance Directive Response Recorded Date/ Time Advance Directives on File No 2022 3:22pm Advance Directives No August 14, 2022 8:12am Living Will No August 27 023 3:22pm Power of Ui Programmer No August 27, 2022 3:22pm Advance Directive Response Recorded Date/ Time Advance Directives No November 11, 2022 1:19pm Living Will No November 11, 2022 1: 19pm Power of Ui Programmer No November 11, 2022 1:19pm Advance Directives on File No 2022 3:22pm Advance Directive Response Recorded Date/ Time Advance Directives No November 11, 2022 1:19pm Living Will No November 11, 2022 1: 19pm Power of Ui Programmer No November 11, 2022 1:19pm Advance Directive Response Recorded Date/ Time Advance Directives No November 11, 2022 1:19pm Living Will No January 10, 2023 1 1:53pm Power of Ui Programmer No January 10, 2023 11:53pm Advance Directive Response Recorded Date/ Time Advance Directives No November 11, 2022 1:19pm Living Will No January 11, 2023 7 :23am Power of Ui Programmer No January 11, 2023 7:23am Advance Directive Response Recorded Date/ Time Advance Directives No November 11, 2022 12:19pm Living Will No January 11, 2023 6 :23am Power of Ui Programmer No January 11, 2023 6:23am Advance Directive Response Recorded Date/ Time Advance Directives No October 20 024 4:26pm Living Will No October 21, 2023 4:26pm Power of Ui Programmer No October 20 4:26pm Advance Directive Response Recorded Date/ Time Living Will No April 09 3:25pm Power of Ui Programmer No April 09 024 3:25pm Advance Directives No October 20 024 3:26pm Advance Directive Response Recorded Date/ Time Living Will No January 11, 2023 7 :23am Do you have a Healthcare Power of Ui Programmer? No January 11, 2023 7:23am Advance Directives No October 20 4:26pm Advance Directive Response Recorded Date/ Time Advance Directives No October 20 4:26pm Advance Directive Response Recorded Date/ Time Advance Directives No October 20 3:26pm Chief Complaint and Reason for Visit Chief Complaint Upper respiratory in fection Pneumonia SHOT 6 M FU nucala nucala 3 M FU nucala nucala DIARREAH/VOMITING Reason for Visit Acute bronchitis CARMELLA (obstructive sleep apnea) Asthma BPH (benign prostatic hyperplasia) Hypertension Insomnia [place] Gastroenteritis Chief Complaint nucala 3 M FU nucala nucala DIARREAH/VOMITING COUGH/CONGESTION BRONCHITIS, URGENT CARE FU nucala Reason for Visit Asthma BPH (benign prostatic hyperplasia) Hypertension Insomnia [place] Gastroenteritis Asthmatic bronchitis with acute exacerbation Contact with or suspected exposure to other viral communicable disease Cough Asthma Chief Complaint 3 M FU nucala nucala DIARREAH/VOMITING COUGH/CONGESTION BRONCHITIS, URGENT CARE FU nucala 3 M FU nucala Reason for Visit Asthma BPH (benign prostatic hyperplasia) Hypertension Insomnia [place] Gastroenteritis Asthmatic bronchitis with acute exacerbation Contact with or suspected exposure to other viral communicable disease Cough Asthma Cataract Asthma Hypertension Insomnia Chief Complaint nucala DIARREAH/VOMITING COUGH/CONGESTION BRONCHITIS, URGENT CARE FU nucala 3 M FU nucala nucala LUMP IN LEG Reason for Visit Gastroenteritis Asthmatic bronchitis with acute exacerbation Contact with or suspected exposure to other viral communicable disease Cough Asthma Cataract Asthma Hypertension Insomnia Chief Complaint nucala DIARREAH/VOMITING COUGH/CONGESTION BRONCHITIS, URGENT CARE FU nucala 3 M FU nucala nucala LUMP IN LEG LEFT THIGH LUMP COUGHING BLOOD Reason for Visit Gastroenteritis Asthmatic bronchitis with acute exacerbation Contact with or suspected exposure to other viral communicable disease Cough Asthma Cataract Asthma Hypertension Insomnia Lump of left thigh Chief Complaint nucala DIARREAH/VOMITING COUGH/CONGESTION BRONCHITIS, URGENT CARE FU nucala 3 M FU nucala nucala LUMP IN LEG LEFT THIGH LUMP COUGHING BLOOD nucala Reason for Visit Gastroenteritis Asthmatic bronchitis with acute exacerbation Contact with or suspected exposure to other viral communicable disease Cough Asthma Cataract Asthma Hypertension Insomnia Lump of left thigh Chief Complaint COUGH/CONGESTION BRONCHITIS, URGENT CARE FU nucala 3 M FU nucala nucala LUMP IN LEG LEFT THIGH LUMP COUGHING BLOOD nucala 6 M FU Reason for Visit Asthmatic bronchitis with acute exacerbation Contact with or suspected exposure to other viral communicable disease Cough Asthma Cataract Asthma Hypertension Insomnia Lump of left thigh Asthmatic bronchitis with acute exacerbation BMI 40.0-44.9, adult CARMELLA (obstructive sleep apnea) Chief Complaint 3 M FU nucala nucala LUMP IN LEG LEFT THIGH LUMP COUGHING BLOOD nucala 6 M FU nucala Reason for Visit Cataract Asthma Hypertension Insomnia Lump of left thigh Asthmatic bronchitis with acute exacerbation BMI 40.0-44.9, adult CARMELLA (obstructive sleep apnea) Chief Complaint nucala LUMP IN LEG LEFT THIGH LUMP COUGHING BLOOD nucala 6 M FU nucala Change of Care 1 M FU LEFT LEG MASS nucala Reason for Visit Lump of left thigh Asthmatic bronchitis with acute exacerbation BMI 40.0-44.9, adult CARMELLA (obstructive sleep apnea) Mass of left thigh Asthma Hypertension Insomnia Mixed hyperlipidemia Morbid obesity CARMELLA (obstructive sleep apnea) Encounter to establish care Asthma BMI 40.0-44.9, adult Morbid obesity CARMELLA (obstructive sleep apnea) Chief Complaint 6 M FU nucala Change of Care 1 M FU LEFT LEG MASS nucala FLU SHOT EORDER nucala URI-ON ATB BUT STILL COUGHING SOB nucala SCREENING SELF REFERRED discuss biologics PEP TX Reason for Visit Asthmatic bronchitis with acute exacerbation BMI 40.0-44.9, adult CARMELLA (obstructive sleep apnea) Mass of left thigh Asthma Hypertension Insomnia Mixed hyperlipidemia Morbid obesity CARMELLA (obstructive sleep apnea) Encounter to establish care Asthma BMI 40.0-44.9, adult Morbid obesity CARMELLA (obstructive sleep apnea) Bilateral lower extremity edema Shortness of breath Cough Chief Complaint 6 M FU nucala Change of Care 1 M FU LEFT LEG MASS nucala FLU SHOT EORDER nucala URI-ON ATB BUT STILL COUGHING SOB nucala SCREENING SELF REFERRED discuss biologics PEP [place] Severe persistent asthma, uncomplicated Severe persistent asthma, uncomplicated Reason for Visit Asthmatic bronchitis with acute exacerbation BMI 40.0-44.9, adult CARMELLA (obstructive sleep apnea) Mass of left thigh Asthma Hypertension Insomnia Mixed hyperlipidemia Morbid obesity CARMELLA (obstructive sleep apnea) Encounter to establish care Asthma BMI 40.0-44.9, adult Morbid obesity CARMELLA (obstructive sleep apnea) Bilateral lower extremity edema Shortness of breath Cough Chief Complaint 1 M FU LEFT LEG MASS nucala FLU SHOT EORDER nucala URI-ON ATB BUT STILL COUGHING SOB nucala SCREENING SELF REFERRED discuss biologics PEP [place] Severe persistent asthma, uncomplicated Severe persistent asthma, [facility]complicated [facility]U nucala Reason for Visit Asthma BMI 40.0-44.9, adult Morbid obesity CARMELLA (obstructive sleep apnea) Bilateral lower extremity edema Shortness of breath Cough Asthmatic bronchitis with acute exacerbation Bilateral lower extremity edema Shortness of breath BMI 40.0-44.9, adult Hypertension Mixed hyperlipidemia Morbid obesity CARMELLA (obstructive sleep apnea) Asthmatic bronchitis with acute exacerbation Eosinophilia Morbid obesity CARMELLA (obstructive sleep apnea) Chief Complaint FLU SHOT EORDER nucala URI-ON ATB BUT STILL COUGHING SOB nucala SCREENING SELF REFERRED discuss biologics PEP [place] Severe persistent asthma, uncomplicated Severe persistent asthma, uncomplicated [facility] ER FU F/U nucala Amb Documentation CP/ EDEMA nucala , 2 ordering doctors/e orders F/U BILATERAL LL INFILTRATES SHORTNESS OF BREATH Amb Documentation Reason for Visit Bilateral lower extr emity edema Shortness of breath Bilateral lower extremity edema Shortness of breath BMI 40.0-44.9, adult Morbid obesity CARMELLA (obstructive sleep apnea) Eosinophilia Morbid obesity CARMELLA (obstructive sleep apnea) Shortness of breath Essential hypertension Chief Complaint FLU SHOT EORDER nucala URI-ON ATB BUT STILL COUGHING SOB nucala SCREENING SELF REFERRED discuss biologics PEP [place] Severe persistent asthma, uncomplicated Severe persistent asthma, uncomplicated [facility] ER FU F/U nucala Amb Documentation CP/ EDEMA nucala , 2 ordering doctors/e orders F/U BILATERAL LL INFILTRATES SHORTNESS OF BREATH Amb Documentation SHORTNESS OF BREATH Reason for Visit Bilateral lower extr emity edema Shortness of breath Bilateral lower extremity edema Shortness of breath BMI 40.0-44.9, adult Morbid obesity CARMELLA (obstructive sleep apnea) Eosinophilia Morbid obesity CARMELLA (obstructive sleep apnea) Shortness of breath Essential hypertension History of coronary artery stent placement Essential hypertension Hyperlipidemia Chief Complaint nucala URI-ON ATB BUT STILL COUGHING SOB nucala SCREENING SELF REFERRED discuss biologics PEP [place] Severe persistent asthma, uncomplicated Severe persistent asthma, uncomplicated [facility] ER FU F/U nucala Amb Documentation CP/ EDEMA nucala , 2 ordering doctors/e orders F/U BILATERAL LL INFILTRATES SHORTNESS OF BREATH SHORTNESS OF BREATH Amb Documentation SHORTNESS OF BREATH NEED ORDER 6 wk FU RT ARM WOUND Reason for Visit Bilateral lower extr emity edema Shortness of breath Bilateral lower extremity edema Shortness of breath Asthmatic bronchitis with acute exacerbation BMI 40.0-44.9, adult Morbid obesity CARMELLA (obstructive sleep apnea) Eosinophilia Asthmatic bronchitis with acute exacerbation Morbid obesity CARMELLA (obstructive sleep apnea) Shortness of breath Essential hypertension History of coronary artery stent placement Essential hypertension Hyperlipidemia Eosinophilia Asthma Morbid obesity CARMELLA (obstructive sleep apnea) Abrasion of right forearm, initial encounter Chief Complaint nucala URI-ON ATB BUT STILL COUGHING SOB nucala SCREENING SELF REFERRED discuss biologics PEP [place] Severe persistent asthma, uncomplicated Severe persistent asthma, uncomplicated [facility] ER FU F/U nucala Amb Documentation CP/ EDEMA nucala , 2 ordering doctors/e orders F/U BILATERAL LL INFILTRATES SHORTNESS OF BREATH SHORTNESS OF BREATH Amb Documentation SHORTNESS OF BREATH NEED ORDER 6 wk FU RT ARM WOUND PCI w/coronary stenting 1 M FU Reason for Visit Bilateral lower extr emity edema Shortness of breath Bilateral lower extremity edema Shortness of breath Asthmatic bronchitis with acute exacerbation BMI 40.0-44.9, adult Morbid obesity CARMELLA (obstructive sleep apnea) Eosinophilia Asthmatic bronchitis with acute exacerbation Morbid obesity CARMELLA (obstructive sleep apnea) Shortness of breath Essential hypertension History of coronary artery stent placement Essential hypertension Hyperlipidemia Eosinophilia Asthma Morbid obesity CARMELLA (obstructive sleep apnea) Abrasion of right forearm, initial encounter Chief Complaint nucala URI-ON ATB BUT STILL COUGHING SOB nucala SCREENING SELF REFERRED discuss biologics PEP [place] Severe persistent asthma, uncomplicated Severe persistent asthma, uncomplicated [facility] ER FU F/U nucala Amb Documentation CP/ EDEMA nucala , 2 ordering doctors/e orders F/U BILATERAL LL INFILTRATES SHORTNESS OF BREATH SHORTNESS OF BREATH Amb Documentation SHORTNESS OF BREATH NEED ORDER 6 wk FU RT ARM WOUND PCI w/coronary stenting 1 M FU PCI with coronary stent WOUND Reason for Visit Bilateral lower extr emity edema Shortness of breath Bilateral lower extremity edema Shortness of breath Asthmatic bronchitis with acute exacerbation BMI 40.0-44.9, adult Morbid obesity CARMELLA (obstructive sleep apnea) Eosinophilia Asthmatic bronchitis with acute exacerbation Morbid obesity CARMELLA (obstructive sleep apnea) Shortness of breath Essential hypertension History of coronary artery stent placement Essential hypertension Hyperlipidemia Eosinophilia Asthma Morbid obesity CARMELLA (obstructive sleep apnea) Abrasion of right forearm, initial encounter Abrasion of right forearm, initial encounter Atherosclerosis of coronary artery of [place] heart without angina pectoris History of coronary artery stent placement Asthmatic bronchitis with acute exacerbation BMI 40.0-44.9, adult BPH (benign prostatic hyperplasia) Essential hypertension GERD (gastroesophageal reflux disease) Hyperlipidemia Abrasion of right forearm, initial encounter Atherosclerosis of coronary artery of [place] heart without angina pectoris CAD (coronary artery disease) Cataracts, bilateral Gout Hemorrhoids History of cataract extraction History of coronary artery stent placement History of lumbar discectomy History of tonsillectomy History of uvulectomy Multiple ecchymoses of both upper arms Recurrent kidney stones Skin tear of right elbow without complication Umbilical hernia Asthma BMI 40.0-44.9, adult BPH (benign prostatic hyperplasia) Chronic cough DDD (degenerative disc disease) Easy bruising Essential hypertension GERD (gastroesophageal reflux disease) Hyperlipidemia Morbid obesity CARMELLA (obstructive sleep apnea) Pre-diabetes [place] Chief Complaint URI-ON ATB BUT STILL COUGHING SOB nucala SCREENING SELF REFERRED discuss biologics PEP [place] Severe persistent asthma, uncomplicated Severe persistent asthma, uncomplicated [facility] ER FU F/U nucala Amb Documentation CP/ EDEMA nucala , 2 ordering doctors/e orders F/U BILATERAL LL INFILTRATES SHORTNESS OF BREATH SHORTNESS OF BREATH Amb Documentation SHORTNESS OF BREATH NEED ORDER 6 wk FU RT ARM WOUND PCI w/coronary stenting 1 M FU PCI with coronary stent WOUND nucala PCI with coronary stent Reason for Visit Bilateral lower extr emity edema Shortness of breath Bilateral lower extremity edema Shortness of breath Asthmatic bronchitis with acute exacerbation BMI 40.0-44.9, adult Morbid obesity CARMELLA (obstructive sleep apnea) Eosinophilia Asthmatic bronchitis with acute exacerbation Morbid obesity CARMELLA (obstructive sleep apnea) Shortness of breath Essential hypertension History of coronary artery stent placement Essential hypertension Hyperlipidemia Eosinophilia Asthma Morbid obesity CARMELLA (obstructive sleep apnea) Abrasion of right forearm, initial encounter Abrasion of right forearm, initial encounter Atherosclerosis of coronary artery of [place] heart without angina pectoris History of coronary artery stent placement Asthmatic bronchitis with acute exacerbation BMI 40.0-44.9, adult BPH (benign prostatic hyperplasia) Essential hypertension GERD (gastroesophageal reflux disease) Hyperlipidemia Abrasion of right forearm, initial encounter Atherosclerosis of coronary artery of [place] heart without angina pectoris CAD (coronary artery disease) Cataracts, bilateral Gout Hemorrhoids History of cataract extraction History of coronary artery stent placement History of lumbar discectomy History of tonsillectomy History of uvulectomy Multiple ecchymoses of both upper arms Recurrent kidney stones Skin tear of right elbow without complication Umbilical hernia Asthma BMI 40.0-44.9, adult BPH (benign prostatic hyperplasia) Chronic cough DDD (degenerative disc disease) Easy bruising Essential hypertension GERD (gastroesophageal reflux disease) Hyperlipidemia Morbid obesity CARMELLA (obstructive sleep apnea) Pre-diabetes [place] Chief Complaint URI-ON ATB BUT STILL COUGHING SOB nucala SCREENING SELF REFERRED discuss biologics PEP TX Severe persistent asthma, uncomplicated Severe persistent asthma, uncomplicated [facility] ER FU F/U nucala Amb Documentation CP/ EDEMA nucala , 2 ordering doctors/e orders F/U [facility] INFILTRATES SHORTNESS OF BREATH SHORTNESS OF BREATH Amb Documentation SHORTNESS OF BREATH NEED ORDER 6 wk FU RT ARM WOUND PCI w/coronary stenting 1 M FU PCI with coronary stent WOUND nucala PCI with coronary stent WOUND Reason for Visit Bilateral lower extr emity edema Shortness of breath Bilateral lower extremity edema Shortness of breath Asthmatic bronchitis with acute exacerbation BMI 40.0-44.9, adult Morbid obesity CARMELLA (obstructive sleep apnea) Eosinophilia Asthmatic bronchitis with acute exacerbation Morbid obesity CARMELLA (obstructive sleep apnea) Shortness of breath Essential hypertension History of coronary artery stent placement Essential hypertension Hyperlipidemia Eosinophilia Asthma Morbid obesity CARMELLA (obstructive sleep apnea) Abrasion of right forearm, initial encounter Abrasion of right forearm, initial encounter Atherosclerosis of coronary artery of [place] heart without angina pectoris History of coronary artery stent placement Asthmatic bronchitis with acute exacerbation BMI 40.0-44.9, adult BPH (benign prostatic hyperplasia) Essential hypertension GERD (gastroesophageal reflux disease) Hyperlipidemia Abrasion of right forearm, initial encounter Atherosclerosis of coronary artery of [place] heart without angina pectoris CAD (coronary artery disease) Cataracts, bilateral Gout Hemorrhoids History of cataract extraction History of coronary artery stent placement History of lumbar discectomy History of tonsillectomy History of uvulectomy Multiple ecchymoses of both upper arms Recurrent kidney stones Skin tear of right elbow without complication Umbilical hernia Asthma BMI 40.0-44.9, adult BPH (benign prostatic hyperplasia) Chronic cough DDD (degenerative disc disease) Easy bruising Essential hypertension GERD (gastroesophageal reflux disease) Hyperlipidemia Morbid obesity CARMELLA (obstructive sleep apnea) Pre-diabetes [place] Chief Complaint nucala SCREENING SELF REFERRED discuss biologics PEP TX Severe persistent asthma, uncomplicated Severe persistent asthma, uncomplicated [facility] ER FU F/U nucala Amb Documentation CP/ EDEMA nucala , 2 ordering doctors/e orders F/U [facility] INFILTRATES SHORTNESS OF BREATH SHORTNESS OF BREATH Amb Documentation SHORTNESS OF BREATH NEED ORDER 6 wk FU RT ARM WOUND PCI w/coronary stenting 1 M FU PCI with coronary stent WOUND nucala WOUND PCI with coronary stent FEVER, HEADACHE, FATIGUE Reason for Visit Bilateral lower extr emity edema Shortness of breath Asthmatic bronchitis with acute exacerbation BMI 40.0-44.9, adult Morbid obesity CARMELLA (obstructive sleep apnea) Eosinophilia Asthmatic bronchitis with acute exacerbation Morbid obesity CARMELLA (obstructive sleep apnea) Shortness of breath Essential hypertension History of coronary artery stent placement Essential hypertension Hyperlipidemia Eosinophilia Asthma Morbid obesity CARMELLA (obstructive sleep apnea) Abrasion of right forearm, initial encounter Abrasion of right forearm, initial encounter Atherosclerosis of coronary artery of [place] heart without angina pectoris History of coronary artery stent placement Asthmatic bronchitis with acute exacerbation BMI 40.0-44.9, adult BPH (benign prostatic hyperplasia) Essential hypertension GERD (gastroesophageal reflux disease) Hyperlipidemia Abrasion of right forearm, initial encounter Atherosclerosis of coronary artery of [place] heart without angina pectoris CAD (coronary artery disease) Cataracts, bilateral Gout Hemorrhoids History of cataract extraction History of coronary artery stent placement History of lumbar discectomy History of tonsillectomy History of uvulectomy Multiple ecchymoses of both upper arms Recurrent kidney stones Skin tear of right elbow without complication Umbilical hernia Asthma BMI 40.0-44.9, adult BPH (benign prostatic hyperplasia) Chronic cough DDD (degenerative disc disease) Easy bruising Essential hypertension GERD (gastroesophageal reflux disease) Hyperlipidemia Morbid obesity CARMELLA (obstructive sleep apnea) Pre-diabetes [place] Abrasion of right forearm, initial encounter Atherosclerosis of coronary artery of [place] heart without angina pectoris CAD (coronary artery disease) Cataracts, bilateral Gout Hemorrhoids History of cataract extraction History of coronary artery stent placement History of lumbar discectomy History of tonsillectomy History of uvulectomy Multiple ecchymoses of both upper arms Recurrent kidney stones Skin tear of right elbow without complication Umbilical hernia Asthma BMI 40.0-44.9, adult BPH (benign prostatic hyperplasia) Chronic cough DDD (degenerative disc disease) Easy bruising Essential hypertension GERD (gastroesophageal reflux disease) Hyperlipidemia Morbid obesity CARMELLA (obstructive sleep apnea) Pre-diabetes [place] COVID-19 Chief Complaint Severe persistent as thma, uncomplicated Severe persistent asthma, uncomplicated [facility] ER FU F/U nucala Amb Documentation CP/ EDEMA nucala , 2 ordering doctors/e orders F/U BILATERAL LL INFILTRATES SHORTNESS OF BREATH SHORTNESS OF BREATH Amb Documentation SHORTNESS OF BREATH NEED ORDER 6 wk FU RT ARM WOUND PCI w/coronary stenting 1 M FU PCI with coronary stent WOUND nucala WOUND PCI with coronary stent FEVER, HEADACHE, FATIGUE nucala S/P [facility] 2-10-23 WC SOB PCI with coronary stent Reason for Visit Bilateral lower extr emity edema Asthmatic bronchitis with acute exacerbation BMI 40.0-44.9, adult Morbid obesity CARMELLA (obstructive sleep apnea) Shortness of breath Eosinophilia Asthmatic bronchitis with acute exacerbation Morbid obesity CARMELLA (obstructive sleep apnea) Essential hypertension Shortness of breath History of coronary artery stent placement Essential hypertension Hyperlipidemia Eosinophilia Asthma Morbid obesity CARMELLA (obstructive sleep apnea) Abrasion of right forearm, initial encounter Abrasion of right forearm, initial encounter Atherosclerosis of coronary artery of [place] heart without angina pectoris History of coronary artery stent placement Asthmatic bronchitis with acute exacerbation BMI 40.0-44.9, adult BPH (benign prostatic hyperplasia) Essential hypertension GERD (gastroesophageal reflux disease) Hyperlipidemia Abrasion of right forearm, initial encounter Atherosclerosis of coronary artery of [place] heart without angina pectoris CAD (coronary artery disease) Cataracts, bilateral Gout Hemorrhoids History of cataract extraction History of coronary artery stent placement History of lumbar discectomy History of tonsillectomy History of uvulectomy Multiple ecchymoses of both upper arms Recurrent kidney stones Skin tear of right elbow without complication Umbilical hernia Asthma BMI 40.0-44.9, adult BPH (benign prostatic hyperplasia) Chronic cough DDD (degenerative disc disease) Easy bruising Essential hypertension GERD (gastroesophageal reflux disease) Hyperlipidemia Morbid obesity CARMELLA (obstructive sleep apnea) Pre-diabetes [place] Abrasion of right forearm, initial encounter Atherosclerosis of coronary artery of [place] heart without angina pectoris CAD (coronary artery disease) Cataracts, bilateral Gout Hemorrhoids History of cataract extraction History of coronary artery stent placement History of lumbar discectomy History of tonsillectomy History of uvulectomy Multiple ecchymoses of both upper arms Recurrent kidney stones Skin tear of right elbow without complication Umbilical hernia Asthma BMI 40.0-44.9, adult BPH (benign prostatic hyperplasia) Chronic cough DDD (degenerative disc disease) Easy bruising Essential hypertension GERD (gastroesophageal reflux disease) Hyperlipidemia Morbid obesity CARMELLA (obstructive sleep apnea) Pre-diabetes [place] COVID-19 History of coronary artery stent placement Essential hypertension Hyperlipidemia Shortness of breath Chief Complaint [facility]U F/U nucala Amb Documentation CP/ EDEMA nucala , 2 ordering doctors/e orders F/U BILATERAL LL INFILTRATES SHORTNESS OF BREATH SHORTNESS OF BREATH Amb Documentation SHORTNESS OF BREATH NEED ORDER 6 wk FU RT ARM WOUND PCI w/coronary stenting 1 M FU PCI with coronary stent WOUND nucala WOUND PCI with coronary stent FEVER, HEADACHE, FATIGUE nucala S/P [facility] 2-10-23 WC SOB PCI with coronary stent nucala Reason for Visit Bilateral lower extr emity edema Asthmatic bronchitis with acute exacerbation BMI 40.0-44.9, adult Morbid obesity CARMELLA (obstructive sleep apnea) Shortness of breath Eosinophilia Asthmatic bronchitis with acute exacerbation Morbid obesity CARMELLA (obstructive sleep apnea) Essential hypertension Shortness of breath History of coronary artery stent placement Essential hypertension Hyperlipidemia Eosinophilia Asthma Morbid obesity CARMELLA (obstructive sleep apnea) Abrasion of right forearm, initial encounter Abrasion of right forearm, initial encounter Atherosclerosis of coronary artery of [place] heart without angina pectoris History of coronary artery stent placement Asthmatic bronchitis with acute exacerbation BMI 40.0-44.9, adult BPH (benign prostatic hyperplasia) Essential hypertension GERD (gastroesophageal reflux disease) Hyperlipidemia Abrasion of right forearm, initial encounter Atherosclerosis of coronary artery of [place] heart without angina pectoris CAD (coronary artery disease) Cataracts, bilateral Gout Hemorrhoids History of cataract extraction History of coronary artery stent placement History of lumbar discectomy History of tonsillectomy History of uvulectomy Multiple ecchymoses of both upper arms Recurrent kidney stones Skin tear of right elbow without complication Umbilical hernia Asthma BMI 40.0-44.9, adult BPH (benign prostatic hyperplasia) Chronic cough DDD (degenerative disc disease) Easy bruising Essential hypertension GERD (gastroesophageal reflux disease) Hyperlipidemia Morbid obesity CARMELLA (obstructive sleep apnea) Pre-diabetes [place] Abrasion of right forearm, initial encounter Atherosclerosis of coronary artery of [place] heart without angina pectoris CAD (coronary artery disease) Cataracts, bilateral Gout Hemorrhoids History of cataract extraction History of coronary artery stent placement History of lumbar discectomy History of tonsillectomy History of uvulectomy Multiple ecchymoses of both upper arms Recurrent kidney stones Skin tear of right elbow without complication Umbilical hernia Asthma BMI 40.0-44.9, adult BPH (benign prostatic hyperplasia) Chronic cough DDD (degenerative disc disease) Easy bruising Essential hypertension GERD (gastroesophageal reflux disease) Hyperlipidemia Morbid obesity CARMELLA (obstructive sleep apnea) Pre-diabetes [place] COVID-19 History of coronary artery stent placement Essential hypertension Hyperlipidemia Shortness of breath Chief Complaint Amb Documentation CP/ EDEMA nucala , 2 ordering doctors/e orders F/U BILATERAL LL INFILTRATES SHORTNESS OF BREATH SHORTNESS OF BREATH Amb Documentation SHORTNESS OF BREATH NEED ORDER 6 wk FU RT ARM WOUND PCI w/coronary stenting 1 M FU PCI with coronary stent WOUND nucala WOUND PCI with coronary stent FEVER, HEADACHE, FATIGUE nucala S/P [facility] 2-10-23 [facility] SOB PCI with coronary stent nucala Possible pull muscle rt side INT RAD PCI with coronary stent Reason for Visit Essential hypertensi on Shortness of breath History of coronary artery stent placement Essential hypertension Hyperlipidemia Eosinophilia Asthma Morbid obesity CARMELLA (obstructive sleep apnea) Abrasion of right forearm, initial encounter Abrasion of right forearm, initial encounter Atherosclerosis of coronary artery of [place] heart without angina pectoris History of coronary artery stent placement Asthmatic bronchitis with acute exacerbation BMI 40.0-44.9, adult BPH (benign prostatic hyperplasia) Essential hypertension GERD (gastroesophageal reflux disease) Hyperlipidemia Abrasion of right forearm, initial encounter Atherosclerosis of coronary artery of [place] heart without angina pectoris CAD (coronary artery disease) Cataracts, bilateral Gout Hemorrhoids History of cataract extraction History of coronary artery stent placement History of lumbar discectomy History of tonsillectomy History of uvulectomy Multiple ecchymoses of both upper arms Recurrent kidney stones Skin tear of right elbow without complication Umbilical hernia Asthma BMI 40.0-44.9, adult BPH (benign prostatic hyperplasia) Chronic cough DDD (degenerative disc disease) Easy bruising Essential hypertension GERD (gastroesophageal reflux disease) Hyperlipidemia Morbid obesity CARMELLA (obstructive sleep apnea) Pre-diabetes [place] Abrasion of right forearm, initial encounter Atherosclerosis of coronary artery of [place] heart without angina pectoris CAD (coronary artery disease) Cataracts, bilateral Gout Hemorrhoids History of cataract extraction History of coronary artery stent placement History of lumbar discectomy History of tonsillectomy History of uvulectomy Multiple ecchymoses of both upper arms Recurrent kidney stones Skin tear of right elbow without complication Umbilical hernia Asthma BMI 40.0-44.9, adult BPH (benign prostatic hyperplasia) Chronic cough DDD (degenerative disc disease) Easy bruising Essential hypertension GERD (gastroesophageal reflux disease) Hyperlipidemia Morbid obesity CARMELLA (obstructive sleep apnea) Pre-diabetes [place] COVID-19 History of coronary artery stent placement Essential hypertension Hyperlipidemia Shortness of breath Rib pain on right side Thoracic back pain Chief Complaint CP/ EDEMA nucala , 2 ordering doctors/e orders F/U BILATERAL LL INFILTRATES SHORTNESS OF BREATH SHORTNESS OF BREATH Amb Documentation SHORTNESS OF BREATH NEED ORDER 6 wk FU RT ARM WOUND PCI w/coronary stenting 1 M FU PCI with coronary stent WOUND nucala WOUND PCI with coronary stent FEVER, HEADACHE, FATIGUE nucala S/P [facility] 2-10-23 [facility] SOB PCI with coronary stent nucala Possible pull muscle rt side INT RAD 3 M FU nucala PCI with coronary stent Reason for Visit Essential hypertensi on Shortness of breath History of coronary artery stent placement Essential hypertension Hyperlipidemia Eosinophilia Asthma Morbid obesity CARMELLA (obstructive sleep apnea) Abrasion of right forearm, initial encounter Abrasion of right forearm, initial encounter Atherosclerosis of coronary artery of [place] heart without angina pectoris History of coronary artery stent placement Asthmatic bronchitis with acute exacerbation BMI 40.0-44.9, adult BPH (benign prostatic hyperplasia) Essential hypertension GERD (gastroesophageal reflux disease) Hyperlipidemia Abrasion of right forearm, initial encounter Atherosclerosis of coronary artery of [place] heart without angina pectoris CAD (coronary artery disease) Cataracts, bilateral Gout Hemorrhoids History of cataract extraction History of coronary artery stent placement History of lumbar discectomy History of tonsillectomy History of uvulectomy Multiple ecchymoses of both upper arms Recurrent kidney stones Skin tear of right elbow without complication Umbilical hernia Asthma BMI 40.0-44.9, adult BPH (benign prostatic hyperplasia) Chronic cough DDD (degenerative disc disease) Easy bruising Essential hypertension GERD (gastroesophageal reflux disease) Hyperlipidemia Morbid obesity CARMELLA (obstructive sleep apnea) Pre-diabetes [place] Abrasion of right forearm, initial encounter Atherosclerosis of coronary artery of [place] heart without angina pectoris CAD (coronary artery disease) Cataracts, bilateral Gout Hemorrhoids History of cataract extraction History of coronary artery stent placement History of lumbar discectomy History of tonsillectomy History of uvulectomy Multiple ecchymoses of both upper arms Recurrent kidney stones Skin tear of right elbow without complication Umbilical hernia Asthma BMI 40.0-44.9, adult BPH (benign prostatic hyperplasia) Chronic cough DDD (degenerative disc disease) Easy bruising Essential hypertension GERD (gastroesophageal reflux disease) Hyperlipidemia Morbid obesity CARMELLA (obstructive sleep apnea) Pre-diabetes [place] COVID-19 History of coronary artery stent placement Essential hypertension Hyperlipidemia Shortness of breath Rib pain on right side Thoracic back pain Hypoxia Asthma BMI 40.0-44.9, adult CARMELLA (obstructive sleep apnea) Chief Complaint 1 M FU PCI with coronary stent WOUND nucala WOUND PCI with coronary stent FEVER, HEADACHE, FATIGUE nucala S/P [facility] 2--23 [facility] SOB PCI with coronary stent nucala Possible pull muscle rt side INT RAD 3 M FU nucala PCI with coronary stent PCI with coronary stent 4 M FU TEZSPIRE Reason for Visit Abrasion of right fo rearm, initial encounter Atherosclerosis of coronary artery of [place] heart without angina pectoris History of coronary artery stent placement Asthmatic bronchitis with acute exacerbation BMI 40.0-44.9, adult BPH (benign prostatic hyperplasia) Essential hypertension GERD (gastroesophageal reflux disease) Hyperlipidemia Abrasion of right forearm, initial encounter Atherosclerosis of coronary artery of [place] heart without angina pectoris CAD (coronary artery disease) Cataracts, bilateral Gout Hemorrhoids History of cataract extraction History of coronary artery stent placement History of lumbar discectomy History of tonsillectomy History of uvulectomy Multiple ecchymoses of both upper arms Recurrent kidney stones Skin tear of right elbow without complication Umbilical hernia Asthma BMI 40.0-44.9, adult BPH (benign prostatic hyperplasia) Chronic cough DDD (degenerative disc disease) Easy bruising Essential hypertension GERD (gastroesophageal reflux disease) Hyperlipidemia Morbid obesity CARMELLA (obstructive sleep apnea) Pre-diabetes [place] Abrasion of right forearm, initial encounter Atherosclerosis of coronary artery of [place] heart without angina pectoris CAD (coronary artery disease) Cataracts, bilateral Gout Hemorrhoids History of cataract extraction History of coronary artery stent placement History of lumbar discectomy History of tonsillectomy History of uvulectomy Multiple ecchymoses of both upper arms Recurrent kidney stones Skin tear of right elbow without complication Umbilical hernia Asthma BMI 40.0-44.9, adult BPH (benign prostatic hyperplasia) Chronic cough DDD (degenerative disc disease) Easy bruising Essential hypertension GERD (gastroesophageal reflux disease) Hyperlipidemia Morbid obesity CARMELLA (obstructive sleep apnea) Pre-diabetes [place] COVID-19 History of coronary artery stent placement Essential hypertension Hyperlipidemia Shortness of breath Rib pain on right side Thoracic back pain Hypoxia Asthma BMI 40.0-44.9, adult CARMELLA (obstructive sleep apnea) History of coronary artery stent placement Essential hypertension Hyperlipidemia Shortness of breath Chief Complaint nucala WOUND PCI with coronary stent FEVER, HEADACHE, FATIGUE nucala S/P [facility] 2-- [facility] SOB PCI with coronary stent nucala Possible pull muscle rt side INT RAD 3 M FU nucala PCI with coronary stent PCI with coronary stent 4 M FU TEZSPIRE Reason for Visit Abrasion of right fo rearm, initial encounter Atherosclerosis of coronary artery of [place] heart without angina pectoris CAD (coronary artery disease) Cataracts, bilateral Gout Hemorrhoids History of cataract extraction History of coronary artery stent placement History of lumbar discectomy History of tonsillectomy History of uvulectomy Multiple ecchymoses of both upper arms Recurrent kidney stones Skin tear of right elbow without complication Umbilical hernia Asthma BMI 40.0-44.9, adult BPH (benign prostatic hyperplasia) Chronic cough DDD (degenerative disc disease) Easy bruising Essential hypertension GERD (gastroesophageal reflux disease) Hyperlipidemia Morbid obesity CARMELLA (obstructive sleep apnea) Pre-diabetes [place] COVID-19 History of coronary artery stent placement Essential hypertension Hyperlipidemia Shortness of breath Rib pain on right side Thoracic back pain Hypoxia Asthma BMI 40.0-44.9, adult CARMELLA (obstructive sleep apnea) History of coronary artery stent placement Essential hypertension Hyperlipidemia Shortness of breath Chief Complaint PCI with coronary st ent FEVER, HEADACHE, FATIGUE nucala S/P [facility] 08-15-22 WC SOB PCI with coronary stent nucala Possible pull muscle rt side INT RAD 3 M FU nucala PCI with coronary stent PCI with coronary stent 4 M FU TEZSPIRE COPD EXACERBATION Reason for Visit COVID-19 History of coronary artery stent placement Essential hypertension Hyperlipidemia Shortness of breath Rib pain on right side Thoracic back pain Hypoxia Asthma BMI 40.0-44.9, adult CARMELAL (obstructive sleep apnea) History of coronary artery stent placement Essential hypertension Hyperlipidemia Shortness of breath Acute bronchitis Eosinophilia Hypoxia Asthma Chronic cough Chief Complaint PCI with coronary st ent FEVER, HEADACHE, FATIGUE nucala S/P [facility] 08-15-22 WC SOB PCI with coronary stent nucala Possible pull muscle rt side INT RAD 3 M FU nucala PCI with coronary stent PCI with coronary stent 4 M FU TEZSPIRE COPD EXACERBATION COPD EXACERBATION COPD EXACERBATION COPD EXACERBATION COPD EXACERBATION Reason for Visit COVID-19 History of coronary artery stent placement Essential hypertension Hyperlipidemia Shortness of breath Rib pain on right side Thoracic back pain Hypoxia Asthma BMI 40.0-44.9, adult CARMELLA (obstructive sleep apnea) History of coronary artery stent placement Essential hypertension Hyperlipidemia Shortness of breath Acute bronchitis Asthma exacerbation Eosinophilia Haemophilus influenzae pneumonia Hypoxia Asthma Chronic cough COPD exacerbation Chief Complaint 4 M FU TEZSPIRE COPD EXACERBATION COPD EXACERBATION COPD EXACERBATION COPD EXACERBATION COPD EXACERBATION Hospital FU [facility] ER FU TEZSPIRE TEZSPIRE TEZSPIRE Possible Hernias TEZSPIRE Reason for Visit History of coronary artery stent placement Essential hypertension Hyperlipidemia Shortness of breath Acute bronchitis Hypoxia Asthma exacerbation Haemophilus influenzae pneumonia BMI 40.0-44.9, adult CARMELLA (obstructive sleep apnea) Asthma exacerbation Haemophilus influenzae pneumonia Asthma exacerbation Haemophilus influenzae pneumonia Easy bruising Essential hypertension Hyperlipidemia Chief Complaint Hospital FU [facility] ER FU TEZSPIRE TEZSPIRE TEZSPIRE Possible Hernias TEZSPIRE Diabetes TEZSPIRE Reason for Visit BMI 40.0-44.9, adult CARMELLA (obstructive sleep apnea) Asthma exacerbation Haemophilus influenzae pneumonia Asthma exacerbation Haemophilus influenzae pneumonia Easy bruising Essential hypertension Hyperlipidemia Chief Complaint TEZSPIRE TEZSPIRE Possible Hernias TEZSPIRE Diabetes TEZSPIRE TEZSPIRE Reason for Visit Easy bruising Essential hypertension Hyperlipidemia Chief Complaint TEZSPIRE Possible Hernias TEZSPIRE Diabetes TEZSPIRE TEZSPIRE 6 M FU TEZSPIRE Reason for Visit Easy bruising Essential hypertension Hyperlipidemia Essential hypertension History of coronary artery stent placement Hyperlipidemia Shortness of breath Chief Complaint TEZSPIRE Diabetes TEZSPIRE TEZSPIRE 6 M FU TEZSPIRE TEZSPIRE Reason for Visit Essential hypertensi on History of coronary artery stent placement Hyperlipidemia Shortness of breath Chief Complaint TEZSPIRE TEZSPIRE 6 M FU TEZSPIRE TEZSPIRE TEZSPIRE Reason for Visit Essential hypertensi on History of coronary artery stent placement Hyperlipidemia Shortness of breath Chief Complaint TEZSPIRE 6 M FU TEZSPIRE TEZSPIRE TEZSPIRE TEZSPIRE Reason for Visit Essential hypertensi on History of coronary artery stent placement Hyperlipidemia Shortness of breath Chief Complaint TEZSPIRE TEZSPIRE TEZSPIRE TEZSPIRE LT Leg/Knee Pain, Edema MASS LT THIGH, LLE SWELLING Reason for Visit Other specified prur itic conditions Swelling of left lower extremity Chief Complaint TEZSPIRE TEZSPIRE TEZSPIRE TEZSPIRE LT Leg/Knee Pain, Edema MASS LT THIGH, LLE SWELLING TEZSPIRE Reason for Visit Other specified prur itic conditions Swelling of left lower extremity Chief Complaint Admit Date IRE May 20, 2024 9:55am BRONCHIECTASIS-NOT PENT TX SPUTUM IN DUCTION May 31, 2024 9:21am TEZSPIRE June 17, 2024 9:37am TEZSPIRE July 15, 2024 9 :23am TEZSPIRE August 12, 2024 1 0:04am TEZSPIRE September 09, 2024 10:0 8am Chief Complaint Admit Date IRE August 12, 2024 1 0:04am TEZSPIRE September 09, 2024 10:0 8am TEZSPIRE October 07, 2024 10:0 4am TEZSPIRE November 04, 2024 10:00a m 1 Y November 10, 2024 2:52pm TEZSPIRE December 02, 2024 10:34 am Reason for Visit Admit Date Essential hypertension November 10, 2024 2:5 2pm History of coronary artery stent placeme nt November 10, 2024 2:52pm Hyperlipidemia November 10, 2024 2:52pm Chief Complaint Admit Date TEZSPIRE September 09, 2024 10:0 8am TEZSPIRE October 07, 2024 10:0 4am TEZSPIRE November 04, 2024 10:00a m 1 Y November 10, 2024 2:52pm TEZSPIRE December 02, 2024 10:34 am SOB, DYSPNEA December 16, 2024 7:38 am Amb Documentation December 19, 2024 8:47 am Chief Complaint Admit Date TEZSPIRE November 04, 2024 10:00a m 1 Y November 10, 2024 2:52pm TEZSPIRE December 02, 2024 10:34 am SOB, DYSPNEA December 16, 2024 7:38 am Amb Documentation December 19, 2024 8:47 am TEZSPIRE December 30, 2024 10:2 2am TEZSPIRE January 27, 2025 9:53 am E ORDERS February 08, 2025 9:3 5am Chief Complaint Admit Date TEZSPIRE November 04, 2024 10:00a m 1 Y FU November 10, 2024 2:52pm TEZSPIRE December 02, 2024 10:34 am SOB, DYSPNEA December 16, 2024 7:38 am Amb Documentation December 19, 2024 8:47 am TEZSPIRE December 30, 2024 10:2 2am TEZSPIRE January 27, 2025 9:53 am E ORDERS February 08, 2025 9:3 5am TEZSPIRE February 24, 2025 9: 55am Chief Complaint Admit Date SOB, DYSPNEA December 16, 2024 7:38 am Amb Documentation December 19, 2024 8:47 am TEZSPIRE December 30, 2024 10:2 2am TEZSPIRE January 27, 2025 9:53 am E ORDERS February 08, 2025 9:3 5am TEZSPIRE February 24, 2025 9: 55am TEZSPIRE March 24, 2025 10:12am Chief Complaint Admit Date TEZSPIRE January 27, 2025 9:53 am E ORDERS February 08, 2025 9:3 5am TEZSPIRE February 24, 2025 9: 55am TEZSPIRE March 24, 2025 10:12am TEZSPIRE April 21, 2025 1 0:00am Reason for Referral Specialty Diagnoses / Procedures Referred By Matthew t Referred To Contact CT IMAGING Diagnoses Recurrent pneumonia Procedures CT CHEST WO IVCON DIAGNOSTIC COMPUTED TOMOGRAPHY THORAX W/O CNTRST Shabana Ramos MD [address] [place] [address] Ct Imaging Referral ID Status Reason Start Date Expiration Date Visits Requested Visits Authorized [id number] Authorized Auto-Generat ed Referral 01/16/2023 02/15/2024 1 1 Specialty Diagnoses / Procedures Referred By Matthew melendez Referred To [facility] RESPIRATORY TRACY Diagnoses Asthma, unspecified asthma severity, unspecified whether complicated, unspecified whether persistent Procedures NITRIC OXIDE, EXHALED NITRIC OXIDE GAS DETERMINATION Shabana Ramos MD [address] [place] [address] [address] Referral ID Status Reason Start Date Expiration Date Visits Requested Visits Authorized [id number] Pending Review Auto-Generat ed Referral 01/16/2023 02/15/2024 1 1 Specialty Diagnoses / [facility] RESPIRATORY TRACY Diagnoses Asthma, unspecified asthma severity, unspecified whether complicated, unspecified whether persistent Procedures SPIROMETRY WITH DILATOR IF OBSTRUCTED BRNCDILAT RSPSE SPMTRY PRE&POST-BRNCDILAT ADMN Shabana Ramos MD [address] [place] [address] [place] [address] Referral ID Status Reason Start Date Expiration Date V isits Requested Visits Authorized [id number] Closed Auto-Generated Referral Patient Cleared - INN Insurance Found 01/16/2023 02/15/2024 1 1 Specialty Diagnoses / Procedures Referred By Matthew melendez Referred To Contact Allergy Diagnoses Hypogammaglobulinemia (HCC) Procedures CONSULT TO ALLERGY/IMMUNOLOGY OFFICE/OUTPATIENT [facility] 60-74 MINUTES Shabana Ramos MD [address] [place] [address] Referral ID Status Reason Start Date Expiration Date Visits Requested Visits Authorized [id number] Authorized PCP Requested Referral 02/13/2023 02/13/2024 1 1 Additional Source Comments (unrecognized sect ion and content) No Status Records FoundNo Status Records FoundNo Status Records Found INFORMATION SOURCE (unrecogn ized section and content) DATE CREATED AUTHOR 12/29/2017 [facility] DATE CREATED AUTHOR AUTHOR'S ORGANIZ ATION 04/08/2025 [facility] DATE CREATED AUTHOR AUTHOR'S ORGANIZ ATION 05/14/2025 [facility] Goals (unrecognized section and content) Goals may be documented in a n alternate sectionGoals may be documented in an alternate sectionGoals may be documented in an alternate sectionGoals may be documented in an alternate sectionGoals may be documented in an alternate sectionGoals may be documented in an alternate sectionGoals may be documented in an alternate sectionGoals may be documented in an alternate sectionGoals may be documented in an alternate sectionGoals may be documented in an alternate sectionGoals may be documented in an alternate sectionGoals may be documented in an alternate sectionGoals may be documented in an alternate sectionGoals may be documented in an alternate sectionGoals may be documented in an alternate sectionGoals may be documented in an alternate sectionGoals may be documented in an alternate sectionGoals may be documented in an alternate sectionGoals may be documented in an alternate sectionGoals may be documented in an alternate sectionGoals may be documented in an alternate sectionGoals may be documented in an alternate sectionGoals may be documented in an alternate sectionGoals may be documented in an alternate sectionGoals may be documented in an alternate sectionGoals may be documented in an alternate sectionGoals may be documented in an alternate sectionGoals may be documented in an alternate sectionGoals may be documented in an alternate sectionGoals may be documented in an alternate sectionGoals may be documented in an alternate sectionGoals may be documented in an alternate section Care Teams (unrecognized sec tion and content) Team Status: Active Member Role Status Dates Dr. Justin Massey MD Family Provider Active Dr. Art Ureña MD Primary Care Provider Active Team Status: Inactive Member Role Status Dates Dr. Art Ureña MD Primary Care Provider, Referri ng Provider Active Dr. Fabio Theodore MD Attending Provider Active Team Status: Inactive Member Role Status Dates Dr. Art Ureña MD Primary Care Pro vider, Attending Provider, Referring Provider Active Team Status: Inactive Member Role Status Dates Dr. Art Ureña MD Primary Care Provider, Referri ng Provider Active Azul Cordova SENIOR TEST ENGINEER, SENIOR TEST ENGINEER-C Attending Provider Active Team Status: Inactive Member Role Status Dates Dr. Art Ureña MD Primary Care Provider, Referri ng Provider Active Ed Ruiz PA, PA Attending Provider Active Team Status: Active Member Role Status Dates Dr. Art Ureña MD Primary Care Provider Active Dr. Kulwant Scott MD Attending Provider Active Team Status: Active Member Role Status Dates Dr. Art Ureña MD Primary Care Provider Active Azul Cordova SENIOR TEST ENGINEER, SENIOR TEST ENGINEER-C Referring Provider, Other Pr ovider Active Dr. Carlo Ramos DO Attending Provider Active Team Status: Inactive Member Role Status Dates Dr. Art Ureña MD Primary Care Provider, Attendi ng Provider Active Team Status: Inactive Member Role Status Dates Dr. Art Ureña MD Primary Care Provider Active Azul Cordova SENIOR TEST ENGINEER, SENIOR TEST ENGINEER-C Attending Provider, Referrin g Provider Active Team Status: Inactive Member Role Status Dates Dr. Art Ureña MD Primary Care Provider Active Dr. Fabio Theodore MD Attending Provider, Referring Pr ovider Active Team Status: Active Member Role Status Dates Dr. Art Ureña MD Primary Care Provider Active Self Referred Attending Provider Active Team Status: Inactive Member Role Status Dates Dr. Art Ureña MD Primary Care Provider Active Dr. Eduard Diaz MD Attending Provider, Emergency Provi willy Active Team Status: Inactive Member Role Status Dates Dr. Art Ureña MD Primary Care Provider Active Azul Cordova SENIOR TEST ENGINEER, SENIOR TEST ENGINEER-C Attending Provider Active Team Status: Inactive Member Role Status Dates Dr. Art Ureña MD Primary Care Provider, Referri ng Provider Active Dr. Zbigniew [place] MD Attending Provider Active Team Status: Active Member Role Status Dates Dr. Art Ureña MD Primary Care Provider Active Ladan Galarza Attending Provider Active Team Status: Inactive Member Role Status Dates Dr. Art Ureña MD Primary Care Provider Active Azul Cordova SENIOR TEST ENGINEER, SENIOR TEST ENGINEER-C Attending Provider, Referrin g Provider Active Dr. Zbigniew [place] MD Other Provider Active Team Status: Active Member Role Status Dates Dr. Art Ureña MD Primary Care Provider Active Dr. Fabio Theodore MD Attending Provider Active Team Status: Active Member Role Status Dates Dr. Art Ureña MD Primary Care Provider Active Dr. Zbigniew [place] MD Admit Provider, Attending Provide r Active Team Status: Active Member Role Status Dates Dr. Art Ureña MD Primary Care Provider Active Dr. Zbigniew [place] MD Admit Provider, Att ending Provider, Other Provider Active Team Status: Inactive Member Role Status Dates Dr. Art Ureña MD Primary Care Provider Active Dr. Zbigniew [place] MD Admit Provider, Attending Provide r Active Team Status: Active Member Role Status Dates Dr. Art Ureña MD Primary Care Provider Active Dr. Zbigniew [place] MD Attending Provider, Referring Pro vider Active Team Status: Inactive Member Role Status Dates Dr. Art Ureña MD Primary Care Provider, Referri ng Provider Active Kunal GOLDEN, PA Attending Provider Active Team Status: Inactive Member Role Status Dates Dr. Art Ureña MD Primary Care Provider Active Dr. Fabio Theodore MD Attending Provider Active Team Status: Active Member Role Status Dates Dr. Art Ureña MD Primary Care Provider, Attendi ng Provider Active Team Status: Inactive Member Role Status Dates Dr. Art Ureña MD Primary Care Provider Active Dr. Zbigniew [place] MD Attending Provider Active Team Status: Inactive Member Role Status Dates Dr. Art Ureña MD Primary Care Provider Active Dr. Aron Gruber MD Attending Provider Active Team Status: Inactive Member Role Status Dates Dr. Art Ureña MD Primary Care Provider Active Dr. Zbigniew [place] MD Attending Provider, Referring Pro vider Active Team Status: Inactive Member Role Status Dates Dr. Art Ureña MD Primary Care Provider Active Dr. Aron Gruber MD Attending Provider, Referring P rovider Active Team Status: Inactive Member Role Status Dates Dr. Art Ureña MD Primary Care Provider, Referri ng Provider Active Dr. Zbigniew [place] MD Active James Tracey SENIOR TEST ENGINEER, SENIOR TEST ENGINEER-C Attending Provider Active Team Status: Active Member Role Status Dates Dr. Art Ureña MD Primary Care Provider Active Dr. Josiah Rushing MD Emergency Provider Active Dr. Jerman Vigil MD Admit Provider, Attending Provider, Referring Provider Active Team Status: Active Member Role Status Dates Dr. Art Ureña MD Primary Care Provider Active Dr. Josiah Rushing MD Emergency Provider Active Dr. Jerman Vigil MD Admit Provider, Referring Provider, Other Provider Active Dr. Tere Mariee DO Attending Provider, Other Provide r Active Team Status: Active Member Role Status Dates Dr. Art Ureña MD Primary Care Provider Active Dr. Josiah Rushing MD Emergency Provider Active Dr. Jerman Vigil MD Admit Provider, Referring Provider, Other Provider Active Dr. Pa Wilson DO Attending Provider, Other Provid er Active Dr. Tere Mariee DO Other Provider Active Team Status: Active Member Role Status Dates Dr. Art Ureña MD Primary Care Provider Active Dr. Josiah Rushing MD Emergency Provider Active Dr. Jerman Vigil MD Admit Provider, Referring Provider, Other Provider Active Dr. Tere Mariee , Other Provider Active Dr. Pa Wilson DO Attending Provider, Other Provid er Active Team Status: Inactive Member Role Status Dates Dr. Art Ureña MD Primary Care Provider Active Dr. Josiah Rushing MD Emergency Provider Active Dr. Jerman Vigil MD Admit Provider, Referring Provider, Other Provider Active Dr. Tere Mariee DO Other Provider Active Dr. Pa Wilson DO Attending Provider Active Offset Duplicating Machine Operator Relationship Specialty Start Date End Date Art Ureña MD [address] [facility] [address] [place] [address] PCP - General Internal Medicine 01/16/23 Offset Duplicating Machine Operator Relationship Specialty Start Date End Date Art Ureña MD [address] [facility] [address] [place] [address] PCP - General Internal Medicine 01/16/23 Offset Duplicating Machine Operator Relationship Specialty Start Date End Date Art Ureña MD [address] [address] [place] [address] PCP - General Internal Medicine 01/16/23 Offset Duplicating Machine Operator Relationship Specialty Start Date End Date Art Ureña MD [address] [address] [place] [address] PCP - General Internal Medicine 01/16/23 Offset Duplicating Machine Operator Relationship Specialty Start Date End Date Art Ureña MD [address] [address] [place] [address] PCP - General Internal Medicine 01/16/23 Offset Duplicating Machine Operator Relationship Specialty Start Date End Date Art Ureña MD [address] [address] [place] [address] PCP - General Internal Medicine 01/16/23 Offset Duplicating Machine Operator Relationship Specialty Start Date End Date Art Ureña MD [address] [address] [place] [address] PCP - General Internal Medicine 01/16/23 Offset Duplicating Machine Operator Relationship Specialty Start Date End Date Art Ureña MD [address] [address] [place] [address] PCP - General Internal Medicine 01/16/23 Offset Duplicating Machine Operator Relationship Specialty Start Date End Date Art Ureña MD [address] [address] [place] [address] PCP - General Internal Medicine 01/16/23 Offset Duplicating Machine Operator Relationship Specialty Start Date End Date Art Ureña MD [address] [facility] [address] [place] [address] PCP - General Internal Medicine 01/16/23 Team Status: Active Member Role Status Dates Dr. Art Ureña MD Primary Care Provider Active Dr. Josiah Rushing MD Emergency Provider Active Dr. Jerman Vigil MD Admit Provider, Other Provide r Active Dr. Tere Mariee , Attending Provider, Other Provide r Active Team Status: Active Member Role Status Dates Dr. Art Ureña MD Primary Care Provider Active Dr. Josiah Rushing MD Emergency Provider Active Dr. Jerman Vigil MD Admit Provider, Other Provide r Active Dr. Pa Wilson , Attending Provider, Other Provid er Active Dr. Tere Mariee , Other Provider Active Team Status: Active Member Role Status Dates Dr. Art Ureña MD Primary Care Provider Active Dr. Josiah Rushing MD Emergency Provider Active Dr. Jerman Vigil MD Admit Provider, Other Provide r Active Dr. Tere Mariee , Other Provider Active Dr. Pa Wilson , Attending Provider, Other Provid er Active Team Status: Inactive Member Role Status Dates Dr. Art Ureña MD Referring Provider Active Dr. Fabio Theodore MD Attending Provider Active Team Status: Inactive Member Role Status Dates Dr. Art Ureña MD Attending Provider Active Team Status: Inactive Member Role Status Dates Azul Cordova SENIOR TEST ENGINEER, SENIOR TEST ENGINEER-C Attending Provider, Referrin g Provider Active Team Status: Inactive Member Role Status Dates Azul Cordova SENIOR TEST ENGINEER, SENIOR TEST ENGINEER-C Attending Provider, Referrin g Provider Active Dr. Art Ureña MD Primary Care Provider Active Offset Duplicating Machine Operator Relationship Specialty Start Date End Date Art Ureña MD [address] [facility] [address] [place] [address] PCP - General Internal Medicine 01/16/23 Team Status: Inactive Member Role Status Dates Dr. Art Ureña MD Primary Care Provider, Referri ng Provider Active Dr. Pierce Huff MD Attending Provider Active Offset Duplicating Machine Operator Relationship Specialty Start Date End Date Art Ureña MD [address] [address] [place] [address] PCP - General Internal Medicine 01/16/23 Team Status: Inactive Member Role Status Dates Dr. Art Ureña MD Primary Care Provider, Referri Provider Active James Tracey SENIOR TEST ENGINEER, SENIOR TEST ENGINEER-C Attending Provider Active Offset Duplicating Machine Operator Relationship Specialty Start Date End Date Art Ureña MD [address] [address] [place] [address] PCP - General Internal Medicine 01/16/23 Offset Duplicating Machine Operator Relationship Specialty Start Date End Date Art Ureña MD [address] [address] [place] [address] PCP - General Internal Medicine 01/16/23 Offset Duplicating Machine Operator Relationship Specialty Start Date End Date Art Ureña MD [address] [address] [place] [address] PCP - General Internal Medicine 01/16/23 Offset Duplicating Machine Operator Relationship Specialty Start Date End Date Art Ureña MD [address] [address] [place] [address] PCP - General Internal Medicine 01/16/23 Offset Duplicating Machine Operator Relationship Specialty Start Date End Date Art Ureña MD [address] [address] [place] [address] PCP - General Internal Medicine 01/16/23 Offset Duplicating Machine Operator Relationship Specialty Start Date End Date Art Ureña MD [address] [address] [place] [address] PCP - General Internal Medicine 01/16/23 Offset Duplicating Machine Operator Relationship Specialty Start Date End Date Art Ureña MD [address] [address] [place] [address] PCP - General Internal Medicine 01/16/23 Offset Duplicating Machine Operator Relationship Specialty Start Date End Date Art Ureña MD [address] [address] [place] [address] PCP - General Internal Medicine 01/16/23 Offset Duplicating Machine Operator Relationship Specialty Start Date End Date Art Ureña MD [address] [place] [address] PCP - General Internal Medicine 01/16/23 Offset Duplicating Machine Operator Relationship Specialty Start Date End Date Art Ureña MD [address] [place] [address] PCP - General Internal Medicine 01/16/23 Offset Duplicating Machine Operator Relationship Specialty Start Date End Date Art Ureña MD [address] [place] [address] PCP - General Internal Medicine 01/16/23 Offset Duplicating Machine Operator Relationship Specialty Start Date End Date Wale Floyd DO [address] [place] [address] PCP - General Family Medicine 08/26/24 Offset Duplicating Machine Operator Relationship Specialty Start Date End Date Wale Floyd DO [address] [place] [address] PCP - General Family Medicine 08/26/24 [place] Maldonado, LABEL TACKER.CAKE ICER [address] [place] [address] Recordist Chief Family Medicine 09/16/24 [facility].CAKE ICER [address] [place], [place] [id number] [facility] 09/16/24 Offset Duplicating Machine Operator Relationship Specialty Start Date End Date Wale Floyd DO [address] [place], [place] [address] PCP - General Family Medicine 08/26/24 [place] Maldonado, LABEL TACKER.CAKE ICER [address] [place], [place] [id number] [facility] 09/16/24 [facility] LABEL TACK[facility].CAKE ICER [address] [place], [place] [id number] [facility] 09/16/24 Team Status: Active Member Role Status Dates Dr. Art Ureña MD Primary Care Provider Active Team Status: Inactive Member Role Status Dates Dr. Art Ureña MD Primary Care Provider Active Start: May 20, 2024 End: May 20, 2024 Elena Dior MD Attending Provider Active Start : May 20, 2024 End: May 20, 2024 Elena Dior MD Referring Provider Active Start : May 20, 2024 End: May 20, 2024 Team Status: Inactive Member Role Status Dates Dr. Art Ureña MD Primary Care Provider Active Start: May 31, 2024 End: May 31, 2024 Dr. Shabana Ramos MD Attending Provider Active Start: May 31, 2024 End: May 31, 2024 Dr. Shabana Ramos MD Referring Provider Active Start: May 31, 2024 End: May 31, 2024 Team Status: Inactive Member Role Status Dates Dr. Art Ureña MD Primary Care Provider Active Start: June 17, 2024 End: June 17, 2024 Elena Dior MD Attending Provider Active Start : June 17, 2024 End: June 17, 2024 Elena Dior MD Referring Provider Active Start : June 17, 2024 End: June 17, 2024 Team Status: Inactive Member Role Status Dates Dr. Art Ureña MD Primary Care Provider Active Start: July 15, 2024 End: July 15, 2024 Elena Dior MD Attending Provider Active Start : July 15, 2024 End: July 15, 2024 Elena Dior MD Referring Provider Active Start : July 15, 2024 End: July 15, 2024 Team Status: Inactive Member Role Status Dates Dr. Art Ureña MD Primary Care Provider Active Start: August 12, 2024 End: August 12, 2024 Elena Dior MD Attending Provider Active Start : August 12, 2024 End: August 12, 2024 Elena Dior MD Referring Provider Active Start : August 12, 2024 End: August 12, 2024 Team Status: Inactive Member Role Status Dates Dr. Art Ureña MD Primary Care Provider Active Start: September 09, 2024 End: September 09, 2024 Elena Dior MD Attending Provider Active Start : September 09, 2024 End: September 09, 2024 Elena Dior MD Referring Provider Active Start : September 09, 2024 End: September 09, 2024 Offset Duplicating Machine Operator Relationship Specialty Start Date End Date Wale Floyd DO [address] [place], [place] [address] PCP - General Family Medicine 08/26/24 [employer]ang, LABEL TACKER.CAKE ICER [address] [place], [place] [address] Recordist Chief Family Medicine 09/16/24 Offset Duplicating Machine Operator Relationship Specialty Start Date End Date Wale Floyd DO [address] [place], [place] [address] PCP - General Family Medicine 08/26/24 [employer]ang, LABEL TACKER.CAKE ICER [address] [place], [place] [address] Recordist Chief Family Medicine 09/16/24 Offset Duplicating Machine Operator Relationship Specialty Start Date End Date Wale Floyd DO [address] [facility] [place] [address] PCP - General Family Medicine 08/26/24 Fang Mayen, LABEL TACKER.CAKE ICER [address] [place] [address] Recordist Chief Family Medicine 09/16/24 Offset Duplicating Machine Operator Relationship Specialty Start Date End Date Wale Floyd DO [address] [place] [address] PCP - General Family Medicine 08/26/24 [place] Maldonado, LABEL TACKER.CAKE ICER [address] [place] [address] Recordist Chief Family Medicine 09/16/24 09/23/24 Fang Mayen, LABEL TACKER.CAKE ICER [address] [place] [address] Recordist Chief Family Medicine 09/16/24 Offset Duplicating Machine Operator Relationship Specialty Start Date End Date Wale Floyd DO [address] [place] [address] PCP - General Family Medicine 08/26/24 Fang Mayen, LABEL TACKER.CAKE ICER [address] [place] [address] Recordist Chief Family Medicine 09/16/24 Offset Duplicating Machine Operator Relationship Specialty Start Date End Date Wale Floyd DO [address] [place] [address] PCP - General Family Medicine 08/26/24 Fang Mayen, LABEL TACKER.CAKE ICER [address] [place], [place] [address] [facility] Offset Duplicating Machine Operator Relationship Specialty Start Date End Date Wale Floyd DO [address] [place] [address] PCP - General Family Medicine 08/26/24 Jamaica Maldonado, LABEL TACKER.CAKE ICER [address] [place], [place] [address] [facility] 09[facility]16/24 09/23/24 Fang Mayen, LABEL TACKER.CAKE ICER [address] [place] [address] [facility] 09/16/24 Team Status: Active Member Role Status Dates Dr. Wale Floyd DO Primary Care Provider Active Team Status: Inactive Member Role Status Dates Dr. Art Ureña MD Primary Care Provider Active Start: October 07, 2024 End: October 07, 2024 Elena Dior MD Attending Provider Active Start : October 07, 2024 End: October 07, 2024 Elena Dior MD Referring Provider Active Start : October 07, 2024 End: October 07, 2024 Team Status: Inactive Member Role Status Dates Dr. Art Ureña MD Primary Care Provider Active Start: November 04, 2024 End: November 04, 2024 Elena Dior MD Attending Provider Active Start : November 04, 2024 End: November 04, 2024 Elena Dior MD Referring Provider Active Start : November 04, 2024 End: November 04, 2024 Team Status: Inactive Member Role Status Dates Dr. Art Ureña MD Referring Provider Active Start: November 10, 2024 End: November 10, 2024 Dr. Zbigniew Arrington MD Attending Provider Active S tart: November 10, 2024 End: November 10, 2024 Dr. Wale Floyd DO Primary Care Provider Active Start: November 10, 2024 End: November 10, 2024 Team Status: Inactive Member Role Status Dates Elena Dior MD Attending Provider Active Start : December 02, 2024 End: December 02, 2024 Elena Dior MD Referring Provider Active Start : December 02, 2024 End: December 02, 2024 Dr. Wale Floyd DO Primary Care Provider Active Start: December 02, 2024 End: December 02, 2024 Offset Duplicating Machine Operator Relationship Specialty Start Date End Date Wale Floyd DO [address] [place] [address] PCP - General Family Medicine 08/26/24 Fang Mayen, LABEL TACKER.CAKE ICER [address] [place] [address] [facility] 09/16/24 Offset Duplicating Machine Operator Relationship Specialty Start Date End Date Wale Floyd DO [address] [place] [address] PCP - General Family Medicine 08/26/24 TiarraFang, LABEL TACKER.CAKE ICER [address] [place] [address] Recordist Chief Family Medicine 09/16/24 Celena Polanco, LABEL TACKER.CAKE ICER [address] [facility] [place] [address] [facility] 12/19/24 Offset Duplicating Machine Operator Relationship Specialty Start Date End Date Wale Floyd DO [address] [place] [address] PCP - General Family Medicine 08/26/24 TiarraFang hudson, LABEL TACKER.CAKE ICER [address] [place] [address] [facility] 09/16/24 Celena Polanco, LABEL TACKER.CAKE ICER [address] [place], [place] [address] [facility] 12/19/24 Team Status: Inactive Member Role Status Dates Dr. Wale Floyd DO Primary Care Provider Active Start: December 16, 2024 End: December 16, 2024 Dr. Zbigniew Arrington MD Attending Provider Active S tart: December 16, 2024 End: December 16, 2024 Dr. Zbigniew Arrington MD Referring Provider Active S tart: December 16, 2024 End: December 16, 2024 Team Status: Active Member Role Status Dates Dr. Wale Floyd DO Primary Care Provider Active Start: December 16, 2024 Dr. Zbigniew Arrington MD Attending Provider Active S tart: December 16, 2024 Team Status: Active Member Role Status Dates Dr. Wale Floyd DO Primary Care Provider Active Start: December 19, 2024 Ana Johnson SENIOR TEST ENGINEER, SENIOR TEST ENGINEER-C Attending Provider Active Start: December 19, 2024 Offset Duplicating Machine Operator Relationship Specialty Start Date End Date Wale Floyd DO [address] [place] [address] PCP - General Family Medicine 08/26/24 Fang Mayen, LABEL TACKER.CAKE ICER [address] [place] [address] [facility] Medicine 09/16/24 Celena Polanco, LABEL TACKER.CAKE ICER [address] [place] [address] [facility] 12/19/24 Offset Duplicating Machine Operator Relationship Specialty Start Date End Date Wale Floyd DO [address] [place] [address] PCP - General Family Medicine 08/26/24 Fang Mayen, LABEL TACKER.CAKE ICER [address] [place] [address] Recordist Chief Family Medicine 09/16/24 Celena Polanco APRN.CAKE ICER [address] [place] [address] Recordist Chief Family Medicine 12/19/24 Offset Duplicating Machine Operator Relationship Specialty Start Date End Date Wale Floyd DO [address] [place] [address] PCP - General Family Medicine 08/26/24 Fang Mayen, LABEL TACKER.CAKE ICER [address] [place] [address] Recordist Chief Family Medicine 09/16/24 Celena Polanco, LABEL TACKER.CAKE ICER [address] [place] [address] Recordist Chief Family Medicine 12/19/24 Offset Duplicating Machine Operator Relationship Specialty Start Date End Date Wale Floyd DO [address] [place] [address] PCP - General Family Medicine 08/26/24 Fang Mayen, LABEL TACKER.CAKE ICER [address] [place] [address] Recordist Chief Family Medicine 09/16/24 Celena Polanco, LABEL TACKER.CAKE ICER [address] [place] [address] Recordist Chief Family Medicine 12/19/24 Team Status: Active Member Role/Relationship Status Dates Dr. Wale Floyd DO Primary Care Provider Active Team Status: Inactive Member Role/Relationship Status Dates Dr. Art Ureña MD Primary Care Provider Active Start: November 04, 2024 End: November 04, 2024 Elena Dior MD Attending Provider Active Start : November 04, 2024 End: November 04, 2024 Elena Dior MD Referring Provider Active Start : November 04, 2024 End: November 04, 2024 Team Status: Inactive Member Role/Relationship Status Dates Dr. Art Ureña MD Referring Provider Active Start: November 10, 2024 End: November 10, 2024 Dr. Zbigniew Arrington MD Attending Provider Active S tart: November 10, 2024 End: November 10, 2024 Dr. Wale Floyd DO Primary Care Provider Active Start: November 10, 2024 End: November 10, 2024 Team Status: Inactive Member Role/Relationship Status Dates Elena Dior MD Attending Provider Active Start : December 02, 2024 End: December 02, 2024 Elena Dior MD Referring Provider Active Start : December 02, 2024 End: December 02, 2024 Dr. Wale Floyd DO Primary Care Provider Active Start: December 02, 2024 End: December 02, 2024 Team Status: Inactive Member Role/Relationship Status Dates Dr. Wale Floyd DO Primary Care Provider Active Start: December 16, 2024 End: December 16, 2024 Dr. Zbigniew Arrington MD Attending Provider Active S tart: December 16, 2024 End: December 16, 2024 Dr. Zbigniew Arrington MD Referring Provider Active S tart: December 16, 2024 End: December 16, 2024 Team Status: Active Member Role/Relationship Status Dates Dr. Wale Floyd DO Primary Care Provider Active Start: December 16, 2024 Dr. Zbigniew Arrington MD Attending Provider Active S tart: December 16, 2024 Team Status: Active Member Role/Relationship Status Dates Dr. Wale Floyd DO Primary Care Provider Active Start: December 19, 2024 Ana Johnson SENIOR TEST ENGINEER, SENIOR TEST ENGINEER-C Attending Provider Active Start: December 19, 2024 Team Status: Inactive Member Role/Relationship Status Dates Dr. Wale Floyd DO Primary Care Provider Active Start: December 30, 2024 End: December 30, 2024 Elena Dior MD Attending Provider Active Start : December 30, 2024 End: December 30, 2024 Elena Dior MD Referring Provider Active Start : December 30, 2024 End: December 30, 2024 Team Status: Inactive Member Role/Relationship Status Dates Dr. Wale Floyd DO Primary Care Provider Active Start: January 27, 2025 End: January 27, 2025 Elena Dior MD Attending Provider Active Start : January 27, 2025 End: January 27, 2025 Elena Dior MD Referring Provider Active Start : January 27, 2025 End: January 27, 2025 Team Status: Inactive Member Role/Relationship Status Dates Dr. Wale Floyd DO Primary Care Provider Active Start: February 08, 2025 End: February 08, 2025 James Tracey SENIOR TEST ENGINEER, SENIOR TEST ENGINEER-C Attending Provider Active S tart: February 08, 2025 End: February 08, 2025 James Tracey SENIOR TEST ENGINEER, SENIOR TEST ENGINEER-C Referring Provider Active S tart: February 08, 2025 End: February 08, 2025 Team Status: Inactive Member Role/Relationship Status Dates Dr. Wale Floyd DO Primary Care Provider Active Start: February 24, 2025 End: February 24, 2025 Elena Dior MD Attending Provider Active Start : February 24, 2025 End: February 24, 2025 Elena Dior MD Referring Provider Active Start : February 24, 2025 End: February 24, 2025 Offset Duplicating Machine Operator Relationship Specialty Start Date End Date Wale Floyd DO [address] [place], [place] [address] PCP - General Family Medicine 08/26/24 Fang Mayen, LABEL TACKER.CAKE ICER [address] [place] [address] Recordist Chief Family Medicine 09/16/24 Celena Polanco, LABEL TACKER.CAKE ICER [address] [place], [place] [address] [facility] Offset Duplicating Machine Operator Relationship Specialty Start Date End Date Wale Floyd DO [address] [place] [address] PCP - General Family Medicine 08/26/24 Fang Mayen APRN.CAKE ICER [address] [place] [address] Recordist Chief Family Medicine 09/16/24 Celena Polanco, LABEL TACKER.CAKE ICER [address] [place], [place] [address] [facility] 12/19/24 Team Status: Active Member Role/Relationship Status Dates Dr. Wale Floyd DO Primary care physician Active Team Status: Inactive Member Role/Relationship Status Dates Dr. Wale Floyd DO Primary care physician Active Start: December 16, 2024 End: December 16, 2024 Dr. Zbigniew Arrington MD Attending physician Active Start: December 16, 2024 End: December 16, 2024 Dr. Zbigniew Arrington MD Referring Provider Active S tart: December 16, 2024 End: December 16, 2024 Team Status: Active Member Role/Relationship Status Dates Dr. Wale Floyd DO Primary care physician Active Start: December 16, 2024 Dr. Zbigniew Arrington MD Attending physician Active Start: December 16, 2024 Team Status: Active Member Role/Relationship Status Dates Dr. Wale Floyd DO Primary care physician Active Start: December 19, 2024 Ana Johnson SENIOR TEST ENGINEER, SENIOR TEST ENGINEER-C Attending physician Active Start: December 19, 2024 Team Status: Inactive Member Role/Relationship Status Dates Dr. Wale Floyd DO Primary care physician Active Start: December 30, 2024 End: December 30, 2024 Elena Dior MD Attending physician Active Star t: December 30, 2024 End: December 30, 2024 Elena Dior MD Referring Provider Active Start : December 30, 2024 End: December 30, 2024 Team Status: Inactive Member Role/Relationship Status Dates Dr. Wale Floyd DO Primary care physician Active Start: January 27, 2025 End: January 27, 2025 Elena Dior MD Attending physician Active Star t: January 27, 2025 End: January 27, 2025 Elena Dior MD Referring Provider Active Start : January 27, 2025 End: January 27, 2025 Team Status: Inactive Member Role/Relationship Status Dates Dr. Wale Floyd DO Primary care physician Active Start: February 08, 2025 End: February 08, 2025 James Tracey SENIOR TEST ENGINEER, SENIOR TEST ENGINEER-C Attending physician Active Start: February 08, 2025 End: February 08, 2025 James Tracey SENIOR TEST ENGINEER, SENIOR TEST ENGINEER-C Referring Provider Active S tart: February 08, 2025 End: February 08, 2025 Team Status: Inactive Member Role/Relationship Status Dates Dr. Wale Floyd DO Primary care physician Active Start: February 24, 2025 End: February 24, 2025 Elena Dior MD Attending physician Active Star t: February 24, 2025 End: February 24, 2025 Elena Dior MD Referring Provider Active Start : February 24, 2025 End: February 24, 2025 Team Status: Inactive Member Role/Relationship Status Dates Dr. Wale Floyd DO Primary care physician Active Start: March 24, 2025 End: March 24, 2025 Elena Dior MD Attending physician Active Star t: March 24, 2025 End: March 24, 2025 Elena Dior MD Referring Provider Active Start : March 24, 2025 End: March 24, 2025 Team Status: Inactive Member Role/Relationship Status Dates Dr. Wale Floyd DO Primary care physician Active Start: April 03, 2025 End: April 03, 2025 Dr. Chris Paris MD Attending physician Active Start: April 03, 2025 End: April 03, 2025 Dr. Chris Paris MD Referring Provider Active Start: April 03, 2025 End: April 03, 2025 Team Status: Active Member Role/Relationship Status Dates Dr. Wale Floyd DO Primary care physician Active Start: April 03, 2025 Dr. Chris Paris MD Attending physician Active Start: April 03, 2025 Dr. Chris Paris MD Referring Provider Active Start: April 03, 2025 Team Status: Inactive Member Role/Relationship Status Dates Dr. Wale Floyd DO Primary care physician Active Start: January 27, 2025 End: January 27, 2025 Elena Dior MD Attending physician Active Star t: January 27, 2025 End: January 27, 2025 Elena Dior MD Referring Provider Active Start : January 27, 2025 End: January 27, 2025 Team Status: Inactive Member Role/Relationship Status Dates Dr. Wale Floyd DO Primary care physician Active Start: February 08, 2025 End: February 08, 2025 James Tracey SENIOR TEST ENGINEER, SENIOR TEST ENGINEER-C Attending physician Active Start: February 08, 2025 End: February 08, 2025 James Tracey SENIOR TEST ENGINEER, SENIOR TEST ENGINEER-C Referring Provider Active S tart: February 08, 2025 End: February 08, 2025 Team Status: Inactive Member Role/Relationship Status Dates Dr. Wale Floyd DO Primary care physician Active Start: February 24, 2025 End: February 24, 2025 Elena Dior MD Attending physician Active Star t: February 24, 2025 End: February 24, 2025 Elena Dior MD Referring Provider Active Start : February 24, 2025 End: February 24, 2025 Team Status: Inactive Member Role/Relationship Status Dates Dr. Wale Floyd DO Primary care physician Active Start: March 24, 2025 End: March 24, 2025 Elena Dior MD Attending physician Active Star t: March 24, 2025 End: March 24, 2025 Elena Dior MD Referring Provider Active Start : March 24, 2025 End: March 24, 2025 Team Status: Inactive Member Role/Relationship Status Dates Dr. Wale Floyd DO Primary care physician Active Start: April 03, 2025 End: April 03, 2025 Dr. Chris Paris MD Attending physician Active Start: April 03, 2025 End: April 03, 2025 Dr. Chris Paris MD Referring Provider Active Start: April 03, 2025 End: April 03, 2025 Team Status: Inactive Member Role/Relationship Status Dates Dr. Wale Floyd DO Primary care physician Active Start: April 21, 2025 End: April 21, 2025 Elena Dior MD Attending physician Active Star t: April 21, 2025 End: April 21, 2025 Elena Dior MD Referring Provider Active Start : April 21, 2025 End: April 21, 2025 Source Comments (unrecognize d section and content) In the event this informatio n is protected by the Federal Confidentiality of Alcohol and Drug Abuse Patient Records regulations: The Federal rules restrict any use of the information to criminally investigate or prosecute any alcohol or drug abuse patient.[facility] the event this information is protected by the Federal Confidentiality of Alcohol and Drug Abuse Patient Records regulations: The Federal rules restrict any use of the information to criminally investigate or prosecute any alcohol or drug abuse patient.[facility]In the event this information is protected by the Federal Confidentiality of Alcohol and Drug Abuse Patient Records regulations: The Federal rules restrict any use of the information to criminally investigate or prosecute any alcohol or drug abuse patient.[facility]In the event this information is protected by the Federal Confidentiality of Alcohol and Drug Abuse Patient Records regulations: The Federal rules restrict any use of the information to criminally investigate or prosecute any alcohol or drug abuse patient.[facility] the event this information is protected by the Federal Confidentiality of Alcohol and Drug Abuse Patient Records regulations: The Federal rules restrict any use of the information to criminally investigate or prosecute any alcohol or drug abuse patient.[facility] the event this information is protected by the Federal Confidentiality of Alcohol and Drug Abuse Patient Records regulations: The Federal rules restrict any use of the information to criminally investigate or prosecute any alcohol or drug abuse patient.[facility]In the event this information is protected by the Federal Confidentiality of Alcohol and Drug Abuse Patient Records regulations: The Federal rules restrict any use of the information to criminally investigate or prosecute any alcohol or drug abuse patient.[facility] the event this information is protected by the Federal Confidentiality of Alcohol and Drug Abuse Patient Records regulations: The Federal rules restrict any use of the information to criminally investigate or prosecute any alcohol or drug abuse patient.[facility]In the event this information is protected by the Federal Confidentiality of Alcohol and Drug Abuse Patient Records regulations: The Federal rules restrict any use of the information to criminally investigate or prosecute any alcohol or drug abuse patient.[facility] the event this information is protected by the Federal Confidentiality of Alcohol and Drug Abuse Patient Records regulations: The Federal rules restrict any use of the information to criminally investigate or prosecute any alcohol or drug abuse patient.[facility] the event this information is protected by the Federal Confidentiality of Alcohol and Drug Abuse Patient Records regulations: The Federal rules restrict any use of the information to criminally investigate or prosecute any alcohol or drug abuse patient.[facility] the event this information is protected by the Federal Confidentiality of Alcohol and Drug Abuse Patient Records regulations: The Federal rules restrict any use of the information to criminally investigate or prosecute any alcohol or drug abuse patient.[facility] the event this information is protected by the Federal Confidentiality of Alcohol and Drug Abuse Patient Records regulations: The Federal rules restrict any use of the information to criminally investigate or prosecute any alcohol or drug abuse patient.[facility]In the event this information is protected by the Federal Confidentiality of Alcohol and Drug Abuse Patient Records regulations: The Federal rules restrict any use of the information to criminally investigate or prosecute any alcohol or drug abuse patient.[facility]In the event this information is protected by the Federal Confidentiality of Alcohol and Drug Abuse Patient Records regulations: The Federal rules restrict any use of the information to criminally investigate or prosecute any alcohol or drug abuse patient.[facility]In the event this information is protected by the Federal Confidentiality of Alcohol and Drug Abuse Patient Records regulations: The Federal rules restrict any use of the information to criminally investigate or prosecute any alcohol or drug abuse patient.[facility]In the event this information is protected by the Federal Confidentiality of Alcohol and Drug Abuse Patient Records regulations: The Federal rules restrict any use of the information to criminally investigate or prosecute any alcohol or drug abuse patient.[facility]In the event this information is protected by the Federal Confidentiality of Alcohol and Drug Abuse Patient Records regulations: The Federal rules restrict any use of the information to criminally investigate or prosecute any alcohol or drug abuse patient.[facility]In the event this information is protected by the Federal Confidentiality of Alcohol and Drug Abuse Patient Records regulations: The Federal rules restrict any use of the information to criminally investigate or prosecute any alcohol or drug abuse patient.[facility]In the event this information is protected by the Federal Confidentiality of Alcohol and Drug Abuse Patient Records regulations: The Federal rules restrict any use of the information to criminally investigate or prosecute any alcohol or drug abuse patient.[facility]In the event this information is protected by the Federal Confidentiality of Alcohol and Drug Abuse Patient Records regulations: The Federal rules restrict any use of the information to criminally investigate or prosecute any alcohol or drug abuse patient.[facility]In the event this information is protected by the Federal Confidentiality of Alcohol and Drug Abuse Patient Records regulations: The Federal rules restrict any use of the information to criminally investigate or prosecute any alcohol or drug abuse patient.[facility]In the event this information is protected by the Federal Confidentiality of Alcohol and Drug Abuse Patient Records regulations: The Federal rules restrict any use of the information to criminally investigate or prosecute any alcohol or drug abuse patient.[facility]In the event this information is protected by the Federal Confidentiality of Alcohol and Drug Abuse Patient Records regulations: The Federal rules restrict any use of the information to criminally investigate or prosecute any alcohol or drug abuse patient.[facility]In the event this information is protected by the Federal Confidentiality of Alcohol and Drug Abuse Patient Records regulations: The Federal rules restrict any use of the information to criminally investigate or prosecute any alcohol or drug abuse patient.[facility]In the event this information is protected by the Federal Confidentiality of Alcohol and Drug Abuse Patient Records regulations: The Federal rules restrict any use of the information to criminally investigate or prosecute any alcohol or drug abuse patient.[facility]In the event this information is protected by the Federal Confidentiality of Alcohol and Drug Abuse Patient Records regulations: The Federal rules restrict any use of the information to criminally investigate or prosecute any alcohol or drug abuse patient.[facility]hillIn the event this information is protected by the Federal Confidentiality of Alcohol and Drug Abuse Patient Records regulations: The Federal rules restrict any use of the information to criminally investigate or prosecute any alcohol or drug abuse patient.[facility]hillIn the event this information is protected by the Federal Confidentiality of Alcohol and Drug Abuse Patient Records regulations: The Federal rules restrict any use of the information to criminally investigate or prosecute any alcohol or drug abuse patient.[facility] [facility]hillIn the event this information is protected by the Federal Confidentiality of Alcohol and Drug Abuse Patient Records regulations: The Federal rules restrict any use of the information to criminally investigate or prosecute any alcohol or drug abuse patient.[facility]In the event this information is protected by the Federal Confidentiality of Alcohol and Drug Abuse Patient Records regulations: The Federal rules restrict any use of the information to criminally investigate or prosecute any alcohol or drug abuse patient.[facility]hillIn the event this information is protected by the Federal Confidentiality of Alcohol and Drug Abuse Patient Records regulations: The Federal rules restrict any use of the information to criminally investigate or prosecute any alcohol or drug abuse patient.[facility]hillIn the event this information is protected by the Federal Confidentiality of Alcohol and Drug Abuse Patient Records regulations: The Federal rules restrict any use of the information to criminally investigate or prosecute any alcohol or drug abuse patient.[facility]hillIn the event this information is protected by the Federal Confidentiality of Alcohol and Drug Abuse Patient Records regulations: The Federal rules restrict any use of the information to criminally investigate or prosecute any alcohol or drug abuse patient.[facility]hillIn the event this information is protected by the Federal Confidentiality of Alcohol and Drug Abuse Patient Records regulations: The Federal rules restrict any use of the information to criminally investigate or prosecute any alcohol or drug abuse patient.[facility]hillIn the event this information is protected by the Federal Confidentiality of Alcohol and Drug Abuse Patient Records regulations: The Federal rules restrict any use of the information to criminally investigate or prosecute any alcohol or drug abuse patient.[facility]hillIn the event this information is protected by the Federal Confidentiality of Alcohol and Drug Abuse Patient Records regulations: The Federal rules restrict any use of the information to criminally investigate or prosecute any alcohol or drug abuse patient.[facility]hillIn the event this information is protected by the Federal Confidentiality of Alcohol and Drug Abuse Patient Records regulations: The Federal rules restrict any use of the information to criminally investigate or prosecute any alcohol or drug abuse patient.[facility]hillIn the event this information is protected by the Federal Confidentiality of Alcohol and Drug Abuse Patient Records regulations: The Federal rules restrict any use of the information to criminally investigate or prosecute any alcohol or drug abuse patient.[facility]hillIn the event this information is protected by the Federal Confidentiality of Alcohol and Drug Abuse Patient Records regulations: The Federal rules restrict any use of the information to criminally investigate or prosecute any alcohol or drug abuse patient.[facility]hillIn the event this information is protected by the Federal Confidentiality of Alcohol and Drug Abuse Patient Records regulations: The Federal rules restrict any use of the information to criminally investigate or prosecute any alcohol or drug abuse patient.[facility]hillIn the event this information is protected by the Federal Confidentiality of Alcohol and Drug Abuse Patient Records regulations: The Federal rules restrict any use of the information to criminally investigate or prosecute any alcohol or drug abuse patient.[facility]hillIn the event this information is protected by the Federal Confidentiality of Alcohol and Drug Abuse Patient Records regulations: The Federal rules restrict any use of the information to criminally investigate or prosecute any alcohol or drug abuse patient.[facility]hillIn the event this information is protected by the Federal Confidentiality of Alcohol and Drug Abuse Patient Records regulations: The Federal rules restrict any use of the information to criminally investigate or prosecute any alcohol or drug abuse patient.[facility]hillIn the event this information is protected by the Federal Confidentiality of Alcohol and Drug Abuse Patient Records regulations: The Federal rules restrict any use of the information to criminally investigate or prosecute any alcohol or drug abuse patient.[facility]hillIn the event this information is protected by the Federal Confidentiality of Alcohol and Drug Abuse Patient Records regulations: The Federal rules restrict any use of the information to criminally investigate or prosecute any alcohol or drug abuse patient.[facility]hillIn the event this information is protected by the Federal Confidentiality of Alcohol and Drug Abuse Patient Records regulations: The Federal rules restrict any use of the information to criminally investigate or prosecute any alcohol or drug abuse patient.[facility]hillIn the event this information is protected by the Federal Confidentiality of Alcohol and Drug Abuse Patient Records regulations: The Federal rules restrict any use of the information to criminally investigate or prosecute any alcohol or drug abuse patient.[facility]In the event this information is protected by the Federal Confidentiality of Alcohol and Drug Abuse Patient Records regulations: The Federal rules restrict any use of the information to criminally investigate or prosecute any alcohol or drug abuse patient.[facility]hillIn the event this information is protected by the Federal Confidentiality of Alcohol and Drug Abuse Patient Records regulations: The Federal rules restrict any use of the information to criminally investigate or prosecute any alcohol or drug abuse patient.[facility]hillIn the event this information is protected by the Federal Confidentiality of Alcohol and Drug Abuse Patient Records regulations: The Federal rules restrict any use of the information to criminally investigate or prosecute any alcohol or drug abuse patient.[facility]In the event this information is protected by the Federal Confidentiality of Alcohol and Drug Abuse Patient Records regulations: The Federal rules restrict any use of the information to criminally investigate or prosecute any alcohol or drug abuse patient.[facility]hillIn the event this information is protected by the Federal Confidentiality of Alcohol and Drug Abuse Patient Records regulations: The Federal rules restrict any use of the information to criminally investigate or prosecute any alcohol or drug abuse patient.[facility]hillIn the event this information is protected by the Federal Confidentiality of Alcohol and Drug Abuse Patient Records regulations: The Federal rules restrict any use of the information to criminally investigate or prosecute any alcohol or drug abuse patient.[facility]hillIn the event this information is protected by the Federal Confidentiality of Alcohol and Drug Abuse Patient Records regulations: The Federal rules restrict any use of the information to criminally investigate or prosecute any alcohol or drug abuse patient.[facility]hillIn the event this information is protected by the Federal Confidentiality of Alcohol and Drug Abuse Patient Records regulations: The Federal rules restrict any use of the information to criminally investigate or prosecute any alcohol or drug abuse patient.[facility]hillIn the event this information is protected by the Federal Confidentiality of Alcohol and Drug Abuse Patient Records regulations: The Federal rules restrict any use of the information to criminally investigate or prosecute any alcohol or drug abuse patient.[facility]In the event this information is protected by the Federal Confidentiality of Alcohol and Drug Abuse Patient Records regulations: The Federal rules restrict any use of the information to criminally investigate or prosecute any alcohol or drug abuse patient.[facility]In the event this information is protected by the Federal Confidentiality of Alcohol and Drug Abuse Patient Records regulations: The Federal rules restrict any use of the information to criminally investigate or prosecute any alcohol or drug abuse patient.[facility]hillIn the event this information is protected by the Federal Confidentiality of Alcohol and Drug Abuse Patient Records regulations: The Federal rules restrict any use of the information to criminally investigate or prosecute any alcohol or drug abuse patient.[facility]hillIn the event this information is protected by the Federal Confidentiality of Alcohol and Drug Abuse Patient Records regulations: The Federal rules restrict any use of the information to criminally investigate or prosecute any alcohol or drug abuse patient.[facility]hillIn the event this information is protected by the Federal Confidentiality of Alcohol and Drug Abuse Patient Records regulations: The Federal rules restrict any use of the information to criminally investigate or prosecute any alcohol or drug abuse patient.[facility]hillIn the event this information is protected by the Federal Confidentiality of Alcohol and Drug Abuse Patient Records regulations: The Federal rules restrict any use of the information to criminally investigate or prosecute any alcohol or drug abuse patient.[facility]hillIn the event this information is protected by the Federal Confidentiality of Alcohol and Drug Abuse Patient Records regulations: The Federal rules restrict any use of the information to criminally investigate or prosecute any alcohol or drug abuse patient.[facility]hillIn the event this information is protected by the Federal Confidentiality of Alcohol and Drug Abuse Patient Records regulations: The Federal rules restrict any use of the information to criminally investigate or prosecute any alcohol or drug abuse patient.[facility]hillIn the event this information is protected by the Federal Confidentiality of Alcohol and Drug Abuse Patient Records regulations: The Federal rules restrict any use of the information to criminally investigate or prosecute any alcohol or drug abuse patient.[facility]hillIn the event this information is protected by the Federal Confidentiality of Alcohol and Drug Abuse Patient Records regulations: The Federal rules restrict any use of the information to criminally investigate or prosecute any alcohol or drug abuse patient.[facility] [place] Reason for Visit (unrecogniz ed section and content) Reason Comments Spirometry Specialty Diagnoses / Procedures Referred By Contac t Referred To Contact [facility] Diagnoses Asthma, unspecified asthma severity, unspecified whether complicated, unspecified whether persistent Procedures SPIROMETRY WITH DILATOR IF OBSTRUCTED BRNCDILAT RSPSE SPMTRY PRE&POST-BRNCDILAT Shabana Merida MD [address] [place] [address] [facility] [place] [address] [place] [address] Referral ID Status Reason Start Date Expiration Date V isits Requested Visits Authorized [id number] Closed Auto-Generated Referral Patient Cleared - INN Insurance Found 01/16/2023 02/15/2024 1 1 Specialty Diagnoses / Procedures Referred By Contac t Referred To Contact [facility] Diagnoses Asthma, unspecified asthma severity, unspecified whether complicated, unspecified whether persistent Procedures NITRIC OXIDE, EXHALED NITRIC OXIDE GAS DETERMINATION Shabana Ramos MD [address] [facility] [address] [address] Referral ID Status Reason Start Date Expiration Date Visits Requested Visits Authorized [id number] Pending Review Auto-Generat ed Referral 01/16/2023 02/15/2024 1 1 Reason Comments New Patient Asthma Reason Comments Established Patient 4 week follow up Reason Comments Medication Problem Reason Comments Consult IgG levels low, asth ma Specialty Diagnoses / Procedures Referred By Contac t Referred To Contact Allergy Diagnoses Hypogammaglobulinemia (HCC) Procedures CONSULT TO ALLERGY/IMMUNOLOGY OFFICE/OUTPATIENT NEW HIGH MDM 60-74 MINUTES Shabana Ramos MD [address] [facility] [place] [address] Referral ID Status Reason Start Date Expiration Date V isits Requested Visits Authorized [id number] Closed PCP Requested Referral 02/13/2023 02/13/2024 1 1 Reason Comments Injections Specialty Diagnoses / Procedures Referred By Contac t Referred To Contact [facility] Diagnoses Severe persistent asthma without complication Procedures OXIMETRY WITH AMBULATION NONINVASIVE EAR/PULSE OXIMETRY MULTIPLE Barbara Larios PA-C [address] [facility] [address] [address] Referral ID Status Reason Start Date Expiration Date V isits Requested Visits Authorized [id number] Closed Auto-Generate d Referral 05/18/2023 06/16/2024 1 1 Reason Comments Established Patient 3 month follow up Reason Comments Results Follow Up Reason Comments Established Patient Follow up labsDenies any cocnerns Reason Comments Established Patient 3 month follow up as thma Reason Onset Date Comments Refill Request 09/10/2023 Reason Comments new order for tezspire Reason Comments Established Patient 6 month follow up as thma Reason Comments Established Patient F/u visit Reason Comments Sore Throat X 2 days Reason Comments Orders Reason Comments Hospital F/U Specialty Diagnoses / Procedures Referred By Contac t Referred To Contact [facility] Diagnoses Severe persistent asthma without complication Procedures SPIROMETRY - BASELINE AND POST DILATOR BRNCDILAT RSPSE SPMTRY PRE&POST-BRNCDILAT ADMElena Sanchez MD [address] [place] [address] [facility] [place] [address] [place] [id number] Referral ID Status Reason Start Date Expiration Date V isits Requested Visits Authorized [id number] Closed Auto-Generate d Referral 03/16/2024 04/15/2025 1 1 Specialty Diagnoses / Procedures Referred By Contac t Referred To Contact [facility] Diagnoses Severe persistent asthma without complication Procedures NITRIC OXIDE, EXHALED NITRIC OXIDE GAS DETERMINATION Elena Dior MD [address] [place] [address] [address] Referral ID Status Reason Start Date Expiration Date V isits Requested Visits Authorized [id number] Closed Auto-Generate d Referral 03/16/2024 04/15/2025 1 1 Reason Comments Established Patient 5 month follow up Asthma Reason Comments New Patient CARMELLA on Pap Reason Comments Immunodeficiency Established Patient Reason Comments Establish Care Reason Onset Date Comments Refill Request 09/17/2024 Reason Comments Med Change Request Reason Comments New Specialty Diagnoses / Procedures Referred By Contac t Referred To Contact Orthopedics Diagnoses Lipoma of left thigh Intramuscular lipoma Procedures CONSULT TO ORTHOPAEDICS OFFICE/OUTPATIENT NEW HIGH MDM 60 MINUTES Hari Aden MD [address] [place] [address] Phone: tel: fax: Clarence Broderick MD [address] [place] [address] Phone: tel: fax: Referral ID Status Reason Start Date Expiration Date V isits Requested Visits Authorized [id number] Closed PCP Requested Referral 09/19/2024 09/19/2025 1 1 Reason Comments Medication request for MRI appt Reason Comments Consult Specialty Diagnoses / Procedures Referred By Contac t Referred To Contact General Surgery Diagnoses Lipoma of left thigh Procedures CONSULT TO GENERAL SURGERY OFFICE/OUTPATIENT [facility] 60 MINUTES Fang Mayen, JASMEET.[address] [place] [address] Phone: tel: fax: Referral ID Status Reason Start Date Expiration Date V isits Requested Visits Authorized [id number] Closed PCP Requested Referral 08/26/2024 08/26/2025 1 1 Reason Comments Results Reason Onset Date Comments Refill Request 10/31/2024 Reason Comments Derm Problem Has happened 2 x pre vious unsure of where its bleeding from, states from under testicles Reason Onset Date Comments Refill Request 12/19/2024 Reason Comments PA FOR TEZSPIRE Reason Comments Infection Swelling on left rob e of face, possible infection from surgical site. Reason Comments Established Patient Low IGg FOR RECORDS PERTAINING TO PATIENTS WHO ARE [...] BE BASED ON THE PRIMARY CLINICAL RECORDS. [employer] provides no warranty or guarantee of the accuracy or completeness of information in this document.
--- NOTE | 2025-06-29 20:00 | RAD_ITS ---
PROCEDURE: CHEST PA AND LATERAL 06/29/2025 REASON FOR EXAM: COUGH, + FLU TECHNIQUE: Procedure Code: RADCXR Modality: DX Procedure: CHEST PA AND LATERAL COMPARISON: Chest radiograph 01/08/2024. FINDINGS: No focal lung consolidation, pneumothorax, or pleural effusion. Linear opacifications in the lung bases likely reflect platelike atelectasis. The cardiomediastinal silhouette is within normal limits. The richard are within normal limits. Degenerative changes of the thoracic spine. Fusion of the lower cervical spine. RAD/Chest PA and Lateral IMPRESSION: No focal lung consolidation. Reading Location: [id number]
[2025-06-29 20:09] VITALS: PULSE 73; RESP 14
--- NOTE | 2025-06-29 20:40 | EX.ED.DYSGE1 ---
HPI History of Present Illness Chief Complaint: Shortness of Breath Informant: patient and spouse/S.O. Narrative Narrative: Patient is a 74-year-old male with history of asthma, pneumonia, CARMELLA and recent diagnosis of influenza A presenting with worsening cough and sputum production. Patient states he started having a scratchy throat on Thursday, 4 days ago. The following day he developed increased cough and had a flu swab at urgent care. 2 days ago he started taking Tamiflu and has test result came back positive for influenza A. States here she felt pretty good for the past 2 days but then this afternoon started to have worsening cough, sputum production and feeling worse. He has produced a large amount of mucus that is yellow brown-colored. No new fever reported. Is still been intermittently taking Tylenol Cold and flu but has not seemed to help. Is quite concerned because of his history of pneumonia and states this is how it feels like when he gets pneumonia. Came in for further evaluation. Currently does not feel short of breath however his thinks that he is working little harder to breathe than he has been. Notes that he does have a nebulizer at home but has not needed to use in over a year. States his asthma is usually quite well-controlled. [facility] Medical History Kidney stone on left side Wears hearing aid Wears glasses Alcohol use High cholesterol Injury of head and neck Gastric reflux Leg cramps History of edema Cardiology follow-up encounter History of echocardiogram History of stress test Hypertension Non-smoker CPAP (continuous positive airway pressure) dependence COVID-19 Multiple ecchymoses of both upper arms Skin tear of right elbow without complication Hemorrhoids Cataracts, bilateral Atherosclerosis of coronary artery of k[place] heart without angina pectoris History of left heart catheterization Essential hypertension Shortness of breath Bilateral lower extremity edema Cataract Asthmatic bronchitis with acute exacerbation URI (upper respiratory infection) Cough Flu vaccine need Chronic cough Hyperlipidemia Asthma Obesity (BMI 30-39.9) Easy bruising Fatigue Hemorrhoids Arthritis Eosinophilia PND (post-nasal drip) Asthma Epithelial inclusion cyst Pre-diabetes Umbilical hernia Morbid obesity GERD (gastroesophageal reflux disease) BPH (benign prostatic hyperplasia) Chronic sinusitis DDD (degenerative disc disease) Recurrent kidney stones Gout Insomnia CARMELLA (obstructive sleep apnea) Home Medications ?Medication ?Instructions ?Recorded ?Last Taken ?Type multivitamin 1 tab PO DAILY 09/19/20 Unknown History PEP device #1 ea 06/12/22 Unknown Rx trazodone 100 mg tablet 100 mg PO QHS PRN insomnia 90 days 07/16/22 Unknown Rx #40 tabs albuterol sulfate 90 mcg/actuation 2 puff inhalation Q4H PRN 07/17/22 02/17/24 07:30 Rx aerosol inhaler (Ventolin HFA) shortness of breath or wheezing #18 grams albuterol sulfate 2.5 mg/3 mL 2.5 mg (3 mL) inhalation .COMPLEX 09/24/22 02/17/24 07:30 Rx (0.083 %) solution for nebulization Sob &/Or Wheezing #180 mL ipratropium bromide 42 mcg (0.06 1 spray intranasal BID PRN 11/12/22 Unknown History %) nasal spray allergies tezepelumab-ekko 210 mg/1.91 mL 210 mg (1.91 mL) subcut Q4W #1.91 11/28/22 Unknown Rx (110 mg/mL) subcutaneous pen mL injector (Tezspire) loratadine 10 mg tablet 10 mg PO DAILY #90 tabs 02/02/23 Unknown Rx rosuvastatin 5 mg tablet 2.5 mg (1/2 x 5 mg) PO QODAY #90 07/27/23 Unknown Rx tabs fluticasone propionate 50 2 spray intranasal DAILY #3 ea 09/10/23 Unknown Rx mcg/actuation nasal spray,suspension allopurinol 300 mg tablet 300 mg PO DAILY #90 tabs 10/15/23 Unknown Rx lansoprazole 30 mg capsule,delayed 30 mg PO DAILY #90 caps 10/15/23 02/17/24 07:30 Rx release (Prevacid) montelukast 10 mg tablet 10 mg PO QPM #90 tabs 10/15/23 Unknown Rx aspirin 81 mg chewable tablet 81 mg PO .every other day 02/08/24 02/11/24 History ibuprofen 600 mg tablet 600 mg PO Q6H PRN fever or pain 02/08/24 Unknown Rx #20 tabs albuterol sulfate 90 mcg/actuation 2 puff inhalation Q4H PRN PRN 04/09/24 Unknown Rx aerosol inhaler (Ventolin HFA) Wheezing ##1 fluticasone propionate 230 2 puff inhalation Q12H #3 ea 08/23/24 Unknown Rx mcg-salmeterol 21 mcg/actuation HFA inhaler (Advair HFA) irbesartan 150 mg tablet 150 mg PO DAILY #90 tabs 08/23/24 Unknown Rx tamsulosin 0.4 mg capsule 0.8 mg (2 x 0.4 mg) PO QHS #180 08/23/24 Unknown Rx caps tiotropium bromide 1.25 2 puff inhalation DAILY #12 grams 08/23/24 Unknown Rx mcg/actuation mist for inhalation (Spiriva Respimat) albuterol sulfate 2.5 mg/3 mL 2.5 mg (3 mL) inhalation Q4H PRN 06/29/25 Unknown Rx (0.083 %) solution for nebulization #25 vials amoxicillin 875 mg-potassium 875 mg (0.875 x 875-125 mg) PO 06/29/25 Unknown Rx clavulanate 125 mg tablet Q12H #10 TABLETS prednisone 20 mg tablet 40 mg (2 x 20 mg) PO DAILY #8 tabs 06/29/25 Unknown Rx Allergy/AdvReac Type Severity Reaction Status Date / Time lisinopril AdvReac Intermediate cough Verified 06/29/25 19:06 simvastatin AdvReac Intermediate elevated Verified 06/29/25 19:06 liver enzymes Family History Father Cancer Bone Marrow Surgical History Status post laser lithotripsy of ureteral calculus Hx of cervical discectomy Hx of cystoscopy History of coronary artery stent placement History of lumbar discectomy History of uvulectomy History of tonsillectomy History of cataract extraction History of coronary artery stent placement (08/14/22) History of cataract extraction History of tonsillectomy History of uvulectomy History of orthopedic surgery S/P correction of deviated nasal septum Social History household members: spouse housing: house Smoking Status: Former smoker alcohol intake: current alcohol intake frequency: a few times a month Alcohol type: beer and wine substance use type: does not use what type of physical activity do you participate in: none ROS ROS ED Constitutional Constitutional ED: Reports chills; Denies fever(s) ENT ENT ED: Reports other Details: Nasal congestion, hoarse voice Cardiovascular Cardiovascular: Denies chest pain Respiratory/Chest Respiratory/Chest: Reports cough, sputum and other Details: Scattered wheezing ; Denies dyspnea or dyspnea on exertion Gastrointestinal Gastrointestinal: Denies abdominal pain or vomiting Musculoskeletal Musculoskeletal: Reports myalgias; Denies arthralgias Integumentary Denies rash Neurologic Neurologic: Reports weakness Hematologic/Lymphatic Hematologic/Lymphatic: Denies easy bleeding or easy bruising EXAM Physical Exam Const Vital Signs: 06/29/25 19:07 06/29/25 19:25 06/29/25 19:25 Temperature 98.2 F 98.2 F Temperature Source Oral Oral Pulse Rate 82 82 Respiratory Rate 18 18 Respiratory Effort Normal Non-Labored Respiratory Depth Normal Respiratory Pattern Normal Blood Pressure 136/64 H 136/64 H Blood Pressure Mean 88 88 Pulse Ox 97 97 Oxygen Delivery Method Room Air Room Air Room Air 06/29/25 20:09 Temperature Temperature Source Pulse Rate 73 Respiratory Rate 14 Respiratory Effort Respiratory Depth Respiratory Pattern Normal Blood Pressure Blood Pressure Mean Pulse Ox Oxygen Delivery Method Positive well nourished and well developed General Appearance ED: well developed and NAD HEENT Reports TM's clear and moist mucous membranes HEENT Narrative: Normal oropharynx Tympanic Membrane ED: Yes TM's clear Neck no lymphadenopathy, supple and no JVD Chest Wall inspection of chest normal Resp normal respiratory effort Resp Narrative: Slight rhonchi and scattered wheezing noted at the right lung base Auscultation: Negative for rhonchi or wheezes Cardio regular rate, regular rhythm and no murmurs GI normal to inspection, nondistended, normoactive bowel sounds and non-tender GI Narrative: Reducible umbilical hernia palpated, nontender Extremity normal to inspection Extremity Narrative: Trace pretibial edema present. Patient states this is baseline for him Neuro oriented x3 Motor Exam: Negative for general weakness Psych mental status grossly normal Skin no rashes or lesions noted and no wounds MDM MDM MDM Narrative Medical decision making narrative: Patient is a valuated for worsening sputum production and cough in the setting of influenza A. Differential includes progression of his influenza, asthma exacerbation and pneumonia. Patient does have asymmetric breath sounds at the right base it is prudent reducing quite thick sputum in the emergency room. However, he is not hypoxic and has normal vital signs. Is overall quite well-appearing. I do not think he will require admission however will obtain chest x-ray. Chest x-ray viewed by myself as well as radiology does not show any focal infiltrate. Given his breath sounds and history of pneumonia will start him on Augmentin. Also treating for possible secondary asthma exacerbation with prednisone. Will be given a refill for his albuterol solution for his nebulizer. Counseled on using incentive spirometer as his O2 saturation actually went up with ambulatory pulse ox. He states he has 1 at home. Given return precautions. Patient agreeable plan of care. He will continue taking his Tamiflu as well. Discharged home in stable condition. Patient is not have chest pain and does not have inappropriate tachycardia. Low suspicion for complication such as ACS or myocarditis. Radiography Diagnostic Testing: Clinical Impression(s) from Imaging Studies Chest X-Ray 06/29/25 20:00 IMPRESSION: No focal lung consolidation. Reading Location: [facility] Discharge Plan Triage Chief Complaint: Shortness of Breath ED Provider: Melvi Mason Dx/Rx/DC Orders Clinical Impression: Influenza A, Pneumonia, Asthma exacerbation Instructions: ED Bronchitis with Wheezing (Adult), ED Pneumonia (Adult) Prescriptions: New prednisone 20 mg tablet 40 mg PO DAILY Qty: 8 0RF albuterol sulfate 2.5 mg /3 mL (0.083 %) solution for nebulization 2.5 mg inhalation Q4H PRN Qty: 25 0RF Rx Instructions: Use q4 hours and PRN for wheezing amoxicillin-pot clavulanate 875-125 mg tablet 875 mg PO Q12H Qty: 10 0RF No Action multivitamin Tablet 1 tab PO DAILY (DME) PEP device See Rx Instructions .ROUTE .MEDSUPPLY Qty: 1 0RF Rx Instructions: with training Tezspire 210 mg/1.91 mL (110 mg/mL) pen injector 210 mg subcut Q4W Qty: 1.91 12RF ipratropium bromide 42 mcg (0.06 %) spray,non-aerosol 1 spray intranasal BID PRN (Reason: allergies) Rx Instructions: administer into each nostril ibuprofen 600 mg tablet 600 mg PO Q6H PRN (Reason: fever or pain) Qty: 20 0RF aspirin 81 mg Tablet,Chewable 81 mg PO .every other day Patient Comments: every other day albuterol sulfate [Ventolin HFA] 90 mcg/actuation HFA aerosol inhaler 2 puff inhalation Q4H PRN PRN (Reason: Wheezing) Qty: 1 0RF trazodone 100 mg tablet 100 mg PO QHS PRN (Reason: insomnia) 90 Days Qty: 40 1RF albuterol sulfate [Ventolin HFA] 90 mcg/actuation HFA aerosol inhaler 2 puff inhalation Q4H PRN (Reason: shortness of breath or wheezing) Qty: 18 6RF albuterol sulfate 2.5 mg /3 mL (0.083 %) solution for nebulization 2.5 mg inhalation .COMPLEX Qty: 180 11RF Rx Instructions: 2.5 mg inhaled BID; J45.9 Asthma loratadine 10 mg tablet 10 mg PO DAILY Qty: 90 3RF rosuvastatin 5 mg tablet 2.5 mg PO QODAY Qty: 90 3RF fluticasone propionate 50 mcg/actuation spray,suspension 2 spray intranasal DAILY Qty: 3 3RF allopurinol 300 mg tablet 300 mg PO DAILY Qty: 90 3RF lansoprazole [Prevacid] 30 mg capsule,delayed release(DR/EC) 30 mg PO DAILY Qty: 90 3RF montelukast 10 mg tablet 10 mg PO QPM Qty: 90 3RF tamsulosin 0.4 mg capsule 0.8 mg PO QHS Qty: 180 3RF Spiriva Respimat 1.25 mcg/actuation mist 2 puff inhalation DAILY Qty: 12 3RF irbesartan 150 mg tablet 150 mg PO DAILY Qty: 90 3RF Advair HFA 230-21 mcg/actuation HFA aerosol inhaler 2 puff inhalation Q12H Qty: 3 3RF Primary Care Provider: Wale Floyd Referrals: Wale Floyd DO [Primary Care Provider, Medical] Activity Restrictions/Additional Instructions: Your chest x-ray did not show pneumonia today but clinically will treat you like a developing pneumonia. You have also been started on steroids as I suspect you are getting secondary asthma exacerbation from your respiratory infection. Please use your nebulizer at home every 4-6 hours for shortness of breath and coughing episodes. You may continue take [id number] cold and flu medication including Tylenol Cold and flu as well as Mucinex. I do recommend using your incentive spirometer while resting to help your lungs as well. If you continue to feel that you are worsening or develop a fever please return to the emergency room. Print Language: Bulgarian Disposition Disposition: Home, Self Care
[2025-06-29 20:42] VITALS: O2SAT 93
[2025-06-29 20:48] VITALS: BP 139/50; PULSE 110; RESP 22; TEMP 36.6; O2SAT 99
== END 2025-06-29 20:53 | disposition home or self-care (01) ==
PROVIDERS: Emergency Provider Emergency Medicine; PCP Student in an Organized Health Care Education/Training Program; Visit Provider Emergency Medicine
DX: J10.1 Influenza due to other identified influenza virus with other respiratory manifestations (principal); J45.901 Unspecified asthma with (acute) exacerbation; I25.10 Atherosclerotic heart disease of native coronary artery without angina pectoris; J18.9 Pneumonia, unspecified organism; Z87.891 Personal history of nicotine dependence; Z79.82 Long term (current) use of aspirin; Z79.899 Other long term (current) drug therapy
CPT/HCPCS: 71046; 94640; 99283